=== PATIENT | male | born 1945 | race Caucasian/White ===

== ENCOUNTER → 2017-05-28 10:33 | Outpatient (CLI) | payer MEDICARE, OTHER, SELFPAY ==
[2017-05-28 12:15] LABS: AST(SGOT) 23 U/L (15-37); Alanine Aminotransfer ALT/SGPT 21 U/L (16-61); Albumin, Serum 3.7 g/dL (3.2-5.0); Alkaline Phosphatase 186 U/L (45-117); Bilirubin, Direct 0.34 mg/dL (0.00-0.30); Globulin 4.2 g/dL (2.2-4.2); Protein, Total 7.9 g/dL (6.4-8.2); T4 Free Direct 1.34 ng/dL (0.76-1.46); Thyroid Stim Hormone (TSH) 3.48 uIU/mL (0.358-3.74)
== END ==
PROVIDERS: Family Provider Family Medicine; PCP Family Medicine; Visit Provider Nurse Practitioner Family
DX: I48.0 Paroxysmal atrial fibrillation (principal); Z79.899 Other long term (current) drug therapy
CPT/HCPCS: 36415; 80076; 84439; 84443

== ENCOUNTER → 2017-06-06 11:50 | Outpatient (CLI) | payer MEDICARE, OTHER, SELFPAY ==
[2017-06-06 13:19] LABS: Hematocrit 38.3 % (40-54); Hemoglobin 12.6 g/dl (13.0-16.5); Mean Corp Hgb Conc 32.9 g/gl (32-36); Mean Corpuscular Hgb 29.6 pg (27.0-32.0); Mean Corpuscular Volume 89.9 fL (80-94); Mean Platelet Vol. 10.3 fl (6.2-12.0); Platelet Count 148 K/mm3 (150-450); RBC Distribution Width SD 45.6 fl (35.1-43.9); Red Blood Count 4.26 M/mm3 (4.6-6.2); White Blood Count 8.8 K/mm3 (4.4-11.0)
[2017-06-06 13:34] LABS: Scan Indicated on CBC? Y/N NO
[2017-06-06 13:42] LABS: Anion Gap 10 (5-15); BUN 37 mg/dL (7-18); BUN/Creat Ratio 23.1 RATIO (10-20); Calcium,Total 9.5 mg/dL (8.5-10.1); Chloride 95 mmol/L (98-107); EST Glomerular Filtration Rate 45 mL/min (>60); Est Glom Filt Rate - Afr Amer 55 mL/min (>60); Glucose 123 mg/dL (74-106); Potassium 2.9 mmol/L (3.5-5.1); Sodium Level 136 mmol/L (136-145)
[2017-06-06 13:48] LABS: BNP,B-Type NATRIURETIC PEPTIDE 415.2 pg/mL (0-100)
== END ==
PROVIDERS: Family Provider Family Medicine; PCP Family Medicine; Visit Provider Nurse Practitioner Family
DX: I25.5 Ischemic cardiomyopathy (principal); I50.22 Chronic systolic (congestive) heart failure; R06.02 Shortness of breath
CPT/HCPCS: 36415; 80048; 83880; 85027

== ENCOUNTER → 2017-06-11 08:50 | Outpatient (CLI) | payer MEDICARE, OTHER, SELFPAY ==
--- NOTE | 2017-06-11 10:56 | PFT ---
INTRODUCTION: The patient is a 72-year-old male currently under the care of Marky soares NP that presents for pulmonary function testing secondary to a diagnosis of atrial fibrillation. Respiratory therapy reports good patient effort and reports no other concerns. Bronchodilators were used during testing. INTERPRETATION: Forced expiration spirometry demonstrates no evidence of a large airways obstructive ventilatory defect. There was no significant response to aerosolized bronchodilators. Spirogram's are of good quality and plateau normally. Body plethysmography was performed and reveals a decreased TLC to 3.3 L, 58% of predicted, indicative of a severe restrictive ventilatory defect. The remainder of the lung volumes are symmetrically reduced. Diffusing capacity by single breath CO is severely reduced at 39% of predicted. IMPRESSION: These pulmonary function studies demonstrate the presence of a severe restrictive ventilatory defect with a proportionate severe reduction in diffusing capacity. This could be related to an underlying interstitial lung process and/or pulmonary vascular disorder. Dedicated CT chest and echocardiogram should be obtained.
== END ==
PROVIDERS: Family Provider Family Medicine; PCP Family Medicine; Visit Provider Nurse Practitioner Family
DX: I48.0 Paroxysmal atrial fibrillation (principal); I25.810 Atherosclerosis of coronary artery bypass graft(s) without angina pectoris; I10 Essential (primary) hypertension; E78.5 Hyperlipidemia, unspecified; Z79.899 Other long term (current) drug therapy
CPT/HCPCS: 94060; 94726; 94729

== ENCOUNTER → 2017-07-24 09:32 | Outpatient (CLI) | payer MEDICARE, OTHER, SELFPAY ==
[2017-07-24 10:28] LABS: Anion Gap 7 (5-15); BUN 34 mg/dL (7-18); BUN/Creat Ratio 23.8 RATIO (10-20); Calcium,Total 9.1 mg/dL (8.5-10.1); Chloride 104 mmol/L (98-107); Creatinine, Serum 1.43 mg/dL (0.70-1.30); EST Glomerular Filtration Rate 52 mL/min (>60); Est Glom Filt Rate - Afr Amer 63 mL/min (>60); Glucose 80 mg/dL (74-106); Potassium 3.8 mmol/L (3.5-5.1); Sodium Level 138 mmol/L (136-145)
== END ==
PROVIDERS: Family Provider Family Medicine; PCP Family Medicine; Visit Provider Nurse Practitioner Family
DX: I50.22 Chronic systolic (congestive) heart failure (principal); E87.6 Hypokalemia
CPT/HCPCS: 36415; 80048

== ENCOUNTER → 2018-06-24 10:56 | Outpatient (CLI) | payer MEDICARE, OTHER, SELFPAY ==
[2018-06-24 10:06] VITALS: BMI 28.1
[2018-06-24 12:53] LABS: AST(SGOT) 16 U/L (15-37); Alanine Aminotransfer ALT/SGPT 16 U/L (16-61); Albumin, Serum 3.9 g/dL (3.2-5.0); Alkaline Phosphatase 99 U/L (45-117); Anion Gap 7 (5-15); BNP,B-Type NATRIURETIC PEPTIDE 185.8 pg/mL (0-100); BUN 34 mg/dL (7-18); BUN/Creat Ratio 21.7 RATIO (10-20); Bilirubin, Direct 0.25 mg/dL (0.00-0.30); Calcium,Total 8.6 mg/dL (8.5-10.1); Chloride 98 mmol/L (98-107); Cholesterol 150 mg/dL (200); Creatinine, Serum 1.57 mg/dL (0.70-1.30); EST Glomerular Filtration Rate 46 mL/min (>60); Est Glom Filt Rate - Afr Amer 56 mL/min (>60); Globulin 3.8 g/dL (2.2-4.2); Glucose 219 mg/dL (74-106); High Density Lipoprotein 48 mg/dL; Magnesium 1.9 mg/dL (1.6-2.6); Potassium 3.3 mmol/L (3.5-5.1); Protein, Total 7.7 g/dL (6.4-8.2); Sodium Level 136 mmol/L (136-145); Thyroid Stim Hormone (TSH) 2.02 uIU/mL (0.358-3.74); Triglycerides 114 mg/dL; Very Low Density Lipoprotein 23 mg/dL (5-40)
== END ==
PROVIDERS: Family Provider Family Medicine; PCP Family Medicine; Referring Provider Internal Medicine Cardiovascular Disease; Visit Provider Internal Medicine Cardiovascular Disease
DX: I11.0 Hypertensive heart disease with heart failure (principal); I50.22 Chronic systolic (congestive) heart failure; E78.00 Pure hypercholesterolemia, unspecified; Z95.810 Presence of automatic (implantable) cardiac defibrillator
CPT/HCPCS: 36415; 80048; 80061; 80076; 83735; 83880; 84443

== ENCOUNTER → 2018-07-16 | Outpatient (CLI) | payer MEDICARE, OTHER, SELFPAY ==
[2018-06-24 10:06] VITALS: BMI 28.1
[2018-07-16 11:35] LABS: Anion Gap 9 (5-15); BUN 14 mg/dL (7-18); BUN/Creat Ratio 11.6 RATIO (10-20); Calcium,Total 9.1 mg/dL (8.5-10.1); Chloride 102 mmol/L (98-107); Creatinine, Serum 1.21 mg/dL (0.70-1.30); EST Glomerular Filtration Rate 62 mL/min (>60); Est Glom Filt Rate - Afr Amer 76 mL/min (>60); Glucose 138 mg/dL (74-106); Sodium Level 137 mmol/L (136-145)
== END | disposition home or self-care (01) ==
LOC: LAB 10:30
PROVIDERS: Family Provider Family Medicine; PCP Family Medicine; Referring Provider Internal Medicine Cardiovascular Disease; Visit Provider Internal Medicine Cardiovascular Disease
DX: E87.6 Hypokalemia (principal); I50.22 Chronic systolic (congestive) heart failure
CPT/HCPCS: 36415; 80048

== ENCOUNTER → 2018-07-17 | Outpatient (CLI) | payer MEDICARE, OTHER, SELFPAY ==
[2018-06-24 10:06] VITALS: BMI 28.1
--- NOTE | 2018-07-17 07:54 | ECHOCS_ITS ---
Reason For Study: DYSPNEA/SOB Procedure This was a 2D Doppler, Color Flow transthoracic echocardiogram. Exam performed in department. Left Ventricle Normal LV size. Mild concentric left ventricular hypertrophy. The estimated ejection fraction is 45 %. Mild to moderate segmental systolic dysfunction (see wall motion). Stage 2 diastolic dysfunction. Posterior-Basal: Akinetic. Mid-Posterior: Hypokinetic. Basal inferoseptal: Hypokinetic. Mid- inferoseptal : Hypokinetic. The rest of the wall segments are normal. Right Ventricle Normal RV size. ICD or pacer leads identified within the right ventricle. Normal systolic function. Atria The left atrium is mildly enlarged. Normal right atrium. Mitral Valve Normal mitral valve. Tricuspid Valve Normal tricuspid valve. Mild to moderate (1-2+) tricuspid valve insufficiency. Pulmonary artery systolic pressure is 44 mmHg. Mild pulmonary hypertension. Aortic Valve Normal aortic valve. Pulmonic Valve Normal pulmonic valve. Great Vessels Normal aortic root. The pulmonary artery is normal size. Normal inferior vena cava. Pericardium/Pleural No pericardial effusion. Medication 22 gauge I.V. with prn adaptor inserted into right arm. Diluted definity 3.5ml given slow IV push to enhance endocardial definition. MMode/2D Measurements & Calculations LVIDd: 4.7 cm IVSd: 1.2 cm LVOT diam: 2.1 cm LVIDs: 3.6 cm LVPWd: 1.2 cm RVDd: 5.0 cm FS: 23.5 % LVOT area: 3.4 cm2 Ao root diam: 3.3 cm LAV(MOD-bp): 79.0 ml LVAd ap4: 34.3 cm2 LAV(MOD-bp) Indexed: 40.4 ml/m2 EDV(MOD-sp4): 111.1 ml LAV(MOD-sp2): 85.5 ml EDV(sp4-el): 114.7 ml LAV(MOD-sp4): 70.0 ml LVAs ap4: 24.2 cm2 ESV(MOD-sp4): 67.0 ml ESV(sp4-el): 66.5 ml EF(MOD-sp4): 39.7 % EF(sp4-el): 42.0 % SV(MOD-sp4): 44.1 ml SV(sp4-el): 48.2 ml LA A4 area: 22.2 cm2 LA dimension(2D): 5.3 cm RA A4 area: 17.1 cm2 Time Measurements MV dec time: 0.15 sec Doppler Measurements & Calculations MV E max mumtaz: 123.3 cm/sec Lat Peak E' Mumtaz: 6.1 cm/sec Med Peak E' Mumtaz: 5.8 cm/sec MV A max mumtaz: 70.6 cm/sec E/E' lat: 20.3 E/E' med: 21.4 MV E/A: 1.7 Ao V2 max: 243.9 cm/sec LV V1 max: 81.4 cm/sec SV(LVOT): 63.8 ml Ao max P.9 mmHg LV V1 max P.7 mmHg Ao V2 mean: 177.8 cm/sec LV V1 mean P.4 mmHg Ao mean P.0 mmHg LV V1 mean: 55.7 cm/sec Ao V2 VTI: 56.7 cm LV V1 VTI: 18.7 cm GILSON(I,D): 1.1 cm2 GILSON(V,D): 1.1 cm2 PA V2 max: 84.0 cm/sec PI end-d mumtaz: 117.1 cm/sec TR max mumtaz: 328.9 cm/sec TR max P.3 mmHg Interpretation Summary Normal LV size. Mild concentric left ventricular hypertrophy. The estimated ejection fraction is 45 %. Mild to moderate segmental systolic dysfunction (see wall motion). Stage 2 diastolic dysfunction. The left atrium is mildly enlarged. Pulmonary artery systolic pressure is 44 mmHg. Mild pulmonary hypertension. ICD or pacer leads identified within the right ventricle. Compared to prior study, there is no significant change. Ordering Physician: Tien Onofre Referring Physician: INDIGO LEMUS Performed By: Shanice Joiner RDCS
== END | disposition home or self-care (01) ==
LOC: CVS 07:50
PROVIDERS: Family Provider Family Medicine; PCP Family Medicine; Referring Provider Internal Medicine Cardiovascular Disease; Visit Provider Internal Medicine Cardiovascular Disease
DX: I38 Endocarditis, valve unspecified (principal)
CPT/HCPCS: 93306; Q9957; A4216; C8929

== ENCOUNTER 2018-09-19 08:18 | Inpatient (IN) | payer MEDICARE, OTHER, SELFPAY ==
[2018-06-24 10:06] VITALS: BMI 28.1
[2018-09-19] VITALS (14 sets, daily range): BP systolic 118–153; BP diastolic 71–98; PULSE 53–168; RESP 16–22; TEMP 36.6–37; O2SAT 95–98; BMI 29.7; BMI 29.8; BMI 28.8; BMI 28.9
--- NOTE | 2018-09-19 08:27 | EKG12_ITS ---
Test Reason : AM EKG Blood Pressure : / mmHG Vent. Rate : 093 BPM Atrial Rate : 258 BPM P-R Int : 000 ms QRS Dur : 126 ms QT Int : 402 ms P-R-T Axes : 000 -10 118 degrees QTc Int : 499 ms Atrial fibrillation with premature ventricular or aberrantly conducted complexes Non-specific intra-ventricular conduction block Inferior infarct (cited on or before 20-OCT-2016) Abnormal ECG When compared with ECG of 21-OCT-2016 05:25, Atrial fibrillation has replaced Sinus rhythm Vent. rate has increased BY 38 BPM Nonspecific T wave abnormality no longer evident in Anterior leads Confirmed by SAROJ SANCHEZ, UBALDO ([id number]), food editor ANIA SALAS ([id number]) on 09/23/2018 8:08:25 AM Referred By: QI Confirmed By:UBALDO KYLE MD
--- NOTE | 2018-09-19 08:27 | RAD_ITS ---
STUDY: X-RAY CHEST REASON FOR EXAM: Male, 73 years old. TECHNIQUE: 2 views COMPARISON: October 21, 2016 FINDINGS: The heart is mildly enlarged. There is bilateral pleural effusion more than seen before. Minimal linear atelectasis is noted in the right lower lung field. The upper lung suarez are clear. A permanent pacemaker is noted with single lead in position. Multiple metallic stitches along the sternum from previous surgery. No evidence of pneumothorax noted. The visualized bones are osteoporotic to some extent. RAD/Chest PA and Lateral IMPRESSION: Mild cardiomegaly with minimal bilateral pleural effusion. No significant change noted since the previous study. Electronically Signed: Philip Nolan, at 9:36 EDT Tel , Service support ,
--- NOTE | 2018-09-19 08:45 | ED.VISSUMM ---
- ER Visit Summary Date of Service: 09/19/18 Chief Complaint: Dyspnea History of Present Illness: The patient is a 73 M who presents emergency department via EMS with complaint of dyspnea. This is been progressive for the past several days. He notes a cough with clear to yellow phlegm. He states that he had this before and is always gotten a Z-Isauro from his primary care physician. However for the past 6 months he has been okay. He notes his had coronary artery bypass surgery. He denies a history of atrial fibrillation. (The patient has been on amiodarone in the past and carries a diagnosis of paroxysmal atrial fibrillation). Today he was going to go fishing but found that he could not walk down the hallway to his garage without having to stop and catch his breath. He denies any fevers. He states that night he has been sitting in front of the window and believes he has pneumonia. Non-smoker. Last echocardiogram in June 2018 showed ejection fraction 45%. He is on Plavix. He ran out of his metolazone. Physical Examination: Afebrile 98.4 heart rate 104 respirations are 18 pulse ox 93% on room air blood pressure 142/98 Gen: Well-nourished well-developed Head: Normocephalic atraumatic Eyes: Perrl EOMI ENT: TMs clear no rhinorrhea moist mucous membranes Neck: Supple no lymphadenopathy no JVD nontender CVS: Irregularly irregular tachycardic rhythm no murmurs normal S1-S2 Respiratory: No distress clear to auscultation bilaterally chest nontender Abdomen: Soft nontender nondistended normal bowel sounds no masses Back: Nontender Skin: Normal color no rash Extremity: Nontender 1+ lower extremity symmetric edema Neuro: alert orientated ?3 CN II-XII intact normal strength sensation Psych: Normal affect normal mood Test Results: EKG shows atrial fibrillation at a rate of 110 without concerning features of ACS or ectopy. Beta [place] peptide is mildly elevated in the 200s. Chest x-ray showed some significant chronic changes possibly new pulmonary congestion. Troponin is 0.09. CT Penelope of the chest is negative for pulmonary embolism. Emergency Department Course and Treatment: Patient has received IV Lasix. I found some documentation that he was in a normal sinus rhythm and somewhere he is in A. fib. I suspect that he has found himself in atrial fibrillation now out of his metolazone which is resulted in heart failure. Given his A. fib with RVR and evidence of heart failure and his tachypnea plan will be admission for diuresis. Impression: 1. Congestive heart failure 2. Paroxysmal atrial fibrillation This note was generated with [employer] dictation software. It may contain incorrect words, spelling, and punctuation that were not noted in review of the chart prior to signing ED Disposition - Plan for ED Patient: Referrals: Pedro Luis Shin MD [Primary Care Provider] -
[2018-09-19 08:56] LABS: Absolute Lymphocyte Count 0.62 X10^3/ul (0.83-4.51); Absolute Neutrophil Count 7.5 X10^3/uL (2.0-7.7); Basophil# 0.02 X10^3/uL; Basophil% 0.2 % (0-1); Eosinophil# 0.11 X10^3/uL; Eosinophils% 1.3 % (0-5); Hematocrit 37.8 % (40-54); Hemoglobin 13.1 g/dl (13.0-16.5); Lymphocyte # 0.62 X10^3/ul (4.0); Lymphocyte % 7.1 % (19-41); Mean Corp Hgb Conc 34.7 g/gl (32-36); Mean Corpuscular Hgb 31.6 pg (27.0-32.0); Mean Corpuscular Volume 91.1 fL (80-94); Mean Platelet Vol. 10.4 fl (6.2-12.0); Monocyte# 0.51 X10^3/uL; Monocyte% 5.8 % (0-10); Neutrophil # 7.51 X10^3/uL (2.7-7.7); Neutrophil % 85.4 % (47-70); Platelet Count 174 K/mm3 (150-450); RBC Distribution Width CV 13.4 % (11.6-14.6); RBC Distribution Width SD 43.8 fl (35.1-43.9); Red Blood Count 4.15 M/mm3 (4.6-6.2); White Blood Count 8.8 K/mm3 (4.4-11.0)
[2018-09-19 08:57] LABS: POSITIVE COUNT NO; POSITIVE DIFFERENTIAL NO; POSITIVE MORPHOLOGY NO
[2018-09-19 09:14] LABS: BUN 24 mg/dL (7-18); Creatinine, Serum 1.16 mg/dL (0.70-1.30); Estimated Creatinine Clearance 54.87 ml/min; Glucose 186 mg/dL (74-106)
[2018-09-19 09:15] LABS: ALB/GLOB Ratio 0.9 RATIO (0.9-2.4); AST(SGOT) 25 U/L (15-37); Alanine Aminotransfer ALT/SGPT 15 U/L (16-61); Albumin, Serum 3.5 g/dL (3.2-5.0); Alkaline Phosphatase 76 U/L (45-117); Anion Gap 4 (5-15); BUN/Creat Ratio 20.7 RATIO (10-20); Calcium,Total 8.8 mg/dL (8.5-10.1); Chloride 105 mmol/L (98-107); EST Glomerular Filtration Rate 66 mL/min (>60); Est Glom Filt Rate - Afr Amer 79 mL/min (>60); Globulin 3.9 g/dL (2.2-4.2); Potassium 4.7 mmol/L (3.5-5.1); Protein, Total 7.4 g/dL (6.4-8.2); Sodium Level 135 mmol/L (136-145)
--- NOTE | 2018-09-19 10:00 | CT_ITS ---
STUDY: CTA CHEST REASON FOR EXAM: Male, 73 years old. Dyspnea. RADIATION DOSAGE (If Supplied By Facility): CTDIvol = ( 17.22 ) mGy, DLP = ( 505.37 ) mGycm TECHNIQUE: The examination was performed with the intravenous administration of 100 IV Isovue 300. Post-processing of the angiographic images was performed, with multiplanar reformation and 3D reconstruction. Individualized dose optimization techniques were used for this CT. COMPARISON: September 16, 2015. FINDINGS: HEART: Cardiomegaly. Cardiac device. Coronary artery disease/stenting. CABG. Median sternotomy. Asymmetric left jugular vein. Mild element of right heart failure with of contrast reflux into the hepatic IVC and hepatic veins. AORTA/GREAT VESSELS: Adequate contrast enhancement. No aortic dissection. No aortic aneurysm. PULMONARY ARTERIES: Adequate contrast enhancement. No acute pulmonary embolism. No pulmonary arterial hypertension. LUNGS/AIRWAYS: Extensive areas of atelectasis/scarring. Left apex granuloma. Pulmonary vascular congestion with areas of air trapping. Rounded right lung base airspace disease (axial image 64 series 2) with region of interest measuring approximately 5.5 cm. Small bilateral pleural effusions. No pneumothorax. Left pleural calcifications. No additional suspicious lung nodules given the extensive parenchymal disease. MEDIASTINUM/THYROID: No pneumomediastinum. Normal thyroid. Enlarged right paratracheal lymph node measuring 1.6 cm (axial image 188 series 2). Enlarged prevascular lymph nodes measuring up to 1.8 cm (axial image 155). Additional mediastinal lymph nodes. SOFT TISSUES: No acute process. Left shoulder lipoma (axial image 219 series 2 and coronal image 150 series 601). OSSEOUS STRUCTURES: Diffuse mild osteopenia. No acute fracture. No dislocation. UPPER ABDOMEN/ESOPHAGUS: Stable left adrenal nodule measuring 1.7 cm (axial image 4 series 2). Pancreatic atrophy. Hepatic steatosis. No focal hepatic lesions. CT/CTA Chest W/WO Contrast IMPRESSION: No acute pulmonary embolism, aortic dissection or aortic aneurysm Right heart failure with mild CHF/fluid overload Cardiomegaly with cardiovascular disease, cardiac surgery and cardiac device Nonspecific enlarged mediastinal lymph nodes (correlate medical history) Small bilateral pleural effusions with left pleural calcifications (correlate prior infectious/inflammatory pleural process) Indeterminant rounded right lower lung airspace disease measuring up to 5.5 cm (suspected rounded atelectasis versus potential neoplasm; short-term [address] recommended to document resolution) Electronically Signed: Mando Cho DO at 13:01 EDT Tel , Service support ,
[2018-09-19 11:04] LABS: BNP,B-Type NATRIURETIC PEPTIDE 218.6 pg/mL (0-100)
[2018-09-19] MEDS: Furosemide 100 MG/10 ML Vial 80 MG IV (13:27)
--- NOTE | 2018-09-19 13:43 | HP.PCM_ITS ---
History of Present Illness Date of Admission: 09/19/18 Chief Complaint: Dyspnea The patient is a 73 y/o M w/ PMHx: PAF, CAD s/p PCI s/p JOSE ENRIQUE-SVG-D1 09/20/15 @ [facility], LHC X 3 stents @ [facility] 02/14 Proximal mid & distal SVG to first DX of LAD; CABG x3 EASLEY to LAD, SVG to the LCX, SVG to the RCA 1998, HTN, HLD, Chronic Systolic CHF, Ischemic Cardiomyopathy s/p AICD for history of VT, Diabetes mellitus type II, EtOH Abuse who presents to the [facility] ED on 09/19/18 with history of running out of his metolazone to proximal he 3 days prior, noting that he actually throughout a prescription with noted sensation of onset palpitations intermittently over the last 3 days, progressively worsening dyspnea, increased lower extremity edema as well as onset of orthopnea. Work-up in the ED included T 98.4, heart rate initially 104 with improvement 72, BP 142/98, respiratory rate 20, 95% on 2 L nasal cannula, CBC with WBC 8.8, hemoglobin 13.1, platelet 174 with mild left shift, CMP with sodium 134, BUN/Cr 24/1.16, glucose 186, trop 0.095, BNP 218.6, chest x-ray with mild cardiomegaly with minimal bilateral pleural effusions noted, CTPA w/ no acute evidence of pulmonary emboli, aortic dissection or aortic aneurysm with right heart failure with mild CHF fluid overload status with cardiomegaly with cardiovascular disease and evidence of prior cardiac surgery as well as cardiac device, nonspecific enlarged mediastinal lymph nodes, small bilateral pleural effusions with left pleural calcifications, indeterminate rounded right lower lung airspace disease measuring up to 5.5 cm suspected round atelectasis versus potential neoplasm. In the ED patient ministered Lasix 80 mg IV x1. Past Medical History Past Medical History (Chronic Problems): Chronic Problems (Last Updated 07/17/18 @ 17:10 by Sarika Bridges) Essential (primary) hypertension (Chronic) Non-rheumatic tricuspid valve insufficiency (Chronic) Secondary pulmonary arterial hypertension (Chronic) Ischemic cardiomyopathy (Chronic) half-way current use of amiodarone (Chronic) Paroxysmal atrial fibrillation (Chronic) Atherosclerosis of coronary artery bypass graft without angina pectoris (Chronic) [id number] 09/20/15 @ [facility], [facility] X 3 stents @ [facility] 02/14: Proximal mid & distal SVG to first DX of LAD; CABG x3 EASLEY to LAD, SVG to the LCX, SVG to the RCA 1997 Chronic systolic congestive heart failure (Chronic) Ventricular tachycardia (Chronic) HLD (hyperlipidemia) (Chronic) ICD (implantable cardioverter-defibrillator) in place (Chronic) 03/20/12 Implantation of cardiac defibrillator for V-tach NSTEMI (non-ST elevated myocardial infarction) (Chronic) Non-ST OK April 2012 & August 2015 Medical History: Medical History (Last Updated 07/17/18 @ 17:10 by Sarika Bridges) Essential (primary) hypertension (Chronic) I10 Non-rheumatic tricuspid valve insufficiency (Chronic) I36.1 Secondary pulmonary arterial hypertension (Chronic) I27.21 Ischemic cardiomyopathy (Chronic) 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, [facility] X 3 stents @ [facility] 02/14: Proximal mid & distal SVG to first DX of LAD; CABG x3 EASLEY to LAD, SVG to the LCX, SVG to the RCA 1997 Chronic systolic congestive heart failure (Chronic) I50.22 Ventricular tachycardia (Chronic) I47.2 HLD (hyperlipidemia) (Chronic) E78.5 ICD (implantable cardioverter-defibrillator) in place (Chronic) Z95.810 03/20/12 Implantation of cardiac defibrillator for V-tach NSTEMI (non-ST elevated myocardial infarction) (Chronic) I21.4 Non-ST OK April 2012 & August 2015 Alcohol abuse F10.10 GERD (gastroesophageal reflux disease) K21.9 RITESH (obstructive sleep apnea) G47.33 Peripheral vascular disease I73.9 Type 2 diabetes mellitus E11.9 Alcohol abuse (Inactive) F10.10 Atrial fibrillation (Inactive) I48.91 CAD (coronary artery disease) (Inactive) I25.10 Cardiac dysrhythmia (Inactive) I49.9 Cardiomyopathy (Inactive) I42.9 Congestive heart failure (Inactive) I50.9 GERD (gastroesophageal reflux disease) (Inactive) K21.9 Pleural effusion (Inactive) J90 Sleep apnea (Inactive) G47.30 Allergies lisinopril Adverse Reaction (Verified 09/19/18 08:23) cough Home Medications: Ambulatory Orders Medication Instructions Recorded Insulin Detemir [Levemir FlexPen] 4 units SC QHS 02/16/16 omeprazole 20 mg capsule,delayed 20 mg PO DAILY PRN 05/28/17 release magnesium oxide 400 mg (241.3 mg 400 mg PO DAILY #90 tab 11/21/17 magnesium) tablet metoprolol succinate ER 50 mg 50 mg PO BID #180 tab 01/17/18 tablet,extended release 24 hr atorvastatin 80 mg tablet 80 mg PO QHS #90 tab 04/16/18 potassium chloride ER 20 mEq 60 meq PO DAILY #90 tab 06/24/18 tablet,extended release clopidogrel 75 mg tablet 75 mg PO DAILY #90 tab 09/01/18 metolazone 2.5 mg tablet 2.5 mg PO DAILY PRN #30 tab 09/17/18 Amlodipine Besylate [Norvasc] 5 mg PO DAILY 09/19/18 Aspirin [Aspir-Low] 81 mg PO DAILY 09/19/18 Furosemide [Lasix] 40 mg PO SUMOWEFRSA 09/19/18 Insulin Glargine,Hum.rec.anlog 22 unit SQ DAILY 09/19/18 [Basaglar Kwikpen U-100] Losartan Potassium [Cozaar] 25 mg PO DAILY 09/19/18 Surgical History: Surgical History (Last Updated 07/17/18 @ 17:10 by Sarika Bridges) History of coronary artery stent placement (Resolved) Onset Date: 01/2016 Z95.5 [id number] 09/20/15 @ [facility], Proximal mid & distal SVG to first D2 01/2016 H/O coronary artery bypass surgery (Resolved) Onset Date: 1997 Z95.1 CABG x3 EASLEY to LAD, SVG to the LCX, SVG to the RCA 1997 History of thoracentesis Z98.890 Hx of CABG (Inactive) CABG X 3 vessels 1997, Dr. Grider, EASLEY to LAD, SVG to LCX, SVG to RCA S/P PTCA (percutaneous transluminal coronary angioplasty) (Inactive) Z98.61 [id number] 09/20/15 @ [facility], [facility] X 3 stents @ [facility] 02/14: Proximal mid & distal SVG to first DX of LAD Surgical History: angioplasty, coronary bypass surgery, pacemaker implantation, - - AICD. Psychiatric History: No pertinent psych hx Lives: Spouse/ Significant Other Smoking Status: Never smoker Tobacco Use: Non-smoker Alcohol: Heavy - Per report history of alcohol abuse, patient notes only social drinking. Drugs: None - *Family History Paternal History Items: - - Patient notes that his father passed from complications secondary to from description ruptured AAA. Maternal History Items: - - Patient notes a maternal family history of possibly com plications from brain aneurysm but unclear. Review of Systems Constitutional: Reports: Malaise, Weakness, Fatigue. Denies: Chills, Fever, Weight Change HEENT: Denies: Head Aches, Sinus Congestion, Sinus Drainage Cardiovascular: Reports: Edema, Orthopnea, Palpitations. Denies: Chest Pain, Chest Pressure, Chest Tightness, Light Headedness Respiratory: Reports: Cough, Shortness of Breath, Shortness of breath at rest, Shortness of breath upon exertion. Denies: Sputum production Gastrointestinal: Denies: Abdominal Pain, Nausea, Vomiting Genitourinary: Denies: Dysuria Musculoskeletal: Reports: Joint Pain. Denies: Joint Tenderness Skin: Denies: Rash, Wounds Neurological: Denies: Numbness, Tingling, Focal weakness Psychiatric: Denies: Anxiety, Depression, Homicidal Ideations, Suicidal Ideations Hematologic/ Lymphatic: Reports: Anemia, Easy Bruising, Easy Bleeding VTE Information - Inpt Only VTE Present on Admission: No VTE Mechan Device Prophylaxis: SCD's VTE Pharm Prophylaxis ordered?: Yes Subjective: Seated upright in ED bed, fatigued appearance, notes improved since initial presentation status post IV Lasix administration. Objective: Physical Examination: General: awake, alert, oriented x 3 and cooperative, seated upright in the ED bed, fatigued appearance, notes feeling improved since initial presentation. Skin: normal color, turgor, no icterus, cyanosis, occasional very staged ecchymoses to the extremities. HEENT: AT/NC, EOMI, PERRLA, MMM, no carotid bruits, + JVD noted. Lungs: Diminished breath sounds throughout, greater bilateral bases, improving effort status post initiation of diuresis, notable rales bases to midlung bilaterally, no wheezing. Heart: Irregular, rate controlled; no gallop, rub audible. Abdomen: soft, overweight, NTTP, ND, normal BS, no HSM. Extremities: no cyanosis, clubbing, bilateral lower extremity ankle to proximal juarez pitting edema. Neurological: patient awake, alert, oriented x 3; cognitive function intact; pupils equally reactive to light and accomodation; cranial nerves II-XII grossly normal, moving all 4 extremities, no focal deficits, strength moderately to severely global decrease secondary to acute presentation. Psychiatric: affect appears fatigued, no acute evidence of depressive or anxiety feelings. - Physical Exam Vital Signs Temp Pulse Resp BP Pulse Ox 98.4 F 72 16 144/86 H 95 09/19/18 08:18 09/19/18 13:00 09/19/18 13:00 09/19/18 13:00 09/19/18 13:00 Oxygen Flow Rate (L/min) 2 Oxygen Delivery Method Nasal Cannula Weight: 195 lb 14.4 oz Body Mass Index (BMI) 29.7 Laboratory Tests Past 24 Hrs 09/19/18 09/19/18 09/19/18 08:45 08:45 08:45 WBC 8.8 RBC 4.15 L Hgb 13.1 Hct 37.8 L MCV 91.1 MCH 31.6 MCHC 34.7 RDW 13.4 RDW Differential 43.8 Plt Count 174 MPV 10.4 Immature Gran % (Auto) 0.200 Neut % (Auto) 85.4 H Lymph % (Auto) 7.1 L Hendricks % (Auto) 5.8 Eos % (Auto) 1.3 Baso % (Auto) 0.2 Absolute Neuts (auto) 7.5 Absolute Lymphs (auto) 0.62 L Total Counted Not Reportable Sodium 135 L Potassium 4.7 Chloride 105 Carbon Dioxide 26.0 Anion Gap 4 L BUN 24 H Creatinine 1.16 Estim Creat Clear Calc 54.87 Est GFR (MDRD) Af Amer 79 Est GFR (MDRD) Non-Af 66 BUN/Creatinine Ratio 20.7 H Glucose 186 H Calcium 8.8 Total Bilirubin 1.10 H AST 25 ALT 15 L Alkaline Phosphatase 76 Troponin I 0.095 H B-Natriuretic Peptide 218.6 H Total Protein 7.4 Albumin 3.5 Globulin 3.9 Albumin/Globulin Ratio 0.9 Assessment/Plan All Active Problems (Last Updated 07/17/18 @ 17:10 by Sarika Bridges) History of coronary artery stent placement (Resolved 01/2016) H/O coronary artery bypass surgery (Resolved 1997) The patient is a 73 y/o M w/ PMHx: PAF, CAD s/p PCI s/p JOSE ENRIQUE-SVG-D1 09/20/15 @ [facility], LHC X 3 stents @ [facility] 02/14 Proximal mid & distal SVG to first DX of LAD; CABG x3 EASLEY to LAD, SVG to the LCX, SVG to the RCA 1997, HTN, HLD, Chronic Systolic CHF, Ischemic Cardiomyopathy s/p AICD for history of VT, Diabetes mellitus type II, EtOH Abuse who presents to the [facility] ED on 09/19/18 with history of running out of his metolazone to proximal he 3 days prior, noting that he actually throughout a prescription with noted sensation of onset palpitations intermittently over the last 3 days, progressively worsening dyspnea, increased lower extremity edema as well as onset of orthopnea. (1) Acute Decompensated Systolic CHF w/ Ischemic Cardiomyopathy: Work-up in the ED included T 98.4, heart rate initially 104 with improvement 72, BP 142/98, respiratory rate 20, 95% on 2 L nasal cannula, CBC with WBC 8.8, hemoglobin 13.1, platelet 174 with mild left shift, CMP with sodium 134, BUN/Cr 24/1.16, glucose 186, trop 0.095, BNP 218.6, chest x-ray with mild cardiomegaly with minimal bilateral pleural effusions noted, CTPA w/ no acute evidence of pulmonary emboli, aortic dissection or aortic aneurysm with right heart failure with mild CHF fluid overload status with cardiomegaly with cardiovascular disease and evidence of prior cardiac surgery as well as cardiac device, nonspecific enlarged mediastinal lymph nodes, small bilateral pleural effusions with left pleural calcifications, indeterminate rounded right lower lung airspace disease measuring up to 5.5 cm suspected round atelectasis versus potential neoplasm. Patient administered IV lasix in the ED, will admit to PCU, maintain on cardiac telemetry obtain cardiac enzyme series, obtain serial EKGs, continue IV lasix diuresis, monitor I/Os, maintain on intake restriction, continue medical therapy w/ asa, statin, BB, ARB as well as noted IV Lasix with metolazone. Will obtain TSH and magnesium level. Most recent ECHO noted 07/17/18. Cardiology consulted, pending. PRN morphine to decrease afterload, continue oxygen supplementation, if necessary will position w/ upright position with legs off bed to decrease preload. (2) PAF: Patient normally in sinus rhythm, now in atrial fibrillation, rate con trolled, possible onset per patient discussion with onset of dyspnea and decompensated CHF is noted, cardiology consulted, pending, continue home regimen metoprolol regimen. Not anticoagulated, maintained as noted on aspirin and Plavix, unclear specific reason, given presentation and high chads score will place on therapeutic Lovenox pending cardiology evaluation. (3) CAD: CAD s/p PCI s/p JOSE ENRIQUE-SVG-D1 09/20/15 @ [facility], C X 3 stents @ [facility] 02/14 Proximal mid & distal SVG to first DX of LAD; CABG x3 EASLEY to LAD, SVG to the LCX, SVG to the RCA 1998, continue home aspirin, Plavix, statin, metoprolol, losartan. (4) Hypertension: Continue home regimen including Norvasc, losartan, metoprolol, metolazone, IV Lasix as noted, PRN hydralazine. (5) Hyperlipidemia: Continue home statin regimen. AM FLP. (6) Diabetes mellitus type II: Hold oral home regimen, continue home insulin regimen, ADA diet, accu checks w/ ISS. (7) Possible alcohol abuse: Patient notes only occasional intake however chart clearly states alcohol abuse history. Will maintain on CIWA protocol, MVI, thiamine and folic acid. Will obtain alcohol level and urine drug screen. (8) Diabetes mellitus type II: Hold oral home regimen, continue home insulin regimen, ADA diet, accu checks w/ ISS. (9) Hx VT: Concurrent history of reduced EF, ischemic cardia myopathy, status post AICD placement. (10) GERD: PPI. (11) RITESH: CPAP q HS. (12) DVT prophylaxis: SCDs, given atrial fibrillation with acute CHF exacerbation will administer therapeutic Lovenox pending cardiology evaluation. With alcohol abuse history possibly had been greater risk than benefit. (13) CODE status: Discussed CODE status at length including difference between FULL code, DNR-CCA and DNR-CC status. Following discussions about the differences in these status, requested Full Code status. Advanced Care Planning Face to Face Time: 16 minutes. Code Visit Inpatient E&M: 15450 Init Hosp L3 Procedures: 96439 Advncd Care Plan 30 Min
[2018-09-19 18:04] LABS: Magnesium 1.6 mg/dL (1.6-2.6); Phosphorus 2.5 mg/dL (2.5-4.9); Thyroid Stim Hormone (TSH) 1.61 uIU/mL (0.358-3.74)
[2018-09-19 19:11] LABS: Bedside Glucose 252 mg/dL (70-110)
[2018-09-19] MEDS: Insulin Lispro 100 UNIT/ML INSULN.PEN SC ×2 (19:12→22:44)
[2018-09-19] MEDS: Thiamine Hydrochloride 100 MG Tablet PO (19:15)
[2018-09-19] MEDS: Enoxaparin 100 MG/ML Syringe 90 MG SC (19:15)
--- NOTE | 2018-09-19 20:40 | NURSING ---
Pt refusing pacer pads at this time.
--- NOTE | 2018-09-19 22:12 | CPS ---
PT REFUSED CPAP.
[2018-09-19] MEDS: Furosemide 40 MG/4 ML Vial IV (22:45)
[2018-09-19] MEDS: Atorvastatin Calcium 80 MG Tablet PO (22:47)
[2018-09-19] MEDS: Metoprolol(XL)Succ 50 MG Tablet PO (22:47)
[2018-09-19] MEDS: 0.9% NaCl Peripheral Flush Adult/Peds IV ×2 (22:48→22:54)
[2018-09-19 23:15] LABS: Bedside Glucose 195 mg/dL (70-110)
[2018-09-20] VITALS (15 sets, daily range): BP systolic 116–130; BP diastolic 47–89; PULSE 77–122; RESP 16–20; TEMP 36.3–36.9; O2SAT 95–97
[2018-09-20 01:49] LABS: Amphetamine Urine VISTA NEGATIVE (<1000 ng/mL); Barbiturate Urine VISTA NEGATIVE (< 200 ng/mL); Benzodiazepine Urine VISTA NEGATIVE (< 200 ng/mL); Cocaine Urine VISTA NEGATIVE (< 300 ng/mL); Ecstacy Urine VISTA NEGATIVE (< 500 ng/mL); Methadone Urine VISTA NEGATIVE (< 300 ng/mL); PCP Urine VISTA NEGATIVE (< 25 ng/mL); THC Urine VISTA NEGATIVE (< 50 ng/mL); Vista UDS pH Range 5
[2018-09-20] MEDS: 0.9% NaCl Peripheral Flush Adult/Peds IV ×4 (05:02→22:03)
[2018-09-20] MEDS: Enoxaparin 100 MG/ML Syringe 90 MG SC ×2 (05:03→17:59)
[2018-09-20] MEDS: Furosemide 40 MG/4 ML Vial IV ×3 (05:03→22:02)
[2018-09-20 07:10] LABS: Bedside Glucose 143 mg/dL (70-110)
[2018-09-20 07:20] LABS: Absolute Lymphocyte Count 0.68 X10^3/ul (0.83-4.51); Absolute Neutrophil Count 6.6 X10^3/uL (2.0-7.7); Basophil# 0.02 X10^3/uL; Basophil% 0.2 % (0-1); Eosinophil# 0.21 X10^3/uL; Eosinophils% 2.6 % (0-5); Hematocrit 38.5 % (40-54); Hemoglobin 13.1 g/dl (13.0-16.5); Lymphocyte # 0.68 X10^3/ul (4.0); Lymphocyte % 8.3 % (19-41); Mean Corpuscular Hgb 31.3 pg (27.0-32.0); Mean Corpuscular Volume 91.9 fL (80-94); Mean Platelet Vol. 10.6 fl (6.2-12.0); Monocyte# 0.67 X10^3/uL; Monocyte% 8.2 % (0-10); Neutrophil % 80.3 % (47-70); Platelet Count 162 K/mm3 (150-450); RBC Distribution Width CV 13.3 % (11.6-14.6); Red Blood Count 4.19 M/mm3 (4.6-6.2); White Blood Count 8.2 K/mm3 (4.4-11.0)
[2018-09-20 07:23] LABS: POSITIVE COUNT NO; POSITIVE DIFFERENTIAL NO; POSITIVE MORPHOLOGY NO
[2018-09-20 07:46] LABS: Anion Gap 8 (5-15); BUN 24 mg/dL (7-18); BUN/Creat Ratio 19.5 RATIO (10-20); Calcium,Total 9.1 mg/dL (8.5-10.1); Chloride 103 mmol/L (98-107); Cholesterol 126 mg/dL (200); Creatinine, Serum 1.23 mg/dL (0.70-1.30); EST Glomerular Filtration Rate 61 mL/min (>60); Est Glom Filt Rate - Afr Amer 74 mL/min (>60); Estimated Creatinine Clearance 51.75 ml/min; Glucose 136 mg/dL (74-106); High Density Lipoprotein 41 mg/dL; Potassium 3.5 mmol/L (3.5-5.1); Sodium Level 141 mmol/L (136-145); Triglycerides 69 mg/dL; Very Low Density Lipoprotein 14 mg/dL (5-40)
[2018-09-20] MEDS: Aspirin E.C. 81 MG Tablet PO (08:12)
[2018-09-20] MEDS: Folic Acid 1 MG Tablet PO (08:12)
[2018-09-20] MEDS: Thiamine Hydrochloride 100 MG Tablet PO ×2 (08:13→17:59)
[2018-09-20] MEDS: Multivitamins,Ther W-Minerals Tablet 1 TABLET PO (08:13)
--- NOTE | 2018-09-20 10:00 | CON.PCM_ITS ---
Reason for Consult Date of Consultation: 09/20/18 Reason for Consultation: CHF History of Present Illness: The patient is a 73 year old M with extensive cardiac history including cardiomyopathy status post ICD implantation, CAD status post bypass surgery 1997, status post PCI to the diagonal and SVG to the diagonal in 2016, paroxysmal atrial fibrillation, who presented to the hospital with symptoms suggestive of congestive heart failure exacerbation, with increased shortness of breath, orthopnea, lower extremity swelling, and was found to be in atrial fibrillation with occasional rapid ventricular response. He says he did not take Zaroxolyn for the past 4 days because he accidentally threw it in the trash. He usually takes 40 of Lasix twice a day along with 2.5 mg of Zaroxolyn daily. He was started on IV loop diuretics with Lasix 80 mg every 8 hours, and diuresed well with that. He already feels better. Has EKG did not show any acute ST-T wave changes. His cardiac troponin was elevated, up to 0.145. He denies chest pain or heart palpitations. [] Past Medical History Allergies/Adverse Reactions: Allergies lisinopril Adverse Reaction (Verified 09/19/18 08:23) cough Amiodarone Adverse Reaction (Uncoded 09/19/18 17:17) Shortness of breath Home Medications: Ambulatory Orders Medication Instructions Recorded Insulin Detemir [Levemir FlexPen] 4 units SC QHS 02/16/16 omeprazole 20 mg capsule,delayed 20 mg PO DAILY PRN 05/28/17 release magnesium oxide 400 mg (241.3 mg 400 mg PO DAILY #90 tab 11/21/17 magnesium) tablet metoprolol succinate ER 50 mg 50 mg PO BID #180 tab 01/17/18 tablet,extended release 24 hr atorvastatin 80 mg tablet 80 mg PO QHS #90 tab 04/16/18 potassium chloride ER 20 mEq 60 meq PO DAILY #90 tab 06/24/18 tablet,extended release clopidogrel 75 mg tablet 75 mg PO DAILY #90 tab 09/01/18 metolazone 2.5 mg tablet 2.5 mg PO DAILY PRN #30 tab 09/17/18 Amlodipine Besylate [Norvasc] 5 mg PO DAILY 09/19/18 Aspirin [Aspir-Low] 81 mg PO DAILY 09/19/18 Furosemide [Lasix] 40 mg PO SUMOWEFRSA 09/19/18 Insulin Glargine,Hum.rec.anlog 22 unit SQ DAILY 09/19/18 [Basaglar Kwikpen U-100] Losartan Potassium [Cozaar] 25 mg PO DAILY 09/19/18 Past Medical History (Chronic Problems): Chronic Problems (Last Updated 07/17/18 @ 17:10 by Sarika Bridges) Essential (primary) hypertension (Chronic) Non-rheumatic tricuspid valve insufficiency (Chronic) Secondary pulmonary arterial hypertension (Chronic) Ischemic cardiomyopathy (Chronic) senior living current use of amiodarone (Chronic) Paroxysmal atrial fibrillation (Chronic) Atherosclerosis of coronary artery bypass graft without angina pectoris (Chronic) [id number] 09/20/15 @ [facility], [facility] X 3 stents @ [facility] 02/14: Proximal mid & distal SVG to first DX of LAD; CABG x3 EASLEY to LAD, SVG to the LCX, SVG to the RCA 1997 Chronic systolic congestive heart failure (Chronic) Ventricular tachycardia (Chronic) HLD (hyperlipidemia) (Chronic) ICD (implantable cardioverter-defibrillator) in place (Chronic) 03/20/12 Implantation of cardiac defibrillator for V-tach NSTEMI (non-ST elevated myocardial infarction) (Chronic) Non-ST PA April 2012 & August 2015 Surgical History: angioplasty, coronary bypass surgery, pacemaker implantation, - - AICD. Psychiatric History: No pertinent psych hx - *Family History Paternal History Items: - - Patient notes that his father passed from complications secondary to from description ruptured AAA. Maternal History Items: - - Patient notes a maternal family history of possibly complications from brain aneurysm but unclear. Lives: Spouse/ Significant Other Smoking Status: Never smoker Tobacco Use: Non-smoker Alcohol: Heavy - Per report history of alcohol abuse, patient notes only social drinking. Drugs: None Review of Systems - Review of Systems General: Denies: Fever, Night Sweats, Fatigue Cardiovascular: Denies: Chest Discomfort, Shortness of Breath, Orthopnea, PND, Peripheral Edema, Palpitations, Lightheadedness, Dizziness, Near Syncope, Synco pe Respiratory: Denies: Cough, Sputum Production, Hemoptysis Gastrointestinal: Denies: Hematemesis, Hematochezia, Melena Genitourinary: Denies: Dysuria, Hematuria Skin: Denies: Rash Objective: Vital Signs Temp Pulse Resp BP Pulse Ox 97.3 F L 116 H 20 H 122/76 H 97 09/20/18 04:46 09/20/18 06:22 09/20/18 04:46 09/20/18 04:46 09/20/18 07:27 Oxygen Flow Rate (L/min) 3 Oxygen Delivery Method Nasal Cannula Weight: 188 lb 0.869 oz Body Mass Index (BMI) 28.8 Intake and Output for Last 24 Hours 09/18/18 09/19/18 09/20/18 23:59 23:59 23:59 Intake Total 420 / 420 Output Total 600 / 600 815 / 815 Balance -180 / -180 -795 / -795 General: Awake, Alert, Oriented x 3 HEENT: PERRL, EOMI, Sclera Non Icteric Neck: Supple, Good ROM, No Lymph Node Enlargement Lungs: Clear to auscultation Cardiovascular: Irregular Rhythm, No Murmurs, No Rubs, No Gallops Abdomen: Bowel Sounds Present, Soft, Non Tender, No HSM, No Organomegaly Extremities: No Cyanosis, No Clubbing, Mild LLE Edema Neurological: No Focal Motor or Sensory Deficit 09/19/18 08:45: B-Natriuretic Peptide 218.6 H 09/19/18 08:45: Phosphorus 2.5, Magnesium 1.6 09/19/18 19:23: Troponin I 0.150 H 09/19/18 21:49: Troponin I 0.148 H 09/20/18 06:43: WBC 8.2, RBC 4.19 L, Hgb 13.1, Hct 38.5 L, MCV 91.9, MCH 31.3, MCHC 34.0, RDW 13.3, RDW Differential 44.0 H, Plt Count 162, MPV 10.6, Immature Gran % (Auto) 0.400, Neut % (Auto) 80.3 H, Lymph % (Auto) 8.3 L, [facility] % (Auto) 8.2, Eos % (Auto) 2.6, Baso % (Auto) 0.2, Absolute Neuts (auto) 6.6, Total Counted Not Reportable 09/20/18 06:43: Sodium 141, Potassium 3.5, Chloride 103, Carbon Dioxide 30.0, Anion Gap 8, BUN 24 H, Creatinine 1.23, Est GFR (MDRD) Af Amer 74, Est GFR (MDRD) Non-Af 61, BUN/Creatinine Ratio 19.5, Glucose 136 H, Calcium 9.1, Triglycerides 69, Cholesterol 126, LDL Cholesterol 71, VLDL Cholesterol 14, HDL Cholesterol 41 Rhythm: EKG: ECHO: Stress Test: Cardiac Cath: PCI: CT Surgery: Holter monitor: EPS: PPM: CXR: Chest CT Scan: Assessment/Plan Impression: 1. CAD status post CABG x3 in 1997, status post PCI to the diagonal and SVG to diagonal in 2015 2. Mild to moderate ischemic/nonischemic cardiomyopathy, with an ejection fraction around 40 to 45%, status post ICD implantation 3. CHF exacerbation. 4. Paroxysmal atrial fibrillation with rapid ventricular response 5. Non-ST elevation myocardial infarction 6. Diabetes mellitus Plan: 1. Continue IV loop diuretics for the next 24 to 48 hours. 2. Increase beta-blockers to better control the heart rate. 3. Left heart catheterization, coronary angiography, and possible intervention was recommended to the patient considering the elevated cardiac troponin. Risks and benefits were explained to the patient details. He is agreeable to proceed. 4. The patient will eventually need to be on chronic anticoagulation therapy for the prevention of cardioembolic complications from his atrial fibrillation considering his elevated chadsvasc score.
[2018-09-20] MEDS: amLODIPine 5 MG Tablet PO (10:06)
[2018-09-20] MEDS: Metoprolol(XL)Succ 50 MG Tablet PO (10:06)
[2018-09-20] MEDS: Clopidogrel Bisulfate 75 MG Tablet PO (10:06)
[2018-09-20] MEDS: Magnesium Oxide 400 MG Tablet PO (10:06)
[2018-09-20] MEDS: Losartan Potassium 25 MG Tablet PO (10:06)
[2018-09-20 11:05] LABS: Bedside Glucose 245 mg/dL (70-110)
[2018-09-20] MEDS: Insulin Lispro 100 UNIT/ML INSULN.PEN SC ×3 (11:44→22:00)
--- NOTE | 2018-09-20 13:01 | PN_ITS ---
Subjective: The patient is a 73-year-old male with a past medical history of paroxysmal atrial fibrillation, coronary artery disease with history of PCI s/p JOSE [id number] 09/20/15 @ [facility], [facility] X 3 stents @ [facility] 02/14 Proximal mid & distal SVG to first DX of LAD; CABG x3 EASLEY to LAD, SVG to the LCX, SVG to the RCA 1997, hypertension, hyperlipidemia, stage II diastolic dysfunction, mild concentric left ventricular hypertrophy, pulmonary hypertension with a PA pressure estimated at 45 on echocardiogram done in June 2018, chronic systolic congestive heart failure, ischemic cardiomyopathy, AICD placement for ventricular tachycardia, diabetes mellitus type 2 and alcohol abuse who presented to the emergency department at [facility] on 09/19/2018 complaining of palpitations and progressively worsening dyspnea over the preceding 4 days. Additionally he had increasing lower extremity edema. He told the admitting hospitalist that he had run out of his metolazone 3 days prior to presenting to the emergency room. Vital signs in the emergency department were temp 98.4, pulse rate 104, blood pressure 142/98, respiratory rate 20 and he was 95% saturated on a 2 L nasal cannula. White blood cell count was normal at 8.8 with a left shift. Hemoglobin and platelets were within normal limits and the MCV and MCH were normal. Sodium was mildly decreased at 135 and the potassium was 4.7. The BUN was 24 and the creatinine was 1.16. The past 2 years has ranged from 1.16-1.6. Random blood sugar was 186. LFTs were unremarkable. Magnesium was 1.6 and the phosphorus was normal at 2.5. The initial troponin was elevated at 0.095. BNP was 218. TSH was normal at 1.6. Urine tox screen was negative. Chest x-ray showed cardiomegaly with blunting of both costophrenic angles. CTA of the chest was ordered and showed no evidence of pulmonary embolism. There were small bilateral pleural effusions with left pleural calcifications. There was an area in the right lower lobe which measured 5.5 cm which the radiologist felt was an area of atelectasis versus neoplasm. 1 month follow-up chest CT was recommended. EKG revealed atrial fibrillation with QT prolongation and no ST elevation or significant ST or T wave changes. He was admitted to a monitored bed on PCU and started on scheduled intravenous Lasix. Cardiology was consulted. Afebrile since admission. Blood pressure is stable. He is maintaining an appropriate saturation on a 2 L nasal cannula. All lab and imaging was personally reviewed. White blood cell count today is 8.2 with persistent left shift. Hemoglobin and platelets were remained within normal limits. Potassium is low at 3.5 today and the BUN is 24 with a creatinine of 1.23, up from 1.16 at admission. Troponin increased from 0.095 at admission to 0.148. LDL is 71 and the HDL is 41. TSH was within normal limits. Fluid balance is -735 since admission. He was seen in consultation by Dr. Olmedo from cardiology today who recommended continuing intravenous loop diuretics for the next 24 to 48 hours. He also recommended increasing beta blockers to better control the heart rate. Left heart catheterization was recommended due to elevated troponin and the patient was agreeable to proceed. Chronic anticoagulation was recommended due to atrial fibrillation with an elevated chadsvasc score. - Physical Exam General: Alert, Oriented x3, Cooperative, No apparent distress HEENT: PERRLA, EOMI, Normocephalic Oral: Moist Mucosa Neck: Supple, No JVD Lungs: Clear to auscultation Cardiovascular: Normal S1, Normal S2, No murmurs, Irregular Rate, No Gallop Abdomen: Bowel Sounds Present, Soft, Non Tender, Non-Distended Extremities: No clubbing, No cyanosis, No edema Neurological: Cranial nerves II-XII grossly intact, Neuro grossly intact Vital Signs Temp Pulse Resp BP Pulse Ox 97.8 F 122 H 16 116/47 L 95 09/20/18 10:12 09/20/18 10:12 09/20/18 10:12 09/20/18 10:12 09/20/18 10:12 Oxygen Flow Rate (L/min) 3.0 Oxygen Delivery Method Nasal Cannula Weight: 190 lb 0.615 oz Body Mass Index (BMI) 28.8 Intake and Output for Last 24 Hours 09/18/18 09/19/18 09/20/18 23:59 23:59 23:59 Intake Total 420 / 420 260 / 260 Output Total 600 / 600 815 / 815 Balance -180 / -180 -555 / -555 Laboratory Tests Past 24 Hrs 09/19/18 09/19/18 09/19/18 08:45 19:23 21:49 WBC RBC Hgb Hct MCV MCH MCHC RDW RDW Differential Plt Count MPV Immature Gran % (Auto) Neut % (Auto) Lymph % (Auto) [place] % (Auto) Eos % (Auto) Baso % (Auto) Absolute Neuts (auto) Absolute Lymphs (auto) Total Counted Sodium Potassium Chloride Carbon Dioxide Anion Gap BUN Creatinine Estim Creat Clear Calc Est GFR (MDRD) Af Amer Est GFR (MDRD) Non-Af BUN/Creatinine Ratio Glucose Calcium Phosphorus 2.5 Magnesium 1.6 Troponin I 0.150 H 0.148 H Triglycerides Cholesterol LDL Cholesterol VLDL Cholesterol HDL Cholesterol TSH 1.61 Urine Opiates Screen Urine Methadone Screen Ur Barbiturates Screen Ur Phencyclidine Scrn Ur Amphetamines Screen U Methamphetamin-MDMA U Benzodiazepines Scrn Urine Cocaine Screen U Cannabinoids Screen Ur Drug Screen Comment Ethyl Alcohol 09/20/18 09/20/18 09/20/18 01:00 06:43 06:43 WBC 8.2 RBC 4.19 L Hgb 13.1 Hct 38.5 L MCV 91.9 MCH 31.3 MCHC 34.0 RDW 13.3 RDW Differential 44.0 H Plt Count 162 MPV 10.6 Immature Gran % (Auto) 0.400 Neut % (Auto) 80.3 H Lymph % (Auto) 8.3 L Spencer % (Auto) 8.2 Eos % (Auto) 2.6 Baso % (Auto) 0.2 Absolute Neuts (auto) 6.6 Absolute Lymphs (auto) 0.68 L Total Counted Not Reportable Sodium 141 Potassium 3.5 Chloride 103 Carbon Dioxide 30.0 Anion Gap 8 BUN 24 H Creatinine 1.23 Estim Creat Clear Calc 51.75 Est GFR (MDRD) Af Amer 74 Est GFR (MDRD) Non-Af 61 BUN/Creatinine Ratio 19.5 Glucose 136 H Calcium 9.1 Phosphorus Magnesium Troponin I Triglycerides 69 Cholesterol 126 LDL Cholesterol 71 VLDL Cholesterol 14 HDL Cholesterol 41 TSH Urine Opiates Screen NEGATIVE Urine Methadone Screen NEGATIVE Ur Barbiturates Screen NEGATIVE Ur Phencyclidine Scrn NEGATIVE Ur Amphetamines Screen NEGATIVE U Methamphetamin-MDMA NEGATIVE U Benzodiazepines Scrn NEGATIVE Urine Cocaine Screen NEGATIVE U Cannabinoids Screen NEGATIVE Ur Drug Screen Comment Ethyl Alcohol 09/20/18 11:53 WBC RBC Hgb Hct MCV MCH MCHC RDW RDW Differential Plt Count MPV Immature Gran % (Auto) Neut % (Auto) Lymph % (Auto) Spencer % (Auto) Eos % (Auto) Baso % (Auto) Absolute Neuts (auto) Absolute Lymphs (auto) Total Counted Sodium Potassium Chloride Carbon Dioxide Anion Gap BUN Creatinine Estim Creat Clear Calc Est GFR (MDRD) Af Amer Est GFR (MDRD) Non-Af BUN/Creatinine Ratio Glucose Calcium Phosphorus Magnesium Troponin I Triglycerides Cholesterol LDL Cholesterol VLDL Cholesterol HDL Cholesterol TSH Urine Opiates Screen Urine Methadone Screen Ur Barbiturates Screen Ur Phencyclidine Scrn Ur Amphetamines Screen U Methamphetamin-MDMA U Benzodiazepines Scrn Urine Cocaine Screen U Cannabinoids Screen Ur Drug Screen Comment Ethyl Alcohol Pending POC Glucose 09/20/18 09/20/18 09/19/18 11:01 06:50 22:42 POC Glucose 245 H 143 H 195 H 09/19/18 19:00 POC Glucose 252 H Medical Necessity - Tobacco Use Smoking Status: Never smoker Tobacco Use: Non-smoker Assessment/Plan All Active Problems (Last Updated 07/17/18 @ 17:10 by Sarika Bridges) History of coronary artery stent placement (Resolved 01/2016) H/O coronary artery bypass surgery (Resolved 1997) Impressions 1. Acute systolic congestive heart failure 2. Ischemic cardiomyopathy with an EF of 40 to 45% 3. Coronary artery disease with history of CABG x3 vessels in 1997 and status post PCI to the diagonal and saphenous vein graft to the diagonal in 2015 4. Paroxysmal atrial fibrillation with rapid ventricular response 5. NSTEMI 6. Diabetes mellitus type 2 D/W Dr. Olmedo. will continue with IV diuretics for another 24H Increase beta blockers to better control heart rate with atrial fibrillation Patient is agreeable to left heart catheterization on Saturday Will eventually need chronic anticoagulation for stroke prophylaxis in light of atrial fibrillation.
[2018-09-20 13:27] LABS: Alcohol, Blood (Medical)-Serum < 3.0 mg/dL
--- NOTE | 2018-09-20 16:48 | CASEMGMT ---
RN TATIANA assessment: Face to Face with patient for initial transition planning/care coordination assessment. RN TATIANA introduced self and role at [facility], pt voices understanding and consents to assessment at this time. Pt is sitting up in bed in no distress at this time. Pt is A/Ox4 at this time and answers all questions appropriately at this time. As this RN CM starts asking assessment questions, pt states 'see all you care about is getting the bill paid.' This RN CM was asking about Rx coverage at the time and explained to pt that the question is to verify that he has Rx coverage so that we can provide resources if he needed assistance. This RN CM then tried to continue again with assessment and ask pt about living arrangements and pt got upset and states 'all you people are just asking the same stuff and I am done with this.' This RN CM once again advised pt that we are just trying to assist and then this RN CM left room. Pt declined further assessment questions at this time. CM to follow for any further discharge planning/needs, if pt allows. Pt Goal: Home Plan: [place] RN TATIANA
[2018-09-20 18:16] LABS: Bedside Glucose 206 mg/dL (70-110)
[2018-09-20] MEDS: Atorvastatin Calcium 80 MG Tablet PO (22:04)
[2018-09-20] MEDS: Metoprolol(XL)Succ 25 MG Tablet 75 MG PO (22:07)
[2018-09-20] MEDS: MELATONIN 3 MG TABLET PO (22:10)
[2018-09-20 22:16] LABS: Bedside Glucose 157 mg/dL (70-110)
[2018-09-21] VITALS (13 sets, daily range): BP systolic 114–130; BP diastolic 62–81; PULSE 59–110; RESP 16–20; TEMP 36.4–36.9; O2SAT 94–96
[2018-09-21] MEDS: Furosemide 40 MG/4 ML Vial IV (06:29)
[2018-09-21] MEDS: Enoxaparin 100 MG/ML Syringe 90 MG SC ×2 (06:29→16:46)
[2018-09-21] MEDS: 0.9% NaCl Peripheral Flush Adult/Peds IV ×4 (06:29→21:20)
[2018-09-21 07:10] LABS: Bedside Glucose 122 mg/dL (70-110)
[2018-09-21] MEDS: Aspirin E.C. 81 MG Tablet PO (08:33)
[2018-09-21] MEDS: Multivitamins,Ther W-Minerals Tablet 1 TABLET PO (08:33)
[2018-09-21] MEDS: Thiamine Hydrochloride 100 MG Tablet PO ×2 (08:33→16:46)
[2018-09-21] MEDS: Folic Acid 1 MG Tablet PO (08:33)
[2018-09-21] MEDS: Clopidogrel Bisulfate 75 MG Tablet PO (09:45)
[2018-09-21] MEDS: Magnesium Oxide 400 MG Tablet PO (09:45)
[2018-09-21] MEDS: Losartan Potassium 25 MG Tablet PO (09:45)
[2018-09-21] MEDS: amLODIPine 5 MG Tablet PO (09:46)
[2018-09-21] MEDS: Metoprolol(XL)Succ 25 MG Tablet 75 MG PO ×2 (09:47→21:21)
[2018-09-21] MEDS: Insulin Lispro 100 UNIT/ML INSULN.PEN SC ×3 (11:02→21:18)
[2018-09-21 11:26] LABS: Bedside Glucose 277 mg/dL (70-110)
--- NOTE | 2018-09-21 12:33 | PCM.PN.CARD ---
Subjectve: Feels better in terms of his shortness of breath. Denies chest pain or heart palpitations. Objective: Vital Signs Temp Pulse Resp BP Pulse Ox 97.6 F L 88 16 114/81 H 96 09/21/18 09:55 09/21/18 10:33 09/21/18 09:55 09/21/18 09:55 09/21/18 09:55 Oxygen Flow Rate (L/min) 3 Oxygen Delivery Method Room Air Weight: 189 lb 2.506 oz Body Mass Index (BMI) 28.8 Intake and Output for Last 24 Hours 09/19/18 09/20/18 09/21/18 23:59 23:59 23:59 Intake Total 420 / 420 500 / 500 240 / 240 Output Total 600 / 600 2390 / 2390 850 / 850 Balance -180 / -180 -1890 / -1890 -610 / -610 General: Awake, Alert, Oriented x 3 HEENT: PERRL, EOMI, Sclera Non Icteric Neck: Supple, Good ROM, No Lymph Node Enlargement Lungs: Clear to auscultation Cardiovascular: Irregular Rhythm, No Murmurs, No Rubs, No Gallops Extremities: Bilateral Edema +1 Rhythm: EKG: ECHO: Stress Test: Cardiac Cath: PCI: CT Surgery: Holter monitor: EPS: PPM: CXR: Chest CT Scan: Medical Necessity - Tobacco Use Smoking Status: Never smoker Tobacco Use: Non-smoker Assessment/Plan Impression: 1. CAD status post CABG x3 in 1997, status post PCI to the diagonal and SVG to diagonal in 2015 2. Mild to moderate ischemic/nonischemic cardiomyopathy, with an ejection fraction around 40 to 45%, status post ICD implantation 3. CHF exacerbation. Better. 4. Paroxysmal atrial fibrillation with rapid ventricular response 5. Non-ST elevation myocardial infarction 6. Diabetes mellitus Plan: 1. Change IV Lasix to p.o. Add Zaroxolyn (which he usually takes as an outpatient) 2. Increase beta-blockers to better control the heart rate. 3. Left heart catheterization, coronary angiography, and possible intervention was recommended to the patient considering the elevated cardiac troponin. Risks and benefits were explained to the patient details. He is agreeable to proceed. 4. The patient will eventually need to be on chronic anticoagulation therapy for the prevention of cardioembolic complications from his atrial fibrillation considering his elevated chadsvasc score.
[2018-09-21] MEDS: Furosemide 40 MG Tablet PO (16:46)
[2018-09-21 16:50] LABS: Bedside Glucose 151 mg/dL (70-110)
--- NOTE | 2018-09-21 17:51 | PCM.PROGNOTE ---
Subjective: Afebrile Heart rate is coming under better control Denies chest pain, shortness of breath or palpitations. Oxygen saturation is 94 to 96% on room air. Blood pressure is well controlled. Fluid balance on 09/20/2018 was -1890 - Physical Exam General: Alert, Oriented x3, Cooperative, No apparent distress Lungs: Clear to auscultation Cardiovascular: Normal S1, Normal S2, No murmurs, Irregular Rate, No Gallop, - - Telemetry shows better heart rate control today Abdomen: Bowel Sounds Present, Soft, Non Tender, Non-Distended Extremities: No edema Skin: No rashes Vital Signs Temp Pulse Resp BP Pulse Ox 97.6 F L 110 H 16 116/71 94 09/21/18 15:02 09/21/18 15:02 09/21/18 15:02 09/21/18 15:02 09/21/18 15:02 Oxygen Flow Rate (L/min) 3 Oxygen Delivery Method Room Air Weight: 189 lb 2.506 oz Body Mass Index (BMI) 28.8 Intake and Output for Last 24 Hours 09/19/18 09/20/18 09/21/18 23:59 23:59 23:59 Intake Total 420 / 420 500 / 500 600 / 600 Output Total 600 / 600 2390 / 2390 850 / 850 Balance -180 / -180 -1890 / -1890 -250 / -250 POC Glucose 09/21/18 09/21/18 09/21/18 16:42 11:00 06:31 POC Glucose 151 H 277 H 122 H 09/20/18 09/20/18 21:59 17:52 POC Glucose 157 H 206 H Medical Necessity - Tobacco Use Smoking Status: Never smoker Tobacco Use: Non-smoker Assessment/Plan All Active Problems (Last Updated 07/17/18 @ 17:10 by Sarika Bridges) History of coronary artery stent placement (Resolved 01/2016) H/O coronary artery bypass surgery (Resolved 1997) Impressions 1. Acute systolic congestive heart failure 2. Ischemic cardiomyopathy with an EF of 40 to 45% 3. Coronary artery disease with history of CABG x3 vessels in 1997 and status post PCI to the diagonal and saphenous vein graft to the diagonal in 2015 4. Paroxysmal atrial fibrillation with rapid ventricular response 5. NSTEMI 6. Diabetes mellitus type 2 Transition to oral Lasix today Zaroxolyn was added to his drug regimen-he usually takes this as an outpatient Plan left heart cath tomorrow Needs to be started on anticoagulation following CATH if he does not need intervention Code Visit Inpatient E&M: 71836 Subs Hosp L2
[2018-09-21] MEDS: Atorvastatin Calcium 80 MG Tablet PO (21:21)
[2018-09-21 22:15] LABS: Bedside Glucose 152 mg/dL (70-110)
[2018-09-21 23:46] LABS: Bacteria 0 SEEN /hpf (None Seen); Mucous, Urine 0 SEEN /hpf (<or=2+); Red Blood Cells-Urine 0 SEEN /hpf (0-5); Squamous Epithelial Cells - UA 0 SEEN /hpf (0-5); White Blood Cells 0 SEEN /hpf (0-5)
[2018-09-21 23:47] LABS: Glucose, Dipstick Normal (Normal); Ketone-Dipstick Negative (Negative); Leukocyte Esterase-Dipstick Negative /ul (Negative); Nitrite-Dipstick Negative (Negative); Occult Blood-Urine Negative /ul (Negative); Protein-Dipstick Negative (Negative); Urine Bilirubin Dipstick Negative (Negative); Urine Urobilinogen 1 mg/dl (Normal); Urine pH 6.5 (5.0 - 8.0)
[2018-09-22] VITALS (7 sets, daily range): BP systolic 105–136; BP diastolic 59–76; PULSE 55–85; RESP 16–20; TEMP 36.7–36.9; O2SAT 95–98
[2018-09-22 00:01] LABS: Color, Urine Yellow (Yellow); Urine Clarity Clear (Clear)
--- NOTE | 2018-09-22 05:55 | EKG12_ITS ---
Test Reason : AM EKG Blood Pressure : / mmHG Vent. Rate : 057 BPM Atrial Rate : 250 BPM P-R Int : 000 ms QRS Dur : 126 ms QT Int : 470 ms P-R-T Axes : 000 -17 125 degrees QTc Int : 457 ms Atrial Flutter with variable block Non-specific intra-ventricular conduction block Inferior infarct , age undetermined T wave abnormality, consider lateral ischemia Abnormal ECG When compared with ECG of 20-SEP-2018 04:29, MANUAL COMPARISON REQUIRED, DATA IS UNCONFIRMED Confirmed by SAROJ SANCHEZ, UBALDO ([id number]), publications editor ANIA SALAS ([id number]) on 09/23/2018 7:58:50 AM Referred By: DR LIZARRAGA Confirmed By:UBALDO KYLE MD
[2018-09-22 05:59] LABS: Absolute Lymphocyte Count 0.95 X10^3/ul (0.83-4.51); Absolute Neutrophil Count 6.3 X10^3/uL (2.0-7.7); Basophil# 0.01 X10^3/uL; Basophil% 0.1 % (0-1); Eosinophil# 0.38 X10^3/uL; Eosinophils% 4.6 % (0-5); Hematocrit 37.8 % (40-54); Hemoglobin 12.9 g/dl (13.0-16.5); Lymphocyte # 0.95 X10^3/ul (4.0); Lymphocyte % 11.4 % (19-41); Mean Corp Hgb Conc 34.1 g/gl (32-36); Mean Corpuscular Hgb 31.2 pg (27.0-32.0); Mean Corpuscular Volume 91.5 fL (80-94); Mean Platelet Vol. 10.4 fl (6.2-12.0); Monocyte# 0.62 X10^3/uL; Monocyte% 7.5 % (0-10); Neutrophil # 6.33 X10^3/uL (2.7-7.7); Platelet Count 175 K/mm3 (150-450); RBC Distribution Width SD 42.3 fl (35.1-43.9); Red Blood Count 4.13 M/mm3 (4.6-6.2); White Blood Count 8.3 K/mm3 (4.4-11.0)
[2018-09-22 06:01] LABS: Anion Gap 8 (5-15); BUN 26 mg/dL (7-18); BUN/Creat Ratio 24.1 RATIO (10-20); Calcium,Total 8.8 mg/dL (8.5-10.1); Chloride 102 mmol/L (98-107); Creatinine, Serum 1.08 mg/dL (0.70-1.30); EST Glomerular Filtration Rate 71 mL/min (>60); Est Glom Filt Rate - Afr Amer 86 mL/min (>60); Estimated Creatinine Clearance 58.94 ml/min; Glucose 120 mg/dL (74-106); International Normalized Ratio 1.1; Magnesium 1.9 mg/dL (1.6-2.6); Prothrombin Time (Protime)PT. 14.4 SECONDS (11.7-14.9); Sodium Level 140 mmol/L (136-145)
[2018-09-22 06:16] LABS: POSITIVE COUNT NO; POSITIVE DIFFERENTIAL NO; POSITIVE MORPHOLOGY NO
[2018-09-22] MEDS: Metoprolol(XL)Succ 25 MG Tablet 75 MG PO (06:19)
[2018-09-22] MEDS: Losartan Potassium 25 MG Tablet PO (06:20)
[2018-09-22] MEDS: amLODIPine 5 MG Tablet PO (06:20)
[2018-09-22] MEDS: Aspirin E.C. 81 MG Tablet PO (06:20)
[2018-09-22] MEDS: Clopidogrel Bisulfate 75 MG Tablet PO (06:20)
[2018-09-22 06:31] LABS: Bedside Glucose 124 mg/dL (70-110)
--- NOTE | 2018-09-22 08:02 | ECHOCS_ITS ---
Reason For Study: CHF Procedure This was a 2D Doppler, Color Flow transthoracic echocardiogram. The study was technically difficult. Contrast injection was performed. Exam performed portable in patient room. Left Ventricle Normal LV size. The estimated ejection fraction is 35 %. Moderate segmental systolic dysfunction (see wall motion). There are regional wall motion abnormalities as specified. Mid-Inferior: Hypokinetic. Mid-Posterior: Hypokinetic. Infero-Basal: Hypokinetic. Posterior-Basal: Hypokinetic. The rest of the wall segments are normal. Right Ventricle Normal RV size. ICD or pacer leads identified within the right ventricle. Normal systolic function. Atria Normal left atrium. Normal right atrium. Mitral Valve Mitral valve not well visualized. Tricuspid Valve Normal tricuspid valve. Aortic Valve Trisinus/trileaflet aortic valve. Mild diffuse aortic valve thickening. Peak aortic valve gradient 11.7 mmHg. Mean aortic valve gradient 6 mmHg. Mild aortic stenosis. Calculated aortic valve area (continuity equation) is 1.6 cm2. Pulmonic Valve Normal pulmonic valve. Mild (1+) pulmonic valve insufficiency. Great Vessels Normal aortic root. The pulmonary artery is normal size. Normal inferior vena cava. Pericardium/Pleural No pericardial effusion. Medication Diluted definity 5ml given slow IV push to enhance endocardial definition. MMode/2D Measurements & Calculations LVIDd: 5.5 cm IVSd: 1.7 cm LVOT diam: 2.1 cm LVIDs: 4.7 cm LVPWd: 0.90 cm FS: 14.1 % LVOT area: 3.6 cm2 LA dimension: 5.4 cm LAV(MOD-bp): 80.7 ml LVAd ap4: 33.0 cm2 LAV(MOD-bp) Indexed: 40.8 ml/m2 EDV(MOD-sp4): 108.2 ml LAV(MOD-sp2): 67.6 ml EDV(sp4-el): 114.0 ml LAV(MOD-sp4): 79.3 ml LVAs ap4: 23.9 cm2 ESV(MOD-sp4): 62.1 ml ESV(sp4-el): 63.8 ml EF(MOD-sp4): 42.6 % EF(sp4-el): 44.1 % SV(MOD-sp4): 46.1 ml SV(sp4-el): 50.3 ml LA A4 area: 25.7 cm2 RA A4 area: 22.0 cm2 Time Measurements MV dec time: 0.12 sec Doppler Measurements & Calculations MV E max keron: 96.9 cm/sec MV V2 max: 111.4 cm/sec MV P1/2t max ekron: 122.1 cm/sec MV A max keron: 47.7 cm/sec MV max P.0 mmHg MV P1/2t: 92.8 msec MV E/A: 2.0 MV V2 mean: 56.4 cm/sec MV dec slope: 385.4 cm/sec2 MV mean P.6 mmHg MV V2 VTI: 36.3 cm MVA(P1/2t): 2.4 cm2 MVA(VTI): 1.4 cm2 Ao V2 max: 169.1 cm/sec LV V1 max: 76.0 cm/sec MR max keron: 469.3 cm/sec Ao max P.7 mmHg LV V1 max P.3 mmHg MR max P.1 mmHg Ao V2 mean: 116.2 cm/sec LV V1 mean P.1 mmHg Ao mean P.1 mmHg LV V1 mean: 48.7 cm/sec Ao V2 VTI: 33.7 cm LV V1 VTI: 14.4 cm GILSON(I,D): 1.5 cm2 GILSON(V,D): 1.6 cm2 SV(LVOT): 51.2 ml PA V2 max: 63.8 cm/sec Interpretation Summary Normal LV size. The estimated ejection fraction is 35 %. Moderate segmental systolic dysfunction (see wall motion). There are regional wall motion abnormalities as specified. ICD or pacer leads identified within the right ventricle. Mild diffuse aortic valve thickening. Mild aortic stenosis. Calculated aortic valve area (continuity equation) is 1.6 cm2. Contrast injection was performed. Compared to prior study, there is no significant change. Ordering Physician: Tien Onofre Referring Physician: MD Pedro Luis Shin Performed By: Minesh Chamberlain RCS
--- NOTE | 2018-09-22 08:47 | PN.CARD_ITS ---
Subjectve: Patient seen and evaluated. Appears to be much better. Breathing much better as well. Objective: Vital Signs Temp Pulse Resp BP Pulse Ox 98.5 F 78 20 H 136/65 H 95 09/22/18 06:17 09/22/18 07:00 09/22/18 06:17 09/22/18 06:17 09/22/18 06:17 Oxygen Flow Rate (L/min) 2 Oxygen Delivery Method Nasal Cannula Weight: 185 lb 13.595 oz Body Mass Index (BMI) 28.8 Intake and Output for Last 24 Hours 09/20/18 09/21/18 09/22/18 23:59 23:59 23:59 Intake Total 500 / 500 600 / 600 Output Total 2390 / 2390 1150 / 1150 250 / 250 Balance -1890 / -1890 -550 / -550 -250 / -250 General: Awake, Alert, Oriented x 3 HEENT: PERRL, EOMI, Sclera Non Icteric Neck: Supple, Good ROM, No Lymph Node Enlargement Lungs: Clear to auscultation Cardiovascular: Regular Rhythm, Normal S1, Normal S2, No Murmurs, No Rubs, No Gallops Vascular: No Carotid Bruits, Normal Femoral Pulses, Normal Radial Pulses, Normal Dorsalis Pedal Pulse, Normal Posterior Tibial Pulses Abdomen: Bowel Sounds Present, Soft, Non Tender, No HSM, No Organomegaly Extremities: No Cyanosis, No Clubbing, No edema Musculoskeletal: No Erythema Skin: No Rashes Lymphatic: No Lymph Node Enlargement Neurological: No Focal Motor or Sensory Deficit Psych/Mental Status: Appropriate 09/21/18 23:30: Urine Color Yellow, Urine Clarity Clear, Urine pH 6.5, Ur Specific Ag[place] 1.010, Urine Protein Negative, Urine Glucose (UA) Normal, Urine Ketones Negative, Urine Occult Blood Negative, Urine Nitrite Negative, Urine Bilirubin Negative, Urine Urobilinogen 1 H, Ur Leukocyte Esterase Negative, Urine RBC 0 SEEN, Urine WBC 0 SEEN 09/22/18 05:20: PT 14.4, INR 1.1, APTT 46.0 H 09/22/18 05:20: Sodium 140, Potassium 4.0, Chloride 102, Carbon Dioxide 30.0, Anion Gap 8, BUN 26 H, Creatinine 1.08, Est GFR (MDRD) Af Amer 86, Est GFR (MDRD) Non-Af 71, BUN/Creatinine Ratio 24.1 H, Glucose 120 H, Calcium 8.8, Magnesium 1.9 09/22/18 05:20: WBC 8.3, RBC 4.13 L, Hgb 12.9 L, Hct 37.8 L, MCV 91.5, MCH 31.2, MCHC 34.1, RDW 13.0, RDW Differential 42.3, Plt Count 175, MPV 10.4, Immature Gran % (Auto) 0.400, Neut % (Auto) 76.0 H, Lymph % (Auto) 11.4 L, [place] % (Auto) 7.5, Eos % (Auto) 4.6, Baso % (Auto) 0.1, Absolute Neuts (auto) 6.3, Total Counted Not Reportable Rhythm: EKG: ECHO: Stress Test: Cardiac Cath: PCI: CT Surgery: Holter monitor: EPS: PPM: CXR: Chest CT Scan: Medical Necessity - Tobacco Use Smoking Status: Never smoker Tobacco Use: Non-smoker Assessment/Plan Abnormal cardiac enzymes. 1. CABG x3 EASLEY to LAD, SVG to the LCX, SVG to the RCA 1997 Plan He is status post coronary artery bypass surgery. His last catheterization was almost 3 years ago and at that time it demonstrated an 80% proximal left main coronary artery stenosis, 90% distal left main coronary stenosis occlusion of the [place] left anterior descending artery and circumflex artery, a patent left internal mammary artery to left anterior descending artery and a pre-existing stent to the distal portion with 80% stenosis for which angioplasty was performed. The saphenous vein graft to the second diagonal branch was occluded and medical therapy was recommended and at this juncture I would suggest that we continue him on the same. His cardiac enzyme level was noted to be flat and I would recommend that we obtain a pharmacologic myocardial perfusion stress test and depending on those findings further recommendations will be made. 2. Essential hypertension I10 Plan He does have a history of hypertension and his blood pressure appears to be under good control at this particular time and we will continue the same without any changes. 3. ICD (implantable cardioverter-defibrillator) in place Z95.810 Plan He does have an implantable ICD. This has been interrogated recently in the office and we will continue to follow him in our office regarding this. It does not appear that he has had any defibrillator discharges. 4. Ischemic cardiomyopathy I25.5 Plan He does have a history of nonischemic cardiomyopathy with his last ejection fraction estimated to be approximately 40%. I would recommend we repeat this he would remain on his losartan, beta-perez, and diuretic. 5. Valvular heart disease I38 Plan He does have a history of valvular heart disease with mild aortic stenosis and sclerosis as evidenced by his murmur. The echocardiogram would further define the above. 6. Pure hypercholesterolemia E78.00 Plan He does have a history of hyperlipidemia. He has not had a recent lipid profile performed. He does remain on high intensity statin. This will be continued. 7. Shortness of breath. * The above is likely secondary to diastolic dysfunction. He was noted to be in atrial fibrillation with rapid ventricular response rate when he presented. I suspect that was part of his heart failure. * He will maintain on a standard dose of diuretics. 8. Paroxysmal atrial fibrillation * He does have evidence of paroxysmal atrial fibrillation. The plan will be to continue him on his current medical therapy. Anticoagulation will be resumed after his stress test. If no intervention is required. * * * Addendum: * His myocardial perfusion stress test did not demonstrate any evidence of ischemia. There is an extensive inferior posterior lateral infarct noted. Based on the above my recommendation would be to continue to manage him with medical therapy and discharge him and follow him as an outpatient. * The echocardiogram demonstrated that his ejection fraction remained at a pproximately 30% with mild aortic stenosis. The segmental wall motion abnormalities are unchanged. * Thank you for allowing me to participate in the care of your patient. Please don't hesitate to call if any issues arise
--- NOTE | 2018-09-22 12:36 | STRESSREP ---
Stress Test Report Pharmacologic myocardial perfusion stress test. 73-year-old man with history of coronary artery disease status post coronary bypass surgery ICD. Stress protocol: Resting EKG demonstrates atrial fibrillation with a rate of 69 bpm normal intervals are noted resting blood pressures 120/72 mmHg. 0.4 mg of regadenoson was infused per usual protocol continuous EKG monitoring was performed. The patient maintained atrial fibrillation flutter throughout. The maximum heart rate attained was 90 bpm which was 61% of maximum predicted heart rate occasional premature ventricular complexes were noted with the maximum workload was 1 metabolic equivalent. At rest there were no ST or T wave changes noted to suggest abnormal flow reserve at peak infusion nonspecific ST-T wave changes were noted. The resting blood pressure 120/72 mmHg final blood pressure was 110/70 mmHg. Myocardial perfusion protocol. 12.8 mCi of technetium 99m sestamibi was injected at rest. 0.4 mg of regadenoson was infused per usual protocol peak infusion 37.7 mCi of technetium 99m sestamibi was injected stress images were obtained stress and rest images were reconstructed and compared in the short axis vertical long horizontal long axis. Gated images were also obtained per Perfusion SPECT analysis: Review of the stress images demonstrate a normal cardiac silhouette size. There is uniform uptake of tracer noted in the septum anterior wall and lateral wall. There is a large defect noted involving the basal to mid inferior wall and extending to the inferior lateral wall. This appears to be present on the stress and resting images to a similar extent suggesting extensive previous inferior posterior lateral infarct. No reversibility is noted to suggest ischemia. 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 No ischemia noted
[2018-09-22] MEDS: Magnesium Oxide 400 MG Tablet PO (13:46)
[2018-09-22] MEDS: Metolazone 2.5 MG Tablet PO (13:46)
[2018-09-22] MEDS: Multivitamins,Ther W-Minerals Tablet 1 TABLET PO (13:48)
[2018-09-22] MEDS: Insulin Lispro 100 UNIT/ML INSULN.PEN SC (16:59)
[2018-09-22 17:05] LABS: Bedside Glucose 356 mg/dL (70-110)
--- NOTE | 2018-09-22 18:14 | DCINST_ITS ---
You will use the following diet at home:: Cardiac - low salt and low fat Your food should be the consistency of: Regular Your liquids should be the consistency of: Regular/Thin Discharge Activity: Return to Normal Activity Call your doctor if you observe: Fever of 101 or Higher, Shortness of breath, Dizziness, Fainting spells, Swelling in the ankles, Chest pain, - - Bleeding form the nose, mouth, anus or penis. Large bruises. Instructions: What Is Dilated Cardiomyopathy?, Signs of Alcohol Addiction (Alcoholism) Additional Instructions: 1. The reason you had heart failure at admission was you were in atrial fibrillation and the rate was very fast. To better control the heart rate the Metoprolol was increased to 75 mg twice a day. You CAN NOT cut the long acting tablets in half so I gave you a prescription for the 25 mg tabs and you will take 3 tabs twice a day. We also increased the Lasix to 40 mg Twice a day. 2. A normal heart squeezes 55-60% of the blood out of the heart every time it squeezes. Your heart is very impaired and only does 30 - 35%. Chronic alcohol use causes the heart to dilate and fail......it will damage the heart even more than the heart attack. If would be advisable to discontinue all alcohol. 3. The stress test was negative. No need to have a cardiac catheterization. 4. Atrial fibrillation is a risk factor for strokes and you should be on an 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 to prevent strokes. I have started you on a drug called Eliquis (Apixaban) and you will take it twice a day. 4. See Dr. Shin in 5-7 days to have the potassium and the kidney function checked. Pending Tests on Discharge: none Allergies/Adverse Reactions: Allergies lisinopril Adverse Reaction (Verified 09/19/18 08:23) cough Amiodarone Adverse Reaction (Uncoded 09/19/18 17:17) Shortness of breath Medications to take at Discharge Insulin Detemir [Levemir FlexPen] 4 units SC QHS 02/16/16 omeprazole 20 mg capsule,delayed release 20 mg PO DAILY PRN 05/28/17 magnesium oxide 400 mg (241.3 mg magnesium) tablet 400 mg PO DAILY #90 tab 11/21/17 atorvastatin 80 mg tablet 80 mg PO QHS #90 tab 04/16/18 potassium chloride ER 20 mEq tablet,extended release 60 meq PO DAILY #90 tab 06/24/18 clopidogrel 75 mg tablet 75 mg PO DAILY #90 tab 09/01/18 metolazone 2.5 mg tablet 2.5 mg PO DAILY PRN #30 tab 09/17/18 Amlodipine Besylate [Norvasc] 5 mg PO DAILY 09/19/18 Aspirin [Aspir-Low] 81 mg PO DAILY 09/19/18 Insulin Glargine,Hum.rec.anlog [Basaglar Kwikpen U-100] 22 unit SQ DAILY 09/19/18 Losartan Potassium [Cozaar] 25 mg PO DAILY 09/19/18 Furosemide [Lasix] 40 mg PO BID #60 tab 09/22/18 Metoprolol(XL)Succ [Toprol Xl (Beta Monica)] 75 mg PO BID #180 tab 09/22/18 Multivitamins,Ther W-Minerals [Multivitamin With Minerals] 1 tab PO DAILYCM tab 09/22/18 The following prescriptions were given: Furosemide [Lasix] 40 mg PO BID #60 tab Transmission Status: Pending to [id number] Metoprolol(XL)Succ [Toprol Xl (Beta Monica)] 75 mg PO BID #180 tab Transmission Status: Received by [id number] Primary Care Physician: Pedro Luis Shin MD [Primary Care Provider] - Please follow up with your Primary Care Physician in: 5-7 days Test Results: Test results from this visit will be discussed in further detail at your follow- up appointment, if applicable. Please Follow Up With: Tien Onofre MD When: 1 month Proposed Discharge Date: 09/22/18
[2018-09-22] MEDS: Furosemide 40 MG Tablet PO (18:30)
--- NOTE | 2018-09-22 18:35 | PCM.DC.SUM ---
Discharge Date and Diagnosis - Problem List Patient Problems: Active and Suspected Problems (Last Updated 09/22/18 @ 18:22 by Tashia Ma DO) Paroxysmal atrial fibrillation with rapid ventricular response (Acute) Elevated troponin (Acute) Acute on chronic systolic (congestive) heart failure (Acute) Date of Admission: 09/19/18 Date of Discharge: 09/22/18 - Primary Discharge Diagnosis Active and Suspected Problems (Last Updated 09/22/18 @ 18:22 by Tashia Ma DO) Paroxysmal atrial fibrillation with rapid ventricular response (Acute) Elevated troponin (Acute) - indeterminate and not trending Acute on chronic systolic (congestive) heart failure (Acute) due to AF with RVR Hypomagnesemia - Secondary Discharge Diagnosis Chronic Problems (Last Updated 09/22/18 @ 18:22 by Tashia Ma DO) Heavy alcohol use (Chronic) History of coronary artery stent placement (Chronic 01/2016) [id number] 09/20/15 @ [facility], Proximal mid & distal SVG to first D2 01/2016 H/O coronary artery bypass surgery (Chronic 1997) CABG x3 EASLEY to LAD, SVG to the LCX, SVG to the RCA 1997 Essential (primary) hypertension (Chronic) Non-rheumatic tricuspid valve insufficiency (Chronic) Secondary pulmonary arterial hypertension (Chronic) Ischemic cardiomyopathy (Chronic) with a 35% EF FCI current use of amiodarone (Chronic) Paroxysmal atrial fibrillation (Chronic) Atherosclerosis of coronary artery bypass graft without angina pectoris (Chronic) [id number] 09/20/15 @ [facility], [facility] X 3 stents @ [facility] 02/14: Proximal mid & distal SVG to first DX of LAD; CABG x3 EASLEY to LAD, SVG to the LCX, SVG to the RCA 1997 Chronic systolic congestive heart failure (Chronic) Ventricular tachycardia (Chronic) HLD (hyperlipidemia) (Chronic) ICD (implantable cardioverter-defibrillator) in place (Chronic) 03/20/12 Implantation of cardiac defibrillator for V-tach Mild aortic stenosis Hospital Course and Treatment Imaging Results: Clinical Impression(s) from Imaging Studies Chest X-Ray 09/19/18 08:27 IMPRESSION: Mild cardiomegaly with minimal bilateral pleural effusion. No significant change noted since the previous study. Electronically Signed: Philip Nolan, at 9:36 EDT Tel , Service support , Chest CTA 09/19/18 10:00 IMPRESSION: No acute pulmonary embolism, aortic dissection or aortic aneurysm Right heart failure with mild CHF/fluid overload Cardiomegaly with cardiovascular disease, cardiac surgery and cardiac device Nonspecific enlarged mediastinal lymph nodes (correlate medical history) Small bilateral pleural effusions with left pleural calcifications (correlate prior infectious/inflammatory pleural process) Indeterminant rounded right lower lung airspace disease measuring up to 5.5 cm (suspected rounded atelectasis versus potential neoplasm; short-term [address] recommended to document resolution) Electronically Signed: Mando Cho DO at 13:01 EDT Tel , Service support , Laboratory Tests 09/22/18 09/22/18 09/22/18 Range/Units 16:57 06:24 05:20 WBC 8.3 (4.4-11.0) K/mm3 RBC 4.13 L (4.6-6.2) M/mm3 Hgb 12.9 L (13.0-16.5) g/dl Hct 37.8 L (40-54) % MCV 91.5 (80-94) fL MCH 31.2 (27.0-32.0) pg MCHC 34.1 (32-36) g/gl RDW 13.0 (11.6-14.6) % RDW Differential 42.3 (35.1-43.9) fl Plt Count 175 (150-450) K/mm3 MPV 10.4 (6.2-12.0) fl Immature Gran % (Auto) 0.400 (0.0-0.9) % Neut % (Auto) 76.0 H (47-70) % Lymph % (Auto) 11.4 L (19-41) % Sullivan % (Auto) 7.5 (0-10) % Eos % (Auto) 4.6 (0-5) % Baso % (Auto) 0.1 (0-1) % Absolute Neuts (auto) 6.3 (2.0-7.7) X10^3/uL Absolute Lymphs (auto) 0.95 (0.83-4.51) X10^3/ul Total Counted Not Reportable PT (11.7-14.9) SECONDS INR APTT (24.1-36.2) Seconds Sodium (136-145) mmol/L Potassium (3.5-5.1) mmol/L Chloride (98-107) mmol/L Carbon Dioxide (21.0-32.0) mmol/L Anion Gap (5-15) BUN (7-18) mg/dL Creatinine (0.70-1.30) mg/dL Estim Creat Clear Calc ml/min Est GFR (MDRD) Af Amer (>60) mL/min Est GFR (MDRD) Non-Af (>60) mL/min BUN/Creatinine Ratio (10-20) RATIO Glucose (74-106) mg/dL Calcium (8.5-10.1) mg/dL Phosphorus (2.5-4.9) mg/dL Magnesium (1.6-2.6) mg/dL Total Bilirubin (0.20-1.00) mg/dL AST (15-37) U/L ALT (16-61) U/L Alkaline Phosphatase (45-117) U/L Troponin I (<0.045) ng/mL B-Natriuretic Peptide (0-100) pg/mL Total Protein (6.4-8.2) g/dL Albumin (3.2-5.0) g/dL Globulin (2.2-4.2) g/dL Albumin/Globulin Ratio (0.9-2.4) RATIO Triglycerides ( - 199) mg/dL Cholesterol (200) mg/dL LDL Cholesterol (0-130) mg/dL VLDL Cholesterol (5-40) mg/dL HDL Cholesterol (40 - ) mg/dL TSH (0.358-3.74) uIU/mL Urine Color (Yellow) Urine Clarity (Clear) Urine pH (5.0 - 8.0) Ur Specific [place] (1.002-1.030) Urine Protein (Negative) mg/dl Urine Glucose (UA) (Normal) mg/dl Urine Ketones (Negative) mg/dl Urine Occult Blood (Negative) /ul Urine Nitrite (Negative) Urine Bilirubin (Negative) mg/dL Urine Urobilinogen (Normal) mg/dl Ur Leukocyte Esterase (Negative) /ul Urine RBC (0-5) /hpf Urine WBC (0-5) /hpf Ur Squamous Epith Cells (0-5) /hpf Urine Bacteria (None Seen) /hpf Urine Mucus (<or=2+) /hpf Urine Opiates Screen (< 300 ng/mL) Urine Methadone Screen (< 300 ng/mL) Ur Barbiturates Screen (< 200 ng/mL) Ur Phencyclidine Scrn (< 25 ng/mL) Ur Amphetamines Screen (<1000 ng/mL) U Methamphetamin-MDMA (< 500 ng/mL) U Benzodiazepines Scrn (< 200 ng/mL) Urine Cocaine Screen (< 300 ng/mL) U Cannabinoids Screen (< 50 ng/mL) Ur Drug Screen Comment Ethyl Alcohol mg/dL POC Glucose 356 H 124 H (70-110) mg/dL 09/22/18 09/22/18 09/21/18 Range/Units 05:20 05:20 23:30 WBC (4.4-11.0) K/mm3 RBC (4.6-6.2) M/mm3 Hgb (13.0-16.5) g/dl Hct (40-54) % MCV (80-94) fL MCH (27.0-32.0) pg MCHC (32-36) g/gl RDW (11.6-14.6) % RDW Differential (35.1-43.9) fl Plt Count (150-450) K/mm3 MPV (6.2-12.0) fl Immature Gran % (Auto) (0.0-0.9) % Neut % (Auto) (47-70) % Lymph % (Auto) (19-41) % Sullivan % (Auto) (0-10) % Eos % (Auto) (0-5) % Baso % (Auto) (0-1) % Absolute Neuts (auto) (2.0-7.7) X10^3/uL Absolute Lymphs (auto) (0.83-4.51) X10^3/ul Total Counted PT 14.4 (11.7-14.9) SECONDS INR 1.1 APTT 46.0 H (24.1-36.2) Seconds Sodium 140 (136-145) mmol/L Potassium 4.0 (3.5-5.1) mmol/L Chloride 102 (98-107) mmol/L Carbon Dioxide 30.0 (21.0-32.0) mmol/L Anion Gap 8 (5-15) BUN 26 H (7-18) mg/dL Creatinine 1.08 (0.70-1.30) mg/dL Estim Creat Clear Calc 58.94 ml/min Est GFR (MDRD) Af Amer 86 (>60) mL/min Est GFR (MDRD) Non-Af 71 (>60) mL/min BUN/Creatinine Ratio 24.1 H (10-20) RATIO Glucose 120 H (74-106) mg/dL Calcium 8.8 (8.5-10.1) mg/dL Phosphorus (2.5-4.9) mg/dL Magnesium 1.9 (1.6-2.6) mg/dL Total Bilirubin (0.20-1.00) mg/dL AST (15-37) U/L ALT (16-61) U/L Alkaline Phosphatase (45-117) U/L Troponin I (<0.045) ng/mL B-Natriuretic Peptide (0-100) pg/mL Total Protein (6.4-8.2) g/dL Albumin (3.2-5.0) g/dL Globulin (2.2-4.2) g/dL Albumin/Globulin Ratio (0.9-2.4) RATIO Triglycerides ( - 199) mg/dL Cholesterol (200) mg/dL LDL Cholesterol (0-130) mg/dL VLDL Cholesterol (5-40) mg/dL HDL Cholesterol (40 - ) mg/dL TSH (0.358-3.74) uIU/mL Urine Color Yellow (Yellow) Urine Clarity Clear (Clear) Urine pH 6.5 (5.0 - 8.0) Ur Specific [place] 1.010 (1.002-1.030) Urine Protein Negative (Negative) mg/dl Urine Glucose (UA) Normal (Normal) mg/dl Urine Ketones Negative (Negative) mg/dl Urine Occult Blood Negative (Negative) /ul Urine Nitrite Negative (Negative) Urine Bilirubin Negative (Negative) mg/dL Urine Urobilinogen 1 H (Normal) mg/dl Ur Leukocyte Esterase Negative (Negative) /ul Urine RBC 0 SEEN (0-5) /hpf Urine WBC 0 SEEN (0-5) /hpf Ur Squamous Epith Cells 0 SEEN (0-5) /hpf Urine Bacteria 0 SEEN (None Seen) /hpf Urine Mucus 0 SEEN (<or=2+) /hpf Urine Opiates Screen (< 300 ng/mL) Urine Methadone Screen (< 300 ng/mL) Ur Barbiturates Screen (< 200 ng/mL) Ur Phencyclidine Scrn (< 25 ng/mL) Ur Amphetamines Screen (<1000 ng/mL) U Methamphetamin-MDMA (< 500 ng/mL) U Benzodiazepines Scrn (< 200 ng/mL) Urine Cocaine Screen (< 300 ng/mL) U Cannabinoids Screen (< 50 ng/mL) Ur Drug Screen Comment Ethyl Alcohol mg/dL POC Glucose (70-110) mg/dL 09/21/18 09/21/18 09/21/18 Range/Units 21:10 16:42 11:00 WBC (4.4-11.0) K/mm3 RBC (4.6-6.2) M/mm3 Hgb (13.0-16.5) g/dl Hct (40-54) % MCV (80-94) fL MCH (27.0-32.0) pg MCHC (32-36) g/gl RDW (11.6-14.6) % RDW Differential (35.1-43.9) fl Plt Count (150-450) K/mm3 MPV (6.2-12.0) fl Immature Gran % (Auto) (0.0-0.9) % Neut % (Auto) (47-70) % Lymph % (Auto) (19-41) % Sullivan % (Auto) (0-10) % Eos % (Auto) (0-5) % Baso % (Auto) (0-1) % Absolute Neuts (auto) (2.0-7.7) X10^3/uL Absolute Lymphs (auto) (0.83-4.51) X10^3/ul Total Counted PT (11.7-14.9) SECONDS INR APTT (24.1-36.2) Seconds Sodium (136-145) mmol/L Potassium (3.5-5.1) mmol/L Chloride (98-107) mmol/L Carbon Dioxide (21.0-32.0) mmol/L Anion Gap (5-15) BUN (7-18) mg/dL Creatinine (0.70-1.30) mg/dL Estim Creat Clear Calc ml/min Est GFR (MDRD) Af Amer (>60) mL/min Est GFR (MDRD) Non-Af (>60) mL/min BUN/Creatinine Ratio (10-20) RATIO Glucose (74-106) mg/dL Calcium (8.5-10.1) mg/dL Phosphorus (2.5-4.9) mg/dL Magnesium (1.6-2.6) mg/dL Total Bilirubin (0.20-1.00) mg/dL AST (15-37) U/L ALT (16-61) U/L Alkaline Phosphatase (45-117) U/L Troponin I (<0.045) ng/mL B-Natriuretic Peptide (0-100) pg/mL Total Protein (6.4-8.2) g/dL Albumin (3.2-5.0) g/dL Globulin (2.2-4.2) g/dL Albumin/Globulin Ratio (0.9-2.4) RATIO Triglycerides ( - 199) mg/dL Cholesterol (200) mg/dL LDL Cholesterol (0-130) mg/dL VLDL Cholesterol (5-40) mg/dL HDL Cholesterol (40 - ) mg/dL TSH (0.358-3.74) uIU/mL Urine Color (Yellow) Urine Clarity (Clear) Urine pH (5.0 - 8.0) Ur Specific [place] (1.002-1.030) Urine Protein (Negative) mg/dl Urine Glucose (UA) (Normal) mg/dl Urine Ketones (Negative) mg/dl Urine Occult Blood (Negative) /ul Urine Nitrite (Negative) Urine Bilirubin (Negative) mg/dL Urine Urobilinogen (Normal) mg/dl Ur Leukocyte Esterase (Negative) /ul Urine RBC (0-5) /hpf Urine WBC (0-5) /hpf Ur Squamous Epith Cells (0-5) /hpf Urine Bacteria (None Seen) /hpf Urine Mucus (<or=2+) /hpf Urine Opiates Screen (< 300 ng/mL) Urine Methadone Screen (< 300 ng/mL) Ur Barbiturates Screen (< 200 ng/mL) Ur Phencyclidine Scrn (< 25 ng/mL) Ur Amphetamines Screen (<1000 ng/mL) U Methamphetamin-MDMA (< 500 ng/mL) U Benzodiazepines Scrn (< 200 ng/mL) Urine Cocaine Screen (< 300 ng/mL) U Cannabinoids Screen (< 50 ng/mL) Ur Drug Screen Comment Ethyl Alcohol mg/dL POC Glucose 152 H 151 H 277 H (70-110) mg/dL 09/21/18 09/20/18 09/20/18 Range/Units 06:31 21:59 17:52 WBC (4.4-11.0) K/mm3 RBC (4.6-6.2) M/mm3 Hgb (13.0-16.5) g/dl Hct (40-54) % MCV (80-94) fL MCH (27.0-32.0) pg MCHC (32-36) g/gl RDW (11.6-14.6) % RDW Differential (35.1-43.9) fl Plt Count (150-450) K/mm3 MPV (6.2-12.0) fl Immature Gran % (Auto) (0.0-0.9) % Neut % (Auto) (47-70) % Lymph % (Auto) (19-41) % Sullivan % (Auto) (0-10) % Eos % (Auto) (0-5) % Baso % (Auto) (0-1) % Absolute Neuts (auto) (2.0-7.7) X10^3/uL Absolute Lymphs (auto) (0.83-4.51) X10^3/ul Total Counted PT (11.7-14.9) SECONDS INR APTT (24.1-36.2) Seconds Sodium (136-145) mmol/L Potassium (3.5-5.1) mmol/L Chloride (98-107) mmol/L Carbon Dioxide (21.0-32.0) mmol/L Anion Gap (5-15) BUN (7-18) mg/dL Creatinine (0.70-1.30) mg/dL Estim Creat Clear Calc ml/min Est GFR (MDRD) Af Amer (>60) mL/min Est GFR (MDRD) Non-Af (>60) mL/min BUN/Creatinine Ratio (10-20) RATIO Glucose (74-106) mg/dL Calcium (8.5-10.1) mg/dL Phosphorus (2.5-4.9) mg/dL Magnesium (1.6-2.6) mg/dL Total Bilirubin (0.20-1.00) mg/dL AST (15-37) U/L ALT (16-61) U/L Alkaline Phosphatase (45-117) U/L Troponin I (<0.045) ng/mL B-Natriuretic Peptide (0-100) pg/mL Total Protein (6.4-8.2) g/dL Albumin (3.2-5.0) g/dL Globulin (2.2-4.2) g/dL Albumin/Globulin Ratio (0.9-2.4) RATIO Triglycerides ( - 199) mg/dL Cholesterol (200) mg/dL LDL Cholesterol (0-130) mg/dL VLDL Cholesterol (5-40) mg/dL HDL Cholesterol (40 - ) mg/dL TSH (0.358-3.74) uIU/mL Urine Color (Yellow) Urine Clarity (Clear) Urine pH (5.0 - 8.0) Ur Specific [place] (1.002-1.030) Urine Protein (Negative) mg/dl Urine Glucose (UA) (Normal) mg/dl Urine Ketones (Negative) mg/dl Urine Occult Blood (Negative) /ul Urine Nitrite (Negative) Urine Bilirubin (Negative) mg/dL Urine Urobilinogen (Normal) mg/dl Ur Leukocyte Esterase (Negative) /ul Urine RBC (0-5) /hpf Urine WBC (0-5) /hpf Ur Squamous Epith Cells (0-5) /hpf Urine Bacteria (None Seen) /hpf Urine Mucus (<or=2+) /hpf Urine Opiates Screen (< 300 ng/mL) Urine Methadone Screen (< 300 ng/mL) Ur Barbiturates Screen (< 200 ng/mL) Ur Phencyclidine Scrn (< 25 ng/mL) Ur Amphetamines Screen (<1000 ng/mL) U Methamphetamin-MDMA (< 500 ng/mL) U Benzodiazepines Scrn (< 200 ng/mL) Urine Cocaine Screen (< 300 ng/mL) U Cannabinoids Screen (< 50 ng/mL) Ur Drug Screen Comment Ethyl Alcohol mg/dL POC Glucose 122 H 157 H 206 H (70-110) mg/dL 09/20/18 09/20/1809/20/19 Range/Units 11:53 11:01 06:50 WBC (4.4-11.0) K/mm3 RBC (4.6-6.2) M/mm3 Hgb (13.0-16.5) g/dl Hct (40-54) % MCV (80-94) fL MCH (27.0-32.0) pg MCHC (32-36) g/gl RDW (11.6-14.6) % RDW Differential (35.1-43.9) fl Plt Count (150-450) K/mm3 MPV (6.2-12.0) fl Immature Gran % (Auto) (0.0-0.9) % Neut % (Auto) (47-70) % Lymph % (Auto) (19-41) % Sullivan % (Auto) (0-10) % Eos % (Auto) (0-5) % Baso % (Auto) (0-1) % Absolute Neuts (auto) (2.0-7.7) X10^3/uL Absolute Lymphs (auto) (0.83-4.51) X10^3/ul Total Counted PT (11.7-14.9) SECONDS INR APTT (24.1-36.2) Seconds Sodium (136-145) mmol/L Potassium (3.5-5.1) mmol/L Chloride (98-107) mmol/L Carbon Dioxide (21.0-32.0) mmol/L Anion Gap (5-15) BUN (7-18) mg/dL Creatinine (0.70-1.30) mg/dL Estim Creat Clear Calc ml/min Est GFR (MDRD) Af Amer (>60) mL/min Est GFR (MDRD) Non-Af (>60) mL/min BUN/Creatinine Ratio (10-20) RATIO Glucose (74-106) mg/dL Calcium (8.5-10.1) mg/dL Phosphorus (2.5-4.9) mg/dL Magnesium (1.6-2.6) mg/dL Total Bilirubin (0.20-1.00) mg/dL AST (15-37) U/L ALT (16-61) U/L Alkaline Phosphatase (45-117) U/L Troponin I (<0.045) ng/mL B-Natriuretic Peptide (0-100) pg/mL Total Protein (6.4-8.2) g/dL Albumin (3.2-5.0) g/dL Globulin (2.2-4.2) g/dL Albumin/Globulin Ratio (0.9-2.4) RATIO Triglycerides ( - 199) mg/dL Cholesterol (200) mg/dL LDL Cholesterol (0-130) mg/dL VLDL Cholesterol (5-40) mg/dL HDL Cholesterol (40 - ) mg/dL TSH (0.358-3.74) uIU/mL Urine Color (Yellow) Urine Clarity (Clear) Urine pH (5.0 - 8.0) Ur Specific [place] (1.002-1.030) Urine Protein (Negative) mg/dl Urine Glucose (UA) (Normal) mg/dl Urine Ketones (Negative) mg/dl Urine Occult Blood (Negative) /ul Urine Nitrite (Negative) Urine Bilirubin (Negative) mg/dL Urine Urobilinogen (Normal) mg/dl Ur Leukocyte Esterase (Negative) /ul Urine RBC (0-5) /hpf Urine WBC (0-5) /hpf Ur Squamous Epith Cells (0-5) /hpf Urine Bacteria (None Seen) /hpf Urine Mucus (<or=2+) /hpf Urine Opiates Screen (< 300 ng/mL) Urine Methadone Screen (< 300 ng/mL) Ur Barbiturates Screen (< 200 ng/mL) Ur Phencyclidine Scrn (< 25 ng/mL) Ur Amphetamines Screen (<1000 ng/mL) U Methamphetamin-MDMA (< 500 ng/mL) U Benzodiazepines Scrn (< 200 ng/mL) Urine Cocaine Screen (< 300 ng/mL) U Cannabinoids Screen (< 50 ng/mL) Ur Drug Screen Comment Ethyl Alcohol < 3.0 mg/dL POC Glucose 245 H 143 H (70-110) mg/dL 09/20/18 09/20/18 09/20/18 Range/Units 06:43 06:43 01:00 WBC 8.2 (4.4-11.0) K/mm3 RBC 4.19 L (4.6-6.2) M/mm3 Hgb 13.1 (13.0-16.5) g/dl Hct 38.5 L (40-54) % MCV 91.9 (80-94) fL MCH 31.3 (27.0-32.0) pg MCHC 34.0 (32-36) g/gl RDW 13.3 (11.6-14.6) % RDW Differential 44.0 H (35.1-43.9) fl Plt Count 162 (150-450) K/mm3 MPV 10.6 (6.2-12.0) fl Immature Gran % (Auto) 0.400 (0.0-0.9) % Neut % (Auto) 80.3 H (47-70) % Lymph % (Auto) 8.3 L (19-41) % Sullivan % (Auto) 8.2 (0-10) % Eos % (Auto) 2.6 (0-5) % Baso % (Auto) 0.2 (0-1) % Absolute Neuts (auto) 6.6 (2.0-7.7) X10^3/uL Absolute Lymphs (auto) 0.68 L (0.83-4.51) X10^3/ul Total Counted Not Reportable PT (11.7-14.9) SECONDS INR APTT (24.1-36.2) Seconds Sodium 141 (136-145) mmol/L Potassium 3.5 (3.5-5.1) mmol/L Chloride 103 (98-107) mmol/L Carbon Dioxide 30.0 (21.0-32.0) mmol/L Anion Gap 8 (5-15) BUN 24 H (7-18) mg/dL Creatinine 1.23 (0.70-1.30) mg/dL Estim Creat Clear Calc 51.75 ml/min Est GFR (MDRD) Af Amer 74 (>60) mL/min Est GFR (MDRD) Non-Af 61 (>60) mL/min BUN/Creatinine Ratio 19.5 (10-20) RATIO Glucose 136 H (74-106) mg/dL Calcium 9.1 (8.5-10.1) mg/dL Phosphorus (2.5-4.9) mg/dL Magnesium (1.6-2.6) mg/dL Total Bilirubin (0.20-1.00) mg/dL AST (15-37) U/L ALT (16-61) U/L Alkaline Phosphatase (45-117) U/L Troponin I (<0.045) ng/mL B-Natriuretic Peptide (0-100) pg/mL Total Protein (6.4-8.2) g/dL Albumin (3.2-5.0) g/dL Globulin (2.2-4.2) g/dL Albumin/Globulin Ratio (0.9-2.4) RATIO Triglycerides 69 ( - 199) mg/dL Cholesterol 126 (200) mg/dL LDL Cholesterol 71 (0-130) mg/dL VLDL Cholesterol 14 (5-40) mg/dL HDL Cholesterol 41 (40 - ) mg/dL TSH (0.358-3.74) uIU/mL Urine Color (Yellow) Urine Clarity (Clear) Urine pH (5.0 - 8.0) Ur Specific [place] (1.002-1.030) Urine Protein (Negative) mg/dl Urine Glucose (UA) (Normal) mg/dl Urine Ketones (Negative) mg/dl Urine Occult Blood (Negative) /ul Urine Nitrite (Negative) Urine Bilirubin (Negative) mg/dL Urine Urobilinogen (Normal) mg/dl Ur Leukocyte Esterase (Negative) /ul Urine RBC (0-5) /hpf Urine WBC (0-5) /hpf Ur Squamous Epith Cells (0-5) /hpf Urine Bacteria (None Seen) /hpf Urine Mucus (<or=2+) /hpf Urine Opiates Screen NEGATIVE (< 300 ng/mL) Urine Methadone Screen NEGATIVE (< 300 ng/mL) Ur Barbiturates Screen NEGATIVE (< 200 ng/mL) Ur Phencyclidine Scrn NEGATIVE (< 25 ng/mL) Ur Amphetamines Screen NEGATIVE (<1000 ng/mL) U Methamphetamin-MDMA NEGATIVE (< 500 ng/mL) U Benzodiazepines Scrn NEGATIVE (< 200 ng/mL) Urine Cocaine Screen NEGATIVE (< 300 ng/mL) U Cannabinoids Screen NEGATIVE (< 50 ng/mL) Ur Drug Screen Comment Ethyl Alcohol mg/dL POC Glucose (70-110) mg/dL 09/19/18 09/19/18 09/19/18 Range/Units 22:42 21:49 19:23 WBC (4.4-11.0) K/mm3 RBC (4.6-6.2) M/mm3 Hgb (13.0-16.5) g/dl Hct (40-54) % MCV (80-94) fL MCH (27.0-32.0) pg MCHC (32-36) g/gl RDW (11.6-14.6) % RDW Differential (35.1-43.9) fl Plt Count (150-450) K/mm3 MPV (6.2-12.0) fl Immature Gran % (Auto) (0.0-0.9) % Neut % (Auto) (47-70) % Lymph % (Auto) (19-41) % Sullivan % (Auto) (0-10) % Eos % (Auto) (0-5) % Baso % (Auto) (0-1) % Absolute Neuts (auto) (2.0-7.7) X10^3/uL Absolute Lymphs (auto) (0.83-4.51) X10^3/ul Total Counted PT (11.7-14.9) SECONDS INR APTT (24.1-36.2) Seconds Sodium (136-145) mmol/L Potassium (3.5-5.1) mmol/L Chloride (98-107) mmol/L Carbon Dioxide (21.0-32.0) mmol/L Anion Gap (5-15) BUN (7-18) mg/dL Creatinine (0.70-1.30) mg/dL Estim Creat Clear Calc ml/min Est GFR (MDRD) Af Amer (>60) mL/min Est GFR (MDRD) Non-Af (>60) mL/min BUN/Creatinine Ratio (10-20) RATIO Glucose (74-106) mg/dL Calcium (8.5-10.1) mg/dL Phosphorus (2.5-4.9) mg/dL Magnesium (1.6-2.6) mg/dL Total Bilirubin (0.20-1.00) mg/dL AST (15-37) U/L ALT (16-61) U/L Alkaline Phosphatase (45-117) U/L Troponin I 0.148 H 0.150 H (<0.045) ng/mL B-Natriuretic Peptide (0-100) pg/mL Total Protein (6.4-8.2) g/dL Albumin (3.2-5.0) g/dL Globulin (2.2-4.2) g/dL Albumin/Globulin Ratio (0.9-2.4) RATIO Triglycerides ( - 199) mg/dL Cholesterol (200) mg/dL LDL Cholesterol (0-130) mg/dL VLDL Cholesterol (5-40) mg/dL HDL Cholesterol (40 - ) mg/dL TSH (0.358-3.74) uIU/mL Urine Color (Yellow) Urine Clarity (Clear) Urine pH (5.0 - 8.0) Ur Specific [place] (1.002-1.030) Urine Protein (Negative) mg/dl Urine Glucose (UA) (Normal) mg/dl Urine Ketones (Negative) mg/dl Urine Occult Blood (Negative) /ul Urine Nitrite (Negative) Urine Bilirubin (Negative) mg/dL Urine Urobilinogen (Normal) mg/dl Ur Leukocyte Esterase (Negative) /ul Urine RBC (0-5) /hpf Urine WBC (0-5) /hpf Ur Squamous Epith Cells (0-5) /hpf Urine Bacteria (None Seen) /hpf Urine Mucus (<or=2+) /hpf Urine Opiates Screen (< 300 ng/mL) Urine Methadone Screen (< 300 ng/mL) Ur Barbiturates Screen (< 200 ng/mL) Ur Phencyclidine Scrn (< 25 ng/mL) Ur Amphetamines Screen (<1000 ng/mL) U Methamphetamin-MDMA (< 500 ng/mL) U Benzodiazepines Scrn (< 200 ng/mL) Urine Cocaine Screen (< 300 ng/mL) U Cannabinoids Screen (< 50 ng/mL) Ur Drug Screen Comment Ethyl Alcohol mg/dL POC Glucose 195 H (70-110) mg/dL 09/19/18 09/19/18 09/19/18 Range/Units 19:00 08:45 08:45 WBC (4.4-11.0) K/mm3 RBC (4.6-6.2) M/mm3 Hgb (13.0-16.5) g/dl Hct (40-54) % MCV (80-94) fL MCH (27.0-32.0) pg MCHC (32-36) g/gl RDW (11.6-14.6) % RDW Differential (35.1-43.9) fl Plt Count (150-450) K/mm3 MPV (6.2-12.0) fl Immature Gran % (Auto) (0.0-0.9) % Neut % (Auto) (47-70) % Lymph % (Auto) (19-41) % Sullivan % (Auto) (0-10) % Eos % (Auto) (0-5) % Baso % (Auto) (0-1) % Absolute Neuts (auto) (2.0-7.7) X10^3/uL Absolute Lymphs (auto) (0.83-4.51) X10^3/ul Total Counted PT (11.7-14.9) SECONDS INR APTT (24.1-36.2) Seconds Sodium (136-145) mmol/L Potassium (3.5-5.1) mmol/L Chloride (98-107) mmol/L Carbon Dioxide (21.0-32.0) mmol/L Anion Gap (5-15) BUN (7-18) mg/dL Creatinine (0.70-1.30) mg/dL Estim Creat Clear Calc ml/min Est GFR (MDRD) Af Amer (>60) mL/min Est GFR (MDRD) Non-Af (>60) mL/min BUN/Creatinine Ratio (10-20) RATIO Glucose (74-106) mg/dL Calcium (8.5-10.1) mg/dL Phosphorus 2.5 (2.5-4.9) mg/dL Magnesium 1.6 (1.6-2.6) mg/dL Total Bilirubin (0.20-1.00) mg/dL AST (15-37) U/L ALT (16-61) U/L Alkaline Phosphatase (45-117) U/L Troponin I (<0.045) ng/mL B-Natriuretic Peptide 218.6 H (0-100) pg/mL Total Protein (6.4-8.2) g/dL Albumin (3.2-5.0) g/dL Globulin (2.2-4.2) g/dL Albumin/Globulin Ratio (0.9-2.4) RATIO Triglycerides ( - 199) mg/dL Cholesterol (200) mg/dL LDL Cholesterol (0-130) mg/dL VLDL Cholesterol (5-40) mg/dL HDL Cholesterol (40 - ) mg/dL TSH 1.61 (0.358-3.74) uIU/mL Urine Color (Yellow) Urine Clarity (Clear) Urine pH (5.0 - 8.0) Ur Specific [place] (1.002-1.030) Urine Protein (Negative) mg/dl Urine Glucose (UA) (Normal) mg/dl Urine Ketones (Negative) mg/dl Urine Occult Blood (Negative) /ul Urine Nitrite (Negative) Urine Bilirubin (Negative) mg/dL Urine Urobilinogen (Normal) mg/dl Ur Leukocyte Esterase (Negative) /ul Urine RBC (0-5) /hpf Urine WBC (0-5) /hpf Ur Squamous Epith Cells (0-5) /hpf Urine Bacteria (None Seen) /hpf Urine Mucus (<or=2+) /hpf Urine Opiates Screen (< 300 ng/mL) Urine Methadone Screen (< 300 ng/mL) Ur Barbiturates Screen (< 200 ng/mL) Ur Phencyclidine Scrn (< 25 ng/mL) Ur Amphetamines Screen (<1000 ng/mL) U Methamphetamin-MDMA (< 500 ng/mL) U Benzodiazepines Scrn (< 200 ng/mL) Urine Cocaine Screen (< 300 ng/mL) U Cannabinoids Screen (< 50 ng/mL) Ur Drug Screen Comment Ethyl Alcohol mg/dL POC Glucose 252 H (70-110) mg/dL 09/19/18 09/19/18 Range/Units 08:45 08:45 WBC 8.8 (4.4-11.0) K/mm3 RBC 4.15 L (4.6-6.2) M/mm3 Hgb 13.1 (13.0-16.5) g/dl Hct 37.8 L (40-54) % MCV 91.1 (80-94) fL MCH 31.6 (27.0-32.0) pg MCHC 34.7 (32-36) g/gl RDW 13.4 (11.6-14.6) % RDW Differential 43.8 (35.1-43.9) fl Plt Count 174 (150-450) K/mm3 MPV 10.4 (6.2-12.0) fl Immature Gran % (Auto) 0.200 (0.0-0.9) % Neut % (Auto) 85.4 H (47-70) % Lymph % (Auto) 7.1 L (19-41) % Sullivan % (Auto) 5.8 (0-10) % Eos % (Auto) 1.3 (0-5) % Baso % (Auto) 0.2 (0-1) % Absolute Neuts (auto) 7.5 (2.0-7.7) X10^3/uL Absolute Lymphs (auto) 0.62 L (0.83-4.51) X10^3/ul Total Counted Not Reportable PT (11.7-14.9) SECONDS INR APTT (24.1-36.2) Seconds Sodium 135 L (136-145) mmol/L Potassium 4.7 (3.5-5.1) mmol/L Chloride 105 (98-107) mmol/L Carbon Dioxide 26.0 (21.0-32.0) mmol/L Anion Gap 4 L (5-15) BUN 24 H (7-18) mg/dL Creatinine 1.16 (0.70-1.30) mg/dL Estim Creat Clear Calc 54.87 ml/min Est GFR (MDRD) Af Amer 79 (>60) mL/min Est GFR (MDRD) Non-Af 66 (>60) mL/min BUN/Creatinine Ratio 20.7 H (10-20) RATIO Glucose 186 H (74-106) mg/dL Calcium 8.8 (8.5-10.1) mg/dL Phosphorus (2.5-4.9) mg/dL Magnesium (1.6-2.6) mg/dL Total Bilirubin 1.10 H (0.20-1.00) mg/dL AST 25 (15-37) U/L ALT 15 L (16-61) U/L Alkaline Phosphatase 76 (45-117) U/L Troponin I 0.095 H (<0.045) ng/mL B-Natriuretic Peptide (0-100) pg/mL Total Protein 7.4 (6.4-8.2) g/dL Albumin 3.5 (3.2-5.0) g/dL Globulin 3.9 (2.2-4.2) g/dL Albumin/Globulin Ratio 0.9 (0.9-2.4) RATIO Triglycerides ( - 199) mg/dL Cholesterol (200) mg/dL LDL Cholesterol (0-130) mg/dL VLDL Cholesterol (5-40) mg/dL HDL Cholesterol (40 - ) mg/dL TSH (0.358-3.74) uIU/mL Urine Color (Yellow) Urine Clarity (Clear) Urine pH (5.0 - 8.0) Ur Specific [place] (1.002-1.030) Urine Protein (Negative) mg/dl Urine Glucose (UA) (Normal) mg/dl Urine Ketones (Negative) mg/dl Urine Occult Blood (Negative) /ul Urine Nitrite (Negative) Urine Bilirubin (Negative) mg/dL Urine Urobilinogen (Normal) mg/dl Ur Leukocyte Esterase (Negative) /ul Urine RBC (0-5) /hpf Urine WBC (0-5) /hpf Ur Squamous Epith Cells (0-5) /hpf Urine Bacteria (None Seen) /hpf Urine Mucus (<or=2+) /hpf Urine Opiates Screen (< 300 ng/mL) Urine Methadone Screen (< 300 ng/mL) Ur Barbiturates Screen (< 200 ng/mL) Ur Phencyclidine Scrn (< 25 ng/mL) Ur Amphetamines Screen (<1000 ng/mL) U Methamphetamin-MDMA (< 500 ng/mL) U Benzodiazepines Scrn (< 200 ng/mL) Urine Cocaine Screen (< 300 ng/mL) U Cannabinoids Screen (< 50 ng/mL) Ur Drug Screen Comment Ethyl Alcohol mg/dL POC Glucose (70-110) mg/dL Dr. Olmedo and Dr. Onofre [facility] Operations: None Procedures: 2-D Echocardiogram - Interpretation Summary Normal LV size. The estimated ejection fraction is 35 %. Moderate segmental systolic dysfunction (see wall motion). There are regional wall motion abnormalities as specified. ICD or pacer leads identified within the right ventricle. Mild diffuse aortic valve thickening. Mild aortic stenosis. Calculated aortic valve area (continuity equation) is 1.6 cm2. Contrast injection was performed. 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 No ischemia noted Summary of Care Provided: The patient is a 73-year-old male with a past medical history of paroxysmal atrial fibrillation, coronary artery disease with history of PCI s/p JOSE ENRIQUE-SVG-D1 09/20/15 @ [facility], [facility] X 3 stents @ [facility] 02/14 Proximal mid & distal SVG to first DX of LAD; CABG x3 EASLEY to LAD, SVG to the LCX, SVG to the RCA 1997, hypertension, hyperlipidemia, stage II diastolic dysfunction, mild concentric left ventricular hypertrophy, pulmonary hypertension with a PA pressure estimated at 45 on echocardiogram done in June 2018, chronic systolic congestive heart failure, ischemic cardiomyopathy with a 35% ejection fraction, AICD placement for ventricular tachycardia, diabetes mellitus type 2 and alcohol abuse who presented to the emergency department at [facility] on 09/19/2018 complaining of palpitations and progressively worsening dyspnea over the preceding 4 days. Additionally he had increasing lower extremity edema. He told the admitting hospitalist that he had run out of his metolazone 3 days prior to presenting to the emergency room. Vital signs in the emergency department were temp 98.4, pulse rate 104, blood pressure 142/98, respiratory rate 20 and he was 95% saturated on a 2 L nasal cannula. White blood cell count was normal at 8.8 with a left shift. Hemoglobin and platelets were within normal limits and the MCV and MCH were normal. Sodium was mildly decreased at 135 and the potassium was 4.7. The BUN was 24 and the creatinine was 1.16. The creatinine in the past 2 years has ranged from 1.16-1.6. Random blood sugar was 186. LFTs were unremarkable. Magnesium was 1.6 and the phosphorus was normal at 2.5. The initial troponin was elevated at 0.095. BNP was 218. TSH was normal at 1.6. Urine tox screen was negative. Chest x-ray showed cardiomegaly with blunting of both costophrenic angles. CTA of the chest was ordered and showed no evidence of pulmonary embolism. There were small bilateral pleural effusions with left pleural calcifications. There was an area in the right lower lobe which measured 5.5 cm which the radiologist felt was an area of atelectasis versus neoplasm. 1 month follow-up chest CT was recommended. EKG revealed atrial fibrillation with QT prolongation and no ST elevation or significant ST or T wave changes. He was admitted to a monitored bed on PCU and started on scheduled intravenous Lasix. Cardiology was consulted. Serial cardiac enzymes were ordered. He was started on Lasix intravenously. The second and third troponin were 0.15 and 0.148 respectively and they were not trending. Metoprolol XL was increased to 75 mg BID and the heart rate was better controlled. He was seen in consultation by Dr. Olmedo from cardiology who recommended a cardiac catheterization on Saturday however, on Saturday he was seen by Dr. Onofre who takes care of him as an OP and he felt a pharmacologic nuclear stress test should be done first. Echocardiogram showed an ejection fraction of 35% which was unchanged from prior exams. There was moderate segmental systolic dysfunction and mild aortic stenosis. The calculated aortic valve area was 1.6 cm?. 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 The patient was discharged home with the following changes in his medications. Lasix was increased to 40 mg p.o. twice daily, metoprolol XL was increased to 75 mg p.o. twice daily and he was started on Eliquis 5 mg p.o. daily. His related that he continues to drink heavily and he was advised to discontinue all alcohol due to severe cardiomyopathy and AF. He will follow up with Dr. Shin in 5-7 days and should have a BMP to check the renal function and the potassium. He will follow up with Dr. Onofre in 1 month. PHYSICAL EXAM: GENERAL: alert, oriented X 3, Cooperative, NAD ORAL: moist mucosa, no mucosal lesions NECK: No JVD, supple, trachea midline LUNGS: CTA, symmetric chest expansion, no wheezes, no rhonchi, no rales HEART: Irregularly irregular, Normal S1 and S2, no rub, no gallop TELEMETRY: Atrial fibrillation/flutter with PVCs and rare couplet ABDOMEN: soft, NT, ND, BS present, no guarding with palpation EXTREMITIES: no edema, no cyanosis, no calf tenderness SKIN: No rashes, no breakdown NEUROLOGIC: no focal neurologic deficits PSYCH: appropriate, normal affect, pleasant This note was generated with [employer] dictation software. It may contain incorrect words, spelling, and punctuation that were not noted in checking the note before signing. Patient Problems: Active and Suspected Problems (Last Updated 09/22/18 @ 18:22 by Tashia Ma DO) Paroxysmal atrial fibrillation with rapid ventricular response (Acute) Elevated troponin (Acute) Acute on chronic systolic (congestive) heart failure (Acute) - Physical Exam Vital Signs Temp Pulse Resp BP Pulse Ox 98.1 F 85 16 132/76 H 96 09/22/18 13:34 09/22/18 15:00 09/22/18 13:34 09/22/18 13:34 09/22/18 13:34 Oxygen Flow Rate (L/min) 2 Oxygen Delivery Method Room Air Weight: 185 lb 13.595 oz Body Mass Index (BMI) 28.8 Intake and Output for Last 24 Hours 09/20/18 09/21/18 09/22/18 23:59 23:59 23:59 Intake Total 500 / 500 600 / 600 Output Total 2390 / 2390 1150 / 1150 250 / 250 Balance -1890 / -1890 -550 / -550 -250 / -250 Laboratory Tests Past 24 Hrs 09/21/18 09/22/18 09/22/18 23:30 05:20 05:20 WBC RBC Hgb Hct MCV MCH MCHC RDW RDW Differential Plt Count MPV Immature Gran % (Auto) Neut % (Auto) Lymph % (Auto) Sullivan % (Auto) Eos % (Auto) Baso % (Auto) Absolute Neuts (auto) Absolute Lymphs (auto) Total Counted PT 14.4 INR 1.1 APTT 46.0 H Sodium 140 Potassium 4.0 Chloride 102 Carbon Dioxide 30.0 Anion Gap 8 BUN 26 H Creatinine 1.08 Estim Creat Clear Calc 58.94 Est GFR (MDRD) Af Amer 86 Est GFR (MDRD) Non-Af 71 BUN/Creatinine Ratio 24.1 H Glucose 120 H Calcium 8.8 Magnesium 1.9 Urine Color Yellow Urine Clarity Clear Urine pH 6.5 Ur Specific [place] 1.010 Urine Protein Negative Urine Glucose (UA) Normal Urine Ketones Negative Urine Occult Blood Negative Urine Nitrite Negative Urine Bilirubin Negative Urine Urobilinogen 1 H Ur Leukocyte Esterase Negative Urine RBC 0 SEEN Urine WBC 0 SEEN Ur Squamous Epith Cells 0 SEEN Urine Bacteria 0 SEEN Urine Mucus 0 SEEN 09/22/18 05:20 WBC 8.3 RBC 4.13 L Hgb 12.9 L Hct 37.8 L MCV 91.5 MCH 31.2 MCHC 34.1 RDW 13.0 RDW Differential 42.3 Plt Count 175 MPV 10.4 Immature Gran % (Auto) 0.400 Neut % (Auto) 76.0 H Lymph % (Auto) 11.4 L Sullivan % (Auto) 7.5 Eos % (Auto) 4.6 Baso % (Auto) 0.1 Absolute Neuts (auto) 6.3 Absolute Lymphs (auto) 0.95 Total Counted Not Reportable PT INR APTT Sodium Potassium Chloride Carbon Dioxide Anion Gap BUN Creatinine Estim Creat Clear Calc Est GFR (MDRD) Af Amer Est GFR (MDRD) Non-Af BUN/Creatinine Ratio Glucose Calcium Magnesium Urine Color Urine Clarity Urine pH Ur Specific [place] Urine Protein Urine Glucose (UA) Urine Ketones Urine Occult Blood Urine Nitrite Urine Bilirubin Urine Urobilinogen Ur Leukocyte Esterase Urine RBC Urine WBC Ur Squamous Epith Cells Urine Bacteria Urine Mucus POC Glucose 09/22/18 09/22/18 09/21/18 16:57 06:24 21:10 POC Glucose 356 H 124 H 152 H Discharge Activity: Return to Normal Activity Call your doctor if you observe: Fever of 101 or Higher, Shortness of breath, Dizziness, Fainting spells, Swelling in the ankles, Chest pain, - - Bleeding form the nose, mouth, anus or penis. Large bruises. Home Medications: Medications to take at Discharge Insulin Detemir [Levemir FlexPen] 4 units SC QHS 02/16/16 omeprazole 20 mg capsule,delayed release 20 mg PO DAILY PRN 05/28/17 magnesium oxide 400 mg (241.3 mg magnesium) tablet 400 mg PO DAILY #90 tab 11/21/17 atorvastatin 80 mg tablet 80 mg PO QHS #90 tab 04/16/18 potassium chloride ER 20 mEq tablet,extended release 60 meq PO DAILY #90 tab 06/24/18 clopidogrel 75 mg tablet 75 mg PO DAILY #90 tab 09/01/18 metolazone 2.5 mg tablet 2.5 mg PO DAILY PRN #30 tab 09/17/18 Amlodipine Besylate [Norvasc] 5 mg PO DAILY 09/19/18 Aspirin [Aspir-Low] 81 mg PO DAILY 09/19/18 Insulin Glargine,Hum.rec.anlog [Basaglar Kwikpen U-100] 22 unit SQ DAILY 09/19/18 Losartan Potassium [Cozaar] 25 mg PO DAILY 09/19/18 Apixaban [Eliquis] 5 mg PO BID #60 tab 09/22/18 Furosemide [Lasix] 40 mg PO BID #60 tab 09/22/18 Metoprolol(XL)Succ [Toprol Xl (Beta Monica)] 75 mg PO BID #180 tab 09/22/18 Multivitamins,Ther W-Minerals [Multivitamin With Minerals] 1 tab PO DAILYCM tab 09/22/18 Following Prescrptions Were Given to Patient: Apixaban [Eliquis] 5 mg PO BID #60 tab Transmission Status: Received by [facility] Furosemide [Lasix] 40 mg PO BID #60 tab Transmission Status: Pending to [facility] Metoprolol(XL)Succ [Toprol Xl (Beta Monica)] 75 mg PO BID #180 tab Transmission Status: Received by [facility] Primary Care Physician: Pedro Luis Shin MD [Primary Care Provider] - Please follow up with your Primary Care Physician in: 5-7 days Please Follow Up With: Tien Onofre MD When: 1 month Patient Instructions: What Is Dilated Cardiomyopathy?, Signs of Alcohol Addiction (Alcoholism) Disposition: Home Minutes spent on discharge:: 35 Medical Necessity - Tobacco Use Smoking Status: Never smoker Tobacco Use: Non-smoker Meaningful Use Info Meaningful Use Diagnoses (Choose all that apply): CHF - CHF CORINE/ARB ordered at discharge?: Yes Documented LVEF (%): 35 Code Visit Inpatient E&M: 01025 Disch Hosp
--- NOTE | 2018-09-22 19:40 | NURSING ---
Samuel $470.00 per month. Free 30 day trial offer given with instructions to follow up with PCP for alternatives.
== END 2018-09-22 19:09 | disposition home or self-care (01) | DRG 282 ==
LOC: ED 08:50 → PCU 16:41
PROVIDERS: Internal Medicine Interventional Cardiology; Admitting Provider Family Medicine; Emergency Provider Emergency Medicine; Family Provider Family Medicine; PCP Family Medicine; Visit Provider Internal Medicine
DX: I11.0 Hypertensive heart disease with heart failure (principal); I21.4 Non-ST elevation (NSTEMI) myocardial infarction; I50.23 Acute on chronic systolic (congestive) heart failure; I48.0 Paroxysmal atrial fibrillation; Z79.02 Long term (current) use of antithrombotics/antiplatelets; Z95.1 Presence of aortocoronary bypass graft; I25.10 Atherosclerotic heart disease of native coronary artery without angina pectoris; K21.9 Gastro-esophageal reflux disease without esophagitis; E78.5 Hyperlipidemia, unspecified; I25.5 Ischemic cardiomyopathy; I36.1 Nonrheumatic tricuspid (valve) insufficiency; I27.21 Secondary pulmonary arterial hypertension; Z95.810 Presence of automatic (implantable) cardiac defibrillator; I25.2 Old myocardial infarction; F10.10 Alcohol abuse, uncomplicated; G47.33 Obstructive sleep apnea (adult) (pediatric); E11.51 Type 2 diabetes mellitus with diabetic peripheral angiopathy without gangrene; Z79.4 Long term (current) use of insulin; Z79.899 Other long term (current) drug therapy; Z79.82 Long term (current) use of aspirin; Z95.5 Presence of coronary angioplasty implant and graft; I35.0 Nonrheumatic aortic (valve) stenosis; E83.42 Hypomagnesemia
CPT/HCPCS: 36415; 71046; 71275; 78452; 80048; 80053; 80061; 80307; 80320; 81001; 82962; 83735; 83880; 84100; 84443; 84484; 85025; 85610; 85730; 93005; 93017; 93306; 97161; 97165; 97802; 99285; A9500; Q9957; Q9967; A4216; C8929; G0480; J1940; J2785

== ENCOUNTER → 2018-10-17 | Outpatient (CLI) | payer MEDICARE, OTHER, SELFPAY ==
[2018-10-17 10:47] VITALS: BMI 28.5
[2018-10-17 13:22] LABS: Anion Gap 7 (5-15); BUN 45 mg/dL (7-18); BUN/Creat Ratio 28.5 RATIO (10-20); Calcium,Total 9.6 mg/dL (8.5-10.1); Chloride 99 mmol/L (98-107); Creatinine, Serum 1.58 mg/dL (0.70-1.30); EST Glomerular Filtration Rate 46 mL/min (>60); Est Glom Filt Rate - Afr Amer 56 mL/min (>60); Glucose 97 mg/dL (74-106); Potassium 3.5 mmol/L (3.5-5.1); Sodium Level 137 mmol/L (136-145)
== END | disposition home or self-care (01) ==
PROVIDERS: Family Provider Family Medicine; PCP Family Medicine; Referring Provider Internal Medicine Cardiovascular Disease; Visit Provider Internal Medicine Cardiovascular Disease
DX: I50.23 Acute on chronic systolic (congestive) heart failure (principal)
CPT/HCPCS: 36415; 80048

== ENCOUNTER 2018-12-04 09:21 | Outpatient (RCR) | payer MEDICARE, OTHER, SELFPAY ==
[2018-10-17 10:47] VITALS: BMI 28.5
[2018-12-04 10:45] LABS: International Normalized Ratio 2.3; Prothrombin Time (Protime)PT. 25.7 SECONDS (11.7-14.9)
== END 2018-12-04 11:00 | disposition home or self-care (01) ==
LOC: LAB 09:21
PROVIDERS: Family Provider Family Medicine; PCP Family Medicine; Referring Provider Internal Medicine Cardiovascular Disease; Visit Provider Internal Medicine Cardiovascular Disease
DX: I48.92 Unspecified atrial flutter (principal); I48.0 Paroxysmal atrial fibrillation; Z79.01 Long term (current) use of 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s
CPT/HCPCS: 36415; 85610

== ENCOUNTER 2019-01-22 11:15 | Outpatient (RCR) | payer MEDICARE, OTHER, SELFPAY ==
[2018-10-17 10:47] VITALS: BMI 28.5
[2019-01-12 11:55] LABS: Prothrombin Time (Protime)PT. 35.3 SECONDS (11.7-14.9)
[2019-01-12 12:08] LABS: International Normalized Ratio 3.5
[2019-01-22 13:11] LABS: International Normalized Ratio 2.9; Prothrombin Time (Protime)PT. 30.5 SECONDS (11.7-14.9)
== END 2019-01-22 18:00 | disposition home or self-care (01) ==
LOC: LAB 11:15
PROVIDERS: Family Provider Family Medicine; PCP Family Medicine; Referring Provider Internal Medicine Cardiovascular Disease; Visit Provider Internal Medicine Cardiovascular Disease
DX: I48.92 Unspecified atrial flutter (principal); I48.0 Paroxysmal atrial fibrillation; Z79.01 Long term (current) use of 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s
CPT/HCPCS: 36415; 85610

== ENCOUNTER 2019-08-17 15:35 | Emergency (ER) | payer MEDICARE, OTHER, SELFPAY ==
[2019-07-02 14:27] VITALS: BMI 28.3
[2019-08-17 15:35] VITALS: BP 148/74; PULSE 77; RESP 15; TEMP 36; O2SAT 94; BMI 28.0
--- NOTE | 2019-08-17 16:37 | ED.DCSUM_ITS ---
History of Present Illness Chief Complaint: Abn Labs Informant: Patient Onset: Today Associated Symptoms: None Narrative: Patient presents with an INR of 19.5 that was drawn today. He was told to go to the ER and get vitamin K. He has had no bleeding. He had some black stools several days ago after taking Pepto-Bismol, he stopped taking it, and the black stools resolved. He has seen no blood in his stool. He states he feels fine and is frustrated that he is here. He has no idea why he is on Coumadin. He has never heard of atrial fibrillation. He has had no history of stroke, blood clots, valve replacement of his heart. - Past Medical History (1) Essential (primary) hypertension Status: Chronic (2) HLD (hyperlipidemia) Status: Chronic (3) History of implantable cardiac defibrillator (ICD) Status: Chronic Comment: 03/20/12 Implantation of cardiac defibrillator for V- tach (4) Ischemic cardiomyopathy Status: Chronic (5) Non-rheumatic tricuspid valve insufficiency Status: Chronic (6) Paroxysmal atrial fibrillation Status: Chronic (7) Secondary pulmonary arterial hypertension Status: Chronic Past Medical History - Allergies and Home Meds Allergies/Adverse Reactions: Allergies lisinopril Adverse Reaction (Verified 08/17/19 15:35) cough Amiodarone Adverse Reaction (Uncoded 08/17/19 15:35) Shortness of breath Primary Care Physician: Tien Onofre MD [STAFF PHYSICIAN] - (1-3 days -- call office for their recommendation) Surgical History: angioplasty, coronary bypass surgery, pacemaker implantation, - - AICD. Lives: Spouse/ Significant Other Smoking Status: Never smoker - Family History Paternal Family History: Reports: - - Patient notes that his father passed from complications secondary to from description ruptured AAA. Maternal Family History: Reports: - - Patient notes a maternal family history of possibly complications from brain aneurysm but unclear. Review of Systems General: Denies: Chills, Fever, Sweats Eyes: Denies: Visual changes - bilaterally, Diplopia ENT: Denies: Rhinorrhea, Sore throat Cardiovascular: Denies: Chest pain, Palpitations Respiratory: Denies: Dyspnea, Cough, Dyspnea on exertion Gastrointestinal: Denies: Abdominal pain, Nausea, Vomiting, Diarrhea, Hematochezia Genitourinary: Denies: Dysuria, Hematuria, Frequency Musculoskeletal: Denies: Back pain, Extremity Pain Skin: Denies: Rash, Wounds Neurological: Denies: Headache, Weakness, Numbness Hematologic: Reports: Easy bruising, Easy bleeding Physical Exam Vital Signs/Narrative: Vital Signs Temp Pulse Resp BP Pulse Ox 08/17/19 15:35 96.8 F L 77 15 148/74 H 94 Inital Vital Signs reviewed: Yes General: Well nourished, Well developed, No Acute Distress Head: Normocephalic, Atraumatic Eyes: Perrl, EOMI ENT: Moist mucous membranes, No rhinorrhea, - - Oral mucosa clear, no bleeding Neck: Supple, Nontender Cardiovascular: Regular rate, Regular rhythm, No murmurs. Negative for: Tachycardia Respiratory: No distress, CTA bilaterally, Chest nontender Abdomen: Soft, Nontender, Nondistended, Normal bowel sounds Back: Nontender, Normal Inspection Extremities: Nontender, No edema Skin: Normal color, No rash, No Trauma Neurological: Alert, Oriented x3, Cranial nerves II-XII grossly intact, Normal Strength, Normal Sensation, Normal Gait Psychological: Normal affect. Negative for: Normal Mood - Frustrated Diagnostic/Tx/Re-eval Laboratory Tests 08/17/19 Range/Units 17:35 WBC 9.8 (4.4-11.0) K/mm3 RBC 4.83 (4.6-6.2) M/mm3 Hgb 14.9 (13.0-16.5) g/dL Hct 43.3 (40-54) % MCV 89.6 (80-94) fL MCH 30.8 (27.0-32.0) pg MCHC 34.4 (32-36) g/dL RDW Std Deviation 43.5 (35.1-43.9) fl RDW Coeff of Nguyen 13.3 (11.6-14.6) % Plt Count 169 (150-450) K/mm3 MPV 10.6 (6.2-12.0) fl - Medical Decision Making I see the patient had an INR of 19.5 today in the computer/EMR. With no bleeding, the chest guidelines support providing vitamin K orally 5 mg and holding the vitamin K, retesting and re-dosing with vitamin K every 24 hours as needed. Discussed with cardiology. They agree with this course, and asked that I check his blood counts. They are above, stable. Patient given appropriate discharge instructions after getting vitamin K. ED Disposition - Plan for ED Patient: Disposition: Home or Assisted Living Diagnosis: Supratherapeutic INR Instructions: International Normalized Ratio Referrals: Tien Onofre MD [STAFF PHYSICIAN] - (1-3 days -- call office for their recommendation)
[2019-08-17 17:58] LABS: Hematocrit 43.3 % (40-54); Hemoglobin 14.9 g/dL (13.0-16.5); Mean Corp Hgb Conc 34.4 g/dL (32-36); Mean Corpuscular Hgb 30.8 pg (27.0-32.0); Mean Corpuscular Volume 89.6 fL (80-94); Mean Platelet Vol. 10.6 fl (6.2-12.0); Platelet Count 169 K/mm3 (150-450); RBC Distribution Width CV 13.3 % (11.6-14.6); RBC Distribution Width SD 43.5 fl (35.1-43.9); Red Blood Count 4.83 M/mm3 (4.6-6.2); White Blood Count 9.8 K/mm3 (4.4-11.0)
[2019-08-17] MEDS: Phytonadione (Vit K1) 5 MG TABLET PO (18:36)
[2019-08-17 18:37] VITALS: RESP 17
== END 2019-08-17 18:37 | disposition home or self-care (01) ==
PROVIDERS: Emergency Provider Emergency Medicine; PCP Family Medicine
DX: R79.1 Abnormal coagulation profile (principal); I48.0 Paroxysmal atrial fibrillation; Z79.01 Long term (current) use of 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s; I10 Essential (primary) hypertension; E78.5 Hyperlipidemia, unspecified; Z95.810 Presence of automatic (implantable) cardiac defibrillator; I27.21 Secondary pulmonary arterial hypertension
CPT/HCPCS: 36415; 85027; 85610; 99283

== ENCOUNTER 2019-08-27 09:14 | Outpatient (RCR) | payer MEDICARE, OTHER, SELFPAY ==
[2019-01-16 08:44] VITALS: BMI 28.5
[2019-07-02 14:27] VITALS: BMI 28.3
[2019-08-17 14:39] LABS: Prothrombin Time (Protime)PT. > 120.0 SECONDS (11.7-14.9)
[2019-08-17 14:41] LABS: International Normalized Ratio > 19.5
[2019-08-20 09:29] LABS: International Normalized Ratio 1.2; Prothrombin Time (Protime)PT. 14.6 SECONDS (11.7-14.9)
[2019-08-27 10:09] LABS: International Normalized Ratio 1.3; Prothrombin Time (Protime)PT. 15.5 SECONDS (11.7-14.9)
== END 2019-08-27 18:00 | disposition home or self-care (01) ==
LOC: LAB 09:14
PROVIDERS: Family Provider Family Medicine; PCP Family Medicine; Referring Provider Internal Medicine Cardiovascular Disease; Visit Provider Internal Medicine Cardiovascular Disease
DX: I48.92 Unspecified atrial flutter (principal); I48.0 Paroxysmal atrial fibrillation; Z79.01 Long term (current) use of 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s
CPT/HCPCS: 36415; 85610

== ENCOUNTER 2019-09-24 08:28 | Outpatient (RCR) | payer MEDICARE, OTHER, SELFPAY ==
[2019-09-03 09:14] LABS: International Normalized Ratio 1.4; Prothrombin Time (Protime)PT. 16.4 SECONDS (11.7-14.9)
[2019-09-24 10:04] LABS: Prothrombin Time (Protime)PT. 22.5 SECONDS (11.7-14.9)
== END 2019-09-24 18:00 | disposition home or self-care (01) ==
LOC: LAB 08:28
PROVIDERS: Family Provider Family Medicine; PCP Family Medicine; Referring Provider Internal Medicine Cardiovascular Disease; Visit Provider Internal Medicine Cardiovascular Disease
DX: I48.92 Unspecified atrial flutter (principal); I48.0 Paroxysmal atrial fibrillation; Z79.01 Long term (current) use of 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s
CPT/HCPCS: 36415; 85610

== ENCOUNTER 2019-10-08 08:48 | Outpatient (RCR) | payer MEDICARE, OTHER, SELFPAY ==
[2019-10-08 09:39] LABS: International Normalized Ratio 1.7; Prothrombin Time (Protime)PT. 19.7 SECONDS (11.7-14.9)
== END 2019-10-08 18:00 | disposition home or self-care (01) ==
LOC: LAB 08:48
PROVIDERS: Family Provider Family Medicine; PCP Family Medicine; Referring Provider Internal Medicine Cardiovascular Disease; Visit Provider Internal Medicine Cardiovascular Disease
DX: I48.92 Unspecified atrial flutter (principal); I48.0 Paroxysmal atrial fibrillation; Z79.01 Long term (current) use of 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s
CPT/HCPCS: 36415; 85610

== ENCOUNTER 2019-11-05 10:37 | Outpatient (RCR) | payer MEDICARE, OTHER, SELFPAY ==
[2019-11-05 11:15] LABS: Prothrombin Time (Protime)PT. 31.2 SECONDS (11.7-14.9)
== END 2019-11-30 18:00 | disposition home or self-care (01) ==
LOC: LAB 10:37
PROVIDERS: Family Provider Family Medicine; PCP Family Medicine; Referring Provider Internal Medicine Cardiovascular Disease; Visit Provider Internal Medicine Cardiovascular Disease
DX: I48.92 Unspecified atrial flutter (principal); I48.0 Paroxysmal atrial fibrillation; Z79.01 Long term (current) use of 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s
CPT/HCPCS: 36415; 85610

== ENCOUNTER 2019-12-04 11:18 | Outpatient (RCR) | payer MEDICARE, OTHER, SELFPAY ==
[2019-12-04 12:20] LABS: International Normalized Ratio 1.8; Prothrombin Time (Protime)PT. 20.6 SECONDS (11.7-14.9)
[2019-12-04 12:25] LABS: Hemoglobin A1c 6.6 % (3.8-5.6)
[2019-12-04 12:28] LABS: ALB/GLOB Ratio 0.9 RATIO (0.9-2.4); AST(SGOT) 20 U/L (15-37); Alanine Aminotransfer ALT/SGPT 15 U/L (16-61); Albumin, Serum 3.7 g/dL (3.2-5.0); Alkaline Phosphatase 82 U/L (45-117); Anion Gap 8 (5-15); BUN 28 mg/dL (7-18); BUN/Creat Ratio 22.8 RATIO (10-20); Calcium,Total 9.2 mg/dL (8.5-10.1); Chloride 103 mmol/L (98-107); Cholesterol 139 mg/dL (200); Creatinine, Serum 1.23 mg/dL (0.70-1.30); EST Glomerular Filtration Rate 61 mL/min (>60); Est Glom Filt Rate - Afr Amer 74 mL/min (>60); Globulin 4.1 g/dL (2.2-4.2); Glucose 120 mg/dL (74-106); High Density Lipoprotein 42 mg/dL; Magnesium 1.6 mg/dL (1.6-2.6); Potassium 3.9 mmol/L (3.5-5.1); Protein, Total 7.8 g/dL (6.4-8.2); Sodium Level 138 mmol/L (136-145); Triglycerides 104 mg/dL; Very Low Density Lipoprotein 21 mg/dL (5-40)
== END 2019-12-04 18:00 | disposition home or self-care (01) ==
LOC: LAB 11:18
PROVIDERS: Family Provider Family Medicine; PCP Family Medicine; Referring Provider Internal Medicine Cardiovascular Disease; Visit Provider Internal Medicine Cardiovascular Disease
DX: I48.92 Unspecified atrial flutter (principal); I48.0 Paroxysmal atrial fibrillation; Z79.01 Long term (current) use of 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s; E11.8 Type 2 diabetes mellitus with unspecified complications; Z79.4 Long term (current) use of insulin; E78.2 Mixed hyperlipidemia; I10 Essential (primary) hypertension; R19.7 Diarrhea, unspecified
CPT/HCPCS: 36415; 80053; 80061; 83036; 83735; 85610

== ENCOUNTER 2020-01-11 10:47 | Outpatient (RCR) | payer MEDICARE, OTHER, SELFPAY ==
[2020-01-11 12:38] LABS: Prothrombin Time (Protime)PT. 21.9 SECONDS (11.7-14.9)
== END 2020-01-11 18:00 | disposition home or self-care (01) ==
LOC: LAB 10:47
PROVIDERS: Family Provider Family Medicine; PCP Family Medicine; Referring Provider Internal Medicine Cardiovascular Disease; Visit Provider Internal Medicine Cardiovascular Disease
DX: I25.810 Atherosclerosis of coronary artery bypass graft(s) without angina pectoris (principal); Z95.1 Presence of aortocoronary bypass graft; I25.5 Ischemic cardiomyopathy; I48.0 Paroxysmal atrial fibrillation; I48.92 Unspecified atrial flutter; Z79.01 Long term (current) use of 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s
CPT/HCPCS: 36415; 85610

== ENCOUNTER → 2020-02-09 11:38 | Outpatient (CLI) | payer MEDICARE, OTHER, SELFPAY ==
[2020-02-09 07:10] VITALS: BMI 28.8
--- NOTE | 2020-02-09 10:29 | CPS ---
Pt was asked to verify his date when he was called back for procedure. Pt became very agitated and yelled at this therapist oh my god why do you people keep asking I informed the pt that it was to verify I had the correct pt. Pt then states what do you think I am someone who just walked off the street? Pt was brought back to room for procedure. Pt was explained what would take place for the swabs. Pt made comment this is why all the football players are testing positive. When the first swab was placed in nostril pt yelled at this therapist and stated not to put it back so far. Pt was asked if he wanted this test done. pt stated yes. The final 3 swabs were obtained and pt was informed he could leave. Linda and January JHA overheard pt yelling and Diagnostic ladies observed the pt yelling at [facility] therapist when asked for date.
== END ==
PROVIDERS: PCP Family Medicine; Referring Provider Internal Medicine Cardiovascular Disease; Visit Provider Internal Medicine Cardiovascular Disease
DX: Z03.818 Encounter for observation for suspected exposure to other biological agents ruled out (principal); I25.810 Atherosclerosis of coronary artery bypass graft(s) without angina pectoris; I25.5 Ischemic cardiomyopathy; I50.23 Acute on chronic systolic (congestive) heart failure; Z45.02 Encounter for adjustment and management of automatic implantable cardiac defibrillator; Z95.1 Presence of aortocoronary bypass graft; Z95.5 Presence of coronary angioplasty implant and graft
CPT/HCPCS: 87426; C9803

== ENCOUNTER 2020-02-11 08:19 | Day surgery (SDC) | payer MEDICARE, OTHER, SELFPAY ==
[2020-02-09 07:10] VITALS: BMI 28.8
[2020-02-09 09:55] LABS: Bacteria 0 SEEN /hpf (None Seen); Mucous, Urine 0 SEEN /hpf (<or=2+); Red Blood Cells-Urine 0 SEEN /hpf (0-5); Squamous Epithelial Cells - UA 0 SEEN /hpf (0-5); White Blood Cells 0 SEEN /hpf (0-5)
[2020-02-09 10:17] LABS: Hematocrit 40.6 % (40-54); Hemoglobin 13.8 g/dL (13.0-16.5); Mean Corpuscular Hgb 31.4 pg (27.0-32.0); Mean Corpuscular Volume 92.3 fL (80-94); Mean Platelet Vol. 10.4 fl (6.2-12.0); Platelet Count 172 K/mm3 (150-450); RBC Distribution Width CV 13.2 % (11.6-14.6); RBC Distribution Width SD 43.9 fl (35.1-43.9); White Blood Count 10.4 K/mm3 (4.4-11.0)
[2020-02-09 10:33] LABS: International Normalized Ratio 2.1; Prothrombin Time (Protime)PT. 22.9 SECONDS (11.7-14.9)
[2020-02-09 10:36] LABS: Color, Urine Yellow (Yellow); Glucose, Dipstick Normal (Normal); Ketone-Dipstick Negative (Negative); Leukocyte Esterase-Dipstick Negative /ul (Negative); Nitrite-Dipstick Negative (Negative); Occult Blood-Urine Negative /ul (Negative); Protein-Dipstick Negative (Negative); Urine Bilirubin Dipstick Negative (Negative); Urine Clarity Clear (Clear); Urine Urobilinogen Normal (Normal); Urine pH 6.5 (5.0 - 8.0)
[2020-02-09 10:43] LABS: Anion Gap 10 (5-15); BUN 28 mg/dL (7-18); BUN/Creat Ratio 22.2 RATIO (10-20); Calcium,Total 8.8 mg/dL (8.5-10.1); Chloride 100 mmol/L (98-107); Creatinine, Serum 1.26 mg/dL (0.70-1.30); EST Glomerular Filtration Rate 59 mL/min (>60); Est Glom Filt Rate - Afr Amer 72 mL/min (>60); Glucose 86 mg/dL (74-106); Potassium 3.2 mmol/L (3.5-5.1); Sodium Level 136 mmol/L (136-145)
[2020-02-10 08:30] VITALS: BMI 28.8
--- NOTE | 2020-02-11 06:00 | HP_ITS ---
[facility] HPI History of Present Illness Details: Is a gentleman with a history of coronary artery disease status post coronary bypass surgery in 1997 with a left internal mammary artery to the left anterior descending artery, saphenous vein graft to the circumflex artery, saphenous vein graft to right coronary artery. He underwent PCI with a drug- eluting stent to the saphenous vein graft to diagonal branches 1 and 2. And he does have evidence of cardiomyopathy with an estimated ejection fraction of 35% with an aortic valve area of 1.6 cm?. He denies any neck arm or jaw discomfort suggest angina no dizziness or diaphoresis no near syncope or syncope. His physical exam here today is unremarkable. Intake Vital Signs 02/09/20 Height 5 ft 7 in 02/09/20 Weight: 184 lb 02/09/20 BMI 28.8 02/09/20 BP 150/91 H 02/09/20 Respiration 16 02/09/20 Pulse 74 02/09/20 Pulse Oximetry (%) 94 Intake Visit Reasons: H&P for gen chg, Carola 9a Allergies lisinopril Adverse Reaction (Verified 02/09/20 07:10) cough Amiodarone Adverse Reaction (Uncoded 02/09/20 07:10) Shortness of breath Medications Insulin Detemir [Levemir FlexPen] 4 units SC QHS 02/16/16 [History Confirmed 02/09/20] omeprazole 20 mg capsule,delayed release 20 mg PO DAILY PRN 05/28/17 [History Confirmed 02/09/20] Aspirin [Aspir-Low] 81 mg PO DAILY 09/19/18 [History Confirmed 02/09/20] Insulin Glargine,Hum.rec.anlog [Basaglar Kwikpen U-100] 22 unit SQ DAILY 09/19/18 [History Confirmed 02/09/20] losartan 25 mg tablet 25 mg PO DAILY #90 tab 10/31/18 [Rx Confirmed 02/09/20] furosemide 40 mg tablet 40 mg PO BID #180 tab 11/14/18 [Rx Confirmed 02/09/20] atorvastatin 80 mg tablet 80 mg PO QHS #90 tab 04/27/19 [Rx Confirmed 02/09/20] potassium chloride 20 mEq tablet,extended release 60 meq PO DAILY #90 tab 07/02/19 [Rx Confirmed 02/09/20] Warfarin [Coumadin ([facility])] 2 mg PO MO 08/17/19 [History Confirmed 02/09/20] Handicap Placard #1 ea 08/28/19 [Rx Confirmed 02/09/20] clopidogrel 75 mg tablet 75 mg PO DAILY #90 tab 09/07/19 [Rx Confirmed 02/09/20] metolazone 2.5 mg tablet 2.5 mg PO DAILY PRN #30 tab 10/27/19 [Rx Confirmed 02/09/20] metoprolol succinate 100 mg tablet,extended release 24 hr 100 mg PO BID #180 tab 11/11/19 [Rx Confirmed 02/09/20] warfarin 4 mg tablet 4 mg PO .COMPLEX #90 tab 12/22/19 [Rx Confirmed 02/09/20] cholecalciferol (vitamin D3) 25 mcg (1,000 unit) capsule 25 mcg PO DAILY 02/09/20 [History Confirmed 02/09/20] Ejection fraction %: 35 to 39 [facility] Medical History Implantable cardioverter-defibrillator (ICD) at end of battery life (Acute) 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) Atherosclerosis of coronary artery bypass graft without angina pectoris (Chronic) Ischemic cardiomyopathy (Chronic) Acute on chronic systolic (congestive) heart failure (Chronic) Paroxysmal atrial flutter (Chronic) Paroxysmal atrial fibrillation (Chronic) Non-rheumatic tricuspid valve insufficiency (Chronic) Secondary pulmonary arterial hypertension (Chronic) Essential (primary) hypertension (Chronic) Ventricular tachycardia (Chronic) HLD (hyperlipidemia) (Chronic) emt intermediate current use of 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 (Chronic) Alcohol abuse (Chronic) GERD (gastroesophageal reflux disease) (Chronic) Heavy alcohol use (Chronic) RITESH (obstructive sleep apnea) (Chronic) Peripheral vascular disease (Chronic) Type 2 diabetes mellitus (Chronic) Elevated troponin (Resolved) senior living current use of amiodarone (Resolved) NSTEMI (non-ST elevated myocardial infarction) (Resolved) Paroxysmal atrial fibrillation with rapid ventricular response (Resolved) Alcohol abuse (Inactive) Atrial fibrillation (Inactive) CAD (coronary artery disease) (Inactive) Cardiac dysrhythmia (Inactive) Cardiomyopathy (Inactive) Chronic systolic congestive heart failure (Inactive) Congestive heart failure (Inactive) GERD (gastroesophageal reflux disease) (Inactive) Pleural effusion (Inactive) Sleep apnea (Inactive) Surgical History History of implantable cardiac defibrillator (ICD) (Chronic 03/20/12) H/O coronary artery bypass surgery (Resolved 1997) History of coronary artery stent placement (Resolved 01/2016) History of thoracentesis (Resolved) Hx of CABG (Inactive) S/P PTCA (percutaneous transluminal coronary angioplasty) (Inactive) Social History (Updated 02/09/20 @ 09:[address] Tien Onofre MD) alcohol intake: current alcohol intake frequency: a few times a week Alcohol type: beer substance use type: does not use caffeine: Yes Type: coffee Number of servings: 2 what type of physical activity do you participate in: none seatbelt use: never do you feel safe at home: Yes ROS Const Const: Negative for fatigue, weakness, headache(s), frequent falls, difficulty sleeping or excessive sweating Eyes Eyes: Negative for loss of peripheral vision, transient loss of vision, blurry vision, double vision or tunnel vision ENT ENT: Negative for headache(s), dizziness, Nosebleed/epistaxis or balance problems Cardio Chest Pain: No Palpitations: No Edema: Left (non pitting LLE) Muscle aches with walking: None Resp Respiratory: Negative for SOB with activity, SOB at rest, SOB orthopnea\SOB lying down, Cough or paroxysmal nocturnal dyspnea GI GI: Negative nausea, vomiting, heartburn or black,tarry stools : Negative for hematuria Musc Musc: Negative for muscle aches/ myalgia, muscle weakness, joint pain or balance problems Skin Skin: Negative non-healing lesions, rash or unusual bruising Neuro Neuro: Negative for dizziness, lightheadedness, near syncope, syncope, orthostatic symptoms, frequent falls, headache(s), weakness, blurry vision, double vision or lack of coordination Jonathan Hematologic/Lymphatic: Negative for easy bleeding or easy bruising Endo Endo: Negative for fatigue, excessive sweating or increased thirst/drinking Psych Psych: Negative for anxiety or depression Allergy Allergy/Immunology: Negative for hives, Negative for rash Cardiology Exam Const Appearance: cooperative, healthy appearing, no acute distress, well developed and well groomed Nutritional Appearance: average body habitus and well nourished Orientation: alert, awake and oriented x3 Head Head: normal to inspection, normocephalic and atraumatic Ears: hearing grossly normal bilaterally and external ears normal Nose: external nose normal, nares normal, nasal mucous membranes and turbinates normal, septum normal, no nasal discharge Face and Sinus: face symmetric Mouth: oral mucosae normal, tongue normal, oropharynx normal and moist mucous membranes Teeth and gingiva: dentition normal Throat: posterior oropharynx normal, tonsils normal and uvula midline Eyes General: appearance normal, both eyes and all related structures Eyelids: eyelids normal Conjunctivae: conjunctivae normal Pupils: PERRL, normal by confrontation and accommodation normal EOM: EOM intact bilaterally Neck Neck: normal visual inspection, trachea midline and no JVD JVD: +5 Carotids: normal carotid upstroke and bounding pulses Chest Chest inspection: normal inspection of the chest, symmetric chest movement and normal respiratory effort Auscultation: Bilateral: Clear to Auscultation Cardio Palpation: normal PMI Rate: regular rate Rhythm: regular rhythm Heart sounds: S1 normal, S2 normal and normal, physiologic split S2; negative rub, gallop or murmur GI GI: normal to inspection, soft, no hepatosplenomegaly and bowel sounds present Neuro General: alert, awake, oriented x3, gait normal, moves all extremities and no focal sensory deficit Skin Skin: no rashes or lesions noted Extremities Pulses: Normal: Right Femoral Pulse, Left Femoral Pulse, Right Dorsalis Pedis Pulse, Left Dorsalis Pedis Pulse, Right Posterior Tibial Pulse, Left Posterior Tibial Pulse, Right Radial Pulse, Left Radial Pulse Lower Extremity Edema: None: Bilateral Musculoskel Musculoskeletal: No joint tenderness Psych Psychological: normal affect Assessment & Plan 1. H/O coronary artery bypass surgery Z95.1 CABG x3 EASLEY to LAD, SVG to the LCX, SVG to the RCA 1997 Plan Patient is status post coronary artery bypass surgery. He appears to doing well his last stress test was in August 2018 which was negative for ischemia we will continue to monitor him without making any changes at this particular time. There was evidence of basal and mid inferior posterior lateral wall infarct present. Orders Orders: 12 Lead EKG performed by [facility] Today 2. Ischemic cardiomyopathy I25.5 Plan He does have evidence of ischemic cardiomyopathy with an estimated ejection fraction of 35% with wall motion abnormalities noted. We will continue him with medical therapy. Orders Orders: 12 Lead EKG performed by [facility] Today 3. Paroxysmal atrial fibrillation I48.0 Plan He does have a history of atrial fibrillation. His ventricular response rate is controlled on his EKG today his rate is 75 bpm. 4. Essential (primary) hypertension I10 Plan He does have a history of hypertension his blood pressure is elevated today he has not taken his medication yet. I have implored him to continue taking the above. 5. Ventricular tachycardia I47.2 Plan He does have a history of ventricular tachycardia and has an ICD and needs a new ICD generator change. 6. Implantable cardioverter-defibrillator (ICD) at end of battery life Z45.02 Plan His ICD battery is at end-of-life. I would recommend a generator change out. A Covid test will be performed. Orders Orders: 12 Lead EKG performed by [facility] Today Plan Detail Other Orders Orders: 12 Lead EKG performed by [facility] Today I25.2, I25.810, I48.92, I50.23, Z95.5 Follow Up 6 Months (mmm) Coding Level of Care Code Off vis,est,level 4 Diagnoses H/O coronary artery bypass surgery Z95.1 Ischemic cardiomyopathy I25.5 Paroxysmal atrial fibrillation I48.0 Essential (primary) hypertension I10 Ventricular tachycardia I47.2 Implantable cardioverter-defibrillator (ICD) at end of battery life Z45.02 Coding Level of Care Code Off vis,est,level 4 Diagnoses H/O coronary artery bypass surgery Z95.1 Ischemic cardiomyopathy I25.5 Paroxysmal atrial fibrillation I48.0 Essential (primary) hypertension I10 Ventricular tachycardia I47.2 Implantable cardioverter-defibrillator (ICD) at end of battery life Z45.02 Supplemental Info Supplemental Information Labs LDL Cholesterol 76 mg/dL (0-130) 12/04/19 HDL Cholesterol 42 mg/dL (40-) 12/04/19 Triglycerides 104 mg/dL (-199) 12/04/19 VLDL Cholesterol 21 mg/dL (5-40) 12/04/19 Diagnostics Pacemaker Check 08/17/19
[2020-02-11 08:38] LABS: Potassium 3.4 mmol/L (3.5-5.1)
[2020-02-11 08:45] LABS: International Normalized Ratio 2.1; Prothrombin Time (Protime)PT. 22.9 SECONDS (11.7-14.9)
--- NOTE | 2020-02-11 10:56 | PCM.OPRPT ---
Report of Operation Date of Procedure: 02/11/20 Description of Procedure: Diagnosis: ischemic Cardiomyopathy with NYHA Class iii. ICD for secondary prevention. Device generator replacement for normal battery depletion Preoperative diagnosis is device at end of life for normal battery depletion. Postoperative diagnosis same as above. After informed consent and IV antibiotics the patient was brought to the [place] catheterization laboratory and the skin over the device was prepped and draped in the usual sterile manner. Intermittent boluses of Versed, and fentanyl were used for sedation and analgesia as well as 1% subcutaneous lidocaine. An incision was made over the pre-existing device. Using blunt and Bovie dissection the pocket was opened and the device was removed. Careful attention was paid not to injure the pre-existing leads. The leads were removed from the device header and they were interrogated. There is normal lead function. Hemostasis was obtained. The pocket was flushed with antibiotic solution. The sponge and needle count were correct. The new device was brought to the field. The leads were placed in the appropriate position in the header and secured by the set screw. The leads and the device were then placed in the pocket. The pocket was closed with a deep layer of running 2-0 Vicryl, a superficial layer of running 4-0 Vicryl, skin with Steri-Strips which were covered with a rolled 4 x 4 and Tegaderm. Patient left the room with the device programmed to proper parameters and there were no complications. The device is a single chamber [employer] sci generator. All lead parameters were tested and found to be functionally normal. Lead and device serial and model numbers are available in the chart documents provided by the device company patient services representative procedure summary.
== END 2020-02-11 13:05 | disposition home or self-care (01) ==
PROVIDERS: PCP Family Medicine; Referring Provider Internal Medicine Cardiovascular Disease; Visit Provider Internal Medicine Cardiovascular Disease
DX: I48.92 Unspecified atrial flutter (principal); Z45.02 Encounter for adjustment and management of automatic implantable cardiac defibrillator; I25.5 Ischemic cardiomyopathy; I47.2 Ventricular tachycardia; I48.0 Paroxysmal atrial fibrillation; Z95.810 Presence of automatic (implantable) cardiac defibrillator; Z95.1 Presence of aortocoronary bypass graft; I25.10 Atherosclerotic heart disease of native coronary artery without angina pectoris; Z79.4 Long term (current) use of insulin; Z79.01 Long term (current) use of 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s; Z79.899 Other long term (current) drug therapy; E78.5 Hyperlipidemia, unspecified; K21.9 Gastro-esophageal reflux disease without esophagitis; E11.51 Type 2 diabetes mellitus with diabetic peripheral angiopathy without gangrene; I10 Essential (primary) hypertension; L72.2 Steatocystoma multiplex; Z95.0 Presence of cardiac pacemaker
CPT/HCPCS: 33262; 36415; 80048; 81001; 84132; 85025; 85027; 85610; 93641; 96374; 99152; 99153; 99282; J7040; J7050

== ENCOUNTER 2020-02-11 19:29 | Emergency (ER) | payer MEDICARE, OTHER, SELFPAY ==
[2020-02-10 08:30] VITALS: BMI 28.8
[2020-02-11 19:30] VITALS: BP 137/124; PULSE 87; RESP 16; TEMP 36.4; O2SAT 93; BMI 28.1
--- NOTE | 2020-02-11 20:05 | ED.DCSUM_ITS ---
- ER Visit Summary Date of Service: 02/11/20 Chief Complaint: Bleeding from incision History of Present Illness: The patient is a 74 M who presents with bleeding from his incision. Patient had his pacemaker battery change today. Patient was discharged home and noted only slight pink drainage on his dressing. Patient states tonight it became worse and it became saturated with blood. Patient states all he was doing was walking at home. Patient denies any direct trauma or injury. Patient states he has not taken his aspirin, Plavix, or Coumadin for the past 2 days. Patient denies any shortness of breath. Patient denies any nausea or vomiting. Physical Examination: Vital signs are stable. Patient is afebrile. Patient is in no acute distress. Oral mucosa is pink and moist. Neck is supple. Trachea is midline. There is no JVD. Skin is warm and dry. There is mild oozing from the incision. There is no pulsatile bleeding. There is no erythema, discharge, or drainage around the incision. There is no tenderness. Cranial nerves II through XII are intact. There are no focal motor or sensory deficits. Test Results: CBC was obtained and was within normal limits. PT with INR was obtained and was still therapeutic at 2.1. Emergency Department Course and Treatment: The wound was cleaned and the Steri- Strips were removed. There is still some oozing along the medial aspect of the incision. Gauze and Gelfoam dressing was applied initially. Patient was still having bleeding after this. Transexamic acid was applied to a gauze and placed on the wound. Patient was still having some bleeding after this. Transexamic cast was then applied directly to the wound. Patient still had some mild bleeding after this. Dermabond skin adhesive was then used. Bleeding appeared to stop with this. Case was discussed with Dr. Blanchard. He was advised that the incision was clean and there is no hematoma. He was advised of the patient's lab results. Patient was instructed to keep the area clean. Patient was instructed to avoid bacitracin, Neosporin, or Vaseline-based ointments. Just prior to discharge, the patient started having some further bleeding. Gelfoam and an ABD dressing was applied with some pressure. There is no bleeding through the dressing at this point. 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 Patient was instructed return if any further bleeding through the dressing. Patient understood and was agreeable with the plan. All questions were answered. Disposition: Discharge home Impression: 1. Postoperative bleeding This note was generated with [employer] dictation software. It may contain incorrect words, spelling, and punctuation that were not noted in review of the chart prior to signing ED Disposition - Plan for ED Patient: Disposition: Home or Assisted Living Diagnosis: Postoperative bleeding from incision Instructions: ED Wound Check Post Op Bleeding Referrals: Pedro Luis Shin MD [Primary Care Provider] - Keep Laura appointment Tien Onofre MD [STAFF PHYSICIAN] - Keep Laura appointment
[2020-02-11 20:40] LABS: Absolute Lymphocyte Count 0.74 X10^3/uL (0.83-4.51); Absolute Neutrophil Count 7.4 X10^3/uL (2.0-7.7); Basophil# 0.03 X10^3/uL; Basophil% 0.3 % (0-1); Eosinophils% 3.2 % (0-5); Hematocrit 39.5 % (40-54); Hemoglobin 13.5 g/dL (13.0-16.5); Lymphocyte # 0.74 X10^3/ul (4.0); Mean Corp Hgb Conc 34.2 g/dL (32-36); Mean Corpuscular Hgb 31.4 pg (27.0-32.0); Mean Corpuscular Volume 91.9 fL (80-94); Mean Platelet Vol. 10.2 fl (6.2-12.0); Monocyte# 0.71 X10^3/uL; Monocyte% 7.7 % (0-10); NRBC Flagged by Analyzer 0 % (0-5); Neutrophil # 7.41 X10^3/uL (2.7-7.7); Neutrophil % 80.3 % (47-70); Platelet Count 181 K/mm3 (150-450); RBC Distribution Width CV 13.2 % (11.6-14.6); RBC Distribution Width SD 43.3 fl (35.1-43.9); White Blood Count 9.2 K/mm3 (4.4-11.0)
[2020-02-11 20:58] LABS: International Normalized Ratio 2.1
[2020-02-11] MEDS: TRANEXAMIC ACID 1,000 MG/10 ML ML 1000 MG IV (22:41)
--- NOTE | 2020-02-11 23:32 | ED.RN ---
PT AND GIVEN INSTRUCTIONS AND SUPPLIES IF NEEDED TO REINFORCE BANDAGE IF BLEEDING STARTS AGAIN. SURGIFOAM AND PRESSURE DRESSING APPLIED, NO SEEPAGE OR SIGNS OF BLEEDING AT TIME OF DISCHARGE. PT DOES NOT WANT TO WAIT AND BE OBSERVED ANY LONGER. ASSISTED PT TO CAR AND SPOKE TO WELL. SHE VOICES UNDERSTANDING TO BRING HIM BACK OR CALL 911 FOR ANY UNCONTROLLED BLEEDING.
== END 2020-02-11 23:34 | disposition home or self-care (01) ==
PROVIDERS: Emergency Provider Emergency Medicine; PCP Family Medicine
DX: L76.22 Postprocedural hemorrhage of skin and subcutaneous tissue following other procedure (principal); Z95.0 Presence of cardiac pacemaker
CPT/HCPCS: 85025; 85610; 96374

== ENCOUNTER 2020-06-23 08:28 | Outpatient (RCR) | payer MEDICARE, OTHER, SELFPAY ==
[2020-06-23 09:57] LABS: Prothrombin Time (Protime)PT. 22.3 SECONDS (11.7-14.9)
== END 2020-06-23 18:00 | disposition home or self-care (01) ==
LOC: LAB 08:28
PROVIDERS: Family Provider Family Medicine; PCP Family Medicine; Referring Provider Internal Medicine Cardiovascular Disease; Visit Provider Internal Medicine Cardiovascular Disease
DX: I25.810 Atherosclerosis of coronary artery bypass graft(s) without angina pectoris (principal); Z95.1 Presence of aortocoronary bypass graft; I25.5 Ischemic cardiomyopathy; I48.0 Paroxysmal atrial fibrillation; I48.92 Unspecified atrial flutter; Z79.01 Long term (current) use of 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s
CPT/HCPCS: 85610

== ENCOUNTER 2020-08-08 09:58 | Outpatient (RCR) | payer MEDICARE, OTHER, SELFPAY ==
[2020-08-08 09:28] VITALS: BMI 28.1
[2020-08-08 10:47] LABS: Prothrombin Time (Protime)PT. 21.9 SECONDS (11.7-14.9)
[2020-08-08 11:01] LABS: AST(SGOT) 19 U/L (15-37); Alanine Aminotransfer ALT/SGPT 16 U/L (16-61); Albumin, Serum 3.8 g/dL (3.2-5.0); Alkaline Phosphatase 87 U/L (45-117); Bilirubin, Direct 0.32 mg/dL (0.00-0.30); Cholesterol 157 mg/dL (200); Globulin 4.4 g/dL (2.2-4.2); High Density Lipoprotein 50 mg/dL; Protein, Total 8.2 g/dL (6.4-8.2); Triglycerides 139 mg/dL; Very Low Density Lipoprotein 28 mg/dL (5-40)
== END 2020-08-08 18:00 | disposition home or self-care (01) ==
LOC: LAB 09:58
PROVIDERS: Physician Assistant Medical; Family Provider Family Medicine; PCP Family Medicine; Referring Provider Internal Medicine Cardiovascular Disease; Visit Provider Internal Medicine Cardiovascular Disease
DX: I25.810 Atherosclerosis of coronary artery bypass graft(s) without angina pectoris (principal); I25.5 Ischemic cardiomyopathy; I48.0 Paroxysmal atrial fibrillation; I48.92 Unspecified atrial flutter; Z95.1 Presence of aortocoronary bypass graft; Z95.5 Presence of coronary angioplasty implant and graft; Z79.01 Long term (current) use of 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s
CPT/HCPCS: 36415; 80061; 80076; 85610

== ENCOUNTER 2020-10-19 12:36 | Outpatient (RCR) | payer MEDICARE, OTHER, SELFPAY ==
[2020-10-19 13:48] LABS: International Normalized Ratio 2.2; Prothrombin Time (Protime)PT. 23.8 SECONDS (11.7-14.9)
== END 2020-10-19 18:00 | disposition home or self-care (01) ==
LOC: LAB 12:36
PROVIDERS: Family Provider Family Medicine; PCP Family Medicine; Referring Provider Internal Medicine Cardiovascular Disease; Visit Provider Internal Medicine Cardiovascular Disease
DX: I25.810 Atherosclerosis of coronary artery bypass graft(s) without angina pectoris (principal); I25.5 Ischemic cardiomyopathy; I48.0 Paroxysmal atrial fibrillation; I48.92 Unspecified atrial flutter; Z95.1 Presence of aortocoronary bypass graft; Z95.5 Presence of coronary angioplasty implant and graft; Z79.01 Long term (current) use of 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s
CPT/HCPCS: 36415; 85610

== ENCOUNTER 2021-01-13 09:12 | Outpatient (RCR) | payer MEDICARE, OTHER, SELFPAY ==
[2021-01-13 10:26] LABS: International Normalized Ratio 2.1; Prothrombin Time (Protime)PT. 22.8 SECONDS (11.7-14.9)
[2021-01-13 10:46] LABS: AST(SGOT) 16 U/L (15-37); Alanine Aminotransfer ALT/SGPT 13 U/L (16-61); Albumin, Serum 3.3 g/dL (3.2-5.0); Alkaline Phosphatase 78 U/L (45-117); Bilirubin, Direct 0.28 mg/dL (0.00-0.30); Cholesterol 138 mg/dL (200); Globulin 4.2 g/dL (2.2-4.2); High Density Lipoprotein 52 mg/dL; Protein, Total 7.5 g/dL (6.4-8.2); Triglycerides 91 mg/dL; Very Low Density Lipoprotein 18 mg/dL (5-40)
== END 2021-01-29 03:26 | disposition home or self-care (01) ==
LOC: LAB 09:12
PROVIDERS: Physician Assistant Medical; Family Provider Family Medicine; PCP Family Medicine; Referring Provider Internal Medicine Cardiovascular Disease; Visit Provider Internal Medicine Cardiovascular Disease
DX: I48.0 Paroxysmal atrial fibrillation (principal); I48.92 Unspecified atrial flutter; I25.810 Atherosclerosis of coronary artery bypass graft(s) without angina pectoris; I25.5 Ischemic cardiomyopathy; Z95.1 Presence of aortocoronary bypass graft; Z95.5 Presence of coronary angioplasty implant and graft; Z79.01 Long term (current) use of 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s; E78.00 Pure hypercholesterolemia, unspecified; E78.5 Hyperlipidemia, unspecified
CPT/HCPCS: 36415; 80061; 80076; 85610

== ENCOUNTER 2021-05-23 09:40 | Outpatient (CLI) | payer MEDICARE, OTHER, SELFPAY ==
[2021-05-23 11:19] LABS: Absolute Lymphocyte Count 0.91 X10^3/uL (0.83-4.51); Absolute Neutrophil Count 8.2 X10^3/uL (2.0-7.7); Basophil# 0.04 X10^3/uL; Basophil% 0.4 % (0-1); Eosinophil# 0.19 X10^3/uL; Eosinophils% 1.8 % (0-5); Hemoglobin 14.5 g/dL (13.0-16.5); Lymphocyte # 0.91 X10^3/ul (0.83-4.51); Lymphocyte % 8.8 % (19-41); Mean Corp Hgb Conc 34.5 g/dL (32-36); Mean Corpuscular Hgb 31.6 pg (27.0-32.0); Mean Corpuscular Volume 91.5 fL (80-94); Mean Platelet Vol. 10.6 fl (6.2-12.0); Monocyte# 0.88 X10^3/uL; Monocyte% 8.6 % (0-10); NRBC Flagged by Analyzer 0 % (0-5); Neutrophil % 79.7 % (47-70); Platelet Count 199 K/mm3 (150-450); RBC Distribution Width CV 13.2 % (11.6-14.6); RBC Distribution Width SD 44.5 fl (35.1-43.9); Red Blood Count 4.59 M/mm3 (4.6-6.2); White Blood Count 10.3 K/mm3 (4.4-11.0)
[2021-05-23 11:51] LABS: Anion Gap 9 (5-15); BUN 36 mg/dL (7-18); BUN/Creat Ratio 26.5 RATIO (10-20); Calcium,Total 8.9 mg/dL (8.5-10.1); Chloride 95 mmol/L (98-107); Creatinine, Serum 1.36 mg/dL (0.70-1.30); EST Glomerular Filtration Rate 54 mL/min (>60); Est Glom Filt Rate - Afr Amer 66 mL/min (>60); Glucose 180 mg/dL (74-106); Potassium 3.1 mmol/L (3.5-5.1); Sodium Level 133 mmol/L (136-145)
[2021-05-23 12:11] LABS: International Normalized Ratio 1.4; Prothrombin Time (Protime)PT. 16.6 SECONDS (11.7-14.9)
== END 2021-05-23 23:59 | disposition home or self-care (01) ==
LOC: LAB 09:42
PROVIDERS: PCP Family Medicine; Visit Provider Physician Assistant Medical
DX: E78.00 Pure hypercholesterolemia, unspecified (principal); I25.810 Atherosclerosis of coronary artery bypass graft(s) without angina pectoris; Z79.01 Long term (current) use of 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s
CPT/HCPCS: 36415; 80048; 85025; 85610

== ENCOUNTER 2021-06-07 07:30 | Outpatient (CLI) | payer MEDICARE, OTHER, SELFPAY ==
--- NOTE | 2021-06-07 07:40 | ECHOCS_ITS ---
Reason For Study: MURMUR Procedure This was a 2D Doppler, Color Flow transthoracic echocardiogram. The study was technically difficult. Due to patient continuous coughing and inability to lie in left lateral decubitus position. Contrast injection was performed. Left Ventricle Normal LV size. Left ventricular systolic function is normal. No regional wall motion abnormalities noted. Right Ventricle Normal RV size. ICD or pacer leads identified within the right ventricle. Normal systolic function. Atria Normal left atrium. Normal right atrium. Mitral Valve Mitral valve not well visualized. Tricuspid Valve The tricuspid valve is not well visualized. Aortic Valve The aortic valve is not well visualized. Pulmonic Valve The pulmonic valve is not well visualized. Great Vessels Normal aortic root. Pericardium/Pleural No pericardial effusion. Medication 22 gauge I.V. with prn adaptor inserted into right arm. Diluted definity 4.0ml given slow IV push to enhance endocardial definition. MMode/2D Measurements & Calculations LVIDd: 4.6 cm IVSd: 1.2 cm LVOT diam: 2.2 cm LVIDs: 3.7 cm LVPWd: 1.1 cm RVDd: 3.6 cm FS: 19.2 % LVOT area: 3.8 cm2 Ao root diam: 3.0 cm LAV(MOD-bp): 83.1 ml LA A4 area: 24.4 cm2 LAV(MOD-bp) Indexed: 43.2 ml/m2 LAV(MOD-sp2): 81.0 ml LAV(MOD-sp4): 81.5 ml LA dimension(2D): 4.5 cm RA A4 area: 21.4 cm2 Time Measurements MV dec time: 0.12 sec Doppler Measurements & Calculations MV E max keron: 106.4 cm/sec Ao V2 max: 224.0 cm/sec LV V1 max: 71.4 cm/sec MV A max keron: 37.3 cm/sec Ao max P.1 mmHg LV V1 max P.0 mmHg MV E/A: 2.9 Ao V2 mean: 158.0 cm/sec LV V1 mean P.0 mmHg Ao mean P.0 mmHg LV V1 mean: 47.5 cm/sec Ao V2 VTI: 44.5 cm LV V1 VTI: 13.6 cm GILSON(I,D): 1.2 cm2 GILSON(V,D): 1.2 cm2 SV(LVOT): 51.7 ml PA V2 max: 64.3 cm/sec TR max keron: 316.4 cm/sec TR max P.0 mmHg ECHO/Echo Complete W/ Contrast Interpretation Summary Normal LV size. Left ventricular systolic function is normal. No regional wall motion abnormalities noted. Contrast injection was performed. Ordering Physician: Lela Varela Referring Physician: Pedro Luis Shin Performed By: Bailey Diallo RDCS, RVT
[2021-06-07 09:20] LABS: Prothrombin Time (Protime)PT. 22.1 SECONDS (11.7-14.9)
[2021-06-07 09:38] LABS: AST(SGOT) 37 U/L (15-37); Alanine Aminotransfer ALT/SGPT 17 U/L (16-61); Albumin, Serum 3.3 g/dL (3.2-5.0); Alkaline Phosphatase 64 U/L (45-117); Anion Gap 7 (5-15); BUN 43 mg/dL (7-18); BUN/Creat Ratio 21.6 RATIO (10-20); Calcium,Total 9.1 mg/dL (8.5-10.1); Chloride 94 mmol/L (98-107); Cholesterol 144 mg/dL (200); Creatinine, Serum 1.99 mg/dL (0.70-1.30); EST Glomerular Filtration Rate 35 mL/min (>60); Est Glom Filt Rate - Afr Amer 42 mL/min (>60); Globulin 4.3 g/dL (2.2-4.2); Glucose 176 mg/dL (74-106); High Density Lipoprotein 42 mg/dL; Magnesium 1.8 mg/dL (1.6-2.6); Potassium 3.2 mmol/L (3.5-5.1); Protein, Total 7.6 g/dL (6.4-8.2); Sodium Level 132 mmol/L (136-145); Triglycerides 152 mg/dL; Very Low Density Lipoprotein 30 mg/dL (5-40)
== END 2021-06-07 23:59 | disposition home or self-care (01) ==
PROVIDERS: Internal Medicine Cardiovascular Disease; PCP Family Medicine; Referring Provider Physician Assistant Medical; Visit Provider Physician Assistant Medical
DX: R05.8 Other specified cough (principal); I50.23 Acute on chronic systolic (congestive) heart failure; I48.0 Paroxysmal atrial fibrillation; I25.5 Ischemic cardiomyopathy; K52.9 Noninfective gastroenteritis and colitis, unspecified; E78.00 Pure hypercholesterolemia, unspecified; I25.810 Atherosclerosis of coronary artery bypass graft(s) without angina pectoris; Z79.01 Long term (current) use of 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s
CPT/HCPCS: 36415; 80048; 80061; 80076; 83735; 83880; 85610; 93306; Q9957; A4216; C8929

== ENCOUNTER 2021-06-14 07:44 | Outpatient (CLI) | payer MEDICARE, OTHER, SELFPAY ==
--- NOTE | 2021-06-14 08:16 | RAD_ITS ---
History: productive cough EXAMINATION/TECHNIQUE: XR Chest 2 Views: COMPARISON: September 19, 2018 FINDINGS: LINES/DEVICES: AICD wires remain in place. LUNGS: Blunting of the costophrenic sulci again noted bilaterally consistent with small effusions and/or scarring. Bibasilar atelectasis/scarring. No pneumothorax. MEDIASTINUM AND CARDIOVASCULAR STRUCTURES: Stable borderline cardiomegaly. Central airways and mediastinal contour are unremarkable. Sternotomy wires and mediastinal clips noted consistent with changes of CABG. BONES AND SOFT TISSUES: Unremarkable. RAD/Chest PA and Lateral IMPRESSION: Chronic bibasilar pleural-parenchymal densities. at 1006 Reported and signed by: Severino Corral MD Electronically Signed: Severino Corral MD at 10:05 EDT ,
== END 2021-06-14 23:59 | disposition home or self-care (01) ==
LOC: RAD 07:46
PROVIDERS: PCP Family Medicine; Referring Provider Internal Medicine Cardiovascular Disease; Visit Provider Internal Medicine Cardiovascular Disease
DX: R05.8 Other specified cough (principal); I50.23 Acute on chronic systolic (congestive) heart failure; I25.5 Ischemic cardiomyopathy; Z87.09 Personal history of other diseases of the respiratory system
CPT/HCPCS: 71046

== ENCOUNTER 2021-07-15 15:51 | Emergency (ER) | payer MEDICARE, OTHER, SELFPAY ==
[2021-07-15 15:53] VITALS: BP 140/98; PULSE 99; RESP 20; TEMP 36.6; O2SAT 93; BMI 26.3
--- NOTE | 2021-07-15 16:21 | ED.VIS.DYS ---
HPI History of Present Illness Chief Complaint: Shortness of Breath Informant: patient Onset/Context/Timing Onset: Yesterday Context: gradual Timing: Intermittent Quality: Positive for Dyspnea on exertion Worsened by: Exertion Relieved by: Nothing Associated Symptoms cough, rhinorrhea, chills and white sputum; Negative for ear pain, fever, sore throat or sweats Chest Pain: Positive for None Narrative Narrative: Patient presents with shortness of breath that has been getting worse since yesterday. Patient states that he has had intermittent shortness of breath over the past month. Patient states that since last evening it has been getting progressively worse. Patient admits to some shaking chills at home. Patient states his breathing is worse with exertion. Patient admits to a cough with some white sputum. Patient also admits to some rhinorrhea. Patient denies any chest pain. Patient denies any nausea or vomiting. Patient does admit to some urinary frequency but denies any dysuria or hematuria. 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 Non-rheumatic tricuspid valve insufficiency NSTEMI (non-ST elevated myocardial infarction) 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 RITESH (obstructive sleep apnea) Paroxysmal atrial fibrillation Paroxysmal atrial fibrillation with rapid ventricular response Paroxysmal atrial flutter Peripheral vascular disease Pleural effusion Secondary pulmonary arterial hypertension Sleep apnea Type 2 diabetes mellitus Ventricular tachycardia Home Medications insulin detemir U-100 4 units SC QHS 02/16/16 [History Last Taken 09/18/18] omeprazole 20 mg capsule,delayed release 20 mg PO DAILY PRN 05/28/17 [History Last Taken 09/19/18] aspirin 81 mg PO DAILY 09/19/18 [History Last Taken 09/19/18] insulin glargine 22 unit SQ DAILY 09/19/18 [History Last Taken 09/19/18] Handicap Placard #1 ea 08/28/19 [Rx Last Taken Unknown] cholecalciferol (vitamin D3) 25 mcg (1,000 unit) capsule 25 mcg PO DAILY 02/09/20 [History Last Taken Unknown] metoprolol succinate 100 mg tablet,extended release 24 hr 100 mg PO BID #180 tab 11/21/20 [Rx Last Taken Unknown] magnesium oxide 400 mg (241.3 mg magnesium) tablet 400 mg PO DAILY #90 tab 02/21/21 [Rx Last Taken Unknown] losartan 25 mg tablet 25 mg PO DAILY #90 tab 04/03/21 [Rx Last Taken Unknown] furosemide 40 mg tablet 40 mg PO BID #180 tab 04/12/21 [Rx Last Taken Unknown] warfarin 4 mg tablet 4 mg PO .COMPLEX #90 tab 04/18/21 [Rx Last Taken Unknown] atorvastatin 80 mg tablet 80 mg PO QHS #90 tab 05/23/21 [Rx Last Taken Unknown] metolazone 2.5 mg tablet 2.5 mg PO DAILY tab 05/23/21 [History Last Taken Unknown] potassium chloride 20 mEq tablet,extended release 40 meq PO BID #180 tab 06/08/21 [Rx Last Taken Unknown] Allergy/AdvReac Type Severity Reaction Status Date / Time amiodarone AdvReac Shortness Verified 07/15/21 15:57 of breath lisinopril AdvReac Other Verified 07/15/21 15:57 Surgical History H/O coronary artery bypass surgery (1997) History of coronary artery stent placement (01/2016) History of implantable cardiac defibrillator (ICD) (02/11/20) History of thoracentesis Hx of CABG S/P PTCA (percutaneous transluminal coronary angioplasty) Social History Smoking Status: Never smoker alcohol intake: current alcohol intake frequency: a few times a week Alcohol type: beer substance use type: does not use caffeine: Yes Type: coffee Number of servings: 2 what type of physical activity do you participate in: none seatbelt use: never do you feel safe at home: Yes ROS ROS ED Constitutional Constitutional ED: Reports chills; Denies fever(s) Eyes Eyes: Denies blurry vision or change in vision ENT ENT ED: Reports rhinorrhea; Denies sore throat Cardiovascular Cardiovascular: Denies chest pain or palpitations Respiratory/Chest Respiratory/Chest: Reports cough and dyspnea Gastrointestinal Gastrointestinal: Denies nausea or vomiting Genitourinary Genitourinary ED: Reports urinary frequency; Denies dysuria or hematuria Musculoskeletal Musculoskeletal: Denies back pain or neck pain Integumentary Denies abscess or rash Neurologic Neurologic: Denies headache(s) or weakness Allergic/Immunologic Allergic/Immunologic ED: Denies mouth swelling or urticaria EXAM Physical Exam Const Vital Signs: 07/15/21 15:53 07/15/21 16:50 07/15/21 16:52 Temperature 97.8 F Temperature Source Temporal Pulse Rate 99 90 Respiratory Rate 20 H 18 Respiratory Effort Respiratory Depth Blood Pressure 140/98 H Blood Pressure Mean 112 Pulse Ox 93 94 Oxygen Delivery Method Room Air Room Air Room Air 07/15/21 17:08 07/15/21 17:18 07/15/21 17:58 Temperature Temperature Source Pulse Rate 87 Respiratory Rate 23 H Respiratory Effort Normal Non-Labored Short of Breath Respiratory Depth Shallow Blood Pressure 158/85 H Blood Pressure Mean 109 Pulse Ox 94 Oxygen Delivery Method Room Air Room Air Room Air Positive well nourished and well developed General Appearance ED: well developed and NAD HEENT Reports moist mucous membranes Neck supple and no JVD Resp normal respiratory effort Auscultation: diminished lung sounds diffuse Cardio regular rate and regular rhythm Neuro oriented x3, CN's II-XII intact bilaterally and no sensory deficits noted Sensorium / Orientation: alert Motor Exam: strength 5/5 throughout Psych mental status grossly normal MDM MDM MDM Narrative Medical decision making narrative: EKG was obtained. On my interpretation it shows atrial fibrillation with a rate of 92. There are no acute ST or T wave changes. There are nonspecific changes in leads I and aVL. QRS interval and QTc intervals were within normal limits. [place] was normal. This was unchanged compared to previous EKG dated 09/22/2018. Portable chest x-ray was obtained. There is 1 view. On my interpretation it shows pulmonary vascular congestion and edema. Underlying infiltrate cannot be excluded. Radiologist also interpreted the x-ray and agrees. CBC was within normal limits. Comprehensive metabolic profile was essentially within normal limits. BNP was elevated at 348.5. Urinalysis shows leukocyte esterase of 100 with 5-10 white blood cells. Patient was given a dose of Lasix here. I recommended admission to the hospital. Patient is refusing this. Patient will sign out AGAINST MEDICAL ADVICE. Patient was instructed to increase his Lasix to 40 mg twice daily. Patient understands and is agreeable with the plan. Patient was instructed return if worse in any way. All questions were answered. Lab Data Attestation: I reviewed the patient's lab results. Labs: Laboratory Results - last 24 hr 07/15/21 07/15/21 07/15/21 16:45 16:45 16:45 WBC 8.5 RBC 4.34 L Hgb 13.8 Hct 41.5 MCV 95.6 H MCH 31.8 MCHC 33.3 RDW Std Deviation 49.1 H RDW Coeff of Nguyen 14.1 Plt Count 181 MPV 10.5 Immature Gran % (Auto) 0.400 Neut % (Auto) 82.5 H Lymph % (Auto) 8.1 L [place] % (Auto) 7.9 Eos % (Auto) 0.7 Baso % (Auto) 0.4 Absolute Neuts (auto) 7.0 Absolute Lymphs (auto) 0.69 L Nucleated RBC % 0 Sodium 139 Potassium 4.6 Chloride 109 H Carbon Dioxide 24.0 Anion Gap 6 BUN 18 Creatinine 1.13 Estim Creat Clear Calc 53.81 Est GFR (MDRD) Af Amer 81 Est GFR (MDRD) Non-Af 67 BUN/Creatinine Ratio 15.9 Glucose 166 H Calcium 9.4 Total Bilirubin 1.00 AST 19 ALT 12 L Alkaline Phosphatase 71 Troponin I High Sens 26 B-Natriuretic Peptide 348.5 H Total Protein 7.3 Albumin 3.3 Globulin 4.0 Albumin/Globulin Ratio 0.8 L Urine Color Urine Clarity Urine pH Ur Specific [place] Urine Protein Urine Glucose (UA) Urine Ketones Urine Occult Blood Urine Nitrite Urine Bilirubin Urine Urobilinogen Ur Leukocyte Esterase Urine RBC Urine WBC Ur Squamous Epith Cells Urine Bacteria Urine Mucus 07/15/21 17:20 WBC RBC Hgb Hct MCV MCH MCHC RDW Std Deviation RDW Coeff of Nguyen Plt Count MPV Immature Gran % (Auto) Neut % (Auto) Lymph % (Auto) [place] % (Auto) Eos % (Auto) Baso % (Auto) Absolute Neuts (auto) Absolute Lymphs (auto) Nucleated RBC % Sodium Potassium Chloride Carbon Dioxide Anion Gap BUN Creatinine Estim Creat Clear Calc Est GFR (MDRD) Af Amer Est GFR (MDRD) Non-Af BUN/Creatinine Ratio Glucose Calcium Total Bilirubin AST ALT Alkaline Phosphatase Troponin I High Sens B-Natriuretic Peptide Total Protein Albumin Globulin Albumin/Globulin Ratio Urine Color Yellow Urine Clarity Clear Urine pH 6.0 Ur Specific [place] 1.015 Urine Protein 15 H Urine Glucose (UA) Normal Urine Ketones Negative Urine Occult Blood Negative Urine Nitrite Negative Urine Bilirubin Negative Urine Urobilinogen Normal Ur Leukocyte Esterase 100 H Urine RBC 0 SEEN Urine WBC 5-10 SEEN Ur Squamous Epith Cells 0 SEEN Urine Bacteria 0 SEEN Urine Mucus 0 SEEN Radiography Chest X-Ray - ED: 1 View, Read by ED Physician, Read by Radiologist and CHF Diagnostic Testing: Clinical Impression(s) from Imaging Studies Chest X-Ray 07/15/21 16:55 IMPRESSION: Cardiomegaly with pulmonary congestion, interstitial and possible airspace disease, small right effusion. Findings may be due to CHF with pulmonary edema. Underlying pneumonia cannot be excluded. Electronically Signed: Guillermo Gaona MD at 17:21 EDT , EKG Initial EKG: Attestation: I personally reviewed and interpreted this EKG as follows: Interpretation: Atrial Fibrillation (92) and Non-Specific ST Changes Prior EKG tracings: available for review Prior: Unchanged (09/22/2018) Discharge Plan Triage Chief Complaint: Shortness of Breath ED Provider: Mando Romo Dx/Rx/DC Orders Clinical Impression: Acute on chronic systolic (congestive) heart failure, Atrial fibrillation Instructions: ED Heart Failure, Congestive (CHF) Prescriptions: No Action cholecalciferol (vitamin D3) 25 mcg (1,000 unit) capsule 25 mcg PO DAILY RF: 0 metolazone 2.5 mg tablet 2.5 mg PO DAILY RF: 0 Hold Instructions: Low NA and K+, elevated creat atorvastatin 80 mg tablet 80 mg PO QHS Qty: 90 RF: 3 omeprazole 20 MG capsule 20 mg PO DAILY PRN (Reason: Indigestion) RF: 0 insulin detemir U-100 100 UNITS/ML insulin pen 4 units SC QHS RF: 0 insulin glargine 100 UNIT/ML insulin pen 22 unit SQ DAILY RF: 0 aspirin 81 MG tablet,delayed release (DR/EC) 81 mg PO DAILY RF: 0 (DME) Handicap Placard Qty: 1 RF: 0 metoprolol succinate 100 mg tablet extended release 24 hr 100 mg PO BID Qty: 180 RF: 6 magnesium oxide 400 mg (241.3 mg magnesium) tablet 400 mg PO DAILY Qty: 90 RF: 3 losartan 25 mg tablet 25 mg PO DAILY Qty: 90 RF: 3 furosemide 40 mg tablet 40 mg PO BID Qty: 180 RF: 3 warfarin 4 mg tablet 4 mg PO .COMPLEX Qty: 90 RF: 3 potassium chloride 20 mEq tablet extended release 40 meq PO BID Qty: 180 RF: 3 Primary Care Provider: Pedro Luis Shin Referrals: Pedro Luis Shin MD [Primary Care Provider] - 3-5 Days Disposition Disposition: Against Medical Advice
--- NOTE | 2021-07-15 16:28 | EKG12_ITS ---
Test Reason : SOB Blood Pressure : / mmHG Vent. Rate : 092 BPM Atrial Rate : 072 BPM P-R Int : 000 ms QRS Dur : 116 ms QT Int : 390 ms P-R-T Axes : 000 -18 122 degrees QTc Int : 482 ms Atrial fibrillation Inferior infarct , age undetermined ST & T wave abnormality, consider lateral ischemia Abnormal ECG Confirmed by YAN SANCHEZ, RAUL ([id number]), film or videotape editor CHINYERE FIELDS ([id number]) on 07/17/2021 12:57:56 PM Referred By: BAILEE/MAX Confirmed By:RAUL HEREDIA MD
[2021-07-15] MEDS: Ipratropium/Albuterol Sulfate 3 ML AMPUL.NEB INHALATION (16:46)
[2021-07-15 16:51] LABS: Absolute Lymphocyte Count 0.69 X10^3/uL (0.83-4.51); Basophil# 0.03 X10^3/uL; Basophil% 0.4 % (0-1); Eosinophil# 0.06 X10^3/uL; Eosinophils% 0.7 % (0-5); Hematocrit 41.5 % (40-54); Hemoglobin 13.8 g/dL (13.0-16.5); Lymphocyte # 0.69 X10^3/ul (0.83-4.51); Lymphocyte % 8.1 % (19-41); Mean Corp Hgb Conc 33.3 g/dL (32-36); Mean Corpuscular Hgb 31.8 pg (27.0-32.0); Mean Corpuscular Volume 95.6 fL (80-94); Mean Platelet Vol. 10.5 fl (6.2-12.0); Monocyte# 0.67 X10^3/uL; Monocyte% 7.9 % (0-10); NRBC Flagged by Analyzer 0 % (0-5); Neutrophil # 7.01 X10^3/uL (2.7-7.7); Neutrophil % 82.5 % (47-70); Platelet Count 181 K/mm3 (150-450); RBC Distribution Width CV 14.1 % (11.6-14.6); RBC Distribution Width SD 49.1 fl (35.1-43.9); Red Blood Count 4.34 M/mm3 (4.6-6.2); White Blood Count 8.5 K/mm3 (4.4-11.0)
[2021-07-15 16:52] VITALS: PULSE 90; RESP 18; O2SAT 94
--- NOTE | 2021-07-15 16:55 | RAD_ITS ---
EXAM: XR CHEST, 1 VIEW CLINICAL INDICATION: Dyspnea TECHNIQUE: Frontal view of the chest. This report was created using [employer] report generation technology. COMPARISON: 06/14/2021. FINDINGS: LUNGS AND PLEURAL SPACES: Patchy opacities and interstitial prominence bilaterally mid and lower lung zones. Pulmonary congestion. Probable small right effusion. Left costophrenic angle is obscured. No pneumothorax. HEART: Stable mild cardiomegaly. Status post coronary artery bypass graft. Coronary stent. MEDIASTINUM: Central airways and mediastinal contour are unremarkable. BONES/JOINTS: Unremarkable. SOFT TISSUES: Unremarkable. TUBES, LINES AND DEVICES: No change AICD pacemaker. RAD/Chest 1 View (Portable) IMPRESSION: Cardiomegaly with pulmonary congestion, interstitial and possible airspace disease, small right effusion. Findings may be due to CHF with pulmonary edema. Underlying pneumonia cannot be excluded. Electronically Signed: Guillermo Gaona MD at 17:21 EDT ,
[2021-07-15 17:08] LABS: ALB/GLOB Ratio 0.8 RATIO (0.9-2.4); AST(SGOT) 19 U/L (15-37); Alanine Aminotransfer ALT/SGPT 12 U/L (16-61); Albumin, Serum 3.3 g/dL (3.2-5.0); Alkaline Phosphatase 71 U/L (45-117); Anion Gap 6 (5-15); BUN 18 mg/dL (7-18); BUN/Creat Ratio 15.9 RATIO (10-20); Calcium,Total 9.4 mg/dL (8.5-10.1); Chloride 109 mmol/L (98-107); Creatinine, Serum 1.13 mg/dL (0.70-1.30); EST Glomerular Filtration Rate 67 mL/min (>60); Est Glom Filt Rate - Afr Amer 81 mL/min (>60); Estimated Creatinine Clearance 53.81 ml/min; Glucose 166 mg/dL (74-106); Potassium 4.6 mmol/L (3.5-5.1); Protein, Total 7.3 g/dL (6.4-8.2); Sodium Level 139 mmol/L (136-145); Troponin-I HS 26 pg/mL (3.0-78.0)
[2021-07-15 17:10] LABS: BNP,B-Type NATRIURETIC PEPTIDE 348.5 pg/mL (0-100)
[2021-07-15 17:32] LABS: Bacteria 0 SEEN /hpf (None Seen); Mucous, Urine 0 SEEN /hpf (<or=2+); Red Blood Cells-Urine 0 SEEN /hpf (0-5); Squamous Epithelial Cells - UA 0 SEEN /hpf (0-5)
[2021-07-15 17:36] LABS: Color, Urine Yellow (Yellow); Glucose, Dipstick Normal (Normal); Ketone-Dipstick Negative (Negative); Leukocyte Esterase-Dipstick 100 /ul (Negative); Nitrite-Dipstick Negative (Negative); Occult Blood-Urine Negative /ul (Negative); Protein-Dipstick 15 mg/dl (Negative); Specific Gravity, Urine 1.015 (1.002-1.030); Urine Bilirubin Dipstick Negative (Negative); Urine Clarity Clear (Clear); Urine Urobilinogen Normal (Normal)
[2021-07-15 17:41] LABS: White Blood Cells 5-10 SEEN /hpf (0-5)
[2021-07-15 17:58] VITALS: BP 158/85; PULSE 87; RESP 23; O2SAT 94
[2021-07-15] MEDS: Furosemide 40 MG/4 ML Vial IV (18:19)
== END 2021-07-15 18:45 | disposition left against medical advice (07) ==
PROVIDERS: Emergency Provider Emergency Medicine; PCP Family Medicine; Visit Provider Emergency Medicine
DX: I11.0 Hypertensive heart disease with heart failure (principal); I50.23 Acute on chronic systolic (congestive) heart failure; I27.21 Secondary pulmonary arterial hypertension; I48.0 Paroxysmal atrial fibrillation; E11.9 Type 2 diabetes mellitus without complications; Z79.4 Long term (current) use of insulin; I25.5 Ischemic cardiomyopathy; E78.5 Hyperlipidemia, unspecified; R35.0 Frequency of micturition; I25.10 Atherosclerotic heart disease of native coronary artery without angina pectoris; K21.9 Gastro-esophageal reflux disease without esophagitis; Z95.810 Presence of automatic (implantable) cardiac defibrillator; I25.2 Old myocardial infarction; G47.33 Obstructive sleep apnea (adult) (pediatric); Z79.899 Other long term (current) drug therapy; Z79.82 Long term (current) use of aspirin; Z95.1 Presence of aortocoronary bypass graft
CPT/HCPCS: 71045; 80053; 81001; 83880; 84484; 85025; 87428; 93005; 94640; 96374; 99251; 99284; G0463; J1940

== ENCOUNTER 2021-08-24 08:13 | Outpatient (RCR) | payer MEDICARE, OTHER, SELFPAY ==
[2021-08-24 08:45] LABS: Prothrombin Time (Protime)PT. 30.8 SECONDS (11.7-14.9)
[2021-08-24 09:11] LABS: Anion Gap 8 (5-15); BUN 19 mg/dL (7-18); BUN/Creat Ratio 15.6 RATIO (10-20); Calcium,Total 9.5 mg/dL (8.5-10.1); Chloride 103 mmol/L (98-107); Creatinine, Serum 1.22 mg/dL (0.70-1.30); EST Glomerular Filtration Rate 61 mL/min (>60); Est Glom Filt Rate - Afr Amer 74 mL/min (>60); Glucose 143 mg/dL (74-106); Potassium 4.1 mmol/L (3.5-5.1); Sodium Level 135 mmol/L (136-145)
== END 2021-08-24 18:00 | disposition home or self-care (01) ==
LOC: LAB 08:13
PROVIDERS: PCP Family Medicine; Referring Provider Internal Medicine Cardiovascular Disease; Visit Provider Internal Medicine Cardiovascular Disease
DX: I48.0 Paroxysmal atrial fibrillation (principal); I48.92 Unspecified atrial flutter; Z79.01 Long term (current) use of 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s
CPT/HCPCS: 36415; 80048; 85610

== ENCOUNTER 2021-10-04 14:58 | Outpatient (CLI) | payer MEDICARE, OTHER, SELFPAY ==
[2021-10-04 17:01] LABS: Erythrocyte Sedimentation Rate 36 mm/hr (0-20)
[2021-10-04 17:10] LABS: International Normalized Ratio 2.7; Prothrombin Time (Protime)PT. 28.1 SECONDS (11.7-14.9)
[2021-10-04 17:16] LABS: LDH 181 U/L (87-241)
[2021-10-07 14:10] LABS: Endomysial Antibody IgA Negative (Negative)
[2021-10-08 14:09] LABS: Immunoglobulin A 329 mg/dL (61-437); t-Transglutaminase IgA <2 U/mL (0-3)
[2021-10-08 19:06] LABS: Albumin 3.3 g/dL (2.9-4.4); Alpha-1-Globulins 0.3 g/dL (0.0-0.4); Alpha-2-Globulins 0.8 g/dL (0.4-1.0); Cytoplasmic Ab (C-ANCA) <1:20 titer (Neg:<1:20); Gamma Globulin 1.3 g/dL (0.4-1.8); Immunoglobulin A 328 mg/dL (61-437); Immunoglobulin E 426 IU/mL (6-495); Immunoglobulin G 1207 mg/dL (603-1613); Immunoglobulin M 93 mg/dL (15-143); PROEL- TOTAL PROTEIN 6.8 g/dL (6.0-8.5)
[2021-10-09 19:46] LABS: Ceruloplasmin 33.9 mg/dL (16.0-31.0); Perinuclear Ab (P-ANCA) <1:20 titer (Neg:<1:20)
== END 2021-10-04 23:59 | disposition home or self-care (01) ==
LOC: LAB 15:00
PROVIDERS: Internal Medicine Cardiovascular Disease; PCP Family Medicine; Referring Provider Internal Medicine Gastroenterology; Visit Provider Internal Medicine Gastroenterology
DX: R19.7 Diarrhea, unspecified (principal); I48.0 Paroxysmal atrial fibrillation; Z79.01 Long term (current) use of 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s
CPT/HCPCS: 36415; 82390; 82784; 82785; 83516; 83615; 84165; 85610; 85652; 86140; 86255; 86256; 86334

== ENCOUNTER → 2021-10-13 | Outpatient (CLI) | payer MEDICARE, OTHER, SELFPAY ==
[2021-10-19 15:53] LABS: Pancreatic Elastase, Fecal 204 (>200)
[2021-10-20 07:41] LABS: Calprotectin, Stool 188 ug/g (0-120)
== END | disposition home or self-care (01) ==
LOC: LABSPEC 08:09
PROVIDERS: PCP Family Medicine; Referring Provider Internal Medicine Gastroenterology; Visit Provider Internal Medicine Gastroenterology
DX: R19.7 Diarrhea, unspecified (principal); K58.9 Irritable bowel syndrome, unspecified
CPT/HCPCS: 82653; 83630; 83993; 87493; 87506

== ENCOUNTER → 2021-10-24 | Outpatient (CLI) | payer MEDICARE, OTHER, SELFPAY ==
--- NOTE | 2021-10-24 07:46 | CT_ITS ---
STUDY: CT ABDOMEN AND PELVIS WITH CONTRAST REASON FOR EXAM: Male, 76 years old. Diarrhea . HERNIA WITH MESH RADIATION DOSAGE (If Supplied By Facility): CTDIvol = ( 23.00 ) mGy, DLP = ( 985.81 ) mGycm TECHNIQUE: Transaxial images were obtained from the dome of the diaphragm to the symphysis pubis without oral contrast. IV 100mL Isovue-300 was administered. Sagittal and coronal images were reconstructed. Individualized dose optimization techniques were used for this CT. COMPARISON: None. FINDINGS: Calcified left pleural plaques. Small right pleural effusion with findings suggestive of round atelectasis in the right lower lobe. The round atelectasis measures 3.8 cm x 3.2 cm. Coronary artery calcification. Prior CABG. There is decreased attenuation of the liver consistent with steatosis. There are multiple small gallstones. Normal spleen. Normal pancreas. Normal bilateral adrenal glands. Normal right kidney. Normal left kidney. Normal visualized stomach. Normal small intestine. There are multiple colonic diverticula consistent with diverticulosis. The appendix is visualized and appears normal. There is diffuse atherosclerotic calcification of the abdominal aorta and its major visceral branches, without a demonstrated aneurysm. Normal inferior vena cava. Normal retroperitoneum. Normal urinary bladder. There is evidence of prior anterior abdominal wall hernia repair with a mesh. There are degenerative changes of the visualized lumbar spine. CT/Abdomen/Pelvis W IV Cont ONLY IMPRESSION: Sigmoid diverticulosis. Fatty infiltration of the liver. Multiple small gallstones. Calcified left pleural plaques. Findings suggestive of round atelectasis in the right lower lobe. Electronically Signed: Akil Davis MD at 11:22 EDT ,
[2021-10-24 08:16] LABS: CREATININE FINGERSTICK 1.1 mg/dL (0.70-1.30); EGFR FINGERSTICK > 60.0000 mL/min (>60)
== END | disposition home or self-care (01) ==
LOC: CT 07:45
PROVIDERS: PCP Family Medicine; Referring Provider Internal Medicine Gastroenterology; Visit Provider Internal Medicine Gastroenterology
DX: R19.7 Diarrhea, unspecified (principal)
CPT/HCPCS: 74177; Q9967

== ENCOUNTER 2021-11-03 07:34 | Inpatient (IN) | payer MEDICARE, OTHER, SELFPAY ==
[2021-11-03] VITALS (16 sets, daily range): BP systolic 88–185; BP diastolic 50–120; PULSE 79–148; RESP 18–34; TEMP 36.3–37.5; O2SAT 92–99; BMI 26.6; BMI 26.3
--- NOTE | 2021-11-03 08:10 | RAD_ITS ---
EXAM: XR CHEST, 1 VIEW CLINICAL INDICATION: sob TECHNIQUE: Frontal view of the chest. This report was created using [employer] report generation technology. COMPARISON: XR Chest dated 07/15/2021 FINDINGS: LUNGS AND PLEURAL SPACES: Small right pleural effusion. Mild bibasilar atelectasis. Pleural calcific plaquing along the left hemidiaphragm again noted. No pneumothorax. HEART: Stable cardiomegaly. MEDIASTINUM: Central airways and mediastinal contour are unremarkable. BONES/JOINTS: Degenerative changes of the shoulders. SOFT TISSUES: Normal. TUBES, LINES AND DEVICES: Cardiac defibrillator wire remains in place. RAD/Chest 1 View (Portable) IMPRESSION: 1. Stable cardiomegaly. 2. Mild bibasilar atelectasis. Electronically Signed: Severino Corral MD at 10:29 EDT ,
--- NOTE | 2021-11-03 08:10 | EKG12_ITS ---
Test Reason : wound Blood Pressure : / mmHG Vent. Rate : 155 BPM Atrial Rate : 000 BPM P-R Int : 000 ms QRS Dur : 122 ms QT Int : 300 ms P-R-T Axes : 000 -32 117 degrees QTc Int : 482 ms Atrial fibrillation with rapid ventricular response Left axis deviation Inferior infarct , age undetermined Marked ST abnormality, possible lateral subendocardial injury Abnormal ECG Confirmed by YAN SANCHEZ, RAUL ([id number]), editor newspaper CHINYERE FIELDS ([id number]) on 11/06/2021 1:02:30 PM Referred By: Shaina Confirmed By:RAUL HEREDIA MD
--- NOTE | 2021-11-03 08:16 | EDS_ITS ---
HPI History of Present Illness Chief Complaint: Wound Informant: patient Narrative Narrative: Patient is a 76-year-old male with extensive medical history including diabetes mellitus, pulmonary atrial hypertension (questionably supposed to be on home oxygen), hypertension, proximal A. fib on Coumadin, ischemic cardiomyopathy, aortic stenosis and ongoing cellulitis of the lower extremities. Patient is currently on clindamycin for purulent drainage and cellulitis of the lower extremities. He states is been going on since 02 October. He has been following with his primary care doctor for this.Today patient started developing shaking chills, increased weakness, worsening pain of his lower extremities and came to the ER via EMS. Chart review in [facility] shows that patient was transition to mupirocin and clindamycin on 10/30/2021 which does have culture sensitivity. Patient took an ibuprofen 800 mg around 5 AM this morning. He is also been dealing with chronic diarrhea and seeing Dr. Davis. Currently denies any chest pain, abdominal pain, nausea or vomiting. Does report increased urinary frequency. 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 09/19/18 [History Last Taken 11/02/21] Handicap Placard #1 ea 08/28/19 [Rx Last Taken Unknown] metoprolol succinate 100 mg tablet,extended release 24 hr 100 mg PO BID #180 tabs 11/21/20 [Rx Last Taken 11/02/21] losartan 25 mg tablet 25 mg PO DAILY #90 tabs 04/03/21 [Rx Last Taken 11/02/21] furosemide 40 mg tablet 40 mg PO BID #180 tabs 04/12/21 [Rx Last Taken 11/02/21] atorvastatin 80 mg tablet 80 mg PO QHS #90 tabs 05/23/21 [Rx Last Taken 11/02/21] potassium chloride 20 mEq tablet,extended release 40 meq PO BID #180 tabs 06/08/21 [Rx Last Taken 11/02/21] Novolin N Flexpen 5 units QHS diabetes 11/03/21 [History Last Taken Unknown] Novolin N Flexpen 12 units DAILY daily 11/03/21 [History Last Taken 11/03/21] clindamycin HCl 300 mg capsule 300 mg PO TID antibiotic 11/03/21 [History Last Taken 11/02/21] mupirocin 2 % topical ointment 1 applic topical TID 11/03/21 [History Last Taken Unknown] warfarin 4 mg tablet See Rx Instructions .Route .COMPLEX blood thinner 11/03/21 [History Last Taken 11/02/21 19:00 4 mg] Allergy/AdvReac Type Severity Reaction Status Date / Time amiodarone AdvReac Shortness Verified 11/03/21 07:35 of breath lisinopril AdvReac cough Verified 11/03/21 14:16 Surgical History H/O coronary artery bypass surgery (1997) History of coronary artery stent placement (01/2016) History of implantable cardiac defibrillator (ICD) (02/11/20) History of thoracentesis Hx of CABG S/P PTCA (percutaneous transluminal coronary angioplasty) Social History Smoking Status: Never smoker alcohol intake: current alcohol intake frequency: a few times a week Alcohol type: beer substance use type: does not use caffeine: Yes Type: coffee Number of servings: 2 what type of physical activity do you participate in: none seatbelt use: never do you feel safe at home: Yes ROS ROS ED Constitutional Constitutional ED: Reports chills and sweats; Denies fever(s) Eyes Eyes: Denies blurry vision or change in vision ENT ENT ED: Denies rhinorrhea or sore throat Cardiovascular Cardiovascular: Denies chest pain or palpitations Respiratory/Chest Respiratory/Chest: Reports cough and dyspnea Gastrointestinal Gastrointestinal: Reports diarrhea; Denies abdominal pain, nausea or vomiting Genitourinary Genitourinary ED: Reports urinary frequency; Denies dysuria Musculoskeletal Musculoskeletal: Reports arthralgias and myalgias Integumentary Reports rash; Denies abscess Neurologic Neurologic: Reports weakness; Denies headache(s) Psychiatric Psychiatric: Denies anxiety EXAM Physical Exam Const Vital Signs: 11/03/21 07:35 11/03/21 07:34 11/03/21 08:35 Temperature 98.1 F 99.5 F H Temperature Source Oral Oral Pulse Rate 96 148 H Respiratory Rate 22 H 22 H 34 H Blood Pressure 150/112 H 185/120 H Blood Pressure Mean 124 141 Pulse Ox 93 92 Oxygen Delivery Method Room Air Room Air Nasal Cannula Oxygen Flow Rate (L/min) 2 11/03/21 08:38 11/03/21 09:00 11/03/21 10:00 Temperature 99.0 F 98.4 F Temperature Source Oral Oral Pulse Rate 135 H 110 H Respiratory Rate 33 H 26 H Blood Pressure 142/95 H 97/73 Blood Pressure Mean 110 81 Pulse Ox 93 94 Oxygen Delivery Method Nasal Cannula Nasal Cannula Nasal Cannula Oxygen Flow Rate (L/min) 2 2 2 11/03/21 11:00 11/03/21 12:00 Temperature 99.0 F 99.1 F Temperature Source Oral Oral Pulse Rate 89 93 Respiratory Rate 20 H 21 H Blood Pressure 88/56 L 93/60 Blood Pressure Mean 66 71 Pulse Ox 94 95 Oxygen Delivery Method Nasal Cannula Nasal Cannula Oxygen Flow Rate (L/min) 2 2 Positive well nourished and well developed Constitutional Narrative: rigors on exam General Appearance ED: well developed HEENT Reports dry mucous membranes Negative for trauma Mouth ED: Yes dry mucous membranes Mouth: dry mucous membranes Eyes PERRL and EOMs intact bilaterally Neck supple Neck Narrative: no meningeal signs General: Negative for tenderness Chest Wall inspection of chest normal and palpation of chest normal Resp clear to auscultation bilaterally Resp Narrative: Tachypnea Auscultation: Negative for rales or rhonchi Cardio Rate: tachycardic Rhythm: abnormal rhythm irregularly irregular GI normal to inspection, nondistended, normoactive bowel sounds, non-tender and non-distended Back/Spine no CVA tenderness Neuro oriented x3 Neuro Narrative: No focal deficits appreciated Motor Exam: general weakness Psych mental status grossly normal Attitude: agitated Skin Skin Narrative: Scattered ulcerated wounds on the bilateral lower legs in various stages of healing. Some are draining purulent material. Surrounding erythema extending to the knees present. There is associated warmth. Swelling and slight deformity of the left fourth toe present. MDM MDM MDM Narrative Medical decision making narrative: Patient evaluated for generalized malaise and shaking chills. He appears uncomfortable upon arrival but no acute distress. While he is afebrile I suspect he is developing a fever which is causing majority of his symptoms. He is given IV fluids and Tylenol with improvement of his symptoms as well as his A. fib with RVR. Patient is on Coumadin and has a history of A. fib . His INR is 2.9 today. Patient does have a leukocytosis of 16.4 and I am concerned that he is not developing worsening cellulitis of his lower extremities. Patient is placed on vancomycin in the emergency room. He will be admitted for cellulitis of the lower extremities is failing outpatient oral antibiotics. Patient is are agreeable to this plan of care Lab Data Attestation: I reviewed the patient's lab results. Labs: Laboratory Results - last 24 hr 11/03/21 11/03/21 11/03/21 09:10 09:10 10:50 WBC Cancelled Corrected WBC Cancelled RBC Cancelled Hgb Cancelled Hct Cancelled MCV Cancelled MCH Cancelled MCHC Cancelled RDW Std Deviation Cancelled RDW Coeff of Nguyen Cancelled Plt Count Cancelled MPV Cancelled Immature Gran % (Auto) Cancelled Neut % (Auto) Cancelled Lymph % (Auto) Cancelled [place] % (Auto) Cancelled Eos % (Auto) Cancelled Baso % (Auto) Cancelled Absolute Neuts (auto) Cancelled Absolute Lymphs (auto) Cancelled Total Counted Cancelled Neutrophils % (Manual) Cancelled Band Neutrophils % Cancelled Lymphocytes % (Manual) Cancelled Monocytes % (Manual) Cancelled Eosinophils % (Manual) Cancelled Basophils % (Manual) Cancelled Metamyelocytes % Cancelled Myelocytes % Cancelled Promyelocytes % Cancelled Blast Cells % Cancelled Plasma Cell % (Manual) Cancelled Other Cells % Cancelled Nucleated RBC % Cancelled Nucleated RBCs/100 WBC Cancelled Differential Comment Cancelled Diff Path Review Cancelled Hypersegmented Neuts Cancelled Atypical Lymphocytes Cancelled Reactive Lymphocytes Cancelled Smudge Cells Cancelled Toxic Granulation Cancelled Toxic Vacuolation Cancelled Dohle Bodies Cancelled Celestine Rods Cancelled Platelet Estimate Cancelled Plt Morphology Comment Cancelled RBC Morphology Cancelled Polychromasia Cancelled Hypochromasia Cancelled Poikilocytosis Cancelled Basophilic Stippling Cancelled Anisocytosis Cancelled Microcytosis Cancelled Macrocytosis Cancelled Spherocytes Cancelled Sickle Cells Cancelled Target Cells Cancelled Tear Drop Cells Cancelled Ovalocytes Cancelled Stomatocytes Cancelled [place] Bodies Cancelled Violet Cells Cancelled Bite Cells Cancelled Crenated Cell Cancelled Acanthocytes (Spur) Cancelled Rouleaux Cancelled Schistocytes Cancelled PT 29.8 H INR 2.9 APTT 52.9 H Sodium Cancelled Potassium Cancelled Chloride Cancelled Carbon Dioxide Cancelled Anion Gap Cancelled BUN Cancelled Creatinine Cancelled Estim Creat Clear Calc Cancelled Est GFR (MDRD) Af Amer Cancelled Est GFR (MDRD) Non-Af Cancelled BUN/Creatinine Ratio Cancelled Glucose Cancelled Lactic Acid Calcium Cancelled Phosphorus Magnesium Total Bilirubin Cancelled AST Cancelled ALT Cancelled Alkaline Phosphatase Cancelled Total Creatine Kinase Cancelled Troponin I High Sens Cancelled Total Protein Cancelled Albumin Cancelled Globulin Cancelled Albumin/Globulin Ratio Cancelled Urine Color Urine Clarity Urine pH Ur Specific [place] Urine Protein Urine Glucose (UA) Urine Ketones Urine Occult Blood Urine Nitrite Urine Bilirubin Urine Urobilinogen Ur Leukocyte Esterase Urine RBC Urine WBC Ur Squamous Epith Cells Urine Bacteria Urine Mucus 11/03/21 11/03/21 11/03/21 10:50 10:50 10:50 WBC 16.4 H Corrected WBC RBC 3.80 L Hgb 11.9 L Hct 35.8 L MCV 94.2 H MCH 31.3 MCHC 33.2 RDW Std Deviation 49.0 H RDW Coeff of Nguyen 14.1 Plt Count 167 MPV 10.2 Immature Gran % (Auto) 0.700 Neut % (Auto) 97.2 H Lymph % (Auto) 0.8 L [place] % (Auto) 1.2 Eos % (Auto) 0.0 Baso % (Auto) 0.1 Absolute Neuts (auto) 16.0 H Absolute Lymphs (auto) 0.13 L Total Counted Neutrophils % (Manual) Band Neutrophils % Lymphocytes % (Manual) Monocytes % (Manual) Eosinophils % (Manual) Basophils % (Manual) Metamyelocytes % Myelocytes % Promyelocytes % Blast Cells % Plasma Cell % (Manual) Other Cells % Nucleated RBC % 0 Nucleated RBCs/100 WBC Differential Comment COMMENT Diff Path Review Hypersegmented Neuts Atypical Lymphocytes Reactive Lymphocytes Smudge Cells Toxic Granulation Toxic Vacuolation Dohle Bodies Celestine Rods Platelet Estimate Plt Morphology Comment RBC Morphology Polychromasia Hypochromasia Poikilocytosis Basophilic Stippling Anisocytosis Microcytosis Macrocytosis Spherocytes Sickle Cells Target Cells Tear Drop Cells Ovalocytes Stomatocytes [place] Bodies Violet Cells Bite Cells Crenated Cell Acanthocytes (Spur) Rouleaux Schistocytes PT INR APTT Sodium 138 Potassium 3.8 Chloride 106 Carbon Dioxide 24.0 Anion Gap 8 BUN 21 H Creatinine 1.46 H Estim Creat Clear Calc 41.64 Est GFR (MDRD) Af Amer 60 Est GFR (MDRD) Non-Af 50 L BUN/Creatinine Ratio 14.4 Glucose 132 H Lactic Acid 1.6 Calcium 8.0 L Phosphorus Magnesium Total Bilirubin 1.20 H AST 11 L ALT 8 L Alkaline Phosphatase 59 Total Creatine Kinase 26 L Troponin I High Sens 72 Total Protein 5.9 L Albumin 2.6 L Globulin 3.3 Albumin/Globulin Ratio 0.8 L Urine Color Urine Clarity Urine pH Ur Specific [place] Urine Protein Urine Glucose (UA) Urine Ketones Urine Occult Blood Urine Nitrite Urine Bilirubin Urine Urobilinogen Ur Leukocyte Esterase Urine RBC Urine WBC Ur Squamous Epith Cells Urine Bacteria Urine Mucus 11/03/21 11/03/21 10:50 11:25 WBC Corrected WBC RBC Hgb Hct MCV MCH MCHC RDW Std Deviation RDW Coeff of Nguyen Plt Count MPV Immature Gran % (Auto) Neut % (Auto) Lymph % (Auto) [place] % (Auto) Eos % (Auto) Baso % (Auto) Absolute Neuts (auto) Absolute Lymphs (auto) Total Counted Neutrophils % (Manual) Band Neutrophils % Lymphocytes % (Manual) Monocytes % (Manual) Eosinophils % (Manual) Basophils % (Manual) Metamyelocytes % Myelocytes % Promyelocytes % Blast Cells % Plasma Cell % (Manual) Other Cells % Nucleated RBC % Nucleated RBCs/100 WBC Differential Comment Diff Path Review Hypersegmented Neuts Atypical Lymphocytes Reactive Lymphocytes Smudge Cells Toxic Granulation Toxic Vacuolation Dohle Bodies Celestine Rods Platelet Estimate Plt Morphology Comment RBC Morphology Polychromasia Hypochromasia Poikilocytosis Basophilic Stippling Anisocytosis Microcytosis Macrocytosis Spherocytes Sickle Cells Target Cells Tear Drop Cells Ovalocytes Stomatocytes [place] Bodies [place] Cells Bite Cells Crenated Cell Acanthocytes (Spur) Rouleaux Schistocytes PT INR APTT Sodium Potassium Chloride Carbon Dioxide Anion Gap BUN Creatinine Estim Creat Clear Calc Est GFR (MDRD) Af Amer Est GFR (MDRD) Non-Af BUN/Creatinine Ratio Glucose Lactic Acid Calcium Phosphorus 1.3 L Magnesium 1.1 L Total Bilirubin AST ALT Alkaline Phosphatase Total Creatine Kinase Troponin I High Sens Total Protein Albumin Globulin Albumin/Globulin Ratio Urine Color Yellow Urine Clarity Clear Urine pH 6.0 Ur Specific [place] 1.015 Urine Protein 30 H Urine Glucose (UA) Normal Urine Ketones Negative Urine Occult Blood Negative Urine Nitrite Negative Urine Bilirubin Negative Urine Urobilinogen Normal Ur Leukocyte Esterase 25 H Urine RBC 0 SEEN Urine WBC 0-5 SEEN Ur Squamous Epith Cells 0-5 SEEN Urine Bacteria 0 SEEN Urine Mucus 0 SEEN Radiography Diagnostic Testing: Clinical Impression(s) from Imaging Studies Chest X-Ray 11/03/21 08:10 IMPRESSION: 1. Stable cardiomegaly. 2. Mild bibasilar atelectasis. Electronically Signed: Severino Corral MD at 10:29 EDT , Foot X-Ray 11/03/21 08:25 IMPRESSION: Soft tissue swelling. Surgical amputation of the fourth toe. Calcaneal spur. Electronically Signed: Severino Corral MD at 10:42 EDT , Rhythm Strip Rhythm Strip: A-fib Rate: 155 Ectopy: None EKG Initial EKG: Attestation: I personally reviewed and interpreted this EKG as follows: Interpretation: Atrial Fibrillation Comments: Atrial fibrillation with rapid ventricular response Left axis deviation Normal QRS Diffuse ST depressions, likely strain related from high rate Discharge Plan Dx/Rx/DC Orders Clinical Impression: Cellulitis of leg, Paroxysmal atrial fibrillation, CKD (chronic kidney disease), Failure of outpatient treatment Disposition Disposition: Acute Care Hospital [facility]
--- NOTE | 2021-11-03 08:25 | RAD_ITS ---
EXAM: XR LEFT FOOT, 2 VIEWS CLINICAL INDICATION: swelling pain TECHNIQUE: Frontal and lateral views of the left foot. This report was created using [employer] report generation technology. COMPARISON: None. FINDINGS: BONES/JOINTS: Amputation of the fourth toe. Plantar calcaneal spur noted. No acute fracture. No subluxation. Normal alignment. Preservation of the joint space. No sclerotic or destructive changes observed. SOFT TISSUES: Soft tissue swelling of the forefoot. No radiopaque foreign body. RAD/Foot 2 Views IMPRESSION: Soft tissue swelling. Surgical amputation of the fourth toe. Calcaneal spur. Electronically Signed: Severino Corral MD at 10:42 EDT ,
[2021-11-03] MEDS: Acetaminophen 500 MG Tablet 1000 MG PO (08:33)
--- NOTE | 2021-11-03 09:36 | NURSING ---
CBCD AND CHEMISTRIES HEMOIZED
[2021-11-03] MEDS: 0.9% Normal Saline 1,000 ML 999 ML IV (09:55)
[2021-11-03 11:03] LABS: Absolute Lymphocyte Count 0.13 X10^3/uL (0.83-4.51); Basophil# 0.01 X10^3/uL; Basophil% 0.1 % (0-1); Hematocrit 35.8 % (40-54); Hemoglobin 11.9 g/dL (13.0-16.5); Lymphocyte # 0.13 X10^3/ul (0.83-4.51); Lymphocyte % 0.8 % (19-41); Mean Corp Hgb Conc 33.2 g/dL (32-36); Mean Corpuscular Hgb 31.3 pg (27.0-32.0); Mean Corpuscular Volume 94.2 fL (80-94); Mean Platelet Vol. 10.2 fl (6.2-12.0); Monocyte% 1.2 % (0-10); NRBC Flagged by Analyzer 0 % (0-5); Neutrophil # 15.95 X10^3/uL (2.7-7.7); Neutrophil % 97.2 % (47-70); POSITIVE DIFFERENTIAL YES; Platelet Count 167 K/mm3 (150-450); RBC Distribution Width CV 14.1 % (11.6-14.6); White Blood Count 16.4 K/mm3 (4.4-11.0)
[2021-11-03 11:05] LABS: Differential Indicated SCAN CRITERIA MET
[2021-11-03 11:15] LABS: International Normalized Ratio 2.9; Prothrombin Time (Protime)PT. 29.8 SECONDS (11.7-14.9)
[2021-11-03 11:16] LABS: Partial Thromboplast Time 52.9 Seconds (24.1-36.2)
[2021-11-03 11:23] LABS: ALB/GLOB Ratio 0.8 RATIO (0.9-2.4); AST(SGOT) 11 U/L (15-37); Alanine Aminotransfer ALT/SGPT 8 U/L (16-61); Albumin, Serum 2.6 g/dL (3.2-5.0); Alkaline Phosphatase 59 U/L (45-117); Anion Gap 8 (5-15); BUN 21 mg/dL (7-18); BUN/Creat Ratio 14.4 RATIO (10-20); CPK Total, Creatine Kinase 26 U/L (39-308); Chloride 106 mmol/L (98-107); Creatinine, Serum 1.46 mg/dL (0.70-1.30); EST Glomerular Filtration Rate 50 mL/min (>60); Est Glom Filt Rate - Afr Amer 60 mL/min (>60); Estimated Creatinine Clearance 41.64 ml/min; Globulin 3.3 g/dL (2.2-4.2); Glucose 132 mg/dL (74-106); Potassium 3.8 mmol/L (3.5-5.1); Protein, Total 5.9 g/dL (6.4-8.2); Sodium Level 138 mmol/L (136-145); Troponin-I HS 72 pg/mL (3.0-78.0)
[2021-11-03 11:28] LABS: Bacteria 0 SEEN /hpf (None Seen); Mucous, Urine 0 SEEN /hpf (<or=2+); Red Blood Cells-Urine 0 SEEN /hpf (0-5)
[2021-11-03 11:33] LABS: Color, Urine Yellow (Yellow); Glucose, Dipstick Normal (Normal); Ketone-Dipstick Negative (Negative); Leukocyte Esterase-Dipstick 25 /ul (Negative); Nitrite-Dipstick Negative (Negative); Occult Blood-Urine Negative /ul (Negative); Protein-Dipstick 30 mg/dl (Negative); Specific Gravity, Urine 1.015 (1.002-1.030); Urine Bilirubin Dipstick Negative (Negative); Urine Clarity Clear (Clear); Urine Urobilinogen Normal (Normal)
[2021-11-03 11:47] LABS: Lactic Acid 1.6 mmol/L (0.4-1.9)
--- NOTE | 2021-11-03 11:48 | NURSING ---
PAGED DR NEW THROUGH OFFICE, BUSY BUT WILL CALL BACK
[2021-11-03 11:58] LABS: Squamous Epithelial Cells - UA 0-5 SEEN /hpf (0-5); White Blood Cells 0-5 SEEN /hpf (0-5)
--- NOTE | 2021-11-03 13:10 | PCM.HP.STD ---
[facility] - General General Date of Admission: 11/03/21 Date of Service: 11/03/21 Chief Complaint: Bilateral lower extremity swelling, see patient purulent drainage worsening since October 02. HPI Narrative FRANCISCO DUBOSE, is a 76 M with history of multiple comorbid include diabetes mellitus type 2 came to ED for progressive worsening of both lower legs with swelling, redness, seepage and pus points, left worse than right. Patient also has intermittent fever and chills. Patient stated started after he did lawn mowing on October 02. He had similar occurrence about 40 years ago when he did lawn mowing on grasses. Patient also on furosemide 40 mg twice daily for both leg swelling and multiple rounds of antibiotic. Office visit note of 10/30 by Sheryl Morris of, [employer] reviewed. Patient has superficial ulcer of both lower legs left more than right. Wound culture was on 1 which reported as moderate gram-positive cocci, many staff aureus, rare Serratia marcescens and rare Providencia rettgeri. Patient is started on IV antibiotics vancomycin and Zosyn EGD and further admitted. Patient also history of multiple cardiac diseases including CABG, A. fib, chronic systolic heart failure status post AICD. He has chronic shortness of breath for 3 to 4 years. At that time CABG was done and one of the vessel was blocked and was told by cemetery vault installer that it cannot be fixed probably based on the anatomy. Shortness of breath got worse for last 1 month when he developed cellulitis mainly dyspnea on mild exertion. Denies chest pain pressure or tightness. Chest x-ray initially reviewed and shows bilateral atelectasis and cardiomegaly. Twelve-lead EKG individually reviewed shows A. fib with RVR at 155 bpm, LAD, inferior leads ST-T chronic changes. No acute change from previous EKG 07/15/2021. Patient heart rate is controlled after some time in ED. Labs reviewed and discussed in assessment and plan [facility] Medical History Acute on chronic systolic (congestive) heart failure Alcohol abuse Atherosclerosis of coronary artery bypass graft without angina pectoris Atrial fibrillation CAD (coronary artery disease) Cardiac dysrhythmia Cardiomyopathy Chronic systolic congestive heart failure Congestive heart failure Elevated troponin Essential (primary) hypertension GERD (gastroesophageal reflux disease) Heavy alcohol use HLD (hyperlipidemia) Implantable cardioverter-defibrillator (ICD) at end of battery life Ischemic cardiomyopathy residential current use of amiodarone roasterman current use of 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 Non-rheumatic tricuspid valve insufficiency NSTEMI (non-ST elevated myocardial infarction) 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 RITESH (obstructive sleep apnea) Paroxysmal atrial fibrillation Paroxysmal atrial fibrillation with rapid ventricular response Paroxysmal atrial flutter Peripheral vascular disease Pleural effusion Secondary pulmonary arterial hypertension Sleep apnea Type 2 diabetes mellitus Ventricular tachycardia Home Medications insulin detemir U-100 100 unit/mL (3 mL) subcutaneous pen 4 units subcut QHS 02/16/16 [History Last Taken 09/18/18] aspirin 81 mg tablet,delayed release 81 mg PO DAILY 09/19/18 [History Last Taken 09/19/18] insulin glargine 100 unit/mL (3 mL) subcutaneous pen 22 unit SQ DAILY dm 09/19/18 [History Last Taken 09/19/18] Handicap Placard #1 ea 08/28/19 [Rx Last Taken Unknown] metoprolol succinate 100 mg tablet,extended release 24 hr 100 mg PO BID #180 tabs 11/21/20 [Rx Last Taken Unknown] losartan 25 mg tablet 25 mg PO DAILY #90 tabs 04/03/21 [Rx Last Taken Unknown] furosemide 40 mg tablet 40 mg PO BID #180 tabs 04/12/21 [Rx Last Taken Unknown] atorvastatin 80 mg tablet 80 mg PO QHS #90 tabs 05/23/21 [Rx Last Taken Unknown] potassium chloride 20 mEq tablet,extended release 40 meq PO BID #180 tabs 06/08/21 [Rx Last Taken Unknown] clindamycin HCl 300 mg capsule 300 mg PO TID 11/03/21 [History Last Taken Unknown] mupirocin 2 % topical ointment 1 applic topical TID 11/03/21 [History Last Taken Unknown] warfarin 4 mg tablet See Rx Instructions .Route .COMPLEX 11/03/21 [History Last Taken Unknown] Allergy/AdvReac Type Severity Reaction Status Date / Time amiodarone AdvReac Shortness Verified 11/03/21 07:35 of breath lisinopril AdvReac Other Verified 11/03/21 07:35 Surgical History H/O coronary artery bypass surgery (1997) History of coronary artery stent placement (01/2016) History of implantable cardiac defibrillator (ICD) (02/11/20) History of thoracentesis Hx of CABG S/P PTCA (percutaneous transluminal coronary angioplasty) Social History Smoking Status: Never smoker alcohol intake: current alcohol intake frequency: a few times a week Alcohol type: beer substance use type: does not use caffeine: Yes Type: coffee Number of servings: 2 what type of physical activity do you participate in: none seatbelt use: never do you feel safe at home: Yes ROS ROS Narrative Constitutional: Reports fatigue and weakness. Intermittent fever and chills HEENT: Reports systems reviewed and no addt'l complaints, except as documented Respiratory/Chest: Mild dyspnea on exertion. No chest pain. Status post AICD Gastrointestinal: Has mild chronic diarrhea, follows Dr. Davis. Undergoing evaluation. No abdominal pain, nausea or vomiting. No GI bleed. 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 No joint pain but limited range of motion around ankle. Neurologic: Denies seizure-like activity skin: No ulcer. No rash Endocrinology: Reports systems reviewed and no addt'l complaints, except as documented Hematologic/Lymphatic: Chronic PAD, reports systems reviewed and no addt'l complaints, except as documented Rest 14 ROS are negative except as mentioned in HPI Vital Signs Vital Signs Vital Signs: 11/03/21 07:35 11/03/21 07:34 11/03/21 08:35 Temperature 98.1 F 99.5 F H Temperature Source Oral Oral Pulse Rate 96 148 H Respiratory Rate 22 H 22 H 34 H Blood Pressure 150/112 H 185/120 H Blood Pressure Mean 124 141 Pulse Ox 93 92 Oxygen Delivery Method Room Air Room Air Nasal Cannula Oxygen Flow Rate (L/min) 2 11/03/21 08:38 11/03/21 09:00 11/03/21 10:00 Temperature 99.0 F 98.4 F Temperature Source Oral Oral Pulse Rate 135 H 110 H Respiratory Rate 33 H 26 H Blood Pressure 142/95 H 97/73 Blood Pressure Mean 110 81 Pulse Ox 93 94 Oxygen Delivery Method Nasal Cannula Nasal Cannula Nasal Cannula Oxygen Flow Rate (L/min) 2 2 2 11/03/21 11:00 11/03/21 12:00 Temperature 99.0 F 99.1 F Temperature Source Oral Oral Pulse Rate 89 93 Respiratory Rate 20 H 21 H Blood Pressure 88/56 L 93/60 Blood Pressure Mean 66 71 Pulse Ox 94 95 Oxygen Delivery Method Nasal Cannula Nasal Cannula Oxygen Flow Rate (L/min) 2 2 Weight Weight: 175 lb 7.807 oz Body Mass Index (BMI) 26.6 Physical Exam Narrative General: Alert, Oriented x3, Cooperative HEENT: Loss of hearing mild 1 years atraumatic, PERRLA, EOMI, Normocephalic Oral: No Gingival or Mucosal Lesions/ Ulcerations Neck: Supple, No JVD, Negative Carotid Bruits Lungs: Air entry diminished in bilateral lung bases. No crepitation/rhonchi. On 2 L of oxygen. No tachypnea Cardiovascular: A. fib, Normal S1, Normal S2, No murmurs. Heart rate about 90s Abdomen: Bowel Sounds Present, Soft, Non Tender, Non-Distended : No renal angle tenderness. No suprapubic tenderness. Extremities: Bilateral lower leg pitting edema, Capillary Refill Less than 3 Seconds Skin: Redness in both lower legs below knee, swelling, seepage with purulent drainage, pus points, left leg more than right leg. 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 Surgical incision marked with both feet. No Tenderness to Palpation of Joints or Extremities Neurological: Cranial nerves II-XII grossly intact, DTR 2+/4, decreased sensation in both feet. Psych/Mental Status: Flat affect. Results Lab / Micro Data Result Diagrams: 11/03/21 10:50 11/03/21 10:50 Labs: Laboratory Results - last 24 hr 11/03/21 10:50: PT 29.8 H, INR 2.9, APTT 52.9 H 11/03/21 10:50: Lactic Acid 1.6 11/03/21 10:50: Sodium 138, Potassium 3.8, Chloride 106, Carbon Dioxide 24.0, Anion Gap 8, BUN 21 H, Creatinine 1.46 H, Estim Creat Clear Calc 41.64, Est GFR (MDRD) Af Amer 60, Est GFR (MDRD) Non-Af 50 L, BUN/Creatinine Ratio 14.4, Glucose 132 H, Calcium 8.0 L, Total Bilirubin 1.20 H, AST 11 L, ALT 8 L, Alkaline Phosphatase 59, Total Creatine Kinase 26 L, Troponin I High Sens 72, Total Protein 5.9 L, Albumin 2.6 L, Globulin 3.3, Albumin/Globulin Ratio 0.8 L 11/03/21 10:50: WBC 16.4 H, RBC 3.80 L, Hgb 11.9 L, Hct 35.8 L, MCV 94.2 H, MCH 31.3, MCHC 33.2, RDW Std Deviation 49.0 H, RDW Coeff of Nguyen 14.1, Plt Count 167, MPV 10.2, Immature Gran % (Auto) 0.700, Neut % (Auto) 97.2 H, Lymph % (Auto) 0.8 L, Rowan % (Auto) 1.2, Eos % (Auto) 0.0, Baso % (Auto) 0.1, Absolute Neuts (auto) 16.0 H, Absolute Lymphs (auto) 0.13 L, Nucleated RBC % 0, Differential Comment COMMENT 11/03/21 11:25: Urine Color Yellow, Urine Clarity Clear, Urine pH 6.0, Ur Specific [place] 1.015, Urine Protein 30 H, Urine Glucose (UA) Normal, Urine Ketones Negative, Urine Occult Blood Negative, Urine Nitrite Negative, Urine Bilirubin Negative, Urine Urobilinogen Normal, Ur Leukocyte Esterase 25 H, Urine RBC 0 SEEN, Urine WBC 0-5 SEEN, Ur Squamous Epith Cells 0-5 SEEN, Urine Bacteria 0 SEEN, Urine Mucus 0 SEEN Micro: Microbiology 11/03/21 08:20 Nasal Secretion SARS-CoV-2 Antigen (Rapid) - Final Radiology Impression Chest X-Ray 11/03/21 08:10 IMPRESSION: 1. Stable cardiomegaly. 2. Mild bibasilar atelectasis. Electronically Signed: Severino Corral MD at 10:29 EDT , Foot X-Ray 11/03/21 08:25 IMPRESSION: Soft tissue swelling. Surgical amputation of the fourth toe. Calcaneal spur. Electronically Signed: Severino Corral MD at 10:42 EDT , Assessment & Plan Assessment/Plan (1) Cellulitis of leg: PLAN: Plan 76-year-old male admitted for worsening of bilateral lower leg cellulitis for about 1 month. 1. Bilateral soft tissue infection with small weeping ulcer/purulent drainage consistent with cellulitis: [facility] Patient on furosemide 40 mg twice daily continue. Wound care nurse consulted. Started on IV vancomycin and Unasyn, continue. ID consult discussed with him. Recent wound culture report from 10/30 reviewed. Wound culture and blood cultures x2 ordered. Continue mupirocin ointment patient does not have signs or symptoms suggestive of sepsis. 2. Cardiovascular disease: Coronary artery status post stents and CABG, chronic systolic heart failure status post AICD, secondary pulmonary arterial hypertension, bilateral peripheral arterial disease, paroxysmal A. fib, and wide-complex tachycardia/ventricular tachycardia: Patient home cardiac medications aspirin, atorvastatin, warfarin, metoprolol succinate, furosemide with potassium supplement continued. Patient had A. fib with RVR probably precipitated by infection/cellulitis in ED. Most recent heart rate 82/min. Most recent echo was technically difficult in May 2021 reported as EF, normal LV size and systolic function and could not visualize all 4 valves. Prior to that, last echo in August 2018 reported as EF 35%, mild aortic stenosis. Serum magnesium 1.1, phosphorus 1.3. 3. Diabetes mellitus type 2: Glucose in BMP 132. A1c ordered for tomorrow AM. Accu-Chek before meals and at bedtime is covered with Humalog sliding scale. Home dose of Lantus changed to 22 units daily. 4. Other comorbidities include chronic alcohol use disorder with dependence, hypertension, RITESH on CPAP: Home medication reconciliation done. VT prophylaxis on warfarin. INR 2.9. Hold today's warfarin dose and resume warfarin 3 mg daily from tomorrow AM. Monitor INR daily. Total time of the visit including total time spent in counseling or coordination of care, (more than 50% of the total time, spent in obtaining medical information from nurses and other ancillary care providers,explaining to the patient about labs, imaging, diagnosis and management of complex medical problem), discussion with ID data security consultant, review of current chronic medical record, previous wound culture, review of labs and imaging is 50 minutes. Living will/advanced directive/end of life care: Patient does have living will or advanced directive. He is not sure who is power of [place] attorney for health but is sitting near the bedside. After discussion of benefits/risks procedures involved with full code, DNR CC arrest and DNR CC, the patient opted for full code. Patient does want artificial life support including intubation, tube feed, ventilator and/chest compression, central venous catheter, vasopressor and DC shock if needed Total time spent in [id number] encounter in discussion of advanced directive 16 minutes. Microbiology Past 72 Hours 11/03/21 08:20 Nasal Secretion SARS-CoV-2 Antigen (Rapid) - Final Laboratory Results 11/03/21 10:50: PT 29.8 H, INR 2.9, APTT 52.9 H 11/03/21 10:50: Lactic Acid 1.6 11/03/21 10:50: Sodium 138, Potassium 3.8, Chloride 106, Carbon Dioxide 24.0, Anion Gap 8, BUN 21 H, Creatinine 1.46 H, Estim Creat Clear Calc 41.64, Est GFR (MDRD) Af Amer 60, Est GFR (MDRD) Non-Af 50 L, BUN/Creatinine Ratio 14.4, Glucose 132 H, Calcium 8.0 L, Total Bilirubin 1.20 H, AST 11 L, ALT 8 L, Alkaline Phosphatase 59, Total Creatine Kinase 26 L, Troponin I High Sens 72, Total Protein 5.9 L, Albumin 2.6 L, Globulin 3.3, Albumin/Globulin Ratio 0.8 L 11/03/21 10:50: WBC 16.4 H, RBC 3.80 L, Hgb 11.9 L, Hct 35.8 L, MCV 94.2 H, MCH 31.3, MCHC 33.2, RDW Std Deviation 49.0 H, RDW Coeff of Nguyen 14.1, Plt Count 167, MPV 10.2, Immature Gran % (Auto) 0.700, Neut % (Auto) 97.2 H, Lymph % (Auto) 0.8 L, Rowan % (Auto) 1.2, Eos % (Auto) 0.0, Baso % (Auto) 0.1, Absolute Neuts (auto) 16.0 H, Absolute Lymphs (auto) 0.13 L, Nucleated RBC % 0, Differential Comment COMMENT 11/03/21 10:50: Phosphorus 1.3 L, Magnesium 1.1 L 11/03/21 11:25: Urine Color Yellow, Urine Clarity Clear, Urine pH 6.0, Ur Specific [place] 1.015, Urine Protein 30 H, Urine Glucose (UA) Normal, Urine Ketones Negative, Urine Occult Blood Negative, Urine Nitrite Negative, Urine Bilirubin Negative, Urine Urobilinogen Normal, Ur Leukocyte Esterase 25 H, Urine RBC 0 SEEN, Urine WBC 0-5 SEEN, Ur Squamous Epith Cells 0-5 SEEN, Urine Bacteria 0 SEEN, Urine Mucus 0 SEEN Clinical Impression(s) from Imaging Studies Chest X-Ray 11/03/21 08:10 IMPRESSION: 1. Stable cardiomegaly. 2. Mild bibasilar atelectasis. Foot X-Ray 11/03/21 08:25 IMPRESSION: Soft tissue swelling. Surgical amputation of the fourth toe. Calcaneal spur. Charges/Coding Visit Charges Inpatient E&M: 24870 Init Hosp L3 Procedures Hospitalists Procedures: 57578 Advncd Care Plan 30 Min
[2021-11-03 13:40] LABS: Magnesium 1.1 mg/dL (1.6-2.6); Phosphorus 1.3 mg/dL (2.5-4.9)
--- NOTE | 2021-11-03 14:22 | WOUNDNOTE ---
wound photo: left lower leg
--- NOTE | 2021-11-03 14:22 | WOUNDNOTE ---
wound photo: left great toe
--- NOTE | 2021-11-03 14:23 | WOUNDNOTE ---
wound photo: left lateral heel
--- NOTE | 2021-11-03 14:24 | WOUNDNOTE ---
wound photo: right lower leg/foot
--- NOTE | 2021-11-03 14:32 | PCM.RX.CS ---
Consult Pharmacy has been consulted to manage selected antiobiotic: Vancomycin Type of Consult: New start Suspected Infection: Skin/Soft tissue Prior Doses of Antibiotics Received/Current Regimen: received vanc 1250mg IV x1 in E.R. starting at 13:18 today Labs: Sodium 138 mmol/L (136-145) 11/03/21 10:50 Potassium 3.8 mmol/L (3.5-5.1) 11/03/21 10:50 Chloride 106 mmol/L (98-107) 11/03/21 10:50 Carbon Dioxide 24.0 mmol/L (21.0-32.0) 11/03/21 10:50 Anion Gap 8 (5-15) 11/03/21 10:50 BUN 21 mg/dL (7-18) H 11/03/21 10:50 Creatinine 1.46 mg/dL (0.70-1.30) H 11/03/21 10:50 Est GFR (MDRD) Af Amer 60 mL/min (>60) 11/03/21 10:50 Est GFR (MDRD) Non-Af 50 mL/min (>60) L 11/03/21 10:50 BUN/Creatinine Ratio 14.4 RATIO (10-20) 11/03/21 10:50 Glucose 132 mg/dL (74-106) H 11/03/21 10:50 Microbiology: Microbiology 11/03/21 08:20 Nasal Secretion SARS-CoV-2 Antigen (Rapid) - Final Weight used for dosin.5 kg Estimated Creatinine Clearance: 44ml/min Goal Trough: 15-20 mcg/mL Pharmacy Plan for Drug Dosing: Starting 12 hours after the initial dose in E.R., will give vanc 500mg IV q12h. Will check a vanc trough level before the 4th total dose. The patient's CrCl of 44ml/min was calculated using an adjusted body weight. Pharmacy Service will continue to monitor and adjust dosing as required. Follow-Up Labs: Trough Vancomycin Labs to be done on [date and time ordered]: 11/05/21 00:30
--- NOTE | 2021-11-03 15:02 | PCM.CONS.GEN ---
Assessment & Plan Assessment/Plan (1) Cellulitis of leg: PLAN: On vanc/zosyn, cxs pending here, reported grew staph aureus, serratia, and providencia as outpt. Will reviewed cxs. Will follow, thank you HPI Consult Data Date of Consult: 11/03/21 HPI Narrative Reason for Consultation: cellulitis HPI Narrative: FRANCISCO DUBOSE, is a 76 M who presented to ED 8/5 this AM with one month progressive RLE pain, redness, swelling, and purulent drainage. Last night had severe rigors and excruciating pain in leg. Had been on clinda per report. Admitted here, on vanc/zosyn, feeling a little better. Full ROS performed and neg except as noted above. [facility] Medical History Acute on chronic systolic (congestive) heart failure Alcohol abuse Atherosclerosis of coronary artery bypass graft without angina pectoris Atrial fibrillation CAD (coronary artery disease) Cardiac dysrhythmia Cardiomyopathy Chronic systolic congestive heart failure Congestive heart failure Elevated troponin Essential (primary) hypertension GERD (gastroesophageal reflux disease) Heavy alcohol use HLD (hyperlipidemia) Implantable cardioverter-defibrillator (ICD) at end of battery life Ischemic cardiomyopathy care home current use of amiodarone care home current use of 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 Non-rheumatic tricuspid valve insufficiency NSTEMI (non-ST elevated myocardial infarction) 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 RITESH (obstructive sleep apnea) Paroxysmal atrial fibrillation Paroxysmal atrial fibrillation with rapid ventricular response Paroxysmal atrial flutter Peripheral vascular disease Pleural effusion Secondary pulmonary arterial hypertension Sleep apnea Type 2 diabetes mellitus Ventricular tachycardia Home Medications aspirin 81 mg tablet,delayed release 81 mg PO DAILY heart [facility] 09/19/18 [History Last Taken 11/02/21] Handicap Placard #1 ea 08/28/19 [Rx Last Taken Unknown] metoprolol succinate 100 mg tablet,extended release 24 hr 100 mg PO BID #180 tabs 11/21/20 [Rx Last Taken 11/02/21] losartan 25 mg tablet 25 mg PO DAILY #90 tabs 04/03/21 [Rx Last Taken 11/02/21] furosemide 40 mg tablet 40 mg PO BID #180 tabs 04/12/21 [Rx Last Taken 11/02/21] atorvastatin 80 mg tablet 80 mg PO QHS #90 tabs 05/23/21 [Rx Last Taken 11/02/21] potassium chloride 20 mEq tablet,extended release 40 meq PO BID #180 tabs 06/08/21 [Rx Last Taken 11/02/21] Novolin N Flexpen 5 units QHS diabetes 11/03/21 [History Last Taken Unknown] Novolin N Flexpen 12 units DAILY daily 11/03/21 [History Last Taken 11/03/21] clindamycin HCl 300 mg capsule 300 mg PO TID antibiotic 11/03/21 [History Last Taken 11/02/21] mupirocin 2 % topical ointment 1 applic topical TID 11/03/21 [History Last Taken Unknown] warfarin 4 mg tablet See Rx Instructions .Route .COMPLEX blood thinner 11/03/21 [History Last Taken 11/02/21 19:00 4 mg] Allergy/AdvReac Type Severity Reaction Status Date / Time amiodarone AdvReac Shortness Verified 11/03/21 07:35 of breath lisinopril AdvReac cough Verified 11/03/21 14:16 Surgical History H/O coronary artery bypass surgery (1997) History of coronary artery stent placement (01/2016) History of implantable cardiac defibrillator (ICD) (02/11/20) History of thoracentesis Hx of CABG S/P PTCA (percutaneous transluminal coronary angioplasty) Social History Smoking Status: Never smoker alcohol intake: current alcohol intake frequency: a few times a week Alcohol type: beer substance use type: does not use caffeine: Yes Type: coffee Number of servings: 2 what type of physical activity do you participate in: none seatbelt use: never do you feel safe at home: Yes Physical Exam Const no apparent distress General Appearance: lethargic HEENT normocephalic and head/scalp atraumatic Eyes PERRL and EOMs intact bilaterally Neck supple and No nodes Resp normal air movement and clear to auscultation bilaterally Cardio regular rate and regular rhythm GI soft to palpation, non-tender and non-distended Extremity General Extremity: edema Skin Skin Narrative: reviewed photos, RLE lesions Neuro CN's II-XII intact bilaterally Lab / Micro Data Attestation: I reviewed the patient's lab results. Result Diagrams: 11/03/21 10:50 11/03/21 10:50 Labs: Laboratory Results - last 24 hr 11/03/21 09:10: WBC Cancelled, Corrected WBC Cancelled, RBC Cancelled, Hgb Cancelled, Hct Cancelled, MCV Cancelled, MCH Cancelled, MCHC Cancelled, RDW Std Deviation Cancelled, RDW Coeff of Nguyen Cancelled, Plt Count Cancelled, MPV Cancelled, Immature Gran % (Auto) Cancelled, Neut % (Auto) Cancelled, Lymph % (Auto) Cancelled, [place] % (Auto) Cancelled, Eos % (Auto) Cancelled, Baso % (Auto) Cancelled, Absolute Neuts (auto) Cancelled, Absolute Lymphs (auto) Cancelled, Total Counted Cancelled, Neutrophils % (Manual) Cancelled, Band Neutrophils % Cancelled, Lymphocytes % (Manual) Cancelled, Monocytes % (Manual) Cancelled, Eosinophils % (Manual) Cancelled, Basophils % (Manual) Cancelled, Metamyelocytes % Cancelled, Myelocytes % Cancelled, Promyelocytes % Cancelled, Blast Cells % Cancelled, Plasma Cell % (Manual) Cancelled, Other Cells % Cancelled, Nucleated RBC % Cancelled, Nucleated RBCs/100 WBC Cancelled, Differential Comment Cancelled, Diff Path Review Cancelled, Hypersegmented Neuts Cancelled, Atypical Lymphocytes Cancelled, Reactive Lymphocytes Cancelled, Smudge Cells Cancelled, Toxic Granulation Cancelled, Toxic Vacuolation Cancelled, Dohle Bodies Cancelled, Celestine Rods Cancelled, Platelet Estimate Cancelled, Plt Morphology Comment Cancelled, RBC Morphology Cancelled, Polychromasia Cancelled, Hypochromasia Cancelled, Poikilocytosis Cancelled, Basophilic Stippling Cancelled, Anisocytosis Cancelled, Microcytosis Cancelled, Macrocytosis Cancelled, Spherocytes Cancelled, Sickle Cells Cancelled, Target Cells Cancelled, Tear Drop Cells Cancelled, Ovalocytes Cancelled, Stomatocytes Cancelled, Ferguson-Blanchester Bodies Cancelled, Thai Cells Cancelled, Bite Cells Cancelled, Crenated Cell Cancelled, Acanthocytes (Spur) Cancelled, Rouleaux Cancelled, Schistocytes Cancelled 11/03/21 09:10: Sodium Cancelled, Potassium Cancelled, Chloride Cancelled, Carbon Dioxide Cancelled, Anion Gap Cancelled, BUN Cancelled, Creatinine Cancelled, Estim Creat Clear Calc Cancelled, Est GFR (MDRD) Af Amer Cancelled, Est GFR (MDRD) Non-Af Cancelled, BUN/Creatinine Ratio Cancelled, Glucose Cancelled, Calcium Cancelled, Total Bilirubin Cancelled, AST Cancelled, ALT Cancelled, Alkaline Phosphatase Cancelled, Total Creatine Kinase Cancelled, Troponin I High Sens Cancelled, Total Protein Cancelled, Albumin Cancelled, Globulin Cancelled, Albumin/Globulin Ratio Cancelled 11/03/21 10:50: PT 29.8 H, INR 2.9, APTT 52.9 H 11/03/21 10:50: Lactic Acid 1.6 11/03/21 10:50: Sodium 138, Potassium 3.8, Chloride 106, Carbon Dioxide 24.0, Anion Gap 8, BUN 21 H, Creatinine 1.46 H, Estim Creat Clear Calc 41.64, Est GFR (MDRD) Af Amer 60, Est GFR (MDRD) Non-Af 50 L, BUN/Creatinine Ratio 14.4, Glucose 132 H, Calcium 8.0 L, Total Bilirubin 1.20 H, AST 11 L, ALT 8 L, Alkaline Phosphatase 59, Total Creatine Kinase 26 L, Troponin I High Sens 72, Total Protein 5.9 L, Albumin 2.6 L, Globulin 3.3, Albumin/Globulin Ratio 0.8 L 11/03/21 10:50: WBC 16.4 H, RBC 3.80 L, Hgb 11.9 L, Hct 35.8 L, MCV 94.2 H, MCH 31.3, MCHC 33.2, RDW Std Deviation 49.0 H, RDW Coeff of Nguyen 14.1, Plt Count 167, MPV 10.2, Immature Gran % (Auto) 0.700, Neut % (Auto) 97.2 H, Lymph % (Auto) 0.8 L, Montour % (Auto) 1.2, Eos % (Auto) 0.0, Baso % (Auto) 0.1, Absolute Neuts (auto) 16.0 H, Absolute Lymphs (auto) 0.13 L, Nucleated RBC % 0, Differential Comment COMMENT 11/03/21 10:50: Phosphorus 1.3 L, Magnesium 1.1 L 11/03/21 11:25: Urine Color Yellow, Urine Clarity Clear, Urine pH 6.0, Ur Specific Laurens 1.015, Urine Protein 30 H, Urine Glucose (UA) Normal, Urine Ketones Negative, Urine Occult Blood Negative, Urine Nitrite Negative, Urine Bilirubin Negative, Urine Urobilinogen Normal, Ur Leukocyte Esterase 25 H, Urine RBC 0 SEEN, Urine WBC 0-5 SEEN, Ur Squamous Epith Cells 0-5 SEEN, Urine Bacteria 0 SEEN, Urine Mucus 0 SEEN Micro: Microbiology 11/03/21 08:20 Nasal Secretion SARS-CoV-2 Antigen (Rapid) - Final Radiology Impression Chest X-Ray 11/03/21 08:10 IMPRESSION: 1. Stable cardiomegaly. 2. Mild bibasilar atelectasis. Electronically Signed: Severino Corral MD at 10:29 EDT , Foot X-Ray 11/03/21 08:25 IMPRESSION: Soft tissue swelling. Surgical amputation of the fourth toe. Calcaneal spur. Electronically Signed: Severino Corral MD at 10:42 EDT ,
[2021-11-03 16:26] LABS: M R Staph aureus DNA By PCR Negative (Negative); Probe Check PASS; Specimen Processing Control PASS; Staph aureus DNA By PCR POSITIVE (Negative)
[2021-11-03] MEDS: Juven (unflavored) Packet 1 PACKET PO (17:13)
[2021-11-03 17:30] LABS: Bedside Glucose 144 mg/dL (74-106)
[2021-11-03] MEDS: Potassium Chloride Oral Tablet 20 MEQ 40 MEQ PO (18:11)
[2021-11-03] MEDS: Furosemide 40 MG Tablet PO (18:11)
[2021-11-03] MEDS: Atorvastatin Calcium 80 MG Tablet PO (22:00)
[2021-11-03] MEDS: Metoprolol(XL)Succ 100 MG Tablet PO (22:00)
[2021-11-03] MEDS: Insulin Glargine-YFGN 100 UNIT/ML Pen SC (22:07)
[2021-11-03] MEDS: Insulin Lispro 100 UNIT/ML INSULN.PEN SC (22:14)
[2021-11-03] MEDS: Mupirocin Ointment 22gm Tube 1 APPLIC TOPICAL (22:19)
[2021-11-03 23:30] LABS: Bedside Glucose 257 mg/dL (74-106)
[2021-11-04] VITALS (11 sets, daily range): BP systolic 105–109; BP diastolic 33–60; PULSE 68–93; RESP 16–18; TEMP 36.3–36.4; O2SAT 96–98
[2021-11-04] MEDS: oxyCODONE 5 MG Tablet PO ×3 (00:09→17:14)
[2021-11-04] MEDS: Morphine 2 MG/ML Syringe IV (01:07)
[2021-11-04] MEDS: 0.9% Saline Lock 10 ML Syringe IV (01:08)
[2021-11-04] MEDS: Vancomycin IV 500 MG/100 ML BAG 100 MG IV ×2 (03:22→13:28)
[2021-11-04] MEDS: Mupirocin Ointment 22gm Tube 1 APPLIC TOPICAL ×3 (05:59→22:38)
[2021-11-04 06:23] LABS: Absolute Lymphocyte Count 0.46 X10^3/uL (0.83-4.51); Absolute Neutrophil Count 23.1 X10^3/uL (2.0-7.7); Basophil# 0.05 X10^3/uL; Basophil% 0.2 % (0-1); Eosinophil# 0.03 X10^3/uL; Eosinophils% 0.1 % (0-5); Hematocrit 37.2 % (40-54); Lymphocyte # 0.46 X10^3/ul (0.83-4.51); Lymphocyte % 1.8 % (19-41); Mean Corp Hgb Conc 32.3 g/dL (32-36); Mean Corpuscular Hgb 31.2 pg (27.0-32.0); Mean Corpuscular Volume 96.6 fL (80-94); Mean Platelet Vol. 10.6 fl (6.2-12.0); Monocyte# 1.04 X10^3/uL; NRBC Flagged by Analyzer 0 % (0-5); Neutrophil # 23.06 X10^3/uL (2.7-7.7); Neutrophil % 89.1 % (47-70); POSITIVE DIFFERENTIAL YES; Platelet Count 145 K/mm3 (150-450); RBC Distribution Width CV 14.2 % (11.6-14.6); Red Blood Count 3.85 M/mm3 (4.6-6.2); White Blood Count 25.9 K/mm3 (4.4-11.0)
[2021-11-04] MEDS: Insulin Lispro 100 UNIT/ML INSULN.PEN SC ×3 (06:25→22:44)
[2021-11-04 06:34] LABS: International Normalized Ratio 2.9
[2021-11-04 06:45] LABS: Differential Indicated SCAN CRITERIA MET
[2021-11-04 06:49] LABS: Differential Comment SCANNED
[2021-11-04 06:52] LABS: Anion Gap 4 (5-15); BUN 35 mg/dL (7-18); BUN/Creat Ratio 19.1 RATIO (10-20); Calcium,Total 8.4 mg/dL (8.5-10.1); Chloride 104 mmol/L (98-107); Creatinine, Serum 1.83 mg/dL (0.70-1.30); EST Glomerular Filtration Rate 38 mL/min (>60); Est Glom Filt Rate - Afr Amer 46 mL/min (>60); Estimated Creatinine Clearance 33.22 ml/min; Glucose 211 mg/dL (74-106); Magnesium 1.8 mg/dL (1.6-2.6); Potassium 5.5 mmol/L (3.5-5.1); Sodium Level 133 mmol/L (136-145)
[2021-11-04 07:10] LABS: Bedside Glucose 209 mg/dL (74-106)
[2021-11-04 08:28] LABS: Hemoglobin A1c 6.8 % (3.8-5.6)
[2021-11-04] MEDS: Pantoprazole Sodium 20 MG Tablet PO (08:28)
[2021-11-04] MEDS: Metoprolol(XL)Succ 100 MG Tablet PO ×2 (08:28→22:38)
[2021-11-04] MEDS: Aspirin E.C. 81 MG Tablet PO (08:28)
[2021-11-04] MEDS: Furosemide 40 MG Tablet PO (08:28)
[2021-11-04] MEDS: Juven (unflavored) Packet 1 PACKET PO ×2 (08:36→17:13)
[2021-11-04] MEDS: Insulin Glargine-YFGN 100 UNIT/ML Pen 20 UNIT SC (08:36)
[2021-11-04] MEDS: Acetaminophen 325 MG Tablet 650 MG PO ×2 (08:44→17:13)
--- NOTE | 2021-11-04 10:32 | PCM.PN.HOSP ---
Subjective Subjective Follow-up for bilateral leg cellulitis and A. fib with RVR Patient heart rate was controlled by the time he was admitted on the floor but during the night he again went into A. fib with RVR as per nursing report. Most recent heart rate is 86/min. Patient is stated he has pain in the leg last night and could not rest well. Currently is controlled Objective Data Objective Data Vital Signs: Vital Signs Temp Pulse Resp BP Pulse Ox O2 Del Method O2 Flow Rate 97.3 F L 86 18 109/47 L 98 Nasal Cannula 2 11/04/21 08:21 11/04/21 08:28 11/04/21 08:21 11/04/21 08:21 11/04/21 08:21 11/04/21 08:21 11/04/21 03:00 Oxygen Flow Rate (L/min) 2 Oxygen Delivery Method Nasal Cannula Weight: 172 lb 13.478 oz Body Mass Index (BMI) 26.3 Intake & Output: Intake and Output for Last 24 Hours 11/02/21 11/03/21 11/04/21 23:59 23:59 23:59 Intake Total 1813.05 / 1813.05 540.2 / 540.2 Output Total 200 / 200 Balance 1813.05 / 1713.05 340.2 / 340.2 Lab / Micro Data Result Diagrams: 11/04/21 05:49 11/04/21 05:49 Labs: Laboratory Results - last 24 hr 11/03/21 10:50: PT 29.8 H, INR 2.9, APTT 52.9 H 11/03/21 10:50: Lactic Acid 1.6 11/03/21 10:50: Sodium 138, Potassium 3.8, Chloride 106, Carbon Dioxide 24.0, Anion Gap 8, BUN 21 H, Creatinine 1.46 H, Estim Creat Clear Calc 41.64, Est GFR (MDRD) Af Amer 60, Est GFR (MDRD) Non-Af 50 L, BUN/Creatinine Ratio 14.4, Glucose 132 H, Calcium 8.0 L, Total Bilirubin 1.20 H, AST 11 L, ALT 8 L, Alkaline Phosphatase 59, Total Creatine Kinase 26 L, Troponin I High Sens 72, Total Protein 5.9 L, Albumin 2.6 L, Globulin 3.3, Albumin/Globulin Ratio 0.8 L 11/03/21 10:50: WBC 16.4 H, RBC 3.80 L, Hgb 11.9 L, Hct 35.8 L, MCV 94.2 H, MCH 31.3, MCHC 33.2, RDW Std Deviation 49.0 H, RDW Coeff of Nguyen 14.1, Plt Count 167, MPV 10.2, Immature Gran % (Auto) 0.700, Neut % (Auto) 97.2 H, Lymph % (Auto) 0.8 L, Branch % (Auto) 1.2, Eos % (Auto) 0.0, Baso % (Auto) 0.1, Absolute Neuts (auto) 16.0 H, Absolute Lymphs (auto) 0.13 L, Nucleated RBC % 0, Differential Comment COMMENT 11/03/21 10:50: Phosphorus 1.3 L, Magnesium 1.1 L 11/03/21 11:25: Urine Color Yellow, Urine Clarity Clear, Urine pH 6.0, Ur Specific Barry 1.015, Urine Protein 30 H, Urine Glucose (UA) Normal, Urine Ketones Negative, Urine Occult Blood Negative, Urine Nitrite Negative, Urine Bilirubin Negative, Urine Urobilinogen Normal, Ur Leukocyte Esterase 25 H, Urine RBC 0 SEEN, Urine WBC 0-5 SEEN, Ur Squamous Epith Cells 0-5 SEEN, Urine Bacteria 0 SEEN, Urine Mucus 0 SEEN 11/03/21 14:00: S.aureus Protein A PCR POSITIVE H, MRSA (PCR) Negative 11/03/21 17:05: POC Glucose 144 H 11/03/21 22:10: POC Glucose 257 H 11/04/21 05:49: WBC 25.9 H, RBC 3.85 L, Hgb 12.0 L, Hct 37.2 L, MCV 96.6 H, MCH 31.2, MCHC 32.3, RDW Std Deviation 50.0 H, RDW Coeff of Nguyen 14.2, Plt Count 145 L, MPV 10.6, Immature Gran % (Auto) 4.800 H, Neut % (Auto) 89.1 H, Lymph % (Auto) 1.8 L, Branch % (Auto) 4.0, Eos % (Auto) 0.1, Baso % (Auto) 0.2, Absolute Neuts (auto) 23.1 H, Absolute Lymphs (auto) 0.46 L, Nucleated RBC % 0, Differential Comment SCANNED 11/04/21 05:49: PT 30.0 H, INR 2.9 11/04/21 05:49: Sodium 133 L, Potassium 5.5 H, Chloride 104, Carbon Dioxide 25.0, Anion Gap 4 L, BUN 35 H, Creatinine 1.83 H, Estim Creat Clear Calc 33.22, Est GFR (MDRD) Af Amer 46 L, Est GFR (MDRD) Non-Af 38 L, BUN/Creatinine Ratio 19.1, Glucose 211 H, Calcium 8.4 L, Magnesium 1.8 11/04/21 05:49: Hemoglobin A1c 6.8 H 11/04/21 05:49: Phosphorus 4.0 11/04/21 06:23: POC Glucose 209 H Micro: Microbiology 11/03/21 08:20 Nasal Secretion SARS-CoV-2 Antigen (Rapid) - Final Radiography Diagnostic Testing: Radiology Impression Chest X-Ray 11/03/21 08:10 IMPRESSION: 1. Stable cardiomegaly. 2. Mild bibasilar atelectasis. Foot X-Ray 11/03/21 08:25 IMPRESSION: Soft tissue swelling. Surgical amputation of the fourth toe. Calcaneal spur. Electronically Signed: Severino Corral MD at 10:42 EDT Reading Location ID and State: [facility] / [place] Tel , Service support , Rhythm Strip Rhythm Strip: A-fib Rate: 155 Ectopy: None Physical Exam Narrative General: Alert, Oriented x3, Cooperative. Afebrile HEENT: Loss of hearing bilateral atraumatic, PERRLA, EOMI, Normocephalic Oral: No Gingival or Mucosal Lesions/ Ulcerations Neck: Supple, No JVD, Negative Carotid Bruits Lungs: Air entry diminished in bilateral lung bases. No crepitation/rhonchi. On 2 L of oxygen. No tachypnea Cardiovascular: A. fib, Normal S1, Normal S2, No murmurs. Abdomen: Bowel Sounds Present, Soft, Non Tender, Non-Distended : No renal angle tenderness. No suprapubic tenderness. Extremities: Bilateral lower leg pitting edema, improved capillary Refill Less than 3 Seconds Skin: Redness in both lower legs below knee, swelling, pus points, left leg more than right leg; cleaned with a dressing and Mathew wrap bandage. 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 Surgical incision marked with both feet. No Tenderness to Palpation of Joints or Extremities Neurological: Cranial nerves II-XII grossly intact, DTR 2+/4, decreased sensation in both feet. Psych/Mental Status: Flat affect. Assessment & Plan Assessment/Plan (1) Cellulitis of leg: PLAN: Plan 76-year-old male admitted for worsening of bilateral lower leg cellulitis for about 1 month. 1. Bilateral soft tissue infection with small weeping ulcer/purulent drainage consistent with cellulitis: [facility] Patient on furosemide 40 mg twice daily continue. Wound care nurse consulted. Started on IV vancomycin and Unasyn, continue. ID consult discussed with him. Recent wound culture report from 10/30 reviewed. Wound culture and blood cultures x2 ordered. Continue mupirocin ointment patient does not have signs or symptoms suggestive of sepsis. 11/04: No fever. Wound culture, blood culture are pending. Seen by ID. Continue vancomycin and Zosyn. Left foot x-ray shows soft tissue swelling, no subluxation or no acute fracture. Normal alignment. Leukocytosis went up, neutrophil 89%. Lactic acid normal. 2. Cardiovascular disease, A. fib with RVR, present on admission: Coronary artery status post stents and CABG, chronic systolic heart failure status post AICD, secondary pulmonary arterial hypertension, bilateral peripheral arterial disease, paroxysmal A. fib, and wide-complex tachycardia/ventricular tachycardia: Patient home cardiac medications aspirin, atorvastatin, warfarin, metoprolol succinate, furosemide with potassium supplement continued. Patient had A. fib with RVR probably precipitated by infection/cellulitis in ED. Most recent heart rate 82/min. Most recent echo was technically difficult in May 2021 reported as EF, normal LV size and systolic function and could not visualize all 4 valves. Prior to that, last echo in August 2018 reported as EF 35%, mild aortic stenosis.Severe hypomagnesemia and hypophosphatemia. Serum magnesium 1.1, phosphorus 1.3. 11/04: Patient went to A. fib with RVR last night. Serum magnesium and phosphorus replaced. Repeat serum magnesium 1.9. Repeat phosphorus 4.0. Patient has mild hyperkalemia 5.5. Potassium supplement discontinued. 3. 11/04 DAVIS due to diuretic, prerenal on CKD stage IV: Patient baseline creatinine runs around 1.40, estimated creatinine clearance 41 mL/min stage IIIb. BUN/creatinine went up to 35/1.3 mainly due to diuretic. Patient on furosemide and potassium supplement as home medication; discontinued. 4.. Diabetes mellitus type 2: Glucose in BMP 132. Accu-Chek before meals and at bedtime is covered with Humalog sliding scale. Home dose of Lantus changed to 22 units daily. 11/04: Glucose around 200-250. A1c 6.8. Scheduled Humalog sliding scale ordered. Lantus dose increased. 5. Other comorbidities include chronic alcohol use disorder with dependence, hypertension, RITESH on CPAP: Home medication reconciliation done. VT prophylaxis on warfarin. INR 2.9. Hold today's warfarin dose and resume warfarin 3 mg daily from tomorrow AM. Monitor INR daily. Total time of the visit including total time spent in counseling or coordination of care, (more than 50% of the total time, spent in obtaining medical information from nurses and other ancillary care providers,explaining to the patient about labs, imaging, diagnosis and management of complex multiple active medical problem), discussion with ID exchange consultant, review of current chronic medical record, previous wound culture, review of labs and imaging is 50 minutes. Living will/advanced directive/end of life care: Patient does have living will or advanced directive. He is not sure who is power of speech coach for health but is sitting near the bedside. After discussion of benefits/risks procedures involved with full code, DNR CC arrest and DNR CC, the patient opted for full code. Patient does want artificial life support including intubation, tube feed, ventilator and/chest compression, central venous catheter, vasopressor and DC shock if needed Total time spent in [id number] encounter in discussion of advanced directive 16 minutes. Clinical Impression(s) from Imaging Studies Chest X-Ray 11/03/21 08:10 IMPRESSION: 1. Stable cardiomegaly. 2. Mild bibasilar atelectasis. Foot X-Ray 11/03/21 08:25 IMPRESSION: Soft tissue swelling. Surgical amputation of the fourth toe. Calcaneal spur. Charges/Coding Visit Charges Inpatient E&M: 69814 Subs Hosp L3
[2021-11-04] MEDS: Menthol/Lanolin/Calamine/Znox 113 GM Tube 1 APPLIC TOPICAL (11:51)
[2021-11-04] MEDS: Insulin Lispro 100 UNIT/ML INSULN.PEN 8 UNIT SC (11:53)
[2021-11-04] MEDS: Insulin Glargine-YFGN 100 UNIT/ML Pen SC ×2 (11:54→22:44)
--- NOTE | 2021-11-04 12:05 | CASEMGMT ---
RN TATIANA Face to Face with patient for initial transition planning/care coordination assessment. RN CM introduced self and role at [facility]. Patient lying in bed, alert and oriented. Patient willing to participate in assessment and is able to answer all questions appropriately. Care providers, pharmacy, and demographics verified. Patient wishes to discharge home, denies need for home health at this time. Patient states he has no further needs or concerns at this time. CM to follow for discharge planning needs that may arise. PCP: Kip Specialists: LITTLE Arevalo [facility]erred [facility]: [facility] Pres[facility] Benefit: yes Living Will/HPOA: yes, Estephania Brandt LNOK: Living Arrangements: Patient states he lives with in a 2 story home with access to bed and bath on main level. Patient states he is independent and able to ambulate stairs. Transportation: self, DME/HHC: Patient states he has shower chair, walker, and portable oxygen tanks at home but he refuses to wear. No oxygen concentrator at home, was setup previously with [employer]. Patient denies previous SNF. Patient states he had HHC in past but could not recall agency. Disposition Plan: Patient to discharge home with family support and follow-up plans in place. Will monitor for HHC and possible IV ATBs at discharge. Kathryn DAWN, RN, CM
[2021-11-04 12:16] LABS: Bedside Glucose 224 mg/dL (74-106)
[2021-11-04] MEDS: Jantoven 2 MG Tablet PO (17:13)
[2021-11-04] MEDS: Atorvastatin Calcium 80 MG Tablet PO (22:37)
[2021-11-05] VITALS (7 sets, daily range): BP systolic 90–131; BP diastolic 59–87; PULSE 70–105; RESP 16–18; TEMP 36.4–36.6; O2SAT 93–98
[2021-11-05 00:49] LABS: Absolute Lymphocyte Count 0.42 X10^3/uL (0.83-4.51); Absolute Neutrophil Count 19.9 X10^3/uL (2.0-7.7); Basophil# 0.05 X10^3/uL; Basophil% 0.2 % (0-1); Eosinophil# 0.22 X10^3/uL; Hematocrit 34.6 % (40-54); Hemoglobin 11.1 g/dL (13.0-16.5); Lymphocyte # 0.42 X10^3/ul (0.83-4.51); Lymphocyte % 1.9 % (19-41); Mean Corp Hgb Conc 32.1 g/dL (32-36); Mean Corpuscular Hgb 31.4 pg (27.0-32.0); Mean Platelet Vol. 10.3 fl (6.2-12.0); Monocyte# 0.77 X10^3/uL; Monocyte% 3.5 % (0-10); NRBC Flagged by Analyzer 0 % (0-5); Neutrophil # 19.86 X10^3/uL (2.7-7.7); Neutrophil % 90.4 % (47-70); POSITIVE DIFFERENTIAL YES; Platelet Count 136 K/mm3 (150-450); RBC Distribution Width CV 14.4 % (11.6-14.6); RBC Distribution Width SD 51.7 fl (35.1-43.9); Red Blood Count 3.53 M/mm3 (4.6-6.2)
[2021-11-05 00:51] LABS: Differential Indicated SCAN CRITERIA MET
[2021-11-05 01:04] LABS: International Normalized Ratio 3.2; Prothrombin Time (Protime)PT. 32.7 SECONDS (11.7-14.9)
[2021-11-05] MEDS: Morphine 2 MG/ML Syringe IV (01:06)
[2021-11-05 01:18] LABS: Differential Comment SCANNED
[2021-11-05 01:35] LABS: Anion Gap 5 (5-15); BUN 61 mg/dL (7-18); BUN/Creat Ratio 25.6 RATIO (10-20); Calcium,Total 8.5 mg/dL (8.5-10.1); Chloride 103 mmol/L (98-107); Creatinine, Serum 2.38 mg/dL (0.70-1.30); EST Glomerular Filtration Rate 28 mL/min (>60); Est Glom Filt Rate - Afr Amer 34 mL/min (>60); Estimated Creatinine Clearance 25.55 ml/min; Glucose 197 mg/dL (74-106); Sodium Level 134 mmol/L (136-145)
[2021-11-05 01:47] LABS: Vancomycin, Trough Level 17.2 ug/mL (5.0-15.0)
[2021-11-05] MEDS: Acetaminophen 325 MG Tablet 650 MG PO (02:35)
[2021-11-05] MEDS: oxyCODONE 5 MG Tablet PO (02:35)
[2021-11-05] MEDS: Vancomycin IV 500 MG/100 ML BAG 100 MG IV (02:36)
--- NOTE | 2021-11-05 02:45 | PHA.PHARE_ITS ---
Consult Pharmacy has been consulted to manage selected antiobiotic: Vancomycin Type of Consult: Follow-up Suspected Infection: Skin/Soft tissue Prior Doses of Antibiotics Received/Current Regimen: Medications Vancomycin HCl (Vancomycin) 1,000 mg in 200 mls @ 200 mls/hr IV Q24H ADRIAN Vancomycin HCl () 500 mg in 100 mls @ 100 mls/hr IV Q12H ADRIAN Stop: 11/05/21 04:00 Last Admin: 11/05/21 02:36 Dose: 100 mls/hr Labs: Sodium 134 mmol/L (136-145) L 11/05/21 00:40 Potassium 5.0 mmol/L (3.5-5.1) 11/05/21 00:40 Chloride 103 mmol/L (98-107) 11/05/21 00:40 Carbon Dioxide 26.0 mmol/L (21.0-32.0) 11/05/21 00:40 Anion Gap 5 (5-15) 11/05/21 00:40 BUN 61 mg/dL (7-18) H 11/05/21 00:40 Creatinine 2.38 mg/dL (0.70-1.30) H 11/05/21 00:40 Est GFR (MDRD) Af Amer 34 mL/min (>60) L 11/05/21 00:40 Est GFR (MDRD) Non-Af 28 mL/min (>60) L 11/05/21 00:40 BUN/Creatinine Ratio 25.6 RATIO (10-20) H 11/05/21 00:40 Glucose 197 mg/dL (74-106) H 11/05/21 00:40 Vancomycin Trough 17.2 ug/mL (5.0-15.0) H 11/05/21 00:40 Microbiology: Microbiology 11/03/21 14:00 Wound - Leg, Left Gram Stain - Final 11/03/21 14:00 Wound - Leg, Left Wound Culture - 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 A new dosing schedule of 1000mg q24h will give a better pharmacokinetic profile amid the decrease in clearance. Another trough will be drawn prior to the 3rd dose of the new regimen. Pharmacy Service will continue to monitor and adjust dosing as required. Follow-Up Labs: Trough Vancomycin Labs to be done on [date and time ordered]: 11/08/21 @0200
[2021-11-05] MEDS: Mupirocin Ointment 22gm Tube 1 APPLIC TOPICAL ×3 (05:32→22:32)
--- NOTE | 2021-11-05 07:25 | PCM.PN.HOSP ---
Subjective Subjective 76-year-old male admitted for worsening bilateral lower extremity swelling and redness over a months duration Objective Data Objective Data Vital Signs: Vital Signs Temp Pulse Resp BP Pulse Ox O2 Del Method O2 Flow Rate 97.7 F L 81 16 104/59 L 98 Nasal Cannula 2 11/05/21 02:56 11/05/21 02:56 11/05/21 02:56 11/05/21 02:56 11/05/21 02:56 11/05/21 02:56 11/05/21 02:56 Oxygen Flow Rate (L/min) 2 Oxygen Delivery Method Nasal Cannula Weight: 78.5 kg Body Mass Index (BMI) 26.3 Intake & Output: Intake and Output for Last 24 Hours 11/03/21 11/04/21 11/05/21 23:59 23:59 23:59 Intake Total 1813.05 / 1813.05 793.20 / 793.20 550 / 550 Output Total 200 / 200 Balance 1813.05 / 1713.05 593.20 / 593.20 550 / 550 Lab / Micro Data Result Diagrams: 11/05/21 00:40 11/05/21 00:40 Labs: Laboratory Results - last 24 hr 11/04/21 05:49: Hemoglobin A1c 6.8 H 11/04/21 11:52: POC Glucose 224 H 11/05/21 00:40: PT 32.7 H, INR 3.2 11/05/21 00:40: Vancomycin Trough 17.2 H 11/05/21 00:40: WBC 22.0 H, RBC 3.53 L, Hgb 11.1 L, Hct 34.6 L, MCV 98.0 H, MCH 31.4, MCHC 32.1, RDW Std Deviation 51.7 H, RDW Coeff of Nguyen 14.4, Plt Count 136 L, MPV 10.3, Immature Gran % (Auto) 3.000 H, Neut % (Auto) 90.4 H, Lymph % (Auto) 1.9 L, [place] % (Auto) 3.5, Eos % (Auto) 1.0, Baso % (Auto) 0.2, Absolute Neuts (auto) 19.9 H, Absolute Lymphs (auto) 0.42 L, Nucleated RBC % 0, Differential Comment SCANNED 11/05/21 00:40: Sodium 134 L, Potassium 5.0, Chloride 103, Carbon Dioxide 26.0, Anion Gap 5, BUN 61 H, Creatinine 2.38 H, Estim Creat Clear Calc 25.55, Est GFR (MDRD) Af Amer 34 L, Est GFR (MDRD) Non-Af 28 L, BUN/Creatinine Ratio 25.6 H, Glucose 197 H, Calcium 8.5 Micro: Microbiology 11/03/21 14:00 Wound - Leg, Left Gram Stain - Final 11/03/21 14:00 Wound - Leg, Left Wound Culture - Preliminary GNR lactose harvesting manager 11/03/21 11:25 Urine, Clean Catch Urine Culture - Final Mixed Gram Pos & Gram Neg Org 11/03/21 08:20 Nasal Secretion SARS-CoV-2 Antigen (Rapid) - Final Rhythm Strip Rhythm Strip: A-fib Rate: 155 Ectopy: None Physical Exam Narrative GENERAL: cooperative HEENT: Atraumatic; EYES; Anicteric, Normal Conjunctiva NECK; supple, normal thyroid, RESPIRATORY: Diminished to auscultation CARDIOVASCULAR: Regular S1 S2, GI: soft, normoactive bowel sounds, : No Renal angle tenderness; EXTREMITIES: Trace bipedal edema, no clubbing, MUSCULOSKELETAL: Right great toe amputation NEURO: Awake; no lateralizing signs. SKIN: Bilateral lower extremity erythema PSYCH; Flat affect Assessment & Plan Assessment/Plan (1) Cellulitis of leg: PLAN: Plan 76-year-old male admitted for worsening bilateral lower extremity swelling and redness over a months duration 1. Bilateral lower extremity cellulitis with Serratia marcescens ? Patient initially managed with vancomycin and Zosyn. Both medications discontinued in view of worsening kidney function and patient MRSA screen being negative. Subsequently started on Rocephin 2. Acute kidney injury ? Superimposed on chronic kidney disease stage III. Patient creatinine on admission was 1.46 worsened to 1.83-day prior and is up to 2.38 as of 11/05/2021. Patient diuretics held. Also discontinued vancomycin and Zosyn started on IV fluid with subsequent monitoring of electrolytes ordered 3. Coronary artery disease ? With previous CABG and subsequent stent placement 4. Chronic congestive heart failure with reduced ejection fraction ? Echo obtained in August 2018 demonstrated EF of 35%. Patient diuretics held in view of impaired kidney function 5. Ischemic cardiomyopathy ? Status post AICD placement 6. Peripheral arterial disease ? Per history. Patient is on antiplatelet therapy with aspirin 7. Paroxysmal A. fib ? Patient has had occasional A. fib with RVR with rates being currently well controlled. On systemic anticoagulation with slightly elevated INR of 3.2 8. Hypertension - Blood pressure controlled, home medications continued with dose adjustment as needed 9. Dyslipidemia -Patient is on statin therapy, continued at home dose 10. Diabetes mellitus type II -on long acting insulin, Accu-Cheks a.c. and at bedtime and covered with sliding scale insulin 11. Obstructive sleep apnea ? On CPAP at night 12. DVT prophylaxis ? On warfarin 11. Physical deconditioning - Requested for PT OT eval and director social welfare to assist with discharge planning Charges/Coding Visit Charges Inpatient E&M: 57742 Subs Hosp L3
[2021-11-05] MEDS: Insulin Lispro 100 UNIT/ML INSULN.PEN SC ×4 (09:19→22:37)
[2021-11-05] MEDS: Juven (unflavored) Packet 1 PACKET PO ×2 (09:22→16:23)
[2021-11-05] MEDS: Pantoprazole Sodium 20 MG Tablet PO (09:22)
[2021-11-05] MEDS: Aspirin E.C. 81 MG Tablet PO (09:22)
[2021-11-05 10:09] LABS: Bedside Glucose 175 mg/dL (74-106)
[2021-11-05] MEDS: 0.9% Normal Saline 1,000 ML 100 ML IV ×2 (10:25→22:29)
[2021-11-05] MEDS: Ceftriaxone 1 GM/50 ML BAG IV (10:25)
[2021-11-05] MEDS: Insulin Glargine-YFGN 100 UNIT/ML Pen 20 UNIT SC (10:32)
[2021-11-05 12:25] LABS: Bedside Glucose 174 mg/dL (74-106)
[2021-11-05] MEDS: Jantoven 2 MG Tablet PO (16:23)
[2021-11-05 16:50] LABS: Bedside Glucose 117 mg/dL (74-106)
[2021-11-05] MEDS: Atorvastatin Calcium 80 MG Tablet PO (22:29)
[2021-11-05] MEDS: Metoprolol(XL)Succ 100 MG Tablet PO (22:35)
[2021-11-05] MEDS: Insulin Glargine-YFGN 100 UNIT/ML Pen SC (22:37)
[2021-11-05 23:00] LABS: Bedside Glucose 212 mg/dL (74-106)
[2021-11-06 04:40] VITALS: BP 142/94; PULSE 92; RESP 18; TEMP 36.6; O2SAT 96
[2021-11-06] MEDS: Insulin Lispro 100 UNIT/ML INSULN.PEN SC ×3 (06:07→12:47)
[2021-11-06] MEDS: Mupirocin Ointment 22gm Tube 1 APPLIC TOPICAL (06:07)
[2021-11-06] MEDS: 0.9% Normal Saline 1,000 ML 100 ML IV (06:11)
--- NOTE | 2021-11-06 06:30 | NURSING ---
Pt refused morning labs
[2021-11-06 06:51] LABS: Bedside Glucose 202 mg/dL (74-106)
--- NOTE | 2021-11-06 07:27 | PCM.PN.HOSP ---
Subjective Subjective Patient seen had a relatively uneventful night. Awaiting morning labs prior to making a decision regarding patient's disposition Objective Data Objective Data Vital Signs: Vital Signs Temp Pulse Resp BP Pulse Ox O2 Del Method O2 Flow Rate 97.8 F 92 18 142/94 H 96 Nasal Cannula 2 11/06/21 04:40 11/06/21 04:40 11/06/21 04:40 11/06/21 04:40 11/06/21 04:40 11/06/21 04:40 11/06/21 04:40 Oxygen Flow Rate (L/min) 2 Oxygen Delivery Method Nasal Cannula Weight: 78.4 kg Body Mass Index (BMI) 26.3 Intake & Output: Intake and Output for Last 24 Hours 11/04/21 11/05/21 11/06/21 23:59 23:59 23:59 Intake Total 793.20 / 793.20 2229.5 / 2229.5 970 / 970 Output Total 200 / 200 150 / 150 Balance 593.20 / 593.20 2229.5 / 2229.5 820 / 820 Lab / Micro Data Result Diagrams: 11/05/21 00:40 11/05/21 00:40 Labs: Laboratory Results - last 24 hr 11/05/21 08:52: POC Glucose 175 H 11/05/21 12:00: POC Glucose 174 H 11/05/21 16:19: POC Glucose 117 H 11/05/21 22:36: POC Glucose 212 H 11/06/21 06:05: POC Glucose 202 H Micro: Microbiology 11/03/21 10:50 Blood Culture (Wb) - Arm Right Blood Culture - Preliminary No growth in 48 hours. 11/03/21 09:10 Blood Culture (Wb) - Anticubital Left Blood Culture - Preliminary No growth in 48 hours. 11/03/21 14:00 Wound - Leg, Left Gram Stain - Final 11/03/21 14:00 Wound - Leg, Left Wound Culture - Final Serratia marcescens 11/03/21 11:25 Urine, Clean Catch Urine Culture - Final Mixed Gram Pos & Gram Neg Org 11/03/21 08:20 Nasal Secretion SARS-CoV-2 Antigen (Rapid) - Final Rhythm Strip Rhythm Strip: A-fib Rate: 155 Ectopy: None Physical Exam Narrative GENERAL: cooperative HEENT: Atraumatic; EYES; Anicteric, Normal Conjunctiva NECK; supple, normal thyroid, RESPIRATORY: Diminished to auscultation CARDIOVASCULAR: Regular S1 S2, GI: soft, normoactive bowel sounds, : No Renal angle tenderness; EXTREMITIES: Trace bipedal edema, no clubbing, MUSCULOSKELETAL: Right great toe amputation NEURO: Awake; no lateralizing signs. SKIN: Bilateral lower extremity erythema PSYCH; Flat affect Assessment & Plan Assessment/Plan (1) Cellulitis of leg: PLAN: Plan 76-year-old male admitted for worsening bilateral lower extremity swelling and redness over a months duration 1. Bilateral lower extremity cellulitis with Serratia marcescens ? Patient initially managed with vancomycin and Zosyn. Both medications discontinued in view of worsening kidney function and patient MRSA screen being negative. Subsequently started on Rocephin 2. Acute kidney injury ? Superimposed on chronic kidney disease stage III. Patient creatinine on admission was 1.46 worsened to 1.83-day prior and is up to 2.38 as of 11/05/2021. Patient diuretics held. Also discontinued vancomycin and Zosyn started on IV fluid with subsequent monitoring of electrolytes ordered ? 11/06/2021; awaiting patient labs 3. Coronary artery disease ? With previous CABG and subsequent stent placement 4. Chronic congestive heart failure with reduced ejection fraction ? Echo obtained in August 2018 demonstrated EF of 35%. Patient diuretics held in view of impaired kidney function 5. Ischemic cardiomyopathy ? Status post AICD placement 6. Peripheral arterial disease ? Per history. Patient is on antiplatelet therapy with aspirin 7. Paroxysmal A. fib ? Patient has had occasional A. fib with RVR with rates being currently well controlled. On systemic anticoagulation with slightly elevated INR of 3.2 8. Hypertension - Blood pressure controlled, home medications continued with dose adjustment as needed 9. Dyslipidemia -Patient is on statin therapy, continued at home dose 10. Diabetes mellitus type II -on long acting insulin, Accu-Cheks a.c. and at bedtime and covered with sliding scale insulin 11. Obstructive sleep apnea ? On CPAP at night 12. DVT prophylaxis ? On warfarin 11. Physical deconditioning - Requested for PT OT eval and secondary social studies teacher to assist with discharge planning Charges/Coding Visit Charges Inpatient E&M: 47309 Subs Hosp L2
[2021-11-06 07:38] VITALS: O2SAT 96
[2021-11-06 09:00] LABS: Absolute Lymphocyte Count 0.33 X10^3/uL (0.83-4.51); Absolute Neutrophil Count 13.4 X10^3/uL (2.0-7.7); Basophil# 0.02 X10^3/uL; Basophil% 0.1 % (0-1); Eosinophil# 0.15 X10^3/uL; Hematocrit 33.7 % (40-54); Lymphocyte # 0.33 X10^3/ul (0.83-4.51); Lymphocyte % 2.2 % (19-41); Mean Corp Hgb Conc 32.6 g/dL (32-36); Mean Corpuscular Hgb 31.3 pg (27.0-32.0); Mean Platelet Vol. 10.8 fl (6.2-12.0); Monocyte# 0.65 X10^3/uL; Monocyte% 4.4 % (0-10); NRBC Flagged by Analyzer 0 % (0-5); Neutrophil # 13.43 X10^3/uL (2.7-7.7); Neutrophil % 91.3 % (47-70); POSITIVE DIFFERENTIAL YES; Platelet Count 150 K/mm3 (150-450); RBC Distribution Width CV 14.3 % (11.6-14.6); RBC Distribution Width SD 50.4 fl (35.1-43.9); Red Blood Count 3.51 M/mm3 (4.6-6.2); White Blood Count 14.7 K/mm3 (4.4-11.0)
[2021-11-06 09:02] LABS: Differential Indicated SCAN CRITERIA MET
[2021-11-06 09:12] LABS: International Normalized Ratio 3.7; Prothrombin Time (Protime)PT. 36.6 SECONDS (11.7-14.9)
[2021-11-06 09:13] VITALS: BP 117/61; PULSE 77; RESP 18; TEMP 36.6; O2SAT 99
[2021-11-06 09:15] LABS: Anion Gap 5 (5-15); BUN 70 mg/dL (7-18); BUN/Creat Ratio 35.2 RATIO (10-20); Calcium,Total 8.5 mg/dL (8.5-10.1); Chloride 106 mmol/L (98-107); Creatinine, Serum 1.99 mg/dL (0.70-1.30); EST Glomerular Filtration Rate 35 mL/min (>60); Est Glom Filt Rate - Afr Amer 42 mL/min (>60); Estimated Creatinine Clearance 30.55 ml/min; Glucose 156 mg/dL (74-106); Potassium 5.2 mmol/L (3.5-5.1); Sodium Level 135 mmol/L (136-145)
[2021-11-06 09:18] VITALS: PULSE 77
[2021-11-06] MEDS: Metoprolol(XL)Succ 100 MG Tablet PO (09:18)
[2021-11-06] MEDS: Insulin Glargine-YFGN 100 UNIT/ML Pen 20 UNIT SC (09:18)
[2021-11-06] MEDS: Juven (unflavored) Packet 1 PACKET PO (09:18)
[2021-11-06] MEDS: Pantoprazole Sodium 20 MG Tablet PO (09:18)
[2021-11-06] MEDS: Aspirin E.C. 81 MG Tablet PO (09:18)
--- NOTE | 2021-11-06 11:59 | DS.PCM_ITS ---
Providers Date of Admission: 11/03/21 Date of Discharge: 11/06/21 Primary Care Physician: Dr. Pedro Luis Shin MD Consultations 11/03/21 13:57 Consult: Infectious Disease Routine Consulting Provider: Yoel Arevalo Reason for Consult: B/L recurrent cellulitis since 10/02, multiple antibiotics EMERGENT Consult: No MD Notified: Yes Date Notified: 11/03/21 Time Notified: 13:00 Method of Notification: Verbal Consult: Onc/Wound/heat plant specialist Routine Comment: Reason for Consult:: B/L legs pus points and seepage, Left worse Reason For Visit: B/L RECURRENT CELLULITIS Diagnosis Discharge Diagnosis (1) Cellulitis of leg: Status: Acute Code(s): L03.119 - Cellulitis of unspecified part of limb Medications at Discharge Home Medications aspirin 81 mg tablet,delayed release 81 mg PO DAILY heart health 09/19/18 Handicap Placard #1 ea 08/28/19 metoprolol succinate 100 mg tablet,extended release 24 hr 100 mg PO BID #180 tabs 11/21/20 losartan 25 mg tablet 25 mg PO DAILY #90 tabs 04/03/21 atorvastatin 80 mg tablet 80 mg PO QHS #90 tabs 05/23/21 Novolin N Flexpen 5 units QHS diabetes 11/03/21 Novolin N Flexpen 12 units DAILY daily 11/03/21 mupirocin 2 % topical ointment 1 applic topical TID 11/03/21 omeprazole 20 mg capsule,delayed release 20 mg PO DAILY acid reflux 11/03/21 cefdinir 300 mg capsule 300 mg PO Q12H #10 caps 11/06/21 furosemide 40 mg tablet 40 mg PO DAILY #180 tabs 11/06/21 potassium chloride 20 mEq tablet,extended release 20 meq PO DAILY #180 tabs 11/06/21 warfarin 2 mg tablet (Jantoven) 2 mg PO DINNER #0 tabs 11/06/21 Hospital Course Summary of Care Provided Minutes Spent on Discharge: 35 Hospital Course: 76-year-old male admitted for worsening bilateral lower extremity swelling and redness over a months duration 1. Bilateral lower extremity cellulitis with Serratia marcescens ? Patient initially managed with vancomycin and Zosyn. Both medications discontinued in view of worsening kidney function and patient MRSA screen being negative. Subsequently started on Rocephin ? 11/06/2021 patient was discharged on cefdinir 300 mg p.o. twice daily for 5 days 2. Acute kidney injury ? Superimposed on chronic kidney disease stage III. Patient creatinine on admission was 1.46 worsened to 1.83-day prior and is up to 2.38 as of 11/05/2021. Patient diuretics held. Also discontinued vancomycin and Zosyn started on IV fluid with subsequent monitoring of electrolytes ordered ? 11/06/2021; patient kidney function did improve with rehydration. Adjusted home medications including decreasing Lasix dose from 40 p.o. twice daily to 40 daily .. Mild hypokalemia ? Patient was on huge potassium supplementation 80 mg daily this was decreased to 20 mg daily on discharge. Patient to follow-up with primary care physician within 2 to 3 days for repeat BMP for subsequent adjustment of medications if need be 3. Coronary artery disease ? With previous CABG and subsequent stent placement 4. Chronic congestive heart failure with reduced ejection fraction ? Echo obtained in August 2018 demonstrated EF of 35%. Patient diuretics held in view of impaired kidney function 5. Ischemic cardiomyopathy ? Status post AICD placement 6. Peripheral arterial disease ? Per history. Patient is on antiplatelet therapy with aspirin 7. Paroxysmal A. fib ? Patient has had occasional A. fib with RVR with rates being currently well controlled. On systemic anticoagulation with slightly elevated INR of 3.2 ? 11/06/2021; adjusted dose of Coumadin on discharge due to elevated INR. Patient was on 4 mg daily this was decreased to 2 mg daily which he had been on during his hospital stay plan is for patient to follow-up with primary care physician within 2 to 3 days for repeat INR 8. Hypertension - Blood pressure controlled, home medications continued with dose adjustment as needed 9. Dyslipidemia -Patient is on statin therapy, continued at home dose 10. Diabetes mellitus type II -on long acting insulin, Accu-Cheks a.c. and at bedtime and covered with sliding scale insulin 11. Obstructive sleep apnea ? On CPAP at night 12. DVT prophylaxis ? On warfarin 11. Physical deconditioning - Requested for PT OT eval and social studies department chair to assist with discharge planning ? 11/06/2021 patient apparently declined to work with therapy Physical Exam Narrative GENERAL: cooperative HEENT: Atraumatic; EYES; Anicteric, Normal Conjunctiva NECK; supple, normal thyroid, RESPIRATORY: Diminished to auscultation CARDIOVASCULAR: Regular S1 S2, GI: soft, normoactive bowel sounds, : No Renal angle tenderness; EXTREMITIES: Trace bipedal edema, no clubbing, MUSCULOSKELETAL: Right great toe amputation NEURO: Awake; no lateralizing signs. SKIN: Bilateral lower extremity erythema PSYCH; Flat affect Weight / BMI Weight Weight: 78.4 kg Body Mass Index (BMI) 26.3 ABG / Lab / Microbiology Data Result Diagrams: 11/06/21 08:40 11/06/21 08:40 Laboratory: Laboratory Results - last 24 hr 11/05/21 12:00: POC Glucose 174 H 11/05/21 16:19: POC Glucose 117 H 11/05/21 22:36: POC Glucose 212 H 11/06/21 06:05: POC Glucose 202 H 11/06/21 08:40: PT 36.6 H, INR 3.7 11/06/21 08:40: WBC 14.7 H, RBC 3.51 L, Hgb 11.0 L, Hct 33.7 L, MCV 96.0 H, MCH 31.3, MCHC 32.6, RDW Std Deviation 50.4 H, RDW Coeff of Nguyen 14.3, Plt Count 150, MPV 10.8, Immature Gran % (Auto) 1.000 H, Neut % (Auto) 91.3 H, Lymph % (Auto) 2.2 L, [place] % (Auto) 4.4, Eos % (Auto) 1.0, Baso % (Auto) 0.1, Absolute Neuts (auto) 13.4 H, Absolute Lymphs (auto) 0.33 L, Nucleated RBC % 0, Differential Comment COMMENT 11/06/21 08:40: Sodium 135 L, Potassium 5.2 H, Chloride 106, Carbon Dioxide 24.0, Anion Gap 5, BUN 70 H, Creatinine 1.99 H, Estim Creat Clear Calc 30.55, Est GFR (MDRD) Af Amer 42 L, Est GFR (MDRD) Non-Af 35 L, BUN/Creatinine Ratio 35.2 H, Glucose 156 H, Calcium 8.5 Microbiology: Microbiology 11/03/21 10:50 Blood Culture (Wb) - Arm Right Blood Culture - Preliminary No growth in 48 hours. 11/03/21 09:10 Blood Culture (Wb) - Anticubital Left Blood Culture - Preliminary No growth in 48 hours. 11/03/21 14:00 Wound - Leg, Left Gram Stain - Final 11/03/21 14:00 Wound - Leg, Left Wound Culture - Final Serratia marcescens 11/03/21 11:25 Urine, Clean Catch Urine Culture - Final Mixed Gram Pos & Gram Neg Org 11/03/21 08:20 Nasal Secretion SARS-CoV-2 Antigen (Rapid) - Final D/C Instructions Discharge Diet: No restrictions Discharge Activity: Return to Normal Activity Call your doctor if you observe: Fever of 101 or Higher, Shortness of breath, Fainting spells and Chest pain Meaningful Use Info Meaningful Use Diagnoses (Choose all that apply): None applicable Discharge Plan Admission Admit Date/Time: 11/03/21 12:33 Attending Provider: Rishabh Klein Primary Care Provider: Pedro Luis Shin Consulting Providers: Yoel Arevalo ; Juan Diego Medrano Discharge Orders/Prescriptions Prescriptions: New warfarin [Jantoven] 2 mg Tablet 2 mg PO DINNER Qty: 0 0RF cefdinir 300 mg capsule 300 mg PO Q12H Qty: 10 0RF Continued atorvastatin 80 mg tablet 80 mg PO QHS Qty: 90 3RF aspirin 81 MG tablet,delayed release (DR/EC) 81 mg PO DAILY mupirocin 2 % Ointment 1 applic TOPICAL TID Novolin N Flexpen 5 units QHS Novolin N Flexpen 12 units DAILY omeprazole 20 mg capsule,delayed release(DR/EC) 20 mg PO DAILY Label Comments: TAKE 1 CAPSULE BY MOUTH ONCE DAILY 30 MINUTES BEFORE BREAKFAST (DME) Handicap Placard Qty: 1 0RF Rx Instructions: As directed; Good from 08/03/19 - 08/02/24 metoprolol succinate 100 mg tablet extended release 24 hr 100 mg PO BID Qty: 180 6RF losartan 25 mg tablet 25 mg PO DAILY Qty: 90 3RF Changed furosemide 40 mg tablet 40 mg PO DAILY Qty: 180 3RF potassium chloride 20 mEq tablet extended release 20 meq PO DAILY Qty: 180 3RF Discontinued clindamycin HCl 300 mg Capsule 300 mg PO TID warfarin 4 mg tablet See Rx Instructions .ROUTE .COMPLEX Protocol: Dose Management Condition: Saturday Dose/Route: 2 mg Instruction: 0.5 x 4 mg tablets Condition: Saturday Dose/Route: 4 mg Instruction: 1 x 4 mg tablet Condition: Saturday Dose/Route: 4 mg Instruction: 1 x 4 mg tablet Condition: Saturday Dose/Route: 4 mg Instruction: 1 x 4 mg tablet Condition: Dose/Route: 4 mg Instruction: 1 x 4 mg tablet Condition: Saturday Dose/Route: 4 mg Instruction: 1 x 4 mg tablet Condition: Saturday Dose/Route: 4 mg Instruction: 1 x 4 mg tablet Protocol Text: Adjustment Start Date: Saturday10/04/21 INR Value: 2.7 INR Date: 10/04/21 Recheck Date: 11/01/21 Rx Instructions: 2 mg orally SA, TORRES 4mg PO MO, TU, WE, TH, FR Referrals / Follow Up: Pedro Luis Shin MD [Primary Care Provider] - 11/08/21 10:00 am (In 2 to 3 days days for repeat BMP and PT and INR) Disposition Disposition (needs filled in before D/C Order can be placed): Home, Self Care Charges/Coding Visit Charges Inpatient E&M: 43691 Disch Hosp
[2021-11-06 13:11] LABS: Bedside Glucose 137 mg/dL (74-106)
[2021-11-06 13:19] VITALS: O2SAT 89; O2SAT 92
[2021-11-06 13:22] VITALS: BP 135/91; PULSE 93; RESP 18; TEMP 36.6; O2SAT 93
--- NOTE | 2021-11-06 13:52 | CHAPLAIN ---
Type of Pastoral Visit _x__ Initial Visit ___ Follow-up Visit ___ On-call Visit ___ General Patient Visit ___ Spiritual Assessment ___ Family Conference ___ Bereavement ___ Rapid Response ___ Code Blue ___ Other (describe below) Pastoral Care Referral From _x__ Patient ___ Family ___ Nurse ___ Physician ___ Family Lawyer ___ Armature Winder Repair Helper ___ Other (describe below) Sacrament/Intervention _x__ Active listening ___ Anointing ___ Sikhism ___ Bereavement ___ Communion ___ [place] exploration ___ ___ Life review ___ Prayer ___ Reconciliation ___ Sacrament of Sick ___ Supportive presence ___ Wedding ___ Other (describe below) Pastoral Comments patient is eating lunch and denies any needs at this time; spouse is at bedside eating lunch also; pt says that he is being discharged and that his condition is improved;
== END 2021-11-06 13:40 | disposition home or self-care (01) | DRG 603 ==
LOC: ED 12:43 → MS3 12:58
PROVIDERS: Admitting Provider Internal Medicine; Emergency Provider Emergency Medicine; PCP Family Medicine; Visit Provider Internal Medicine
DX: L03.115 Cellulitis of right lower limb (principal); I13.0 Hypertensive heart and chronic kidney disease with heart failure and stage 1 through stage 4 chronic kidney disease, or unspecified chronic kidney disease; N17.9 Acute kidney failure, unspecified; I47.2 Ventricular tachycardia; I50.22 Chronic systolic (congestive) heart failure; N18.4 Chronic kidney disease, stage 4 (severe); L97.911 Non-pressure chronic ulcer of unspecified part of right lower leg limited to breakdown of skin; L97.929 Non-pressure chronic ulcer of unspecified part of left lower leg with unspecified severity; I25.810 Atherosclerosis of coronary artery bypass graft(s) without angina pectoris; E11.622 Type 2 diabetes mellitus with other skin ulcer; E11.51 Type 2 diabetes mellitus with diabetic peripheral angiopathy without gangrene; E11.22 Type 2 diabetes mellitus with diabetic chronic kidney disease; I48.0 Paroxysmal atrial fibrillation; Z79.4 Long term (current) use of insulin; Z89.411 Acquired absence of right great toe; Z89.422 Acquired absence of other left toe(s); E87.5 Hyperkalemia; E78.5 Hyperlipidemia, unspecified; K52.9 Noninfective gastroenteritis and colitis, unspecified; I35.0 Nonrheumatic aortic (valve) stenosis; I25.5 Ischemic cardiomyopathy; G47.33 Obstructive sleep apnea (adult) (pediatric); E87.6 Hypokalemia; I25.2 Old myocardial infarction; L03.116 Cellulitis of left lower limb; R79.1 Abnormal coagulation profile; Z20.822 Contact with and (suspected) exposure to COVID-19; Z79.01 Long term (current) use of 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s; Z79.82 Long term (current) use of aspirin; Z79.899 Other long term (current) drug therapy; Z95.810 Presence of automatic (implantable) cardiac defibrillator; Z95.5 Presence of coronary angioplasty implant and graft; Z95.1 Presence of aortocoronary bypass graft
CPT/HCPCS: 36415; 71045; 73620; 80048; 80053; 80202; 81001; 82550; 82962; 83036; 83605; 83735; 84100; 84484; 85025; 85610; 85730; 87040; 87070; 87077; 87086; 87088; 87186; 87205; 87640; 87811; 93005; 97802; 99251; 99285; J7030; J7050; A4216; G0463; J0295

== ENCOUNTER → 2021-11-14 | Outpatient (CLI) | payer MEDICARE, OTHER, SELFPAY ==
[2021-11-14 17:04] LABS: Absolute Lymphocyte Count 0.56 X10^3/uL (0.83-4.51); Absolute Neutrophil Count 9.5 X10^3/uL (2.0-7.7); Basophil# 0.04 X10^3/uL; Basophil% 0.4 % (0-1); Eosinophils% 0.9 % (0-5); Hematocrit 37.6 % (40-54); Hemoglobin 12.5 g/dL (13.0-16.5); Lymphocyte # 0.56 X10^3/ul (0.83-4.51); Lymphocyte % 5.2 % (19-41); Mean Corp Hgb Conc 33.2 g/dL (32-36); Mean Corpuscular Hgb 31.6 pg (27.0-32.0); Mean Corpuscular Volume 94.9 fL (80-94); Mean Platelet Vol. 10.4 fl (6.2-12.0); Monocyte# 0.52 X10^3/uL; Monocyte% 4.8 % (0-10); NRBC Flagged by Analyzer 0 % (0-5); Neutrophil # 9.51 X10^3/uL (2.7-7.7); Neutrophil % 87.8 % (47-70); POSITIVE DIFFERENTIAL YES; Platelet Count 229 K/mm3 (150-450); RBC Distribution Width SD 48.6 fl (35.1-43.9); Red Blood Count 3.96 M/mm3 (4.6-6.2); White Blood Count 10.8 K/mm3 (4.4-11.0)
[2021-11-14 17:15] LABS: International Normalized Ratio 1.4; Prothrombin Time (Protime)PT. 16.6 SECONDS (11.7-14.9)
[2021-11-14 17:44] LABS: Anion Gap 3 (5-15); BUN 17 mg/dL (7-18); BUN/Creat Ratio 14.4 RATIO (10-20); Calcium,Total 9.3 mg/dL (8.5-10.1); Chloride 108 mmol/L (98-107); Creatinine, Serum 1.18 mg/dL (0.70-1.30); EST Glomerular Filtration Rate 64 mL/min (>60); Est Glom Filt Rate - Afr Amer 77 mL/min (>60); Glucose 243 mg/dL (74-106); Magnesium 1.9 mg/dL (1.6-2.6); Potassium 4.2 mmol/L (3.5-5.1); Sodium Level 141 mmol/L (136-145)
[2021-11-14 17:48] LABS: BNP,B-Type NATRIURETIC PEPTIDE 556.5 pg/mL (0-100)
[2021-11-14 17:56] LABS: Differential Comment SCANNED; Differential Indicated SCAN CRITERIA MET
== END | disposition home or self-care (01) ==
LOC: LAB 16:46
PROVIDERS: Internal Medicine Cardiovascular Disease; Nurse Practitioner Gerontology; PCP Family Medicine; Visit Provider Physician Assistant Medical
DX: I50.23 Acute on chronic systolic (congestive) heart failure (principal); I48.0 Paroxysmal atrial fibrillation; I48.92 Unspecified atrial flutter; R06.09 Other forms of dyspnea; Z79.01 Long term (current) use of 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s
CPT/HCPCS: 36415; 80048; 83735; 83880; 85025; 85610

== ENCOUNTER 2021-11-16 09:15 | Outpatient (RCR) | payer MEDICARE, OTHER, SELFPAY ==
[2021-11-09 08:27] VITALS: BP 158/88; PULSE 78; RESP 20; TEMP 36.3
[2021-11-09 08:41] VITALS: BP 158/78; PULSE 78; RESP 18; TEMP 36.3
--- NOTE | 2021-11-09 08:52 | WC ---
Pt here for initital visit. Stated has another appt within the hour. Assessment rushed, unableto obtain complete information for new appt. Pedro and Dr. younger.
--- NOTE | 2021-11-09 09:15 | PCM.WC.HP ---
History of Present Illness Date of Service: 11/09/21 Chief Complaint: Bilateral lower extremity ulcer History of Wound: Mr. Brandt is a 76-year-old who presents to the wound center due to non healing bilateral lower extremity ulcerations. He states that it started out as significant bilateral lower extremity swelling on the 10 of September. He sat for 4 straight hours mowing his lawn. Woke up the next day with significant lower extremity swelling. Currently on Lasix which he states that he has been taking. Bought some compression stockings but could not use it because it was too tight. He is mostly sedentary. History of diabetes mellitus type 2, he reports good control. Does not have as much feeling in his lower extremities. He presented to the hospital almost a week ago due to worsening bilateral lower extremity pain, redness, chills and feeling of unwell. Managed for cellulitis. Discharged on antibiotics. Feels better today. Still a lot of drainage and lower extremity swelling. [facility] Medical History (Updated 11/09/21 @ 10:[address] Malik Bryson MD) Acute on chronic systolic (congestive) heart failure Alcohol abuse Atherosclerosis of coronary artery bypass graft without angina pectoris Atrial fibrillation Bilateral lower extremity edema CAD (coronary artery disease) Cardiac dysrhythmia Cardiomyopathy Chronic systolic congestive heart failure Chronic ulcer of toe of left foot with fat layer exposed Congestive heart failure Elevated troponin Essential (primary) hypertension GERD (gastroesophageal reflux disease) Heavy alcohol use HLD (hyperlipidemia) Implantable cardioverter-defibrillator (ICD) at end of battery life Ischemic cardiomyopathy [facility] 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 current use of 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 Non-rheumatic tricuspid valve insufficiency NSTEMI (non-ST elevated myocardial infarction) 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 RITESH (obstructive sleep apnea) Paroxysmal atrial fibrillation Paroxysmal atrial fibrillation with rapid ventricular response Paroxysmal atrial flutter Peripheral vascular disease Pleural effusion Secondary pulmonary arterial hypertension Skin ulcer of left great toe with fat layer exposed Sleep apnea Type 2 diabetes mellitus Type 2 diabetes mellitus Ulcer of left lower extremity with fat layer exposed Ulcer of right foot with fat layer exposed Ulcer of right lower extremity with fat layer exposed Ventricular tachycardia Home Medications aspirin 81 mg tablet,delayed release 81 mg PO DAILY heart health 09/19/18 [History Last Taken 11/02/21] Handicap Placard #1 ea 08/28/19 [Rx Last Taken Unknown] metoprolol succinate 100 mg tablet,extended release 24 hr 100 mg PO BID #180 tabs 11/21/20 [Rx Last Taken 11/02/21] losartan 25 mg tablet 25 mg PO DAILY #90 tabs 04/03/21 [Rx Last Taken 11/02/21] atorvastatin 80 mg tablet 80 mg PO QHS #90 tabs 05/23/21 [Rx Last Taken 11/02/21] Novolin N Flexpen 5 units QHS diabetes 11/03/21 [History Last Taken Unknown] Novolin N Flexpen 12 units DAILY daily 11/03/21 [History Last Taken 11/03/21] mupirocin 2 % topical ointment 1 applic topical TID 11/03/21 [History Last Taken Unknown] omeprazole 20 mg capsule,delayed release 20 mg PO DAILY acid reflux 11/03/21 [History Last Taken 11/01/21] cefdinir 300 mg capsule 300 mg PO Q12H #10 caps 11/06/21 [Rx Last Taken Unknown] furosemide 40 mg tablet 40 mg PO DAILY #180 tabs 11/06/21 [Rx Last Taken 11/02/21] potassium chloride 20 mEq tablet,extended release 20 meq PO DAILY #180 tabs 11/06/21 [Rx Last Taken 11/02/21] warfarin 2 mg tablet (Jantoven) 2 mg PO DINNER #0 tabs 11/06/21 [Rx Last Taken Unknown] Allergy/AdvReac Type Severity Reaction Status Date / Time amiodarone AdvReac Shortness Verified 11/03/21 07:35 of breath lisinopril AdvReac cough Verified 11/03/21 14:16 Surgical History H/O coronary artery bypass surgery (1997) History of coronary artery stent placement (01/2016) History of implantable cardiac defibrillator (ICD) (02/11/20) History of thoracentesis Hx of CABG S/P PTCA (percutaneous transluminal coronary angioplasty) Social History Smoking Status: Never smoker alcohol intake: current alcohol intake frequency: a few times a week Alcohol type: beer substance use type: does not use caffeine: Yes Type: coffee Number of servings: 2 what type of physical activity do you participate in: none seatbelt use: never do you feel safe at home: Yes ROS Constitutional Constitutional: Denies anorexia, change in weight, chills, fatigue, headache(s), increased appetite, lethargy, malaise or night sweats Eyes Eyes: Denies change in eye color, change in vision, dry eyes, erythema, exophthalmos, eye pain, itchy eyes or loss of central vision ENT HEENT: Denies dry mouth, dysphagia, ear pain, facial pain, foreign body in nose, halitosis, mouth lesions, mouth pain or mucositis Cardiovascular Cardiovascular: Denies abdominal pain, bluish discoloration of hand/feet, chest pain at rest, clubbing, cold extremities, cyanosis or flutter in chest Respiratory/Chest Respiratory/Chest: Denies difficulty clearing secretions, dusky skin, dyspnea, excessive phlegm production, hemoptysis, hoarseness, inability to speak or mouth breathing Gastrointestinal Gastrointestinal: Denies belching, bloating, change in bowel habits, chewing difficulty, dry heaves, dyspepsia or excessive flatus Genitourinary Genitourinary: Denies abdominal discomfort, difficulty urinating, flank pain, penile discharge, penile swelling, testicular mass or testicular swelling Musculoskeletal Musculoskeletal: Denies atrophy, deformity, loss of height, muscle cramps, muscle spasms or muscle weakness Integumentary Integumentary: Denies erythema, furuncle, hirsutism, jaundice, lesions, nail changes, new lesions or photosensitivity Neurologic Neurologic: Denies behavior changes, burning sensations, convulsions, disequilibrium, dizziness, focal weakness, frequent falls or headache(s) Psychiatric Psychiatric: Denies anhedonia, anxiety, behavioral changes, change in appetite, cognitive impairment, depression, difficulty concentrating or hallucinations Endocrine Endocrinology: Denies flushing, heat intolerance, increase in ring/shoe/hat size, polydipsia, polyphagia or polyuria Hematologic/Lymphatic Hematologic/Lymphatic: Reports easy bleeding and easy bruising; Denies lymphadenopathy Allergic/Immunologic Allergic/Immunologic: Denies itchy eyes, lip swelling, seasonal rhinorrhea, rhinitis, throat swelling, tongue swelling, eczemia or wheezing Vital Signs Vital Signs Vital Signs: 11/09/21 08:27 11/09/21 08:41 Temperature 97.3 F L 97.4 F L Temperature Source Temporal Temporal Pulse Rate 78 78 Respiratory Rate 20 H 18 Blood Pressure 158/88 H 158/78 H Blood Pressure Mean 111 104 Blood Pressure Source Monitor Physical Exam Const alert, oriented x3 and no apparent distress General Appearance: cooperative, comfortable and well developed Orientation / Consciousness: awake HEENT normocephalic, head/scalp atraumatic and hearing grossly normal bilaterally Eyes General Eye: normal appearance of both eyes Neck full ROM and supple General: normal visual inspection Resp normal respiratory effort Effort and Inspection: able to speak in complete sentences Testes: Negative for testicular swelling or testicular mass Extremity full ROM General Extremity: edema Skin Wounds: wounds noted Neuro oriented x3, CN's II-XII intact bilaterally, moves all extremities and no focal motor deficits Psych mental status grossly normal Appearance: grossly normal Attitude: calm Activity / Motor Behavior: appropriate eye contact Debridement Note Debridement Note Wound debrided: Left medial cluster Type of Debridement: Excisional debridement Anesthesia Used: 4% Lidocaine Solution Depth: Down to and including healthy tissue and in the subcutaneous layer Percentage of wound debrided: 100 Instrument Used: 5mm curette Tissue Removed: Slough and devitalized tissue Severity: Fat Layer Exposed Amount of bleeding with debridement: Mild Bleeding Controlled with: Pressure Patient tolerated procedure: Patient tolerated procedure well Post-Debridement Measurements and Additional Note: Post-Debridement Measurements/Treatment - Nurse 1 - General Ulcer Assessment Start: 11/09/21 08:01 Freq: Status: Active Protocol: CHAPARRITA Activity Type Activity Date Activity User E-sign Co-sign Detail Recorded Client Recorded Date Recorded By Document 11/09/21 08:27 DL [id number] 11/09/21 08:37 DL Document 11/09/21 08:41 DL [id number] 11/09/21 08:52 DL 11/09/21 11/09/21 08:27 08:41 - Today's Visit Information Type of service Initial Visit Initial Visit Arrival Mode Ambulatory, Ambulatory, Wheelchair Wheelchair Transfer Assistance Manual Manual Transfer Assist (Other) x1 x1 Patient Identification Verified (Name & Yes Yes ) Patient Requires Transmission-Based No No Precautions Vital Signs Temperature (97.8 F-99.1 F) 97.3 F L 97.4 F L Temperature Source Temporal Temporal Pulse Rate (60-100) 78 78 Pulse Location Monitor Monitor Respiratory Rate (12-18) 20 H 18 Respiratory rate source Observation Observation Blood Pressure (90/60-120/80) 158/88 H 158/78 H Blood Pressure Mean 111 104 Source Monitor History Since Last Visit- (Skip if this is Patient's initial visit) Left Footwear Slipper Slipper Right Footwear Slipper Slipper Pain Scale: 0-10 Numeric Is Patient Pain Free? Yes Yes WC - Nurse 1 - General Ulcer Measurement Start: 11/09/21 08:01 Freq: Status: Active Protocol: Activity Type Activity Date Activity User E-sign Co-sign Detail Recorded Client Recorded Date Recorded By Document 11/09/21 08:27 DL [id number] 11/09/21 08:37 DL Document 11/09/21 08:41 DL [id number] 11/09/21 08:52 DL 11/09/21 11/09/21 08:27 08:41 Wound Center Nurse 1 #7 R Inf. LE -Current Size (cm) - Length 1.8 -Current Size (cm) - Width 1.1 -Current Size (cm) - Depth 0.1 -Total Square Cm 1.98 -Photo Taken Yes -Classification - Thickness Full Thickness without Exposed Support Structure -Exudate Amt Medium -Exudate Type Serosanguineous -Wound Margin Distinct, Outline Attached -Granulation Amt None Present (0 %) -Necrosis Amt Medium (34-66%) -Necrotic Tissue Type Adherent Slough -Structure Exposed N/A -Texture (Ana-wound Skin Appearance) Localized Edema ,Scarring -Color (Ana-wound Skin Appearance) Hemosiderin Staining -Temperature (Ana-wound Skin No Abnormality Appearance) (Pt Warm) -Tenderness on Palpation (Ana-wound No Skin Appearance) -Ulcer Cleansing Soap and Water -Foul Odor after Cleansing No -Anesthetic Used 4% Lidocaine Solution #6 R Sup LE -Current Size (cm) - Length 2.9 -Current Size (cm) - Width 4.1 -Current Size (cm) - Depth 0.1 -Total Square Cm 11.89 -Photo Taken Yes -Classification - Thickness Full Thickness without Exposed Support Structure -Exudate Amt Medium -Exudate Type Serosanguineous -Wound Margin Distinct, Outline Attached -Granulation Amt None Present (0 %) -Necrosis Amt Large (67-100%) -Necrotic Tissue Type Adherent Slough -Structure Exposed N/A -Texture (Ana-wound Skin Appearance) Localized Edema ,Scarring -Moisture (Ana-wound Skin Appearance) Maceration -Color (Ana-wound Skin Appearance) Hemosiderin Staining -Temperature (Ana-wound Skin No Abnormality Appearance) (Pt Warm) -Tenderness on Palpation (Ana-wound No Skin Appearance) -Ulcer Cleansing Soap and Water -Foul Odor after Cleansing No -Anesthetic Used 4% Lidocaine Solution #5 R Dorsal -Current Size (cm) - Length 1.3 -Current Size (cm) - Width 1.4 -Current Size (cm) - Depth 0.2 -Total Square Cm 1.82 -Photo Taken Yes -Exudate Amt Medium -Wound Margin Distinct, Outline Attached -Granulation Amt None Present (0 %) -Necrosis Amt Large (67-100%) -Necrotic Tissue Type Adherent Slough -Structure Exposed N/A -Texture (Ana-wound Skin Appearance) Localized Edema -Moisture (Ana-wound Skin Appearance) Maceration, Weeping -Color (Ana-wound Skin Appearance) No Abnormality -Temperature (Ana-wound Skin No Abnormality Appearance) (Pt Warm) -Tenderness on Palpation (Ana-wound No Skin Appearance) -Ulcer Cleansing Soap and Water -Foul Odor after Cleansing No -Anesthetic Used 4% Lidocaine Solution #4 L Med Cluster -Current Size (cm) - Length 12.8 -Current Size (cm) - Width 2.7 -Current Size (cm) - Depth 0.1 -Total Square Cm 34.56 -Photo Taken Yes -Classification - Thickness Full Thickness without Exposed Support Structure -Exudate Amt Medium -Exudate Type Serosanguineous -Wound Margin Distinct, Outline Attached -Granulation Amt None Present (0 %) -Necrosis Amt Large (67-100%) -Necrotic Tissue Type Adherent Slough -Structure Exposed N/A -Texture (Ana-wound Skin Appearance) Localized Edema ,Scarring -Moisture (Ana-wound Skin Appearance) Weeping -Color (Ana-wound Skin Appearance) Hemosiderin Staining -Temperature (Ana-wound Skin No Abnormality Appearance) (Pt Warm) -Ulcer Cleansing Soap and Water -Foul Odor after Cleansing No -Anesthetic Used 4% Lidocaine Solution #3 L Lat heel -Current Size (cm) - Length 0.4 -Current Size (cm) - Width 0.3 -Current Size (cm) - Depth 0.1 -Total Square Cm 0.12 -Photo Taken Yes -Classification - Thickness Full Thickness without Exposed Support Structure -Exudate Amt Medium -Exudate Type Serosanguineous -Wound Margin Distinct, Outline Attached -Granulation Amt None Present (0 %) -Necrosis Amt Large (67-100%) -Necrotic Tissue Type Adherent Slough -Structure Exposed N/A -Texture (Ana-wound Skin Appearance) Localized Edema ,Scarring -Moisture (Ana-wound Skin Appearance) Maceration, Weeping -Color (Ana-wound Skin Appearance) Hemosiderin Staining -Temperature (Ana-wound Skin No Abnormality Appearance) (Pt Warm) -Tenderness on Palpation (Ana-wound No Skin Appearance) -Ulcer Cleansing Soap and Water -Foul Odor after Cleansing No -Anesthetic Used 4% Lidocaine Solution #2 L 3rd toe -Current Size (cm) - Length 0.3 -Current Size (cm) - Width 0.3 -Current Size (cm) - Depth 0.1 -Total Square Cm 0.09 -Photo Taken Yes -Classification - Thickness Full Thickness without Exposed Support Structure -Exudate Amt Medium -Exudate Type Serosanguineous -Wound Margin Distinct, Outline Attached -Granulation Amt None Present (0 %) -Necrosis Amt Large (67-100%) -Necrotic Tissue Type Adherent Slough -Structure Exposed N/A -Texture (Ana-wound Skin Appearance) Localized Edema ,Scarring -Moisture (Ana-wound Skin Appearance) Maceration -Color (Ana-wound Skin Appearance) Hemosiderin Staining -Temperature (Ana-wound Skin No Abnormality Appearance) (Pt Warm) -Tenderness on Palpation (Ana-wound No Skin Appearance) -Ulcer Cleansing Soap and Water -Foul Odor after Cleansing No -Anesthetic Used 4% Lidocaine Solution #1 L Hallux -Current Size (cm) - Length 0.8 0.8 -Current Size (cm) - Width 0.6 0.6 -Current Size (cm) - Depth 0.1 0.1 -Total Square Cm 0.48 0.48 -Photo Taken Yes Yes -Classification - Thickness Full Thickness without Exposed Support Structure -Exudate Amt Medium -Exudate Type Serosanguineous -Wound Margin Distinct, Outline Attached -Granulation Amt None Present (0 %) -Necrosis Amt Large (67-100%) -Necrotic Tissue Type Adherent Slough -Structure Exposed N/A -Texture (Ana-wound Skin Appearance) Localized Edema ,Scarring -Moisture (Ana-wound Skin Appearance) Weeping -Color (Ana-wound Skin Appearance) Hemosiderin Staining -Temperature (Ana-wound Skin No Abnormality Appearance) (Pt Warm) -Tenderness on Palpation (Ana-wound No Skin Appearance) -Ulcer Cleansing Soap and Water -Foul Odor after Cleansing No -Anesthetic Used 4% Lidocaine Solution Right Calf (cm) 40.3 Right Ankle (cm) 23.9 Left Calf (cm) 40.8 Left Ankle (cm) 25.5 WC - Nurse 2 - General Ulcer CM Notes Start: 11/09/21 08:01 Freq: Status: Active Protocol: Activity Type Activity Date Activity User E-sign Co-sign Detail Recorded Client Recorded Date Recorded By Document 11/09/21 08:53 MW [id number] 11/09/21 09:06 MW 11/09/21 08:53 Wound Center Nurse 2 #7 R Inf. LE -Time 08:53 -Correct Patient Yes -Correct Side, Site, Position Yes -Correct Procedure Yes -Procedure Performed Yes -Type of Procedure Debridement -Clinical Debridement Subcutaneous -Tissue Removed Subcutaneous -Post Debridement (cm) - Length 5.5 -Post Debridement (cm) - Width 5.4 -Post Debridement (cm) - Depth 0.2 -Total Square (Post) (cm) 29.70 -Area of Debridement (cm) - Length 5.5 -Area of Debridement (cm) - Width 5.4 -Total Square (Area) (cm) 29.70 -Tunneling No -Undermining/Tunneling No -Circular Undermining No -Wound/Ulcer Outcome Not Healed -Ulcer Cleansing Rinsed/ Irrigated with Saline -Foul Odor after Cleansing No -Bioengineered Tissue No -Bleeding Controlled with Pressure -Treatment Response Procedure Tolerated Well -Offloading No -Debridement - Subq, 1st 20sq cm Yes -Debridement, SubQ, ea addt'l 20sq cm 1 or part thereof #6 R Sup LE -Time 08:54 -Correct Patient Yes -Correct Side, Site, Position Yes -Correct Procedure Yes -Procedure Performed Yes -Type of Procedure Debridement -Clinical Debridement Subcutaneous -Tissue Removed Subcutaneous -Post Debridement (cm) - Length 3.8 -Post Debridement (cm) - Width 4.0 -Post Debridement (cm) - Depth 0.1 -Total Square (Post) (cm) 15.20 -Area of Debridement (cm) - Length 3.8 -Area of Debridement (cm) - Width 4.0 -Total Square (Area) (cm) 15.20 -Tunneling No -Undermining/Tunneling No -Circular Undermining No -Wound/Ulcer Outcome Not Healed -Ulcer Cleansing Rinsed/ Irrigated with Saline -Foul Odor after Cleansing No -Bioengineered Tissue No -Bleeding Controlled with Pressure -Treatment Response Procedure Tolerated Well -Offloading No -Debridement - Subq, 1st 20sq cm No #5 R Dorsal -Time 08:55 -Correct Patient Yes -Correct Side, Site, Position Yes -Correct Procedure Yes -Procedure Performed Yes -Type of Procedure Debridement -Clinical Debridement Subcutaneous -Tissue Removed Subcutaneous -Post Debridement (cm) - Length 1.6 -Post Debridement (cm) - Width 1.9 -Post Debridement (cm) - Depth 0.2 -Total Square (Post) (cm) 3.04 -Area of Debridement (cm) - Length 1.6 -Area of Debridement (cm) - Width 1.9 -Total Square (Area) (cm) 3.04 -Tunneling No -Undermining/Tunneling No -Circular Undermining No -Wound/Ulcer Outcome Not Healed -Ulcer Cleansing Rinsed/ Irrigated with Saline -Foul Odor after Cleansing No -Bioengineered Tissue No -Bleeding Controlled with Pressure -Treatment Response Procedure Tolerated Well -Offloading No -Debridement - Subq, 1st 20sq cm No #4 L Med Cluster -Time 08:55 -Correct Patient Yes -Correct Side, Site, Position Yes -Correct Procedure Yes -Procedure Performed Yes -Type of Procedure Debridement -Clinical Debridement Subcutaneous -Tissue Removed Subcutaneous -Post Debridement (cm) - Length 13.0 -Post Debridement (cm) - Width 4.5 -Post Debridement (cm) - Depth 0.1 -Total Square (Post) (cm) 58.50 -Area of Debridement (cm) - Length 13.0 -Area of Debridement (cm) - Width 4.5 -Total Square (Area) (cm) 58.50 -Tunneling No -Undermining/Tunneling No -Circular Undermining No -Wound/Ulcer Outcome Not Healed -Ulcer Cleansing Rinsed/ Irrigated with Saline -Foul Odor after Cleansing No -Bioengineered Tissue No -Bleeding Controlled with Pressure -Treatment Response Procedure Tolerated Well -Offloading No -Debridement - Subq, 1st 20sq cm No #3 L Lat heel -Time 08:55 -Correct Patient Yes -Correct Side, Site, Position Yes -Correct Procedure Yes -Procedure Performed Yes -Type of Procedure Debridement -Clinical Debridement Subcutaneous -Tissue Removed Subcutaneous -Post Debridement (cm) - Length 0.5 -Post Debridement (cm) - Width 0.3 -Post Debridement (cm) - Depth 0.1 -Total Square (Post) (cm) 0.15 -Area of Debridement (cm) - Length 0.5 -Area of Debridement (cm) - Width 0.3 -Total Square (Area) (cm) 0.15 -Tunneling No -Undermining/Tunneling No -Circular Undermining No -Wound/Ulcer Outcome Not Healed -Ulcer Cleansing Rinsed/ Irrigated with Saline -Foul Odor after Cleansing No -Bioengineered Tissue No -Bleeding Controlled with Pressure -Treatment Response Procedure Tolerated Well -Offloading No -Debridement - Subq, 1st 20sq cm No #2 L 3rd toe -Time 08:56 -Correct Patient Yes -Correct Side, Site, Position Yes -Correct Procedure Yes -Procedure Performed Yes -Type of Procedure Debridement -Clinical Debridement Subcutaneous -Tissue Removed Subcutaneous -Post Debridement (cm) - Length 1.0 -Post Debridement (cm) - Width 0.5 -Post Debridement (cm) - Depth 0.1 -Total Square (Post) (cm) 0.50 -Area of Debridement (cm) - Length 1.0 -Area of Debridement (cm) - Width 0.5 -Total Square (Area) (cm) 0.50 -Tunneling No -Undermining/Tunneling No -Circular Undermining No -Wound/Ulcer Outcome Not Healed -Ulcer Cleansing Rinsed/ Irrigated with Saline -Foul Odor after Cleansing No -Bioengineered Tissue No -Bleeding Controlled with Pressure -Treatment Response Procedure Tolerated Well -Offloading No -Debridement - Subq, 1st 20sq cm No #1 L Hallux -Time 08:56 -Correct Patient Yes -Correct Side, Site, Position Yes -Correct Procedure Yes -Procedure Performed Yes -Type of Procedure Debridement -Clinical Debridement Subcutaneous -Tissue Removed Subcutaneous -Post Debridement (cm) - Length 1.2 -Post Debridement (cm) - Width 1.0 -Post Debridement (cm) - Depth 0.1 -Total Square (Post) (cm) 1.20 -Area of Debridement (cm) - Length 1.2 -Area of Debridement (cm) - Width 1.0 -Total Square (Area) (cm) 1.20 -Tunneling No -Undermining/Tunneling No -Circular Undermining No -Wound/Ulcer Outcome Not Healed -Ulcer Cleansing Rinsed/ Irrigated with Saline -Foul Odor after Cleansing No -Bioengineered Tissue No -Bleeding Controlled with Pressure -Treatment Response Procedure Tolerated Well -Offloading No -Debridement - Subq, 1st 20sq cm No Pain Scale: 0-10 Numeric Is Patient Pain Free? Yes WC - Nurse 3 - General Ulcer D/C NN Start: 11/09/21 08:01 Freq: Status: Active Protocol: Activity Type Activity Date Activity User E-sign Co-sign Detail Recorded Client Recorded Date Recorded By Document 11/09/21 09:10 DL [id number] 11/09/21 09:15 DL 11/09/21 09:10 Wound Care Nurse 3 #7 R Inf. LE -Ulcer Cleansing Soap and Water -Foul Odor after Cleansing No -Primary Dressing Applied Aquacel Extra -Primary Dressing Covered/Secured with Dry Gauze & Roll Gauze, Secured with Tape -Aquacel Extra 1 #6 R Sup LE -Ulcer Cleansing Soap and Water -Foul Odor after Cleansing No -Other Dressing aquacel Ex -Primary Dressing Covered/Secured with Dry Gauze & Roll Gauze, Secured with Tape -Other Covering ABD #5 R Dorsal -Ulcer Cleansing Soap and Water -Foul Odor after Cleansing No -Other Dressing aguacel Ex -Primary Dressing Covered/Secured with Dry Gauze & Roll Gauze, Secured with Tape -Other Covering ABD #4 L Med Cluster -Ulcer Cleansing Soap and Water -Other Dressing aguacel EX -Primary Dressing Covered/Secured with Dry Gauze & Roll Gauze, Secured with Tape -Other Covering ABD #3 L Lat heel -Ulcer Cleansing Soap and Water -Foul Odor after Cleansing No -Other Dressing aquacel EX -Primary Dressing Covered/Secured with Dry Gauze & Roll Gauze, Secured with Tape -Other Covering ABD #2 L 3rd toe -Ulcer Cleansing Soap and Water -Foul Odor after Cleansing No -Other Dressing aquacel EX -Primary Dressing Covered/Secured with Dry Gauze & Roll Gauze, Secured with Tape #1 L Hallux -Ulcer Cleansing Soap and Water -Foul Odor after Cleansing No -Other Dressing aquacel EX -Primary Dressing Covered/Secured with Dry Gauze & Roll Gauze, Secured with Tape Left -Tubular Bandage Double Layer -Size of Tubigrip Used Size E -Size E ($) 2 Right -Tubular Bandage Double Layer -Size of Tubigrip Used Size E -Size E ($) 2 Treatment Response Procedure Tolerated Well Pain Scale: 0-10 Numeric Is Patient Pain Free? Yes WC - Visit Discharge Discharge Condition Stable Ambulatory Status Wheelchair Transportation Private Auto Accompanied by family Additional Wound Wound debrided: Left hallux (medial) Type of Debridement: Excisional debridement Anesthesia Used: 4% Lidocaine Solution Depth: Down to and including healthy tissue and in the subcutaneous layer Percentage of wound debrided: 100 Instrument Used: 5mm curette Tissue Removed: Slough and devitalized tissue Severity: Fat Layer Exposed Amount of bleeding with debridement: Mild Bleeding Controlled with: Pressure Patient tolerated procedure: Patient tolerated procedure well Additional Wound Wound debrided: Left third toe Type of Debridement: Excisional debridement Anesthesia Used: 4% Lidocaine Solution Depth: Down to and including healthy tissue and in the subcutaneous layer Percentage of wound debrided: 100 Instrument Used: 5mm curette Tissue Removed: Slough and devitalized tissue Severity: Fat Layer Exposed Amount of bleeding with debridement: Mild Bleeding Controlled with: Pressure Patient tolerated procedure: Patient tolerated procedure well Additional Wound Wound debrided: Right dorsal foot Type of Debridement: Excisional debridement Depth: Down to and including healthy tissue and in the subcutaneous layer Percentage of wound debrided: 100 Instrument Used: 5mm curette Tissue Removed: Slough and devitalized tissue Severity: Fat Layer Exposed Amount of bleeding with debridement: Mild Bleeding Controlled with: Pressure Patient tolerated procedure: Patient tolerated procedure well Additional Wound Wound debrided: Right lower extremity (inferior) Type of Debridement: Excisional debridement Anesthesia Used: 4% Lidocaine Solution Depth: Down to and including healthy tissue and in the subcutaneous layer Percentage of wound debrided: 100 Instrument Used: 5mm curette Tissue Removed: Slough and devitalized tissue Severity: Fat Layer Exposed Amount of bleeding with debridement: Mild Bleeding Controlled with: Pressure Patient tolerated procedure: Patient tolerated procedure well Additional Wound Wound debrided: Right lower extremity (superior) Type of Debridement: Excisional debridement Anesthesia Used: 4% Lidocaine Solution Depth: Down to and including healthy tissue and in the subcutaneous layer Percentage of wound debrided: 100 Instrument Used: 5mm curette Tissue Removed: Slough and devitalized tissue Severity: Fat Layer Exposed Amount of bleeding with debridement: Mild Bleeding Controlled with: Pressure Patient tolerated procedure: Patient tolerated procedure well Charges/Coding Visit Charges Office Visits / Consults: [id number] OV L4 Est Procedures Integumentary [id number]: [id number] Jannie subq tissue 20 sq cm/< Assessment/Plan Assessment/Plan (1) Ulcer of left lower extremity with fat layer exposed: CODE(S): L97.922 - Non-pressure chronic ulcer of unspecified part of left lower leg with fat layer exposed (2) Ulcer of right lower extremity with fat layer exposed: CODE(S): L97.912 - Non-pressure chronic ulcer of unspecified part of right lower leg with fat layer exposed (3) Bilateral lower extremity edema: CODE(S): R60.0 - Localized edema (4) Type 2 diabetes mellitus: CODE(S): E11.9 - Type 2 diabetes mellitus without complications (5) Cellulitis of leg: CODE(S): L03.119 - Cellulitis of unspecified part of limb (6) 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 Significant bilateral lower extremity edema. Concern for peripheral arterial disease as well. History of toe amputations both of his left and right. Venous and arterial studies ordered. Due to significant edema and drainage, Aquacel recommended. Change 2-3 times daily depending on drainage. Cover with gauze. Double layer Tubigrip and Mathew wrap for edema management. Lengthy discussion had with patient on long-term edema management, patient does not seem very keen. Elevate lower extremities when seated and in bed. Exercise as tolerated. Increase protein intake, vitamin C and zinc discussed. Per patient's , his most recent A1c was less than 7, follows up at the [facility]. Optimal diabetes control discussed. The questions were answered and they were advised to call with any further questions or concerns. Follow-up in 1 week or sooner if needed. This note was generated with [employer] dictation software. It may contain incorrect words, spelling, and punctuation that were not noted in checking the note before signing.
[2021-11-16 09:19] VITALS: BP 133/83; PULSE 108; RESP 20; TEMP 35.8
--- NOTE | 2021-11-16 19:47 | PCM.WC.PN ---
History of Present Illness Date of Service: 11/16/21 Chief Complaint: Bilateral lower extremity ulcer History of Wound: Mr. Brandt is a 76-year-old who presents to the wound center due to non healing bilateral lower extremity ulcerations. He states that it started out as significant bilateral lower extremity swelling on the 10 of September. He sat for 4 straight hours mowing his lawn. Woke up the next day with significant lower extremity swelling. Currently on Lasix which he states that he has been taking. Bought some compression stockings but could not use it because it was too tight. He is mostly sedentary. History of diabetes mellitus type 2, he reports good control. Does not have as much feeling in his lower extremities. He presented to the hospital almost a week ago due to worsening bilateral lower extremity pain, redness, chills and feeling of unwell. Managed for cellulitis. Discharged on antibiotics. Feels better today. Still a lot of drainage and lower extremity swelling. Progress of Wound: No new concerns at this time. Improving ulcers. Lower extremity edema also with some improvement. Objective Data Objective Data Vital Signs: Vital Signs Temp Pulse Resp BP 96.5 F L 108 H 20 H 133/83 H 11/16/21 09:19 11/16/21 09:19 11/16/21 09:19 11/16/21 09:19 Charges/Coding Procedures Integumentary [id number]: [id number] Jannie subq tissue 20 sq cm/< Add On Codes: 24808 Jannie subq tissue add-on (x3 additional square centimeter debrided, please refer to clinical note) Physical Exam Const alert, oriented x3 and no apparent distress General Appearance: cooperative, comfortable and well developed Orientation / Consciousness: awake HEENT normocephalic, head/scalp atraumatic and hearing grossly normal bilaterally Eyes General Eye: normal appearance of both eyes Neck full ROM and supple General: normal visual inspection Resp normal respiratory effort Effort and Inspection: able to speak in complete sentences Testes: Negative for testicular swelling or testicular mass Extremity full ROM General Extremity: edema Skin Wounds: wounds noted Neuro oriented x3, CN's II-XII intact bilaterally, moves all extremities and no focal motor deficits Psych mental status grossly normal Appearance: grossly normal Attitude: calm Activity / Motor Behavior: appropriate eye contact Debridement Note Debridement Note Wound debrided: Left lower extremity cluster Type of Debridement: Excisional debridement Anesthesia Used: 4% Lidocaine Solution Depth: Down to and including healthy tissue and in the subcutaneous layer Percentage of wound debrided: 100 Instrument Used: 5mm curette Tissue Removed: Slough and devitalized tissue Severity: Fat Layer Exposed Amount of bleeding with debridement: Mild Bleeding Controlled with: Pressure Patient tolerated procedure: Patient tolerated procedure well Post-Debridement Measurements and Additional Note: Post-Debridement Measurements/Treatment DAVID - Nurse 1 - General Ulcer Assessment Start: 11/09/21 08:01 Freq: Status: Active Protocol: CHAPARRITA Activity Type Activity Date Activity User E-sign Co-sign Detail Recorded Client Recorded Date Recorded By Document 11/09/21 08:27 DL [id number] 11/09/21 08:37 DL Document 11/09/21 08:41 DL [id number] 11/09/21 08:52 DL Document 11/16/21 09:19 DL [id number] 11/16/21 09:32 DL 11/09/21 11/09/21 11/16/21 08:27 08:41 09:19 - Today's Visit Information Type of service Initial Visit Initial Visit Follow-up Visit (Physician/SOCIAL MEDIA ANALYST ) Arrival Mode Ambulatory, Ambulatory, Ambulatory Wheelchair Wheelchair Transfer Assistance Manual Manual None Transfer Assist (Other) x1 x1 Patient Identification Verified (Name & Yes Yes Yes ) Patient Requires Transmission-Based No No No Precautions Vital Signs Temperature (97.8 F-99.1 F) 97.3 F L 97.4 F L 96.5 F L Temperature Source Temporal Temporal Temporal Pulse Rate (60-100) 78 78 108 H Pulse Location Monitor Monitor Monitor Respiratory Rate (12-18) 20 H 18 20 H Respiratory rate source Observation Observation Observation Blood Pressure (90/60-120/80) 158/88 H 158/78 H 133/83 H Blood Pressure Mean (mm Hg) 111 104 99 Source Monitor Monitor History Since Last Visit- (Skip if this is Patient's initial visit) Have you changed medications since your No last visit? Any new allergies or adverse reactions No Had a fall/change in ADL's that may No increase risk of falls Signs or symptoms of abuse and/or No neglect since last visit Have you been in the hospital since your No last visit? Has dressing in place as prescribed Yes Has compression in place as prescribed Yes Experienced any changes in pain level or No management Left Footwear Slipper Slipper Slipper Right Footwear Slipper Slipper Slipper Pain Scale: 0-10 Numeric Is Patient Pain Free? Yes Yes Yes WC - Nurse 1 - General Ulcer Measurement Start: 11/09/21 08:01 Freq: Status: Active Protocol: Activity Type Activity Date Activity User E-sign Co-sign Detail Recorded Client Recorded Date Recorded By Document 11/09/21 08:27 DL [id number] 11/09/21 08:37 DL Document 11/09/21 08:41 DL [id number] 11/09/21 08:52 DL Document 11/16/21 09:19 DL [id number] 11/16/21 09:32 DL 11/09/21 11/09/21 11/16/21 08:27 08:41 09:19 Wound Center Nurse 1 #7 R Inf. LE -Current Size (cm) - Length 1.8 1.7 -Current Size (cm) - Width 1.1 0.5 -Current Size (cm) - Depth 0.1 0.2 -Total Square Cm 1.98 0.85 -Photo Taken Yes Yes -Classification - Thickness Full Thickness without Exposed Support Structure -Exudate Amt Medium Medium -Exudate Type Serosanguineous Serosanguineous -Wound Margin Distinct, Distinct, Outline Outline Attached Attached -Granulation Amt None Present (0 Small (1-33%) %) -Necrosis Amt Medium (34-66%) Large (67-100%) -Necrotic Tissue Type Adherent Slough Adherent Slough -Structure Exposed N/A N/A -Texture (Ana-wound Skin Appearance) Localized Edema Scarring ,Scarring -Moisture (Ana-wound Skin Appearance) Dry/Scaly -Color (Ana-wound Skin Appearance) Hemosiderin Hemosiderin Staining Staining -Temperature (Ana-wound Skin No Abnormality No Abnormality Appearance) (Pt Warm) (Pt Warm) -Tenderness on Palpation (Ana-wound No Skin Appearance) -Ulcer Cleansing Soap and Water Not Cleansed -Foul Odor after Cleansing No No -Anesthetic Used 4% Lidocaine 5% Lidocaine Solution Gel #6 R Sup LE -Current Size (cm) - Length 2.9 3.4 -Current Size (cm) - Width 4.1 3.9 -Current Size (cm) - Depth 0.1 0.1 -Total Square Cm 11.89 13.26 -Photo Taken Yes Yes -Classification - Thickness Full Thickness without Exposed Support Structure -Exudate Amt Medium Medium -Exudate Type Serosanguineous Serosanguineous -Wound Margin Distinct, Distinct, Outline Outline Attached Attached -Granulation Amt None Present (0 Large (67-100%) %) -Granulation Quality [place] -Necrosis Amt Large (67-100%) None Present (0 %) -Necrotic Tissue Type Adherent Slough -Structure Exposed N/A -Texture (Ana-wound Skin Appearance) Localized Edema Scarring ,Scarring -Moisture (Ana-wound Skin Appearance) Maceration No Abnormality, Weeping -Color (Ana-wound Skin Appearance) Hemosiderin Hemosiderin Staining Staining -Temperature (Ana-wound Skin No Abnormality No Abnormality Appearance) (Pt Warm) (Pt Warm) -Tenderness on Palpation (Ana-wound No No Skin Appearance) -Ulcer Cleansing Soap and Water Soap and Water -Foul Odor after Cleansing No Yes, Due to Product Use -Anesthetic Used 4% Lidocaine 5% Lidocaine Solution Gel #5 R Dorsal -Current Size (cm) - Length 1.3 1.5 -Current Size (cm) - Width 1.4 1.4 -Current Size (cm) - Depth 0.2 0.3 -Total Square Cm 1.82 2.10 -Photo Taken Yes Yes -Exudate Amt Medium Medium -Exudate Type Serosanguineous -Wound Margin Distinct, Distinct, Outline Outline Attached Attached -Granulation Amt None Present (0 Medium (34-66%) %) -Granulation Quality Red -Necrosis Amt Large (67-100%) Medium (34-66%) -Necrotic Tissue Type Adherent Slough Adherent Slough -Structure Exposed N/A N/A -Texture (Ana-wound Skin Appearance) Localized Edema Scarring -Moisture (Ana-wound Skin Appearance) Maceration, No Abnormality Weeping -Color (Ana-wound Skin Appearance) No Abnormality Hemosiderin Staining -Temperature (Ana-wound Skin No Abnormality No Abnormality Appearance) (Pt Warm) (Pt Warm) -Tenderness on Palpation (Ana-wound No Skin Appearance) -Ulcer Cleansing Soap and Water Soap and Water -Foul Odor after Cleansing No No -Anesthetic Used 4% Lidocaine 5% Lidocaine Solution Gel #4 L Med Cluster -Current Size (cm) - Length 12.8 13.3 -Current Size (cm) - Width 2.7 3.8 -Current Size (cm) - Depth 0.1 0.2 -Total Square Cm 34.56 50.54 -Photo Taken Yes -Classification - Thickness Full Thickness without Exposed Support Structure -Exudate Amt Medium Medium -Exudate Type Serosanguineous Serosanguineous -Wound Margin Distinct, Indistinct, Non Outline -Visible Attached -Granulation Amt None Present (0 None Present (0 %) %) -Necrosis Amt Large (67-100%) Large (67-100%) -Necrotic Tissue Type Adherent Slough Adherent Slough -Structure Exposed N/A N/A -Texture (Ana-wound Skin Appearance) Localized Edema Scarring ,Scarring -Moisture (Ana-wound Skin Appearance) Weeping Weeping -Color (Ana-wound Skin Appearance) Hemosiderin Hemosiderin Staining Staining -Temperature (Ana-wound Skin No Abnormality No Abnormality Appearance) (Pt Warm) (Pt Warm) -Ulcer Cleansing Soap and Water Soap and Water -Foul Odor after Cleansing No No -Anesthetic Used 4% Lidocaine 5% Lidocaine Solution Gel #3 L Lat heel -Current Size (cm) - Length 0.4 0.2 -Current Size (cm) - Width 0.3 0.2 -Current Size (cm) - Depth 0.1 0.1 -Total Square Cm 0.12 0.04 -Photo Taken Yes Yes -Classification - Thickness Full Thickness without Exposed Support Structure -Exudate Amt Medium Small -Exudate Type Serosanguineous Serosanguineous -Wound Margin Distinct, Distinct, Outline Outline Attached Attached -Granulation Amt None Present (0 None Present (0 %) %) -Necrosis Amt Large (67-100%) Small (1-33%) -Necrotic Tissue Type Adherent Slough Adherent Slough -Structure Exposed N/A N/A -Texture (Ana-wound Skin Appearance) Localized Edema Scarring ,Scarring -Moisture (Ana-wound Skin Appearance) Maceration, Dry/Scaly Weeping -Color (Ana-wound Skin Appearance) Hemosiderin Hemosiderin Staining Staining -Temperature (Ana-wound Skin No Abnormality No Abnormality Appearance) (Pt Warm) (Pt Warm) -Tenderness on Palpation (Ana-wound No No Skin Appearance) -Ulcer Cleansing Soap and Water Soap and Water -Foul Odor after Cleansing No No -Anesthetic Used 4% Lidocaine 5% Lidocaine Solution Gel #2 L 3rd toe -Current Size (cm) - Length 0.3 0.8 -Current Size (cm) - Width 0.3 0.5 -Current Size (cm) - Depth 0.1 0.1 -Total Square Cm 0.09 0.40 -Photo Taken Yes Yes -Classification - Thickness Full Thickness without Exposed Support Structure -Exudate Amt Medium None Present -Exudate Type Serosanguineous -Wound Margin Distinct, Distinct, Outline Outline Attached Attached -Granulation Amt None Present (0 None Present (0 %) %) -Necrosis Amt Large (67-100%) Small (1-33%) -Necrotic Tissue Type Adherent Slough Adherent Slough -Structure Exposed N/A N/A -Texture (Ana-wound Skin Appearance) Localized Edema Scarring ,Scarring -Moisture (Ana-wound Skin Appearance) Maceration No Abnormality -Color (Ana-wound Skin Appearance) Hemosiderin No Abnormality Staining -Temperature (Ana-wound Skin No Abnormality No Abnormality Appearance) (Pt Warm) (Pt Warm) -Tenderness on Palpation (Ana-wound No No Skin Appearance) -Ulcer Cleansing Soap and Water Soap and Water -Foul Odor after Cleansing No No -Anesthetic Used 4% Lidocaine 5% Lidocaine Solution Gel #1 L Hallux -Current Size (cm) - Length 0.8 0.8 1.5 -Current Size (cm) - Width 0.6 0.6 1.1 -Current Size (cm) - Depth 0.1 0.1 0.1 -Total Square Cm 0.48 0.48 1.65 -Photo Taken Yes Yes Yes -Classification - Thickness Full Thickness without Exposed Support Structure -Exudate Amt Medium Small -Exudate Type Serosanguineous -Wound Margin Distinct, Distinct, Outline Outline Attached Attached -Granulation Amt None Present (0 None Present (0 %) %) -Necrosis Amt Large (67-100%) Small (1-33%) -Necrotic Tissue Type Adherent Slough Adherent Slough -Structure Exposed N/A N/A -Texture (Ana-wound Skin Appearance) Localized Edema Scarring ,Scarring -Moisture (Ana-wound Skin Appearance) Weeping No Abnormality -Color (Ana-wound Skin Appearance) Hemosiderin Hemosiderin Staining Staining -Temperature (Ana-wound Skin No Abnormality No Abnormality Appearance) (Pt Warm) (Pt Warm) -Tenderness on Palpation (Ana-wound No Skin Appearance) -Ulcer Cleansing Soap and Water Soap and Water -Foul Odor after Cleansing No No -Anesthetic Used 4% Lidocaine 5% Lidocaine Solution Gel Right Calf (cm) 40.3 37 Right Ankle (cm) 23.9 23.1 Left Calf (cm) 40.8 39.2 Left Ankle (cm) 25.5 24.5 WC - Nurse 2 - General Ulcer CM Notes Start: 11/09/21 08:01 Freq: Status: Active Protocol: Activity Type Activity Date Activity User E-sign Co-sign Detail Recorded Client Recorded Date Recorded By Document 11/09/21 08:53 MW [id number] 11/09/21 09:06 MW Edit Result 11/09/21 08:53 MW (1) [id number] 11/10/21 14:32 PL Document 11/16/21 09:44 MW [id number] 11/16/21 10:00 MW (1) #7 R Inf. LE - Debridement, SubQ, ea addt'l 20sq cm 1 => 5 or part thereof 11/09/21 11/16/21 08:53 09:44 Wound Center Nurse 2 #7 R Inf. LE -Time 08:53 09:44 -Correct Patient Yes Yes -Correct Side, Site, Position Yes Yes -Correct Procedure Yes -Procedure Performed Yes Yes -Type of Procedure Debridement Debridement -Clinical Debridement Subcutaneous Subcutaneous -Tissue Removed Subcutaneous Subcutaneous -Post Debridement (cm) - Length 5.5 3.0 -Post Debridement (cm) - Width 5.4 0.9 -Post Debridement (cm) - Depth 0.2 0.1 -Total Square (Post) (cm) 29.70 2.70 -Area of Debridement (cm) - Length 5.5 3.0 -Area of Debridement (cm) - Width 5.4 0.9 -Total Square (Area) (cm) 29.70 2.70 -Tunneling No No -Undermining/Tunneling No No -Circular Undermining No No -Wound/Ulcer Outcome Not Healed Not Healed -Ulcer Cleansing Rinsed/ Rinsed/ Irrigated with Irrigated with Saline Saline -Foul Odor after Cleansing No No -Bioengineered Tissue No No -Bleeding Controlled with Pressure Pressure -Treatment Response Procedure Procedure Tolerated Well Tolerated Well -Offloading No No -Debridement - Subq, 1st 20sq cm Yes Yes -Debridement, SubQ, ea addt'l 20sq cm 5 3 or part thereof #6 R Sup LE -Time 08:54 09:46 -Correct Patient Yes Yes -Correct Side, Site, Position Yes Yes -Correct Procedure Yes Yes -Procedure Performed Yes Yes -Type of Procedure Debridement Debridement -Clinical Debridement Subcutaneous Subcutaneous -Tissue Removed Subcutaneous Subcutaneous -Post Debridement (cm) - Length 3.8 3.0 -Post Debridement (cm) - Width 4.0 4.0 -Post Debridement (cm) - Depth 0.1 0.1 -Total Square (Post) (cm) 15.20 12.00 -Area of Debridement (cm) - Length 3.8 3.0 -Area of Debridement (cm) - Width 4.0 4.0 -Total Square (Area) (cm) 15.20 12.00 -Tunneling No No -Undermining/Tunneling No No -Circular Undermining No No -Wound/Ulcer Outcome Not Healed Not Healed -Ulcer Cleansing Rinsed/ Rinsed/ Irrigated with Irrigated with Saline Saline -Foul Odor after Cleansing No No -Bioengineered Tissue No No -Bleeding Controlled with Pressure Pressure -Treatment Response Procedure Procedure Tolerated Well Tolerated Well -Offloading No No -Debridement - Subq, 1st 20sq cm No No #5 R Dorsal -Time 08:55 09:47 -Correct Patient Yes Yes -Correct Side, Site, Position Yes Yes -Correct Procedure Yes Yes -Procedure Performed Yes Yes -Type of Procedure Debridement Debridement -Clinical Debridement Subcutaneous Subcutaneous -Tissue Removed Subcutaneous Subcutaneous -Post Debridement (cm) - Length 1.6 1.4 -Post Debridement (cm) - Width 1.9 1.4 -Post Debridement (cm) - Depth 0.2 0.2 -Total Square (Post) (cm) 3.04 1.96 -Area of Debridement (cm) - Length 1.6 1.4 -Area of Debridement (cm) - Width 1.9 1.4 -Total Square (Area) (cm) 3.04 1.96 -Tunneling No No -Undermining/Tunneling No No -Circular Undermining No No -Wound/Ulcer Outcome Not Healed Not Healed -Ulcer Cleansing Rinsed/ Rinsed/ Irrigated with Irrigated with Saline Saline -Foul Odor after Cleansing No No -Bioengineered Tissue No No -Bleeding Controlled with Pressure Pressure -Treatment Response Procedure Procedure Tolerated Well Tolerated Well -Offloading No No -Debridement - Subq, 1st 20sq cm No No #4 L Med Cluster -Time 08: 09:47 -Correct Patient Yes Yes -Correct Side, Site, Position Yes Yes -Correct Procedure Yes Yes -Procedure Performed Yes Yes -Type of Procedure Debridement Debridement -Clinical Debridement Subcutaneous Subcutaneous -Tissue Removed Subcutaneous Subcutaneous -Post Debridement (cm) - Length 13.0 13.0 -Post Debridement (cm) - Width 4.5 4.0 -Post Debridement (cm) - Depth 0.1 0.1 -Total Square (Post) (cm) 58.50 52.00 -Area of Debridement (cm) - Length 13.0 13.0 -Area of Debridement (cm) - Width 4.5 4.0 -Total Square (Area) (cm) 58.50 52.00 -Tunneling No No -Undermining/Tunneling No No -Circular Undermining No No -Wound/Ulcer Outcome Not Healed Not Healed -Ulcer Cleansing Rinsed/ Rinsed/ Irrigated with Irrigated with Saline Saline -Foul Odor after Cleansing No No -Bioengineered Tissue No No -Bleeding Controlled with Pressure Pressure -Treatment Response Procedure Procedure Tolerated Well Tolerated Well -Offloading No No -Debridement - Subq, 1st 20sq cm No No #3 L Lat heel -Time 08: 09:47 -Correct Patient Yes Yes -Correct Side, Site, Position Yes Yes -Correct Procedure Yes Yes -Procedure Performed Yes Yes -Type of Procedure Debridement Debridement -Clinical Debridement Subcutaneous Subcutaneous -Tissue Removed Subcutaneous Subcutaneous -Post Debridement (cm) - Length 0.5 0.9 -Post Debridement (cm) - Width 0.3 0.3 -Post Debridement (cm) - Depth 0.1 0.1 -Total Square (Post) (cm) 0.15 0.27 -Area of Debridement (cm) - Length 0.5 0.9 -Area of Debridement (cm) - Width 0.3 0.3 -Total Square (Area) (cm) 0.15 0.27 -Tunneling No No -Undermining/Tunneling No No -Circular Undermining No No -Wound/Ulcer Outcome Not Healed Not Healed -Ulcer Cleansing Rinsed/ Rinsed/ Irrigated with Irrigated with Saline Saline -Foul Odor after Cleansing No No -Bioengineered Tissue No No -Bleeding Controlled with Pressure Pressure -Treatment Response Procedure Procedure Tolerated Well Tolerated Well -Offloading No No -Debridement - Subq, 1st 20sq cm No No #2 L 3rd toe -Time 08:56 09:48 -Correct Patient Yes Yes -Correct Side, Site, Position Yes Yes -Correct Procedure Yes Yes -Procedure Performed Yes Yes -Type of Procedure Debridement Debridement -Clinical Debridement Subcutaneous Subcutaneous -Tissue Removed Subcutaneous Subcutaneous -Post Debridement (cm) - Length 1.0 0.5 -Post Debridement (cm) - Width 0.5 0.3 -Post Debridement (cm) - Depth 0.1 0.1 -Total Square (Post) (cm) 0.50 0.15 -Area of Debridement (cm) - Length 1.0 0.5 -Area of Debridement (cm) - Width 0.5 0.3 -Total Square (Area) (cm) 0.50 0.15 -Tunneling No No -Undermining/Tunneling No No -Circular Undermining No No -Wound/Ulcer Outcome Not Healed Not Healed -Ulcer Cleansing Rinsed/ Rinsed/ Irrigated with Irrigated with Saline Saline -Foul Odor after Cleansing No No -Bioengineered Tissue No No -Bleeding Controlled with Pressure Pressure -Treatment Response Procedure Procedure Tolerated Well Tolerated Well -Offloading No No -Debridement - Subq, 1st 20sq cm No No #1 L Hallux -Time 08:56 09:48 -Correct Patient Yes Yes -Correct Side, Site, Position Yes Yes -Correct Procedure Yes Yes -Procedure Performed Yes Yes -Type of Procedure Debridement Debridement -Clinical Debridement Subcutaneous Subcutaneous -Tissue Removed Subcutaneous Subcutaneous -Post Debridement (cm) - Length 1.2 1.0 -Post Debridement (cm) - Width 1.0 1.1 -Post Debridement (cm) - Depth 0.1 0.1 -Total Square (Post) (cm) 1.20 1.10 -Area of Debridement (cm) - Length 1.2 1.0 -Area of Debridement (cm) - Width 1.0 1.1 -Total Square (Area) (cm) 1.20 1.10 -Tunneling No No -Undermining/Tunneling No No -Circular Undermining No No -Wound/Ulcer Outcome Not Healed Not Healed -Ulcer Cleansing Rinsed/ Rinsed/ Irrigated with Irrigated with Saline Saline -Foul Odor after Cleansing No No -Bioengineered Tissue No No -Bleeding Controlled with Pressure Pressure -Treatment Response Procedure Procedure Tolerated Well Tolerated Well -Offloading No No -Debridement - Subq, 1st 20sq cm No No Pain Scale: 0-10 Numeric Is Patient Pain Free? Yes Yes WC - Nurse 3 - General Ulcer D/C NN Start: 11/09/21 08:01 Freq: Status: Active Protocol: Activity Type Activity Date Activity User E-sign Co-sign Detail Recorded Client Recorded Date Recorded By Document 11/09/21 09:10 DL [id number] 11/09/21 09:15 DL Document 11/16/21 13:15 DL [id number] 11/16/21 13:22 DL 11/09/21 11/16/21 09:10 13:15 Wound Care Nurse 3 #7 R Inf. LE -Ulcer Cleansing Soap and Water Soap and Water -Foul Odor after Cleansing No No -Primary Dressing Applied Aquacel Extra -Other Dressing aquacel EX -Primary Dressing Covered/Secured with Dry Gauze & Dry Gauze & Roll Gauze, Roll Gauze, Secured with Secured with Tape Tape -Aquacel Extra 1 #6 R Sup LE -Ulcer Cleansing Soap and Water Soap and Water -Foul Odor after Cleansing No No -Other Dressing aquacel Ex aqauacel EX -Primary Dressing Covered/Secured with Dry Gauze & Dry Gauze & Roll Gauze, Roll Gauze, Secured with Secured with Tape Tape -Other Covering ABD #5 R Dorsal -Ulcer Cleansing Soap and Water Soap and Water -Foul Odor after Cleansing No No -Other Dressing aguacel Ex aquacel EX -Primary Dressing Covered/Secured with Dry Gauze & Dry Gauze & Roll Gauze, Roll Gauze, Secured with Secured with Tape Tape -Other Covering ABD #4 L Med Cluster -Ulcer Cleansing Soap and Water Rinsed/ Irrigated with Saline -Foul Odor after Cleansing No -Other Dressing aguacel EX Aquacel EX -Primary Dressing Covered/Secured with Dry Gauze & Dry Gauze & Roll Gauze, Roll Gauze, Secured with Secured with Tape Tape -Other Covering ABD #3 L Lat heel -Ulcer Cleansing Soap and Water Rinsed/ Irrigated with Saline -Foul Odor after Cleansing No No -Other Dressing aquacel EX aquacel EX -Primary Dressing Covered/Secured with Dry Gauze & Dry Gauze & Roll Gauze, Roll Gauze, Secured with Secured with Tape Tape -Other Covering ABD #2 L 3rd toe -Ulcer Cleansing Soap and Water Not Cleansed -Foul Odor after Cleansing No No -Other Dressing aquacel EX aquacel EX -Primary Dressing Covered/Secured with Dry Gauze & Dry Gauze & Roll Gauze, Roll Gauze, Secured with Secured with Tape Tape #1 L Hallux -Ulcer Cleansing Soap and Water Soap and Water -Foul Odor after Cleansing No No -Other Dressing aquacel EX aquacel EX -Primary Dressing Covered/Secured with Dry Gauze & Dry Gauze & Roll Gauze, Roll Gauze, Secured with Secured with Tape Tape Left -Tubular Bandage Double Layer Double Layer -Size of Tubigrip Used Size E Size E -Size E ($) 2 2 Right -Tubular Bandage Double Layer Double Layer -Size of Tubigrip Used Size E Size E -Size E ($) 2 2 Treatment Response Procedure Procedure Tolerated Well Tolerated Well Pain Scale: 0-10 Numeric Is Patient Pain Free? Yes Yes WC - Visit Discharge Discharge Condition Stable Stable Ambulatory Status Wheelchair Wheelchair Transportation Private Auto Private Auto Accompanied by family Additional Wound Wound debrided: Left great toe (medial) Type of Debridement: Excisional debridement Anesthesia Used: 4% Lidocaine Solution Depth: Down to and including healthy tissue and in the subcutaneous layer Percentage of wound debrided: 100 Instrument Used: 5mm curette Tissue Removed: Slough and devitalized tissue Severity: Fat Layer Exposed Amount of bleeding with debridement: Mild Bleeding Controlled with: Pressure Patient tolerated procedure: Patient tolerated procedure well Additional Wound Wound debrided: Left third toe Type of Debridement: Excisional debridement Anesthesia Used: 4% Lidocaine Solution Depth: Down to and including healthy tissue and in the subcutaneous layer Percentage of wound debrided: 100 Instrument Used: 3mm curette Tissue Removed: Slough and devitalized tissue Severity: Fat Layer Exposed Amount of bleeding with debridement: Mild Bleeding Controlled with: Pressure Patient tolerated procedure: Patient tolerated procedure well Additional Wound Wound debrided: Left plantar Type of Debridement: Excisional debridement Anesthesia Used: 4% Lidocaine Solution Depth: Down to and including healthy tissue and in the subcutaneous layer Percentage of wound debrided: 100 Instrument Used: 5mm curette Tissue Removed: Slough and devitalized tissue Severity: Fat Layer Exposed Amount of bleeding with debridement: Mild Bleeding Controlled with: Pressure Patient tolerated procedure: Patient tolerated procedure well Additional Wound Wound debrided: Right dorsal foot Type of Debridement: Excisional debridement Anesthesia Used: 4% Lidocaine Solution Depth: Down to and including healthy tissue and in the subcutaneous layer Percentage of wound debrided: 100 Instrument Used: 5mm curette Severity: Fat Layer Exposed Amount of bleeding with debridement: Mild Bleeding Controlled with: Pressure Patient tolerated procedure: Patient tolerated procedure well Additional Wound Wound debrided: Right lower extremity Type of Debridement: Excisional debridement Anesthesia Used: 4% Lidocaine Solution Depth: Down to and including healthy tissue Percentage of wound debrided: 100 Instrument Used: 5mm curette Tissue Removed: Slough and devitalized tissue Severity: Fat Layer Exposed Amount of bleeding with debridement: Mild Bleeding Controlled with: Pressure Patient tolerated procedure: Patient tolerated procedure well Additional Wound Wound debrided: Right lower extremity (superior) Type of Debridement: Excisional debridement Anesthesia Used: 4% Lidocaine Solution Depth: Down to and including healthy tissue and in the subcutaneous layer Percentage of wound debrided: 100 Instrument Used: 5mm curette Tissue Removed: Slough and devitalized tissue Severity: Fat Layer Exposed Amount of bleeding with debridement: Mild Bleeding Controlled with: Pressure Patient tolerated procedure: Patient tolerated procedure well Assessment/Plan Assessment/Plan (1) Ulcer of left lower extremity with fat layer exposed: CODE(S): L97.922 - Non-pressure chronic ulcer of unspecified part of left lower leg with fat layer exposed (2) Ulcer of right lower extremity with fat layer exposed: CODE(S): L97.912 - Non-pressure chronic ulcer of unspecified part of right lower leg with fat layer exposed (3) Bilateral lower extremity edema: CODE(S): R60.0 - Localized edema (4) Type 2 diabetes mellitus: CODE(S): E11.9 - Type 2 diabetes mellitus without complications (5) Cellulitis of leg: CODE(S): L03.119 - Cellulitis of unspecified part of limb (6) [facility] current use of 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: CODE(S): Z79.01 - 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 Improving edema and wound size. Continue Aquacel extra, change 2-3 times daily depending on drainage. Cover with gauze. Double layer Tubigrip and Mathew wrap for edema management. They have only been using the double layer Tubigrip but plans to start using the Mathew wrap as well. Elevate lower extremities when seated and in bed. Exercise as tolerated. Increase protein intake, vitamin C and zinc discussed. Per patient's , his most recent A1c was less than 7, follows up at the [facility]. Optimal diabetes control discussed. The questions were answered and they were advised to call with any further questions or concerns. Follow-up in 2 weeks or sooner if needed. This note was generated with [employer] dictation software. It may contain incorrect words, spelling, and punctuation that were not noted in checking the note before signing.
== END 2021-11-29 23:59 | disposition home or self-care (01) ==
LOC: WC 09:15
PROVIDERS: PCP Family Medicine; Visit Provider Internal Medicine
DX: E11.621 Type 2 diabetes mellitus with foot ulcer (principal); E11.51 Type 2 diabetes mellitus with diabetic peripheral angiopathy without gangrene; L97.922 Non-pressure chronic ulcer of unspecified part of left lower leg with fat layer exposed; L97.912 Non-pressure chronic ulcer of unspecified part of right lower leg with fat layer exposed; L97.512 Non-pressure chronic ulcer of other part of right foot with fat layer exposed; L97.522 Non-pressure chronic ulcer of other part of left foot with fat layer exposed; I50.22 Chronic systolic (congestive) heart failure; I11.0 Hypertensive heart disease with heart failure; Z79.82 Long term (current) use of aspirin; I25.10 Atherosclerotic heart disease of native coronary artery without angina pectoris; Z79.01 Long term (current) use of 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s; E78.5 Hyperlipidemia, unspecified; I25.5 Ischemic cardiomyopathy; L03.116 Cellulitis of left lower limb
CPT/HCPCS: 11042; 11045; 99213; G0463

== ENCOUNTER 2021-11-20 11:43 | Outpatient (RCR) | payer MEDICARE, OTHER, SELFPAY ==
[2021-11-20 12:48] LABS: International Normalized Ratio 3.1; Prothrombin Time (Protime)PT. 31.9 SECONDS (11.7-14.9)
[2021-11-20 13:21] LABS: Anion Gap 7 (5-15); BUN 24 mg/dL (7-18); BUN/Creat Ratio 15.7 RATIO (10-20); Chloride 106 mmol/L (98-107); Creatinine, Serum 1.53 mg/dL (0.70-1.30); EST Glomerular Filtration Rate 47 mL/min (>60); Est Glom Filt Rate - Afr Amer 57 mL/min (>60); Glucose 113 mg/dL (74-106); Potassium 3.5 mmol/L (3.5-5.1); Sodium Level 141 mmol/L (136-145)
== END 2021-11-20 18:00 | disposition home or self-care (01) ==
LOC: LAB 11:43
PROVIDERS: Nurse Practitioner Gerontology; PCP Family Medicine; Referring Provider Internal Medicine Cardiovascular Disease; Visit Provider Internal Medicine Cardiovascular Disease
DX: I48.0 Paroxysmal atrial fibrillation (principal); I48.92 Unspecified atrial flutter; Z79.01 Long term (current) use of 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s; R06.09 Other forms of dyspnea
CPT/HCPCS: 36415; 80048; 85610

== ENCOUNTER 2021-12-28 08:45 | Outpatient (RCR) | payer MEDICARE, OTHER, SELFPAY ==
[2021-11-30 00:45] VITALS: BP 133/83; PULSE 108; RESP 20; TEMP 35.8
[2021-11-30 08:47] VITALS: BP 146/88; PULSE 77; TEMP 36.2
--- NOTE | 2021-11-30 14:11 | PCM.WC.PN ---
History of Present Illness Date of Service: 11/30/21 Chief Complaint: Bilateral lower extremity ulcer History of Wound: Mr. Brandt is a 76-year-old who presents to the wound center due to non healing bilateral lower extremity ulcerations. He states that it started out as significant bilateral lower extremity swelling on the 10 of September. He sat for 4 straight hours mowing his lawn. Woke up the next day with significant lower extremity swelling. Currently on Lasix which he states that he has been taking. Bought some compression stockings but could not use it because it was too tight. He is mostly sedentary. History of diabetes mellitus type 2, he reports good control. Does not have as much feeling in his lower extremities. He presented to the hospital almost a week ago due to worsening bilateral lower extremity pain, redness, chills and feeling of unwell. Managed for cellulitis. Discharged on antibiotics. Feels better today. Still a lot of drainage and lower extremity swelling. Progress of Wound: Still significant bilateral lower extremity edema. Patient not compliant with compression. Left heel with some improvement. Objective Data Objective Data Vital Signs: Vital Signs Temp Pulse Resp BP 97.1 F L 77 20 H 146/88 H 11/30/21 08:47 11/30/21 08:47 11/30/21 00:45 11/30/21 08:47 Charges/Coding Procedures Integumentary [id number]: [id number] Jannie subq tissue 20 sq cm/< Add On Codes: 70821 Jannie subq tissue add-on (X3. Additional square centimeter debrided, please refer to clinical note.) Physical Exam Const alert, oriented x3 and no apparent distress General Appearance: cooperative, comfortable and well developed Orientation / Consciousness: awake HEENT normocephalic, head/scalp atraumatic and hearing grossly normal bilaterally Eyes General Eye: normal appearance of both eyes Neck full ROM and supple General: normal visual inspection Resp normal respiratory effort Effort and Inspection: able to speak in complete sentences Testes: Negative for testicular swelling or testicular mass Extremity full ROM General Extremity: edema Skin Wounds: wounds noted Neuro oriented x3, CN's II-XII intact bilaterally, moves all extremities and no focal motor deficits Psych mental status grossly normal Appearance: grossly normal Attitude: calm Activity / Motor Behavior: appropriate eye contact Debridement Note Debridement Note Wound debrided: Right lower extremity (superior) Type of Debridement: Excisional debridement Anesthesia Used: 4% Lidocaine Solution Depth: Down to and including healthy tissue Percentage of wound debrided: 100 Instrument Used: 5mm curette Tissue Removed: Slough and devitalized tissue Severity: Fat Layer Exposed Amount of bleeding with debridement: Mild Bleeding Controlled with: Pressure Patient tolerated procedure: Patient tolerated procedure well Post-Debridement Measurements and Additional Note: Post-Debridement Measurements/Treatment - Nurse 1 - General Ulcer Assessment Start: 11/30/21 08:44 Freq: Status: Active Protocol: CHAPARRITA Activity Type Activity Date Activity User E-sign Co-sign Detail Recorded Client Recorded Date Recorded By Document 11/30/21 08:47 KR [employer] 11/30/21 08:57 KR 11/30/21 08:47 - Today's Visit Information Type of service Follow-up Visit (Physician/[employer] ) Arrival Mode Ambulatory Patient Identification Verified (Name & Yes ) Vital Signs Temperature (97.8 F-99.1 F) 97.1 F L Temperature Source Temporal Pulse Rate (60-100) 77 Pulse Location Monitor Blood Pressure (90/60-120/80) 146/88 H Blood Pressure Mean (mm Hg) 107 Source Monitor Position Sitting Blood Pressure Location Right Arm History Since Last Visit- (Skip if this is Patient's initial visit) Have you changed medications since your No last visit? Any new allergies or adverse reactions No Had a fall/change in ADL's that may No increase risk of falls Signs or symptoms of abuse and/or No neglect since last visit Have you been in the hospital since your No last visit? Has dressing in place as prescribed Yes Has compression in place as prescribed Yes Has offloadiing in place as prescribed N/A Experienced any changes in pain level or No management Left Footwear Regular Shoe Right Footwear Regular Shoe Pain Scale: 0-10 Numeric Is Patient Pain Free? Yes - Nurse 1 - General Ulcer Measurement Start: 11/30/21 08:44 Freq: Status: Active Protocol: Activity Type Activity Date Activity User E-sign Co-sign Detail Recorded Client Recorded Date Recorded By Document 11/30/21 08:47 KR [employer] 11/30/21 08:57 KR 11/30/21 08:47 Wound Center Nurse 1 #7 R Inf. LE -Current Size (cm) - Length 2.4 -Current Size (cm) - Width 0.5 -Current Size (cm) - Depth 0.2 -Total Square Cm 1.20 -Exudate Amt Medium -Exudate Type Yellow/Green -Wound Margin Distinct, Outline Attached -Granulation Amt None Present (0 %) -Necrosis Amt Large (67-100%) -Necrotic Tissue Type Adherent Slough -Texture (Ana-wound Skin Appearance) Assessed, Scarring -Moisture (Ana-wound Skin Appearance) No Abnormality, Assessed -Color (Ana-wound Skin Appearance) No Abnormality, Assessed -Temperature (Ana-wound Skin No Abnormality Appearance) (Pt Warm) -Tenderness on Palpation (Ana-wound No Skin Appearance) -Ulcer Cleansing Soap and Water -Foul Odor after Cleansing No -Anesthetic Used 4% Lidocaine Solution #6 R Sup LE -Current Size (cm) - Length 3.7 -Current Size (cm) - Width 3.5 -Current Size (cm) - Depth 0.2 -Total Square Cm 12.95 -Exudate Amt Medium -Exudate Type Serosanguineous -Wound Margin Distinct, Outline Attached -Granulation Amt Medium (34-66%) -Granulation Quality Red -Necrosis Amt Medium (34-66%) -Necrotic Tissue Type Adherent Slough -Texture (Ana-wound Skin Appearance) Assessed, Scarring -Moisture (Ana-wound Skin Appearance) No Abnormality, Assessed -Color (Ana-wound Skin Appearance) No Abnormality, Assessed -Temperature (Ana-wound Skin No Abnormality Appearance) (Pt Warm) -Tenderness on Palpation (Ana-wound No Skin Appearance) -Ulcer Cleansing Soap and Water -Foul Odor after Cleansing No -Anesthetic Used 4% Lidocaine Solution #5 R Dorsal -Current Size (cm) - Length 1.4 -Current Size (cm) - Width 1.4 -Current Size (cm) - Depth 0.2 -Total Square Cm 1.96 -Exudate Amt Small -Exudate Type Serosanguineous -Wound Margin Distinct, Outline Attached -Granulation Amt Medium (34-66%) -Granulation Quality [place] -Necrosis Amt Medium (34-66%) -Necrotic Tissue Type Adherent Slough -Texture (Ana-wound Skin Appearance) Assessed, Scarring -Moisture (Ana-wound Skin Appearance) No Abnormality, Assessed -Color (Naa-wound Skin Appearance) No Abnormality, Assessed,Not Assessed -Temperature (Ana-wound Skin No Abnormality Appearance) (Pt Warm) -Tenderness on Palpation (Ana-wound No Skin Appearance) -Ulcer Cleansing Soap and Water -Foul Odor after Cleansing No -Anesthetic Used 4% Lidocaine Solution #4 L Med Cluster -Current Size (cm) - Length 13 -Current Size (cm) - Width 4 -Current Size (cm) - Depth 0.2 -Total Square Cm 52 -Exudate Amt Medium -Exudate Type Serosanguineous -Wound Margin Distinct, Outline Attached -Granulation Amt None Present (0 %) -Necrosis Amt Large (67-100%) -Necrotic Tissue Type Adherent Slough -Texture (Ana-wound Skin Appearance) Assessed, Scarring -Moisture (Ana-wound Skin Appearance) No Abnormality, Assessed -Color (Ana-wound Skin Appearance) No Abnormality, Assessed -Temperature (Ana-wound Skin No Abnormality Appearance) (Pt Warm) -Tenderness on Palpation (Ana-wound No Skin Appearance) -Ulcer Cleansing Soap and Water -Foul Odor after Cleansing No -Anesthetic Used 4% Lidocaine Solution #3 L Lat heel -Current Size (cm) - Length 0.4 -Current Size (cm) - Width 0.3 -Current Size (cm) - Depth 0.2 -Total Square Cm 0.12 -Exudate Amt Medium -Exudate Type Serosanguineous -Wound Margin Distinct, Outline Attached -Granulation Amt None Present (0 %) -Necrosis Amt Large (67-100%) -Necrotic Tissue Type Adherent Slough -Texture (Ana-wound Skin Appearance) Assessed, Scarring -Moisture (Ana-wound Skin Appearance) No Abnormality, Assessed -Color (Ana-wound Skin Appearance) No Abnormality, Assessed -Temperature (Ana-wound Skin No Abnormality Appearance) (Pt Warm) -Tenderness on Palpation (Ana-wound No Skin Appearance) -Ulcer Cleansing Soap and Water -Foul Odor after Cleansing No -Anesthetic Used 4% Lidocaine Solution #2 L 3rd toe -Current Size (cm) - Length 1 -Current Size (cm) - Width 0.5 -Current Size (cm) - Depth 0.2 -Total Square Cm 0.5 -Exudate Amt Medium -Exudate Type Serosanguineous -Wound Margin Distinct, Outline Attached -Granulation Amt None Present (0 %) -Necrosis Amt Large (67-100%) -Necrotic Tissue Type Adherent Slough -Texture (Ana-wound Skin Appearance) Assessed, Scarring -Moisture (Ana-wound Skin Appearance) No Abnormality, Assessed -Color (Ana-wound Skin Appearance) No Abnormality, Assessed -Temperature (Ana-wound Skin No Abnormality Appearance) (Pt Warm) -Tenderness on Palpation (Ana-wound No Skin Appearance) -Ulcer Cleansing Soap and Water -Foul Odor after Cleansing No -Anesthetic Used 4% Lidocaine Solution #1 L Hallux -Current Size (cm) - Length 1.5 -Current Size (cm) - Width 1 -Current Size (cm) - Depth 0.1 -Total Square Cm 1.5 -Exudate Amt Medium -Exudate Type Serosanguineous -Wound Margin Distinct, Outline Attached -Granulation Amt None Present (0 %) -Necrosis Amt Large (67-100%) -Necrotic Tissue Type Adherent Slough -Texture (Ana-wound Skin Appearance) Assessed, Scarring -Moisture (Ana-wound Skin Appearance) No Abnormality, Assessed -Color (Ana-wound Skin Appearance) No Abnormality, Assessed -Temperature (Ana-wound Skin No Abnormality Appearance) (Pt Warm) -Tenderness on Palpation (Ana-wound No Skin Appearance) -Ulcer Cleansing Soap and Water -Foul Odor after Cleansing No -Anesthetic Used 4% Lidocaine Solution WC - Nurse 2 - General Ulcer CM Notes Start: 11/30/21 08:44 Freq: Status: Active Protocol: Activity Type Activity Date Activity User E-sign Co-sign Detail Recorded Client Recorded Date Recorded By Document 11/30/21 09:35 MW [id number] 11/30/21 09:49 MW 11/30/21 09:35 Wound Center Nurse 2 #7 R Inf. LE -Time 09:38 -Correct Patient Yes -Correct Side, Site, Position Yes -Correct Procedure Yes -Procedure Performed Yes -Type of Procedure Debridement -Clinical Debridement Subcutaneous -Tissue Removed Subcutaneous -Post Debridement (cm) - Length 2.9 -Post Debridement (cm) - Width 0.9 -Post Debridement (cm) - Depth 0.2 -Total Square (Post) (cm) 2.61 -Area of Debridement (cm) - Length 2.9 -Area of Debridement (cm) - Width 0.9 -Total Square (Area) (cm) 2.61 -Tunneling No -Undermining/Tunneling No -Circular Undermining No -Wound/Ulcer Outcome Not Healed -Ulcer Cleansing Rinsed/ Irrigated with Saline -Foul Odor after Cleansing No -Bioengineered Tissue No -Bleeding Controlled with Pressure -Treatment Response Procedure Tolerated Well -Offloading No -Debridement - Subq, 1st 20sq cm Yes #6 R Sup LE -Time 09:39 -Correct Patient Yes -Correct Side, Site, Position Yes -Correct Procedure Yes -Procedure Performed Yes -Type of Procedure Debridement -Clinical Debridement Subcutaneous -Tissue Removed Subcutaneous -Post Debridement (cm) - Length 3.5 -Post Debridement (cm) - Width 3.3 -Post Debridement (cm) - Depth 0.1 -Total Square (Post) (cm) 11.55 -Area of Debridement (cm) - Length 3.5 -Area of Debridement (cm) - Width 3.3 -Total Square (Area) (cm) 11.55 -Tunneling No -Undermining/Tunneling No -Circular Undermining No -Wound/Ulcer Outcome Not Healed -Ulcer Cleansing Rinsed/ Irrigated with Saline -Foul Odor after Cleansing No -Bioengineered Tissue No -Bleeding Controlled with Pressure -Treatment Response Procedure Tolerated Well -Offloading No -Debridement - Subq, 20sq cm No #5 R Dorsal -Time 09:40 -Correct Patient Yes -Correct Side, Site, Position Yes -Correct Procedure Yes -Procedure Performed Yes -Type of Procedure Debridement -Clinical Debridement Subcutaneous -Tissue Removed Subcutaneous -Post Debridement (cm) - Length 1.9 -Post Debridement (cm) - Width 1.3 -Post Debridement (cm) - Depth 0.2 -Total Square (Post) (cm) 2.47 -Area of Debridement (cm) - Length 1.9 -Area of Debridement (cm) - Width 1.3 -Total Square (Area) (cm) 2.47 -Tunneling No -Undermining/Tunneling No -Circular Undermining No -Wound/Ulcer Outcome Not Healed -Ulcer Cleansing Rinsed/ Irrigated with Saline -Foul Odor after Cleansing No -Bioengineered Tissue No -Bleeding Controlled with Pressure -Treatment Response Procedure Tolerated Well -Offloading No -Debridement - Subq, 1st 20sq cm No #4 L Med Cluster -Time 09:40 -Correct Patient Yes -Correct Side, Site, Position Yes -Correct Procedure Yes -Procedure Performed Yes -Type of Procedure Debridement -Clinical Debridement Subcutaneous -Tissue Removed Subcutaneous -Post Debridement (cm) - Length 13.0 -Post Debridement (cm) - Width 4.0 -Post Debridement (cm) - Depth 0.1 -Total Square (Post) (cm) 52.00 -Area of Debridement (cm) - Length 13.0 -Area of Debridement (cm) - Width 4.0 -Total Square (Area) (cm) 52.00 -Tunneling No -Undermining/Tunneling No -Circular Undermining No -Wound/Ulcer Outcome Not Healed -Ulcer Cleansing Rinsed/ Irrigated with Saline -Foul Odor after Cleansing No -Bioengineered Tissue No -Bleeding Controlled with Pressure -Treatment Response Procedure Tolerated Well -Offloading No -Debridement - Subq, 1st 20sq cm No #3 L Lat heel -Time 09:40 -Correct Patient Yes -Correct Side, Site, Position Yes -Correct Procedure Yes -Procedure Performed Yes -Type of Procedure Debridement -Clinical Debridement Subcutaneous -Tissue Removed Subcutaneous -Post Debridement (cm) - Length 0.4 -Post Debridement (cm) - Width 0.3 -Post Debridement (cm) - Depth 0.1 -Total Square (Post) (cm) 0.12 -Area of Debridement (cm) - Length 0.4 -Area of Debridement (cm) - Width 0.3 -Total Square (Area) (cm) 0.12 -Tunneling No -Undermining/Tunneling No -Circular Undermining No -Wound/Ulcer Outcome Not Healed -Ulcer Cleansing Rinsed/ Irrigated with Saline -Foul Odor after Cleansing No -Bioengineered Tissue No -Bleeding Controlled with Pressure -Treatment Response Procedure Tolerated Well -Offloading No -Debridement - Subq, 1st 20sq cm No #2 L 3rd toe -Time 09:41 -Correct Patient Yes -Correct Side, Site, Position Yes -Correct Procedure Yes -Procedure Performed Yes -Type of Procedure Debridement -Clinical Debridement Subcutaneous -Tissue Removed Subcutaneous -Post Debridement (cm) - Length 1.3 -Post Debridement (cm) - Width 0.6 -Post Debridement (cm) - Depth 0.1 -Total Square (Post) (cm) 0.78 -Area of Debridement (cm) - Length 1.3 -Area of Debridement (cm) - Width 0.6 -Total Square (Area) (cm) 0.78 -Tunneling No -Undermining/Tunneling No -Circular Undermining No -Wound/Ulcer Outcome Not Healed -Ulcer Cleansing Rinsed/ Irrigated with Saline -Foul Odor after Cleansing No -Bioengineered Tissue No -Bleeding Controlled with Pressure -Treatment Response Procedure Tolerated Well -Offloading No -Debridement - Subq, 1st 20sq cm No #1 L Hallux -Time 09:41 -Correct Patient Yes -Correct Side, Site, Position Yes -Correct Procedure Yes -Procedure Performed Yes -Type of Procedure Debridement -Clinical Debridement Subcutaneous -Tissue Removed Subcutaneous -Post Debridement (cm) - Length 1.3 -Post Debridement (cm) - Width 1.1 -Post Debridement (cm) - Depth 0.3 -Total Square (Post) (cm) 1.43 -Area of Debridement (cm) - Length 1.3 -Area of Debridement (cm) - Width 1.1 -Total Square (Area) (cm) 1.43 -Tunneling No -Undermining/Tunneling No -Circular Undermining No -Wound/Ulcer Outcome Not Healed -Ulcer Cleansing Rinsed/ Irrigated with Saline -Foul Odor after Cleansing No -Bioengineered Tissue No -Bleeding Controlled with Pressure -Treatment Response Procedure Tolerated Well -Debridement - Subq, 1st 20sq cm No Pain Scale: 0-10 Numeric Is Patient Pain Free? Yes WC - Nurse 3 - General Ulcer D/C NN Start: 11/30/21 08:44 Freq: Status: Active Protocol: Activity Type Activity Date Activity User E-sign Co-sign Detail Recorded Client Recorded Date Recorded By Document 11/30/21 09:58 RICA [id number] 11/30/21 10:00 RICA 11/30/21 09:58 Wound Care Nurse 3 #7 R Inf. LE -Ulcer Cleansing Rinsed/ Irrigated with Saline -Primary Dressing Applied Aquacel AG 4x4 -Primary Dressing Covered/Secured with Dry Gauze, Secured with Tape -Aquacel AG 4x4 2 #6 R Sup LE -Ulcer Cleansing Rinsed/ Irrigated with Saline -Primary Dressing Covered/Secured with Dry Gauze,Dry Gauze & Roll Gauze,Secured with Tape #5 R Dorsal -Ulcer Cleansing Rinsed/ Irrigated with Saline -Other Dressing abd pad -Primary Dressing Covered/Secured with Secured with Tape #4 L Med Cluster -Other Dressing abd pad -Primary Dressing Covered/Secured with Secured with Tape #3 L Lat heel -Other Dressing abd pad -Primary Dressing Covered/Secured with Dry Gauze & Roll Gauze, Secured with Tape Right -Tubular Bandage Double Layer -Size of Tubigrip Used Size E -Size E ($) 2 Left -Tubular Bandage Double Layer -Size of Tubigrip Used Size E -Size E ($) 2 Pain Scale: 0-10 Numeric Is Patient Pain Free? Yes WC - Visit Discharge Discharge Condition Stable Ambulatory Status Ambulatory Transportation Private Auto Accompanied by daughter Additional Wound Wound debrided: Right juarez Type of Debridement: Excisional debridement Anesthesia Used: 4% Lidocaine Solution Depth: Down to and including healthy tissue and in the subcutaneous layer Percentage of wound debrided: 100 Instrument Used: 5mm curette Tissue Removed: Slough and devitalized tissue Severity: Fat Layer Exposed Amount of bleeding with debridement: Mild Bleeding Controlled with: Pressure Patient tolerated procedure: Patient tolerated procedure well Additional Wound Wound debrided: Right dorsal foot Type of Debridement: Excisional debridement Anesthesia Used: 4% Lidocaine Solution Depth: Down to and including healthy tissue and in the subcutaneous layer Percentage of wound debrided: 100 Instrument Used: 5mm curette Tissue Removed: Slough and devitalized tissue Severity: Fat Layer Exposed Amount of bleeding with debridement: Mild Bleeding Controlled with: Pressure Patient tolerated procedure: Patient tolerated procedure well Additional Wound Wound debrided: Left medial juarez cluster Type of Debridement: Excisional debridement Anesthesia Used: 4% Lidocaine Solution Depth: Down to and including healthy tissue and in the subcutaneous layer Percentage of wound debrided: 100 Instrument Used: 5mm curette Tissue Removed: Slough and devitalized tissue Severity: Fat Layer Exposed Amount of bleeding with debridement: Mild Bleeding Controlled with: Pressure Patient tolerated procedure: Patient tolerated procedure well Additional Wound Wound debrided: Left great toe Type of Debridement: Excisional debridement Anesthesia Used: 4% Lidocaine Solution Depth: Down to and including healthy tissue and in the subcutaneous layer Percentage of wound debrided: 100 Instrument Used: 3mm curette Tissue Removed: Slough and devitalized tissue Severity: Fat Layer Exposed Amount of bleeding with debridement: Mild Bleeding Controlled with: Pressure Patient tolerated procedure: Patient tolerated procedure well Additional Wound Wound debrided: Left third toe Type of Debridement: Excisional debridement Anesthesia Used: 4% Lidocaine Solution Depth: Down to and including healthy tissue and in the subcutaneous layer Percentage of wound debrided: 100 Instrument Used: 3mm curette Tissue Removed: Slough and devitalized tissue Severity: Fat Layer Exposed Amount of bleeding with debridement: Mild Bleeding Controlled with: Pressure Patient tolerated procedure: Patient tolerated procedure well Additional Wound Wound debrided: Left heel Type of Debridement: Excisional debridement Anesthesia Used: 4% Lidocaine Solution Depth: Down to and including healthy tissue and in the subcutaneous layer Percentage of wound debrided: 100 Instrument Used: 3mm curette Tissue Removed: Slough and devitalized tissue Severity: Fat Layer Exposed Amount of bleeding with debridement: Mild Bleeding Controlled with: Pressure Patient tolerated procedure: Patient tolerated procedure well Assessment/Plan Assessment/Plan (1) Ulcer of left lower extremity with fat layer exposed: CODE(S): L97.922 - Non-pressure chronic ulcer of unspecified part of left lower leg with fat layer exposed (2) Ulcer of right lower extremity with fat layer exposed: CODE(S): L97.912 - Non-pressure chronic ulcer of unspecified part of right lower leg with fat layer exposed (3) Bilateral lower extremity edema: CODE(S): R60.0 - Localized edema (4) Type 2 diabetes mellitus: CODE(S): E11.9 - Type 2 diabetes mellitus without complications (5) Cellulitis of leg: CODE(S): L03.119 - Cellulitis of unspecified part of limb (6) [facility] current use of 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: CODE(S): 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 Patient did not comply with compression over the last 2 weeks and so edema has worsened. No significant improvement in ulcers as well. Significant drainage from ulcer sites. Lengthy discussion had with patient about the need for compression. He states that he will make changes. Continue Aquacel extra, change 2-3 times daily depending on drainage. Cover with gauze. Double layer Tubigrip and Mathew wrap for edema management. We will initiate 3M wraps next week unable to now because of the holiday. Left heel with some improvement however toes with no significant improvement. I believe he will benefit from advanced wound care/skin substitute to the toe. Edema with no significant role in delayed healing of the toe ulcer. Elevate lower extremities when seated and in bed. Exercise as tolerated. Increase protein intake, vitamin C and zinc discussed. Per patient's , his most recent A1c was less than 7, follows up at the [facility]. Optimal diabetes control discussed. Their questions were answered and they were advised to call with any further questions or concerns. Follow-up in 1 week or sooner if needed. This note was generated with [employer] dictation software. It may contain incorrect words, spelling, and punctuation that were not noted in checking the note before signing.
[2021-12-07 08:07] VITALS: BP 145/73; PULSE 87; RESP 20; TEMP 35.9
--- NOTE | 2021-12-07 10:56 | PN.PCM_ITS ---
History of Present Illness Date of Service: 12/07/21 Chief Complaint: Bilateral lower extremity ulcer History of Wound: Mr. Brandt is a 76-year-old who presents to the wound center due to non healing bilateral lower extremity ulcerations. He states that it started out as significant bilateral lower extremity swelling on the 10 of September. He sat for 4 straight hours mowing his lawn. Woke up the next day with significant lower extremity swelling. Currently on Lasix which he states that he has been taking. Bought some compression stockings but could not use it because it was too tight. He is mostly sedentary. History of diabetes mellitus type 2, he reports good control. Does not have as much feeling in his lower extremities. He presented to the hospital almost a week ago due to worsening bilateral lower extremity pain, redness, chills and feeling of unwell. Managed for cellulitis. Discharged on antibiotics. Feels better today. Still a lot of drainage and lower extremity swelling. Progress of Wound: Now approved for epi fix. Some improvement in lower extremity edema, was better compliant with his compression over the last week. No new concerns reported otherwise. Objective Data Objective Data Vital Signs: Vital Signs Temp Pulse Resp BP 96.6 F L 87 20 H 145/73 H 12/07/21 08:07 12/07/21 08:07 12/07/21 08:07 12/07/21 08:07 Charges/Coding Procedures Integumentary 111xxx-113xx: [id number] Jannie subq tissue 20 sq cm/< (Right lower extremity) 150xxx-152xx: [id number] Skin sub graft trnk/arm/leg (Left lower extremity) Physical Exam Const alert, oriented x3 and no apparent distress General Appearance: cooperative, comfortable and well developed Orientation / Consciousness: awake HEENT normocephalic, head/scalp atraumatic and hearing grossly normal bilaterally Eyes General Eye: normal appearance of both eyes Neck full ROM and supple General: normal visual inspection Resp normal respiratory effort Effort and Inspection: able to speak in complete sentences Extremity full ROM General Extremity: edema Skin Wounds: wounds noted Neuro oriented x3, CN's II-XII intact bilaterally, moves all extremities and no focal motor deficits Psych mental status grossly normal Appearance: grossly normal Attitude: calm Activity / Motor Behavior: appropriate eye contact Debridement Note Debridement Note Wound debrided: Right lower extremity (superior) Type of Debridement: Excisional debridement Anesthesia Used: 4% Lidocaine Solution Depth: Down to and including healthy tissue and in the subcutaneous layer Percentage of wound debrided: 100 Instrument Used: 7mm curette Tissue Removed: Slough and devitalized tissue Severity: Fat Layer Exposed Amount of bleeding with debridement: Mild Bleeding Controlled with: Pressure Patient tolerated procedure: Patient tolerated procedure well Post-Debridement Measurements and Additional Note: Post-Debridement Measurements/Treatment DAVID Huertas Nurse 1 - General Ulcer Assessment Start: 11/30/21 08:44 Freq: Status: Active Protocol: CHAPARRITA Activity Type Activity Date Activity User E-sign Co-sign Detail Recorded Client Recorded Date Recorded By Document 11/30/21 08:47 KR Desktop 11/30/21 08:57 KR Document 12/07/21 08:07 DL [id number] 12/07/21 08:18 DL 11/30/21 12/07/21 08:47 08:07 DAVID - Today's Visit Information Type of service Follow-up Visit Follow-up Visit (Physician/FARM MARKETER (Physician/FARM MARKETER ) ) Arrival Mode Ambulatory Ambulatory Transfer Assistance None Patient Identification Verified (Name & Yes Yes ) Patient Requires Transmission-Based No Precautions Vital Signs Temperature (97.8 F-99.1 F) 97.1 F L 96.6 F L Temperature Source Temporal Temporal Pulse Rate (60-100) 77 87 Pulse Location Monitor Monitor Respiratory Rate (12-18) 20 H Respiratory rate source Observation Blood Pressure (90/60-120/80) 146/88 H 145/73 H Blood Pressure Mean (mm Hg) 107 97 Source Monitor Monitor Position Sitting Blood Pressure Location Right Arm History Since Last Visit- (Skip if this is Patient's initial visit) Have you changed medications since your No No last visit? Any new allergies or adverse reactions No No Had a fall/change in ADL's that may No No increase risk of falls Signs or symptoms of abuse and/or No No neglect since last visit Have you been in the hospital since your No No last visit? Has dressing in place as prescribed Yes Yes Has compression in place as prescribed Yes Yes Has offloadiing in place as prescribed N/A N/A Experienced any changes in pain level or No No management Left Footwear Regular Shoe Right Footwear Regular Shoe Pain Scale: 0-10 Numeric Is Patient Pain Free? Yes Yes DAVID - Nurse 1 - General Ulcer Measurement Start: 11/30/21 08:44 Freq: Status: Active Protocol: Activity Type Activity Date Activity User E-sign Co-sign Detail Recorded Client Recorded Date Recorded By Document 11/30/21 08:47 KR Desktop 11/30/21 08:57 KR Document 12/07/21 08:07 DL [id number] 12/07/21 08:18 DL 11/30/21 12/07/21 08:47 08:07 Wound Center Nurse 1 #7 R Inf. LE -Current Size (cm) - Length 2.4 2.6 -Current Size (cm) - Width 0.5 0.7 -Current Size (cm) - Depth 0.2 0.2 -Total Square Cm 1.20 1.82 -Photo Taken No -Exudate Amt Medium Medium -Exudate Type Yellow/Green Serosanguineous -Wound Margin Distinct, Distinct, Outline Outline Attached Attached -Granulation Amt None Present (0 Medium (34-66%) %) -Granulation Quality [place] -Necrosis Amt Large (67-100%) Medium (34-66%) -Necrotic Tissue Type Adherent Slough Adherent Slough -Structure Exposed N/A -Texture (Ana-wound Skin Appearance) Assessed, Scarring Scarring -Moisture (Ana-wound Skin Appearance) No Abnormality, No Abnormality Assessed -Color (Ana-wound Skin Appearance) No Abnormality, Hemosiderin Assessed Staining -Temperature (Ana-wound Skin No Abnormality No Abnormality Appearance) (Pt Warm) (Pt Warm) -Tenderness on Palpation (Ana-wound No No Skin Appearance) -Ulcer Cleansing Soap and Water Soap and Water -Foul Odor after Cleansing No -Anesthetic Used 4% Lidocaine 4% Lidocaine Solution Solution #6 R Sup LE -Current Size (cm) - Length 3.7 3.3 -Current Size (cm) - Width 3.5 3 -Current Size (cm) - Depth 0.2 0.1 -Total Square Cm 12.95 9.9 -Photo Taken No -Exudate Amt Medium Medium -Exudate Type Serosanguineous -Wound Margin Distinct, Distinct, Outline Outline Attached Attached -Granulation Amt Medium (34-66%) None Present (0 %) -Granulation Quality Red -Necrosis Amt Medium (34-66%) Large (67-100%) -Necrotic Tissue Type Adherent Slough Adherent Slough -Structure Exposed N/A -Texture (Ana-wound Skin Appearance) Assessed, Scarring Scarring -Moisture (Ana-wound Skin Appearance) No Abnormality, No Abnormality Assessed -Color (Ana-wound Skin Appearance) No Abnormality, Hemosiderin Assessed Staining -Temperature (Ana-wound Skin No Abnormality No Abnormality Appearance) (Pt Warm) (Pt Warm) -Tenderness on Palpation (Ana-wound No No Skin Appearance) -Ulcer Cleansing Soap and Water Soap and Water -Foul Odor after Cleansing No No -Anesthetic Used 4% Lidocaine 4% Lidocaine Solution Solution #5 R Dorsal -Current Size (cm) - Length 1.4 1.4 -Current Size (cm) - Width 1.4 1.4 -Current Size (cm) - Depth 0.2 0.2 -Total Square Cm 1.96 1.96 -Photo Taken No -Exudate Amt Small Medium -Exudate Type Serosanguineous Serosanguineous -Wound Margin Distinct, Outline Attached -Granulation Amt Medium (34-66%) None Present (0 %) -Granulation Quality [place] -Necrosis Amt Medium (34-66%) Large (67-100%) -Necrotic Tissue Type Adherent Slough Adherent Slough -Structure Exposed N/A -Texture (Ana-wound Skin Appearance) Assessed, Scarring Scarring -Moisture (Ana-wound Skin Appearance) No Abnormality, No Abnormality Assessed -Color (Ana-wound Skin Appearance) No Abnormality, Hemosiderin Assessed,Not Staining Assessed -Temperature (Ana-wound Skin No Abnormality No Abnormality Appearance) (Pt Warm) (Pt Warm) -Tenderness on Palpation (Ana-wound No No Skin Appearance) -Ulcer Cleansing Soap and Water Soap and Water -Foul Odor after Cleansing No No -Anesthetic Used 4% Lidocaine 4% Lidocaine Solution Solution #4 L Med Cluster -Current Size (cm) - Length 13 12.9 -Current Size (cm) - Width 4 3.2 -Current Size (cm) - Depth 0.2 0.2 -Total Square Cm 52 41.28 -Photo Taken No -Exudate Amt Medium Medium -Exudate Type Serosanguineous Serosanguineous -Wound Margin Distinct, Distinct, Outline Outline Attached Attached -Granulation Amt None Present (0 None Present (0 %) %) -Necrosis Amt Large (67-100%) Large (67-100%) -Necrotic Tissue Type Adherent Slough Adherent Slough -Structure Exposed N/A -Texture (Ana-wound Skin Appearance) Assessed, Scarring Scarring -Moisture (Ana-wound Skin Appearance) No Abnormality, No Abnormality Assessed -Color (Ana-wound Skin Appearance) No Abnormality, Hemosiderin Assessed Staining -Temperature (Ana-wound Skin No Abnormality No Abnormality Appearance) (Pt Warm) (Pt Warm) -Tenderness on Palpation (Ana-wound No No Skin Appearance) -Ulcer Cleansing Soap and Water Soap and Water -Foul Odor after Cleansing No No -Anesthetic Used 4% Lidocaine 4% Lidocaine Solution Solution #3 L Lat heel -Current Size (cm) - Length 0.4 0.1 -Current Size (cm) - Width 0.3 0.1 -Current Size (cm) - Depth 0.2 0.1 -Total Square Cm 0.12 0.01 -Photo Taken No -Exudate Amt Medium Small -Exudate Type Serosanguineous Serosanguineous -Wound Margin Distinct, Distinct, Outline Outline Attached Attached -Granulation Amt None Present (0 Small (1-33%) %) -Granulation Quality [place] -Necrosis Amt Large (67-100%) None Present (0 %) -Necrotic Tissue Type Adherent Slough -Structure Exposed N/A -Texture (Ana-wound Skin Appearance) Assessed, Scarring Scarring -Moisture (Ana-wound Skin Appearance) No Abnormality, No Abnormality Assessed -Color (Ana-wound Skin Appearance) No Abnormality, Hemosiderin Assessed Staining -Temperature (Ana-wound Skin No Abnormality No Abnormality Appearance) (Pt Warm) (Pt Warm) -Tenderness on Palpation (Ana-wound No No Skin Appearance) -Ulcer Cleansing Soap and Water Soap and Water -Foul Odor after Cleansing No No -Anesthetic Used 4% Lidocaine 4% Lidocaine Solution Solution #2 L 3rd toe -Current Size (cm) - Length 1 1 -Current Size (cm) - Width 0.5 0.3 -Current Size (cm) - Depth 0.2 0.1 -Total Square Cm 0.5 0.3 -Photo Taken No -Exudate Amt Medium Medium -Exudate Type Serosanguineous Serosanguineous -Wound Margin Distinct, Distinct, Outline Outline Attached Attached -Granulation Amt None Present (0 None Present (0 %) %) -Necrosis Amt Large (67-100%) Large (67-100%) -Necrotic Tissue Type Adherent Slough Adherent Slough -Structure Exposed N/A -Texture (Ana-wound Skin Appearance) Assessed, Scarring Scarring -Moisture (Ana-wound Skin Appearance) No Abnormality, No Abnormality Assessed -Color (Ana-wound Skin Appearance) No Abnormality, Hemosiderin Assessed Staining -Temperature (Ana-wound Skin No Abnormality No Abnormality Appearance) (Pt Warm) (Pt Warm) -Tenderness on Palpation (Ana-wound No Skin Appearance) -Ulcer Cleansing Soap and Water Soap and Water -Foul Odor after Cleansing No No -Anesthetic Used 4% Lidocaine 4% Lidocaine Solution Solution #1 L Hallux -Current Size (cm) - Length 1.5 2 -Current Size (cm) - Width 1 0.1 -Current Size (cm) - Depth 0.1 0.1 -Total Square Cm 1.5 0.2 -Photo Taken No -Exudate Amt Medium Medium -Exudate Type Serosanguineous Serosanguineous -Wound Margin Distinct, Outline Attached -Granulation Amt None Present (0 None Present (0 %) %) -Necrosis Amt Large (67-100%) Large (67-100%) -Necrotic Tissue Type Adherent Slough Adherent Slough -Structure Exposed N/A -Texture (Ana-wound Skin Appearance) Assessed, Scarring Scarring -Moisture (Ana-wound Skin Appearance) No Abnormality, No Abnormality Assessed -Color (Ana-wound Skin Appearance) No Abnormality, Hemosiderin Assessed Staining -Temperature (Ana-wound Skin No Abnormality No Abnormality Appearance) (Pt Warm) (Pt Warm) -Tenderness on Palpation (Ana-wound No No Skin Appearance) -Ulcer Cleansing Soap and Water Soap and Water -Foul Odor after Cleansing No No -Anesthetic Used 4% Lidocaine 4% Lidocaine Solution Solution Right Calf (cm) 35.9 Right Ankle (cm) 22.5 Left Calf (cm) 38.9 Point of measurement (cm from the medial 24.3 instep) WC - Nurse 2 - General Ulcer CM Notes Start: 11/30/21 08:44 Freq: Status: Active Protocol: Activity Type Activity Date Activity User E-sign Co-sign Detail Recorded Client Recorded Date Recorded By Document 11/30/21 09:35 MW [id number] 11/30/21 09:49 MW Edit Result 11/30/21 09:35 MW (1) [id number] 12/01/21 06:43 PL Document 12/07/21 08:23 MW [id number] 12/07/21 08:47 MW (1) #7 R Inf. LE - Debridement, SubQ, ea addt'l 20sq cm => 3 or part thereof 11/30/21 12/07/21 09:35 08:23 Wound Center Nurse 2 #7 R Inf. LE -Time 09:38 08:24 -Correct Patient Yes Yes -Correct Side, Site, Position Yes Yes -Correct Procedure Yes Yes -Procedure Performed Yes Yes -Type of Procedure Debridement Debridement -Clinical Debridement Subcutaneous Subcutaneous -Tissue Removed Subcutaneous Subcutaneous -Post Debridement (cm) - Length 2.9 3.0 -Post Debridement (cm) - Width 0.9 0.9 -Post Debridement (cm) - Depth 0.2 0.2 -Total Square (Post) (cm) 2.61 2.70 -Area of Debridement (cm) - Length 2.9 3.0 -Area of Debridement (cm) - Width 0.9 0.9 -Total Square (Area) (cm) 2.61 2.70 -Tunneling No No -Undermining/Tunneling No No -Circular Undermining No No -Wound/Ulcer Outcome Not Healed Not Healed -Ulcer Cleansing Rinsed/ Rinsed/ Irrigated with Irrigated with Saline Saline -Foul Odor after Cleansing No No -Bioengineered Tissue No No -Bleeding Controlled with Pressure Pressure -Treatment Response Procedure Procedure Tolerated Well Tolerated Well -Offloading No No -Debridement - Subq, 1st 20sq cm Yes Yes -Debridement, SubQ, ea addt'l 20sq cm 3 or part thereof #6 R Sup LE -Time 09:39 08:24 -Correct Patient Yes Yes -Correct Side, Site, Position Yes Yes -Correct Procedure Yes Yes -Procedure Performed Yes Yes -Type of Procedure Debridement Debridement -Clinical Debridement Subcutaneous Subcutaneous -Tissue Removed Subcutaneous Subcutaneous -Post Debridement (cm) - Length 3.5 3.6 -Post Debridement (cm) - Width 3.3 2.8 -Post Debridement (cm) - Depth 0.1 0.1 -Total Square (Post) (cm) 11.55 10.08 -Area of Debridement (cm) - Length 3.5 3.6 -Area of Debridement (cm) - Width 3.3 2.8 -Total Square (Area) (cm) 11.55 10.08 -Tunneling No No -Undermining/Tunneling No No -Circular Undermining No No -Wound/Ulcer Outcome Not Healed Not Healed -Ulcer Cleansing Rinsed/ Rinsed/ Irrigated with Irrigated with Saline Saline -Foul Odor after Cleansing No No -Bioengineered Tissue No No -Bleeding Controlled with Pressure Pressure -Treatment Response Procedure Procedure Tolerated Well Tolerated Well -Offloading No No -Debridement - Subq, 1st 20sq cm No No #5 R Dorsal -Time 09:40 08:24 -Correct Patient Yes Yes -Correct Side, Site, Position Yes Yes -Correct Procedure Yes Yes -Procedure Performed Yes Yes -Type of Procedure Debridement Debridement -Clinical Debridement Subcutaneous Subcutaneous -Tissue Removed Subcutaneous Subcutaneous -Post Debridement (cm) - Length 1.9 1.5 -Post Debridement (cm) - Width 1.3 1.3 -Post Debridement (cm) - Depth 0.2 0.2 -Total Square (Post) (cm) 2.47 1.95 -Area of Debridement (cm) - Length 1.9 1.5 -Area of Debridement (cm) - Width 1.3 1.3 -Total Square (Area) (cm) 2.47 1.95 -Tunneling No No -Undermining/Tunneling No No -Circular Undermining No No -Wound/Ulcer Outcome Not Healed Not Healed -Ulcer Cleansing Rinsed/ Rinsed/ Irrigated with Irrigated with Saline Saline -Foul Odor after Cleansing No No -Bioengineered Tissue No No -Bleeding Controlled with Pressure Pressure -Treatment Response Procedure Procedure Tolerated Well Tolerated Well -Offloading No No -Debridement - Subq, 1st 20sq cm No No #4 L Med Cluster -Time :40 08:25 -Correct Patient Yes Yes -Correct Side, Site, Position Yes Yes -Correct Procedure Yes Yes -Procedure Performed Yes Yes -Type of Procedure Debridement Debridement -Clinical Debridement Subcutaneous Subcutaneous -Tissue Removed Subcutaneous Subcutaneous -Post Debridement (cm) - Length 13.0 13.0 -Post Debridement (cm) - Width 4.0 3.5 -Post Debridement (cm) - Depth 0.1 0.2 -Total Square (Post) (cm) 52.00 45.50 -Area of Debridement (cm) - Length 13.0 13.0 -Area of Debridement (cm) - Width 4.0 3.5 -Total Square (Area) (cm) 52.00 45.50 -Tunneling No No -Undermining/Tunneling No No -Circular Undermining No No -Wound/Ulcer Outcome Not Healed Not Healed -Ulcer Cleansing Rinsed/ Rinsed/ Irrigated with Irrigated with Saline Saline -Foul Odor after Cleansing No No -Bioengineered Tissue No Yes -Type of Bioengineered Tissue Epifix Mesh -Expiration Date 09/29/26 -Product Lot Number [id number] -Percent Used 100 -Lot number of Saline Used [id number] -Bleeding Controlled with Pressure Pressure -Treatment Response Procedure Procedure Tolerated Well Tolerated Well -Offloading No No -Debridement - Subq, 1st 20sq cm No No -Apply Skin Sub - 1st 25 sq cm - Legs 1 -Epifix Mesh (per sq cm) 11 #3 L Lat heel -Time 09:40 08:25 -Correct Patient Yes Yes -Correct Side, Site, Position Yes Yes -Correct Procedure Yes Yes -Procedure Performed Yes Yes -Type of Procedure Debridement Debridement -Clinical Debridement Subcutaneous Subcutaneous -Tissue Removed Subcutaneous Subcutaneous -Post Debridement (cm) - Length 0.4 0.4 -Post Debridement (cm) - Width 0.3 0.3 -Post Debridement (cm) - Depth 0.1 0.1 -Total Square (Post) (cm) 0.12 0.12 -Area of Debridement (cm) - Length 0.4 0.4 -Area of Debridement (cm) - Width 0.3 0.3 -Total Square (Area) (cm) 0.12 0.12 -Tunneling No No -Undermining/Tunneling No No -Circular Undermining No No -Wound/Ulcer Outcome Not Healed Not Healed -Ulcer Cleansing Rinsed/ Rinsed/ Irrigated with Irrigated with Saline Saline -Foul Odor after Cleansing No No -Bioengineered Tissue No No -Bleeding Controlled with Pressure Pressure -Treatment Response Procedure Procedure Tolerated Well Tolerated Well -Offloading No No -Debridement - Subq, 1st 20sq cm No No #2 L 3rd toe -Time 09:41 08:25 -Correct Patient Yes Yes -Correct Side, Site, Position Yes Yes -Correct Procedure Yes Yes -Procedure Performed Yes Yes -Type of Procedure Debridement Debridement -Clinical Debridement Subcutaneous Subcutaneous -Tissue Removed Subcutaneous Subcutaneous -Post Debridement (cm) - Length 1.3 1.0 -Post Debridement (cm) - Width 0.6 0.4 -Post Debridement (cm) - Depth 0.1 0.1 -Total Square (Post) (cm) 0.78 0.40 -Area of Debridement (cm) - Length 1.3 1.0 -Area of Debridement (cm) - Width 0.6 0.4 -Total Square (Area) (cm) 0.78 0.40 -Tunneling No No -Undermining/Tunneling No No -Circular Undermining No No -Wound/Ulcer Outcome Not Healed Not Healed -Ulcer Cleansing Rinsed/ Rinsed/ Irrigated with Irrigated with Saline Saline -Foul Odor after Cleansing No No -Bioengineered Tissue No No -Bleeding Controlled with Pressure Pressure -Treatment Response Procedure Procedure Tolerated Well Tolerated Well -Offloading No No -Debridement - Subq, 1st 20sq cm No No #1 L Hallux -Time 09:41 08:26 -Correct Patient Yes Yes -Correct Side, Site, Position Yes Yes -Correct Procedure Yes Yes -Procedure Performed Yes Yes -Type of Procedure Debridement Debridement -Clinical Debridement Subcutaneous Subcutaneous -Tissue Removed Subcutaneous Subcutaneous -Post Debridement (cm) - Length 1.3 2.0 -Post Debridement (cm) - Width 1.1 1.2 -Post Debridement (cm) - Depth 0.3 0.1 -Total Square (Post) (cm) 1.43 2.40 -Area of Debridement (cm) - Length 1.3 2.0 -Area of Debridement (cm) - Width 1.1 1.2 -Total Square (Area) (cm) 1.43 2.40 -Tunneling No No -Undermining/Tunneling No No -Circular Undermining No No -Wound/Ulcer Outcome Not Healed Not Healed -Ulcer Cleansing Rinsed/ Rinsed/ Irrigated with Irrigated with Saline Saline -Foul Odor after Cleansing No No -Bioengineered Tissue No No -Bleeding Controlled with Pressure Pressure -Treatment Response Procedure Procedure Tolerated Well Tolerated Well -Offloading No -Debridement - Subq, 1st 20sq cm No No Pain Scale: 0-10 Numeric Is Patient Pain Free? Yes Yes WC - Nurse 3 - General Ulcer D/C NN Start: 11/30/21 08:44 Freq: Status: Active Protocol: Activity Type Activity Date Activity User E-sign Co-sign Detail Recorded Client Recorded Date Recorded By Document 11/30/21 09:58 KR [id number] 11/30/21 10:00 KR Document 12/07/21 09:03 MO Desktop 12/07/21 09:06 MO 11/30/21 12/07/21 09:58 09:03 Wound Care Nurse 3 #7 R Inf. LE -Ulcer Cleansing Rinsed/ Rinsed/ Irrigated with Irrigated with Saline Saline -Foul Odor after Cleansing No -Primary Dressing Applied Aquacel AG 4x4 Aquacel Extra -Other Dressing drsg per ne rn -Primary Dressing Covered/Secured with Dry Gauze, Secured with Tape -Other Covering abd -Aquacel Extra 1 -Aquacel AG 4x4 2 #6 R Sup LE -Ulcer Cleansing Rinsed/ Rinsed/ Irrigated with Irrigated with Saline Saline -Foul Odor after Cleansing No -Primary Dressing Applied Aquacel Extra -Other Dressing drsg per ne rn -Primary Dressing Covered/Secured with Dry Gauze,Dry Gauze & Roll Gauze,Secured with Tape -Other Covering abd -Aquacel Extra 0 #5 R Dorsal -Ulcer Cleansing Rinsed/ Rinsed/ Irrigated with Irrigated with Saline Saline -Foul Odor after Cleansing No -Primary Dressing Applied Aquacel Extra -Other Dressing abd pad drsg per ne rn -Primary Dressing Covered/Secured with Secured with Tape -Other Covering abd -Aquacel Extra 0 #4 L Med Cluster -Other Dressing abd pad epifix -Primary Dressing Covered/Secured with Secured with Tape -Other Covering abd, drsg per ne rn #3 L Lat heel -Other Dressing abd pad epifix, drsg per ne rn -Primary Dressing Covered/Secured with Dry Gauze & Roll Gauze, Secured with Tape -Other Covering abd #2 L 3rd toe -Other Dressing epifix -Other Covering abd, drsg per ne rn #1 L Hallux -Other Dressing epifix -Other Covering abd; drsg per ne rn [place] -Multi-Layered Wrap Application Multi-Layer Comp - Bilat ($ ) Right -Tubular Bandage Double Layer -Size of Tubigrip Used Size E -Size E ($) 2 Left -Tubular Bandage Double Layer -Size of Tubigrip Used Size E -Size E ($) 2 Treatment Response Procedure Tolerated Well Pain Scale: 0-10 Numeric Is Patient Pain Free? Yes Yes WC - Visit Discharge Discharge Condition Stable Stable Ambulatory Status Ambulatory Ambulatory Transportation Private Auto Private Auto Accompanied by daughter Additional Wound Wound debrided: Right lower extremity (inferior) Type of Debridement: Excisional debridement Anesthesia Used: 4% Lidocaine Solution Depth: Down to and including healthy tissue and in the subcutaneous layer Percentage of wound debrided: 100 Instrument Used: 7mm curette Tissue Removed: Slough and devitalized tissue Severity: Fat Layer Exposed Amount of bleeding with debridement: Mild Bleeding Controlled with: Pressure Patient tolerated procedure: Patient tolerated procedure well Additional Wound Wound debrided: Left lower extremity medial cluster Type of Debridement: Excisional debridement Anesthesia Used: 4% Lidocaine Solution Depth: Down to and including healthy tissue and in the subcutaneous layer Percentage of wound debrided: 100 Instrument Used: 7mm curette Tissue Removed: Slough and devitalized tissue Severity: Fat Layer Exposed Amount of bleeding with debridement: Mild Bleeding Controlled with: Pressure Patient tolerated procedure: Patient tolerated procedure well Additional Wound Wound debrided: Left great toe Type of Debridement: Excisional debridement Anesthesia Used: 4% Lidocaine Solution and 5% Lidocaine Gel Depth: Down to and including healthy tissue and in the subcutaneous layer Percentage of wound debrided: 100 Instrument Used: 7mm curette Severity: Fat Layer Exposed Amount of bleeding with debridement: Mild Bleeding Controlled with: Pressure Patient tolerated procedure: Patient tolerated procedure well Additional Wound Wound debrided: Left third toe Type of Debridement: Excisional debridement Anesthesia Used: 4% Lidocaine Solution Depth: Down to and including healthy tissue and in the subcutaneous layer Percentage of wound debrided: 100 Instrument Used: 3mm curette Tissue Removed: Slough and devitalized tissue Severity: Fat Layer Exposed Amount of bleeding with debridement: Mild Bleeding Controlled with: Pressure Patient tolerated procedure: Patient tolerated procedure well Additional Wound Wound debrided: Left lateral heel Type of Debridement: Excisional debridement Anesthesia Used: 4% Lidocaine Solution Depth: Down to and including healthy tissue and in the subcutaneous layer Percentage of wound debrided: 100 Instrument Used: 3mm curette Tissue Removed: Slough and devitalized tissue Severity: Fat Layer Exposed Amount of bleeding with debridement: Mild Bleeding Controlled with: Pressure Patient tolerated procedure: Patient tolerated procedure well Assessment/Plan Assessment/Plan (1) Ulcer of left lower extremity with fat layer exposed: CODE(S): L97.922 - Non-pressure chronic ulcer of unspecified part of left lower leg with fat layer exposed (2) Ulcer of right lower extremity with fat layer exposed: CODE(S): L97.912 - Non-pressure chronic ulcer of unspecified part of right lower leg with fat layer exposed (3) Bilateral lower extremity edema: CODE(S): R60.0 - Localized edema (4) Type 2 diabetes mellitus: CODE(S): E11.9 - Type 2 diabetes mellitus without complications (5) Cellulitis of leg: CODE(S): L03.119 - Cellulitis of unspecified part of limb (6) [employer] current use of 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: CODE(S): Z79.01 - custodial (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 Now ap proved for epi fix to his left medial ulcers. Initial application of epi fix done to left medial, great toe and third toe. 100% of product was used. Covered with wound veil. Aquacel over to help with drainage. 3M wrap for edema management, come in on Saturday for nurse visit/change. Continue Aquacel extra with ABD over top to right lower extremity ulcerations and left heel ulcer. 3M wrap as well to right lower extremity for edema management, change in Saturday. Exercise as tolerated. Increase protein intake, vitamin C and zinc discussed. Optimal diabetes control discussed. Their questions were answered and they were advised to call with any further questions or concerns. Follow-up in 1 week or sooner if needed. This note was generated with [employer] dictation software. It may contain incorrect words, spelling, and punctuation that were not noted in checking the note before signing.
[2021-12-11 08:26] VITALS: BP 132/78; PULSE 78; TEMP 36.1
[2021-12-14 08:42] VITALS: BP 105/62; PULSE 94; RESP 16; TEMP 36
--- NOTE | 2021-12-14 10:39 | PN.PCM_ITS ---
History of Present Illness Date of Service: 12/14/21 Chief Complaint: Bilateral lower extremity ulcer History of Wound: Mr. Brandt is a 76-year-old who presents to the wound center due to non healing bilateral lower extremity ulcerations. He states that it started out as significant bilateral lower extremity swelling on the 10 of September. He sat for 4 straight hours mowing his lawn. Woke up the next day with significant lower extremity swelling. Currently on Lasix which he states that he has been taking. Bought some compression stockings but could not use it because it was too tight. He is mostly sedentary. History of diabetes mellitus type 2, he reports good control. Does not have as much feeling in his lower extremities. He presented to the hospital almost a week ago due to worsening bilateral lower extremity pain, redness, chills and feeling of unwell. Managed for cellulitis. Discharged on antibiotics. Feels better today. Still a lot of drainage and lower extremity swelling. Progress of Wound: Significant improvement in lower extremity edema, tolerated 3M wraps well. Has had 1 application of epi fix to his left lower extremity. Objective Data Objective Data Vital Signs: Vital Signs Temp Pulse Resp BP O2 Del Method 96.8 F L 94 16 105/62 Room Air 12/14/21 08:42 12/14/21 08:42 12/14/21 08:42 12/14/21 08:42 12/14/21 08:42 Oxygen Delivery Method Room Air Charges/Coding Procedures Integumentary 111xxx-113xx: 21113 Jannie subq tissue 20 sq cm/< (Right lower extremity) 150xxx-152xx: 47711 Skin sub graft trnk/arm/leg (Left lower extremity) Physical Exam Const alert, oriented x3 and no apparent distress General Appearance: cooperative, comfortable and well developed Orientation / Consciousness: awake HEENT normocephalic, head/scalp atraumatic and hearing grossly normal bilaterally Eyes General Eye: normal appearance of both eyes Neck full ROM and supple General: normal visual inspection Resp normal respiratory effort Effort and Inspection: able to speak in complete sentences Extremity full ROM General Extremity: edema Skin Wounds: wounds noted Neuro oriented x3, CN's II-XII intact bilaterally, moves all extremities and no focal motor deficits Psych mental status grossly normal Appearance: grossly normal Attitude: calm Activity / Motor Behavior: appropriate eye contact Debridement Note Debridement Note Wound debrided: Right lower extremity superior Type of Debridement: Excisional debridement Anesthesia Used: 4% Lidocaine Solution Depth: Down to and including healthy tissue and in the subcutaneous layer Percentage of wound debrided: 100 Instrument Used: 5mm curette Tissue Removed: Slough and devitalized tissue Severity: Fat Layer Exposed Amount of bleeding with debridement: Mild Bleeding Controlled with: Pressure Patient tolerated procedure: Patient tolerated procedure well Post-Debridement Measurements and Additional Note: Post-Debridement Measurements/Treatment - Nurse 1 - General Ulcer Assessment Start: 11/30/21 08:44 Freq: Status: Active Protocol: CHAPARRITA Activity Type Activity Date Activity User E-sign Co-sign Detail Recorded Client Recorded Date Recorded By Document 11/30/21 08:47 KR Desktop 11/30/21 08:57 KR Document 12/07/21 08:07 DL [id number] 12/07/21 08:18 DL Document 12/11/21 08:26 KR [id number] 12/11/21 08:27 KR Document 12/14/21 08:42 [facility] [id number] 12/14/21 08:56 BMF 11/30/21 12/07/21 12/11/21 08:47 08:07 08:26 - Today's Visit Information Type of service Follow-up Visit Follow-up Visit Nurse-only (Physician/GRINDER SET UP OPERATOR GEAR TOOL (Physician/GRINDER SET UP OPERATOR GEAR TOOL Visit ) ) Arrival Mode Ambulatory Ambulatory Ambulatory Transfer Assistance None Accompanied by Patient Identification Verified (Name & Yes Yes ) Patient Requires Transmission-Based No Precautions Vital Signs Temperature (97.8 F-99.1 F) 97.1 F L 96.6 F L 97.0 F L Temperature Source Temporal Temporal Temporal Pulse Rate (60-100) 77 87 78 Pulse Location Monitor Monitor Monitor Respiratory Rate (12-18) 20 H Respiratory rate source Observation Oxygen Delivery Method Blood Pressure (90/60-120/80) 146/88 H 145/73 H 132/78 H Blood Pressure Mean (mm Hg) 107 97 96 Source Monitor Monitor Monitor Position Sitting Semi-Fowlers Blood Pressure Location Right Arm Left Arm History Since Last Visit- (Skip if this is Patient's initial visit) Have you changed medications since your No No No last visit? Any new allergies or adverse reactions No No No Had a fall/change in ADL's that may No No No increase risk of falls Signs or symptoms of abuse and/or No No No neglect since last visit Have you been in the hospital since your No No No last visit? Has dressing in place as prescribed Yes Yes Yes Has compression in place as prescribed Yes Yes Yes Has offloadiing in place as prescribed N/A N/A N/A Experienced any changes in pain level or No No No management Left Footwear Regular Shoe Regular Shoe Right Footwear Regular Shoe Regular Shoe Other Footwear Pain Scale: 0-10 Numeric Is Patient Pain Free? Yes Yes Yes 12/14/21 08:42 - Today's Visit Information Type of service Follow-up Visit (Physician/GRINDER SET UP OPERATOR GEAR TOOL ) Arrival Mode Ambulatory Transfer Assistance None Accompanied by girlfriend Patient Identification Verified (Name & Yes ) Patient Requires Transmission-Based No Precautions Vital Signs Temperature (97.8 F-99.1 F) 96.8 F L Temperature Source Temporal Pulse Rate (60-100) 94 Pulse Location Monitor Respiratory Rate (12-18) 16 Respiratory rate source Observation Oxygen Delivery Method Room Air Blood Pressure (90/60-120/80) 105/62 Blood Pressure Mean (mm Hg) 76 Source Monitor Position Sitting Blood Pressure Location Left Arm History Since Last Visit- (Skip if this is Patient's initial visit) Have you changed medications since your No last visit? Any new allergies or adverse reactions No Had a fall/change in ADL's that may No increase risk of falls Signs or symptoms of abuse and/or No neglect since last visit Have you been in the hospital since your No last visit? Has dressing in place as prescribed Yes Has compression in place as prescribed Yes Has offloadiing in place as prescribed N/A Experienced any changes in pain level or No management Left Footwear Other Footwear (Comment) Right Footwear Other Footwear (Comment) Other Footwear non skid socks Pain Scale: 0-10 Numeric Is Patient Pain Free? Yes - Nurse 1 - General Ulcer Measurement Start: 11/30/21 08:44 Freq: Status: Active Protocol: Activity Type Activity Date Activity User E-sign Co-sign Detail Recorded Client Recorded Date Recorded By Document 11/30/21 08:47 KR Desktop 11/30/21 08:57 KR Document 12/07/21 08:07 DL [id number] 12/07/21 08:18 DL Document 12/14/21 08:42 [facility] [id number] 12/14/21 08:56 BMF 11/30/21 12/07/21 12/14/21 08:47 08:07 08:42 Wound Center Nurse 1 #7 R Inf. LE -Combined with other wound No -Current Size (cm) - Length 2.4 2.6 2.2 -Current Size (cm) - Width 0.5 0.7 1.1 -Current Size (cm) - Depth 0.2 0.2 0.2 -Total Square Cm 1.20 1.82 2.42 -Photo Taken No No -Epithelialization None Present -Tunneling No -Undermining/Tunneling No -Circular Undermining No -Exudate Amt Medium Medium Medium -Exudate Type Yellow/Green Serosanguineous Serosanguineous -Wound Margin Distinct, Distinct, Distinct, Outline Outline Outline Attached Attached Attached -Granulation Amt None Present (0 Medium (34-66%) None Present (0 %) %) -Granulation Quality Webber -Slough/Fibrin Yes -Necrosis Amt Large (67-100%) Medium (34-66%) Large (67-100%) -Necrotic Tissue Type Adherent Slough Adherent Slough Adherent Slough -Structure Exposed N/A -Texture (Ana-wound Skin Appearance) Assessed, Scarring Assessed, Scarring Scarring -Moisture (Ana-wound Skin Appearance) No Abnormality, No Abnormality Assessed, Assessed Maceration,Dry/ Scaly -Color (Ana-wound Skin Appearance) No Abnormality, Hemosiderin Assessed Assessed Staining -Temperature (Ana-wound Skin No Abnormality No Abnormality No Abnormality Appearance) (Pt Warm) (Pt Warm) (Pt Warm) -Tenderness on Palpation (Ana-wound No No Yes Skin Appearance) -Ulcer Cleansing Soap and Water Soap and Water Soap and Water -Foul Odor after Cleansing No No -Anesthetic Used 4% Lidocaine 4% Lidocaine 4% Lidocaine Solution Solution Solution #6 R Sup LE -Combined with other wound No -Current Size (cm) - Length 3.7 3.3 3.6 -Current Size (cm) - Width 3.5 3 2.7 -Current Size (cm) - Depth 0.2 0.1 0.2 -Total Square Cm 12.95 9.9 9.72 -Photo Taken No No -Epithelialization Small 1-33% -Tunneling No -Undermining/Tunneling No -Circular Undermining No -Exudate Amt Medium Medium Medium -Exudate Type Serosanguineous Serosanguineous -Wound Margin Distinct, Distinct, Flat & Intact Outline Outline Attached Attached -Granulation Amt Medium (34-66%) None Present (0 Large (67-100%) %) -Granulation Quality Red Red -Slough/Fibrin Yes -Necrosis Amt Medium (34-66%) Large (67-100%) Small (1-33%) -Necrotic Tissue Type Adherent Slough Adherent Slough Adherent Slough -Structure Exposed N/A -Texture (Ana-wound Skin Appearance) Assessed, Scarring Assessed, Scarring Fluctuance -Moisture (Ana-wound Skin Appearance) No Abnormality, No Abnormality Assessed, Assessed Maceration -Color (Ana-wound Skin Appearance) No Abnormality, Hemosiderin Assessed, Assessed Staining Erythema -Temperature (Ana-wound Skin No Abnormality No Abnormality No Abnormality Appearance) (Pt Warm) (Pt Warm) (Pt Warm) -Tenderness on Palpation (Ana-wound No No Yes Skin Appearance) -Ulcer Cleansing Soap and Water Soap and Water Soap and Water -Foul Odor after Cleansing No No Yes, Due to Product Use -Anesthetic Used 4% Lidocaine 4% Lidocaine 4% Lidocaine Solution Solution Solution #5 R Dorsal -Combined with other wound No -Current Size (cm) - Length 1.4 1.4 1.5 -Current Size (cm) - Width 1.4 1.4 1.2 -Current Size (cm) - Depth 0.2 0.2 0.3 -Total Square Cm 1.96 1.96 1.80 -Photo Taken No No -Epithelialization None Present -Tunneling No -Undermining/Tunneling No -Circular Undermining No -Exudate Amt Small Medium Medium -Exudate Type Serosanguineous Serosanguineous Serosanguineous -Wound Margin Distinct, Distinct, Outline Outline Attached Attached -Granulation Amt Medium (34-66%) None Present (0 None Present (0 %) %) -Granulation Quality Webber -Slough/Fibrin Yes -Necrosis Amt Medium (34-66%) Large (67-100%) Large (67-100%) -Necrotic Tissue Type Adherent Slough Adherent Slough Adherent Slough -Structure Exposed N/A -Texture (Ana-wound Skin Appearance) Assessed, Scarring Assessed, Scarring Scarring -Moisture (Ana-wound Skin Appearance) No Abnormality, No Abnormality Assessed, Assessed Maceration -Color (Ana-wound Skin Appearance) No Abnormality, Hemosiderin Assessed Assessed,Not Staining Assessed -Temperature (Ana-wound Skin No Abnormality No Abnormality No Abnormality Appearance) (Pt Warm) (Pt Warm) (Pt Warm) -Tenderness on Palpation (Ana-wound No No Yes Skin Appearance) -Ulcer Cleansing Soap and Water Soap and Water Soap and Water -Foul Odor after Cleansing No No No -Anesthetic Used 4% Lidocaine 4% Lidocaine 4% Lidocaine Solution Solution Solution #4 L Med Cluster -Combined with other wound No -Current Size (cm) - Length 13 12.9 13 -Current Size (cm) - Width 4 3.2 4 -Current Size (cm) - Depth 0.2 0.2 0.2 -Total Square Cm 52 41.28 52 -Photo Taken No No -Epithelialization Small 1-33% -Tunneling No -Undermining/Tunneling No -Circular Undermining No -Exudate Amt Medium Medium Medium -Exudate Type Serosanguineous Serosanguineous Serosanguineous -Wound Margin Distinct, Distinct, Distinct, Outline Outline Outline Attached Attached Attached -Granulation Amt None Present (0 None Present (0 Small (1-33%) %) %) -Granulation Quality Webber -Slough/Fibrin Yes -Necrosis Amt Large (67-100%) Large (67-100%) Large (67-100%) -Necrotic Tissue Type Adherent Slough Adherent Slough Adherent Slough -Structure Exposed N/A -Texture (Ana-wound Skin Appearance) Assessed, Scarring Assessed, Scarring Scarring -Moisture (Ana-wound Skin Appearance) No Abnormality, No Abnormality Assessed, Assessed Maceration,Dry/ Scaly -Color (Ana-wound Skin Appearance) No Abnormality, Hemosiderin Assessed Assessed Staining -Temperature (Ana-wound Skin No Abnormality No Abnormality No Abnormality Appearance) (Pt Warm) (Pt Warm) (Pt Warm) -Tenderness on Palpation (Ana-wound No No Yes Skin Appearance) -Ulcer Cleansing Soap and Water Soap and Water Soap and Water -Foul Odor after Cleansing No No No -Anesthetic Used 4% Lidocaine 4% Lidocaine 4% Lidocaine Solution Solution Solution #3 L Lat heel -Combined with other wound No -Current Size (cm) - Length 0.4 0.1 0.8 -Current Size (cm) - Width 0.3 0.1 0.5 -Current Size (cm) - Depth 0.2 0.1 0.1 -Total Square Cm 0.12 0.01 0.40 -Photo Taken No No -Epithelialization None Present -Tunneling No -Undermining/Tunneling No -Circular Undermining No -Exudate Amt Medium Small Small -Exudate Type Serosanguineous Serosanguineous Serosanguineous -Wound Margin Distinct, Distinct, Distinct, Outline Outline Outline Attached Attached Attached -Granulation Amt None Present (0 Small (1-33%) Large (67-100%) %) -Granulation Quality Webber Red -Slough/Fibrin Yes -Necrosis Amt Large (67-100%) None Present (0 Small (1-33%) %) -Necrotic Tissue Type Adherent Slough Adherent Slough -Structure Exposed N/A -Texture (Ana-wound Skin Appearance) Assessed, Scarring Assessed, Scarring Scarring -Moisture (Ana-wound Skin Appearance) No Abnormality, No Abnormality Assessed Assessed -Color (Ana-wound Skin Appearance) No Abnormality, Hemosiderin Assessed, Assessed Staining Erythema -Temperature (Ana-wound Skin No Abnormality No Abnormality No Abnormality Appearance) (Pt Warm) (Pt Warm) (Pt Warm) -Tenderness on Palpation (Ana-wound No No Yes Skin Appearance) -Ulcer Cleansing Soap and Water Soap and Water Soap and Water -Foul Odor after Cleansing No No No -Anesthetic Used 4% Lidocaine 4% Lidocaine 4% Lidocaine Solution Solution Solution #2 L 3rd toe -Combined with other wound No -Current Size (cm) - Length 1 1 1 -Current Size (cm) - Width 0.5 0.3 0.6 -Current Size (cm) - Depth 0.2 0.1 0.1 -Total Square Cm 0.5 0.3 0.6 -Photo Taken No No -Epithelialization None Present -Tunneling No -Undermining/Tunneling No -Circular Undermining No -Exudate Amt Medium Medium Small -Exudate Type Serosanguineous Serosanguineous Serosanguineous -Wound Margin Distinct, Distinct, Distinct, Outline Outline Outline Attached Attached Attached -Granulation Amt None Present (0 None Present (0 None Present (0 %) %) %) -Slough/Fibrin Yes -Necrosis Amt Large (67-100%) Large (67-100%) Large (67-100%) -Necrotic Tissue Type Adherent Slough Adherent Slough Adherent Slough -Structure Exposed N/A -Texture (Ana-wound Skin Appearance) Assessed, Scarring Assessed, Scarring Scarring -Moisture (Ana-wound Skin Appearance) No Abnormality, No Abnormality Assessed, Assessed Maceration -Color (Ana-wound Skin Appearance) No Abnormality, Hemosiderin Assessed, Assessed Staining Erythema -Temperature (Ana-wound Skin No Abnormality No Abnormality No Abnormality Appearance) (Pt Warm) (Pt Warm) (Pt Warm) -Tenderness on Palpation (Ana-wound No Yes Skin Appearance) -Ulcer Cleansing Soap and Water Soap and Water Soap and Water -Foul Odor after Cleansing No No No -Anesthetic Used 4% Lidocaine 4% Lidocaine 4% Lidocaine Solution Solution Solution #1 L Hallux -Combined with other wound No -Current Size (cm) - Length 1.5 2 2 -Current Size (cm) - Width 1 0.1 1.3 -Current Size (cm) - Depth 0.1 0.1 0.1 -Total Square Cm 1.5 0.2 2.6 -Photo Taken No No -Epithelialization None Present -Tunneling No -Undermining/Tunneling No -Circular Undermining No -Exudate Amt Medium Medium Small -Exudate Type Serosanguineous Serosanguineous Serous -Wound Margin Distinct, Distinct, Outline Outline Attached Attached -Granulation Amt None Present (0 None Present (0 None Present (0 %) %) %) -Slough/Fibrin Yes -Necrosis Amt Large (67-100%) Large (67-100%) Large (67-100%) -Necrotic Tissue Type Adherent Slough Adherent Slough Adherent Slough -Structure Exposed N/A -Texture (Ana-wound Skin Appearance) Assessed, Scarring Assessed, Scarring Scarring -Moisture (Ana-wound Skin Appearance) No Abnormality, No Abnormality Assessed, Assessed Maceration -Color (Ana-wound Skin Appearance) No Abnormality, Hemosiderin Assessed, Assessed Staining Erythema -Temperature (Ana-wound Skin No Abnormality No Abnormality No Abnormality Appearance) (Pt Warm) (Pt Warm) (Pt Warm) -Tenderness on Palpation (Ana-wound No No Yes Skin Appearance) -Ulcer Cleansing Soap and Water Soap and Water Soap and Water -Foul Odor after Cleansing No No No -Anesthetic Used 4% Lidocaine 4% Lidocaine 4% Lidocaine Solution Solution Solution Lower Limb Edema Present Yes Right Calf (cm) 35.9 32.1 Right Ankle (cm) 22.5 21.5 Left Calf (cm) 38.9 32.3 Point of measurement (cm from the medial 24.3 instep) Left Ankle (cm) 24 WC - Nurse 2 - General Ulcer CM Notes Start: 11/30/21 08:44 Freq: Status: Active Protocol: Activity Type Activity Date Activity User E-sign Co-sign Detail Recorded Client Recorded Date Recorded By Document 11/30/21 09:35 MW [id number] 11/30/21 09:49 MW Edit Result 11/30/21 09:35 MW (1) [id number] 12/01/21 06:43 PL Document 12/07/21 08:23 MW [id number] 12/07/21 08:47 MW Document 12/14/21 09:16 MW [id number] 12/14/21 09:34 MW (1) #7 R Inf. LE - Debridement, SubQ, ea addt'l 20sq cm => 3 or part thereof 11/30/21 12/07/21 12/14/21 09:35 08:23 09:16 Wound Center Nurse 2 #7 R Inf. LE -Time 09:38 08:24 09:16 -Correct Patient Yes Yes Yes -Correct Side, Site, Position Yes Yes Yes -Correct Procedure Yes Yes Yes -Procedure Performed Yes Yes Yes -Type of Procedure Debridement Debridement Debridement -Clinical Debridement Subcutaneous Subcutaneous Subcutaneous -Tissue Removed Subcutaneous Subcutaneous Subcutaneous -Post Debridement (cm) - Length 2.9 3.0 2.4 -Post Debridement (cm) - Width 0.9 0.9 1.0 -Post Debridement (cm) - Depth 0.2 0.2 0.2 -Total Square (Post) (cm) 2.61 2.70 2.40 -Area of Debridement (cm) - Length 2.9 3.0 2.4 -Area of Debridement (cm) - Width 0.9 0.9 1.0 -Total Square (Area) (cm) 2.61 2.70 2.40 -Tunneling No No No -Undermining/Tunneling No No No -Circular Undermining No No No -Wound/Ulcer Outcome Not Healed Not Healed Not Healed -Ulcer Cleansing Rinsed/ Rinsed/ Rinsed/ Irrigated with Irrigated with Irrigated with Saline Saline Saline -Foul Odor after Cleansing No No No -Bioengineered Tissue No No No -Bleeding Controlled with Pressure Pressure Pressure -Treatment Response Procedure Procedure Procedure Tolerated Well Tolerated Well Tolerated Well -Offloading No No No -Debridement - Subq, 1st 20sq cm Yes Yes Yes -Debridement, SubQ, ea addt'l 20sq cm 3 or part thereof #6 R Sup LE -Time 09:39 08:24 09:17 -Correct Patient Yes Yes Yes -Correct Side, Site, Position Yes Yes Yes -Correct Procedure Yes Yes Yes -Procedure Performed Yes Yes Yes -Type of Procedure Debridement Debridement Debridement -Clinical Debridement Subcutaneous Subcutaneous Subcutaneous -Tissue Removed Subcutaneous Subcutaneous Subcutaneous -Post Debridement (cm) - Length 3.5 3.6 3.6 -Post Debridement (cm) - Width 3.3 2.8 1.3 -Post Debridement (cm) - Depth 0.1 0.1 0.2 -Total Square (Post) (cm) 11.55 10.08 4.68 -Area of Debridement (cm) - Length 3.5 3.6 3.6 -Area of Debridement (cm) - Width 3.3 2.8 1.3 -Total Square (Area) (cm) 11.55 10.08 4.68 -Tunneling No No No -Undermining/Tunneling No No No -Circular Undermining No No No -Wound/Ulcer Outcome Not Healed Not Healed Not Healed -Ulcer Cleansing Rinsed/ Rinsed/ Rinsed/ Irrigated with Irrigated with Irrigated with Saline Saline Saline -Foul Odor after Cleansing No No No -Bioengineered Tissue No No No -Bleeding Controlled with Pressure Pressure Pressure -Treatment Response Procedure Procedure Procedure Tolerated Well Tolerated Well Tolerated Well -Offloading No No No -Debridement - Subq, 1st 20sq cm No No No #5 R Dorsal -Time 09:40 08:24 09:18 -Correct Patient Yes Yes Yes -Correct Side, Site, Position Yes Yes Yes -Correct Procedure Yes Yes Yes -Procedure Performed Yes Yes Yes -Type of Procedure Debridement Debridement Debridement -Clinical Debridement Subcutaneous Subcutaneous Subcutaneous -Tissue Removed Subcutaneous Subcutaneous Subcutaneous -Post Debridement (cm) - Length 1.9 1.5 1.5 -Post Debridement (cm) - Width 1.3 1.3 1.3 -Post Debridement (cm) - Depth 0.2 0.2 0.2 -Total Square (Post) (cm) 2.47 1.95 1.95 -Area of Debridement (cm) - Length 1.9 1.5 1.5 -Area of Debridement (cm) - Width 1.3 1.3 1.3 -Total Square (Area) (cm) 2.47 1.95 1.95 -Tunneling No No No -Undermining/Tunneling No No No -Circular Undermining No No No -Wound/Ulcer Outcome Not Healed Not Healed Not Healed -Ulcer Cleansing Rinsed/ Rinsed/ Rinsed/ Irrigated with Irrigated with Irrigated with Saline Saline Saline -Foul Odor after Cleansing No No No -Bioengineered Tissue No No No -Bleeding Controlled with Pressure Pressure Pressure -Treatment Response Procedure Procedure Procedure Tolerated Well Tolerated Well Tolerated Well -Offloading No No No -Debridement - Subq, 1st 20sq cm No No No #4 L Med Cluster -Time 09:40 08:25 09:18 -Correct Patient Yes Yes Yes -Correct Side, Site, Position Yes Yes Yes -Correct Procedure Yes Yes Yes -Procedure Performed Yes Yes Yes -Type of Procedure Debridement Debridement Debridement -Clinical Debridement Subcutaneous Subcutaneous Subcutaneous -Tissue Removed Subcutaneous Subcutaneous Subcutaneous -Post Debridement (cm) - Length 13.0 13.0 13.0 -Post Debridement (cm) - Width 4.0 3.5 3.5 -Post Debridement (cm) - Depth 0.1 0.2 0.2 -Total Square (Post) (cm) 52.00 45.50 45.50 -Area of Debridement (cm) - Length 13.0 13.0 13.0 -Area of Debridement (cm) - Width 4.0 3.5 3.5 -Total Square (Area) (cm) 52.00 45.50 45.50 -Tunneling No No No -Undermining/Tunneling No No No -Circular Undermining No No No -Wound/Ulcer Outcome Not Healed Not Healed Not Healed -Ulcer Cleansing Rinsed/ Rinsed/ Rinsed/ Irrigated with Irrigated with Irrigated with Saline Saline Saline -Foul Odor after Cleansing No No No -Bioengineered Tissue No Yes Yes -Type of Bioengineered Tissue Epifix Mesh Epifix Mesh -Expiration Date 09/29/26 09/29/26 -Product Lot Number [id number] -Percent Used 100 100 -Lot number of Saline Used [id number] -Bleeding Controlled with Pressure Pressure Pressure -Treatment Response Procedure Procedure Procedure Tolerated Well Tolerated Well Tolerated Well -Offloading No No No -Debridement - Subq, 1st 20sq cm No No No -Apply Skin Sub - 1st 25 sq cm - Legs 1 1 -Epifix Mesh (per sq cm) 11 13 #3 L Lat heel -Time 09:40 08:25 09:19 -Correct Patient Yes Yes Yes -Correct Side, Site, Position Yes Yes Yes -Correct Procedure Yes Yes Yes -Procedure Performed Yes Yes Yes -Type of Procedure Debridement Debridement Debridement -Clinical Debridement Subcutaneous Subcutaneous Subcutaneous -Tissue Removed Subcutaneous Subcutaneous Subcutaneous -Post Debridement (cm) - Length 0.4 0.4 0.4 -Post Debridement (cm) - Width 0.3 0.3 0.3 -Post Debridement (cm) - Depth 0.1 0.1 0.1 -Total Square (Post) (cm) 0.12 0.12 0.12 -Area of Debridement (cm) - Length 0.4 0.4 0.4 -Area of Debridement (cm) - Width 0.3 0.3 0.3 -Total Square (Area) (cm) 0.12 0.12 0.12 -Tunneling No No No -Undermining/Tunneling No No No -Circular Undermining No No No -Wound/Ulcer Outcome Not Healed Not Healed Not Healed -Ulcer Cleansing Rinsed/ Rinsed/ Rinsed/ Irrigated with Irrigated with Irrigated with Saline Saline Saline -Foul Odor after Cleansing No No No -Bioengineered Tissue No No No -Bleeding Controlled with Pressure Pressure Pressure -Treatment Response Procedure Procedure Procedure Tolerated Well Tolerated Well Tolerated Well -Offloading No No No -Debridement - Subq, 1st 20sq cm No No No #2 L 3rd toe -Time 09:41 08:25 09:19 -Correct Patient Yes Yes Yes -Correct Side, Site, Position Yes Yes Yes -Correct Procedure Yes Yes Yes -Procedure Performed Yes Yes Yes -Type of Procedure Debridement Debridement Debridement -Clinical Debridement Subcutaneous Subcutaneous Subcutaneous -Tissue Removed Subcutaneous Subcutaneous Subcutaneous -Post Debridement (cm) - Length 1.3 1.0 1.0 -Post Debridement (cm) - Width 0.6 0.4 0.5 -Post Debridement (cm) - Depth 0.1 0.1 0.1 -Total Square (Post) (cm) 0.78 0.40 0.50 -Area of Debridement (cm) - Length 1.3 1.0 1.0 -Area of Debridement (cm) - Width 0.6 0.4 0.5 -Total Square (Area) (cm) 0.78 0.40 0.50 -Tunneling No No No -Undermining/Tunneling No No No -Circular Undermining No No No -Wound/Ulcer Outcome Not Healed Not Healed Not Healed -Ulcer Cleansing Rinsed/ Rinsed/ Rinsed/ Irrigated with Irrigated with Irrigated with Saline Saline Saline -Foul Odor after Cleansing No No No -Bioengineered Tissue No No No -Bleeding Controlled with Pressure Pressure Pressure -Treatment Response Procedure Procedure Procedure Tolerated Well Tolerated Well Tolerated Well -Offloading No No No -Debridement - Subq, 1st 20sq cm No No No #1 L Hallux -Time 09:41 08:26 09:20 -Correct Patient Yes Yes Yes -Correct Side, Site, Position Yes Yes Yes -Correct Procedure Yes Yes Yes -Procedure Performed Yes Yes Yes -Type of Procedure Debridement Debridement Debridement -Clinical Debridement Subcutaneous Subcutaneous Subcutaneous -Tissue Removed Subcutaneous Subcutaneous Subcutaneous -Post Debridement (cm) - Length 1.3 2.0 1.8 -Post Debridement (cm) - Width 1.1 1.2 1.1 -Post Debridement (cm) - Depth 0.3 0.1 0.1 -Total Square (Post) (cm) 1.43 2.40 1.98 -Area of Debridement (cm) - Length 1.3 2.0 1.8 -Area of Debridement (cm) - Width 1.1 1.2 1.1 -Total Square (Area) (cm) 1.43 2.40 1.98 -Tunneling No No No -Undermining/Tunneling No No No -Circular Undermining No No No -Wound/Ulcer Outcome Not Healed Not Healed Not Healed -Ulcer Cleansing Rinsed/ Rinsed/ Rinsed/ Irrigated with Irrigated with Irrigated with Saline Saline Saline -Foul Odor after Cleansing No No No -Bioengineered Tissue No No No -Bleeding Controlled with Pressure Pressure Pressure -Treatment Response Procedure Procedure Procedure Tolerated Well Tolerated Well Tolerated Well -Offloading No No -Debridement - Subq, 1st 20sq cm No No No Pain Scale: 0-10 Numeric Is Patient Pain Free? Yes Yes Yes WC - Nurse 3 - General Ulcer D/C NN Start: 11/30/21 08:44 Freq: Status: Active Protocol: Activity Type Activity Date Activity User E-sign Co-sign Detail Recorded Client Recorded Date Recorded By Document 11/30/21 09:58 KR [id number] 11/30/21 10:00 KR Document 12/07/21 09:03 MT Desktop 12/07/21 09:06 MT Document 12/11/21 08:26 KR [id number] 12/11/21 08:27 KR Document 12/14/21 09:43 DL [id number] 12/14/21 09:48 DL 11/30/21 12/07/21 12/11/21 09:58 09:03 08:26 Wound Care Nurse 3 #7 R Inf. LE -Ulcer Cleansing Rinsed/ Rinsed/ Soap and Water Irrigated with Irrigated with Saline Saline -Foul Odor after Cleansing No -Primary Dressing Applied Aquacel AG 4x4 Aquacel Extra Aquacel AG 4x4 -Other Dressing drsg per az rn -Primary Dressing Covered/Secured with Dry Gauze, Secured with Tape -Other Covering abd -Aquacel Extra 1 -Aquacel AG 4x4 2 1 #6 R Sup LE -Ulcer Cleansing Rinsed/ Rinsed/ Irrigated with Irrigated with Saline Saline -Foul Odor after Cleansing No -Primary Dressing Applied Aquacel Extra -Other Dressing drsg per az rn -Primary Dressing Covered/Secured with Dry Gauze,Dry Gauze & Roll Gauze,Secured with Tape -Other Covering abd -Aquacel Extra 0 #5 R Dorsal -Ulcer Cleansing Rinsed/ Rinsed/ Irrigated with Irrigated with Saline Saline -Foul Odor after Cleansing No -Primary Dressing Applied Aquacel Extra -Other Dressing abd pad drsg per az rn -Primary Dressing Covered/Secured with Secured with Tape -Other Covering abd -Aquacel Extra 0 #4 L Med Cluster -Ulcer Cleansing -Other Dressing abd pad epifix -Primary Dressing Covered/Secured with Secured with Tape -Other Covering abd, drsg per az rn #3 L Lat heel -Ulcer Cleansing -Other Dressing abd pad epifix, drsg per az rn -Primary Dressing Covered/Secured with Dry Gauze & Roll Gauze, Secured with Tape -Other Covering abd #2 L 3rd toe -Ulcer Cleansing -Other Dressing epifix -Primary Dressing Covered/Secured with -Other Covering abd, drsg per az rn #1 L Hallux -Foul Odor after Cleansing -Other Dressing epifix -Primary Dressing Covered/Secured with -Other Covering abd; drsg per az rn payton -Multi-Layered Wrap Application Multi-Layer Multi-Layer Comp - Bilat ($ Comp - Bilat ($ ) ) Right -Tubular Bandage Double Layer -Size of Tubigrip Used Size E -Size E ($) 2 Left -Tubular Bandage Double Layer -Size of Tubigrip Used Size E -Size E ($) 2 Treatment Response Procedure Tolerated Well Vital Signs Temperature (97.8 F-99.1 F) 97.0 F L Temperature Source Temporal Pulse Rate (60-100) 78 Pulse Location Monitor Blood Pressure (90/60-120/80) 132/78 H Blood Pressure Mean (mm Hg) 96 Source Monitor Position Semi-Fowlers Blood Pressure Location Left Arm Pain Scale: 0-10 Numeric Is Patient Pain Free? Yes Yes Yes WC - Visit Discharge Discharge Condition Stable Stable Stable Ambulatory Status Ambulatory Ambulatory Ambulatory Transportation Private Auto Private Auto Private Auto Accompanied by daughter Notes: 12/14/21 09:43 Wound Care Nurse 3 #7 R Inf. LE -Ulcer Cleansing Rinsed/ Irrigated with Saline -Foul Odor after Cleansing No -Primary Dressing Applied Aquacel Extra -Other Dressing -Primary Dressing Covered/Secured with Dry Gauze & Roll Gauze, Secured with Tape -Other Covering -Aquacel Extra 1 -Aquacel AG 4x4 #6 R Sup LE -Ulcer Cleansing Rinsed/ Irrigated with Saline -Foul Odor after Cleansing No -Primary Dressing Applied -Other Dressing aqaucel Ex -Primary Dressing Covered/Secured with Dry Gauze & Roll Gauze, Secured with Tape -Other Covering -Aquacel Extra #5 R Dorsal -Ulcer Cleansing Rinsed/ Irrigated with Saline -Foul Odor after Cleansing No -Primary Dressing Applied -Other Dressing aquacel Ex -Primary Dressing Covered/Secured with Dry Gauze & Roll Gauze, Secured with Tape -Other Covering -Aquacel Extra #4 L Med Cluster -Ulcer Cleansing Not Cleansed -Other Dressing Epii fix/ aquacel Ex -Primary Dressing Covered/Secured with Dry Gauze & Roll Gauze, Secured with Tape -Other Covering #3 L Lat heel -Ulcer Cleansing Rinsed/ Irrigated with Saline -Other Dressing aquacel EX -Primary Dressing Covered/Secured with Dry Gauze & Roll Gauze, Secured with Tape -Other Covering #2 L 3rd toe -Ulcer Cleansing Not Cleansed -Other Dressing Epi Fix/aquacel Ex -Primary Dressing Covered/Secured with Dry Gauze & Roll Gauze, Secured with Tape -Other Covering #1 L Hallux -Foul Odor after Cleansing No -Other Dressing epi Fix/ Aquacel Ex -Primary Dressing Covered/Secured with Dry Gauze & Roll Gauze, Secured with Tape -Other Covering payton -Multi-Layered Wrap Application Multi-Layer Comp - Bilat ($ ) Right -Tubular Bandage -Size of Tubigrip Used -Size E ($) Left -Tubular Bandage -Size of Tubigrip Used -Size E ($) Treatment Response Procedure Tolerated Well Vital Signs Temperature (97.8 F-99.1 F) Temperature Source Pulse Rate (60-100) Pulse Location Blood Pressure (90/60-120/80) Blood Pressure Mean (mm Hg) Source Position Blood Pressure Location Pain Scale: 0-10 Numeric Is Patient Pain Free? Yes WC - Visit Discharge Discharge Condition Stable Ambulatory Status Ambulatory Transportation Private Auto Accompanied by Notes: Surgical Shoe for L Foot applied. Additional Wound Wound debrided: Right juarez Type of Debridement: Excisional debridement Anesthesia Used: 4% Lidocaine Solution Depth: Down to and including healthy tissue and in the subcutaneous layer Percentage of wound debrided: 100 Instrument Used: 5mm curette Tissue Removed: Slough and devitalized tissue Severity: Fat Layer Exposed Amount of bleeding with debridement: Mild Bleeding Controlled with: Pressure Patient tolerated procedure: Patient tolerated procedure well Additional Wound Wound debrided: Right dorsal foot Type of Debridement: Excisional debridement Anesthesia Used: 4% Lidocaine Solution Depth: Down to and including healthy tissue and in the subcutaneous layer Percentage of wound debrided: 100 Instrument Used: 5mm curette Tissue Removed: Slough and devitalized tissue Severity: Fat Layer Exposed Amount of bleeding with debridement: Mild Bleeding Controlled with: Pressure Patient tolerated procedure: Patient tolerated procedure well Additional Wound Wound debrided: Left lower extremity cluster Type of Debridement: Excisional debridement Anesthesia Used: 4% Lidocaine Solution Depth: Down to and including healthy tissue and in the subcutaneous layer Percentage of wound debrided: 100 Instrument Used: 5mm curette Tissue Removed: Slough and devitalized tissue Severity: Fat Layer Exposed Amount of bleeding with debridement: Mild Bleeding Controlled with: Pressure Patient tolerated procedure: Patient tolerated procedure well Additional Wound Wound debrided: Left great toe Type of Debridement: Excisional debridement Anesthesia Used: 4% Lidocaine Solution Depth: Down to and including healthy tissue and in the subcutaneous layer Percentage of wound debrided: 100 Instrument Used: 3mm curette Tissue Removed: Slough and devitalized tissue Severity: Fat Layer Exposed Amount of bleeding with debridement: Mild Bleeding Controlled with: Pressure Patient tolerated procedure: Patient tolerated procedure well Additional Wound Wound debrided: Left third toe Type of Debridement: Excisional debridement Anesthesia Used: 4% Lidocaine Solution Depth: Down to and including healthy tissue and in the subcutaneous layer Percentage of wound debrided: 100 Instrument Used: 3mm curette Tissue Removed: Slough and devitalized tissue Severity: Fat Layer Exposed Amount of bleeding with debridement: Mild Bleeding Controlled with: Pressure Patient tolerated procedure: Patient tolerated procedure well Additional Wound Wound debrided: Left lateral heel Type of Debridement: Excisional debridement Anesthesia Used: 4% Lidocaine Solution Depth: Down to and including healthy tissue and in the subcutaneous layer Percentage of wound debrided: 100 Instrument Used: 3mm curette Tissue Removed: Slough and devitalized tissue Severity: Fat Layer Exposed Amount of bleeding with debridement: Mild Bleeding Controlled with: Pressure Patient tolerated procedure: Patient tolerated procedure well Assessment/Plan Assessment/Plan (1) Ulcer of left lower extremity with fat layer exposed: CODE(S): L97.922 - Non-pressure chronic ulcer of unspecified part of left lower leg with fat layer exposed (2) Ulcer of right lower extremity with fat layer exposed: CODE(S): L97.912 - Non-pressure chronic ulcer of unspecified part of right lower leg with fat layer exposed (3) Bilateral lower extremity edema: CODE(S): R60.0 - Localized edema (4) Type 2 diabetes mellitus: CODE(S): E11.9 - Type 2 diabetes mellitus without complications (5) Cellulitis of leg: CODE(S): L03.119 - Cellulitis of unspecified part of limb (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: CODE(S): Z79.01 - 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 Tolerated 3M wraps well and edema with significant improvement. 2nd application of epi fix done to left medial, great toe and third toe. 100% of product was used. Covered with wound veil. Aquacel over to help with drainage. 3M wrap for edema management, come in on Saturday for nurse visit/change. Continue Aquacel extra with ABD over top to right lower extremity ulcerations and left heel ulcer. 3M wrap as well to right lower extremity for edema management, change on Saturday. Exercise as tolerated. Increase protein intake, vitamin C and zinc discussed. Optimal diabetes control discussed. Their questions were answered and they were advised to call with any further questions or concerns. Follow-up in 1 week or sooner if needed. This note was generated with [employer] software. It may contain incorrect words, spelling, and punctuation that were not noted in checking the note before signing.
[2021-12-18 08:03] VITALS: BP 127/65; PULSE 96; TEMP 36
[2021-12-21 08:06] VITALS: BP 135/80; PULSE 108; RESP 16; TEMP 36.5
--- NOTE | 2021-12-21 12:50 | PCM.WC.PN ---
History of Present Illness Date of Service: 12/21/21 Chief Complaint: Bilateral lower extremity ulcer History of Wound: Mr. Brandt is a 76-year-old who presents to the wound center due to non healing bilateral lower extremity ulcerations. He states that it started out as significant bilateral lower extremity swelling on the 10 of September. He sat for 4 straight hours mowing his lawn. Woke up the next day with significant lower extremity swelling. Currently on Lasix which he states that he has been taking. Bought some compression stockings but could not use it because it was too tight. He is mostly sedentary. History of diabetes mellitus type 2, he reports good control. Does not have as much feeling in his lower extremities. He presented to the hospital almost a week ago due to worsening bilateral lower extremity pain, redness, chills and feeling of unwell. Managed for cellulitis. Discharged on antibiotics. Feels better today. Still a lot of drainage and lower extremity swelling. Progress of Wound: Has had 2 applications of Epifix so far to Left lower extremity. Minimal improvement in Right lower extremity ulcerations. He states that he has been doing changes as recommended Objective Data Objective Data Vital Signs: Vital Signs Temp Pulse Resp BP O2 Del Method 97.7 F L 108 H 16 135/80 H Room Air 12/21/21 08:06 12/21/21 08:06 12/21/21 08:06 12/21/21 08:06 12/21/21 08:06 Oxygen Delivery Method Room Air Charges/Coding Procedures Integumentary 111xxx-113xx: 86617 Jannie subq tissue 20 sq cm/< 150xxx-152xx: [id number] Skin sub graft trnk/arm/leg Physical Exam Const alert, oriented x3 and no apparent distress General Appearance: cooperative, comfortable and well developed Orientation / Consciousness: awake HEENT normocephalic, head/scalp atraumatic and hearing grossly normal bilaterally Eyes General Eye: normal appearance of both eyes Neck full ROM and supple General: normal visual inspection Resp normal respiratory effort Effort and Inspection: able to speak in complete sentences Extremity full ROM General Extremity: edema Skin Wounds: wounds noted Neuro oriented x3, CN's II-XII intact bilaterally, moves all extremities and no focal motor deficits Psych mental status grossly normal Appearance: grossly normal Attitude: calm Activity / Motor Behavior: appropriate eye contact Debridement Note Debridement Note Wound debrided: Right Lower Extremity ( superior ) Type of Debridement: Excisional debridement Anesthesia Used: 4% Lidocaine Solution Depth: Down to and including healthy tissue Percentage of wound debrided: 100 Instrument Used: 5mm curette Tissue Removed: Slough and devitalized tissue Severity: Fat Layer Exposed Amount of bleeding with debridement: Mild Bleeding Controlled with: Pressure Patient tolerated procedure: Patient tolerated procedure well Post-Debridement Measurements and Additional Note: Post-Debridement Measurements/Treatment - Nurse 1 - General Ulcer Assessment Start: 11/30/21 08:44 Freq: Status: Active Protocol: CHAPARRITA Activity Type Activity Date Activity User E-sign Co-sign Detail Recorded Client Recorded Date Recorded By Document 11/30/21 08:47 KR Desktop 11/30/21 08:57 KR Document 12/07/21 08:07 DL [id number] 12/07/21 08:18 DL Document 12/11/21 08:26 KR [id number] 12/11/21 08:27 KR Document 12/14/21 08:42 BM [id number] 12/14/21 08:56 BMF Document 12/18/21 08:03 KR [id number] 12/18/21 08:04 KR Document 12/21/21 08:06 BMF [id number] 12/21/21 08:23 BMF 11/30/21 12/07/21 12/11/21 08:47 08:07 08:26 - Today's Visit Information Type of service Follow-up Visit Follow-up Visit Nurse-only (Physician/BARREL BRIDGE ASSEMBLER (Physician/BARREL BRIDGE ASSEMBLER Visit ) ) Arrival Mode Ambulatory Ambulatory Ambulatory Transfer Assistance None Accompanied by Patient Identification Verified (Name & Yes Yes ) Patient Requires Transmission-Based No Precautions Finger Stick Blood Sugar(mg/dl) (if indicated): Blood Sugar Vital Signs Temperature (97.8 F-99.1 F) 97.1 F L 96.6 F L 97.0 F L Temperature Source Temporal Temporal Temporal Pulse Rate (60-100) 77 87 78 Pulse Location Monitor Monitor Monitor Respiratory Rate (12-18) 20 H Respiratory rate source Observation Oxygen Delivery Method Blood Pressure (90/60-120/80) 146/88 H 145/73 H 132/78 H Blood Pressure Mean (mm Hg) 107 97 96 Source Monitor Monitor Monitor Position Sitting Semi-Fowlers Blood Pressure Location Right Arm Left Arm History Since Last Visit- (Skip if this is Patient's initial visit) Have you changed medications since your No No No last visit? Any new allergies or adverse reactions No No No Had a fall/change in ADL's that may No No No increase risk of falls Signs or symptoms of abuse and/or No No No neglect since last visit Have you been in the hospital since your No No No last visit? Has dressing in place as prescribed Yes Yes Yes Has compression in place as prescribed Yes Yes Yes Has offloadiing in place as prescribed N/A N/A N/A Experienced any changes in pain level or No No No management Left Footwear Regular Shoe Regular Shoe Right Footwear Regular Shoe Regular Shoe Other Footwear Pain Scale: 0-10 Numeric Is Patient Pain Free? Yes Yes Yes 12/14/21 12/18/21 12/21/21 08:42 08:03 08:06 WC - Today's Visit Information Type of service Follow-up Visit Nurse-only Follow-up Visit (Physician/BARREL BRIDGE ASSEMBLER Visit (Physician/BARREL BRIDGE ASSEMBLER ) ) Arrival Mode Ambulatory Ambulatory Ambulatory Transfer Assistance None None Accompanied by girlfriend Patient Identification Verified (Name & Yes Yes Yes ) Patient Requires Transmission-Based No No Precautions Finger Stick Blood Sugar(mg/dl) (if 78 indicated): Blood Sugar Stated by Patient Vital Signs Temperature (97.8 F-99.1 F) 96.8 F L 96.8 F L 97.7 F L Temperature Source Temporal Temporal Temporal Pulse Rate (60-100) 94 96 108 H Pulse Location Monitor Monitor Monitor Respiratory Rate (12-18) 16 16 Respiratory rate source Observation Observation Oxygen Delivery Method Room Air Room Air Blood Pressure (90/60-120/80) 105/62 127/65 H 135/80 H Blood Pressure Mean (mm Hg) 76 85 98 Source Monitor Monitor Monitor Position Sitting Semi-Fowlers Sitting Blood Pressure Location Left Arm Right Arm Left Arm History Since Last Visit- (Skip if this is Patient's initial visit) Have you changed medications since your No No No last visit? Any new allergies or adverse reactions No No No Had a fall/change in ADL's that may No No No increase risk of falls Signs or symptoms of abuse and/or No No No neglect since last visit Have you been in the hospital since your No No No last visit? Has dressing in place as prescribed Yes Yes Yes Has compression in place as prescribed Yes Yes Yes Has offloadiing in place as prescribed N/A N/A N/A Experienced any changes in pain level or No No No management Left Footwear Other Footwear Regular Shoe Slipper (Comment) Right Footwear Other Footwear Surgical Shoe Slipper (Comment) with pressure relief insole Other Footwear non skid socks Pain Scale: 0-10 Numeric Is Patient Pain Free? Yes Yes Yes WC - Nurse 1 - General Ulcer Measurement Start: 11/30/21 08:44 Freq: Status: Active Protocol: Activity Type Activity Date Activity User E-sign Co-sign Detail Recorded Client Recorded Date Recorded By Document 11/30/21 08:47 KR Desktop 11/30/21 08:57 KR Document 12/07/21 08:07 DL [id number] 12/07/21 08:18 DL Document 12/14/21 08:42 BMF [id number] 12/14/21 08:56 BMF Document 12/21/21 08:06 BMF [id number] 12/21/21 08:23 BMF 11/30/21 12/07/21 12/14/21 08:47 08:07 08:42 Wound Center Nurse 1 #7 R Inf. LE -Combined with other wound No -Current Size (cm) - Length 2.4 2.6 2.2 -Current Size (cm) - Width 0.5 0.7 1.1 -Current Size (cm) - Depth 0.2 0.2 0.2 -Total Square Cm 1.20 1.82 2.42 -Date of Last Picture (Recall this field) -Photo Taken No No -Epithelialization None Present -Tunneling No -Undermining/Tunneling No -Circular Undermining No -Exudate Amt Medium Medium Medium -Exudate Type Yellow/Green Serosanguineous Serosanguineous -Wound Margin Distinct, Distinct, Distinct, Outline Outline Outline Attached Attached Attached -Granulation Amt None Present (0 Medium (34-66%) None Present (0 %) %) -Granulation Quality [place] -Slough/Fibrin Yes -Necrosis Amt Large (67-100%) Medium (34-66%) Large (67-100%) -Necrotic Tissue Type Adherent Slough Adherent Slough Adherent Slough -Structure Exposed N/A -Texture (Ana-wound Skin Appearance) Assessed, Scarring Assessed, Scarring Scarring -Moisture (Ana-wound Skin Appearance) No Abnormality, No Abnormality Assessed, Assessed Maceration,Dry/ Scaly -Color (Ana-wound Skin Appearance) No Abnormality, Hemosiderin Assessed Assessed Staining -Temperature (Ana-wound Skin No Abnormality No Abnormality No Abnormality Appearance) (Pt Warm) (Pt Warm) (Pt Warm) -Tenderness on Palpation (Ana-wound No No Yes Skin Appearance) -Ulcer Cleansing Soap and Water Soap and Water Soap and Water -Foul Odor after Cleansing No No -Anesthetic Used 4% Lidocaine 4% Lidocaine 4% Lidocaine Solution Solution Solution #6 R Sup LE -Combined with other wound No -Current Size (cm) - Length 3.7 3.3 3.6 -Current Size (cm) - Width 3.5 3 2.7 -Current Size (cm) - Depth 0.2 0.1 0.2 -Total Square Cm 12.95 9.9 9.72 -Date of Last Picture (Recall this field) -Photo Taken No No -Epithelialization Small 1-33% -Tunneling No -Undermining/Tunneling No -Circular Undermining No -Exudate Amt Medium Medium Medium -Exudate Type Serosanguineous Serosanguineous -Wound Margin Distinct, Distinct, Flat & Intact Outline Outline Attached Attached -Granulation Amt Medium (34-66%) None Present (0 Large (67-100%) %) -Granulation Quality Red Red -Slough/Fibrin Yes -Necrosis Amt Medium (34-66%) Large (67-100%) Small (1-33%) -Necrotic Tissue Type Adherent Slough Adherent Slough Adherent Slough -Structure Exposed N/A -Texture (Ana-wound Skin Appearance) Assessed, Scarring Assessed, Scarring Fluctuance -Moisture (Ana-wound Skin Appearance) No Abnormality, No Abnormality Assessed, Assessed Maceration -Color (Ana-wound Skin Appearance) No Abnormality, Hemosiderin Assessed, Assessed Staining Erythema -Temperature (Ana-wound Skin No Abnormality No Abnormality No Abnormality Appearance) (Pt Warm) (Pt Warm) (Pt Warm) -Tenderness on Palpation (Ana-wound No No Yes Skin Appearance) -Ulcer Cleansing Soap and Water Soap and Water Soap and Water -Foul Odor after Cleansing No No Yes, Due to Product Use -Anesthetic Used 4% Lidocaine 4% Lidocaine 4% Lidocaine Solution Solution Solution #5 R Dorsal -Combined with other wound No -Current Size (cm) - Length 1.4 1.4 1.5 -Current Size (cm) - Width 1.4 1.4 1.2 -Current Size (cm) - Depth 0.2 0.2 0.3 -Total Square Cm 1.96 1.96 1.80 -Date of Last Picture (Recall this field) -Photo Taken No No -Epithelialization None Present -Tunneling No -Undermining/Tunneling No -Circular Undermining No -Exudate Amt Small Medium Medium -Exudate Type Serosanguineous Serosanguineous Serosanguineous -Wound Margin Distinct, Distinct, Outline Outline Attached Attached -Granulation Amt Medium (34-66%) None Present (0 None Present (0 %) %) -Granulation Quality [place] -Slough/Fibrin Yes -Necrosis Amt Medium (34-66%) Large (67-100%) Large (67-100%) -Necrotic Tissue Type Adherent Slough Adherent Slough Adherent Slough -Structure Exposed N/A -Texture (Ana-wound Skin Appearance) Assessed, Scarring Assessed, Scarring Scarring -Moisture (Ana-wound Skin Appearance) No Abnormality, No Abnormality Assessed, Assessed Maceration -Color (Ana-wound Skin Appearance) No Abnormality, Hemosiderin Assessed Assessed,Not Staining Assessed -Temperature (Ana-wound Skin No Abnormality No Abnormality No Abnormality Appearance) (Pt Warm) (Pt Warm) (Pt Warm) -Tenderness on Palpation (Ana-wound No No Yes Skin Appearance) -Ulcer Cleansing Soap and Water Soap and Water Soap and Water -Foul Odor after Cleansing No No No -Anesthetic Used 4% Lidocaine 4% Lidocaine 4% Lidocaine Solution Solution Solution #4 L Med Cluster -Combined with other wound No -Current Size (cm) - Length 13 12.9 13 -Current Size (cm) - Width 4 3.2 4 -Current Size (cm) - Depth 0.2 0.2 0.2 -Total Square Cm 52 41.28 52 -Date of Last Picture (Recall this field) -Photo Taken No No -Epithelialization Small 1-33% -Tunneling No -Undermining/Tunneling No -Circular Undermining No -Exudate Amt Medium Medium Medium -Exudate Type Serosanguineous Serosanguineous Serosanguineous -Wound Margin Distinct, Distinct, Distinct, Outline Outline Outline Attached Attached Attached -Granulation Amt None Present (0 None Present (0 Small (1-33%) %) %) -Granulation Quality [place] -Slough/Fibrin Yes -Necrosis Amt Large (67-100%) Large (67-100%) Large (67-100%) -Necrotic Tissue Type Adherent Slough Adherent Slough Adherent Slough -Structure Exposed N/A -Texture (Ana-wound Skin Appearance) Assessed, Scarring Assessed, Scarring Scarring -Moisture (Ana-wound Skin Appearance) No Abnormality, No Abnormality Assessed, Assessed Maceration,Dry/ Scaly -Color (Aan-wound Skin Appearance) No Abnormality, Hemosiderin Assessed Assessed Staining -Temperature (Ana-wound Skin No Abnormality No Abnormality No Abnormality Appearance) (Pt Warm) (Pt Warm) (Pt Warm) -Tenderness on Palpation (Ana-wound No No Yes Skin Appearance) -Ulcer Cleansing Soap and Water Soap and Water Soap and Water -Foul Odor after Cleansing No No No -Anesthetic Used 4% Lidocaine 4% Lidocaine 4% Lidocaine Solution Solution Solution #3 L Lat heel -Combined with other wound No -Current Size (cm) - Length 0.4 0.1 0.8 -Current Size (cm) - Width 0.3 0.1 0.5 -Current Size (cm) - Depth 0.2 0.1 0.1 -Total Square Cm 0.12 0.01 0.40 -Date of Last Picture (Recall this field) -Photo Taken No No -Epithelialization None Present -Tunneling No -Undermining/Tunneling No -Circular Undermining No -Exudate Amt Medium Small Small -Exudate Type Serosanguineous Serosanguineous Serosanguineous -Wound Margin Distinct, Distinct, Distinct, Outline Outline Outline Attached Attached Attached -Granulation Amt None Present (0 Small (1-33%) Large (67-100%) %) -Granulation Quality [place] Red -Slough/Fibrin Yes -Necrosis Amt Large (67-100%) None Present (0 Small (1-33%) %) -Necrotic Tissue Type Adherent Slough Adherent Slough -Structure Exposed N/A -Texture (Ana-wound Skin Appearance) Assessed, Scarring Assessed, Scarring Scarring -Moisture (Ana-wound Skin Appearance) No Abnormality, No Abnormality Assessed Assessed -Color (Ana-wound Skin Appearance) No Abnormality, Hemosiderin Assessed, Assessed Staining Erythema -Temperature (Ana-wound Skin No Abnormality No Abnormality No Abnormality Appearance) (Pt Warm) (Pt Warm) (Pt Warm) -Tenderness on Palpation (Ana-wound No No Yes Skin Appearance) -Ulcer Cleansing Soap and Water Soap and Water Soap and Water -Foul Odor after Cleansing No No No -Anesthetic Used 4% Lidocaine 4% Lidocaine 4% Lidocaine Solution Solution Solution #2 L 3rd toe -Combined with other wound No -Current Size (cm) - Length 1 1 1 -Current Size (cm) - Width 0.5 0.3 0.6 -Current Size (cm) - Depth 0.2 0.1 0.1 -Total Square Cm 0.5 0.3 0.6 -Date of Last Picture (Recall this field) -Photo Taken No No -Epithelialization None Present -Tunneling No -Undermining/Tunneling No -Circular Undermining No -Exudate Amt Medium Medium Small -Exudate Type Serosanguineous Serosanguineous Serosanguineous -Wound Margin Distinct, Distinct, Distinct, Outline Outline Outline Attached Attached Attached -Granulation Amt None Present (0 None Present (0 None Present (0 %) %) %) -Slough/Fibrin Yes -Necrosis Amt Large (67-100%) Large (67-100%) Large (67-100%) -Necrotic Tissue Type Adherent Slough Adherent Slough Adherent Slough -Structure Exposed N/A -Texture (Ana-wound Skin Appearance) Assessed, Scarring Assessed, Scarring Scarring -Moisture (Ana-wound Skin Appearance) No Abnormality, No Abnormality Assessed, Assessed Maceration -Color (Ana-wound Skin Appearance) No Abnormality, Hemosiderin Assessed, Assessed Staining Erythema -Temperature (Ana-wound Skin No Abnormality No Abnormality No Abnormality Appearance) (Pt Warm) (Pt Warm) (Pt Warm) -Tenderness on Palpation (Ana-wound No Yes Skin Appearance) -Ulcer Cleansing Soap and Water Soap and Water Soap and Water -Foul Odor after Cleansing No No No -Anesthetic Used 4% Lidocaine 4% Lidocaine 4% Lidocaine Solution Solution Solution #1 L Hallux -Combined with other wound No -Current Size (cm) - Length 1.5 2 2 -Current Size (cm) - Width 1 0.1 1.3 -Current Size (cm) - Depth 0.1 0.1 0.1 -Total Square Cm 1.5 0.2 2.6 -Date of Last Picture (Recall this field) -Photo Taken No No -Epithelialization None Present -Tunneling No -Undermining/Tunneling No -Circular Undermining No -Exudate Amt Medium Medium Small -Exudate Type Serosanguineous Serosanguineous Serous -Wound Margin Distinct, Distinct, Outline Outline Attached Attached -Granulation Amt None Present (0 None Present (0 None Present (0 %) %) %) -Slough/Fibrin Yes -Necrosis Amt Large (67-100%) Large (67-100%) Large (67-100%) -Necrotic Tissue Type Adherent Slough Adherent Slough Adherent Slough -Structure Exposed N/A -Texture (Ana-wound Skin Appearance) Assessed, Scarring Assessed, Scarring Scarring -Moisture (Ana-wound Skin Appearance) No Abnormality, No Abnormality Assessed, Assessed Maceration -Color (Ana-wound Skin Appearance) No Abnormality, Hemosiderin Assessed, Assessed Staining Erythema -Temperature (Ana-wound Skin No Abnormality No Abnormality No Abnormality Appearance) (Pt Warm) (Pt Warm) (Pt Warm) -Tenderness on Palpation (Ana-wound No No Yes Skin Appearance) -Ulcer Cleansing Soap and Water Soap and Water Soap and Water -Foul Odor after Cleansing No No No -Anesthetic Used 4% Lidocaine 4% Lidocaine 4% Lidocaine Solution Solution Solution Lower Limb Edema Present Yes Right Calf (cm) 35.9 32.1 Right Ankle (cm) 22.5 21.5 Left Calf (cm) 38.9 32.3 Point of measurement (cm from the medial 24.3 instep) Left Ankle (cm) 24 12/21/21 08:06 Wound Center Nurse 1 #7 R Inf. LE -Combined with other wound No -Current Size (cm) - Length 2.6 -Current Size (cm) - Width 1.7 -Current Size (cm) - Depth 0.2 -Total Square Cm 4.42 -Date of Last Picture (Recall this 12/21/21 field) -Photo Taken Yes -Epithelialization None Present -Tunneling No -Undermining/Tunneling No -Circular Undermining No -Exudate Amt Medium -Exudate Type Serous -Wound Margin Distinct, Outline Attached -Granulation Amt None Present (0 %) -Granulation Quality -Slough/Fibrin Yes -Necrosis Amt Large (67-100%) -Necrotic Tissue Type Adherent Slough -Structure Exposed -Texture (Ana-wound Skin Appearance) Assessed, Scarring -Moisture (Ana-wound Skin Appearance) Assessed -Color (Ana-wound Skin Appearance) Assessed -Temperature (Ana-wound Skin No Abnormality Appearance) (Pt Warm) -Tenderness on Palpation (Ana-wound No Skin Appearance) -Ulcer Cleansing Soap and Water -Foul Odor after Cleansing No -Anesthetic Used 4% Lidocaine Solution #6 R Sup LE -Combined with other wound No -Current Size (cm) - Length 3.5 -Current Size (cm) - Width 2.5 -Current Size (cm) - Depth 0.2 -Total Square Cm 8.75 -Date of Last Picture (Recall this 12/21/21 field) -Photo Taken Yes -Epithelialization None Present -Tunneling No -Undermining/Tunneling No -Circular Undermining No -Exudate Amt Large -Exudate Type Serosanguineous -Wound Margin Distinct, Outline Attached -Granulation Amt Medium (34-66%) -Granulation Quality Red -Slough/Fibrin Yes -Necrosis Amt Medium (34-66%) -Necrotic Tissue Type Adherent Slough -Structure Exposed -Texture (Ana-wound Skin Appearance) Assessed, Scarring -Moisture (Ana-wound Skin Appearance) Assessed -Color (Ana-wound Skin Appearance) Assessed -Temperature (Ana-wound Skin No Abnormality Appearance) (Pt Warm) -Tenderness on Palpation (Ana-wound No Skin Appearance) -Ulcer Cleansing Soap and Water -Foul Odor after Cleansing No -Anesthetic Used 4% Lidocaine Solution #5 R Dorsal -Combined with other wound No -Current Size (cm) - Length 1.8 -Current Size (cm) - Width 1.4 -Current Size (cm) - Depth 0.3 -Total Square Cm 2.52 -Date of Last Picture (Recall this 12/21/21 field) -Photo Taken Yes -Epithelialization None Present -Tunneling No -Undermining/Tunneling No -Circular Undermining No -Exudate Amt Medium -Exudate Type Serous -Wound Margin Distinct, Outline Attached -Granulation Amt None Present (0 %) -Granulation Quality -Slough/Fibrin Yes -Necrosis Amt Large (67-100%) -Necrotic Tissue Type Adherent Slough -Structure Exposed -Texture (Ana-wound Skin Appearance) Assessed, Scarring -Moisture (Ana-wound Skin Appearance) Assessed, Maceration -Color (Ana-wound Skin Appearance) Assessed, Erythema,Palor -Temperature (Ana-wound Skin No Abnormality Appearance) (Pt Warm) -Tenderness on Palpation (Ana-wound No Skin Appearance) -Ulcer Cleansing Soap and Water -Foul Odor after Cleansing No -Anesthetic Used 4% Lidocaine Solution #4 L Med Cluster -Combined with other wound No -Current Size (cm) - Length 10.9 -Current Size (cm) - Width 4.1 -Current Size (cm) - Depth 0.2 -Total Square Cm 44.69 -Date of Last Picture (Recall this 12/21/21 field) -Photo Taken Yes -Epithelialization Small 1-33% -Tunneling No -Undermining/Tunneling No -Circular Undermining No -Exudate Amt Medium -Exudate Type Serosanguineous -Wound Margin Distinct, Outline Attached -Granulation Amt Small (1-33%) -Granulation Quality Red -Slough/Fibrin Yes -Necrosis Amt Large (67-100%) -Necrotic Tissue Type Adherent Slough -Structure Exposed -Texture (Ana-wound Skin Appearance) Assessed, Scarring -Moisture (Ana-wound Skin Appearance) Assessed,Dry/ Scaly -Color (Ana-wound Skin Appearance) Assessed -Temperature (Ana-wound Skin No Abnormality Appearance) (Pt Warm) -Tenderness on Palpation (Ana-wound No Skin Appearance) -Ulcer Cleansing Soap and Water -Foul Odor after Cleansing No -Anesthetic Used 4% Lidocaine Solution #3 L Lat heel -Combined with other wound No -Current Size (cm) - Length 0.4 -Current Size (cm) - Width 0.4 -Current Size (cm) - Depth 0.2 -Total Square Cm 0.16 -Date of Last Picture (Recall this 12/21/21 field) -Photo Taken Yes -Epithelialization None Present -Tunneling No -Undermining/Tunneling No -Circular Undermining No -Exudate Amt Small -Exudate Type Serosanguineous -Wound Margin Distinct, Outline Attached -Granulation Amt Large (67-100%) -Granulation Quality Red -Slough/Fibrin Yes -Necrosis Amt Small (1-33%) -Necrotic Tissue Type Eschar -Structure Exposed -Texture (Ana-wound Skin Appearance) Assessed, Scarring -Moisture (Ana-wound Skin Appearance) Assessed -Color (Ana-wound Skin Appearance) Assessed, Erythema -Temperature (Ana-wound Skin No Abnormality Appearance) (Pt Warm) -Tenderness on Palpation (Ana-wound No Skin Appearance) -Ulcer Cleansing Soap and Water -Foul Odor after Cleansing No -Anesthetic Used 4% Lidocaine Solution #2 L 3rd toe -Combined with other wound No -Current Size (cm) - Length 1 -Current Size (cm) - Width 0.5 -Current Size (cm) - Depth 0.1 -Total Square Cm 0.5 -Date of Last Picture (Recall this 12/21/21 field) -Photo Taken Yes -Epithelialization None Present -Tunneling No -Undermining/Tunneling No -Circular Undermining No -Exudate Amt Small -Exudate Type Serous -Wound Margin Distinct, Outline Attached -Granulation Amt None Present (0 %) -Slough/Fibrin Yes -Necrosis Amt Large (67-100%) -Necrotic Tissue Type Adherent Slough -Structure Exposed -Texture (Ana-wound Skin Appearance) Assessed, Scarring -Moisture (Ana-wound Skin Appearance) Assessed -Color (Ana-wound Skin Appearance) Assessed, Erythema -Temperature (Ana-wound Skin No Abnormality Appearance) (Pt Warm) -Tenderness on Palpation (Ana-wound No Skin Appearance) -Ulcer Cleansing Soap and Water -Foul Odor after Cleansing No -Anesthetic Used 4% Lidocaine Solution #1 L Hallux -Combined with other wound No -Current Size (cm) - Length 2 -Current Size (cm) - Width 1.2 -Current Size (cm) - Depth 0.1 -Total Square Cm 2.4 -Date of Last Picture (Recall this 12/21/21 field) -Photo Taken Yes -Epithelialization None Present -Tunneling No -Undermining/Tunneling No -Circular Undermining No -Exudate Amt Medium -Exudate Type Serous -Wound Margin Distinct, Outline Attached -Granulation Amt None Present (0 %) -Slough/Fibrin Yes -Necrosis Amt Large (67-100%) -Necrotic Tissue Type Adherent Slough -Structure Exposed -Texture (Ana-wound Skin Appearance) Assessed, Scarring -Moisture (Ana-wound Skin Appearance) Assessed, Maceration -Color (Ana-wound Skin Appearance) Assessed, Erythema,Palor -Temperature (Ana-wound Skin No Abnormality Appearance) (Pt Warm) -Tenderness on Palpation (Ana-wound No Skin Appearance) -Ulcer Cleansing Soap and Water -Foul Odor after Cleansing No -Anesthetic Used 4% Lidocaine Solution Lower Limb Edema Present Yes Right Calf (cm) 33 Right Ankle (cm) 22.4 Left Calf (cm) 32.8 Point of measurement (cm from the medial instep) Left Ankle (cm) 24.3 WC - Nurse 2 - General Ulcer CM Notes Start: 11/30/21 08:44 Freq: Status: Active Protocol: Activity Type Activity Date Activity User E-sign Co-sign Detail Recorded Client Recorded Date Recorded By Document 11/30/21 09:35 MW [id number] 11/30/21 09:49 MW Edit Result 11/30/21 09:35 MW (1) [id number] 12/01/21 06:43 PL Document 12/07/21 08:23 MW [id number] 12/07/21 08:47 MW Document 12/14/21 09:16 MW [id number] 12/14/21 09:34 MW Edit Result 12/14/21 09:16 MW (2) [id number] 12/15/21 06:33 PL Document 12/21/21 08:31 MW [id number] 12/21/21 09:08 MW Edit Result 12/21/21 08:31 MW (3) [id number] 12/21/21 09:09 MW (1) #7 R Inf. LE - Debridement, SubQ, ea addt'l 20sq cm => 3 or part thereof (2) #4 L Med Cluster - Epifix Mesh (per sq cm) 13 => 11 (3) #4 L Med Cluster - Apply Skin Sub - 1st 25 sq cm - Legs => 1 11/30/21 12/07/21 12/14/21 09:35 08:23 09:16 Wound Center Nurse 2 #7 R Inf. LE -Time 09:38 08:24 09:16 -Correct Patient Yes Yes Yes -Correct Side, Site, Position Yes Yes Yes -Correct Procedure Yes Yes Yes -Procedure Performed Yes Yes Yes -Type of Procedure Debridement Debridement Debridement -Clinical Debridement Subcutaneous Subcutaneous Subcutaneous -Tissue Removed Subcutaneous Subcutaneous Subcutaneous -Post Debridement (cm) - Length 2.9 3.0 2.4 -Post Debridement (cm) - Width 0.9 0.9 1.0 -Post Debridement (cm) - Depth 0.2 0.2 0.2 -Total Square (Post) (cm) 2.61 2.70 2.40 -Area of Debridement (cm) - Length 2.9 3.0 2.4 -Area of Debridement (cm) - Width 0.9 0.9 1.0 -Total Square (Area) (cm) 2.61 2.70 2.40 -Tunneling No No No -Undermining/Tunneling No No No -Circular Undermining No No No -Wound/Ulcer Outcome Not Healed Not Healed Not Healed -Ulcer Cleansing Rinsed/ Rinsed/ Rinsed/ Irrigated with Irrigated with Irrigated with Saline Saline Saline -Foul Odor after Cleansing No No No -Bioengineered Tissue No No No -Bleeding Controlled with Pressure Pressure Pressure -Treatment Response Procedure Procedure Procedure Tolerated Well Tolerated Well Tolerated Well -Offloading No No No -Debridement - Subq, 1st 20sq cm Yes Yes Yes -Debridement, SubQ, ea addt'l 20sq cm 3 or part thereof #6 R Sup LE -Time 09:39 08:24 09:17 -Correct Patient Yes Yes Yes -Correct Side, Site, Position Yes Yes Yes -Correct Procedure Yes Yes Yes -Procedure Performed Yes Yes Yes -Type of Procedure Debridement Debridement Debridement -Clinical Debridement Subcutaneous Subcutaneous Subcutaneous -Tissue Removed Subcutaneous Subcutaneous Subcutaneous -Post Debridement (cm) - Length 3.5 3.6 3.6 -Post Debridement (cm) - Width 3.3 2.8 1.3 -Post Debridement (cm) - Depth 0.1 0.1 0.2 -Total Square (Post) (cm) 11.55 10.08 4.68 -Area of Debridement (cm) - Length 3.5 3.6 3.6 -Area of Debridement (cm) - Width 3.3 2.8 1.3 -Total Square (Area) (cm) 11.55 10.08 4.68 -Tunneling No No No -Undermining/Tunneling No No No -Circular Undermining No No No -Wound/Ulcer Outcome Not Healed Not Healed Not Healed -Ulcer Cleansing Rinsed/ Rinsed/ Rinsed/ Irrigated with Irrigated with Irrigated with Saline Saline Saline -Foul Odor after Cleansing No No No -Bioengineered Tissue No No No -Bleeding Controlled with Pressure Pressure Pressure -Treatment Response Procedure Procedure Procedure Tolerated Well Tolerated Well Tolerated Well -Offloading No No No -Debridement - Subq, 1st 20sq cm No No No #5 R Dorsal -Time 08:24 09:18 -Correct Patient Yes Yes Yes -Correct Side, Site, Position Yes Yes Yes -Correct Procedure Yes Yes Yes -Procedure Performed Yes Yes Yes -Type of Procedure Debridement Debridement Debridement -Clinical Debridement Subcutaneous Subcutaneous Subcutaneous -Tissue Removed Subcutaneous Subcutaneous Subcutaneous -Post Debridement (cm) - Length 1.9 1.5 1.5 -Post Debridement (cm) - Width 1.3 1.3 1.3 -Post Debridement (cm) - Depth 0.2 0.2 0.2 -Total Square (Post) (cm) 2.47 1.95 1.95 -Area of Debridement (cm) - Length 1.9 1.5 1.5 -Area of Debridement (cm) - Width 1.3 1.3 1.3 -Total Square (Area) (cm) 2.47 1.95 1.95 -Tunneling No No No -Undermining/Tunneling No No No -Circular Undermining No No No -Wound/Ulcer Outcome Not Healed Not Healed Not Healed -Ulcer Cleansing Rinsed/ Rinsed/ Rinsed/ Irrigated with Irrigated with Irrigated with Saline Saline Saline -Foul Odor after Cleansing No No No -Bioengineered Tissue No No No -Bleeding Controlled with Pressure Pressure Pressure -Treatment Response Procedure Procedure Procedure Tolerated Well Tolerated Well Tolerated Well -Offloading No No No -Debridement - Subq, 1st 20sq cm No No No #4 L Med Cluster -Time 08:25 09:18 -Correct Patient Yes Yes Yes -Correct Side, Site, Position Yes Yes Yes -Correct Procedure Yes Yes Yes -Procedure Performed Yes Yes Yes -Type of Procedure Debridement Debridement Debridement -Clinical Debridement Subcutaneous Subcutaneous Subcutaneous -Tissue Removed Subcutaneous Subcutaneous Subcutaneous -Post Debridement (cm) - Length 13.0 13.0 13.0 -Post Debridement (cm) - Width 4.0 3.5 3.5 -Post Debridement (cm) - Depth 0.1 0.2 0.2 -Total Square (Post) (cm) 52.00 45.50 45.50 -Area of Debridement (cm) - Length 13.0 13.0 13.0 -Area of Debridement (cm) - Width 4.0 3.5 3.5 -Total Square (Area) (cm) 52.00 45.50 45.50 -Tunneling No No No -Undermining/Tunneling No No No -Circular Undermining No No No -Wound/Ulcer Outcome Not Healed Not Healed Not Healed -Ulcer Cleansing Rinsed/ Rinsed/ Rinsed/ Irrigated with Irrigated with Irrigated with Saline Saline Saline -Foul Odor after Cleansing No No No -Bioengineered Tissue No Yes Yes -Type of Bioengineered Tissue Epifix Mesh Epifix Mesh -Expiration Date 09/29/26 09/29/26 -Product Lot Number [id number] -Percent Used 100 100 -Lot number of Saline Used [id number] -Bleeding Controlled with Pressure Pressure Pressure -Treatment Response Procedure Procedure Procedure Tolerated Well Tolerated Well Tolerated Well -Offloading No No No -Debridement - Subq, 1st 20sq cm No No No -Apply Skin Sub - 1st 25 sq cm - Legs 1 1 -Epifix Mesh (per sq cm) 11 11 #3 L Lat heel -Time 09:40 08:25 09:19 -Correct Patient Yes Yes Yes -Correct Side, Site, Position Yes Yes Yes -Correct Procedure Yes Yes Yes -Procedure Performed Yes Yes Yes -Type of Procedure Debridement Debridement Debridement -Clinical Debridement Subcutaneous Subcutaneous Subcutaneous -Tissue Removed Subcutaneous Subcutaneous Subcutaneous -Post Debridement (cm) - Length 0.4 0.4 0.4 -Post Debridement (cm) - Width 0.3 0.3 0.3 -Post Debridement (cm) - Depth 0.1 0.1 0.1 -Total Square (Post) (cm) 0.12 0.12 0.12 -Area of Debridement (cm) - Length 0.4 0.4 0.4 -Area of Debridement (cm) - Width 0.3 0.3 0.3 -Total Square (Area) (cm) 0.12 0.12 0.12 -Tunneling No No No -Undermining/Tunneling No No No -Circular Undermining No No No -Wound/Ulcer Outcome Not Healed Not Healed Not Healed -Ulcer Cleansing Rinsed/ Rinsed/ Rinsed/ Irrigated with Irrigated with Irrigated with Saline Saline Saline -Foul Odor after Cleansing No No No -Bioengineered Tissue No No No -Bleeding Controlled with Pressure Pressure Pressure -Treatment Response Procedure Procedure Procedure Tolerated Well Tolerated Well Tolerated Well -Offloading No No No -Debridement - Subq, 1st 20sq cm No No No #2 L 3rd toe -Time : 08:25 09:19 -Correct Patient Yes Yes Yes -Correct Side, Site, Position Yes Yes Yes -Correct Procedure Yes Yes Yes -Procedure Performed Yes Yes Yes -Type of Procedure Debridement Debridement Debridement -Clinical Debridement Subcutaneous Subcutaneous Subcutaneous -Tissue Removed Subcutaneous Subcutaneous Subcutaneous -Post Debridement (cm) - Length 1.3 1.0 1.0 -Post Debridement (cm) - Width 0.6 0.4 0.5 -Post Debridement (cm) - Depth 0.1 0.1 0.1 -Total Square (Post) (cm) 0.78 0.40 0.50 -Area of Debridement (cm) - Length 1.3 1.0 1.0 -Area of Debridement (cm) - Width 0.6 0.4 0.5 -Total Square (Area) (cm) 0.78 0.40 0.50 -Tunneling No No No -Undermining/Tunneling No No No -Circular Undermining No No No -Wound/Ulcer Outcome Not Healed Not Healed Not Healed -Ulcer Cleansing Rinsed/ Rinsed/ Rinsed/ Irrigated with Irrigated with Irrigated with Saline Saline Saline -Foul Odor after Cleansing No No No -Bioengineered Tissue No No No -Bleeding Controlled with Pressure Pressure Pressure -Treatment Response Procedure Procedure Procedure Tolerated Well Tolerated Well Tolerated Well -Offloading No No No -Debridement - Subq, 1st 20sq cm No No No #1 L Hallux -Time : 08:26 09:20 -Correct Patient Yes Yes Yes -Correct Side, Site, Position Yes Yes Yes -Correct Procedure Yes Yes Yes -Procedure Performed Yes Yes Yes -Type of Procedure Debridement Debridement Debridement -Clinical Debridement Subcutaneous Subcutaneous Subcutaneous -Tissue Removed Subcutaneous Subcutaneous Subcutaneous -Post Debridement (cm) - Length 1.3 2.0 1.8 -Post Debridement (cm) - Width 1.1 1.2 1.1 -Post Debridement (cm) - Depth 0.3 0.1 0.1 -Total Square (Post) (cm) 1.43 2.40 1.98 -Area of Debridement (cm) - Length 1.3 2.0 1.8 -Area of Debridement (cm) - Width 1.1 1.2 1.1 -Total Square (Area) (cm) 1.43 2.40 1.98 -Tunneling No No No -Undermining/Tunneling No No No -Circular Undermining No No No -Wound/Ulcer Outcome Not Healed Not Healed Not Healed -Ulcer Cleansing Rinsed/ Rinsed/ Rinsed/ Irrigated with Irrigated with Irrigated with Saline Saline Saline -Foul Odor after Cleansing No No No -Bioengineered Tissue No No No -Bleeding Controlled with Pressure Pressure Pressure -Treatment Response Procedure Procedure Procedure Tolerated Well Tolerated Well Tolerated Well -Offloading No No -Debridement - Subq, 1st 20sq cm No No No Pain Scale: 0-10 Numeric Is Patient Pain Free? Yes Yes Yes 12/21/21 08:31 Wound Center Nurse 2 #7 R Inf. LE -Time 08:31 -Correct Patient Yes -Correct Side, Site, Position Yes -Correct Procedure Yes -Procedure Performed Yes -Type of Procedure Debridement -Clinical Debridement Subcutaneous -Tissue Removed Subcutaneous -Post Debridement (cm) - Length 3.0 -Post Debridement (cm) - Width 1.2 -Post Debridement (cm) - Depth 0.1 -Total Square (Post) (cm) 3.60 -Area of Debridement (cm) - Length 3.0 -Area of Debridement (cm) - Width 1.2 -Total Square (Area) (cm) 3.60 -Tunneling No -Undermining/Tunneling -Circular Undermining No -Wound/Ulcer Outcome Not Healed -Ulcer Cleansing Rinsed/ Irrigated with Saline -Foul Odor after Cleansing No -Bioengineered Tissue No -Bleeding Controlled with Pressure -Treatment Response Procedure Tolerated Well -Offloading No -Debridement - Subq, 1st 20sq cm Yes -Debridement, SubQ, ea addt'l 20sq cm or part thereof #6 R Sup LE -Time 08:32 -Correct Patient Yes -Correct Side, Site, Position Yes -Correct Procedure Yes -Procedure Performed Yes -Type of Procedure Debridement -Clinical Debridement Subcutaneous -Tissue Removed Subcutaneous -Post Debridement (cm) - Length 3.1 -Post Debridement (cm) - Width 2.3 -Post Debridement (cm) - Depth 0.1 -Total Square (Post) (cm) 7.13 -Area of Debridement (cm) - Length 3.1 -Area of Debridement (cm) - Width 2.3 -Total Square (Area) (cm) 7.13 -Tunneling No -Undermining/Tunneling No -Circular Undermining No -Wound/Ulcer Outcome Not Healed -Ulcer Cleansing Rinsed/ Irrigated with Saline -Foul Odor after Cleansing No -Bioengineered Tissue No -Bleeding Controlled with Pressure -Treatment Response Procedure Tolerated Well -Offloading No -Debridement - Subq, 1st 20sq cm No #5 R Dorsal -Time 08:33 -Correct Patient Yes -Correct Side, Site, Position Yes -Correct Procedure -Procedure Performed Yes -Type of Procedure Debridement -Clinical Debridement Subcutaneous -Tissue Removed Subcutaneous -Post Debridement (cm) - Length 1.5 -Post Debridement (cm) - Width 1.2 -Post Debridement (cm) - Depth 0.3 -Total Square (Post) (cm) 1.80 -Area of Debridement (cm) - Length 1.5 -Area of Debridement (cm) - Width 1.2 -Total Square (Area) (cm) 1.80 -Tunneling No -Undermining/Tunneling No -Circular Undermining No -Wound/Ulcer Outcome Not Healed -Ulcer Cleansing Rinsed/ Irrigated with Saline -Foul Odor after Cleansing No -Bioengineered Tissue No -Bleeding Controlled with Pressure -Treatment Response Procedure Tolerated Well -Offloading No -Debridement - Subq, 1st 20sq cm No #4 L Med Cluster -Time 08:35 -Correct Patient Yes -Correct Side, Site, Position Yes -Correct Procedure Yes -Procedure Performed Yes -Type of Procedure Debridement -Clinical Debridement Subcutaneous -Tissue Removed Subcutaneous -Post Debridement (cm) - Length 12.6 -Post Debridement (cm) - Width 3.8 -Post Debridement (cm) - Depth 0.2 -Total Square (Post) (cm) 47.88 -Area of Debridement (cm) - Length 12.6 -Area of Debridement (cm) - Width 3.8 -Total Square (Area) (cm) 47.88 -Tunneling No -Undermining/Tunneling No -Circular Undermining No -Wound/Ulcer Outcome Not Healed -Ulcer Cleansing Rinsed/ Irrigated with Saline -Foul Odor after Cleansing No -Bioengineered Tissue Yes -Type of Bioengineered Tissue Epifix Mesh -Expiration Date 09/29/26 -Product Lot Number [id number] -Percent Used 100 -Lot number of Saline Used [id number] -Bleeding Controlled with Pressure -Treatment Response Procedure Tolerated Well -Offloading No -Debridement - Subq, 1st 20sq cm No -Apply Skin Sub - 1st 25 sq cm - Legs 1 -Epifix Mesh (per sq cm) 11 #3 L Lat heel -Time 08:35 -Correct Patient Yes -Correct Side, Site, Position Yes -Correct Procedure Yes -Procedure Performed Yes -Type of Procedure Debridement -Clinical Debridement Subcutaneous -Tissue Removed Subcutaneous -Post Debridement (cm) - Length 0.7 -Post Debridement (cm) - Width 0.4 -Post Debridement (cm) - Depth 0.1 -Total Square (Post) (cm) 0.28 -Area of Debridement (cm) - Length 0.7 -Area of Debridement (cm) - Width 0.4 -Total Square (Area) (cm) 0.28 -Tunneling No -Undermining/Tunneling No -Circular Undermining No -Wound/Ulcer Outcome Not Healed -Ulcer Cleansing Rinsed/ Irrigated with Saline -Foul Odor after Cleansing No -Bioengineered Tissue No -Bleeding Controlled with Pressure -Treatment Response Procedure Tolerated Well -Offloading No -Debridement - Subq, 1st 20sq cm No #2 L 3rd toe -Time 08:35 -Correct Patient Yes -Correct Side, Site, Position Yes -Correct Procedure Yes -Procedure Performed Yes -Type of Procedure Debridement -Clinical Debridement Subcutaneous -Tissue Removed Subcutaneous -Post Debridement (cm) - Length 1.2 -Post Debridement (cm) - Width 0.4 -Post Debridement (cm) - Depth 0.1 -Total Square (Post) (cm) 0.48 -Area of Debridement (cm) - Length 1.2 -Area of Debridement (cm) - Width 0.4 -Total Square (Area) (cm) 0.48 -Tunneling No -Undermining/Tunneling No -Circular Undermining No -Wound/Ulcer Outcome Not Healed -Ulcer Cleansing Rinsed/ Irrigated with Saline -Foul Odor after Cleansing No -Bioengineered Tissue No -Bleeding Controlled with Pressure -Treatment Response Procedure Tolerated Well -Offloading No -Debridement - Subq, 1st 20sq cm No #1 L Hallux -Time 08:36 -Correct Patient Yes -Correct Side, Site, Position Yes -Correct Procedure Yes -Procedure Performed Yes -Type of Procedure Debridement -Clinical Debridement Subcutaneous -Tissue Removed Subcutaneous -Post Debridement (cm) - Length 2.0 -Post Debridement (cm) - Width 1.0 -Post Debridement (cm) - Depth 0.1 -Total Square (Post) (cm) 2.00 -Area of Debridement (cm) - Length 2.0 -Area of Debridement (cm) - Width 1.0 -Total Square (Area) (cm) 2.00 -Tunneling No -Undermining/Tunneling No -Circular Undermining No -Wound/Ulcer Outcome Not Healed -Ulcer Cleansing Rinsed/ Irrigated with Saline -Foul Odor after Cleansing No -Bioengineered Tissue No -Bleeding Controlled with Pressure -Treatment Response Procedure Tolerated Well -Offloading No -Debridement - Subq, 1st 20sq cm No Pain Scale: 0-10 Numeric Is Patient Pain Free? Yes WC - Nurse 3 - General Ulcer D/C NN Start: 11/30/21 08:44 Freq: Status: Active Protocol: Activity Type Activity Date Activity User E-sign Co-sign Detail Recorded Client Recorded Date Recorded By Document 11/30/21 09:58 KR [id number] 11/30/21 10:00 KR Document 12/07/21 09:03 MT Desktop 12/07/21 09:06 MT Document 12/11/21 08:26 KR [id number] 12/11/21 08:27 KR Document 12/14/21 09:43 DL [id number] 12/14/21 09:48 DL Document 12/18/21 08:03 KR [id number] 12/18/21 08:04 KR Document 12/21/21 09:30 [facility] [id number] 12/21/21 09:35 BMF 11/30/21 12/07/21 12/11/21 09:58 09:03 08:26 Wound Care Nurse 3 #7 R Inf. LE -Ulcer Cleansing Rinsed/ Rinsed/ Soap and Water Irrigated with Irrigated with Saline Saline -Foul Odor after Cleansing No -Primary Dressing Applied Aquacel AG 4x4 Aquacel Extra Aquacel AG 4x4 -Other Dressing drsg per co rn -Primary Dressing Covered/Secured with Dry Gauze, Secured with Tape -Other Covering abd -Aquacel Extra 1 -Aquacel AG 4x4 2 1 -Promogran #6 R Sup LE -Ulcer Cleansing Rinsed/ Rinsed/ Irrigated with Irrigated with Saline Saline -Foul Odor after Cleansing No -Primary Dressing Applied Aquacel Extra -Other Dressing drsg per co rn -Primary Dressing Covered/Secured with Dry Gauze,Dry Gauze & Roll Gauze,Secured with Tape -Other Covering abd -Aquacel Extra 0 -Promogran #5 R Dorsal -Ulcer Cleansing Rinsed/ Rinsed/ Irrigated with Irrigated with Saline Saline -Foul Odor after Cleansing No -Primary Dressing Applied Aquacel Extra -Other Dressing abd pad drsg per co rn -Primary Dressing Covered/Secured with Secured with Tape -Other Covering abd -Aquacel Extra 0 #4 L Med Cluster -Ulcer Cleansing -Other Dressing abd pad epifix -Primary Dressing Covered/Secured with Secured with Tape -Other Covering abd, drsg per co rn -Aquacel Extra #3 L Lat heel -Ulcer Cleansing -Foul Odor after Cleansing -Primary Dressing Applied -Other Dressing abd pad epifix, drsg per co rn -Primary Dressing Covered/Secured with Dry Gauze & Roll Gauze, Secured with Tape -Other Covering abd -Promogran #2 L 3rd toe -Ulcer Cleansing -Primary Dressing Applied -Other Dressing epifix -Primary Dressing Covered/Secured with -Other Covering abd, drsg per co rn -Aquacel Extra #1 L Hallux -Foul Odor after Cleansing -Primary Dressing Applied -Other Dressing epifix -Primary Dressing Covered/Secured with -Other Covering abd; drsg per co rn -Aquacel Extra payton -Multi-Layered Wrap Application Multi-Layer Multi-Layer Comp - Bilat ($ Comp - Bilat ($ ) ) Right -Tubular Bandage Double Layer -Size of Tubigrip Used Size E -Size E ($) 2 Left -Tubular Bandage Double Layer -Size of Tubigrip Used Size E -Size E ($) 2 Treatment Response Procedure Tolerated Well Vital Signs Temperature (97.8 F-99.1 F) 97.0 F L Temperature Source Temporal Pulse Rate (60-100) 78 Pulse Location Monitor Blood Pressure (90/60-120/80) 132/78 H Blood Pressure Mean (mm Hg) 96 Source Monitor Position Semi-Fowlers Blood Pressure Location Left Arm Pain Scale: 0-10 Numeric Is Patient Pain Free? Yes Yes Yes WC - Visit Discharge Discharge Condition Stable Stable Stable Ambulatory Status Ambulatory Ambulatory Ambulatory Transportation Private Auto Private Auto Private Auto Accompanied by daughter Notes: 12/14/21 12/18/21 12/21/21 09:43 08:03 09:30 Wound Care Nurse 3 #7 R Inf. LE -Ulcer Cleansing Rinsed/ Soap and Water Rinsed/ Irrigated with Irrigated with Saline Saline -Foul Odor after Cleansing No No -Primary Dressing Applied Aquacel Extra Aquacel Extra Promogran -Other Dressing -Primary Dressing Covered/Secured with Dry Gauze & Dry Gauze, Roll Gauze, Secured with Secured with Tape Tape -Other Covering abd -Aquacel Extra 1 1 -Aquacel AG 4x4 -Promogran 1 #6 R Sup LE -Ulcer Cleansing Rinsed/ Soap and Water Rinsed/ Irrigated with Irrigated with Saline Saline -Foul Odor after Cleansing No No -Primary Dressing Applied Aquacel Extra Promogran -Other Dressing aqaucel Ex -Primary Dressing Covered/Secured with Dry Gauze & Dry Gauze, Roll Gauze, Secured with Secured with Tape Tape -Other Covering abd -Aquacel Extra 1 -Promogran 0 #5 R Dorsal -Ulcer Cleansing Rinsed/ Irrigated with Saline -Foul Odor after Cleansing No -Primary Dressing Applied Aquacel Extra -Other Dressing aquacel Ex epifix -Primary Dressing Covered/Secured with Dry Gauze & Roll Gauze, Secured with Tape -Other Covering abd -Aquacel Extra 1 #4 L Med Cluster -Ulcer Cleansing Not Cleansed -Other Dressing Epii fix/ epifix aquacel Ex -Primary Dressing Covered/Secured with Dry Gauze & Roll Gauze, Secured with Tape -Other Covering abd -Aquacel Extra 0 #3 L Lat heel -Ulcer Cleansing Rinsed/ Rinsed/ Irrigated with Irrigated with Saline Saline -Foul Odor after Cleansing No -Primary Dressing Applied Promogran -Other Dressing aquacel EX -Primary Dressing Covered/Secured with Dry Gauze & Dry Gauze & Roll Gauze, Roll Gauze, Secured with Secured with Tape Tape -Other Covering heel hat -Promogran 0 #2 L 3rd toe -Ulcer Cleansing Not Cleansed -Primary Dressing Applied Aquacel Extra -Other Dressing Epi Fix/aquacel epifix Ex -Primary Dressing Covered/Secured with Dry Gauze & Dry Gauze & Roll Gauze, Roll Gauze, Secured with Secured with Tape Tape -Other Covering -Aquacel Extra 0 #1 L Hallux -Foul Odor after Cleansing No -Primary Dressing Applied Aquacel Extra -Other Dressing epi Fix/ epifix Aquacel Ex -Primary Dressing Covered/Secured with Dry Gauze & Dry Gauze & Roll Gauze, Roll Gauze, Secured with Secured with Tape Tape -Other Covering -Aquacel Extra 0 payton -Multi-Layered Wrap Application Multi-Layer Multi-Layer Multi-Layer Comp - Bilat ($ Comp - Bilat ($ Comp - Bilat ($ ) ) ) Right -Tubular Bandage -Size of Tubigrip Used -Size E ($) Left -Tubular Bandage -Size of Tubigrip Used -Size E ($) Treatment Response Procedure Procedure Tolerated Well Tolerated Well Vital Signs Temperature (97.8 F-99.1 F) 96.8 F L Temperature Source Temporal Pulse Rate (60-100) 96 Pulse Location Monitor Blood Pressure (90/60-120/80) 127/65 H Blood Pressure Mean (mm Hg) 85 Source Monitor Position Semi-Fowlers Blood Pressure Location Right Arm Pain Scale: 0-10 Numeric Is Patient Pain Free? Yes Yes Yes WC - Visit Discharge Discharge Condition Stable Stable Stable Ambulatory Status Ambulatory Ambulatory Ambulatory Transportation Private Auto Private Auto Private Auto Accompanied by Notes: Surgical Shoe for L Foot applied. Additional Wound Wound debrided: Right Thomas Type of Debridement: Excisional debridement Anesthesia Used: 4% Lidocaine Solution Depth: Down to and including healthy tissue and in the subcutaneous layer Percentage of wound debrided: 100 Instrument Used: 5mm curette Tissue Removed: Slough and devitalized tissue Severity: Fat Layer Exposed Amount of bleeding with debridement: Mild Bleeding Controlled with: Pressure Patient tolerated procedure: Patient tolerated procedure well Additional Wound Wound debrided: Right Dorsal Foot Type of Debridement: Excisional debridement Anesthesia Used: 4% Lidocaine Solution Depth: Down to and including healthy tissue and in the subcutaneous layer Percentage of wound debrided: 100 Instrument Used: 5mm curette Tissue Removed: Slough and devitalized tissue Severity: Fat Layer Exposed Amount of bleeding with debridement: Mild Bleeding Controlled with: Pressure Patient tolerated procedure: Patient tolerated procedure well Additional Wound Wound debrided: Left Thomas Cluster Type of Debridement: Excisional debridement Anesthesia Used: 4% Lidocaine Solution Depth: Down to and including healthy tissue and in the subcutaneous layer Percentage of wound debrided: 100 Instrument Used: 5mm curette Tissue Removed: Slough and devitalized tissue Severity: Fat Layer Exposed Amount of bleeding with debridement: Mild Bleeding Controlled with: Pressure Patient tolerated procedure: Patient tolerated procedure well Additional Wound Wound debrided: Left Great Toe Type of Debridement: Excisional debridement Anesthesia Used: 4% Lidocaine Solution Depth: Down to and including healthy tissue and in the subcutaneous layer Percentage of wound debrided: 100 Instrument Used: 3mm curette Tissue Removed: Slough and devitalized tissue Severity: Fat Layer Exposed Amount of bleeding with debridement: Mild Bleeding Controlled with: Pressure Patient tolerated procedure: Patient tolerated procedure well Additional Wound Wound debrided: Left 3rd Toe Type of Debridement: Excisional debridement Anesthesia Used: 4% Lidocaine Solution Depth: Down to and including healthy tissue and in the subcutaneous layer Percentage of wound debrided: 100 Instrument Used: 3mm curette Tissue Removed: Slough and devitalized tissue Severity: Fat Layer Exposed Amount of bleeding with debridement: Mild Bleeding Controlled with: Pressure Patient tolerated procedure: Patient tolerated procedure well Assessment/Plan Assessment/Plan (1) Ulcer of left lower extremity with fat layer exposed: CODE(S): L97.922 - Non-pressure chronic ulcer of unspecified part of left lower leg with fat layer exposed (2) Ulcer of right lower extremity with fat layer exposed: CODE(S): L97.912 - Non-pressure chronic ulcer of unspecified part of right lower leg with fat layer exposed (3) Bilateral lower extremity edema: CODE(S): R60.0 - Localized edema (4) Type 2 diabetes mellitus: CODE(S): E11.9 - Type 2 diabetes mellitus without complications (5) Cellulitis of leg: CODE(S): L03.119 - Cellulitis of unspecified part of limb (6) assisted current use of 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: CODE(S): Z79.01 - product support specialist (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 Tolerated 3M wraps well and edema with significant improvement. 3rd application of epi fix done to left medial, great toe and third toe. 100% of product was used. Covered with wound veil. Aquacel over to help with drainage. 3M wrap for edema management, come in on Saturday for nurse visit/change. Switch to Promogran with ABD over top to right lower extremity ulcerations and left heel ulcer. 3M wrap as well to right lower extremity for edema management, change on Saturday. Exercise as tolerated. Increase protein intake, vitamin C and zinc discussed. Optimal diabetes control discussed. Their questions were answered and they were advised to call with any further questions or concerns. Follow-up in 1 week or sooner if needed. This note was generated with [employer] dictation software. It may contain incorrect words, spelling, and punctuation that were not noted in checking the note before signing.
[2021-12-28 08:45] VITALS: BP 124/83; PULSE 82; RESP 20; TEMP 36.6
--- NOTE | 2021-12-28 12:59 | PN.PCM_ITS ---
History of Present Illness Date of Service: 12/28/21 Chief Complaint: Bilateral lower extremity ulcer History of Wound: Mr. Brandt is a 76-year-old who presents to the wound center due to non healing bilateral lower extremity ulcerations. He states that it started out as significant bilateral lower extremity swelling on the 10 of September. He sat for 4 straight hours mowing his lawn. Woke up the next day with significant lower extremity swelling. Currently on Lasix which he states that he has been taking. Bought some compression stockings but could not use it because it was too tight. He is mostly sedentary. History of diabetes mellitus type 2, he reports good control. Does not have as much feeling in his lower extremities. He presented to the hospital almost a week ago due to worsening bilateral lower extremity pain, redness, chills and feeling of unwell. Managed for cellulitis. Discharged on antibiotics. Feels better today. Still a lot of drainage and lower extremity swelling. Progress of Wound: Has had 3 applications of Epifix so far. Right lower extremity superior ulcer with some improvement. Lower extremity edema also with some improvement. Objective Data Objective Data Vital Signs: Vital Signs Temp Pulse Resp BP O2 Del Method 98 F 82 20 H 124/83 H Room Air 12/28/21 08:45 12/28/21 08:45 12/28/21 08:45 12/28/21 08:45 12/21/21 08:06 Oxygen Delivery Method Room Air Charges/Coding Procedures Integumentary 150xxx-152xx: 42245 Skin sub graft trnk/arm/leg Physical Exam Const alert, oriented x3 and no apparent distress General Appearance: cooperative, comfortable and well developed Orientation / Consciousness: awake HEENT normocephalic, head/scalp atraumatic and hearing grossly normal bilaterally Eyes General Eye: normal appearance of both eyes Neck full ROM and supple General: normal visual inspection Resp normal respiratory effort Effort and Inspection: able to speak in complete sentences Extremity full ROM General Extremity: edema Skin Wounds: wounds noted Neuro oriented x3, CN's II-XII intact bilaterally, moves all extremities and no focal motor deficits Psych mental status grossly normal Appearance: grossly normal Attitude: calm Activity / Motor Behavior: appropriate eye contact Debridement Note Debridement Note Wound debrided: Right Lower extremity ( superior ) Type of Debridement: Excisional debridement Anesthesia Used: 4% Lidocaine Solution Depth: Down to and including healthy tissue and in the subcutaneous layer Percentage of wound debrided: 100 Instrument Used: 5mm curette Tissue Removed: Slough and devitalized tissue Severity: Fat Layer Exposed Amount of bleeding with debridement: Mild Bleeding Controlled with: Pressure Patient tolerated procedure: Patient tolerated procedure well Post-Debridement Measurements and Additional Note: Post-Debridement Measurements/Treatment - Nurse 1 - General Ulcer Assessment Start: 11/30/21 08:44 Freq: Status: Active Protocol: CHAPARRITA Activity Type Activity Date Activity User E-sign Co-sign Detail Recorded Client Recorded Date Recorded By Document 11/30/21 08:47 KR Desktop 11/30/21 08:57 KR Document 12/07/21 08:07 DL [id number] 12/07/21 08:18 DL Document 12/11/21 08:26 KR [id number] 12/11/21 08:27 KR Document 12/14/21 08:42 BMF [id number] 12/14/21 08:56 BMF Document 12/18/21 08:03 KR [id number] 12/18/21 08:04 KR Document 12/21/21 08:06 BMF [id number] 12/21/21 08:23 BMF Document 12/28/21 08:45 BMF [id number] 12/28/21 08:57 BMF 11/30/21 12/07/21 12/11/21 08:47 08:07 08:26 - Today's Visit Information Type of service Follow-up Visit Follow-up Visit Nurse-only (Physician/SHIPPING SERVICES SALES REPRESENTATIVE (Physician/SHIPPING SERVICES SALES REPRESENTATIVE Visit ) ) Arrival Mode Ambulatory Ambulatory Ambulatory Transfer Assistance None Accompanied by Patient Identification Verified (Name & Yes Yes ) Patient Requires Transmission-Based No Precautions Finger Stick Blood Sugar(mg/dl) (if indicated): Blood Sugar Vital Signs Temperature (97.8 F-99.1 F) 97.1 F L 96.6 F L 97.0 F L Temperature Source Temporal Temporal Temporal Pulse Rate (60-100) 77 87 78 Pulse Location Monitor Monitor Monitor Respiratory Rate (12-18) 20 H Respiratory rate source Observation Oxygen Delivery Method Blood Pressure (90/60-120/80) 146/88 H 145/73 H 132/78 H Blood Pressure Mean (mm Hg) 107 97 96 Source Monitor Monitor Monitor Position Sitting Semi-Fowlers Blood Pressure Location Right Arm Left Arm History Since Last Visit- (Skip if this is Patient's initial visit) Have you changed medications since your No No No last visit? Any new allergies or adverse reactions No No No Had a fall/change in ADL's that may No No No increase risk of falls Signs or symptoms of abuse and/or No No No neglect since last visit Have you been in the hospital since your No No No last visit? Has dressing in place as prescribed Yes Yes Yes Has compression in place as prescribed Yes Yes Yes Has offloadiing in place as prescribed N/A N/A N/A Experienced any changes in pain level or No No No management Left Footwear Regular Shoe Regular Shoe Right Footwear Regular Shoe Regular Shoe Other Footwear Pain Scale: 0-10 Numeric Is Patient Pain Free? Yes Yes Yes 12/14/21 12/18/21 12/21/21 08:42 08:03 08:06 WC - Today's Visit Information Type of service Follow-up Visit Nurse-only Follow-up Visit (Physician/SHIPPING SERVICES SALES REPRESENTATIVE Visit (Physician/SHIPPING SERVICES SALES REPRESENTATIVE ) ) Arrival Mode Ambulatory Ambulatory Ambulatory Transfer Assistance None None Accompanied by girlfriend Patient Identification Verified (Name & Yes Yes Yes ) Patient Requires Transmission-Based No No Precautions Finger Stick Blood Sugar(mg/dl) (if 78 indicated): Blood Sugar Stated by Patient Vital Signs Temperature (97.8 F-99.1 F) 96.8 F L 96.8 F L 97.7 F L Temperature Source Temporal Temporal Temporal Pulse Rate (60-100) 94 96 108 H Pulse Location Monitor Monitor Monitor Respiratory Rate (12-18) 16 16 Respiratory rate source Observation Observation Oxygen Delivery Method Room Air Room Air Blood Pressure (90/60-120/80) 105/62 127/65 H 135/80 H Blood Pressure Mean (mm Hg) 76 85 98 Source Monitor Monitor Monitor Position Sitting Semi-Fowlers Sitting Blood Pressure Location Left Arm Right Arm Left Arm History Since Last Visit- (Skip if this is Patient's initial visit) Have you changed medications since your No No No last visit? Any new allergies or adverse reactions No No No Had a fall/change in ADL's that may No No No increase risk of falls Signs or symptoms of abuse and/or No No No neglect since last visit Have you been in the hospital since your No No No last visit? Has dressing in place as prescribed Yes Yes Yes Has compression in place as prescribed Yes Yes Yes Has offloadiing in place as prescribed N/A N/A N/A Experienced any changes in pain level or No No No management Left Footwear Other Footwear Regular Shoe Slipper (Comment) Right Footwear Other Footwear Surgical Shoe Slipper (Comment) with pressure relief insole Other Footwear non skid socks Pain Scale: 0-10 Numeric Is Patient Pain Free? Yes Yes Yes 12/28/21 08:45 - Today's Visit Information Type of service Follow-up Visit (Physician/SHIPPING SERVICES SALES REPRESENTATIVE ) Arrival Mode Ambulatory Transfer Assistance None Accompanied by Patient Identification Verified (Name & Yes ) Patient Requires Transmission-Based No Precautions Finger Stick Blood Sugar(mg/dl) (if indicated): Blood Sugar Vital Signs Temperature (97.8 F-99.1 F) 98 F Temperature Source Temporal Pulse Rate (60-100) 82 Pulse Location Monitor Respiratory Rate (12-18) 20 H Respiratory rate source Observation Oxygen Delivery Method Blood Pressure (90/60-120/80) 124/83 H Blood Pressure Mean (mm Hg) 96 Source Monitor Position Blood Pressure Location History Since Last Visit- (Skip if this is Patient's initial visit) Have you changed medications since your No last visit? Any new allergies or adverse reactions No Had a fall/change in ADL's that may No increase risk of falls Signs or symptoms of abuse and/or No neglect since last visit Have you been in the hospital since your No last visit? Has dressing in place as prescribed Yes Has compression in place as prescribed Yes Has offloadiing in place as prescribed Experienced any changes in pain level or No management Left Footwear Right Footwear Other Footwear Pain Scale: 0-10 Numeric Is Patient Pain Free? Yes - Nurse 1 - General Ulcer Measurement Start: 11/30/21 08:44 Freq: Status: Active Protocol: Activity Type Activity Date Activity User E-sign Co-sign Detail Recorded Client Recorded Date Recorded By Document 11/30/21 08:47 KR Desktop 11/30/21 08:57 KR Document 12/07/21 08:07 DL [id number] 12/07/21 08:18 DL Document 12/14/21 08:42 BMF [id number] 12/14/21 08:56 [facility] Document 12/21/21 08:06 [facility] [id number] 12/21/21 08:23 [facility] Document 12/28/21 08:45 [facility] [id number] 12/28/21 08:57 [facility] 11/30/21 12/07/21 12/14/21 08:47 08:07 08:42 Wound Center Nurse 1 #7 R Inf. LE -Combined with other wound No -Current Size (cm) - Length 2.4 2.6 2.2 -Current Size (cm) - Width 0.5 0.7 1.1 -Current Size (cm) - Depth 0.2 0.2 0.2 -Total Square Cm 1.20 1.82 2.42 -Date of Last Picture (Recall this field) -Photo Taken No No -Epithelialization None Present -Tunneling No -Undermining/Tunneling No -Circular Undermining No -Exudate Amt Medium Medium Medium -Exudate Type Yellow/Green Serosanguineous Serosanguineous -Wound Margin Distinct, Distinct, Distinct, Outline Outline Outline Attached Attached Attached -Granulation Amt None Present (0 Medium (34-66%) None Present (0 %) %) -Granulation Quality Banner -Slough/Fibrin Yes -Necrosis Amt Large (67-100%) Medium (34-66%) Large (67-100%) -Necrotic Tissue Type Adherent Slough Adherent Slough Adherent Slough -Structure Exposed N/A -Texture (Ana-wound Skin Appearance) Assessed, Scarring Assessed, Scarring Scarring -Moisture (Ana-wound Skin Appearance) No Abnormality, No Abnormality Assessed, Assessed Maceration,Dry/ Scaly -Color (Ana-wound Skin Appearance) No Abnormality, Hemosiderin Assessed Assessed Staining -Temperature (Ana-wound Skin No Abnormality No Abnormality No Abnormality Appearance) (Pt Warm) (Pt Warm) (Pt Warm) -Tenderness on Palpation (Ana-wound No No Yes Skin Appearance) -Ulcer Cleansing Soap and Water Soap and Water Soap and Water -Foul Odor after Cleansing No No -Anesthetic Used 4% Lidocaine 4% Lidocaine 4% Lidocaine Solution Solution Solution #6 R Sup LE -Combined with other wound No -Current Size (cm) - Length 3.7 3.3 3.6 -Current Size (cm) - Width 3.5 3 2.7 -Current Size (cm) - Depth 0.2 0.1 0.2 -Total Square Cm 12.95 9.9 9.72 -Date of Last Picture (Recall this field) -Photo Taken No No -Epithelialization Small 1-33% -Tunneling No -Undermining/Tunneling No -Circular Undermining No -Exudate Amt Medium Medium Medium -Exudate Type Serosanguineous Serosanguineous -Wound Margin Distinct, Distinct, Flat & Intact Outline Outline Attached Attached -Granulation Amt Medium (34-66%) None Present (0 Large (67-100%) %) -Granulation Quality Red Red -Slough/Fibrin Yes -Necrosis Amt Medium (34-66%) Large (67-100%) Small (1-33%) -Necrotic Tissue Type Adherent Slough Adherent Slough Adherent Slough -Structure Exposed N/A -Texture (Ana-wound Skin Appearance) Assessed, Scarring Assessed, Scarring Fluctuance -Moisture (Ana-wound Skin Appearance) No Abnormality, No Abnormality Assessed, Assessed Maceration -Color (Ana-wound Skin Appearance) No Abnormality, Hemosiderin Assessed, Assessed Staining Erythema -Temperature (Ana-wound Skin No Abnormality No Abnormality No Abnormality Appearance) (Pt Warm) (Pt Warm) (Pt Warm) -Tenderness on Palpation (Ana-wound No No Yes Skin Appearance) -Ulcer Cleansing Soap and Water Soap and Water Soap and Water -Foul Odor after Cleansing No No Yes, Due to Product Use -Anesthetic Used 4% Lidocaine 4% Lidocaine 4% Lidocaine Solution Solution Solution #5 R Dorsal -Combined with other wound No -Current Size (cm) - Length 1.4 1.4 1.5 -Current Size (cm) - Width 1.4 1.4 1.2 -Current Size (cm) - Depth 0.2 0.2 0.3 -Total Square Cm 1.96 1.96 1.80 -Date of Last Picture (Recall this field) -Photo Taken No No -Epithelialization None Present -Tunneling No -Undermining/Tunneling No -Circular Undermining No -Exudate Amt Small Medium Medium -Exudate Type Serosanguineous Serosanguineous Serosanguineous -Wound Margin Distinct, Distinct, Outline Outline Attached Attached -Granulation Amt Medium (34-66%) None Present (0 None Present (0 %) %) -Granulation Quality Banner -Slough/Fibrin Yes -Necrosis Amt Medium (34-66%) Large (67-100%) Large (67-100%) -Necrotic Tissue Type Adherent Slough Adherent Slough Adherent Slough -Structure Exposed N/A -Texture (Ana-wound Skin Appearance) Assessed, Scarring Assessed, Scarring Scarring -Moisture (Ana-wound Skin Appearance) No Abnormality, No Abnormality Assessed, Assessed Maceration -Color (Ana-wound Skin Appearance) No Abnormality, Hemosiderin Assessed Assessed,Not Staining Assessed -Temperature (Ana-wound Skin No Abnormality No Abnormality No Abnormality Appearance) (Pt Warm) (Pt Warm) (Pt Warm) -Tenderness on Palpation (Ana-wound No No Yes Skin Appearance) -Ulcer Cleansing Soap and Water Soap and Water Soap and Water -Foul Odor after Cleansing No No No -Anesthetic Used 4% Lidocaine 4% Lidocaine 4% Lidocaine Solution Solution Solution #4 L Med Cluster -Combined with other wound No -Current Size (cm) - Length 13 12.9 13 -Current Size (cm) - Width 4 3.2 4 -Current Size (cm) - Depth 0.2 0.2 0.2 -Total Square Cm 52 41.28 52 -Date of Last Picture (Recall this field) -Photo Taken No No -Epithelialization Small 1-33% -Tunneling No -Undermining/Tunneling No -Circular Undermining No -Exudate Amt Medium Medium Medium -Exudate Type Serosanguineous Serosanguineous Serosanguineous -Wound Margin Distinct, Distinct, Distinct, Outline Outline Outline Attached Attached Attached -Granulation Amt None Present (0 None Present (0 Small (1-33%) %) %) -Granulation Quality Banner -Slough/Fibrin Yes -Necrosis Amt Large (67-100%) Large (67-100%) Large (67-100%) -Necrotic Tissue Type Adherent Slough Adherent Slough Adherent Slough -Structure Exposed N/A -Texture (Ana-wound Skin Appearance) Assessed, Scarring Assessed, Scarring Scarring -Moisture (Ana-wound Skin Appearance) No Abnormality, No Abnormality Assessed, Assessed Maceration,Dry/ Scaly -Color (Ana-wound Skin Appearance) No Abnormality, Hemosiderin Assessed Assessed Staining -Temperature (Ana-wound Skin No Abnormality No Abnormality No Abnormality Appearance) (Pt Warm) (Pt Warm) (Pt Warm) -Tenderness on Palpation (Ana-wound No No Yes Skin Appearance) -Ulcer Cleansing Soap and Water Soap and Water Soap and Water -Foul Odor after Cleansing No No No -Anesthetic Used 4% Lidocaine 4% Lidocaine 4% Lidocaine Solution Solution Solution #3 L Lat heel -Combined with other wound No -Current Size (cm) - Length 0.4 0.1 0.8 -Current Size (cm) - Width 0.3 0.1 0.5 -Current Size (cm) - Depth 0.2 0.1 0.1 -Total Square Cm 0.12 0.01 0.40 -Date of Last Picture (Recall this field) -Photo Taken No No -Epithelialization None Present -Tunneling No -Undermining/Tunneling No -Circular Undermining No -Exudate Amt Medium Small Small -Exudate Type Serosanguineous Serosanguineous Serosanguineous -Wound Margin Distinct, Distinct, Distinct, Outline Outline Outline Attached Attached Attached -Granulation Amt None Present (0 Small (1-33%) Large (67-100%) %) -Granulation Quality Banner Red -Slough/Fibrin Yes -Necrosis Amt Large (67-100%) None Present (0 Small (1-33%) %) -Necrotic Tissue Type Adherent Slough Adherent Slough -Structure Exposed N/A -Texture (Ana-wound Skin Appearance) Assessed, Scarring Assessed, Scarring Scarring -Moisture (Ana-wound Skin Appearance) No Abnormality, No Abnormality Assessed Assessed -Color (Ana-wound Skin Appearance) No Abnormality, Hemosiderin Assessed, Assessed Staining Erythema -Temperature (Ana-wound Skin No Abnormality No Abnormality No Abnormality Appearance) (Pt Warm) (Pt Warm) (Pt Warm) -Tenderness on Palpation (Ana-wound No No Yes Skin Appearance) -Ulcer Cleansing Soap and Water Soap and Water Soap and Water -Foul Odor after Cleansing No No No -Anesthetic Used 4% Lidocaine 4% Lidocaine 4% Lidocaine Solution Solution Solution #2 L 3rd toe -Combined with other wound No -Current Size (cm) - Length 1 1 1 -Current Size (cm) - Width 0.5 0.3 0.6 -Current Size (cm) - Depth 0.2 0.1 0.1 -Total Square Cm 0.5 0.3 0.6 -Date of Last Picture (Recall this field) -Photo Taken No No -Epithelialization None Present -Tunneling No -Undermining/Tunneling No -Circular Undermining No -Exudate Amt Medium Medium Small -Exudate Type Serosanguineous Serosanguineous Serosanguineous -Wound Margin Distinct, Distinct, Distinct, Outline Outline Outline Attached Attached Attached -Granulation Amt None Present (0 None Present (0 None Present (0 %) %) %) -Slough/Fibrin Yes -Necrosis Amt Large (67-100%) Large (67-100%) Large (67-100%) -Necrotic Tissue Type Adherent Slough Adherent Slough Adherent Slough -Structure Exposed N/A -Texture (Ana-wound Skin Appearance) Assessed, Scarring Assessed, Scarring Scarring -Moisture (Ana-wound Skin Appearance) No Abnormality, No Abnormality Assessed, Assessed Maceration -Color (Ana-wound Skin Appearance) No Abnormality, Hemosiderin Assessed, Assessed Staining Erythema -Temperature (Ana-wound Skin No Abnormality No Abnormality No Abnormality Appearance) (Pt Warm) (Pt Warm) (Pt Warm) -Tenderness on Palpation (Ana-wound No Yes Skin Appearance) -Ulcer Cleansing Soap and Water Soap and Water Soap and Water -Foul Odor after Cleansing No No No -Anesthetic Used 4% Lidocaine 4% Lidocaine 4% Lidocaine Solution Solution Solution #1 L Hallux -Combined with other wound No -Current Size (cm) - Length 1.5 2 2 -Current Size (cm) - Width 1 0.1 1.3 -Current Size (cm) - Depth 0.1 0.1 0.1 -Total Square Cm 1.5 0.2 2.6 -Date of Last Picture (Recall this field) -Photo Taken No No -Epithelialization None Present -Tunneling No -Undermining/Tunneling No -Circular Undermining No -Exudate Amt Medium Medium Small -Exudate Type Serosanguineous Serosanguineous Serous -Wound Margin Distinct, Distinct, Outline Outline Attached Attached -Granulation Amt None Present (0 None Present (0 None Present (0 %) %) %) -Slough/Fibrin Yes -Necrosis Amt Large (67-100%) Large (67-100%) Large (67-100%) -Necrotic Tissue Type Adherent Slough Adherent Slough Adherent Slough -Structure Exposed N/A -Texture (Ana-wound Skin Appearance) Assessed, Scarring Assessed, Scarring Scarring -Moisture (Ana-wound Skin Appearance) No Abnormality, No Abnormality Assessed, Assessed Maceration -Color (Ana-wound Skin Appearance) No Abnormality, Hemosiderin Assessed, Assessed Staining Erythema -Temperature (Ana-wound Skin No Abnormality No Abnormality No Abnormality Appearance) (Pt Warm) (Pt Warm) (Pt Warm) -Tenderness on Palpation (Ana-wound No No Yes Skin Appearance) -Ulcer Cleansing Soap and Water Soap and Water Soap and Water -Foul Odor after Cleansing No No No -Anesthetic Used 4% Lidocaine 4% Lidocaine 4% Lidocaine Solution Solution Solution Lower Limb Edema Present Yes Right Calf (cm) 35.9 32.1 Right Ankle (cm) 22.5 21.5 Left Calf (cm) 38.9 32.3 Point of measurement (cm from the medial 24.3 instep) Left Ankle (cm) 24 12/21/21 12/28/21 08:06 08:45 Wound Center Nurse 1 #7 R Inf. LE -Combined with other wound No -Current Size (cm) - Length 2.6 2.8 -Current Size (cm) - Width 1.7 1.3 -Current Size (cm) - Depth 0.2 0.2 -Total Square Cm 4.42 3.64 -Date of Last Picture (Recall this 12/21/21 field) -Photo Taken Yes Yes -Epithelialization None Present -Tunneling No -Undermining/Tunneling No -Circular Undermining No -Exudate Amt Medium Medium -Exudate Type Serous Serosanguineous -Wound Margin Distinct, Distinct, Outline Outline Attached Attached -Granulation Amt None Present (0 None Present (0 %) %) -Granulation Quality -Slough/Fibrin Yes -Necrosis Amt Large (67-100%) Medium (34-66%) -Necrotic Tissue Type Adherent Slough Adherent Slough -Structure Exposed N/A -Texture (Ana-wound Skin Appearance) Assessed, Scarring Scarring -Moisture (Ana-wound Skin Appearance) Assessed Dry/Scaly -Color (Ana-wound Skin Appearance) Assessed No Abnormality -Temperature (Ana-wound Skin No Abnormality No Abnormality Appearance) (Pt Warm) (Pt Warm) -Tenderness on Palpation (Ana-wound No No Skin Appearance) -Ulcer Cleansing Soap and Water Soap and Water -Foul Odor after Cleansing No No -Anesthetic Used 4% Lidocaine 4% Lidocaine Solution Solution #6 R Sup LE -Combined with other wound No -Current Size (cm) - Length 3.5 3.4 -Current Size (cm) - Width 2.5 2.3 -Current Size (cm) - Depth 0.2 0.2 -Total Square Cm 8.75 7.82 -Date of Last Picture (Recall this 12/21/21 field) -Photo Taken Yes Yes -Epithelialization None Present -Tunneling No -Undermining/Tunneling No -Circular Undermining No -Exudate Amt Large Medium -Exudate Type Serosanguineous Serous -Wound Margin Distinct, Distinct, Outline Outline Attached Attached -Granulation Amt Medium (34-66%) -Granulation Quality Red -Slough/Fibrin Yes -Necrosis Amt Medium (34-66%) Large (67-100%) -Necrotic Tissue Type Adherent Slough Adherent Slough -Structure Exposed N/A -Texture (Ana-wound Skin Appearance) Assessed, Scarring Scarring -Moisture (Ana-wound Skin Appearance) Assessed Dry/Scaly -Color (Ana-wound Skin Appearance) Assessed No Abnormality -Temperature (Ana-wound Skin No Abnormality No Abnormality Appearance) (Pt Warm) (Pt Warm) -Tenderness on Palpation (Ana-wound No No Skin Appearance) -Ulcer Cleansing Soap and Water Soap and Water -Foul Odor after Cleansing No No -Anesthetic Used 4% Lidocaine 4% Lidocaine Solution Solution #5 R Dorsal -Combined with other wound No -Current Size (cm) - Length 1.8 1.5 -Current Size (cm) - Width 1.4 1.3 -Current Size (cm) - Depth 0.3 0.2 -Total Square Cm 2.52 1.95 -Date of Last Picture (Recall this 12/21/21 field) -Photo Taken Yes Yes -Epithelialization None Present -Tunneling No -Undermining/Tunneling No -Circular Undermining No -Exudate Amt Medium Medium -Exudate Type Serous Serosanguineous -Wound Margin Distinct, Distinct, Outline Outline Attached Attached -Granulation Amt None Present (0 None Present (0 %) %) -Granulation Quality -Slough/Fibrin Yes -Necrosis Amt Large (67-100%) Large (67-100%) -Necrotic Tissue Type Adherent Slough Adherent Slough -Structure Exposed N/A -Texture (Ana-wound Skin Appearance) Assessed, Scarring Scarring -Moisture (Ana-wound Skin Appearance) Assessed, No Abnormality, Maceration Dry/Scaly -Color (Ana-wound Skin Appearance) Assessed, No Abnormality Erythema,Palor -Temperature (Ana-wound Skin No Abnormality No Abnormality Appearance) (Pt Warm) (Pt Warm) -Tenderness on Palpation (Naa-wound No No Skin Appearance) -Ulcer Cleansing Soap and Water Soap and Water -Foul Odor after Cleansing No No -Anesthetic Used 4% Lidocaine 4% Lidocaine Solution Solution #4 L Med Cluster -Combined with other wound No -Current Size (cm) - Length 10.9 12.4 -Current Size (cm) - Width 4.1 3.7 -Current Size (cm) - Depth 0.2 0.2 -Total Square Cm 44.69 45.88 -Date of Last Picture (Recall this 12/21/21 field) -Photo Taken Yes -Epithelialization Small 1-33% -Tunneling No -Undermining/Tunneling No -Circular Undermining No -Exudate Amt Medium Medium -Exudate Type Serosanguineous Serosanguineous -Wound Margin Distinct, Distinct, Outline Outline Attached Attached -Granulation Amt Small (1-33%) None Present (0 %) -Granulation Quality Red -Slough/Fibrin Yes -Necrosis Amt Large (67-100%) Large (67-100%) -Necrotic Tissue Type Adherent Slough Adherent Slough -Structure Exposed N/A -Texture (Ana-wound Skin Appearance) Assessed, Scarring Scarring -Moisture (Ana-wound Skin Appearance) Assessed,Dry/ Dry/Scaly Scaly -Color (Ana-wound Skin Appearance) Assessed No Abnormality -Temperature (Ana-wound Skin No Abnormality No Abnormality Appearance) (Pt Warm) (Pt Warm) -Tenderness on Palpation (Ana-wound No No Skin Appearance) -Ulcer Cleansing Soap and Water Soap and Water -Foul Odor after Cleansing No No -Anesthetic Used 4% Lidocaine 4% Lidocaine Solution Solution #3 L Lat heel -Combined with other wound No -Current Size (cm) - Length 0.4 0.3 -Current Size (cm) - Width 0.4 0.3 -Current Size (cm) - Depth 0.2 0.2 -Total Square Cm 0.16 0.09 -Date of Last Picture (Recall this 12/21/21 field) -Photo Taken Yes Yes -Epithelialization None Present -Tunneling No -Undermining/Tunneling No -Circular Undermining No -Exudate Amt Small Small -Exudate Type Serosanguineous Serosanguineous -Wound Margin Distinct, Distinct, Outline Outline Attached Attached -Granulation Amt Large (67-100%) None Present (0 %) -Granulation Quality Red -Slough/Fibrin Yes -Necrosis Amt Small (1-33%) Large (67-100%) -Necrotic Tissue Type Eschar Adherent Slough -Structure Exposed N/A -Texture (Ana-wound Skin Appearance) Assessed, Callus,Scarring Scarring -Moisture (Ana-wound Skin Appearance) Assessed No Abnormality -Color (Ana-wound Skin Appearance) Assessed, No Abnormality Erythema -Temperature (Ana-wound Skin No Abnormality No Abnormality Appearance) (Pt Warm) (Pt Warm) -Tenderness on Palpation (Ana-wound No No Skin Appearance) -Ulcer Cleansing Soap and Water Soap and Water -Foul Odor after Cleansing No No -Anesthetic Used 4% Lidocaine 4% Lidocaine Solution Solution #2 L 3rd toe -Combined with other wound No -Current Size (cm) - Length 1 1.2 -Current Size (cm) - Width 0.5 0.3 -Current Size (cm) - Depth 0.1 0.2 -Total Square Cm 0.5 0.36 -Date of Last Picture (Recall this 12/21/21 field) -Photo Taken Yes Yes -Epithelialization None Present -Tunneling No -Undermining/Tunneling No -Circular Undermining No -Exudate Amt Small Small -Exudate Type Serous Serosanguineous -Wound Margin Distinct, Distinct, Outline Outline Attached Attached -Granulation Amt None Present (0 None Present (0 %) %) -Slough/Fibrin Yes -Necrosis Amt Large (67-100%) Large (67-100%) -Necrotic Tissue Type Adherent Slough Adherent Slough -Structure Exposed N/A -Texture (Ana-wound Skin Appearance) Assessed, Scarring Scarring -Moisture (Ana-wound Skin Appearance) Assessed No Abnormality -Color (Ana-wound Skin Appearance) Assessed, No Abnormality Erythema -Temperature (Ana-wound Skin No Abnormality No Abnormality Appearance) (Pt Warm) (Pt Warm) -Tenderness on Palpation (Ana-wound No No Skin Appearance) -Ulcer Cleansing Soap and Water Soap and Water -Foul Odor after Cleansing No No -Anesthetic Used 4% Lidocaine 4% Lidocaine Solution Solution #1 L Hallux -Combined with other wound No -Current Size (cm) - Length 2 1.8 -Current Size (cm) - Width 1.2 1.1 -Current Size (cm) - Depth 0.1 0.1 -Total Square Cm 2.4 1.98 -Date of Last Picture (Recall this 12/21/21 field) -Photo Taken Yes Yes -Epithelialization None Present -Tunneling No -Undermining/Tunneling No -Circular Undermining No -Exudate Amt Medium Small -Exudate Type Serous Serosanguineous -Wound Margin Distinct, Distinct, Outline Outline Attached Attached -Granulation Amt None Present (0 None Present (0 %) %) -Slough/Fibrin Yes -Necrosis Amt Large (67-100%) Large (67-100%) -Necrotic Tissue Type Adherent Slough Adherent Slough -Structure Exposed N/A -Texture (Ana-wound Skin Appearance) Assessed, Scarring Scarring -Moisture (Ana-wound Skin Appearance) Assessed, No Abnormality Maceration -Color (Ana-wound Skin Appearance) Assessed, No Abnormality Erythema,Palor -Temperature (Ana-wound Skin No Abnormality No Abnormality Appearance) (Pt Warm) (Pt Warm) -Tenderness on Palpation (Ana-wound No No Skin Appearance) -Ulcer Cleansing Soap and Water Soap and Water -Foul Odor after Cleansing No No -Anesthetic Used 4% Lidocaine 4% Lidocaine Solution Solution Lower Limb Edema Present Yes Right Calf (cm) 33 32 Right Ankle (cm) 22.4 22.1 Left Calf (cm) 32.8 34 Point of measurement (cm from the medial instep) Left Ankle (cm) 24.3 24 WC - Nurse 2 - General Ulcer CM Notes Start: 11/30/21 08:44 Freq: Status: Active Protocol: Activity Type Activity Date Activity User E-sign Co-sign Detail Recorded Client Recorded Date Recorded By Document 11/30/21 09:35 MW [id number] 11/30/21 09:49 MW Edit Result 11/30/21 09:35 MW (1) [id number] 12/01/21 06:43 PL Document 12/07/21 08:23 MW [id number] 12/07/21 08:47 MW Document 12/14/21 09:16 MW [id number] 12/14/21 09:34 MW Edit Result 12/14/21 09:16 MW (2) [id number] 12/15/21 06:33 PL Document 12/21/21 08:31 MW [id number] 12/21/21 09:08 MW Edit Result 12/21/21 08:31 MW (3) [id number] 12/21/21 09:09 MW Document 12/28/21 09:23 MW [id number] 12/28/21 09:54 MW (1) #7 R Inf. LE - Debridement, SubQ, ea addt'l 20sq cm => 3 or part thereof (2) #4 L Med Cluster - Epifix Mesh (per sq cm) 13 => 11 (3) #4 L Med Cluster - Apply Skin Sub - 1st 25 sq cm - Legs => 1 11/30/21 12/07/21 12/14/21 09:35 08:23 09:16 Wound Center Nurse 2 #7 R Inf. LE -Time 09:38 08:24 09:16 -Correct Patient Yes Yes Yes -Correct Side, Site, Position Yes Yes Yes -Correct Procedure Yes Yes Yes -Procedure Performed Yes Yes Yes -Type of Procedure Debridement Debridement Debridement -Clinical Debridement Subcutaneous Subcutaneous Subcutaneous -Tissue Removed Subcutaneous Subcutaneous Subcutaneous -Post Debridement (cm) - Length 2.9 3.0 2.4 -Post Debridement (cm) - Width 0.9 0.9 1.0 -Post Debridement (cm) - Depth 0.2 0.2 0.2 -Total Square (Post) (cm) 2.61 2.70 2.40 -Area of Debridement (cm) - Length 2.9 3.0 2.4 -Area of Debridement (cm) - Width 0.9 0.9 1.0 -Total Square (Area) (cm) 2.61 2.70 2.40 -Tunneling No No No -Undermining/Tunneling No No No -Circular Undermining No No No -Wound/Ulcer Outcome Not Healed Not Healed Not Healed -Ulcer Cleansing Rinsed/ Rinsed/ Rinsed/ Irrigated with Irrigated with Irrigated with Saline Saline Saline -Foul Odor after Cleansing No No No -Bioengineered Tissue No No No -Bleeding Controlled with Pressure Pressure Pressure -Treatment Response Procedure Procedure Procedure Tolerated Well Tolerated Well Tolerated Well -Offloading No No No -Debridement - Subq, 1st 20sq cm Yes Yes Yes -Debridement, SubQ, ea addt'l 20sq cm 3 or part thereof #6 R Sup LE -Time 09:39 08:24 09:17 -Correct Patient Yes Yes Yes -Correct Side, Site, Position Yes Yes Yes -Correct Procedure Yes Yes Yes -Procedure Performed Yes Yes Yes -Type of Procedure Debridement Debridement Debridement -Clinical Debridement Subcutaneous Subcutaneous Subcutaneous -Tissue Removed Subcutaneous Subcutaneous Subcutaneous -Post Debridement (cm) - Length 3.5 3.6 3.6 -Post Debridement (cm) - Width 3.3 2.8 1.3 -Post Debridement (cm) - Depth 0.1 0.1 0.2 -Total Square (Post) (cm) 11.55 10.08 4.68 -Area of Debridement (cm) - Length 3.5 3.6 3.6 -Area of Debridement (cm) - Width 3.3 2.8 1.3 -Total Square (Area) (cm) 11.55 10.08 4.68 -Tunneling No No No -Undermining/Tunneling No No No -Circular Undermining No No No -Wound/Ulcer Outcome Not Healed Not Healed Not Healed -Ulcer Cleansing Rinsed/ Rinsed/ Rinsed/ Irrigated with Irrigated with Irrigated with Saline Saline Saline -Foul Odor after Cleansing No No No -Bioengineered Tissue No No No -Bleeding Controlled with Pressure Pressure Pressure -Treatment Response Procedure Procedure Procedure Tolerated Well Tolerated Well Tolerated Well -Offloading No No No -Debridement - Subq, 1st 20sq cm No No No #5 R Dorsal -Time 09:40 08:24 09:18 -Correct Patient Yes Yes Yes -Correct Side, Site, Position Yes Yes Yes -Correct Procedure Yes Yes Yes -Procedure Performed Yes Yes Yes -Type of Procedure Debridement Debridement Debridement -Clinical Debridement Subcutaneous Subcutaneous Subcutaneous -Tissue Removed Subcutaneous Subcutaneous Subcutaneous -Post Debridement (cm) - Length 1.9 1.5 1.5 -Post Debridement (cm) - Width 1.3 1.3 1.3 -Post Debridement (cm) - Depth 0.2 0.2 0.2 -Total Square (Post) (cm) 2.47 1.95 1.95 -Area of Debridement (cm) - Length 1.9 1.5 1.5 -Area of Debridement (cm) - Width 1.3 1.3 1.3 -Total Square (Area) (cm) 2.47 1.95 1.95 -Tunneling No No No -Undermining/Tunneling No No No -Circular Undermining No No No -Wound/Ulcer Outcome Not Healed Not Healed Not Healed -Ulcer Cleansing Rinsed/ Rinsed/ Rinsed/ Irrigated with Irrigated with Irrigated with Saline Saline Saline -Foul Odor after Cleansing No No No -Bioengineered Tissue No No No -Bleeding Controlled with Pressure Pressure Pressure -Treatment Response Procedure Procedure Procedure Tolerated Well Tolerated Well Tolerated Well -Offloading No No No -Debridement - Subq, 1st 20sq cm No No No #4 L Med Cluster -Time 09:40 08:25 09:18 -Correct Patient Yes Yes Yes -Correct Side, Site, Position Yes Yes Yes -Correct Procedure Yes Yes Yes -Procedure Performed Yes Yes Yes -Type of Procedure Debridement Debridement Debridement -Clinical Debridement Subcutaneous Subcutaneous Subcutaneous -Tissue Removed Subcutaneous Subcutaneous Subcutaneous -Post Debridement (cm) - Length 13.0 13.0 13.0 -Post Debridement (cm) - Width 4.0 3.5 3.5 -Post Debridement (cm) - Depth 0.1 0.2 0.2 -Total Square (Post) (cm) 52.00 45.50 45.50 -Area of Debridement (cm) - Length 13.0 13.0 13.0 -Area of Debridement (cm) - Width 4.0 3.5 3.5 -Total Square (Area) (cm) 52.00 45.50 45.50 -Tunneling No No No -Undermining/Tunneling No No No -Circular Undermining No No No -Wound/Ulcer Outcome Not Healed Not Healed Not Healed -Ulcer Cleansing Rinsed/ Rinsed/ Rinsed/ Irrigated with Irrigated with Irrigated with Saline Saline Saline -Foul Odor after Cleansing No No No -Bioengineered Tissue No Yes Yes -Type of Bioengineered Tissue Epifix Mesh Epifix Mesh -Expiration Date 09/29/26 09/29/26 -Product Lot Number [id number] -Percent Used 100 100 -Lot number of Saline Used [id number] -Bleeding Controlled with Pressure Pressure Pressure -Treatment Response Procedure Procedure Procedure Tolerated Well Tolerated Well Tolerated Well -Offloading No No No -Debridement - Subq, 1st 20sq cm No No No -Apply Skin Sub - 1st 25 sq cm - Legs 1 1 -Epifix Mesh (per sq cm) 11 11 #3 L Lat heel -Time 09:40 08:25 09:19 -Correct Patient Yes Yes Yes -Correct Side, Site, Position Yes Yes Yes -Correct Procedure Yes Yes Yes -Procedure Performed Yes Yes Yes -Type of Procedure Debridement Debridement Debridement -Clinical Debridement Subcutaneous Subcutaneous Subcutaneous -Tissue Removed Subcutaneous Subcutaneous Subcutaneous -Post Debridement (cm) - Length 0.4 0.4 0.4 -Post Debridement (cm) - Width 0.3 0.3 0.3 -Post Debridement (cm) - Depth 0.1 0.1 0.1 -Total Square (Post) (cm) 0.12 0.12 0.12 -Area of Debridement (cm) - Length 0.4 0.4 0.4 -Area of Debridement (cm) - Width 0.3 0.3 0.3 -Total Square (Area) (cm) 0.12 0.12 0.12 -Tunneling No No No -Undermining/Tunneling No No No -Circular Undermining No No No -Wound/Ulcer Outcome Not Healed Not Healed Not Healed -Ulcer Cleansing Rinsed/ Rinsed/ Rinsed/ Irrigated with Irrigated with Irrigated with Saline Saline Saline -Foul Odor after Cleansing No No No -Bioengineered Tissue No No No -Bleeding Controlled with Pressure Pressure Pressure -Treatment Response Procedure Procedure Procedure Tolerated Well Tolerated Well Tolerated Well -Offloading No No No -Debridement - Subq, 1st 20sq cm No No No #2 L 3rd toe -Time 09:41 08:25 09:19 -Correct Patient Yes Yes Yes -Correct Side, Site, Position Yes Yes Yes -Correct Procedure Yes Yes Yes -Procedure Performed Yes Yes Yes -Type of Procedure Debridement Debridement Debridement -Clinical Debridement Subcutaneous Subcutaneous Subcutaneous -Tissue Removed Subcutaneous Subcutaneous Subcutaneous -Post Debridement (cm) - Length 1.3 1.0 1.0 -Post Debridement (cm) - Width 0.6 0.4 0.5 -Post Debridement (cm) - Depth 0.1 0.1 0.1 -Total Square (Post) (cm) 0.78 0.40 0.50 -Area of Debridement (cm) - Length 1.3 1.0 1.0 -Area of Debridement (cm) - Width 0.6 0.4 0.5 -Total Square (Area) (cm) 0.78 0.40 0.50 -Tunneling No No No -Undermining/Tunneling No No No -Circular Undermining No No No -Wound/Ulcer Outcome Not Healed Not Healed Not Healed -Ulcer Cleansing Rinsed/ Rinsed/ Rinsed/ Irrigated with Irrigated with Irrigated with Saline Saline Saline -Foul Odor after Cleansing No No No -Bioengineered Tissue No No No -Bleeding Controlled with Pressure Pressure Pressure -Treatment Response Procedure Procedure Procedure Tolerated Well Tolerated Well Tolerated Well -Offloading No No No -Debridement - Subq, 1st 20sq cm No No No #1 L Hallux -Time 09:41 08:26 09:20 -Correct Patient Yes Yes Yes -Correct Side, Site, Position Yes Yes Yes -Correct Procedure Yes Yes Yes -Procedure Performed Yes Yes Yes -Type of Procedure Debridement Debridement Debridement -Clinical Debridement Subcutaneous Subcutaneous Subcutaneous -Tissue Removed Subcutaneous Subcutaneous Subcutaneous -Post Debridement (cm) - Length 1.3 2.0 1.8 -Post Debridement (cm) - Width 1.1 1.2 1.1 -Post Debridement (cm) - Depth 0.3 0.1 0.1 -Total Square (Post) (cm) 1.43 2.40 1.98 -Area of Debridement (cm) - Length 1.3 2.0 1.8 -Area of Debridement (cm) - Width 1.1 1.2 1.1 -Total Square (Area) (cm) 1.43 2.40 1.98 -Tunneling No No No -Undermining/Tunneling No No No -Circular Undermining No No No -Wound/Ulcer Outcome Not Healed Not Healed Not Healed -Ulcer Cleansing Rinsed/ Rinsed/ Rinsed/ Irrigated with Irrigated with Irrigated with Saline Saline Saline -Foul Odor after Cleansing No No No -Bioengineered Tissue No No No -Bleeding Controlled with Pressure Pressure Pressure -Treatment Response Procedure Procedure Procedure Tolerated Well Tolerated Well Tolerated Well -Offloading No No -Debridement - Subq, 1st 20sq cm No No No Pain Scale: 0-10 Numeric Is Patient Pain Free? Yes Yes Yes 12/21/21 12/28/21 08:31 09:23 Wound Center Nurse 2 #7 R Inf. LE -Time 08: 09:24 -Correct Patient Yes Yes -Correct Side, Site, Position Yes Yes -Correct Procedure Yes Yes -Procedure Performed Yes Yes -Type of Procedure Debridement Debridement -Clinical Debridement Subcutaneous Subcutaneous -Tissue Removed Subcutaneous Subcutaneous -Post Debridement (cm) - Length 3.0 3.0 -Post Debridement (cm) - Width 1.2 1.3 -Post Debridement (cm) - Depth 0.1 0.1 -Total Square (Post) (cm) 3.60 3.90 -Area of Debridement (cm) - Length 3.0 3.0 -Area of Debridement (cm) - Width 1.2 1.3 -Total Square (Area) (cm) 3.60 3.90 -Tunneling No No -Undermining/Tunneling No -Circular Undermining No No -Wound/Ulcer Outcome Not Healed Not Healed -Ulcer Cleansing Rinsed/ Rinsed/ Irrigated with Irrigated with Saline Saline -Foul Odor after Cleansing No No -Bioengineered Tissue No No -Bleeding Controlled with Pressure Pressure -Treatment Response Procedure Procedure Tolerated Well Tolerated Well -Offloading No No -Debridement - Subq, 1st 20sq cm Yes Yes -Debridement, SubQ, ea addt'l 20sq cm or part thereof #6 R Sup LE -Time 08:32 09:24 -Correct Patient Yes Yes -Correct Side, Site, Position Yes Yes -Correct Procedure Yes Yes -Procedure Performed Yes Yes -Type of Procedure Debridement Debridement -Clinical Debridement Subcutaneous Subcutaneous -Tissue Removed Subcutaneous Subcutaneous -Post Debridement (cm) - Length 3.1 3.0 -Post Debridement (cm) - Width 2.3 1.9 -Post Debridement (cm) - Depth 0.1 0.1 -Total Square (Post) (cm) 7.13 5.70 -Area of Debridement (cm) - Length 3.1 3.0 -Area of Debridement (cm) - Width 2.3 1.9 -Total Square (Area) (cm) 7.13 5.70 -Tunneling No No -Undermining/Tunneling No No -Circular Undermining No No -Wound/Ulcer Outcome Not Healed Not Healed -Ulcer Cleansing Rinsed/ Rinsed/ Irrigated with Irrigated with Saline Saline -Foul Odor after Cleansing No No -Bioengineered Tissue No No -Bleeding Controlled with Pressure Pressure -Treatment Response Procedure Procedure Tolerated Well Tolerated Well -Offloading No No -Debridement - Subq, 1st 20sq cm No No #5 R Dorsal -Time 08:33 09:24 -Correct Patient Yes Yes -Correct Side, Site, Position Yes Yes -Correct Procedure Yes -Procedure Performed Yes Yes -Type of Procedure Debridement Debridement -Clinical Debridement Subcutaneous Subcutaneous -Tissue Removed Subcutaneous Subcutaneous -Post Debridement (cm) - Length 1.5 1.4 -Post Debridement (cm) - Width 1.2 1.2 -Post Debridement (cm) - Depth 0.3 0.3 -Total Square (Post) (cm) 1.80 1.68 -Area of Debridement (cm) - Length 1.5 1.4 -Area of Debridement (cm) - Width 1.2 1.2 -Total Square (Area) (cm) 1.80 1.68 -Tunneling No No -Undermining/Tunneling No No -Circular Undermining No No -Wound/Ulcer Outcome Not Healed Not Healed -Ulcer Cleansing Rinsed/ Rinsed/ Irrigated with Irrigated with Saline Saline -Foul Odor after Cleansing No No -Bioengineered Tissue No No -Bleeding Controlled with Pressure Pressure -Treatment Response Procedure Procedure Tolerated Well Tolerated Well -Offloading No No -Debridement - Subq, 1st 20sq cm No No #4 L Med Cluster -Time 08:35 09:25 -Correct Patient Yes Yes -Correct Side, Site, Position Yes Yes -Correct Procedure Yes Yes -Procedure Performed Yes Yes -Type of Procedure Debridement Debridement -Clinical Debridement Subcutaneous Subcutaneous -Tissue Removed Subcutaneous Subcutaneous -Post Debridement (cm) - Length 12.6 12.5 -Post Debridement (cm) - Width 3.8 3.8 -Post Debridement (cm) - Depth 0.2 0.2 -Total Square (Post) (cm) 47.88 47.50 -Area of Debridement (cm) - Length 12.6 12.5 -Area of Debridement (cm) - Width 3.8 3.8 -Total Square (Area) (cm) 47.88 47.50 -Tunneling No No -Undermining/Tunneling No No -Circular Undermining No No -Wound/Ulcer Outcome Not Healed Not Healed -Ulcer Cleansing Rinsed/ Rinsed/ Irrigated with Irrigated with Saline Saline -Foul Odor after Cleansing No No -Bioengineered Tissue Yes Yes -Type of Bioengineered Tissue Epifix Mesh Epifix Mesh -Expiration Date 09/29/26 04/01/26 -Product Lot Number [id number] -Percent Used 100 100 -Lot number of Saline Used [id number] -Bleeding Controlled with Pressure Pressure -Treatment Response Procedure Procedure Tolerated Well Tolerated Well -Offloading No No -Debridement - Subq, 1st 20sq cm No No -Apply Skin Sub - 1st 25 sq cm - Legs 1 1 -Epifix Mesh (per sq cm) 11 11 #3 L Lat heel -Time 08:35 09:26 -Correct Patient Yes Yes -Correct Side, Site, Position Yes Yes -Correct Procedure Yes Yes -Procedure Performed Yes Yes -Type of Procedure Debridement Debridement -Clinical Debridement Subcutaneous Subcutaneous -Tissue Removed Subcutaneous Subcutaneous -Post Debridement (cm) - Length 0.7 0.6 -Post Debridement (cm) - Width 0.4 0.5 -Post Debridement (cm) - Depth 0.1 0.1 -Total Square (Post) (cm) 0.28 0.30 -Area of Debridement (cm) - Length 0.7 0.6 -Area of Debridement (cm) - Width 0.4 0.5 -Total Square (Area) (cm) 0.28 0.30 -Tunneling No No -Undermining/Tunneling No No -Circular Undermining No No -Wound/Ulcer Outcome Not Healed Not Healed -Ulcer Cleansing Rinsed/ Rinsed/ Irrigated with Irrigated with Saline Saline -Foul Odor after Cleansing No No -Bioengineered Tissue No No -Bleeding Controlled with Pressure Pressure -Treatment Response Procedure Procedure Tolerated Well Tolerated Well -Offloading No No -Debridement - Subq, 1st 20sq cm No No #2 L 3rd toe -Time 08:35 09:26 -Correct Patient Yes Yes -Correct Side, Site, Position Yes Yes -Correct Procedure Yes Yes -Procedure Performed Yes Yes -Type of Procedure Debridement Debridement -Clinical Debridement Subcutaneous Subcutaneous -Tissue Removed Subcutaneous Subcutaneous -Post Debridement (cm) - Length 1.2 1.2 -Post Debridement (cm) - Width 0.4 0.4 -Post Debridement (cm) - Depth 0.1 0.1 -Total Square (Post) (cm) 0.48 0.48 -Area of Debridement (cm) - Length 1.2 1.2 -Area of Debridement (cm) - Width 0.4 0.4 -Total Square (Area) (cm) 0.48 0.48 -Tunneling No No -Undermining/Tunneling No No -Circular Undermining No No -Wound/Ulcer Outcome Not Healed Not Healed -Ulcer Cleansing Rinsed/ Rinsed/ Irrigated with Irrigated with Saline Saline -Foul Odor after Cleansing No No -Bioengineered Tissue No No -Bleeding Controlled with Pressure Pressure -Treatment Response Procedure Procedure Tolerated Well Tolerated Well -Offloading No No -Debridement - Subq, 1st 20sq cm No No #1 L Hallux -Time 08:36 09:27 -Correct Patient Yes Yes -Correct Side, Site, Position Yes Yes -Correct Procedure Yes Yes -Procedure Performed Yes Yes -Type of Procedure Debridement Debridement -Clinical Debridement Subcutaneous Subcutaneous -Tissue Removed Subcutaneous Subcutaneous -Post Debridement (cm) - Length 2.0 1.9 -Post Debridement (cm) - Width 1.0 1.2 -Post Debridement (cm) - Depth 0.1 0.1 -Total Square (Post) (cm) 2.00 2.28 -Area of Debridement (cm) - Length 2.0 1.9 -Area of Debridement (cm) - Width 1.0 1.2 -Total Square (Area) (cm) 2.00 2.28 -Tunneling No No -Undermining/Tunneling No No -Circular Undermining No No -Wound/Ulcer Outcome Not Healed Not Healed -Ulcer Cleansing Rinsed/ Rinsed/ Irrigated with Irrigated with Saline Saline -Foul Odor after Cleansing No No -Bioengineered Tissue No No -Bleeding Controlled with Pressure Pressure -Treatment Response Procedure Procedure Tolerated Well Tolerated Well -Offloading No No -Debridement - Subq, 1st 20sq cm No No Pain Scale: 0-10 Numeric Is Patient Pain Free? Yes Yes WC - Nurse 3 - General Ulcer D/C NN Start: 11/30/21 08:44 Freq: Status: Active Protocol: Activity Type Activity Date Activity User E-sign Co-sign Detail Recorded Client Recorded Date Recorded By Document 11/30/21 09:58 KR [id number] 11/30/21 10:00 KR Document 12/07/21 09:03 MT Desktop 12/07/21 09:06 MT Document 12/11/21 08:26 KR [id number] 12/11/21 08:27 KR Document 12/14/21 09:43 DL [id number] 12/14/21 09:48 DL Document 12/18/21 08:03 KR [id number] 12/18/21 08:04 KR Document 12/21/21 09:30 [facility] [id number] 12/21/21 09:35 [facility] Document 12/28/21 10:07 MN [id number] 12/28/21 10:12 MN 11/30/21 12/07/21 12/11/21 09:58 09:03 08:26 Wound Care Nurse 3 #7 R Inf. LE -Ulcer Cleansing Rinsed/ Rinsed/ Soap and Water Irrigated with Irrigated with Saline Saline -Foul Odor after Cleansing No -Primary Dressing Applied Aquacel AG 4x4 Aquacel Extra Aquacel AG 4x4 -Other Dressing drsg per id rn -Primary Dressing Covered/Secured with Dry Gauze, Secured with Tape -Other Covering abd -Aquacel Extra 1 -Aquacel AG 4x4 2 1 -Promogran #6 R Sup LE -Ulcer Cleansing Rinsed/ Rinsed/ Irrigated with Irrigated with Saline Saline -Foul Odor after Cleansing No -Primary Dressing Applied Aquacel Extra -Other Dressing drsg per id rn -Primary Dressing Covered/Secured with Dry Gauze,Dry Gauze & Roll Gauze,Secured with Tape -Other Covering abd -Aquacel Extra 0 -Promogran #5 R Dorsal -Ulcer Cleansing Rinsed/ Rinsed/ Irrigated with Irrigated with Saline Saline -Foul Odor after Cleansing No -Primary Dressing Applied Aquacel Extra -Other Dressing abd pad drsg per id rn -Primary Dressing Covered/Secured with Secured with Tape -Other Covering abd -Aquacel Extra 0 #4 L Med Cluster -Ulcer Cleansing -Other Dressing abd pad epifix -Primary Dressing Covered/Secured with Secured with Tape -Other Covering abd, drsg per id rn -Aquacel Extra #3 L Lat heel -Ulcer Cleansing -Foul Odor after Cleansing -Primary Dressing Applied -Other Dressing abd pad epifix, drsg per id rn -Primary Dressing Covered/Secured with Dry Gauze & Roll Gauze, Secured with Tape -Other Covering abd -Promogran #2 L 3rd toe -Ulcer Cleansing -Primary Dressing Applied -Other Dressing epifix -Primary Dressing Covered/Secured with -Other Covering abd, drsg per id rn -Aquacel Extra #1 L Hallux -Foul Odor after Cleansing -Primary Dressing Applied -Other Dressing epifix -Primary Dressing Covered/Secured with -Other Covering abd; drsg per id rn -Aquacel Extra payton -Multi-Layered Wrap Application Multi-Layer Multi-Layer Comp - Bilat ($ Comp - Bilat ($ ) ) Right -Tubular Bandage Double Layer -Size of Tubigrip Used Size E -Size E ($) 2 Left -Tubular Bandage Double Layer -Size of Tubigrip Used Size E -Size E ($) 2 Treatment Response Procedure Tolerated Well Vital Signs Temperature (97.8 F-99.1 F) 97.0 F L Temperature Source Temporal Pulse Rate (60-100) 78 Pulse Location Monitor Blood Pressure (90/60-120/80) 132/78 H Blood Pressure Mean (mm Hg) 96 Source Monitor Position Semi-Fowlers Blood Pressure Location Left Arm Pain Scale: 0-10 Numeric Is Patient Pain Free? Yes Yes Yes WC - Visit Discharge Discharge Condition Stable Stable Stable Ambulatory Status Ambulatory Ambulatory Ambulatory Transportation Private Auto Private Auto Private Auto Accompanied by daughter Medication Reconcilliation completed & provided to patient/care provider Clinical Summary of Care Provided Notes: 12/14/21 12/18/21 12/21/21 09:43 08:03 09:30 Wound Care Nurse 3 #7 R Inf. LE -Ulcer Cleansing Rinsed/ Soap and Water Rinsed/ Irrigated with Irrigated with Saline Saline -Foul Odor after Cleansing No No -Primary Dressing Applied Aquacel Extra Aquacel Extra Promogran -Other Dressing -Primary Dressing Covered/Secured with Dry Gauze & Dry Gauze, Roll Gauze, Secured with Secured with Tape Tape -Other Covering abd -Aquacel Extra 1 1 -Aquacel AG 4x4 -Promogran 1 #6 R Sup LE -Ulcer Cleansing Rinsed/ Soap and Water Rinsed/ Irrigated with Irrigated with Saline Saline -Foul Odor after Cleansing No No -Primary Dressing Applied Aquacel Extra Promogran -Other Dressing aqaucel Ex -Primary Dressing Covered/Secured with Dry Gauze & Dry Gauze, Roll Gauze, Secured with Secured with Tape Tape -Other Covering abd -Aquacel Extra 1 -Promogran 0 #5 R Dorsal -Ulcer Cleansing Rinsed/ Irrigated with Saline -Foul Odor after Cleansing No -Primary Dressing Applied Aquacel Extra -Other Dressing aquacel Ex epifix -Primary Dressing Covered/Secured with Dry Gauze & Roll Gauze, Secured with Tape -Other Covering abd -Aquacel Extra 1 #4 L Med Cluster -Ulcer Cleansing Not Cleansed -Other Dressing Epii fix/ epifix aquacel Ex -Primary Dressing Covered/Secured with Dry Gauze & Roll Gauze, Secured with Tape -Other Covering abd -Aquacel Extra 0 #3 L Lat heel -Ulcer Cleansing Rinsed/ Rinsed/ Irrigated with Irrigated with Saline Saline -Foul Odor after Cleansing No -Primary Dressing Applied Promogran -Other Dressing aquacel EX -Primary Dressing Covered/Secured with Dry Gauze & Dry Gauze & Roll Gauze, Roll Gauze, Secured with Secured with Tape Tape -Other Covering heel hat -Promogran 0 #2 L 3rd toe -Ulcer Cleansing Not Cleansed -Primary Dressing Applied Aquacel Extra -Other Dressing Epi Fix/aquacel epifix Ex -Primary Dressing Covered/Secured with Dry Gauze & Dry Gauze & Roll Gauze, Roll Gauze, Secured with Secured with Tape Tape -Other Covering -Aquacel Extra 0 #1 L Hallux -Foul Odor after Cleansing No -Primary Dressing Applied Aquacel Extra -Other Dressing epi Fix/ epifix Aquacel Ex -Primary Dressing Covered/Secured with Dry Gauze & Dry Gauze & Roll Gauze, Roll Gauze, Secured with Secured with Tape Tape -Other Covering -Aquacel Extra 0 payton -Multi-Layered Wrap Application Multi-Layer Multi-Layer Multi-Layer Comp - Bilat ($ Comp - Bilat ($ Comp - Bilat ($ ) ) ) Right -Tubular Bandage -Size of Tubigrip Used -Size E ($) Left -Tubular Bandage -Size of Tubigrip Used -Size E ($) Treatment Response Procedure Procedure Tolerated Well Tolerated Well Vital Signs Temperature (97.8 F-99.1 F) 96.8 F L Temperature Source Temporal Pulse Rate (60-100) 96 Pulse Location Monitor Blood Pressure (90/60-120/80) 127/65 H Blood Pressure Mean (mm Hg) 85 Source Monitor Position Semi-Fowlers Blood Pressure Location Right Arm Pain Scale: 0-10 Numeric Is Patient Pain Free? Yes Yes Yes WC - Visit Discharge Discharge Condition Stable Stable Stable Ambulatory Status Ambulatory Ambulatory Ambulatory Transportation Private Auto Private Auto Private Auto Accompanied by Medication Reconcilliation completed & provided to patient/care provider Clinical Summary of Care Provided Notes: Surgical Shoe for L Foot applied. 12/28/21 10:07 Wound Care Nurse 3 #7 R Inf. LE -Ulcer Cleansing -Foul Odor after Cleansing -Primary Dressing Applied Promogran -Other Dressing -Primary Dressing Covered/Secured with -Other Covering -Aquacel Extra -Aquacel AG 4x4 -Promogran 2 #6 R Sup LE -Ulcer Cleansing -Foul Odor after Cleansing -Primary Dressing Applied -Other Dressing -Primary Dressing Covered/Secured with -Other Covering -Aquacel Extra -Promogran #5 R Dorsal -Ulcer Cleansing -Foul Odor after Cleansing -Primary Dressing Applied -Other Dressing -Primary Dressing Covered/Secured with -Other Covering -Aquacel Extra #4 L Med Cluster -Ulcer Cleansing -Other Dressing -Primary Dressing Covered/Secured with -Other Covering -Aquacel Extra #3 L Lat heel -Ulcer Cleansing -Foul Odor after Cleansing -Primary Dressing Applied -Other Dressing -Primary Dressing Covered/Secured with -Other Covering -Promogran #2 L 3rd toe -Ulcer Cleansing -Primary Dressing Applied -Other Dressing -Primary Dressing Covered/Secured with -Other Covering -Aquacel Extra #1 L Hallux -Foul Odor after Cleansing -Primary Dressing Applied -Other Dressing -Primary Dressing Covered/Secured with -Other Covering -Aquacel Extra payton -Multi-Layered Wrap Application Multi-Layer Comp - Bilat ($ ) Right -Tubular Bandage -Size of Tubigrip Used -Size E ($) Left -Tubular Bandage -Size of Tubigrip Used -Size E ($) Treatment Response Vital Signs Temperature (97.8 F-99.1 F) Temperature Source Pulse Rate (60-100) Pulse Location Blood Pressure (90/60-120/80) Blood Pressure Mean (mm Hg) Source Position Blood Pressure Location Pain Scale: 0-10 Numeric Is Patient Pain Free? Yes WC - Visit Discharge Discharge Condition Stable Ambulatory Status Wheelchair Transportation Private Auto Accompanied by Medication Reconcilliation completed & No provided to patient/care provider Clinical Summary of Care Provided Yes Notes: Additional Wound Wound debrided: Right Lower extremity ( inferior ) Type of Debridement: Excisional debridement Anesthesia Used: 4% Lidocaine Solution Depth: Down to and including healthy tissue and in the subcutaneous layer Percentage of wound debrided: 100 Instrument Used: 5mm curette Tissue Removed: Slough and devitalized tissue Severity: Fat Layer Exposed Amount of bleeding with debridement: Mild Bleeding Controlled with: Pressure Patient tolerated procedure: Patient tolerated procedure well Additional Wound Wound debrided: Right Dorsal Foot Type of Debridement: Excisional debridement Anesthesia Used: 4% Lidocaine Solution Depth: Down to and including healthy tissue and in the subcutaneous layer Percentage of wound debrided: 100 Instrument Used: 5mm curette Tissue Removed: Slough and devitalized tissue Severity: Fat Layer Exposed Amount of bleeding with debridement: Mild Bleeding Controlled with: Pressure Patient tolerated procedure: Patient tolerated procedure well Additional Wound Wound debrided: Left Medial Cluster Type of Debridement: Excisional debridement Anesthesia Used: 4% Lidocaine Solution Depth: Down to and including healthy tissue and in the subcutaneous layer Percentage of wound debrided: 100 Instrument Used: 5mm curette Tissue Removed: Slough and devitalized tissue Severity: Fat Layer Exposed Amount of bleeding with debridement: Mild Bleeding Controlled with: Pressure Patient tolerated procedure: Patient tolerated procedure well Additional Wound Wound debrided: Left Great Toe Type of Debridement: Excisional debridement Anesthesia Used: 4% Lidocaine Solution Depth: Down to and including healthy tissue and in the subcutaneous layer Percentage of wound debrided: 100 Instrument Used: 3mm curette and 5mm curette Tissue Removed: Slough and devitalized tissue Severity: Fat Layer Exposed Amount of bleeding with debridement: Mild Bleeding Controlled with: Pressure Patient tolerated procedure: Patient tolerated procedure well Additional Wound Wound debrided: Left 3rd toe Type of Debridement: Excisional debridement Anesthesia Used: 4% Lidocaine Solution Depth: Down to and including healthy tissue and in the subcutaneous layer Percentage of wound debrided: 100 Instrument Used: 3mm curette Tissue Removed: Slough and devitalized tissue Severity: Fat Layer Exposed Amount of bleeding with debridement: Mild Bleeding Controlled with: Pressure Patient tolerated procedure: Patient tolerated procedure well Additional Wound Wound debrided: Left lateral heel Type of Debridement: Excisional debridement Anesthesia Used: 4% Lidocaine Solution Depth: Down to and including healthy tissue and in the subcutaneous layer Percentage of wound debrided: 100 Instrument Used: 3mm curette Tissue Removed: Slough and devitalized tissue Severity: Fat Layer Exposed Amount of bleeding with debridement: Mild Bleeding Controlled with: Pressure Patient tolerated procedure: Patient tolerated procedure well Assessment/Plan Assessment/Plan (1) Ulcer of left lower extremity with fat layer exposed: CODE(S): L97.922 - Non-pressure chronic ulcer of unspecified part of left lower leg with fat layer exposed (2) Ulcer of right lower extremity with fat layer exposed: CODE(S): L97.912 - Non-pressure chronic ulcer of unspecified part of right lower leg with fat layer exposed (3) Bilateral lower extremity edema: CODE(S): R60.0 - Localized edema (4) Type 2 diabetes mellitus: CODE(S): E11.9 - Type 2 diabetes mellitus without complications (5) Cellulitis of leg: CODE(S): L03.119 - Cellulitis of unspecified part of limb (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: CODE(S): Z79.01 - 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 4th application of epi fix done to left lower extremity. Promogran over top. Covered with adaptic touch. 3M wrap for edema management, come in on Saturday for nurse visit/change. Continue Promogran to right lower extremity ulcers. 3M wrap as well to right lower extremity for edema management, change on Saturday. Exercise as tolerated. Increase protein intake, vitamin C and zinc discussed. Optimal diabetes control discussed. Their questions were answered and they were advised to call with any further questions or concerns. Follow-up in 1 week or sooner if needed. This note was generated with [employer] software. It may contain incorrect words, spelling, and punctuation that were not noted in checking the note before signing.
== END 2021-12-29 23:59 | disposition home or self-care (01) ==
LOC: WC 08:45
PROVIDERS: PCP Family Medicine; Visit Provider Internal Medicine
DX: E11.621 Type 2 diabetes mellitus with foot ulcer (principal); E11.622 Type 2 diabetes mellitus with other skin ulcer; L97.512 Non-pressure chronic ulcer of other part of right foot with fat layer exposed; L97.522 Non-pressure chronic ulcer of other part of left foot with fat layer exposed; L97.812 Non-pressure chronic ulcer of other part of right lower leg with fat layer exposed; L97.822 Non-pressure chronic ulcer of other part of left lower leg with fat layer exposed; Z79.01 Long term (current) use of 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s; R60.0 Localized edema; L03.119 Cellulitis of unspecified part of limb
CPT/HCPCS: 11042; 11045; 15271; 29581; Q4186

== ENCOUNTER → 2022-01-01 | Outpatient (CLI) | payer MEDICARE, OTHER, SELFPAY ==
[2022-01-01 17:44] LABS: International Normalized Ratio 2.5
[2022-01-01 18:00] LABS: Anion Gap 7 (5-15); BUN 20 mg/dL (7-18); BUN/Creat Ratio 17.9 RATIO (10-20); Calcium,Total 9.3 mg/dL (8.5-10.1); Chloride 99 mmol/L (98-107); Creatinine, Serum 1.12 mg/dL (0.70-1.30); EST Glomerular Filtration Rate 68 mL/min (>60); Est Glom Filt Rate - Afr Amer 82 mL/min (>60); Glucose 71 mg/dL (74-106); Potassium 3.9 mmol/L (3.5-5.1); Sodium Level 138 mmol/L (136-145)
== END | disposition home or self-care (01) ==
LOC: LAB 16:43
PROVIDERS: Nurse Practitioner Gerontology; PCP Family Medicine; Visit Provider Nurse Practitioner Family
DX: I48.0 Paroxysmal atrial fibrillation (principal); I48.92 Unspecified atrial flutter; Z79.01 Long term (current) use of 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s; E87.6 Hypokalemia; E87.1 Hypo-osmolality and hyponatremia
CPT/HCPCS: 36415; 80048; 85610

== ENCOUNTER 2022-01-15 08:34 | Outpatient (RCR) | payer MEDICARE, OTHER, SELFPAY ==
[2022-01-08 08:35] LABS: BNP,B-Type NATRIURETIC PEPTIDE 395.5 pg/mL (0-100)
[2022-01-08 08:42] LABS: AST(SGOT) 20 U/L (15-37); Alanine Aminotransfer ALT/SGPT 15 U/L (16-61); Albumin, Serum 2.6 g/dL (3.2-5.0); Alkaline Phosphatase 109 U/L (45-117); Bilirubin, Direct 0.36 mg/dL (0.00-0.30); Cholesterol 126 mg/dL (200); Globulin 4.7 g/dL (2.2-4.2); High Density Lipoprotein 50 mg/dL; Protein, Total 7.3 g/dL (6.4-8.2); Triglycerides 79 mg/dL; Very Low Density Lipoprotein 16 mg/dL (5-40)
[2022-01-08 08:56] LABS: International Normalized Ratio 2.4; Prothrombin Time (Protime)PT. 25.4 SECONDS (11.7-14.9)
[2022-01-15 09:56] LABS: Prothrombin Time (Protime)PT. 39.1 SECONDS (11.7-14.9)
[2022-01-15 10:14] LABS: Anion Gap 10 (5-15); BUN 27 mg/dL (7-18); BUN/Creat Ratio 21.3 RATIO (10-20); Calcium,Total 9.1 mg/dL (8.5-10.1); Chloride 99 mmol/L (98-107); Creatinine, Serum 1.27 mg/dL (0.70-1.30); EST Glomerular Filtration Rate 59 mL/min (>60); Est Glom Filt Rate - Afr Amer 71 mL/min (>60); Glucose 161 mg/dL (74-106); Potassium 3.7 mmol/L (3.5-5.1); Sodium Level 141 mmol/L (136-145)
[2022-01-15 10:15] LABS: BNP,B-Type NATRIURETIC PEPTIDE 650.5 pg/mL (0-100)
== END 2022-01-15 18:00 | disposition home or self-care (01) ==
LOC: LAB 08:34
PROVIDERS: Nurse Practitioner Gerontology; Physician Assistant Medical; PCP Family Medicine; Referring Provider Internal Medicine Cardiovascular Disease; Visit Provider Internal Medicine Cardiovascular Disease
DX: I48.0 Paroxysmal atrial fibrillation (principal); I48.92 Unspecified atrial flutter; Z79.01 Long term (current) use of 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s; R06.09 Other forms of dyspnea; E78.00 Pure hypercholesterolemia, unspecified
CPT/HCPCS: 36415; 80048; 80061; 80076; 83880; 85610

== ENCOUNTER → 2022-01-23 | Outpatient (CLI) | payer MEDICARE, OTHER, SELFPAY ==
[2022-01-23 16:19] LABS: Absolute Lymphocyte Count 0.52 X10^3/uL (0.83-4.51); Absolute Neutrophil Count 12.1 X10^3/uL (2.0-7.7); Basophil# 0.03 X10^3/uL; Basophil% 0.2 % (0-1); Eosinophil# 0.01 X10^3/uL; Eosinophils% 0.1 % (0-5); Hematocrit 35.8 % (40-54); Hemoglobin 11.7 g/dL (13.0-16.5); Lymphocyte # 0.52 X10^3/ul (0.83-4.51); Lymphocyte % 3.9 % (19-41); Mean Corp Hgb Conc 32.7 g/dL (32-36); Mean Corpuscular Hgb 30.9 pg (27.0-32.0); Mean Corpuscular Volume 94.5 fL (80-94); Mean Platelet Vol. 9.9 fl (6.2-12.0); Monocyte# 0.83 X10^3/uL; Monocyte% 6.1 % (0-10); NRBC Flagged by Analyzer 0 % (0-5); Neutrophil # 12.05 X10^3/uL (2.7-7.7); Neutrophil % 89.3 % (47-70); POSITIVE DIFFERENTIAL YES; Platelet Count 196 K/mm3 (150-450); RBC Distribution Width CV 14.1 % (11.6-14.6); Red Blood Count 3.79 M/mm3 (4.6-6.2); White Blood Count 13.5 K/mm3 (4.4-11.0)
[2022-01-23 16:58] LABS: Differential Indicated SCAN CRITERIA MET
[2022-01-23 17:00] LABS: International Normalized Ratio 2.3; Prothrombin Time (Protime)PT. 25.3 SECONDS (11.7-14.9)
[2022-01-23 17:40] LABS: Anion Gap 6 (5-15); BUN 30 mg/dL (7-18); BUN/Creat Ratio 20.5 RATIO (10-20); Calcium,Total 9.4 mg/dL (8.5-10.1); Chloride 93 mmol/L (98-107); Creatinine, Serum 1.46 mg/dL (0.70-1.30); Differential Comment SCANNED; EST Glomerular Filtration Rate 50 mL/min (>60); Est Glom Filt Rate - Afr Amer 60 mL/min (>60); Glucose 168 mg/dL (74-106); Magnesium 1.9 mg/dL (1.6-2.6); Potassium 3.2 mmol/L (3.5-5.1); Sodium Level 134 mmol/L (136-145); T4 Free Direct 1.11 ng/dL (0.76-1.46); Thyroid Stim Hormone (TSH) 2.17 uIU/mL (0.358-3.74)
== END | disposition home or self-care (01) ==
PROVIDERS: PCP Family Medicine; Referring Provider Nurse Practitioner Gerontology; Visit Provider Nurse Practitioner Gerontology
DX: R06.09 Other forms of dyspnea (principal); I48.0 Paroxysmal atrial fibrillation
CPT/HCPCS: 36415; 80048; 83735; 83880; 84439; 84443; 85025; 85610

== ENCOUNTER 2022-01-29 08:00 | Outpatient (RCR) | payer MEDICARE, OTHER, SELFPAY ==
[2021-12-30 01:36] VITALS: BP 124/83; PULSE 82; RESP 20; TEMP 36.6
[2022-01-04 08:08] VITALS: BP 125/40; PULSE 78; RESP 16; TEMP 36.2
--- NOTE | 2022-01-04 09:17 | PCM.WC.PN ---
History of Present Illness Date of Service: 01/04/22 Chief Complaint: Bilateral lower extremity ulcer History of Wound: Mr. Brandt is a 76-year-old who presents to the wound center due to non healing bilateral lower extremity ulcerations. He states that it started out as significant bilateral lower extremity swelling on the 10 of September. He sat for 4 straight hours mowing his lawn. Woke up the next day with significant lower extremity swelling. Currently on Lasix which he states that he has been taking. Bought some compression stockings but could not use it because it was too tight. He is mostly sedentary. History of diabetes mellitus type 2, he reports good control. Does not have as much feeling in his lower extremities. He presented to the hospital almost a week ago due to worsening bilateral lower extremity pain, redness, chills and feeling of unwell. Managed for cellulitis. Discharged on antibiotics. Feels better today. Still a lot of drainage and lower extremity swelling. Progress of Wound: Some improvement in Right superior and left medial cluster. Toes with some maceration appreciated. Left medial ankle also with some improvement. Has had 4 applications of Epifix so far. Objective Data Objective Data Vital Signs: Vital Signs Temp Pulse Resp BP O2 Del Method 97.1 F L 78 16 125/40 H Room Air 01/04/22 08:08 01/04/22 08:08 01/04/22 08:08 01/04/22 08:08 01/04/22 08:08 Oxygen Delivery Method Room Air Charges/Coding Procedures Integumentary 150xxx-152xx: 08418 Skin sub graft trnk/arm/leg Physical Exam Const alert, oriented x3 and no apparent distress General Appearance: cooperative, comfortable and well developed Orientation / Consciousness: awake HEENT normocephalic, head/scalp atraumatic and hearing grossly normal bilaterally Eyes General Eye: normal appearance of both eyes Neck full ROM and supple General: normal visual inspection Resp normal respiratory effort Effort and Inspection: able to speak in complete sentences Extremity full ROM General Extremity: edema Skin Wounds: wounds noted Neuro oriented x3, CN's II-XII intact bilaterally, moves all extremities and no focal motor deficits Psych mental status grossly normal Appearance: grossly normal Attitude: calm Activity / Motor Behavior: appropriate eye contact Debridement Note Debridement Note Wound debrided: Right Lower extremity ( superior ) Type of Debridement: Excisional debridement Anesthesia Used: 4% Lidocaine Solution Depth: Down to and including healthy tissue and in the subcutaneous layer Percentage of wound debrided: 100 Instrument Used: 5mm curette Tissue Removed: Slough and devitalized tissue Severity: Fat Layer Exposed Amount of bleeding with debridement: Mild Bleeding Controlled with: Pressure Patient tolerated procedure: Patient tolerated procedure well Post-Debridement Measurements and Additional Note: Post-Debridement Measurements/Treatment DAVID Huertas Nurse 1 - General Ulcer Assessment Start: 01/04/22 08:08 Freq: Status: Active Protocol: CHAPARRITA Activity Type Activity Date Activity User E-sign Co-sign Detail Recorded Client Recorded Date Recorded By Document 01/04/22 08:08 [facility] [id number] 01/04/22 08:25 [facility] 01/04/22 08:08 WC - Today's Visit Information Type of service Follow-up Visit (Physician/[employer]TE[employer] ) Arrival Mode Ambulatory Transfer Assistance None Accompanied by Patient Identification Verified (Name & Yes ) Patient Requires Transmission-Based No Precautions Vital Signs Temperature (97.8 F-99.1 F) 97.1 F L Temperature Source Temporal Pulse Rate (60-100) 78 Pulse Location Monitor Respiratory Rate (12-18) 16 Respiratory rate source Observation Oxygen Delivery Method Room Air Blood Pressure (90/60-120/80) 125/40 H Blood Pressure Mean (mm Hg) 68 Source Monitor Position Sitting Blood Pressure Location Left Forearm History Since Last Visit- (Skip if this is Patient's initial visit) Have you changed medications since your No last visit? Any new allergies or adverse reactions No Had a fall/change in ADL's that may No increase risk of falls Signs or symptoms of abuse and/or No neglect since last visit Have you been in the hospital since your No last visit? Has dressing in place as prescribed Yes Has compression in place as prescribed Yes Has offloadiing in place as prescribed N/A Experienced any changes in pain level or No management Left Footwear Surgical Shoe with pressure relief insole Right Footwear Regular Shoe Pain Scale: 0-10 Numeric Is Patient Pain Free? Yes Aleksandar Nurse 1 - General Ulcer Measurement Start: 01/04/22 08:08 Freq: Status: Active Protocol: Activity Type Activity Date Activity User E-sign Co-sign Detail Recorded Client Recorded Date Recorded By Document 01/04/22 08:08 [facility] [id number] 01/04/22 08:25 [facility] 01/04/22 08:08 Wound Center Nurse 1 #7 R Inf. LE -Combined with other wound No -Current Size (cm) - Length 1.8 -Current Size (cm) - Width 0.8 -Current Size (cm) - Depth 0.2 -Total Square Cm 1.44 -Photo Taken No -Epithelialization None Present -Tunneling No -Undermining/Tunneling No -Circular Undermining No -Exudate Amt Medium -Exudate Type Serosanguineous -Wound Margin Distinct, Outline Attached -Granulation Amt Small (1-33%) -Granulation Quality Red -Slough/Fibrin Yes -Necrosis Amt Large (67-100%) -Necrotic Tissue Type Adherent Slough -Texture (Ana-wound Skin Appearance) Assessed, Fluctuance -Moisture (Ana-wound Skin Appearance) Assessed,Dry/ Scaly -Color (Ana-wound Skin Appearance) Assessed -Temperature (Ana-wound Skin No Abnormality Appearance) (Pt Warm) -Tenderness on Palpation (Ana-wound No Skin Appearance) -Ulcer Cleansing Soap and Water -Foul Odor after Cleansing No -Anesthetic Used 4% Lidocaine Solution #6 R Sup LE -Combined with other wound No -Current Size (cm) - Length 2.9 -Current Size (cm) - Width 1.8 -Current Size (cm) - Depth 0.2 -Total Square Cm 5.22 -Photo Taken No -Epithelialization Small 1-33% -Tunneling No -Undermining/Tunneling No -Circular Undermining No -Exudate Amt Medium -Exudate Type Serosanguineous -Wound Margin Distinct, Outline Attached -Granulation Amt Large (67-100%) -Granulation Quality Red -Slough/Fibrin Yes -Necrosis Amt Small (1-33%) -Necrotic Tissue Type Adherent Slough -Texture (Ana-wound Skin Appearance) Assessed, Scarring -Moisture (Ana-wound Skin Appearance) Assessed -Color (Ana-wound Skin Appearance) Assessed -Temperature (Ana-wound Skin No Abnormality Appearance) (Pt Warm) -Tenderness on Palpation (Ana-wound No Skin Appearance) -Ulcer Cleansing Soap and Water -Foul Odor after Cleansing No -Anesthetic Used 4% Lidocaine Solution #5 R Dorsal -Combined with other wound No -Current Size (cm) - Length 1.9 -Current Size (cm) - Width 1.9 -Current Size (cm) - Depth 0.2 -Total Square Cm 3.61 -Photo Taken No -Epithelialization None Present -Tunneling No -Undermining/Tunneling No -Circular Undermining No -Exudate Amt Medium -Exudate Type Serosanguineous -Wound Margin Distinct, Outline Attached -Granulation Amt None Present (0 %) -Slough/Fibrin Yes -Necrosis Amt Large (67-100%) -Necrotic Tissue Type Adherent Slough -Texture (Ana-wound Skin Appearance) Assessed, Scarring -Moisture (Ana-wound Skin Appearance) Assessed, Maceration -Color (Ana-wound Skin Appearance) Assessed, Erythema,Palor -Temperature (Ana-wound Skin No Abnormality Appearance) (Pt Warm) -Tenderness on Palpation (Ana-wound No Skin Appearance) -Ulcer Cleansing Soap and Water -Foul Odor after Cleansing No -Anesthetic Used 4% Lidocaine Solution #4 L Med Cluster -Combined with other wound No -Current Size (cm) - Length 10.6 -Current Size (cm) - Width 1.3 -Current Size (cm) - Depth 0.2 -Total Square Cm 13.78 -Photo Taken No -Epithelialization None Present -Tunneling No -Undermining/Tunneling No -Circular Undermining No -Exudate Amt Medium -Exudate Type Serosanguineous -Wound Margin Distinct, Outline Attached -Granulation Amt Medium (34-66%) -Granulation Quality Red -Slough/Fibrin Yes -Necrosis Amt Medium (34-66%) -Necrotic Tissue Type Adherent Slough -Texture (Ana-wound Skin Appearance) Assessed, Scarring -Moisture (Ana-wound Skin Appearance) Assessed,Dry/ Scaly -Color (Ana-wound Skin Appearance) Assessed -Temperature (Ana-wound Skin No Abnormality Appearance) (Pt Warm) -Tenderness on Palpation (Ana-wound No Skin Appearance) -Ulcer Cleansing Soap and Water -Foul Odor after Cleansing No -Anesthetic Used 4% Lidocaine Solution #3 L Lat heel -Combined with other wound No -Current Size (cm) - Length 0.5 -Current Size (cm) - Width 0.3 -Current Size (cm) - Depth 0.2 -Total Square Cm 0.15 -Photo Taken No -Epithelialization None Present -Tunneling No -Undermining/Tunneling No -Circular Undermining No -Exudate Amt Medium -Exudate Type Serosanguineous -Wound Margin Distinct, Outline Attached -Granulation Amt Small (1-33%) -Granulation Quality [place] -Slough/Fibrin Yes -Necrosis Amt Large (67-100%) -Necrotic Tissue Type Eschar -Texture (Ana-wound Skin Appearance) Assessed, Scarring -Moisture (Ana-wound Skin Appearance) Assessed,Dry/ Scaly -Color (Ana-wound Skin Appearance) Assessed, Erythema -Temperature (Ana-wound Skin No Abnormality Appearance) (Pt Warm) -Tenderness on Palpation (Ana-wound No Skin Appearance) -Ulcer Cleansing Soap and Water -Foul Odor after Cleansing No -Anesthetic Used 4% Lidocaine Solution #2 L 3rd toe -Combined with other wound No -Current Size (cm) - Length 1.1 -Current Size (cm) - Width 0.4 -Current Size (cm) - Depth 0.2 -Total Square Cm 0.44 -Photo Taken No -Epithelialization None Present -Tunneling No -Undermining/Tunneling No -Circular Undermining No -Exudate Amt Medium -Exudate Type Serosanguineous -Wound Margin Distinct, Outline Attached -Granulation Amt None Present (0 %) -Slough/Fibrin Yes -Necrosis Amt Large (67-100%) -Necrotic Tissue Type Adherent Slough -Texture (Ana-wound Skin Appearance) Assessed, Scarring -Moisture (Ana-wound Skin Appearance) Assessed, Maceration -Color (Ana-wound Skin Appearance) Assessed, Erythema,Palor -Temperature (Ana-wound Skin No Abnormality Appearance) (Pt Warm) -Tenderness on Palpation (Ana-wound No Skin Appearance) -Ulcer Cleansing Soap and Water -Foul Odor after Cleansing No -Anesthetic Used 4% Lidocaine Solution #1 L Hallux -Combined with other wound No -Current Size (cm) - Length 1.8 -Current Size (cm) - Width 0.8 -Current Size (cm) - Depth 0.2 -Total Square Cm 1.44 -Photo Taken No -Epithelialization None Present -Tunneling No -Undermining/Tunneling No -Circular Undermining No -Exudate Amt Medium -Exudate Type Serosanguineous -Wound Margin Distinct, Outline Attached -Granulation Amt None Present (0 %) -Slough/Fibrin Yes -Necrosis Amt Large (67-100%) -Necrotic Tissue Type Adherent Slough -Texture (Ana-wound Skin Appearance) Assessed -Moisture (Ana-wound Skin Appearance) Assessed, Maceration -Color (Ana-wound Skin Appearance) Assessed, Erythema,Palor -Temperature (Ana-wound Skin No Abnormality Appearance) (Pt Warm) -Tenderness on Palpation (Ana-wound No Skin Appearance) -Ulcer Cleansing Soap and Water -Foul Odor after Cleansing No -Anesthetic Used 4% Lidocaine Solution Lower Limb Edema Present Yes Right Calf (cm) 30.8 Right Ankle (cm) 20.5 Left Calf (cm) 34 Left Ankle (cm) 23.6 WC - Nurse 2 - General Ulcer CM Notes Start: 01/04/22 08:08 Freq: Status: Active Protocol: Activity Type Activity Date Activity User E-sign Co-sign Detail Recorded Client Recorded Date Recorded By Document 01/04/22 08:35 MW [id number] 01/04/22 09:05 MW 01/04/22 08:35 Wound Center Nurse 2 #7 R Inf. LE -Time 08:35 -Correct Patient Yes -Correct Side, Site, Position Yes -Correct Procedure Yes -Procedure Performed Yes -Type of Procedure Debridement -Clinical Debridement Subcutaneous -Tissue Removed Subcutaneous -Post Debridement (cm) - Length 3.0 -Post Debridement (cm) - Width 1.3 -Post Debridement (cm) - Depth 0.1 -Total Square (Post) (cm) 3.90 -Area of Debridement (cm) - Length 3.0 -Area of Debridement (cm) - Width 1.3 -Total Square (Area) (cm) 3.90 -Tunneling No -Undermining/Tunneling No -Circular Undermining No -Wound/Ulcer Outcome Not Healed -Ulcer Cleansing Rinsed/ Irrigated with Saline -Foul Odor after Cleansing No -Bioengineered Tissue No -Bleeding Controlled with Pressure -Treatment Response Procedure Tolerated Well -Offloading No -Debridement - Subq, 1st 20sq cm Yes #6 R Sup LE -Time 08:35 -Correct Patient Yes -Correct Side, Site, Position Yes -Correct Procedure Yes -Procedure Performed Yes -Type of Procedure Debridement -Clinical Debridement Subcutaneous -Tissue Removed Subcutaneous -Post Debridement (cm) - Length 3.0 -Post Debridement (cm) - Width 1.6 -Post Debridement (cm) - Depth 0.1 -Total Square (Post) (cm) 4.80 -Area of Debridement (cm) - Length 3.0 -Area of Debridement (cm) - Width 1.6 -Total Square (Area) (cm) 4.80 -Tunneling No -Undermining/Tunneling No -Circular Undermining No -Wound/Ulcer Outcome Not Healed -Ulcer Cleansing Rinsed/ Irrigated with Saline -Foul Odor after Cleansing No -Bioengineered Tissue No -Bleeding Controlled with Pressure -Treatment Response Procedure Tolerated Well -Offloading No -Debridement - Subq, 1st 20sq cm No #5 R Dorsal -Time 08:36 -Correct Patient Yes -Correct Side, Site, Position Yes -Correct Procedure Yes -Procedure Performed Yes -Type of Procedure Debridement -Clinical Debridement Subcutaneous -Tissue Removed Subcutaneous -Post Debridement (cm) - Length 1.4 -Post Debridement (cm) - Width 1.2 -Post Debridement (cm) - Depth 0.3 -Total Square (Post) (cm) 1.68 -Area of Debridement (cm) - Length 1.4 -Area of Debridement (cm) - Width 1.2 -Total Square (Area) (cm) 1.68 -Tunneling No -Undermining/Tunneling No -Circular Undermining No -Wound/Ulcer Outcome Not Healed -Ulcer Cleansing Rinsed/ Irrigated with Saline -Foul Odor after Cleansing No -Bioengineered Tissue No -Bleeding Controlled with Pressure -Treatment Response Procedure Tolerated Well -Offloading No -Debridement - Subq, 1st 20sq cm No #4 L Med Cluster -Time 08:36 -Correct Patient Yes -Correct Side, Site, Position Yes -Correct Procedure Yes -Procedure Performed Yes -Type of Procedure Debridement -Clinical Debridement Subcutaneous -Tissue Removed Subcutaneous -Post Debridement (cm) - Length 12.1 -Post Debridement (cm) - Width 3.7 -Post Debridement (cm) - Depth 0.2 -Total Square (Post) (cm) 44.77 -Area of Debridement (cm) - Length 12.1 -Area of Debridement (cm) - Width 3.7 -Total Square (Area) (cm) 44.77 -Tunneling No -Undermining/Tunneling No -Circular Undermining No -Wound/Ulcer Outcome Not Healed -Ulcer Cleansing Rinsed/ Irrigated with Saline -Foul Odor after Cleansing No -Bioengineered Tissue Yes -Type of Bioengineered Tissue Epifix Mesh -Expiration Date 09/29/26 -Product Lot Number [id number] -Percent Used 100 -Lot number of Saline Used [id number] -Bleeding Controlled with Pressure -Treatment Response Procedure Tolerated Well -Offloading No -Debridement - Subq, 1st 20sq cm No -Apply Skin Sub - 1st 25 sq cm - Legs 1 -Epifix Mesh (per sq cm) 11 #3 L Lat heel -Time 08:37 -Correct Patient Yes -Correct Side, Site, Position Yes -Correct Procedure Yes -Procedure Performed Yes -Type of Procedure Debridement -Clinical Debridement Subcutaneous -Tissue Removed Subcutaneous -Post Debridement (cm) - Length 0.4 -Post Debridement (cm) - Width 0.4 -Post Debridement (cm) - Depth 0.1 -Total Square (Post) (cm) 0.16 -Area of Debridement (cm) - Length 0.4 -Area of Debridement (cm) - Width 0.4 -Total Square (Area) (cm) 0.16 -Tunneling No -Undermining/Tunneling No -Circular Undermining No -Wound/Ulcer Outcome Not Healed -Ulcer Cleansing Rinsed/ Irrigated with Saline -Foul Odor after Cleansing No -Bioengineered Tissue No -Bleeding Controlled with Pressure -Treatment Response Procedure Tolerated Well -Offloading No -Debridement - Subq, 1st 20sq cm No #2 L 3rd toe -Time 08:37 -Correct Patient Yes -Correct Side, Site, Position Yes -Correct Procedure Yes -Procedure Performed Yes -Type of Procedure Debridement -Clinical Debridement Subcutaneous -Tissue Removed Subcutaneous -Post Debridement (cm) - Length 1.3 -Post Debridement (cm) - Width 0.5 -Post Debridement (cm) - Depth 0.1 -Total Square (Post) (cm) 0.65 -Area of Debridement (cm) - Length 1.3 -Area of Debridement (cm) - Width 0.5 -Total Square (Area) (cm) 0.65 -Tunneling No -Undermining/Tunneling No -Circular Undermining No -Wound/Ulcer Outcome Not Healed -Ulcer Cleansing Rinsed/ Irrigated with Saline -Foul Odor after Cleansing No -Bioengineered Tissue No -Bleeding Controlled with Pressure -Treatment Response Procedure Tolerated Well -Offloading No -Debridement - Subq, 1st 20sq cm No #1 L Hallux -Time 08:38 -Correct Patient Yes -Correct Side, Site, Position Yes -Correct Procedure Yes -Procedure Performed Yes -Type of Procedure Debridement -Clinical Debridement Subcutaneous -Tissue Removed Subcutaneous -Post Debridement (cm) - Length 2.0 -Post Debridement (cm) - Width 1.3 -Post Debridement (cm) - Depth 0.1 -Total Square (Post) (cm) 2.60 -Area of Debridement (cm) - Length 2.0 -Area of Debridement (cm) - Width 1.3 -Total Square (Area) (cm) 2.60 -Tunneling No -Undermining/Tunneling No -Circular Undermining No -Wound/Ulcer Outcome Not Healed -Ulcer Cleansing Rinsed/ Irrigated with Saline -Foul Odor after Cleansing No -Bioengineered Tissue No -Bleeding Controlled with Pressure -Treatment Response Procedure Tolerated Well -Offloading No -Debridement - Subq, 1st 20sq cm No Pain Scale: 0-10 Numeric Is Patient Pain Free? Yes Additional Wound Wound debrided: Right Lower extremity ( Inferior ) Type of Debridement: Excisional debridement Anesthesia Used: 4% Lidocaine Solution Depth: Down to and including healthy tissue Percentage of wound debrided: 100 Instrument Used: 5mm curette Tissue Removed: Slough and devitalized tissue Severity: Fat Layer Exposed Amount of bleeding with debridement: Mild Bleeding Controlled with: Pressure Patient tolerated procedure: Patient tolerated procedure well Additional Wound Wound debrided: Right Foot ( Dorsal ) Type of Debridement: Excisional debridement Anesthesia Used: 4% Lidocaine Solution Depth: Down to and including healthy tissue and in the subcutaneous layer Percentage of wound debrided: 100 Instrument Used: 5mm curette Tissue Removed: Slough and devitalized tissue Severity: Fat Layer Exposed Amount of bleeding with debridement: Mild Bleeding Controlled with: Pressure Patient tolerated procedure: Patient tolerated procedure well Additional Wound Wound debrided: Left Medial Cluster Type of Debridement: Excisional debridement Anesthesia Used: 4% Lidocaine Solution Depth: Down to and including healthy tissue and in the subcutaneous layer Percentage of wound debrided: 100 Instrument Used: 5mm curette Tissue Removed: Slough and devitalized tissue Severity: Fat Layer Exposed Amount of bleeding with debridement: Mild Bleeding Controlled with: Pressure Patient tolerated procedure: Patient tolerated procedure well Additional Wound Wound debrided: Left great toe Type of Debridement: Excisional debridement Anesthesia Used: 4% Lidocaine Solution Depth: Down to and including healthy tissue and in the subcutaneous layer Percentage of wound debrided: 100 Instrument Used: 3mm curette Tissue Removed: Slough and devitalized tissue Severity: Fat Layer Exposed Amount of bleeding with debridement: Mild Bleeding Controlled with: Pressure Patient tolerated procedure: Patient tolerated procedure well Additional Wound Wound debrided: Left Third Toe Type of Debridement: Excisional debridement Anesthesia Used: 4% Lidocaine Solution Depth: Down to and including healthy tissue and in the subcutaneous layer Percentage of wound debrided: 100 Instrument Used: 5mm curette Tissue Removed: Slough and devitalized tissue Severity: Fat Layer Exposed Amount of bleeding with debridement: Mild Bleeding Controlled with: Pressure Patient tolerated procedure: Patient tolerated procedure well Additional Wound Wound debrided: Left Heel ( Lateral ) Type of Debridement: Excisional debridement Anesthesia Used: 4% Lidocaine Solution Depth: Down to and including healthy tissue and in the subcutaneous layer Percentage of wound debrided: 100 Instrument Used: 3mm curette Tissue Removed: Slough and devitalized tissue Severity: Fat Layer Exposed Amount of bleeding with debridement: Mild Bleeding Controlled with: Pressure Patient tolerated procedure: Patient tolerated procedure well Assessment/Plan Assessment/Plan (1) Ulcer of left lower extremity with fat layer exposed: CODE(S): L97.922 - Non-pressure chronic ulcer of unspecified part of left lower leg with fat layer exposed (2) Ulcer of right lower extremity with fat layer exposed: CODE(S): L97.912 - Non-pressure chronic ulcer of unspecified part of right lower leg with fat layer exposed (3) Bilateral lower extremity edema: CODE(S): R60.0 - Localized edema (4) Type 2 diabetes mellitus: CODE(S): E11.9 - Type 2 diabetes mellitus without complications (5) Cellulitis of leg: CODE(S): L03.119 - Cellulitis of unspecified part of limb (6) shelter current use of 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: CODE(S): 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 5th application of epi fix done to left lower extremity. Promogran over top. Covered with adaptic touch. Due to maceration noted, change outer dressing of toes daily. 3M wrap for edema management, come in on Saturday for nurse visit/change. Continue Promogran to right lower extremity ulcers. 3M wrap as well to right lower extremity for edema management, change on Saturday. Exercise as tolerated. Increase protein intake, vitamin C and zinc discussed. Optimal diabetes control discussed. Their questions were answered and they were advised to call with any further questions or concerns. Follow-up in 1 week or sooner if needed. This note was generated with [employer] dictation software. It may contain incorrect words, spelling, and punctuation that were not noted in checking the note before signing.
[2022-01-11 08:40] VITALS: RESP 20; TEMP 36.4
--- NOTE | 2022-01-11 13:30 | PCM.WC.PN ---
History of Present Illness Date of Service: 01/11/22 Chief Complaint: Bilateral lower extremity ulcer History of Wound: Mr. Brandt is a 76-year-old who presents to the wound center due to non healing bilateral lower extremity ulcerations. He states that it started out as significant bilateral lower extremity swelling on the 10 of September. He sat for 4 straight hours mowing his lawn. Woke up the next day with significant lower extremity swelling. Currently on Lasix which he states that he has been taking. Bought some compression stockings but could not use it because it was too tight. He is mostly sedentary. History of diabetes mellitus type 2, he reports good control. Does not have as much feeling in his lower extremities. He presented to the hospital almost a week ago due to worsening bilateral lower extremity pain, redness, chills and feeling of unwell. Managed for cellulitis. Discharged on antibiotics. Feels better today. Still a lot of drainage and lower extremity swelling. Progress of Wound: Some improvement in Right lower extremity superior. Worsened Edema and Left foot Maceration. New right medial ulcer. Has had 5 applications of Epifix. Objective Data Objective Data Vital Signs: Vital Signs Temp Pulse Resp BP O2 Del Method 97.5 F L 78 20 H 125/40 H Room Air 01/11/22 08:40 01/04/22 08:08 01/11/22 08:40 01/04/22 08:08 01/04/22 08:08 Oxygen Delivery Method Room Air Charges/Coding Procedures Integumentary 111xxx-113xx: 61699 Jannie subq tissue 20 sq cm/< Add On Codes: 48855 Jannie subq tissue add-on (x3. Additional Sq Cm debrided, please refer to clinical note.) Physical Exam Const alert, oriented x3 and no apparent distress General Appearance: cooperative, comfortable and well developed Orientation / Consciousness: awake HEENT normocephalic, head/scalp atraumatic and hearing grossly normal bilaterally Eyes General Eye: normal appearance of both eyes Neck full ROM and supple General: normal visual inspection Resp normal respiratory effort Effort and Inspection: able to speak in complete sentences Extremity full ROM General Extremity: edema Skin Wounds: wounds noted Neuro oriented x3, CN's II-XII intact bilaterally, moves all extremities and no focal motor deficits Psych mental status grossly normal Appearance: grossly normal Attitude: calm Activity / Motor Behavior: appropriate eye contact Debridement Note Debridement Note Wound debrided: Right Lower Extremity ( Superior ) Type of Debridement: Excisional debridement Anesthesia Used: 4% Lidocaine Solution Depth: Down to and including healthy tissue and in the subcutaneous layer Percentage of wound debrided: 100 Instrument Used: 5mm curette Tissue Removed: Slough and devitalized tissue Severity: Fat Layer Exposed Amount of bleeding with debridement: Mild Bleeding Controlled with: Pressure Patient tolerated procedure: Patient tolerated procedure well Post-Debridement Measurements and Additional Note: Post-Debridement Measurements/Treatment - Nurse 1 - General Ulcer Assessment Start: 01/04/22 08:08 Freq: Status: Active Protocol: [email or web address] Activity Type Activity Date Activity User E-sign Co-sign Detail Recorded Client Recorded Date Recorded By Document 01/04/22 08:08 BMF [id number] 01/04/22 08:25 BMF Document 01/11/22 08:40 DL [id number] 01/11/22 08:55 DL 01/04/22 01/11/22 08:08 08:40 - Today's Visit Information Type of service Follow-up Visit Follow-up Visit (Physician/INSPECTOR MATERIALS [employer] PROCESSES (Physician/INSPECTOR [employer]ES ) ) Arrival Mode Ambulatory Ambulatory Transfer Assistance None None Accompanied by Patient Identification Verified (Name & Yes Yes ) Patient Requires Transmission-Based No No Precautions Vital Signs Temperature (97.8 F-99.1 F) 97.1 F L 97.5 F L Temperature Source Temporal Temporal Pulse Rate (60-100) 78 Pulse Location Monitor Respiratory Rate (12-18) 16 20 H Respiratory rate source Observation Observation Oxygen Delivery Method Room Air Blood Pressure (90/60-120/80) 125/40 H Blood Pressure Mean (mm Hg) 68 Source Monitor Position Sitting Blood Pressure Location Left Forearm History Since Last Visit- (Skip if this is Patient's initial visit) Have you changed medications since your No No last visit? Any new allergies or adverse reactions No No Had a fall/change in ADL's that may No No increase risk of falls Signs or symptoms of abuse and/or No No neglect since last visit Have you been in the hospital since your No No last visit? Has dressing in place as prescribed Yes Yes Has compression in place as prescribed Yes Yes Has offloadiing in place as prescribed N/A N/A Experienced any changes in pain level or No No management Left Footwear Surgical Shoe Surgical Shoe with pressure with pressure relief insole relief insole Right Footwear Regular Shoe Slipper Pain Scale: 0-10 Numeric Is Patient Pain Free? Yes Yes WC - Nurse 1 - General Ulcer Measurement Start: 01/04/22 08:08 Freq: Status: Active Protocol: Activity Type Activity Date Activity User E-sign Co-sign Detail Recorded Client Recorded Date Recorded By Document 01/04/22 08:08 BMF [id number] 01/04/22 08:25 BMF Document 01/11/22 08:40 DL [id number] 01/11/22 08:55 DL 01/04/22 01/11/22 08:08 08:40 Wound Center Nurse 1 #8 R LE Med -Current Size (cm) - Length 1 -Current Size (cm) - Width 1 -Current Size (cm) - Depth 0.2 -Total Square Cm 1 -Photo Taken Yes -Exudate Amt Small -Exudate Type Serosanguineous -Wound Margin Distinct, Outline Attached -Granulation Amt Large (67-100%) -Granulation Quality Pale -Necrosis Amt Small (1-33%) -Necrotic Tissue Type Adherent Slough -Structure Exposed N/A -Texture (Ana-wound Skin Appearance) Scarring -Moisture (Ana-wound Skin Appearance) Dry/Scaly -Color (Ana-wound Skin Appearance) Hemosiderin Staining -Temperature (Ana-wound Skin No Abnormality Appearance) (Pt Warm) -Tenderness on Palpation (Ana-wound No Skin Appearance) -Ulcer Cleansing Soap and Water -Foul Odor after Cleansing No -Anesthetic Used 5% Lidocaine Gel #7 R Inf. LE -Combined with other wound No -Current Size (cm) - Length 1.8 2.7 -Current Size (cm) - Width 0.8 1.7 -Current Size (cm) - Depth 0.2 0.2 -Total Square Cm 1.44 4.59 -Photo Taken No No -Epithelialization None Present -Tunneling No -Undermining/Tunneling No -Circular Undermining No -Exudate Amt Medium Medium -Exudate Type Serosanguineous Serosanguineous -Wound Margin Distinct, Distinct, Outline Outline Attached Attached -Granulation Amt Small (1-33%) None Present (0 %) -Granulation Quality Red -Slough/Fibrin Yes -Necrosis Amt Large (67-100%) Medium (34-66%) -Necrotic Tissue Type Adherent Slough Adherent Slough -Texture (Ana-wound Skin Appearance) Assessed, Scarring Fluctuance -Moisture (Ana-wound Skin Appearance) Assessed,Dry/ Dry/Scaly Scaly -Color (Ana-wound Skin Appearance) Assessed Hemosiderin Staining -Temperature (Ana-wound Skin No Abnormality No Abnormality Appearance) (Pt Warm) (Pt Warm) -Tenderness on Palpation (Ana-wound No No Skin Appearance) -Ulcer Cleansing Soap and Water Soap and Water -Foul Odor after Cleansing No No -Anesthetic Used 4% Lidocaine 5% Lidocaine Solution Gel #6 R Sup LE -Combined with other wound No -Current Size (cm) - Length 2.9 2.8 -Current Size (cm) - Width 1.8 1.4 -Current Size (cm) - Depth 0.2 0.1 -Total Square Cm 5.22 3.92 -Photo Taken No No -Epithelialization Small 1-33% -Tunneling No -Undermining/Tunneling No -Circular Undermining No -Exudate Amt Medium Medium -Exudate Type Serosanguineous Serosanguineous -Wound Margin Distinct, Distinct, Outline Outline Attached Attached -Granulation Amt Large (67-100%) None Present (0 %) -Granulation Quality Red -Slough/Fibrin Yes -Necrosis Amt Small (1-33%) Large (67-100%) -Necrotic Tissue Type Adherent Slough Adherent Slough -Structure Exposed N/A -Texture (Ana-wound Skin Appearance) Assessed, Scarring Scarring -Moisture (Ana-wound Skin Appearance) Assessed Dry/Scaly -Color (Ana-wound Skin Appearance) Assessed Hemosiderin Staining -Temperature (Ana-wound Skin No Abnormality No Abnormality Appearance) (Pt Warm) (Pt Warm) -Tenderness on Palpation (Ana-wound No No Skin Appearance) -Ulcer Cleansing Soap and Water Soap and Water -Foul Odor after Cleansing No No -Anesthetic Used 4% Lidocaine 5% Lidocaine Solution Gel #5 R Dorsal -Combined with other wound No -Current Size (cm) - Length 1.9 1.4 -Current Size (cm) - Width 1.9 1.2 -Current Size (cm) - Depth 0.2 0.2 -Total Square Cm 3.61 1.68 -Photo Taken No No -Epithelialization None Present -Tunneling No -Undermining/Tunneling No -Circular Undermining No -Exudate Amt Medium Medium -Exudate Type Serosanguineous Serosanguineous -Wound Margin Distinct, Distinct, Outline Outline Attached Attached -Granulation Amt None Present (0 None Present (0 %) %) -Slough/Fibrin Yes -Necrosis Amt Large (67-100%) Large (67-100%) -Necrotic Tissue Type Adherent Slough Adherent Slough -Structure Exposed N/A -Texture (Ana-wound Skin Appearance) Assessed, Scarring Scarring -Moisture (Ana-wound Skin Appearance) Assessed, Dry/Scaly Maceration -Color (Ana-wound Skin Appearance) Assessed, Hemosiderin Erythema,Palor Staining -Temperature (Ana-wound Skin No Abnormality No Abnormality Appearance) (Pt Warm) (Pt Warm) -Tenderness on Palpation (Ana-wound No No Skin Appearance) -Ulcer Cleansing Soap and Water -Foul Odor after Cleansing No No -Anesthetic Used 4% Lidocaine 4% Lidocaine Solution Solution #4 L Med Cluster -Combined with other wound No -Current Size (cm) - Length 10.6 10.5 -Current Size (cm) - Width 1.3 2.5 -Current Size (cm) - Depth 0.2 0.2 -Total Square Cm 13.78 26.25 -Photo Taken No No -Epithelialization None Present -Tunneling No -Undermining/Tunneling No -Circular Undermining No -Exudate Amt Medium Medium -Exudate Type Serosanguineous Serosanguineous -Wound Margin Distinct, Distinct, Outline Outline Attached Attached -Granulation Amt Medium (34-66%) None Present (0 %) -Granulation Quality Red -Slough/Fibrin Yes -Necrosis Amt Medium (34-66%) Large (67-100%) -Necrotic Tissue Type Adherent Slough Adherent Slough -Structure Exposed N/A -Texture (Ana-wound Skin Appearance) Assessed, Scarring Scarring -Moisture (Ana-wound Skin Appearance) Assessed,Dry/ Dry/Scaly Scaly -Color (Ana-wound Skin Appearance) Assessed Hemosiderin Staining -Temperature (Ana-wound Skin No Abnormality No Abnormality Appearance) (Pt Warm) (Pt Warm) -Tenderness on Palpation (Ana-wound No No Skin Appearance) -Ulcer Cleansing Soap and Water Soap and Water -Foul Odor after Cleansing No No -Anesthetic Used 4% Lidocaine 5% Lidocaine Solution Gel #3 L Lat heel -Combined with other wound No -Current Size (cm) - Length 0.5 0.3 -Current Size (cm) - Width 0.3 0.2 -Current Size (cm) - Depth 0.2 0.2 -Total Square Cm 0.15 0.06 -Photo Taken No No -Epithelialization None Present -Tunneling No -Undermining/Tunneling No -Circular Undermining No -Exudate Amt Medium Small -Exudate Type Serosanguineous Serosanguineous -Wound Margin Distinct, Distinct, Outline Outline Attached Attached -Granulation Amt Small (1-33%) Small (1-33%) -Granulation Quality [place] -Slough/Fibrin Yes -Necrosis Amt Large (67-100%) None Present (0 %) -Necrotic Tissue Type Eschar -Structure Exposed N/A -Texture (Ana-wound Skin Appearance) Assessed, Scarring Scarring -Moisture (Ana-wound Skin Appearance) Assessed,Dry/ Dry/Scaly Scaly -Color (Ana-wound Skin Appearance) Assessed, Hemosiderin Erythema Staining -Temperature (Ana-wound Skin No Abnormality No Abnormality Appearance) (Pt Warm) (Pt Warm) -Tenderness on Palpation (Ana-wound No No Skin Appearance) -Ulcer Cleansing Soap and Water Soap and Water -Foul Odor after Cleansing No No -Anesthetic Used 4% Lidocaine 5% Lidocaine Solution Gel #2 L 3rd toe -Combined with other wound No -Current Size (cm) - Length 1.1 1.2 -Current Size (cm) - Width 0.4 0.4 -Current Size (cm) - Depth 0.2 0.1 -Total Square Cm 0.44 0.48 -Photo Taken No No -Epithelialization None Present -Tunneling No -Undermining/Tunneling No -Circular Undermining No -Exudate Amt Medium Medium -Exudate Type Serosanguineous Serosanguineous -Wound Margin Distinct, Distinct, Outline Outline Attached Attached -Granulation Amt None Present (0 None Present (0 %) %) -Slough/Fibrin Yes -Necrosis Amt Large (67-100%) Large (67-100%) -Necrotic Tissue Type Adherent Slough Adherent Slough -Structure Exposed N/A -Texture (Ana-wound Skin Appearance) Assessed, Scarring Scarring -Moisture (Ana-wound Skin Appearance) Assessed, Dry/Scaly Maceration -Color (Ana-wound Skin Appearance) Assessed, Hemosiderin Erythema,Palor Staining -Temperature (Ana-wound Skin No Abnormality No Abnormality Appearance) (Pt Warm) (Pt Warm) -Tenderness on Palpation (Ana-wound No No Skin Appearance) -Ulcer Cleansing Soap and Water Soap and Water -Foul Odor after Cleansing No No -Anesthetic Used 4% Lidocaine 5% Lidocaine Solution Gel #1 L Hallux -Combined with other wound No -Current Size (cm) - Length 1.8 1.8 -Current Size (cm) - Width 0.8 1.3 -Current Size (cm) - Depth 0.2 0.1 -Total Square Cm 1.44 2.34 -Photo Taken No No -Epithelialization None Present -Tunneling No -Undermining/Tunneling No -Circular Undermining No -Exudate Amt Medium Medium -Exudate Type Serosanguineous Serosanguineous -Wound Margin Distinct, Distinct, Outline Outline Attached Attached -Granulation Amt None Present (0 None Present (0 %) %) -Slough/Fibrin Yes -Necrosis Amt Large (67-100%) Large (67-100%) -Necrotic Tissue Type Adherent Slough Adherent Slough -Structure Exposed N/A -Texture (Ana-wound Skin Appearance) Assessed Scarring -Moisture (Ana-wound Skin Appearance) Assessed, Dry/Scaly Maceration -Color (Ana-wound Skin Appearance) Assessed, Hemosiderin Erythema,Palor Staining -Temperature (Ana-wound Skin No Abnormality No Abnormality Appearance) (Pt Warm) (Pt Warm) -Tenderness on Palpation (Ana-wound No No Skin Appearance) -Ulcer Cleansing Soap and Water Soap and Water -Foul Odor after Cleansing No No -Anesthetic Used 4% Lidocaine 5% Lidocaine Solution Gel Lower Limb Edema Present Yes Right Calf (cm) 30.8 31.6 Right Ankle (cm) 20.5 22.1 Left Calf (cm) 34 34.7 Left Ankle (cm) 23.6 24.2 WC - Nurse 2 - General Ulcer CM Notes Start: 01/04/22 08:08 Freq: Status: Active Protocol: Activity Type Activity Date Activity User E-sign Co-sign Detail Recorded Client Recorded Date Recorded By Document 01/04/22 08:35 MW [id number] 01/04/22 09:05 MW Document 01/11/22 09:13 MW [id number] 01/11/22 09:30 MW 01/04/22 01/11/22 08:35 09:13 Wound Center Nurse 2 #8 R LE Med -Time 09:14 -Correct Patient Yes -Correct Side, Site, Position Yes -Correct Procedure Yes -Procedure Performed Yes -Type of Procedure Debridement -Clinical Debridement Subcutaneous -Tissue Removed Subcutaneous -Post Debridement (cm) - Length 2.0 -Post Debridement (cm) - Width 1.3 -Post Debridement (cm) - Depth 0.1 -Total Square (Post) (cm) 2.60 -Area of Debridement (cm) - Length 2.0 -Area of Debridement (cm) - Width 1.3 -Total Square (Area) (cm) 2.60 -Tunneling No -Undermining/Tunneling No -Circular Undermining No -Wound/Ulcer Outcome Not Healed -Ulcer Cleansing Rinsed/ Irrigated with Saline -Foul Odor after Cleansing No -Bioengineered Tissue No -Bleeding Controlled with Pressure -Treatment Response Procedure Tolerated Well -Offloading No -Debridement - Subq, 1st 20sq cm Yes -Debridement, SubQ, ea addt'l 20sq cm 3 or part thereof #7 R Inf. LE -Time 08:35 09:15 -Correct Patient Yes Yes -Correct Side, Site, Position Yes Yes -Correct Procedure Yes Yes -Procedure Performed Yes Yes -Type of Procedure Debridement Debridement -Clinical Debridement Subcutaneous Subcutaneous -Tissue Removed Subcutaneous Subcutaneous -Post Debridement (cm) - Length 3.0 3.0 -Post Debridement (cm) - Width 1.3 1.4 -Post Debridement (cm) - Depth 0.1 0.1 -Total Square (Post) (cm) 3.90 4.20 -Area of Debridement (cm) - Length 3.0 3.0 -Area of Debridement (cm) - Width 1.3 1.4 -Total Square (Area) (cm) 3.90 4.20 -Tunneling No No -Undermining/Tunneling No No -Circular Undermining No No -Wound/Ulcer Outcome Not Healed Not Healed -Ulcer Cleansing Rinsed/ Rinsed/ Irrigated with Irrigated with Saline Saline -Foul Odor after Cleansing No No -Bioengineered Tissue No No -Bleeding Controlled with Pressure Pressure -Treatment Response Procedure Procedure Tolerated Well Tolerated Well -Offloading No No -Debridement - Subq, 1st 20sq cm Yes No #6 R Sup LE -Time 08:35 09:16 -Correct Patient Yes Yes -Correct Side, Site, Position Yes Yes -Correct Procedure Yes Yes -Procedure Performed Yes Yes -Type of Procedure Debridement Debridement -Clinical Debridement Subcutaneous Subcutaneous -Tissue Removed Subcutaneous Subcutaneous -Post Debridement (cm) - Length 3.0 2.7 -Post Debridement (cm) - Width 1.6 1.3 -Post Debridement (cm) - Depth 0.1 0.1 -Total Square (Post) (cm) 4.80 3.51 -Area of Debridement (cm) - Length 3.0 2.7 -Area of Debridement (cm) - Width 1.6 1.3 -Total Square (Area) (cm) 4.80 3.51 -Tunneling No No -Undermining/Tunneling No No -Circular Undermining No No -Wound/Ulcer Outcome Not Healed Not Healed -Ulcer Cleansing Rinsed/ Rinsed/ Irrigated with Irrigated with Saline Saline -Foul Odor after Cleansing No No -Bioengineered Tissue No No -Bleeding Controlled with Pressure Pressure -Treatment Response Procedure Procedure Tolerated Well Tolerated Well -Offloading No No -Debridement - Subq, 1st 20sq cm No No #5 R Dorsal -Time 08:36 09:16 -Correct Patient Yes Yes -Correct Side, Site, Position Yes Yes -Correct Procedure Yes Yes -Procedure Performed Yes Yes -Type of Procedure Debridement Debridement -Clinical Debridement Subcutaneous Subcutaneous -Tissue Removed Subcutaneous Subcutaneous -Post Debridement (cm) - Length 1.4 1.5 -Post Debridement (cm) - Width 1.2 1.3 -Post Debridement (cm) - Depth 0.3 0.1 -Total Square (Post) (cm) 1.68 1.95 -Area of Debridement (cm) - Length 1.4 1.5 -Area of Debridement (cm) - Width 1.2 1.3 -Total Square (Area) (cm) 1.68 1.95 -Tunneling No No -Undermining/Tunneling No No -Circular Undermining No No -Wound/Ulcer Outcome Not Healed Not Healed -Ulcer Cleansing Rinsed/ Rinsed/ Irrigated with Irrigated with Saline Saline -Foul Odor after Cleansing No No -Bioengineered Tissue No No -Bleeding Controlled with Pressure Pressure -Treatment Response Procedure Procedure Tolerated Well Tolerated Well -Offloading No No -Debridement - Subq, 1st 20sq cm No No #4 L Med Cluster -Time 08:36 09:17 -Correct Patient Yes Yes -Correct Side, Site, Position Yes Yes -Correct Procedure Yes Yes -Procedure Performed Yes Yes -Type of Procedure Debridement Debridement -Clinical Debridement Subcutaneous Subcutaneous -Tissue Removed Subcutaneous Subcutaneous -Post Debridement (cm) - Length 12.1 12.2 -Post Debridement (cm) - Width 3.7 4.0 -Post Debridement (cm) - Depth 0.2 0.2 -Total Square (Post) (cm) 44.77 48.80 -Area of Debridement (cm) - Length 12.1 12.2 -Area of Debridement (cm) - Width 3.7 4.0 -Total Square (Area) (cm) 44.77 48.80 -Tunneling No No -Undermining/Tunneling No No -Circular Undermining No No -Wound/Ulcer Outcome Not Healed Not Healed -Ulcer Cleansing Rinsed/ Rinsed/ Irrigated with Irrigated with Saline Saline -Foul Odor after Cleansing No No -Bioengineered Tissue Yes No -Type of Bioengineered Tissue Epifix Mesh -Expiration Date 09/29/26 -Product Lot Number [id number] -Percent Used 100 -Lot number of Saline Used [id number] -Bleeding Controlled with Pressure Pressure -Treatment Response Procedure Procedure Tolerated Well Tolerated Well -Offloading No No -Debridement - Subq, 1st 20sq cm No No -Apply Skin Sub - 1st 25 sq cm - Legs 1 -Epifix Mesh (per sq cm) 11 #3 L Lat heel -Time 08:37 09:17 -Correct Patient Yes Yes -Correct Side, Site, Position Yes Yes -Correct Procedure Yes Yes -Procedure Performed Yes Yes -Type of Procedure Debridement Debridement -Clinical Debridement Subcutaneous Subcutaneous -Tissue Removed Subcutaneous Subcutaneous -Post Debridement (cm) - Length 0.4 0.5 -Post Debridement (cm) - Width 0.4 0.5 -Post Debridement (cm) - Depth 0.1 0.1 -Total Square (Post) (cm) 0.16 0.25 -Area of Debridement (cm) - Length 0.4 0.5 -Area of Debridement (cm) - Width 0.4 0.5 -Total Square (Area) (cm) 0.16 0.25 -Tunneling No No -Undermining/Tunneling No No -Circular Undermining No No -Wound/Ulcer Outcome Not Healed Not Healed -Ulcer Cleansing Rinsed/ Rinsed/ Irrigated with Irrigated with Saline Saline -Foul Odor after Cleansing No No -Bioengineered Tissue No No -Bleeding Controlled with Pressure Pressure -Treatment Response Procedure Procedure Tolerated Well Tolerated Well -Offloading No No -Debridement - Subq, 1st 20sq cm No No #2 L 3rd toe -Time 08:37 09:17 -Correct Patient Yes Yes -Correct Side, Site, Position Yes Yes -Correct Procedure Yes Yes -Procedure Performed Yes Yes -Type of Procedure Debridement Debridement -Clinical Debridement Subcutaneous Subcutaneous -Tissue Removed Subcutaneous Subcutaneous -Post Debridement (cm) - Length 1.3 1.3 -Post Debridement (cm) - Width 0.5 0.5 -Post Debridement (cm) - Depth 0.1 0.1 -Total Square (Post) (cm) 0.65 0.65 -Area of Debridement (cm) - Length 1.3 1.3 -Area of Debridement (cm) - Width 0.5 0.5 -Total Square (Area) (cm) 0.65 0.65 -Tunneling No No -Undermining/Tunneling No No -Circular Undermining No No -Wound/Ulcer Outcome Not Healed Not Healed -Ulcer Cleansing Rinsed/ Rinsed/ Irrigated with Irrigated with Saline Saline -Foul Odor after Cleansing No No -Bioengineered Tissue No No -Bleeding Controlled with Pressure Pressure -Treatment Response Procedure Procedure Tolerated Well Tolerated Well -Offloading No No -Debridement - Subq, 1st 20sq cm No No #1 L Hallux -Time 08:38 09:18 -Correct Patient Yes Yes -Correct Side, Site, Position Yes Yes -Correct Procedure Yes Yes -Procedure Performed Yes Yes -Type of Procedure Debridement Debridement -Clinical Debridement Subcutaneous Subcutaneous -Tissue Removed Subcutaneous Subcutaneous -Post Debridement (cm) - Length 2.0 2.0 -Post Debridement (cm) - Width 1.3 1.5 -Post Debridement (cm) - Depth 0.1 0.1 -Total Square (Post) (cm) 2.60 3.00 -Area of Debridement (cm) - Length 2.0 2.0 -Area of Debridement (cm) - Width 1.3 1.5 -Total Square (Area) (cm) 2.60 3.00 -Tunneling No No -Undermining/Tunneling No No -Circular Undermining No No -Wound/Ulcer Outcome Not Healed Not Healed -Ulcer Cleansing Rinsed/ Rinsed/ Irrigated with Irrigated with Saline Saline -Foul Odor after Cleansing No No -Bioengineered Tissue No No -Bleeding Controlled with Pressure Pressure -Treatment Response Procedure Procedure Tolerated Well Tolerated Well -Offloading No No -Debridement - Subq, 1st 20sq cm No No Pain Scale: 0-10 Numeric Is Patient Pain Free? Yes Yes - Nurse 3 - General Ulcer D/C NN Start: 01/04/22 08:08 Freq: Status: Active Protocol: Activity Type Activity Date Activity User E-sign Co-sign Detail Recorded Client Recorded Date Recorded By Document 01/04/22 09:26 RB [id number] 01/04/22 09:29 RB Document 01/11/22 09:42 MI [id number] 01/11/22 09:44 MT 01/04/22 01/11/22 09:26 09:42 Wound Care Nurse 3 #8 R LE Med -Primary Dressing Applied Promogran -Primary Dressing Covered/Secured with Dry Gauze & Roll Gauze, Secured with Tape -Promogran 2 #7 R Inf. LE -Primary Dressing Applied Promogran -Other Dressing heel hat -Primary Dressing Covered/Secured with Dry Gauze,Dry Gauze & Roll Gauze,Secured with Tape -Promogran 1 #6 R Sup LE -Other Dressing promogran -Primary Dressing Covered/Secured with Dry Gauze,Dry Gauze & Roll Gauze,Secured with Tape #5 R Dorsal -Primary Dressing Applied Promogran -Promogran 1 #4 L Med Cluster -Other Dressing promogran -Primary Dressing Covered/Secured with Dry Gauze #3 L Lat heel -Other Dressing promogran #2 L 3rd toe -Other Dressing promogran #1 L Hallux -Other Dressing promogran bilat -Multi-Layered Wrap Application Multi-Layer Multi-Layer Comp - Bilat ($ Comp - Bilat ($ ) ) Treatment Response Procedure Tolerated Well Pain Scale: 0-10 Numeric Is Patient Pain Free? Yes Yes WC - Visit Discharge Discharge Condition Stable Stable Ambulatory Status Ambulatory Ambulatory Transportation Private Auto Private Auto Medication Reconcilliation completed & No No provided to patient/care provider Clinical Summary of Care Provided Yes Yes Notes: pt promogran x 2 to lower legs . heel hat to the left heel, 3M bilat. Additional Wound Wound debrided: Right Lower Extremity ( Inferior ) Type of Debridement: Excisional debridement Anesthesia Used: 4% Lidocaine Solution Depth: Down to and including healthy tissue and in the subcutaneous layer Percentage of wound debrided: 100 Instrument Used: 5mm curette Tissue Removed: Slough and devitalized tissue Severity: Fat Layer Exposed Amount of bleeding with debridement: Mild Bleeding Controlled with: Pressure Patient tolerated procedure: Patient tolerated procedure well Additional Wound Wound debrided: Right Lower Extremity ( medial ) Type of Debridement: Excisional debridement Anesthesia Used: 4% Lidocaine Solution Depth: Down to and including healthy tissue and in the subcutaneous layer Percentage of wound debrided: 100 Instrument Used: 5mm curette Tissue Removed: Slough and devitalized tissue Severity: Fat Layer Exposed Amount of bleeding with debridement: Mild Bleeding Controlled with: Pressure Patient tolerated procedure: Patient tolerated procedure well Additional Wound Wound debrided: Right Dorsal Foot Type of Debridement: Excisional debridement Anesthesia Used: 4% Lidocaine Solution Depth: Down to and including healthy tissue and in the subcutaneous layer Percentage of wound debrided: 100 Instrument Used: 5mm curette Severity: Fat Layer Exposed Amount of bleeding with debridement: Mild Bleeding Controlled with: Pressure Patient tolerated procedure: Patient tolerated procedure well Additional Wound Wound debrided: Left Lower Extremity ( Medial Cluster ) Type of Debridement: Excisional debridement Anesthesia Used: 4% Lidocaine Solution Depth: Down to and including healthy tissue and in the subcutaneous layer Percentage of wound debrided: 100 Instrument Used: 5mm curette Tissue Removed: Slough and devitalized tissue Severity: Fat Layer Exposed Amount of bleeding with debridement: Mild Bleeding Controlled with: Pressure Patient tolerated procedure: Patient tolerated procedure well Additional Wound Wound debrided: Left Great Toe Type of Debridement: Excisional debridement Anesthesia Used: 4% Lidocaine Solution Depth: Down to and including healthy tissue and in the subcutaneous layer Percentage of wound debrided: 100 Instrument Used: 3mm curette Tissue Removed: Slough and devitalized tissue Severity: Fat Layer Exposed Amount of bleeding with debridement: Mild Bleeding Controlled with: Pressure Patient tolerated procedure: Patient tolerated procedure well Additional Wound Wound debrided: Left 3rd Toe Type of Debridement: Excisional debridement Anesthesia Used: 4% Lidocaine Solution Depth: Down to and including healthy tissue and in the subcutaneous layer Percentage of wound debrided: 100 Instrument Used: 3mm curette Tissue Removed: Slough and devitalized tissue Severity: Fat Layer Exposed Amount of bleeding with debridement: Mild Bleeding Controlled with: Pressure Patient tolerated procedure: Patient tolerated procedure well Additional Wound Wound debrided: Left heel Type of Debridement: Excisional debridement Anesthesia Used: 4% Lidocaine Solution Depth: Down to and including healthy tissue and in the subcutaneous layer Percentage of wound debrided: 100 Instrument Used: 3mm curette Tissue Removed: Slough and devitalized tissue Severity: Fat Layer Exposed Amount of bleeding with debridement: Mild Bleeding Controlled with: Pressure Patient tolerated procedure: Patient tolerated procedure well Assessment/Plan Assessment/Plan (1) Ulcer of left lower extremity with fat layer exposed: CODE(S): L97.922 - Non-pressure chronic ulcer of unspecified part of left lower leg with fat layer exposed (2) Ulcer of right lower extremity with fat layer exposed: CODE(S): L97.912 - Non-pressure chronic ulcer of unspecified part of right lower leg with fat layer exposed (3) Bilateral lower extremity edema: CODE(S): R60.0 - Localized edema (4) Type 2 diabetes mellitus: CODE(S): E11.9 - Type 2 diabetes mellitus without complications (5) Cellulitis of leg: CODE(S): L03.119 - Cellulitis of unspecified part of limb (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: CODE(S): 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 Right superior ulcer is improving however now presents with a new right lower extremity ulcer and worsening of the other ulcers. There is also significant increased edema and maceration surrounding the toe ulcers. He admits that he has not been elevating as he should. He plans to make changes. He does not appear to be making much progress with Epifix largely due to poor compliance. Will Dc. Switch to Promogran to all ulcers. 3M wrap for edema management, come in on Saturday for nurse visit/change. Compliance with elevation strongly recommended. Exercise as tolerated. Increase protein intake, vitamin C and zinc discussed. Optimal diabetes control discussed. Their questions were answered and they were advised to call with any further questions or concerns. Follow-up in 1 week or sooner if needed. This note was generated with [employer] dictation software. It may contain incorrect words, spelling, and punctuation that were not noted in checking the note before signing.
[2022-01-15 09:29] VITALS: BP 132/87; PULSE 74; TEMP 36.1
[2022-01-22 08:12] VITALS: BP 138/69; PULSE 87; TEMP 36.3
[2022-01-25 08:26] VITALS: BP 99/54; PULSE 79; RESP 16; TEMP 36.2
--- NOTE | 2022-01-25 09:58 | PN.PCM_ITS ---
History of Present Illness Date of Service: 01/25/22 Chief Complaint: Bilateral lower extremity ulcer History of Wound: Mr. Brandt is a 76-year-old who presents to the wound center due to non healing bilateral lower extremity ulcerations. He states that it started out as significant bilateral lower extremity swelling on the 10 of September. He sat for 4 straight hours mowing his lawn. Woke up the next day with significant lower extremity swelling. Currently on Lasix which he states that he has been taking. Bought some compression stockings but could not use it because it was too tight. He is mostly sedentary. History of diabetes mellitus type 2, he reports good control. Does not have as much feeling in his lower extremities. He presented to the hospital almost a week ago due to worsening bilateral lower extremity pain, redness, chills and feeling of unwell. Managed for cellulitis. Discharged on antibiotics. Feels better today. Still a lot of drainage and lower extremity swelling. Progress of Wound: Missed his appointment last week because he did not feel well. Has new ulcerations on his right foot and left lateral foot. Worsening of his left great toe as well. He states that he is elevating his lower extremity but admits that he is not doing it as well. He states that his dose of Lasix was recently increased by cardiology due to work-up done showing more fluid retention. Objective Data Objective Data Vital Signs: Vital Signs Temp Pulse Resp BP O2 Del Method 97.1 F L 79 16 99/54 L Room Air 01/25/22 08:26 01/25/22 08:26 01/25/22 08:26 01/25/22 08:26 01/25/22 08:26 Oxygen Delivery Method Room Air Charges/Coding Procedures Integumentary 111xxx-113xx: [id number] Jannie subq tissue 20 sq cm/< Add On Codes: 65503 Jannie subq tissue add-on (x1 centimeter debrided, please refer to clinical note) Physical Exam Const alert, oriented x3 and no apparent distress General Appearance: cooperative, comfortable and well developed Orientation / Consciousness: awake HEENT normocephalic, head/scalp atraumatic and hearing grossly normal bilaterally Eyes General Eye: normal appearance of both eyes Neck full ROM and supple General: normal visual inspection Resp normal respiratory effort Effort and Inspection: able to speak in complete sentences Extremity full ROM General Extremity: edema Skin Wounds: wounds noted Neuro oriented x3, CN's II-XII intact bilaterally, moves all extremities and no focal motor deficits Psych mental status grossly normal Appearance: grossly normal Attitude: calm Activity / Motor Behavior: appropriate eye contact Debridement Note Debridement Note Wound debrided: Right lower extremity superior Type of Debridement: Excisional debridement Anesthesia Used: 4% Lidocaine Solution Depth: Down to and including healthy tissue Percentage of wound debrided: 100 Instrument Used: 5mm curette Tissue Removed: Slough and devitalized tissue Severity: Fat Layer Exposed Amount of bleeding with debridement: Mild Bleeding Controlled with: Pressure Patient tolerated procedure: Patient tolerated procedure well Post-Debridement Measurements and Additional Note: Post-Debridement Measurements/Treatment - Nurse 1 - General Ulcer Assessment Start: 01/04/22 08:08 Freq: Status: Active Protocol: CHAPARRITA Activity Type Activity Date Activity User E-sign Co-sign Detail Recorded Client Recorded Date Recorded By Document 01/04/22 08:08 BMF [id number] 01/04/22 08:25 BMF Document 01/11/22 08:40 DL [id number] 01/11/22 08:55 DL Document 01/15/22 09:29 KR [id number] 01/15/22 09:31 KR Document 01/22/22 08:12 KR [id number] 01/22/22 08:14 KR Document 01/25/22 08:26 BMF [id number] 01/25/22 08:46 BMF Edit Result 01/25/22 08:26 BMF (1) [id number] 01/25/22 08:46 BMF (1) Pulse Rate (60-100) => 79 Blood Pressure (90/60-120/80) => 99/54 L Blood Pressure Mean (mm Hg) => 69 01/04/22 01/11/22 01/15/22 08:08 08:40 09:29 - Today's Visit Information Type of service Follow-up Visit Follow-up Visit Nurse-only (Physician/COBOL MAINFRAME DEVELOPER (Physician/COBOL MAINFRAME DEVELOPER Visit ) ) Arrival Mode Ambulatory Ambulatory Ambulatory Transfer Assistance None None Accompanied by Patient Identification Verified (Name & Yes Yes ) Patient Requires Transmission-Based No No Precautions Finger Stick Blood Sugar(mg/dl) (if indicated): Blood Sugar Vital Signs Temperature (97.8 F-99.1 F) 97.1 F L 97.5 F L 96.9 F L Temperature Source Temporal Temporal Temporal Pulse Rate (60-100) 78 74 Pulse Location Monitor Monitor Respiratory Rate (12-18) 16 20 H Respiratory rate source Observation Observation Oxygen Delivery Method Room Air Blood Pressure (90/60-120/80) 125/40 H 132/87 H Blood Pressure Mean (mm Hg) 68 102 Source Monitor Monitor Position Sitting Semi-Fowlers Blood Pressure Location Left Forearm Right Arm History Since Last Visit- (Skip if this is Patient's initial visit) Have you changed medications since your No No No last visit? Any new allergies or adverse reactions No No No Had a fall/change in ADL's that may No No No increase risk of falls Signs or symptoms of abuse and/or No No No neglect since last visit Have you been in the hospital since your No No No last visit? Has dressing in place as prescribed Yes Yes Yes Has compression in place as prescribed Yes Yes Yes Has offloadiing in place as prescribed N/A N/A N/A Experienced any changes in pain level or No No No management Left Footwear Surgical Shoe Surgical Shoe Surgical Shoe with pressure with pressure with pressure relief insole relief insole relief insole Right Footwear Regular Shoe Slipper No Footwear Pain Scale: 0-10 Numeric Is Patient Pain Free? Yes Yes Yes 01/22/22 01/25/22 08:12 08:26 WC - Today's Visit Information Type of service Nurse-only Follow-up Visit Visit (Physician/COBOL MAINFRAME DEVELOPER ) Arrival Mode Ambulatory Ambulatory Transfer Assistance None Accompanied by sig other Patient Identification Verified (Name & Yes Yes ) Patient Requires Transmission-Based No Precautions Finger Stick Blood Sugar(mg/dl) (if 140 indicated): Blood Sugar Stated by Patient Vital Signs Temperature (97.8 F-99.1 F) 97.4 F L 97.1 F L Temperature Source Temporal Temporal Pulse Rate (60-100) 87 79 Pulse Location Monitor Monitor Respiratory Rate (12-18) 16 Respiratory rate source Observation Oxygen Delivery Method Room Air Blood Pressure (90/60-120/80) 138/69 H 99/54 L Blood Pressure Mean (mm Hg) 92 69 Source Monitor Monitor Position Sitting Sitting Blood Pressure Location Right Arm Left Arm History Since Last Visit- (Skip if this is Patient's initial visit) Have you changed medications since your No No last visit? Any new allergies or adverse reactions No No Had a fall/change in ADL's that may No No increase risk of falls Signs or symptoms of abuse and/or No No neglect since last visit Have you been in the hospital since your No No last visit? Has dressing in place as prescribed Yes Yes Has compression in place as prescribed Yes Yes Has offloadiing in place as prescribed N/A N/A Experienced any changes in pain level or No No management Left Footwear Regular Shoe Surgical Shoe with pressure relief insole Right Footwear Regular Shoe Regular Shoe Pain Scale: 0-10 Numeric Is Patient Pain Free? Yes Yes WC - Nurse 1 - General Ulcer Measurement Start: 01/04/22 08:08 Freq: Status: Active Protocol: Activity Type Activity Date Activity User E-sign Co-sign Detail Recorded Client Recorded Date Recorded By Document 01/04/22 08:08 BMF [id number] 01/04/22 08:25 BMF Document 01/11/22 08:40 DL [id number] 01/11/22 08:55 DL Document 01/25/22 08:26 BMF [id number] 01/25/22 08:46 BMF Edit Result 01/25/22 08:26 BMF (1) [id number] 01/25/22 09:42 DL (1) #10 R 2nd toe - Current Size (cm) - Length => 0.8 - Current Size (cm) - Width => 0.5 - Current Size (cm) - Depth => 0.1 - Total Square Cm => 0.40 - Photo Taken => Yes - Exudate Amt => Small - Exudate Type => Serosanguineous - Wound Margin => Distinct, Outline => Attached - Granulation Amt => Small (1-33%) - Granulation Quality => [place],Red - Necrosis Amt => None Present (0%) - Structure Exposed => N/A - Texture (Ana-wound Skin Appearance) => Scarring - Moisture (Ana-wound Skin Appearance) => No Abnormality - Color (Ana-wound Skin Appearance) => No Abnormality - Temperature (Ana-wound Skin => No Abnormality (Pt Appearance) => Warm) - Tenderness on Palpation (Ana-wound => No Skin Appearance) - Ulcer Cleansing => Soap and Water - Foul Odor after Cleansing => No - Anesthetic Used => 5% Lidocaine Gel #9 L Lat Foot - Current Size (cm) - Length => 0.5 - Current Size (cm) - Width => 0.2 - Current Size (cm) - Depth => 0.1 - Total Square Cm => 0.10 - Photo Taken => Yes - Exudate Amt => Small - Exudate Type => Serosanguineous - Wound Margin => Distinct, Outline => Attached - Granulation Amt => Small (1-33%) - Granulation Quality => [place],Red - Necrosis Amt => None Present (0%) - Structure Exposed => N/A - Texture (Ana-wound Skin Appearance) => Localized Edema, => Scarring - Color (Ana-wound Skin Appearance) => No Abnormality - Temperature (Ana-wound Skin => No Abnormality (Pt Appearance) => Warm) - Ulcer Cleansing => Soap and Water - Foul Odor after Cleansing => No - Anesthetic Used => 5% Lidocaine Gel 01/04/22 01/11/22 01/25/22 08:08 08:40 08:26 Wound Center Nurse 1 #10 R 2nd toe -Current Size (cm) - Length 0.8 -Current Size (cm) - Width 0.5 -Current Size (cm) - Depth 0.1 -Total Square Cm 0.40 -Photo Taken Yes -Exudate Amt Small -Exudate Type Serosanguineous -Wound Margin Distinct, Outline Attached -Granulation Amt Small (1-33%) -Granulation Quality [place],Red -Necrosis Amt None Present (0 %) -Structure Exposed N/A -Texture (Ana-wound Skin Appearance) Scarring -Moisture (Ana-wound Skin Appearance) No Abnormality -Color (Ana-wound Skin Appearance) No Abnormality -Temperature (Ana-wound Skin No Abnormality Appearance) (Pt Warm) -Tenderness on Palpation (Ana-wound No Skin Appearance) -Ulcer Cleansing Soap and Water -Foul Odor after Cleansing No -Anesthetic Used 5% Lidocaine Gel #9 L Lat Foot -Current Size (cm) - Length 0.5 -Current Size (cm) - Width 0.2 -Current Size (cm) - Depth 0.1 -Total Square Cm 0.10 -Photo Taken Yes -Exudate Amt Small -Exudate Type Serosanguineous -Wound Margin Distinct, Outline Attached -Granulation Amt Small (1-33%) -Granulation Quality [place],Red -Necrosis Amt None Present (0 %) -Structure Exposed N/A -Texture (Ana-wound Skin Appearance) Localized Edema ,Scarring -Color (Ana-wound Skin Appearance) No Abnormality -Temperature (Ana-wound Skin No Abnormality Appearance) (Pt Warm) -Ulcer Cleansing Soap and Water -Foul Odor after Cleansing No -Anesthetic Used 5% Lidocaine Gel #8 R LE Med -Combined with other wound No -Current Size (cm) - Length 1 2.1 -Current Size (cm) - Width 1 2.3 -Current Size (cm) - Depth 0.2 0.1 -Total Square Cm 1 4.83 -Date of Last Picture (Recall this 01/25/22 field) -Photo Taken Yes No -Epithelialization None Present -Tunneling No -Undermining/Tunneling No -Circular Undermining No -Exudate Amt Small Medium -Exudate Type Serosanguineous Serosanguineous -Wound Margin Distinct, Distinct, Outline Outline Attached Attached -Granulation Amt Large (67-100%) None Present (0 %) -Granulation Quality Pale -Slough/Fibrin Yes -Necrosis Amt Small (1-33%) Large (67-100%) -Necrotic Tissue Type Adherent Slough Adherent Slough -Structure Exposed N/A -Texture (Ana-wound Skin Appearance) Scarring Assessed -Moisture (Ana-wound Skin Appearance) Dry/Scaly Assessed, Maceration -Color (Ana-wound Skin Appearance) Hemosiderin Assessed, Staining Erythema -Temperature (Ana-wound Skin No Abnormality No Abnormality Appearance) (Pt Warm) (Pt Warm) -Tenderness on Palpation (Ana-wound No No Skin Appearance) -Ulcer Cleansing Soap and Water Soap and Water -Foul Odor after Cleansing No No -Anesthetic Used 5% Lidocaine 4% Lidocaine Gel Solution #7 R Inf. LE -Combined with other wound No No -Current Size (cm) - Length 1.8 2.7 2 -Current Size (cm) - Width 0.8 1.7 1.5 -Current Size (cm) - Depth 0.2 0.2 0.2 -Total Square Cm 1.44 4.59 3.0 -Photo Taken No No No -Epithelialization None Present None Present -Tunneling No No -Undermining/Tunneling No No -Circular Undermining No No -Exudate Amt Medium Medium Medium -Exudate Type Serosanguineous Serosanguineous Serosanguineous -Wound Margin Distinct, Distinct, Distinct, Outline Outline Outline Attached Attached Attached -Granulation Amt Small (1-33%) None Present (0 None Present (0 %) %) -Granulation Quality Red -Slough/Fibrin Yes Yes -Necrosis Amt Large (67-100%) Medium (34-66%) Large (67-100%) -Necrotic Tissue Type Adherent Slough Adherent Slough Adherent Slough -Texture (Ana-wound Skin Appearance) Assessed, Scarring Assessed Fluctuance -Moisture (Ana-wound Skin Appearance) Assessed,Dry/ Dry/Scaly Assessed, Scaly Maceration -Color (Ana-wound Skin Appearance) Assessed Hemosiderin Assessed, Staining Erythema -Temperature (Aan-wound Skin No Abnormality No Abnormality No Abnormality Appearance) (Pt Warm) (Pt Warm) (Pt Warm) -Tenderness on Palpation (Ana-wound No No No Skin Appearance) -Ulcer Cleansing Soap and Water Soap and Water Soap and Water -Foul Odor after Cleansing No No No -Anesthetic Used 4% Lidocaine 5% Lidocaine 4% Lidocaine Solution Gel Solution #6 R Sup LE -Combined with other wound No No -Current Size (cm) - Length 2.9 2.8 2.5 -Current Size (cm) - Width 1.8 1.4 1 -Current Size (cm) - Depth 0.2 0.1 0.1 -Total Square Cm 5.22 3.92 2.5 -Photo Taken No No No -Epithelialization Small 1-33% Small 1-33% -Tunneling No No -Undermining/Tunneling No No -Circular Undermining No No -Exudate Amt Medium Medium Medium -Exudate Type Serosanguineous Serosanguineous Serosanguineous -Wound Margin Distinct, Distinct, Distinct, Outline Outline Outline Attached Attached Attached -Granulation Amt Large (67-100%) None Present (0 Small (1-33%) %) -Granulation Quality Red Red -Slough/Fibrin Yes Yes -Necrosis Amt Small (1-33%) Large (67-100%) Medium (34-66%) -Necrotic Tissue Type Adherent Slough Adherent Slough Adherent Slough -Structure Exposed N/A -Texture (Ana-wound Skin Appearance) Assessed, Scarring Assessed Scarring -Moisture (Ana-wound Skin Appearance) Assessed Dry/Scaly Assessed -Color (Ana-wound Skin Appearance) Assessed Hemosiderin Assessed Staining -Temperature (Ana-wound Skin No Abnormality No Abnormality No Abnormality Appearance) (Pt Warm) (Pt Warm) (Pt Warm) -Tenderness on Palpation (Ana-wound No No No Skin Appearance) -Ulcer Cleansing Soap and Water Soap and Water Soap and Water -Foul Odor after Cleansing No No No -Anesthetic Used 4% Lidocaine 5% Lidocaine 4% Lidocaine Solution Gel Solution #5 R Dorsal -Combined with other wound No No -Current Size (cm) - Length 1.9 1.4 1.5 -Current Size (cm) - Width 1.9 1.2 1.5 -Current Size (cm) - Depth 0.2 0.2 0.3 -Total Square Cm 3.61 1.68 2.25 -Photo Taken No No No -Epithelialization None Present None Present -Tunneling No No -Undermining/Tunneling No No -Circular Undermining No No -Exudate Amt Medium Medium Medium -Exudate Type Serosanguineous Serosanguineous Serosanguineous -Wound Margin Distinct, Distinct, Distinct, Outline Outline Outline Attached Attached Attached -Granulation Amt None Present (0 None Present (0 None Present (0 %) %) %) -Slough/Fibrin Yes Yes -Necrosis Amt Large (67-100%) Large (67-100%) Large (67-100%) -Necrotic Tissue Type Adherent Slough Adherent Slough Adherent Slough -Structure Exposed N/A -Texture (Ana-wound Skin Appearance) Assessed, Scarring Assessed Scarring -Moisture (Ana-wound Skin Appearance) Assessed, Dry/Scaly Assessed, Maceration Maceration -Color (Aan-wound Skin Appearance) Assessed, Hemosiderin Assessed, Erythema,Palor Staining Erythema,Palor -Temperature (Ana-wound Skin No Abnormality No Abnormality No Abnormality Appearance) (Pt Warm) (Pt Warm) (Pt Warm) -Tenderness on Palpation (Ana-wound No No No Skin Appearance) -Ulcer Cleansing Soap and Water Soap and Water -Foul Odor after Cleansing No No No -Anesthetic Used 4% Lidocaine 4% Lidocaine 4% Lidocaine Solution Solution Solution #4 L Med Cluster -Combined with other wound No No -Current Size (cm) - Length 10.6 10.5 11 -Current Size (cm) - Width 1.3 2.5 1.5 -Current Size (cm) - Depth 0.2 0.2 0.2 -Total Square Cm 13.78 26.25 16.5 -Photo Taken No No No -Epithelialization None Present Small 1-33% -Tunneling No No -Undermining/Tunneling No No -Circular Undermining No No -Exudate Amt Medium Medium Small -Exudate Type Serosanguineous Serosanguineous Serosanguineous -Wound Margin Distinct, Distinct, Distinct, Outline Outline Outline Attached Attached Attached -Granulation Amt Medium (34-66%) None Present (0 None Present (0 %) %) -Granulation Quality Red -Slough/Fibrin Yes Yes -Necrosis Amt Medium (34-66%) Large (67-100%) Medium (34-66%) -Necrotic Tissue Type Adherent Slough Adherent Slough Eschar -Structure Exposed N/A -Texture (Ana-wound Skin Appearance) Assessed, Scarring Assessed Scarring -Moisture (Ana-wound Skin Appearance) Assessed,Dry/ Dry/Scaly Assessed, Scaly Maceration -Color (Ana-wound Skin Appearance) Assessed Hemosiderin Assessed, Staining Erythema -Temperature (Ana-wound Skin No Abnormality No Abnormality No Abnormality Appearance) (Pt Warm) (Pt Warm) (Pt Warm) -Tenderness on Palpation (Ana-wound No No No Skin Appearance) -Ulcer Cleansing Soap and Water Soap and Water Soap and Water -Foul Odor after Cleansing No No No -Anesthetic Used 4% Lidocaine 5% Lidocaine 4% Lidocaine Solution Gel Solution #3 L Lat heel -Combined with other wound No No -Current Size (cm) - Length 0.5 0.3 1.2 -Current Size (cm) - Width 0.3 0.2 1.4 -Current Size (cm) - Depth 0.2 0.2 0.2 -Total Square Cm 0.15 0.06 1.68 -Photo Taken No No No -Epithelialization None Present None Present -Tunneling No No -Undermining/Tunneling No No -Circular Undermining No No -Exudate Amt Medium Small Small -Exudate Type Serosanguineous Serosanguineous Serosanguineous -Wound Margin Distinct, Distinct, Distinct, Outline Outline Outline Attached Attached Attached -Granulation Amt Small (1-33%) Small (1-33%) None Present (0 %) -Granulation Quality [place] -Slough/Fibrin Yes Yes -Necrosis Amt Large (67-100%) None Present (0 Large (67-100%) %) -Necrotic Tissue Type Eschar Adherent Slough -Structure Exposed N/A -Texture (Ana-wound Skin Appearance) Assessed, Scarring Assessed Scarring -Moisture (Ana-wound Skin Appearance) Assessed,Dry/ Dry/Scaly Assessed Scaly -Color (Ana-wound Skin Appearance) Assessed, Hemosiderin Assessed, Erythema Staining Erythema -Temperature (Ana-wound Skin No Abnormality No Abnormality No Abnormality Appearance) (Pt Warm) (Pt Warm) (Pt Warm) -Tenderness on Palpation (Ana-wound No No No Skin Appearance) -Ulcer Cleansing Soap and Water Soap and Water Soap and Water -Foul Odor after Cleansing No No No -Anesthetic Used 4% Lidocaine 5% Lidocaine 4% Lidocaine Solution Gel Solution #2 L 3rd toe -Combined with other wound No No -Current Size (cm) - Length 1.1 1.2 1.2 -Current Size (cm) - Width 0.4 0.4 0.5 -Current Size (cm) - Depth 0.2 0.1 0.2 -Total Square Cm 0.44 0.48 0.60 -Photo Taken No No No -Epithelialization None Present None Present -Tunneling No No -Undermining/Tunneling No No -Circular Undermining No No -Exudate Amt Medium Medium Small -Exudate Type Serosanguineous Serosanguineous Serosanguineous -Wound Margin Distinct, Distinct, Distinct, Outline Outline Outline Attached Attached Attached -Granulation Amt None Present (0 None Present (0 Small (1-33%) %) %) -Granulation Quality [place] -Slough/Fibrin Yes Yes -Necrosis Amt Large (67-100%) Large (67-100%) Large (67-100%) -Necrotic Tissue Type Adherent Slough Adherent Slough Adherent Slough -Structure Exposed N/A -Texture (Ana-wound Skin Appearance) Assessed, Scarring Assessed Scarring -Moisture (Ana-wound Skin Appearance) Assessed, Dry/Scaly Assessed, Maceration Maceration -Color (Ana-wound Skin Appearance) Assessed, Hemosiderin Assessed, Erythema,Palor Staining Erythema -Temperature (Ana-wound Skin No Abnormality No Abnormality No Abnormality Appearance) (Pt Warm) (Pt Warm) (Pt Warm) -Tenderness on Palpation (Ana-wound No No No Skin Appearance) -Ulcer Cleansing Soap and Water Soap and Water Soap and Water -Foul Odor after Cleansing No No No -Anesthetic Used 4% Lidocaine 5% Lidocaine 4% Lidocaine Solution Gel Solution #1 L [place] -Combined with other wound No No -Current Size (cm) - Length 1.8 1.8 2.5 -Current Size (cm) - Width 0.8 1.3 2 -Current Size (cm) - Depth 0.2 0.1 0.1 -Total Square Cm 1.44 2.34 5.0 -Photo Taken No No No -Epithelialization None Present None Present -Tunneling No No -Undermining/Tunneling No No -Circular Undermining No No -Exudate Amt Medium Medium Medium -Exudate Type Serosanguineous Serosanguineous Serosanguineous -Wound Margin Distinct, Distinct, Distinct, Outline Outline Outline Attached Attached Attached -Granulation Amt None Present (0 None Present (0 None Present (0 %) %) %) -Slough/Fibrin Yes Yes -Necrosis Amt Large (67-100%) Large (67-100%) Large (67-100%) -Necrotic Tissue Type Adherent Slough Adherent Slough Eschar -Structure Exposed N/A -Texture (Ana-wound Skin Appearance) Assessed Scarring Assessed, Localized Edema -Moisture (Ana-wound Skin Appearance) Assessed, Dry/Scaly Assessed, Maceration Maceration -Color (Ana-wound Skin Appearance) Assessed, Hemosiderin Assessed, Erythema,Palor Staining Erythema,Palor -Temperature (Ana-wound Skin No Abnormality No Abnormality No Abnormality Appearance) (Pt Warm) (Pt Warm) (Pt Warm) -Tenderness on Palpation (Ana-wound No No No Skin Appearance) -Ulcer Cleansing Soap and Water Soap and Water Soap and Water -Foul Odor after Cleansing No No No -Anesthetic Used 4% Lidocaine 5% Lidocaine 4% Lidocaine Solution Gel Solution Lower Limb Edema Present Yes Yes Right Calf (cm) 30.8 31.6 32.6 Right Ankle (cm) 20.5 22.1 23 Left Calf (cm) 34 34.7 36 Left Ankle (cm) 23.6 24.2 23 WC - Nurse 2 - General Ulcer CM Notes Start: 01/04/22 08:08 Freq: Status: Active Protocol: Activity Type Activity Date Activity User E-sign Co-sign Detail Recorded Client Recorded Date Recorded By Document 01/04/22 08:35 MW [id number] 01/04/22 09:05 MW Document 01/11/22 09:13 MW [id number] 01/11/22 09:30 MW 01/04/22 01/11/22 08:35 09:13 Wound Center Nurse 2 #8 R LE Med -Time 09:14 -Correct Patient Yes -Correct Side, Site, Position Yes -Correct Procedure Yes -Procedure Performed Yes -Type of Procedure Debridement -Clinical Debridement Subcutaneous -Tissue Removed Subcutaneous -Post Debridement (cm) - Length 2.0 -Post Debridement (cm) - Width 1.3 -Post Debridement (cm) - Depth 0.1 -Total Square (Post) (cm) 2.60 -Area of Debridement (cm) - Length 2.0 -Area of Debridement (cm) - Width 1.3 -Total Square (Area) (cm) 2.60 -Tunneling No -Undermining/Tunneling No -Circular Undermining No -Wound/Ulcer Outcome Not Healed -Ulcer Cleansing Rinsed/ Irrigated with Saline -Foul Odor after Cleansing No -Bioengineered Tissue No -Bleeding Controlled with Pressure -Treatment Response Procedure Tolerated Well -Offloading No -Debridement - Subq, 1st 20sq cm Yes -Debridement, SubQ, ea addt'l 20sq cm 3 or part thereof #7 R Inf. LE -Time 08:35 09:15 -Correct Patient Yes Yes -Correct Side, Site, Position Yes Yes -Correct Procedure Yes Yes -Procedure Performed Yes Yes -Type of Procedure Debridement Debridement -Clinical Debridement Subcutaneous Subcutaneous -Tissue Removed Subcutaneous Subcutaneous -Post Debridement (cm) - Length 3.0 3.0 -Post Debridement (cm) - Width 1.3 1.4 -Post Debridement (cm) - Depth 0.1 0.1 -Total Square (Post) (cm) 3.90 4.20 -Area of Debridement (cm) - Length 3.0 3.0 -Area of Debridement (cm) - Width 1.3 1.4 -Total Square (Area) (cm) 3.90 4.20 -Tunneling No No -Undermining/Tunneling No No -Circular Undermining No No -Wound/Ulcer Outcome Not Healed Not Healed -Ulcer Cleansing Rinsed/ Rinsed/ Irrigated with Irrigated with Saline Saline -Foul Odor after Cleansing No No -Bioengineered Tissue No No -Bleeding Controlled with Pressure Pressure -Treatment Response Procedure Procedure Tolerated Well Tolerated Well -Offloading No No -Debridement - Subq, 1st 20sq cm Yes No #6 R Sup LE -Time 08:35 09:16 -Correct Patient Yes Yes -Correct Side, Site, Position Yes Yes -Correct Procedure Yes Yes -Procedure Performed Yes Yes -Type of Procedure Debridement Debridement -Clinical Debridement Subcutaneous Subcutaneous -Tissue Removed Subcutaneous Subcutaneous -Post Debridement (cm) - Length 3.0 2.7 -Post Debridement (cm) - Width 1.6 1.3 -Post Debridement (cm) - Depth 0.1 0.1 -Total Square (Post) (cm) 4.80 3.51 -Area of Debridement (cm) - Length 3.0 2.7 -Area of Debridement (cm) - Width 1.6 1.3 -Total Square (Area) (cm) 4.80 3.51 -Tunneling No No -Undermining/Tunneling No No -Circular Undermining No No -Wound/Ulcer Outcome Not Healed Not Healed -Ulcer Cleansing Rinsed/ Rinsed/ Irrigated with Irrigated with Saline Saline -Foul Odor after Cleansing No No -Bioengineered Tissue No No -Bleeding Controlled with Pressure Pressure -Treatment Response Procedure Procedure Tolerated Well Tolerated Well -Offloading No No -Debridement - Subq, 1st 20sq cm No No #5 R Dorsal -Time 08:36 09:16 -Correct Patient Yes Yes -Correct Side, Site, Position Yes Yes -Correct Procedure Yes Yes -Procedure Performed Yes Yes -Type of Procedure Debridement Debridement -Clinical Debridement Subcutaneous Subcutaneous -Tissue Removed Subcutaneous Subcutaneous -Post Debridement (cm) - Length 1.4 1.5 -Post Debridement (cm) - Width 1.2 1.3 -Post Debridement (cm) - Depth 0.3 0.1 -Total Square (Post) (cm) 1.68 1.95 -Area of Debridement (cm) - Length 1.4 1.5 -Area of Debridement (cm) - Width 1.2 1.3 -Total Square (Area) (cm) 1.68 1.95 -Tunneling No No -Undermining/Tunneling No No -Circular Undermining No No -Wound/Ulcer Outcome Not Healed Not Healed -Ulcer Cleansing Rinsed/ Rinsed/ Irrigated with Irrigated with Saline Saline -Foul Odor after Cleansing No No -Bioengineered Tissue No No -Bleeding Controlled with Pressure Pressure -Treatment Response Procedure Procedure Tolerated Well Tolerated Well -Offloading No No -Debridement - Subq, 1st 20sq cm No No #4 L Med Cluster -Time 08:36 09:17 -Correct Patient Yes Yes -Correct Side, Site, Position Yes Yes -Correct Procedure Yes Yes -Procedure Performed Yes Yes -Type of Procedure Debridement Debridement -Clinical Debridement Subcutaneous Subcutaneous -Tissue Removed Subcutaneous Subcutaneous -Post Debridement (cm) - Length 12.1 12.2 -Post Debridement (cm) - Width 3.7 4.0 -Post Debridement (cm) - Depth 0.2 0.2 -Total Square (Post) (cm) 44.77 48.80 -Area of Debridement (cm) - Length 12.1 12.2 -Area of Debridement (cm) - Width 3.7 4.0 -Total Square (Area) (cm) 44.77 48.80 -Tunneling No No -Undermining/Tunneling No No -Circular Undermining No No -Wound/Ulcer Outcome Not Healed Not Healed -Ulcer Cleansing Rinsed/ Rinsed/ Irrigated with Irrigated with Saline Saline -Foul Odor after Cleansing No No -Bioengineered Tissue Yes No -Type of Bioengineered Tissue Epifix Mesh -Expiration Date 09/29/26 -Product Lot Number [id number] -Percent Used 100 -Lot number of Saline Used [id number] -Bleeding Controlled with Pressure Pressure -Treatment Response Procedure Procedure Tolerated Well Tolerated Well -Offloading No No -Debridement - Subq, 1st 20sq cm No No -Apply Skin Sub - 1st 25 sq cm - Legs 1 -Epifix Mesh (per sq cm) 11 #3 L Lat heel -Time 08:37 09:17 -Correct Patient Yes Yes -Correct Side, Site, Position Yes Yes -Correct Procedure Yes Yes -Procedure Performed Yes Yes -Type of Procedure Debridement Debridement -Clinical Debridement Subcutaneous Subcutaneous -Tissue Removed Subcutaneous Subcutaneous -Post Debridement (cm) - Length 0.4 0.5 -Post Debridement (cm) - Width 0.4 0.5 -Post Debridement (cm) - Depth 0.1 0.1 -Total Square (Post) (cm) 0.16 0.25 -Area of Debridement (cm) - Length 0.4 0.5 -Area of Debridement (cm) - Width 0.4 0.5 -Total Square (Area) (cm) 0.16 0.25 -Tunneling No No -Undermining/Tunneling No No -Circular Undermining No No -Wound/Ulcer Outcome Not Healed Not Healed -Ulcer Cleansing Rinsed/ Rinsed/ Irrigated with Irrigated with Saline Saline -Foul Odor after Cleansing No No -Bioengineered Tissue No No -Bleeding Controlled with Pressure Pressure -Treatment Response Procedure Procedure Tolerated Well Tolerated Well -Offloading No No -Debridement - Subq, 1st 20sq cm No No #2 L 3rd toe -Time 08:37 09:17 -Correct Patient Yes Yes -Correct Side, Site, Position Yes Yes -Correct Procedure Yes Yes -Procedure Performed Yes Yes -Type of Procedure Debridement Debridement -Clinical Debridement Subcutaneous Subcutaneous -Tissue Removed Subcutaneous Subcutaneous -Post Debridement (cm) - Length 1.3 1.3 -Post Debridement (cm) - Width 0.5 0.5 -Post Debridement (cm) - Depth 0.1 0.1 -Total Square (Post) (cm) 0.65 0.65 -Area of Debridement (cm) - Length 1.3 1.3 -Area of Debridement (cm) - Width 0.5 0.5 -Total Square (Area) (cm) 0.65 0.65 -Tunneling No No -Undermining/Tunneling No No -Circular Undermining No No -Wound/Ulcer Outcome Not Healed Not Healed -Ulcer Cleansing Rinsed/ Rinsed/ Irrigated with Irrigated with Saline Saline -Foul Odor after Cleansing No No -Bioengineered Tissue No No -Bleeding Controlled with Pressure Pressure -Treatment Response Procedure Procedure Tolerated Well Tolerated Well -Offloading No No -Debridement - Subq, 1st 20sq cm No No #1 L Hallux -Time 08:38 09:18 -Correct Patient Yes Yes -Correct Side, Site, Position Yes Yes -Correct Procedure Yes Yes -Procedure Performed Yes Yes -Type of Procedure Debridement Debridement -Clinical Debridement Subcutaneous Subcutaneous -Tissue Removed Subcutaneous Subcutaneous -Post Debridement (cm) - Length 2.0 2.0 -Post Debridement (cm) - Width 1.3 1.5 -Post Debridement (cm) - Depth 0.1 0.1 -Total Square (Post) (cm) 2.60 3.00 -Area of Debridement (cm) - Length 2.0 2.0 -Area of Debridement (cm) - Width 1.3 1.5 -Total Square (Area) (cm) 2.60 3.00 -Tunneling No No -Undermining/Tunneling No No -Circular Undermining No No -Wound/Ulcer Outcome Not Healed Not Healed -Ulcer Cleansing Rinsed/ Rinsed/ Irrigated with Irrigated with Saline Saline -Foul Odor after Cleansing No No -Bioengineered Tissue No No -Bleeding Controlled with Pressure Pressure -Treatment Response Procedure Procedure Tolerated Well Tolerated Well -Offloading No No -Debridement - Subq, 1st 20sq cm No No Pain Scale: 0-10 Numeric Is Patient Pain Free? Yes Yes - Nurse 3 - General Ulcer D/C NN Start: 01/04/22 08:08 Freq: Status: Active Protocol: Activity Type Activity Date Activity User E-sign Co-sign Detail Recorded Client Recorded Date Recorded By Document 01/04/22 09:26 RB [id number] 01/04/22 09:29 RB Document 01/11/22 09:42 MT [id number] 01/11/22 09:44 MT Document 01/15/22 09:29 KR [id number] 01/15/22 09:31 KR Document 01/22/22 08:12 KR [id number] 01/22/22 08:14 KR Document 01/25/22 09:43 DL [id number] 01/25/22 09:47 DL 01/04/22 01/11/22 01/15/22 09:26 09:42 09:29 Wound Care Nurse 3 #10 R 2nd toe -Ulcer Cleansing -Foul Odor after Cleansing -Primary Dressing Applied -Primary Dressing Covered/Secured with -Promogran #9 L Lat Foot -Ulcer Cleansing -Foul Odor after Cleansing -Other Dressing -Primary Dressing Covered/Secured with #8 R LE Med -Ulcer Cleansing Soap and Water -Foul Odor after Cleansing -Primary Dressing Applied Promogran Promogran -Other Dressing abd pad -Primary Dressing Covered/Secured with Dry Gauze & Roll Gauze, Secured with Tape -Promogran 2 2 #7 R Inf. LE -Ulcer Cleansing Soap and Water -Primary Dressing Applied Promogran -Other Dressing heel hat abd pad -Primary Dressing Covered/Secured with Dry Gauze,Dry Gauze & Roll Gauze,Secured with Tape -Promogran 1 #6 R Sup LE -Ulcer Cleansing Soap and Water -Foul Odor after Cleansing -Other Dressing promogran abd pad -Primary Dressing Covered/Secured with Dry Gauze,Dry Gauze & Roll Gauze,Secured with Tape #5 R Dorsal -Ulcer Cleansing Soap and Water -Foul Odor after Cleansing -Primary Dressing Applied Promogran -Other Dressing -Primary Dressing Covered/Secured with -Promogran 1 #4 L Med Cluster -Ulcer Cleansing Soap and Water -Foul Odor after Cleansing -Other Dressing promogran -Primary Dressing Covered/Secured with Dry Gauze #3 L Lat heel -Ulcer Cleansing Soap and Water -Foul Odor after Cleansing -Primary Dressing Applied -Other Dressing promogran -Primary Dressing Covered/Secured with -Promogran #2 L 3rd toe -Ulcer Cleansing Soap and Water -Foul Odor after Cleansing -Primary Dressing Applied -Other Dressing promogran -Primary Dressing Covered/Secured with -Promogran #1 L Hallux -Ulcer Cleansing Soap and Water -Foul Odor after Cleansing -Other Dressing promogran -Primary Dressing Covered/Secured with bilat -Multi-Layered Wrap Application Multi-Layer Multi-Layer Multi-Layer Comp - Bilat ($ Comp - Bilat ($ Comp - Bilat ($ ) ) ) Treatment Response Procedure Tolerated Well Vital Signs Temperature (97.8 F-99.1 F) 96.9 F L Temperature Source Temporal Pulse Rate (60-100) 74 Pulse Location Monitor Blood Pressure (90/60-120/80) 132/87 H Blood Pressure Mean (mm Hg) 102 Source Monitor Position Semi-Fowlers Blood Pressure Location Right Arm Pain Scale: 0-10 Numeric Is Patient Pain Free? Yes Yes Yes WC - Visit Discharge Discharge Condition Stable Stable Stable Ambulatory Status Ambulatory Ambulatory Ambulatory Transportation Private Auto Private Auto Private Auto Accompanied by Medication Reconcilliation completed & No No provided to patient/care provider Clinical Summary of Care Provided Yes Yes Notes: pt promogran x 2 to lower legs . heel hat to the left heel, 3M bilat. 01/22/22 01/25/22 08:12 09:43 Wound Care Nurse 3 #10 R 2nd toe -Ulcer Cleansing Rinsed/ Irrigated with Saline -Foul Odor after Cleansing No -Primary Dressing Applied Promogran -Primary Dressing Covered/Secured with Dry Gauze, Secured with Tape -Promogran 1 #9 L Lat Foot -Ulcer Cleansing Rinsed/ Irrigated with Saline -Foul Odor after Cleansing No -Other Dressing promogra -Primary Dressing Covered/Secured with Dry Gauze,Dry Gauze & Roll Gauze #8 R LE Med -Ulcer Cleansing Soap and Water Rinsed/ Irrigated with Saline -Foul Odor after Cleansing No -Primary Dressing Applied Promogran -Other Dressing promogran -Primary Dressing Covered/Secured with Dry Gauze Dry Gauze,Dry Gauze & Roll Gauze -Promogran 2 #7 R Inf. LE -Ulcer Cleansing -Primary Dressing Applied -Other Dressing promogran -Primary Dressing Covered/Secured with Dry Gauze & Roll Gauze -Promogran #6 R Sup LE -Ulcer Cleansing Rinsed/ Irrigated with Saline -Foul Odor after Cleansing No -Other Dressing promogran -Primary Dressing Covered/Secured with Dry Gauze & Roll Gauze #5 R Dorsal -Ulcer Cleansing Rinsed/ Irrigated with Saline -Foul Odor after Cleansing No -Primary Dressing Applied -Other Dressing promogran -Primary Dressing Covered/Secured with Dry Gauze & Roll Gauze, Secured with Tape -Promogran #4 L Med Cluster -Ulcer Cleansing Rinsed/ Irrigated with Saline -Foul Odor after Cleansing No -Other Dressing promogran -Primary Dressing Covered/Secured with Dry Gauze & Roll Gauze #3 L Lat heel -Ulcer Cleansing Rinsed/ Irrigated with Saline -Foul Odor after Cleansing No -Primary Dressing Applied Promogran -Other Dressing promogran -Primary Dressing Covered/Secured with Dry Gauze & Roll Gauze -Promogran 1 #2 L 3rd toe -Ulcer Cleansing Rinsed/ Irrigated with Saline -Foul Odor after Cleansing No -Primary Dressing Applied Promogran -Other Dressing -Primary Dressing Covered/Secured with Dry Gauze & Roll Gauze -Promogran 1 #1 L Hallux -Ulcer Cleansing Rinsed/ Irrigated with Saline -Foul Odor after Cleansing No -Other Dressing nugel -Primary Dressing Covered/Secured with Dry Gauze,Dry Gauze & Roll Gauze,Secured with Tape bilat -Multi-Layered Wrap Application Multi-Layer Comp - Bilat ($ ) Treatment Response Vital Signs Temperature (97.8 F-99.1 F) 97.4 F L Temperature Source Temporal Pulse Rate (60-100) 87 Pulse Location Monitor Blood Pressure (90/60-120/80) 138/69 H Blood Pressure Mean (mm Hg) 92 Source Monitor Position Sitting Blood Pressure Location Right Arm Pain Scale: 0-10 Numeric Is Patient Pain Free? Yes Yes WC - Visit Discharge Discharge Condition Stable Stable Ambulatory Status Ambulatory Ambulatory Transportation Private Auto Private Auto Accompanied by Medication Reconcilliation completed & provided to patient/care provider Clinical Summary of Care Provided Notes: Pt to resume Santyl to L Hallux at home. Additional Wound Wound debrided: Right lower extremity inferior Type of Debridement: Excisional debridement Anesthesia Used: 4% Lidocaine Solution Depth: Down to and including healthy tissue and in the subcutaneous layer Percentage of wound debrided: 100 Instrument Used: 5mm curette Tissue Removed: Slough and devitalized tissue Severity: Fat Layer Exposed Amount of bleeding with debridement: Mild Bleeding Controlled with: Pressure Patient tolerated procedure: Patient tolerated procedure well Additional Wound Wound debrided: Lower extremity medial Type of Debridement: Excisional debridement Anesthesia Used: 4% Lidocaine Solution Depth: Down to and including healthy tissue and in the subcutaneous layer Percentage of wound debrided: 100 Instrument Used: 5mm curette Tissue Removed: Slough and devitalized tissue Severity: Fat Layer Exposed Amount of bleeding with debridement: Mild Bleeding Controlled with: Pressure Patient tolerated procedure: Patient tolerated procedure well Additional Wound Wound debrided: Right dorsal foot Type of Debridement: Excisional debridement Anesthesia Used: 4% Lidocaine Solution Depth: Down to and including healthy tissue and in the subcutaneous layer Percentage of wound debrided: 100 Instrument Used: 5mm curette Tissue Removed: Slough and devitalized tissue Severity: Fat Layer Exposed Amount of bleeding with debridement: Mild Bleeding Controlled with: Pressure Patient tolerated procedure: Patient tolerated procedure well Additional Wound Wound debrided: Right second toe Type of Debridement: Excisional debridement Anesthesia Used: 4% Lidocaine Solution Depth: Down to and including healthy tissue and in the subcutaneous layer Percentage of wound debrided: 100 Instrument Used: 3mm curette Tissue Removed: Slough and devitalized tissue Severity: Fat Layer Exposed Amount of bleeding with debridement: Mild Bleeding Controlled with: Pressure Patient tolerated procedure: Patient tolerated procedure well Additional Wound Wound debrided: Left medial cluster Type of Debridement: Excisional debridement Anesthesia Used: 4% Lidocaine Solution Depth: Down to and including healthy tissue and in the subcutaneous layer Percentage of wound debrided: 100 Instrument Used: 5mm curette Tissue Removed: Slough and devitalized tissue Severity: Fat Layer Exposed Amount of bleeding with debridement: Mild Bleeding Controlled with: Pressure Patient tolerated procedure: Patient tolerated procedure well Additional Wound Wound debrided: Left third toe Type of Debridement: Excisional debridement Anesthesia Used: 4% Lidocaine Solution Depth: Down to and including healthy tissue and in the subcutaneous layer Percentage of wound debrided: 100 Instrument Used: 3mm curette Tissue Removed: Slough and devitalized tissue Severity: Fat Layer Exposed Amount of bleeding with debridement: Mild Bleeding Controlled with: Pressure Patient tolerated procedure: Patient tolerated procedure well Additional Wound Wound debrided: Left lateral foot Type of Debridement: Excisional debridement Anesthesia Used: 4% Lidocaine Solution Depth: Down to and including healthy tissue and in the subcutaneous layer Percentage of wound debrided: 100 Instrument Used: 3mm curette Tissue Removed: Slough and devitalized tissue Severity: Fat Layer Exposed Amount of bleeding with debridement: Mild Bleeding Controlled with: Pressure Patient tolerated procedure: Patient tolerated procedure well Additional Wound Wound debrided: Left lateral heel Type of Debridement: Excisional debridement Anesthesia Used: 4% Lidocaine Solution Depth: Down to and including healthy tissue and in the subcutaneous layer Percentage of wound debrided: 100 Instrument Used: 5mm curette Tissue Removed: Slough and devitalized tissue Severity: Fat Layer Exposed Amount of bleeding with debridement: Mild Bleeding Controlled with: Pressure Patient tolerated procedure: Patient tolerated procedure well Assessment/Plan Assessment/Plan (1) Ulcer of left lower extremity with fat layer exposed: CODE(S): L97.922 - Non-pressure chronic ulcer of unspecified part of left lower leg with fat layer exposed (2) Ulcer of right lower extremity with fat layer exposed: CODE(S): L97.912 - Non-pressure chronic ulcer of unspecified part of right lower leg with fat layer exposed (3) Bilateral lower extremity edema: CODE(S): R60.0 - Localized edema (4) Type 2 diabetes mellitus: CODE(S): E11.9 - Type 2 diabetes mellitus without complications (5) Cellulitis of leg: CODE(S): L03.119 - Cellulitis of unspecified part of limb (6) 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 Presents with new ulcerations and while some of his old ulcerations have improved, there has been some worsening as well. Left great toe with significant eschar manual debridement done to left great toe. X-ray ordered. Vascular studies have been ordered however he states that he is not going to get it done because he knows his flow is good. He also states that he is on Coumadin which should help his flow. Still has significant lower extremity edema, as above Lasix recently adjusted by cardiology however his feet remain significantly edematous. Dressing changes also not done as recommended and so maceration present. He is not keeping his lower extremity elevated because he has to go to the bathroom so often. Wound healing is definitely going to be a challenge due to poor compliance. Continue Promogran to most ulcers except left great toe which has been changed to Santyl due to eschar/necrotic tissue. Changed to low-dose daily. 3M wrap for edema management, come in on Saturday for nurse visit/change. Compliance with elevation strongly recommended. Exercise as tolerated. Increase protein intake, vitamin C and zinc discussed. Optimal diabetes control discussed. Their questions were answered and they were advised to call with any further questions or concerns. Follow-up in 1 week or sooner if needed. This note was generated with booskation software. It may contain incorrect words, spelling, and punctuation that were not noted in checking the note before signing.
--- NOTE | 2022-01-25 10:36 | RAD_ITS ---
EXAM: XR LEFT FOOT COMPLETE, 3 OR MORE VIEWS CLINICAL INDICATION: L GREAT TOE ULCER TECHNIQUE: Frontal, lateral and oblique views of the left foot. This report was created using [employer] report generation technology. COMPARISON: None. FINDINGS: BONES/JOINTS: No acute fracture or subluxation. There has been amputation of the left fourth toe noted. Plantar calcaneal spur noted. No evidence of osteomyelitis. SOFT TISSUES: Soft tissue swelling of the forefoot. Soft tissue ulceration at the lung medial portion of the great toe. No radiopaque foreign body. RAD/Foot min 3 Views IMPRESSION: No acute bone or joint abnormality. Electronically Signed: Severino Corral MD at 13:19 EDT ,
--- NOTE | 2022-01-25 10:40 | RAD_ITS ---
STUDY: X-RAY LEFT FOOT, TOE REASON FOR EXAM: Male, 76 years old. L GREAT TOE ULCER TECHNIQUE: 3 view(s) of the toe were obtained. COMPARISON: 11/03/2021 FINDINGS: Normal visualized metatarsus. 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 No radiographic evidence of osteomyelitis. Normal interphalangeal joints. Status post amputation of the fourth proximal, middle and distal phalanges. Moderate plantar calcaneal spurring. There is moderate soft tissue swelling of the great toe. Moderate atherosclerotic vascular calcification throughout the foot. RAD/Toe(s) Min 2 Views IMPRESSION: Moderate soft tissue swelling great toe progressive as compared to prior study. Findings are consistent with cellulitis. No radiographic evidence of osteomyelitis. Status post amputation fourth toe. Diffuse atherosclerotic vascular calcification and diffuse soft tissue swelling. Electronically Signed: Pedro Luis Bazan MD, LING at 16:52 EDT ,
[2022-01-29 08:39] VITALS: BP 142/69; PULSE 72; TEMP 36.2
== END 2022-01-29 23:59 | disposition home or self-care (01) ==
LOC: WC 08:00
PROVIDERS: PCP Family Medicine; Referring Provider Internal Medicine; Visit Provider Internal Medicine
DX: E11.621 Type 2 diabetes mellitus with foot ulcer (principal); L97.522 Non-pressure chronic ulcer of other part of left foot with fat layer exposed; L97.512 Non-pressure chronic ulcer of other part of right foot with fat layer exposed; L97.912 Non-pressure chronic ulcer of unspecified part of right lower leg with fat layer exposed; L97.922 Non-pressure chronic ulcer of unspecified part of left lower leg with fat layer exposed; Z79.01 Long term (current) use of 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s; R60.0 Localized edema; L03.119 Cellulitis of unspecified part of limb
CPT/HCPCS: 11042; 11045; 15271; 29581; 36415; 73630; 73660; 80048; 83880; 85610; Q4186

== ENCOUNTER 2022-02-01 10:13 | Day surgery (SDC) | payer MEDICARE, OTHER, SELFPAY ==
[2022-01-31 08:51] LABS: Anion Gap 4 (5-15); BUN 44 mg/dL (7-18); BUN/Creat Ratio 28.2 RATIO (10-20); Chloride 96 mmol/L (98-107); Creatinine, Serum 1.56 mg/dL (0.70-1.30); EST Glomerular Filtration Rate 46 mL/min (>60); Est Glom Filt Rate - Afr Amer 56 mL/min (>60); Glucose 86 mg/dL (74-106); Potassium 4.4 mmol/L (3.5-5.1); Sodium Level 135 mmol/L (136-145)
[2022-01-31 08:54] VITALS: BMI 26.4
[2022-01-31 09:16] LABS: International Normalized Ratio 2.9; Prothrombin Time (Protime)PT. 30.1 SECONDS (11.7-14.9)
[2022-02-01 10:21] LABS: INR Fingerstick 2.7; Prothrombin Time Fingerstick 30.6 SEC (11.7-14.9)
--- NOTE | 2022-02-01 12:11 | PCM.OP.BLANK ---
Problems Associated Problem List Diagnoses (1) Paroxysmal atrial fibrillation: Operative Report Date of Procedure: 02/01/22 DC cardioversion. 76-year-old man with a history of ischemic cardiomyopathy and atrial fibrillation and fatigue. The patient has been on anticoagulation for at least a month with therapeutic INRs. The patient presented for cardioversion. Patient was seen by Dr. Garner of the critical care division. Informed consent was obtained. Anterior-posterior pads were applied. The patient was administered 6 mg of intravenous etomidate. 200 J of synchronized DC cardioversion energy were applied with prompt reversal to sinus rhythm with premature ventricular complexes noted. Patient tolerated the procedure well. Conclusion: Status post DC cardioversion. Continue current medical therapy.
--- NOTE | 2022-02-01 12:53 | PCM.OP.PRO ---
Procedure Report Date of Procedure: 02/01/22 CONSCIOUS SEDATION REPORT DATE OF SERVICE: February 01, 2022 BRIEF HISTORY OF PRESENT ILLNESS: The patient is a 76-year-old male who presented to [facility] for an elective outpatient cardioversion due to underlying atrial fibrillation. The patient denied ever having gone through a prior cardioversion. He denied any prior anesthetic complications. His last surface echocardiogram demonstrated an ejection fraction of approximately 35%. The patient is systemically anticoagulated on Coumadin with an INR this morning of 2.7. PHYSICAL EXAMINATION: VITAL SIGNS: Reviewed and were acceptable. GENERAL: The patient is a male, in no apparent distress, speaking in full sentences. HEENT: Normocephalic, atraumatic. Mucous membranes are moist and pink. Good mouth opening noted. Trachea is midline. Good neck mobility. CHEST: S1, S2 irregularly irregular. No murmurs, rubs or gallops were noted. LUNGS: Clear to auscultation bilaterally without appreciable wheezes, rales or rhonchi. ABDOMEN: Soft, nontender, nondistended. Positive bowel sounds. EXTREMITIES: There is no clubbing or cyanosis. Bilateral lower extremity compression stockings in place. ASA Class: II DESCRIPTION OF PROCEDURE: After confirmation of informed consent, the patient's anesthesia plan was reviewed in detail. Etomidate was chosen. Risks and benefits were reviewed and the patient agreed to proceed. At 1204, the patient was given 6 mg of etomidate. The patient achieved an appropriate level of sedation and was given a 200 joule synchronized cardioversion by Dr. Onofre at the bedside. This was successful in achieving normal sinus rhythm. The patient was monitored until 1217, at which time he reached his baseline mental status and function. The patient tolerated the procedure well. COMPLICATIONS: None ESTIMATED BLOOD LOSS: None RECOMMENDATIONS: Okay to recover in usual fashion. Procedures Pulmonary 9xxxx: [id number] Con Sedation
== END 2022-02-01 13:30 | disposition home or self-care (01) ==
LOC: CLSP 10:14
PROVIDERS: Nurse Practitioner Gerontology; PCP Family Medicine; Referring Provider Internal Medicine Cardiovascular Disease; Visit Provider Internal Medicine Cardiovascular Disease
DX: I48.0 Paroxysmal atrial fibrillation (principal); E11.621 Type 2 diabetes mellitus with foot ulcer; E11.51 Type 2 diabetes mellitus with diabetic peripheral angiopathy without gangrene; L97.512 Non-pressure chronic ulcer of other part of right foot with fat layer exposed; L97.522 Non-pressure chronic ulcer of other part of left foot with fat layer exposed; I42.9 Cardiomyopathy, unspecified; E11.22 Type 2 diabetes mellitus with diabetic chronic kidney disease; I73.9 Peripheral vascular disease, unspecified; R60.0 Localized edema; I25.2 Old myocardial infarction; G47.33 Obstructive sleep apnea (adult) (pediatric); I25.10 Atherosclerotic heart disease of native coronary artery without angina pectoris; E78.5 Hyperlipidemia, unspecified; I25.5 Ischemic cardiomyopathy; L03.119 Cellulitis of unspecified part of limb; N18.9 Chronic kidney disease, unspecified; Z95.5 Presence of coronary angioplasty implant and graft; Z95.1 Presence of aortocoronary bypass graft; Z79.899 Other long term (current) drug therapy; Z79.82 Long term (current) use of aspirin; Z95.810 Presence of automatic (implantable) cardiac defibrillator; Z79.01 Long term (current) use of 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s
CPT/HCPCS: 11042; 11045; 29581; 36415; 36416; 80048; 85610; 92960; 93005; J7040

== ENCOUNTER 2022-02-27 08:00 | Outpatient (RCR) | payer MEDICARE, OTHER, SELFPAY ==
[2022-01-30 00:33] VITALS: BP 142/69; PULSE 72; RESP 16; TEMP 36.2
[2022-02-01 08:00] VITALS: BP 99/54; PULSE 83; RESP 18; TEMP 35.9
--- NOTE | 2022-02-01 09:52 | PCM.WC.PN ---
History of Present Illness Date of Service: 02/01/22 Chief Complaint: Bilateral lower extremity ulcer History of Wound: Mr. Brandt is a 76-year-old who presents to the wound center due to non healing bilateral lower extremity ulcerations. He states that it started out as significant bilateral lower extremity swelling on the 10 of September. He sat for 4 straight hours mowing his lawn. Woke up the next day with significant lower extremity swelling. Currently on Lasix which he states that he has been taking. Bought some compression stockings but could not use it because it was too tight. He is mostly sedentary. History of diabetes mellitus type 2, he reports good control. Does not have as much feeling in his lower extremities. He presented to the hospital almost a week ago due to worsening bilateral lower extremity pain, redness, chills and feeling of unwell. Managed for cellulitis. Discharged on antibiotics. Feels better today. Still a lot of drainage and lower extremity swelling. Progress of Wound: Left foot with significant maceration and edema. Leg ulcers with some improvement. Objective Data Objective Data Vital Signs: Vital Signs Temp Pulse Resp BP 96.7 F L 83 18 99/54 L 02/01/22 08:00 02/01/22 08:00 02/01/22 08:00 02/01/22 08:00 Charges/Coding Procedures Integumentary [id number]: [id number] Jannie subq tissue 20 sq cm/< Add On Codes: [id number] Jannie subq tissue add-on (x1 additional square centimeter debrided, please refer to clinical note.) Physical Exam Const alert, oriented x3 and no apparent distress General Appearance: cooperative, comfortable and well developed Orientation / Consciousness: awake HEENT normocephalic, head/scalp atraumatic and hearing grossly normal bilaterally Eyes General Eye: normal appearance of both eyes Neck full ROM and supple General: normal visual inspection Resp normal respiratory effort Effort and Inspection: able to speak in complete sentences Extremity full ROM General Extremity: edema Skin Wounds: wounds noted Neuro oriented x3, CN's II-XII intact bilaterally, moves all extremities and no focal motor deficits Psych mental status grossly normal Appearance: grossly normal Attitude: calm Activity / Motor Behavior: appropriate eye contact Debridement Note Debridement Note Wound debrided: Right leg (superior) Type of Debridement: Excisional debridement Anesthesia Used: 4% Lidocaine Solution Depth: Down to and including healthy tissue and in the subcutaneous layer Percentage of wound debrided: 100 Instrument Used: 5mm curette Tissue Removed: Slough and devitalized tissue Severity: Fat Layer Exposed Amount of bleeding with debridement: Mild Bleeding Controlled with: Pressure Patient tolerated procedure: Patient tolerated procedure well Post-Debridement Measurements and Additional Note: Post-Debridement Measurements/Treatment DAVID - Nurse 1 - General Ulcer Assessment Start: 02/01/22 08:00 Freq: Status: Active Protocol: CHAPARRITA Activity Type Activity Date Activity User E-sign Co-sign Detail Recorded Client Recorded Date Recorded By Document 02/01/22 08:00 DL [id number] 02/01/22 08:23 DL 02/01/22 08:00 WC - Today's Visit Information Type of service 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 Any new allergies or adverse reactions No Had a fall/change in ADL's that may No increase risk of falls Signs or symptoms of abuse and/or No neglect since last visit Have you been in the hospital since your No last visit? Has dressing in place as prescribed Yes Has compression in place as prescribed Yes Has offloadiing in place as prescribed Yes Experienced any changes in pain level or No management Pain Scale: 0-10 Numeric Is Patient Pain Free? Yes DAVID - Nurse 1 - General Ulcer Measurement Start: 02/01/22 08:00 Freq: Status: Active Protocol: Activity Type Activity Date Activity User E-sign Co-sign Detail Recorded Client Recorded Date Recorded By Document 02/01/22 08:00 DL [id number] 02/01/22 08:23 DL 02/01/22 08:00 Wound Center Nurse 1 #10 R 2nd toe -Current Size (cm) - Length 0.8 -Current Size (cm) - Width 0.6 -Current Size (cm) - Depth 0.1 -Total Square Cm 0.48 -Photo Taken No -Exudate Amt Small -Exudate Type Serosanguineous -Wound Margin Distinct, Outline Attached -Granulation Amt Small (1-33%) -Granulation Quality Running Water -Necrosis Amt Small (1-33%) -Necrotic Tissue Type Adherent Slough -Structure Exposed N/A -Texture (Ana-wound Skin Appearance) Scarring -Moisture (Ana-wound Skin Appearance) No Abnormality -Color (Ana-wound Skin Appearance) Hemosiderin Staining -Temperature (Ana-wound Skin No Abnormality Appearance) (Pt Warm) -Tenderness on Palpation (Ana-wound Yes Skin Appearance) -Ulcer Cleansing Soap and Water -Foul Odor after Cleansing Yes, Due to Product Use -Anesthetic Used 4% Lidocaine Solution #9 L Lat Foot -Current Size (cm) - Length 1 -Current Size (cm) - Width 0.3 -Current Size (cm) - Depth 0.1 -Total Square Cm 0.3 -Photo Taken Yes -Exudate Amt Small -Exudate Type Serosanguineous -Wound Margin Distinct, Outline Attached -Granulation Amt Large (67-100%) -Granulation Quality Running Water -Necrosis Amt Small (1-33%) -Necrotic Tissue Type Adherent Slough -Texture (Ana-wound Skin Appearance) Scarring -Moisture (Ana-wound Skin Appearance) No Abnormality -Color (Ana-wound Skin Appearance) Hemosiderin Staining -Temperature (Ana-wound Skin No Abnormality Appearance) (Pt Warm) -Tenderness on Palpation (Ana-wound No Skin Appearance) -Ulcer Cleansing Soap and Water -Foul Odor after Cleansing No -Anesthetic Used 4% Lidocaine Solution #8 R LE Med -Current Size (cm) - Length 2.7 -Current Size (cm) - Width 1.6 -Current Size (cm) - Depth 0.1 -Total Square Cm 4.32 -Photo Taken Yes -Exudate Amt Small -Exudate Type Serosanguineous -Wound Margin Distinct, Outline Attached -Granulation Amt Medium (34-66%) -Granulation Quality Running Water -Necrosis Amt Medium (34-66%) -Necrotic Tissue Type Adherent Slough -Structure Exposed N/A -Texture (Ana-wound Skin Appearance) Scarring -Moisture (Ana-wound Skin Appearance) Dry/Scaly -Color (Ana-wound Skin Appearance) Hemosiderin Staining -Temperature (Ana-wound Skin No Abnormality Appearance) (Pt Warm) -Ulcer Cleansing Soap and Water -Foul Odor after Cleansing No -Anesthetic Used 4% Lidocaine Solution #7 R Inf. LE -Current Size (cm) - Length 2.7 -Current Size (cm) - Width 1.4 -Current Size (cm) - Depth 0.2 -Total Square Cm 3.78 -Photo Taken Yes -Exudate Amt Medium -Exudate Type Serosanguineous -Wound Margin Distinct, Outline Attached -Granulation Amt Medium (34-66%) -Granulation Quality Red -Necrosis Amt Medium (34-66%) -Necrotic Tissue Type Adherent Slough -Structure Exposed N/A -Texture (Ana-wound Skin Appearance) Scarring -Moisture (Ana-wound Skin Appearance) No Abnormality -Color (Ana-wound Skin Appearance) Hemosiderin Staining -Temperature (Ana-wound Skin No Abnormality Appearance) (Pt Warm) -Tenderness on Palpation (Ana-wound No Skin Appearance) -Ulcer Cleansing Soap and Water -Foul Odor after Cleansing No -Anesthetic Used 4% Lidocaine Solution #6 R Sup LE -Current Size (cm) - Length 2.3 -Current Size (cm) - Width 0.8 -Current Size (cm) - Depth 0.2 -Total Square Cm 1.84 -Photo Taken Yes -Exudate Amt Small -Exudate Type Serosanguineous -Wound Margin Distinct, Outline Attached -Granulation Amt Medium (34-66%) -Granulation Quality Red -Necrosis Amt Medium (34-66%) -Structure Exposed N/A -Texture (Ana-wound Skin Appearance) Localized Edema ,Scarring -Moisture (Ana-wound Skin Appearance) Dry/Scaly -Color (Ana-wound Skin Appearance) Hemosiderin Staining -Temperature (Ana-wound Skin No Abnormality Appearance) (Pt Warm) -Tenderness on Palpation (Ana-wound No Skin Appearance) -Ulcer Cleansing Soap and Water -Foul Odor after Cleansing No -Anesthetic Used 4% Lidocaine Solution #5 R Dorsal -Current Size (cm) - Length 1.4 -Current Size (cm) - Width 1.4 -Current Size (cm) - Depth 0.3 -Total Square Cm 1.96 -Photo Taken No -Exudate Amt Medium -Exudate Type Serosanguineous -Wound Margin Distinct, Outline Attached -Granulation Amt Small (1-33%) -Granulation Quality Running Water -Necrosis Amt Large (67-100%) -Necrotic Tissue Type Adherent Slough -Structure Exposed N/A -Texture (Ana-wound Skin Appearance) Scarring -Moisture (Ana-wound Skin Appearance) Maceration -Color (Ana-wound Skin Appearance) Hemosiderin Staining -Temperature (Ana-wound Skin No Abnormality Appearance) (Pt Warm) -Ulcer Cleansing Soap and Water -Foul Odor after Cleansing No -Anesthetic Used 4% Lidocaine Solution #4 L Med Cluster -Current Size (cm) - Length 11 -Current Size (cm) - Width 2.5 -Current Size (cm) - Depth 0.2 -Total Square Cm 27.5 -Photo Taken Yes -Exudate Amt Small -Exudate Type Serosanguineous -Wound Margin Distinct, Outline Attached -Granulation Amt Medium (34-66%) -Granulation Quality Red -Necrosis Amt Medium (34-66%) -Necrotic Tissue Type Adherent Slough -Structure Exposed N/A -Texture (Ana-wound Skin Appearance) Scarring -Moisture (Ana-wound Skin Appearance) Dry/Scaly -Color (Ana-wound Skin Appearance) Hemosiderin Staining -Temperature (Ana-wound Skin No Abnormality Appearance) (Pt Warm) -Ulcer Cleansing Soap and Water -Foul Odor after Cleansing No -Anesthetic Used 4% Lidocaine Solution #3 L Lat heel -Current Size (cm) - Length 1 -Current Size (cm) - Width 0.3 -Current Size (cm) - Depth 0.2 -Total Square Cm 0.3 -Photo Taken Yes -Exudate Amt None Present -Exudate Type Serosanguineous -Wound Margin Distinct, Outline Attached -Granulation Amt Small (1-33%) -Granulation Quality Running Water -Necrosis Amt None Present (0 %) -Structure Exposed N/A -Texture (Ana-wound Skin Appearance) Localized Edema ,Scarring -Moisture (Ana-wound Skin Appearance) Assessed -Color (Ana-wound Skin Appearance) No Abnormality -Temperature (Ana-wound Skin No Abnormality Appearance) (Pt Warm) -Tenderness on Palpation (Ana-wound No Skin Appearance) -Ulcer Cleansing Soap and Water -Foul Odor after Cleansing No -Anesthetic Used 4% Lidocaine Solution #2 L 3rd toe -Current Size (cm) - Length 1.5 -Current Size (cm) - Width 0.9 -Current Size (cm) - Depth 0.1 -Total Square Cm 1.35 -Photo Taken Yes -Exudate Amt Medium -Exudate Type Serosanguineous -Wound Margin Distinct, Outline Attached -Granulation Amt None Present (0 %) -Necrosis Amt Large (67-100%) -Necrotic Tissue Type Adherent Slough -Structure Exposed N/A -Texture (Ana-wound Skin Appearance) Localized Edema ,Scarring -Moisture (Ana-wound Skin Appearance) Maceration -Color (Ana-wound Skin Appearance) Hemosiderin Staining -Temperature (Ana-wound Skin No Abnormality Appearance) (Pt Warm) -Tenderness on Palpation (Ana-wound No Skin Appearance) -Ulcer Cleansing Soap and Water -Foul Odor after Cleansing No -Anesthetic Used 4% Lidocaine Solution #1 L Hallux -Current Size (cm) - Length 2.5 -Current Size (cm) - Width 2.2 -Current Size (cm) - Depth 0.1 -Total Square Cm 5.50 -Photo Taken Yes -Exudate Amt Medium -Exudate Type Serosanguineous -Wound Margin Distinct, Outline Attached -Texture (Ana-wound Skin Appearance) Localized Edema ,Scarring -Moisture (Ana-wound Skin Appearance) Dry/Scaly -Color (Ana-wound Skin Appearance) Erythema, Hemosiderin Staining -Temperature (Ana-wound Skin No Abnormality Appearance) (Pt Warm) -Tenderness on Palpation (Ana-wound No Skin Appearance) -Ulcer Cleansing Soap and Water -Foul Odor after Cleansing No -Anesthetic Used 4% Lidocaine Solution Right Calf (cm) 32.4 Right Ankle (cm) 22.2 Left Calf (cm) 35.1 Left Ankle (cm) 25.2 WC - Nurse 2 - General Ulcer CM Notes Start: 02/01/22 08:00 Freq: Status: Active Protocol: Activity Type Activity Date Activity User E-sign Co-sign Detail Recorded Client Recorded Date Recorded By Document 02/01/22 08:31 MW [id number] 02/01/22 08:58 MW 02/01/22 08:31 Wound Center Nurse 2 #10 R 2nd toe -Time 08:32 -Correct Patient Yes -Correct Side, Site, Position Yes -Correct Procedure Yes -Procedure Performed Yes -Type of Procedure Debridement -Clinical Debridement Subcutaneous -Tissue Removed Subcutaneous -Post Debridement (cm) - Length 1.5 -Post Debridement (cm) - Width 0.9 -Post Debridement (cm) - Depth 0.1 -Total Square (Post) (cm) 1.35 -Area of Debridement (cm) - Length 1.5 -Area of Debridement (cm) - Width 0.9 -Total Square (Area) (cm) 1.35 -Tunneling No -Undermining/Tunneling No -Circular Undermining No -Wound/Ulcer Outcome Not Healed -Ulcer Cleansing Rinsed/ Irrigated with Saline -Foul Odor after Cleansing No -Bioengineered Tissue No -Bleeding Controlled with Pressure -Treatment Response Procedure Tolerated Well -Offloading No -Debridement - Subq, 1st 20sq cm Yes -Debridement, SubQ, ea addt'l 20sq cm 1 or part thereof #9 L Lat Foot -Time 08:32 -Correct Patient Yes -Correct Side, Site, Position Yes -Correct Procedure Yes -Procedure Performed Yes -Type of Procedure Debridement -Clinical Debridement Subcutaneous -Tissue Removed Subcutaneous -Post Debridement (cm) - Length 1.0 -Post Debridement (cm) - Width 0.6 -Post Debridement (cm) - Depth 0.1 -Total Square (Post) (cm) 0.60 -Area of Debridement (cm) - Length 1.0 -Area of Debridement (cm) - Width 0.6 -Total Square (Area) (cm) 0.60 -Tunneling No -Undermining/Tunneling No -Circular Undermining No -Wound/Ulcer Outcome Not Healed -Ulcer Cleansing Rinsed/ Irrigated with Saline -Foul Odor after Cleansing No -Bioengineered Tissue No -Bleeding Controlled with Pressure -Treatment Response Procedure Tolerated Well -Offloading No -Debridement - Subq, 1st 20sq cm No #8 R LE Med -Time 08:33 -Correct Patient Yes -Correct Side, Site, Position Yes -Correct Procedure Yes -Procedure Performed Yes -Type of Procedure Debridement -Clinical Debridement Subcutaneous -Tissue Removed Subcutaneous -Post Debridement (cm) - Length 3.2 -Post Debridement (cm) - Width 1.5 -Post Debridement (cm) - Depth 0.1 -Total Square (Post) (cm) 4.80 -Area of Debridement (cm) - Length 3.2 -Area of Debridement (cm) - Width 1.5 -Total Square (Area) (cm) 4.80 -Tunneling No -Undermining/Tunneling No -Circular Undermining No -Wound/Ulcer Outcome Not Healed -Ulcer Cleansing Rinsed/ Irrigated with Saline -Foul Odor after Cleansing No -Bioengineered Tissue No -Bleeding Controlled with Pressure -Treatment Response Procedure Tolerated Well -Offloading No -Debridement - Subq, 1st 20sq cm No #7 R Inf. LE -Time 08:33 -Correct Patient Yes -Correct Side, Site, Position Yes -Correct Procedure Yes -Procedure Performed Yes -Type of Procedure Debridement -Clinical Debridement Subcutaneous -Tissue Removed Subcutaneous -Post Debridement (cm) - Length 3.0 -Post Debridement (cm) - Width 1.5 -Post Debridement (cm) - Depth 0.1 -Total Square (Post) (cm) 4.50 -Area of Debridement (cm) - Length 3.0 -Area of Debridement (cm) - Width 1.5 -Total Square (Area) (cm) 4.50 -Tunneling No -Undermining/Tunneling No -Circular Undermining No -Wound/Ulcer Outcome Not Healed -Ulcer Cleansing Rinsed/ Irrigated with Saline -Foul Odor after Cleansing No -Bioengineered Tissue No -Bleeding Controlled with Pressure -Treatment Response Procedure Tolerated Well -Offloading No -Debridement - Subq, 1st 20sq cm No #6 R Sup LE -Time 08:34 -Correct Patient Yes -Correct Side, Site, Position Yes -Correct Procedure Yes -Procedure Performed Yes -Type of Procedure Debridement -Clinical Debridement Subcutaneous -Tissue Removed Subcutaneous -Post Debridement (cm) - Length 2.0 -Post Debridement (cm) - Width 0.6 -Post Debridement (cm) - Depth 0.1 -Total Square (Post) (cm) 1.20 -Area of Debridement (cm) - Length 2.0 -Area of Debridement (cm) - Width 0.6 -Total Square (Area) (cm) 1.20 -Tunneling No -Undermining/Tunneling No -Circular Undermining No -Wound/Ulcer Outcome Not Healed -Ulcer Cleansing Rinsed/ Irrigated with Saline -Foul Odor after Cleansing No -Bioengineered Tissue No -Bleeding Controlled with Pressure -Treatment Response Procedure Tolerated Well -Offloading No -Debridement - Subq, 1st 20sq cm No #5 R Dorsal -Time 08:34 -Correct Patient Yes -Correct Side, Site, Position Yes -Correct Procedure Yes -Procedure Performed Yes -Type of Procedure Debridement -Clinical Debridement Subcutaneous -Tissue Removed Subcutaneous -Post Debridement (cm) - Length 1.5 -Post Debridement (cm) - Width 1.4 -Post Debridement (cm) - Depth 0.3 -Total Square (Post) (cm) 2.10 -Area of Debridement (cm) - Length 1.5 -Area of Debridement (cm) - Width 1.4 -Total Square (Area) (cm) 2.10 -Tunneling No -Undermining/Tunneling No -Circular Undermining No -Wound/Ulcer Outcome Not Healed -Ulcer Cleansing Rinsed/ Irrigated with Saline -Foul Odor after Cleansing No -Bioengineered Tissue No -Bleeding Controlled with Pressure -Treatment Response Procedure Tolerated Well -Offloading No -Debridement - Subq, 1st 20sq cm No #4 L Med Cluster -Time 08:34 -Correct Patient Yes -Correct Side, Site, Position Yes -Correct Procedure Yes -Procedure Performed Yes -Type of Procedure Debridement -Clinical Debridement Subcutaneous -Tissue Removed Subcutaneous -Post Debridement (cm) - Length 10.4 -Post Debridement (cm) - Width 1.0 -Post Debridement (cm) - Depth 0.1 -Total Square (Post) (cm) 10.40 -Area of Debridement (cm) - Length 10.4 -Area of Debridement (cm) - Width 1.0 -Total Square (Area) (cm) 10.40 -Tunneling No -Undermining/Tunneling No -Circular Undermining No -Wound/Ulcer Outcome Not Healed -Ulcer Cleansing Rinsed/ Irrigated with Saline -Foul Odor after Cleansing No -Bioengineered Tissue No -Bleeding Controlled with Pressure -Treatment Response Procedure Tolerated Well -Offloading No -Debridement - Subq, 1st 20sq cm No #3 L Lat heel -Time 08:35 -Correct Patient Yes -Correct Side, Site, Position Yes -Correct Procedure Yes -Procedure Performed Yes -Type of Procedure Debridement -Clinical Debridement Subcutaneous -Tissue Removed Subcutaneous -Post Debridement (cm) - Length 1.0 -Post Debridement (cm) - Width 0.7 -Post Debridement (cm) - Depth 0.1 -Total Square (Post) (cm) 0.70 -Area of Debridement (cm) - Length 1.0 -Area of Debridement (cm) - Width 0.7 -Total Square (Area) (cm) 0.70 -Tunneling No -Undermining/Tunneling No -Circular Undermining No -Wound/Ulcer Outcome Not Healed -Ulcer Cleansing Rinsed/ Irrigated with Saline -Foul Odor after Cleansing No -Bioengineered Tissue No -Bleeding Controlled with Pressure -Treatment Response Procedure Tolerated Well -Offloading No -Debridement - Subq, 1st 20sq cm No #2 L 3rd toe -Time 08:35 -Correct Patient Yes -Correct Side, Site, Position Yes -Correct Procedure Yes -Procedure Performed Yes -Type of Procedure Debridement -Clinical Debridement Subcutaneous -Tissue Removed Subcutaneous -Post Debridement (cm) - Length 1.5 -Post Debridement (cm) - Width 0.6 -Post Debridement (cm) - Depth 0.1 -Total Square (Post) (cm) 0.90 -Area of Debridement (cm) - Length 1.5 -Area of Debridement (cm) - Width 0.6 -Total Square (Area) (cm) 0.90 -Tunneling No -Undermining/Tunneling No -Circular Undermining No -Wound/Ulcer Outcome Not Healed -Ulcer Cleansing Rinsed/ Irrigated with Saline -Foul Odor after Cleansing No -Bioengineered Tissue No -Bleeding Controlled with Pressure -Treatment Response Procedure Tolerated Well -Offloading No -Debridement - Subq, 1st 20sq cm No #1 L Hallux -Time 08:36 -Correct Patient Yes -Correct Side, Site, Position Yes -Correct Procedure Yes -Procedure Performed Yes -Type of Procedure Debridement -Clinical Debridement Subcutaneous -Tissue Removed Subcutaneous -Post Debridement (cm) - Length 2.5 -Post Debridement (cm) - Width 2.4 -Post Debridement (cm) - Depth 0.1 -Total Square (Post) (cm) 6.00 -Area of Debridement (cm) - Length 2.5 -Area of Debridement (cm) - Width 2.4 -Total Square (Area) (cm) 6.00 -Tunneling No -Undermining/Tunneling No -Circular Undermining No -Wound/Ulcer Outcome Not Healed -Ulcer Cleansing Rinsed/ Irrigated with Saline -Foul Odor after Cleansing No -Bioengineered Tissue No -Bleeding Controlled with Pressure -Treatment Response Procedure Tolerated Well -Offloading No -Debridement - Subq, 1st 20sq cm No Pain Scale: 0-10 Numeric Is Patient Pain Free? Yes WC - Nurse 3 - General Ulcer D/C NN Start: 02/01/22 08:00 Freq: Status: Active Protocol: Activity Type Activity Date Activity User E-sign Co-sign Detail Recorded Client Recorded Date Recorded By Document 02/01/22 09:10 [facility] [id number] 02/01/22 09:18 [facility] 02/01/22 09:10 Wound Care Nurse 3 #10 R 2nd toe -Ulcer Cleansing Rinsed/ Irrigated with Saline -Foul Odor after Cleansing No -Primary Dressing Applied Aquacel Extra -Other Dressing DRSG PER NC RN -Primary Dressing Covered/Secured with Dry Gauze -Other Covering ABD -Aquacel Extra 3 #9 L Lat Foot -Ulcer Cleansing Rinsed/ Irrigated with Saline -Foul Odor after Cleansing No -Primary Dressing Applied Aquacel Extra -Other Dressing ABD -Primary Dressing Covered/Secured with Dry Gauze -Other Covering PER NC RN -Aquacel Extra 0 #8 R LE Med -Ulcer Cleansing Rinsed/ Irrigated with Saline -Foul Odor after Cleansing No -Primary Dressing Applied Aquacel Extra -Other Dressing DRSG PER NC RN -Other Covering ABD -Aquacel Extra 0 #7 R Inf. LE -Ulcer Cleansing Rinsed/ Irrigated with Saline -Foul Odor after Cleansing No -Primary Dressing Applied Aquacel Extra -Other Dressing ABD, DRSG PER NC RN -Aquacel Extra 0 #6 R Sup LE -Ulcer Cleansing Rinsed/ Irrigated with Saline -Foul Odor after Cleansing No -Primary Dressing Applied Aquacel Extra -Other Dressing DRSG PER NC RN -Other Covering ABD, -Aquacel Extra 0 #5 R Dorsal -Ulcer Cleansing Rinsed/ Irrigated with Saline -Foul Odor after Cleansing No -Primary Dressing Applied Aquacel Extra -Other Dressing ABD -Other Covering DRSG PER NC RN -Aquacel Extra 0 #4 L Med Cluster -Ulcer Cleansing Rinsed/ Irrigated with Saline -Foul Odor after Cleansing No -Primary Dressing Applied Aquacel Extra -Other Dressing DRSG PER NC RN -Other Covering ABD -Aquacel Extra 0 #3 L Lat heel -Ulcer Cleansing Rinsed/ Irrigated with Saline -Foul Odor after Cleansing No -Primary Dressing Applied Aquacel Extra -Other Dressing HEEL HAT, DRSG PER NC RN -Aquacel Extra 0 #2 L 3rd toe -Ulcer Cleansing Rinsed/ Irrigated with Saline -Foul Odor after Cleansing No -Primary Dressing Applied Aquacel Extra -Other Dressing DRSG PER MT RN -Primary Dressing Covered/Secured with Dry Gauze, Secured with Tape -Aquacel Extra 0 #1 L Hallux -Ulcer Cleansing Rinsed/ Irrigated with Saline -Foul Odor after Cleansing No -Other Dressing SANTYL, DRSG PER MT RN -Primary Dressing Covered/Secured with Dry Gauze & Roll Gauze, Secured with Tape BLE -Multi-Layered Wrap Application Multi-Layer Comp - Bilat ($ ) Treatment Response Procedure Tolerated Well Pain Scale: 0-10 Numeric Is Patient Pain Free? Yes WC - Visit Discharge Discharge Condition Stable Ambulatory Status Ambulatory Transportation Private Auto Accompanied by Additional Wound Wound debrided: Right leg (inferior) Type of Debridement: Excisional debridement Anesthesia Used: 4% Lidocaine Solution and 5% Lidocaine Gel Depth: Down to and including healthy tissue and in the subcutaneous layer Percentage of wound debrided: 100 Instrument Used: 5mm curette Tissue Removed: Slough and devitalized tissue Severity: Fat Layer Exposed Amount of bleeding with debridement: Mild Bleeding Controlled with: Pressure Patient tolerated procedure: Patient tolerated procedure well Additional Wound Wound debrided: Right dorsal foot Type of Debridement: Excisional debridement Anesthesia Used: 4% Lidocaine Solution Depth: Down to and including healthy tissue and in the subcutaneous layer Percentage of wound debrided: 100 Instrument Used: 5mm curette Tissue Removed: Slough and devitalized tissue Severity: Fat Layer Exposed Amount of bleeding with debridement: Mild Bleeding Controlled with: Pressure Patient tolerated procedure: Patient tolerated procedure well Additional Wound Wound debrided: Right lower extremity medial Type of Debridement: Excisional debridement Anesthesia Used: 4% Lidocaine Solution Depth: Down to and including healthy tissue Percentage of wound debrided: 100 Instrument Used: 5mm curette Tissue Removed: Slough and devitalized tissue Severity: Fat Layer Exposed Amount of bleeding with debridement: Mild Bleeding Controlled with: Pressure Patient tolerated procedure: Patient tolerated procedure well Additional Wound Wound debrided: Right third toe Type of Debridement: Excisional debridement Anesthesia Used: 4% Lidocaine Solution Depth: Down to and including healthy tissue and in the subcutaneous layer Percentage of wound debrided: 100 Instrument Used: 3mm curette Tissue Removed: Slough and devitalized tissue Severity: Fat Layer Exposed Amount of bleeding with debridement: Mild Bleeding Controlled with: Pressure Patient tolerated procedure: Patient tolerated procedure well Additional Wound Wound debrided: Left great toe Type of Debridement: Excisional debridement Anesthesia Used: 4% Lidocaine Solution Depth: Down to and including healthy tissue and in the subcutaneous layer Percentage of wound debrided: 100 Instrument Used: 5mm curette Tissue Removed: Slough and devitalized tissue Severity: Fat Layer Exposed Amount of bleeding with debridement: Mild Bleeding Controlled with: Pressure Patient tolerated procedure: Patient tolerated procedure well Additional Wound Wound debrided: Left third toe Type of Debridement: Excisional debridement Anesthesia Used: 4% Lidocaine Solution Depth: Down to and including healthy tissue and in the subcutaneous layer Percentage of wound debrided: 100 Instrument Used: 3mm curette Tissue Removed: Slough and devitalized tissue Severity: Fat Layer Exposed Amount of bleeding with debridement: Mild Bleeding Controlled with: Pressure Patient tolerated procedure: Patient tolerated procedure well Additional Wound Wound debrided: Left lateral foot Type of Debridement: Excisional debridement Anesthesia Used: 4% Lidocaine Solution Depth: Down to and including healthy tissue and in the subcutaneous layer Percentage of wound debrided: 100 Instrument Used: 3mm curette Tissue Removed: Slough and devitalized tissue Severity: Fat Layer Exposed Amount of bleeding with debridement: Mild Bleeding Controlled with: Pressure Patient tolerated procedure: Patient tolerated procedure well Additional Wound Wound debrided: Left heel Type of Debridement: Excisional debridement Anesthesia Used: 4% Lidocaine Solution Depth: Down to and including healthy tissue and in the subcutaneous layer Percentage of wound debrided: 100 Instrument Used: 5mm curette Tissue Removed: Slough and devitalized tissue Severity: Fat Layer Exposed Amount of bleeding with debridement: Mild Bleeding Controlled with: Pressure Patient tolerated procedure: Patient tolerated procedure well Assessment/Plan Assessment/Plan (1) Ulcer of left lower extremity with fat layer exposed: CODE(S): L97.922 - Non-pressure chronic ulcer of unspecified part of left lower leg with fat layer exposed (2) Ulcer of right lower extremity with fat layer exposed: CODE(S): L97.912 - Non-pressure chronic ulcer of unspecified part of right lower leg with fat layer exposed (3) Bilateral lower extremity edema: CODE(S): R60.0 - Localized edema (4) Type 2 diabetes mellitus: CODE(S): E11.9 - Type 2 diabetes mellitus without complications (5) Cellulitis of leg: CODE(S): L03.119 - Cellulitis of unspecified part of limb (6) [facility] current use of 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: CODE(S): 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 (7) Ulcer of right foot with fat layer exposed: CODE(S): L97.512 - Non-pressure chronic ulcer of other part of right foot with fat layer exposed (8) Skin ulcer of left great toe with fat layer exposed: CODE(S): L97.522 - Non-pressure chronic ulcer of other part of left foot with fat layer exposed (9) 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 Debridement to the subcutaneous layer. Slough and devitalized tissue taken off and procedure was well-tolerated. Minimal bleeding. Still has significant maceration of his left toes/foot.x-ray ordered at last visit reviewed and concerning for cellulitis, prescription for Augmentin was sent however he is yet to start this. Due to significant maceration, switch to Aquacel extra. Change to use daily or twice daily depending on drainage. Come in on Saturday for change of leg ulcers due to 3M wrap. Again, leg elevation and exercise as tolerated recommended for edema management. Continue Santyl to left great toe some improvement in slough burden. 3M wrap for edema management, come in on Saturday for nurse visit/change. Increase protein intake, vitamin C and zinc discussed. Optimal diabetes control discussed. Their questions were answered and they were advised to call with any further questions or concerns. Follow-up in 1 week or sooner if needed. This note was generated with [employer] dictation software. It may contain incorrect words, spelling, and punctuation that were not noted in checking the note before signing.
[2022-02-08 08:26] VITALS: BP 128/29; PULSE 73; RESP 20; TEMP 35.9
--- NOTE | 2022-02-08 10:40 | RAD_ITS ---
STUDY: X-RAY - LEFT FOOT CLINICAL: Male, 76 years old. Wound. TECHNIQUE: 4 view(s) of the foot. COMPARISON: January 25, 2022. FINDINGS: Osteopenia. Stable mild arthrosis of the tibiotalar and subtalar joints. Large inferior calcaneal spur unchanged. Stable arthrosis of the midfoot. Mild arthrosis of the TMT joints, unchanged. Moderate arthrosis of the MTP and IP joints, unchanged. Resection of the phalanges of the fourth digit, unaltered. Stable vascular calcification. RAD/Foot min 3 Views IMPRESSION: Stable osteopenia, inferior calcaneal spur and osteoarthritic changes. No bone erosion. Electronically Signed: Jin Irizarry, at 11:35 EST ,
--- NOTE | 2022-02-08 10:40 | RAD_ITS ---
STUDY: X-RAY LEFT FOOT, FIRST TOE REASON FOR EXAM: Male, 76 years old. Wound on first toe. TECHNIQUE: 3 view(s) of the toe were obtained. COMPARISON: Left foot x-rays dated January 25, 2022. FINDINGS: Osteopenia. Stable resection of the phalanges of the fourth digit. Moderate arthrosis of the MTP and IP joints with hammertoe deformities, unchanged. Diffuse soft tissue swelling. Stable vascular calcification. RAD/Toe(s) Min 2 Views IMPRESSION: Osteopenia with stable osteoarthritic changes and post resection of the phalanges of the fourth digit. Soft tissue swelling of the first toe. No bony erosion. Electronically Signed: Jin Irizarry, at 11:37 EST ,
--- NOTE | 2022-02-08 10:58 | PCM.WC.PN ---
History of Present Illness Date of Service: 02/08/22 Chief Complaint: Bilateral lower extremity ulcer History of Wound: Mr. Brandt is a 76-year-old who presents to the wound center due to non healing bilateral lower extremity ulcerations. He states that it started out as significant bilateral lower extremity swelling on the 10 of September. He sat for 4 straight hours mowing his lawn. Woke up the next day with significant lower extremity swelling. Currently on Lasix which he states that he has been taking. Bought some compression stockings but could not use it because it was too tight. He is mostly sedentary. History of diabetes mellitus type 2, he reports good control. Does not have as much feeling in his lower extremities. He presented to the hospital almost a week ago due to worsening bilateral lower extremity pain, redness, chills and feeling of unwell. Managed for cellulitis. Discharged on antibiotics. Feels better today. Still a lot of drainage and lower extremity swelling. Progress of Wound: Worsening bilateral lower extremity ulceration predominantly his feet. Left with significant maceration and erythema. Has had 3M compression however, he sits all day in his chair. His son is visiting from [place] and states that his father pretty much sits all day with no elevation of his legs. He also states that he is also not so compliant with instructions. Objective Data Objective Data Vital Signs: Vital Signs Temp Pulse Resp BP 96.6 F L 73 20 H 128/29 H 02/08/22 08:26 02/08/22 08:26 02/08/22 08:26 02/08/22 08:26 Charges/Coding Procedures Integumentary [id number]: [id number] Jannie subq tissue 20 sq cm/< Add On Codes: 38339 Jannie subq tissue add-on (x 2. Additional square centimeters debrided, please refer to clinical note.) Physical Exam Const alert, oriented x3 and no apparent distress General Appearance: cooperative, comfortable and well developed Orientation / Consciousness: awake HEENT normocephalic, head/scalp atraumatic and hearing grossly normal bilaterally Eyes General Eye: normal appearance of both eyes Neck full ROM and supple General: normal visual inspection Resp normal respiratory effort Effort and Inspection: able to speak in complete sentences Extremity full ROM General Extremity: edema Skin Wounds: wounds noted Neuro oriented x3, CN's II-XII intact bilaterally, moves all extremities and no focal motor deficits Psych mental status grossly normal Appearance: grossly normal Attitude: calm Activity / Motor Behavior: appropriate eye contact Debridement Note Debridement Note Wound debrided: Right lower extremity (superior) Type of Debridement: Excisional debridement Anesthesia Used: 4% Lidocaine Solution Depth: Down to and including healthy tissue and in the subcutaneous layer Percentage of wound debrided: 100 Instrument Used: 3mm curette Tissue Removed: Slough and devitalized tissue Severity: Fat Layer Exposed Amount of bleeding with debridement: Mild Bleeding Controlled with: Pressure Patient tolerated procedure: Patient tolerated procedure well Post-Debridement Measurements and Additional Note: Post-Debridement Measurements/Treatment - Nurse 1 - General Ulcer Assessment Start: 02/01/22 08:00 Freq: Status: Active Protocol: CHAPARRITA Activity Type Activity Date Activity User E-sign Co-sign Detail Recorded Client Recorded Date Recorded By Document 02/01/22 08:00 DL [id number] 02/01/22 08:23 DL Document 02/08/22 08:26 [facility] [id number] 02/08/22 08:50 [facility] 02/01/22 02/08/22 08:00 08:26 - Today's Visit Information Type of service Follow-up Visit Follow-up Visit (Physician/FASHION ILLUSTRATOR (Physician/FASHION ILLUSTRATOR ) ) Arrival Mode Ambulatory, Ambulatory Walker Transfer Assistance None Patient Identification Verified (Name & Yes Yes ) Patient Requires Transmission-Based No No Precautions Vital Signs Temperature (97.8 F-99.1 F) 96.7 F L 96.6 F L Temperature Source Temporal Temporal Pulse Rate (60-100) 83 73 Pulse Location Monitor Monitor Respiratory Rate (12-18) 18 20 H Respiratory rate source Observation Blood Pressure (90/60-120/80) 99/54 L 128/29 H Blood Pressure Mean (mm Hg) 69 62 Source Monitor Monitor History Since Last Visit- (Skip if this is Patient's initial visit) Have you changed medications since your No No last visit? Any new allergies or adverse reactions No No Had a fall/change in ADL's that may No No increase risk of falls Signs or symptoms of abuse and/or No No neglect since last visit Have you been in the hospital since your No No last visit? Has dressing in place as prescribed Yes Yes Has compression in place as prescribed Yes Yes Has offloadiing in place as prescribed Yes N/A Experienced any changes in pain level or No No management Pain Scale: 0-10 Numeric Is Patient Pain Free? Yes Yes WC - Nurse 1 - General Ulcer Measurement Start: 02/01/22 08:00 Freq: Status: Active Protocol: Activity Type Activity Date Activity User E-sign Co-sign Detail Recorded Client Recorded Date Recorded By Document 02/01/22 08:00 DL [id number] 02/01/22 08:23 DL Document 02/08/22 08:26 BM [id number] 02/08/22 08:50 BMF 02/01/22 02/08/22 08:00 08:26 Wound Center Nurse 1 #10 R 2nd toe -Current Size (cm) - Length 0.8 0.9 -Current Size (cm) - Width 0.6 0.8 -Current Size (cm) - Depth 0.1 0.1 -Total Square Cm 0.48 0.72 -Photo Taken No No -Exudate Amt Small Medium -Exudate Type Serosanguineous Serosanguineous -Wound Margin Distinct, Distinct, Outline Outline Attached Attached -Granulation Amt Small (1-33%) None Present (0 %) -Granulation Quality Glenvar -Necrosis Amt Small (1-33%) Large (67-100%) -Necrotic Tissue Type Adherent Slough Adherent Slough -Structure Exposed N/A N/A -Texture (Ana-wound Skin Appearance) Scarring Scarring -Moisture (Ana-wound Skin Appearance) No Abnormality Weeping -Color (Ana-wound Skin Appearance) Hemosiderin Erythema, Staining Hemosiderin Staining -Temperature (Ana-wound Skin No Abnormality No Abnormality Appearance) (Pt Warm) (Pt Warm) -Tenderness on Palpation (Ana-wound Yes No Skin Appearance) -Ulcer Cleansing Soap and Water Soap and Water -Foul Odor after Cleansing Yes, Due to No Product Use -Anesthetic Used 4% Lidocaine 4% Lidocaine Solution Solution #9 L Lat Foot -Current Size (cm) - Length 1 0.9 -Current Size (cm) - Width 0.3 0.6 -Current Size (cm) - Depth 0.1 0.1 -Total Square Cm 0.3 0.54 -Photo Taken Yes No -Exudate Amt Small Medium -Exudate Type Serosanguineous Serosanguineous -Wound Margin Distinct, Distinct, Outline Outline Attached Attached -Granulation Amt Large (67-100%) None Present (0 %) -Granulation Quality Glenvar -Necrosis Amt Small (1-33%) Large (67-100%) -Necrotic Tissue Type Adherent Slough Adherent Slough -Structure Exposed N/A -Texture (Ana-wound Skin Appearance) Scarring Localized Edema ,Scarring -Moisture (Ana-wound Skin Appearance) No Abnormality Weeping -Color (Ana-wound Skin Appearance) Hemosiderin Erythema, Staining Hemosiderin Staining -Temperature (Ana-wound Skin No Abnormality No Abnormality Appearance) (Pt Warm) (Pt Warm) -Tenderness on Palpation (Ana-wound No No Skin Appearance) -Ulcer Cleansing Soap and Water Soap and Water -Foul Odor after Cleansing No No -Anesthetic Used 4% Lidocaine 4% Lidocaine Solution Solution #8 R LE Med -Current Size (cm) - Length 2.7 -Current Size (cm) - Width 1.6 -Current Size (cm) - Depth 0.1 -Total Square Cm 4.32 -Photo Taken Yes No -Exudate Amt Small Medium -Exudate Type Serosanguineous Serosanguineous -Wound Margin Distinct, Distinct, Outline Outline Attached Attached -Granulation Amt Medium (34-66%) None Present (0 %) -Granulation Quality Glenvar -Necrosis Amt Medium (34-66%) Large (67-100%) -Necrotic Tissue Type Adherent Slough Adherent Slough -Structure Exposed N/A N/A -Texture (Ana-wound Skin Appearance) Scarring Localized Edema ,Scarring -Moisture (Ana-wound Skin Appearance) Dry/Scaly Weeping -Color (Ana-wound Skin Appearance) Hemosiderin Erythema, Staining Hemosiderin Staining -Temperature (Ana-wound Skin No Abnormality No Abnormality Appearance) (Pt Warm) (Pt Warm) -Tenderness on Palpation (Ana-wound No Skin Appearance) -Ulcer Cleansing Soap and Water Soap and Water -Foul Odor after Cleansing No No -Anesthetic Used 4% Lidocaine 4% Lidocaine Solution Solution #7 R Inf. LE -Current Size (cm) - Length 2.7 5.8 -Current Size (cm) - Width 1.4 4 -Current Size (cm) - Depth 0.2 0.3 -Total Square Cm 3.78 23.2 -Photo Taken Yes No -Exudate Amt Medium Medium -Exudate Type Serosanguineous Serosanguineous -Wound Margin Distinct, Distinct, Outline Outline Attached Attached -Granulation Amt Medium (34-66%) None Present (0 %) -Granulation Quality Red -Necrosis Amt Medium (34-66%) Large (67-100%) -Necrotic Tissue Type Adherent Slough Adherent Slough -Structure Exposed N/A N/A -Texture (Ana-wound Skin Appearance) Scarring Localized Edema ,Scarring -Moisture (Ana-wound Skin Appearance) No Abnormality Weeping -Color (Ana-wound Skin Appearance) Hemosiderin Erythema, Staining Hemosiderin Staining -Temperature (Ana-wound Skin No Abnormality No Abnormality Appearance) (Pt Warm) (Pt Warm) -Tenderness on Palpation (Ana-wound No No Skin Appearance) -Ulcer Cleansing Soap and Water Soap and Water -Foul Odor after Cleansing No No -Anesthetic Used 4% Lidocaine 4% Lidocaine Solution Solution #6 R Sup LE -Current Size (cm) - Length 2.3 2.4 -Current Size (cm) - Width 0.8 0.7 -Current Size (cm) - Depth 0.2 0.2 -Total Square Cm 1.84 1.68 -Photo Taken Yes No -Exudate Amt Small Medium -Exudate Type Serosanguineous Serosanguineous -Wound Margin Distinct, Distinct, Outline Outline Attached Attached -Granulation Amt Medium (34-66%) None Present (0 %) -Granulation Quality Red -Necrosis Amt Medium (34-66%) Large (67-100%) -Necrotic Tissue Type Adherent Slough -Structure Exposed N/A N/A -Texture (Ana-wound Skin Appearance) Localized Edema Localized Edema ,Scarring ,Scarring -Moisture (Ana-wound Skin Appearance) Dry/Scaly Weeping -Color (Ana-wound Skin Appearance) Hemosiderin Erythema, Staining Hemosiderin Staining -Temperature (Ana-wound Skin No Abnormality No Abnormality Appearance) (Pt Warm) (Pt Warm) -Tenderness on Palpation (Ana-wound No No Skin Appearance) -Ulcer Cleansing Soap and Water Soap and Water -Foul Odor after Cleansing No No -Anesthetic Used 4% Lidocaine 4% Lidocaine Solution Solution #5 R Dorsal -Current Size (cm) - Length 1.4 1.6 -Current Size (cm) - Width 1.4 1.4 -Current Size (cm) - Depth 0.3 0.4 -Total Square Cm 1.96 2.24 -Photo Taken No No -Exudate Amt Medium Medium -Exudate Type Serosanguineous Serosanguineous -Wound Margin Distinct, Distinct, Outline Outline Attached Attached -Granulation Amt Small (1-33%) None Present (0 %) -Granulation Quality Glenvar -Necrosis Amt Large (67-100%) Large (67-100%) -Necrotic Tissue Type Adherent Slough Adherent Slough -Structure Exposed N/A N/A -Texture (Ana-wound Skin Appearance) Scarring Scarring,Rash -Moisture (Ana-wound Skin Appearance) Maceration Weeping -Color (Ana-wound Skin Appearance) Hemosiderin Erythema, Staining Hemosiderin Staining -Temperature (Ana-wound Skin No Abnormality No Abnormality Appearance) (Pt Warm) (Pt Warm) -Tenderness on Palpation (Ana-wound No Skin Appearance) -Ulcer Cleansing Soap and Water Soap and Water -Foul Odor after Cleansing No No -Anesthetic Used 4% Lidocaine 4% Lidocaine Solution Solution #4 L Med Cluster -Current Size (cm) - Length 11 9.5 -Current Size (cm) - Width 2.5 1 -Current Size (cm) - Depth 0.2 0.2 -Total Square Cm 27.5 9.5 -Photo Taken Yes No -Exudate Amt Small Medium -Exudate Type Serosanguineous Serosanguineous -Wound Margin Distinct, Distinct, Outline Outline Attached Attached -Granulation Amt Medium (34-66%) None Present (0 %) -Granulation Quality Red -Necrosis Amt Medium (34-66%) Large (67-100%) -Necrotic Tissue Type Adherent Slough Adherent Slough -Structure Exposed N/A N/A -Texture (Ana-wound Skin Appearance) Scarring Localized Edema ,Scarring -Moisture (Ana-wound Skin Appearance) Dry/Scaly Weeping -Color (Ana-wound Skin Appearance) Hemosiderin Erythema, Staining Hemosiderin Staining -Temperature (Ana-wound Skin No Abnormality No Abnormality Appearance) (Pt Warm) (Pt Warm) -Tenderness on Palpation (Ana-wound No Skin Appearance) -Ulcer Cleansing Soap and Water Soap and Water -Foul Odor after Cleansing No No -Anesthetic Used 4% Lidocaine 4% Lidocaine Solution Solution #3 L Lat heel -Current Size (cm) - Length 1 1.3 -Current Size (cm) - Width 0.3 1.1 -Current Size (cm) - Depth 0.2 0.2 -Total Square Cm 0.3 1.43 -Photo Taken Yes No -Exudate Amt None Present Medium -Exudate Type Serosanguineous Serosanguineous -Wound Margin Distinct, Distinct, Outline Outline Attached Attached -Granulation Amt Small (1-33%) None Present (0 %) -Granulation Quality Glenvar -Necrosis Amt None Present (0 Large (67-100%) %) -Necrotic Tissue Type Adherent Slough -Structure Exposed N/A N/A -Texture (Ana-wound Skin Appearance) Localized Edema Localized Edema ,Scarring ,Scarring -Moisture (Ana-wound Skin Appearance) Assessed Weeping -Color (Ana-wound Skin Appearance) No Abnormality Erythema, Hemosiderin Staining -Temperature (Ana-wound Skin No Abnormality No Abnormality Appearance) (Pt Warm) (Pt Warm) -Tenderness on Palpation (Ana-wound No Skin Appearance) -Ulcer Cleansing Soap and Water Soap and Water -Foul Odor after Cleansing No No -Anesthetic Used 4% Lidocaine 4% Lidocaine Solution Solution #2 L 3rd toe -Current Size (cm) - Length 1.5 1.3 -Current Size (cm) - Width 0.9 1.4 -Current Size (cm) - Depth 0.1 0.2 -Total Square Cm 1.35 1.82 -Photo Taken Yes No -Exudate Amt Medium Medium -Exudate Type Serosanguineous Serosanguineous -Wound Margin Distinct, Distinct, Outline Outline Attached Attached -Granulation Amt None Present (0 None Present (0 %) %) -Necrosis Amt Large (67-100%) Large (67-100%) -Necrotic Tissue Type Adherent Slough Adherent Slough -Structure Exposed N/A N/A -Texture (Ana-wound Skin Appearance) Localized Edema Localized Edema ,Scarring ,Scarring -Moisture (Ana-wound Skin Appearance) Maceration Weeping -Color (Ana-wound Skin Appearance) Hemosiderin Erythema, Staining Hemosiderin Staining -Temperature (Ana-wound Skin No Abnormality No Abnormality Appearance) (Pt Warm) (Pt Warm) -Tenderness on Palpation (Ana-wound No No Skin Appearance) -Ulcer Cleansing Soap and Water Soap and Water -Foul Odor after Cleansing No No -Anesthetic Used 4% Lidocaine 4% Lidocaine Solution Solution #1 L Hallux -Current Size (cm) - Length 2.5 2.3 -Current Size (cm) - Width 2.2 2.3 -Current Size (cm) - Depth 0.1 0.1 -Total Square Cm 5.50 5.29 -Photo Taken Yes No -Exudate Amt Medium Medium -Exudate Type Serosanguineous Serosanguineous -Wound Margin Distinct, Distinct, Outline Outline Attached Attached -Granulation Amt None Present (0 %) -Necrosis Amt Large (67-100%) -Necrotic Tissue Type Adherent Slough -Structure Exposed N/A -Texture (Ana-wound Skin Appearance) Localized Edema Localized Edema ,Scarring ,Scarring -Moisture (Ana-wound Skin Appearance) Dry/Scaly Weeping -Color (Ana-wound Skin Appearance) Erythema, Erythema, Hemosiderin Hemosiderin Staining Staining -Temperature (Ana-wound Skin No Abnormality No Abnormality Appearance) (Pt Warm) (Pt Warm) -Tenderness on Palpation (Ana-wound No No Skin Appearance) -Ulcer Cleansing Soap and Water Soap and Water -Foul Odor after Cleansing No No -Anesthetic Used 4% Lidocaine 4% Lidocaine Solution Solution Right Calf (cm) 32.4 32.4 Right Ankle (cm) 22.2 23 Left Calf (cm) 35.1 35.6 Left Ankle (cm) 25.2 24.7 WC - Nurse 2 - General Ulcer CM Notes Start: 02/01/22 08:00 Freq: Status: Active Protocol: Activity Type Activity Date Activity User E-sign Co-sign Detail Recorded Client Recorded Date Recorded By Document 02/01/22 08:31 MW [id number] 02/01/22 08:58 MW Document 02/08/22 09:06 MW [id number] 02/08/22 09:51 MW 02/01/22 02/08/22 08:31 09:06 Wound Center Nurse 2 #10 R 2nd toe -Time 08:32 09:27 -Correct Patient Yes Yes -Correct Side, Site, Position Yes Yes -Correct Procedure Yes Yes -Procedure Performed Yes Yes -Type of Procedure Debridement Debridement -Clinical Debridement Subcutaneous Subcutaneous -Tissue Removed Subcutaneous Subcutaneous -Post Debridement (cm) - Length 1.5 1.2 -Post Debridement (cm) - Width 0.9 1.2 -Post Debridement (cm) - Depth 0.1 0.1 -Total Square (Post) (cm) 1.35 1.44 -Area of Debridement (cm) - Length 1.5 1.2 -Area of Debridement (cm) - Width 0.9 1.2 -Total Square (Area) (cm) 1.35 1.44 -Tunneling No No -Undermining/Tunneling No No -Circular Undermining No No -Wound/Ulcer Outcome Not Healed Not Healed -Ulcer Cleansing Rinsed/ Rinsed/ Irrigated with Irrigated with Saline Saline -Foul Odor after Cleansing No No -Bioengineered Tissue No No -Bleeding Controlled with Pressure Pressure -Treatment Response Procedure Procedure Tolerated Well Tolerated Well -Offloading No No -Debridement - Subq, 1st 20sq cm Yes Yes -Debridement, SubQ, ea addt'l 20sq cm 1 2 or part thereof #9 L Lat Foot -Time 08:32 09:27 -Correct Patient Yes Yes -Correct Side, Site, Position Yes Yes -Correct Procedure Yes Yes -Procedure Performed Yes Yes -Type of Procedure Debridement Debridement -Clinical Debridement Subcutaneous Subcutaneous -Tissue Removed Subcutaneous Subcutaneous -Post Debridement (cm) - Length 1.0 1.0 -Post Debridement (cm) - Width 0.6 0.8 -Post Debridement (cm) - Depth 0.1 0.1 -Total Square (Post) (cm) 0.60 0.80 -Area of Debridement (cm) - Length 1.0 1.0 -Area of Debridement (cm) - Width 0.6 0.8 -Total Square (Area) (cm) 0.60 0.80 -Tunneling No No -Undermining/Tunneling No No -Circular Undermining No No -Wound/Ulcer Outcome Not Healed Not Healed -Ulcer Cleansing Rinsed/ Rinsed/ Irrigated with Irrigated with Saline Saline -Foul Odor after Cleansing No No -Bioengineered Tissue No No -Bleeding Controlled with Pressure Pressure -Treatment Response Procedure Procedure Tolerated Well Tolerated Well -Offloading No No -Debridement - Subq, 1st 20sq cm No No #8 R LE Med -Time 08:33 09:27 -Correct Patient Yes Yes -Correct Side, Site, Position Yes Yes -Correct Procedure Yes Yes -Procedure Performed Yes Yes -Type of Procedure Debridement Debridement -Clinical Debridement Subcutaneous Subcutaneous -Tissue Removed Subcutaneous Subcutaneous -Post Debridement (cm) - Length 3.2 3.4 -Post Debridement (cm) - Width 1.5 1.8 -Post Debridement (cm) - Depth 0.1 0.1 -Total Square (Post) (cm) 4.80 6.12 -Area of Debridement (cm) - Length 3.2 3.4 -Area of Debridement (cm) - Width 1.5 1.8 -Total Square (Area) (cm) 4.80 6.12 -Tunneling No No -Undermining/Tunneling No No -Circular Undermining No No -Wound/Ulcer Outcome Not Healed Not Healed -Ulcer Cleansing Rinsed/ Rinsed/ Irrigated with Irrigated with Saline Saline -Foul Odor after Cleansing No No -Bioengineered Tissue No No -Bleeding Controlled with Pressure Pressure -Treatment Response Procedure Procedure Tolerated Well Tolerated Well -Offloading No No -Debridement - Subq, 1st 20sq cm No No #7 R Inf. LE -Time 08:33 09:28 -Correct Patient Yes Yes -Correct Side, Site, Position Yes Yes -Correct Procedure Yes Yes -Procedure Performed Yes Yes -Type of Procedure Debridement Debridement -Clinical Debridement Subcutaneous Subcutaneous -Tissue Removed Subcutaneous Subcutaneous -Post Debridement (cm) - Length 3.0 3.0 -Post Debridement (cm) - Width 1.5 1.5 -Post Debridement (cm) - Depth 0.1 0.2 -Total Square (Post) (cm) 4.50 4.50 -Area of Debridement (cm) - Length 3.0 3.0 -Area of Debridement (cm) - Width 1.5 1.5 -Total Square (Area) (cm) 4.50 4.50 -Tunneling No No -Undermining/Tunneling No No -Circular Undermining No No -Wound/Ulcer Outcome Not Healed Not Healed -Ulcer Cleansing Rinsed/ Rinsed/ Irrigated with Irrigated with Saline Saline -Foul Odor after Cleansing No No -Bioengineered Tissue No No -Bleeding Controlled with Pressure Pressure -Treatment Response Procedure Procedure Tolerated Well Tolerated Well -Offloading No No -Debridement - Subq, 1st 20sq cm No No #6 R Sup LE -Time 08:34 09:28 -Correct Patient Yes Yes -Correct Side, Site, Position Yes Yes -Correct Procedure Yes Yes -Procedure Performed Yes Yes -Type of Procedure Debridement Debridement -Clinical Debridement Subcutaneous Subcutaneous -Tissue Removed Subcutaneous Subcutaneous -Post Debridement (cm) - Length 2.0 1.5 -Post Debridement (cm) - Width 0.6 0.4 -Post Debridement (cm) - Depth 0.1 0.1 -Total Square (Post) (cm) 1.20 0.60 -Area of Debridement (cm) - Length 2.0 1.5 -Area of Debridement (cm) - Width 0.6 0.4 -Total Square (Area) (cm) 1.20 0.60 -Tunneling No No -Undermining/Tunneling No No -Circular Undermining No No -Wound/Ulcer Outcome Not Healed Not Healed -Ulcer Cleansing Rinsed/ Rinsed/ Irrigated with Irrigated with Saline Saline -Foul Odor after Cleansing No No -Bioengineered Tissue No No -Bleeding Controlled with Pressure Pressure -Treatment Response Procedure Procedure Tolerated Well Tolerated Well -Offloading No No -Debridement - Subq, 1st 20sq cm No No #5 R Dorsal -Time 08: 09:28 -Correct Patient Yes Yes -Correct Side, Site, Position Yes Yes -Correct Procedure Yes Yes -Procedure Performed Yes Yes -Type of Procedure Debridement Debridement -Clinical Debridement Subcutaneous Subcutaneous -Tissue Removed Subcutaneous Subcutaneous -Post Debridement (cm) - Length 1.5 1.6 -Post Debridement (cm) - Width 1.4 1.4 -Post Debridement (cm) - Depth 0.3 0.3 -Total Square (Post) (cm) 2.10 2.24 -Area of Debridement (cm) - Length 1.5 1.6 -Area of Debridement (cm) - Width 1.4 1.4 -Total Square (Area) (cm) 2.10 2.24 -Tunneling No No -Undermining/Tunneling No No -Circular Undermining No No -Wound/Ulcer Outcome Not Healed Not Healed -Ulcer Cleansing Rinsed/ Rinsed/ Irrigated with Irrigated with Saline Saline -Foul Odor after Cleansing No No -Bioengineered Tissue No No -Bleeding Controlled with Pressure Pressure -Treatment Response Procedure Procedure Tolerated Well Tolerated Well -Offloading No No -Debridement - Subq, 1st 20sq cm No No #4 L Med Cluster -Time 08: 09:28 -Correct Patient Yes Yes -Correct Side, Site, Position Yes Yes -Correct Procedure Yes Yes -Procedure Performed Yes Yes -Type of Procedure Debridement Debridement -Clinical Debridement Subcutaneous Subcutaneous -Tissue Removed Subcutaneous Subcutaneous -Post Debridement (cm) - Length 10.4 10.3 -Post Debridement (cm) - Width 1.0 1.0 -Post Debridement (cm) - Depth 0.1 0.1 -Total Square (Post) (cm) 10.40 10.30 -Area of Debridement (cm) - Length 10.4 10.3 -Area of Debridement (cm) - Width 1.0 1.0 -Total Square (Area) (cm) 10.40 10.30 -Tunneling No No -Undermining/Tunneling No No -Circular Undermining No No -Wound/Ulcer Outcome Not Healed Not Healed -Ulcer Cleansing Rinsed/ Rinsed/ Irrigated with Irrigated with Saline Saline -Foul Odor after Cleansing No No -Bioengineered Tissue No No -Bleeding Controlled with Pressure Pressure -Treatment Response Procedure Procedure Tolerated Well Tolerated Well -Offloading No No -Debridement - Subq, 1st 20sq cm No No #3 L Lat heel -Time 08:35 09:28 -Correct Patient Yes Yes -Correct Side, Site, Position Yes Yes -Correct Procedure Yes Yes -Procedure Performed Yes Yes -Type of Procedure Debridement Debridement -Clinical Debridement Subcutaneous Subcutaneous -Tissue Removed Subcutaneous Subcutaneous -Post Debridement (cm) - Length 1.0 1.5 -Post Debridement (cm) - Width 0.7 1.2 -Post Debridement (cm) - Depth 0.1 0.1 -Total Square (Post) (cm) 0.70 1.80 -Area of Debridement (cm) - Length 1.0 1.5 -Area of Debridement (cm) - Width 0.7 1.2 -Total Square (Area) (cm) 0.70 1.80 -Tunneling No No -Undermining/Tunneling No No -Circular Undermining No No -Wound/Ulcer Outcome Not Healed Not Healed -Ulcer Cleansing Rinsed/ Rinsed/ Irrigated with Irrigated with Saline Saline -Foul Odor after Cleansing No No -Bioengineered Tissue No No -Bleeding Controlled with Pressure Pressure -Treatment Response Procedure Procedure Tolerated Well Tolerated Well -Offloading No No -Debridement - Subq, 1st 20sq cm No No #2 L 3rd toe -Time 08:35 09:28 -Correct Patient Yes Yes -Correct Side, Site, Position Yes Yes -Correct Procedure Yes Yes -Procedure Performed Yes Yes -Type of Procedure Debridement Debridement -Clinical Debridement Subcutaneous Subcutaneous -Tissue Removed Subcutaneous Subcutaneous -Post Debridement (cm) - Length 1.5 4.0 -Post Debridement (cm) - Width 0.6 3.0 -Post Debridement (cm) - Depth 0.1 0.1 -Total Square (Post) (cm) 0.90 12.00 -Area of Debridement (cm) - Length 1.5 4.0 -Area of Debridement (cm) - Width 0.6 3.0 -Total Square (Area) (cm) 0.90 12.00 -Tunneling No No -Undermining/Tunneling No No -Circular Undermining No No -Wound/Ulcer Outcome Not Healed Not Healed -Ulcer Cleansing Rinsed/ Rinsed/ Irrigated with Irrigated with Saline Saline -Foul Odor after Cleansing No No -Bioengineered Tissue No No -Bleeding Controlled with Pressure Pressure -Treatment Response Procedure Procedure Tolerated Well Tolerated Well -Offloading No No -Debridement - Subq, 1st 20sq cm No No #1 L Hallux -Time 08:36 09:29 -Correct Patient Yes Yes -Correct Side, Site, Position Yes Yes -Correct Procedure Yes Yes -Procedure Performed Yes Yes -Type of Procedure Debridement Debridement -Clinical Debridement Subcutaneous Subcutaneous -Tissue Removed Subcutaneous Subcutaneous -Post Debridement (cm) - Length 2.5 3.0 -Post Debridement (cm) - Width 2.4 3.0 -Post Debridement (cm) - Depth 0.1 0.1 -Total Square (Post) (cm) 6.00 9.00 -Area of Debridement (cm) - Length 2.5 3.0 -Area of Debridement (cm) - Width 2.4 3.0 -Total Square (Area) (cm) 6.00 9.00 -Tunneling No No -Undermining/Tunneling No No -Circular Undermining No No -Wound/Ulcer Outcome Not Healed Not Healed -Ulcer Cleansing Rinsed/ Rinsed/ Irrigated with Irrigated with Saline Saline -Foul Odor after Cleansing No No -Bioengineered Tissue No No -Bleeding Controlled with Pressure Pressure -Treatment Response Procedure Procedure Tolerated Well Tolerated Well -Offloading No No -Debridement - Subq, 1st 20sq cm No No Pain Scale: 0-10 Numeric Is Patient Pain Free? Yes Yes WC - Nurse 3 - General Ulcer D/C NN Start: 02/01/22 08:00 Freq: Status: Active Protocol: Activity Type Activity Date Activity User E-sign Co-sign Detail Recorded Client Recorded Date Recorded By Document 02/01/22 09:10 [facility] [id number] 02/01/22 09:18 BM Document 02/08/22 10:01 DL [id number] 02/08/22 10:13 DL 02/01/22 02/08/22 09:10 10:01 Wound Care Nurse 3 #10 R 2nd toe -Ulcer Cleansing Rinsed/ Soap and Water Irrigated with Saline -Foul Odor after Cleansing No No -Primary Dressing Applied Aquacel Extra Aquacel Extra, Optilok 6.5x10 -Other Dressing DRSG PER VT RN -Primary Dressing Covered/Secured with Dry Gauze Dry Gauze & Roll Gauze, Secured with Tape -Other Covering ABD -Aquacel Extra 3 3 -Optilok 6.5x10 1 #9 L Lat Foot -Ulcer Cleansing Rinsed/ Soap and Water Irrigated with Saline -Foul Odor after Cleansing No No -Primary Dressing Applied Aquacel Extra Optilok 6.5x10 -Other Dressing ABD aquacel ex -Primary Dressing Covered/Secured with Dry Gauze Dry Gauze & Roll Gauze, Secured with Tape -Other Covering PER MT RN mathew -Aquacel Extra 0 -Optilok 6.5x10 1 #8 R LE Med -Ulcer Cleansing Rinsed/ Soap and Water Irrigated with Saline -Foul Odor after Cleansing No No -Primary Dressing Applied Aquacel Extra -Other Dressing DRSG PER VT RN aquacel exsuperabsorber -Primary Dressing Covered/Secured with Dry Gauze & Roll Gauze, Secured with Tape -Other Covering ABD mathew -Aquacel Extra 0 #7 R Inf. LE -Ulcer Cleansing Rinsed/ Soap and Water Irrigated with Saline -Foul Odor after Cleansing No No -Primary Dressing Applied Aquacel Extra -Other Dressing ABD, DRSG PER aquacel ex/ MT RN superabsorber -Primary Dressing Covered/Secured with Dry Gauze & Roll Gauze, Secured with Tape -Other Covering mathew -Aquacel Extra 0 #6 R Sup LE -Ulcer Cleansing Rinsed/ Soap and Water Irrigated with Saline -Foul Odor after Cleansing No No -Primary Dressing Applied Aquacel Extra -Other Dressing DRSG PER VT RN aquacel ex/ super abosrber -Primary Dressing Covered/Secured with Dry Gauze & Roll Gauze, Secured with Tape -Other Covering ABD, mathew -Aquacel Extra 0 #5 R Dorsal -Ulcer Cleansing Rinsed/ Soap and Water Irrigated with Saline -Foul Odor after Cleansing No No -Primary Dressing Applied Aquacel Extra -Other Dressing ABD aquacel ex/ supber absorber -Primary Dressing Covered/Secured with Dry Gauze & Roll Gauze, Secured with Tape -Other Covering DRSG PER [facility] mathew -Aquacel Extra 0 #4 L Med Cluster -Ulcer Cleansing Rinsed/ Soap and Water Irrigated with Saline -Foul Odor after Cleansing No No -Primary Dressing Applied Aquacel Extra -Other Dressing DRSG PER [facility] aquacel Ex / super absorber -Primary Dressing Covered/Secured with Dry Gauze & Roll Gauze, Secured with Tape -Other Covering ABD mathew -Aquacel Extra 0 #3 L Lat heel -Ulcer Cleansing Rinsed/ Soap and Water Irrigated with Saline -Foul Odor after Cleansing No No -Primary Dressing Applied Aquacel Extra -Other Dressing HEEL HAT, DRSG aquacel ex/ PER [place] RN super absorber -Primary Dressing Covered/Secured with Dry Gauze & Roll Gauze -Other Covering mathew -Aquacel Extra 0 #2 L 3rd toe -Ulcer Cleansing Rinsed/ Soap and Water Irrigated with Saline -Foul Odor after Cleansing No No -Primary Dressing Applied Aquacel Extra -Other Dressing DRSG PER [facility] aquacel Ex/ superabsorber -Primary Dressing Covered/Secured with Dry Gauze, Dry Gauze & Secured with Roll Gauze, Tape Secured with Tape -Other Covering mathew -Aquacel Extra 0 #1 L Hallux -Ulcer Cleansing Rinsed/ Soap and Water Irrigated with Saline -Foul Odor after Cleansing No No -Other Dressing SANTYL, DIDIER aquacel Ex/ PER [place] RN superabsorber -Primary Dressing Covered/Secured with Dry Gauze & Dry Gauze & Roll Gauze, Roll Gauze, Secured with Secured with Tape Tape -Other Covering mathew BLE -Multi-Layered Wrap Application Multi-Layer Comp - Bilat ($ ) Treatment Response Procedure Procedure Tolerated Well Tolerated Well Pain Scale: 0-10 Numeric Is Patient Pain Free? Yes Yes WC - Visit Discharge Discharge Condition Stable Stable Ambulatory Status Ambulatory Ambulatory Transportation Private Auto Private Auto Accompanied by son Additional Wound Wound debrided: Right lower extremity (juarez) Type of Debridement: Excisional debridement Anesthesia Used: 4% Lidocaine Solution Depth: Down to and including healthy tissue and in the subcutaneous layer Percentage of wound debrided: 100 Instrument Used: 5mm curette Tissue Removed: Slough and devitalized tissue Severity: Fat Layer Exposed Amount of bleeding with debridement: Mild Bleeding Controlled with: Pressure Patient tolerated procedure: Patient tolerated procedure well Additional Wound Wound debrided: Right lower extremity (medial) Type of Debridement: Excisional debridement Anesthesia Used: 4% Lidocaine Solution Depth: Down to and including healthy tissue and in the subcutaneous layer Percentage of wound debrided: 100 Instrument Used: 5mm curette Tissue Removed: Slough and devitalized tissue Severity: Fat Layer Exposed Amount of bleeding with debridement: Mild Bleeding Controlled with: Pressure Patient tolerated procedure: Patient tolerated procedure well Additional Wound Wound debrided: Right dorsal foot Type of Debridement: Excisional debridement Anesthesia Used: 4% Lidocaine Solution Depth: Down to and including healthy tissue and in the subcutaneous layer Percentage of wound debrided: 100 Instrument Used: 5mm curette Tissue Removed: Slough and devitalized tissue Severity: Fat Layer Exposed Amount of bleeding with debridement: Mild Bleeding Controlled with: Pressure Patient tolerated procedure: Patient tolerated procedure well Additional Wound Wound debrided: Right second toe Type of Debridement: Excisional debridement Anesthesia Used: 4% Lidocaine Solution Depth: Down to and including healthy tissue Percentage of wound debrided: 100 Instrument Used: 3mm curette Tissue Removed: Slough and devitalized tissue Severity: Fat Layer Exposed Amount of bleeding with debridement: Mild Bleeding Controlled with: Pressure Patient tolerated procedure: Patient tolerated procedure well Additional Wound Wound debrided: Left medial cluster Type of Debridement: Excisional debridement Anesthesia Used: 4% Lidocaine Solution Depth: Down to and including healthy tissue and in the subcutaneous layer Percentage of wound debrided: 100 Instrument Used: 5mm curette Tissue Removed: Slough and devitalized tissue Severity: Fat Layer Exposed Amount of bleeding with debridement: Mild Bleeding Controlled with: Pressure Patient tolerated procedure: Patient tolerated procedure well Additional Wound Wound debrided: Left great toe Type of Debridement: Excisional debridement Anesthesia Used: 4% Lidocaine Solution Depth: Down to and including healthy tissue Percentage of wound debrided: 100 Instrument Used: 5mm curette Tissue Removed: Slough and devitalized tissue Severity: Fat Layer Exposed Amount of bleeding with debridement: Mild Bleeding Controlled with: Pressure Patient tolerated procedure: Patient tolerated procedure well Additional Wound Wound debrided: Left third toe cluster Type of Debridement: Excisional debridement Anesthesia Used: 4% Lidocaine Solution Depth: Down to and including healthy tissue and in the subcutaneous layer Percentage of wound debrided: 100 Instrument Used: 5mm curette Tissue Removed: Slough and devitalized tissue Severity: Fat Layer Exposed Amount of bleeding with debridement: Mild Bleeding Controlled with: Pressure Patient tolerated procedure: Patient tolerated procedure well Additional Wound Wound debrided: Left heel Type of Debridement: Excisional debridement Anesthesia Used: 4% Lidocaine Solution Depth: Down to and including healthy tissue and in the subcutaneous layer Percentage of wound debrided: 100 Instrument Used: 3mm curette Tissue Removed: Slough and devitalized tissue Severity: Fat Layer Exposed Amount of bleeding with debridement: Mild Bleeding Controlled with: Pressure Patient tolerated procedure: Patient tolerated procedure well Assessment/Plan Assessment/Plan (1) Ulcer of left lower extremity with fat layer exposed: CODE(S): L97.922 - Non-pressure chronic ulcer of unspecified part of left lower leg with fat layer exposed (2) Ulcer of right lower extremity with fat layer exposed: CODE(S): L97.912 - Non-pressure chronic ulcer of unspecified part of right lower leg with fat layer exposed (3) Bilateral lower extremity edema: CODE(S): R60.0 - Localized edema (4) Type 2 diabetes mellitus: CODE(S): E11.9 - Type 2 diabetes mellitus without complications (5) Cellulitis of leg: CODE(S): L03.119 - Cellulitis of unspecified part of limb (6) [facility] current use of 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: CODE(S): Z79.01 - [facility] (current) use of 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s (7) Ulcer of right foot with fat layer exposed: CODE(S): L97.512 - Non-pressure chronic ulcer of other part of right foot with fat layer exposed (8) Skin ulcer of left great toe with fat layer exposed: CODE(S): L97.522 - Non-pressure chronic ulcer of other part of left foot with fat layer exposed (9) Chronic 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 Left lateral foot also debrided, procedure was well-tolerated. Slough and devitalized tissue debrided to the subcutaneous level. Minimal bleeding controlled with pressure. Other debridement as documented above, procedure was well-tolerated. Patient is not compliant. Patient and his son state that he sits all day with his legs hanging down which possibly explains significant bilateral foot maceration. Repeat x-ray ordered due to maceration and worsening erythema/ulceration. X-ray reviewed, no concerns for osteomyelitis at this time. Currently on Augmentin. Still has significant maceration of his left toes/foot. Discontinue 3M wraps. Continue Aquacel and change daily to twice daily depending on drainage. Continue Santyl to left great toe. Double layer Tubigrip and Mathew wrap for edema management. Again, leg elevation and exercise as tolerated recommended for edema management. I am not convinced the patient will be compliant with instructions. His son states that he never is. Patient has declined vascular studies due to worsening left great toe ulceration. He also is not open to longterm placement for proper wound care, he states that if he goes to the longterm he would . He however is open to home health, referral placed. Increase protein intake, vitamin C and zinc discussed. Optimal diabetes control discussed. Their questions were answered and they were advised to call with any further questions or concerns. Follow-up in 1 week or sooner if needed. This note was generated with [employer] dictation software. It may contain incorrect words, spelling, and punctuation that were not noted in checking the note before signing.
[2022-02-15 08:08] VITALS: BP 115/76; PULSE 91; RESP 18; TEMP 35.9
--- NOTE | 2022-02-15 10:34 | PCM.WC.PN ---
History of Present Illness Date of Service: 02/15/22 Chief Complaint: Bilateral lower extremity ulcer History of Wound: Mr. Brandt is a 76-year-old who presents to the wound center due to non healing bilateral lower extremity ulcerations. He states that it started out as significant bilateral lower extremity swelling on the 10 of September. He sat for 4 straight hours mowing his lawn. Woke up the next day with significant lower extremity swelling. Currently on Lasix which he states that he has been taking. Bought some compression stockings but could not use it because it was too tight. He is mostly sedentary. History of diabetes mellitus type 2, he reports good control. Does not have as much feeling in his lower extremities. He presented to the hospital almost a week ago due to worsening bilateral lower extremity pain, redness, chills and feeling of unwell. Managed for cellulitis. Discharged on antibiotics. Feels better today. Still a lot of drainage and lower extremity swelling. Progress of Wound: He was switched to daily dressing last week due to maceration thought to be due to 3M wraps been in place for too long however, now presents with significant worsening bilateral lower extremity edema. Left great toe continues to show worsening. Denies pain, chills, fever or feeling of unwell. Has had 2 x-rays which were not suggestive of osteomyelitis or bone erosion. He has declined vascular studies. Objective Data Objective Data Vital Signs: Vital Signs Temp Pulse Resp BP 96.6 F L 91 18 115/76 02/15/22 08:08 02/15/22 08:08 02/15/22 08:08 02/15/22 08:08 Charges/Coding Procedures Integumentary [id number]: [id number] Jannie subq tissue 20 sq cm/< Add On Codes: 11813 Jannie subq tissue add-on Physical Exam Const alert, oriented x3 and no apparent distress General Appearance: cooperative, comfortable and well developed Orientation / Consciousness: awake HEENT normocephalic, head/scalp atraumatic and hearing grossly normal bilaterally Eyes General Eye: normal appearance of both eyes Neck full ROM and supple General: normal visual inspection Resp normal respiratory effort Effort and Inspection: able to speak in complete sentences Extremity full ROM General Extremity: edema Skin Wounds: wounds noted Neuro oriented x3, CN's II-XII intact bilaterally, moves all extremities and no focal motor deficits Psych mental status grossly normal Appearance: grossly normal Attitude: calm Activity / Motor Behavior: appropriate eye contact Debridement Note Debridement Note Wound debrided: Right lower extremity (superior) Type of Debridement: Excisional debridement Anesthesia Used: 4% Lidocaine Solution Depth: Down to and including healthy tissue and in the subcutaneous layer Percentage of wound debrided: 100 Instrument Used: 5mm curette Tissue Removed: Slough and devitalized tissue Severity: Fat Layer Exposed Amount of bleeding with debridement: Mild Bleeding Controlled with: Pressure Patient tolerated procedure: Patient tolerated procedure well Post-Debridement Measurements and Additional Note: Post-Debridement Measurements/Treatment - Nurse 1 - General Ulcer Assessment Start: 02/01/22 08:00 Freq: Status: Active Protocol: [facility]ARRITA Activity Type Activity Date Activity User E-sign Co-sign Detail Recorded Client Recorded Date Recorded By Document 02/01/22 08:00 DL [id number] 02/01/22 08:23 DL Document 02/08/22 08:26 [facility] [id number] 02/08/22 08:50 BMF Document 02/15/22 08:08 DL [id number] 02/15/22 08:22 DL 02/01/22 02/08/22 02/15/22 08:00 08:26 08:08 - Today's Visit Information Type of service Follow-up Visit Follow-up Visit Follow-up Visit (Physician/SCHOOL LUNCH MANAGER (Physician/SCHOOL LUNCH MANAGER (Physician/SCHOOL LUNCH MANAGER ) ) ) Arrival Mode Ambulatory, Ambulatory Ambulatory Walker Transfer Assistance None None Patient Identification Verified (Name & Yes Yes Yes ) Patient Requires Transmission-Based No No No Precautions Finger Stick Blood Sugar(mg/dl) (if 127 indicated): Blood Sugar Stated by Patient Vital Signs Temperature (97.8 F-99.1 F) 96.7 F L 96.6 F L 96.6 F L Temperature Source Temporal Temporal Temporal Pulse Rate (60-100) 83 73 91 Pulse Location Monitor Monitor Monitor Respiratory Rate (12-18) 18 20 H 18 Respiratory rate source Observation Observation Blood Pressure (90/60-120/80) 99/54 L 128/29 H 115/76 Blood Pressure Mean (mm Hg) 69 62 89 Source Monitor Monitor Monitor History Since Last Visit- (Skip if this is Patient's initial visit) Have you changed medications since your No No No last visit? Any new allergies or adverse reactions No No No Had a fall/change in ADL's that may No No No increase risk of falls Signs or symptoms of abuse and/or No No No neglect since last visit Have you been in the hospital since your No No No last visit? Has dressing in place as prescribed Yes Yes Yes Has compression in place as prescribed Yes Yes Yes Has offloadiing in place as prescribed Yes N/A Experienced any changes in pain level or No No No management Left Footwear Removable Cast Walker/Walking Boot Right Footwear Surgical Shoe with pressure relief insole Pain Scale: 0-10 Numeric Is Patient Pain Free? Yes Yes Yes WC - Nurse 1 - General Ulcer Measurement Start: 02/01/22 08:00 Freq: Status: Active Protocol: Activity Type Activity Date Activity User E-sign Co-sign Detail Recorded Client Recorded Date Recorded By Document 02/01/22 08:00 DL [id number] 02/01/22 08:23 DL Document 02/08/22 08:26 [facility] [id number] 02/08/22 08:50 BMF Document 02/15/22 08:08 DL [id number] 02/15/22 08:22 DL 02/01/22 02/08/22 02/15/22 08:00 08:26 08:08 Wound Center Nurse 1 #10 R 2nd toe -Current Size (cm) - Length 0.8 0.9 0.1 -Current Size (cm) - Width 0.6 0.8 0.1 -Current Size (cm) - Depth 0.1 0.1 0.1 -Total Square Cm 0.48 0.72 0.01 -Photo Taken No No No -Exudate Amt Small Medium Medium -Exudate Type Serosanguineous Serosanguineous Serosanguineous -Wound Margin Distinct, Distinct, Distinct, Outline Outline Outline Attached Attached Attached -Granulation Amt Small (1-33%) None Present (0 None Present (0 %) %) -Granulation Quality [place] -Necrosis Amt Small (1-33%) Large (67-100%) Large (67-100%) -Necrotic Tissue Type Adherent Slough Adherent Slough Adherent Slough -Structure Exposed N/A N/A N/A -Texture (Ana-wound Skin Appearance) Scarring Scarring Scarring -Moisture (Ana-wound Skin Appearance) No Abnormality Weeping Weeping -Color (Ana-wound Skin Appearance) Hemosiderin Erythema, Hemosiderin Staining Hemosiderin Staining Staining -Temperature (Ana-wound Skin No Abnormality No Abnormality No Abnormality Appearance) (Pt Warm) (Pt Warm) (Pt Warm) -Tenderness on Palpation (Ana-wound Yes No No Skin Appearance) -Ulcer Cleansing Soap and Water Soap and Water Soap and Water -Foul Odor after Cleansing Yes, Due to No No Product Use -Anesthetic Used 4% Lidocaine 4% Lidocaine 5% Lidocaine Solution Solution Gel #9 L Lat Foot -Current Size (cm) - Length 1 0.9 0.1 -Current Size (cm) - Width 0.3 0.6 0.1 -Current Size (cm) - Depth 0.1 0.1 0.1 -Total Square Cm 0.3 0.54 0.01 -Photo Taken Yes No No -Exudate Amt Small Medium Medium -Exudate Type Serosanguineous Serosanguineous Serosanguineous -Wound Margin Distinct, Distinct, Distinct, Outline Outline Outline Attached Attached Attached -Granulation Amt Large (67-100%) None Present (0 None Present (0 %) %) -Granulation Quality [place] -Necrosis Amt Small (1-33%) Large (67-100%) Large (67-100%) -Necrotic Tissue Type Adherent Slough Adherent Slough -Structure Exposed N/A Tendon,N/A -Texture (Ana-wound Skin Appearance) Scarring Localized Edema Scarring ,Scarring -Moisture (Ana-wound Skin Appearance) No Abnormality Weeping Weeping -Color (Ana-wound Skin Appearance) Hemosiderin Erythema, Hemosiderin Staining Hemosiderin Staining Staining -Temperature (Ana-wound Skin No Abnormality No Abnormality No Abnormality Appearance) (Pt Warm) (Pt Warm) (Pt Warm) -Tenderness on Palpation (Ana-wound No No No Skin Appearance) -Ulcer Cleansing Soap and Water Soap and Water Soap and Water -Foul Odor after Cleansing No No No -Anesthetic Used 4% Lidocaine 4% Lidocaine 5% Lidocaine Solution Solution Gel #8 R LE Med -Current Size (cm) - Length 2.7 0.1 -Current Size (cm) - Width 1.6 0.1 -Current Size (cm) - Depth 0.1 0.1 -Total Square Cm 4.32 0.01 -Photo Taken Yes No No -Exudate Amt Small Medium Medium -Exudate Type Serosanguineous Serosanguineous Serosanguineous -Wound Margin Distinct, Distinct, Distinct, Outline Outline Outline Attached Attached Attached -Granulation Amt Medium (34-66%) None Present (0 None Present (0 %) %) -Granulation Quality [place] -Necrosis Amt Medium (34-66%) Large (67-100%) Large (67-100%) -Necrotic Tissue Type Adherent Slough Adherent Slough Adherent Slough -Structure Exposed N/A N/A N/A -Texture (Ana-wound Skin Appearance) Scarring Localized Edema Scarring ,Scarring -Moisture (Ana-wound Skin Appearance) Dry/Scaly Weeping Weeping -Color (Ana-wound Skin Appearance) Hemosiderin Erythema, Hemosiderin Staining Hemosiderin Staining Staining -Temperature (Ana-wound Skin No Abnormality No Abnormality No Abnormality Appearance) (Pt Warm) (Pt Warm) (Pt Warm) -Tenderness on Palpation (Ana-wound No No Skin Appearance) -Ulcer Cleansing Soap and Water Soap and Water Soap and Water -Foul Odor after Cleansing No No No -Anesthetic Used 4% Lidocaine 4% Lidocaine 4% Lidocaine Solution Solution Solution #7 R Inf. LE -Current Size (cm) - Length 2.7 5.8 0.1 -Current Size (cm) - Width 1.4 4 0.1 -Current Size (cm) - Depth 0.2 0.3 0.1 -Total Square Cm 3.78 23.2 0.01 -Photo Taken Yes No No -Exudate Amt Medium Medium Medium -Exudate Type Serosanguineous Serosanguineous Serosanguineous -Wound Margin Distinct, Distinct, Distinct, Outline Outline Outline Attached Attached Attached -Granulation Amt Medium (34-66%) None Present (0 None Present (0 %) %) -Granulation Quality Red -Necrosis Amt Medium (34-66%) Large (67-100%) Large (67-100%) -Necrotic Tissue Type Adherent Slough Adherent Slough Adherent Slough -Structure Exposed N/A N/A N/A -Texture (Ana-wound Skin Appearance) Scarring Localized Edema Scarring ,Scarring -Moisture (Ana-wound Skin Appearance) No Abnormality Weeping Weeping -Color (Ana-wound Skin Appearance) Hemosiderin Erythema, Hemosiderin Staining Hemosiderin Staining Staining -Temperature (Ana-wound Skin No Abnormality No Abnormality No Abnormality Appearance) (Pt Warm) (Pt Warm) (Pt Warm) -Tenderness on Palpation (Ana-wound No No Skin Appearance) -Ulcer Cleansing Soap and Water Soap and Water Soap and Water -Foul Odor after Cleansing No No No -Anesthetic Used 4% Lidocaine 4% Lidocaine 4% Lidocaine Solution Solution Solution #6 R Sup LE -Current Size (cm) - Length 2.3 2.4 0.1 -Current Size (cm) - Width 0.8 0.7 0.1 -Current Size (cm) - Depth 0.2 0.2 0.1 -Total Square Cm 1.84 1.68 0.01 -Photo Taken Yes No No -Exudate Amt Small Medium Medium -Exudate Type Serosanguineous Serosanguineous Serosanguineous -Wound Margin Distinct, Distinct, Distinct, Outline Outline Outline Attached Attached Attached -Granulation Amt Medium (34-66%) None Present (0 None Present (0 %) %) -Granulation Quality Red -Necrosis Amt Medium (34-66%) Large (67-100%) Large (67-100%) -Necrotic Tissue Type Adherent Slough Adherent Slough -Structure Exposed N/A N/A N/A -Texture (Ana-wound Skin Appearance) Localized Edema Localized Edema Scarring ,Scarring ,Scarring -Moisture (Ana-wound Skin Appearance) Dry/Scaly Weeping Weeping -Color (Ana-wound Skin Appearance) Hemosiderin Erythema, Hemosiderin Staining Hemosiderin Staining Staining -Temperature (Ana-wound Skin No Abnormality No Abnormality No Abnormality Appearance) (Pt Warm) (Pt Warm) (Pt Warm) -Tenderness on Palpation (Ana-wound No No Skin Appearance) -Ulcer Cleansing Soap and Water Soap and Water Not Cleansed -Foul Odor after Cleansing No No No -Anesthetic Used 4% Lidocaine 4% Lidocaine 4% Lidocaine Solution Solution Solution #5 R Dorsal -Current Size (cm) - Length 1.4 1.6 0.1 -Current Size (cm) - Width 1.4 1.4 0.1 -Current Size (cm) - Depth 0.3 0.4 0.1 -Total Square Cm 1.96 2.24 0.01 -Photo Taken No No No -Exudate Amt Medium Medium Medium -Exudate Type Serosanguineous Serosanguineous Serosanguineous -Wound Margin Distinct, Distinct, Distinct, Outline Outline Outline Attached Attached Attached -Granulation Amt Small (1-33%) None Present (0 None Present (0 %) %) -Granulation Quality [place] -Necrosis Amt Large (67-100%) Large (67-100%) Large (67-100%) -Necrotic Tissue Type Adherent Slough Adherent Slough Eschar -Structure Exposed N/A N/A -Texture (Ana-wound Skin Appearance) Scarring Scarring,Rash Scarring -Moisture (Ana-wound Skin Appearance) Maceration Weeping Weeping -Color (Ana-wound Skin Appearance) Hemosiderin Erythema, Hemosiderin Staining Hemosiderin Staining Staining -Temperature (Ana-wound Skin No Abnormality No Abnormality Appearance) (Pt Warm) (Pt Warm) -Tenderness on Palpation (Ana-wound No Yes Skin Appearance) -Ulcer Cleansing Soap and Water Soap and Water Soap and Water -Foul Odor after Cleansing No No No -Anesthetic Used 4% Lidocaine 4% Lidocaine 4% Lidocaine Solution Solution Solution #4 L Med Cluster -Current Size (cm) - Length 11 9.5 0.1 -Current Size (cm) - Width 2.5 1 0.1 -Current Size (cm) - Depth 0.2 0.2 0.1 -Total Square Cm 27.5 9.5 0.01 -Photo Taken Yes No No -Exudate Amt Small Medium Medium -Exudate Type Serosanguineous Serosanguineous Serosanguineous -Wound Margin Distinct, Distinct, Distinct, Outline Outline Outline Attached Attached Attached -Granulation Amt Medium (34-66%) None Present (0 None Present (0 %) %) -Granulation Quality Red -Necrosis Amt Medium (34-66%) Large (67-100%) Large (67-100%) -Necrotic Tissue Type Adherent Slough Adherent Slough Adherent Slough -Structure Exposed N/A N/A N/A -Texture (Ana-wound Skin Appearance) Scarring Localized Edema Scarring ,Scarring -Moisture (Ana-wound Skin Appearance) Dry/Scaly Weeping Weeping -Color (Ana-wound Skin Appearance) Hemosiderin Erythema, Hemosiderin Staining Hemosiderin Staining Staining -Temperature (Ana-wound Skin No Abnormality No Abnormality Appearance) (Pt Warm) (Pt Warm) -Tenderness on Palpation (Ana-wound No Skin Appearance) -Ulcer Cleansing Soap and Water Soap and Water Soap and Water -Foul Odor after Cleansing No No No -Anesthetic Used 4% Lidocaine 4% Lidocaine 4% Lidocaine Solution Solution Solution #3 L Lat heel -Current Size (cm) - Length 1 1.3 0.1 -Current Size (cm) - Width 0.3 1.1 0.1 -Current Size (cm) - Depth 0.2 0.2 0.1 -Total Square Cm 0.3 1.43 0.01 -Photo Taken Yes No No -Exudate Amt None Present Medium Medium -Exudate Type Serosanguineous Serosanguineous Serosanguineous -Wound Margin Distinct, Distinct, Distinct, Outline Outline Outline Attached Attached Attached -Granulation Amt Small (1-33%) None Present (0 None Present (0 %) %) -Granulation Quality [place] -Necrosis Amt None Present (0 Large (67-100%) Large (67-100%) %) -Necrotic Tissue Type Adherent Slough Adherent Slough -Structure Exposed N/A N/A N/A -Texture (Ana-wound Skin Appearance) Localized Edema Localized Edema Scarring ,Scarring ,Scarring -Moisture (Ana-wound Skin Appearance) Assessed Weeping Weeping -Color (Ana-wound Skin Appearance) No Abnormality Erythema, Hemosiderin Hemosiderin Staining Staining -Temperature (Ana-wound Skin No Abnormality No Abnormality No Abnormality Appearance) (Pt Warm) (Pt Warm) (Pt Warm) -Tenderness on Palpation (Ana-wound No Skin Appearance) -Ulcer Cleansing Soap and Water Soap and Water Soap and Water -Foul Odor after Cleansing No No No -Anesthetic Used 4% Lidocaine 4% Lidocaine 4% Lidocaine Solution Solution Solution #2 L 3rd toe -Current Size (cm) - Length 1.5 1.3 0.1 -Current Size (cm) - Width 0.9 1.4 0.1 -Current Size (cm) - Depth 0.1 0.2 0.1 -Total Square Cm 1.35 1.82 0.01 -Photo Taken Yes No No -Exudate Amt Medium Medium Medium -Exudate Type Serosanguineous Serosanguineous Serosanguineous -Wound Margin Distinct, Distinct, Distinct, Outline Outline Outline Attached Attached Attached -Granulation Amt None Present (0 None Present (0 None Present (0 %) %) %) -Necrosis Amt Large (67-100%) Large (67-100%) Large (67-100%) -Necrotic Tissue Type Adherent Slough Adherent Slough Adherent Slough -Structure Exposed N/A N/A N/A -Texture (Ana-wound Skin Appearance) Localized Edema Localized Edema Scarring ,Scarring ,Scarring -Moisture (Ana-wound Skin Appearance) Maceration Weeping Weeping -Color (Ana-wound Skin Appearance) Hemosiderin Erythema, Hemosiderin Staining Hemosiderin Staining Staining -Temperature (Ana-wound Skin No Abnormality No Abnormality No Abnormality Appearance) (Pt Warm) (Pt Warm) (Pt Warm) -Tenderness on Palpation (Ana-wound No No Yes Skin Appearance) -Ulcer Cleansing Soap and Water Soap and Water Soap and Water -Foul Odor after Cleansing No No No -Anesthetic Used 4% Lidocaine 4% Lidocaine 4% Lidocaine Solution Solution Solution #1 L [place] -Current Size (cm) - Length 2.5 2.3 0.1 -Current Size (cm) - Width 2.2 2.3 0.1 -Current Size (cm) - Depth 0.1 0.1 0.1 -Total Square Cm 5.50 5.29 0.01 -Photo Taken Yes No No -Exudate Amt Medium Medium Medium -Exudate Type Serosanguineous Serosanguineous Serosanguineous -Wound Margin Distinct, Distinct, Distinct, Outline Outline Outline Attached Attached Attached -Granulation Amt None Present (0 None Present (0 %) %) -Necrosis Amt Large (67-100%) Large (67-100%) -Necrotic Tissue Type Adherent Slough Adherent Slough -Structure Exposed N/A N/A -Texture (Ana-wound Skin Appearance) Localized Edema Localized Edema Scarring ,Scarring ,Scarring -Moisture (Ana-wound Skin Appearance) Dry/Scaly Weeping Weeping -Color (Ana-wound Skin Appearance) Erythema, Erythema, Hemosiderin Hemosiderin Hemosiderin Staining Staining Staining -Temperature (Ana-wound Skin No Abnormality No Abnormality No Abnormality Appearance) (Pt Warm) (Pt Warm) (Pt Warm) -Tenderness on Palpation (Ana-wound No No Yes Skin Appearance) -Ulcer Cleansing Soap and Water Soap and Water Soap and Water -Foul Odor after Cleansing No No No -Anesthetic Used 4% Lidocaine 4% Lidocaine 5% Lidocaine Solution Solution Gel Right Calf (cm) 32.4 32.4 Right Ankle (cm) 22.2 23 Left Calf (cm) 35.1 35.6 Left Ankle (cm) 25.2 24.7 WC - Nurse 2 - General Ulcer CM Notes Start: 02/01/22 08:00 Freq: Status: Active Protocol: Activity Type Activity Date Activity User E-sign Co-sign Detail Recorded Client Recorded Date Recorded By Document 02/01/22 08:31 MW [id number] 02/01/22 08:58 MW Document 02/08/22 09:06 MW [id number] 02/08/22 09:51 MW Edit Result 02/08/22 09:06 MW (1) [id number] 02/09/22 07:31 PL Document 02/15/22 08:39 MW [id number] 02/15/22 09:04 MW (1) #10 R 2nd toe - Debridement, SubQ, ea addt'l 20sq cm 2 => 3 or part thereof 02/01/22 02/08/22 02/15/22 08:31 09:06 08:39 Wound Center Nurse 2 #10 R 2nd toe -Time 08:32 09:27 08:40 -Correct Patient Yes Yes Yes -Correct Side, Site, Position Yes Yes Yes -Correct Procedure Yes Yes Yes -Procedure Performed Yes Yes Yes -Type of Procedure Debridement Debridement Debridement -Clinical Debridement Subcutaneous Subcutaneous Subcutaneous -Tissue Removed Subcutaneous Subcutaneous Subcutaneous -Post Debridement (cm) - Length 1.5 1.2 0.8 -Post Debridement (cm) - Width 0.9 1.2 0.5 -Post Debridement (cm) - Depth 0.1 0.1 0.1 -Total Square (Post) (cm) 1.35 1.44 0.40 -Area of Debridement (cm) - Length 1.5 1.2 0.8 -Area of Debridement (cm) - Width 0.9 1.2 0.5 -Total Square (Area) (cm) 1.35 1.44 0.40 -Tunneling No No No -Undermining/Tunneling No No No -Circular Undermining No No No -Wound/Ulcer Outcome Not Healed Not Healed Not Healed -Ulcer Cleansing Rinsed/ Rinsed/ Rinsed/ Irrigated with Irrigated with Irrigated with Saline Saline Saline -Foul Odor after Cleansing No No No -Bioengineered Tissue No No No -Bleeding Controlled with Pressure Pressure Pressure -Treatment Response Procedure Procedure Procedure Tolerated Well Tolerated Well Tolerated Well -Offloading No No No -Debridement - Subq, 1st 20sq cm Yes Yes Yes -Debridement, SubQ, ea addt'l 20sq cm 1 3 2 or part thereof #9 L Lat Foot -Time 08:32 09:27 08:40 -Correct Patient Yes Yes Yes -Correct Side, Site, Position Yes Yes Yes -Correct Procedure Yes Yes Yes -Procedure Performed Yes Yes Yes -Type of Procedure Debridement Debridement Debridement -Clinical Debridement Subcutaneous Subcutaneous Subcutaneous -Tissue Removed Subcutaneous Subcutaneous Subcutaneous -Post Debridement (cm) - Length 1.0 1.0 1.0 -Post Debridement (cm) - Width 0.6 0.8 1.0 -Post Debridement (cm) - Depth 0.1 0.1 0.1 -Total Square (Post) (cm) 0.60 0.80 1.00 -Area of Debridement (cm) - Length 1.0 1.0 1.0 -Area of Debridement (cm) - Width 0.6 0.8 1.0 -Total Square (Area) (cm) 0.60 0.80 1.00 -Tunneling No No No -Undermining/Tunneling No No No -Circular Undermining No No No -Wound/Ulcer Outcome Not Healed Not Healed Not Healed -Ulcer Cleansing Rinsed/ Rinsed/ Rinsed/ Irrigated with Irrigated with Irrigated with Saline Saline Saline -Foul Odor after Cleansing No No No -Bioengineered Tissue No No No -Bleeding Controlled with Pressure Pressure Pressure -Treatment Response Procedure Procedure Procedure Tolerated Well Tolerated Well Tolerated Well -Offloading No No No -Debridement - Subq, 1st 20sq cm No No No #8 R LE Med -Time 08:33 09:27 08:41 -Correct Patient Yes Yes Yes -Correct Side, Site, Position Yes Yes Yes -Correct Procedure Yes Yes Yes -Procedure Performed Yes Yes Yes -Type of Procedure Debridement Debridement Debridement -Clinical Debridement Subcutaneous Subcutaneous Subcutaneous -Tissue Removed Subcutaneous Subcutaneous Subcutaneous -Post Debridement (cm) - Length 3.2 3.4 3.5 -Post Debridement (cm) - Width 1.5 1.8 1.5 -Post Debridement (cm) - Depth 0.1 0.1 0.1 -Total Square (Post) (cm) 4.80 6.12 5.25 -Area of Debridement (cm) - Length 3.2 3.4 3.5 -Area of Debridement (cm) - Width 1.5 1.8 1.5 -Total Square (Area) (cm) 4.80 6.12 5.25 -Tunneling No No No -Undermining/Tunneling No No No -Circular Undermining No No No -Wound/Ulcer Outcome Not Healed Not Healed Not Healed -Ulcer Cleansing Rinsed/ Rinsed/ Rinsed/ Irrigated with Irrigated with Irrigated with Saline Saline Saline -Foul Odor after Cleansing No No No -Bioengineered Tissue No No No -Bleeding Controlled with Pressure Pressure Pressure -Treatment Response Procedure Procedure Procedure Tolerated Well Tolerated Well Tolerated Well -Offloading No No No -Debridement - Subq, 1st 20sq cm No No No #7 R Inf. LE -Time 08:33 09:28 08:43 -Correct Patient Yes Yes Yes -Correct Side, Site, Position Yes Yes Yes -Correct Procedure Yes Yes Yes -Procedure Performed Yes Yes Yes -Type of Procedure Debridement Debridement Debridement -Clinical Debridement Subcutaneous Subcutaneous Subcutaneous -Tissue Removed Subcutaneous Subcutaneous Subcutaneous -Post Debridement (cm) - Length 3.0 3.0 3.2 -Post Debridement (cm) - Width 1.5 1.5 2.0 -Post Debridement (cm) - Depth 0.1 0.2 0.2 -Total Square (Post) (cm) 4.50 4.50 6.40 -Area of Debridement (cm) - Length 3.0 3.0 3.2 -Area of Debridement (cm) - Width 1.5 1.5 2.0 -Total Square (Area) (cm) 4.50 4.50 6.40 -Tunneling No No No -Undermining/Tunneling No No No -Circular Undermining No No No -Wound/Ulcer Outcome Not Healed Not Healed Not Healed -Ulcer Cleansing Rinsed/ Rinsed/ Rinsed/ Irrigated with Irrigated with Irrigated with Saline Saline Saline -Foul Odor after Cleansing No No No -Bioengineered Tissue No No No -Bleeding Controlled with Pressure Pressure Pressure -Treatment Response Procedure Procedure Procedure Tolerated Well Tolerated Well Tolerated Well -Offloading No No No -Debridement - Subq, 1st 20sq cm No No No #6 R Sup LE -Time 08: 09:28 08:43 -Correct Patient Yes Yes Yes -Correct Side, Site, Position Yes Yes Yes -Correct Procedure Yes Yes Yes -Procedure Performed Yes Yes Yes -Type of Procedure Debridement Debridement Debridement -Clinical Debridement Subcutaneous Subcutaneous Subcutaneous -Tissue Removed Subcutaneous Subcutaneous Subcutaneous -Post Debridement (cm) - Length 2.0 1.5 1.4 -Post Debridement (cm) - Width 0.6 0.4 0.6 -Post Debridement (cm) - Depth 0.1 0.1 0.1 -Total Square (Post) (cm) 1.20 0.60 0.84 -Area of Debridement (cm) - Length 2.0 1.5 1.4 -Area of Debridement (cm) - Width 0.6 0.4 0.6 -Total Square (Area) (cm) 1.20 0.60 0.84 -Tunneling No No No -Undermining/Tunneling No No No -Circular Undermining No No No -Wound/Ulcer Outcome Not Healed Not Healed Not Healed -Ulcer Cleansing Rinsed/ Rinsed/ Rinsed/ Irrigated with Irrigated with Irrigated with Saline Saline Saline -Foul Odor after Cleansing No No No -Bioengineered Tissue No No No -Bleeding Controlled with Pressure Pressure Pressure -Treatment Response Procedure Procedure Procedure Tolerated Well Tolerated Well Tolerated Well -Offloading No No No -Debridement - Subq, 1st 20sq cm No No No #5 R Dorsal -Time : 09:28 08:43 -Correct Patient Yes Yes Yes -Correct Side, Site, Position Yes Yes Yes -Correct Procedure Yes Yes Yes -Procedure Performed Yes Yes Yes -Type of Procedure Debridement Debridement Debridement -Clinical Debridement Subcutaneous Subcutaneous Subcutaneous -Tissue Removed Subcutaneous Subcutaneous Subcutaneous -Post Debridement (cm) - Length 1.5 1.6 1.5 -Post Debridement (cm) - Width 1.4 1.4 1.4 -Post Debridement (cm) - Depth 0.3 0.3 0.3 -Total Square (Post) (cm) 2.10 2.24 2.10 -Area of Debridement (cm) - Length 1.5 1.6 1.5 -Area of Debridement (cm) - Width 1.4 1.4 1.4 -Total Square (Area) (cm) 2.10 2.24 2.10 -Tunneling No No No -Undermining/Tunneling No No No -Circular Undermining No No No -Wound/Ulcer Outcome Not Healed Not Healed Not Healed -Ulcer Cleansing Rinsed/ Rinsed/ Rinsed/ Irrigated with Irrigated with Irrigated with Saline Saline Saline -Foul Odor after Cleansing No No No -Bioengineered Tissue No No No -Bleeding Controlled with Pressure Pressure Pressure -Treatment Response Procedure Procedure Procedure Tolerated Well Tolerated Well Tolerated Well -Offloading No No No -Debridement - Subq, 1st 20sq cm No No No #4 L Med Cluster -Time 08:34 09:28 08:44 -Correct Patient Yes Yes Yes -Correct Side, Site, Position Yes Yes Yes -Correct Procedure Yes Yes Yes -Procedure Performed Yes Yes Yes -Type of Procedure Debridement Debridement Debridement -Clinical Debridement Subcutaneous Subcutaneous Subcutaneous -Tissue Removed Subcutaneous Subcutaneous Subcutaneous -Post Debridement (cm) - Length 10.4 10.3 10.5 -Post Debridement (cm) - Width 1.0 1.0 1.2 -Post Debridement (cm) - Depth 0.1 0.1 0.1 -Total Square (Post) (cm) 10.40 10.30 12.60 -Area of Debridement (cm) - Length 10.4 10.3 10.5 -Area of Debridement (cm) - Width 1.0 1.0 1.2 -Total Square (Area) (cm) 10.40 10.30 12.60 -Tunneling No No No -Undermining/Tunneling No No No -Circular Undermining No No No -Wound/Ulcer Outcome Not Healed Not Healed Not Healed -Ulcer Cleansing Rinsed/ Rinsed/ Rinsed/ Irrigated with Irrigated with Irrigated with Saline Saline Saline -Foul Odor after Cleansing No No No -Bioengineered Tissue No No No -Bleeding Controlled with Pressure Pressure Pressure -Treatment Response Procedure Procedure Procedure Tolerated Well Tolerated Well Tolerated Well -Offloading No No No -Debridement - Subq, 1st 20sq cm No No No #3 L Lat heel -Time 08:35 09:28 08:44 -Correct Patient Yes Yes Yes -Correct Side, Site, Position Yes Yes Yes -Correct Procedure Yes Yes Yes -Procedure Performed Yes Yes Yes -Type of Procedure Debridement Debridement Debridement -Clinical Debridement Subcutaneous Subcutaneous Subcutaneous -Tissue Removed Subcutaneous Subcutaneous Subcutaneous -Post Debridement (cm) - Length 1.0 1.5 1.5 -Post Debridement (cm) - Width 0.7 1.2 1.0 -Post Debridement (cm) - Depth 0.1 0.1 0.1 -Total Square (Post) (cm) 0.70 1.80 1.50 -Area of Debridement (cm) - Length 1.0 1.5 1.5 -Area of Debridement (cm) - Width 0.7 1.2 1.0 -Total Square (Area) (cm) 0.70 1.80 1.50 -Tunneling No No No -Undermining/Tunneling No No No -Circular Undermining No No No -Wound/Ulcer Outcome Not Healed Not Healed Not Healed -Ulcer Cleansing Rinsed/ Rinsed/ Rinsed/ Irrigated with Irrigated with Irrigated with Saline Saline Saline -Foul Odor after Cleansing No No No -Bioengineered Tissue No No No -Bleeding Controlled with Pressure Pressure Pressure -Treatment Response Procedure Procedure Procedure Tolerated Well Tolerated Well Tolerated Well -Offloading No No No -Debridement - Subq, 1st 20sq cm No No No #2 L 3rd toe -Time 08:35 09:28 08:44 -Correct Patient Yes Yes Yes -Correct Side, Site, Position Yes Yes Yes -Correct Procedure Yes Yes Yes -Procedure Performed Yes Yes Yes -Type of Procedure Debridement Debridement Debridement -Clinical Debridement Subcutaneous Subcutaneous Subcutaneous -Tissue Removed Subcutaneous Subcutaneous Subcutaneous -Post Debridement (cm) - Length 1.5 4.0 4.5 -Post Debridement (cm) - Width 0.6 3.0 3.0 -Post Debridement (cm) - Depth 0.1 0.1 0.1 -Total Square (Post) (cm) 0.90 12.00 13.50 -Area of Debridement (cm) - Length 1.5 4.0 4.5 -Area of Debridement (cm) - Width 0.6 3.0 3.0 -Total Square (Area) (cm) 0.90 12.00 13.50 -Tunneling No No No -Undermining/Tunneling No No No -Circular Undermining No No No -Wound/Ulcer Outcome Not Healed Not Healed Not Healed -Ulcer Cleansing Rinsed/ Rinsed/ Rinsed/ Irrigated with Irrigated with Irrigated with Saline Saline Saline -Foul Odor after Cleansing No No No -Bioengineered Tissue No No No -Bleeding Controlled with Pressure Pressure Pressure -Treatment Response Procedure Procedure Procedure Tolerated Well Tolerated Well Tolerated Well -Offloading No No No -Debridement - Subq, 1st 20sq cm No No No #1 L Hallux -Time 08:36 09:29 08:45 -Correct Patient Yes Yes Yes -Correct Side, Site, Position Yes Yes Yes -Correct Procedure Yes Yes Yes -Procedure Performed Yes Yes Yes -Type of Procedure Debridement Debridement Debridement -Clinical Debridement Subcutaneous Subcutaneous Subcutaneous -Tissue Removed Subcutaneous Subcutaneous Subcutaneous -Post Debridement (cm) - Length 2.5 3.0 3.5 -Post Debridement (cm) - Width 2.4 3.0 4.0 -Post Debridement (cm) - Depth 0.1 0.1 0.1 -Total Square (Post) (cm) 6.00 9.00 14.00 -Area of Debridement (cm) - Length 2.5 3.0 3.5 -Area of Debridement (cm) - Width 2.4 3.0 4.0 -Total Square (Area) (cm) 6.00 9.00 14.00 -Tunneling No No No -Undermining/Tunneling No No No -Circular Undermining No No No -Wound/Ulcer Outcome Not Healed Not Healed Not Healed -Ulcer Cleansing Rinsed/ Rinsed/ Rinsed/ Irrigated with Irrigated with Irrigated with Saline Saline Saline -Foul Odor after Cleansing No No No -Bioengineered Tissue No No No -Bleeding Controlled with Pressure Pressure Pressure -Treatment Response Procedure Procedure Procedure Tolerated Well Tolerated Well Tolerated Well -Offloading No No No -Debridement - Subq, 1st 20sq cm No No No Pain Scale: 0-10 Numeric Is Patient Pain Free? Yes Yes Yes WC - Nurse 3 - General Ulcer D/C NN Start: 02/01/22 08:00 Freq: Status: Active Protocol: Activity Type Activity Date Activity User E-sign Co-sign Detail Recorded Client Recorded Date Recorded By Document 02/01/22 09:10 [facility] [id number] 02/01/22 09:18 [facility] Document 02/08/22 10:01 DL [id number] 02/08/22 10:13 DL Document 02/15/22 09:25 DL [id number] 02/15/22 09:28 DL 02/01/22 02/08/22 02/15/22 09:10 10:01 09:25 Wound Care Nurse 3 #10 R 2nd toe -Ulcer Cleansing Rinsed/ Soap and Water Irrigated with Saline -Foul Odor after Cleansing No No No -Primary Dressing Applied Aquacel Extra Aquacel Extra, Aquacel Extra Optilok 6.5x10 -Other Dressing DRSG PER ME RN -Primary Dressing Covered/Secured with Dry Gauze Dry Gauze & Dry Gauze & Roll Gauze, Roll Gauze, Secured with Secured with Tape Tape -Other Covering ABD -Aquacel Extra 3 3 2 -Optilok 6.5x10 1 #9 L Lat Foot -Ulcer Cleansing Rinsed/ Soap and Water Rinsed/ Irrigated with Irrigated with Saline Saline -Foul Odor after Cleansing No No No -Primary Dressing Applied Aquacel Extra Optilok 6.5x10 Aquacel Extra -Other Dressing ABD aquacel ex -Primary Dressing Covered/Secured with Dry Gauze Dry Gauze & Dry Gauze & Roll Gauze, Roll Gauze, Secured with Secured with Tape Tape -Other Covering PER ME RN sivakumar -Aquacel Extra 0 0 -Optilok 6.5x10 1 #8 R LE Med -Ulcer Cleansing Rinsed/ Soap and Water Rinsed/ Irrigated with Irrigated with Saline Saline -Foul Odor after Cleansing No No No -Primary Dressing Applied Aquacel Extra Aquacel Extra -Other Dressing DRSG PER ME RN aquacel exsuperabsorber -Primary Dressing Covered/Secured with Dry Gauze & Dry Gauze & Roll Gauze, Roll Gauze, Secured with Secured with Tape Tape -Other Covering ABD sivakumar -Aquacel Extra 0 0 #7 R Inf. LE -Ulcer Cleansing Rinsed/ Soap and Water Rinsed/ Irrigated with Irrigated with Saline Saline -Foul Odor after Cleansing No No No -Primary Dressing Applied Aquacel Extra Aquacel Extra -Other Dressing ABD, DRSG PER aquacel ex/ [place] RN superabsorber -Primary Dressing Covered/Secured with Dry Gauze & Dry Gauze & Roll Gauze, Roll Gauze, Secured with Secured with Tape Tape -Other Covering sivakumar -Aquacel Extra 0 0 #6 R Sup LE -Ulcer Cleansing Rinsed/ Soap and Water Rinsed/ Irrigated with Irrigated with Saline Saline -Foul Odor after Cleansing No No No -Primary Dressing Applied Aquacel Extra Aquacel Extra -Other Dressing DRSG PER [facility] aquacel ex/ super abosrber -Primary Dressing Covered/Secured with Dry Gauze & Dry Gauze & Roll Gauze, Roll Gauze, Secured with Secured with Tape Tape -Other Covering ABD, sivakumar -Aquacel Extra 0 0 #5 R Dorsal -Ulcer Cleansing Rinsed/ Soap and Water Rinsed/ Irrigated with Irrigated with Saline Saline -Foul Odor after Cleansing No No No -Primary Dressing Applied Aquacel Extra Aquacel Extra -Other Dressing ABD aquacel ex/ supber absorber -Primary Dressing Covered/Secured with Dry Gauze & Dry Gauze & Roll Gauze, Roll Gauze, Secured with Secured with Tape Tape -Other Covering DRSG PER [facility] sivakumar -Aquacel Extra 0 0 #4 L Med Cluster -Ulcer Cleansing Rinsed/ Soap and Water Rinsed/ Irrigated with Irrigated with Saline Saline -Foul Odor after Cleansing No No No -Primary Dressing Applied Aquacel Extra Aquacel Extra -Other Dressing DRSG PER [facility] aquacel Ex / super absorber -Primary Dressing Covered/Secured with Dry Gauze & Dry Gauze & Roll Gauze, Roll Gauze, Secured with Secured with Tape Tape -Other Covering ABD sivakumar -Aquacel Extra 0 0 #3 L Lat heel -Ulcer Cleansing Rinsed/ Soap and Water Rinsed/ Irrigated with Irrigated with Saline Saline -Foul Odor after Cleansing No No No -Primary Dressing Applied Aquacel Extra Aquacel Extra -Other Dressing HEEL HAT, DRSG aquacel ex/ PER ME RN super absorber -Primary Dressing Covered/Secured with Dry Gauze & Dry Gauze & Roll Gauze Roll Gauze, Secured with Tape -Other Covering sivakumar -Aquacel Extra 0 0 #2 L 3rd toe -Ulcer Cleansing Rinsed/ Soap and Water Rinsed/ Irrigated with Irrigated with Saline Saline -Foul Odor after Cleansing No No No -Primary Dressing Applied Aquacel Extra Aquacel Extra -Other Dressing DRSG PER [facility] aquacel Ex/ superabsorber -Primary Dressing Covered/Secured with Dry Gauze, Dry Gauze & Dry Gauze & Secured with Roll Gauze, Roll Gauze, Tape Secured with Secured with Tape Tape -Other Covering sivakumar -Aquacel Extra 0 0 #1 L Hallux -Ulcer Cleansing Rinsed/ Soap and Water Rinsed/ Irrigated with Irrigated with Saline Saline -Foul Odor after Cleansing No No No -Other Dressing DIDIER MELGAR/ joe ELLISON [place] RN superabsorber -Primary Dressing Covered/Secured with Dry Gauze & Dry Gauze & Dry Gauze & Roll Gauze, Roll Gauze, Roll Gauze, Secured with Secured with Secured with Tape Tape Tape -Other Covering sivakumar BLE -Multi-Layered Wrap Application Multi-Layer Multi-Layer Comp - Bilat ($ Comp - Bilat ($ ) ) Treatment Response Procedure Procedure Procedure Tolerated Well Tolerated Well Tolerated Well Pain Scale: 0-10 Numeric Is Patient Pain Free? Yes Yes Yes WC - Visit Discharge Discharge Condition Stable Stable Stable Ambulatory Status Ambulatory Ambulatory Ambulatory Transportation Private Auto Private Auto Private Auto Accompanied by son Facility Type Home Health Additional Wound Wound debrided: Right [place] Type of Debridement: Excisional debridement Anesthesia Used: 4% Lidocaine Solution Depth: Down to and including healthy tissue and in the subcutaneous layer Percentage of wound debrided: 100 Instrument Used: 5mm curette Tissue Removed: Slough and devitalized tissue Severity: Fat Layer Exposed Amount of bleeding with debridement: Mild Bleeding Controlled with: Pressure Patient tolerated procedure: Patient tolerated procedure well Additional Wound Wound debrided: Right lower extremity (medial) Type of Debridement: Excisional debridement Anesthesia Used: 4% Lidocaine Solution Depth: Down to and including healthy tissue and in the subcutaneous layer Percentage of wound debrided: 100 Instrument Used: 5mm curette Tissue Removed: Slough and devitalized tissue Severity: Fat Layer Exposed Amount of bleeding with debridement: Mild Patient tolerated procedure: Patient tolerated procedure well Additional Wound Wound debrided: Right dorsal foot Type of Debridement: Excisional debridement Anesthesia Used: 4% Lidocaine Solution Depth: Down to and including healthy tissue and in the subcutaneous layer Percentage of wound debrided: 100 Instrument Used: 5mm curette Tissue Removed: Slough and devitalized tissue Severity: Fat Layer Exposed Amount of bleeding with debridement: Mild Bleeding Controlled with: Pressure Patient tolerated procedure: Patient tolerated procedure well Additional Wound Wound debrided: Right second toe Type of Debridement: Excisional debridement Anesthesia Used: 4% Lidocaine Solution Depth: Down to and including healthy tissue and in the subcutaneous layer Percentage of wound debrided: 100 Instrument Used: 3mm curette Tissue Removed: Slough and devitalized tissue Severity: Fat Layer Exposed Amount of bleeding with debridement: Mild Bleeding Controlled with: Pressure Patient tolerated procedure: Patient tolerated procedure well Additional Wound Wound debrided: Left lower extremity medial cluster Type of Debridement: Excisional debridement Anesthesia Used: 4% Lidocaine Solution Depth: Down to and including healthy tissue and in the subcutaneous layer Percentage of wound debrided: 100 Instrument Used: 5mm curette Tissue Removed: Slough and devitalized tissue Severity: Fat Layer Exposed Amount of bleeding with debridement: Mild Bleeding Controlled with: Pressure Patient tolerated procedure: Patient tolerated procedure well Additional Wound Wound debrided: Left great toe Type of Debridement: Excisional debridement Anesthesia Used: 4% Lidocaine Solution Depth: Down to and including healthy tissue and in the subcutaneous layer Percentage of wound debrided: 100 Instrument Used: 5mm curette Tissue Removed: Slough and devitalized tissue Severity: Fat Layer Exposed Amount of bleeding with debridement: Mild Bleeding Controlled with: Pressure Patient tolerated procedure: Patient tolerated procedure well Additional Wound Wound debrided: Left third toe cluster Type of Debridement: Excisional debridement Anesthesia Used: 4% Lidocaine Solution Depth: Down to and including healthy tissue and in the subcutaneous layer Percentage of wound debrided: 100 Instrument Used: 5mm curette Tissue Removed: Slough and devitalized tissue Severity: Fat Layer Exposed Amount of bleeding with debridement: Mild Bleeding Controlled with: Pressure Patient tolerated procedure: Patient tolerated procedure well Additional Wound Wound debrided: Left heel Type of Debridement: Excisional debridement Anesthesia Used: 4% Lidocaine Solution Depth: Down to and including healthy tissue and in the subcutaneous layer Percentage of wound debrided: 100 Instrument Used: 5mm curette Tissue Removed: Slough and devitalized tissue Severity: Fat Layer Exposed Amount of bleeding with debridement: Mild Bleeding Controlled with: Pressure Patient tolerated procedure: Patient tolerated procedure well Assessment/Plan Assessment/Plan (1) Ulcer of left lower extremity with fat layer exposed: CODE(S): L97.922 - Non-pressure chronic ulcer of unspecified part of left lower leg with fat layer exposed (2) Ulcer of right lower extremity with fat layer exposed: CODE(S): L97.912 - Non-pressure chronic ulcer of unspecified part of right lower leg with fat layer exposed (3) Bilateral lower extremity edema: CODE(S): R60.0 - Localized edema (4) Type 2 diabetes mellitus: CODE(S): E11.9 - Type 2 diabetes mellitus without complications (5) Cellulitis of leg: CODE(S): L03.119 - Cellulitis of unspecified part of limb (6) nursing home current use of 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: CODE(S): Z79.01 - nursing home (current) use of 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s (7) Ulcer of right foot with fat layer exposed: CODE(S): L97.512 - Non-pressure chronic ulcer of other part of right foot with fat layer exposed (8) Skin ulcer of left great toe with fat layer exposed: CODE(S): L97.522 - Non-pressure chronic ulcer of other part of left foot with fat layer exposed (9) Chronic 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 Left lateral foot also debrided, procedure was well-tolerated. Slough and devitalized tissue debrided to the subcutaneous level. Minimal bleeding controlled with pressure. Other debridement done as documented above, procedure was well-tolerated. Left great toe continues to show worsening. Has had 2 x-rays not suggestive of bony erosion or osteomyelitis however clinically it is concerning. Has had multiple toe amputations. Not open to vascular studies. Will refer to podiatry for second opinion. Worsening bilateral lower extremity edema with new blistering and some new wounds actually. Patient is poorly compliant with instructions. We will go back to [employer] wrap, now that he has home health this can possibly be changed more often. We will have them come in on Saturday and Saturday for dressing change. Patient and his voiced understanding. Continue Aquacel to all ulcers and Santyl to left great toe, dried eschar off. Increase protein intake, vitamin C and zinc discussed. Optimal diabetes control discussed. Their questions were answered and they were advised to call with any further questions or concerns. Follow-up with podiatry next week. This note was generated with [employer] dictation software. It may contain incorrect words, spelling, and punctuation that were not noted in checking the note before signing.
[2022-02-20 11:30] VITALS: BP 126/85; RESP 18; TEMP 35.9
--- NOTE | 2022-02-20 12:32 | HP.PCM_ITS ---
History of Present Illness Date of Service: 02/20/22 Chief Complaint: Bilateral lower extremity ulcer History of Wound: Mr. Brandt is a 76-year-old who presents to the wound center due to non healing bilateral lower extremity ulcerations. 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 Patient has a history of Type II DM, CKD, PAD. Patient has bilateral leg ulcerations, left hallux, plantar left heel and dorsal right 2nd toe wounds. He denies constitutionals at current. Denies pain. Patient non-compliant with elevating legs. No other complaints at this time. Progress of Wound: He was switched to daily dressing last week due to maceration thought to be due to 3M wraps been in place for too long however, now presents with significant worsening bilateral lower extremity edema. Left great toe continues to show worsening. Denies pain, chills, fever or feeling of unwell. Has had 2 x-rays which were not suggestive of osteomyelitis or bone erosion. He has declined vascular studies. [facility] Medical History Acute on chronic systolic (congestive) heart failure Alcohol abuse Atherosclerosis of coronary artery bypass graft without angina pectoris Atrial fibrillation Bilateral lower extremity edema CAD (coronary artery disease) Cardiac dysrhythmia Cardiomyopathy Chronic systolic congestive heart failure Chronic ulcer of toe of left foot with fat layer exposed Congestive heart failure Elevated troponin Essential (primary) hypertension GERD (gastroesophageal reflux disease) Heavy alcohol use HLD (hyperlipidemia) Implantable cardioverter-defibrillator (ICD) at end of battery life 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 [facility] current use of 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 Non-rheumatic tricuspid valve insufficiency NSTEMI (non-ST elevated myocardial infarction) 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 RITESH (obstructive sleep apnea) Paroxysmal atrial fibrillation Paroxysmal atrial fibrillation with rapid ventricular response Paroxysmal atrial flutter Peripheral vascular disease Pleural effusion Secondary pulmonary arterial hypertension Skin ulcer of left great toe with fat layer exposed Sleep apnea Type 2 diabetes mellitus Type 2 diabetes mellitus Ulcer of left lower extremity with fat layer exposed Ulcer of right foot with fat layer exposed Ulcer of right lower extremity with fat layer exposed Ventricular tachycardia Home Medications aspirin 81 mg tablet,delayed release 81 mg PO DAILY heart health 09/19/18 [History Last Taken 02/01/22] Handicap Placard #1 ea 08/28/19 [Rx Last Taken Unknown] losartan 25 mg tablet 25 mg PO DAILY #90 tabs 04/03/21 [Rx Last Taken 02/01/22] atorvastatin 80 mg tablet 80 mg PO QHS #90 tabs 05/23/21 [Rx Last Taken 11/02/21] Novolin N Flexpen 5 units QHS diabetes 11/03/21 [History Last Taken Unknown] Novolin N Flexpen 12 units DAILY daily 11/03/21 [History Last Taken 11/03/21] warfarin 2 mg tablet (Jose Mariatoven) 2 mg PO DINNER #0 tabs 11/06/21 [Rx Last Taken 01/31/22] omeprazole 20 mg capsule,delayed release 20 mg PO DAILY PRN acid reflux 11/14/21 [History Last Taken 02/01/22] ascorbic acid (vitamin C) 500 mg tablet 500 mg PO DAILY 01/01/22 [History Last Taken Unknown] cholecalciferol (vitamin D3) 25 mcg (1,000 unit) capsule 25 mcg PO DAILY 01/01/22 [History Last Taken Unknown] furosemide 40 mg tablet 60 mg PO BID 01/23/22 [History Last Taken Unknown] potassium chloride 20 mEq tablet,extended release 20 meq PO DAILY 01/24/22 [History Last Taken Unknown] spironolactone 25 mg tablet 25 mg PO DAILY #30 tabs 01/24/22 [Rx Last Taken Unknown] clindamycin HCl 300 mg capsule 300 mg PO TID #15 caps 01/29/22 [Rx Last Taken Unknown] metoprolol succinate 100 mg tablet,extended release 24 hr 100 mg PO BID #180 tabs 02/05/22 [Rx Last Taken Unknown] Allergy/AdvReac Type Severity Reaction Status Date / Time amiodarone AdvReac Shortness Verified 01/24/22 16:45 of breath lisinopril AdvReac cough Verified 01/24/22 16:45 Surgical History H/O coronary artery bypass surgery (1997) History of coronary artery stent placement (01/2016) History of implantable cardiac defibrillator (ICD) (02/11/20) History of thoracentesis Hx of CABG S/P PTCA (percutaneous transluminal coronary angioplasty) Social History Smoking Status: Never smoker alcohol intake: current alcohol intake frequency: a few times a week Alcohol type: beer substance use type: does not use caffeine: Yes Type: coffee Number of servings: 2 what type of physical activity do you participate in: none seatbelt use: never do you feel safe at home: Yes ROS Constitutional Constitutional: Denies chills, headache(s) or stops breathing during sleep Eyes Eyes: Denies double vision, halo effect or numbness ENT HEENT: Denies loss taste/smell, nasal trauma or sinus pain Cardiovascular Cardiovascular: Denies abdominal pain, chest pain with activity or dyspnea at rest Respiratory/Chest Respiratory/Chest: Denies chest congestion, dyspnea on exertion or mouth breathing Vital Signs Vital Signs Vital Signs: 02/20/22 11:30 Temperature 96.7 F L Temperature Source Temporal Respiratory Rate 18 Blood Pressure 126/85 H Blood Pressure Mean 98 Blood Pressure Source Monitor Blood Pressure Position Sitting Blood Pressure Location Left Arm Oxygen Delivery Method Room Air Physical Exam Narrative Diminished dorsalis pedis/posterior tibial pulses. Delayed capillary fill time bilaterally. Light touch/protective sensation absent to bilateral feet. Full thickness wound to dorsal left hallux and plantar left midfoot. well demarcated, ischemic rim with central necrosis. FT wound to dorsal 2nd digit. Multiple full thickness leg ulcerations with fibrogranular bases and serous drainage likely 2/2 to poorly controlled edema. some malodoer, no other gross signs of infection. No gross wound forming deformity, no signs of DVT. Debridement Note Debridement Note Post-Debridement Measurements and Additional Note: Post-Debridement Measurements/Treatment DAVID - Nurse 1 - General Ulcer Assessment Start: 02/01/22 08:00 Freq: Status: Active Protocol: CHAPARRITA Activity Type Activity Date Activity User E-sign Co-sign Detail Recorded Client Recorded Date Recorded By Document 02/01/22 08:00 DL [id number] 02/01/22 08:23 DL Document 02/08/22 08:26 [facility] [id number] 02/08/22 08:50 BMF Document 02/15/22 08:08 DL [id number] 02/15/22 08:22 DL Document 02/20/22 11:30 [facility] [id number] 02/20/22 11:56 [facility] 02/01/22 02/08/22 02/15/22 08:00 08:26 08:08 - Today's Visit Information Type of service Follow-up Visit Follow-up Visit Follow-up Visit (Physician/COOK BOX FILLER (Physician/COOK BOX FILLER (Physician/COOK BOX FILLER ) ) ) Arrival Mode Ambulatory, Ambulatory Ambulatory Walker Transfer Assistance None None Transfer Assist (Other) Accompanied by Patient Identification Verified (Name & Yes Yes Yes ) Patient Requires Transmission-Based No No No Precautions Finger Stick Blood Sugar(mg/dl) (if 127 indicated): Blood Sugar Stated by Patient Vital Signs Temperature (97.8 F-99.1 F) 96.7 F L 96.6 F L 96.6 F L Temperature Source Temporal Temporal Temporal Pulse Rate (60-100) 83 73 91 Pulse Location Monitor Monitor Monitor Respiratory Rate (12-18) 18 20 H 18 Respiratory rate source Observation Observation Oxygen Delivery Method Blood Pressure (90/60-120/80) 99/54 L 128/29 H 115/76 Blood Pressure Mean 69 62 89 Source Monitor Monitor Monitor Position Blood Pressure Location History Since Last Visit- (Skip if this is Patient's initial visit) Have you changed medications since your No No No last visit? Any new allergies or adverse reactions No No No Had a fall/change in ADL's that may No No No increase risk of falls Signs or symptoms of abuse and/or No No No neglect since last visit Have you been in the hospital since your No No No last visit? Has dressing in place as prescribed Yes Yes Yes Has compression in place as prescribed Yes Yes Yes Has offloadiing in place as prescribed Yes N/A Experienced any changes in pain level or No No No management Left Footwear Removable Cast Walker/Walking Boot Right Footwear Surgical Shoe with pressure relief insole Other Footwear Pain Scale: 0-10 Numeric Is Patient Pain Free? Yes Yes Yes 02/20/22 11:30 - Today's Visit Information Type of service Follow-up Visit (Physician/COOK BOX FILLER ) Arrival Mode Wheelchair Transfer Assistance Other Transfer Assist (Other) 1 Accompanied by Patient Identification Verified (Name & Yes ) Patient Requires Transmission-Based No Precautions Finger Stick Blood Sugar(mg/dl) (if indicated): Blood Sugar Vital Signs Temperature (97.8 F-99.1 F) 96.7 F L Temperature Source Temporal Pulse Rate (60-100) Pulse Location Respiratory Rate (12-18) 18 Respiratory rate source Observation Oxygen Delivery Method Room Air Blood Pressure (90/60-120/80) 126/85 H Blood Pressure Mean 98 Source Monitor Position Sitting Blood Pressure Location Left Arm History Since Last Visit- (Skip if this is Patient's initial visit) Have you changed medications since your No last visit? Any new allergies or adverse reactions No Had a fall/change in ADL's that may No increase risk of falls Signs or symptoms of abuse and/or No neglect since last visit Have you been in the hospital since your No last visit? Has dressing in place as prescribed Yes Has compression in place as prescribed Yes Has offloadiing in place as prescribed Yes Experienced any changes in pain level or No management Left Footwear Surgical Shoe with pressure relief insole Right Footwear Other Footwear (Comment) Other Footwear non skid sock rle Pain Scale: 0-10 Numeric Is Patient Pain Free? Yes WC - Nurse 1 - General Ulcer Measurement Start: 02/01/22 08:00 Freq: Status: Active Protocol: Activity Type Activity Date Activity User E-sign Co-sign Detail Recorded Client Recorded Date Recorded By Document 02/01/22 08:00 DL [id number] 02/01/22 08:23 DL Document 02/08/22 08:26 [facility] [id number] 02/08/22 08:50 BMF Document 02/15/22 08:08 DL [id number] 02/15/22 08:22 DL Document 02/20/22 11:30 [facility] [id number] 02/20/22 11:56 BMF 02/01/22 02/08/22 02/15/22 08:00 08:26 08:08 Wound Center Nurse 1 #10 R 2nd toe -Combined with other wound -Current Size (cm) - Length 0.8 0.9 0.1 -Current Size (cm) - Width 0.6 0.8 0.1 -Current Size (cm) - Depth 0.1 0.1 0.1 -Total Square Cm 0.48 0.72 0.01 -Photo Taken No No No -Epithelialization -Tunneling -Undermining/Tunneling -Circular Undermining -Exudate Amt Small Medium Medium -Exudate Type Serosanguineous Serosanguineous Serosanguineous -Wound Margin Distinct, Distinct, Distinct, Outline Outline Outline Attached Attached Attached -Granulation Amt Small (1-33%) None Present (0 None Present (0 %) %) -Granulation Quality [place] -Slough/Fibrin -Necrosis Amt Small (1-33%) Large (67-100%) Large (67-100%) -Necrotic Tissue Type Adherent Slough Adherent Slough Adherent Slough -Structure Exposed N/A N/A N/A -Texture (Ana-wound Skin Appearance) Scarring Scarring Scarring -Moisture (Ana-wound Skin Appearance) No Abnormality Weeping Weeping -Color (Ana-wound Skin Appearance) Hemosiderin Erythema, Hemosiderin Staining Hemosiderin Staining Staining -Temperature (Ana-wound Skin No Abnormality No Abnormality No Abnormality Appearance) (Pt Warm) (Pt Warm) (Pt Warm) -Tenderness on Palpation (Ana-wound Yes No No Skin Appearance) -Ulcer Cleansing Soap and Water Soap and Water Soap and Water -Foul Odor after Cleansing Yes, Due to No No Product Use -Anesthetic Used 4% Lidocaine 4% Lidocaine 5% Lidocaine Solution Solution Gel #9 L Lat Foot -Combined with other wound -Current Size (cm) - Length 1 0.9 0.1 -Current Size (cm) - Width 0.3 0.6 0.1 -Current Size (cm) - Depth 0.1 0.1 0.1 -Total Square Cm 0.3 0.54 0.01 -Date of Last Picture (Recall this field) -Photo Taken Yes No No -Epithelialization -Tunneling -Undermining/Tunneling -Circular Undermining -Exudate Amt Small Medium Medium -Exudate Type Serosanguineous Serosanguineous Serosanguineous -Wound Margin Distinct, Distinct, Distinct, Outline Outline Outline Attached Attached Attached -Granulation Amt Large (67-100%) None Present (0 None Present (0 %) %) -Granulation Quality [place] -Slough/Fibrin -Necrosis Amt Small (1-33%) Large (67-100%) Large (67-100%) -Necrotic Tissue Type Adherent Slough Adherent Slough -Structure Exposed N/A Tendon,N/A -Texture (Ana-wound Skin Appearance) Scarring Localized Edema Scarring ,Scarring -Moisture (Ana-wound Skin Appearance) No Abnormality Weeping Weeping -Color (Ana-wound Skin Appearance) Hemosiderin Erythema, Hemosiderin Staining Hemosiderin Staining Staining -Temperature (Ana-wound Skin No Abnormality No Abnormality No Abnormality Appearance) (Pt Warm) (Pt Warm) (Pt Warm) -Tenderness on Palpation (Ana-wound No No No Skin Appearance) -Ulcer Cleansing Soap and Water Soap and Water Soap and Water -Foul Odor after Cleansing No No No -Anesthetic Used 4% Lidocaine 4% Lidocaine 5% Lidocaine Solution Solution Gel #8 R LE Med -Combined with other wound -Current Size (cm) - Length 2.7 0.1 -Current Size (cm) - Width 1.6 0.1 -Current Size (cm) - Depth 0.1 0.1 -Total Square Cm 4.32 0.01 -Photo Taken Yes No No -Epithelialization -Tunneling -Undermining/Tunneling -Circular Undermining -Exudate Amt Small Medium Medium -Exudate Type Serosanguineous Serosanguineous Serosanguineous -Wound Margin Distinct, Distinct, Distinct, Outline Outline Outline Attached Attached Attached -Granulation Amt Medium (34-66%) None Present (0 None Present (0 %) %) -Granulation Quality [place] -Slough/Fibrin -Necrosis Amt Medium (34-66%) Large (67-100%) Large (67-100%) -Necrotic Tissue Type Adherent Slough Adherent Slough Adherent Slough -Structure Exposed N/A N/A N/A -Texture (Ana-wound Skin Appearance) Scarring Localized Edema Scarring ,Scarring -Moisture (Ana-wound Skin Appearance) Dry/Scaly Weeping Weeping -Color (Ana-wound Skin Appearance) Hemosiderin Erythema, Hemosiderin Staining Hemosiderin Staining Staining -Temperature (Ana-wound Skin No Abnormality No Abnormality No Abnormality Appearance) (Pt Warm) (Pt Warm) (Pt Warm) -Tenderness on Palpation (Ana-wound No No Skin Appearance) -Ulcer Cleansing Soap and Water Soap and Water Soap and Water -Foul Odor after Cleansing No No No -Anesthetic Used 4% Lidocaine 4% Lidocaine 4% Lidocaine Solution Solution Solution #7 R Inf. LE -Combined with other wound -Current Size (cm) - Length 2.7 5.8 0.1 -Current Size (cm) - Width 1.4 4 0.1 -Current Size (cm) - Depth 0.2 0.3 0.1 -Total Square Cm 3.78 23.2 0.01 -Photo Taken Yes No No -Epithelialization -Tunneling -Undermining/Tunneling -Circular Undermining -Exudate Amt Medium Medium Medium -Exudate Type Serosanguineous Serosanguineous Serosanguineous -Wound Margin Distinct, Distinct, Distinct, Outline Outline Outline Attached Attached Attached -Granulation Amt Medium (34-66%) None Present (0 None Present (0 %) %) -Granulation Quality Red -Slough/Fibrin -Necrosis Amt Medium (34-66%) Large (67-100%) Large (67-100%) -Necrotic Tissue Type Adherent Slough Adherent Slough Adherent Slough -Structure Exposed N/A N/A N/A -Texture (Ana-wound Skin Appearance) Scarring Localized Edema Scarring ,Scarring -Moisture (Ana-wound Skin Appearance) No Abnormality Weeping Weeping -Color (Ana-wound Skin Appearance) Hemosiderin Erythema, Hemosiderin Staining Hemosiderin Staining Staining -Temperature (Ana-wound Skin No Abnormality No Abnormality No Abnormality Appearance) (Pt Warm) (Pt Warm) (Pt Warm) -Tenderness on Palpation (Ana-wound No No Skin Appearance) -Ulcer Cleansing Soap and Water Soap and Water Soap and Water -Foul Odor after Cleansing No No No -Anesthetic Used 4% Lidocaine 4% Lidocaine 4% Lidocaine Solution Solution Solution #6 R Sup LE -Combined with other wound -Current Size (cm) - Length 2.3 2.4 0.1 -Current Size (cm) - Width 0.8 0.7 0.1 -Current Size (cm) - Depth 0.2 0.2 0.1 -Total Square Cm 1.84 1.68 0.01 -Photo Taken Yes No No -Epithelialization -Tunneling -Undermining/Tunneling -Circular Undermining -Exudate Amt Small Medium Medium -Exudate Type Serosanguineous Serosanguineous Serosanguineous -Wound Margin Distinct, Distinct, Distinct, Outline Outline Outline Attached Attached Attached -Granulation Amt Medium (34-66%) None Present (0 None Present (0 %) %) -Granulation Quality Red -Slough/Fibrin -Necrosis Amt Medium (34-66%) Large (67-100%) Large (67-100%) -Necrotic Tissue Type Adherent Slough Adherent Slough -Structure Exposed N/A N/A N/A -Texture (Ana-wound Skin Appearance) Localized Edema Localized Edema Scarring ,Scarring ,Scarring -Moisture (Ana-wound Skin Appearance) Dry/Scaly Weeping Weeping -Color (Ana-wound Skin Appearance) Hemosiderin Erythema, Hemosiderin Staining Hemosiderin Staining Staining -Temperature (Ana-wound Skin No Abnormality No Abnormality No Abnormality Appearance) (Pt Warm) (Pt Warm) (Pt Warm) -Tenderness on Palpation (Ana-wound No No Skin Appearance) -Ulcer Cleansing Soap and Water Soap and Water Not Cleansed -Foul Odor after Cleansing No No No -Anesthetic Used 4% Lidocaine 4% Lidocaine 4% Lidocaine Solution Solution Solution #5 R Dorsal -Combined with other wound -Current Size (cm) - Length 1.4 1.6 0.1 -Current Size (cm) - Width 1.4 1.4 0.1 -Current Size (cm) - Depth 0.3 0.4 0.1 -Total Square Cm 1.96 2.24 0.01 -Photo Taken No No No -Epithelialization -Tunneling -Undermining/Tunneling -Circular Undermining -Exudate Amt Medium Medium Medium -Exudate Type Serosanguineous Serosanguineous Serosanguineous -Wound Margin Distinct, Distinct, Distinct, Outline Outline Outline Attached Attached Attached -Granulation Amt Small (1-33%) None Present (0 None Present (0 %) %) -Granulation Quality [place] -Slough/Fibrin -Necrosis Amt Large (67-100%) Large (67-100%) Large (67-100%) -Necrotic Tissue Type Adherent Slough Adherent Slough Eschar -Structure Exposed N/A N/A -Texture (Ana-wound Skin Appearance) Scarring Scarring,Rash Scarring -Moisture (Ana-wound Skin Appearance) Maceration Weeping Weeping -Color (Ana-wound Skin Appearance) Hemosiderin Erythema, Hemosiderin Staining Hemosiderin Staining Staining -Temperature (Ana-wound Skin No Abnormality No Abnormality Appearance) (Pt Warm) (Pt Warm) -Tenderness on Palpation (Ana-wound No Yes Skin Appearance) -Ulcer Cleansing Soap and Water Soap and Water Soap and Water -Foul Odor after Cleansing No No No -Anesthetic Used 4% Lidocaine 4% Lidocaine 4% Lidocaine Solution Solution Solution #4 L Med Cluster -Combined with other wound -Current Size (cm) - Length 11 9.5 0.1 -Current Size (cm) - Width 2.5 1 0.1 -Current Size (cm) - Depth 0.2 0.2 0.1 -Total Square Cm 27.5 9.5 0.01 -Photo Taken Yes No No -Epithelialization -Tunneling -Undermining/Tunneling -Circular Undermining -Exudate Amt Small Medium Medium -Exudate Type Serosanguineous Serosanguineous Serosanguineous -Wound Margin Distinct, Distinct, Distinct, Outline Outline Outline Attached Attached Attached -Granulation Amt Medium (34-66%) None Present (0 None Present (0 %) %) -Granulation Quality Red -Slough/Fibrin -Necrosis Amt Medium (34-66%) Large (67-100%) Large (67-100%) -Necrotic Tissue Type Adherent Slough Adherent Slough Adherent Slough -Structure Exposed N/A N/A N/A -Texture (Ana-wound Skin Appearance) Scarring Localized Edema Scarring ,Scarring -Moisture (Ana-wound Skin Appearance) Dry/Scaly Weeping Weeping -Color (Ana-wound Skin Appearance) Hemosiderin Erythema, Hemosiderin Staining Hemosiderin Staining Staining -Temperature (Ana-wound Skin No Abnormality No Abnormality Appearance) (Pt Warm) (Pt Warm) -Tenderness on Palpation (Ana-wound No Skin Appearance) -Ulcer Cleansing Soap and Water Soap and Water Soap and Water -Foul Odor after Cleansing No No No -Anesthetic Used 4% Lidocaine 4% Lidocaine 4% Lidocaine Solution Solution Solution #3 L Lat heel -Combined with other wound -Current Size (cm) - Length 1 1.3 0.1 -Current Size (cm) - Width 0.3 1.1 0.1 -Current Size (cm) - Depth 0.2 0.2 0.1 -Total Square Cm 0.3 1.43 0.01 -Photo Taken Yes No No -Epithelialization -Tunneling -Undermining/Tunneling -Circular Undermining -Exudate Amt None Present Medium Medium -Exudate Type Serosanguineous Serosanguineous Serosanguineous -Wound Margin Distinct, Distinct, Distinct, Outline Outline Outline Attached Attached Attached -Granulation Amt Small (1-33%) None Present (0 None Present (0 %) %) -Granulation Quality [place] -Slough/Fibrin -Necrosis Amt None Present (0 Large (67-100%) Large (67-100%) %) -Necrotic Tissue Type Adherent Slough Adherent Slough -Structure Exposed N/A N/A N/A -Texture (Ana-wound Skin Appearance) Localized Edema Localized Edema Scarring ,Scarring ,Scarring -Moisture (Ana-wound Skin Appearance) Assessed Weeping Weeping -Color (Ana-wound Skin Appearance) No Abnormality Erythema, Hemosiderin Hemosiderin Staining Staining -Temperature (Ana-wound Skin No Abnormality No Abnormality No Abnormality Appearance) (Pt Warm) (Pt Warm) (Pt Warm) -Tenderness on Palpation (Ana-wound No Skin Appearance) -Ulcer Cleansing Soap and Water Soap and Water Soap and Water -Foul Odor after Cleansing No No No -Anesthetic Used 4% Lidocaine 4% Lidocaine 4% Lidocaine Solution Solution Solution #2 L 3rd toe -Combined with other wound -Current Size (cm) - Length 1.5 1.3 0.1 -Current Size (cm) - Width 0.9 1.4 0.1 -Current Size (cm) - Depth 0.1 0.2 0.1 -Total Square Cm 1.35 1.82 0.01 -Photo Taken Yes No No -Epithelialization -Tunneling -Undermining/Tunneling -Circular Undermining -Exudate Amt Medium Medium Medium -Exudate Type Serosanguineous Serosanguineous Serosanguineous -Wound Margin Distinct, Distinct, Distinct, Outline Outline Outline Attached Attached Attached -Granulation Amt None Present (0 None Present (0 None Present (0 %) %) %) -Granulation Quality -Slough/Fibrin -Necrosis Amt Large (67-100%) Large (67-100%) Large (67-100%) -Necrotic Tissue Type Adherent Slough Adherent Slough Adherent Slough -Structure Exposed N/A N/A N/A -Texture (Ana-wound Skin Appearance) Localized Edema Localized Edema Scarring ,Scarring ,Scarring -Moisture (Ana-wound Skin Appearance) Maceration Weeping Weeping -Color (Ana-wound Skin Appearance) Hemosiderin Erythema, Hemosiderin Staining Hemosiderin Staining Staining -Temperature (Ana-wound Skin No Abnormality No Abnormality No Abnormality Appearance) (Pt Warm) (Pt Warm) (Pt Warm) -Tenderness on Palpation (Ana-wound No No Yes Skin Appearance) -Ulcer Cleansing Soap and Water Soap and Water Soap and Water -Foul Odor after Cleansing No No No -Anesthetic Used 4% Lidocaine 4% Lidocaine 4% Lidocaine Solution Solution Solution #1 L Hallux -Combined with other wound -Current Size (cm) - Length 2.5 2.3 0.1 -Current Size (cm) - Width 2.2 2.3 0.1 -Current Size (cm) - Depth 0.1 0.1 0.1 -Total Square Cm 5.50 5.29 0.01 -Photo Taken Yes No No -Epithelialization -Tunneling -Undermining/Tunneling -Circular Undermining -Exudate Amt Medium Medium Medium -Exudate Type Serosanguineous Serosanguineous Serosanguineous -Wound Margin Distinct, Distinct, Distinct, Outline Outline Outline Attached Attached Attached -Granulation Amt None Present (0 None Present (0 %) %) -Slough/Fibrin -Necrosis Amt Large (67-100%) Large (67-100%) -Necrotic Tissue Type Adherent Slough Adherent Slough -Structure Exposed N/A N/A -Texture (Ana-wound Skin Appearance) Localized Edema Localized Edema Scarring ,Scarring ,Scarring -Moisture (Ana-wound Skin Appearance) Dry/Scaly Weeping Weeping -Color (Ana-wound Skin Appearance) Erythema, Erythema, Hemosiderin Hemosiderin Hemosiderin Staining Staining Staining -Temperature (Ana-wound Skin No Abnormality No Abnormality No Abnormality Appearance) (Pt Warm) (Pt Warm) (Pt Warm) -Tenderness on Palpation (Ana-wound No No Yes Skin Appearance) -Ulcer Cleansing Soap and Water Soap and Water Soap and Water -Foul Odor after Cleansing No No No -Anesthetic Used 4% Lidocaine 4% Lidocaine 5% Lidocaine Solution Solution Gel Right Calf (cm) 32.4 32.4 Right Ankle (cm) 22.2 23 Left Calf (cm) 35.1 35.6 Left Ankle (cm) 25.2 24.7 02/20/22 11:30 Wound Center Nurse 1 #10 R 2nd toe -Combined with other wound No -Current Size (cm) - Length 1.6 -Current Size (cm) - Width 1.5 -Current Size (cm) - Depth 0.1 -Total Square Cm 2.40 -Photo Taken No -Epithelialization None Present -Tunneling No -Undermining/Tunneling No -Circular Undermining No -Exudate Amt None Present -Exudate Type -Wound Margin Distinct, Outline Attached -Granulation Amt None Present (0 %) -Granulation Quality -Slough/Fibrin Yes -Necrosis Amt Large (67-100%) -Necrotic Tissue Type Eschar -Structure Exposed -Texture (Ana-wound Skin Appearance) Assessed, Scarring -Moisture (Ana-wound Skin Appearance) Assessed -Color (Ana-wound Skin Appearance) Assessed, Erythema -Temperature (Ana-wound Skin No Abnormality Appearance) (Pt Warm) -Tenderness on Palpation (Ana-wound No Skin Appearance) -Ulcer Cleansing Soap and Water -Foul Odor after Cleansing No -Anesthetic Used 4% Lidocaine Solution #9 L Lat Foot -Combined with other wound No -Current Size (cm) - Length 1.4 -Current Size (cm) - Width 1 -Current Size (cm) - Depth 0.1 -Total Square Cm 1.4 -Date of Last Picture (Recall this 02/20/22 field) -Photo Taken Yes -Epithelialization None Present -Tunneling No -Undermining/Tunneling No -Circular Undermining No -Exudate Amt Medium -Exudate Type Serosanguineous -Wound Margin Distinct, Outline Attached -Granulation Amt None Present (0 %) -Granulation Quality -Slough/Fibrin Yes -Necrosis Amt Large (67-100%) -Necrotic Tissue Type Eschar -Structure Exposed -Texture (Ana-wound Skin Appearance) Assessed, Scarring -Moisture (Ana-wound Skin Appearance) Assessed, Maceration -Color (Ana-wound Skin Appearance) Assessed, Erythema -Temperature (Ana-wound Skin No Abnormality Appearance) (Pt Warm) -Tenderness on Palpation (Ana-wound No Skin Appearance) -Ulcer Cleansing Soap and Water -Foul Odor after Cleansing No -Anesthetic Used 4% Lidocaine Solution #8 R LE Med -Combined with other wound No -Current Size (cm) - Length 3.9 -Current Size (cm) - Width 1.6 -Current Size (cm) - Depth 0.1 -Total Square Cm 6.24 -Photo Taken No -Epithelialization None Present -Tunneling No -Undermining/Tunneling No -Circular Undermining No -Exudate Amt Medium -Exudate Type Serosanguineous -Wound Margin Distinct, Outline Attached -Granulation Amt Small (1-33%) -Granulation Quality Red -Slough/Fibrin Yes -Necrosis Amt Large (67-100%) -Necrotic Tissue Type Adherent Slough -Structure Exposed -Texture (Ana-wound Skin Appearance) Assessed, Scarring -Moisture (Ana-wound Skin Appearance) Assessed, Maceration -Color (Ana-wound Skin Appearance) Assessed, Erythema -Temperature (Ana-wound Skin No Abnormality Appearance) (Pt Warm) -Tenderness on Palpation (Ana-wound No Skin Appearance) -Ulcer Cleansing Soap and Water -Foul Odor after Cleansing No -Anesthetic Used 4% Lidocaine Solution #7 R Inf. LE -Combined with other wound No -Current Size (cm) - Length 6 -Current Size (cm) - Width 5.7 -Current Size (cm) - Depth 0.3 -Total Square Cm 34.2 -Photo Taken No -Epithelialization None Present -Tunneling No -Undermining/Tunneling No -Circular Undermining No -Exudate Amt Medium -Exudate Type Serosanguineous -Wound Margin Distinct, Outline Attached -Granulation Amt Large (67-100%) -Granulation Quality Red -Slough/Fibrin Yes -Necrosis Amt Medium (34-66%) -Necrotic Tissue Type Adherent Slough -Structure Exposed -Texture (Ana-wound Skin Appearance) Assessed, Scarring -Moisture (Ana-wound Skin Appearance) Assessed, Maceration -Color (Ana-wound Skin Appearance) Assessed, Erythema -Temperature (Ana-wound Skin No Abnormality Appearance) (Pt Warm) -Tenderness on Palpation (Ana-wound No Skin Appearance) -Ulcer Cleansing Soap and Water -Foul Odor after Cleansing No -Anesthetic Used 4% Lidocaine Solution #6 R Sup LE -Combined with other wound No -Current Size (cm) - Length 1.6 -Current Size (cm) - Width 0.5 -Current Size (cm) - Depth 0.1 -Total Square Cm 0.80 -Photo Taken No -Epithelialization None Present -Tunneling No -Undermining/Tunneling No -Circular Undermining No -Exudate Amt Medium -Exudate Type Serosanguineous -Wound Margin Distinct, Outline Attached -Granulation Amt Small (1-33%) -Granulation Quality Red -Slough/Fibrin Yes -Necrosis Amt Medium (34-66%) -Necrotic Tissue Type Adherent Slough -Structure Exposed -Texture (Ana-wound Skin Appearance) Assessed, Scarring -Moisture (Ana-wound Skin Appearance) Assessed, Maceration -Color (Ana-wound Skin Appearance) Assessed, Erythema -Temperature (Ana-wound Skin No Abnormality Appearance) (Pt Warm) -Tenderness on Palpation (Ana-wound No Skin Appearance) -Ulcer Cleansing Soap and Water -Foul Odor after Cleansing No -Anesthetic Used 4% Lidocaine Solution #5 R Dorsal -Combined with other wound No -Current Size (cm) - Length 1.7 -Current Size (cm) - Width 1.4 -Current Size (cm) - Depth 0.3 -Total Square Cm 2.38 -Photo Taken No -Epithelialization None Present -Tunneling No -Undermining/Tunneling No -Circular Undermining No -Exudate Amt Medium -Exudate Type Serosanguineous -Wound Margin Distinct, Outline Attached -Granulation Amt Small (1-33%) -Granulation Quality Red -Slough/Fibrin Yes -Necrosis Amt Medium (34-66%) -Necrotic Tissue Type Adherent Slough -Structure Exposed -Texture (Ana-wound Skin Appearance) Assessed, Scarring -Moisture (Ana-wound Skin Appearance) Assessed, Maceration -Color (Ana-wound Skin Appearance) Assessed, Erythema -Temperature (Ana-wound Skin No Abnormality Appearance) (Pt Warm) -Tenderness on Palpation (Ana-wound No Skin Appearance) -Ulcer Cleansing Soap and Water -Foul Odor after Cleansing No -Anesthetic Used 4% Lidocaine Solution #4 L Med Cluster -Combined with other wound No -Current Size (cm) - Length 10.0 -Current Size (cm) - Width 1.1 -Current Size (cm) - Depth 0.3 -Total Square Cm 11.00 -Photo Taken No -Epithelialization None Present -Tunneling No -Undermining/Tunneling No -Circular Undermining No -Exudate Amt Medium -Exudate Type Serosanguineous -Wound Margin Distinct, Outline Attached -Granulation Amt Medium (34-66%) -Granulation Quality Red -Slough/Fibrin Yes -Necrosis Amt Medium (34-66%) -Necrotic Tissue Type Adherent Slough -Structure Exposed -Texture (Ana-wound Skin Appearance) Assessed, Scarring -Moisture (Ana-wound Skin Appearance) Assessed, Maceration -Color (Ana-wound Skin Appearance) Assessed, Erythema -Temperature (Ana-wound Skin No Abnormality Appearance) (Pt Warm) -Tenderness on Palpation (Ana-wound No Skin Appearance) -Ulcer Cleansing Soap and Water -Foul Odor after Cleansing No -Anesthetic Used 4% Lidocaine Solution #3 L Lat heel -Combined with other wound No -Current Size (cm) - Length 1.9 -Current Size (cm) - Width 1.5 -Current Size (cm) - Depth 0.1 -Total Square Cm 2.85 -Photo Taken No -Epithelialization None Present -Tunneling No -Undermining/Tunneling No -Circular Undermining No -Exudate Amt Small -Exudate Type Serosanguineous -Wound Margin Distinct, Outline Attached -Granulation Amt None Present (0 %) -Granulation Quality -Slough/Fibrin Yes -Necrosis Amt Large (67-100%) -Necrotic Tissue Type Eschar -Structure Exposed -Texture (Ana-wound Skin Appearance) Assessed, Scarring -Moisture (Ana-wound Skin Appearance) Assessed -Color (Ana-wound Skin Appearance) Assessed, Erythema -Temperature (Ana-wound Skin No Abnormality Appearance) (Pt Warm) -Tenderness on Palpation (Ana-wound No Skin Appearance) -Ulcer Cleansing Soap and Water -Foul Odor after Cleansing No -Anesthetic Used 4% Lidocaine Solution #2 L 3rd toe -Combined with other wound No -Current Size (cm) - Length 3.0 -Current Size (cm) - Width 1.5 -Current Size (cm) - Depth 0.1 -Total Square Cm 4.50 -Photo Taken No -Epithelialization None Present -Tunneling No -Undermining/Tunneling No -Circular Undermining No -Exudate Amt Medium -Exudate Type Serosanguineous -Wound Margin Distinct, Outline Attached -Granulation Amt Medium (34-66%) -Granulation Quality Red -Slough/Fibrin Yes -Necrosis Amt Medium (34-66%) -Necrotic Tissue Type Adherent Slough -Structure Exposed -Texture (Ana-wound Skin Appearance) Assessed, Scarring -Moisture (Ana-wound Skin Appearance) Assessed, Maceration -Color (Ana-wound Skin Appearance) Assessed, Erythema -Temperature (Ana-wound Skin No Abnormality Appearance) (Pt Warm) -Tenderness on Palpation (Ana-wound No Skin Appearance) -Ulcer Cleansing Soap and Water -Foul Odor after Cleansing No -Anesthetic Used 4% Lidocaine Solution #1 L Hallux -Combined with other wound No -Current Size (cm) - Length 4.4 -Current Size (cm) - Width 4.5 -Current Size (cm) - Depth 0.1 -Total Square Cm 19.80 -Photo Taken No -Epithelialization None Present -Tunneling No -Undermining/Tunneling No -Circular Undermining No -Exudate Amt Medium -Exudate Type Serosanguineous -Wound Margin Distinct, Outline Attached -Granulation Amt None Present (0 %) -Slough/Fibrin Yes -Necrosis Amt Large (67-100%) -Necrotic Tissue Type Eschar -Structure Exposed -Texture (Ana-wound Skin Appearance) Assessed, Scarring -Moisture (Ana-wound Skin Appearance) Assessed, Maceration -Color (Ana-wound Skin Appearance) Assessed, Erythema -Temperature (Ana-wound Skin No Abnormality Appearance) (Pt Warm) -Tenderness on Palpation (Ana-wound No Skin Appearance) -Ulcer Cleansing Soap and Water -Foul Odor after Cleansing No -Anesthetic Used 4% Lidocaine Solution Right Calf (cm) 36.8 Right Ankle (cm) 23.5 Left Calf (cm) 36.5 Left Ankle (cm) 25.5 WC - Nurse 2 - General Ulcer CM Notes Start: 02/01/22 08:00 Freq: Status: Active Protocol: Activity Type Activity Date Activity User E-sign Co-sign Detail Recorded Client Recorded Date Recorded By Document 02/01/22 08:31 MW [id number] 02/01/22 08:58 MW Document 02/08/22 09:06 MW [id number] 02/08/22 09:51 MW Edit Result 02/08/22 09:06 MW (1) [id number] 02/09/22 07:31 PL Document 02/15/22 08:39 MW [id number] 02/15/22 09:04 MW Document 02/20/22 11:59 JF [id number] 02/20/22 12:10 JF (1) #10 R 2nd toe - Debridement, SubQ, ea addt'l 20sq cm 2 => 3 or part thereof 02/01/22 02/08/22 02/15/22 08:31 09:06 08:39 Wound Center Nurse 2 #10 R 2nd toe -Time 08: 09:27 08:40 -Correct Patient Yes Yes Yes -Correct Side, Site, Position Yes Yes Yes -Correct Procedure Yes Yes Yes -Procedure Performed Yes Yes Yes -Type of Procedure Debridement Debridement Debridement -Clinical Debridement Subcutaneous Subcutaneous Subcutaneous -Tissue Removed Subcutaneous Subcutaneous Subcutaneous -Post Debridement (cm) - Length 1.5 1.2 0.8 -Post Debridement (cm) - Width 0.9 1.2 0.5 -Post Debridement (cm) - Depth 0.1 0.1 0.1 -Total Square (Post) (cm) 1.35 1.44 0.40 -Area of Debridement (cm) - Length 1.5 1.2 0.8 -Area of Debridement (cm) - Width 0.9 1.2 0.5 -Total Square (Area) (cm) 1.35 1.44 0.40 -Tunneling No No No -Undermining/Tunneling No No No -Circular Undermining No No No -Wound/Ulcer Outcome Not Healed Not Healed Not Healed -Ulcer Cleansing Rinsed/ Rinsed/ Rinsed/ Irrigated with Irrigated with Irrigated with Saline Saline Saline -Foul Odor after Cleansing No No No -Bioengineered Tissue No No No -Bleeding Controlled with Pressure Pressure Pressure -Treatment Response Procedure Procedure Procedure Tolerated Well Tolerated Well Tolerated Well -Offloading No No No -Debridement - Subq, 1st 20sq cm Yes Yes Yes -Debridement, SubQ, ea addt'l 20sq cm 1 3 2 or part thereof #9 L Lat Foot -Time 08: 09:27 08:40 -Correct Patient Yes Yes Yes -Correct Side, Site, Position Yes Yes Yes -Correct Procedure Yes Yes Yes -Procedure Performed Yes Yes Yes -Type of Procedure Debridement Debridement Debridement -Clinical Debridement Subcutaneous Subcutaneous Subcutaneous -Tissue Removed Subcutaneous Subcutaneous Subcutaneous -Post Debridement (cm) - Length 1.0 1.0 1.0 -Post Debridement (cm) - Width 0.6 0.8 1.0 -Post Debridement (cm) - Depth 0.1 0.1 0.1 -Total Square (Post) (cm) 0.60 0.80 1.00 -Area of Debridement (cm) - Length 1.0 1.0 1.0 -Area of Debridement (cm) - Width 0.6 0.8 1.0 -Total Square (Area) (cm) 0.60 0.80 1.00 -Tunneling No No No -Undermining/Tunneling No No No -Circular Undermining No No No -Wound/Ulcer Outcome Not Healed Not Healed Not Healed -Ulcer Cleansing Rinsed/ Rinsed/ Rinsed/ Irrigated with Irrigated with Irrigated with Saline Saline Saline -Foul Odor after Cleansing No No No -Bioengineered Tissue No No No -Bleeding Controlled with Pressure Pressure Pressure -Treatment Response Procedure Procedure Procedure Tolerated Well Tolerated Well Tolerated Well -Offloading No No No -Debridement - Subq, 1st 20sq cm No No No #8 R LE Med -Time 08: 09:27 08:41 -Correct Patient Yes Yes Yes -Correct Side, Site, Position Yes Yes Yes -Correct Procedure Yes Yes Yes -Procedure Performed Yes Yes Yes -Type of Procedure Debridement Debridement Debridement -Clinical Debridement Subcutaneous Subcutaneous Subcutaneous -Tissue Removed Subcutaneous Subcutaneous Subcutaneous -Post Debridement (cm) - Length 3.2 3.4 3.5 -Post Debridement (cm) - Width 1.5 1.8 1.5 -Post Debridement (cm) - Depth 0.1 0.1 0.1 -Total Square (Post) (cm) 4.80 6.12 5.25 -Area of Debridement (cm) - Length 3.2 3.4 3.5 -Area of Debridement (cm) - Width 1.5 1.8 1.5 -Total Square (Area) (cm) 4.80 6.12 5.25 -Tunneling No No No -Undermining/Tunneling No No No -Circular Undermining No No No -Wound/Ulcer Outcome Not Healed Not Healed Not Healed -Ulcer Cleansing Rinsed/ Rinsed/ Rinsed/ Irrigated with Irrigated with Irrigated with Saline Saline Saline -Foul Odor after Cleansing No No No -Bioengineered Tissue No No No -Bleeding Controlled with Pressure Pressure Pressure -Treatment Response Procedure Procedure Procedure Tolerated Well Tolerated Well Tolerated Well -Offloading No No No -Debridement - Subq, 1st 20sq cm No No No #7 R Inf. LE -Time 08: 09:28 08:43 -Correct Patient Yes Yes Yes -Correct Side, Site, Position Yes Yes Yes -Correct Procedure Yes Yes Yes -Procedure Performed Yes Yes Yes -Type of Procedure Debridement Debridement Debridement -Clinical Debridement Subcutaneous Subcutaneous Subcutaneous -Tissue Removed Subcutaneous Subcutaneous Subcutaneous -Post Debridement (cm) - Length 3.0 3.0 3.2 -Post Debridement (cm) - Width 1.5 1.5 2.0 -Post Debridement (cm) - Depth 0.1 0.2 0.2 -Total Square (Post) (cm) 4.50 4.50 6.40 -Area of Debridement (cm) - Length 3.0 3.0 3.2 -Area of Debridement (cm) - Width 1.5 1.5 2.0 -Total Square (Area) (cm) 4.50 4.50 6.40 -Tunneling No No No -Undermining/Tunneling No No No -Circular Undermining No No No -Wound/Ulcer Outcome Not Healed Not Healed Not Healed -Ulcer Cleansing Rinsed/ Rinsed/ Rinsed/ Irrigated with Irrigated with Irrigated with Saline Saline Saline -Foul Odor after Cleansing No No No -Bioengineered Tissue No No No -Bleeding Controlled with Pressure Pressure Pressure -Treatment Response Procedure Procedure Procedure Tolerated Well Tolerated Well Tolerated Well -Offloading No No No -Debridement - Subq, 1st 20sq cm No No No #6 R Sup LE -Time 08:34 09:28 08:43 -Correct Patient Yes Yes Yes -Correct Side, Site, Position Yes Yes Yes -Correct Procedure Yes Yes Yes -Procedure Performed Yes Yes Yes -Type of Procedure Debridement Debridement Debridement -Clinical Debridement Subcutaneous Subcutaneous Subcutaneous -Tissue Removed Subcutaneous Subcutaneous Subcutaneous -Post Debridement (cm) - Length 2.0 1.5 1.4 -Post Debridement (cm) - Width 0.6 0.4 0.6 -Post Debridement (cm) - Depth 0.1 0.1 0.1 -Total Square (Post) (cm) 1.20 0.60 0.84 -Area of Debridement (cm) - Length 2.0 1.5 1.4 -Area of Debridement (cm) - Width 0.6 0.4 0.6 -Total Square (Area) (cm) 1.20 0.60 0.84 -Tunneling No No No -Undermining/Tunneling No No No -Circular Undermining No No No -Wound/Ulcer Outcome Not Healed Not Healed Not Healed -Ulcer Cleansing Rinsed/ Rinsed/ Rinsed/ Irrigated with Irrigated with Irrigated with Saline Saline Saline -Foul Odor after Cleansing No No No -Bioengineered Tissue No No No -Bleeding Controlled with Pressure Pressure Pressure -Treatment Response Procedure Procedure Procedure Tolerated Well Tolerated Well Tolerated Well -Offloading No No No -Debridement - Subq, 1st 20sq cm No No No #5 R Dorsal -Time : 09: 08:43 -Correct Patient Yes Yes Yes -Correct Side, Site, Position Yes Yes Yes -Correct Procedure Yes Yes Yes -Procedure Performed Yes Yes Yes -Type of Procedure Debridement Debridement Debridement -Clinical Debridement Subcutaneous Subcutaneous Subcutaneous -Tissue Removed Subcutaneous Subcutaneous Subcutaneous -Post Debridement (cm) - Length 1.5 1.6 1.5 -Post Debridement (cm) - Width 1.4 1.4 1.4 -Post Debridement (cm) - Depth 0.3 0.3 0.3 -Total Square (Post) (cm) 2.10 2.24 2.10 -Area of Debridement (cm) - Length 1.5 1.6 1.5 -Area of Debridement (cm) - Width 1.4 1.4 1.4 -Total Square (Area) (cm) 2.10 2.24 2.10 -Tunneling No No No -Undermining/Tunneling No No No -Circular Undermining No No No -Wound/Ulcer Outcome Not Healed Not Healed Not Healed -Ulcer Cleansing Rinsed/ Rinsed/ Rinsed/ Irrigated with Irrigated with Irrigated with Saline Saline Saline -Foul Odor after Cleansing No No No -Bioengineered Tissue No No No -Bleeding Controlled with Pressure Pressure Pressure -Treatment Response Procedure Procedure Procedure Tolerated Well Tolerated Well Tolerated Well -Offloading No No No -Debridement - Subq, 1st 20sq cm No No No #4 L Med Cluster -Time : 09:28 08:44 -Correct Patient Yes Yes Yes -Correct Side, Site, Position Yes Yes Yes -Correct Procedure Yes Yes Yes -Procedure Performed Yes Yes Yes -Type of Procedure Debridement Debridement Debridement -Clinical Debridement Subcutaneous Subcutaneous Subcutaneous -Tissue Removed Subcutaneous Subcutaneous Subcutaneous -Post Debridement (cm) - Length 10.4 10.3 10.5 -Post Debridement (cm) - Width 1.0 1.0 1.2 -Post Debridement (cm) - Depth 0.1 0.1 0.1 -Total Square (Post) (cm) 10.40 10.30 12.60 -Area of Debridement (cm) - Length 10.4 10.3 10.5 -Area of Debridement (cm) - Width 1.0 1.0 1.2 -Total Square (Area) (cm) 10.40 10.30 12.60 -Tunneling No No No -Undermining/Tunneling No No No -Circular Undermining No No No -Wound/Ulcer Outcome Not Healed Not Healed Not Healed -Ulcer Cleansing Rinsed/ Rinsed/ Rinsed/ Irrigated with Irrigated with Irrigated with Saline Saline Saline -Foul Odor after Cleansing No No No -Bioengineered Tissue No No No -Bleeding Controlled with Pressure Pressure Pressure -Treatment Response Procedure Procedure Procedure Tolerated Well Tolerated Well Tolerated Well -Offloading No No No -Debridement - Subq, 1st 20sq cm No No No #3 L Lat heel -Time 08:35 09:28 08:44 -Correct Patient Yes Yes Yes -Correct Side, Site, Position Yes Yes Yes -Correct Procedure Yes Yes Yes -Procedure Performed Yes Yes Yes -Type of Procedure Debridement Debridement Debridement -Clinical Debridement Subcutaneous Subcutaneous Subcutaneous -Tissue Removed Subcutaneous Subcutaneous Subcutaneous -Post Debridement (cm) - Length 1.0 1.5 1.5 -Post Debridement (cm) - Width 0.7 1.2 1.0 -Post Debridement (cm) - Depth 0.1 0.1 0.1 -Total Square (Post) (cm) 0.70 1.80 1.50 -Area of Debridement (cm) - Length 1.0 1.5 1.5 -Area of Debridement (cm) - Width 0.7 1.2 1.0 -Total Square (Area) (cm) 0.70 1.80 1.50 -Tunneling No No No -Undermining/Tunneling No No No -Circular Undermining No No No -Wound/Ulcer Outcome Not Healed Not Healed Not Healed -Ulcer Cleansing Rinsed/ Rinsed/ Rinsed/ Irrigated with Irrigated with Irrigated with Saline Saline Saline -Foul Odor after Cleansing No No No -Bioengineered Tissue No No No -Bleeding Controlled with Pressure Pressure Pressure -Treatment Response Procedure Procedure Procedure Tolerated Well Tolerated Well Tolerated Well -Offloading No No No -Debridement - Subq, 1st 20sq cm No No No #2 L 3rd toe -Time 08:35 09:28 08:44 -Correct Patient Yes Yes Yes -Correct Side, Site, Position Yes Yes Yes -Correct Procedure Yes Yes Yes -Procedure Performed Yes Yes Yes -Type of Procedure Debridement Debridement Debridement -Clinical Debridement Subcutaneous Subcutaneous Subcutaneous -Tissue Removed Subcutaneous Subcutaneous Subcutaneous -Post Debridement (cm) - Length 1.5 4.0 4.5 -Post Debridement (cm) - Width 0.6 3.0 3.0 -Post Debridement (cm) - Depth 0.1 0.1 0.1 -Total Square (Post) (cm) 0.90 12.00 13.50 -Area of Debridement (cm) - Length 1.5 4.0 4.5 -Area of Debridement (cm) - Width 0.6 3.0 3.0 -Total Square (Area) (cm) 0.90 12.00 13.50 -Tunneling No No No -Undermining/Tunneling No No No -Circular Undermining No No No -Wound/Ulcer Outcome Not Healed Not Healed Not Healed -Ulcer Cleansing Rinsed/ Rinsed/ Rinsed/ Irrigated with Irrigated with Irrigated with Saline Saline Saline -Foul Odor after Cleansing No No No -Bioengineered Tissue No No No -Bleeding Controlled with Pressure Pressure Pressure -Treatment Response Procedure Procedure Procedure Tolerated Well Tolerated Well Tolerated Well -Offloading No No No -Debridement - Subq, 1st 20sq cm No No No #1 L Hallux -Time 08:36 09:29 08:45 -Correct Patient Yes Yes Yes -Correct Side, Site, Position Yes Yes Yes -Correct Procedure Yes Yes Yes -Procedure Performed Yes Yes Yes -Type of Procedure Debridement Debridement Debridement -Clinical Debridement Subcutaneous Subcutaneous Subcutaneous -Tissue Removed Subcutaneous Subcutaneous Subcutaneous -Post Debridement (cm) - Length 2.5 3.0 3.5 -Post Debridement (cm) - Width 2.4 3.0 4.0 -Post Debridement (cm) - Depth 0.1 0.1 0.1 -Total Square (Post) (cm) 6.00 9.00 14.00 -Area of Debridement (cm) - Length 2.5 3.0 3.5 -Area of Debridement (cm) - Width 2.4 3.0 4.0 -Total Square (Area) (cm) 6.00 9.00 14.00 -Tunneling No No No -Undermining/Tunneling No No No -Circular Undermining No No No -Wound/Ulcer Outcome Not Healed Not Healed Not Healed -Ulcer Cleansing Rinsed/ Rinsed/ Rinsed/ Irrigated with Irrigated with Irrigated with Saline Saline Saline -Foul Odor after Cleansing No No No -Bioengineered Tissue No No No -Bleeding Controlled with Pressure Pressure Pressure -Treatment Response Procedure Procedure Procedure Tolerated Well Tolerated Well Tolerated Well -Offloading No No No -Debridement - Subq, 1st 20sq cm No No No Pain Scale: 0-10 Numeric Is Patient Pain Free? Yes Yes Yes 02/20/22 11:59 Wound Center Nurse 2 #10 R 2nd toe -Time -Correct Patient No -Correct Side, Site, Position No -Correct Procedure No -Procedure Performed No -Type of Procedure -Clinical Debridement -Tissue Removed -Post Debridement (cm) - Length -Post Debridement (cm) - Width -Post Debridement (cm) - Depth -Total Square (Post) (cm) -Area of Debridement (cm) - Length -Area of Debridement (cm) - Width -Total Square (Area) (cm) -Tunneling -Undermining/Tunneling -Circular Undermining -Wound/Ulcer Outcome Not Healed -Ulcer Cleansing -Foul Odor after Cleansing -Bioengineered Tissue -Bleeding Controlled with -Treatment Response -Offloading -Debridement - Subq, 1st 20sq cm -Debridement, SubQ, ea addt'l 20sq cm or part thereof #9 L Lat Foot -Time -Correct Patient No -Correct Side, Site, Position No -Correct Procedure No -Procedure Performed No -Type of Procedure -Clinical Debridement -Tissue Removed -Post Debridement (cm) - Length -Post Debridement (cm) - Width -Post Debridement (cm) - Depth -Total Square (Post) (cm) -Area of Debridement (cm) - Length -Area of Debridement (cm) - Width -Total Square (Area) (cm) -Tunneling -Undermining/Tunneling -Circular Undermining -Wound/Ulcer Outcome Not Healed -Ulcer Cleansing -Foul Odor after Cleansing -Bioengineered Tissue -Bleeding Controlled with -Treatment Response -Offloading -Debridement - Subq, 1st 20sq cm #8 R LE Med -Time -Correct Patient No -Correct Side, Site, Position No -Correct Procedure No -Procedure Performed No -Type of Procedure -Clinical Debridement -Tissue Removed -Post Debridement (cm) - Length -Post Debridement (cm) - Width -Post Debridement (cm) - Depth -Total Square (Post) (cm) -Area of Debridement (cm) - Length -Area of Debridement (cm) - Width -Total Square (Area) (cm) -Tunneling -Undermining/Tunneling -Circular Undermining -Wound/Ulcer Outcome Not Healed -Ulcer Cleansing -Foul Odor after Cleansing -Bioengineered Tissue -Bleeding Controlled with -Treatment Response -Offloading -Debridement - Subq, 1st 20sq cm #7 R Inf. LE -Time -Correct Patient No -Correct Side, Site, Position No -Correct Procedure No -Procedure Performed No -Type of Procedure -Clinical Debridement -Tissue Removed -Post Debridement (cm) - Length -Post Debridement (cm) - Width -Post Debridement (cm) - Depth -Total Square (Post) (cm) -Area of Debridement (cm) - Length -Area of Debridement (cm) - Width -Total Square (Area) (cm) -Tunneling -Undermining/Tunneling -Circular Undermining -Wound/Ulcer Outcome Not Healed -Ulcer Cleansing -Foul Odor after Cleansing -Bioengineered Tissue -Bleeding Controlled with -Treatment Response -Offloading -Debridement - Subq, 1st 20sq cm #6 R Sup LE -Time -Correct Patient No -Correct Side, Site, Position No -Correct Procedure No -Procedure Performed No -Type of Procedure -Clinical Debridement -Tissue Removed -Post Debridement (cm) - Length -Post Debridement (cm) - Width -Post Debridement (cm) - Depth -Total Square (Post) (cm) -Area of Debridement (cm) - Length -Area of Debridement (cm) - Width -Total Square (Area) (cm) -Tunneling -Undermining/Tunneling -Circular Undermining -Wound/Ulcer Outcome Not Healed -Ulcer Cleansing -Foul Odor after Cleansing -Bioengineered Tissue -Bleeding Controlled with -Treatment Response -Offloading -Debridement - Subq, 1st 20sq cm #5 R Dorsal -Time -Correct Patient No -Correct Side, Site, Position No -Correct Procedure No -Procedure Performed No -Type of Procedure -Clinical Debridement -Tissue Removed -Post Debridement (cm) - Length -Post Debridement (cm) - Width -Post Debridement (cm) - Depth -Total Square (Post) (cm) -Area of Debridement (cm) - Length -Area of Debridement (cm) - Width -Total Square (Area) (cm) -Tunneling -Undermining/Tunneling -Circular Undermining -Wound/Ulcer Outcome Not Healed -Ulcer Cleansing -Foul Odor after Cleansing -Bioengineered Tissue -Bleeding Controlled with -Treatment Response -Offloading -Debridement - Subq, 20sq cm #4 L Med Cluster -Time -Correct Patient No -Correct Side, Site, Position No -Correct Procedure No -Procedure Performed No -Type of Procedure -Clinical Debridement -Tissue Removed -Post Debridement (cm) - Length -Post Debridement (cm) - Width -Post Debridement (cm) - Depth -Total Square (Post) (cm) -Area of Debridement (cm) - Length -Area of Debridement (cm) - Width -Total Square (Area) (cm) -Tunneling -Undermining/Tunneling -Circular Undermining -Wound/Ulcer Outcome Not Healed -Ulcer Cleansing -Foul Odor after Cleansing -Bioengineered Tissue -Bleeding Controlled with -Treatment Response -Offloading -Debridement - Subq, 20sq cm #3 L Lat heel -Time -Correct Patient No -Correct Side, Site, Position No -Correct Procedure No -Procedure Performed No -Type of Procedure -Clinical Debridement -Tissue Removed -Post Debridement (cm) - Length -Post Debridement (cm) - Width -Post Debridement (cm) - Depth -Total Square (Post) (cm) -Area of Debridement (cm) - Length -Area of Debridement (cm) - Width -Total Square (Area) (cm) -Tunneling -Undermining/Tunneling -Circular Undermining -Wound/Ulcer Outcome Not Healed -Ulcer Cleansing -Foul Odor after Cleansing -Bioengineered Tissue -Bleeding Controlled with -Treatment Response -Offloading -Debridement - Subq, 20sq cm #2 L 3rd toe -Time -Correct Patient No -Correct Side, Site, Position No -Correct Procedure No -Procedure Performed No -Type of Procedure -Clinical Debridement -Tissue Removed -Post Debridement (cm) - Length -Post Debridement (cm) - Width -Post Debridement (cm) - Depth -Total Square (Post) (cm) -Area of Debridement (cm) - Length -Area of Debridement (cm) - Width -Total Square (Area) (cm) -Tunneling -Undermining/Tunneling -Circular Undermining -Wound/Ulcer Outcome Not Healed -Ulcer Cleansing -Foul Odor after Cleansing -Bioengineered Tissue -Bleeding Controlled with -Treatment Response -Offloading -Debridement - Subq, 20sq cm #1 L Hallux -Time -Correct Patient No -Correct Side, Site, Position No -Correct Procedure No -Procedure Performed No -Type of Procedure -Clinical Debridement -Tissue Removed -Post Debridement (cm) - Length -Post Debridement (cm) - Width -Post Debridement (cm) - Depth -Total Square (Post) (cm) -Area of Debridement (cm) - Length -Area of Debridement (cm) - Width -Total Square (Area) (cm) -Tunneling -Undermining/Tunneling -Circular Undermining -Wound/Ulcer Outcome Not Healed -Ulcer Cleansing -Foul Odor after Cleansing -Bioengineered Tissue -Bleeding Controlled with -Treatment Response -Offloading -Debridement - Subq, 1st 20sq cm Pain Scale: 0-10 Numeric Is Patient Pain Free? Yes WC - Nurse 3 - General Ulcer D/C NN Start: 02/01/22 08:00 Freq: Status: Active Protocol: Activity Type Activity Date Activity User E-sign Co-sign Detail Recorded Client Recorded Date Recorded By Document 02/01/22 09:10 [facility] [id number] 02/01/22 09:18 [facility] Document 02/08/22 10:01 DL [id number] 02/08/22 10:13 DL Document 02/15/22 09:25 DL [id number] 02/15/22 09:28 DL Document 02/20/22 12:21 [facility] [id number] 02/20/22 12:25 [facility] 02/01/22 02/08/22 02/15/22 09:10 10:01 09:25 Wound Care Nurse 3 #10 R 2nd toe -Ulcer Cleansing Rinsed/ Soap and Water Irrigated with Saline -Foul Odor after Cleansing No No No -Primary Dressing Applied Aquacel Extra Aquacel Extra, Aquacel Extra Optilok 6.5x10 -Other Dressing DRSG PER MT RN -Primary Dressing Covered/Secured with Dry Gauze Dry Gauze & Dry Gauze & Roll Gauze, Roll Gauze, Secured with Secured with Tape Tape -Other Covering ABD -Aquacel Extra 3 3 2 -Optilok 6.5x10 1 #9 L Lat Foot -Ulcer Cleansing Rinsed/ Soap and Water Rinsed/ Irrigated with Irrigated with Saline Saline -Foul Odor after Cleansing No No No -Primary Dressing Applied Aquacel Extra Optilok 6.5x10 Aquacel Extra -Other Dressing ABD aquacel ex -Primary Dressing Covered/Secured with Dry Gauze Dry Gauze & Dry Gauze & Roll Gauze, Roll Gauze, Secured with Secured with Tape Tape -Other Covering PER MT RN sivakumar -Aquacel Extra 0 0 -Optilok 6.5x10 1 #8 R LE Med -Ulcer Cleansing Rinsed/ Soap and Water Rinsed/ Irrigated with Irrigated with Saline Saline -Foul Odor after Cleansing No No No -Primary Dressing Applied Aquacel Extra Aquacel Extra -Other Dressing DRSG PER GA RN aquacel exsuperabsorber -Primary Dressing Covered/Secured with Dry Gauze & Dry Gauze & Roll Gauze, Roll Gauze, Secured with Secured with Tape Tape -Other Covering ABD sivakumar -Aquacel Extra 0 0 -Aquacel AG 4x4 #7 R Inf. LE -Ulcer Cleansing Rinsed/ Soap and Water Rinsed/ Irrigated with Irrigated with Saline Saline -Foul Odor after Cleansing No No No -Primary Dressing Applied Aquacel Extra Aquacel Extra -Other Dressing ABD, DRSG PER aquacel ex/ GA RN superabsorber -Primary Dressing Covered/Secured with Dry Gauze & Dry Gauze & Roll Gauze, Roll Gauze, Secured with Secured with Tape Tape -Other Covering sivakumar -Aquacel Extra 0 0 -Aquacel AG 4x4 #6 R Sup LE -Ulcer Cleansing Rinsed/ Soap and Water Rinsed/ Irrigated with Irrigated with Saline Saline -Foul Odor after Cleansing No No No -Primary Dressing Applied Aquacel Extra Aquacel Extra -Other Dressing DRSG PER GA RN aquacel ex/ super abosrber -Primary Dressing Covered/Secured with Dry Gauze & Dry Gauze & Roll Gauze, Roll Gauze, Secured with Secured with Tape Tape -Other Covering ABD, sivakumar -Aquacel Extra 0 0 -Aquacel AG 4x4 #5 R Dorsal -Ulcer Cleansing Rinsed/ Soap and Water Rinsed/ Irrigated with Irrigated with Saline Saline -Foul Odor after Cleansing No No No -Primary Dressing Applied Aquacel Extra Aquacel Extra -Other Dressing ABD aquacel ex/ supber absorber -Primary Dressing Covered/Secured with Dry Gauze & Dry Gauze & Roll Gauze, Roll Gauze, Secured with Secured with Tape Tape -Other Covering DRSG PER GA RN sivakumar -Aquacel Extra 0 0 #4 L Med Cluster -Ulcer Cleansing Rinsed/ Soap and Water Rinsed/ Irrigated with Irrigated with Saline Saline -Foul Odor after Cleansing No No No -Primary Dressing Applied Aquacel Extra Aquacel Extra -Other Dressing DRSG PER GA RN aquacel Ex / super absorber -Primary Dressing Covered/Secured with Dry Gauze & Dry Gauze & Roll Gauze, Roll Gauze, Secured with Secured with Tape Tape -Other Covering ABD sivakumar -Aquacel Extra 0 0 -Aquacel AG 4x4 #3 L Lat heel -Ulcer Cleansing Rinsed/ Soap and Water Rinsed/ Irrigated with Irrigated with Saline Saline -Foul Odor after Cleansing No No No -Primary Dressing Applied Aquacel Extra Aquacel Extra -Other Dressing HEEL HAT, DRSG aquacel ex/ PER GA RN super absorber -Primary Dressing Covered/Secured with Dry Gauze & Dry Gauze & Roll Gauze Roll Gauze, Secured with Tape -Other Covering sivakumar -Aquacel Extra 0 0 #2 L 3rd toe -Ulcer Cleansing Rinsed/ Soap and Water Rinsed/ Irrigated with Irrigated with Saline Saline -Foul Odor after Cleansing No No No -Primary Dressing Applied Aquacel Extra Aquacel Extra -Other Dressing DRSG PER GA RN aquacel Ex/ superabsorber -Primary Dressing Covered/Secured with Dry Gauze, Dry Gauze & Dry Gauze & Secured with Roll Gauze, Roll Gauze, Tape Secured with Secured with Tape Tape -Other Covering sivakumar -Aquacel Extra 0 0 #1 L Hallux -Ulcer Cleansing Rinsed/ Soap and Water Rinsed/ Irrigated with Irrigated with Saline Saline -Foul Odor after Cleansing No No No -Other Dressing SANTYL, DRSG aquacel Ex/ santyl PER GA RN superabsorber -Primary Dressing Covered/Secured with Dry Gauze & Dry Gauze & Dry Gauze & Roll Gauze, Roll Gauze, Roll Gauze, Secured with Secured with Secured with Tape Tape Tape -Other Covering sivakumar BLE -Multi-Layered Wrap Application Multi-Layer Multi-Layer Comp - Bilat ($ Comp - Bilat ($ ) ) -Tubular Bandage -Size of Tubigrip Used -Size E ($) -Other Treatment Response Procedure Procedure Procedure Tolerated Well Tolerated Well Tolerated Well Pain Scale: 0-10 Numeric Is Patient Pain Free? Yes Yes Yes WC - Visit Discharge Discharge Condition Stable Stable Stable Ambulatory Status Ambulatory Ambulatory Ambulatory Transportation Private Auto Private Auto Private Auto Accompanied by son Facility Type Home Health 02/20/22 12:21 Wound Care Nurse 3 #10 R 2nd toe -Ulcer Cleansing Rinsed/ Irrigated with Saline -Foul Odor after Cleansing No -Primary Dressing Applied Hysept ($) -Other Dressing -Primary Dressing Covered/Secured with Dry Gauze & Roll Gauze, Secured with Tape -Other Covering -Aquacel Extra -Optilok 6.5x10 #9 L Lat Foot -Ulcer Cleansing Rinsed/ Irrigated with Saline -Foul Odor after Cleansing No -Primary Dressing Applied -Other Dressing dakins -Primary Dressing Covered/Secured with Dry Gauze & Roll Gauze, Secured with Tape -Other Covering abd -Aquacel Extra -Optilok 6.5x10 #8 R LE Med -Ulcer Cleansing Rinsed/ Irrigated with Saline -Foul Odor after Cleansing No -Primary Dressing Applied Aquacel AG 4x4 -Other Dressing -Primary Dressing Covered/Secured with Dry Gauze & Roll Gauze, Secured with Tape -Other Covering abd -Aquacel Extra -Aquacel AG 4x4 1 #7 R Inf. LE -Ulcer Cleansing Rinsed/ Irrigated with Saline -Foul Odor after Cleansing No -Primary Dressing Applied Aquacel AG 4x4 -Other Dressing -Primary Dressing Covered/Secured with Dry Gauze & Roll Gauze, Secured with Tape -Other Covering abd -Aquacel Extra -Aquacel AG 4x4 0 #6 R Sup LE -Ulcer Cleansing Rinsed/ Irrigated with Saline -Foul Odor after Cleansing No -Primary Dressing Applied Aquacel AG 4x4 -Other Dressing abd -Primary Dressing Covered/Secured with Dry Gauze & Roll Gauze, Secured with Tape -Other Covering -Aquacel Extra -Aquacel AG 4x4 0 #5 R Dorsal -Ulcer Cleansing Rinsed/ Irrigated with Saline -Foul Odor after Cleansing No -Primary Dressing Applied -Other Dressing dakins -Primary Dressing Covered/Secured with Dry Gauze & Roll Gauze, Secured with Tape -Other Covering -Aquacel Extra #4 L Med Cluster -Ulcer Cleansing Rinsed/ Irrigated with Saline -Foul Odor after Cleansing No -Primary Dressing Applied Aquacel AG 4x4 -Other Dressing -Primary Dressing Covered/Secured with Dry Gauze & Roll Gauze, Secured with Tape -Other Covering abd -Aquacel Extra -Aquacel AG 4x4 0 #3 L Lat heel -Ulcer Cleansing Rinsed/ Irrigated with Saline -Foul Odor after Cleansing No -Primary Dressing Applied -Other Dressing dakins -Primary Dressing Covered/Secured with Dry Gauze & Roll Gauze, Secured with Tape -Other Covering heel hat -Aquacel Extra #2 L 3rd toe -Ulcer Cleansing Rinsed/ Irrigated with Saline -Foul Odor after Cleansing No -Primary Dressing Applied -Other Dressing dakins -Primary Dressing Covered/Secured with Dry Gauze & Roll Gauze, Secured with Tape -Other Covering -Aquacel Extra #1 L Hallux -Ulcer Cleansing Rinsed/ Irrigated with Saline -Foul Odor after Cleansing No -Other Dressing dakins -Primary Dressing Covered/Secured with Dry Gauze & Roll Gauze, Secured with Tape -Other Covering BLE -Multi-Layered Wrap Application -Tubular Bandage Single Layer -Size of Tubigrip Used Size E -Size E ($) 4 -Other sent extra Treatment Response Procedure Tolerated Well Pain Scale: 0-10 Numeric Is Patient Pain Free? Yes WC - Visit Discharge Discharge Condition Stable Ambulatory Status Wheelchair Transportation Private Auto Accompanied by Facility Type Longterm Care Facility Assessment/Plan Assessment/Plan (1) Peripheral vascular disease, unspecified: CODE(S): I73.9 - Peripheral vascular disease, unspecified PLAN: Exam performed recent labs/readiographs reviewd no debridement today due to to concern for arterial disease recommend avoiding compression due to arterial disease, light tubigrip used today dressed leg wounds with silver Ag, DSD and dakin's to bilateral feet. Arterial/venous studies ordered discussed that patient will likely lose left great toe due to level of necrosis and that he is high risk for proximal amputation. 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
[2022-02-27 08:00] VITALS: BP 123/83; PULSE 93; RESP 16; TEMP 35.7
--- NOTE | 2022-02-27 08:34 | PN.PCM_ITS ---
History of Present Illness Date of Service: 02/27/22 Chief Complaint: Bilateral lower extremity ulcer History of Wound: Mr. Brandt is a 76-year-old who presents to the wound center due to non healing bilateral lower extremity ulcerations. 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 Patient has a history of Type II DM, CKD, PAD. Patient has bilateral leg ulcerations, left hallux, plantar left heel and dorsal right 2nd toe wounds. He denies constitutionals at current. Denies pain. Patient non-compliant with elevating legs. No other complaints at this time. Progress of Wound: Patient taking p.o. doxycycline, ciprofloxacin. Denies any changes since previous visit. Notes improvement in swelling. Denies rest pain. Objective Data Objective Data Vital Signs: Vital Signs Temp Pulse Resp BP O2 Del Method 96.2 F L 93 16 123/83 H Room Air 02/27/22 08:00 02/27/22 08:00 02/27/22 08:00 02/27/22 08:00 02/27/22 08:00 Oxygen Delivery Method Room Air Lab / Micro Data Micro: Microbiology 02/20/22 12:08 Wound Abcess - Toe Gram Stain - Final 02/20/22 12:08 Wound Abcess - Toe Wound Culture - Final Citrobacter freundii Proteus penneri Serratia marcescens Morganella morganii sp morgani Streptococcus agalactiae (B) Enterococcus faecalis 02/20/22 12:08 Wound Abcess - Toe Anaerobic Culture - Final Anaerobic cocci Physical Exam Narrative Diminished dorsalis pedis/posterior tibial pulses. Delayed capillary fill time bilaterally. Light touch/protective sensation absent to bilateral feet. Dry gangrene to dorsal left hallux with chronic periwound ischemic changes. Focal ulcerations to dorsal second and third digit. Nonblanchable of the erythema extending into the forefoot region. Mild serous drainage from sites. Dry gangrene dorsal aspect right second digit. Multiple full-thickness ulcerations to bilateral legs. Punched-out ulceration dorsal lateral right forefoot. Necrotic ulceration plantar right fifth metatarsal head. All wounds stable at this time. Secondary to chronic ischemia. No gross wound forming deformity, no signs of DVT. Debridement Note Debridement Note Post-Debridement Measurements and Additional Note: Post-Debridement Measurements/Treatment DAVID - Nurse 1 - General Ulcer Assessment Start: 02/01/22 08:00 Freq: Status: Active Protocol: ILENEEXT Activity Type Activity Date Activity User E-sign Co-sign Detail Recorded Client Recorded Date Recorded By Document 02/01/22 08:00 DL [id number] 02/01/22 08:23 DL Document 02/08/22 08:26 BM [id number] 02/08/22 08:50 BMF Document 02/15/22 08:08 DL [id number] 02/15/22 08:22 DL Document 02/20/22 11:30 [facility] [id number] 02/20/22 11:56 BMF Document 02/27/22 08:00 [facility] [id number] 02/27/22 08:16 BM 02/01/22 02/08/22 02/15/22 08:00 08:26 08:08 - Today's Visit Information Type of service Follow-up Visit Follow-up Visit Follow-up Visit (Physician/CONCRETE LAYER (Physician/CONCRETE LAYER (Physician/CONCRETE LAYER ) ) ) Arrival Mode Ambulatory, Ambulatory Ambulatory Walker Transfer Assistance None None Transfer Assist (Other) Accompanied by Patient Identification Verified (Name & Yes Yes Yes ) Patient Requires Transmission-Based No No No Precautions Finger Stick Blood Sugar(mg/dl) (if 127 indicated): Blood Sugar Stated by Patient Vital Signs Temperature (97.8 F-99.1 F) 96.7 F L 96.6 F L 96.6 F L Temperature Source Temporal Temporal Temporal Pulse Rate (60-100) 83 73 91 Pulse Location Monitor Monitor Monitor Respiratory Rate (12-18) 18 20 H 18 Respiratory rate source Observation Observation Oxygen Delivery Method Blood Pressure (90/60-120/80) 99/54 L 128/29 H 115/76 Blood Pressure Mean (mm Hg) 69 62 89 Source Monitor Monitor Monitor Position Blood Pressure Location History Since Last Visit- (Skip if this is Patient's initial visit) Have you changed medications since your No No No last visit? Any new allergies or adverse reactions No No No Had a fall/change in ADL's that may No No No increase risk of falls Signs or symptoms of abuse and/or No No No neglect since last visit Have you been in the hospital since your No No No last visit? Has dressing in place as prescribed Yes Yes Yes Has compression in place as prescribed Yes Yes Yes Has offloadiing in place as prescribed Yes N/A Experienced any changes in pain level or No No No management Left Footwear Removable Cast Walker/Walking Boot Right Footwear Surgical Shoe with pressure relief insole Other Footwear Pain Scale: 0-10 Numeric Is Patient Pain Free? Yes Yes Yes 02/20/22 02/27/22 11:30 08:00 WC - Today's Visit Information Type of service Follow-up Visit Follow-up Visit (Physician/CONCRETE LAYER (Physician/CONCRETE LAYER ) ) Arrival Mode Wheelchair Ambulatory Transfer Assistance Other None Transfer Assist (Other) 1 Accompanied by Patient Identification Verified (Name & Yes Yes ) Patient Requires Transmission-Based No No Precautions Finger Stick Blood Sugar(mg/dl) (if indicated): Blood Sugar Vital Signs Temperature (97.8 F-99.1 F) 96.7 F L 96.2 F L Temperature Source Temporal Temporal Pulse Rate (60-100) 93 Pulse Location Monitor Respiratory Rate (12-18) 18 16 Respiratory rate source Observation Observation Oxygen Delivery Method Room Air Room Air Blood Pressure (90/60-120/80) 126/85 H 123/83 H Blood Pressure Mean (mm Hg) 98 96 Source Monitor Monitor Position Sitting Sitting Blood Pressure Location Left Arm Right Forearm History Since Last Visit- (Skip if this is Patient's initial visit) Have you changed medications since your No No last visit? Any new allergies or adverse reactions No No Had a fall/change in ADL's that may No No increase risk of falls Signs or symptoms of abuse and/or No No neglect since last visit Have you been in the hospital since your No No last visit? Has dressing in place as prescribed Yes Yes Has compression in place as prescribed Yes Yes Has offloadiing in place as prescribed Yes Yes Experienced any changes in pain level or No No management Left Footwear Surgical Shoe Surgical Shoe with pressure with pressure relief insole relief insole Right Footwear Other Footwear Surgical Shoe (Comment) with pressure relief insole Other Footwear non skid sock rle Pain Scale: 0-10 Numeric Is Patient Pain Free? Yes Yes DAVID - Nurse 1 - General Ulcer Measurement Start: 02/01/22 08:00 Freq: Status: Active Protocol: Activity Type Activity Date Activity User E-sign Co-sign Detail Recorded Client Recorded Date Recorded By Document 02/01/22 08:00 DL [id number] 02/01/22 08:23 DL Document 02/08/22 08:26 [facility] [id number] 02/08/22 08:50 [facility] Document 02/15/22 08:08 DL [id number] 02/15/22 08:22 DL Document 02/20/22 11:30 [facility] [id number] 02/20/22 11:56 [facility] Document 02/27/22 08:00 [facility] [id number] 02/27/22 08:16 [facility] 02/01/22 02/08/22 02/15/22 08:00 08:26 08:08 Wound Center Nurse 1 #10 R 2nd toe -Combined with other wound -Current Size (cm) - Length 0.8 0.9 0.1 -Current Size (cm) - Width 0.6 0.8 0.1 -Current Size (cm) - Depth 0.1 0.1 0.1 -Total Square Cm 0.48 0.72 0.01 -Photo Taken No No No -Epithelialization -Tunneling -Undermining/Tunneling -Circular Undermining -Exudate Amt Small Medium Medium -Exudate Type Serosanguineous Serosanguineous Serosanguineous -Wound Margin Distinct, Distinct, Distinct, Outline Outline Outline Attached Attached Attached -Granulation Amt Small (1-33%) None Present (0 None Present (0 %) %) -Granulation Quality [place] -Slough/Fibrin -Necrosis Amt Small (1-33%) Large (67-100%) Large (67-100%) -Necrotic Tissue Type Adherent Slough Adherent Slough Adherent Slough -Structure Exposed N/A N/A N/A -Texture (Ana-wound Skin Appearance) Scarring Scarring Scarring -Moisture (Ana-wound Skin Appearance) No Abnormality Weeping Weeping -Color (Ana-wound Skin Appearance) Hemosiderin Erythema, Hemosiderin Staining Hemosiderin Staining Staining -Temperature (Ana-wound Skin No Abnormality No Abnormality No Abnormality Appearance) (Pt Warm) (Pt Warm) (Pt Warm) -Tenderness on Palpation (Ana-wound Yes No No Skin Appearance) -Ulcer Cleansing Soap and Water Soap and Water Soap and Water -Foul Odor after Cleansing Yes, Due to No No Product Use -Anesthetic Used 4% Lidocaine 4% Lidocaine 5% Lidocaine Solution Solution Gel #9 L Lat Foot -Combined with other wound -Current Size (cm) - Length 1 0.9 0.1 -Current Size (cm) - Width 0.3 0.6 0.1 -Current Size (cm) - Depth 0.1 0.1 0.1 -Total Square Cm 0.3 0.54 0.01 -Date of Last Picture (Recall this field) -Photo Taken Yes No No -Epithelialization -Tunneling -Undermining/Tunneling -Circular Undermining -Exudate Amt Small Medium Medium -Exudate Type Serosanguineous Serosanguineous Serosanguineous -Wound Margin Distinct, Distinct, Distinct, Outline Outline Outline Attached Attached Attached -Granulation Amt Large (67-100%) None Present (0 None Present (0 %) %) -Granulation Quality [place] -Slough/Fibrin -Necrosis Amt Small (1-33%) Large (67-100%) Large (67-100%) -Necrotic Tissue Type Adherent Slough Adherent Slough -Structure Exposed N/A Tendon,N/A -Texture (Ana-wound Skin Appearance) Scarring Localized Edema Scarring ,Scarring -Moisture (Ana-wound Skin Appearance) No Abnormality Weeping Weeping -Color (Ana-wound Skin Appearance) Hemosiderin Erythema, Hemosiderin Staining Hemosiderin Staining Staining -Temperature (Ana-wound Skin No Abnormality No Abnormality No Abnormality Appearance) (Pt Warm) (Pt Warm) (Pt Warm) -Tenderness on Palpation (Ana-wound No No No Skin Appearance) -Ulcer Cleansing Soap and Water Soap and Water Soap and Water -Foul Odor after Cleansing No No No -Anesthetic Used 4% Lidocaine 4% Lidocaine 5% Lidocaine Solution Solution Gel #8 R LE Med -Combined with other wound -Current Size (cm) - Length 2.7 0.1 -Current Size (cm) - Width 1.6 0.1 -Current Size (cm) - Depth 0.1 0.1 -Total Square Cm 4.32 0.01 -Photo Taken Yes No No -Epithelialization -Tunneling -Undermining/Tunneling -Circular Undermining -Exudate Amt Small Medium Medium -Exudate Type Serosanguineous Serosanguineous Serosanguineous -Wound Margin Distinct, Distinct, Distinct, Outline Outline Outline Attached Attached Attached -Granulation Amt Medium (34-66%) None Present (0 None Present (0 %) %) -Granulation Quality [place] -Slough/Fibrin -Necrosis Amt Medium (34-66%) Large (67-100%) Large (67-100%) -Necrotic Tissue Type Adherent Slough Adherent Slough Adherent Slough -Structure Exposed N/A N/A N/A -Texture (Ana-wound Skin Appearance) Scarring Localized Edema Scarring ,Scarring -Moisture (Ana-wound Skin Appearance) Dry/Scaly Weeping Weeping -Color (Ana-wound Skin Appearance) Hemosiderin Erythema, Hemosiderin Staining Hemosiderin Staining Staining -Temperature (Ana-wound Skin No Abnormality No Abnormality No Abnormality Appearance) (Pt Warm) (Pt Warm) (Pt Warm) -Tenderness on Palpation (Ana-wound No No Skin Appearance) -Ulcer Cleansing Soap and Water Soap and Water Soap and Water -Foul Odor after Cleansing No No No -Anesthetic Used 4% Lidocaine 4% Lidocaine 4% Lidocaine Solution Solution Solution #7 R Inf. LE -Combined with other wound -Current Size (cm) - Length 2.7 5.8 0.1 -Current Size (cm) - Width 1.4 4 0.1 -Current Size (cm) - Depth 0.2 0.3 0.1 -Total Square Cm 3.78 23.2 0.01 -Photo Taken Yes No No -Epithelialization -Tunneling -Undermining/Tunneling -Circular Undermining -Exudate Amt Medium Medium Medium -Exudate Type Serosanguineous Serosanguineous Serosanguineous -Wound Margin Distinct, Distinct, Distinct, Outline Outline Outline Attached Attached Attached -Granulation Amt Medium (34-66%) None Present (0 None Present (0 %) %) -Granulation Quality Red -Slough/Fibrin -Necrosis Amt Medium (34-66%) Large (67-100%) Large (67-100%) -Necrotic Tissue Type Adherent Slough Adherent Slough Adherent Slough -Structure Exposed N/A N/A N/A -Texture (Ana-wound Skin Appearance) Scarring Localized Edema Scarring ,Scarring -Moisture (Ana-wound Skin Appearance) No Abnormality Weeping Weeping -Color (Ana-wound Skin Appearance) Hemosiderin Erythema, Hemosiderin Staining Hemosiderin Staining Staining -Temperature (Ana-wound Skin No Abnormality No Abnormality No Abnormality Appearance) (Pt Warm) (Pt Warm) (Pt Warm) -Tenderness on Palpation (Ana-wound No No Skin Appearance) -Ulcer Cleansing Soap and Water Soap and Water Soap and Water -Foul Odor after Cleansing No No No -Anesthetic Used 4% Lidocaine 4% Lidocaine 4% Lidocaine Solution Solution Solution #6 R Sup LE -Combined with other wound -Current Size (cm) - Length 2.3 2.4 0.1 -Current Size (cm) - Width 0.8 0.7 0.1 -Current Size (cm) - Depth 0.2 0.2 0.1 -Total Square Cm 1.84 1.68 0.01 -Photo Taken Yes No No -Epithelialization -Tunneling -Undermining/Tunneling -Circular Undermining -Exudate Amt Small Medium Medium -Exudate Type Serosanguineous Serosanguineous Serosanguineous -Wound Margin Distinct, Distinct, Distinct, Outline Outline Outline Attached Attached Attached -Granulation Amt Medium (34-66%) None Present (0 None Present (0 %) %) -Granulation Quality Red -Slough/Fibrin -Necrosis Amt Medium (34-66%) Large (67-100%) Large (67-100%) -Necrotic Tissue Type Adherent Slough Adherent Slough -Structure Exposed N/A N/A N/A -Texture (Ana-wound Skin Appearance) Localized Edema Localized Edema Scarring ,Scarring ,Scarring -Moisture (Ana-wound Skin Appearance) Dry/Scaly Weeping Weeping -Color (Ana-wound Skin Appearance) Hemosiderin Erythema, Hemosiderin Staining Hemosiderin Staining Staining -Temperature (Ana-wound Skin No Abnormality No Abnormality No Abnormality Appearance) (Pt Warm) (Pt Warm) (Pt Warm) -Tenderness on Palpation (Ana-wound No No Skin Appearance) -Ulcer Cleansing Soap and Water Soap and Water Not Cleansed -Foul Odor after Cleansing No No No -Anesthetic Used 4% Lidocaine 4% Lidocaine 4% Lidocaine Solution Solution Solution #5 R Dorsal -Combined with other wound -Current Size (cm) - Length 1.4 1.6 0.1 -Current Size (cm) - Width 1.4 1.4 0.1 -Current Size (cm) - Depth 0.3 0.4 0.1 -Total Square Cm 1.96 2.24 0.01 -Photo Taken No No No -Epithelialization -Tunneling -Undermining/Tunneling -Circular Undermining -Exudate Amt Medium Medium Medium -Exudate Type Serosanguineous Serosanguineous Serosanguineous -Wound Margin Distinct, Distinct, Distinct, Outline Outline Outline Attached Attached Attached -Granulation Amt Small (1-33%) None Present (0 None Present (0 %) %) -Granulation Quality [place] -Slough/Fibrin -Necrosis Amt Large (67-100%) Large (67-100%) Large (67-100%) -Necrotic Tissue Type Adherent Slough Adherent Slough Eschar -Structure Exposed N/A N/A -Texture (Ana-wound Skin Appearance) Scarring Scarring,Rash Scarring -Moisture (Ana-wound Skin Appearance) Maceration Weeping Weeping -Color (Ana-wound Skin Appearance) Hemosiderin Erythema, Hemosiderin Staining Hemosiderin Staining Staining -Temperature (Ana-wound Skin No Abnormality No Abnormality Appearance) (Pt Warm) (Pt Warm) -Tenderness on Palpation (Ana-wound No Yes Skin Appearance) -Ulcer Cleansing Soap and Water Soap and Water Soap and Water -Foul Odor after Cleansing No No No -Anesthetic Used 4% Lidocaine 4% Lidocaine 4% Lidocaine Solution Solution Solution #4 L Med Cluster -Combined with other wound -Current Size (cm) - Length 11 9.5 0.1 -Current Size (cm) - Width 2.5 1 0.1 -Current Size (cm) - Depth 0.2 0.2 0.1 -Total Square Cm 27.5 9.5 0.01 -Photo Taken Yes No No -Epithelialization -Tunneling -Undermining/Tunneling -Circular Undermining -Exudate Amt Small Medium Medium -Exudate Type Serosanguineous Serosanguineous Serosanguineous -Wound Margin Distinct, Distinct, Distinct, Outline Outline Outline Attached Attached Attached -Granulation Amt Medium (34-66%) None Present (0 None Present (0 %) %) -Granulation Quality Red -Slough/Fibrin -Necrosis Amt Medium (34-66%) Large (67-100%) Large (67-100%) -Necrotic Tissue Type Adherent Slough Adherent Slough Adherent Slough -Structure Exposed N/A N/A N/A -Texture (Ana-wound Skin Appearance) Scarring Localized Edema Scarring ,Scarring -Moisture (Ana-wound Skin Appearance) Dry/Scaly Weeping Weeping -Color (Ana-wound Skin Appearance) Hemosiderin Erythema, Hemosiderin Staining Hemosiderin Staining Staining -Temperature (Ana-wound Skin No Abnormality No Abnormality Appearance) (Pt Warm) (Pt Warm) -Tenderness on Palpation (Ana-wound No Skin Appearance) -Ulcer Cleansing Soap and Water Soap and Water Soap and Water -Foul Odor after Cleansing No No No -Anesthetic Used 4% Lidocaine 4% Lidocaine 4% Lidocaine Solution Solution Solution #3 L Lat heel -Combined with other wound -Current Size (cm) - Length 1 1.3 0.1 -Current Size (cm) - Width 0.3 1.1 0.1 -Current Size (cm) - Depth 0.2 0.2 0.1 -Total Square Cm 0.3 1.43 0.01 -Photo Taken Yes No No -Epithelialization -Tunneling -Undermining/Tunneling -Circular Undermining -Exudate Amt None Present Medium Medium -Exudate Type Serosanguineous Serosanguineous Serosanguineous -Wound Margin Distinct, Distinct, Distinct, Outline Outline Outline Attached Attached Attached -Granulation Amt Small (1-33%) None Present (0 None Present (0 %) %) -Granulation Quality [place] -Slough/Fibrin -Necrosis Amt None Present (0 Large (67-100%) Large (67-100%) %) -Necrotic Tissue Type Adherent Slough Adherent Slough -Structure Exposed N/A N/A N/A -Texture (Ana-wound Skin Appearance) Localized Edema Localized Edema Scarring ,Scarring ,Scarring -Moisture (Ana-wound Skin Appearance) Assessed Weeping Weeping -Color (Ana-wound Skin Appearance) No Abnormality Erythema, Hemosiderin Hemosiderin Staining Staining -Temperature (Ana-wound Skin No Abnormality No Abnormality No Abnormality Appearance) (Pt Warm) (Pt Warm) (Pt Warm) -Tenderness on Palpation (Ana-wound No Skin Appearance) -Ulcer Cleansing Soap and Water Soap and Water Soap and Water -Foul Odor after Cleansing No No No -Anesthetic Used 4% Lidocaine 4% Lidocaine 4% Lidocaine Solution Solution Solution #2 L 3rd toe -Combined with other wound -Current Size (cm) - Length 1.5 1.3 0.1 -Current Size (cm) - Width 0.9 1.4 0.1 -Current Size (cm) - Depth 0.1 0.2 0.1 -Total Square Cm 1.35 1.82 0.01 -Photo Taken Yes No No -Epithelialization -Tunneling -Undermining/Tunneling -Circular Undermining -Exudate Amt Medium Medium Medium -Exudate Type Serosanguineous Serosanguineous Serosanguineous -Wound Margin Distinct, Distinct, Distinct, Outline Outline Outline Attached Attached Attached -Granulation Amt None Present (0 None Present (0 None Present (0 %) %) %) -Granulation Quality -Slough/Fibrin -Necrosis Amt Large (67-100%) Large (67-100%) Large (67-100%) -Necrotic Tissue Type Adherent Slough Adherent Slough Adherent Slough -Structure Exposed N/A N/A N/A -Texture (Ana-wound Skin Appearance) Localized Edema Localized Edema Scarring ,Scarring ,Scarring -Moisture (Ana-wound Skin Appearance) Maceration Weeping Weeping -Color (Ana-wound Skin Appearance) Hemosiderin Erythema, Hemosiderin Staining Hemosiderin Staining Staining -Temperature (Ana-wound Skin No Abnormality No Abnormality No Abnormality Appearance) (Pt Warm) (Pt Warm) (Pt Warm) -Tenderness on Palpation (Ana-wound No No Yes Skin Appearance) -Ulcer Cleansing Soap and Water Soap and Water Soap and Water -Foul Odor after Cleansing No No No -Anesthetic Used 4% Lidocaine 4% Lidocaine 4% Lidocaine Solution Solution Solution #1 L Hallux -Combined with other wound -Current Size (cm) - Length 2.5 2.3 0.1 -Current Size (cm) - Width 2.2 2.3 0.1 -Current Size (cm) - Depth 0.1 0.1 0.1 -Total Square Cm 5.50 5.29 0.01 -Photo Taken Yes No No -Epithelialization -Tunneling -Undermining/Tunneling -Circular Undermining -Exudate Amt Medium Medium Medium -Exudate Type Serosanguineous Serosanguineous Serosanguineous -Wound Margin Distinct, Distinct, Distinct, Outline Outline Outline Attached Attached Attached -Granulation Amt None Present (0 None Present (0 %) %) -Slough/Fibrin -Necrosis Amt Large (67-100%) Large (67-100%) -Necrotic Tissue Type Adherent Slough Adherent Slough -Structure Exposed N/A N/A -Texture (Ana-wound Skin Appearance) Localized Edema Localized Edema Scarring ,Scarring ,Scarring -Moisture (Ana-wound Skin Appearance) Dry/Scaly Weeping Weeping -Color (Ana-wound Skin Appearance) Erythema, Erythema, Hemosiderin Hemosiderin Hemosiderin Staining Staining Staining -Temperature (Ana-wound Skin No Abnormality No Abnormality No Abnormality Appearance) (Pt Warm) (Pt Warm) (Pt Warm) -Tenderness on Palpation (Ana-wound No No Yes Skin Appearance) -Ulcer Cleansing Soap and Water Soap and Water Soap and Water -Foul Odor after Cleansing No No No -Anesthetic Used 4% Lidocaine 4% Lidocaine 5% Lidocaine Solution Solution Gel Lower Limb Edema Present Right Calf (cm) 32.4 32.4 Right Ankle (cm) 22.2 23 Left Calf (cm) 35.1 35.6 Left Ankle (cm) 25.2 24.7 02/20/22 02/27/22 11:30 08:00 Wound Center Nurse 1 #10 R 2nd toe -Combined with other wound No No -Current Size (cm) - Length 1.6 1.4 -Current Size (cm) - Width 1.5 1.4 -Current Size (cm) - Depth 0.1 0.2 -Total Square Cm 2.40 1.96 -Photo Taken No -Epithelialization None Present -Tunneling No No -Undermining/Tunneling No No -Circular Undermining No No -Exudate Amt None Present None Present -Exudate Type -Wound Margin Distinct, Distinct, Outline Outline Attached Attached -Granulation Amt None Present (0 None Present (0 %) %) -Granulation Quality -Slough/Fibrin Yes Yes -Necrosis Amt Large (67-100%) Large (67-100%) -Necrotic Tissue Type Eschar Eschar -Structure Exposed -Texture (Ana-wound Skin Appearance) Assessed, Assessed, Scarring Scarring -Moisture (Ana-wound Skin Appearance) Assessed Assessed -Color (Ana-wound Skin Appearance) Assessed, Assessed, Erythema Erythema -Temperature (Ana-wound Skin No Abnormality No Abnormality Appearance) (Pt Warm) (Pt Warm) -Tenderness on Palpation (Ana-wound No No Skin Appearance) -Ulcer Cleansing Soap and Water Soap and Water -Foul Odor after Cleansing No No -Anesthetic Used 4% Lidocaine 4% Lidocaine Solution Solution #9 L Lat Foot -Combined with other wound No No -Current Size (cm) - Length 1.4 1.9 -Current Size (cm) - Width 1 1.5 -Current Size (cm) - Depth 0.1 0.2 -Total Square Cm 1.4 2.85 -Date of Last Picture (Recall this 02/20/22 field) -Photo Taken Yes -Epithelialization None Present None Present -Tunneling No No -Undermining/Tunneling No No -Circular Undermining No No -Exudate Amt Medium None Present -Exudate Type Serosanguineous -Wound Margin Distinct, Distinct, Outline Outline Attached Attached -Granulation Amt None Present (0 None Present (0 %) %) -Granulation Quality -Slough/Fibrin Yes Yes -Necrosis Amt Large (67-100%) Large (67-100%) -Necrotic Tissue Type Eschar Eschar -Structure Exposed -Texture (Ana-wound Skin Appearance) Assessed, Assessed, Scarring Scarring -Moisture (Ana-wound Skin Appearance) Assessed, Assessed Maceration -Color (Ana-wound Skin Appearance) Assessed, Assessed, Erythema Erythema -Temperature (Ana-wound Skin No Abnormality No Abnormality Appearance) (Pt Warm) (Pt Warm) -Tenderness on Palpation (Ana-wound No Yes Skin Appearance) -Ulcer Cleansing Soap and Water Soap and Water -Foul Odor after Cleansing No No -Anesthetic Used 4% Lidocaine 4% Lidocaine Solution Solution #8 R LE Med -Combined with other wound No No -Current Size (cm) - Length 3.9 3.4 -Current Size (cm) - Width 1.6 2.3 -Current Size (cm) - Depth 0.1 0.1 -Total Square Cm 6.24 7.82 -Photo Taken No -Epithelialization None Present None Present -Tunneling No No -Undermining/Tunneling No No -Circular Undermining No No -Exudate Amt Medium Large -Exudate Type Serosanguineous Serous -Wound Margin Distinct, Distinct, Outline Outline Attached Attached -Granulation Amt Small (1-33%) Small (1-33%) -Granulation Quality Red Red -Slough/Fibrin Yes Yes -Necrosis Amt Large (67-100%) Large (67-100%) -Necrotic Tissue Type Adherent Slough Adherent Slough -Structure Exposed -Texture (Ana-wound Skin Appearance) Assessed, Assessed, Scarring Scarring -Moisture (Ana-wound Skin Appearance) Assessed, Assessed, Maceration Weeping -Color (Ana-wound Skin Appearance) Assessed, Assessed, Erythema Erythema -Temperature (Ana-wound Skin No Abnormality No Abnormality Appearance) (Pt Warm) (Pt Warm) -Tenderness on Palpation (Ana-wound No No Skin Appearance) -Ulcer Cleansing Soap and Water Soap and Water -Foul Odor after Cleansing No No -Anesthetic Used 4% Lidocaine 4% Lidocaine Solution Solution #7 R Inf. LE -Combined with other wound No No -Current Size (cm) - Length 6 3.2 -Current Size (cm) - Width 5.7 2.5 -Current Size (cm) - Depth 0.3 0.2 -Total Square Cm 34.2 8.00 -Photo Taken No No -Epithelialization None Present None Present -Tunneling No No -Undermining/Tunneling No No -Circular Undermining No No -Exudate Amt Medium Large -Exudate Type Serosanguineous Serous -Wound Margin Distinct, Distinct, Outline Outline Attached Attached -Granulation Amt Large (67-100%) Medium (34-66%) -Granulation Quality Red Red -Slough/Fibrin Yes Yes -Necrosis Amt Medium (34-66%) Medium (34-66%) -Necrotic Tissue Type Adherent Slough Adherent Slough -Structure Exposed -Texture (Ana-wound Skin Appearance) Assessed, Assessed, Scarring Scarring -Moisture (Ana-wound Skin Appearance) Assessed, Assessed, Maceration Weeping -Color (Ana-wound Skin Appearance) Assessed, Assessed, Erythema Erythema -Temperature (Ana-wound Skin No Abnormality No Abnormality Appearance) (Pt Warm) (Pt Warm) -Tenderness on Palpation (Ana-wound No No Skin Appearance) -Ulcer Cleansing Soap and Water Soap and Water -Foul Odor after Cleansing No No -Anesthetic Used 4% Lidocaine 4% Lidocaine Solution Solution #6 R Sup LE -Combined with other wound No No -Current Size (cm) - Length 1.6 1.3 -Current Size (cm) - Width 0.5 0.4 -Current Size (cm) - Depth 0.1 0.1 -Total Square Cm 0.80 0.52 -Photo Taken No No -Epithelialization None Present None Present -Tunneling No No -Undermining/Tunneling No No -Circular Undermining No No -Exudate Amt Medium None Present -Exudate Type Serosanguineous -Wound Margin Distinct, Distinct, Outline Outline Attached Attached -Granulation Amt Small (1-33%) None Present (0 %) -Granulation Quality Red -Slough/Fibrin Yes Yes -Necrosis Amt Medium (34-66%) Large (67-100%) -Necrotic Tissue Type Adherent Slough Eschar -Structure Exposed -Texture (Ana-wound Skin Appearance) Assessed, Assessed, Scarring Scarring -Moisture (Ana-wound Skin Appearance) Assessed, Assessed Maceration -Color (Ana-wound Skin Appearance) Assessed, Assessed Erythema -Temperature (Ana-wound Skin No Abnormality No Abnormality Appearance) (Pt Warm) (Pt Warm) -Tenderness on Palpation (Ana-wound No No Skin Appearance) -Ulcer Cleansing Soap and Water Soap and Water -Foul Odor after Cleansing No No -Anesthetic Used 4% Lidocaine 4% Lidocaine Solution Solution #5 R Dorsal -Combined with other wound No No -Current Size (cm) - Length 1.7 1.7 -Current Size (cm) - Width 1.4 1.5 -Current Size (cm) - Depth 0.3 0.4 -Total Square Cm 2.38 2.55 -Photo Taken No -Epithelialization None Present None Present -Tunneling No No -Undermining/Tunneling No No -Circular Undermining No No -Exudate Amt Medium Large -Exudate Type Serosanguineous Serous -Wound Margin Distinct, Distinct, Outline Outline Attached Attached -Granulation Amt Small (1-33%) Medium (34-66%) -Granulation Quality Red [place] -Slough/Fibrin Yes -Necrosis Amt Medium (34-66%) Medium (34-66%) -Necrotic Tissue Type Adherent Slough Adherent Slough -Structure Exposed -Texture (Ana-wound Skin Appearance) Assessed, Assessed, Scarring Fluctuance -Moisture (Ana-wound Skin Appearance) Assessed, Assessed, Maceration Maceration, Weeping -Color (Ana-wound Skin Appearance) Assessed, Assessed, Erythema Erythema,Palor -Temperature (Ana-wound Skin No Abnormality No Abnormality Appearance) (Pt Warm) (Pt Warm) -Tenderness on Palpation (Ana-wound No No Skin Appearance) -Ulcer Cleansing Soap and Water Soap and Water -Foul Odor after Cleansing No No -Anesthetic Used 4% Lidocaine 4% Lidocaine Solution Solution #4 L Med Cluster -Combined with other wound No No -Current Size (cm) - Length 10.0 11.2 -Current Size (cm) - Width 1.1 2.6 -Current Size (cm) - Depth 0.3 0.4 -Total Square Cm 11.00 29.12 -Photo Taken No -Epithelialization None Present None Present -Tunneling No No -Undermining/Tunneling No No -Circular Undermining No No -Exudate Amt Medium Large -Exudate Type Serosanguineous Serous -Wound Margin Distinct, Distinct, Outline Outline Attached Attached -Granulation Amt Medium (34-66%) Small (1-33%) -Granulation Quality Red Red -Slough/Fibrin Yes Yes -Necrosis Amt Medium (34-66%) Large (67-100%) -Necrotic Tissue Type Adherent Slough Adherent Slough -Structure Exposed -Texture (Ana-wound Skin Appearance) Assessed, Assessed, Scarring Scarring -Moisture (Ana-wound Skin Appearance) Assessed, Assessed, Maceration Weeping -Color (Ana-wound Skin Appearance) Assessed, Assessed, Erythema Erythema -Temperature (Ana-wound Skin No Abnormality No Abnormality Appearance) (Pt Warm) (Pt Warm) -Tenderness on Palpation (Ana-wound No Yes Skin Appearance) -Ulcer Cleansing Soap and Water Soap and Water -Foul Odor after Cleansing No No -Anesthetic Used 4% Lidocaine 4% Lidocaine Solution Solution #3 L Lat heel -Combined with other wound No No -Current Size (cm) - Length 1.9 2.3 -Current Size (cm) - Width 1.5 1.5 -Current Size (cm) - Depth 0.1 0.3 -Total Square Cm 2.85 3.45 -Photo Taken No No -Epithelialization None Present None Present -Tunneling No No -Undermining/Tunneling No No -Circular Undermining No -Exudate Amt Small None Present -Exudate Type Serosanguineous -Wound Margin Distinct, Distinct, Outline Outline Attached Attached -Granulation Amt None Present (0 None Present (0 %) %) -Granulation Quality -Slough/Fibrin Yes Yes -Necrosis Amt Large (67-100%) Large (67-100%) -Necrotic Tissue Type Eschar Eschar -Structure Exposed -Texture (Ana-wound Skin Appearance) Assessed, Assessed, Scarring Scarring -Moisture (Ana-wound Skin Appearance) Assessed Assessed -Color (Ana-wound Skin Appearance) Assessed, Assessed, Erythema Erythema -Temperature (Ana-wound Skin No Abnormality No Abnormality Appearance) (Pt Warm) (Pt Warm) -Tenderness on Palpation (Ana-wound No No Skin Appearance) -Ulcer Cleansing Soap and Water Soap and Water -Foul Odor after Cleansing No No -Anesthetic Used 4% Lidocaine 4% Lidocaine Solution Solution #2 L 3rd toe -Combined with other wound No No -Current Size (cm) - Length 3.0 2.4 -Current Size (cm) - Width 1.5 1 -Current Size (cm) - Depth 0.1 0.2 -Total Square Cm 4.50 2.4 -Photo Taken No No -Epithelialization None Present None Present -Tunneling No No -Undermining/Tunneling No No -Circular Undermining No No -Exudate Amt Medium Large -Exudate Type Serosanguineous Serous -Wound Margin Distinct, Distinct, Outline Outline Attached Attached -Granulation Amt Medium (34-66%) Medium (34-66%) -Granulation Quality Red Red -Slough/Fibrin Yes Yes -Necrosis Amt Medium (34-66%) Medium (34-66%) -Necrotic Tissue Type Adherent Slough Adherent Slough -Structure Exposed -Texture (Ana-wound Skin Appearance) Assessed, Assessed, Scarring Scarring -Moisture (Ana-wound Skin Appearance) Assessed, Assessed, Maceration Maceration, Weeping -Color (Ana-wound Skin Appearance) Assessed, Assessed, Erythema Erythema -Temperature (Ana-wound Skin No Abnormality No Abnormality Appearance) (Pt Warm) (Pt Warm) -Tenderness on Palpation (Ana-wound No No Skin Appearance) -Ulcer Cleansing Soap and Water Soap and Water -Foul Odor after Cleansing No No -Anesthetic Used 4% Lidocaine 4% Lidocaine Solution Solution #1 L Hallux -Combined with other wound No No -Current Size (cm) - Length 4.4 4.4 -Current Size (cm) - Width 4.5 3.5 -Current Size (cm) - Depth 0.1 0.3 -Total Square Cm 19.80 15.40 -Photo Taken No No -Epithelialization None Present None Present -Tunneling No No -Undermining/Tunneling No No -Circular Undermining No No -Exudate Amt Medium Large -Exudate Type Serosanguineous Serous -Wound Margin Distinct, Distinct, Outline Outline Attached Attached -Granulation Amt None Present (0 None Present (0 %) %) -Slough/Fibrin Yes Yes -Necrosis Amt Large (67-100%) Large (67-100%) -Necrotic Tissue Type Eschar Eschar -Structure Exposed -Texture (Ana-wound Skin Appearance) Assessed, Assessed, Scarring Scarring -Moisture (Ana-wound Skin Appearance) Assessed, Assessed, Maceration Maceration -Color (Ana-wound Skin Appearance) Assessed, Assessed, Erythema Erythema -Temperature (Ana-wound Skin No Abnormality No Abnormality Appearance) (Pt Warm) (Pt Warm) -Tenderness on Palpation (Ana-wound No Yes Skin Appearance) -Ulcer Cleansing Soap and Water Soap and Water -Foul Odor after Cleansing No No -Anesthetic Used 4% Lidocaine 4% Lidocaine Solution Solution Lower Limb Edema Present Yes Right Calf (cm) 36.8 37.9 Right Ankle (cm) 23.5 23 Left Calf (cm) 36.5 38.3 Left Ankle (cm) 25.5 27.4 WC - Nurse 2 - General Ulcer CM Notes Start: 02/01/22 08:00 Freq: Status: Active Protocol: Activity Type Activity Date Activity User E-sign Co-sign Detail Recorded Client Recorded Date Recorded By Document 02/01/22 08:31 MW [id number] 02/01/22 08:58 MW Document 02/08/22 09:06 MW [id number] 02/08/22 09:51 MW Edit Result 02/08/22 09:06 MW (1) [id number] 02/09/22 07:31 PL Document 02/15/22 08:39 MW [id number] 02/15/22 09:04 MW Document 02/20/22 11:59 JF [id number] 02/20/22 12:10 JF Document 02/27/22 08:29 JF [id number] 02/27/22 08:31 JF (1) #10 R 2nd toe - Debridement, SubQ, ea addt'l 20sq cm 2 => 3 or part thereof 02/01/22 02/08/22 02/15/22 08:31 09:06 08:39 Wound Center Nurse 2 #10 R 2nd toe -Time : 09:27 08:40 -Correct Patient Yes Yes Yes -Correct Side, Site, Position Yes Yes Yes -Correct Procedure Yes Yes Yes -Procedure Performed Yes Yes Yes -Type of Procedure Debridement Debridement Debridement -Clinical Debridement Subcutaneous Subcutaneous Subcutaneous -Tissue Removed Subcutaneous Subcutaneous Subcutaneous -Post Debridement (cm) - Length 1.5 1.2 0.8 -Post Debridement (cm) - Width 0.9 1.2 0.5 -Post Debridement (cm) - Depth 0.1 0.1 0.1 -Total Square (Post) (cm) 1.35 1.44 0.40 -Area of Debridement (cm) - Length 1.5 1.2 0.8 -Area of Debridement (cm) - Width 0.9 1.2 0.5 -Total Square (Area) (cm) 1.35 1.44 0.40 -Tunneling No No No -Undermining/Tunneling No No No -Circular Undermining No No No -Wound/Ulcer Outcome Not Healed Not Healed Not Healed -Ulcer Cleansing Rinsed/ Rinsed/ Rinsed/ Irrigated with Irrigated with Irrigated with Saline Saline Saline -Foul Odor after Cleansing No No No -Bioengineered Tissue No No No -Bleeding Controlled with Pressure Pressure Pressure -Treatment Response Procedure Procedure Procedure Tolerated Well Tolerated Well Tolerated Well -Offloading No No No -Debridement - Subq, 1st 20sq cm Yes Yes Yes -Debridement, SubQ, ea addt'l 20sq cm 1 3 2 or part thereof #9 L Lat Foot -Time : 09:27 08:40 -Correct Patient Yes Yes Yes -Correct Side, Site, Position Yes Yes Yes -Correct Procedure Yes Yes Yes -Procedure Performed Yes Yes Yes -Type of Procedure Debridement Debridement Debridement -Clinical Debridement Subcutaneous Subcutaneous Subcutaneous -Tissue Removed Subcutaneous Subcutaneous Subcutaneous -Post Debridement (cm) - Length 1.0 1.0 1.0 -Post Debridement (cm) - Width 0.6 0.8 1.0 -Post Debridement (cm) - Depth 0.1 0.1 0.1 -Total Square (Post) (cm) 0.60 0.80 1.00 -Area of Debridement (cm) - Length 1.0 1.0 1.0 -Area of Debridement (cm) - Width 0.6 0.8 1.0 -Total Square (Area) (cm) 0.60 0.80 1.00 -Tunneling No No No -Undermining/Tunneling No No No -Circular Undermining No No No -Wound/Ulcer Outcome Not Healed Not Healed Not Healed -Ulcer Cleansing Rinsed/ Rinsed/ Rinsed/ Irrigated with Irrigated with Irrigated with Saline Saline Saline -Foul Odor after Cleansing No No No -Bioengineered Tissue No No No -Bleeding Controlled with Pressure Pressure Pressure -Treatment Response Procedure Procedure Procedure Tolerated Well Tolerated Well Tolerated Well -Offloading No No No -Debridement - Subq, 1st 20sq cm No No No #8 R LE Med -Time 08: 09:27 08:41 -Correct Patient Yes Yes Yes -Correct Side, Site, Position Yes Yes Yes -Correct Procedure Yes Yes Yes -Procedure Performed Yes Yes Yes -Type of Procedure Debridement Debridement Debridement -Clinical Debridement Subcutaneous Subcutaneous Subcutaneous -Tissue Removed Subcutaneous Subcutaneous Subcutaneous -Post Debridement (cm) - Length 3.2 3.4 3.5 -Post Debridement (cm) - Width 1.5 1.8 1.5 -Post Debridement (cm) - Depth 0.1 0.1 0.1 -Total Square (Post) (cm) 4.80 6.12 5.25 -Area of Debridement (cm) - Length 3.2 3.4 3.5 -Area of Debridement (cm) - Width 1.5 1.8 1.5 -Total Square (Area) (cm) 4.80 6.12 5.25 -Tunneling No No No -Undermining/Tunneling No No No -Circular Undermining No No No -Wound/Ulcer Outcome Not Healed Not Healed Not Healed -Ulcer Cleansing Rinsed/ Rinsed/ Rinsed/ Irrigated with Irrigated with Irrigated with Saline Saline Saline -Foul Odor after Cleansing No No No -Bioengineered Tissue No No No -Bleeding Controlled with Pressure Pressure Pressure -Treatment Response Procedure Procedure Procedure Tolerated Well Tolerated Well Tolerated Well -Offloading No No No -Debridement - Subq, 1st 20sq cm No No No #7 R Inf. LE -Time 08: 09:28 08:43 -Correct Patient Yes Yes Yes -Correct Side, Site, Position Yes Yes Yes -Correct Procedure Yes Yes Yes -Procedure Performed Yes Yes Yes -Type of Procedure Debridement Debridement Debridement -Clinical Debridement Subcutaneous Subcutaneous Subcutaneous -Tissue Removed Subcutaneous Subcutaneous Subcutaneous -Post Debridement (cm) - Length 3.0 3.0 3.2 -Post Debridement (cm) - Width 1.5 1.5 2.0 -Post Debridement (cm) - Depth 0.1 0.2 0.2 -Total Square (Post) (cm) 4.50 4.50 6.40 -Area of Debridement (cm) - Length 3.0 3.0 3.2 -Area of Debridement (cm) - Width 1.5 1.5 2.0 -Total Square (Area) (cm) 4.50 4.50 6.40 -Tunneling No No No -Undermining/Tunneling No No No -Circular Undermining No No No -Wound/Ulcer Outcome Not Healed Not Healed Not Healed -Ulcer Cleansing Rinsed/ Rinsed/ Rinsed/ Irrigated with Irrigated with Irrigated with Saline Saline Saline -Foul Odor after Cleansing No No No -Bioengineered Tissue No No No -Bleeding Controlled with Pressure Pressure Pressure -Treatment Response Procedure Procedure Procedure Tolerated Well Tolerated Well Tolerated Well -Offloading No No No -Debridement - Subq, 1st 20sq cm No No No #6 R Sup LE -Time 08:34 09:28 08:43 -Correct Patient Yes Yes Yes -Correct Side, Site, Position Yes Yes Yes -Correct Procedure Yes Yes Yes -Procedure Performed Yes Yes Yes -Type of Procedure Debridement Debridement Debridement -Clinical Debridement Subcutaneous Subcutaneous Subcutaneous -Tissue Removed Subcutaneous Subcutaneous Subcutaneous -Post Debridement (cm) - Length 2.0 1.5 1.4 -Post Debridement (cm) - Width 0.6 0.4 0.6 -Post Debridement (cm) - Depth 0.1 0.1 0.1 -Total Square (Post) (cm) 1.20 0.60 0.84 -Area of Debridement (cm) - Length 2.0 1.5 1.4 -Area of Debridement (cm) - Width 0.6 0.4 0.6 -Total Square (Area) (cm) 1.20 0.60 0.84 -Tunneling No No No -Undermining/Tunneling No No No -Circular Undermining No No No -Wound/Ulcer Outcome Not Healed Not Healed Not Healed -Ulcer Cleansing Rinsed/ Rinsed/ Rinsed/ Irrigated with Irrigated with Irrigated with Saline Saline Saline -Foul Odor after Cleansing No No No -Bioengineered Tissue No No No -Bleeding Controlled with Pressure Pressure Pressure -Treatment Response Procedure Procedure Procedure Tolerated Well Tolerated Well Tolerated Well -Offloading No No No -Debridement - Subq, 1st 20sq cm No No No #5 R Dorsal -Time : 09:28 08:43 -Correct Patient Yes Yes Yes -Correct Side, Site, Position Yes Yes Yes -Correct Procedure Yes Yes Yes -Procedure Performed Yes Yes Yes -Type of Procedure Debridement Debridement Debridement -Clinical Debridement Subcutaneous Subcutaneous Subcutaneous -Tissue Removed Subcutaneous Subcutaneous Subcutaneous -Post Debridement (cm) - Length 1.5 1.6 1.5 -Post Debridement (cm) - Width 1.4 1.4 1.4 -Post Debridement (cm) - Depth 0.3 0.3 0.3 -Total Square (Post) (cm) 2.10 2.24 2.10 -Area of Debridement (cm) - Length 1.5 1.6 1.5 -Area of Debridement (cm) - Width 1.4 1.4 1.4 -Total Square (Area) (cm) 2.10 2.24 2.10 -Tunneling No No No -Undermining/Tunneling No No No -Circular Undermining No No No -Wound/Ulcer Outcome Not Healed Not Healed Not Healed -Ulcer Cleansing Rinsed/ Rinsed/ Rinsed/ Irrigated with Irrigated with Irrigated with Saline Saline Saline -Foul Odor after Cleansing No No No -Bioengineered Tissue No No No -Bleeding Controlled with Pressure Pressure Pressure -Treatment Response Procedure Procedure Procedure Tolerated Well Tolerated Well Tolerated Well -Offloading No No No -Debridement - Subq, 1st 20sq cm No No No #4 L Med Cluster -Time : 09:28 08:44 -Correct Patient Yes Yes Yes -Correct Side, Site, Position Yes Yes Yes -Correct Procedure Yes Yes Yes -Procedure Performed Yes Yes Yes -Type of Procedure Debridement Debridement Debridement -Clinical Debridement Subcutaneous Subcutaneous Subcutaneous -Tissue Removed Subcutaneous Subcutaneous Subcutaneous -Post Debridement (cm) - Length 10.4 10.3 10.5 -Post Debridement (cm) - Width 1.0 1.0 1.2 -Post Debridement (cm) - Depth 0.1 0.1 0.1 -Total Square (Post) (cm) 10.40 10.30 12.60 -Area of Debridement (cm) - Length 10.4 10.3 10.5 -Area of Debridement (cm) - Width 1.0 1.0 1.2 -Total Square (Area) (cm) 10.40 10.30 12.60 -Tunneling No No No -Undermining/Tunneling No No No -Circular Undermining No No No -Wound/Ulcer Outcome Not Healed Not Healed Not Healed -Ulcer Cleansing Rinsed/ Rinsed/ Rinsed/ Irrigated with Irrigated with Irrigated with Saline Saline Saline -Foul Odor after Cleansing No No No -Bioengineered Tissue No No No -Bleeding Controlled with Pressure Pressure Pressure -Treatment Response Procedure Procedure Procedure Tolerated Well Tolerated Well Tolerated Well -Offloading No No No -Debridement - Subq, 1st 20sq cm No No No #3 L Lat heel -Time 08:35 09:28 08:44 -Correct Patient Yes Yes Yes -Correct Side, Site, Position Yes Yes Yes -Correct Procedure Yes Yes Yes -Procedure Performed Yes Yes Yes -Type of Procedure Debridement Debridement Debridement -Clinical Debridement Subcutaneous Subcutaneous Subcutaneous -Tissue Removed Subcutaneous Subcutaneous Subcutaneous -Post Debridement (cm) - Length 1.0 1.5 1.5 -Post Debridement (cm) - Width 0.7 1.2 1.0 -Post Debridement (cm) - Depth 0.1 0.1 0.1 -Total Square (Post) (cm) 0.70 1.80 1.50 -Area of Debridement (cm) - Length 1.0 1.5 1.5 -Area of Debridement (cm) - Width 0.7 1.2 1.0 -Total Square (Area) (cm) 0.70 1.80 1.50 -Tunneling No No No -Undermining/Tunneling No No No -Circular Undermining No No No -Wound/Ulcer Outcome Not Healed Not Healed Not Healed -Ulcer Cleansing Rinsed/ Rinsed/ Rinsed/ Irrigated with Irrigated with Irrigated with Saline Saline Saline -Foul Odor after Cleansing No No No -Bioengineered Tissue No No No -Bleeding Controlled with Pressure Pressure Pressure -Treatment Response Procedure Procedure Procedure Tolerated Well Tolerated Well Tolerated Well -Offloading No No No -Debridement - Subq, 1st 20sq cm No No No #2 L 3rd toe -Time 08:35 09:28 08:44 -Correct Patient Yes Yes Yes -Correct Side, Site, Position Yes Yes Yes -Correct Procedure Yes Yes Yes -Procedure Performed Yes Yes Yes -Type of Procedure Debridement Debridement Debridement -Clinical Debridement Subcutaneous Subcutaneous Subcutaneous -Tissue Removed Subcutaneous Subcutaneous Subcutaneous -Post Debridement (cm) - Length 1.5 4.0 4.5 -Post Debridement (cm) - Width 0.6 3.0 3.0 -Post Debridement (cm) - Depth 0.1 0.1 0.1 -Total Square (Post) (cm) 0.90 12.00 13.50 -Area of Debridement (cm) - Length 1.5 4.0 4.5 -Area of Debridement (cm) - Width 0.6 3.0 3.0 -Total Square (Area) (cm) 0.90 12.00 13.50 -Tunneling No No No -Undermining/Tunneling No No No -Circular Undermining No No No -Wound/Ulcer Outcome Not Healed Not Healed Not Healed -Ulcer Cleansing Rinsed/ Rinsed/ Rinsed/ Irrigated with Irrigated with Irrigated with Saline Saline Saline -Foul Odor after Cleansing No No No -Bioengineered Tissue No No No -Bleeding Controlled with Pressure Pressure Pressure -Treatment Response Procedure Procedure Procedure Tolerated Well Tolerated Well Tolerated Well -Offloading No No No -Debridement - Subq, 1st 20sq cm No No No #1 L Hallux -Time 08:36 09:29 08:45 -Correct Patient Yes Yes Yes -Correct Side, Site, Position Yes Yes Yes -Correct Procedure Yes Yes Yes -Procedure Performed Yes Yes Yes -Type of Procedure Debridement Debridement Debridement -Clinical Debridement Subcutaneous Subcutaneous Subcutaneous -Tissue Removed Subcutaneous Subcutaneous Subcutaneous -Post Debridement (cm) - Length 2.5 3.0 3.5 -Post Debridement (cm) - Width 2.4 3.0 4.0 -Post Debridement (cm) - Depth 0.1 0.1 0.1 -Total Square (Post) (cm) 6.00 9.00 14.00 -Area of Debridement (cm) - Length 2.5 3.0 3.5 -Area of Debridement (cm) - Width 2.4 3.0 4.0 -Total Square (Area) (cm) 6.00 9.00 14.00 -Tunneling No No No -Undermining/Tunneling No No No -Circular Undermining No No No -Wound/Ulcer Outcome Not Healed Not Healed Not Healed -Ulcer Cleansing Rinsed/ Rinsed/ Rinsed/ Irrigated with Irrigated with Irrigated with Saline Saline Saline -Foul Odor after Cleansing No No No -Bioengineered Tissue No No No -Bleeding Controlled with Pressure Pressure Pressure -Treatment Response Procedure Procedure Procedure Tolerated Well Tolerated Well Tolerated Well -Offloading No No No -Debridement - Subq, 1st 20sq cm No No No Pain Scale: 0-10 Numeric Is Patient Pain Free? Yes Yes Yes 02/20/22 02/27/22 11:59 08:29 Wound Center Nurse 2 #10 R 2nd toe -Time -Correct Patient No No -Correct Side, Site, Position No No -Correct Procedure No No -Procedure Performed No No -Type of Procedure -Clinical Debridement -Tissue Removed -Post Debridement (cm) - Length -Post Debridement (cm) - Width -Post Debridement (cm) - Depth -Total Square (Post) (cm) -Area of Debridement (cm) - Length -Area of Debridement (cm) - Width -Total Square (Area) (cm) -Tunneling -Undermining/Tunneling -Circular Undermining -Wound/Ulcer Outcome Not Healed Not Healed -Ulcer Cleansing -Foul Odor after Cleansing -Bioengineered Tissue -Bleeding Controlled with -Treatment Response -Offloading -Debridement - Subq, 1st 20sq cm -Debridement, SubQ, ea addt'l 20sq cm or part thereof #9 L Lat Foot -Time -Correct Patient No No -Correct Side, Site, Position No No -Correct Procedure No No -Procedure Performed No No -Type of Procedure -Clinical Debridement -Tissue Removed -Post Debridement (cm) - Length -Post Debridement (cm) - Width -Post Debridement (cm) - Depth -Total Square (Post) (cm) -Area of Debridement (cm) - Length -Area of Debridement (cm) - Width -Total Square (Area) (cm) -Tunneling -Undermining/Tunneling -Circular Undermining -Wound/Ulcer Outcome Not Healed Not Healed -Ulcer Cleansing -Foul Odor after Cleansing -Bioengineered Tissue -Bleeding Controlled with -Treatment Response -Offloading -Debridement - Subq, 1st 20sq cm #8 R LE Med -Time -Correct Patient No No -Correct Side, Site, Position No No -Correct Procedure No No -Procedure Performed No No -Type of Procedure -Clinical Debridement -Tissue Removed -Post Debridement (cm) - Length -Post Debridement (cm) - Width -Post Debridement (cm) - Depth -Total Square (Post) (cm) -Area of Debridement (cm) - Length -Area of Debridement (cm) - Width -Total Square (Area) (cm) -Tunneling -Undermining/Tunneling -Circular Undermining -Wound/Ulcer Outcome Not Healed Not Healed -Ulcer Cleansing -Foul Odor after Cleansing -Bioengineered Tissue -Bleeding Controlled with -Treatment Response -Offloading -Debridement - Subq, 1st 20sq cm #7 R Inf. LE -Time -Correct Patient No -Correct Side, Site, Position No -Correct Procedure No -Procedure Performed No -Type of Procedure -Clinical Debridement -Tissue Removed -Post Debridement (cm) - Length -Post Debridement (cm) - Width -Post Debridement (cm) - Depth -Total Square (Post) (cm) -Area of Debridement (cm) - Length -Area of Debridement (cm) - Width -Total Square (Area) (cm) -Tunneling -Undermining/Tunneling -Circular Undermining -Wound/Ulcer Outcome Not Healed -Ulcer Cleansing -Foul Odor after Cleansing -Bioengineered Tissue -Bleeding Controlled with -Treatment Response -Offloading -Debridement - Subq, 1st 20sq cm #6 R Sup LE -Time -Correct Patient No No -Correct Side, Site, Position No No -Correct Procedure No No -Procedure Performed No No -Type of Procedure -Clinical Debridement -Tissue Removed -Post Debridement (cm) - Length -Post Debridement (cm) - Width -Post Debridement (cm) - Depth -Total Square (Post) (cm) -Area of Debridement (cm) - Length -Area of Debridement (cm) - Width -Total Square (Area) (cm) -Tunneling -Undermining/Tunneling -Circular Undermining -Wound/Ulcer Outcome Not Healed Not Healed -Ulcer Cleansing -Foul Odor after Cleansing -Bioengineered Tissue -Bleeding Controlled with -Treatment Response -Offloading -Debridement - Subq, 1st 20sq cm #5 R Dorsal -Time -Correct Patient No No -Correct Side, Site, Position No No -Correct Procedure No No -Procedure Performed No No -Type of Procedure -Clinical Debridement -Tissue Removed -Post Debridement (cm) - Length -Post Debridement (cm) - Width -Post Debridement (cm) - Depth -Total Square (Post) (cm) -Area of Debridement (cm) - Length -Area of Debridement (cm) - Width -Total Square (Area) (cm) -Tunneling -Undermining/Tunneling -Circular Undermining -Wound/Ulcer Outcome Not Healed Not Healed -Ulcer Cleansing -Foul Odor after Cleansing -Bioengineered Tissue -Bleeding Controlled with -Treatment Response -Offloading -Debridement - Subq, 1st 20sq cm #4 L Med Cluster -Time -Correct Patient No No -Correct Side, Site, Position No No -Correct Procedure No No -Procedure Performed No No -Type of Procedure -Clinical Debridement -Tissue Removed -Post Debridement (cm) - Length -Post Debridement (cm) - Width -Post Debridement (cm) - Depth -Total Square (Post) (cm) -Area of Debridement (cm) - Length -Area of Debridement (cm) - Width -Total Square (Area) (cm) -Tunneling -Undermining/Tunneling -Circular Undermining -Wound/Ulcer Outcome Not Healed Not Healed -Ulcer Cleansing -Foul Odor after Cleansing -Bioengineered Tissue -Bleeding Controlled with -Treatment Response -Offloading -Debridement - Subq, 1st 20sq cm #3 L Lat heel -Time -Correct Patient No No -Correct Side, Site, Position No No -Correct Procedure No No -Procedure Performed No No -Type of Procedure -Clinical Debridement -Tissue Removed -Post Debridement (cm) - Length -Post Debridement (cm) - Width -Post Debridement (cm) - Depth -Total Square (Post) (cm) -Area of Debridement (cm) - Length -Area of Debridement (cm) - Width -Total Square (Area) (cm) -Tunneling -Undermining/Tunneling -Circular Undermining -Wound/Ulcer Outcome Not Healed Not Healed -Ulcer Cleansing -Foul Odor after Cleansing -Bioengineered Tissue -Bleeding Controlled with -Treatment Response -Offloading -Debridement - Subq, 1st 20sq cm #2 L 3rd toe -Time -Correct Patient No No -Correct Side, Site, Position No No -Correct Procedure No No -Procedure Performed No No -Type of Procedure -Clinical Debridement -Tissue Removed -Post Debridement (cm) - Length -Post Debridement (cm) - Width -Post Debridement (cm) - Depth -Total Square (Post) (cm) -Area of Debridement (cm) - Length -Area of Debridement (cm) - Width -Total Square (Area) (cm) -Tunneling -Undermining/Tunneling -Circular Undermining -Wound/Ulcer Outcome Not Healed Not Healed -Ulcer Cleansing -Foul Odor after Cleansing -Bioengineered Tissue -Bleeding Controlled with -Treatment Response -Offloading -Debridement - Subq, 1st 20sq cm #1 L Hallux -Time -Correct Patient No No -Correct Side, Site, Position No No -Correct Procedure No No -Procedure Performed No No -Type of Procedure -Clinical Debridement -Tissue Removed -Post Debridement (cm) - Length -Post Debridement (cm) - Width -Post Debridement (cm) - Depth -Total Square (Post) (cm) -Area of Debridement (cm) - Length -Area of Debridement (cm) - Width -Total Square (Area) (cm) -Tunneling -Undermining/Tunneling -Circular Undermining -Wound/Ulcer Outcome Not Healed Not Healed -Ulcer Cleansing -Foul Odor after Cleansing -Bioengineered Tissue -Bleeding Controlled with -Treatment Response -Offloading -Debridement - Subq, 20sq cm Pain Scale: 0-10 Numeric Is Patient Pain Free? Yes Yes WC - Nurse 3 - General Ulcer D/C NN Start: 02/01/22 08:00 Freq: Status: Active Protocol: Activity Type Activity Date Activity User E-sign Co-sign Detail Recorded Client Recorded Date Recorded By Document 02/01/22 09:10 [facility] [id number] 02/01/22 09:18 [facility] Document 02/08/22 10:01 DL [id number] 02/08/22 10:13 DL Document 02/15/22 09:25 [id number] 02/15/22 09:28 DL Document 02/20/22 12:21 [facility] [id number] 02/20/22 12:25 [facility] 02/01/22 02/08/22 02/15/22 09:10 10:01 09:25 Wound Care Nurse 3 #10 R 2nd toe -Ulcer Cleansing Rinsed/ Soap and Water Irrigated with Saline -Foul Odor after Cleansing No No No -Primary Dressing Applied Aquacel Extra Aquacel Extra, Aquacel Extra Optilok 6.5x10 -Other Dressing DRSG PER [place] RN -Primary Dressing Covered/Secured with Dry Gauze Dry Gauze & Dry Gauze & Roll Gauze, Roll Gauze, Secured with Secured with Tape Tape -Other Covering ABD -Aquacel Extra 3 3 2 -Optilok 6.5x10 1 #9 L Lat Foot -Ulcer Cleansing Rinsed/ Soap and Water Rinsed/ Irrigated with Irrigated with Saline Saline -Foul Odor after Cleansing No No No -Primary Dressing Applied Aquacel Extra Optilok 6.5x10 Aquacel Extra -Other Dressing ABD aquacel ex -Primary Dressing Covered/Secured with Dry Gauze Dry Gauze & Dry Gauze & Roll Gauze, Roll Gauze, Secured with Secured with Tape Tape -Other Covering PER [place] RN sivakumar -Aquacel Extra 0 0 -Optilok 6.5x10 1 #8 R LE Med -Ulcer Cleansing Rinsed/ Soap and Water Rinsed/ Irrigated with Irrigated with Saline Saline -Foul Odor after Cleansing No No No -Primary Dressing Applied Aquacel Extra Aquacel Extra -Other Dressing DRSG PER [facility] aquacel exsuperabsorber -Primary Dressing Covered/Secured with Dry Gauze & Dry Gauze & Roll Gauze, Roll Gauze, Secured with Secured with Tape Tape -Other Covering ABD sivakumar -Aquacel Extra 0 0 -Aquacel AG 4x4 #7 R Inf. LE -Ulcer Cleansing Rinsed/ Soap and Water Rinsed/ Irrigated with Irrigated with Saline Saline -Foul Odor after Cleansing No No No -Primary Dressing Applied Aquacel Extra Aquacel Extra -Other Dressing ABD, DRSG PER aquacel ex/ [place] RN superabsorber -Primary Dressing Covered/Secured with Dry Gauze & Dry Gauze & Roll Gauze, Roll Gauze, Secured with Secured with Tape Tape -Other Covering sivakumar -Aquacel Extra 0 0 -Aquacel AG 4x4 #6 R Sup LE -Ulcer Cleansing Rinsed/ Soap and Water Rinsed/ Irrigated with Irrigated with Saline Saline -Foul Odor after Cleansing No No No -Primary Dressing Applied Aquacel Extra Aquacel Extra -Other Dressing DRSG PER [place] RN aquacel ex/ super abosrber -Primary Dressing Covered/Secured with Dry Gauze & Dry Gauze & Roll Gauze, Roll Gauze, Secured with Secured with Tape Tape -Other Covering ABD, sivakumar -Aquacel Extra 0 0 -Aquacel AG 4x4 #5 R Dorsal -Ulcer Cleansing Rinsed/ Soap and Water Rinsed/ Irrigated with Irrigated with Saline Saline -Foul Odor after Cleansing No No No -Primary Dressing Applied Aquacel Extra Aquacel Extra -Other Dressing ABD aquacel ex/ supber absorber -Primary Dressing Covered/Secured with Dry Gauze & Dry Gauze & Roll Gauze, Roll Gauze, Secured with Secured with Tape Tape -Other Covering DRSG PER [place] RN sivakumar -Aquacel Extra 0 0 #4 L Med Cluster -Ulcer Cleansing Rinsed/ Soap and Water Rinsed/ Irrigated with Irrigated with Saline Saline -Foul Odor after Cleansing No No No -Primary Dressing Applied Aquacel Extra Aquacel Extra -Other Dressing DRSG PER [place] RN aquacel Ex / super absorber -Primary Dressing Covered/Secured with Dry Gauze & Dry Gauze & Roll Gauze, Roll Gauze, Secured with Secured with Tape Tape -Other Covering ABD sivakumar -Aquacel Extra 0 0 -Aquacel AG 4x4 #3 L Lat heel -Ulcer Cleansing Rinsed/ Soap and Water Rinsed/ Irrigated with Irrigated with Saline Saline -Foul Odor after Cleansing No No No -Primary Dressing Applied Aquacel Extra Aquacel Extra -Other Dressing HEEL HAT, DRSG aquacel ex/ PER [place] RN super absorber -Primary Dressing Covered/Secured with Dry Gauze & Dry Gauze & Roll Gauze Roll Gauze, Secured with Tape -Other Covering sivakumar -Aquacel Extra 0 0 #2 L 3rd toe -Ulcer Cleansing Rinsed/ Soap and Water Rinsed/ Irrigated with Irrigated with Saline Saline -Foul Odor after Cleansing No No No -Primary Dressing Applied Aquacel Extra Aquacel Extra -Other Dressing DRSG PER [place] RN aquacel Ex/ superabsorber -Primary Dressing Covered/Secured with Dry Gauze, Dry Gauze & Dry Gauze & Secured with Roll Gauze, Roll Gauze, Tape Secured with Secured with Tape Tape -Other Covering sivakumar -Aquacel Extra 0 0 #1 L Hallux -Ulcer Cleansing Rinsed/ Soap and Water Rinsed/ Irrigated with Irrigated with Saline Saline -Foul Odor after Cleansing No No No -Other Dressing SANTYLDIDIER aquacel Ex/ santyl PER [place] RN superabsorber -Primary Dressing Covered/Secured with Dry Gauze & Dry Gauze & Dry Gauze & Roll Gauze, Roll Gauze, Roll Gauze, Secured with Secured with Secured with Tape Tape Tape -Other Covering sivakumar BLE -Multi-Layered Wrap Application Multi-Layer Multi-Layer Comp - Bilat ($ Comp - Bilat ($ ) ) -Tubular Bandage -Size of Tubigrip Used -Size E ($) -Other Treatment Response Procedure Procedure Procedure Tolerated Well Tolerated Well Tolerated Well Pain Scale: 0-10 Numeric Is Patient Pain Free? Yes Yes Yes WC - Visit Discharge Discharge Condition Stable Stable Stable Ambulatory Status Ambulatory Ambulatory Ambulatory Transportation Private Auto Private Auto Private Auto Accompanied by son Facility Type Home Health 02/20/22 12:21 Wound Care Nurse 3 #10 R 2nd toe -Ulcer Cleansing Rinsed/ Irrigated with Saline -Foul Odor after Cleansing No -Primary Dressing Applied Hysept ($) -Other Dressing -Primary Dressing Covered/Secured with Dry Gauze & Roll Gauze, Secured with Tape -Other Covering -Aquacel Extra -Optilok 6.5x10 #9 L Lat Foot -Ulcer Cleansing Rinsed/ Irrigated with Saline -Foul Odor after Cleansing No -Primary Dressing Applied -Other Dressing dakins -Primary Dressing Covered/Secured with Dry Gauze & Roll Gauze, Secured with Tape -Other Covering abd -Aquacel Extra -Optilok 6.5x10 #8 R LE Med -Ulcer Cleansing Rinsed/ Irrigated with Saline -Foul Odor after Cleansing No -Primary Dressing Applied Aquacel AG 4x4 -Other Dressing -Primary Dressing Covered/Secured with Dry Gauze & Roll Gauze, Secured with Tape -Other Covering abd -Aquacel Extra -Aquacel AG 4x4 1 #7 R Inf. LE -Ulcer Cleansing Rinsed/ Irrigated with Saline -Foul Odor after Cleansing No -Primary Dressing Applied Aquacel AG 4x4 -Other Dressing -Primary Dressing Covered/Secured with Dry Gauze & Roll Gauze, Secured with Tape -Other Covering abd -Aquacel Extra -Aquacel AG 4x4 0 #6 R Sup LE -Ulcer Cleansing Rinsed/ Irrigated with Saline -Foul Odor after Cleansing No -Primary Dressing Applied Aquacel AG 4x4 -Other Dressing abd -Primary Dressing Covered/Secured with Dry Gauze & Roll Gauze, Secured with Tape -Other Covering -Aquacel Extra -Aquacel AG 4x4 0 #5 R Dorsal -Ulcer Cleansing Rinsed/ Irrigated with Saline -Foul Odor after Cleansing No -Primary Dressing Applied -Other Dressing dakins -Primary Dressing Covered/Secured with Dry Gauze & Roll Gauze, Secured with Tape -Other Covering -Aquacel Extra #4 L Med Cluster -Ulcer Cleansing Rinsed/ Irrigated with Saline -Foul Odor after Cleansing No -Primary Dressing Applied Aquacel AG 4x4 -Other Dressing -Primary Dressing Covered/Secured with Dry Gauze & Roll Gauze, Secured with Tape -Other Covering abd -Aquacel Extra -Aquacel AG 4x4 0 #3 L Lat heel -Ulcer Cleansing Rinsed/ Irrigated with Saline -Foul Odor after Cleansing No -Primary Dressing Applied -Other Dressing dakins -Primary Dressing Covered/Secured with Dry Gauze & Roll Gauze, Secured with Tape -Other Covering heel hat -Aquacel Extra #2 L 3rd toe -Ulcer Cleansing Rinsed/ Irrigated with Saline -Foul Odor after Cleansing No -Primary Dressing Applied -Other Dressing dakins -Primary Dressing Covered/Secured with Dry Gauze & Roll Gauze, Secured with Tape -Other Covering -Aquacel Extra #1 L Hallux -Ulcer Cleansing Rinsed/ Irrigated with Saline -Foul Odor after Cleansing No -Other Dressing dakins -Primary Dressing Covered/Secured with Dry Gauze & Roll Gauze, Secured with Tape -Other Covering BLE -Multi-Layered Wrap Application -Tubular Bandage Single Layer -Size of Tubigrip Used Size E -Size E ($) 4 -Other sent extra Treatment Response Procedure Tolerated Well Pain Scale: 0-10 Numeric Is Patient Pain Free? Yes WC - Visit Discharge Discharge Condition Stable Ambulatory Status Wheelchair Transportation Private Auto Accompanied by Facility Type [facility] Assessment/Plan Assessment/Plan (1) Peripheral vascular disease, unspecified: CODE(S): I73.9 - Peripheral vascular disease, unspecified PLAN: Exam performed recent labs/readiographs reviewd no debridement today due to to concern for arterial disease recommend avoiding compression due to arterial disease, light tubigrip used today -avoiding aggressive compression management dressed leg wounds with silver Ag, DSD and dakin's to bilateral feet. Arterial/venous studies ordered, scheduled for Preemptive vascular referral ordered. discussed that patient will likely lose left great toe due to level of necrosis and that he is high risk for proximal amputation. 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
== END 2022-02-28 23:59 | disposition home or self-care (01) ==
LOC: WC 08:00
PROVIDERS: PCP Family Medicine; Referring Provider Internal Medicine; Visit Provider Podiatrist
DX: E11.621 Type 2 diabetes mellitus with foot ulcer (principal); E11.51 Type 2 diabetes mellitus with diabetic peripheral angiopathy without gangrene; L97.512 Non-pressure chronic ulcer of other part of right foot with fat layer exposed; L97.522 Non-pressure chronic ulcer of other part of left foot with fat layer exposed; L97.912 Non-pressure chronic ulcer of unspecified part of right lower leg with fat layer exposed; L97.922 Non-pressure chronic ulcer of unspecified part of left lower leg with fat layer exposed; I50.22 Chronic systolic (congestive) heart failure; I13.0 Hypertensive heart and chronic kidney disease with heart failure and stage 1 through stage 4 chronic kidney disease, or unspecified chronic kidney disease; E11.22 Type 2 diabetes mellitus with diabetic chronic kidney disease; I73.9 Peripheral vascular disease, unspecified; I48.0 Paroxysmal atrial fibrillation; I48.92 Unspecified atrial flutter; I25.5 Ischemic cardiomyopathy; Z79.01 Long term (current) use of 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s; L03.119 Cellulitis of unspecified part of limb; E78.5 Hyperlipidemia, unspecified; I25.10 Atherosclerotic heart disease of native coronary artery without angina pectoris; N18.9 Chronic kidney disease, unspecified; Z79.82 Long term (current) use of aspirin; R06.09 Other forms of dyspnea
CPT/HCPCS: 11042; 11045; 29581; 73630; 73660; 87070; 87075; 87077; 87186; 87205; 99214; G0463

== ENCOUNTER 2022-02-27 09:14 | Outpatient (RCR) | payer MEDICARE, OTHER, SELFPAY ==
[2022-02-27 09:56] LABS: International Normalized Ratio 5.4; Prothrombin Time (Protime)PT. 49.4 SECONDS (11.7-14.9)
== END 2022-02-28 18:00 | disposition home or self-care (01) ==
LOC: LAB 09:14
PROVIDERS: PCP Family Medicine; Referring Provider Internal Medicine Cardiovascular Disease; Visit Provider Internal Medicine Cardiovascular Disease
DX: L97.522 Non-pressure chronic ulcer of other part of left foot with fat layer exposed; L97.512 Non-pressure chronic ulcer of other part of right foot with fat layer exposed; Z79.01 Long term (current) use of 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s; I48.0 Paroxysmal atrial fibrillation; I48.92 Unspecified atrial flutter
CPT/HCPCS: 36415; 85610; 99214; G0463

== ENCOUNTER 2022-03-01 13:22 | Inpatient (IN) | payer MEDICARE, OTHER, SELFPAY ==
[2022-03-01] VITALS (25 sets, daily range): BP systolic 73–215; BP diastolic 33–182; PULSE 57–106; RESP 14–28; TEMP 35.9–37.1; O2SAT 92–100; BMI 26.6; BMI 26.0
--- NOTE | 2022-03-01 13:54 | EKG12_ITS ---
Test Reason : Blood Pressure : / mmHG Vent. Rate : 099 BPM Atrial Rate : 099 BPM P-R Int : 000 ms QRS Dur : 156 ms QT Int : 374 ms P-R-T Axes : 000 027 112 degrees QTc Int : 479 ms Undetermined rhythm : Consider atrial fibrillation Non-specific intra-ventricular conduction block Inferior infarct , age undetermined, cannot be excluded Abnormal ECG Confirmed by YAN SANCHEZ, RAUL ([id number]), editorial manager CHINYERE FIELDS ([id number]) on 03/07/2022 9:05:52 AM Referred By: Confirmed By:RAUL HEREDIA MD
--- NOTE | 2022-03-01 13:59 | EDS_ITS ---
HPI History of Present Illness Chief Complaint: Shortness of Breath Detail of Chief Complaint: Shortness of breath since cardioversion if not longer Informant: patient and spouse/S.O. Onset/Context/Timing Onset: Weeks Context: sudden Timing: Continuous and Waxes and wanes Quality: Positive for Dyspnea on exertion and Orthopnea Current Severity: Mild Maximum Severity: Severe Worsened by: Exertion and Lying flat Relieved by: Nothing Associated Symptoms cough; Negative for rhinorrhea, post nasal drip, ear pain, fever, sore throat, subjective, chills, sweats, clear sputum or white sputum Chest Pain: Positive for None Narrative Narrative: Patient is a 76-year-old male who presents with shortness of breath since cardioversion. Per its been longer. He sleeps in the chair upright. He has had swelling of his legs. He denies chest discomfort. He feels as if he is being smothered. He cannot walk across the room. He has been on oxygen since he was cardioverted. He is on Coumadin. He denies history of PE or DVT. Stool. He denies history of anemia. He denies fever, chills night sweats. [place] rhinorrhea, congestion, postnasal drainage. [place] sore throat. Patient denies nausea, vomiting diarrhea. Patient is not a good informant. had to supplement. PE Risk Factors: Positive for Recent immobilization; Negative for Cancer, OCP + Smoking + > 35, Prior DVT or PE, Recent surgery or Recent travel Prior similar symptoms: No Recent Illness/Hospitalization: Yes [facility] Medical History Acute on chronic systolic (congestive) heart failure Alcohol abuse Atherosclerosis of coronary artery bypass graft without angina pectoris Atrial fibrillation Bilateral lower extremity edema CAD (coronary artery disease) Cardiac dysrhythmia Cardiomyopathy Chronic systolic congestive heart failure Chronic ulcer of toe of left foot with fat layer exposed Congestive heart failure Elevated troponin Essential (primary) hypertension GERD (gastroesophageal reflux disease) Heavy alcohol use HLD (hyperlipidemia) Implantable cardioverter-defibrillator (ICD) at end of battery life Ischemic cardiomyopathy [facility] current use of amiodarone [facility]iary current use of 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 Non-rheumatic tricuspid valve insufficiency NSTEMI (non-ST elevated myocardial infarction) 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 RITESH (obstructive sleep apnea) Paroxysmal atrial fibrillation Paroxysmal atrial fibrillation with rapid ventricular response Paroxysmal atrial flutter Peripheral vascular disease Pleural effusion Secondary pulmonary arterial hypertension Skin ulcer of left great toe with fat layer exposed Sleep apnea Type 2 diabetes mellitus Type 2 diabetes mellitus Ulcer of left lower extremity with fat layer exposed Ulcer of right foot with fat layer exposed Ulcer of right lower extremity with fat layer exposed Ventricular tachycardia Home Medications aspirin 81 mg tablet,delayed release 81 mg PO DAILY heart health 09/19/18 [History Last Taken 02/01/22] Handicap Placard #1 ea 08/28/19 [Rx Last Taken Unknown] atorvastatin 80 mg tablet 80 mg PO QHS #90 tabs 05/23/21 [Rx Last Taken 11/02/21] Novolin N Flexpen 5 units QHS diabetes 11/03/21 [History Last Taken Unknown] Novolin N Flexpen 12 units DAILY daily 11/03/21 [History Last Taken 11/03/21] warfarin 2 mg tablet (Jantoven) 2 mg PO DINNER #0 tabs 11/06/21 [Rx Last Taken 01/31/22] omeprazole 20 mg capsule,delayed release 20 mg PO DAILY PRN acid reflux 11/14/21 [History Last Taken 02/01/22] ascorbic acid (vitamin C) 500 mg tablet 500 mg PO DAILY 01/01/22 [History Last Taken Unknown] cholecalciferol (vitamin D3) 25 mcg (1,000 unit) capsule 25 mcg PO DAILY 01/01/22 [History Last Taken Unknown] potassium chloride 20 mEq tablet,extended release 20 meq PO DAILY 01/24/22 [History Last Taken Unknown] metoprolol succinate 100 mg tablet,extended release 24 hr 100 mg PO BID #180 tabs 02/05/22 [Rx Last Taken Unknown] furosemide 40 mg tablet 40 mg PO BID 02/28/22 [History Last Taken Unknown] spironolactone 25 mg tablet 25 mg PO DAILY #30 tabs 02/28/22 [Rx Last Taken Unknown] Allergy/AdvReac Type Severity Reaction Status Date / Time amiodarone AdvReac Shortness Verified 03/01/22 13:28 of breath lisinopril AdvReac cough Verified 03/01/22 13:28 Surgical History H/O coronary artery bypass surgery (1997) History of coronary artery stent placement (01/2016) History of implantable cardiac defibrillator (ICD) (02/11/20) History of thoracentesis Hx of CABG S/P PTCA (percutaneous transluminal coronary angioplasty) Social History (Updated 03/01/22 @ 14:[address] Abdoul Loyola MD) household members: spouse Smoking Status: Never smoker alcohol intake: current alcohol intake frequency: a few times a week Alcohol type: beer substance use type: does not use caffeine: Yes Type: coffee Number of servings: 2 what type of physical activity do you participate in: none seatbelt use: never do you feel safe at home: Yes ROS ROS ED Constitutional Constitutional ED: Denies chills, fever(s), sweats or weight loss Eyes Eyes: Denies blurry vision, change in vision or diplopia ENT ENT ED: Denies ear pain, rhinorrhea or sore throat Cardiovascular Cardiovascular: Reports orthopnea; Denies chest pain, palpitations, paroxysmal nocturnal dyspnea or racing heartbeat Respiratory/Chest Respiratory/Chest: Reports dyspnea, dyspnea on exertion and orthopnea; Denies cough or paroxysmal nocturnal dyspnea Gastrointestinal Gastrointestinal: Denies abdominal pain, constipation, diarrhea, melena, nausea or vomiting Genitourinary Genitourinary ED: Reports other Details: states he normally urinates a lot. He has been urinating minimal amount over a 24-hour period ; Denies dysuria, hematuria or urinary frequency Musculoskeletal Musculoskeletal: Denies arthralgias, back pain, myalgias or neck pain Integumentary Reports rash; Denies Abrasions Neurologic Neurologic: Reports weakness; Denies headache(s) or paresthesias Psychiatric Psychiatric: Denies anxiety or depression Hematologic/Lymphatic Hematologic/Lymphatic: Reports easy bleeding and easy bruising EXAM Physical Exam Const Vital Signs: 03/01/22 13:28 03/01/22 13:51 03/01/22 13:55 Temperature 96.6 F L Temperature Source Temporal Pulse Rate 64 106 H Respiratory Rate 20 H 24 H Respiratory Effort Short of Breath Respiratory Pattern Tachypnea Blood Pressure 73/55 L 125/107 H Blood Pressure Mean 61 113 Pulse Ox 100 99 Oxygen Delivery Method Room Air Nasal Cannula Nasal Cannula Oxygen Flow Rate (L/min) 3 3 03/01/22 14:17 03/01/22 14:17 03/01/22 14:22 Temperature 97.6 F L Temperature Source Oral Pulse Rate 81 81 Respiratory Rate 24 H 24 H Respiratory Effort Respiratory Pattern Blood Pressure 89/51 L 89/51 L Blood Pressure Mean 63 63 Pulse Ox 100 100 100 Oxygen Delivery Method Nasal Cannula Nasal Cannula Nasal Cannula Oxygen Flow Rate (L/min) 3 3 3 Positive well nourished and well developed Constitutional Narrative: Patient does not look well. He is tachypneic. He is not hypoxic. General Appearance ED: well developed and pallor; Negative for NAD HEENT Reports moist mucous membranes HEENT Narrative: Ears normal. Nares patent. Uvula midline. atraumatic; Negative for trauma or tenderness Eyes PERRL and EOMs intact bilaterally General Eye ED: Yes pale conjunctiva; Negative for scleral icterus Neck no lymphadenopathy, supple, no meningeal signs and no JVD Neck Narrative: There is no JE. Trachea is midline. Resp No normal respiratory effort and clear to auscultation bilaterally Cardio regular rate, regular rhythm, S1 normal heart sound, S2 normal heart sound and no murmurs Cardio Narrative: Heart tones are distant. GI non-tender, non-distended and no masses Auscultation: normoactive bowel sounds Back/Spine no CVA tenderness Extremity Extremity Narrative: There are multiple bruises upper and lower extremity. He has significant lymphedema of the lower extremities. Unable to palpate DP or PT pulse because he is so edematous. General Extremety ED: Yes edema General Extremity: edema Neuro No oriented x3, CN's II-XII intact bilaterally and no sensory deficits noted [place] Coma Scale: document GCS findings Spontaneous Obeys Commands Confused 14 Sensorium / Orientation: alert Skin No no wounds and No skin turgor normal General Skin Exam: pallor Rashes: no rashes MDM MDM MDM Narrative Medical decision making narrative: Differential diagnosis would include heart failure, pericardial effusion, pneumonia, pulmonary embolus cardiac ischemia. EKG, chest x-ray and appropriate labs were obtained. Patient is not hypoxic on oxygen. Since patient has EKG changes with potassium 6.7 he was treated for hyperkalemia with Lab Data Attestation: I reviewed the patient's lab results. Lab results narrative: White count is upper end of normal. H&H 9.9 and 32 point. Potassium 6.7. There is no obvious peaked T waves. We will attain old for comparison. He does have a widened QRS complex. Unknown if this is new or old. CO2 is 16 with an anion gap of 15. BUN is 156 with a creatinine 9 0.65. GFR is 6. BUN/creatinine ratio is 16:1. Troponins elevated 79. Suspect this is due to his fluid overload state and renal failure Labs: Laboratory Results - last 24 hr 03/01/22 03/01/22 03/01/22 13:48 13:48 13:48 WBC 11.0 RBC 3.36 L Hgb 9.9 L Hct 32.1 L MCV 95.5 H MCH 29.5 MCHC 30.8 L RDW Std Deviation 53.6 H RDW Coeff of Nguyen 15.4 H Plt Count 187 MPV 10.3 Immature Gran % (Auto) 0.500 Neut % (Auto) 90.0 H Lymph % (Auto) 3.3 L [place] % (Auto) 5.9 Eos % (Auto) 0.2 Baso % (Auto) 0.1 Absolute Neuts (auto) 9.9 H Absolute Lymphs (auto) 0.36 L Nucleated RBC % 0 PT INR Sodium 131 L Potassium 6.7 H* Chloride 100 Carbon Dioxide 16.0 L Anion Gap 15 BUN 156 H* Creatinine 9.65 H* Estim Creat Clear Calc 6.09 Est GFR (MDRD) Af Amer 7 L Est GFR (MDRD) Non-Af 6 L BUN/Creatinine Ratio 16.2 Glucose 87 Calcium 7.8 L Troponin I High Sens 79 H B-Natriuretic Peptide 549.0 H 03/01/22 14:13 WBC RBC Hgb Hct MCV MCH MCHC RDW Std Deviation RDW Coeff of Nguyen Plt Count MPV Immature Gran % (Auto) Neut % (Auto) Lymph % (Auto) [place] % (Auto) Eos % (Auto) Baso % (Auto) Absolute Neuts (auto) Absolute Lymphs (auto) Nucleated RBC % PT 38.2 H INR 3.9 Sodium Potassium Chloride Carbon Dioxide Anion Gap BUN Creatinine Estim Creat Clear Calc Est GFR (MDRD) Af Amer Est GFR (MDRD) Non-Af BUN/Creatinine Ratio Glucose Calcium Troponin I High Sens B-Natriuretic Peptide Radiography Chest X-Ray - ED: 1 View (Cardiomegaly. Pacemaker noted. Minimal chronic changes. Perihilar regions unremarkable. No evidence of heart failure or infiltrate. [place] structures unremarkable. This independently viewed and interpreted by me at 1427.) and Read by ED Physician Diagnostic Testing: Clinical Impression(s) from Imaging Studies Chest X-Ray 03/01/22 14:10 IMPRESSION: Mild degree of increased markings at the lung bases with blunting of the right costophrenic angle. Electronically Signed: Akil Davis MD at 14:38 EST , EKG Initial EKG: Attestation: I personally reviewed and interpreted this EKG as follows: Interpretation: Sinus Rhythm (Sinus rhythm with a rate of 99. MO interval is approximately 240 ms. QRS duration is prolonged at 156 ms. QT durations are 74 ms. [place] is normal. The nonspecific intraventricular conduction delay is new from prior EKG. His T waves are not different from prior EKG obtained February 01, 2022.) Critical Care Time Critical Care Time: Yes Critical care time (excluding procedures): 30-74 minutes (34), Including time spent: (History, physical, documentation, review of prior records, interpretation laboratory results and initiation of treatment), Discussing w/Patient &/or Family/Research Nutritionist, Discussing w/Consultants and Arranging Admission or Transfer Discharge Plan Dx/Rx/DC Orders Clinical Impression: Acute renal failure (ARF), Ischemic cardiomyopathy, Chronic diarrhea, Bilateral lower extremity edema, Type 2 diabetes mellitus, MENDOZA (dyspnea on exertion), Acute hyperkalemia, Anemia, Anticoagulant long-term use, Acute hypotension Disposition Disposition: Acute Care Hospital [facility]
[2022-03-01 14:03] LABS: Absolute Lymphocyte Count 0.36 X10^3/uL (0.83-4.51); Absolute Neutrophil Count 9.9 X10^3/uL (2.0-7.7); Basophil# 0.01 X10^3/uL; Basophil% 0.1 % (0-1); Eosinophil# 0.02 X10^3/uL; Eosinophils% 0.2 % (0-5); Hematocrit 32.1 % (40-54); Hemoglobin 9.9 g/dL (13.0-16.5); Lymphocyte # 0.36 X10^3/ul (0.83-4.51); Lymphocyte % 3.3 % (19-41); Mean Corp Hgb Conc 30.8 g/dL (32-36); Mean Corpuscular Hgb 29.5 pg (27.0-32.0); Mean Corpuscular Volume 95.5 fL (80-94); Mean Platelet Vol. 10.3 fl (6.2-12.0); Monocyte# 0.65 X10^3/uL; Monocyte% 5.9 % (0-10); NRBC Flagged by Analyzer 0 % (0-5); POSITIVE DIFFERENTIAL YES; Platelet Count 187 K/mm3 (150-450); RBC Distribution Width CV 15.4 % (11.6-14.6); RBC Distribution Width SD 53.6 fl (35.1-43.9); Red Blood Count 3.36 M/mm3 (4.6-6.2)
[2022-03-01 14:04] LABS: Differential Indicated SCAN CRITERIA MET
--- NOTE | 2022-03-01 14:10 | RAD_ITS ---
STUDY: X-RAY CHEST REASON FOR EXAM: Male, 76 years old. Dyspnea, orthopnea and lymphedema TECHNIQUE: Single AP portable view of the chest. COMPARISON: Comparison is made with prior chest radiograph dated 11/03/2021. FINDINGS: EKG electrodes are seen. There is blunting of the right corresponding ankle. Mild increased markings are seen at the lung bases. Stable linear calcific plaques at the left lung base. Sternal cerclage wires and vascular clips are present from a prior sternotomy and coronary artery bypass graft procedure (CABG). Mild cardiomegaly. A left-sided unipolar pacemaker is seen. Normal mediastinum and sean. Normal visualized pulmonary arteries. There is atherosclerotic calcification of the aortic arch with tortuosity. There are diffuse degenerative changes of the visualized thoracic spine. There is degenerative osteoarthritis of the bilateral shoulders. There is no demonstrated abnormality of the visualized soft tissue structures of the upper abdomen. RAD/Chest 1 View (Portable) IMPRESSION: Mild degree of increased markings at the lung bases with blunting of the right costophrenic angle. Electronically Signed: Akil Davis MD at 14:38 EST ,
[2022-03-01 14:25] LABS: Anion Gap 15 (5-15); BUN 156 mg/dL (7-18); BUN/Creat Ratio 16.2 RATIO (10-20); Calcium,Total 7.8 mg/dL (8.5-10.1); Chloride 100 mmol/L (98-107); Creatinine, Serum 9.65 mg/dL (0.70-1.30); EST Glomerular Filtration Rate 6 mL/min (>60); Est Glom Filt Rate - Afr Amer 7 mL/min (>60); Estimated Creatinine Clearance 6.09 ml/min; Glucose 87 mg/dL (74-106); Potassium 6.7 mmol/L (3.5-5.1); Sodium Level 131 mmol/L (136-145); Troponin-I HS 79 pg/mL (3.0-78.0)
[2022-03-01 14:32] LABS: International Normalized Ratio 3.9; Prothrombin Time (Protime)PT. 38.2 SECONDS (11.7-14.9)
--- NOTE | 2022-03-01 14:51 | HP.PCM.HOS_ITS ---
HPI - General General Date of Admission: 03/01/22 Date of Service: 03/01/22 Chief Complaint: Dyspnea, orthopnea, edema. HPI Narrative The patient is a 76 y/o F w/ PMHx: Chronic anemia, Chronic Systolic CHF/Ischemic cardiomyopathy s/p AICD, HTN, HLD, CAD s/p CABG and PCI, EtOH abuse, GERD, PAF on coumadin, RITESH who presents to the [facility] ED on 03/01/22 with history of recent cardioversion with since then dyspnea, worse with exertion, orthopnea with nonproductive cough reportedly sleeping upright in a chair with significant lower extremity swelling reporting that he feels as though he is being smothered requiring oxygen since his cardioversion however felt worsen prompting ED evaluation. In the ED also his BL LE dressings were removed and he had notable BL LE diabetic foot wounds with notable serous BL LE drainage/edema recently evaluated the Saturday prior by Dr. Fan for the first time. Patient reports that they look similar to that visit; however, his notes it appears worse with more drainage. He was supposed to come to the hospital today on day of presentation for planned REBECCA/PVR ordered per Podiatry but did not have this done because of his acute presentation. He denies any fever or chills. Of note out patient secondary to the appearance of his bilateral lower extremity foot wounds he had recently been started on high-dose ciprofloxacin as well as doxycycline. Work-up in the ED included T 96.2, heart rate 93, BP initially 123/83, respiratory rate 16, high percent on room air however most recent vital signs wi th BP 89/51, respiratory rate 24 and 100% on 3 L nasal cannula, CBC with WC 11, hemoglobin 9.9, MCV 95.5, platelets 187 with left shift and lymphopenia, coags with PT 38.2, INR 3.9, BMP with sodium 131, potassium 6.7 not noted to be hemolyzed, carbon dioxide 16, BUN/creatinine 156/9.65, calcium 7.8, troponin 79, BNP 549, INR 3.9, chest x-ray with mild degree of increased markings at the lung bases with blunting of the right costophrenic angle, EKG with sinus rhythm with nonspecific changes with elevated T-waves with no acute evidence of ischemia. In the ED patient administered albuterol, calcium gluconate, dextrose, insulin 10 units IV x1 as well as sodium bicarb. In the ED patient despite IVFs eventual had worsened hypotension and NEP was started with central line placement in the ED also. [facility] Medical History Acute on chronic systolic (congestive) heart failure Alcohol abuse Atherosclerosis of coronary artery bypass graft without angina pectoris Atrial fibrillation Bilateral lower extremity edema CAD (coronary artery disease) Cardiac dysrhythmia Cardiomyopathy Chronic systolic congestive heart failure Chronic ulcer of toe of left foot with fat layer exposed Congestive heart failure Elevated troponin Essential (primary) hypertension GERD (gastroesophageal reflux disease) Heavy alcohol use HLD (hyperlipidemia) Implantable cardioverter-defibrillator (ICD) at end of battery life 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 Non-rheumatic tricuspid valve insufficiency NSTEMI (non-ST elevated myocardial infarction) 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 RITESH (obstructive sleep apnea) Paroxysmal atrial fibrillation Paroxysmal atrial fibrillation with rapid ventricular response Paroxysmal atrial flutter Peripheral vascular disease Pleural effusion Secondary pulmonary arterial hypertension Skin ulcer of left great toe with fat layer exposed Sleep apnea Type 2 diabetes mellitus Type 2 diabetes mellitus Ulcer of left lower extremity with fat layer exposed Ulcer of right foot with fat layer exposed Ulcer of right lower extremity with fat layer exposed Ventricular tachycardia Home Medications aspirin 81 mg tablet,delayed release 81 mg PO DAILY heart health 09/19/18 [History Last Taken 03/01/22] Handicap Placard #1 ea 08/28/19 [Rx Last Taken Unknown] atorvastatin 80 mg tablet 80 mg PO QHS #90 tabs 05/23/21 [Rx Last Taken 02/28/22] Novolin N Flexpen 5 units QHS diabetes 11/03/21 [History Last Taken 02/28/22] Novolin N Flexpen 12 units DAILY daily 11/03/21 [History Last Taken 02/28/22] warfarin 2 mg tablet (Jantoven) 2 mg PO DINNER #0 tabs 11/06/21 [Rx Last Taken 02/26/22] omeprazole 20 mg capsule,delayed release 20 mg PO DAILY PRN acid reflux 11/14/21 [History Last Taken 02/01/22] ascorbic acid (vitamin C) 500 mg tablet 500 mg PO DAILY 01/01/22 [History Last Taken 03/01/22] cholecalciferol (vitamin D3) 25 mcg (1,000 unit) capsule 25 mcg PO DAILY 01/01/22 [History Last Taken Unknown] potassium chloride 20 mEq tablet,extended release 20 meq PO DAILY 01/24/22 [History Last Taken 03/01/22] metoprolol succinate 100 mg tablet,extended release 24 hr 100 mg PO BID #180 tabs 02/05/22 [Rx Last Taken 02/27/22] furosemide 40 mg tablet 40 mg PO BID 02/28/22 [History Last Taken 03/01/22] spironolactone 25 mg tablet 25 mg PO DAILY #30 tabs 02/28/22 [Rx Last Taken 03/01/22] ciprofloxacin HCl 750 mg tablet 750 mg PO BID INFECTION 03/01/22 [History Last Taken 03/01/22] doxycycline hyclate 100 mg tablet 100 mg PO BID INFECTION 03/01/22 [History Last Taken 03/01/22] losartan 25 mg tablet 25 mg PO DAILY HTN 03/01/22 [History Last Taken 02/28/22] Allergy/AdvReac Type Severity Reaction Status Date / Time amiodarone AdvReac Shortness Verified 03/01/22 13:28 of breath lisinopril AdvReac cough Verified 03/01/22 13:28 Family History (Updated 03/01/22 @ 21:[address] Lor Lazaro MD) Mother Bleeding in brain due to brain aneurysm Father History of aneurysm of peripheral artery Surgical History H/O coronary artery bypass surgery (1997) History of coronary artery stent placement (01/2016) History of implantable cardiac defibrillator (ICD) (02/11/20) History of thoracentesis Hx of CABG S/P PTCA (percutaneous transluminal coronary angioplasty) Social History household members: spouse Smoking Status: Never smoker alcohol intake: current alcohol intake frequency: a few times a week Alcohol type: beer substance use type: does not use caffeine: Yes Type: coffee Number of servings: 2 what type of physical activity do you participate in: none seatbelt use: never do you feel safe at home: Yes ROS ROS Narrative Admission Review of Systems: CONSTITUTIONAL: No weight loss, fever, chills, + weakness or fatigue, weight gain. HEENT: Eyes: No visual loss, blurred vision, double vision or yellow sclerae. Ears, Nose, Throat: No hearing loss, sneezing, congestion, runny nose or sore throat. SKIN: + Significant bilateral lower extremity diabetic foot ulcerations and wounds with significant serous drainage. CARDIOVASCULAR: + Significant edema, weight gain, orthopnea. No chest pain, chest pressure or chest discomfort, palpitations, syncopal events. RESPIRATORY: + shortness of breath, cough without marked sputum, No wheezing, hemoptysis. GASTROINTESTINAL: No anorexia, nausea, vomiting or diarrhea, abdominal pain, melena, BRBPR. GENITOURINARY: No dysuria, frequency, urgency or retention. NEUROLOGICAL: No headache, dizziness, syncope, paralysis, ataxia, numbness or tingling in the extremities, focal weakness, change in bowel or bladder control, seizure. MUSCULOSKELETAL: + muscle, back pain, joint pain or stiffness. HEMATOLOGIC: + anemia, bleeding or bruising. LYMPHATICS: No enlarged nodes. No history of splenectomy. PSYCHIATRIC: No history of depression or anxiety. ENDOCRINOLOGIC: No reports of sweating, cold or heat intolerance. No polyuria or polydipsia. ALLERGIES: No history of asthma, hives, eczema or rhinitis. Vital Signs Vital Signs Vital Signs: 03/01/22 13:28 03/01/22 13:51 03/01/22 13:55 Temperature 96.6 F L Temperature Source Temporal Pulse Rate 64 106 H Respiratory Rate 20 H 24 H Respiratory Effort Short of Breath Respiratory Pattern Tachypnea Blood Pressure 73/55 L 125/107 H Blood Pressure Mean 61 113 Pulse Ox 100 99 Oxygen Delivery Method Room Air Nasal Cannula Nasal Cannula Oxygen Flow Rate (L/min) 3 3 03/01/22 14:17 03/01/22 14:17 03/01/22 14:22 Temperature 97.6 F L Temperature Source Oral Pulse Rate 81 81 Respiratory Rate 24 H 24 H Respiratory Effort Respiratory Pattern Blood Pressure 89/51 L 89/51 L Blood Pressure Mean 63 63 Pulse Ox 100 100 100 Oxygen Delivery Method Nasal Cannula Nasal Cannula Nasal Cannula Oxygen Flow Rate (L/min) 3 3 3 Weight Weight: 170 lb Body Mass Index (BMI) 26.6 Physical Exam Narrative Physical Examination: General: Awake, alert, oriented x 3 and cooperative, seated upright in the ED bed, fatigued and ill-appearing Skin: Normal color, normal turgor, no icterus, no cyanosis except significant bilateral lower extremity diabetic foot ulcers, wounds, significant dark hue/duskiness to the left great toe with deep ulceration as well, bilateral lower extremities with significant edema with profuse serous drainage. HEENT: AT/NC, EOMI, PERRLA, mildly dry MM, no carotid bruits or JVD noted. Lungs: Significantly diminished, greater bases, mildly increased respiratory rate but no distress at that point, no rales, ronchi or wheezing. Heart: Regular rate and rhythm; no gallop, rub audible. Abdomen: Soft, NTTP, ND, distant hypoactive BS, no HSM. Extremities: No cyanosis, no clubbing, see skin, significant pedal to proximal juarez pitting edema with profuse serous drainage. Neurological: Patient awake, alert, oriented as noted, cognitive function intact; pupils equally reactive to light and accommodation, cranial nerves II- XII grossly normal, moving all 4 extremities, no focal deficits, strength moderately to severely global decrease secondary to acute presentation. Psychiatric: Affect appears fatigued, ill-appearing, no acute evidence of depressive or anxiety feelings. Results Lab / Micro Data Result Diagrams: 03/01/22 13:48 03/01/22 13:48 Labs: Laboratory Results - last 24 hr 03/01/22 13:48: WBC 11.0, RBC 3.36 L, Hgb 9.9 L, Hct 32.1 L, MCV 95.5 H, MCH 29.5, MCHC 30.8 L, RDW Std Deviation 53.6 H, RDW Coeff of Nguyen 15.4 H, Plt Count 187, MPV 10.3, Immature Gran % (Auto) 0.500, Neut % (Auto) 90.0 H, Lymph % (Auto ) 3.3 L, Terry % (Auto) 5.9, Eos % (Auto) 0.2, Baso % (Auto) 0.1, Absolute Neuts (auto) 9.9 H, Absolute Lymphs (auto) 0.36 L, Nucleated RBC % 0 03/01/22 13:48: Sodium 131 L, Potassium 6.7 H*, Chloride 100, Carbon Dioxide 16.0 L, Anion Gap 15, BUN 156 H*, Creatinine 9.65 H*, Estim Creat Clear Calc 6.09, Est GFR (MDRD) Af Amer 7 L, Est GFR (MDRD) Non-Af 6 L, BUN/Creatinine Ratio 16.2, Glucose 87, Calcium 7.8 L, Troponin I High Sens 79 H 03/01/22 13:48: B-Natriuretic Peptide 549.0 H 03/01/22 14:13: PT 38.2 H, INR 3.9 Radiology Impression Chest X-Ray 03/01/22 14:10 IMPRESSION: Mild degree of increased markings at the lung bases with blunting of the right costophrenic angle. Electronically Signed: Akil Davis MD at 14:38 EST , Assessment & Plan Assessment/Plan (1) Septic shock: PLAN: Plan The patient is a 76 y/o F w/ PMHx: Chronic anemia, Chronic Systolic CHF/Ischemic cardiomyopathy s/p AICD, HTN, HLD, CAD s/p CABG and PCI, EtOH abuse, GERD, PAF on coumadin, RITESH who presents to the [facility] ED on 03/01/22 with history of recent cardioversion with since then dyspnea, worse with exertion, orthopnea with nonp roductive cough reportedly sleeping upright in a chair with significant lower extremity swelling reporting that he feels as though he is being smothered requiring oxygen since his cardioversion however felt worsen prompting ED evaluation. #1. Acute Septic Shock secondary to BL LE Infected Diabetic Foot Wounds as well as concern for bilateral lower lobe and left upper lobe pneumonia with Acute Hy poxia (noted on repeat chest x-ray following central line placement) w/ evidence of sepsis-induced organ dysfunction/tissue hypoperfusion and sepsis induced hypotension: Will admit patient to the ICU, maintain on cardiac monitoring, continue to maintain on cardiac monitoring, given patient's recent significant overload type symptoms with CHF deferred aggressive hydration and judiciously hydrated, continue bicarb drip, continue norepinephrine placement with central line placed, continue broad-spectrum antibiotic therapy with IV Zosyn and vancomycin, given no overt discharge from the wound and primarily serous drainage will defer immediate cultures, podiatry consulted and does note intention once patient clinically stable to transition to the OR with also vascular surgery involvement as well as infectious disease. Additionally, given chest x-ray alterations upon repeat film following central line placement we will attempt to obtain sputum cultures, full respiratory viral panel and urine antigens. Bld cx x 2 obtained in the ED. splitter machine also consulted. #2. Acute kidney injury: Secondary to suspected hypoperfusion as well as potentially medications per discussion with nephrology given acute presentation also #1. Admission BUN/Cr 156/9.65, prior baseline creatinine noted to be 1.56 most recently on 01/31/2022, will continue to hydrate with at this point bicarb amp per discussion with nephrology and once CO2 reaches 20 may consider transition to alternate IV fluids, will obtain renal ultrasound as well as FeNa assessment. As noted nephrology consulted and evaluating. #3. Hyperkalemia: Potassium 6.7, administered in the ED albuterol, calcium gluconate, dextrose, insulin and sodium bicarb amp. As noted we will admit to the ICU, maintain on monitor, continue to serially obtain BMP levels and further treat as needed, continue bicarb drip per discussion with nephrology. Nephrology consulted and evaluating. #4. Indeterminate cardiac enzyme: EKG in ED with sinus rhythm with nonspecific changes with notable T wave elevations secondary to his hyperkalemia as noted ab ove, CXR initially obtain with mild degree of increased markings at the lung bases with blunting of the right costophrenic angle; however, following central line placement repeat CXR obtained with notable bilateral lower lobe and left upper lobe consolidation,initial trop 79. Will maintain on telemetry monitoring as noted, continue serial cardiac enzymes and EKGs. Repeat echocardiogram requested. #5. Chronic Systolic CHF/Ischemic cardiomyopathy: Patient s/p AICD, 06/07/2021 echocardiogram with normal LV size, normal LV systolic function, no regional wall motion abnormalities. Patient upon presentation with significant history of orthopnea, weight gain as well as significant lower extremity swelling with obvious diffuse serous drainage secondary to the edema to the lower extremities with dressing takedown. Avoiding aggressive IV fluids secondary to this history and cautiously hydrating as noted above. Repeat echocardiogram requested. #6. Chronic anemia, currently macrocytic: Admission hemoglobin 9.9, prior baseline since October 2019 to 11-12, mildly decreased however given acute presentation we will plan repeat level in AM. #7. Hypertension: Given presentation with hypotension holding all medications, add back once appropriate. #8. Hyperlipidemia: We will continue patient on statin therapy. #9. Diabetes mellitus type II: Hold oral home regimen, continue home insulin r egimen, ADA diet, hemoglobin A1c requested given presentation, accu checks w/ ISS. #10. CAD: s/p CABG and PCI, will continue aspirin, statin, holding all hypertensive regimen given acute presentation as noted above, add back once appropriate. #11. Hx EtOH abuse: Patient currently reporting only occasional usage but noted history in the chart, will obtain mag and Phos levels to be cautious and continue to closely monitor with addition of CIWA if necessary. #12. GERD: We will need patient on PPI with alteration of dosing as needed given renal function. #13. PAF: Admission INR 3.9, continue to trend with Coumadin resumption if appropriate, temporarily holding given possible dialysis needs pending repeat trending as noted above as well as possible need for OR per podiatry at a future date once he is clinically stable. #14. RITESH: CPAP nightly. #15. DVT prophylaxis: SCDs if patient is able to tolerate, INR therapeutic upon presentation 3.9, repeat level in a.m., holding Coumadin as noted. #16. CODE status: Patient HCPOA and living will or not in place. Discussed CODE status at length including difference between FULL code, DNR-CCA and DNR-CC status. Following discussions about the differences in these status, requested Full Code status. Advanced Care Planning Face to Face Time: 16 minutes. Charges/Coding Visit Charges Inpatient E&M: 49475 Init Hosp L3 Procedures Hospitalists Procedures: 91019 Advncd Care Plan 30 Min
--- NOTE | 2022-03-01 15:40 | US_ITS ---
STUDY: RENAL ULTRASOUND - COMPLETE REASON FOR EXAM: Male, 76 years old. DAVIS TECHNIQUE: Ultrasound evaluation of the kidneys was performed with real-time and static mcgarry-scale imaging. COMPARISON: None. FINDINGS: RIGHT KIDNEY: Normal location of the right kidney, which is normal in size. The right kidney measures 10.8 x 4.6 x 5.4 cm. There is a normal cortex of the right kidney. The renal cortex measures 1.9 cm. There is no right renal mass or cyst. There are no right renal calculi. There is no right hydronephrosis. DISTAL RIGHT URETER: There is non-visualization of the distal right ureter. There is no demonstrated right ureterovesical junction calculus. There is a visualized right ureteral jet. LEFT KIDNEY: Normal location of the left kidney, which is normal in size. The left kidney measures 10 x 3.9 x 5.2 cm. There is a normal cortex of the left kidney. The renal cortex measures cm. There is no left renal mass or cyst. There are no left renal calculi. There is no left hydronephrosis. DISTAL LEFT URETER: There is non-visualization of the distal left ureter. There is no demonstrated left ureterovesical junction calculus. There is a visualized left ureteral jet. BLADDER: The distended urinary bladder has a volume of 10.95 ml. The empty urinary bladder has a volume of ml. There is a normal wall thickness of the distended urinary bladder. There is no demonstrated mass within the urinary bladder. There are no demonstrated bladder calculi. There is increased bilateral renal cortical echogenicity and prominence of the pyramids consistent with nonspecific renal parenchymal disease. 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 No evidence for obstruction Electronically Signed: Matt Cameron MD at 16:56 EST ,
--- NOTE | 2022-03-01 16:01 | ED.RN ---
Report called to Alma Delia MANUEL in ICU.
--- NOTE | 2022-03-01 16:54 | PCM.CONS.GEN ---
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 Hypotension resolved. Patient now vitally stable. Patient demonstrates signs of acute kidney failure. Patient has chronic wounds to bilateral lower extremities. These are secondary to arterial disease, patient was scheduled to get arterial studies today these were not performed due to low blood pressure. Will reorder studies while inpatient. But due to worsening of his left great toe with presence of infection I will perform an open amputation to obtain some level of infection source control. Due to patient's poor vascular status he will likely not be able to heal any distal closed amputation at this time and may actually require a more proximal amputation depending on his definitive arterial status and if revascularization is possible. arterial studies/radiographs re-ordered. Recommend ID consult. recommend vascular consult; patient may need revasc vs more proximal amputation. hospitalist on board; managing hypotension/renal failure/hyperkalemia. Patient receiving IV vanc/zosyn. Previous cultures polymicrobial (citrobacter, proteus, serratia, morganella, strep agalactiae, enterococcus faecalis and anaerobic cocci) Will plan for open hallux amp - left foot in AM. Patient should remain NWB to bilateral feet Patient should offload heels with floating using pillows vs egg crate offloading pads Patient is high risk for more proximal amputation, this has been discussed with patient in great detail. (2) Peripheral vascular disease, unspecified: (3) Non-pressure chronic ulcer of other part of left foot with fat layer exposed: (4) Diabetic infection of right foot: HPI Consult Data Date of Consult: 03/01/22 HPI Narrative HPI Narrative: FRANCISCO DUBOSE, is a 76 M follows with me in the wound care center. Patient went to get arterial studies done today was seen with significant hypotension. Patient was sent to the emergency room and noted to have kidney failure as well as hypotension. Patient's wounds have been chronic to bilateral lower extremity and are arterial in nature. Patient has been treated with oral antibiotics on an outpatient basis consisting of doxycycline and ciprofloxacin. Patient denies constitutional symptoms and notes that he feels fine today. Patient denies any pain to bilateral lower extremity and has no other complaints. [facility] Medical History Acute on chronic systolic (congestive) heart failure Alcohol abuse Atherosclerosis of coronary artery bypass graft without angina pectoris Atrial fibrillation Bilateral lower extremity edema CAD (coronary artery disease) Cardiac dysrhythmia Cardiomyopathy Chronic systolic congestive heart failure Chronic ulcer of toe of left foot with fat layer exposed Congestive heart failure Elevated troponin Essential (primary) hypertension GERD (gastroesophageal reflux disease) Heavy alcohol use HLD (hyperlipidemia) Implantable cardioverter-defibrillator (ICD) at end of battery life Ischemic cardiomyopathy 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 of 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 Non-rheumatic tricuspid valve insufficiency NSTEMI (non-ST elevated myocardial infarction) 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 RITESH (obstructive sleep apnea) Paroxysmal atrial fibrillation Paroxysmal atrial fibrillation with rapid ventricular response Paroxysmal atrial flutter Peripheral vascular disease Pleural effusion Secondary pulmonary arterial hypertension Skin ulcer of left great toe with fat layer exposed Sleep apnea Type 2 diabetes mellitus Type 2 diabetes mellitus Ulcer of left lower extremity with fat layer exposed Ulcer of right foot with fat layer exposed Ulcer of right lower extremity with fat layer exposed Ventricular tachycardia Home Medications aspirin 81 mg tablet,delayed release 81 mg PO DAILY heart health 09/19/18 [History Last Taken 03/01/22] Handicap Placard #1 ea 08/28/19 [Rx Last Taken Unknown] atorvastatin 80 mg tablet 80 mg PO QHS #90 tabs 05/23/21 [Rx Last Taken 02/28/22] Novolin N Flexpen 5 units QHS diabetes 11/03/21 [History Last Taken 02/28/22] Novolin N Flexpen 12 units DAILY daily 11/03/21 [History Last Taken 02/28/22] warfarin 2 mg tablet (Jantoven) 2 mg PO DINNER #0 tabs 11/06/21 [Rx Last Taken 02/26/22] omeprazole 20 mg capsule,delayed release 20 mg PO DAILY PRN acid reflux 11/14/21 [History Last Taken 02/01/22] ascorbic acid (vitamin C) 500 mg tablet 500 mg PO DAILY 01/01/22 [History Last Taken 03/01/22] cholecalciferol (vitamin D3) 25 mcg (1,000 unit) capsule 25 mcg PO DAILY 01/01/22 [History Last Taken Unknown] potassium chloride 20 mEq tablet,extended release 20 meq PO DAILY 01/24/22 [History Last Taken 03/01/22] metoprolol succinate 100 mg tablet,extended release 24 hr 100 mg PO BID #180 tabs 02/05/22 [Rx Last Taken 02/27/22] furosemide 40 mg tablet 40 mg PO BID 02/28/22 [History Last Taken 03/01/22] spironolactone 25 mg tablet 25 mg PO DAILY #30 tabs 02/28/22 [Rx Last Taken 03/01/22] ciprofloxacin HCl 750 mg tablet 750 mg PO BID INFECTION 03/01/22 [History Last Taken 03/01/22] doxycycline hyclate 100 mg tablet 100 mg PO BID INFECTION 03/01/22 [History Last Taken 03/01/22] losartan 25 mg tablet 25 mg PO DAILY HTN 03/01/22 [History Last Taken 02/28/22] Allergy/AdvReac Type Severity Reaction Status Date / Time amiodarone AdvReac Shortness Verified 03/01/22 13:28 of breath lisinopril AdvReac cough Verified 03/01/22 13:28 Surgical History H/O coronary artery bypass surgery (1997) History of coronary artery stent placement (01/2016) History of implantable cardiac defibrillator (ICD) (02/11/20) History of thoracentesis Hx of CABG S/P PTCA (percutaneous transluminal coronary angioplasty) Social History household members: spouse Smoking Status: Never smoker alcohol intake: current alcohol intake frequency: a few times a week Alcohol type: beer substance use type: does not use caffeine: Yes Type: coffee Number of servings: 2 what type of physical activity do you participate in: none seatbelt use: never do you feel safe at home: Yes ROS Eyes Eyes: Denies blindness, decreased night vision or excessive blinking ENT HEENT: Denies change in voice, foreign body in nose or mouth pain Cardiovascular Cardiovascular: Reports dyspnea on exertion; Denies abdominal pain or chest pain with activity Respiratory/Chest Respiratory/Chest: Reports dyspnea on exertion; Denies change in phlegm color or nail bed cyanosis Physical Exam Narrative Diminished dorsalis pedis/posterior tibial pulses bilaterally. Delayed capillary fill time bilaterally. Light touch/protective sensation absent to bilateral feet. Dry gangrene to dorsal left hallux with chronic periwound ischemic changes, worsening today with signs of wet gangrene. Focal ulcerations to dorsal second and third digit. Nonblanchable of the erythema extending into the forefoot region. Mild serous drainage from sites. Dry gangrene dorsal aspect right second digit. Multiple full-thickness ulcerations to bilateral legs. Punched-out ulceration dorsal lateral right forefoot. Necrotic ulceration plantar right fifth metatarsal head. bilateral plantar heel ulcerations, multiples patches of full thickness wounds to bilateral legs with serous drainage. Wounds are secondary to chronic ischemia. No gross wound forming deformity, no signs of DVT. Lab / Micro Data Result Diagrams: 03/01/22 13:48 03/01/22 13:48 Labs: Laboratory Results - last 24 hr 03/01/22 13:48: WBC 11.0, RBC 3.36 L, Hgb 9.9 L, Hct 32.1 L, MCV 95.5 H, MCH 29.5, MCHC 30.8 L, RDW Std Deviation 53.6 H, RDW Coeff of Nguyen 15.4 H, Plt Count 187, MPV 10.3, Immature Gran % (Auto) 0.500, Neut % (Auto) 90.0 H, Lymph % (Auto) 3.3 L, Cherry % (Auto) 5.9, Eos % (Auto) 0.2, Baso % (Auto) 0.1, Absolute Neuts (auto) 9.9 H, Absolute Lymphs (auto) 0.36 L, Nucleated RBC % 0 03/01/22 13:48: Sodium 131 L, Potassium 6.7 H*, Chloride 100, Carbon Dioxide 16.0 L, Anion Gap 15, BUN 156 H*, Creatinine 9.65 H*, Estim Creat Clear Calc 6.09, Est GFR (MDRD) Af Amer 7 L, Est GFR (MDRD) Non-Af 6 L, BUN/Creatinine Ratio 16.2, Glucose 87, Calcium 7.8 L, Troponin I High Sens 79 H 03/01/22 13:48: B-Natriuretic Peptide 549.0 H 03/01/22 14:13: PT 38.2 H, INR 3.9 Radiology Impression Chest X-Ray 03/01/22 14:10 IMPRESSION: Mild degree of increased markings at the lung bases with blunting of the right costophrenic angle. Electronically Signed: Akil Davis MD at 14:38 EST ,
[2022-03-01] MEDS: Insulin Lispro 10 UNIT in Syringe 0 ML 6 UNIT IV (17:26)
--- NOTE | 2022-03-01 17:40 | ED.RN ---
VERIFIED LEVOPHED 8MG AT 5MCG/MIN WITH MAP OF [address] SIMONS.
[2022-03-01 17:50] LABS: Bedside Glucose 182 mg/dL (74-106)
--- NOTE | 2022-03-01 18:26 | PCM.CONS.R ---
Assessment & Plan Assessment/Plan (1) DAVIS (acute kidney injury): PLAN: The patient also likely has underlying chronic kidney disease with serum creatinine of around 1.2 to 1.4 mg/dL at baseline. I suspect that the patient has diabetic kidney disease or nephrosclerosis from hypertension/PAD. DAVIS is likely due to severe prerenal azotemia due to circulatory shock made worse by concurrent use of diuretic and ARB. Prerenal DAVIS could have also progressed to ischemic ATN as well. Renal ultrasound did not show any evidence of obstructive nephropathy. I have low suspicion for other causes of DAVIS such as infection related glomerulopathy at this point. I will check urinalysis and urine indices. We will check complement levels to be complete although I have low suspicion for infection related glomerulonephritis. Although the patient has a history of heart failure with reduced ejection fraction, he appears to be volume depleted especially with prior history of poor intake and diarrhea. I agree with continuing volume expansion using sodium bicarbonate infusion. Recheck renal function later tonight. There is no urgent need for dialysis at this point. (2) Acute hyperkalemia: PLAN: Hyperkalemia secondary to DAVIS, acidosis, ARB, spironolactone, and potassium supplementation. Although potassium is high, is not severely increased at 6.7 mmol/L. Agree with medical treatment first using bicarbonate infusion and temporizing measures with insulin?D50. Recheck potassium level later tonight. Agree with stopping ARB, spironolactone, and potassium supplementation for now. (3) Metabolic acidosis: PLAN: Serum bicarbonate level is 16 mmol/L on presentation. There is an elevated anion gap of 15 which is likely even higher as I suspect his serum albumin is low. I suspect his dyspnea is due to acidosis and not from volume overload. Metabolic acidosis is likely due to DAVIS along with diarrhea prior to presentation. Will check venous blood gas so we can be more precise about his acid-base status. Given his examination, I would suspect that he also has metabolic alkalosis as well. (4) Shock circulatory: PLAN: The patient presented with hypotension which we suspect is from sepsis in addition to volume depletion. The patient likely has infection of the lower extremity, possibly osteomyelitis given the description of the wound. Despite history of heart failure with reduced ejection fraction,I still think that there is some room to give this patient fluid carefully. X-ray does not appear to be wet. Continue attempt to keep MAP above 65 mmHg. He is currently on vasopressor agent. Correcting acidosis as we are doing may also help with hypotension. He will be covered with antimicrobial until more data from cultures are available. (5) Ischemic cardiomyopathy: PLAN: The patient has a history of CAD status post CABG and PCI to the graft to right coronary artery. He also has a history of heart failure with reduced ejection fraction with EF of 35%. However, as discussed above, I suspect his dyspnea is more likely due to metabolic acidosis rather than heart failure at this point. We should continue volume expand the patient as we are doing with careful monitoring his volume status. HPI Consult Data Date of Consult: 03/01/22 HPI Narrative Reason for Consultation: DAVIS HPI Narrative: The patient is a 76-year-old man with past history of type 2 diabetes mellitus, hypertension, CAD, PAD, heart failure with reduced ejection fraction, atrial fibrillation, RITESH alcohol use disorder, and hyperlipidemia. The patient presented to the hospital on on 03/01/2022 with hypotension when he was evaluated in the wound center. He was being followed in the wound center for chronic bilateral foot ulcer. The patient was then sent to the emergency department for further evaluation. The patient reports 3 days history of feeling unwell. He reports diarrhea for the past 2 days along with nonproductive cough and dyspnea on exertion. During the evaluation in the emergency department, the patient was found to have acute kidney injury with serum creatinine of 9.65 mg/dL and BUN of 156 mg/dL. Nephrology is asked see the patient because of DAVIS. The patient appears to have CKD with serum creatinine of 1.4 to 1.5 mg/dL as far back as May 2021. In addition to DAVIS, the patient also presented with hyperkalemia with potassium level of 6.7 mmol/L and metabolic acidosis with serum bicarbonate level of 16 mmol/L. The patient has been on losartan, spironolactone, furosemide, and potassium supplementation prior to admission. The patient denies current chest pain, shortness of breath at rest, nausea, or increasing edema of the lower extremities. He denies lower urinary tract symptoms such as urinary frequency, urgency, or hesitancy. He denies chronic use of NSAIDs. [facility] Medical History Acute on chronic systolic (congestive) heart failure Alcohol abuse Atherosclerosis of coronary artery bypass graft without angina pectoris Atrial fibrillation Bilateral lower extremity edema CAD (coronary artery disease) Cardiac dysrhythmia Cardiomyopathy Chronic systolic congestive heart failure Chronic ulcer of toe of left foot with fat layer exposed Congestive heart failure Elevated troponin Essential (primary) hypertension GERD (gastroesophageal reflux disease) Heavy alcohol use HLD (hyperlipidemia) Implantable cardioverter-defibrillator (ICD) at end of battery life 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 of 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 Non-rheumatic tricuspid valve insufficiency NSTEMI (non-ST elevated myocardial infarction) 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 RITESH (obstructive sleep apnea) Paroxysmal atrial fibrillation Paroxysmal atrial fibrillation with rapid ventricular response Paroxysmal atrial flutter Peripheral vascular disease Pleural effusion Secondary pulmonary arterial hypertension Skin ulcer of left great toe with fat layer exposed Sleep apnea Type 2 diabetes mellitus Type 2 diabetes mellitus Ulcer of left lower extremity with fat layer exposed Ulcer of right foot with fat layer exposed Ulcer of right lower extremity with fat layer exposed Ventricular tachycardia Home Medications aspirin 81 mg tablet,delayed release 81 mg PO DAILY heart health 09/19/18 [History Last Taken 03/01/22] Handicap Placard #1 ea 08/28/19 [Rx Last Taken Unknown] atorvastatin 80 mg tablet 80 mg PO QHS #90 tabs 05/23/21 [Rx Last Taken 02/28/22] Novolin N Flexpen 5 units QHS diabetes 11/03/21 [History Last Taken 02/28/22] Novolin N Flexpen 12 units DAILY daily 11/03/21 [History Last Taken 02/28/22] warfarin 2 mg tablet (Jantoven) 2 mg PO DINNER #0 tabs 11/06/21 [Rx Last Taken 02/26/22] omeprazole 20 mg capsule,delayed release 20 mg PO DAILY PRN acid reflux 11/14/21 [History Last Taken 02/01/22] ascorbic acid (vitamin C) 500 mg tablet 500 mg PO DAILY 01/01/22 [History Last Taken 03/01/22] cholecalciferol (vitamin D3) 25 mcg (1,000 unit) capsule 25 mcg PO DAILY 01/01/22 [History Last Taken Unknown] potassium chloride 20 mEq tablet,extended release 20 meq PO DAILY 01/24/22 [History Last Taken 03/01/22] metoprolol succinate 100 mg tablet,extended release 24 hr 100 mg PO BID #180 tabs 02/05/22 [Rx Last Taken 02/27/22] furosemide 40 mg tablet 40 mg PO BID 02/28/22 [History Last Taken 03/01/22] spironolactone 25 mg tablet 25 mg PO DAILY #30 tabs 02/28/22 [Rx Last Taken 03/01/22] ciprofloxacin HCl 750 mg tablet 750 mg PO BID INFECTION 03/01/22 [History Last Taken 03/01/22] doxycycline hyclate 100 mg tablet 100 mg PO BID INFECTION 03/01/22 [History Last Taken 03/01/22] losartan 25 mg tablet 25 mg PO DAILY HTN 03/01/22 [History Last Taken 02/28/22] Allergy/AdvReac Type Severity Reaction Status Date / Time amiodarone AdvReac Shortness Verified 03/01/22 13:28 of breath lisinopril AdvReac cough Verified 03/01/22 13:28 Surgical History H/O coronary artery bypass surgery (1997) History of coronary artery stent placement (01/2016) History of implantable cardiac defibrillator (ICD) (02/11/20) History of thoracentesis Hx of CABG S/P PTCA (percutaneous transluminal coronary angioplasty) Social History household members: spouse Smoking Status: Never smoker alcohol intake: current alcohol intake frequency: a few times a week Alcohol type: beer substance use type: does not use caffeine: Yes Type: coffee Number of servings: 2 what type of physical activity do you participate in: none seatbelt use: never do you feel safe at home: Yes ROS ROS Narrative 01/08 ROS was done and are otherwise noncontributory. Physical Exam Narrative General: Alert and oriented x3, ill-appearing. HEENT: Normocephalic, atraumatic. Mucous membrane dry without erythema. PERRLA, EOMI. Hearing is intact. Neck: Supple, no JVD. Heart: Irregularly irregular S1 and S2. No rubs or murmurs. Lungs: Clear to auscultation bilaterally. Abdomen: Normal bowel sound, soft, nontender, no guarding or rebound. Extremities: Both lower extremities are wrapped in gauze which I did not take down. There is some evidence of edema above the dressing. Neurologic: No focal neurologic deficits. Musculoskeletal: Full passive range of motion. No joint swelling. Psychiatric: Flat affect. Lab / Micro Data Result Diagrams: 03/01/22 13:48 03/01/22 13:48 Labs: Laboratory Results - last 24 hr 03/01/22 13:48: WBC 11.0, RBC 3.36 L, Hgb 9.9 L, Hct 32.1 L, MCV 95.5 H, MCH 29.5, MCHC 30.8 L, RDW Std Deviation 53.6 H, RDW Coeff of Nguyen 15.4 H, Plt Count 187, MPV 10.3, Immature Gran % (Auto) 0.500, Neut % (Auto) 90.0 H, Lymph % (Auto) 3.3 L, Hooker % (Auto) 5.9, Eos % (Auto) 0.2, Baso % (Auto) 0.1, Absolute Neuts (auto) 9.9 H, Absolute Lymphs (auto) 0.36 L, Nucleated RBC % 0 03/01/22 13:48: Sodium 131 L, Potassium 6.7 H*, Chloride 100, Carbon Dioxide 16.0 L, Anion Gap 15, BUN 156 H*, Creatinine 9.65 H*, Estim Creat Clear Calc 6.09, Est GFR (MDRD) Af Amer 7 L, Est GFR (MDRD) Non-Af 6 L, BUN/Creatinine Ratio 16.2, Glucose 87, Calcium 7.8 L, Troponin I High Sens 79 H 03/01/22 13:48: B-Natriuretic Peptide 549.0 H 03/01/22 14:13: PT 38.2 H, INR 3.9 03/01/22 17:25: POC Glucose 182 H Radiology Impression Chest X-Ray 03/01/22 14:10 IMPRESSION: Mild degree of increased markings at the lung bases with blunting of the right costophrenic angle. Electronically Signed: Akil Davis MD at 14:38 EST , Renal Ultrasound 03/01/22 15:40 IMPRESSION: Findings consistent with nonspecific renal parenchymal disease. No evidence for obstruction Electronically Signed: Matt Cameron MD at 16:56 EST ,
[2022-03-01] MEDS: Vancomycin IV 500 MG/100 ML BAG 100 MG IV (18:30)
[2022-03-01] MEDS: Dextrose 50%-Water 25 GM/50 ML DISP.SYRIN IV (18:37)
--- NOTE | 2022-03-01 18:50 | RAD_ITS ---
STUDY: X-RAY CHEST REASON FOR EXAM: Male, 76 years old. verify placement TECHNIQUE: AP portable COMPARISON: 03/01/2022 2:00 PM FINDINGS: There is mild consolidation of the right lower lobe and more severe consolidation in the left lower and upper lobe.. There is no demonstrated pleural abnormality. Postop change status post median sternotomy and CABG. Heart is enlarged. Normal mediastinum and sean. Normal visualized pulmonary arteries. Normal visualized aortic arch and descending thoracic aorta. AICD noted on the left with electrode in right ventricle. Dorsal spine and shoulders demonstrate degenerative changes. Normal visualized ribs, and clavicles.. Left internal jugular vein catheter placement with tip in the distal superior vena cava There is no demonstrated abnormality of the visualized soft tissue structures of the upper abdomen. RAD/Chest 1 View (Portable) IMPRESSION: Bilateral lower lobe and left upper lobe consolidation. No evidence of pneumothorax status post left central line placement Electronically Signed: Matt Cameron MD at 19:06 EST ,
--- NOTE | 2022-03-01 20:05 | ECHOCS_ITS ---
Reason For Study: CHF Procedure This was a 2D Doppler, Color Flow transthoracic echocardiogram. The study was technically difficult. Contrast injection was performed. Exam performed portable in ICU/CCU. Left Ventricle Normal LV size. Mild to moderate global left ventricular systolic dysfunction. The left ventricular ejection fraction is 40 %. Stage 3 diastolic dysfunction. Right Ventricle Normal right ventricle. Atria The left atrium is severely enlarged. The right atrium is moderately enlarged. Mitral Valve Moderate (2+) mitral valve insufficiency. Tricuspid Valve Mild tricuspid valve insufficiency. Pulmonary artery systolic pressure is 50 mmHg. Moderate pulmonary hypertension. Aortic Valve Moderate aortic stenosis. Pulmonic Valve The pulmonic valve is not well visualized. Great Vessels Mildly dilated aortic root. Pericardium/Pleural No pericardial effusion. Medication Diluted definity 2ml given slow IV push to enhance endocardial definition. MMode/2D Measurements & Calculations LVOT diam: 2.1 cm Ao root diam: 3.7 cm LAV(MOD-bp): 68.3 ml LVOT area: 3.5 cm2 LAV(MOD-bp) Indexed: 36.1 ml/m2 LAV(MOD-sp2): 54.2 ml LAV(MOD-sp4): 82.0 ml LA dimension(2D): 5.6 cm LA A4 area: 25.8 cm2 RA A4 area: 18.1 cm2 Time Measurements MV dec time: 0.08 sec Doppler Measurements & Calculations MV E max mumtaz: 102.8 cm/sec Lat Peak E' Mumtaz: 8.5 cm/sec Med Peak E' Mumtaz: 5.6 cm/sec MV A max mumtaz: 49.2 cm/sec E/E' lat: 12.0 E/E' med: 18.4 MV E/A: 2.1 MV V2 max: 109.2 cm/sec Ao V2 max: 298.1 cm/sec MV max P.8 mmHg MV dec slope: 1281 cm/sec2 Ao max P.6 mmHg MV V2 mean: 57.3 cm/sec Ao V2 mean: 184.0 cm/sec MV mean P.7 mmHg Ao mean P.5 mmHg MV V2 VTI: 26.4 cm Ao V2 VTI: 64.1 cm AV (velocity ratio): 0.29 MVA(VTI): 2.4 cm2 GILSON(I,D): 1.0 cm2 GILSON(V,D): 1.1 cm2 LV V1 max: 91.4 cm/sec SV(LVOT): 64.3 ml PA V2 max: 119.2 cm/sec LV V1 max P.4 mmHg PA V2 mean: 71.7 cm/sec LV V1 mean P.9 mmHg LV V1 mean: 64.1 cm/sec LV V1 VTI: 18.4 cm TR max mumtaz: 327.0 cm/sec TR max P.8 mmHg ECHO/Echo Complete W/ Contrast Interpretation Summary Mild to moderate global left ventricular systolic dysfunction. The left ventricular ejection fraction is 40 %. Stage 3 diastolic dysfunction. The left atrium is severely enlarged. The right atrium is moderately enlarged. Moderate (2+) mitral valve insufficiency. Mild tricuspid valve insufficiency. Moderate pulmonary hypertension. Moderate aortic stenosis. Mildly dilated aortic root. The study was technically difficult. Ordering Physician: Lor Lazaro Referring Physician: MD Kip Pedro Luis Performed By: Coby New RCS
--- NOTE | 2022-03-01 20:05 | ART_ITS ---
Reason For Study: Ulcer Procedure A bilateral lower extremity continuous wave Doppler with analog waveform analysis,segmental pressures,and ankle brachial indexes without exercise. Left Segmental Pressures Left thigh = >254mmHg. Left calf = 89mmHg. Left posterior tibial artery = 65mmHg. Left dorsalis pedis artery = 50mmHg. Right Segmental Pressures Right brachial= 106mmHg. Right thigh = 232mmHg. Right calf = 49mmHg. Right posterior tibial artery = 46mmHg. Right dorsalis pedis artery = 33mmHg. Indices The right ankle brachial index by the posterior tibial artery is 0.43. The right ankle brachial index by the dorsalis pedis is 0.31. The left ankle brachial index by the posterior tibial artery is 0.61. The left ankle brachial index by the dorsalis pedis is 0.47. VL/Lower Ext Art Exam w/o Exercis Interpretation Summary Right REBECCA 0.43, severe arterial insufficiency. Doppler/PVR waveforms and segmen arsalan pressures reveal distal SFA/popliteal disease. Left REBECCA 0.61, moderate arterial insufficiency. Doppler/PVR waveforms and segme ntal pressures reveal distal SFA/popliteal, infrapopliteal disease. Ordering Physician: Jai Fan Referring Physician: Pedro Luis Shin Performed By: SHAWNA MAGAÑA Catrachito
[2022-03-01 20:15] LABS: Blood Gas Specimen Type VEN; O2 Delivery Device Room Air; VBG BASE EXCESS -12 mmol/L (-1.0-3.5); VBG Bicarbonate 15 mmol/L (22-26); VBG PO2 42 mmHg (25-40); VBG SO2 70 % (50-70); VBG TCO2 16 mmol/L (23-33); VBG pCO2 33.8 mmHg (41-51); VBG pH 7.26 (7.32-7.42)
--- NOTE | 2022-03-01 20:39 | PCM.RX.CS ---
Consult Pharmacy has been consulted to manage selected antiobiotic: Vancomycin Type of Consult: New start Prior Doses of Antibiotics Received/Current Regimen: Medications Discontinued Medications Vancomycin HCl () 500 mg in 100 mls @ 100 mls/hr IV X1 ONE Stop: 03/01/22 16:21 Last Admin: 03/01/22 20:19 Dose: Infused Labs: Sodium Cancelled 03/01/22 20:05 Potassium Cancelled 03/01/22 20:05 Chloride Cancelled 03/01/22 20:05 Carbon Dioxide Cancelled 03/01/22 20:05 Anion Gap Cancelled 03/01/22 20:05 BUN Cancelled 03/01/22 20:05 Creatinine Cancelled 03/01/22 20:05 Est GFR (MDRD) Af Amer Cancelled 03/01/22 20:05 Est GFR (MDRD) Non-Af Cancelled 03/01/22 20:05 BUN/Creatinine Ratio Cancelled 03/01/22 20:05 Glucose Cancelled 03/01/22 20:05 Weight used for dosin kg Goal Trough: 15-20 mcg/mL Pharmacy Plan for Drug Dosing: Patient received 500mg IV x1. Recommend to check random level in the morning. Patient will not receive dialysis at this time, initial dose may have been lower than needed to be therapeutic. Pharmacy Service will continue to monitor and adjust dosing as required. Follow-Up Labs: Trough Vancomycin - Random 03/02 @ 0600
[2022-03-01 21:05] LABS: Anion Gap 15 (5-15); BUN 152 mg/dL (7-18); BUN/Creat Ratio 15.8 RATIO (10-20); Calcium,Total 8.3 mg/dL (8.5-10.1); Chloride 98 mmol/L (98-107); Creatinine, Serum 9.62 mg/dL (0.70-1.30); EST Glomerular Filtration Rate 6 mL/min (>60); Est Glom Filt Rate - Afr Amer 7 mL/min (>60); Estimated Creatinine Clearance 6.11 ml/min; Glucose 273 mg/dL (74-106); Potassium 6.1 mmol/L (3.5-5.1); Sodium Level 131 mmol/L (136-145); Troponin-I HS 75 pg/mL (3.0-78.0)
--- NOTE | 2022-03-01 21:05 | RAD_ITS ---
EXAM: XR RIGHT FOOT COMPLETE, 3 OR MORE VIEWS CLINICAL INDICATION: DM INFECTION TECHNIQUE: Frontal, lateral and oblique views of the right foot. This report was created using [employer] report generation technology. COMPARISON: None. FINDINGS: BONES/JOINTS: Remote surgical absence of the first phalanges. Prominent plantar calcaneal enthesophyte. No periostitis, bony erosions or bony destruction. No acute fracture. No subluxation. Normal alignment. Preservation of the joint space. SOFT TISSUES: Lucency raises concern for ulceration at the dorsal aspect of the forefoot. Correlate clinically. No radiopaque foreign body. VASCULATURE: Peripheral vascular calcifications. RAD/Foot min 3 Views IMPRESSION: No radiographic evidence for osteomyelitis. If still concerned, recommend CT. Electronically Signed: Vincenzo Mittal MD at 22:55 EST ,
--- NOTE | 2022-03-01 21:05 | RAD_ITS ---
EXAM: XR LEFT FOOT COMPLETE, 3 OR MORE VIEWS CLINICAL INDICATION: DM infection TECHNIQUE: Frontal, lateral and oblique views of the left foot. This report was created using [employer] report generation technology. COMPARISON: None. FINDINGS: BONES/JOINTS: Surgical absence of the fourth phalanges. Tarsometatarsal joint degenerative changes. Large plantar calcaneal enthesophyte. No bony erosions or destruction. No acute fracture. No subluxation. Normal alignment. SOFT TISSUES: Unremarkable. No soft tissue swelling or gas. No radiopaque foreign body. VASCULATURE: Multivessel peripheral arterial calcifications. RAD/Foot min 3 Views IMPRESSION: No radiographic evidence for osteomyelitis. Interstitial concerned, recommend MRI for which is more sensitive. Electronically Signed: Vincenzo Mittal MD at 21:55 EST ,
[2022-03-01] MEDS: Insulin Lispro 100 UNIT/ML INSULN.PEN SC (21:20)
[2022-03-01] MEDS: Atorvastatin Calcium 80 MG Tablet PO (21:22)
[2022-03-01] MEDS: Insulin NPH Human 100 UNITS/ML PEN SC (21:23)
[2022-03-01 21:46] LABS: Bedside Glucose 207 mg/dL (74-106)
[2022-03-01 22:27] LABS: Bacteria 0 SEEN /hpf (None Seen); Mucous, Urine 0 SEEN /hpf (<or=2+); Red Blood Cells-Urine 0 SEEN /hpf (0-5)
--- NOTE | 2022-03-01 22:28 | NURSING ---
Multiple issues with the blood pressure cuff and cord. Both have been switched out and Blood pressures have been better.
[2022-03-01 22:38] LABS: Color, Urine Yellow (Yellow); Glucose, Dipstick Normal (Normal); Ketone-Dipstick Negative (Negative); Leukocyte Esterase-Dipstick 25 /ul (Negative); Nitrite-Dipstick Negative (Negative); Occult Blood-Urine 10 /ul (Negative); Protein-Dipstick 100 mg/dl (Negative); Specific Gravity, Urine 1.025 (1.002-1.030); Urine Bilirubin Dipstick Negative (Negative); Urine Clarity Clear (Clear); Urine Urobilinogen Normal (Normal)
[2022-03-01 22:47] LABS: Squamous Epithelial Cells - UA 0-5 SEEN /hpf (0-5); White Blood Cells 0-5 SEEN /hpf (0-5)
[2022-03-01 23:11] LABS: Anion Gap 13 (5-15); BUN 157 mg/dL (7-18); BUN/Creat Ratio 16.1 RATIO (10-20); Calcium,Total 8.1 mg/dL (8.5-10.1); Chloride 99 mmol/L (98-107); Creatinine, Serum 9.76 mg/dL (0.70-1.30); EST Glomerular Filtration Rate 6 mL/min (>60); Est Glom Filt Rate - Afr Amer 7 mL/min (>60); Estimated Creatinine Clearance 6.02 ml/min; Glucose 225 mg/dL (74-106); Potassium 6.1 mmol/L (3.5-5.1); Sodium Level 131 mmol/L (136-145)
[2022-03-01 23:11] LABS: Magnesium 1.3 mg/dL (1.6-2.6); Phosphorus 9.1 mg/dL (2.5-4.9)
[2022-03-01 23:29] LABS: Urea Nitrogen, Urine 398 mg/dL (NO RANGE EST.); Urine Sodium 8 mmol/L (Not Establ.)
[2022-03-02] VITALS (57 sets, daily range): BP systolic 76–168; BP diastolic 25–149; PULSE 71–98; RESP 13–27; TEMP 36.4–37.6; O2SAT 93–99
[2022-03-02 00:48] LABS: Anion Gap 12 (5-15); BUN 162 mg/dL (7-18); BUN/Creat Ratio 16.7 RATIO (10-20); Chloride 98 mmol/L (98-107); EST Glomerular Filtration Rate 6 mL/min (>60); Est Glom Filt Rate - Afr Amer 7 mL/min (>60); Estimated Creatinine Clearance 6.06 ml/min; Glucose 224 mg/dL (74-106); Potassium 6.3 mmol/L (3.5-5.1); Sodium Level 130 mmol/L (136-145); Troponin-I HS 104 pg/mL (3.0-78.0)
[2022-03-02 02:44] LABS: ALB/GLOB Ratio 0.7 RATIO (0.9-2.4); AST(SGOT) 16 U/L (15-37); Alanine Aminotransfer ALT/SGPT 14 U/L (16-61); Albumin, Serum 2.6 g/dL (3.2-5.0); Alkaline Phosphatase 73 U/L (45-117); Anion Gap 12 (5-15); BUN 155 mg/dL (7-18); BUN/Creat Ratio 16.4 RATIO (10-20); Calcium,Total 7.6 mg/dL (8.5-10.1); Chloride 98 mmol/L (98-107); Creatinine, Serum 9.43 mg/dL (0.70-1.30); EST Glomerular Filtration Rate 6 mL/min (>60); Est Glom Filt Rate - Afr Amer 7 mL/min (>60); Estimated Creatinine Clearance 6.23 ml/min; Globulin 3.5 g/dL (2.2-4.2); Glucose 248 mg/dL (74-106); Potassium 6.3 mmol/L (3.5-5.1); Protein, Total 6.1 g/dL (6.4-8.2); Sodium Level 131 mmol/L (136-145); Troponin-I HS 147 pg/mL (3.0-78.0)
[2022-03-02 04:22] LABS: Absolute Lymphocyte Count 0.17 X10^3/uL (0.83-4.51); Absolute Neutrophil Count 18.7 X10^3/uL (2.0-7.7); Basophil# 0.03 X10^3/uL; Basophil% 0.1 % (0-1); Eosinophil# 0.01 X10^3/uL; Hematocrit 27.9 % (40-54); Hemoglobin 9.1 g/dL (13.0-16.5); Lymphocyte # 0.17 X10^3/ul (0.83-4.51); Lymphocyte % 0.8 % (19-41); Mean Corp Hgb Conc 32.6 g/dL (32-36); Mean Corpuscular Hgb 29.6 pg (27.0-32.0); Mean Corpuscular Volume 90.9 fL (80-94); Mean Platelet Vol. 9.8 fl (6.2-12.0); Monocyte# 1.01 X10^3/uL; NRBC Flagged by Analyzer 0 % (0-5); Neutrophil # 18.71 X10^3/uL (2.7-7.7); Neutrophil % 93.5 % (47-70); POSITIVE DIFFERENTIAL YES; Platelet Count 181 K/mm3 (150-450); RBC Distribution Width CV 15.4 % (11.6-14.6); RBC Distribution Width SD 50.7 fl (35.1-43.9); Red Blood Count 3.07 M/mm3 (4.6-6.2); White Blood Count 20.1 K/mm3 (4.4-11.0)
[2022-03-02 04:25] LABS: Differential Indicated SCAN CRITERIA MET
[2022-03-02 04:44] LABS: Prothrombin Time (Protime)PT. 46.1 SECONDS (11.7-14.9)
[2022-03-02 04:47] LABS: Anion Gap 11 (5-15); BUN 153 mg/dL (7-18); BUN/Creat Ratio 15.9 RATIO (10-20); Calcium,Total 7.5 mg/dL (8.5-10.1); Chloride 97 mmol/L (98-107); Creatinine, Serum 9.61 mg/dL (0.70-1.30); EST Glomerular Filtration Rate 6 mL/min (>60); Est Glom Filt Rate - Afr Amer 7 mL/min (>60); Estimated Creatinine Clearance 6.11 ml/min; Glucose 274 mg/dL (74-106); Potassium 6.4 mmol/L (3.5-5.1); Sodium Level 131 mmol/L (136-145)
[2022-03-02 05:00] LABS: Anisocytosis 1+
[2022-03-02 05:02] LABS: Acanthocytes RARE; Burr Cells 1+
--- NOTE | 2022-03-02 06:18 | CON.PCM.CC_ITS ---
Assessment & Plan Assessment/Plan (1) Septic shock: PLAN: Plan RECOMMENDATIONS: 1. Continue Levophed and titrate to maintain a systolic blood pressure greater than 90 mmHg. 2. Obtain and send blood cultures. 3. Continue broad-spectrum antimicrobials. 4. Continue sodium bicarbonate infusion per nephrology recommendations. 5. Continue to monitor INR daily. No indication for emergent reversal. 6. Encourage incentive spirometer use while in bed. 7. Echocardiogram pending. IMPRESSIONS: 1. Septic shock The patient presented with sepsis due to infected diabetic foot wounds with acute sepsis related organ dysfunction as evidenced by acute kidney injury and fluid refractory hypotension, necessitating vasopressor support. The patient remains on appropriate antimicrobials. Plan to continue Levophed to maintain a systolic blood pressure greater than 90 mmHg. Recommend obtaining and sending blood cultures. Defer definitive management of lower extremity diabetic wounds to podiatry, who is currently following. 2. Acute kidney injury/hyperkalemia Most likely prerenal in etiology in the setting of #1. The patient did receive supplemental IV fluids and remains on vasopressor support to maintain hemodynamic stability. The patient was initially being maintained on a sodium bicarbonate infusion, with little overall change in renal status. Anticipate need for dialysis. Will defer management to nephrology. 3. Coagulopathy The patient is maintained on Coumadin on an outpatient basis. The patient is coagulopathic in the setting of sepsis. Agree with holding systemic anticoagulation and monitoring INR daily. At the current time, there is no emergent indication for reversal. 4. History of ischemic cardiomyopathy/paroxysmal atrial fibril lation/anemia/diabetes mellitus/GERD/RITESH Complicates care, management, recovery and prognosis. Continue to hold Coumadin and antihypertensives. The patient will be maintained on sliding scale insulin coverage. TIME: 40 minutes of critical care time, independent of procedures, was spent addressing the patient's septic shock, acute kidney injury, hyperkalemia, coagulopathy, review of all data and collaboration with the care team. HPI Consult Data Date of Consult: 03/02/22 HPI Narrative Reason for Consultation: Septic shock HPI Narrative: The patient is a 76-year-old male, with a history as outlined below, who presented to the emergency department on March 01 with shortness of breath, lower extremity edema and hypotension. The patient has a known history of ischemic cardiomyopathy status post CABG, paroxysmal atrial fibrillation on Coumadin, GERD and obstructive sleep apnea. The patient is also being followed by podiatry in the wound clinic due to a history of peripheral vascular disease and diabetes associated lower extremity ulcers. On presentation to the emergency department, the patient was noted to have a temperature of 96.2 ?F. The patient was mildly tachycardic and tachypneic. Oxygen saturations were stable on room air. Initial laboratory evaluation rev ealed no evidence of a leukocytosis. Coagulation profile revealed an INR of 3.9. Chemistry profile was notable for a sodium of 131, potassium of 6.7, bicarbonate of 16, BUN of 156 and creatinine of 9.65. Phosphorus was elevated at 9.1. Troponin was elevated at 79 with a BNP of 549. Urine analysis was unrevealing. Chest x-ray was grossly clear with blunting of the right costophrenic angle. Renal ultrasound demonstrated no evidence of obstruction. The patient received supplemental IV fluids in the emergency department, but remained hypotensive. Therefore, a left triple-lumen catheter was placed and the patient was initiated on vasopressors. Antimicrobials were administered and the patient was admitted to the medical intensive care unit for further management. This morning, the patient's only complaint is for that of low back pain. He denies any resting shortness of breath. He is currently on Levophed at 30 mcg/min, along with a sodium bicarbonate infusion under the discretion of nephrology. [facility] Medical History Acute on chronic systolic (congestive) heart failure Alcohol abuse Atherosclerosis of coronary artery bypass graft without angina pectoris Atrial fibrillation Bilateral lower extremity edema CAD (coronary artery disease) Cardiac dysrhythmia Cardiomyopathy Chronic systolic congestive heart failure Chronic ulcer of toe of left foot with fat layer exposed Congestive heart failure Elevated troponin Essential (primary) hypertension GERD (gastroesophageal reflux disease) Heavy alcohol use HLD (hyperlipidemia) Implantable cardioverter-defibrillator (ICD) at end of battery life Ischemic cardiomyopathy 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 Non-rheumatic tricuspid valve insufficiency NSTEMI (non-ST elevated myocardial infarction) 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 RITESH (obstructive sleep apnea) Paroxysmal atrial fibrillation Paroxysmal atrial fibrillation with rapid ventricular response Paroxysmal atrial flutter Peripheral vascular disease Pleural effusion Secondary pulmonary arterial hypertension Skin ulcer of left great toe with fat layer exposed Sleep apnea Type 2 diabetes mellitus Type 2 diabetes mellitus Ulcer of left lower extremity with fat layer exposed Ulcer of right foot with fat layer exposed Ulcer of right lower extremity with fat layer exposed Ventricular tachycardia Home Medications aspirin 81 mg tablet,delayed release 81 mg PO DAILY heart health 09/19/18 [History Last Taken 03/01/22] Handicap Placard #1 ea 08/28/19 [Rx Last Taken Unknown] atorvastatin 80 mg tablet 80 mg PO QHS #90 tabs 05/23/21 [Rx Last Taken 02/28/22] Novolin N Flexpen 5 units QHS diabetes 11/03/21 [History Last Taken 02/28/22] Novolin N Flexpen 12 units DAILY daily 11/03/21 [History Last Taken 02/28/22] warfarin 2 mg tablet (Jantoven) 2 mg PO DINNER #0 tabs 11/06/21 [Rx Last Taken 02/26/22] omeprazole 20 mg capsule,delayed release 20 mg PO DAILY PRN acid reflux 11/14/21 [History Last Taken 02/01/22] ascorbic acid (vitamin C) 500 mg tablet 500 mg PO DAILY 01/01/22 [History Last Taken 03/01/22] cholecalciferol (vitamin D3) 25 mcg (1,000 unit) capsule 25 mcg PO DAILY 01/01/22 [History Last Taken Unknown] potassium chloride 20 mEq tablet,extended release 20 meq PO DAILY 01/24/22 [History Last Taken 03/01/22] metoprolol succinate 100 mg tablet,extended release 24 hr 100 mg PO BID #180 tabs 02/05/22 [Rx Last Taken 02/27/22] furosemide 40 mg tablet 40 mg PO BID 02/28/22 [History Last Taken 03/01/22] spironolactone 25 mg tablet 25 mg PO DAILY #30 tabs 02/28/22 [Rx Last Taken 03/01/22] ciprofloxacin HCl 750 mg tablet 750 mg PO BID INFECTION 03/01/22 [History Last Taken 03/01/22] doxycycline hyclate 100 mg tablet 100 mg PO BID INFECTION 03/01/22 [History Last Taken 03/01/22] losartan 25 mg tablet 25 mg PO DAILY HTN 03/01/22 [History Last Taken 02/28/22] Allergy/AdvReac Type Severity Reaction Status Date / Time amiodarone AdvReac Shortness Verified 03/01/22 13:28 of breath lisinopril AdvReac cough Verified 03/01/22 13:28 Family History (Updated 03/01/22 @ 21:[address] Lor Lazaro MD) Mother Bleeding in brain due to brain aneurysm Father History of aneurysm of peripheral artery Surgical History H/O coronary artery bypass surgery (1997) History of coronary artery stent placement (01/2016) History of implantable cardiac defibrillator (ICD) (02/11/20) History of thoracentesis Hx of CABG S/P PTCA (percutaneous transluminal coronary angioplasty) Social History household members: spouse Smoking Status: Never smoker alcohol intake: current alcohol intake frequency: a few times a week Alcohol type: beer substance use type: does not use caffeine: Yes Type: coffee Number of servings: 2 what type of physical activity do you participate in: none seatbelt use: never do you feel safe at home: Yes ROS ROS Narrative 10 systems were reviewed with pertinent positives as noted in the HPI above. Physical Exam Const alert and no apparent distress General Appearance: cooperative HEENT normocephalic and head/scalp atraumatic Eyes PERRL, EOMs intact bilaterally and conjunctivae normal Neck supple General: trachea midline and CVC in place Chest inspection of chest normal Resp normal respiratory effort Auscultation: diminished lung sounds; Negative for rales, rhonchi or wheezes Cardio regular rate and regular rhythm Heart Sounds: murmur GI normal to inspection, nondistended, normoactive bowel sounds Extremity General Extremity: edema bilateral lower extremity Skin Skin Narrative: Lower extremities are currently wrapped. Neuro CN's II-XII intact bilaterally, moves all extremities and no focal motor deficits Psych cooperative and affect normal Lab / Micro Data Result Diagrams: 03/02/22 04:11 03/02/22 06:13 Labs: Laboratory Results - last 24 hr 03/01/22 13:48: WBC 11.0, RBC 3.36 L, Hgb 9.9 L, Hct 32.1 L, MCV 95.5 H, MCH 29.5, MCHC 30.8 L, RDW Std Deviation 53.6 H, RDW Coeff of Nguyen 15.4 H, Plt Count 187, MPV 10.3, Immature Gran % (Auto) 0.500, Neut % (Auto) 90.0 H, Lymph % (Auto) 3.3 L, [place] % (Auto) 5.9, Eos % (Auto) 0.2, Baso % (Auto) 0.1, Absolute Neuts (auto) 9.9 H, Absolute Lymphs (auto) 0.36 L, Nucleated RBC % 0 03/01/22 13:48: Sodium 131 L, Potassium 6.7 H*, Chloride 100, Carbon Dioxide 16.0 L, Anion Gap 15, BUN 156 H*, Creatinine 9.65 H*, Estim Creat Clear Calc 6.09, Est GFR (MDRD) Af Amer 7 L, Est GFR (MDRD) Non-Af 6 L, BUN/Creatinine Ratio 16.2, Glucose 87, Calcium 7.8 L, Troponin I High Sens 79 H 03/01/22 13:48: B-Natriuretic Peptide 549.0 H 03/01/22 13:48: Phosphorus 9.1 H*, Magnesium 1.3 L 03/01/22 14:13: PT 38.2 H, INR 3.9 03/01/22 17:25: POC Glucose 182 H 03/01/22 20:05: Complement C3 Cancelled 03/01/22 20:05: Sodium 131 L, Potassium 6.1 H*, Chloride 98, Carbon Dioxide 18.0 L, Anion Gap 15, BUN 152 H*, Creatinine 9.62 H*, Estim Creat Clear Calc 6.11, Est GFR (MDRD) Af Amer 7 L, Est GFR (MDRD) Non-Af 6 L, BUN/Creatinine Ratio 15.8, Glucose 273 H, Calcium 8.3 L, Troponin I High Sens 75 03/01/22 21:15: POC Glucose 207 H 03/01/22 22:00: Urine Color Yellow, Urine Clarity Clear, Urine pH 5.0, Ur Specific [place] 1.025, Urine Protein 100 H, Urine Glucose (UA) Normal, Urine Ketones Negative, Urine Occult Blood 10 H, Urine Nitrite Negative, Urine Bilirubin Negative, Urine Urobilinogen Normal, Ur Leukocyte Esterase 25 H, Urine RBC 0 SEEN, Urine WBC 0-5 SEEN, Ur Squamous Epith Cells 0-5 SEEN, Urine Bacteria 0 SEEN, Urine Mucus 0 SEEN 03/01/22 22:00: Ur Random Sodium 8, Urine Creatinine 214.00, Urine Urea Nitrogen 398 03/01/22 22:05: Sodium 131 L, Potassium 6.1 H*, Chloride 99, Carbon Dioxide 19.0 L, Anion Gap 13, BUN 157 H*, Creatinine 9.76 H*, Estim Creat Clear Calc 6.02, Est GFR (MDRD) Af Amer 7 L, Est GFR (MDRD) Non-Af 6 L, BUN/Creatinine Ratio 16.1, Glucose 225 H, Calcium 8.1 L 03/02/22 00:10: Sodium 130 L, Potassium 6.3 H*, Chloride 98, Carbon Dioxide 20.0 L, Anion Gap 12, BUN 162 H*, Creatinine 9.70 H*, Estim Creat Clear Calc 6.06, Est GFR (MDRD) Af Amer 7 L, Est GFR (MDRD) Non-Af 6 L, BUN/Creatinine Ratio 16.7, Glucose 224 H, Calcium 8.0 L, Troponin I High Sens 104 H 03/02/22 02:05: Sodium 131 L, Potassium 6.3 H*, Chloride 98, Carbon Dioxide 21.0, Anion Gap 12, BUN 155 H*, Creatinine 9.43 H*, Estim Creat Clear Calc 6.23, Est GFR (MDRD) Af Amer 7 L, Est GFR (MDRD) Non-Af 6 L, BUN/Creatinine Ratio 16.4, Glucose 248 H, Calcium 7.6 L, Total Bilirubin 0.70, AST 16, ALT 14 L, Alkaline Phosphatase 73, Troponin I High Sens 147 H*, Total Protein 6.1 L, Albumin 2.6 L, Globulin 3.5, Albumin/Globulin Ratio 0.7 L 03/02/22 04:11: WBC 20.1 H, RBC 3.07 L, Hgb 9.1 L, Hct 27.9 L, MCV 90.9, MCH 29.6, MCHC 32.6 D, RDW Std Deviation 50.7 H, RDW Coeff of Nguyen 15.4 H, Plt Count 181, MPV 9.8, Immature Gran % (Auto) 0.600, Neut % (Auto) 93.5 H, Lymph % (Auto) 0.8 L, [place] % (Auto) 5.0, Eos % (Auto) 0.0, Baso % (Auto) 0.1, Absolute Neuts (auto) 18.7 H, Absolute Lymphs (auto) 0.17 L, Nucleated RBC % 0, Anisocytosis 1+, [place] Cells 1+, Acanthocytes (Spur) RARE 03/02/22 04:11: PT 46.1 H, INR 5.0 H* 03/02/22 04:11: Sodium 131 L, Potassium 6.4 H*, Chloride 97 L, Carbon Dioxide 23.0, Anion Gap 11, BUN 153 H*, Creatinine 9.61 H*, Estim Creat Clear Calc 6.11, Est GFR (MDRD) Af Amer 7 L, Est GFR (MDRD) Non-Af 6 L, BUN/Creatinine Ratio 15.9, Glucose 274 H, Calcium 7.5 L Micro: Microbiology 03/01/22 21:30 Mucosa - Nasopharyngeal Respiratory Panel (PCR) - Final 03/01/22 22:00 Urine Catheter - Catheter Legionella Antigen - Final 03/01/22 22:00 Urine Catheter - Catheter Streptococcus pneumoniae Antigen (M - Final ABG Data ABG results: ABG 03/01/22 20:08 Specimen Type NEHA VBG pH 7.26 L VBG pO2 42 H VBG HCO3 15 L VBG Total CO2 16 L VBG O2 Sat (Calc) 70 VBG Base Excess -12 L POC Mix VBG pCO2 Pt Tmp 33.8 L O2 Delivery Device Room Air Radiology Impression Chest X-Ray 03/01/22 14:10 IMPRESSION: Mild degree of increased markings at the lung bases with blunting of the right costophrenic angle. Electronically Signed: Akil Davis MD at 14:38 EST , Renal Ultrasound 03/01/22 15:40 IMPRESSION: Findings consistent with nonspecific renal parenchymal disease. No evidence for obstruction Electronically Signed: Matt Cameron MD at 16:56 EST , Chest X-Ray 03/01/22 18:50 IMPRESSION: Bilateral lower lobe and left upper lobe consolidation. No evidence of pneumothorax status post left central line placement Electronically Signed: Matt Cameron MD at 19:06 EST , Foot X-Ray 03/01/22 21:05 IMPRESSION: No radiographic evidence for osteomyelitis. Interstitial concerned, recommend MRI for which is more sensitive. Electronically Signed: Vincenzo Mittal MD at 21:55 EST , Foot X-Ray 03/01/22 21:05 IMPRESSION: No radiographic evidence for osteomyelitis. If still concerned, recommend CT. Electronically Signed: Vincenzo Mittal MD at 22:55 EST , Charges/Coding Procedures Hospitalists Procedures: [id number] [facility] 1st Hr
[2022-03-02] MEDS: TITRATION PARAMETER CHANGE 1 EACH IV (07:07)
[2022-03-02 07:55] LABS: Anion Gap 13 (5-15); BUN 149 mg/dL (7-18); BUN/Creat Ratio 15.7 RATIO (10-20); Calcium,Total 7.5 mg/dL (8.5-10.1); Chloride 96 mmol/L (98-107); Creatinine, Serum 9.52 mg/dL (0.70-1.30); EST Glomerular Filtration Rate 6 mL/min (>60); Est Glom Filt Rate - Afr Amer 7 mL/min (>60); Estimated Creatinine Clearance 6.17 ml/min; Glucose 284 mg/dL (74-106); Potassium 6.3 mmol/L (3.5-5.1); Sodium Level 130 mmol/L (136-145)
[2022-03-02 09:10] LABS: Vancomycin, Random Level 6.7 ug/mL (0.0-15.0)
[2022-03-02] MEDS: Insulin NPH Human 100 UNITS/ML PEN 12 UNITS SC (09:24)
[2022-03-02] MEDS: Insulin Lispro 100 UNIT/ML INSULN.PEN SC ×2 (09:24→11:29)
[2022-03-02] MEDS: Aspirin E.C. 81 MG Tablet PO (09:25)
[2022-03-02 09:55] LABS: Bedside Glucose 280 mg/dL (74-106)
--- NOTE | 2022-03-02 10:15 | NURSING ---
Dr. Morris at bedside to place dialysis catheter
--- NOTE | 2022-03-02 10:28 | PCM.PN.REN ---
Subjective Subjective Following for acute kidney injury. The patient denies chest pain or shortness of breath at rest. There is no nausea, vomiting or diarrhea. Main complaint is bilateral legs and feet pain. Objective Data Objective Data Vital Signs: Vital Signs Temp Pulse Resp BP Pulse Ox O2 Del Method O2 Flow Rate 99.6 F H 82 27 H 137/28 H 94 Room Air 3 03/02/22 07:00 03/02/22 07:14 03/02/22 07:00 03/02/22 07:00 03/02/22 07:00 03/02/22 09:32 03/01/22 19:24 Oxygen Flow Rate (L/min) 3 Oxygen Delivery Method Room Air Weight: 77.6 kg Body Mass Index (BMI) 26.0 Intake & Output: Intake and Output for Last 24 Hours 02/28/22 03/01/22 03/02/22 23:59 23:59 23:59 Intake Total 1580.69 / 1585.39 1461.44 / 1461.44 Output Total 50 / 50 90 / 90 Balance 1530.69 / 1535.39 1371.44 / 1371.44 Lab / Micro Data Result Diagrams: 03/02/22 04:11 03/02/22 06:13 Labs: Laboratory Results - last 24 hr 03/01/22 13:48: WBC 11.0, RBC 3.36 L, Hgb 9.9 L, Hct 32.1 L, MCV 95.5 H, MCH 29.5, MCHC 30.8 L, RDW Std Deviation 53.6 H, RDW Coeff of Nguyen 15.4 H, Plt Count 187, MPV 10.3, Immature Gran % (Auto) 0.500, Neut % (Auto) 90.0 H, Lymph % (Auto) 3.3 L, [place] % (Auto) 5.9, Eos % (Auto) 0.2, Baso % (Auto) 0.1, Absolute Neuts (auto) 9.9 H, Absolute Lymphs (auto) 0.36 L, Nucleated RBC % 0 03/01/22 13:48: Sodium 131 L, Potassium 6.7 H*, Chloride 100, Carbon Dioxide 16.0 L, Anion Gap 15, BUN 156 H*, Creatinine 9.65 H*, Estim Creat Clear Calc 6.09, Est GFR (MDRD) Af Amer 7 L, Est GFR (MDRD) Non-Af 6 L, BUN/Creatinine Ratio 16.2, Glucose 87, Calcium 7.8 L, Troponin I High Sens 79 H 03/01/22 13:48: B-Natriuretic Peptide 549.0 H 03/01/22 13:48: Phosphorus 9.1 H*, Magnesium 1.3 L 03/01/22 14:13: PT 38.2 H, INR 3.9 03/01/22 17:25: POC Glucose 182 H 03/01/22 20:05: Complement C3 Cancelled 03/01/22 20:05: Sodium 131 L, Potassium 6.1 H*, Chloride 98, Carbon Dioxide 18.0 L, Anion Gap 15, BUN 152 H*, Creatinine 9.62 H*, Estim Creat Clear Calc 6.11, Est GFR (MDRD) Af Amer 7 L, Est GFR (MDRD) Non-Af 6 L, BUN/Creatinine Ratio 15.8, Glucose 273 H, Calcium 8.3 L, Troponin I High Sens 75 03/01/22 21:15: POC Glucose 207 H 03/01/22 22:00: Urine Color Yellow, Urine Clarity Clear, Urine pH 5.0, Ur Specific [place] 1.025, Urine Protein 100 H, Urine Glucose (UA) Normal, Urine Ketones Negative, Urine Occult Blood 10 H, Urine Nitrite Negative, Urine Bilirubin Negative, Urine Urobilinogen Normal, Ur Leukocyte Esterase 25 H, Urine RBC 0 SEEN, Urine WBC 0-5 SEEN, Ur Squamous Epith Cells 0-5 SEEN, Urine Bacteria 0 SEEN, Urine Mucus 0 SEEN 03/01/22 22:00: Ur Random Sodium 8, Urine Creatinine 214.00, Urine Urea Nitrogen 398 03/01/22 22:05: Sodium 131 L, Potassium 6.1 H*, Chloride 99, Carbon Dioxide 19.0 L, Anion Gap 13, BUN 157 H*, Creatinine 9.76 H*, Estim Creat Clear Calc 6.02, Est GFR (MDRD) Af Amer 7 L, Est GFR (MDRD) Non-Af 6 L, BUN/Creatinine Ratio 16.1, Glucose 225 H, Calcium 8.1 L 03/02/22 00:10: Sodium 130 L, Potassium 6.3 H*, Chloride 98, Carbon Dioxide 20.0 L, Anion Gap 12, BUN 162 H*, Creatinine 9.70 H*, Estim Creat Clear Calc 6.06, Est GFR (MDRD) Af Amer 7 L, Est GFR (MDRD) Non-Af 6 L, BUN/Creatinine Ratio 16.7, Glucose 224 H, Calcium 8.0 L, Troponin I High Sens 104 H 03/02/22 02:05: Sodium 131 L, Potassium 6.3 H*, Chloride 98, Carbon Dioxide 21.0, Anion Gap 12, BUN 155 H*, Creatinine 9.43 H*, Estim Creat Clear Calc 6.23, Est GFR (MDRD) Af Amer 7 L, Est GFR (MDRD) Non-Af 6 L, BUN/Creatinine Ratio 16.4, Glucose 248 H, Calcium 7.6 L, Total Bilirubin 0.70, AST 16, ALT 14 L, Alkaline Phosphatase 73, Troponin I High Sens 147 H*, Total Protein 6.1 L, Albumin 2.6 L, Globulin 3.5, Albumin/Globulin Ratio 0.7 L 03/02/22 04:11: WBC 20.1 H, RBC 3.07 L, Hgb 9.1 L, Hct 27.9 L, MCV 90.9, MCH 29.6, MCHC 32.6 D, RDW Std Deviation 50.7 H, RDW Coeff of Nguyen 15.4 H, Plt Count 181, MPV 9.8, Immature Gran % (Auto) 0.600, Neut % (Auto) 93.5 H, Lymph % (Auto) 0.8 L, [place] % (Auto) 5.0, Eos % (Auto) 0.0, Baso % (Auto) 0.1, Absolute Neuts (auto) 18.7 H, Absolute Lymphs (auto) 0.17 L, Nucleated RBC % 0, Anisocytosis 1+, [place] Cells 1+, Acanthocytes (Spur) RARE 03/02/22 04:11: PT 46.1 H, INR 5.0 H* 03/02/22 04:11: Sodium 131 L, Potassium 6.4 H*, Chloride 97 L, Carbon Dioxide 23.0, Anion Gap 11, BUN 153 H*, Creatinine 9.61 H*, Estim Creat Clear Calc 6.11, Est GFR (MDRD) Af Amer 7 L, Est GFR (MDRD) Non-Af 6 L, BUN/Creatinine Ratio 15.9, Glucose 274 H, Calcium 7.5 L 03/02/22 06:13: Sodium 130 L, Potassium 6.3 H*, Chloride 96 L, Carbon Dioxide 21.0, Anion Gap 13, BUN 149 H*, Creatinine 9.52 H*, Estim Creat Clear Calc 6.17, Est GFR (MDRD) Af Amer 7 L, Est GFR (MDRD) Non-Af 6 L, BUN/Creatinine Ratio 15.7, Glucose 284 H, Calcium 7.5 L 03/02/22 08:05: Random Vancomycin 6.7 03/02/22 09:23: POC Glucose 280 H Micro: Microbiology 03/01/22 21:30 Mucosa - Nasopharyngeal Respiratory Panel (PCR) - Final 03/01/22 22:00 Urine Catheter - Catheter Legionella Antigen - Final 03/01/22 22:00 Urine Catheter - Catheter Streptococcus pneumoniae Antigen (M - Final ABG Data ABG results: ABG 03/01/22 20:08 Specimen Type NEHA VBG pH 7.26 L VBG pO2 42 H VBG HCO3 15 L VBG Total CO2 16 L VBG O2 Sat (Calc) 70 VBG Base Excess -12 L POC Mix VBG pCO2 Pt Tmp 33.8 L O2 Delivery Device Room Air Radiography Diagnostic Testing: Radiology Impression Chest X-Ray 03/01/22 14:10 IMPRESSION: Mild degree of increased markings at the lung bases with blunting of the right costophrenic angle. Electronically Signed: Akil Davis MD at 14:38 EST , Renal Ultrasound 03/01/22 15:40 IMPRESSION: Findings consistent with nonspecific renal parenchymal disease. No evidence for obstruction Electronically Signed: Matt Cameron MD at 16:56 EST , Chest X-Ray 03/01/22 18:50 IMPRESSION: Bilateral lower lobe and left upper lobe consolidation. No evidence of pneumothorax status post left central line placement Electronically Signed: Matt Cameron MD at 19:06 EST , Foot X-Ray 03/01/22 21:05 IMPRESSION: No radiographic evidence for osteomyelitis. Interstitial concerned, recommend MRI for which is more sensitive. Electronically Signed: Vincenzo Mittal MD at 21:55 EST , Foot X-Ray 03/01/22 21:05 IMPRESSION: No radiographic evidence for osteomyelitis. If still concerned, recommend CT. Electronically Signed: Vincenzo Mittal MD at 22:55 EST , Physical Exam Narrative General: Alert and oriented x3, ill-appearing. HEENT: Normocephalic, atraumatic. Mucous membrane dry without erythema. PERRLA, EOMI. Hearing is intact. Neck: Supple, no JVD. Heart: Normal S1 and S2. No rubs or murmurs. Lungs: Clear to auscultation anteriorly. Abdomen: Normal bowel sound, soft, nontender, no guarding or rebound. Extremities: Both lower extremities are wrapped in gauze which I did not take down. There is some evidence of edema above the dressing. Neurologic: No focal neurologic deficits. Assessment & Plan Assessment/Plan (1) DAVIS (acute kidney injury): PLAN: The patient also likely has underlying chronic kidney disease with serum creatinine of around 1.2 to 1.5 mg/dL at baseline (serum creatinine was 1.46 mg/dL on 01/23/2022). I suspect that the patient has diabetic kidney disease or nephrosclerosis from hypertension/PAD. DAVIS is due to severe prerenal azotemia due to circulatory shock made worse by concurrent use of diuretic and ARB prior to admission. Prerenal DAVIS has likely progressed to ischemic ATN. Renal ultrasound did not show any evidence of obstructive nephropathy. I have low suspicion for other causes of DAVIS such as infection related glomerulopathy at this point since there was no significant hematuria or proteinuria on urinalysis. Unfortunately, renal function has not improved with volume expansion. Serum creatinine was 9.76 mg/dL on 03/01/2022 at 10 PM. Serum creatinine is 9.52 mg/dL on 03/02/2022 at 6 AM. Moreover, the patient remains hyperkalemic with potassium of 6.3 mmol/L. The patient has essentially been anuric since admission to the ICU. He is still requiring IV vasopressor. Given ongoing need for IV vasopressor, I do not expect renal function to recover soon. Therefore, we will start the patient on dialysis today for anticipated ongoing azotemia which will also address his hyperkalemia. (2) Acute hyperkalemia: PLAN: Hyperkalemia secondary to DAVIS, acidosis, ARB, spironolactone, and potassium supplementation. Potassium level was 6.7 mmol/L on presentation. Despite resolution of acidosis, potassium remains high at 6.3 mmol/L. Because I do not anticipate renal function to improve within the next 24 to 48 hours, I will start dialysis which will help treat hyperkalemia as well. Agree with stopping ARB, spironolactone, and potassium supplementation for now. (3) Metabolic acidosis: PLAN: Serum bicarbonate level is 16 mmol/L on presentation. Metabolic acidosis is likely due to DAVIS along with diarrhea prior to presentation. The patient also has respiratory alkalosis and mild metabolic alkalosis based on VBG and metabolic panel on 03/01/2022. I suspect his dyspnea is due to acidosis and sepsis and not from volume overload. He appears to be less tachypneic today with improvement of metabolic acidosis with sodium bicarbonate infusion. Since bicarbonate level is now consistently above 20 mmol/L and we are starting dialysis, I will stop sodium bicarbonate infusion. We will continue to monitor serum bicarbonate level. (4) Shock circulatory: PLAN: The patient presented with hypotension which we suspect is from sepsis in addition to volume depletion. The patient likely has infection of the lower extremity, possibly osteomyelitis given the description of the wound. Despite history of heart failure with reduced ejection fraction,I still think that there is some room to give this patient fluid carefully. X-ray does not appear to be wet. He remains on vasopressor. I suspect that he is still volume down, I would recommend continuing to volume expand the patient although he no longer needs bicarbonate infusion. We will discuss volume management with hospitalist and clinical audiologist. He his covered with antimicrobial until more data from cultures are available. (5) Ischemic cardiomyopathy: PLAN: The patient has a history of CAD status post CABG and PCI to the graft to right coronary artery. He also has a history of heart failure with reduced ejection fraction with EF of 35%. However, as discussed above, I suspect his dyspnea was more likely due to metabolic acidosis rather than heart failure at this point. Dyspnea has improved overnight with improvement in serum bicarbonate. We should continue volume expand the patient as we are doing with careful monitoring his volume status.
[2022-03-02] MEDS: Heparin 10,000 UNITS/10 ML Vial 1000 UNITS IV (10:31)
--- NOTE | 2022-03-02 10:47 | PCM.OP.PRO ---
Procedure Report Date of Procedure: 03/02/22 Placement of right femoral vein temporary dialysis catheter. Risk and benefits that his procedure was discussed with the patient before hand in details. After informed consent, ultrasound was used to interrogate the right internal jugular vein which was found to be small and likely occluded. Therefore, we chose the right femoral vein for temporary dialysis catheter access since he already has a left internal jugular vein central venous catheter in place. The right groin was then prepared and draped in the usual fashion after cleaning the skin overlying the site with ChloraPrep. Under ultrasound guidance, an 18-gauge needle was used to cannulate the right femoral vein. 70 cm wire was then passed through the needle. The venotomy site was then dilated using tissue dilators. A 20 cm temporary dual-lumen dialysis catheter was then placed over guidewire. Both lumens of the catheter was flushed with saline. The catheter was then locked with 1: 1000 units of heparin. The catheter was secured to the skin with 3-0 nylon suture. The patient tolerated the procedure well. Impression: Successful placement of 12 [place], 20 cm dual-lumen temporary dialysis catheter into the right femoral vein.
--- NOTE | 2022-03-02 11:17 | PCM.RX.CS ---
Consult Pharmacy has been consulted to manage selected antiobiotic: Vancomycin Type of Consult: Follow-up Prior Doses of Antibiotics Received/Current Regimen: received 500mg IV x1 yesterday at 18:30 Labs: Sodium 130 mmol/L (136-145) L 03/02/22 06:13 Potassium 6.3 mmol/L (3.5-5.1) H* 03/02/22 06:13 Chloride 96 mmol/L (98-107) L 03/02/22 06:13 Carbon Dioxide 21.0 mmol/L (21.0-32.0) 03/02/22 06:13 Anion Gap 13 (5-15) 03/02/22 06:13 BUN 149 mg/dL (7-18) H* 03/02/22 06:13 Creatinine 9.52 mg/dL (0.70-1.30) H* 03/02/22 06:13 Est GFR (MDRD) Af Amer 7 mL/min (>60) L 03/02/22 06:13 Est GFR (MDRD) Non-Af 6 mL/min (>60) L 03/02/22 06:13 BUN/Creatinine Ratio 15.7 RATIO (10-20) 03/02/22 06:13 Glucose 284 mg/dL (74-106) H 03/02/22 06:13 Random Vancomycin 6.7 ug/mL (0.0-15.0) 03/02/22 08:05 Microbiology: Microbiology 03/01/22 21:30 Mucosa - Nasopharyngeal Respiratory Panel (PCR) - Final 03/01/22 22:00 Urine Catheter - Catheter Legionella Antigen - Final 03/01/22 22:00 Urine Catheter - Catheter Streptococcus pneumoniae Antigen (M - Final Weight used for dosin.6 kg Estimated Creatinine Clearance: now on HD Goal Trough: 15-20 mcg/mL Pharmacy Plan for Drug Dosing: The vanc random level drawn at 08:05 today was 6.7. The patient was started on dialysis today will give a dose of 1000mg IV x1 later today after dialysis. Will order another vanc random level to be drawn tomorrow morning in the event that the patient will receive dialysis again tomorrow since it is uncertain at this point. Pharmacy Service will continue to monitor and adjust dosing as required. Follow-Up Labs: Trough Vancomycin - random Labs to be done on [date and time ordered]: 03/03/22 0600
[2022-03-02] MEDS: 0.9% Normal Saline 1,000 ML 75 ML IV (11:25)
--- NOTE | 2022-03-02 11:43 | WOUNDNOTE ---
wound photo: left upper arm
--- NOTE | 2022-03-02 11:44 | WOUNDNOTE ---
wound photo: left foot/lower leg
--- NOTE | 2022-03-02 11:45 | WOUNDNOTE ---
wound photo: left lower leg/foot
--- NOTE | 2022-03-02 11:46 | WOUNDNOTE ---
wound photo: left lateral foot/heel
--- NOTE | 2022-03-02 11:46 | WOUNDNOTE ---
wound photo: left foot
--- NOTE | 2022-03-02 11:47 | WOUNDNOTE ---
wound photo: right lower leg
--- NOTE | 2022-03-02 11:48 | WOUNDNOTE ---
wound photo: right anterior/medial lower leg
--- NOTE | 2022-03-02 11:48 | WOUNDNOTE ---
wound photo: right foot/leg
--- NOTE | 2022-03-02 11:50 | CASEMGMT ---
RN CM Face to Face with patient for initial transition planning/care coordination assessment. RN CM introduced self and role at [facility]. Patient lying in bed, alert and oriented, at bedside. Patient willing to participate in assessment and is able to answer all questions appropriately. Care providers, pharmacy, and demographics verified. Patient wishes to discharge home with follow up care at wound center. Will monitor patient's course of treatment and progress with therapy for disposition at discharge. Patient states he has no further needs or concerns at this time. CM to follow for discharge planning needs that may arise. PCP: [facility] Specialists: [employer] line haul driver; [place] cardiolgist Preferred Pharmacy: [facility] Insurance: [employer] Prescription Benefit: none Living Will/HPOA: none LNOK: Living Arrangements: Patient lives with in a 2 story home. Patient states he is independent and able to ambulate stairs. Transportation: self, DME/HHC: Patient has crutches, glucometer with supplies, insulin with supplies, and home oxygen through [employer] with portability at 3 lpm. Patient states he has HHC that was setup through the wound center. CM to coordinate with [facility] regarding HHC at discharge. Disposition Plan: TBD by course of treatment and progress with therapy, CM to continue to monitor. Kathryn DAWN, RN, CM
[2022-03-02 12:06] LABS: Bedside Glucose 321 mg/dL (74-106)
--- NOTE | 2022-03-02 12:33 | CON.PCM.ID_ITS ---
Assessment & Plan Assessment/Plan (1) Septic shock: PLAN: Due to BLE infected ulcers. Recent wound cx with citro, proteus, morganella, serratia, GBS, enterococcus, and anaerobes. Had been on po doxy/cipro, but those are unreliable for GBS, enterococcus, and anaerobes. Podiatry following, OR planned. Cont empiric vanc/zosyn, adjusted zosyn to q12h based on GFR. Will follow, thank you (2) DAVIS (acute kidney injury): (3) Diabetic infection of right foot: HPI Consult Data Date of Consult: 03/02/22 HPI Narrative Reason for Consultation: septic shock HPI Narrative: FRANCISCO DUBOSE, is a 76 M who presented 03/01 with hypotension in wound center, worsening Bilat foot ulcers, peripheral edema. Has been on doxy and cipro recently for his feet. Denies any pain in BLE. No fever or chills. In ED, hypotensive, in DAVIS. Admitted to icu on pressor, vanc/zosyn. Feeling about the same today. OR planned. No n/v/d. Full ROS performed and neg except as noted above. [facility] Medical History Acute on chronic systolic (congestive) heart failure Alcohol abuse Atherosclerosis of coronary artery bypass graft without angina pectoris Atrial fibrillation Bilateral lower extremity edema CAD (coronary artery disease) Cardiac dysrhythmia Cardiomyopathy Chronic systolic congestive heart failure Chronic ulcer of toe of left foot with fat layer exposed Congestive heart failure Elevated troponin Essential (primary) hypertension GERD (gastroesophageal reflux disease) Heavy alcohol use HLD (hyperlipidemia) Implantable cardioverter-defibrillator (ICD) at end of battery life 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 current use of 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 Non-rheumatic tricuspid valve insufficiency NSTEMI (non-ST elevated myocardial infarction) 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 RITESH (obstructive sleep apnea) Paroxysmal atrial fibrillation Paroxysmal atrial fibrillation with rapid ventricular response Paroxysmal atrial flutter Peripheral vascular disease Pleural effusion Secondary pulmonary arterial hypertension Skin ulcer of left great toe with fat layer exposed Sleep apnea Type 2 diabetes mellitus Type 2 diabetes mellitus Ulcer of left lower extremity with fat layer exposed Ulcer of right foot with fat layer exposed Ulcer of right lower extremity with fat layer exposed Ventricular tachycardia Home Medications aspirin 81 mg tablet,delayed release 81 mg PO DAILY heart [facility] 09/19/18 [History Last Taken 03/01/22] Handicap Placard #1 ea 08/28/19 [Rx Last Taken Unknown] atorvastatin 80 mg tablet 80 mg PO QHS #90 tabs 05/23/21 [Rx Last Taken 02/28/22] Novolin N Flexpen 5 units QHS diabetes 11/03/21 [History Last Taken 02/28/22] Novolin N Flexpen 12 units DAILY daily 11/03/21 [History Last Taken 02/28/22] warfarin 2 mg tablet (Jose Mariatoven) 2 mg PO DINNER #0 tabs 11/06/21 [Rx Last Taken 02/26/22] omeprazole 20 mg capsule,delayed release 20 mg PO DAILY PRN acid reflux 11/14/21 [History Last Taken 02/01/22] ascorbic acid (vitamin C) 500 mg tablet 500 mg PO DAILY 01/01/22 [History Last Taken 03/01/22] cholecalciferol (vitamin D3) 25 mcg (1,000 unit) capsule 25 mcg PO DAILY 01/01/22 [History Last Taken Unknown] potassium chloride 20 mEq tablet,extended release 20 meq PO DAILY 01/24/22 [History Last Taken 03/01/22] metoprolol succinate 100 mg tablet,extended release 24 hr 100 mg PO BID #180 tabs 02/05/22 [Rx Last Taken 02/27/22] furosemide 40 mg tablet 40 mg PO BID 02/28/22 [History Last Taken 03/01/22] spironolactone 25 mg tablet 25 mg PO DAILY #30 tabs 02/28/22 [Rx Last Taken 03/01/22] ciprofloxacin HCl 750 mg tablet 750 mg PO BID INFECTION 03/01/22 [History Last Taken 03/01/22] doxycycline hyclate 100 mg tablet 100 mg PO BID INFECTION 03/01/22 [History Last Taken 03/01/22] losartan 25 mg tablet 25 mg PO DAILY HTN 03/01/22 [History Last Taken 02/28/22] Allergy/AdvReac Type Severity Reaction Status Date / Time amiodarone AdvReac Shortness Verified 03/01/22 13:28 of breath lisinopril AdvReac cough Verified 03/01/22 13:28 Family History (Updated 03/01/22 @ 21:[address] Lor Lazaro MD) Mother Bleeding in brain due to brain aneurysm Father History of aneurysm of peripheral artery Surgical History H/O coronary artery bypass surgery (1997) History of coronary artery stent placement (01/2016) History of implantable cardiac defibrillator (ICD) (02/11/20) History of thoracentesis Hx of CABG S/P PTCA (percutaneous transluminal coronary angioplasty) Social History household members: spouse Smoking Status: Never smoker alcohol intake: current alcohol intake frequency: a few times a week Alcohol type: beer substance use type: does not use caffeine: Yes Type: coffee Number of servings: 2 what type of physical activity do you participate in: none seatbelt use: never do you feel safe at home: Yes Physical Exam Const alert, oriented x3 and no apparent distress General Appearance: cooperative HEENT normocephalic and head/scalp atraumatic Eyes PERRL and EOMs intact bilaterally Neck supple and No nodes Resp Auscultation: diminished lung sounds Cardio regular rate and regular rhythm GI soft to palpation, non-tender and non-distended Extremity General Extremity: edema Skin Skin Narrative: reviewed photos of bilat foot ulcers Neuro CN's II-XII intact bilaterally Lab / Micro Data Attestation: I reviewed the patient's lab results. Result Diagrams: 03/02/22 04:11 03/02/22 06:13 Labs: Laboratory Results - last 24 hr 03/01/22 13:48: WBC 11.0, RBC 3.36 L, Hgb 9.9 L, Hct 32.1 L, MCV 95.5 H, MCH 29.5, MCHC 30.8 L, RDW Std Deviation 53.6 H, RDW Coeff of Nguyen 15.4 H, Plt Count 187, MPV 10.3, Immature Gran % (Auto) 0.500, Neut % (Auto) 90.0 H, Lymph % (Auto) 3.3 L, [place] % (Auto) 5.9, Eos % (Auto) 0.2, Baso % (Auto) 0.1, Absolute Neuts (auto) 9.9 H, Absolute Lymphs (auto) 0.36 L, Nucleated RBC % 0 03/01/22 13:48: Sodium 131 L, Potassium 6.7 H*, Chloride 100, Carbon Dioxide 16.0 L, Anion Gap 15, BUN 156 H*, Creatinine 9.65 H*, Estim Creat Clear Calc 6.09, Est GFR (MDRD) Af Amer 7 L, Est GFR (MDRD) Non-Af 6 L, BUN/Creatinine Ratio 16.2, Glucose 87, Calcium 7.8 L, Troponin I High Sens 79 H 03/01/22 13:48: B-Natriuretic Peptide 549.0 H 03/01/22 13:48: Phosphorus 9.1 H*, Magnesium 1.3 L 03/01/22 14:13: PT 38.2 H, INR 3.9 03/01/22 17:25: POC Glucose 182 H 03/01/22 20:05: Complement C3 Cancelled 03/01/22 20:05: Sodium 131 L, Potassium 6.1 H*, Chloride 98, Carbon Dioxide 18.0 L, Anion Gap 15, BUN 152 H*, Creatinine 9.62 H*, Estim Creat Clear Calc 6.11, Est GFR (MDRD) Af Amer 7 L, Est GFR (MDRD) Non-Af 6 L, BUN/Creatinine Ratio 15.8, Glucose 273 H, Calcium 8.3 L, Troponin I High Sens 75 03/01/22 21:15: POC Glucose 207 H 03/01/22 22:00: Urine Color Yellow, Urine Clarity Clear, Urine pH 5.0, Ur Specific [place] 1.025, Urine Protein 100 H, Urine Glucose (UA) Normal, Urine Ketones Negative, Urine Occult Blood 10 H, Urine Nitrite Negative, Urine Bilirubin Negative, Urine Urobilinogen Normal, Ur Leukocyte Esterase 25 H, Urine RBC 0 SEEN, Urine WBC 0-5 SEEN, Ur Squamous Epith Cells 0-5 SEEN, Urine Bacteria 0 SEEN, Urine Mucus 0 SEEN 03/01/22 22:00: Ur Random Sodium 8, Urine Creatinine 214.00, Urine Urea Nitrogen 398 03/01/22 22:05: Sodium 131 L, Potassium 6.1 H*, Chloride 99, Carbon Dioxide 19.0 L, Anion Gap 13, BUN 157 H*, Creatinine 9.76 H*, Estim Creat Clear Calc 6.02, Est GFR (MDRD) Af Amer 7 L, Est GFR (MDRD) Non-Af 6 L, BUN/Creatinine Ratio 16.1, Glucose 225 H, Calcium 8.1 L 03/02/22 00:10: Sodium 130 L, Potassium 6.3 H*, Chloride 98, Carbon Dioxide 20.0 L, Anion Gap 12, BUN 162 H*, Creatinine 9.70 H*, Estim Creat Clear Calc 6.06, Est GFR (MDRD) Af Amer 7 L, Est GFR (MDRD) Non-Af 6 L, BUN/Creatinine Ratio 16.7, Glucose 224 H, Calcium 8.0 L, Troponin I High Sens 104 H 03/02/22 02:05: Sodium 131 L, Potassium 6.3 H*, Chloride 98, Carbon Dioxide 21.0, Anion Gap 12, BUN 155 H*, Creatinine 9.43 H*, Estim Creat Clear Calc 6.23, Est GFR (MDRD) Af Amer 7 L, Est GFR (MDRD) Non-Af 6 L, BUN/Creatinine Ratio 16.4, Glucose 248 H, Calcium 7.6 L, Total Bilirubin 0.70, AST 16, ALT 14 L, Alkaline Phosphatase 73, Troponin I High Sens 147 H*, Total Protein 6.1 L, A lbumin 2.6 L, Globulin 3.5, Albumin/Globulin Ratio 0.7 L 03/02/22 04:11: WBC 20.1 H, RBC 3.07 L, Hgb 9.1 L, Hct 27.9 L, MCV 90.9, MCH 29.6, MCHC 32.6 D, RDW Std Deviation 50.7 H, RDW Coeff of Nguyen 15.4 H, Plt Count 181, MPV 9.8, Immature Gran % (Auto) 0.600, Neut % (Auto) 93.5 H, Lymph % (Auto) 0.8 L, [place] % (Auto) 5.0, Eos % (Auto) 0.0, Baso % (Auto) 0.1, Absolute Neuts (auto) 18.7 H, Absolute Lymphs (auto) 0.17 L, Nucleated RBC % 0, Anisocytosis 1+, [place] Cells 1+, Acanthocytes (Spur) RARE 03/02/22 04:11: PT 46.1 H, INR 5.0 H* 03/02/22 04:11: Sodium 131 L, Potassium 6.4 H*, Chloride 97 L, Carbon Dioxide 23.0, Anion Gap 11, BUN 153 H*, Creatinine 9.61 H*, Estim Creat Clear Calc 6.11, Est GFR (MDRD) Af Amer 7 L, Est GFR (MDRD) Non-Af 6 L, BUN/Creatinine Ratio 15.9, Glucose 274 H, Calcium 7.5 L 03/02/22 06:13: Sodium 130 L, Potassium 6.3 H*, Chloride 96 L, Carbon Dioxide 21.0, Anion Gap 13, BUN 149 H*, Creatinine 9.52 H*, Estim Creat Clear Calc 6.17, Est GFR (MDRD) Af Amer 7 L, Est GFR (MDRD) Non-Af 6 L, BUN/Creatinine Ratio 15.7, Glucose 284 H, Calcium 7.5 L 03/02/22 08:05: Random Vancomycin 6.7 03/02/22 09:23: POC Glucose 280 H 03/02/22 11:27: POC Glucose 321 H Micro: Microbiology 03/01/22 21:30 Mucosa - Nasopharyngeal Respiratory Panel (PCR) - Final 03/01/22 22:00 Urine Catheter - Catheter Legionella Antigen - Final 03/01/22 22:00 Urine Catheter - Catheter Streptococcus pneumoniae Antigen (M - Final ABG Data ABG results: ABG 03/01/22 20:08 Specimen Type NEHA VBG pH 7.26 L VBG pO2 42 H VBG HCO3 15 L VBG Total CO2 16 L VBG O2 Sat (Calc) 70 VBG Base Excess -12 L POC Mix VBG pCO2 Pt Tmp 33.8 L O2 Delivery Device Room Air Radiology Impression Chest X-Ray 03/01/22 14:10 IMPRESSION: Mild degree of increased markings at the lung bases with blunting of the right costophrenic angle. Electronically Signed: Akil Davis MD at 14:38 EST , Renal Ultrasound 03/01/22 15:40 IMPRESSION: Findings consistent with nonspecific renal parenchymal disease. No evidence for obstruction Electronically Signed: Matt Cameron MD at 16:56 EST , Chest X-Ray 03/01/22 18:50 IMPRESSION: Bilateral lower lobe and left upper lobe consolidation. No evidence of pneumothorax status post left central line placement Electronically Signed: Matt Cameron MD at 19:06 EST Reading Location ID and State: [facility] / [place] , Service support , Echocardiogram 03/01/22 20:05 Interpretation Summary Mild to moderate global left ventricular systolic dysfunction. The left ventricular ejection fraction is 40 %. Stage 3 diastolic dysfunction. The left atrium is severely enlarged. The right atrium is moderately enlarged. Moderate (2+) mitral valve insufficiency. Mild tricuspid valve insufficiency. Moderate pulmonary hypertension. Moderate aortic stenosis. Mildly dilated aortic root. The study was technically difficult. Ordering Physician: Lor Lazaro Referring Physician: MD Kip Pedro Luis Performed By: Coby [facility] Foot X-Ray 03/01/22 21:05 IMPRESSION: No radiographic evidence for osteomyelitis. Interstitial concerned, recommend MRI for which is more sensitive. Electronically Signed: Vincenzo Mittal MD at 21:55 EST , Foot X-Ray 03/01/22 21:05 IMPRESSION: No radiographic evidence for osteomyelitis. If still concerned, recommend CT. Electronically Signed: Vincenzo Mittal MD at 22:55 EST ,
--- NOTE | 2022-03-02 14:16 | CON.PCM.SX_ITS ---
Assessment & Plan Assessment/Plan (1) Peripheral vascular disease, unspecified: (2) Non-pressure chronic ulcer of other part of right foot with fat layer exposed: (3) Non-pressure chronic ulcer of other part of left foot with fat layer exposed: PLAN: Plan Based upon patient's multiple nonhealing and necrotic wounds and history of previous digit amputations do believe patient will require angiogram, likely with CO2 given patient's current kidney status, when stable enough to tolerate; however, would like to proceed with obtaining PVRs for now to objectively assess his arterial disease. LEAS order was already placed by podiatry and this test will be completed today. Further plan will be based upon these results. HPI Consult Data Date of Consult: 03/02/22 HPI Narrative Reason for Consultation: Peripheral vascular disease with multiple bilateral lower extremity wounds HPI Narrative: FRANCISCO DUBOSE, is a 76 M who presents in the ICU with septic shock secondary to infected diabetic lower extremity wounds. Patient reports he has had wounds on his bilateral lower legs since late September or early October of this year. He has been following in the wound care center and more recently with podiatry, Dr. Fan, regarding these. He was scheduled to obtain outpatient PVRs on 03/01 however instead presented to the ED with hypotension and dyspnea. In the ED was found to be in septic shock with associated DAVIS and was admitted to the ICU. Patient continues to require vasopressors. Is currently on IV antibiotics, vancomycin and Zosyn, to treat infection. Due to continued worsening of kidney function, temporary dialysis catheter was placed in right femoral vein in anticipation of dialysis today. Patient is on Coumadin for PAF, currently being held and INRs monitored. Dr. Fan is planning for left great toe amputation as a means for infection source control. We are consulted as there is concern that this amputation may not heal due to poor vascular status and patient may ultimately require revascularization vs. more proximal left lower extremity amputation. Patient has no complaints time other than some low back pain, denies pain to bilateral lower extremities. States diabetes is typically under good control. He does not smoke. He does have a history of previous lower extremity digit amputations due to nonhealing wounds. He reports that over the last few months his bilateral lower legs have been more swollen than usual. He is unsure if he has experienced claudication prior as he is not typically very active and he does not have much sensation in his lower legs. [facility]LY [facility] Medical History Acute on chronic systolic (congestive) heart failure Alcohol abuse Atherosclerosis of coronary artery bypass graft without angina pectoris Atrial fibrillation Bilateral lower extremity edema CAD (coronary artery disease) Cardiac dysrhythmia Cardiomyopathy Chronic systolic congestive heart failure Chronic ulcer of toe of left foot with fat layer exposed Congestive heart failure Elevated troponin Essential (primary) hypertension GERD (gastroesophageal reflux disease) Heavy alcohol use HLD (hyperlipidemia) Implantable cardioverter-defibrillator (ICD) at end of battery life Ischemic cardiomyopathy [facility] current use of amiodarone [facility] current use of 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 Non-rheumatic tricuspid valve insufficiency NSTEMI (non-ST elevated myocardial infarction) 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 RITESH (obstructive sleep apnea) Paroxysmal atrial fibrillation Paroxysmal atrial fibrillation with rapid ventricular response Paroxysmal atrial flutter Peripheral vascular disease Pleural effusion Secondary pulmonary arterial hypertension Skin ulcer of left great toe with fat layer exposed Sleep apnea Type 2 diabetes mellitus Type 2 diabetes mellitus Ulcer of left lower extremity with fat layer exposed Ulcer of right foot with fat layer exposed Ulcer of right lower extremity with fat layer exposed Ventricular tachycardia Home Medications aspirin 81 mg tablet,delayed release 81 mg PO DAILY heart health 09/19/18 [History Last Taken 03/01/22] Handicap Placard #1 ea 08/28/19 [Rx Last Taken Unknown] atorvastatin 80 mg tablet 80 mg PO QHS #90 tabs 05/23/21 [Rx Last Taken 02/28/22] Novolin N Flexpen 5 units QHS diabetes 11/03/21 [History Last Taken 02/28/22] Novolin N Flexpen 12 units DAILY daily 11/03/21 [History Last Taken 02/28/22] warfarin 2 mg tablet (Jantoven) 2 mg PO DINNER #0 tabs 11/06/21 [Rx Last Taken 02/26/22] omeprazole 20 mg capsule,delayed release 20 mg PO DAILY PRN acid reflux 11/14/21 [History Last Taken 02/01/22] ascorbic acid (vitamin C) 500 mg tablet 500 mg PO DAILY 01/01/22 [History Last Taken 03/01/22] cholecalciferol (vitamin D3) 25 mcg (1,000 unit) capsule 25 mcg PO DAILY 01/01/22 [History Last Taken Unknown] potassium chloride 20 mEq tablet,extended release 20 meq PO DAILY 01/24/22 [History Last Taken 03/01/22] metoprolol succinate 100 mg tablet,extended release 24 hr 100 mg PO BID #180 tabs 02/05/22 [Rx Last Taken 02/27/22] furosemide 40 mg tablet 40 mg PO BID 02/28/22 [History Last Taken 03/01/22] spironolactone 25 mg tablet 25 mg PO DAILY #30 tabs 02/28/22 [Rx Last Taken 03/01/22] ciprofloxacin HCl 750 mg tablet 750 mg PO BID INFECTION 03/01/22 [History Last Taken 03/01/22] doxycycline hyclate 100 mg tablet 100 mg PO BID INFECTION 03/01/22 [History Last Taken 03/01/22] losartan 25 mg tablet 25 mg PO DAILY HTN 03/01/22 [History Last Taken 02/28/22] Allergy/AdvReac Type Severity Reaction Status Date / Time amiodarone AdvReac Shortness Verified 03/01/22 13:28 of breath lisinopril AdvReac cough Verified 03/01/22 13:28 Family History (Updated 03/01/22 @ 21:[address] Lor Lazaro MD) Mother Bleeding in brain due to brain aneurysm Father History of aneurysm of peripheral artery Surgical History H/O coronary artery bypass surgery (1997) History of coronary artery stent placement (01/2016) History of implantable cardiac defibrillator (ICD) (02/11/20) History of thoracentesis Hx of CABG S/P PTCA (percutaneous transluminal coronary angioplasty) Social History household members: spouse Smoking Status: Never smoker alcohol intake: current alcohol intake frequency: a few times a week Alcohol type: beer substance use type: does not use caffeine: Yes Type: coffee Number of servings: 2 what type of physical activity do you participate in: none seatbelt use: never do you feel safe at home: Yes ROS Constitutional Constitutional: Reports systems reviewed and no addt'l complaints, except as documented and as per HPI Physical Exam Const alert, oriented x3 and no apparent distress General Appearance: cooperative and well developed HEENT normocephalic, head/scalp atraumatic and hearing grossly normal bilaterally Eyes EOMs intact bilaterally General Eye: normal appearance of both eyes Neck no JVD General: trachea midline Resp normal respiratory effort, No no retractions, No no use of accessory muscles and clear to auscultation bilaterally Effort and Inspection: able to speak in complete sentences; Negative for stridor, actively coughing or audible wheezes Cardio regular rate and regular rhythm Heart Sounds: murmur Extremity Extremity Narrative: Lower legs and feet covered by dressings which I did not remove for inspection -- unable to evaluate lower extremity pulses. Did review photos in chart from wound nurse of bilateral lower extremity wounds which revealed previous amputation of right great toe and left 4th digit. Peripheral Pulses: Yes brachial pulses present, radial pulses present and ulnar pulses present Skin Wound Narrative: Unable to directly visualize wounds of lower extremities as dressings were in place. However, did review photos of wounds uploaded by wound care nurse this morning. Photos reveal multiple bilateral lower extremity wounds as follows: Right 2nd digit with necrotic tissue, dorsal foot, anterior lower leg; Left lateral lower leg, medial lower leg, anterior lower leg, lateral heel, lateral aspect of foot near fifth digit, and two wounds on great toe with necrotic tissue. Neuro oriented x3, CN's II-XII intact bilaterally and moves all extremities Psych mental status grossly normal, affect normal and speech normal Lab / Micro Data Result Diagrams: 03/02/22 04:11 03/02/22 06:13 Labs: Laboratory Results - last 24 hr 03/01/22 13:48: Sodium 131 L, Potassium 6.7 H*, Chloride 100, Carbon Dioxide 16.0 L, Anion Gap 15, BUN 156 H*, Creatinine 9.65 H*, Estim Creat Clear Calc 6.09, Est GFR (MDRD) Af Amer 7 L, Est GFR (MDRD) Non-Af 6 L, BUN/Creatinine Ratio 16.2, Glucose 87, Calcium 7.8 L, Troponin I High Sens 79 H 03/01/22 13:48: B-Natriuretic Peptide 549.0 H 03/01/22 13:48: Phosphorus 9.1 H*, Magnesium 1.3 L 03/01/22 14:13: PT 38.2 H, INR 3.9 03/01/22 17:25: POC Glucose 182 H 03/01/22 20:05: Complement C3 Cancelled 03/01/22 20:05: Sodium 131 L, Potassium 6.1 H*, Chloride 98, Carbon Dioxide 18.0 L, Anion Gap 15, BUN 152 H*, Creatinine 9.62 H*, Estim Creat Clear Calc 6.11, Est GFR (MDRD) Af Amer 7 L, Est GFR (MDRD) Non-Af 6 L, BUN/Creatinine Ratio 1 5.8, Glucose 273 H, Calcium 8.3 L, Troponin I High Sens 75 03/01/22 21:15: POC Glucose 207 H 03/01/22 22:00: Urine Color Yellow, Urine Clarity Clear, Urine pH 5.0, Ur Specific [place] 1.025, Urine Protein 100 H, Urine Glucose (UA) Normal, Urine Ketones Negative, Urine Occult Blood 10 H, Urine Nitrite Negative, Urine Bilirubin Negative, Urine Urobilinogen Normal, Ur Leukocyte Esterase 25 H, Urine RBC 0 SEEN, Urine WBC 0-5 SEEN, Ur Squamous Epith Cells 0-5 SEEN, Urine Bacteria 0 SEEN, Urine Mucus 0 SEEN 03/01/22 22:00: Ur Random Sodium 8, Urine Creatinine 214.00, Urine Urea Nitrogen 398 03/01/22 22:05: Sodium 131 L, Potassium 6.1 H*, Chloride 99, Carbon Dioxide 19.0 L, Anion Gap 13, BUN 157 H*, Creatinine 9.76 H*, Estim Creat Clear Calc 6.02, Est GFR (MDRD) Af Amer 7 L, Est GFR (MDRD) Non-Af 6 L, BUN/Creatinine Ratio 16.1, Glucose 225 H, Calcium 8.1 L 03/02/22 00:10: Sodium 130 L, Potassium 6.3 H*, Chloride 98, Carbon Dioxide 20.0 L, Anion Gap 12, BUN 162 H*, Creatinine 9.70 H*, Estim Creat Clear Calc 6.06, Est GFR (MDRD) Af Amer 7 L, Est GFR (MDRD) Non-Af 6 L, BUN/Creatinine Ratio 16.7, Glucose 224 H, Calcium 8.0 L, Troponin I High Sens 104 H 03/02/22 02:05: Sodium 131 L, Potassium 6.3 H*, Chloride 98, Carbon Dioxide 21.0, Anion Gap 12, BUN 155 H*, Creatinine 9.43 H*, Estim Creat Clear Calc 6.23, Est GFR (MDRD) Af Amer 7 L, Est GFR (MDRD) Non-Af 6 L, BUN/Creatinine Ratio 16.4, Glucose 248 H, Calcium 7.6 L, Total Bilirubin 0.70, AST 16, ALT 14 L, Alkaline Phosphatase 73, Troponin I High Sens 147 H*, Total Protein 6.1 L, Albumin 2.6 L, Globulin 3.5, Albumin/Globulin Ratio 0.7 L 03/02/22 04:11: WBC 20.1 H, RBC 3.07 L, Hgb 9.1 L, Hct 27.9 L, MCV 90.9, MCH 29.6, MCHC 32.6 D, RDW Std Deviation 50.7 H, RDW Coeff of Nguyen 15.4 H, Plt Count 181, MPV 9.8, Immature Gran % (Auto) 0.600, Neut % (Auto) 93.5 H, Lymph % (Auto) 0.8 L, [place] % (Auto) 5.0, Eos % (Auto) 0.0, Baso % (Auto) 0.1, Absolute Neuts (auto) 18.7 H, Absolute Lymphs (auto) 0.17 L, Nucleated RBC % 0, Anisocytosis 1+, [place] Cells 1+, Acanthocytes (Spur) RARE 03/02/22 04:11: PT 46.1 H, INR 5.0 H* 03/02/22 04:11: Sodium 131 L, Potassium 6.4 H*, Chloride 97 L, Carbon Dioxide 23.0, Anion Gap 11, BUN 153 H*, Creatinine 9.61 H*, Estim Creat Clear Calc 6.11, Est GFR (MDRD) Af Amer 7 L, Est GFR (MDRD) Non-Af 6 L, BUN/Creatinine Ratio 15.9, Glucose 274 H, Calcium 7.5 L 03/02/22 06:13: Sodium 130 L, Potassium 6.3 H*, Chloride 96 L, Carbon Dioxide 21.0, Anion Gap 13, BUN 149 H*, Creatinine 9.52 H*, Estim Creat Clear Calc 6.17, Est GFR (MDRD) Af Amer 7 L, Est GFR (MDRD) Non-Af 6 L, BUN/Creatinine Ratio 15.7, Glucose 284 H, Calcium 7.5 L 03/02/22 08:05: Random Vancomycin 6.7 03/02/22 09:23: POC Glucose 280 H 03/02/22 11:27: POC Glucose 321 H Micro: Microbiology 03/01/22 21:30 Mucosa - Nasopharyngeal Respiratory Panel (PCR) - Final 03/01/22 22:00 Urine Catheter - Catheter Legionella Antigen - Final 03/01/22 22:00 Urine Catheter - Catheter Streptococcus pneumoniae Antigen (M - Final ABG Data ABG results: ABG 03/01/22 20:08 Specimen Type NEHA VBG pH 7.26 L VBG pO2 42 H VBG HCO3 15 L VBG Total CO2 16 L VBG O2 Sat (Calc) 70 VBG Base Excess -12 L POC Mix VBG pCO2 Pt Tmp 33.8 L O2 Delivery Device Room Air Radiology Impression Chest X-Ray 03/01/22 14:10 IMPRESSION: Mild degree of increased markings at the lung bases with blunting of the right costophrenic angle. Electronically Signed: Akil Davis MD at 14:38 EST , Renal Ultrasound 03/01/22 15:40 IMPRESSION: Findings consistent with nonspecific renal parenchymal disease. No evidence for obstruction Electronically Signed: Matt Cameron MD at 16:56 EST , Chest X-Ray 03/01/22 18:50 IMPRESSION: Bilateral lower lobe and left upper lobe consolidation. No evidence of pneumothorax status post left central line placement Electronically Signed: Matt Cameron MD at 19:06 EST , Echocardiogram 03/01/22 20:05 Interpretation Summary Mild to moderate global left ventricular systolic dysfunction. The left ventricular ejection fraction is 40 %. Stage 3 diastolic dysfunction. The left atrium is severely enlarged. The right atrium is moderately enlarged. Moderate (2+) mitral valve insufficiency. Mild tricuspid valve insufficiency. Moderate pulmonary hypertension. Moderate aortic stenosis. Mildly dilated aortic root. The study was technically difficult. Ordering Physician: Lor Lazaro Referring Physician: MD Kip Pedro Luis Performed By: Coby New RCS Foot X-Ray 03/01/22 21:05 IMPRESSION: No radiographic evidence for osteomyelitis. Interstitial concerned, recommend MRI for which is more sensitive. Electronically Signed: Vincenzo Mittal MD at 21:55 EST , Foot X-Ray 03/01/22 21:05 IMPRESSION: No radiographic evidence for osteomyelitis. If still concerned, recommend CT. Electronically Signed: Vincenzo Mittal MD at 22:55 EST , Charges/Coding Visit Charges Office Visits / Consults: 77888 IP Consult L2
--- NOTE | 2022-03-02 14:29 | PN.HOSP_ITS ---
Subjective Subjective Seen and examined today, briefly talked with nephrology about his care, nephrology placed a dialysis catheter today and the patient this time is being dialyzed. Patient is still on pressor agents, I talked with critical care about his medical condition. Patient appears to be in septic shock at this time, he has acute kidney injury and hyperkalemia. Patient is lower extremity wounds are numerous and podiatry and infectious diseases are seeing the patient. At the time of this dictation, patient's pulse ox is 97 on room air and his blood pressure is 110/29 with pressors. Objective Data Objective Data Vital Signs: Vital Signs Temp Pulse Resp BP Pulse Ox O2 Del Method O2 Flow Rate 99.2 F H 78 18 110/29 L 95 Room Air 3 03/02/22 10:00 03/02/22 12:00 03/02/22 12:00 03/02/22 12:00 03/02/22 13:24 03/02/22 14:00 03/01/22 19:24 Oxygen Flow Rate (L/min) 3 Oxygen Delivery Method Room Air Weight: 77.6 kg Body Mass Index (BMI) 26.0 Intake & Output: Intake and Output for Last 24 Hours 02/28/22 03/01/22 03/02/22 23:59 23:59 23:59 Intake Total 1580.69 / 1585.39 2328.47 / 2328.47 Output Total 50 / 50 100 / 100 Balance 1530.69 / 1535.39 2228.47 / 2228.47 Lab / Micro Data Result Diagrams: 03/02/22 04:11 03/02/22 06:13 Labs: Laboratory Results - last 24 hr 03/01/22 13:48: B-Natriuretic Peptide 549.0 H 03/01/22 13:48: Phosphorus 9.1 H*, Magnesium 1.3 L 03/01/22 14:13: PT 38.2 H, INR 3.9 03/01/22 17:25: POC Glucose 182 H 03/01/22 20:05: Complement C3 Cancelled 03/01/22 20:05: Sodium 131 L, Potassium 6.1 H*, Chloride 98, Carbon Dioxide 18.0 L, Anion Gap 15, BUN 152 H*, Creatinine 9.62 H*, Estim Creat Clear Calc 6.11, Est GFR (MDRD) Af Amer 7 L, Est GFR (MDRD) Non-Af 6 L, BUN/Creatinine Ratio 15.8, Glucose 273 H, Calcium 8.3 L, Troponin I High Sens 75 03/01/22 21:15: POC Glucose 207 H 03/01/22 22:00: Urine Color Yellow, Urine Clarity Clear, Urine pH 5.0, Ur Sp ecific [place] 1.025, Urine Protein 100 H, Urine Glucose (UA) Normal, Urine K etones Negative, Urine Occult Blood 10 H, Urine Nitrite Negative, Urine Bilir ubin Negative, Urine Urobilinogen Normal, Ur Leukocyte Esterase 25 H, Urine RBC 0 SEEN, Urine WBC 0-5 SEEN, Ur Squamous Epith Cells 0-5 SEEN, Urine Bacteria 0 SEEN, Urine Mucus 0 SEEN 03/01/22 22:00: Ur Random Sodium 8, Urine Creatinine 214.00, Urine Urea Nitrogen 398 03/01/22 22:05: Sodium 131 L, Potassium 6.1 H*, Chloride 99, Carbon Dioxide 19.0 L, Anion Gap 13, BUN 157 H*, Creatinine 9.76 H*, Estim Creat Clear Calc 6.02, Est GFR (MDRD) Af Amer 7 L, Est GFR (MDRD) Non-Af 6 L, BUN/Creatinine Ratio 16.1, Glucose 225 H, Calcium 8.1 L 03/02/22 00:10: Sodium 130 L, Potassium 6.3 H*, Chloride 98, Carbon Dioxide 20.0 L, Anion Gap 12, BUN 162 H*, Creatinine 9.70 H*, Estim Creat Clear Calc 6.06, Est GFR (MDRD) Af Amer 7 L, Est GFR (MDRD) Non-Af 6 L, BUN/Creatinine Ratio 16.7, Glucose 224 H, Calcium 8.0 L, Troponin I High Sens 104 H 03/02/22 02:05: Sodium 131 L, Potassium 6.3 H*, Chloride 98, Carbon Dioxide 21.0, Anion Gap 12, BUN 155 H*, Creatinine 9.43 H*, Estim Creat Clear Calc 6.23, Est GFR (MDRD) Af Amer 7 L, Est GFR (MDRD) Non-Af 6 L, BUN/Creatinine Ratio 16.4, Glucose 248 H, Calcium 7.6 L, Total Bilirubin 0.70, AST 16, ALT 14 L, Alkaline Phosphatase 73, Troponin I High Sens 147 H*, Total Protein 6.1 L, Albumin 2.6 L, Globulin 3.5, Albumin/Globulin Ratio 0.7 L 03/02/22 04:11: WBC 20.1 H, RBC 3.07 L, Hgb 9.1 L, Hct 27.9 L, MCV 90.9, MCH 29.6, MCHC 32.6 D, RDW Std Deviation 50.7 H, RDW Coeff of Nguyen 15.4 H, Plt Count 181, MPV 9.8, Immature Gran % (Auto) 0.600, Neut % (Auto) 93.5 H, Lymph % (Auto) 0.8 L, [place] % (Auto) 5.0, Eos % (Auto) 0.0, Baso % (Auto) 0.1, Absolute Neuts (auto) 18.7 H, Absolute Lymphs (auto) 0.17 L, Nucleated RBC % 0, Anisocytosis 1+, [place] Cells 1+, Acanthocytes (Spur) RARE 03/02/22 04:11: PT 46.1 H, INR 5.0 H* 03/02/22 04:11: Sodium 131 L, Potassium 6.4 H*, Chloride 97 L, Carbon Dioxide 23.0, Anion Gap 11, BUN 153 H*, Creatinine 9.61 H*, Estim Creat Clear Calc 6.11, Est GFR (MDRD) Af Amer 7 L, Est GFR (MDRD) Non-Af 6 L, BUN/Creatinine Ratio 15.9, Glucose 274 H, Calcium 7.5 L 03/02/22 06:13: Sodium 130 L, Potassium 6.3 H*, Chloride 96 L, Carbon Dioxide 21.0, Anion Gap 13, BUN 149 H*, Creatinine 9.52 H*, Estim Creat Clear Calc 6.17, Est GFR (MDRD) Af Amer 7 L, Est GFR (MDRD) Non-Af 6 L, BUN/Creatinine Ratio 15.7, Glucose 284 H, Calcium 7.5 L 03/02/22 08:05: Random Vancomycin 6.7 03/02/22 09:23: POC Glucose 280 H 03/02/22 11:27: POC Glucose 321 H Micro: Microbiology 03/01/22 21:30 Mucosa - Nasopharyngeal Respiratory Panel (PCR) - Final 03/01/22 22:00 Urine Catheter - Catheter Legionella Antigen - Final 03/01/22 22:00 Urine Catheter - Catheter Streptococcus pneumoniae Antigen (M - Final ABG Data ABG results: ABG 03/01/22 20:08 Specimen Type NEHA VBG pH 7.26 L VBG pO2 42 H VBG HCO3 15 L VBG Total CO2 16 L VBG O2 Sat (Calc) 70 VBG Base Excess -12 L POC Mix VBG pCO2 Pt Tmp 33.8 L O2 Delivery Device Room Air Radiography Diagnostic Testing: Radiology Impression Chest X-Ray 03/01/22 14:10 IMPRESSION: Mild degree of increased markings at the lung bases with blunting of the right costophrenic angle. Electronically Signed: Akil Davis MD at 14:38 EST , Renal Ultrasound 03/01/22 15:40 IMPRESSION: Findings consistent with nonspecific renal parenchymal disease. No evidence for obstruction Electronically Signed: Matt Cameron MD at 16:56 EST , Chest X-Ray 03/01/22 18:50 IMPRESSION: Bilateral lower lobe and left upper lobe consolidation. No evidence of pneumothorax status post left central line placement Electronically Signed: Matt Cameron MD at 19:06 EST , Echocardiogram 03/01/22 20:05 Interpretation Summary Mild to moderate global left ventricular systolic dysfunction. The left ventricular ejection fraction is 40 %. Stage 3 diastolic dysfunction. The left atrium is severely enlarged. The right atrium is moderately enlarged. Moderate (2+) mitral valve insufficiency. Mild tricuspid valve insufficiency. Moderate pulmonary hypertension. Moderate aortic stenosis. Mildly dilated aortic root. The study was technically difficult. Ordering Physician: Lor Lazaro Referring Physician: MD Kip Pedro Luis Performed By: Coby New RCS Foot X-Ray 03/01/22 21:05 IMPRESSION: No radiographic evidence for osteomyelitis. Interstitial concerned, recommend MRI for which is more sensitive. Electronically Signed: Vincenzo Mittal MD at 21:55 EST , Foot X-Ray 03/01/22 21:05 IMPRESSION: No radiographic evidence for osteomyelitis. If still concerned, recommend CT. Electronically Signed: Vincenzo Mittal MD at 22:55 EST , Physical Exam Const alert, oriented x3 and no apparent distress Constitutional Narrative: Patient appears much older than his stated age General Appearance: cooperative, well kempt and well developed Orientation / Consciousness: awake, oriented to person, oriented to place and oriented to time HEENT normocephalic, head/scalp atraumatic and moist oral mucous membranes Eyes PERRL, EOMs intact bilaterally and conjunctivae normal Neck supple, no JVD, thyroid normal and no carotid bruits General: trachea midline Resp normal respiratory effort, no retractions, no use of accessory muscles and clear to auscultation bilaterally Auscultation: Negative for rales, rhonchi or wheezes Cardio regular rate, regular rhythm, no rub and no gallops Cardio Narrative: Patient has a 2/6 systolic murmur noted at the apex, right sternal border, and left sternal border. GI normal to inspection, nondistended, normoactive bowel sounds, soft to palpation, non-tender and non-distended Extremity Extremity Narrative: Lower legs were not examined due to presence of surgical dressing over both legs Skin Skin Narrative: Lower legs were not examined due to the fact they are wrapped with surgical dressing, this was not removed for inspection Neuro oriented x3, CN's II-XII intact bilaterally, moves all extremities, no focal motor deficits and no sensory deficits noted Sensorium / Orientation: awake and alert Speech: speech normal Psych affect normal Assessment & Plan Assessment/Plan (1) Septic shock: PLAN: Plan 1. Septic shock-etiology is infected wounds of the legs and feet, patient will remain on antibiotics per infectious diseases, critical care is also seeing the patient #2 acute kidney injury-patient is being seen by nephrology, he is undergoing dialysis today #3 hyperkalemia-patient is undergoing dialysis today #4 ischemic cardiomyopathy-patient's echocardiogram performed yesterday shows an ejection fraction of 40%, patient will remain on medications when his blood pressure permits. #5 paroxysmal A. fib-patient is on Coumadin as an outpatient, his INR was elevated and Coumadin is being held at this time #6 hypercoagulable state secondary to paroxysmal A. fib-patient is on Coumadin as an outpatient, it is being held due to elevated INR at this time, INR will be monitored #7 type 2 diabetes-blood sugars will be monitored, sliding scale insulin will be administered as needed #8 coronary artery disease-patient will remain on his present medications if his blood pressure is able to tolerate them #9 moderate pulmonary hypertension-complicates care, management, recovery, and prognosis #10 lower leg/foot wounds-podiatry is seeing the patient, conservative care and antibiotics until reevaluated off pressors #11 valvular heart disease with moderate aortic stenosis and moderate mitral valve insufficiency-complicates care, management, recovery, and prognosis #12 chronic systolic congestive heart failure-patient will be dialyzed today and this should help with fluid balance Charges/Coding Visit Charges Inpatient E&M: 85959 Subs Hosp L2
[2022-03-02] MEDS: Heparin 10,000 UNITS/10 ML Vial IV (17:04)
[2022-03-02] MEDS: Vancomycin IV 1,000 MG/200 ML BAG 200 MG IV (17:05)
--- NOTE | 2022-03-02 17:13 | CHAPLAIN ---
Type of Pastoral Visit _x__ Initial Visit ___ Follow-up Visit ___ On-call Visit ___ General Patient Visit ___ Spiritual Assessment ___ Family Conference ___ Bereavement ___ Rapid Response ___ Code Blue ___ Other (describe below) Pastoral Care Referral From _x__ Patient ___ Family _x__ Nurse ___ Physician ___ Foster Care Worker ___ Fsr ___ Other (describe below) Sacrament/Intervention _x__ Active listening ___ Anointing ___ Buddhist ___ Bereavement ___ Communion ___ Elke exploration ___ ___ Life review _x__ Prayer ___ Reconciliation ___ Sacrament of Sick _x__ Supportive presence ___ Wedding ___ Other (describe below) Pastoral Comments patient was receiving dialysis; pt is alert and able to talk; pt expresses frustration with being sick and uncomfortable; pt states goal is just to get well; explored what are his coping mechanisms or helpful thoughts but pt unable to be very clear about that; pt did talk casually about what was on TV; pt welcomed a prayer
--- NOTE | 2022-03-02 17:19 | DIALYSIS ---
First hemodialysis tx completed x 2.5 hours without complications. Pt tolerated tx fair. No fluid removed. Pt between A-fib, sinus and sinus tach during tx. Pt required Levophed being titrated to 20mcg at start of tx but then vitals remained stable throughout. Verbal report to KALEB Schulte
[2022-03-02 17:28] LABS: Hepatitis B Surface Antigen Non-Reactive (Nonreactive)
[2022-03-02 17:46] LABS: Hepatitis B Surface Antibody Reactive
[2022-03-02 18:20] LABS: Bedside Glucose 100 mg/dL (74-106)
[2022-03-02] MEDS: Atorvastatin Calcium 80 MG Tablet PO (21:19)
[2022-03-02 21:36] LABS: Bedside Glucose 97 mg/dL (74-106)
[2022-03-02] MEDS: MELATONIN 3 MG TABLET PO (21:36)
[2022-03-03] VITALS (29 sets, daily range): BP systolic 91–139; BP diastolic 50–94; PULSE 83–111; RESP 14–31; TEMP 36.4–37.1; O2SAT 87–100
[2022-03-03] MEDS: 0.9% Normal Saline 1,000 ML 75 ML IV ×2 (00:29→13:53)
[2022-03-03] MEDS: Magnesium Sulfate 4gm/100mL 4 GM/100 ML IV.SOLN. IV (03:30)
[2022-03-03 03:34] LABS: Absolute Lymphocyte Count 0.26 X10^3/uL (0.83-4.51); Absolute Neutrophil Count 8.7 X10^3/uL (2.0-7.7); Basophil# 0.01 X10^3/uL; Basophil% 0.1 % (0-1); Eosinophil# 0.04 X10^3/uL; Eosinophils% 0.4 % (0-5); Hematocrit 22.9 % (40-54); Hemoglobin 7.5 g/dL (13.0-16.5); Lymphocyte # 0.26 X10^3/ul (0.83-4.51); Lymphocyte % 2.7 % (19-41); Mean Corp Hgb Conc 32.8 g/dL (32-36); Mean Corpuscular Hgb 29.6 pg (27.0-32.0); Mean Corpuscular Volume 90.5 fL (80-94); Mean Platelet Vol. 9.7 fl (6.2-12.0); Monocyte# 0.58 X10^3/uL; NRBC Flagged by Analyzer 0 % (0-5); Neutrophil # 8.74 X10^3/uL (2.7-7.7); Neutrophil % 90.2 % (47-70); POSITIVE COUNT YES; POSITIVE DIFFERENTIAL YES; Platelet Count 88 K/mm3 (150-450); RBC Distribution Width CV 15.8 % (11.6-14.6); RBC Distribution Width SD 51.6 fl (35.1-43.9); Red Blood Count 2.53 M/mm3 (4.6-6.2); White Blood Count 9.7 K/mm3 (4.4-11.0)
[2022-03-03 03:47] LABS: Differential Indicated SCAN CRITERIA MET
[2022-03-03 03:56] LABS: Anion Gap 11 (5-15); BUN 87 mg/dL (7-18); BUN/Creat Ratio 13.7 RATIO (10-20); Calcium,Total 7.2 mg/dL (8.5-10.1); Chloride 98 mmol/L (98-107); Creatinine, Serum 6.36 mg/dL (0.70-1.30); EST Glomerular Filtration Rate 9 mL/min (>60); Est Glom Filt Rate - Afr Amer 11 mL/min (>60); Estimated Creatinine Clearance 9.24 ml/min; Glucose 97 mg/dL (74-106); Potassium 4.5 mmol/L (3.5-5.1); Sodium Level 134 mmol/L (136-145)
[2022-03-03 04:12] LABS: Differential Comment SCANNED
--- NOTE | 2022-03-03 04:36 | NURSING ---
Pt had multiple loose bowel movements during dayshift. Pt has multiple open areas and blisters to coccyx, but d/t frequent bowel movements, a mepilex was ineffective. Pt agreeable to try a fecal management system to allow for healing to wounds d/t frequent diarrhea. FMS placed around 1999 last evening; however, pt became frustrated and wanted FMS removed d/t the pain. FMS removed, pt more comfortable now.
[2022-03-03] MEDS: 0.9% Saline Lock 10 ML Syringe IV (05:20)
--- NOTE | 2022-03-03 05:46 | PCM.PN.INT ---
Assessment & Plan Assessment/Plan (1) Septic shock: PLAN: Plan RECOMMENDATIONS: 1. Continue Levophed and titrate to maintain a systolic blood pressure greater than 90 mmHg. 2. Continue antimicrobials per ID recommendations. 3. Ongoing dialysis support per nephrology recommendations. 4. Send type and screen. Start PPI therapy twice daily. 5. Recheck INR this morning. 6. Encourage incentive spirometer use while in bed. 7. Surgical intervention per podiatry. IMPRESSIONS: 1. Septic shock The patient presented with sepsis due to infected diabetic foot wounds with acute sepsis related organ dysfunction as evidenced by acute kidney injury and fluid refractory hypotension, necessitating vasopressor support. The patient remains on appropriate antimicrobials. Plan to continue Levophed to maintain a systolic blood pressure greater than 90 mmHg. Defer definitive management of lower extremity diabetic wounds to podiatry, who is currently following. 2. Acute kidney injury Most likely prerenal in etiology in the setting of #1. The patient did receive supplemental IV fluids and remains on vasopressor support to maintain hemodynamic stability. The patient will be continued on dialysis support per nephrology recommendations. 3. Coagulopathy The patient is maintained on Coumadin on an outpatient basis. The patient is coagulopathic in the setting of sepsis. Agree with holding systemic anticoagulation and monitoring INR daily. Recommend rechecking INR this morning. If the patient's INR continues to climb, vitamin K may be indicated, given that he is now anemic. 4. Anemia The patient's hemoglobin has dropped to 7.5 g/dL this morning. We will send type and screen. PPI therapy twice daily will be initiated. Continue to monitor blood counts daily and transfuse if hemoglobin drops below 7 g/dL. 5. History of ischemic cardiomyopathy/paroxysmal atrial fibrillation/anemia/diabetes mellitus/GERD/RTIESH Complicates care, management, recovery and prognosis. Continue to hold Coumadin and antihypertensives. The patient will be maintained on sliding scale insulin coverage. TIME: 34 minutes of critical care time, independent of procedures, was spent addressing the patient's septic shock, acute kidney injury, coagulopathy, anemia, review of all data and collaboration with the care team. Subjective Subjective The patient was seen and examined at the bedside this morning. Events from the last 24 hours have been reviewed. The patient is currently afebrile and remains hemodynamically stable on Levophed at 5 mcg/min. The patient is maintaining appropriate oxygen saturations on room air. He is currently documented to be overall net +5 L for the hospitalization. Hemoglobin is down to 7.5 g/dL this morning. The patient is thrombocytopenic with a platelet count of 88,000. The patient reported feeling uncomfortable in bed and is anxious to get his surgery completed. Objective Data Objective Data The patient's most recent lab work, culture data and imaging studies have all been personally reviewed. Surface echocardiogram demonstrated mild to moderate global LV systolic dysfunction with an ejection fraction of 40% and stage III diastolic dysfunction. The left atrium was severely enlarged. Pulmonary artery systolic pressure was estimated to be 50 mmHg. Blood cultures are pending. Vital Signs: Vital Signs Temp Pulse Resp BP Pulse Ox O2 Del Method O2 Flow Rate 97.7 F L 87 20 H 116/61 92 Room Air 2 03/03/22 03:00 03/03/22 04:00 03/03/22 04:00 03/03/22 04:00 03/03/22 04:00 03/03/22 04:00 03/03/22 03:00 Oxygen Flow Rate (L/min) 2 Oxygen Delivery Method Room Air Weight: 173 lb 8.061 oz Body Mass Index (BMI) 26.0 Intake & Output: Intake and Output for Last 24 Hours 03/01/22 03/02/22 03/03/22 23:59 23:59 23:59 Intake Total 1580.69 / 1585.39 2899.56 / 2908.96 1027.0 / 1027.0 Output Total 50 / 50 255 / 355 170 / 170 Balance 1530.69 / 1535.39 2644.56 / 2553.96 857.0 / 857.0 Lab / Micro Data Attestation: I reviewed the patient's lab results. Result Diagrams: 03/03/22 03:25 03/03/22 03:25 Labs: Laboratory Results - last 24 hr 03/02/22 06:13: Sodium 130 L, Potassium 6.3 H*, Chloride 96 L, Carbon Dioxide 21.0, Anion Gap 13, BUN 149 H*, Creatinine 9.52 H*, Estim Creat Clear Calc 6.17, Est GFR (MDRD) Af Amer 7 L, Est GFR (MDRD) Non-Af 6 L, BUN/Creatinine Ratio 15.7, Glucose 284 H, Calcium 7.5 L 03/02/22 08:05: Random Vancomycin 6.7 03/02/22 09:23: POC Glucose 280 H 03/02/22 11:27: POC Glucose 321 H 03/02/22 16:10: Hep Bs Antibody Reactive 03/02/22 16:10: Hep Bs Antigen Non-Reactive 03/02/22 17:02: POC Glucose 100 03/02/22 21:14: POC Glucose 97 03/03/22 03:25: WBC 9.7, RBC 2.53 L, Hgb 7.5 L, Hct 22.9 L, MCV 90.5, MCH 29.6, MCHC 32.8, RDW Std Deviation 51.6 H, RDW Coeff of Nguyen 15.8 H, Plt Count 88 L, MPV 9.7, Immature Gran % (Auto) 0.600, Neut % (Auto) 90.2 H, Lymph % (Auto) 2.7 L, [place] % (Auto) 6.0, Eos % (Auto) 0.4, Baso % (Auto) 0.1, Absolute Neuts (auto) 8.7 H, Absolute Lymphs (auto) 0.26 L, Nucleated RBC % 0, Differential Comment SCANNED 03/03/22 03:25: Sodium 134 L, Potassium 4.5, Chloride 98, Carbon Dioxide 25.0, Anion Gap 11, BUN 87 H, Creatinine 6.36 H, Estim Creat Clear Calc 9.24, Est GFR (MDRD) Af Amer 11 L, Est GFR (MDRD) Non-Af 9 L, BUN/Creatinine Ratio 13.7, Glucose 97, Calcium 7.2 L Micro: Microbiology 03/02/22 18:20 Stool C. difficile DNA Amplification - Final 03/01/22 21:30 Mucosa - Nasopharyngeal Respiratory Panel (PCR) - Final 03/01/22 22:00 Urine Catheter - Catheter Legionella Antigen - Final 03/01/22 22:00 Urine Catheter - Catheter Streptococcus pneumoniae Antigen (M - Final Radiography Diagnostic Testing: Radiology Impression Echocardiogram 03/01/22 20:05 Interpretation Summary Mild to moderate global left ventricular systolic dysfunction. The left ventricular ejection fraction is 40 %. Stage 3 diastolic dysfunction. The left atrium is severely enlarged. The right atrium is moderately enlarged. Moderate (2+) mitral valve insufficiency. Mild tricuspid valve insufficiency. Moderate pulmonary hypertension. Moderate aortic stenosis. Mildly dilated aortic root. The study was technically difficult. Ordering Physician: Lor Lazaro Referring Physician: MD Kip Pedro Luis Performed By: Coby New RCS Physical Exam Const alert and no apparent distress General Appearance: cooperative HEENT normocephalic and head/scalp atraumatic Eyes PERRL, EOMs intact bilaterally and conjunctivae normal Neck supple General: trachea midline and CVC in place Chest inspection of chest normal Resp normal respiratory effort Auscultation: diminished lung sounds; Negative for rales, rhonchi or wheezes Cardio regular rate and regular rhythm Heart Sounds: murmur GI normal to inspection, nondistended, normoactive bowel sounds Extremity General Extremity: edema bilateral lower extremity Skin Skin Narrative: Lower extremities are currently wrapped. Neuro CN's II-XII intact bilaterally, moves all extremities and no focal motor deficits Psych cooperative and affect normal Charges/Coding Procedures Hospitalists Procedures: 64132 Critial Care 1st Hr
[2022-03-03 06:51] LABS: Prothrombin Time (Protime)PT. 48.7 SECONDS (11.7-14.9)
[2022-03-03 06:55] LABS: Vancomycin, Random Level 15.4 ug/mL (0.0-15.0)
[2022-03-03 06:57] LABS: International Normalized Ratio 5.3
--- NOTE | 2022-03-03 07:41 | PCM.PN.HOSP ---
Subjective Subjective Patient was seen and examined today in ICU, I talked briefly with critical care about his medical care, he will be having dialysis today, patient still on pressors. Patient does not complain of any shortness of breath or chest discomfort to this examiner. Objective Data Objective Data Vital Signs: Vital Signs Temp Pulse Resp BP Pulse Ox O2 Del Method O2 Flow Rate 97.7 F L 88 15 101/54 L 94 Room Air 2 03/03/22 07:00 03/03/22 07:38 03/03/22 07:00 03/03/22 07:00 03/03/22 07:00 03/03/22 07:00 03/03/22 03:00 Oxygen Flow Rate (L/min) 2 Oxygen Delivery Method Room Air Weight: 78.7 kg Body Mass Index (BMI) 26.0 Intake & Output: Intake and Output for Last 24 Hours 03/01/22 03/02/22 03/03/22 23:59 23:59 23:59 Intake Total 1580.69 / 1585.39 2899.56 / 2908.96 1055.2 / 1055.2 Output Total 50 / 50 255 / 355 170 / 170 Balance 1530.69 / 1535.39 2644.56 / 2553.96 885.2 / 885.2 Lab / Micro Data Result Diagrams: 03/03/22 03:25 03/03/22 03:25 Labs: Laboratory Results - last 24 hr 03/02/22 06:13: Sodium 130 L, Potassium 6.3 H*, Chloride 96 L, Carbon Dioxide 21.0, Anion Gap 13, BUN 149 H*, Creatinine 9.52 H*, Estim Creat Clear Calc 6.17, Est GFR (MDRD) Af Amer 7 L, Est GFR (MDRD) Non-Af 6 L, BUN/Creatinine Ratio 15.7, Glucose 284 H, Calcium 7.5 L 03/02/22 08:05: Random Vancomycin 6.7 03/02/22 09:23: POC Glucose 280 H 03/02/22 11:27: POC Glucose 321 H 03/02/22 16:10: Hep Bs Antibody Reactive 03/02/22 16:10: Hep Bs Antigen Non-Reactive 03/02/22 17:02: POC Glucose 100 03/02/22 21:14: POC Glucose 97 03/03/22 03:25: WBC 9.7, RBC 2.53 L, Hgb 7.5 L, Hct 22.9 L, MCV 90.5, MCH 29.6, MCHC 32.8, RDW Std Deviation 51.6 H, RDW Coeff of Nguyen 15.8 H, Plt Count 88 L, MPV 9.7, Immature Gran % (Auto) 0.600, Neut % (Auto) 90.2 H, Lymph % (Auto) 2.7 L, [place] % (Auto) 6.0, Eos % (Auto) 0.4, Baso % (Auto) 0.1, Absolute Neuts (auto) 8.7 H, Absolute Lymphs (auto) 0.26 L, Nucleated RBC % 0, Differential Comment SCANNED 03/03/22 03:25: Sodium 134 L, Potassium 4.5, Chloride 98, Carbon Dioxide 25.0, Anion Gap 11, BUN 87 H, Creatinine 6.36 H, Estim Creat Clear Calc 9.24, Est GFR (MDRD) Af Amer 11 L, Est GFR (MDRD) Non-Af 9 L, BUN/Creatinine Ratio 13.7, Glucose 97, Calcium 7.2 L 03/03/22 06:00: Random Vancomycin 15.4 H 03/03/22 06:00: Blood Type B NEGATIVE, Antibody Screen NEGATIVE 03/03/22 06:00: PT 48.7 H, INR 5.3 H* Micro: Microbiology 03/02/22 18:20 Stool C. difficile DNA Amplification - Final 03/01/22 21:30 Mucosa - Nasopharyngeal Respiratory Panel (PCR) - Final 03/01/22 22:00 Urine Catheter - Catheter Legionella Antigen - Final 03/01/22 22:00 Urine Catheter - Catheter Streptococcus pneumoniae Antigen (M - Final Radiography Diagnostic Testing: Radiology Impression Echocardiogram 03/01/22 20:05 Interpretation Summary Mild to moderate global left ventricular systolic dysfunction. The left ventricular ejection fraction is 40 %. Stage 3 diastolic dysfunction. The left atrium is severely enlarged. The right atrium is moderately enlarged. Moderate (2+) mitral valve insufficiency. Mild tricuspid valve insufficiency. Moderate pulmonary hypertension. Moderate aortic stenosis. Mildly dilated aortic root. The study was technically difficult. Ordering Physician: Lor Lazaro Referring Physician: MD Kip Pedro Luis Performed By: Coby New RCS Physical Exam Narrative alert, oriented x3 and no apparent distress Constitutional Narrative: Patient appears much older than his stated age General Appearance: cooperative, well kempt and well developed Orientation / Consciousness: awake, oriented to person, oriented to place and oriented to time HEENT normocephalic, head/scalp atraumatic and moist oral mucous membranes Eyes PERRL, EOMs intact bilaterally and conjunctivae normal Neck supple, no JVD, thyroid normal and no carotid bruits General: trachea midline Resp normal respiratory effort, no retractions, no use of accessory muscles and clear to auscultation bilaterally Auscultation: Negative for rales, rhonchi or wheezes Cardio regular rate, regular rhythm, no rub and no gallops Cardio Narrative: Patient has a 2/6 systolic murmur noted at the apex, right sternal border, and left sternal border. GI normal to inspection, nondistended, normoactive bowel sounds, soft to palpation, non-tender and non-distended Extremity Extremity Narrative: Lower legs were not examined due to presence of surgical dressing over both legs Skin Skin Narrative: Lower legs were not examined due to the fact they are wrapped with surgical dressing, this was not removed for inspection Neuro oriented x3, CN's II-XII intact bilaterally, moves all extremities, no focal motor deficits and no sensory deficits noted Sensorium / Orientation: awake and alert Speech: speech normal Psych affect normal Assessment & Plan Assessment/Plan (1) Septic shock: PLAN: Plan 1. Septic shock-etiology is infected wounds of the legs and feet, patient will remain on antibiotics per infectious diseases, critical care is also seeing the patient #2 acute kidney injury-patient is being seen by nephrology, he is undergoing dialysis today, hemoglobin is 6.36 #3 hyperkalemia-corrected at this time, patient's potassium today was 4.5 #4 ischemic cardiomyopathy-patient's echocardiogram performed yesterday shows an ejection fraction of 40%, patient will remain on medications when his blood pressure permits. #5 paroxysmal A. fib-patient is on Coumadin as an outpatient, his INR was elevated and Coumadin is being held at this time #6 hypercoagulable state secondary to paroxysmal A. fib-patient is on Coumadin as an outpatient, it is being held due to elevated INR at this time, INR will be monitored, today INR was 5.3, he will receive vitamin K according to nursing #7 type 2 diabetes-blood sugars will be monitored, sliding scale insulin will be administered as needed #8 coronary artery disease-patient will remain on his present medications if his blood pressure is able to tolerate them #9 moderate pulmonary hypertension-complicates care, management, recovery, and prognosis #10 lower leg/foot wounds-podiatry is seeing the patient, conservative care and antibiotics until reevaluated off pressors #11 valvular heart disease with moderate aortic stenosis and moderate mitral valve insufficiency-complicates care, management, recovery, and prognosis #12 chronic systolic congestive heart failure-patient will be dialyzed today and this should help with fluid balance #13 anemia-etiology unclear, patient's hemoglobin today was 7.5, labs will be rechecked tomorrow Charges/Coding Visit Charges Inpatient E&M: 61095 Subs Hosp L2
[2022-03-03 08:10] LABS: Bedside Glucose 105 mg/dL (74-106)
--- NOTE | 2022-03-03 09:16 | PN.RENAL_ITS ---
Subjective Subjective Following for DAVIS. The patient tolerated the first dialysis treatment well. The patient is seen during his second dialysis treatment today. He denies current chest pain, shortness of breath, or nausea. Objective Data Objective Data Vital Signs: Vital Signs Temp Pulse Resp BP Pulse Ox O2 Del Method O2 Flow Rate 97.7 F L 88 15 101/54 L 92 Room Air 2 03/03/22 07:00 03/03/22 07:38 03/03/22 07:00 03/03/22 07:00 03/03/22 08:50 03/03/22 08:50 03/03/22 03:00 Oxygen Flow Rate (L/min) 2 Oxygen Delivery Method Room Air Weight: 78.7 kg Body Mass Index (BMI) 26.0 Intake & Output: Intake and Output for Last 24 Hours 03/01/22 03/02/22 03/03/22 23:59 23:59 23:59 Intake Total 1580.69 / 1585.39 2899.56 / 2908.96 1206.2 / 1206.2 Output Total 50 / 50 255 / 355 170 / 170 Balance 1530.69 / 1535.39 2644.56 / 2553.96 1036.2 / 1036.2 Lab / Micro Data Result Diagrams: 03/03/22 03:25 03/03/22 03:25 Labs: Laboratory Results - last 24 hr 03/02/22 09:23: POC Glucose 280 H 03/02/22 11:27: POC Glucose 321 H 03/02/22 16:10: Hep Bs Antibody Reactive 03/02/22 16:10: Hep Bs Antigen Non-Reactive 03/02/22 17:02: POC Glucose 100 03/02/22 21:14: POC Glucose 97 03/03/22 03:25: WBC 9.7, RBC 2.53 L, Hgb 7.5 L, Hct 22.9 L, MCV 90.5, MCH 29.6, MCHC 32.8, RDW Std Deviation 51.6 H, RDW Coeff of [place] 15.8 H, Plt Count 88 L, MPV 9.7, Immature Gran % (Auto) 0.600, Neut % (Auto) 90.2 H, Lymph % (Auto) 2.7 L, [place] % (Auto) 6.0, Eos % (Auto) 0.4, Baso % (Auto) 0.1, Absolute Neuts (auto) 8.7 H, Absolute Lymphs (auto) 0.26 L, Nucleated RBC % 0, Differential Comment SCANNED 03/03/22 03:25: Sodium 134 L, Potassium 4.5, Chloride 98, Carbon Dioxide 25.0, Anion Gap 11, BUN 87 H, Creatinine 6.36 H, Estim Creat Clear Calc 9.24, Est GFR (MDRD) Af Amer 11 L, Est GFR (MDRD) Non-Af 9 L, BUN/Creatinine Ratio 13.7, Glucose 97, Calcium 7.2 L 03/03/22 06:00: Random Vancomycin 15.4 H 03/03/22 06:00: Blood Type B NEGATIVE, Antibody Screen NEGATIVE 03/03/22 06:00: PT 48.7 H, INR 5.3 H* 03/03/22 07:47: POC Glucose 105 Micro: Microbiology 03/02/22 18:20 Stool C. difficile DNA Amplification - Final 03/01/22 21:30 Mucosa - Nasopharyngeal Respiratory Panel (PCR) - Final 03/01/22 22:00 Urine Catheter - Catheter Legionella Antigen - Final 03/01/22 22:00 Urine Catheter - Catheter Streptococcus pneumoniae Antigen (M - Final Radiography Diagnostic Testing: Radiology Impression Echocardiogram 03/01/22 20:05 Interpretation Summary Mild to moderate global left ventricular systolic dysfunction. The left ventricular ejection fraction is 40 %. Stage 3 diastolic dysfunction. The left atrium is severely enlarged. The right atrium is moderately enlarged. Moderate (2+) mitral valve insufficiency. Mild tricuspid valve insufficiency. Moderate pulmonary hypertension. Moderate aortic stenosis. Mildly dilated aortic root. The study was technically difficult. Ordering Physician: Lor Lazaro Referring Physician: MD Kip Pedro Luis Performed By: Coby New RCS Physical Exam Narrative General: Alert and oriented x3, NAD. HEENT: Normocephalic, atraumatic. Mucous membrane dry without erythema. PERRLA, EOMI. Hearing is intact. Neck: Supple, no JVD. Heart: Normal S1 and S2. No rubs or murmurs. Lungs: Clear to auscultation anteriorly. Abdomen: Normal bowel sound, soft, nontender, no guarding or rebound. Extremities: Both lower extremities are wrapped in gauze which I did not take down. There is some evidence of edema above the dressing. Neurologic: No focal neurologic deficits. Assessment & Plan Assessment/Plan (1) DAVIS (acute kidney injury): PLAN: The patient also likely has underlying chronic kidney disease with serum creatinine of around 1.2 to 1.5 mg/dL at baseline (serum creatinine was 1.46 mg/dL on 01/23/2022). I suspect that the patient has diabetic kidney disease or nephrosclerosis from hypertension/PAD. DAVIS is due to severe prerenal azotemia due to circulatory shock made worse by concurrent use of diuretic and ARB prior to admission. Prerenal DAVIS has likely progressed to ischemic ATN. Renal ultrasound did not show any evidence of obstructive nephropathy. I have low suspicion for other causes of DAVIS such as infection related glomerulopathy at this point since there was no significant hematuria or proteinuria on urinalysis. Unfortunately, renal function has not improved with volume expansion on 03/01/2022-05/2021. Serum creatinine was 9.76 mg/dL on Serum creatinine remains high at 9.52 mg/dL on 03/02/2022 at 6 AM. Moreover, the patient remains hyperkalemic with potassium of 6.3 mmol/L. The patient was also oliguric and requiring IV vasopressor on 03/02/2022. For, he was started on hemodialysis for hyperkalemia and anticipated worsening of renal function. Patient tolerated the first hemodialysis well. The patient is seen during his second hemodialysis treatment: 3.5-hour treatment time, F160 dialyzer used, blood flow 350 mL/min. No ultrafiltration. We will hold dialysis tomorrow to monitor for any renal recovery. (2) Acute hyperkalemia: PLAN: Hyperkalemia secondary to DAVIS, acidosis, ARB, spironolactone, and potassium supplementation. Potassium level was 6.7 mmol/L on presentation. Despite resolution of acidosis, potassium remained high at 6.3 mmol/L the morning of 03/02/2022. The patient was started on hemodialysis on 03/02/2022 because of refractory hyperkalemia. Potassium level is better today. He will undergo the second dialysis session today. Agree with holding ARB, spironolactone, and potassium supplementation for now. (3) Metabolic acidosis: PLAN: Resolved. Serum bicarbonate level was 16 mmol/L on presentation. Metabolic acidosis was likely due to DAVIS along with diarrhea prior to presentation. The patient also has respiratory alkalosis and mild metabolic alkalosis based on VBG and metabolic panel on 03/01/2022. Alkalosis has resolved with previous bicarbonate drip and dialysis. We will continue to monitor serum bicarbonate level. (4) Shock circulatory: PLAN: The patient presented with hypotension which we suspect is from sepsis in addition to volume depletion. The patient likely has infection of the lower extremity. Patient is on antimicrobials as per infectious disease service. Despite history of heart failure with reduced ejection fraction,I still think that there is some room to give this patient fluid carefully. Chest x-ray on presentation did not appear to be wet. He remains on vasopressor but at lower dose. I suspect that he is still volume down, I would recommend continuing to volume expand the patient with crystalloid today. If his appetite and intake improves, we can probably stop IV fluid tomorrow. We will discuss volume management with hospitalist and fiscal services manager. (5) Ischemic cardiomyopathy: PLAN: The patient has a history of CAD status post CABG and PCI to the graft to right coronary artery. He also has a history of heart failure with reduced ejection fraction with EF of 35%. However, as discussed above, I suspect his dyspnea was more likely due to metabolic acidosis rather than heart failure at this point. Dyspnea has improved overnight with improvement in serum bicarbonate. We should continue volume expand the patient as we are doing with careful monitoring his volume status.
--- NOTE | 2022-03-03 10:42 | PHA.PHARE_ITS ---
Consult Pharmacy has been consulted to manage selected antiobiotic: Vancomycin Type of Consult: Follow-up Labs: Sodium 134 mmol/L (136-145) L 03/03/22 03:25 Potassium 4.5 mmol/L (3.5-5.1) 03/03/22 03:25 Chloride 98 mmol/L (98-107) 03/03/22 03:25 Carbon Dioxide 25.0 mmol/L (21.0-32.0) 03/03/22 03:25 Anion Gap 11 (5-15) 03/03/22 03:25 BUN 87 mg/dL (7-18) H 03/03/22 03:25 Creatinine 6.36 mg/dL (0.70-1.30) H 03/03/22 03:25 Est GFR (MDRD) Af Amer 11 mL/min (>60) L 03/03/22 03:25 Est GFR (MDRD) Non-Af 9 mL/min (>60) L 03/03/22 03:25 BUN/Creatinine Ratio 13.7 RATIO (10-20) 03/03/22 03:25 Glucose 97 mg/dL (74-106) 03/03/22 03:25 Random Vancomycin 15.4 ug/mL (0.0-15.0) H 03/03/22 06:00 Microbiology: Microbiology 03/02/22 18:20 Stool C. difficile DNA Amplification - Final 03/01/22 21:30 Mucosa - Nasopharyngeal Respiratory Panel (PCR) - Final 03/01/22 22:00 Urine Catheter - Catheter Legionella Antigen - Final 03/01/22 22:00 Urine Catheter - Catheter Streptococcus pneumoniae Antigen (M - Final Goal Trough: 15-20 mcg/mL Pharmacy Plan for Drug Dosing: VANCOMYCIN LEVEL RECEIVED Current Vancomycin Dose: 1000MG X1 03/02 @ 1705 Number of Doses Received: 2 Vancomycin Level: 15.4 MG/DL Hours Since Last Dose: 13 Renal Function: SCR 6.36 - PT ON HD. WILL GET HD TODAY Renal Function Trend: HD Lab/Micro: BLOOD CX PENDING Vancomycin Plan/Comments: PRE-HD LEVEL WAS WITHIN THERAPEUTIC RANGE. WILL GIVE 500MG X1 AFTER HD TODAY. PER SOURCING ANALYST NOTE, PT WILL NOT GET HD TOMORROW TO ASSESS FOR RENAL RECOVERY. WILL SCHEDULE PRE-HD RANDOM LEVEL FOR SATURDAY IN CASE OF HD. Pending Level: 03/05/22 @ 0600 - RANDOM Pharmacy Service will continue to monitor and adjust dosing as required.
--- NOTE | 2022-03-03 11:13 | PCM.PROGNOTE ---
Subjective Subjective No changes overnight. Patient AOx3. Denies constitutional's. Objective Data Objective Data Vital Signs: Vital Signs Temp Pulse Resp BP Pulse Ox O2 Del Method O2 Flow Rate 97.6 F L 105 H 24 H 97/55 L 97 Room Air 2 03/03/22 10:00 03/03/22 10:00 03/03/22 10:00 03/03/22 10:00 03/03/22 10:00 03/03/22 10:00 03/03/22 03:00 Oxygen Flow Rate (L/min) 2 Oxygen Delivery Method Room Air Weight: 78.7 kg Body Mass Index (BMI) 26.0 Intake & Output: Intake and Output for Last 24 Hours 03/01/22 03/02/22 03/03/22 23:59 23:59 23:59 Intake Total 1580.69 / 1585.39 2899.56 / 2908.96 1237.06 / 1237.06 Output Total 50 / 50 255 / 355 170 / 170 Balance 1530.69 / 1535.39 2644.56 / 2553.96 1067.06 / 1067.06 Lab / Micro Data Result Diagrams: 03/03/22 03:25 03/03/22 03:25 Labs: Laboratory Results - last 24 hr 03/02/22 11:27: POC Glucose 321 H 03/02/22 16:10: Hep Bs Antibody Reactive 03/02/22 16:10: Hep Bs Antigen Non-Reactive 03/02/22 17:02: POC Glucose 100 03/02/22 21:14: POC Glucose 97 03/03/22 03:25: WBC 9.7, RBC 2.53 L, Hgb 7.5 L, Hct 22.9 L, MCV 90.5, MCH 29.6, MCHC 32.8, RDW Std Deviation 51.6 H, RDW Coeff of Nguyen 15.8 H, Plt Count 88 L, MPV 9.7, Immature Gran % (Auto) 0.600, Neut % (Auto) 90.2 H, Lymph % (Auto) 2.7 L, [place] % (Auto) 6.0, Eos % (Auto) 0.4, Baso % (Auto) 0.1, Absolute Neuts (auto) 8.7 H, Absolute Lymphs (auto) 0.26 L, Nucleated RBC % 0, Differential Comment SCANNED 03/03/22 03:25: Sodium 134 L, Potassium 4.5, Chloride 98, Carbon Dioxide 25.0, Anion Gap 11, BUN 87 H, Creatinine 6.36 H, Estim Creat Clear Calc 9.24, Est GFR (MDRD) Af Amer 11 L, Est GFR (MDRD) Non-Af 9 L, BUN/Creatinine Ratio 13.7, Glucose 97, Calcium 7.2 L 03/03/22 06:00: Random Vancomycin 15.4 H 03/03/22 06:00: Blood Type B NEGATIVE, Antibody Screen NEGATIVE 03/03/22 06:00: PT 48.7 H, INR 5.3 H* 03/03/22 07:47: POC Glucose 105 Micro: Microbiology 03/02/22 18:20 Stool C. difficile DNA Amplification - Final 03/01/22 21:30 Mucosa - Nasopharyngeal Respiratory Panel (PCR) - Final 03/01/22 22:00 Urine Catheter - Catheter Legionella Antigen - Final 03/01/22 22:00 Urine Catheter - Catheter Streptococcus pneumoniae Antigen (M - Final Physical Exam Narrative Diminished dorsalis pedis/posterior tibial pulses bilaterally. Delayed capillary fill time bilaterally. Light touch/protective sensation absent to bilateral feet. Dressings left intact bilateral lower extremity, no strikethrough or drainage. No gross wound forming deformity, no signs of DVT. 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 Patient has chronic wounds to bilateral lower extremities. These are secondary to arterial disease, patient was scheduled to get arterial studies today these were not performed due to low blood pressure. Will reorder studies while inpatient. But due to worsening of his left great toe with presence of infection I will perform an open amputation to obtain some level of infection source control. Due to patient's poor vascular status he will likely not be able to heal any distal closed amputation at this time and may actually require a more proximal amputation depending on his definitive arterial status and if revascularization is possible. Radiographs reviewed, negative for rajesh osteomyelitis. Id onboard;Patient receiving IV vanc/zosyn. Previous cultures polymicrobial (citrobacter, proteus, serratia, morganella, strep agalactiae, enterococcus faecalis and anaerobic cocci). We will reculture her next dressing change. Will defer any definitive amputation or wound debridement until vascular evaluation. Arterial studies reviewed with patient and family member, patient has significant arterial disease limiting wound healing leading to dry gangrene bilateral feet. Nephrology on board, patient receiving hemodialysis. No improvement in creatinine. We will continue local wound care at this time. Patient should remain NWB to bilateral feet. Patient should offload heels with floating using pillows vs egg crate offloading pads. Patient is high risk for more proximal amputation, this has been discussed with patient in great detail. (2) Peripheral vascular disease, unspecified: (3) Non-pressure chronic ulcer of other part of left foot with fat layer exposed: (4) Diabetic infection of right foot:
[2022-03-03] MEDS: Heparin 10,000 UNITS/10 ML Vial 2800 UNITS IV (11:40)
--- NOTE | 2022-03-03 11:43 | DIALYSIS ---
3 hours HD completed, UF 0ml. Patient toelrated well without hypotension. remains on low dose norepinephrine. cvc WNL. see dialysis record
[2022-03-03] MEDS: Aspirin E.C. 81 MG Tablet PO (11:44)
[2022-03-03] MEDS: CHLORHEXIDINE GLUC 2% CLOTH 1 EACH TOWELETTE TOPICAL (11:45)
[2022-03-03 12:10] LABS: Bedside Glucose 131 mg/dL (74-106)
[2022-03-03 16:50] LABS: Bedside Glucose 176 mg/dL (74-106)
[2022-03-03] MEDS: Insulin Lispro 100 UNIT/ML INSULN.PEN SC ×2 (16:57→21:23)
[2022-03-03] MEDS: Vancomycin IV 500 MG/100 ML BAG 100 MG IV (16:57)
[2022-03-03] MEDS: Atorvastatin Calcium 80 MG Tablet PO (21:20)
[2022-03-03] MEDS: Insulin NPH Human 100 UNITS/ML PEN SC (21:23)
[2022-03-03 21:56] LABS: Bedside Glucose 274 mg/dL (74-106)
[2022-03-04] VITALS (51 sets, daily range): BP systolic 81–125; BP diastolic 43–100; PULSE 81–122; RESP 12–30; TEMP 36.6–37.1; O2SAT 94–100
[2022-03-04] MEDS: 0.9% Normal Saline 1,000 ML 75 ML IV (03:00)
[2022-03-04] MEDS: 0.9% Saline Lock 10 ML Syringe IV ×3 (05:03→21:12)
[2022-03-04 05:13] LABS: Absolute Lymphocyte Count 0.35 X10^3/uL (0.83-4.51); Absolute Neutrophil Count 8.6 X10^3/uL (2.0-7.7); Basophil# 0.02 X10^3/uL; Basophil% 0.2 % (0-1); Eosinophil# 0.12 X10^3/uL; Eosinophils% 1.2 % (0-5); Hematocrit 22.8 % (40-54); Hemoglobin 7.3 g/dL (13.0-16.5); Lymphocyte # 0.35 X10^3/ul (0.83-4.51); Lymphocyte % 3.6 % (19-41); Mean Corpuscular Volume 93.8 fL (80-94); Mean Platelet Vol. 10.5 fl (6.2-12.0); Monocyte# 0.63 X10^3/uL; Monocyte% 6.4 % (0-10); NRBC Flagged by Analyzer 0 % (0-5); Neutrophil # 8.63 X10^3/uL (2.7-7.7); Neutrophil % 88.2 % (47-70); POSITIVE COUNT YES; POSITIVE DIFFERENTIAL YES; Platelet Count 84 K/mm3 (150-450); RBC Distribution Width CV 15.9 % (11.6-14.6); RBC Distribution Width SD 54.7 fl (35.1-43.9); Red Blood Count 2.43 M/mm3 (4.6-6.2); White Blood Count 9.8 K/mm3 (4.4-11.0)
[2022-03-04 05:22] LABS: International Normalized Ratio 1.8; Prothrombin Time (Protime)PT. 20.2 SECONDS (11.7-14.9)
[2022-03-04 05:26] LABS: Differential Indicated SCAN CRITERIA MET
[2022-03-04 05:28] LABS: Anisocytosis 1+; Platelet Estimate MOD DEC (ADEQ)
[2022-03-04 05:29] LABS: Acanthocytes 1+
[2022-03-04 05:33] LABS: Anion Gap 8 (5-15); BUN 54 mg/dL (7-18); BUN/Creat Ratio 12.6 RATIO (10-20); Calcium,Total 7.5 mg/dL (8.5-10.1); Chloride 102 mmol/L (98-107); Creatinine, Serum 4.27 mg/dL (0.70-1.30); EST Glomerular Filtration Rate 14 mL/min (>60); Est Glom Filt Rate - Afr Amer 18 mL/min (>60); Estimated Creatinine Clearance 13.76 ml/min; Glucose 158 mg/dL (74-106); Potassium 3.8 mmol/L (3.5-5.1); Sodium Level 137 mmol/L (136-145)
--- NOTE | 2022-03-04 05:46 | PN.CC_ITS ---
Assessment & Plan Assessment/Plan (1) Septic shock: PLAN: Plan RECOMMENDATIONS: 1. Continue Levophed and titrate to maintain a systolic blood pressure greater than 90 mmHg. 2. Continue antimicrobials per ID recommendations. 3. Ongoing dialysis support per nephrology recommendations. 4. Continue to monitor H&H daily and transfuse if hemoglobin drops below 7 g/dL. 5. Encourage incentive spirometer use while in bed. 6. Surgical intervention per podiatry. IMPRESSIONS: 1. Septic shock The patient presented with sepsis due to infected diabetic foot wounds with acute sepsis related organ dysfunction as evidenced by acute kidney injury and fluid refractory hypotension, necessitating vasopressor support. The patient remains on appropriate antimicrobials. Plan to continue Levophed to maintain a systolic blood pressure greater than 90 mmHg. Defer definitive management of lower extremity diabetic wounds to podiatry, who is currently following. 2. Acute kidney injury Most likely prerenal in etiology in the setting of #1. The patient did receive supplemental IV fluids and remains on vasopressor support to maintain hemodynamic stability. The patient will be continued on dialysis support per nephrology recommendations. 3. Coagulopathy The patient is maintained on Coumadin on an outpatient basis. The patient is coagulopathic in the setting of sepsis. Agree with holding systemic anticoagulation and monitoring INR daily. In light of the patient's worsening anemia and elevated INR, vitamin K was ultimately administered. 4. Anemia Hemoglobin is stable at 7.3 g/dL this morning. PPI therapy twice daily will be continued. Continue to monitor blood counts daily and transfuse if hemoglobin drops below 7 g/dL. Continue to hold systemic anticoagulation. 5. History of ischemic cardiomyopathy/paroxysmal atrial fi brillation/anemia/diabetes mellitus/GERD/RITESH Complicates care, management, recovery and prognosis. Continue to hold Coumadin and antihypertensives. The patient will be maintained on sliding scale insulin coverage. TIME: 31 minutes of critical care time, independent of procedures, was spent addressing the patient's septic shock, acute kidney injury, coagulopathy, anemia, review of all data and collaboration with the care team. Subjective Subjective The patient was seen and examined at the bedside this morning. Events from the last 24 hours have been reviewed. The patient is currently afebrile and maintaining hemodynamic stability on 1 mcg/min of Levophed. The patient nick ated dialysis once again yesterday. He is currently documented to be overall net +8.5 L for the hospitalization. Hemoglobin is down to 7.3 g/dL. INR this morning was noted to be 1.8 after vitamin K was administered yesterday. Objective Data Objective Data The patient's most recent lab work, culture data and imaging studies have all been personally reviewed. Surface echocardiogram demonstrated mild to moderate global LV systolic dysfunction with an ejection fraction of 40% and stage III diastolic dysfunction. The left atrium was severely enlarged. Pulmonary artery systolic pressure was estimated to be 50 mmHg. Blood cultures are pending. Vital Signs: Vital Signs Temp Pulse Resp BP Pulse Ox O2 Del Method O2 Flow Rate 98.1 F 96 22 H 103/59 L 100 Nasal Cannula 2 03/04/22 05:00 03/04/22 05:45 03/04/22 05:00 03/04/22 05:45 03/04/22 05:00 03/04/22 05:00 03/04/22 05:00 Oxygen Flow Rate (L/min) 2 Oxygen Delivery Method Nasal Cannula Weight: 178 lb 9.191 oz Body Mass Index (BMI) 26.0 Intake & Output: Intake and Output for Last 24 Hours 03/02/22 03/03/22 03/04/22 23:59 23:59 23:59 Intake Total 2899.56 / 2908.96 3499.35 / 3508.75 1324.09 / 1324.09 Output Total 255 / 355 415 / 415 30 / 30 Balance 2644.56 / 2553.96 3084.35 / 3093.75 1294.09 / 1294.09 Lab / Micro Data Attestation: I reviewed the patient's lab results. Result Diagrams: 03/04/22 05:00 03/04/22 05:00 Labs: Laboratory Results - last 24 hr 03/03/22 06:00: Random Vancomycin 15.4 H 03/03/22 06:00: Blood Type B NEGATIVE, Antibody Screen NEGATIVE 03/03/22 06:00: PT 48.7 H, INR 5.3 H* 03/03/22 07:47: POC Glucose 105 03/03/22 11:53: POC Glucose 131 H 03/03/22 16:28: POC Glucose 176 H 03/03/22 21:21: POC Glucose 274 H 03/04/22 05:00: WBC 9.8, RBC 2.43 L, Hgb 7.3 L, Hct 22.8 L, MCV 93.8, MCH 30.0, MCHC 32.0, RDW Std Deviation 54.7 H, RDW Coeff of Nguyen 15.9 H, Plt Count 84 L, MPV 10.5, Immature Gran % (Auto) 0.400, Neut % (Auto) 88.2 H, Lymph % (Auto) 3.6 L, [place] % (Auto) 6.4, Eos % (Auto) 1.2, Baso % (Auto) 0.2, Absolute Neuts (auto) 8.6 H, Absolute Lymphs (auto) 0.35 L, Nucleated RBC % 0, Platelet Estimate MOD DEC, Anisocytosis 1+, Acanthocytes (Spur) 1+ 03/04/22 05:00: PT 20.2 H, INR 1.8 03/04/22 05:00: Sodium 137, Potassium 3.8, Chloride 102, Carbon Dioxide 27.0, Anion Gap 8, BUN 54 H, Creatinine 4.27 H, Estim Creat Clear Calc 13.76, Est GFR (MDRD) Af Amer 18 L, Est GFR (MDRD) Non-Af 14 L, BUN/Creatinine Ratio 12.6, Glucose 158 H, Calcium 7.5 L Micro: Microbiology 03/02/22 18:20 Stool C. difficile DNA Amplification - Final 03/01/22 21:30 Mucosa - Nasopharyngeal Respiratory Panel (PCR) - Final 03/01/22 22:00 Urine Catheter - Catheter Legionella Antigen - Final 03/01/22 22:00 Urine Catheter - Catheter Streptococcus pneumoniae Antigen (M - Final Radiography Diagnostic Testing: Radiology Impression Echocardiogram 03/01/22 20:05 Interpretation Summary Mild to moderate global left ventricular systolic dysfunction. The left ventricular ejection fraction is 40 %. Stage 3 diastolic dysfunction. The left atrium is severely enlarged. The right atrium is moderately enlarged. Moderate (2+) mitral valve insufficiency. Mild tricuspid valve insufficiency. Moderate pulmonary hypertension. Moderate aortic stenosis. Mildly dilated aortic root. The study was technically difficult. Ordering Physician: Lor Lazaro Referring Physician: MD Kip Pedro Luis Performed By: Coby New RCS Physical Exam Const alert and no apparent distress General Appearance: cooperative HEENT normocephalic and head/scalp atraumatic Eyes PERRL, EOMs intact bilaterally and conjunctivae normal Neck supple General: trachea midline and CVC in place Chest inspection of chest normal Resp normal respiratory effort Auscultation: diminished lung sounds; Negative for rales, rhonchi or wheezes Cardio regular rate and regular rhythm Heart Sounds: murmur GI normal to inspection, nondistended, normoactive bowel sounds Extremity General Extremity: edema bilateral lower extremity Skin Skin Narrative: Lower extremities are currently wrapped. Neuro CN's II-XII intact bilaterally, moves all extremities and no focal motor deficits Psych cooperative and affect normal Charges/Coding Procedures Hospitalists Procedures: 96113 Critial Care 1st Hr
[2022-03-04] MEDS: TITRATION PARAMETER CHANGE 1 EACH IV (06:53)
[2022-03-04] MEDS: Insulin Lispro 100 UNIT/ML INSULN.PEN SC ×4 (07:53→21:13)
[2022-03-04] MEDS: Insulin NPH Human 100 UNITS/ML PEN 12 UNITS SC (07:53)
[2022-03-04 08:15] LABS: Bedside Glucose 160 mg/dL (74-106)
[2022-03-04] MEDS: Aspirin E.C. 81 MG Tablet PO (09:24)
--- NOTE | 2022-03-04 10:06 | PN_ITS ---
Subjective Subjective This morning. Denies constitutional's. Patient off levophed. Objective Data Objective Data Vital Signs: Vital Signs Temp Pulse Resp BP Pulse Ox O2 Del Method O2 Flow Rate 97.9 F 122 H 25 H 103/66 98 Nasal Cannula 2 03/04/22 09:00 03/04/22 09:00 03/04/22 09:00 03/04/22 09:00 03/04/22 09:00 03/04/22 09:00 03/04/22 09:00 FiO2 2 03/04/22 08:00 Oxygen Flow Rate (L/min) 2 Oxygen Delivery Method Nasal Cannula Weight: 81 kg Body Mass Index (BMI) 26.0 Intake & Output: Intake and Output for Last 24 Hours 03/02/22 03/03/22 03/04/22 23:59 23:59 23:59 Intake Total 2899.56 / 2908.96 3499.35 / 3508.75 1437.44 / 1437.44 Output Total 255 / 355 415 / 415 30 / 30 Balance 2644.56 / 2553.96 3084.35 / 3093.75 1407.44 / 1407.44 Lab / Micro Data Result Diagrams: 03/04/22 05:00 03/04/22 05:00 Labs: Laboratory Results - last 24 hr 03/03/22 11:53: POC Glucose 131 H 03/03/22 16:28: POC Glucose 176 H 03/03/22 21:21: POC Glucose 274 H 03/04/22 05:00: WBC 9.8, RBC 2.43 L, Hgb 7.3 L, Hct 22.8 L, MCV 93.8, MCH 30.0, MCHC 32.0, RDW Std Deviation 54.7 H, RDW Coeff of Nguyen 15.9 H, Plt Count 84 L, MPV 10.5, Immature Gran % (Auto) 0.400, Neut % (Auto) 88.2 H, Lymph % (Auto) 3.6 L, [place] % (Auto) 6.4, Eos % (Auto) 1.2, Baso % (Auto) 0.2, Absolute Neuts (auto) 8.6 H, Absolute Lymphs (auto) 0.35 L, Nucleated RBC % 0, Platelet Estimate MOD DEC, Anisocytosis 1+, Acanthocytes (Spur) 1+ 03/04/22 05:00: PT 20.2 H, INR 1.8 03/04/22 05:00: Sodium 137, Potassium 3.8, Chloride 102, Carbon Dioxide 27.0, Anion Gap 8, BUN 54 H, Creatinine 4.27 H, Estim Creat Clear Calc 13.76, Est GFR (MDRD) Af Amer 18 L, Est GFR (MDRD) Non-Af 14 L, BUN/Creatinine Ratio 12.6, Glucose 158 H, Calcium 7.5 L 03/04/22 07:51: POC Glucose 160 H Micro: Microbiology 03/04/22 09:40 Stool Stool Occult Blood (CANDIDA) - Final Occult Blood Positive 03/02/22 18:20 Stool C. difficile DNA Amplification - Final 03/01/22 21:30 Mucosa - Nasopharyngeal Respiratory Panel (PCR) - Final 03/01/22 22:00 Urine Catheter - Catheter Legionella Antigen - Final 03/01/22 22:00 Urine Catheter - Catheter Streptococcus pneumoniae Antigen (M - Final Physical Exam Narrative Extremity. Significant improvement to bilateral lower extremity edema with significant improvement to serous drainage to the leg ulcerations his wounds appear to be significantly more stable at this time. The left hallux appears to have demarcated and appears dry and stable and no longer demonstrate a wet infected appearance. There is resolved erythema to the left forefoot region. The dorsal right second digit dorsal lateral foot and plantar fifth metatarsal head as well as plantar heels bilaterally noted these appear to be stable with out gross signs of infection. 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 Today than previous evaluation. Wet gangrenous appearance on initial evaluation appears to be completely dry and demarcated today. Edema to bilateral lower extremity with improved drainage to the ulcerations. Demonstrate diminished blood flow with ABIs of .43/.31 to the DP and PT on the right and .61/.47 to the DP on the left. These pulses are monophasic at the level of the foot. Vascular is on consult, awaiting evaluation. Pending any potential revascularization we will consider possible isolated right second digit amputation with left-sided transmetatarsal amputation. The situation is all dependent on if revascularization is possible; however, more proximal amputation may be required depending on vascular findings. We will delay any surgical intervention until patient stabilized and vascular is evaluated patient. We will continue to follow closely. Dressings were changed today, tonight to leg wounds Betadine paint to foot wounds dry sterile dressing no compression patient will keep legs elevated and heels offloaded. Discussed with physical therapy to make remain nonweightbearing to bilateral lower extremity due to plantar foot wounds. We will follow-up with patient tomorrow. (2) Peripheral vascular disease, unspecified: (3) Non-pressure chronic ulcer of other part of left foot with fat layer exposed: (4) Diabetic infection of right foot:
--- NOTE | 2022-03-04 10:47 | PN.RENAL_ITS ---
Subjective Subjective Following for acute kidney injury. The patient tolerated dialysis well yesterday. He denies current chest pain, shortness of breath, or nausea. Objective Data Objective Data Vital Signs: Vital Signs Temp Pulse Resp BP Pulse Ox O2 Del Method O2 Flow Rate 97.8 F 109 H 22 H 94/54 L 97 Nasal Cannula 2 03/04/22 10:00 03/04/22 10:00 03/04/22 10:00 03/04/22 10:00 03/04/22 10:00 03/04/22 10:00 03/04/22 10:32 FiO2 2 03/04/22 10:00 Oxygen Flow Rate (L/min) 2 Oxygen Delivery Method Nasal Cannula Weight: 81 kg Body Mass Index (BMI) 26.0 Intake & Output: Intake and Output for Last 24 Hours 03/02/22 03/03/22 03/04/22 23:59 23:59 23:59 Intake Total 2899.56 / 2908.96 3499.35 / 3508.75 1437.44 / 1437.44 Output Total 255 / 355 415 / 415 30 / 30 Balance 2644.56 / 2553.96 3084.35 / 3093.75 1407.44 / 1407.44 Lab / Micro Data Result Diagrams: 03/04/22 05:00 03/04/22 05:00 Labs: Laboratory Results - last 24 hr 03/03/22 11:53: POC Glucose 131 H 03/03/22 16:28: POC Glucose 176 H 03/03/22 21:21: POC Glucose 274 H 03/04/22 05:00: WBC 9.8, RBC 2.43 L, Hgb 7.3 L, Hct 22.8 L, MCV 93.8, MCH 30.0, MCHC 32.0, RDW Std Deviation 54.7 H, RDW Coeff of Nguyen 15.9 H, Plt Count 84 L, MPV 10.5, Immature Gran % (Auto) 0.400, Neut % (Auto) 88.2 H, Lymph % (Auto) 3.6 L, [place] % (Auto) 6.4, Eos % (Auto) 1.2, Baso % (Auto) 0.2, Absolute Neuts (auto) 8.6 H, Absolute Lymphs (auto) 0.35 L, Nucleated RBC % 0, Platelet Estimate MOD DEC, Anisocytosis 1+, Acanthocytes (Spur) 1+ 03/04/22 05:00: PT 20.2 H, INR 1.8 03/04/22 05:00: Sodium 137, Potassium 3.8, Chloride 102, Carbon Dioxide 27.0, Anion Gap 8, BUN 54 H, Creatinine 4.27 H, Estim Creat Clear Calc 13.76, Est GFR (MDRD) Af Amer 18 L, Est GFR (MDRD) Non-Af 14 L, BUN/Creatinine Ratio 12.6, Glu cose 158 H, Calcium 7.5 L 03/04/22 07:51: POC Glucose 160 H Micro: Microbiology 03/04/22 09:40 Stool Stool Occult Blood (CANDIDA) - Final Occult Blood Positive 03/02/22 18:20 Stool C. difficile DNA Amplification - Final 03/01/22 21:30 Mucosa - Nasopharyngeal Respiratory Panel (PCR) - Final 03/01/22 22:00 Urine Catheter - Catheter Legionella Antigen - Final 03/01/22 22:00 Urine Catheter - Catheter Streptococcus pneumoniae Antigen (M - Final Physical Exam Narrative General: Alert and oriented x3, NAD. HEENT: Normocephalic, atraumatic. Mucous membrane dry without erythema. PERRLA, EOMI. Hearing is intact. Neck: Supple, no JVD. Heart: Normal S1 and S2. There is a 2/6 systolic murmur. Lungs: Clear to auscultation anteriorly. Abdomen: Normal bowel sound, soft, nontender, no guarding or rebound. Extremities: Both lower extremities are wrapped in gauze which I did not take down. There is some evidence of edema above the dressing. Some oozing from the right femoral dialysis catheter exit site which improved compared to yesterday. Neurologic: No focal neurologic deficits. Assessment & Plan Assessment/Plan (1) DAVIS (acute kidney injury): PLAN: The patient also likely has underlying chronic kidney disease with serum creatinine of around 1.2 to 1.5 mg/dL at baseline (serum creatinine was 1.46 mg/dL on 01/23/2022). I suspect that the patient has diabetic kidney disease or nephrosclerosis from hypertension/PAD. DAVIS is due to severe prerenal azotemia due to circulatory shock made worse by concurrent use of diuretic and ARB prior to admission. Prerenal DAVIS has likely progressed to ischemic ATN. Renal ultrasound did not show any evidence of obstructive nephropathy. I have low suspicion for other causes of DAVIS such as infection related glomerulopathy at this point since there was no significant hematuria or proteinuria on urinalysis. Unfortunately, renal function did not improved with volume expansion on 03/01/2022-05/2021. Serum creatinine was 9.76 mg/dL on 03/01/2022. Serum creatinine remains high at 9.52 mg/dL on 03/02/2022 at 6 AM. Moreover, the patient remains hyperkalemic with potassium of 6.3 mmol/L. The patient was also oliguric and was requiring IV vasopressor on 03/02/2022. Therefore, he was started on hemodialysis for hyperkalemia and anticipated worsening of renal function. Patient tolerated the first and second hemodialysis well. Plan today is to hold dialysis since hyperkalemia, acidosis and azotemia have improved. Reassess for dialysis need again tomorrow although anticipate that he will still need dialysis given marginal urine output today. (2) Acute hyperkalemia: PLAN: Resolved. Hyperkalemia was secondary to DAVIS, acidosis, ARB, spironolactone, and potassium supplementation. Potassium level was 6.7 mmol/L on presentation. Despite improvement of acidosis with bicarbonate drip, potassium remained high at 6.3 mmol/L the morning of 03/02/2022. Therefore, the patient was started on hemodialysis on 03/02/2022 because of refractory hyperkalemia. Potassium level is stable today. Recheck potassium level tomorrow. Agree with continuing to hold ARB, spironolactone, and potassium supplementation for now. (3) Metabolic acidosis: PLAN: Resolved. Serum bicarbonate level was 16 mmol/L on presentation. Metabolic acidosis was likely due to DAVIS along with diarrhea prior to presentation. The patient also has respiratory alkalosis and mild metabolic alkalosis based on VBG and metabolic panel on 03/01/2022. Alkalosis has resolved with previous bicarbonate drip and dialysis. We will continue to monitor serum bicarbonate level. (4) Shock circulatory: PLAN: Improving. Vasopressor was able to be discontinued earlier this morning. The patient presented with hypotension which I suspect is from sepsis in addition to volume depletion. The patient likely has infection of the lower extremity. He is on empiric antimicrobial as per ID service. Culture data are pending. The patient tells me that his intake has been reasonable. Since BP has improved, I will stop maintenance IV fluid. Continue to encourage patient to push oral intake. We can bolus with IV fluid if MAP is consistently below 65 mmHg. We will discuss volume management with hospitalist and student support advisor. (5) Ischemic cardiomyopathy: PLAN: The patient has a history of CAD status post CABG and PCI to the graft to right coronary artery. He also has a history of heart failure with reduced ejection fraction with EF of 35%. The patient still appears to be compensated from heart failure standpoint. Nevertheless, since his hemodynamics has improved and he is taking p.o. reasonably well, I will stop maintenance IV fluid.
[2022-03-04 11:30] LABS: Bedside Glucose 172 mg/dL (74-106)
[2022-03-04] MEDS: Menthol/Lanolin/Calamine/Znox 113 GM Tube 1 APPLIC TOPICAL ×2 (14:17→21:12)
--- NOTE | 2022-03-04 15:01 | PCM.PN.HOSP ---
Subjective Subjective Patient was seen and examined today, he was off pressors for a time today but had to be placed back on. Patient's hemoglobin today was 7.3, nursing reports that he had blood in his bowel movements. He is on IV Protonix, for now we just observe him for more signs of bleeding. Patient's INR today was 1.8. Objective Data Objective Data Vital Signs: Vital Signs Temp Pulse Resp BP Pulse Ox O2 Del Method O2 Flow Rate 98.1 F 102 H 30 H 98/60 99 Nasal Cannula 2 03/04/22 14:00 03/04/22 14:00 03/04/22 14:00 03/04/22 14:00 03/04/22 14:00 03/04/22 14:00 03/04/22 14:00 FiO2 2 03/04/22 13:00 Oxygen Flow Rate (L/min) 2 Oxygen Delivery Method Nasal Cannula Weight: 81 kg Body Mass Index (BMI) 26.0 Intake & Output: Intake and Output for Last 24 Hours 03/02/22 03/03/22 03/04/22 23:59 23:59 23:59 Intake Total 2899.56 / 2908.96 3499.35 / 3508.75 2527.16 / 2527.16 Output Total 255 / 355 415 / 415 70 / 70 Balance 2644.56 / 2553.96 3084.35 / 3093.75 2457.16 / 2457.16 Lab / Micro Data Result Diagrams: 03/04/22 05:00 03/04/22 05:00 Labs: Laboratory Results - last 24 hr 03/03/22 16:28: POC Glucose 176 H 03/03/22 21:21: POC Glucose 274 H 03/04/22 05:00: WBC 9.8, RBC 2.43 L, Hgb 7.3 L, Hct 22.8 L, MCV 93.8, MCH 30.0, MCHC 32.0, RDW Std Deviation 54.7 H, RDW Coeff of Nguyen 15.9 H, Plt Count 84 L, MPV 10.5, Immature Gran % (Auto) 0.400, Neut % (Auto) 88.2 H, Lymph % (Auto) 3.6 L, [place] % (Auto) 6.4, Eos % (Auto) 1.2, Baso % (Auto) 0.2, Absolute Neuts (auto) 8.6 H, Absolute Lymphs (auto) 0.35 L, Nucleated RBC % 0, Platelet Estimate MOD DEC, Anisocytosis 1+, Acanthocytes (Spur) 1+ 03/04/22 05:00: PT 20.2 H, INR 1.8 03/04/22 05:00: Sodium 137, Potassium 3.8, Chloride 102, Carbon Dioxide 27.0, Anion Gap 8, BUN 54 H, Creatinine 4.27 H, Estim Creat Clear Calc 13.76, Est GFR (MDRD) Af Amer 18 L, Est GFR (MDRD) Non-Af 14 L, BUN/Creatinine Ratio 12.6, Glucose 158 H, Calcium 7.5 L 03/04/22 07:51: POC Glucose 160 H 03/04/22 11:04: POC Glucose 172 H Micro: Microbiology 03/02/22 08:10 Blood Culture (Wb) - Right Forearm Blood Culture - Preliminary No growth in 48 hours. 03/02/22 08:05 Blood Culture (Wb) - Neck Blood Culture - Preliminary No growth in 48 hours. 03/04/22 09:40 Stool Stool Occult Blood (CANDIDA) - Final Occult Blood Positive 03/02/22 18:20 Stool C. difficile DNA Amplification - Final 03/01/22 21:30 Mucosa - Nasopharyngeal Respiratory Panel (PCR) - Final 03/01/22 22:00 Urine Catheter - Catheter Legionella Antigen - Final 03/01/22 22:00 Urine Catheter - Catheter Streptococcus pneumoniae Antigen (M - Final Physical Exam Narrative alert, oriented x3 and no apparent distress Constitutional Narrative: Patient appears much older than his stated age General Appearance: cooperative, well kempt and well developed Orientation / Consciousness: awake, oriented to person, oriented to place and oriented to time HEENT normocephalic, head/scalp atraumatic and moist oral mucous membranes Eyes PERRL, EOMs intact bilaterally and conjunctivae normal Neck supple, no JVD, thyroid normal and no carotid bruits General: trachea midline Resp normal respiratory effort, no retractions, no use of accessory muscles and clear to auscultation bilaterally Auscultation: Negative for rales, rhonchi or wheezes Cardio regular rate, regular rhythm, no rub and no gallops Cardio Narrative: Patient has a 2/6 systolic murmur noted at the apex, right sternal border, and left sternal border. GI normal to inspection, nondistended, normoactive bowel sounds, soft to palpation, non-tender and non-distended Extremity Extremity Narrative: Lower legs were not examined due to presence of surgical dressing over both legs Skin Skin Narrative: Lower legs were not examined due to the fact they are wrapped with surgical dressing, this was not removed for inspection Neuro oriented x3, CN's II-XII intact bilaterally, moves all extremities, no focal motor deficits and no sensory deficits noted Sensorium / Orientation: awake and alert Speech: speech normal Psych affect normal Assessment & Plan Assessment/Plan (1) Septic shock: PLAN: Plan 1. Septic shock-etiology is infected wounds of the legs and feet, patient will remain on antibiotics per infectious diseases, critical care is also seeing the patient #2 acute kidney injury-patient is being seen by nephrology, he is undergoing dialysis today, hemoglobin is 6.36 #3 hyperkalemia-corrected at this time, patient's potassium today was 4.5 #4 ischemic cardiomyopathy-patient's echocardiogram performed yesterday shows an ejection fraction of 40%, patient will remain on medications when his blood pressure permits. #5 paroxysmal A. fib-patient is on Coumadin as an outpatient, his INR was elevated and Coumadin is being held at this time #6 hypercoagulable state secondary to paroxysmal A. fib-patient is on Coumadin as an outpatient, it is being held due to elevated INR at this time, INR will be monitored, today INR was 5.3, he will receive vitamin K according to nursing #7 type 2 diabetes-blood sugars will be monitored, sliding scale insulin will be administered as needed #8 coronary artery disease-patient will remain on his present medications if his blood pressure is able to tolerate them #9 moderate pulmonary hypertension-complicates care, management, recovery, and prognosis #10 lower leg/foot wounds-podiatry is seeing the patient, conservative care and antibiotics until reevaluated off pressors #11 valvular heart disease with moderate aortic stenosis and moderate mitral valve insufficiency-complicates care, management, recovery, and prognosis #12 chronic systolic congestive heart failure-patient will be dialyzed today and this should help with fluid balance #13 anemia-etiology unclear, patient's hemoglobin today was 7.3, I have elected to transfuse 1 unit of packed red blood cells due to the presence of rectal bleeding today. Labs will be rechecked tomorrow #14 rectal bleeding-again, patient has multiple medical problems, we will observe for any more bleeding, he may need a GI work-up. Charges/Coding Visit Charges Inpatient E&M: 97530 Subs Hosp L2
[2022-03-04 16:30] LABS: Bedside Glucose 203 mg/dL (74-106)
[2022-03-04] MEDS: Atorvastatin Calcium 80 MG Tablet PO (21:12)
[2022-03-04] MEDS: Insulin NPH Human 100 UNITS/ML PEN SC (21:13)
[2022-03-04 21:35] LABS: Bedside Glucose 210 mg/dL (74-106)
[2022-03-05] VITALS (34 sets, daily range): BP systolic 76–113; BP diastolic 42–89; PULSE 84–117; RESP 13–31; TEMP 36.7–37; O2SAT 94–100
[2022-03-05 04:16] LABS: Absolute Lymphocyte Count 0.41 X10^3/uL (0.83-4.51); Absolute Neutrophil Count 9.8 X10^3/uL (2.0-7.7); Basophil# 0.01 X10^3/uL; Basophil% 0.1 % (0-1); Differential Indicated SCAN CRITERIA MET; Eosinophil# 0.26 X10^3/uL; Eosinophils% 2.3 % (0-5); Hematocrit 25.7 % (40-54); Hemoglobin 8.2 g/dL (13.0-16.5); Lymphocyte # 0.41 X10^3/ul (0.83-4.51); Lymphocyte % 3.6 % (19-41); Mean Corp Hgb Conc 31.9 g/dL (32-36); Mean Corpuscular Hgb 29.7 pg (27.0-32.0); Mean Corpuscular Volume 93.1 fL (80-94); Monocyte% 6.2 % (0-10); NRBC Flagged by Analyzer 0 % (0-5); Neutrophil # 9.81 X10^3/uL (2.7-7.7); Neutrophil % 87.1 % (47-70); POSITIVE COUNT YES; POSITIVE DIFFERENTIAL YES; Platelet Count 82 K/mm3 (150-450); RBC Distribution Width CV 15.8 % (11.6-14.6); RBC Distribution Width SD 53.7 fl (35.1-43.9); Red Blood Count 2.76 M/mm3 (4.6-6.2); White Blood Count 11.3 K/mm3 (4.4-11.0)
[2022-03-05 04:35] LABS: Albumin, Serum 2.2 g/dL (3.2-5.0); BUN 65 mg/dL (7-18); Calcium,Total 8.3 mg/dL (8.5-10.1); Chloride 101 mmol/L (98-107); Creatinine, Serum 4.99 mg/dL (0.70-1.30); EST Glomerular Filtration Rate 12 mL/min (>60); Est Glom Filt Rate - Afr Amer 15 mL/min (>60); Estimated Creatinine Clearance 11.77 ml/min; Glucose 139 mg/dL (74-106); Phosphorus 5.9 mg/dL (2.5-4.9); Sodium Level 136 mmol/L (136-145)
[2022-03-05 05:04] LABS: Anisocytosis 1+; Platelet Estimate MOD DEC (ADEQ)
[2022-03-05 05:05] LABS: Acanthocytes 1+; Burr Cells 1+; Ovalocyte RARE; Poikilocytosis 1+
[2022-03-05] MEDS: Menthol/Lanolin/Calamine/Znox 113 GM Tube 1 APPLIC TOPICAL ×3 (06:52→21:28)
--- NOTE | 2022-03-05 07:07 | PCM.PN.INT ---
Assessment & Plan Assessment/Plan (1) Septic shock: PLAN: Plan RECOMMENDATIONS: 1. Continue Levophed and titrate to maintain a systolic blood pressure greater than 90 mmHg. 2. Continue antimicrobials per ID recommendations. 3. Ongoing dialysis support per nephrology recommendations. 4. Continue to monitor H&H daily and transfuse if hemoglobin drops below 7 g/dL. 5. Encourage incentive spirometer use while in bed. 6. Surgical intervention timing/plans per podiatry. 7. Discussed with surgery on possible initiation of midodrine IMPRESSIONS: 1. Septic shock The patient presented with sepsis due to infected diabetic foot wounds with acute sepsis related organ dysfunction as evidenced by acute kidney injury and fluid refractory hypotension, necessitating vasopressor support. The patient remains on appropriate antimicrobials. Plan to continue Levophed to maintain a systolic blood pressure greater than 90 mmHg. Defer definitive management of lower extremity diabetic wounds to podiatry, who is currently following. We will need to discuss with vascular surgery/podiatry on whether midodrine would be an option 2. Acute kidney injury Most likely prerenal in etiology in the setting of #1. The patient did receive supplemental IV fluids and remains on vasopressor support to maintain hemodynamic stability. The patient will be continued on dialysis support per nephrology recommendations. No significant improvement in urine output following hemodialysis 3. Coagulopathy The patient is maintained on Coumadin on an outpatient basis. The patient is coagulopathic in the setting of sepsis. Agree with holding systemic anticoagulation and monitoring INR daily. In light of the patient's worsening anemia and elevated INR, vitamin K was ultimately administered. Likely will not repeat anticoagulation until after surgery 4. Anemia Hemoglobin is stable at 7.3 g/dL this morning. PPI therapy twice daily will be continued. Continue to monitor blood counts daily and transfuse if hemoglobin drops below 7 g/dL. Continue to hold systemic anticoagulation. 5. History of ischemic cardiomyopathy/paroxysmal atrial fibrillation/anemia/diabetes mellitus/GERD/RITESH Complicates care, management, recovery and prognosis. Continue to hold Coumadin and antihypertensives. The patient will be maintained on sliding scale insulin coverage. TIME: 33 minutes of critical care time, independent of procedures, was spent addressing the patient's septic shock, acute kidney injury, coagulopathy, anemia, review of all data and collaboration with the care team. Subjective Subjective Patient did okay overnight. No acute issues were reported. Patient did have hemodialysis yesterday with no volume removal. Patient was able to tolerate this well. Did discuss with nephrology and plans are to continue with dialysis today. Patient subjectively feels slightly improved compared to yesterday. Patient has stated that he will not consent to anything more than part of the foot amputation. Objective Data Objective Data Vital Signs: Vital Signs Temp Pulse Resp BP Pulse Ox O2 Del Method O2 Flow Rate 36.7 C 94 20 H 104/59 L 100 Nasal Cannula 2 03/05/22 05:00 03/05/22 05:00 03/05/22 05:00 03/05/22 05:00 03/05/22 05:00 03/05/22 05:00 03/05/22 05:00 FiO2 2 03/04/22 13:00 Oxygen Flow Rate (L/min) 2 Oxygen Delivery Method Nasal Cannula Weight: 82.3 kg Body Mass Index (BMI) 26.0 Intake & Output: Intake and Output for Last 24 Hours 03/03/22 03/04/22 03/05/22 23:59 23:59 23:59 Intake Total 3499.35 / 3508.75 3954.26 / 3956.16 61.4 / 61.4 Output Total 415 / 415 215 / 215 42 / 42 Balance 3084.35 / 3093.75 3739.26 / 3741.16 19.4 / 19.4 Lab / Micro Data Attestation: I reviewed the patient's lab results. Result Diagrams: 03/05/22 04:05 03/05/22 04:05 Labs: Laboratory Results - last 24 hr 03/03/22 06:00: Crossmatch See Detail 03/04/22 07:51: POC Glucose 160 H 03/04/22 11:04: POC Glucose 172 H 03/04/22 16:05: POC Glucose 203 H 03/04/22 21:11: POC Glucose 210 H 03/05/22 04:05: Sodium 136, Potassium 4.0, Chloride 101, Carbon Dioxide 25.0, BUN 65 H, Creatinine 4.99 H, Estim Creat Clear Calc 11.77, Est GFR (MDRD) Af Amer 15 L, Est GFR (MDRD) Non-Af 12 L, BUN/Creatinine Ratio 13.0, Glucose 139 H, Calcium 8.3 L, Phosphorus 5.9 H, Albumin 2.2 L 03/05/22 04:05: WBC 11.3 H, RBC 2.76 L, Hgb 8.2 L, Hct 25.7 L, MCV 93.1, MCH 29.7, MCHC 31.9 L, RDW Std Deviation 53.7 H, RDW Coeff of Nguyen 15.8 H, Plt Count 82 L, MPV 11.0, Immature Gran % (Auto) 0.700, Neut % (Auto) 87.1 H, Lymph % (Auto) 3.6 L, [place] % (Auto) 6.2, Eos % (Auto) 2.3, Baso % (Auto) 0.1, Absolute Neuts (auto) 9.8 H, Absolute Lymphs (auto) 0.41 L, Nucleated RBC % 0, Platelet Estimate MOD DEC, Poikilocytosis 1+, Anisocytosis 1+, Ovalocytes RARE, [place] Cells 1+, Acanthocytes (Spur) 1+ Micro: Microbiology 03/02/22 08:10 Blood Culture (Wb) - Right Forearm Blood Culture - Preliminary No growth in 48 hours. 03/02/22 08:05 Blood Culture (Wb) - Neck Blood Culture - Preliminary No growth in 48 hours. 03/04/22 09:40 Stool Stool Occult Blood (CANDIDA) - Final Occult Blood Positive 03/02/22 18:20 Stool C. difficile DNA Amplification - Final 03/01/22 21:30 Mucosa - Nasopharyngeal Respiratory Panel (PCR) - Final 03/01/22 22:00 Urine Catheter - Catheter Legionella Antigen - Final 03/01/22 22:00 Urine Catheter - Catheter Streptococcus pneumoniae Antigen (M - Final Physical Exam Const alert, oriented x3 and no apparent distress Constitutional Narrative: No conversational dyspnea General Appearance: cooperative HEENT normocephalic and head/scalp atraumatic Eyes PERRL, EOMs intact bilaterally and conjunctivae normal Neck supple General: trachea midline and CVC in place Chest inspection of chest normal Resp normal respiratory effort Auscultation: diminished lung sounds; Negative for rales, rhonchi or wheezes Cardio regular rate and regular rhythm Heart Sounds: murmur GI normal to inspection, nondistended, normoactive bowel sounds Extremity General Extremity: edema bilateral lower extremity Skin Skin Narrative: Lower extremities are currently wrapped. Neuro CN's II-XII intact bilaterally, moves all extremities and no focal motor deficits Psych cooperative and affect normal Charges/Coding Procedures Hospitalists Procedures: [id number] [facility]
[2022-03-05] MEDS: Insulin NPH Human 100 UNITS/ML PEN 12 UNITS SC (07:49)
[2022-03-05] MEDS: 0.9% Saline Lock 10 ML Syringe IV ×2 (07:49→15:36)
[2022-03-05 08:10] LABS: Bedside Glucose 130 mg/dL (74-106)
[2022-03-05 08:20] LABS: Vancomycin, Random Level 14.2 ug/mL (0.0-15.0)
[2022-03-05] MEDS: Aspirin E.C. 81 MG Tablet PO (09:27)
--- NOTE | 2022-03-05 10:04 | PCM.RX.CS ---
Consult Type of Consult: Follow-up Suspected Infection: Skin/Soft tissue - Cellulitis Labs: Sodium 136 mmol/L (136-145) 03/05/22 04:05 Potassium 4.0 mmol/L (3.5-5.1) 03/05/22 04:05 Chloride 101 mmol/L (98-107) 03/05/22 04:05 Carbon Dioxide 25.0 mmol/L (21.0-32.0) 03/05/22 04:05 Anion Gap 8 (5-15) 03/04/22 05:00 BUN 65 mg/dL (7-18) H 03/05/22 04:05 Creatinine 4.99 mg/dL (0.70-1.30) H 03/05/22 04:05 Est GFR (MDRD) Af Amer 15 mL/min (>60) L 03/05/22 04:05 Est GFR (MDRD) Non-Af 12 mL/min (>60) L 03/05/22 04:05 BUN/Creatinine Ratio 13.0 RATIO (10-20) 03/05/22 04:05 Glucose 139 mg/dL (74-106) H 03/05/22 04:05 Random Vancomycin 14.2 ug/mL (0.0-15.0) 03/05/22 07:45 Microbiology: Microbiology 03/02/22 08:10 Blood Culture (Wb) - Right Forearm Blood Culture - Preliminary No growth in 48 hours. 03/02/22 08:05 Blood Culture (Wb) - Neck Blood Culture - Preliminary No growth in 48 hours. 03/04/22 09:40 Stool Stool Occult Blood (CANDIDA) - Final Occult Blood Positive 03/02/22 18:20 Stool C. difficile DNA Amplification - Final 03/01/22 21:30 Mucosa - Nasopharyngeal Respiratory Panel (PCR) - Final 03/01/22 22:00 Urine Catheter - Catheter Legionella Antigen - Final 03/01/22 22:00 Urine Catheter - Catheter Streptococcus pneumoniae Antigen (M - Final Pharmacy Plan for Drug Dosing: VANCOMYCIN LEVEL RECEIVED Current Vancomycin Dose: by trough (HD patient) Number of Doses Received: 1 since last HD session Vancomycin Level: 14.2 Renal Function: sCr 4.99 (HD scheduled for today) Vancomycin Plan/Comments: 750mg x1 dose to be given after HD today and continue to follow for further HD schedule Pharmacy Service will continue to monitor and adjust dosing as required. Labs to be done on [date and time ordered]: pending further HD schedule
--- NOTE | 2022-03-05 10:12 | PN.HOSP_ITS ---
Subjective Subjective Doing well, no issues overnight. Goes on and off of Levophed usually depending on whether or not he is getting dialysis Objective Data Objective Data Vital Signs: Vital Signs Temp Pulse Resp BP Pulse Ox O2 Del Method O2 Flow Rate 98.2 F 108 H 28 H 95/59 L 100 Nasal Cannula 2 03/05/22 10:00 03/05/22 10:00 03/05/22 10:00 03/05/22 10:00 03/05/22 10:00 03/05/22 10:00 03/05/22 10:00 FiO2 2 03/04/22 13:00 Oxygen Flow Rate (L/min) 2 Oxygen Delivery Method Nasal Cannula Weight: 181 lb 7.047 oz Body Mass Index (BMI) 26.0 Intake & Output: Intake and Output for Last 24 Hours 03/04/22 03/05/22 03/06/22 03:59 03:59 03:59 Intake Total 3558.26 / 3559.66 2935.35 / 2937.25 119.5 / 119.5 Output Total 315 / 315 215 / 215 42 / 42 Balance 3243.26 / 3244.66 2720.35 / 2722.25 77.5 / 77.5 Lab / Micro Data Result Diagrams: 03/05/22 04:05 03/05/22 04:05 Labs: Laboratory Results - last 24 hr 03/03/22 06:00: Crossmatch See Detail 03/04/22 11:04: POC Glucose 172 H 03/04/22 16:05: POC Glucose 203 H 03/04/22 21:11: POC Glucose 210 H 03/05/22 04:05: Sodium 136, Potassium 4.0, Chloride 101, Carbon Dioxide 25.0, BUN 65 H, Creatinine 4.99 H, Estim Creat Clear Calc 11.77, Est GFR (MDRD) Af Amer 15 L, Est GFR (MDRD) Non-Af 12 L, BUN/Creatinine Ratio 13.0, Glucose 139 H, Calcium 8.3 L, Phosphorus 5.9 H, Albumin 2.2 L 03/05/22 04:05: WBC 11.3 H, RBC 2.76 L, Hgb 8.2 L, Hct 25.7 L, MCV 93.1, MCH 29.7, MCHC 31.9 L, RDW Std Deviation 53.7 H, RDW Coeff of Nguyen 15.8 H, Plt Count 82 L, MPV 11.0, Immature Gran % (Auto) 0.700, Neut % (Auto) 87.1 H, Lymph % (Auto) 3.6 L, [place] % (Auto) 6.2, Eos % (Auto) 2.3, Baso % (Auto) 0.1, Absolute Neuts (auto) 9.8 H, Absolute Lymphs (auto) 0.41 L, Nucleated RBC % 0, Platelet Estimate MOD DEC, Poikilocytosis 1+, Anisocytosis 1+, Ovalocytes RARE, [place] Cells 1+, Acanthocytes (Spur) 1+ 03/05/22 07:45: Random Vancomycin 14.2 03/05/22 07:47: POC Glucose 130 H Micro: Microbiology 03/02/22 08:10 Blood Culture (Wb) - Right Forearm Blood Culture - Preliminary No growth in 48 hours. 03/02/22 08:05 Blood Culture (Wb) - Neck Blood Culture - Preliminary No growth in 48 hours. 03/04/22 09:40 Stool Stool Occult Blood (CANDIDA) - Final Occult Blood Positive 03/02/22 18:20 Stool C. difficile DNA Amplification - Final 03/01/22 21:30 Mucosa - Nasopharyngeal Respiratory Panel (PCR) - Final 03/01/22 22:00 Urine Catheter - Catheter Legionella Antigen - Final 03/01/22 22:00 Urine Catheter - Catheter Streptococcus pneumoniae Antigen (M - Final Physical Exam Narrative General: Alert, Oriented x3, Cooperative, No apparent distress HEENT: Atraumatic, PERRLA, EOMI, Normocephalic Oral: Moist Mucosa Neck: Supple, No JVD Lungs: Diminished, Normal air movement, No rhonchi, No wheeze, No rales Cardiovascular: Regular rate, Regular Rhythm, Normal S1, Normal S2, o murmurs Abdomen: Soft, Non Tender, Non-Distended, No Hepato-splenomegaly Extremities: Edema, Capillary Refill Less than 3 Seconds Skin: Legs are currently wrapped evidence of skin breakdown Musculoskeletal: No Tenderness to Palpation of Joints or Extremities Neurological: Cranial nerves II-XII grossly intact, Motor Exam 5/5 strength thr oughout, Sensory exam intact to light touch and pain Psych/Mental Status: Normal Affect, Appropriate Assessment & Plan Assessment/Plan (1) Septic shock: PLAN: Plan 1. 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 Appreciate podiatry ? Continue with infectious disease recommendations, vancomycin and Zosyn, wound cultures are polymicrobial ? Continue with ICU care given his need for Levophed ? He is currently on dialysis for his DAVIS he does not normally have dialysis at home. Appreciate nephrology's assistance ? We will monitor his blood sugars and adjust as necessary 2. Paroxysmal A. fib/CAD status post CABG and stent/pulmonary hypertension/m oderate aortic stenosis/chronic systolic CHF ? Currently on Coumadin for his A. fib, will hold while here for possible surgery and debridement ? Can continue with aspirin, Lipitor ? We will hold any blood pressure medication secondary to his hypotension 3. Anemia with Hemoccult positive stools from a rectal bleed ? Continue with PPI and will transfuse as necessary ? We will avoid anticoagulation at this time but will have GI see if we continue to have problems controlling his hemoglobin, does appear that her rectal bleeding has been a chronic problem DVT: SCDs Charges/Coding Visit Charges Inpatient E&M: 43329 Subs Hosp L2
--- NOTE | 2022-03-05 11:02 | PN.RENAL_ITS ---
Subjective Subjective This morning blood pressure is around 95 systolic. Pressor requirements significantly better than before. Not much urine output. Objective Data Objective Data Vital Signs: Vital Signs Temp Pulse Resp BP Pulse Ox O2 Del Method O2 Flow Rate 98.2 F 108 H 28 H 95/59 L 100 Nasal Cannula 2 03/05/22 10:00 03/05/22 10:00 03/05/22 10:00 03/05/22 10:00 03/05/22 10:00 03/05/22 10:00 03/05/22 10:00 FiO2 2 03/04/22 13:00 Oxygen Flow Rate (L/min) 2 Oxygen Delivery Method Nasal Cannula Weight: 82.3 kg Body Mass Index (BMI) 26.0 Intake & Output: Intake and Output for Last 24 Hours 03/03/22 03/04/22 03/05/22 23:59 23:59 23:59 Intake Total 3499.35 / 3508.75 3954.26 / 3956.16 177.1 / 177.1 Output Total 415 / 415 215 / 215 42 / 42 Balance 3084.35 / 3093.75 3739.26 / 3741.16 135.1 / 135.1 Lab / Micro Data Result Diagrams: 03/05/22 04:05 03/05/22 04:05 Labs: Laboratory Results - last 24 hr 03/03/22 06:00: Crossmatch See Detail 03/04/22 11:04: POC Glucose 172 H 03/04/22 16:05: POC Glucose 203 H 03/04/22 21:11: POC Glucose 210 H 03/05/22 04:05: Sodium 136, Potassium 4.0, Chloride 101, Carbon Dioxide 25.0, BUN 65 H, Creatinine 4.99 H, Estim Creat Clear Calc 11.77, Est GFR (MDRD) Af Amer 15 L, Est GFR (MDRD) Non-Af 12 L, BUN/Creatinine Ratio 13.0, Glucose 139 H, Calcium 8.3 L, Phosphorus 5.9 H, Albumin 2.2 L 03/05/22 04:05: WBC 11.3 H, RBC 2.76 L, Hgb 8.2 L, Hct 25.7 L, MCV 93.1, MCH 29.7, MCHC 31.9 L, RDW Std Deviation 53.7 H, RDW Coeff of Nguyen 15.8 H, Plt Count 82 L, MPV 11.0, Immature Gran % (Auto) 0.700, Neut % (Auto) 87.1 H, Lymph % (Auto) 3.6 L, [place] % (Auto) 6.2, Eos % (Auto) 2.3, Baso % (Auto) 0.1, Absolute Neuts (auto) 9.8 H, Absolute Lymphs (auto) 0.41 L, Nucleated RBC % 0, Platelet Estimate MOD DEC, Poikilocytosis 1+, Anisocytosis 1+, Ovalocytes RARE, [place] Cells 1+, Acanthocytes (Spur) 1+ 03/05/22 07:45: Random Vancomycin 14.2 03/05/22 07:47: POC Glucose 130 H Micro: Microbiology 03/02/22 08:10 Blood Culture (Wb) - Right Forearm Blood Culture - Preliminary No growth in 48 hours. 03/02/22 08:05 Blood Culture (Wb) - Neck Blood Culture - Preliminary No growth in 48 hours. 03/04/22 09:40 Stool Stool Occult Blood (CANDIDA) - Final Occult Blood Positive 03/02/22 18:20 Stool C. difficile DNA Amplification - Final 03/01/22 21:30 Mucosa - Nasopharyngeal Respiratory Panel (PCR) - Final 03/01/22 22:00 Urine Catheter - Catheter Legionella Antigen - Final 03/01/22 22:00 Urine Catheter - Catheter Streptococcus pneumoniae Antigen (M - Final Physical Exam Narrative General: Alert and oriented x3, NAD. HEENT: Normocephalic, atraumatic. Mucous membrane dry without erythema. PERRLA, EOMI. Hearing is intact. Neck: Supple, no JVD. Heart: Normal S1 and S2. There is a 2/6 systolic murmur. Lungs: Clear to auscultation anteriorly. Abdomen: Normal bowel sound, soft, nontender, no guarding or rebound. Extremities: No significant edema, right femoral dialysis catheter Neurologic: No focal neurologic deficits. Assessment & Plan Assessment/Plan (1) DAVIS (acute kidney injury): PLAN: The patient also likely has underlying chronic kidney disease with serum creatinine of around 1.2 to 1.5 mg/dL at baseline (serum creatinine was 1.46 mg/dL on 01/23/2022). I suspect that the patient has diabetic kidney disease or nephrosclerosis from hypertension/PAD. DAVIS is due to severe prerenal azotemia due to circulatory shock made worse by concurrent use of diuretic and ARB prior to admission. Prerenal DAVIS has likely progressed to ischemic ATN. Renal ultrasound did not show any evidence of obstructive nephropathy. Remains oliguric, urine analysis due to some protein In September, serum protein electrophoresis, ANCA antibodies are negative C3, C4 pending Plan for dialysis today (2) Acute hyperkalemia: PLAN: Resolved. Hyperkalemia was secondary to DAVIS, acidosis, ARB, spironolactone, and potassium supplementation. Potassium level was 6.7 mmol/L on presentation. . (3) Metabolic acidosis: PLAN: Resolved. Serum bicarbonate level was 16 mmol/L on presentation. Metabolic acidosis was likely due to DAVIS along with diarrhea prior to presentation. (4) Shock circulatory: PLAN: Improving. Off vasopressor (5) Ischemic cardiomyopathy: PLAN: The patient has a history of CAD status post CABG and PCI to the graft to right coronary artery. He also has a history of heart failure with reduced ejection fraction with EF of 35%.
[2022-03-05] MEDS: Insulin Lispro 100 UNIT/ML INSULN.PEN SC ×2 (11:23→15:37)
[2022-03-05 11:40] LABS: Bedside Glucose 223 mg/dL (74-106)
--- NOTE | 2022-03-05 13:31 | PCM.PN.ID ---
Physical Exam Narrative Feeling better, but having some loose stool. No fever. Const alert and no apparent distress General Appearance: cooperative Resp normal air movement and clear to auscultation bilaterally Cardio regular rate and regular rhythm GI soft to palpation, non-tender and non-distended Skin Skin Narrative: BLE less red, wounds are dry ID ID: Route of nutrition/ use of supplements: [] Nutritional Intake: [] IV Site: [] Laura Catheter: [] Assessment & Plan Assessment/Plan (1) Septic shock: PLAN: Due to BLE infected ulcers and gangrene. Recent wound cx with citro, proteus, morganella, serratia, GBS, enterococcus, and anaerobes. Had been on po doxy/cipro, but those are unreliable for GBS, enterococcus, and anaerobes. Podiatry following, amputation planned. Cont empiric vanc/zosyn, adjusted zosyn to q12h based on GFR. Cdiff neg. Will follow, d/w nursing (2) DAVIS (acute kidney injury): (3) Diabetic infection of right foot:
--- NOTE | 2022-03-05 14:17 | WOUNDNOTE ---
wound photo: left foot
--- NOTE | 2022-03-05 14:18 | WOUNDNOTE ---
wound photo: left lower leg
--- NOTE | 2022-03-05 14:21 | WOUNDNOTE ---
wound photo: left foot
--- NOTE | 2022-03-05 14:21 | WOUNDNOTE ---
wound photo: left lower leg
--- NOTE | 2022-03-05 14:22 | WOUNDNOTE ---
wound photo: right lower leg
--- NOTE | 2022-03-05 14:23 | WOUNDNOTE ---
wound photo: right lower leg
--- NOTE | 2022-03-05 14:23 | WOUNDNOTE ---
wound photo: right foot
[2022-03-05 15:56] LABS: Bedside Glucose 187 mg/dL (74-106)
--- NOTE | 2022-03-05 16:15 | PN.SURG_ITS ---
Subjective Subjective Improved over weekend, off pressors, still with minimal UOP, HD planned this evening. Objective Data Objective Data Vital Signs: Vital Signs Temp Pulse Resp BP Pulse Ox O2 Del Method O2 Flow Rate 98.1 F 92 26 H 94/57 L 100 Nasal Cannula 2 03/05/22 15:00 03/05/22 15:03 03/05/22 15:00 03/05/22 15:00 03/05/22 15:00 03/05/22 15:17 03/05/22 15:17 FiO2 2 03/04/22 13:00 Oxygen Flow Rate (L/min) 2 Oxygen Delivery Method Nasal Cannula Weight: 181 lb 7.047 oz Body Mass Index (BMI) 26.0 Intake & Output: Intake and Output for Last 24 Hours 03/03/22 03/04/22 03/05/22 23:59 23:59 23:59 Intake Total 3499.35 / 3508.75 3954.26 / 3956.16 472.85 / 472.85 Output Total 415 / 415 215 / 215 132 / 132 Balance 3084.35 / 3093.75 3739.26 / 3741.16 340.85 / 340.85 Lab / Micro Data Result Diagrams: 03/05/22 04:05 03/05/22 04:05 Labs: Laboratory Results - last 24 hr 03/03/22 06:00: Crossmatch See Detail 03/04/22 16:05: POC Glucose 203 H 03/04/22 21:11: POC Glucose 210 H 03/05/22 04:05: Sodium 136, Potassium 4.0, Chloride 101, Carbon Dioxide 25.0, BUN 65 H, Creatinine 4.99 H, Estim Creat Clear Calc 11.77, Est GFR (MDRD) Af Amer 15 L, Est GFR (MDRD) Non-Af 12 L, BUN/Creatinine Ratio 13.0, Glucose 139 H, Calcium 8.3 L, Phosphorus 5.9 H, Albumin 2.2 L 03/05/22 04:05: WBC 11.3 H, RBC 2.76 L, Hgb 8.2 L, Hct 25.7 L, MCV 93.1, MCH 29.7, MCHC 31.9 L, RDW Std Deviation 53.7 H, RDW Coeff of Nguyen 15.8 H, Plt Count 82 L, MPV 11.0, Immature Gran % (Auto) 0.700, Neut % (Auto) 87.1 H, Lymph % (Auto) 3.6 L, [place] % (Auto) 6.2, Eos % (Auto) 2.3, Baso % (Auto) 0.1, Absolute Neuts (auto) 9.8 H, Absolute Lymphs (auto) 0.41 L, Nucleated RBC % 0, Platelet Estimate MOD DEC, Poikilocytosis 1+, Anisocytosis 1+, Ovalocytes RARE, Thai Cells 1+, Acanthocytes (Spur) 1+ 03/05/22 07:45: Random Vancomycin 14.2 03/05/22 07:47: POC Glucose 130 H 03/05/22 11:22: POC Glucose 223 H 03/05/22 15:35: POC Glucose 187 H Micro: Microbiology 03/02/22 08:10 Blood Culture (Wb) - Right Forearm Blood Culture - Preliminary No growth in 48 hours. 03/02/22 08:05 Blood Culture (Wb) - Neck Blood Culture - Preliminary No growth in 48 hours. 03/04/22 09:40 Stool Stool Occult Blood (CANDIDA) - Final Occult Blood Positive 03/02/22 18:20 Stool C. difficile DNA Amplification - Final 03/01/22 21:30 Mucosa - Nasopharyngeal Respiratory Panel (PCR) - Final 03/01/22 22:00 Urine Catheter - Catheter Legionella Antigen - Final 03/01/22 22:00 Urine Catheter - Catheter Streptococcus pneumoniae Antigen (M - Final Radiography Diagnostic Testing: Radiology Impression Extremity Arterial Study 03/01/22 20:05 Interpretation Summary Right REBECCA 0.43, severe arterial insufficiency. Doppler/PVR waveforms and segmental pressures reveal distal SFA/popliteal disease. Left REBECCA 0.61, moderate arterial insufficiency. Doppler/PVR waveforms and segmental pressures reveal distal SFA/popliteal, infrapopliteal disease. Ordering Physician: Jai Fan Referring Physician: Pedro Lius Shin Performed By: SHAWNA MAGAÑA RVT Physical Exam Const alert, no apparent distress and healthy appearing General Appearance: cooperative; Negative for combative or lethargic Orientation / Consciousness: awake Exam Limitations: no limitations HEENT Head and Scalp: normocephalic and atraumatic Eyes EOMs intact bilaterally General Eye: normal appearance of both eyes Neck full ROM General: trachea midline Resp normal respiratory effort and no use of accessory muscles Effort and Inspection: Negative for labored, stridor or audible wheezes Cardio regular rate and regular rhythm Cardio Narrative: absent femoral/popliteal pulses bilateral Extremity full ROM General Extremity: edema Skin no rashes or lesions noted Wounds: wounds noted Wound Narrative: bilateral lower leg ulcerations, left great toe gangrene, right second toe gangrene Neuro CN's II-XII intact bilaterally, no focal motor deficits and no sensory deficits noted Psych thought process normal, cooperative, affect normal, speech normal and activity/motor behavior normal Assessment & Plan Assessment/Plan (1) Peripheral vascular disease, unspecified: PLAN: -PVRs reveal bilateral disease, distal SFA/popliteal and infrapopliteal; similar distribution in 2014 when he underwent intervention bilateral -prior angio images reviewed, severe tibial and pedal level disease bilateral -hemodynamically improved, renal function still requiring HD -uncertain if renal function will recover -ideally would need angio +/- intervention and utilize CO2 in efforts to minimize contrast and avoid further renal injury -may still require some contrast unfortunately -will discuss/coordinate with podiatry, nephrology to determine best timing/order of plans Charges/Coding Visit Charges Inpatient E&M: 46686 Subs Hosp L2
--- NOTE | 2022-03-05 20:34 | DIALYSIS ---
Hemodialysis completed x 3.5 hrs. Access via right groin temporary HD cath. Net UF 1000ml. pt saray well. See Hd flowsheet on chart.
[2022-03-05] MEDS: Atorvastatin Calcium 80 MG Tablet PO (21:29)
[2022-03-05] MEDS: Insulin NPH Human 100 UNITS/ML PEN SC (21:34)
[2022-03-05 22:01] LABS: Bedside Glucose 126 mg/dL (74-106)
[2022-03-06] VITALS (38 sets, daily range): BP systolic 85–123; BP diastolic 36–90; PULSE 99–128; RESP 16–29; TEMP 36.7–37.2; O2SAT 93–100
[2022-03-06 03:30] LABS: Basophil# 0.01 X10^3/uL; Basophil% 0.1 % (0-1); Eosinophil# 0.19 X10^3/uL; Eosinophils% 2.1 % (0-5); Hematocrit 24.9 % (40-54); Hemoglobin 7.9 g/dL (13.0-16.5); Lymphocyte % 3.2 % (19-41); Mean Corp Hgb Conc 31.7 g/dL (32-36); Mean Corpuscular Hgb 29.7 pg (27.0-32.0); Mean Corpuscular Volume 93.6 fL (80-94); Mean Platelet Vol. 11.1 fl (6.2-12.0); Monocyte# 0.65 X10^3/uL; NRBC Flagged by Analyzer 0 % (0-5); Neutrophil # 8.03 X10^3/uL (2.7-7.7); POSITIVE COUNT YES; POSITIVE DIFFERENTIAL YES; Platelet Count 72 K/mm3 (150-450); RBC Distribution Width CV 15.5 % (11.6-14.6); RBC Distribution Width SD 53.6 fl (35.1-43.9); Red Blood Count 2.66 M/mm3 (4.6-6.2); White Blood Count 9.2 K/mm3 (4.4-11.0)
[2022-03-06 03:32] LABS: ALB/GLOB Ratio 0.7 RATIO (0.9-2.4); AST(SGOT) 18 U/L (15-37); Alanine Aminotransfer ALT/SGPT 18 U/L (16-61); Albumin, Serum 2.1 g/dL (3.2-5.0); Alkaline Phosphatase 82 U/L (45-117); Anion Gap 5 (5-15); BUN 36 mg/dL (7-18); BUN/Creat Ratio 10.5 RATIO (10-20); Calcium,Total 7.7 mg/dL (8.5-10.1); Chloride 102 mmol/L (98-107); Creatinine, Serum 3.42 mg/dL (0.70-1.30); EST Glomerular Filtration Rate 19 mL/min (>60); Est Glom Filt Rate - Afr Amer 23 mL/min (>60); Estimated Creatinine Clearance 17.18 ml/min; Globulin 3.2 g/dL (2.2-4.2); Glucose 93 mg/dL (74-106); Potassium 3.3 mmol/L (3.5-5.1); Protein, Total 5.3 g/dL (6.4-8.2); Sodium Level 138 mmol/L (136-145)
[2022-03-06 03:34] LABS: Differential Indicated SCAN CRITERIA MET
[2022-03-06 04:06] LABS: Acanthocytes RARE; Differential Comment SCANNED; Ovalocyte RARE; Platelet Estimate MOD DEC (ADEQ)
--- NOTE | 2022-03-06 06:10 | RAD_ITS ---
EXAM: XR CHEST, 1 VIEW CLINICAL INDICATION: Hypoxia TECHNIQUE: Frontal view of the chest. This report was created using [employer] report generation technology. COMPARISON: None. FINDINGS: LUNGS AND PLEURAL SPACES: Hazy increased density mid and lower lung zones bilaterally. Small bilateral pleural effusions. No pneumothorax. HEART: Coronary stent. Stable cardiomegaly. MEDIASTINUM: Central airways and mediastinal contour are unremarkable. BONES/JOINTS: Sternal wires. SOFT TISSUES: Unremarkable. TUBES, LINES AND DEVICES: No change AICD pacemaker. RAD/Chest 1 View (Portable) IMPRESSION: Cardiomegaly with small effusions and hazy increased density in the mid and lower lung zones bilaterally that may be due to pulmonary edema or infection. Electronically Signed: Guillermo Gaona MD at 6:53 EST ,
--- NOTE | 2022-03-06 08:11 | PN.CC_ITS ---
Assessment & Plan Assessment/Plan (1) Septic shock: PLAN: Continue zosyn; vanco discontinued yesterday after cultures remained negative. Amputation has been recommended, patient is willing to have a partial amputation preserving his hindfoot, explained that may not be sufficient to control his infection/sepsis. He stated he would rather than lose his lower leg. (2) DAVIS (acute kidney injury): PLAN: Patient remains on dialysis. Management per renal (3) Non-pressure chronic ulcer of other part of left foot with fat layer exposed: PLAN: as above, local wound care continuing. Extensive arteriovascular disease bilaterally has been demonstrated. (4) Non-pressure chronic ulcer of other part of right foot with fat layer exposed: PLAN: as above, local wound care continuing. Extensive arteriovascular disease bilaterally has been demonstrated. (5) Peripheral vascular disease, unspecified: PLAN: as above, local wound care continuing. Extensive arteriovascular disease bilaterally has been demonstrated. (6) Type 2 diabetes mellitus: PLAN: glucoses running low 200s, reasonable control on current regimen. (7) Ischemic cardiomyopathy: PLAN: No active issues (8) Anemia: PLAN: transfused 1 U PRBCs yesterday/. (9) History of implantable cardiac defibrillator (ICD): (10) History of pleural effusion: PLAN: Had a ~2L thoracentesis approximately 2 years ago by history. (11) Hypokalemia: PLAN: supplementing, 3.3 today (12) Acute on chronic systolic (congestive) heart failure: PLAN: This is the main source of dyspnea, improved after fluid removed yesterday. SpO2 has been stable on 2 LPM nasal O2. Recommend continuing dialysis daily for goal of net 1-2L out daily if BP tolerates. (13) senior living current use of 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: PLAN: Warfarin held in light of GI bleeding and need for transfusion 03/05. INR 1.8 today. (14) Paroxysmal atrial fibrillation: PLAN: Plan as above. Continue respiratory support as needed. Critical care time: 40 minutes in ICU with bedside care & exam, review of documentation. Subjective Subjective Patient feels worse, heels like he is going downhill. Has dyspnea with any e xertion, nonprodu tive cough, wheezing, denied chest pain. Left leg is painful. Breathing a little better after removal of ~1L flud during dialysis yesterday. Is bedbound due to femoral dialysis catheter. Voice is hoarse. Objective Data Objective Data Vital Signs: Vital Signs Temp Pulse Resp BP Pulse Ox O2 Del Method O2 Flow Rate 98.6 F 115 H 19 H 93/64 99 Nasal Cannula 2 03/06/22 04:00 03/06/22 07:44 03/06/22 07:00 03/06/22 07:00 03/06/22 07:00 03/06/22 07:00 03/06/22 07:00 FiO2 2 03/04/22 13:00 Oxygen Flow Rate (L/min) 2 Oxygen Delivery Method Nasal Cannula Weight: 179 lb 0.246 oz Body Mass Index (BMI) 26.0 Intake & Output: Intake and Output for Last 24 Hours 03/04/22 03/05/22 03/06/22 23:59 23:59 23:59 Intake Total 3954.26 / 3956.16 1147.85 / 1147.85 50 / 50 Output Total 215 / 215 1172 / 1172 10 / 10 Balance 3739.26 / 3741.16 -24.15 / -24.15 40 / 40 Poor appetite. Lab / Micro Data Attestation: I reviewed the patient's lab results. Result Diagrams: 03/06/22 03:00 03/06/22 03:00 Labs: Laboratory Results - last 24 hr 03/05/22 07:45: Random Vancomycin 14.2 03/05/22 11:22: POC Glucose 223 H 03/05/22 15:35: POC Glucose 187 H 03/05/22 21:32: POC Glucose 126 H 03/06/22 03:00: Sodium 138, Potassium 3.3 L, Chloride 102, Carbon Dioxide 31.0, Anion Gap 5, BUN 36 H, Creatinine 3.42 H, Estim Creat Clear Calc 17.18, Est GFR (MDRD) Af Amer 23 L, Est GFR (MDRD) Non-Af 19 L, BUN/Creatinine Ratio 10.5, Glucose 93, Calcium 7.7 L, Total Bilirubin 1.10 H, AST 18, ALT 18, Alkaline Phosphatase 82, Total Protein 5.3 L, Albumin 2.1 L, Globulin 3.2, Albumin/Globulin Ratio 0.7 L 03/06/22 03:00: WBC 9.2, RBC 2.66 L, Hgb 7.9 L, Hct 24.9 L, MCV 93.6, MCH 29.7, MCHC 31.7 L, RDW Std Deviation 53.6 H, RDW Coeff of Nguyen 15.5 H, Plt Count 72 L, MPV 11.1, Immature Gran % (Auto) 0.600, Neut % (Auto) 87.0 H, Lymph % (Auto) 3.2 L, [place] % (Auto) 7.0, Eos % (Auto) 2.1, Baso % (Auto) 0.1, Absolute Neuts (auto) 8.0 H, Absolute Lymphs (auto) 0.30 L, Nucleated RBC % 0, Differential Comment SCANNED, Platelet Estimate MOD DEC, Ovalocytes RARE, Acanthocytes (Spur) RARE Micro: Microbiology 03/02/22 08:10 Blood Culture (Wb) - Right Forearm Blood Culture - Preliminary No growth in 48 hours. 03/02/22 08:05 Blood Culture (Wb) - Neck Blood Culture - Preliminary No growth in 48 hours. 03/04/22 09:40 Stool Stool Occult Blood (CANDIDA) - Final Occult Blood Positive 03/02/22 18:20 Stool C. difficile DNA Amplification - Final 03/01/22 21:30 Mucosa - Nasopharyngeal Respiratory Panel (PCR) - Final 03/01/22 22:00 Urine Catheter - Catheter Legionella Antigen - Final 03/01/22 22:00 Urine Catheter - Catheter Streptococcus pneumoniae Antigen (M - Final Radiography Diagnostic Testing: Radiology Impression Extremity Arterial Study 03/01/22 20:05 Interpretation Summary Right REBECCA 0.43, severe arterial insufficiency. Doppler/PVR waveforms and segmental pressures reveal distal SFA/popliteal disease. Left REBECCA 0.61, moderate arterial insufficiency. Doppler/PVR waveforms and segmental pressures reveal distal SFA/popliteal, infrapopliteal disease. Ordering Physician: Jai Fan Referring Physician: Pedro Luis Shin Performed By: SHAWNA MAGAÑA RVT Chest X-Ray 03/06/22 06:10 IMPRESSION: Cardiomegaly with small effusions and hazy increased density in the mid and lower lung zones bilaterally that may be due to pulmonary edema or infection. Electronically Signed: Guillermo Gaona MD at 6:53 EST , Rhythm Strip Rhythm Strip: Sinus Rhythm Physical Exam Narrative WD chronically ill appearing man HEENT: mmm, EOMI Neck LIF 3-limen line in place, clean & dry, no JVD sitting up at 45 degrees Chest with bilateral crakles in both lungs to 1/2, mild wheezes, no ronchi or consolidation, in mild respiratory distress with conversation, weak voicing but articulate, speaking 5 word sentences. Mild dry cough during visit. cor normal s1s2 tachy, no murmurs abd soft, NT whalen in place Ext: wrapped bilaterally, with dry gangrene of L distal foot, mild LE edema proximally. Skin: multiple sores and eschars of all extremities, chronic coumadin ecchymoses bilateral UEs Neuro: A&O x 3, moderate LE pain, grossly nonfocal, diffusely weak Sepsis Attestation Sepsis Alert: Yes Sepsis Attestation: Agree w/Sepsis Date exam was performed: 03/06/22 Possible Source of Sepsis: Wound Sepsis Organ Dysfunction Criteria Present: Creatinine > 2.0 mg/dL, Platelets <100,000 / uL and INR > 1.5 or aPTT > 60 sec Charges/Coding Procedures Hospitalists Procedures: [id number] [facility]
[2022-03-06 08:21] LABS: Bedside Glucose 107 mg/dL (74-106)
--- NOTE | 2022-03-06 09:04 | PCM.PN.HOSP ---
Subjective Subjective No issues overnight, doing well. Was on intermittent pressors but seems to have been off for the last 24 hours. Adamant that he would never want to have an amputation Objective Data Objective Data Vital Signs: Vital Signs Temp Pulse Resp BP Pulse Ox O2 Del Method O2 Flow Rate 98.6 F 115 H 19 H 93/64 99 Nasal Cannula 2 03/06/22 04:00 03/06/22 07:44 03/06/22 07:00 03/06/22 07:00 03/06/22 07:00 03/06/22 08:00 03/06/22 08:00 FiO2 2 03/04/22 13:00 Oxygen Flow Rate (L/min) 2 Oxygen Delivery Method Nasal Cannula Weight: 179 lb 0.246 oz Body Mass Index (BMI) 26.0 Intake & Output: Intake and Output for Last 24 Hours 03/05/22 03/06/22 03/07/22 03:59 03:59 03:59 Intake Total 2935.35 / 2937.25 1140.25 / 1140.25 0 / 0 Output Total 215 / 215 1172 / 1182 65 / 65 Balance 2720.35 / 2722.25 -31.75 / -41.75 -65 / -65 Lab / Micro Data Result Diagrams: 03/06/22 03:00 03/06/22 03:00 Labs: Laboratory Results - last 24 hr 03/05/22 11:22: POC Glucose 223 H 03/05/22 15:35: POC Glucose 187 H 03/05/22 21:32: POC Glucose 126 H 03/06/22 03:00: Sodium 138, Potassium 3.3 L, Chloride 102, Carbon Dioxide 31.0, Anion Gap 5, BUN 36 H, Creatinine 3.42 H, Estim Creat Clear Calc 17.18, Est GFR (MDRD) Af Amer 23 L, Est GFR (MDRD) Non-Af 19 L, BUN/Creatinine Ratio 10.5, Glucose 93, Calcium 7.7 L, Total Bilirubin 1.10 H, AST 18, ALT 18, Alkaline Phosphatase 82, Total Protein 5.3 L, Albumin 2.1 L, Globulin 3.2, Albumin/Globulin Ratio 0.7 L 03/06/22 03:00: WBC 9.2, RBC 2.66 L, Hgb 7.9 L, Hct 24.9 L, MCV 93.6, MCH 29.7, MCHC 31.7 L, RDW Std Deviation 53.6 H, RDW Coeff of Nguyen 15.5 H, Plt Count 72 L, MPV 11.1, Immature Gran % (Auto) 0.600, Neut % (Auto) 87.0 H, Lymph % (Auto) 3.2 L, [place] % (Auto) 7.0, Eos % (Auto) 2.1, Baso % (Auto) 0.1, Absolute Neuts (auto) 8.0 H, Absolute Lymphs (auto) 0.30 L, Nucleated RBC % 0, Differential Comment SCANNED, Platelet Estimate MOD DEC, Ovalocytes RARE, Acanthocytes (Spur) RARE 03/06/22 08:01: POC Glucose 107 H Micro: Microbiology 03/02/22 08:10 Blood Culture (Wb) - Right Forearm Blood Culture - Preliminary No growth in 48 hours. 03/02/22 08:05 Blood Culture (Wb) - Neck Blood Culture - Preliminary No growth in 48 hours. 03/04/22 09:40 Stool Stool Occult Blood (CANDIDA) - Final Occult Blood Positive 03/02/22 18:20 Stool C. difficile DNA Amplification - Final 03/01/22 21:30 Mucosa - Nasopharyngeal Respiratory Panel (PCR) - Final 03/01/22 22:00 Urine Catheter - Catheter Legionella Antigen - Final 03/01/22 22:00 Urine Catheter - Catheter Streptococcus pneumoniae Antigen (M - Final Radiography Diagnostic Testing: Radiology Impression Extremity Arterial Study 03/01/22 20:05 Interpretation Summary Right REBECCA 0.43, severe arterial insufficiency. Doppler/PVR waveforms and segmental pressures reveal distal SFA/popliteal disease. Left REBECCA 0.61, moderate arterial insufficiency. Doppler/PVR waveforms and segmental pressures reveal distal SFA/popliteal, infrapopliteal disease. Ordering Physician: Jai Fan Referring Physician: Pedro Luis Shin Performed By: SHAWNA MAGAÑA [place] Chest X-Ray 03/06/22 06:10 IMPRESSION: Cardiomegaly with small effusions and hazy increased density in the mid and lower lung zones bilaterally that may be due to pulmonary edema or infection. Electronically Signed: Guillermo Gaona MD at 6:53 EST Reading Location ID and State: [address] [place] [address] Tel , Service support , Rhythm Strip Rhythm Strip: Sinus Rhythm Physical Exam Narrative General: Alert, Oriented x3, Cooperative, No apparent distress HEENT: Atraumatic, PERRLA, EOMI, Normocephalic Oral: Moist Mucosa Neck: Supple, No JVD Lungs: Diminished, Normal air movement, No rhonchi, No wheeze, No rales Cardiovascular: Regular rate, Regular Rhythm, Normal S1, Normal S2, o murmurs Abdomen: Soft, Non Tender, Non-Distended, No Hepato-splenomegaly Extremities: Edema, Capillary Refill Less than 3 Seconds Skin: Legs are currently wrapped evidence of skin breakdown Musculoskeletal: No Tenderness to Palpation of Joints or Extremities Neurological: Cranial nerves II-XII grossly intact, Motor Exam 5/5 strength throughout, Sensory exam intact to light touch and pain Psych/Mental Status: Normal Affect, Appropriate Assessment & Plan Assessment/Plan (1) Septic shock: PLAN: Plan 1. 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 Appreciate podiatry ? Continue with infectious disease recommendations, vancomycin and Zosyn, wound cultures are polymicrobial ? Continue with ICU care given his need for Levophed intermittently ? He is currently on dialysis for his DAVIS he does not normally have dialysis at home. Appreciate nephrology's assistance ? We will monitor his blood sugars and adjust as necessary ? Appreciate vascular surgery's assistance, will need to plan on diagnostic imaging of his vasculature 2. Paroxysmal A. fib/CAD status post CABG and stent/pulmonary hypertension/moderate aortic stenosis/chronic systolic CHF ? Currently on Coumadin for his A. fib, will hold while here for possible surgery and debridement ? Can continue with aspirin, Lipitor ? We will hold any blood pressure medication secondary to his hypotension 3. Anemia with Hemoccult positive stools from a rectal bleed ? Continue with PPI and will transfuse as necessary ? We will avoid anticoagulation at this time but will have GI see if we continue to have problems controlling his hemoglobin, does appear that his rectal bleeding has been a chronic problem DVT: SCDs Charges/Coding Visit Charges Inpatient E&M: 89068 Subs Hosp L2
--- NOTE | 2022-03-06 09:45 | PCM.PN.ID ---
Physical Exam Narrative Feeling ok. No fever. Family at bedside. Does not want BKA. Const alert and no apparent distress Resp normal air movement and clear to auscultation bilaterally Cardio regular rate and regular rhythm GI soft to palpation, non-tender and non-distended Skin Skin Narrative: legs wrapped ID ID: Route of nutrition/ use of supplements: [] Nutritional Intake: [] IV Site: [] Laura Catheter: [] Assessment & Plan Assessment/Plan (1) Septic shock: PLAN: Due to BLE infected ulcers and gangrene. Recent wound cx with citro, proteus, morganella, serratia, GBS, enterococcus, and anaerobes. Had been on po doxy/cipro, but those are unreliable for GBS, enterococcus, and anaerobes. Podiatry following, amputation planned. Given severity of illness, cont empiric vanc/zosyn, adjusted zosyn to q12h based on GFR. Cdiff neg. Now off pressors. Will follow (2) DAVIS (acute kidney injury): (3) Diabetic infection of right foot:
--- NOTE | 2022-03-06 09:46 | CPS ---
Talked to patient about wearing bipap for his shortness of breath. Patient stated that he is fine at rest as long as he has oxygen on. Patient said that he becomes short of breath when eating and doesn't want to wear the bipap. RT encouraged pt to use his IS.
[2022-03-06] MEDS: Aspirin E.C. 81 MG Tablet PO (10:14)
[2022-03-06] MEDS: CHLORHEXIDINE GLUC 2% CLOTH 1 EACH TOWELETTE TOPICAL (10:16)
[2022-03-06 11:39] LABS: Complement C3 76 mg/dL (82-167)
--- NOTE | 2022-03-06 11:59 | PN.RENAL_ITS ---
Subjective Subjective New events today. Appears somewhat short of breath. Chest x-ray is wet looking. Objective Data Objective Data Vital Signs: Vital Signs Temp Pulse Resp BP Pulse Ox O2 Del Method O2 Flow Rate 98.4 F 104 H 27 H 98/59 L 100 Nasal Cannula 2 03/06/22 08:00 03/06/22 09:00 03/06/22 09:00 03/06/22 09:00 03/06/22 09:00 03/06/22 09:00 03/06/22 09:00 FiO2 2 03/04/22 13:00 Oxygen Flow Rate (L/min) 2 Oxygen Delivery Method Nasal Cannula Weight: 81.2 kg Body Mass Index (BMI) 26.0 Intake & Output: Intake and Output for Last 24 Hours 03/04/22 03/05/22 03/06/22 23:59 23:59 23:59 Intake Total 3954.26 / 3956.16 1147.85 / 1147.85 280 / 280 Output Total 215 / 215 1172 / 1172 65 / 65 Balance 3739.26 / 3741.16 -24.15 / -24.15 215 / 215 Lab / Micro Data Result Diagrams: 03/06/22 03:00 03/06/22 03:00 Labs: Laboratory Results - last 24 hr 03/01/22 20:05: Complement C3 76 L, Complement C4 16 03/05/22 15:35: POC Glucose 187 H 03/05/22 21:32: POC Glucose 126 H 03/06/22 03:00: Sodium 138, Potassium 3.3 L, Chloride 102, Carbon Dioxide 31.0, Anion Gap 5, BUN 36 H, Creatinine 3.42 H, Estim Creat Clear Calc 17.18, Est GFR (MDRD) Af Amer 23 L, Est GFR (MDRD) Non-Af 19 L, BUN/Creatinine Ratio 10.5, Glucose 93, Calcium 7.7 L, Total Bilirubin 1.10 H, AST 18, ALT 18, Alkaline Phos phatase 82, Total Protein 5.3 L, Albumin 2.1 L, Globulin 3.2, Albumin/Globulin Ratio 0.7 L 03/06/22 03:00: WBC 9.2, RBC 2.66 L, Hgb 7.9 L, Hct 24.9 L, MCV 93.6, MCH 29.7, MCHC 31.7 L, RDW Std Deviation 53.6 H, RDW Coeff of Nguyen 15.5 H, Plt Count 72 L, MPV 11.1, Immature Gran % (Auto) 0.600, Neut % (Auto) 87.0 H, Lymph % (Auto) 3.2 L, [place] % (Auto) 7.0, Eos % (Auto) 2.1, Baso % (Auto) 0.1, Absolute Neuts (auto) 8.0 H, Absolute Lymphs (auto) 0.30 L, Nucleated RBC % 0, Differential Comment SCANNED, Platelet Estimate MOD DEC, Ovalocytes RARE, Acanthocytes (Spur) RARE 03/06/22 08:01: POC Glucose 107 H Micro: Microbiology 03/02/22 08:10 Blood Culture (Wb) - Right Forearm Blood Culture - Preliminary No growth in 48 hours. 03/02/22 08:05 Blood Culture (Wb) - Neck Blood Culture - Preliminary No growth in 48 hours. 03/04/22 09:40 Stool Stool Occult Blood (CANDIDA) - Final Occult Blood Positive 03/02/22 18:20 Stool C. difficile DNA Amplification - Final 03/01/22 21:30 Mucosa - Nasopharyngeal Respiratory Panel (PCR) - Final 03/01/22 22:00 Urine Catheter - Catheter Legionella Antigen - Final 03/01/22 22:00 Urine Catheter - Catheter Streptococcus pneumoniae Antigen (M - Final Radiography Diagnostic Testing: Radiology Impression Extremity Arterial Study 03/01/22 20:05 Interpretation Summary Right REBECCA 0.43, severe arterial insufficiency. Doppler/PVR waveforms and segmental pressures reveal distal SFA/popliteal disease. Left REBECCA 0.61, moderate arterial insufficiency. Doppler/PVR waveforms and segmental pressures reveal distal SFA/popliteal, infrapopliteal disease. Ordering Physician: Jai Fan Referring Physician: Pedro Luis Shin Performed By: SHAWNA MAGAÑA RVT Chest X-Ray 03/06/22 06:10 IMPRESSION: Cardiomegaly with small effusions and hazy increased density in the mid and lower lung zones bilaterally that may be due to pulmonary edema or infection. Electronically Signed: Guillermo Gaona MD at 6:53 EST , Rhythm Strip Rhythm Strip: Sinus Rhythm Physical Exam Narrative General: Alert and oriented x3, NAD. HEENT: Normocephalic, atraumatic. Mucous membrane dry without erythema. PERRLA, EOMI. Hearing is intact. Neck: Supple, no JVD. Heart: Normal S1 and S2. There is a 2/6 systolic murmur. Lungs: Clear to auscultation anteriorly. Abdomen: Normal bowel sound, soft, nontender, no guarding or rebound. Extremities: No significant edema, right femoral dialysis catheter Neurologic: No focal neurologic deficits. Assessment & Plan Assessment/Plan (1) DAVIS (acute kidney injury): PLAN: The patient also likely has underlying chronic kidney disease with serum creatinine of around 1.2 to 1.5 mg/dL at baseline (serum creatinine was 1.46 mg/dL on 01/23/2022). I suspect that the patient has diabetic kidney disease or nephrosclerosis from hypertension/PAD. DAVIS is due to severe prerenal azotemia due to circulatory shock made worse by concurrent use of diuretic and ARB prior to admission. Prerenal DAVIS has likely progressed to ischemic ATN. Renal ultrasound did not show any evidence of obstructive nephropathy. Remains oliguric, urine analysis due to some protein In September, serum protein electrophoresis, ANCA antibodies are negative C3, C4 pending Plan for dialysis today will maintain TTS schedule for dialysis will need tunneled dialysis line since he has a femoral line in place (2) Acute hyperkalemia: PLAN: Resolved. Hyperkalemia was secondary to DAVIS, acidosis, ARB, spironolactone, and potassium supplementation. Potassium level was 6.7 mmol/L on presentation. Today K is low. will use 3K bath . (3) Metabolic acidosis: PLAN: Resolved. Serum bicarbonate level was 16 mmol/L on presentation. Metabolic acidosis was likely due to DAVIS along with diarrhea prior to presentation. (4) Shock circulatory: PLAN: Improving. Off vasopressor (5) Ischemic cardiomyopathy: PLAN: The patient has a history of CAD status post CABG and PCI to the graft to right coronary artery. He also has a history of heart failure with reduced ejection fraction with EF of 35%.
--- NOTE | 2022-03-06 12:38 | PN_ITS ---
Subjective Subjective Doing well this morning. Denies constitutional's. No changes overnight. Objective Data Objective Data Vital Signs: Vital Signs Temp Pulse Resp BP Pulse Ox O2 Del Method O2 Flow Rate 98.6 F 109 H 22 H 105/57 L 100 Nasal Cannula 2 03/06/22 12:00 03/06/22 12:00 03/06/22 12:00 03/06/22 12:00 03/06/22 12:00 03/06/22 12:00 03/06/22 12:00 FiO2 2 03/04/22 13:00 Oxygen Flow Rate (L/min) 2 Oxygen Delivery Method Nasal Cannula Weight: 81.2 kg Body Mass Index (BMI) 26.0 Intake & Output: Intake and Output for Last 24 Hours 03/04/22 03/05/22 03/06/22 23:59 23:59 23:59 Intake Total 3954.26 / 3956.16 1147.85 / 1147.85 280 / 280 Output Total 215 / 215 1172 / 1172 65 / 65 Balance 3739.26 / 3741.16 -24.15 / -24.15 215 / 215 Lab / Micro Data Result Diagrams: 03/06/22 03:00 03/06/22 03:00 Labs: Laboratory Results - last 24 hr 03/01/22 20:05: Complement C3 76 L, Complement C4 16 03/05/22 15:35: POC Glucose 187 H 03/05/22 21:32: POC Glucose 126 H 03/06/22 03:00: Sodium 138, Potassium 3.3 L, Chloride 102, Carbon Dioxide 31.0, Anion Gap 5, BUN 36 H, Creatinine 3.42 H, Estim Creat Clear Calc 17.18, Est GFR (MDRD) Af Amer 23 L, Est GFR (MDRD) Non-Af 19 L, BUN/Creatinine Ratio 10.5, Glucose 93, Calcium 7.7 L, Total Bilirubin 1.10 H, AST 18, ALT 18, Alkaline Phosphatase 82, Total Protein 5.3 L, Albumin 2.1 L, Globulin 3.2, Albumin/Globulin Ratio 0.7 L 03/06/22 03:00: WBC 9.2, RBC 2.66 L, Hgb 7.9 L, Hct 24.9 L, MCV 93.6, MCH 29.7, MCHC 31.7 L, RDW Std Deviation 53.6 H, RDW Coeff of Nguyen 15.5 H, Plt Count 72 L, MPV 11.1, Immature Gran % (Auto) 0.600, Neut % (Auto) 87.0 H, Lymph % (Auto) 3.2 L, [place] % (Auto) 7.0, Eos % (Auto) 2.1, Baso % (Auto) 0.1, Absolute Neuts (auto) 8.0 H, Absolute Lymphs (auto) 0.30 L, Nucleated RBC % 0, Differential Comment SCANNED, Platelet Estimate MOD DEC, Ovalocytes RARE, Acanthocytes (Spur) RARE 03/06/22 08:01: POC Glucose 107 H Micro: Microbiology 03/02/22 08:10 Blood Culture (Wb) - Right Forearm Blood Culture - Preliminary No growth in 48 hours. 03/02/22 08:05 Blood Culture (Wb) - Neck Blood Culture - Preliminary No growth in 48 hours. 03/04/22 09:40 Stool Stool Occult Blood (CANDIDA) - Final Occult Blood Positive 03/02/22 18:20 Stool C. difficile DNA Amplification - Final 03/01/22 21:30 Mucosa - Nasopharyngeal Respiratory Panel (PCR) - Final 03/01/22 22:00 Urine Catheter - Catheter Legionella Antigen - Final 03/01/22 22:00 Urine Catheter - Catheter Streptococcus pneumoniae Antigen (M - Final Radiography Diagnostic Testing: Radiology Impression Extremity Arterial Study 03/01/22 20:05 Interpretation Summary Right REBECCA 0.43, severe arterial insufficiency. Doppler/PVR waveforms and segmental pressures reveal distal SFA/popliteal disease. Left REBECCA 0.61, moderate arterial insufficiency. Doppler/PVR waveforms and s egmental pressures reveal distal SFA/popliteal, infrapopliteal disease. Ordering Physician: Jai Fan Referring Physician: Pedro Luis Shin Performed By: SHAWNA MAGAÑA RVT Chest X-Ray 03/06/22 06:10 IMPRESSION: Cardiomegaly with small effusions and hazy increased density in the mid and lower lung zones bilaterally that may be due to pulmonary edema or infection. Electronically Signed: Guillermo Gaona MD at 6:53 EST , Rhythm Strip Rhythm Strip: Sinus Rhythm Physical Exam Narrative Neurovascular status unchanged from previous visit. Improved edema to bilateral lower extremity. Less drainage to leg ulcerations. Ischemic ulcerations to the distal tuft of the left second third and first digit appear to be dry and stable at this point. Resolved signs of infection stable ischemic changes to right second digit. Stable ischemic wound to plantar heel bilaterally and plantar fifth metatarsal head bilaterally. 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 Today than previous evaluation. Wet gangrenous appearance on initial evaluation appears to be completely dry and demarcated today. Edema to bilateral lower extremity with improved drainage to the ulcerations. Demonstrate diminished blood flow with ABIs of .43/.31 to the DP and PT on the right and .61/.47 to the DP on the left. These pulses are monophasic at the level of the foot. Vascular is on consult, planning intervention. We will delay definitive amputation until revascularization as infection is significantly improved. In the meantime we will continue local wound care with dressing changes and observe for any acute degeneration of the wound sites. (2) Peripheral vascular disease, unspecified: (3) Non-pressure chronic ulcer of other part of left foot with fat layer exposed: (4) Diabetic infection of right foot:
[2022-03-06 12:40] LABS: Bedside Glucose 138 mg/dL (74-106)
[2022-03-06] MEDS: Menthol/Lanolin/Calamine/Znox 113 GM Tube 1 APPLIC TOPICAL ×2 (12:43→20:09)
[2022-03-06] MEDS: 0.9% Saline Lock 10 ML Syringe IV (14:40)
[2022-03-06 15:05] LABS: Vancomycin, Random Level 17.4 ug/mL (0.0-15.0)
[2022-03-06] MEDS: Albumin Human 25% (100 mL) 25 GM/100 ML BAG IV (16:30)
--- NOTE | 2022-03-06 16:37 | PCM.RX.CS ---
Consult Pharmacy has been consulted to manage selected antiobiotic: Vancomycin Type of Consult: Follow-up Suspected Infection: Skin/Soft tissue Labs: Sodium 138 mmol/L (136-145) 03/06/22 03:00 Potassium 3.3 mmol/L (3.5-5.1) L 03/06/22 03:00 Chloride 102 mmol/L (98-107) 03/06/22 03:00 Carbon Dioxide 31.0 mmol/L (21.0-32.0) 03/06/22 03:00 Anion Gap 5 (5-15) 03/06/22 03:00 BUN 36 mg/dL (7-18) H 03/06/22 03:00 Creatinine 3.42 mg/dL (0.70-1.30) H 03/06/22 03:00 Est GFR (MDRD) Af Amer 23 mL/min (>60) L 03/06/22 03:00 Est GFR (MDRD) Non-Af 19 mL/min (>60) L 03/06/22 03:00 BUN/Creatinine Ratio 10.5 RATIO (10-20) 03/06/22 03:00 Glucose 93 mg/dL (74-106) 03/06/22 03:00 Random Vancomycin 17.4 ug/mL (0.0-15.0) H 03/06/22 14:30 Microbiology: Microbiology 03/02/22 08:10 Blood Culture (Wb) - Right Forearm Blood Culture - Preliminary No growth in 48 hours. 03/02/22 08:05 Blood Culture (Wb) - Neck Blood Culture - Preliminary No growth in 48 hours. 03/04/22 09:40 Stool Stool Occult Blood (CANDIDA) - Final Occult Blood Positive 03/02/22 18:20 Stool C. difficile DNA Amplification - Final 03/01/22 21:30 Mucosa - Nasopharyngeal Respiratory Panel (PCR) - Final 03/01/22 22:00 Urine Catheter - Catheter Legionella Antigen - Final 03/01/22 22:00 Urine Catheter - Catheter Streptococcus pneumoniae Antigen (M - Final Goal Trough: 15-20 mcg/mL Pharmacy Plan for Drug Dosing: VANCOMYCIN LEVEL RECEIVED Current Vancomycin Dose: Dialysis Dosing Number of Doses Received: Vancomycin Level: pre dialysis level on 03.06.22 is 17.4 Hours Since Last Dose: Renal Function: Renal Function Trend: Lab/Micro: Vancomycin Plan/Comments: pt is to receive dialysis on 03.06.22. per dosing guidelines, recommend an additional 500mg x1 dose post dialysis based on his pre dialysis level of 17.4 Pending Level: next level is due prior to next dialysis session Pharmacy Service will continue to monitor and adjust dosing as required. Follow-Up Labs: Trough Vancomycin - prior to next dialysis session
[2022-03-06] MEDS: Insulin Lispro 100 UNIT/ML INSULN.PEN SC ×2 (18:20→20:25)
[2022-03-06 18:41] LABS: Bedside Glucose 217 mg/dL (74-106)
[2022-03-06] MEDS: Atorvastatin Calcium 80 MG Tablet PO (20:08)
[2022-03-06] MEDS: Vancomycin IV 500 MG/100 ML BAG 100 MG IV (20:13)
[2022-03-06] MEDS: Insulin NPH Human 100 UNITS/ML PEN SC (20:24)
[2022-03-06 21:26] LABS: Bedside Glucose 233 mg/dL (74-106)
[2022-03-07] VITALS (32 sets, daily range): BP systolic 87–114; BP diastolic 53–86; PULSE 86–136; RESP 15–31; TEMP 36.6–37.2; O2SAT 95–100
[2022-03-07] MEDS: Menthol/Lanolin/Calamine/Znox 113 GM Tube 1 APPLIC TOPICAL ×3 (03:08→21:57)
[2022-03-07 03:15] LABS: Absolute Lymphocyte Count 0.33 X10^3/uL (0.83-4.51); Absolute Neutrophil Count 8.4 X10^3/uL (2.0-7.7); Basophil# 0.01 X10^3/uL; Basophil% 0.1 % (0-1); Eosinophil# 0.11 X10^3/uL; Eosinophils% 1.1 % (0-5); Hemoglobin 8.1 g/dL (13.0-16.5); Lymphocyte # 0.33 X10^3/ul (0.83-4.51); Lymphocyte % 3.4 % (19-41); Mean Corp Hgb Conc 31.2 g/dL (32-36); Mean Corpuscular Hgb 29.9 pg (27.0-32.0); Mean Corpuscular Volume 95.9 fL (80-94); Monocyte# 0.76 X10^3/uL; Monocyte% 7.9 % (0-10); NRBC Flagged by Analyzer 0 % (0-5); Neutrophil # 8.37 X10^3/uL (2.7-7.7); POSITIVE COUNT YES; POSITIVE DIFFERENTIAL YES; Platelet Count 66 K/mm3 (150-450); RBC Distribution Width CV 15.3 % (11.6-14.6); RBC Distribution Width SD 53.3 fl (35.1-43.9); Red Blood Count 2.71 M/mm3 (4.6-6.2); White Blood Count 9.6 K/mm3 (4.4-11.0)
[2022-03-07 03:30] LABS: Differential Indicated SCAN CRITERIA MET
[2022-03-07 03:31] LABS: Anion Gap 8 (5-15); BUN 47 mg/dL (7-18); BUN/Creat Ratio 10.4 RATIO (10-20); Calcium,Total 8.5 mg/dL (8.5-10.1); Chloride 102 mmol/L (98-107); EST Glomerular Filtration Rate 14 mL/min (>60); Est Glom Filt Rate - Afr Amer 16 mL/min (>60); Estimated Creatinine Clearance 13.06 ml/min; Glucose 164 mg/dL (74-106); Potassium 3.7 mmol/L (3.5-5.1); Sodium Level 138 mmol/L (136-145)
[2022-03-07 03:41] LABS: Differential Comment SCANNED; Platelet Estimate MKD DEC (ADEQ)
--- NOTE | 2022-03-07 06:55 | PN.CC_ITS ---
Assessment & Plan Assessment/Plan (1) Septic shock: PLAN: Plan RECOMMENDATIONS: 1. Arrange for tunneled hemodialysis line 2. Continue antimicrobials per ID recommendations. 3. Ongoing dialysis support per nephrology recommendations. 4. Continue to monitor H&H daily and transfuse if hemoglobin drops below 7 g/dL. 5. Encourage incentive spirometer use while in bed. 6. Surgical intervention timing/plans per podiatry. 7. Hemodynamically stable on minimal nasal cannula. Will sign off from a critical care perspective IMPRESSIONS: 1. Septic shock The patient presented with sepsis due to infected diabetic foot wounds with acute sepsis related organ dysfunction as evidenced by acute kidney injury and fluid refractory hypotension, necessitating vasopressor support. The patient remains on appropriate antimicrobials. Plan to continue Levophed to maintain a systolic blood pressure greater than 90 mmHg. Defer definitive management of lower extremity diabetic wounds to podiatry, who is currently following. Patient with transient requirements for Levophed only with hemodialysis. Doubt ongoing sepsis. 2. Acute kidney injury Most likely prerenal in etiology in the setting of #1. The patient did receive supplemental IV fluids and remains on vasopressor support to maintain hemodynamic stability. The patient will be continued on dialysis support per nephrology recommendations. No significant improvement in urine output following hemodialysis. Patient likely requires a tunneled hemodialysis line. 3. Coagulopathy The patient is maintained on Coumadin on an outpatient basis. The patient is coagulopathic in the setting of sepsis. Agree with holding systemic anticoagulation and monitoring INR daily. In light of the patient's worsening anemia and elevated INR, vitamin K was ultimately administered. Likely will not repeat anticoagulation until after surgery 4. Anemia Hemoglobin is stable at 8.1 g/dL this morning. PPI therapy twice daily will be continued. Continue to monitor blood counts daily and transfuse if hemoglobin drops below 7 g/dL. Continue to hold systemic anticoagulation. 5. History of ischemic cardiomyopathy/paroxysmal atrial fibrillation/anemia/diabetes mellitus/GERD/RITESH Complicates care, management, recovery and prognosis. Continue to hold Coumadin and antihypertensives. The patient will be maintained on sliding scale insulin coverage. Patient with ongoing issues including chronic dialysis, potential revascularization and diabetic foot wounds, but critical care issues appear to be controlled at this time. Will sign off from a critical care perspective. Subjective Subjective Patient did well overnight. Patient did have hemodialysis yesterday with 3 L removed. Patient did require transient Levophed to facilitate volume removal, b ut this was quickly discontinued after dialysis. Patient feels subjectively slightly improved compared to previous. Patient feels not so short of breath. Objective Data Objective Data Vital Signs: Vital Signs Temp Pulse Resp BP Pulse Ox O2 Del Method O2 Flow Rate 36.9 C 114 H 21 H 93/75 100 Nasal Cannula 2 03/07/22 04:00 03/07/22 06:00 03/07/22 06:00 03/07/22 06:00 03/07/22 06:00 03/07/22 06:00 03/07/22 06:00 FiO2 2 03/04/22 13:00 Oxygen Flow Rate (L/min) 2 Oxygen Delivery Method Nasal Cannula Weight: 81.6 kg Body Mass Index (BMI) 26.0 Intake & Output: Intake and Output for Last 24 Hours 03/05/22 03/06/22 03/07/22 23:59 23:59 23:59 Intake Total 1147.85 / 1147.85 947.38 / 948.33 62.35 / 62.35 Output Total 1172 / 1172 3110 / 3110 Balance -24.15 / -24.15 -2162.62 / -2161.67 52.35 / 52.35 Lab / Micro Data Attestation: I reviewed the patient's lab results. Result Diagrams: 03/07/22 03:05 03/07/22 03:05 Labs: Laboratory Results - last 24 hr 03/01/22 20:05: Complement C3 76 L, Complement C4 16 03/06/22 08:01: POC Glucose 107 H 03/06/22 12:21: POC Glucose 138 H 03/06/22 14:30: Random Vancomycin 17.4 H 03/06/22 18:17: POC Glucose 217 H 03/06/22 20:18: POC Glucose 233 H 03/07/22 03:05: WBC 9.6, RBC 2.71 L, Hgb 8.1 L, Hct 26.0 L, MCV 95.9 H, MCH 29.9, MCHC 31.2 L, RDW Std Deviation 53.3 H, RDW Coeff of Nguyen 15.3 H, Plt Count 66 L, MPV 11.0, Immature Gran % (Auto) 0.500, Neut % (Auto) 87.0 H, Lymph % (A uto) 3.4 L, [place] % (Auto) 7.9, Eos % (Auto) 1.1, Baso % (Auto) 0.1, Absolute Neuts (auto) 8.4 H, Absolute Lymphs (auto) 0.33 L, Nucleated RBC % 0, Differential Comment SCANNED, Platelet Estimate MKD 03/07/22 03:05: Sodium 138, Potassium 3.7, Chloride 102, Carbon Dioxide 28.0, Anion Gap 8, BUN 47 H, Creatinine 4.50 H, Estim Creat Clear Calc 13.06, Est GFR (MDRD) Af Amer 16 L, Est GFR (MDRD) Non-Af 14 L, BUN/Creatinine Ratio 10.4, Glucose 164 H, Calcium 8.5 Micro: Microbiology 03/02/22 08:10 Blood Culture (Wb) - Right Forearm Blood Culture - Preliminary No growth in 48 hours. 03/02/22 08:05 Blood Culture (Wb) - Neck Blood Culture - Preliminary No growth in 48 hours. 03/04/22 09:40 Stool Stool Occult Blood (CANDIDA) - Final Occult Blood Positive 03/02/22 18:20 Stool C. difficile DNA Amplification - Final 03/01/22 21:30 Mucosa - Nasopharyngeal Respiratory Panel (PCR) - Final 03/01/22 22:00 Urine Catheter - Catheter Legionella Antigen - Final 03/01/22 22:00 Urine Catheter - Catheter Streptococcus pneumoniae Antigen (M - Final Physical Exam Const alert, oriented x3 and no apparent distress Constitutional Narrative: No conversational dyspnea General Appearance: cooperative HEENT normocephalic and head/scalp atraumatic Eyes PERRL, EOMs intact bilaterally and conjunctivae normal Neck supple General: trachea midline and CVC in place Chest inspection of chest normal Resp normal respiratory effort Auscultation: rales bilateral (Mild) base and diminished lung sounds; Negative for rhonchi or wheezes Cardio regular rate, regular rhythm, S1 normal heart sound and S2 normal heart sound Heart Sounds: murmur GI normal to inspection, nondistended, normoactive bowel sounds Extremity General Extremity: edema bilateral lower extremity Skin Skin Narrative: Lower extremities are currently wrapped. Neuro CN's II-XII intact bilaterally, moves all extremities and no focal motor deficits Psych cooperative and affect normal Charges/Coding Visit Charges Inpatient E&M: 95631 Subs Hosp L3
[2022-03-07] MEDS: Insulin NPH Human 100 UNITS/ML PEN 12 UNITS SC (08:06)
[2022-03-07 08:30] LABS: Bedside Glucose 145 mg/dL (74-106)
[2022-03-07] MEDS: Aspirin E.C. 81 MG Tablet PO (09:23)
--- NOTE | 2022-03-07 10:12 | PN.HOSP_ITS ---
Subjective Subjective No issues overnight, off of Levophed again, had to be on it for dialysis yesterday. Objective Data Objective Data Vital Signs: Vital Signs Temp Pulse Resp BP Pulse Ox O2 Del Method O2 Flow Rate 98.3 F 100 31 H 105/76 100 Nasal Cannula 2 03/07/22 08:00 03/07/22 09:00 03/07/22 09:00 03/07/22 09:00 03/07/22 09:00 03/07/22 09:00 03/07/22 09:00 FiO2 2 03/04/22 13:00 Oxygen Flow Rate (L/min) 2 Oxygen Delivery Method Nasal Cannula Weight: 179 lb 14.355 oz Body Mass Index (BMI) 26.0 Intake & Output: Intake and Output for Last 24 Hours 03/06/22 03/07/22 03/08/22 03:59 03:59 03:59 Intake Total 1140.25 / 1140.25 959.73 / 959.73 0 / 0 Output Total 1172 / 1182 3110 / 3120 Balance -31.75 / -41.75 -2150.27 / -2160.27 -10 -10 Lab / Micro Data Result Diagrams: 03/07/22 03:05 03/07/22 03:05 Labs: Laboratory Results - last 24 hr 03/01/22 20:05: Complement C3 76 L, Complement C4 16 03/06/22 12:21: POC Glucose 138 H 03/06/22 14:30: Random Vancomycin 17.4 H 03/06/22 18:17: POC Glucose 217 H 03/06/22 20:18: POC Glucose 233 H 03/07/22 03:05: WBC 9.6, RBC 2.71 L, Hgb 8.1 L, Hct 26.0 L, MCV 95.9 H, MCH 29.9, MCHC 31.2 L, RDW Std Deviation 53.3 H, RDW Coeff of Nguyen 15.3 H, Plt Count 66 L, MPV 11.0, Immature Gran % (Auto) 0.500, Neut % (Auto) 87.0 H, Lymph % (Auto) 3.4 L, [place] % (Auto) 7.9, Eos % (Auto) 1.1, Baso % (Auto) 0.1, Absolute Neuts (auto) 8.4 H, Absolute Lymphs (auto) 0.33 L, Nucleated RBC % 0, Differential Comment SCANNED, Platelet Estimate MKD DEC 03/07/22 03:05: Sodium 138, Potassium 3.7, Chloride 102, Carbon Dioxide 28.0, Anion Gap 8, BUN 47 H, Creatinine 4.50 H, Estim Creat Clear Calc 13.06, Est GFR (MDRD) Af Amer 16 L, Est GFR (MDRD) Non-Af 14 L, BUN/Creatinine Ratio 10.4, Glucose 164 H, Calcium 8.5 03/07/22 08:05: POC Glucose 145 H Micro: Microbiology 03/02/22 08:05 Blood Culture (Wb) - Neck Blood Culture - Final No growth in 5 days. 03/02/22 08:10 Blood Culture (Wb) - Right Forearm Blood Culture - Final No growth in 5 days. 03/04/22 09:40 Stool Stool Occult Blood (CANDIDA) - Final Occult Blood Positive 03/02/22 18:20 Stool C. difficile DNA Amplification - Final 03/01/22 21:30 Mucosa - Nasopharyngeal Respiratory Panel (PCR) - Final 03/01/22 22:00 Urine Catheter - Catheter Legionella Antigen - Final 03/01/22 22:00 Urine Catheter - Catheter Streptococcus pneumoniae Antigen (M - Final Rhythm Strip Rhythm Strip: Sinus Rhythm Physical Exam Narrative General: Alert, Oriented x3, Cooperative, No apparent distress HEENT: Atraumatic, PERRLA, EOMI, Normocephalic Oral: Moist Mucosa Neck: Supple, No JVD Lungs: Diminished, Normal air movement, No rhonchi, No wheeze, No rales Cardiovascular: Regular rate, Regular Rhythm, Normal S1, Normal S2, murmurs Abdomen: Soft, Non Tender, Non-Distended, No Hepato-splenomegaly Extremities: Edema, Capillary Refill Less than 3 Seconds Skin: Legs are currently wrapped evidence of skin breakdown Musculoskeletal: No Tenderness to Palpation of Joints or Extremities Neurological: Cranial nerves II-XII grossly intact, Motor Exam 5/5 strength throughout, Sensory exam intact to light touch and pain Psych/Mental Status: Normal Affect, Appropriate Assessment & Plan Assessment/Plan (1) Septic shock: PLAN: Plan 1. 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 Appreciate podiatry ? Continue with infectious disease recommendations, vancomycin and Zosyn, wound cultures are polymicrobial ? Continue with ICU care given his need for Levophed intermittently for dialysis ? He is currently on dialysis for his DAVIS he does not normally have dialysis at home. Appreciate nephrology's assistance ? We will monitor his blood sugars and adjust as necessary ? Appreciate vascular surgery's assistance, will need to plan on diagnostic imaging of his vasculature 2. Paroxysmal A. fib/CAD status post CABG and stent/pulmonary hypertension/moderate aortic stenosis/chronic systolic CHF ? Currently on Coumadin for his A. fib, will hold while here for possible surgery and debridement ? Can continue with aspirin, Lipitor ? We will hold any blood pressure medication secondary to his hypotension 3. Anemia with Hemoccult positive stools from a rectal bleed ? Continue with PPI and will transfuse as necessary ? We will avoid anticoagulation at this time but will have GI see if we continue to have problems controlling his hemoglobin, does appear that his rectal bleeding has been a chronic problem DVT: SCDs Charges/Coding Visit Charges Inpatient E&M: 17340 Subs Hosp L2
[2022-03-07] MEDS: Insulin Lispro 100 UNIT/ML INSULN.PEN SC ×3 (11:21→21:59)
[2022-03-07 11:40] LABS: Bedside Glucose 227 mg/dL (74-106)
--- NOTE | 2022-03-07 13:49 | PCM.PN.ID ---
Physical Exam Narrative Feeling ok, off pressors, some loose stool Const alert and no apparent distress Resp normal air movement and clear to auscultation bilaterally Cardio regular rate and regular rhythm GI soft to palpation, non-tender and non-distended Skin Skin Narrative: legs wrapped ID ID: Route of nutrition/ use of supplements: [] Nutritional Intake: [] IV Site: [] Laura Catheter: [] Assessment & Plan Assessment/Plan (1) Septic shock: PLAN: Due to BLE infected ulcers and gangrene. Recent wound cx with citro, proteus, morganella, serratia, GBS, enterococcus, and anaerobes. Had been on po doxy/cipro, but those are unreliable for GBS, enterococcus, and anaerobes. Podiatry following, amputation planned. Given severity of illness, on empiric vanc/zosyn, adjusted zosyn to q12h based on GFR. Cdiff neg. Now off pressors. Will stop vanc. Will follow (2) DAVIS (acute kidney injury): (3) Diabetic infection of right foot:
--- NOTE | 2022-03-07 15:26 | PCM.PN.REN ---
Subjective Subjective no new events Objective Data Objective Data Vital Signs: Vital Signs Temp Pulse Resp BP Pulse Ox O2 Del Method O2 Flow Rate 98.3 F 86 19 H 98/72 100 Nasal Cannula 2 03/07/22 14:00 03/07/22 14:00 03/07/22 14:00 03/07/22 14:00 03/07/22 14:00 03/07/22 14:00 03/07/22 14:00 FiO2 2 03/04/22 13:00 Oxygen Flow Rate (L/min) 2 Oxygen Delivery Method Nasal Cannula Weight: 81.6 kg Body Mass Index (BMI) 26.0 Intake & Output: Intake and Output for Last 24 Hours 03/05/22 03/06/22 03/07/22 23:59 23:59 23:59 Intake Total 1147.85 / 1147.85 947.38 / 948.33 522.35 / 522.35 Output Total 1172 / 1172 3110 / 3110 55 / 55 Balance -24.15 / -24.15 -2162.62 / -2161.67 467.35 / 467.35 Lab / Micro Data Result Diagrams: 03/07/22 03:05 03/07/22 03:05 Labs: Laboratory Results - last 24 hr 03/06/22 18:17: POC Glucose 217 H 03/06/22 20:18: POC Glucose 233 H 03/07/22 03:05: WBC 9.6, RBC 2.71 L, Hgb 8.1 L, Hct 26.0 L, MCV 95.9 H, MCH 29.9, MCHC 31.2 L, RDW Std Deviation 53.3 H, RDW Coeff of Nguyen 15.3 H, Plt Count 66 L, MPV 11.0, Immature Gran % (Auto) 0.500, Neut % (Auto) 87.0 H, Lymph % (Auto) 3.4 L, [place] % (Auto) 7.9, Eos % (Auto) 1.1, Baso % (Auto) 0.1, Absolute Neuts (auto) 8.4 H, Absolute Lymphs (auto) 0.33 L, Nucleated RBC % 0, Differential Comment SCANNED, Platelet Estimate MKD DEC 03/07/22 03:05: Sodium 138, Potassium 3.7, Chloride 102, Carbon Dioxide 28.0, Anion Gap 8, BUN 47 H, Creatinine 4.50 H, Estim Creat Clear Calc 13.06, Est GFR (MDRD) Af Amer 16 L, Est GFR (MDRD) Non-Af 14 L, BUN/Creatinine Ratio 10.4, Glucose 164 H, Calcium 8.5 03/07/22 08:05: POC Glucose 145 H 03/07/22 11:21: POC Glucose 227 H Micro: Microbiology 03/02/22 08:05 Blood Culture (Wb) - Neck Blood Culture - Final No growth in 5 days. 03/02/22 08:10 Blood Culture (Wb) - Right Forearm Blood Culture - Final No growth in 5 days. 03/04/22 09:40 Stool Stool Occult Blood (CANDIDA) - Final Occult Blood Positive 03/02/22 18:20 Stool C. difficile DNA Amplification - Final 03/01/22 21:30 Mucosa - Nasopharyngeal Respiratory Panel (PCR) - Final 03/01/22 22:00 Urine Catheter - Catheter Legionella Antigen - Final 03/01/22 22:00 Urine Catheter - Catheter Streptococcus pneumoniae Antigen (M - Final Rhythm Strip Rhythm Strip: Sinus Rhythm Physical Exam Narrative General: Alert and oriented x3, NAD. HEENT: Normocephalic, atraumatic. Mucous membrane dry without erythema. PERRLA, EOMI. Hearing is intact. Neck: Supple, no JVD. Heart: Normal S1 and S2. There is a 2/6 systolic murmur. Lungs: Clear to auscultation anteriorly. Abdomen: Normal bowel sound, soft, nontender, no guarding or rebound. Extremities: No significant edema, right femoral dialysis catheter Neurologic: No focal neurologic deficits. Assessment & Plan Assessment/Plan (1) DAVIS (acute kidney injury): PLAN: The patient also likely has underlying chronic kidney disease with serum creatinine of around 1.2 to 1.5 mg/dL at baseline (serum creatinine was 1.46 mg/dL on 01/23/2022). I suspect that the patient has diabetic kidney disease or nephrosclerosis from hypertension/PAD. DAVIS is due to severe prerenal azotemia due to circulatory shock made worse by concurrent use of diuretic and ARB prior to admission. Prerenal DAVIS has likely progressed to ischemic ATN. Renal ultrasound did not show any evidence of obstructive nephropathy. Remains oliguric, urine analysis due to some protein In September, serum protein electrophoresis, ANCA antibodies are negative C3, C4 pending will maintain TTS schedule for dialysis will need tunneled dialysis line since he has a femoral line in place surgery to be consulted today (2) Acute hyperkalemia: PLAN: Resolved. Hyperkalemia was secondary to DAVIS, acidosis, ARB, spironolactone, and potassium supplementation. Potassium level was 6.7 mmol/L on presentation. . (3) Metabolic acidosis: PLAN: Resolved. Serum bicarbonate level was 16 mmol/L on presentation. Metabolic acidosis was likely due to DAVIS along with diarrhea prior to presentation. (4) Shock circulatory: PLAN: Improving. Off vasopressor (5) Ischemic cardiomyopathy: PLAN: The patient has a history of CAD status post CABG and PCI to the graft to right coronary artery. He also has a history of heart failure with reduced ejection fraction with EF of 35%. BP borderline. we had to use levophed for fluid removal yesterday. may have to use some midodrine with HD next time.
[2022-03-07] MEDS: Juven (unflavored) Packet 1 PACKET PO (16:18)
[2022-03-07 16:40] LABS: Bedside Glucose 186 mg/dL (74-106)
[2022-03-07] MEDS: Insulin NPH Human 100 UNITS/ML PEN SC (22:00)
[2022-03-07] MEDS: Pantoprazole Sodium 40 MG Tablet PO (22:01)
[2022-03-07] MEDS: Atorvastatin Calcium 80 MG Tablet PO (22:01)
[2022-03-07] MEDS: MELATONIN 3 MG TABLET PO (22:06)
[2022-03-07 22:31] LABS: Bedside Glucose 156 mg/dL (74-106)
[2022-03-08] VITALS (26 sets, daily range): BP systolic 84–130; BP diastolic 50–105; PULSE 87–123; RESP 11–30; TEMP 36.5–37.3; O2SAT 95–100
[2022-03-08] MEDS: Menthol/Lanolin/Calamine/Znox 113 GM Tube 1 APPLIC TOPICAL ×3 (06:24→20:58)
[2022-03-08 08:04] LABS: Absolute Lymphocyte Count 0.35 X10^3/uL (0.83-4.51); Basophil# 0.03 X10^3/uL; Basophil% 0.3 % (0-1); Eosinophil# 0.23 X10^3/uL; Eosinophils% 2.5 % (0-5); Hematocrit 25.3 % (40-54); Lymphocyte # 0.35 X10^3/ul (0.83-4.51); Lymphocyte % 3.8 % (19-41); Mean Corp Hgb Conc 31.6 g/dL (32-36); Mean Corpuscular Hgb 30.3 pg (27.0-32.0); Mean Corpuscular Volume 95.8 fL (80-94); Mean Platelet Vol. 11.4 fl (6.2-12.0); Monocyte# 0.61 X10^3/uL; Monocyte% 6.6 % (0-10); NRBC Flagged by Analyzer 0 % (0-5); Neutrophil # 7.98 X10^3/uL (2.7-7.7); Neutrophil % 86.2 % (47-70); POSITIVE COUNT YES; POSITIVE DIFFERENTIAL YES; Platelet Count 76 K/mm3 (150-450); RBC Distribution Width CV 15.2 % (11.6-14.6); RBC Distribution Width SD 53.8 fl (35.1-43.9); Red Blood Count 2.64 M/mm3 (4.6-6.2); White Blood Count 9.3 K/mm3 (4.4-11.0)
[2022-03-08 08:05] LABS: Bedside Glucose 95 mg/dL (74-106)
[2022-03-08 08:07] LABS: Anion Gap 7 (5-15); BUN 60 mg/dL (7-18); BUN/Creat Ratio 10.8 RATIO (10-20); Calcium,Total 8.4 mg/dL (8.5-10.1); Chloride 102 mmol/L (98-107); Creatinine, Serum 5.54 mg/dL (0.70-1.30); EST Glomerular Filtration Rate 11 mL/min (>60); Est Glom Filt Rate - Afr Amer 13 mL/min (>60); Estimated Creatinine Clearance 10.61 ml/min; Glucose 93 mg/dL (74-106); Potassium 3.9 mmol/L (3.5-5.1); Sodium Level 138 mmol/L (136-145)
[2022-03-08 08:08] LABS: Differential Indicated SCAN CRITERIA MET
[2022-03-08 08:30] LABS: Differential Comment SCANNED; Platelet Estimate MOD DEC (ADEQ)
--- NOTE | 2022-03-08 08:48 | PCM.PN.SRG ---
Subjective Subjective Patient is maintaining BP off vasopressors. Patient was beginning dialysis at time of exam, he is on a TTS schedule. Surgery has been consulted to place tunneled dialysis catheter so right femoral dialysis catheter can be removed. Infection is improving overall. Per podiatry, wounds are stable. Patient reports no constitutional symptoms, states he feels okay. Objective Data Objective Data Vital Signs: Vital Signs Temp Pulse Resp BP Pulse Ox O2 Del Method O2 Flow Rate 97.7 F L 108 H 25 H 121/54 H 95 Nasal Cannula 2 03/08/22 08:00 03/08/22 08:00 03/08/22 08:00 03/08/22 08:00 03/08/22 08:00 03/08/22 08:00 03/08/22 08:00 FiO2 2 03/04/22 13:00 Oxygen Flow Rate (L/min) 2 Oxygen Delivery Method Nasal Cannula Weight: 180 lb 5.41 oz Body Mass Index (BMI) 26.0 Intake & Output: Intake and Output for Last 24 Hours 03/06/22 03/07/22 03/08/22 23:59 23:59 23:59 Intake Total 947.38 / 948.33 762.35 / 762.35 50 / 50 Output Total 3110 / 3110 100 / 100 40 / 40 Balance -2162.62 / -2161.67 662.35 / 662.35 Lab / Micro Data Result Diagrams: 03/08/22 07:45 03/08/22 07:45 Labs: Laboratory Results - last 24 hr 03/07/22 11:21: POC Glucose 227 H 03/07/22 16:10: POC Glucose 186 H 03/07/22 21:55: POC Glucose 156 H 03/08/22 07:45: WBC 9.3, RBC 2.64 L, Hgb 8.0 L, Hct 25.3 L, MCV 95.8 H, MCH 30.3, MCHC 31.6 L, RDW Std Deviation 53.8 H, RDW Coeff of Nguyen 15.2 H, Plt Count 76 L, MPV 11.4, Immature Gran % (Auto) 0.600, Neut % (Auto) 86.2 H, Lymph % (Auto) 3.8 L, [place] % (Auto) 6.6, Eos % (Auto) 2.5, Baso % (Auto) 0.3, Absolute Neuts (auto) 8.0 H, Absolute Lymphs (auto) 0.35 L, Nucleated RBC % 0, Differential Comment SCANNED, Platelet Estimate MOD DEC 03/08/22 07:45: Sodium 138, Potassium 3.9, Chloride 102, Carbon Dioxide 29.0, Anion Gap 7, BUN 60 H, Creatinine 5.54 H, Estim Creat Clear Calc 10.61, Est GFR (MDRD) Af Amer 13 L, Est GFR (MDRD) Non-Af 11 L, BUN/Creatinine Ratio 10.8, Glucose 93, Calcium 8.4 L 03/08/22 07:45: POC Glucose 95 Micro: Microbiology 03/02/22 08:05 Blood Culture (Wb) - Neck Blood Culture - Final No growth in 5 days. 03/02/22 08:10 Blood Culture (Wb) - Right Forearm Blood Culture - Final No growth in 5 days. 03/04/22 09:40 Stool Stool Occult Blood (CANDIDA) - Final Occult Blood Positive 03/02/22 18:20 Stool C. difficile DNA Amplification - Final 03/01/22 21:30 Mucosa - Nasopharyngeal Respiratory Panel (PCR) - Final 03/01/22 22:00 Urine Catheter - Catheter Legionella Antigen - Final 03/01/22 22:00 Urine Catheter - Catheter Streptococcus pneumoniae Antigen (M - Final Radiography Diagnostic Testing: Extremity Arterial Study 03/01/22: Interpretation Summary Right ERBECCA 0.43, severe arterial insufficiency. Doppler/PVR waveforms and segmental pressures reveal distal SFA/popliteal disease. Left REBECCA 0.61, moderate arterial insufficiency. Doppler/PVR waveforms and segmental pressures reveal distal SFA/popliteal, infrapopliteal disease. Rhythm Strip Rhythm Strip: Sinus Rhythm Physical Exam Const alert, oriented x3 and no apparent distress General Appearance: cooperative HEENT normocephalic, head/scalp atraumatic, hearing grossly normal bilaterally and external nose normal Eyes PERRL and EOMs intact bilaterally General Eye: normal appearance of both eyes Neck full ROM General: trachea midline Resp normal respiratory effort Effort and Inspection: Negative for respiratory distress, stridor or audible wheezes Cardio regular rate and regular rhythm Extremity Peripheral Pulses: Negative for femoral pulses present or popliteal pulses present Skin Wounds: wounds noted Wound Narrative: Multiple wounds on bilateral lower extremities, dressings in place were not removed for exam Neuro oriented x3, CN's II-XII intact bilaterally and moves all extremities Psych mental status grossly normal Appearance: grossly normal Speech: normal speech Assessment & Plan Assessment/Plan (1) Peripheral vascular disease, unspecified: PLAN: Plan Patient and wounds are currently stable enough to pursue angiographic evaluation/possible intervention prior to podiatric surgical intervention. Angiogram currently scheduled for Saturday, will move forward with this as long tunneled dialysis catheter is able to be placed and right femoral line removed. Additionally, pending rescheduling of dialysis for Saturday next week instead of Saturday. Charges/Coding Visit Charges Inpatient E&M: 03449 Subs Hosp L1
--- NOTE | 2022-03-08 08:51 | PN.HOSP_ITS ---
Subjective Subjective Doing well, no issues overnight. Getting dialysis again today he has been needing intermittent Levophed on his dialysis days so we will monitor Objective Data Objective Data Vital Signs: Vital Signs Temp Pulse Resp BP Pulse Ox O2 Del Method O2 Flow Rate 97.7 F L 108 H 25 H 121/54 H 95 Nasal Cannula 2 03/08/22 08:00 03/08/22 08:00 03/08/22 08:00 03/08/22 08:00 03/08/22 08:00 03/08/22 08:00 03/08/22 08:00 FiO2 2 03/04/22 13:00 Oxygen Flow Rate (L/min) 2 Oxygen Delivery Method Nasal Cannula Weight: 180 lb 5.41 oz Body Mass Index (BMI) 26.0 Intake & Output: Intake and Output for Last 24 Hours 03/07/22 03/08/22 03/09/22 03:59 03:59 03:59 Intake Total 959.73 / 959.73 750 / 750 Output Total 3110 / 3120 100 / 100 40 / 40 Balance -2150.27 / -2160.27 650 / 650 -40 / -40 Lab / Micro Data Result Diagrams: 03/08/22 07:45 03/08/22 07:45 Labs: Laboratory Results - last 24 hr 03/07/22 11:21: POC Glucose 227 H 03/07/22 16:10: POC Glucose 186 H 03/07/22 21:55: POC Glucose 156 H 03/08/22 07:45: WBC 9.3, RBC 2.64 L, Hgb 8.0 L, Hct 25.3 L, MCV 95.8 H, MCH 30.3, MCHC 31.6 L, RDW Std Deviation 53.8 H, RDW Coeff of Nguyen 15.2 H, Plt Count 76 L, MPV 11.4, Immature Gran % (Auto) 0.600, Neut % (Auto) 86.2 H, Lymph % (Aut o) 3.8 L, [place] % (Auto) 6.6, Eos % (Auto) 2.5, Baso % (Auto) 0.3, Absolute Neuts (auto) 8.0 H, Absolute Lymphs (auto) 0.35 L, Nucleated RBC % 0, Differential Comment SCANNED, Platelet Estimate MOD DEC 03/08/22 07:45: Sodium 138, Potassium 3.9, Chloride 102, Carbon Dioxide 29.0, Anion Gap 7, BUN 60 H, Creatinine 5.54 H, Estim Creat Clear Calc 10.61, Est GFR (MDRD) Af Amer 13 L, Est GFR (MDRD) Non-Af 11 L, BUN/Creatinine Ratio 10.8, Glucose 93, Calcium 8.4 L 03/08/22 07:45: POC Glucose 95 Micro: Microbiology 03/02/22 08:05 Blood Culture (Wb) - Neck Blood Culture - Final No growth in 5 days. 03/02/22 08:10 Blood Culture (Wb) - Right Forearm Blood Culture - Final No growth in 5 days. 03/04/22 09:40 Stool Stool Occult Blood (CANDIDA) - Final Occult Blood Positive 03/02/22 18:20 Stool C. difficile DNA Amplification - Final 03/01/22 21:30 Mucosa - Nasopharyngeal Respiratory Panel (PCR) - Final 03/01/22 22:00 Urine Catheter - Catheter Legionella Antigen - Final 03/01/22 22:00 Urine Catheter - Catheter Streptococcus pneumoniae Antigen (M - Final Rhythm Strip Rhythm Strip: Sinus Rhythm Physical Exam Narrative General: Alert, Oriented x3, Cooperative, No apparent distress HEENT: Atraumatic, PERRLA, EOMI, Normocephalic Oral: Moist Mucosa Neck: Supple, No JVD Lungs: Diminished, Normal air movement, No rhonchi, No wheeze, No rales Cardiovascular: Regular rate, Regular Rhythm, Normal S1, Normal S2, murmurs Abdomen: Soft, Non Tender, Non-Distended, No Hepato-splenomegaly Extremities: Edema, Capillary Refill Less than 3 Seconds Skin: Legs are currently wrapped evidence of skin breakdown Musculoskeletal: No Tenderness to Palpation of Joints or Extremities Neurological: Cranial nerves II-XII grossly intact, Motor Exam 5/5 strength throughout, Sensory exam intact to light touch and pain Psych/Mental Status: Normal Affect, Appropriate Assessment & Plan Assessment/Plan (1) Septic shock: PLAN: Plan 1. 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 Appreciate podiatry ? Continue with infectious disease recommendations, Zosyn, wound cultures are polymicrobial ? Continue with ICU care given his need for Levophed intermittently for dialysis ? He is currently on dialysis for his DAVIS he does not normally have dialysis at home. Appreciate nephrology's assistance ? We will monitor his blood sugars and adjust as necessary ? Appreciate vascular surgery's assistance and will be for tunneled dialysis catheter followed by vascular intervention followed by midfoot amputation by podiatry 2. Paroxysmal A. fib/CAD status post CABG and stent/pulmonary hypertension/moderate aortic stenosis/chronic systolic CHF ? Currently on Coumadin for his A. fib, will hold while here for possible surgery and debridement ? Can continue with aspirin, Lipitor ? We will hold any blood pressure medication secondary to his hypotension 3. Anemia with Hemoccult positive stools from a rectal bleed ? Continue with PPI and will transfuse as necessary ? We will avoid anticoagulation at this time but will have GI see if we continue to have problems controlling his hemoglobin, does appear that his rectal bleeding has been a chronic problem DVT: SCDs Charges/Coding Visit Charges Inpatient E&M: 09777 Subs Hosp L2
[2022-03-08] MEDS: Midodrine HCl 5 MG Tablet 10 MG PO (09:01)
[2022-03-08] MEDS: Juven (unflavored) Packet 1 PACKET PO ×2 (09:01→17:07)
[2022-03-08] MEDS: 0.9% Saline Lock 10 ML Syringe IV (09:01)
[2022-03-08] MEDS: CHLORHEXIDINE GLUC 2% CLOTH 1 EACH TOWELETTE TOPICAL (09:03)
--- NOTE | 2022-03-08 11:35 | PCM.PN.REN ---
Subjective Subjective Seen on dialysis, tolerating treatment well. Reports poor appetite and having diarrhea Objective Data Objective Data Vital Signs: Vital Signs Temp Pulse Resp BP Pulse Ox O2 Del Method O2 Flow Rate 98.0 F 115 H 25 H 102/58 L 100 Nasal Cannula 2 03/08/22 10:00 03/08/22 11:00 03/08/22 11:00 03/08/22 11:00 03/08/22 11:00 03/08/22 11:24 03/08/22 11:24 FiO2 2 03/04/22 13:00 Oxygen Flow Rate (L/min) 2 Oxygen Delivery Method Nasal Cannula Weight: 81.8 kg Body Mass Index (BMI) 26.0 Intake & Output: Intake and Output for Last 24 Hours 03/06/22 03/07/22 03/08/22 23:59 23:59 23:59 Intake Total 947.38 / 948.33 762.35 / 762.35 410 / 410 Output Total 3110 / 3110 100 / 100 40 / 40 Balance -2162.62 / -2161.67 662.35 / 662.35 370 / 370 Lab / Micro Data Result Diagrams: 03/08/22 07:45 03/08/22 07:45 Labs: Laboratory Results - last 24 hr 03/07/22 11:21: POC Glucose 227 H 03/07/22 16:10: POC Glucose 186 H 03/07/22 21:55: POC Glucose 156 H 03/08/22 07:45: WBC 9.3, RBC 2.64 L, Hgb 8.0 L, Hct 25.3 L, MCV 95.8 H, MCH 30.3, MCHC 31.6 L, RDW Std Deviation 53.8 H, RDW Coeff of Nguyen 15.2 H, Plt Count 76 L, MPV 11.4, Immature Gran % (Auto) 0.600, Neut % (Auto) 86.2 H, Lymph % (Auto) 3.8 L, [place] % (Auto) 6.6, Eos % (Auto) 2.5, Baso % (Auto) 0.3, Absolute Neuts (auto) 8.0 H, Absolute Lymphs (auto) 0.35 L, Nucleated RBC % 0, Differential Comment SCANNED, Platelet Estimate MOD DEC 03/08/22 07:45: Sodium 138, Potassium 3.9, Chloride 102, Carbon Dioxide 29.0, Anion Gap 7, BUN 60 H, Creatinine 5.54 H, Estim Creat Clear Calc 10.61, Est GFR (MDRD) Af Amer 13 L, Est GFR (MDRD) Non-Af 11 L, BUN/Creatinine Ratio 10.8, Glucose 93, Calcium 8.4 L 03/08/22 07:45: POC Glucose 95 Micro: Microbiology 03/02/22 08:05 Blood Culture (Wb) - Neck Blood Culture - Final No growth in 5 days. 03/02/22 08:10 Blood Culture (Wb) - Right Forearm Blood Culture - Final No growth in 5 days. 03/04/22 09:40 Stool Stool Occult Blood (CANDIDA) - Final Occult Blood Positive 03/02/22 18:20 Stool C. difficile DNA Amplification - Final 03/01/22 21:30 Mucosa - Nasopharyngeal Respiratory Panel (PCR) - Final 03/01/22 22:00 Urine Catheter - Catheter Legionella Antigen - Final 03/01/22 22:00 Urine Catheter - Catheter Streptococcus pneumoniae Antigen (M - Final Rhythm Strip Rhythm Strip: Sinus Rhythm Physical Exam Narrative General: Alert and oriented x3, NAD. HEENT: Normocephalic, atraumatic. Mucous membrane dry Neck: Supple, no JVD. Heart: Normal S1 and S2. There is a 2/6 systolic murmur. Lungs: Clear to auscultation anteriorly. Abdomen: Normal bowel sounds, soft, nontender, no guarding or rebound. Extremities: No significant edema, right femoral dialysis catheter accessed for dialysis. Dressings C/D/I to b/l feet Assessment & Plan Assessment/Plan (1) DAVIS (acute kidney injury): PLAN: The patient likely has underlying chronic kidney disease with serum creatinine of around 1.2 to 1.5 mg/dL at baseline (serum creatinine was 1.46 mg/dL on 01/23/2022). I suspect that the patient has diabetic kidney disease or nephrosclerosis from hypertension/PAD. DAVIS is due to severe prerenal azotemia due to circulatory shock made worse by concurrent use of diuretic and ARB prior to admission. Prerenal DAVIS has likely progressed to ischemic ATN. So far no noted renal recovery at this time. SCr 5.54mg/dL this am pre-HD Renal ultrasound did not show any evidence of obstructive nephropathy. Remains oliguric, UOP 100ml yesterday (patient has whalen) In September, serum protein electrophoresis, ANCA antibodies are negative C3 slightly low at 76, normal C4. will maintain TTS schedule for dialysis for this week will need tunneled dialysis line since he has a femoral line in place and will need outpatient dialysis arrangements (2) Acute hyperkalemia: PLAN: Resolved. Hyperkalemia was secondary to DAVIS, acidosis, ARB, spironolactone, and potassium supplementation. Potassium level was 6.7 mmol/L on presentation. . (3) Metabolic acidosis: PLAN: Resolved. Serum bicarbonate level was 16 mmol/L on presentation. Metabolic acidosis was likely due to DAVIS along with diarrhea prior to presentation. (4) Shock circulatory: PLAN: Improving. Off vasopressor (5) Ischemic cardiomyopathy: PLAN: The patient has a history of CAD status post CABG and PCI to the graft to right coronary artery. He also has a history of heart failure with reduced ejection fraction with EF of 35%. BP borderline especially during dialysis and we had to use levophed for fluid removal previous HD treatments, no levophed today but patient did receive midodrine pre-HD today. UF today ~1L.
--- NOTE | 2022-03-08 12:19 | DIALYSIS ---
Hemodialysis tx completed x 3.5 hours without complications. Pt tolerated tx fair, fluid removed 1,800ml using crit-line monitor. Vitals stable throughout. Verbal report given to KALEB Colon post tx
[2022-03-08] MEDS: Heparin 10,000 UNITS/10 ML Vial IV (12:25)
[2022-03-08] MEDS: Pantoprazole Sodium 40 MG Tablet PO ×2 (12:25→20:56)
[2022-03-08] MEDS: Aspirin E.C. 81 MG Tablet PO (12:25)
[2022-03-08] MEDS: Insulin Lispro 100 UNIT/ML INSULN.PEN SC ×2 (12:33→20:58)
--- NOTE | 2022-03-08 12:44 | EX.PCM.CON.S ---
Assessment & Plan Assessment/Plan (1) Acute renal failure (ARF): QUALIFIERS: Acute renal failure type: unspecified Qualified Code(s): N17.9 - Acute kidney failure, unspecified PLAN: The patient requires movement of the dialysis catheter out of the groin. He currently has a triple-lumen catheter in the left IJ and the right IJ was too small to be accessed. The patient is off pressors and does have a peripheral IV and so I recommended that the patient's left IJ triple-lumen be removed, and I will attempt a tunneled dialysis catheter on the left chest tomorrow. I discussed this with the patient in detail. I discussed the risks including not limited to bleeding, infection, pneumothorax or line infection. Patient or stands the risks and is willing to proceed. After the new catheter is in and functioning the groin catheter may be removed. Tono Higginbotham MD Pager: [facility] [address] [place] [address], [address] [place] [address] Office: HPI Consult Data Date of Consult: 03/08/22 HPI Narrative HPI Narrative: FRANCISCO DUBOSE, is a 76 M who is admitted for ulcers and renal failure. I was consulted for a tunneled dialysis catheter as the patient needs percutaneous intervention through the groin he has a groin temporary catheter at this time. [facility]LY [facility] Medical History Acute on chronic systolic (congestive) heart failure Alcohol abuse Atherosclerosis of coronary artery bypass graft without angina pectoris Atrial fibrillation Bilateral lower extremity edema CAD (coronary artery disease) Cardiac dysrhythmia Cardiomyopathy Chronic systolic congestive heart failure Chronic ulcer of toe of left foot with fat layer exposed Congestive heart failure Elevated troponin Essential (primary) hypertension GERD (gastroesophageal reflux disease) Heavy alcohol use HLD (hyperlipidemia) Implantable cardioverter-defibrillator (ICD) at end of battery life Ischemic cardiomyopathy residential current use of amiodarone residential current use of 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 Non-rheumatic tricuspid valve insufficiency NSTEMI (non-ST elevated myocardial infarction) 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 RITESH (obstructive sleep apnea) Paroxysmal atrial fibrillation Paroxysmal atrial fibrillation with rapid ventricular response Paroxysmal atrial flutter Peripheral vascular disease Pleural effusion Secondary pulmonary arterial hypertension Skin ulcer of left great toe with fat layer exposed Sleep apnea Type 2 diabetes mellitus Type 2 diabetes mellitus Ulcer of left lower extremity with fat layer exposed Ulcer of right foot with fat layer exposed Ulcer of right lower extremity with fat layer exposed Ventricular tachycardia Home Medications aspirin 81 mg tablet,delayed release 81 mg PO DAILY heart health 09/19/18 [History Last Taken 03/01/22] Handicap Placard #1 ea 08/28/19 [Rx Last Taken Unknown] atorvastatin 80 mg tablet 80 mg PO QHS #90 tabs 05/23/21 [Rx Last Taken 02/28/22] Novolin N Flexpen 5 units QHS diabetes 11/03/21 [History Last Taken 02/28/22] Novolin N Flexpen 12 units DAILY daily 11/03/21 [History Last Taken 02/28/22] [facility]in [facility] 2 mg PO DINNER #0 tabs 11/06/21 [Rx Last Taken 02/26/22] omeprazole 20 mg capsule,delayed release 20 mg PO DAILY PRN acid reflux 11/14/21 [History Last Taken 02/01/22] ascorbic acid (vitamin C) 500 mg tablet 500 mg PO DAILY 01/01/22 [History Last Taken 03/01/22] cholecalciferol (vitamin D3) 25 mcg (1,000 unit) capsule 25 mcg PO DAILY 01/01/22 [History Last Taken Unknown] potassium chloride 20 mEq tablet,extended release 20 meq PO DAILY 01/24/22 [History Last Taken 03/01/22] metoprolol succinate 100 mg tablet,extended release 24 hr 100 mg PO BID #180 tabs 02/05/22 [Rx Last Taken 02/27/22] furosemide 40 mg tablet 40 mg PO BID 02/28/22 [History Last Taken 03/01/22] spironolactone 25 mg tablet 25 mg PO DAILY #30 tabs 02/28/22 [Rx Last Taken 03/01/22] ciprofloxacin HCl 750 mg tablet 750 mg PO BID INFECTION 03/01/22 [History Last Taken 03/01/22] doxycycline hyclate 100 mg tablet 100 mg PO BID INFECTION 03/01/22 [History Last Taken 03/01/22] losartan 25 mg tablet 25 mg PO DAILY HTN 03/01/22 [History Last Taken 02/28/22] Allergy/AdvReac Type Severity Reaction Status Date / Time amiodarone AdvReac Shortness Verified 03/01/22 13:28 of breath lisinopril AdvReac cough Verified 03/01/22 13:28 Family History (Updated 03/01/22 @ 21:[address] Lor Lazaro MD) Mother Bleeding in brain due to brain aneurysm Father History of aneurysm of peripheral artery Surgical History H/O coronary artery bypass surgery (1997) History of coronary artery stent placement (01/2016) History of implantable cardiac defibrillator (ICD) (02/11/20) History of thoracentesis Hx of CABG S/P PTCA (percutaneous transluminal coronary angioplasty) Social History household members: spouse Smoking Status: Never smoker alcohol intake: current alcohol intake frequency: a few times a week Alcohol type: beer substance use type: does not use caffeine: Yes Type: coffee Number of servings: 2 what type of physical activity do you participate in: none seatbelt use: never do you feel safe at home: Yes ROS Constitutional Constitutional: Denies anorexia or fatigue Eyes Eyes: Denies blurry vision ENT HEENT: Denies abnormal hearing Cardiovascular Cardiovascular: Reports dyspnea on exertion; Denies abdominal pain or chest pain with activity Respiratory/Chest Respiratory/Chest: Reports dyspnea on exertion; Denies change in phlegm color or nail bed cyanosis Physical Exam Const alert and oriented x3 HEENT normocephalic Resp normal respiratory effort Cardio Rate: tachycardic GI soft to palpation and non-tender Bladder / Kidney Exam: catheter in place Lab / Micro Data Result Diagrams: 03/08/22 07:45 03/08/22 07:45 Labs: Laboratory Results - last 24 hr 03/07/22 16:10: POC Glucose 186 H 03/07/22 21:55: POC Glucose 156 H 03/08/22 07:45: WBC 9.3, RBC 2.64 L, Hgb 8.0 L, Hct 25.3 L, MCV 95.8 H, MCH 30.3, MCHC 31.6 L, RDW Std Deviation 53.8 H, RDW Coeff of Nguyen 15.2 H, Plt Count 76 L, MPV 11.4, Immature Gran % (Auto) 0.600, Neut % (Auto) 86.2 H, Lymph % (Auto) 3.8 L, [place] % (Auto) 6.6, Eos % (Auto) 2.5, Baso % (Auto) 0.3, Absolute Neuts (auto) 8.0 H, Absolute Lymphs (auto) 0.35 L, Nucleated RBC % 0, Differential Comment SCANNED, Platelet Estimate MOD DEC 03/08/22 07:45: Sodium 138, Potassium 3.9, Chloride 102, Carbon Dioxide 29.0, Anion Gap 7, BUN 60 H, Creatinine 5.54 H, Estim Creat Clear Calc 10.61, Est GFR (MDRD) Af Amer 13 L, Est GFR (MDRD) Non-Af 11 L, BUN/Creatinine Ratio 10.8, Glucose 93, Calcium 8.4 L 03/08/22 07:45: POC Glucose 95 Micro: Microbiology 03/02/22 08:05 Blood Culture (Wb) - Neck Blood Culture - Final No growth in 5 days. 03/02/22 08:10 Blood Culture (Wb) - Right Forearm Blood Culture - Final No growth in 5 days. Rhythm Strip Rhythm Strip: Sinus Rhythm
[2022-03-08 12:55] LABS: Bedside Glucose 150 mg/dL (74-106)
[2022-03-08 16:41] LABS: Bedside Glucose 147 mg/dL (74-106)
[2022-03-08] MEDS: QUEtiapine 25 MG Tablet PO (20:14)
[2022-03-08] MEDS: Atorvastatin Calcium 80 MG Tablet PO (20:56)
[2022-03-08] MEDS: Insulin NPH Human 100 UNITS/ML PEN SC (20:58)
[2022-03-08 21:31] LABS: Bedside Glucose 233 mg/dL (74-106)
[2022-03-09] VITALS (42 sets, daily range): BP systolic 79–124; BP diastolic 46–79; PULSE 86–142; RESP 12–29; TEMP 36.2–37.1; O2SAT 96–100; BMI 28.2
[2022-03-09] MEDS: 0.9% Saline Lock 10 ML Syringe IV ×5 (01:16→11:02)
[2022-03-09] MEDS: dilTIAZem 25 MG/5 ML Vial 5 MG IV BOLUS (02:27)
[2022-03-09 03:46] LABS: Anion Gap 8 (5-15); BUN 52 mg/dL (7-18); BUN/Creat Ratio 12.4 RATIO (10-20); Calcium,Total 8.6 mg/dL (8.5-10.1); Chloride 102 mmol/L (98-107); Creatinine, Serum 4.18 mg/dL (0.70-1.30); EST Glomerular Filtration Rate 15 mL/min (>60); Est Glom Filt Rate - Afr Amer 18 mL/min (>60); Estimated Creatinine Clearance 14.06 ml/min; Glucose 172 mg/dL (74-106); Sodium Level 135 mmol/L (136-145)
[2022-03-09 03:47] LABS: Magnesium 1.9 mg/dL (1.6-2.6)
[2022-03-09 03:49] LABS: Absolute Lymphocyte Count 0.47 X10^3/uL (0.83-4.51); Absolute Neutrophil Count 8.1 X10^3/uL (2.0-7.7); Basophil# 0.03 X10^3/uL; Basophil% 0.3 % (0-1); Eosinophil# 0.16 X10^3/uL; Eosinophils% 1.7 % (0-5); Hematocrit 24.8 % (40-54); Hemoglobin 7.6 g/dL (13.0-16.5); Lymphocyte # 0.47 X10^3/ul (0.83-4.51); Mean Corp Hgb Conc 30.6 g/dL (32-36); Mean Corpuscular Hgb 29.7 pg (27.0-32.0); Mean Corpuscular Volume 96.9 fL (80-94); Mean Platelet Vol. 11.8 fl (6.2-12.0); Monocyte# 0.64 X10^3/uL; Monocyte% 6.8 % (0-10); NRBC Flagged by Analyzer 0 % (0-5); Neutrophil % 85.6 % (47-70); POSITIVE COUNT YES; POSITIVE DIFFERENTIAL YES; Platelet Count 87 K/mm3 (150-450); RBC Distribution Width CV 15.2 % (11.6-14.6); RBC Distribution Width SD 53.1 fl (35.1-43.9); Red Blood Count 2.56 M/mm3 (4.6-6.2); White Blood Count 9.5 K/mm3 (4.4-11.0)
[2022-03-09 04:03] LABS: Differential Indicated SCAN CRITERIA MET
[2022-03-09 04:10] LABS: International Normalized Ratio 1.4; Partial Thromboplast Time 36.1 Seconds (24.1-36.2); Prothrombin Time (Protime)PT. 16.5 SECONDS (11.7-14.9)
[2022-03-09] MEDS: CHLORHEXIDINE GLUC 2% CLOTH 1 EACH TOWELETTE TOPICAL (04:17)
[2022-03-09] MEDS: Menthol/Lanolin/Calamine/Znox 113 GM Tube 1 APPLIC TOPICAL ×3 (04:17→20:57)
[2022-03-09 04:18] LABS: Differential Comment SCANNED
--- NOTE | 2022-03-09 06:27 | EKG12_ITS ---
Test Reason : RHYTHM CHANGES Blood Pressure : / mmHG Vent. Rate : 103 BPM Atrial Rate : 096 BPM P-R Int : 000 ms QRS Dur : 100 ms QT Int : 362 ms P-R-T Axes : 000 008 151 degrees QTc Int : 474 ms Atrial fibrillation with premature ventricular or aberrantly conducted complexes Low voltage QRS Nonspecific ST and T wave abnormality Abnormal ECG Confirmed by YAN SANCHEZ, RAUL ([id number]), advertising editor CHINYERE FIELDS ([id number]) on 03/17/2022 7:45:12 AM Referred By: LAI SINGH Confirmed By:RAUL HEREDIA MD
--- NOTE | 2022-03-09 06:27 | EKG12_ITS ---
Test Reason : RHYTHM CHANGES Blood Pressure : / mmHG Vent. Rate : 107 BPM Atrial Rate : 182 BPM P-R Int : 000 ms QRS Dur : 092 ms QT Int : 362 ms P-R-T Axes : 000 010 150 degrees QTc Int : 483 ms Undetermined rhythm : Consider Atrial Fibrillation with PVC's Low voltage QRS Nonspecific ST and T wave abnormality Abnormal ECG Confirmed by YAN SANCHEZ, RAUL ([id number]), slot editor CHINYERE FIELDS ([id number]) on 03/17/2022 7:44:53 AM Referred By: LAI SINGH Confirmed By:RAUL HEREDIA MD
--- NOTE | 2022-03-09 07:24 | PN_ITS ---
Objective Data Objective Data Vital Signs: Vital Signs Temp Pulse Resp BP Pulse Ox O2 Del Method O2 Flow Rate 98.5 F 107 H 18 102/73 100 Nasal Cannula 2 03/09/22 06:00 03/09/22 06:59 03/09/22 06:59 03/09/22 06:59 03/09/22 06:59 03/09/22 06:59 03/09/22 06:59 FiO2 2 03/04/22 13:00 Oxygen Flow Rate (L/min) 2 Oxygen Delivery Method Nasal Cannula Weight: 80.6 kg Body Mass Index (BMI) 28.2 Intake & Output: Intake and Output for Last 24 Hours 03/07/22 03/08/22 03/09/22 23:59 23:59 23:59 Intake Total 762.35 / 762.35 730 / 730 207.89 / 207.89 Output Total 100 / 100 1855 / 1855 15 / 15 Balance 662.35 / 662.35 -1125 / -1125 192.89 / 192.89 Lab / Micro Data Result Diagrams: 03/09/22 03:40 03/09/22 03:17 Labs: Laboratory Results - last 24 hr 03/08/22 07:45: WBC 9.3, RBC 2.64 L, Hgb 8.0 L, Hct 25.3 L, MCV 95.8 H, MCH 30.3, MCHC 31.6 L, RDW Std Deviation 53.8 H, RDW Coeff of Nguyen 15.2 H, Plt Count 76 L, MPV 11.4, Immature Gran % (Auto) 0.600, Neut % (Auto) 86.2 H, Lymph % (Auto) 3.8 L, [place] % (Auto) 6.6, Eos % (Auto) 2.5, Baso % (Auto) 0.3, Absolute Neuts (auto) 8.0 H, Absolute Lymphs (auto) 0.35 L, Nucleated RBC % 0, Differential Comment SCANNED, Platelet Estimate MOD DEC 03/08/22 07:45: Sodium 138, Potassium 3.9, Chloride 102, Carbon Dioxide 29.0, Anion Gap 7, BUN 60 H, Creatinine 5.54 H, Estim Creat Clear Calc 10.61, Est GFR (MDRD) Af Amer 13 L, Est GFR (MDRD) Non-Af 11 L, BUN/Creatinine Ratio 10.8, Glucose 93, Calcium 8.4 L 03/08/22 07:45: POC Glucose 95 03/08/22 12:32: POC Glucose 150 H 03/08/22 16:20: POC Glucose 147 H 03/08/22 20:57: POC Glucose 233 H 03/09/22 03:17: Sodium 135 L, Potassium 4.0, Chloride 102, Carbon Dioxide 25.0, Anion Gap 8, BUN 52 H, Creatinine 4.18 H, Estim Creat Clear Calc 14.06, Est GFR (MDRD) Af Amer 18 L, Est GFR (MDRD) Non-Af 15 L, BUN/Creatinine Ratio 12.4, Glucose 172 H, Calcium 8.6 03/09/22 03:17: Magnesium 1.9 03/09/22 03:40: WBC 9.5, RBC 2.56 L, Hgb 7.6 L, Hct 24.8 L, MCV 96.9 H, MCH 29.7, MCHC 30.6 L, RDW Std Deviation 53.1 H, RDW Coeff of Nguyen 15.2 H, Plt Count 87 L, MPV 11.8, Immature Gran % (Auto) 0.600, Neut % (Auto) 85.6 H, Lymph % (Auto) 5.0 L, [place] % (Auto) 6.8, Eos % (Auto) 1.7, Baso % (Auto) 0.3, Absolute Neuts (auto) 8.1 H, Absolute Lymphs (auto) 0.47 L, Nucleated RBC % 0, Differential Comment SCANNED 03/09/22 03:40: PT 16.5 H, INR 1.4, APTT 36.1 Micro: Microbiology 03/02/22 08:05 Blood Culture (Wb) - Neck Blood Culture - Final No growth in 5 days. 03/02/22 08:10 Blood Culture (Wb) - Right Forearm Blood Culture - Final No growth in 5 days. 03/04/22 09:40 Stool Stool Occult Blood (CANDIDA) - Final Occult Blood Positive 03/02/22 18:20 Stool C. difficile DNA Amplification - Final 03/01/22 21:30 Mucosa - Nasopharyngeal Respiratory Panel (PCR) - Final 03/01/22 22:00 Urine Catheter - Catheter Legionella Antigen - Final 03/01/22 22:00 Urine Catheter - Catheter Streptococcus pneumoniae Antigen (M - Final Rhythm Strip Rhythm Strip: Sinus Rhythm Physical Exam Narrative Neurovascular status unchanged from previous visit. Improved edema to bilateral lower extremity. Less drainage to leg ulcerations. Ischemic ulcerations to the distal tuft of the left second third and first digit appear to be dry and stable at this point. Resolved signs of infection stable ischemic changes to right second digit. Stable ischemic wound to plantar heel bilaterally and plantar fifth metatarsal head bilaterally. Skin is atrophic bilateral. No acute worsening to the feet bilateral- feet and ankles bilateral are stable at this time. 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 Feet are stable at this time with chronic changes. Patient is significant chronic PAD bilateral lower extremity. Vascular surgery/Dr. Santo is following and planning intervention early next week. We will continue to monitor feet until after patient is able to have attempts at revascularization - We will consider further possible podiatric surgical intervention after this. In the meantime we will continue local wound care with dressing changes, offloading, and observe for any acute degeneration of the wound sites. (2) Peripheral vascular disease, unspecified: (3) Non-pressure chronic ulcer of other part of left foot with fat layer exposed: (4) Diabetic infection of right foot:
[2022-03-09 07:42] LABS: Hemoglobin A1c 6.5 % (3.8-5.6)
--- NOTE | 2022-03-09 07:57 | PCM.PN.INT ---
Assessment & Plan Assessment/Plan (1) Septic shock: PLAN: Plan RECOMMENDATIONS: 1. Await for tunneled hemodialysis line 2. Likely not necessary to continue/reinitiate antibiotics 3. Ongoing dialysis support per nephrology recommendations. 4. Continue to monitor H&H daily and transfuse if hemoglobin drops below 7 g/dL. 5. Encourage incentive spirometer use while in bed. 6. Surgical intervention timing/plans per podiatry. 7. We will schedule midodrine IMPRESSIONS: 1. Septic shock The patient presented with sepsis due to infected diabetic foot wounds with acute sepsis related organ dysfunction as evidenced by acute kidney injury and fluid refractory hypotension, necessitating vasopressor support. The patient remains on appropriate antimicrobials. Patient was reinitiated on pressors overnight. However, no recurrent fever or leukocytosis is noted. Will initiate patient on midodrine. 2. Acute kidney injury Most likely prerenal in etiology in the setting of #1. The patient did receive supplemental IV fluids and remains on vasopressor support to maintain hemodynamic stability. Attempts at volume removal with dialysis have been successful recently. The patient will be continued on dialysis support per nephrology recommendations. No significant improvement in urine output following hemodialysis. Patient likely requires a tunneled hemodialysis line. 3. Coagulopathy The patient is maintained on Coumadin on an outpatient basis. The patient is coagulopathic in the setting of sepsis. Agree with holding systemic anticoagulation and monitoring INR daily. In light of the patient's worsening anemia and elevated INR, vitamin K was ultimately administered. Would defer to vascular surgery on reinitiation of anticoagulation. 4. Anemia Hemoglobin is stable at 8.1 g/dL this morning. PPI therapy twice daily will be continued. Continue to monitor blood counts daily and transfuse if hemoglobin drops below 7 g/dL. Continue to hold systemic anticoagulation. 5. History of ischemic cardiomyopathy/paroxysmal atrial fibrillation/anemia/diabetes mellitus/GERD/RITESH Complicates care, management, recovery and prognosis. Continue to hold Coumadin and antihypertensives. The patient will be maintained on sliding scale insulin coverage. Patient with ongoing issues including chronic dialysis, potential revascularization and diabetic foot wounds, but critical care issues appear to be controlled at this time. TIME: 32 minutes critical care time spent addressing patient septic shock, acute kidney injury, hypotension, peripheral vascular disease, review of all data and collaboration with care team Subjective Subjective Asked to evaluate the patient this morning secondary to initiation of pressors overnight. Patient did have increased A. fib with RVR. Patient was placed on pressors and then subsequently had a dose of Cardizem. Patient reportedly had significant confusion overnight, but this morning is appropriate. Patient reports frustration with still being in the hospital, but is not reporting pain at this time. Objective Data Objective Data Vital Signs: Vital Signs Temp Pulse Resp BP Pulse Ox O2 Del Method O2 Flow Rate 36.9 C 107 H 18 102/73 100 Nasal Cannula 2 03/09/22 06:00 03/09/22 06:59 03/09/22 06:59 03/09/22 06:59 03/09/22 06:59 03/09/22 06:59 03/09/22 06:59 FiO2 2 03/04/22 13:00 Oxygen Flow Rate (L/min) 2 Oxygen Delivery Method Nasal Cannula Weight: 80.6 kg Body Mass Index (BMI) 28.2 Intake & Output: Intake and Output for Last 24 Hours 03/07/22 03/08/22 03/09/22 23:59 23:59 23:59 Intake Total 762.35 / 762.35 730 / 730 207.89 / 207.89 Output Total 100 / 100 1855 / 1855 15 / 15 Balance 662.35 / 662.35 -1125 / -1125 192.89 / 192.89 Lab / Micro Data Attestation: I reviewed the patient's lab results. Result Diagrams: 03/09/22 03:40 03/09/22 03:17 Labs: Laboratory Results - last 24 hr 03/08/22 07:45: WBC 9.3, RBC 2.64 L, Hgb 8.0 L, Hct 25.3 L, MCV 95.8 H, MCH 30.3, MCHC 31.6 L, RDW Std Deviation 53.8 H, RDW Coeff of Nguyen 15.2 H, Plt Count 76 L, MPV 11.4, Immature Gran % (Auto) 0.600, Neut % (Auto) 86.2 H, Lymph % (Auto) 3.8 L, [place] % (Auto) 6.6, Eos % (Auto) 2.5, Baso % (Auto) 0.3, Absolute Neuts (auto) 8.0 H, Absolute Lymphs (auto) 0.35 L, Nucleated RBC % 0, Differential Comment SCANNED, Platelet Estimate MOD DEC 03/08/22 07:45: Sodium 138, Potassium 3.9, Chloride 102, Carbon Dioxide 29.0, Anion Gap 7, BUN 60 H, Creatinine 5.54 H, Estim Creat Clear Calc 10.61, Est GFR (MDRD) Af Amer 13 L, Est GFR (MDRD) Non-Af 11 L, BUN/Creatinine Ratio 10.8, Glucose 93, Calcium 8.4 L 03/08/22 07:45: POC Glucose 95 03/08/22 12:32: POC Glucose 150 H 03/08/22 16:20: POC Glucose 147 H 03/08/22 20:57: POC Glucose 233 H 03/09/22 03:17: Sodium 135 L, Potassium 4.0, Chloride 102, Carbon Dioxide 25.0, Anion Gap 8, BUN 52 H, Creatinine 4.18 H, Estim Creat Clear Calc 14.06, Est GFR (MDRD) Af Amer 18 L, Est GFR (MDRD) Non-Af 15 L, BUN/Creatinine Ratio 12.4, Glucose 172 H, Calcium 8.6 03/09/22 03:17: Magnesium 1.9 03/09/22 03:40: WBC 9.5, RBC 2.56 L, Hgb 7.6 L, Hct 24.8 L, MCV 96.9 H, MCH 29.7, MCHC 30.6 L, RDW Std Deviation 53.1 H, RDW Coeff of Nguyen 15.2 H, Plt Count 87 L, MPV 11.8, Immature Gran % (Auto) 0.600, Neut % (Auto) 85.6 H, Lymph % (Auto) 5.[address] L, [place] % (Auto) 6.8, Eos % (Auto) 1.7, Baso % (Auto) 0.3, Absolute Neuts (auto) 8.1 H, Absolute Lymphs (auto) 0.47 L, Nucleated RBC % 0, Differential Comment SCANNED 03/09/22 03:40: PT 16.5 H, INR 1.4, APTT 36.1 03/09/22 03:40: Hemoglobin A1c 6.5 H Micro: Microbiology 03/02/22 08:05 Blood Culture (Wb) - Neck Blood Culture - Final No growth in 5 days. 03/02/22 08:10 Blood Culture (Wb) - Right Forearm Blood Culture - Final No growth in 5 days. 12/04/22 09:40 Stool Stool Occult Blood (CANDIDA) - Final Occult Blood Positive 03/02/22 18:20 Stool C. difficile DNA Amplification - Final 03/01/22 21:30 Mucosa - Nasopharyngeal Respiratory Panel (PCR) - Final 03/01/22 22:00 Urine Catheter - Catheter Legionella Antigen - Final 03/01/22 22:00 Urine Catheter - Catheter Streptococcus pneumoniae Antigen (M - Final Physical Exam Const alert, oriented x3 and no apparent distress Constitutional Narrative: No conversational dyspnea General Appearance: cooperative HEENT normocephalic and head/scalp atraumatic HEENT Narrative: Right IJ removed. Eyes PERRL, EOMs intact bilaterally and conjunctivae normal Neck supple General: trachea midline Chest inspection of chest normal Resp normal respiratory effort Auscultation: rales bilateral (Mild) base and diminished lung sounds; Negative for rhonchi or wheezes Cardio S1 normal heart sound and S2 normal heart sound Rhythm: abnormal rhythm irregularly irregular (Frequent PVCs) Heart Sounds: murmur GI normal to inspection, nondistended, normoactive bowel sounds Extremity General Extremity: edema bilateral lower extremity Skin Skin Narrative: Lower extremities are currently wrapped. Neuro CN's II-XII intact bilaterally, moves all extremities and no focal motor deficits Psych cooperative and affect normal Charges/Coding Procedures Hospitalists Procedures: 19808 Critial Care 1st Hr
[2022-03-09] MEDS: Insulin Lispro 100 UNIT/ML INSULN.PEN SC ×3 (08:00→20:57)
--- NOTE | 2022-03-09 08:20 | NURSING ---
To OR at this time for tunneled dialysis line placement
[2022-03-09 08:21] LABS: Bedside Glucose 161 mg/dL (74-106)
--- NOTE | 2022-03-09 09:10 | CASEMGMT ---
KALEB SIMPSON NOTE: Participated in ICU multi-disciplinary rounds. Pt out of room for tunneled dialysis catheter placement. Pt will need ongoing HD after discharge. Pt went into A-Fib/RVR and became hypotensive during the night. Placed on pressors. Plan is for fem/pop bypass, most likely next 03/13 and then amputation later in the week. D/C Plan: TBD. Most likely, SNF vs LTACH [facility]SN KALEB SIMPSON
[2022-03-09] MEDS: Lidocaine 2% /Epi 1:100 (20ml) 20 ML VIAL (09:55)
--- NOTE | 2022-03-09 10:25 | NURSING ---
Returned from OR. Report rec'd from OR nurse. Pt stable
--- NOTE | 2022-03-09 10:26 | RAD_ITS ---
STUDY: X-RAY CHEST REASON FOR EXAM: Male, 76 years old. Line placement -- in pacu TECHNIQUE: Single AP portable view of the chest. COMPARISON: Comparison is made with prior examination dated 03/06/2022. FINDINGS: A left-sided temporary dialysis catheter has been placed. The tip is at the junction of the superior vena cava and left brachiocephalic vein. A left-sided unipolar pacemaker is seen. Mild degree of residual CHF although there has been improvement. Residual bibasilar atelectasis. Sternal cerclage wires and vascular clips are present from a prior sternotomy and coronary artery bypass graft procedure (CABG). Cardiomegaly. Normal mediastinum and sean. Normal visualized pulmonary arteries. There is atherosclerotic calcification of the aortic arch with tortuosity. There are diffuse degenerative changes of the visualized thoracic spine. Normal visualized ribs, clavicles, and shoulders. There is no demonstrated abnormality of the visualized soft tissue structures of the upper abdomen. RAD/CXR for Line Placement IMPRESSION: The tip of the left-sided temporary dialysis catheter is at the junction of the superior vena cava and left brachiocephalic vein. Residual CHF with bibasilar atelectasis and blunting of both costophrenic angles. Electronically Signed: Akil Davis MD at 15:03 EST ,
--- NOTE | 2022-03-09 10:38 | OP.PCM_ITS ---
Report of Operation Date of Procedure: 03/09/22 Pre-Operative Diagnosis: Acute kidney injury need for vascular access for dialy sis Post-Operative Diagnosis: Same Surgery/Procedure Performed:: Ultrasound and fluoroscopy guided left chest tunneled temporary dialysis catheter utilizing left IJ Description of Procedure: Patient was brought back the operating room MAC anesthesia was induced. The left neck and chest were prepped and draped in usual sterile fashion. Ultrasound was used to localize left IJ and then an area overlying it was injected with local anesthetic and then a needle was placed into the IJ under ultrasound guidance and a guidewire was placed. Under fluoroscopy the guidewire was placed down to the atrium without resistance. Next the needle was removed and serial dilators were placed and then the peel-away sheath was placed over the guidewire and then the guidewire was removed and the catheter was capped. Next area inferior to this was injected with local anesthetic and a small edna was made. The tunneler was placed in the subcutaneous tissue and guided in the subcutaneous tissue up to the neck incision and out of the neck incision. Next the catheter was placed through the peel-away sheath under fluoroscopy and the peel-away sheath was removed under fluoroscopy guidance. Next the catheters were drawn and flushed and they both godfrey and flushed easily. Next the patient's head was elevated and the neck incision was closed with 3-0 Vicryl suture and pressure was applied. The catheter was sutured to the skin using 3-0 nylon suture. Dressings were applied and then the catheters were both flushed with 1.8 cc of heparinized saline and then clamped and capped. Next patient was taken to PACU in stable condition tolerated procedure well. Grafts/Implants Used: Palindrome curved temporary dialysis catheter Admit VTE Documentation VTE Mechan Device Prophylaxis: SCD's
--- NOTE | 2022-03-09 10:42 | PN.RENAL_ITS ---
Objective Data Objective Data Vital Signs: Vital Signs Temp Pulse Resp BP Pulse Ox O2 Del Method O2 Flow Rate 98.5 F 107 H 16 107/53 L 100 Nasal Cannula 2 03/09/22 08:00 03/09/22 08:45 03/09/22 08:45 03/09/22 08:45 03/09/22 08:45 03/09/22 08:45 03/09/22 08:45 FiO2 2 03/04/22 13:00 Oxygen Flow Rate (L/min) 2 Oxygen Delivery Method Nasal Cannula Weight: 80.6 kg Body Mass Index (BMI) 28.2 Intake & Output: Intake and Output for Last 24 Hours 03/07/22 03/08/22 03/09/22 23:59 23:59 23:59 Intake Total 762.35 / 762.35 730 / 730 516.50 / 516.50 Output Total 100 / 100 1855 / 1855 15 Balance 662.35 / 662.35 -1125 / -1125 501.50 / 501.50 Lab / Micro Data Result Diagrams: 03/09/22 03:40 03/09/22 03:17 Labs: Laboratory Results - last 24 hr 03/08/22 12:32: POC Glucose 150 H 03/08/22 16:20: POC Glucose 147 H 03/08/22 20:57: POC Glucose 233 H 03/09/22 03:17: Sodium 135 L, Potassium 4.0, Chloride 102, Carbon Dioxide 25.0, Anion Gap 8, BUN 52 H, Creatinine 4.18 H, Estim Creat Clear Calc 14.06, Est GFR (MDRD) Af Amer 18 L, Est GFR (MDRD) Non-Af 15 L, BUN/Creatinine Ratio 12.4, Glucose 172 H, Calcium 8.6 03/09/22 03:17: Magnesium 1.9 03/09/22 03:40: WBC 9.5, RBC 2.56 L, Hgb 7.6 L, Hct 24.8 L, MCV 96.9 H, MCH 29.7, MCHC 30.6 L, RDW Std Deviation 53.1 H, RDW Coeff of Nguyen 15.2 H, Plt Count 87 L, MPV 11.8, Immature Gran % (Auto) 0.600, Neut % (Auto) 85.6 H, Lymph % (Auto) 5.0 L, [place] % (Auto) 6.8, Eos % (Auto) 1.7, Baso % (Auto) 0.3, Absolute Neuts (auto) 8.1 H, Absolute Lymphs (auto) 0.47 L, Nucleated RBC % 0, Differential Comment SCANNED 03/09/22 03:40: PT 16.5 H, INR 1.4, APTT 36.1 03/09/22 03:40: Hemoglobin A1c 6.5 H 03/09/22 07:49: POC Glucose 161 H Micro: Microbiology 03/02/22 08:05 Blood Culture (Wb) - Neck Blood Culture - Final No growth in 5 days. 03/02/22 08:10 Blood Culture (Wb) - Right Forearm Blood Culture - Final No growth in 5 days. 03/04/22 09:40 Stool Stool Occult Blood (CANDIDA) - Final Occult Blood Positive 03/02/22 18:20 Stool C. difficile DNA Amplification - Final 03/01/22 21:30 Mucosa - Nasopharyngeal Respiratory Panel (PCR) - Final 03/01/22 22:00 Urine Catheter - Catheter Legionella Antigen - Final 03/01/22 22:00 Urine Catheter - Catheter Streptococcus pneumoniae Antigen (M - Final Rhythm Strip Rhythm Strip: Sinus Rhythm Physical Exam Narrative General: Alert and oriented x3, NAD. HEENT: Normocephalic, atraumatic. Mucous membrane dry Neck: Supple, no JVD. Heart: Normal S1 and S2. There is a 2/6 systolic murmur. Lungs: Clear to auscultation anteriorly. Abdomen: Normal bowel sounds, soft, nontender, no guarding or rebound. Extremities: No significant edema, right femoral dialysis catheter accessed for dialysis. Dressings C/D/I to b/l feet Assessment & Plan Assessment/Plan (1) DAVIS (acute kidney injury): PLAN: The patient likely has underlying chronic kidney disease with serum creatinine of around 1.2 to 1.5 mg/dL at baseline (serum creatinine was 1.46 mg/dL on 01/23/2022). I suspect that the patient has diabetic kidney disease or nephrosclerosis from hypertension/PAD. DAVIS is due to severe prerenal azotemia due to circulatory shock made worse by concurrent use of diuretic and ARB prior to admission. Prerenal DAVIS has likely progressed to ischemic ATN. So far no noted renal recov derrick at this time. SCr 5.54mg/dL this am pre-HD Renal ultrasound did not show any evidence of obstructive nephropathy. Remains oliguric, UOP 100ml yesterday (patient has whalen) In September, serum protein electrophoresis, ANCA antibodies are negative C3 slightly low at 76, normal C4. will maintain TTS schedule for dialysis for this week will need tunneled dialysis line since he has a femoral line in place and will need outpatient dialysis arrangements (2) Acute hyperkalemia: PLAN: Resolved. Hyperkalemia was secondary to DAVIS, acidosis, ARB, spironolactone, and potassium supplementation. Potassium level was 6.7 mmol/L on presentation. . (3) Metabolic acidosis: PLAN: Resolved. Serum bicarbonate level was 16 mmol/L on presentation. Metabolic acidosis was likely due to DAVIS along with diarrhea prior to presentation. (4) Shock circulatory: PLAN: Improving. Off vasopressor (5) Ischemic cardiomyopathy: PLAN: The patient has a history of CAD status post CABG and PCI to the graft to right coronary artery. He also has a history of heart failure with reduced ejection fraction with EF of 35%. BP borderline especially during dialysis and we had to use levophed for fluid removal previous HD treatments, no levophed today but patient did receive midodrine pre-HD today. UF today ~1L.
[2022-03-09] MEDS: Midodrine HCl 5 MG Tablet 10 MG PO ×2 (11:03→16:33)
[2022-03-09] MEDS: Aspirin E.C. 81 MG Tablet PO (11:03)
[2022-03-09] MEDS: Pantoprazole Sodium 40 MG Tablet PO ×2 (11:08→20:57)
[2022-03-09 12:01] LABS: Bedside Glucose 147 mg/dL (74-106)
--- NOTE | 2022-03-09 12:19 | PN.HOSP_ITS ---
Subjective Subjective Doing well, had to be restarted on pressors overnight secondary to having had dialysis Objective Data Objective Data Vital Signs: Vital Signs Temp Pulse Resp BP Pulse Ox O2 Del Method O2 Flow Rate 97.5 F L 93 16 102/50 L 100 Nasal Cannula 2 03/09/22 12:00 03/09/22 12:00 03/09/22 12:00 03/09/22 12:00 03/09/22 12:00 03/09/22 12:00 03/09/22 12:00 FiO2 2 03/04/22 13:00 Oxygen Flow Rate (L/min) 2 Oxygen Delivery Method Nasal Cannula Weight: 177 lb 11.081 oz Body Mass Index (BMI) 28.2 Intake & Output: Intake and Output for Last 24 Hours 03/08/22 03/09/22 03/10/22 03:59 03:59 03:59 Intake Total 750 / 750 746.45 / 755.85 510.05 / 510.05 Output Total 100 / 100 1855 / 1855 15 / 15 Balance 650 / 650 -1108.55 / -1099.15 495.05 / 495.05 Lab / Micro Data Result Diagrams: 03/09/22 03:40 03/09/22 03:17 Labs: Laboratory Results - last 24 hr 03/08/22 12:32: POC Glucose 150 H 03/08/22 16:20: POC Glucose 147 H 03/08/22 20:57: POC Glucose 233 H 03/09/22 03:17: Sodium 135 L, Potassium 4.0, Chloride 102, Carbon Dioxide 25.0, Anion Gap 8, BUN 52 H, Creatinine 4.18 H, Estim Creat Clear Calc 14.06, Est GFR (MDRD) Af Amer 18 L, Est GFR (MDRD) Non-Af 15 L, BUN/Creatinine Ratio 12.4, Glucose 172 H, Calcium 8.6 03/09/22 03:17: Magnesium 1.9 03/09/22 03:40: WBC 9.5, RBC 2.56 L, Hgb 7.6 L, Hct 24.8 L, MCV 96.9 H, MCH 29.7, MCHC 30.6 L, RDW Std Deviation 53.1 H, RDW Coeff of Nguyen 15.2 H, Plt Count 87 L, MPV 11.8, Immature Gran % (Auto) 0.600, Neut % (Auto) 85.6 H, Lymph % (Auto) 5.0 L, [place] % (Auto) 6.8, Eos % (Auto) 1.7, Baso % (Auto) 0.3, Absolute Neuts (auto) 8.1 H, Absolute Lymphs (auto) 0.47 L, Nucleated RBC % 0, Differential Comment SCANNED 03/09/22 03:40: PT 16.5 H, INR 1.4, APTT 36.1 03/09/22 03:40: Hemoglobin A1c 6.5 H 03/09/22 07:49: POC Glucose 161 H 03/09/22 11:33: POC Glucose 147 H Micro: Microbiology 03/02/22 08:05 Blood Culture (Wb) - Neck Blood Culture - Final No growth in 5 days. 03/02/22 08:10 Blood Culture (Wb) - Right Forearm Blood Culture - Final No growth in 5 days. 03/04/22 09:40 Stool Stool Occult Blood (CANDIDA) - Final Occult Blood Positive 03/02/22 18:20 Stool C. difficile DNA Amplification - Final 03/01/22 21:30 Mucosa - Nasopharyngeal Respiratory Panel (PCR) - Final 03/01/22 22:00 Urine Catheter - Catheter Legionella Antigen - Final 03/01/22 22:00 Urine Catheter - Catheter Streptococcus pneumoniae Antigen (M - Final Rhythm Strip Rhythm Strip: Sinus Rhythm Physical Exam Narrative General: Alert, Oriented x3, Cooperative, No apparent distress HEENT: Atraumatic, PERRLA, EOMI, Normocephalic Oral: Moist Mucosa Neck: Supple, No JVD Lungs: Diminished, Normal air movement, No rhonchi, No wheeze, rales Cardiovascular: Regular rate, Regular Rhythm, Normal S1, Normal S2, murmur Abdomen: Soft, Non Tender, Non-Distended, No Hepato-splenomegaly Extremities: Edema, Capillary Refill Less than 3 Seconds Skin: Legs are currently wrapped evidence of skin breakdown Musculoskeletal: No Tenderness to Palpation of Joints or Extremities Neurological: Cranial nerves II-XII grossly intact, Motor Exam 5/5 strength throughout, Sensory exam intact to light touch and pain Psych/Mental Status: Normal Affect, Appropriate Assessment & Plan Assessment/Plan (1) Septic shock: PLAN: Plan 1. Septic shock secondary to infected diabetic lower extremity ulcers/DAVIS on di alysis/DM 2 ? Appreciate podiatry ? Continue with infectious disease recommendations, Daysin, wound cultures are polymicrobial ? Continue with ICU care given his need for Levophed intermittently for dialysis ? He is currently on dialysis for his DAVIS he does not normally have dialysis at home. Appreciate nephrology's assistance I did dialysis catheter placed today by surgery ? We will monitor his blood sugars and adjust as necessary ? Appreciate vascular surgery's assistance plan will be for vascular intervention next week followed by midfoot amputation by podiatry later in the week 2. Paroxysmal A. fib/CAD status post CABG and stent/pulmonary hypertension/moderate aortic stenosis/chronic systolic CHF ? Currently on Coumadin for his A. fib, will hold while here for possible surgery and debridement ? Can continue with aspirin, Lipitor ? We will hold any blood pressure medication secondary to his hypotension 3. Anemia with Hemoccult positive stools from a rectal bleed ? Continue with PPI and will transfuse as necessary ? We will avoid anticoagulation at this time but will have GI see if we continue to have problems controlling his hemoglobin, does appear that his rectal bleeding has been a chronic problem DVT: SCDs Charges/Coding Visit Charges Inpatient E&M: 95270 Subs Hosp L2
--- NOTE | 2022-03-09 13:31 | PCM.PN.ID ---
Physical Exam Narrative Sleeping, no fever Const no apparent distress Resp normal air movement and clear to auscultation bilaterally Cardio regular rate and regular rhythm GI soft to palpation, non-tender and non-distended Skin Skin Narrative: reviewed photos ID ID: Route of nutrition/ use of supplements: [] Nutritional Intake: [] IV Site: [] Laura Catheter: [] Assessment & Plan Assessment/Plan (1) Septic shock: PLAN: Due to BLE infected ulcers and gangrene. Recent wound cx with citro, proteus, morganella, serratia, GBS, enterococcus, and anaerobes. Had been on po doxy/cipro, but those are unreliable for GBS, enterococcus, and anaerobes. Podiatry following, amputation planned. Given severity of illness, cont zosyn, adjusted zosyn to q12h based on GFR. Cdiff neg. Now off pressors. Will follow (2) DAVIS (acute kidney injury): (3) Diabetic infection of right foot:
[2022-03-09] MEDS: Juven (unflavored) Packet 1 PACKET PO (14:09)
--- NOTE | 2022-03-09 15:05 | PN.SURG_ITS ---
Subjective Subjective Patient reports feeling okay overall, no complaints. Tunneled dialysis catheter was placed in left chest this morning. He will receive next dialysis tomorrow. He did require vasopressors again overnight, but these were stopped this morning. Now on midodrine to help maintain pressure. Objective Data Objective Data Vital Signs: Vital Signs Temp Pulse Resp BP Pulse Ox O2 Del Method O2 Flow Rate 97.3 F L 111 H 23 H 112/66 100 Nasal Cannula 2 03/09/22 14:00 03/09/22 14:00 03/09/22 14:00 03/09/22 14:00 03/09/22 14:00 03/09/22 14:00 03/09/22 14:00 FiO2 2 03/04/22 13:00 Oxygen Flow Rate (L/min) 2 Oxygen Delivery Method Nasal Cannula Weight: 177 lb 11.081 oz Body Mass Index (BMI) 28.2 Intake & Output: Intake and Output for Last 24 Hours 03/07/22 03/08/22 03/09/22 23:59 23:59 23:59 Intake Total 762.35 / 762.35 730 / 730 866.50 / 866.50 Output Total 100 / 100 1855 / 1855 15 / 15 Balance 662.35 / 662.35 -1125 / -1125 851.50 / 851.50 Lab / Micro Data Result Diagrams: 03/09/22 03:40 03/09/22 03:17 Labs: Laboratory Results - last 24 hr 03/08/22 16:20: POC Glucose 147 H 03/08/22 20:57: POC Glucose 233 H 03/09/22 03:17: Sodium 135 L, Potassium 4.0, Chloride 102, Carbon Dioxide 25.0, Anion Gap 8, BUN 52 H, Creatinine 4.18 H, Estim Creat Clear Calc 14.06, Est GFR (MDRD) Af Amer 18 L, Est GFR (MDRD) Non-Af 15 L, BUN/Creatinine Ratio 12.4, Glucose 172 H, Calcium 8.6 03/09/22 03:17: Magnesium 1.9 03/09/22 03:40: WBC 9.5, RBC 2.56 L, Hgb 7.6 L, Hct 24.8 L, MCV 96.9 H, MCH 29.7, MCHC 30.6 L, RDW Std Deviation 53.1 H, RDW Coeff of Nguyen 15.2 H, Plt Count 87 L, MPV 11.8, Immature Gran % (Auto) 0.600, Neut % (Auto) 85.6 H, Lymph % (Auto) 5.0 L, [place] % (Auto) 6.8, Eos % (Auto) 1.7, Baso % (Auto) 0.3, Absolute Neuts (auto) 8.1 H, Absolute Lymphs (auto) 0.47 L, Nucleated RBC % 0, Differential Comment SCANNED 03/09/22 03:40: PT 16.5 H, INR 1.4, APTT 36.1 03/09/22 03:40: Hemoglobin A1c 6.5 H 03/09/22 07:49: POC Glucose 161 H 03/09/22 11:33: POC Glucose 147 H Micro: Microbiology 03/02/22 08:05 Blood Culture (Wb) - Neck Blood Culture - Final No growth in 5 days. 03/02/22 08:10 Blood Culture (Wb) - Right Forearm Blood Culture - Final No growth in 5 days. 03/04/22 09:40 Stool Stool Occult Blood (CANDIDA) - Final Occult Blood Positive 03/02/22 18:20 Stool C. difficile DNA Amplification - Final 03/01/22 21:30 Mucosa - Nasopharyngeal Respiratory Panel (PCR) - Final 03/01/22 22:00 Urine Catheter - Catheter Legionella Antigen - Final 03/01/22 22:00 Urine Catheter - Catheter Streptococcus pneumoniae Antigen (M - Final Radiography Diagnostic Testing: Radiology Impression Chest X-Ray 03/09/22 10:26 IMPRESSION: The tip of the left-sided temporary dialysis catheter is at the junction of the superior vena cava and left brachiocephalic vein. Residual CHF with bibasilar atelectasis and blunting of both costophrenic angles. Electronically Signed: Akil Davis MD at 15:03 EST , Rhythm Strip Rhythm Strip: Sinus Rhythm Physical Exam Const alert and no apparent distress General Appearance: cooperative Orientation / Consciousness: awake HEENT normocephalic, head/scalp atraumatic and hearing grossly normal bilaterally Eyes EOMs intact bilaterally General Eye: normal appearance of both eyes Neck full ROM General: trachea midline Resp normal respiratory effort and no use of accessory muscles Effort and Inspection: Negative for respiratory distress, stridor or audible wheezes Cardio regular rate and regular rhythm Extremity Peripheral Pulses: Negative for femoral pulses present or popliteal pulses present Skin Wounds: wounds noted Wound Narrative: Multiple wounds on bilateral lower extremities including left great toe and right second toe gangrene Neuro CN's II-XII intact bilaterally, no focal motor deficits and no sensory deficits noted Psych mental status grossly normal and activity/motor behavior normal Appearance: grossly normal Speech: normal speech Assessment & Plan Assessment/Plan (1) Peripheral vascular disease, unspecified: PLAN: Plan Wounds and infection remain stable. No pressors since 744 today, maintaining BP with midodrine. Continue to plan for angiogram, scheduled for 799. Charges/Coding Visit Charges Inpatient E&M: 18171 Subs Hosp L1
[2022-03-09 16:56] LABS: Bedside Glucose 244 mg/dL (74-106)
[2022-03-09] MEDS: MELATONIN 3 MG TABLET PO (20:55)
[2022-03-09] MEDS: Acetaminophen 325 MG Tablet 650 MG PO (20:55)
[2022-03-09] MEDS: Atorvastatin Calcium 80 MG Tablet PO (20:57)
[2022-03-09] MEDS: Insulin NPH Human 100 UNITS/ML PEN SC (20:58)
[2022-03-09 21:21] LABS: Bedside Glucose 186 mg/dL (74-106)
[2022-03-10] VITALS (30 sets, daily range): BP systolic 90–120; BP diastolic 51–90; PULSE 79–119; RESP 10–26; TEMP 36.1–37.1; O2SAT 94–100
[2022-03-10 03:05] LABS: Absolute Lymphocyte Count 0.32 X10^3/uL (0.83-4.51); Absolute Neutrophil Count 6.5 X10^3/uL (2.0-7.7); Basophil# 0.02 X10^3/uL; Basophil% 0.3 % (0-1); Eosinophil# 0.15 X10^3/uL; Hematocrit 27.6 % (40-54); Hemoglobin 8.3 g/dL (13.0-16.5); Lymphocyte # 0.32 X10^3/ul (0.83-4.51); Lymphocyte % 4.2 % (19-41); Mean Corp Hgb Conc 30.1 g/dL (32-36); Mean Corpuscular Hgb 29.4 pg (27.0-32.0); Mean Corpuscular Volume 97.9 fL (80-94); Mean Platelet Vol. 11.9 fl (6.2-12.0); Monocyte# 0.53 X10^3/uL; NRBC Flagged by Analyzer 0 % (0-5); Neutrophil % 85.6 % (47-70); POSITIVE COUNT YES; POSITIVE DIFFERENTIAL YES; Platelet Count 82 K/mm3 (150-450); RBC Distribution Width CV 15.2 % (11.6-14.6); RBC Distribution Width SD 54.3 fl (35.1-43.9); Red Blood Count 2.82 M/mm3 (4.6-6.2); White Blood Count 7.6 K/mm3 (4.4-11.0)
[2022-03-10 03:07] LABS: Differential Indicated SCAN CRITERIA MET
[2022-03-10 03:18] LABS: Acanthocytes RARE; Differential Comment SCANNED; Ovalocyte RARE; Platelet Estimate SLT DEC (ADEQ)
[2022-03-10 03:20] LABS: Anion Gap 9 (5-15); BUN 65 mg/dL (7-18); BUN/Creat Ratio 12.7 RATIO (10-20); Calcium,Total 8.4 mg/dL (8.5-10.1); Chloride 103 mmol/L (98-107); Creatinine, Serum 5.12 mg/dL (0.70-1.30); EST Glomerular Filtration Rate 12 mL/min (>60); Est Glom Filt Rate - Afr Amer 14 mL/min (>60); Estimated Creatinine Clearance 11.48 ml/min; Glucose 119 mg/dL (74-106); Potassium 4.4 mmol/L (3.5-5.1); Sodium Level 136 mmol/L (136-145)
[2022-03-10] MEDS: Menthol/Lanolin/Calamine/Znox 113 GM Tube 1 APPLIC TOPICAL ×3 (06:31→20:26)
--- NOTE | 2022-03-10 06:37 | PN.CC_ITS ---
Assessment & Plan Assessment/Plan (1) Septic shock: PLAN: Plan RECOMMENDATIONS: 1. Remove femoral line EMELINA 2. Likely not necessary to continue/reinitiate antibiotics 3. Ongoing dialysis support per nephrology recommendations. 4. Continue to monitor H&H daily and transfuse if hemoglobin drops below 7 g/dL. 5. Encourage incentive spirometer use while in bed. 6. Surgical intervention timing/plans per podiatry. 7. Wean midodrine over the next 2 to 3 weeks 8. Hemodynamically stable on minimal nasal cannula. Will sign off from a critical care perspective IMPRESSIONS: 1. Septic shock The patient presented with sepsis due to infected diabetic foot wounds with acute sepsis related organ dysfunction as evidenced by acute kidney injury and fluid refractory hypotension, necessitating vasopressor support. The patient remains on appropriate antimicrobials. No pressors required overnight. However, no recurrent fever or leukocytosis is noted. Patient can be weaned off of midodrine over the next 2 to 3 weeks pending response to hemodialysis 2. Acute kidney injury Most likely prerenal in etiology in the setting of #1. The patient did receive supplemental IV fluids and remains on vasopressor support to maintain hemodynamic stability. Attempts at volume removal with dialysis have been successful recently. The patient will be continued on dialysis support per nephrology recommendations. No significant improvement in urine output following hemodialysis. Patient tolerated a tunneled hemodialysis line. Patient should have hemodialysis today 3. Coagulopathy The patient is maintained on Coumadin on an outpatient basis. The patient is coagulopathic in the setting of sepsis. Agree with holding systemic anticoagulation and monitoring INR daily. In light of the patient's worsening anemia and elevated INR, vitamin K was ultimately administered. Would defer to vascular surgery on reinitiation of anticoagulation. 4. Anemia Hemoglobin is stable at 8.1 g/dL this morning. PPI therapy twice daily will be continued. Continue to monitor blood counts daily and transfuse if hemoglobin drops below 7 g/dL. Continue to hold systemic anticoagulation. 5. History of ischemic cardiomyopathy/paroxysmal atrial fibrillation/anemia/diabetes mellitus/GERD/RITESH Complicates care, management, recovery and prognosis. Continue to hold Coumadin and antihypertensives. The patient will be maintained on sliding scale insulin coverage. Patient with ongoing issues including chronic dialysis, potential revascularization and diabetic foot wounds, but critical care issues appear to be controlled at this time. Subjective Subjective Patient did well overnight. Patient did have a tunneled dialysis line placed yesterday. There was some mild oozing overnight. Femoral line has not been discontinued until tunneled line has been used. Patient has not required any pressors. Patient is not reporting any pain. Objective Data Objective Data Vital Signs: Vital Signs Temp Pulse Resp BP Pulse Ox O2 Del Method O2 Flow Rate 36.1 C L 91 12 95/77 100 Nasal Cannula 2 03/10/22 05:00 03/10/22 05:00 03/10/22 05:00 03/10/22 05:00 03/10/22 05:00 03/10/22 05:00 03/10/22 05:00 FiO2 2 03/04/22 13:00 Oxygen Flow Rate (L/min) 2 Oxygen Delivery Method Nasal Cannula Weight: 81.1 kg Body Mass Index (BMI) 28.2 Intake & Output: Intake and Output for Last 24 Hours 03/08/22 03/09/22 03/10/22 23:59 23:59 23:59 Intake Total 730 / 730 1031.50 / 1031.50 50 / 50 Output Total 1855 / 1855 30 Balance -1125 / -1125 1001.50 / 1001.50 Lab / Micro Data Attestation: I reviewed the patient's lab results. Result Diagrams: 03/10/22 03:00 03/10/22 03:00 Labs: Laboratory Results - last 24 hr 03/09/22 03:40: Hemoglobin A1c 6.5 H 03/09/22 07:49: POC Glucose 161 H 03/09/22 11:33: POC Glucose 147 H 03/09/22 16:31: POC Glucose 244 H 03/09/22 20:56: POC Glucose 186 H 03/10/22 03:00: WBC 7.6, RBC 2.82 L, Hgb 8.3 L, Hct 27.6 L, MCV 97.9 H, MCH 29.4, MCHC 30.1 L, RDW Std Deviation 54.3 H, RDW Coeff of Nguyen 15.2 H, Plt Count 82 L, MPV 11.9, Immature Gran % (Auto) 0.900, Neut % (Auto) 85.6 H, Lymph % (Auto) 4.2 L, [place] % (Auto) 7.0, Eos % (Auto) 2.0, Baso % (Auto) 0.3, Absolute Neuts (auto) 6.5, Absolute Lymphs (auto) 0.32 L, Nucleated RBC % 0, Differential Comment SCANNED, Platelet Estimate SLT DEC, Ovalocytes RARE, Acanthocytes (Spur) RARE 03/10/22 03:00: Sodium 136, Potassium 4.4, Chloride 103, Carbon Dioxide 24.0, Anion Gap 9, BUN 65 H, Creatinine 5.12 H, Estim Creat Clear Calc 11.48, Est GFR (MDRD) Af Amer 14 L, Est GFR (MDRD) Non-Af 12 L, BUN/Creatinine Ratio 12.7, Glucose 119 H, Calcium 8.4 L Micro: Microbiology 03/02/22 08:05 Blood Culture (Wb) - Neck Blood Culture - Final No growth in 5 days. 03/02/22 08:10 Blood Culture (Wb) - Right Forearm Blood Culture - Final No growth in 5 days. 03/04/22 09:40 Stool Stool Occult Blood (CANDIDA) - Final Occult Blood Positive 03/02/22 18:20 Stool C. difficile DNA Amplification - Final 03/01/22 21:30 Mucosa - Nasopharyngeal Respiratory Panel (PCR) - Final 03/01/22 22:00 Urine Catheter - Catheter Legionella Antigen - Final 03/01/22 22:00 Urine Catheter - Catheter Streptococcus pneumoniae Antigen (M - Final Radiography Diagnostic Testing: Radiology Impression Chest X-Ray 03/09/22 10:26 IMPRESSION: The tip of the left-sided temporary dialysis catheter is at the junction of the superior vena cava and left brachiocephalic vein. Residual CHF with bibasilar atelectasis and blunting of both costophrenic angles. Electronically Signed: Akil Davis MD at 15:03 EST , Rhythm Strip Rate: 82 Physical Exam Const alert, oriented x3 and no apparent distress Constitutional Narrative: No conversational dyspnea General Appearance: cooperative HEENT normocephalic and head/scalp atraumatic HEENT Narrative: Right IJ removed. Eyes PERRL, EOMs intact bilaterally and conjunctivae normal Neck supple General: trachea midline Chest inspection of chest normal Chest Narrative: Left tunneled hemodialysis line noted Resp normal respiratory effort Auscultation: rales bilateral (Mild) base and diminished lung sounds; Negative for rhonchi or wheezes Cardio S1 normal heart sound and S2 normal heart sound Rhythm: abnormal rhythm irregularly irregular (Frequent PVCs) Heart Sounds: murmur GI normal to inspection, nondistended, normoactive bowel sounds Extremity General Extremity: edema bilateral lower extremity Skin Skin Narrative: Lower extremities are currently wrapped. Neuro CN's II-XII intact bilaterally, moves all extremities and no focal motor defici ts Psych cooperative and affect normal Charges/Coding Visit Charges Inpatient E&M: 94924 Subs Hosp L2
[2022-03-10] MEDS: Juven (unflavored) Packet 1 PACKET PO (08:26)
[2022-03-10] MEDS: Pantoprazole Sodium 40 MG Tablet PO ×2 (08:26→20:28)
[2022-03-10] MEDS: Midodrine HCl 5 MG Tablet 10 MG PO ×3 (08:26→17:38)
[2022-03-10] MEDS: Aspirin E.C. 81 MG Tablet PO (08:27)
[2022-03-10 08:50] LABS: Bedside Glucose 104 mg/dL (74-106)
--- NOTE | 2022-03-10 09:41 | PN.HOSP_ITS ---
Subjective Subjective Doing well, no issues overnight getting dialysis today. Objective Data Objective Data Vital Signs: Vital Signs Temp Pulse Resp BP Pulse Ox O2 Del Method O2 Flow Rate 96.9 F L 90 13 114/54 L 100 Nasal Cannula 2 03/10/22 07:00 03/10/22 07:00 03/10/22 07:00 03/10/22 07:00 03/10/22 07:00 03/10/22 07:00 03/10/22 07:00 FiO2 2 03/04/22 13:00 Oxygen Flow Rate (L/min) 2 Oxygen Delivery Method Nasal Cannula Weight: 178 lb 12.718 oz Body Mass Index (BMI) 28.2 Intake & Output: Intake and Output for Last 24 Hours 03/09/22 03/10/22 03/11/22 03:59 03:59 03:59 Intake Total 746.45 / 755.85 1015.05 / 1015.05 Output Total 1855 / 1855 30 / 30 30 / 30 Balance -1108.55 / -1099.15 985.05 / 985.05 -30 / -30 Lab / Micro Data Result Diagrams: 03/10/22 03:00 03/10/22 03:00 Labs: Laboratory Results - last 24 hr 03/09/22 11:33: POC Glucose 147 H 03/09/22 16:31: POC Glucose 244 H 03/09/22 20:56: POC Glucose 186 H 03/10/22 03:00: WBC 7.6, RBC 2.82 L, Hgb 8.3 L, Hct 27.6 L, MCV 97.9 H, MCH 29.4, MCHC 30.1 L, RDW Std Deviation 54.3 H, RDW Coeff of Nguyen 15.2 H, Plt Count 82 L, MPV 11.9, Immature Gran % (Auto) 0.900, Neut % (Auto) 85.6 H, Lymph % (Auto) 4.2 L, [place] % (Auto) 7.0, Eos % (Auto) 2.0, Baso % (Auto) 0.3, Absolute Neuts (auto) 6.5, Absolute Lymphs (auto) 0.32 L, Nucleated RBC % 0, Differential Comment SCANNED, Platelet Estimate SLT DEC, Ovalocytes RARE, Acanthocytes (Spur) RARE 03/10/22 03:00: Sodium 136, Potassium 4.4, Chloride 103, Carbon Dioxide 24.0, An ion Gap 9, BUN 65 H, Creatinine 5.12 H, Estim Creat Clear Calc 11.48, Est GFR (MDRD) Af Amer 14 L, Est GFR (MDRD) Non-Af 12 L, BUN/Creatinine Ratio 12.7, Glucose 119 H, Calcium 8.4 L 03/10/22 08:28: POC Glucose 104 Micro: Microbiology 03/02/22 08:05 Blood Culture (Wb) - Neck Blood Culture - Final No growth in 5 days. 03/02/22 08:10 Blood Culture (Wb) - Right Forearm Blood Culture - Final No growth in 5 days. 03/04/22 09:40 Stool Stool Occult Blood (CANDIDA) - Final Occult Blood Positive 03/02/22 18:20 Stool C. difficile DNA Amplification - Final 03/01/22 21:30 Mucosa - Nasopharyngeal Respiratory Panel (PCR) - Final 03/01/22 22:00 Urine Catheter - Catheter Legionella Antigen - Final 03/01/22 22:00 Urine Catheter - Catheter Streptococcus pneumoniae Antigen (M - Final Radiography Diagnostic Testing: Radiology Impression Chest X-Ray 03/09/22 10:26 IMPRESSION: The tip of the left-sided temporary dialysis catheter is at the junction of the superior vena cava and left brachiocephalic vein. Residual CHF with bibasilar atelectasis and blunting of both costophrenic angles. Electronically Signed: Akil Davis MD at 15:03 EST , Rhythm Strip Rhythm Strip: Sinus Rhythm Rate: 82 Physical Exam Narrative General: Alert, Oriented x3, Cooperative, No apparent distress HEENT: Atraumatic, PERRLA, EOMI, Normocephalic Oral: Moist Mucosa Neck: Supple, No JVD Lungs: Diminished, Normal air movement, No rhonchi, No wheeze, rales Cardiovascular: Regular rate, Regular Rhythm, Normal S1, Normal S2, murmur Abdomen: Soft, Non Tender, Non-Distended, No Hepato-splenomegaly Extremities: Edema, Capillary Refill Less than 3 Seconds Skin: Legs are currently wrapped evidence of skin breakdown Musculoskeletal: No Tenderness to Palpation of Joints or Extremities Neurological: Cranial nerves II-XII grossly intact, Motor Exam 5/5 strength throughout, Sensory exam intact to light touch and pain Psych/Mental Status: Normal Affect, Appropriate Assessment & Plan Assessment/Plan (1) Septic shock: PLAN: Plan 1. 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 Appreciate podiatry ? Continue with infectious disease recommendations, Zosyn, wound cultures are polymicrobial ? Continue with ICU care given his need for Levophed intermittently for dialysis we will also continue with midodrine ? He is currently on dialysis for his DAVIS he does not normally have dialysis at home. Appreciate nephrology's assistance I did dialysis catheter placed today by surgery ? We will monitor his blood sugars and adjust as necessary ? Appreciate vascular surgery's assistance plan will be for vascular intervention next week followed by midfoot amputation by podiatry later in the week 2. Paroxysmal A. fib/CAD status post CABG and stent/pulmonary hypertension/moderate aortic stenosis/chronic systolic CHF ? Currently on Coumadin for his A. fib, will hold while here for possible surgery and debridement ? Can continue with aspirin, Lipitor ? We will hold any blood pressure medication secondary to his hypotension 3. Anemia with Hemoccult positive stools from a rectal bleed ? Continue with PPI and will transfuse as necessary ? We will avoid anticoagulation at this time but will have GI see if we continue to have problems controlling his hemoglobin, does appear that his rectal bleeding has been a chronic problem DVT: SCDs Charges/Coding Visit Charges Inpatient E&M: 78112 Subs Hosp L2
--- NOTE | 2022-03-10 12:50 | DIALYSIS ---
03/10/22 (12:45) Hemodialysis x 3.5 hours, net UF 2000 ml (used new LEFT chest catheter, ran at prescribed flow rates without issues). VSS, patient tolerated without complaints or adverse symptoms. Blood returned at end of treatment, HD catheter ports closed with heparin. Bedside report to KALEB Del Rio.
--- NOTE | 2022-03-10 12:51 | PCM.PN.REN ---
Subjective Subjective Follow-up on acute kidney injury on hemodialysis -Seen on dialysis -Tolerated treatment relatively well, ultrafiltration of 2 L -Feels okay, tolerating some p.o. intake Objective Data Objective Data Vital Signs: Vital Signs Temp Pulse Resp BP Pulse Ox O2 Del Method O2 Flow Rate 97.0 F L 119 H 12 116/65 100 Nasal Cannula 4 03/10/22 08:00 03/10/22 11:45 03/10/22 11:00 03/10/22 11:00 03/10/22 11:00 03/10/22 11:00 03/10/22 11:00 FiO2 2 03/04/22 13:00 Oxygen Flow Rate (L/min) 4 Oxygen Delivery Method Nasal Cannula Weight: 81.1 kg Body Mass Index (BMI) 28.2 Intake & Output: Intake and Output for Last 24 Hours 03/08/22 03/09/22 03/10/22 23:59 23:59 23:59 Intake Total 730 / 730 1031.50 / 1031.50 50 / 50 Output Total 1855 / 1855 30 30 30 30 Balance -1125 / -1125 1001.50 / 1001.50 Lab / Micro Data Result Diagrams: 03/10/22 03:00 03/10/22 03:00 Labs: Laboratory Results - last 24 hr 03/09/22 16:31: POC Glucose 244 H 03/09/22 20:56: POC Glucose 186 H 03/10/22 03:00: WBC 7.6, RBC 2.82 L, Hgb 8.3 L, Hct 27.6 L, MCV 97.9 H, MCH 29.4, MCHC 30.1 L, RDW Std Deviation 54.3 H, RDW Coeff of [place] 15.2 H, Plt Count 82 L, MPV 11.9, Immature Gran % (Auto) 0.900, Neut % (Auto) 85.6 H, Lymph % (Auto) 4.2 L, [place] % (Auto) 7.0, Eos % (Auto) 2.0, Baso % (Auto) 0.3, Absolute Neuts (auto) 6.5, Absolute Lymphs (auto) 0.32 L, Nucleated RBC % 0, Differential Comment SCANNED, Platelet Estimate SLT DEC, Ovalocytes RARE, Acanthocytes (Spur) RARE 03/10/22 03:00: Sodium 136, Potassium 4.4, Chloride 103, Carbon Dioxide 24.0, Anion Gap 9, BUN 65 H, Creatinine 5.12 H, Estim Creat Clear Calc 11.48, Est GFR (MDRD) Af Amer 14 L, Est GFR (MDRD) Non-Af 12 L, BUN/Creatinine Ratio 12.7, Glucose 119 H, Calcium 8.4 L 03/10/22 08:28: POC Glucose 104 Micro: Microbiology 03/02/22 08:05 Blood Culture (Wb) - Neck Blood Culture - Final No growth in 5 days. 03/02/22 08:10 Blood Culture (Wb) - Right Forearm Blood Culture - Final No growth in 5 days. 03/04/22 09:40 Stool Stool Occult Blood (CANDIDA) - Final Occult Blood Positive 03/02/22 18:20 Stool C. difficile DNA Amplification - Final 03/01/22 21:30 Mucosa - Nasopharyngeal Respiratory Panel (PCR) - Final 03/01/22 22:00 Urine Catheter - Catheter Legionella Antigen - Final 03/01/22 22:00 Urine Catheter - Catheter Streptococcus pneumoniae Antigen (M - Final Radiography Diagnostic Testing: Radiology Impression Chest X-Ray 03/09/22 10:26 IMPRESSION: The tip of the left-sided temporary dialysis catheter is at the junction of the superior vena cava and left brachiocephalic vein. Residual CHF with bibasilar atelectasis and blunting of both costophrenic angles. Electronically Signed: Akil Davis MD at 15:03 EST , Rhythm Strip Rhythm Strip: Sinus Rhythm Rate: 82 Physical Exam Narrative Answers questions appropriately Breath sounds diminished Irregular Abdomen is nontender No significant peripheral edema Assessment & Plan Assessment/Plan (1) DAVIS (acute kidney injury): PLAN: Acute kidney injury on a kidney disease -Prior serum creatinine is around 1.2 to 1.5 mg/dL -Acute insult secondary to ischemic ATN -Has been requiring renal replacement therapy -Currently on dialysis Saturday schedule -No sign of renal recovery -Seen on HD today, ultrafiltration of 2 L -From renal standpoint can discontinue Laura catheter -Next dialysis schedule on Saturday, continue to monitor for renal recovery Thank you please call [phone] with any concerns
[2022-03-10] MEDS: Heparin 10,000 UNITS/10 ML Vial IV (13:56)
[2022-03-10] MEDS: Insulin Lispro 100 UNIT/ML INSULN.PEN SC ×3 (14:02→20:26)
[2022-03-10 14:26] LABS: Bedside Glucose 163 mg/dL (74-106)
[2022-03-10 18:20] LABS: Bedside Glucose 188 mg/dL (74-106)
[2022-03-10] MEDS: Insulin NPH Human 100 UNITS/ML PEN SC (20:27)
[2022-03-10] MEDS: MELATONIN 3 MG TABLET PO (20:28)
[2022-03-10] MEDS: Atorvastatin Calcium 80 MG Tablet PO (20:28)
[2022-03-10 21:00] LABS: Bedside Glucose 190 mg/dL (74-106)
[2022-03-11] VITALS (27 sets, daily range): BP systolic 93–131; BP diastolic 54–75; PULSE 86–104; RESP 11–27; TEMP 36.1–36.9; O2SAT 100
[2022-03-11] MEDS: Menthol/Lanolin/Calamine/Znox 113 GM Tube 1 APPLIC TOPICAL ×3 (05:38→22:22)
--- NOTE | 2022-03-11 08:46 | PCM.PN.HOSP ---
Subjective Subjective Doing well, was able to tolerate dialysis without needing to initiate Levophed. Objective Data Objective Data Vital Signs: Vital Signs Temp Pulse Resp BP Pulse Ox O2 Del Method O2 Flow Rate 97.6 F L 95 12 114/54 L 100 Nasal Cannula 2 03/11/22 05:00 03/11/22 06:00 03/11/22 06:00 03/11/22 06:00 03/11/22 06:00 03/11/22 07:39 03/11/22 07:39 FiO2 100 03/10/22 12:54 Oxygen Flow Rate (L/min) 2 Oxygen Delivery Method Nasal Cannula Weight: 173 lb 11.588 oz Body Mass Index (BMI) 28.2 Intake & Output: Intake and Output for Last 24 Hours 03/10/22 03/11/22 03/12/22 03:59 03:59 03:59 Intake Total 1015.05 / 1015.05 160.00 / 160.00 60 / 60 Output Total 30 2045 / 2045 Balance 985.05 / 985.05 -1885.00 / -1885.00 60 / 60 Lab / Micro Data Result Diagrams: 03/10/22 03:00 03/10/22 03:00 Labs: Laboratory Results - last 24 hr 03/10/22 08:28: POC Glucose 104 03/10/22 14:00: POC Glucose 163 H 03/10/22 17:36: POC Glucose 188 H 03/10/22 20:25: POC Glucose 190 H Micro: Microbiology 03/10/22 16:10 Stool C. difficile DNA Amplification - Final 03/02/22 08:05 Blood Culture (Wb) - Neck Blood Culture - Final No growth in 5 days. 03/02/22 08:10 Blood Culture (Wb) - Right Forearm Blood Culture - Final No growth in 5 days. 03/04/22 09:40 Stool Stool Occult Blood (CANDIDA) - Final Occult Blood Positive 03/02/22 18:20 Stool C. difficile DNA Amplification - Final 03/01/22 21:30 Mucosa - Nasopharyngeal Respiratory Panel (PCR) - Final 03/01/22 22:00 Urine Catheter - Catheter Legionella Antigen - Final 03/01/22 22:00 Urine Catheter - Catheter Streptococcus pneumoniae Antigen (M - Final Rhythm Strip Rhythm Strip: Sinus Rhythm Rate: 82 Physical Exam Narrative General: Alert, Oriented x3, Cooperative, No apparent distress HEENT: Atraumatic, PERRLA, EOMI, Normocephalic Oral: Moist Mucosa Neck: Supple, No JVD Lungs: Diminished, Normal air movement, No rhonchi, No wheeze, rales Cardiovascular: Regular rate, Regular Rhythm, Normal S1, Normal S2, murmur Abdomen: Soft, Non Tender, Non-Distended, No Hepato-splenomegaly Extremities: Edema, Capillary Refill Less than 3 Seconds Skin: Legs are currently wrapped evidence of skin breakdown Musculoskeletal: No Tenderness to Palpation of Joints or Extremities Neurological: Cranial nerves II-XII grossly intact, Motor Exam 5/5 strength throughout, Sensory exam intact to light touch and pain Psych/Mental Status: Normal Affect, Appropriate Assessment & Plan Assessment/Plan (1) Septic shock: PLAN: Plan 1. 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 Appreciate podiatry ? Continue with infectious disease recommendations, Zosyn, wound cultures are polymicrobial ? Continue with ICU care given his need for Levophed intermittently for dialysis we will also continue with midodrine ? He is currently on dialysis for his DAVIS he does not normally have dialysis at home. Appreciate nephrology's assistance I did dialysis catheter placed today by surgery ? We will monitor his blood sugars and adjust as necessary ? Appreciate vascular surgery's assistance plan will be for vascular intervention next week followed by midfoot amputation by podiatry later in the week 2. Paroxysmal A. fib/CAD status post CABG and stent/pulmonary hypertension/moderate aortic stenosis/chronic systolic CHF ? Currently on Coumadin for his A. fib, will hold while here for possible surgery and debridement ? Can continue with aspirin, Lipitor ? We will hold any blood pressure medication secondary to his hypotension 3. Anemia with Hemoccult positive stools from a rectal bleed ? Continue with PPI and will transfuse as necessary ? We will avoid anticoagulation at this time but will have GI see if we continue to have problems controlling his hemoglobin, does appear that his rectal bleeding has been a chronic problem DVT: SCDs Charges/Coding Visit Charges Inpatient E&M: 39424 Subs Hosp L2
[2022-03-11] MEDS: Midodrine HCl 5 MG Tablet 10 MG PO ×3 (09:21→17:36)
[2022-03-11] MEDS: Aspirin E.C. 81 MG Tablet PO (09:21)
[2022-03-11] MEDS: Juven (unflavored) Packet 1 PACKET PO (09:21)
[2022-03-11] MEDS: Pantoprazole Sodium 40 MG Tablet PO ×2 (09:22→22:22)
[2022-03-11] MEDS: Loperamide 2 MG Capsule PO ×4 (11:05→22:21)
[2022-03-11] MEDS: Insulin NPH Human 100 UNITS/ML PEN 12 UNITS SC (11:35)
[2022-03-11] MEDS: Insulin Lispro 100 UNIT/ML INSULN.PEN SC ×3 (11:35→22:23)
[2022-03-11 12:01] LABS: Bedside Glucose 245 mg/dL (74-106)
--- NOTE | 2022-03-11 17:52 | NURSING ---
education re chronic illness deferred till acute illness resolving
[2022-03-11 18:05] LABS: Bedside Glucose 242 mg/dL (74-106)
[2022-03-11] MEDS: MELATONIN 3 MG TABLET PO (22:21)
[2022-03-11] MEDS: Atorvastatin Calcium 80 MG Tablet PO (22:22)
[2022-03-11] MEDS: Insulin NPH Human 100 UNITS/ML PEN SC (22:23)
[2022-03-11 22:51] LABS: Bedside Glucose 190 mg/dL (74-106)
[2022-03-12] VITALS (26 sets, daily range): BP systolic 86–134; BP diastolic 46–85; PULSE 71–106; RESP 11–26; TEMP 36.3–37.1; O2SAT 92–100
[2022-03-12] MEDS: Menthol/Lanolin/Calamine/Znox 113 GM Tube 1 APPLIC TOPICAL ×3 (05:25→20:20)
[2022-03-12 06:04] LABS: Absolute Lymphocyte Count 0.49 X10^3/uL (0.83-4.51); Absolute Neutrophil Count 7.5 X10^3/uL (2.0-7.7); Basophil# 0.05 X10^3/uL; Basophil% 0.6 % (0-1); Eosinophil# 0.21 X10^3/uL; Eosinophils% 2.4 % (0-5); Hematocrit 27.3 % (40-54); Hemoglobin 8.7 g/dL (13.0-16.5); Lymphocyte # 0.49 X10^3/ul (0.83-4.51); Lymphocyte % 5.5 % (19-41); Mean Corp Hgb Conc 31.9 g/dL (32-36); Mean Corpuscular Hgb 31.1 pg (27.0-32.0); Mean Corpuscular Volume 97.5 fL (80-94); Mean Platelet Vol. 10.9 fl (6.2-12.0); Monocyte# 0.58 X10^3/uL; Monocyte% 6.5 % (0-10); NRBC Flagged by Analyzer 0 % (0-5); Neutrophil % 84.2 % (47-70); POSITIVE DIFFERENTIAL YES; Platelet Count 132 K/mm3 (150-450); RBC Distribution Width CV 15.7 % (11.6-14.6); RBC Distribution Width SD 55.1 fl (35.1-43.9); White Blood Count 8.9 K/mm3 (4.4-11.0)
[2022-03-12 06:11] LABS: Differential Indicated SCAN CRITERIA MET
[2022-03-12 06:18] LABS: Anion Gap 8 (5-15); BUN 57 mg/dL (7-18); BUN/Creat Ratio 12.3 RATIO (10-20); Calcium,Total 8.8 mg/dL (8.5-10.1); Chloride 102 mmol/L (98-107); Creatinine, Serum 4.63 mg/dL (0.70-1.30); EST Glomerular Filtration Rate 13 mL/min (>60); Est Glom Filt Rate - Afr Amer 16 mL/min (>60); Estimated Creatinine Clearance 12.69 ml/min; Glucose 124 mg/dL (74-106); Potassium 3.6 mmol/L (3.5-5.1); Sodium Level 138 mmol/L (136-145)
[2022-03-12 06:19] LABS: Anisocytosis 1+; Platelet Estimate SLT DEC (ADEQ)
[2022-03-12] MEDS: Loperamide 2 MG Capsule PO ×3 (07:47→20:19)
[2022-03-12] MEDS: Pantoprazole Sodium 40 MG Tablet PO ×2 (07:48→20:19)
[2022-03-12] MEDS: Midodrine HCl 5 MG Tablet 10 MG PO ×3 (07:48→16:41)
[2022-03-12] MEDS: Juven (unflavored) Packet 1 PACKET PO ×2 (07:48→16:41)
[2022-03-12] MEDS: Aspirin E.C. 81 MG Tablet PO (07:48)
[2022-03-12 08:11] LABS: Bedside Glucose 106 mg/dL (74-106)
--- NOTE | 2022-03-12 10:04 | WOUNDNOTE ---
wound photo: right foot
--- NOTE | 2022-03-12 10:05 | WOUNDNOTE ---
wound photo: right lower leg
--- NOTE | 2022-03-12 10:06 | WOUNDNOTE ---
wound photo:right medial/posterior lower leg
--- NOTE | 2022-03-12 10:07 | WOUNDNOTE ---
wound photo: right lateral foot/heel
--- NOTE | 2022-03-12 10:07 | WOUNDNOTE ---
wound photo:left medial lower leg
--- NOTE | 2022-03-12 10:08 | WOUNDNOTE ---
wound photo: left lower leg
--- NOTE | 2022-03-12 10:09 | WOUNDNOTE ---
wound photo: left foot
--- NOTE | 2022-03-12 10:09 | WOUNDNOTE ---
wound photo: left lateral foot/heel
--- NOTE | 2022-03-12 11:17 | PCM.PN.REN ---
Subjective Subjective Sitting quietly. Denies any nausea or vomiting. Reports still having diarrhea. Objective Data Objective Data Vital Signs: Vital Signs Temp Pulse Resp BP Pulse Ox O2 Del Method O2 Flow Rate 98.2 F 105 H 24 H 86/56 L 100 Nasal Cannula 2 03/12/22 06:00 03/12/22 11:00 03/12/22 11:00 03/12/22 11:00 03/12/22 11:00 03/12/22 11:00 03/12/22 11:00 FiO2 100 03/10/22 12:54 Oxygen Flow Rate (L/min) 2 Oxygen Delivery Method Nasal Cannula Weight: 79.6 kg Body Mass Index (BMI) 28.2 Intake & Output: Intake and Output for Last 24 Hours 03/10/22 03/11/22 03/12/22 23:59 23:59 23:59 Intake Total 160.00 / 160.00 610 / 610 50 / 50 Output Total 2045 / 2045 0 / 0 Balance -1885.00 / -1885.00 610 / 610 50 / 50 Lab / Micro Data Result Diagrams: 03/12/22 06:00 03/12/22 06:00 Labs: Laboratory Results - last 24 hr 03/11/22 11:34: POC Glucose 245 H 03/11/22 17:38: POC Glucose 242 H 03/11/22 22:20: POC Glucose 190 H 03/12/22 06:00: WBC 8.9, RBC 2.80 L, Hgb 8.7 L, Hct 27.3 L, MCV 97.5 H, MCH 31.1, MCHC 31.9 L D, RDW Std Deviation 55.1 H, RDW Coeff of Nguyen 15.7 H, Plt Count 132 L, MPV 10.9, Immature Gran % (Auto) 0.800, Neut % (Auto) 84.2 H, Lymph % (Auto) 5.5 L, [place] % (Auto) 6.5, Eos % (Auto) 2.4, Baso % (Auto) 0.6, Absolute Neuts (auto) 7.5, Absolute Lymphs (auto) 0.49 L, Nucleated RBC % 0, Platelet Estimate SLT DEC, Anisocytosis 1+ 03/12/22 06:00: Sodium 138, Potassium 3.6, Chloride 102, Carbon Dioxide 28.0, Anion Gap 8, BUN 57 H, Creatinine 4.63 H, Estim Creat Clear Calc 12.69, Est GFR (MDRD) Af Amer 16 L, Est GFR (MDRD) Non-Af 13 L, BUN/Creatinine Ratio 12.3, Glucose 124 H, Calcium 8.8 03/12/22 07:46: POC Glucose 106 Micro: Microbiology 03/10/22 16:10 Stool Enteric Bacteriology - Final 03/10/22 16:10 Stool C. difficile DNA Amplification - Final 03/02/22 08:05 Blood Culture (Wb) - Neck Blood Culture - Final No growth in 5 days. 03/02/22 08:10 Blood Culture (Wb) - Right Forearm Blood Culture - Final No growth in 5 days. 03/04/22 09:40 Stool Stool Occult Blood (CANDIDA) - Final Occult Blood Positive 03/02/22 18:20 Stool C. difficile DNA Amplification - Final 03/01/22 21:30 Mucosa - Nasopharyngeal Respiratory Panel (PCR) - Final 03/01/22 22:00 Urine Catheter - Catheter Legionella Antigen - Final 03/01/22 22:00 Urine Catheter - Catheter Streptococcus pneumoniae Antigen (M - Final Rhythm Strip Rhythm Strip: Sinus Rhythm Rate: 82 Physical Exam Narrative Alert and oriented x3, no apparent distress Lung sounds clear anteriorly, no wheezes, rhonchi or rales noted S1, S2, RRR Abdomen soft, nontender No significant lower extremity pitting edema. Dressings clean dry and intact to bilateral feet Tunneled HD catheter left chest area dressing clean, dry and intact Assessment & Plan Assessment/Plan (1) DAVIS (acute kidney injury): PLAN: - Essentially anuric acute kidney injury superimposed on CKD -Baseline serum creatinine around 1.2 to 1.5 mg/dL -Acute insult secondary to ischemic ATN. First dialysis 03/02 -Has been requiring renal replacement therapy -Currently on dialysis Saturday schedule. No acute indication for SIGNAL MECH[employer]IC today. Patient tolerated last dialysis on Saturday with 2 L UF. -No noted renal recovery at this time -Scheduled for angiogram tomorrow morning. We will plan for dialysis afterwards. -Continue midodrine as ordered. Off Levophed on 03/09.
[2022-03-12] MEDS: Insulin Lispro 100 UNIT/ML INSULN.PEN SC ×3 (11:36→22:10)
[2022-03-12 12:00] LABS: Bedside Glucose 220 mg/dL (74-106)
--- NOTE | 2022-03-12 13:27 | PCM.PN.ID ---
Physical Exam Narrative C/o diarrhea. Reports taking imodium every day for past 20 years. No fever. Const alert and no apparent distress General Appearance: cooperative Resp normal air movement and clear to auscultation bilaterally Cardio regular rate and regular rhythm GI soft to palpation and non-tender Skin Skin Narrative: foot wrapped ID ID: Route of nutrition/ use of supplements: [] Nutritional Intake: [] IV Site: [] Laura Catheter: [] Assessment & Plan Assessment/Plan (1) Septic shock: PLAN: Due to BLE infected ulcers and gangrene. Recent wound cx with citro, proteus, morganella, serratia, GBS, enterococcus, and anaerobes. Had been on po doxy/cipro, but those are unreliable for GBS, enterococcus, and anaerobes. Podiatry following, amputation planned. Given severity of illness, cont zosyn, adjusted zosyn to q12h based on GFR. Cdiff neg. Now off pressors. Adding probiotic. Will follow (2) DAVIS (acute kidney injury): (3) Diabetic infection of right foot:
--- NOTE | 2022-03-12 14:12 | NURSING ---
Patient has been non-compliant with therapy and refusing to move in the bed. Therapy attempted twice today to sit patient at edge of bed.
--- NOTE | 2022-03-12 15:37 | PN.HOSP_ITS ---
Subjective Subjective Patient seen and examined. He felt well and had no active complaints. He denied any fever, chills, cough, chest pain, palpitations, dizziness, nausea, vomiting or diarrhea. was by his bedside. Review of systems is otherwise negative. Objective Data Objective Data Vital Signs: Vital Signs Temp Pulse Resp BP Pulse Ox O2 Del Method O2 Flow Rate 98.3 F 101 H 23 H 111/85 H 92 Nasal Cannula 2 03/12/22 12:00 03/12/22 15:25 03/12/22 15:00 03/12/22 15:00 03/12/22 15:00 03/12/22 15:00 03/12/22 15:00 FiO2 100 03/10/22 12:54 Oxygen Flow Rate (L/min) 2 Oxygen Delivery Method Nasal Cannula Weight: 175 lb 7.807 oz Body Mass Index (BMI) 28.2 Intake & Output: Intake and Output for Last 24 Hours 03/10/22 03/11/22 03/12/22 23:59 23:59 23:59 Intake Total 160.00 / 160.00 610 / 610 100 / 100 Output Total 2045 / 2045 0 / 0 Balance -1885.00 / -1885.00 610 / 610 100 / 100 Lab / Micro Data Result Diagrams: 03/12/22 06:00 03/12/22 06:00 Labs: Laboratory Results - last 24 hr 03/11/22 17:38: POC Glucose 242 H 03/11/22 22:20: POC Glucose 190 H 03/12/22 06:00: WBC 8.9, RBC 2.80 L, Hgb 8.7 L, Hct 27.3 L, MCV 97.5 H, MCH 31.1, MCHC 31.9 L D, RDW Std Deviation 55.1 H, RDW Coeff of [place] 15.7 H, Plt Count 132 L, MPV 10.9, Immature Gran % (Auto) 0.800, Neut % (Auto) 84.2 H, Lymph % (Auto) 5.5 L, [place] % (Auto) 6.5, Eos % (Auto) 2.4, Baso % (Auto) 0.6, Absolute Neuts (auto) 7.5, Absolute Lymphs (auto) 0.49 L, Nucleated RBC % 0, Platelet Estimate SLT DEC, Anisocytosis 1+ 03/12/22 06:00: Sodium 138, Potassium 3.6, Chloride 102, Carbon Dioxide 28.0, Anion Gap 8, BUN 57 H, Creatinine 4.63 H, Estim Creat Clear Calc 12.69, Est GFR (MDRD) Af Amer 16 L, Est GFR (MDRD) Non-Af 13 L, BUN/Creatinine Ratio 12.3, Gl ucose 124 H, Calcium 8.8 03/12/22 07:46: POC Glucose 106 03/12/22 11:28: POC Glucose 220 H Micro: Microbiology 03/10/22 16:10 Stool Enteric Bacteriology - Final 03/10/22 16:10 Stool C. difficile DNA Amplification - Final 03/02/22 08:05 Blood Culture (Wb) - Neck Blood Culture - Final No growth in 5 days. 03/02/22 08:10 Blood Culture (Wb) - Right Forearm Blood Culture - Final No growth in 5 days. 03/04/22 09:40 Stool Stool Occult Blood (CANDIDA) - Final Occult Blood Positive 03/02/22 18:20 Stool C. difficile DNA Amplification - Final 03/01/22 21:30 Mucosa - Nasopharyngeal Respiratory Panel (PCR) - Final 03/01/22 22:00 Urine Catheter - Catheter Legionella Antigen - Final 03/01/22 22:00 Urine Catheter - Catheter Streptococcus pneumoniae Antigen (M - Final Rhythm Strip Rhythm Strip: Sinus Rhythm Rate: 82 Physical Exam Const alert, oriented x3 and no apparent distress HEENT head/scalp atraumatic, moist oral mucous membranes and oropharynx normal Head and Scalp: normocephalic Mouth: oral and palatal mucosa normal Eyes PERRL, EOMs intact bilaterally and conjunctivae normal Resp normal respiratory effort, no retractions, no use of accessory muscles and clear to auscultation bilaterally Cardio regular rate, regular rhythm, S1 normal heart sound, S2 normal heart sound and no murmurs GI normal to inspection, nondistended, normoactive bowel sounds, soft to palpation, non-tender and non-distended Extremity Extremity Narrative: both LEs wrapped in bandage Neuro oriented x3, CN's II-XII intact bilaterally, moves all extremities and no focal motor deficits Sensorium / Orientation: awake and alert Psych affect normal Assessment & Plan Assessment/Plan (1) Septic shock: (2) Acute on chronic systolic (congestive) heart failure: (3) Non-pressure chronic ulcer of other part of left foot with fat layer exposed: PLAN: Plan #Septic shock due to LE infected diabetic ulcers. * resolved. * now off pressors * ID on board * on IV zosyn * blood cultures are negative * #Diabetic foot ulcers * ID on board * wound cultures are polymicrobial * on IV zosyn * wound care on board * #Peripheral artery disease * vascular surgery on board. For stent placement in [facility] tomorrow * #Proxysmal afib: o coumadin, held on admission. #CAD s/p CABG and stents: on aspirin and lipitor. #Moderate aortic stenosis: #TYpe 2 diabetes mellitus * on NPH insulin 12 units qam and NPH 5 units qhs * ISS. Accuchecks ACHS * #HFrEF: not in exacerbation. Stable #ANemia due to GI bleed * on PPI * will need GI evaluation to help determine if he will resume coumadin for afib. * Hb has remained stable * Hb is 8.7 * DVT prophylaxis: SCDs Charges/Coding Visit Charges Inpatient E&M: 42034 Subs Hosp L2
[2022-03-12 17:00] LABS: Bedside Glucose 292 mg/dL (74-106)
--- NOTE | 2022-03-12 17:10 | PCM.PN.SRG ---
Subjective Subjective Overall improving. Remains off pressor support over the weekend, PO midodrine. Has not urinated since catheter removed. Feet with minimal pain. Objective Data Objective Data Vital Signs: Vital Signs Temp Pulse Resp BP Pulse Ox O2 Del Method O2 Flow Rate 98.5 F 102 H 17 109/57 L 100 Nasal Cannula 2 03/12/22 17:02 03/12/22 17:02 03/12/22 17:02 03/12/22 17:02 03/12/22 17:02 03/12/22 17:02 03/12/22 17:02 FiO2 100 03/10/22 12:54 Oxygen Flow Rate (L/min) 2 Oxygen Delivery Method Nasal Cannula Weight: 175 lb 7.807 oz Body Mass Index (BMI) 28.2 Intake & Output: Intake and Output for Last 24 Hours 03/10/22 03/11/22 03/12/22 23:59 23:59 23:59 Intake Total 160.00 / 160.00 610 / 610 100 / 100 Output Total 2045 / 2045 0 / 0 Balance -1885.00 / -1885.00 610 / 610 100 / 100 Lab / Micro Data Result Diagrams: 03/12/22 06:00 03/12/22 06:00 Labs: Laboratory Results - last 24 hr 03/11/22 17:38: POC Glucose 242 H 03/11/22 22:20: POC Glucose 190 H 03/12/22 06:00: WBC 8.9, RBC 2.80 L, Hgb 8.7 L, Hct 27.3 L, MCV 97.5 H, MCH 31.1, MCHC 31.9 L D, RDW Std Deviation 55.1 H, RDW Coeff of Nguyen 15.7 H, Plt Count 132 L, MPV 10.9, Immature Gran % (Auto) 0.800, Neut % (Auto) 84.2 H, Lymph % (Auto) 5.5 L, [place] % (Auto) 6.5, Eos % (Auto) 2.4, Baso % (Auto) 0.6, Absolute Neuts (auto) 7.5, Absolute Lymphs (auto) 0.49 L, Nucleated RBC % 0, Platelet Estimate SLT DEC, Anisocytosis 1+ 03/12/22 06:00: Sodium 138, Potassium 3.6, Chloride 102, Carbon Dioxide 28.0, Anion Gap 8, BUN 57 H, Creatinine 4.63 H, Estim Creat Clear Calc 12.69, Est GFR (MDRD) Af Amer 16 L, Est GFR (MDRD) Non-Af 13 L, BUN/Creatinine Ratio 12.3, Glucose 124 H, Calcium 8.8 03/12/22 07:46: POC Glucose 106 03/12/22 11:28: POC Glucose 220 H 03/12/22 16:35: POC Glucose 292 H Micro: Microbiology 03/10/22 16:10 Stool Enteric Bacteriology - Final 03/10/22 16:10 Stool C. difficile DNA Amplification - Final 03/02/22 08:05 Blood Culture (Wb) - Neck Blood Culture - Final No growth in 5 days. 03/02/22 08:10 Blood Culture (Wb) - Right Forearm Blood Culture - Final No growth in 5 days. 03/04/22 09:40 Stool Stool Occult Blood (CANDIDA) - Final Occult Blood Positive 03/02/22 18:20 Stool C. difficile DNA Amplification - Final 03/01/22 21:30 Mucosa - Nasopharyngeal Respiratory Panel (PCR) - Final 03/01/22 22:00 Urine Catheter - Catheter Legionella Antigen - Final 03/01/22 22:00 Urine Catheter - Catheter Streptococcus pneumoniae Antigen (M - Final Rhythm Strip Rhythm Strip: Sinus Rhythm Rate: 82 Physical Exam Const alert, oriented x3, no apparent distress and healthy appearing General Appearance: cooperative; Negative for combative or lethargic Orientation / Consciousness: awake Exam Limitations: no limitations HEENT Head and Scalp: normocephalic and atraumatic Eyes EOMs intact bilaterally General Eye: normal appearance of both eyes Neck full ROM General: trachea midline Resp normal respiratory effort and no use of accessory muscles Effort and Inspection: Negative for labored, stridor or audible wheezes Cardio regular rate and regular rhythm Back/Spine Cervical Spine: cervical ROM normal Neuro oriented x3, CN's II-XII intact bilaterally, no focal motor deficits and no sensory deficits noted Psych thought process normal, cooperative, affect normal, speech normal and activity/motor behavior normal Assessment & Plan Assessment/Plan (1) Peripheral vascular disease, unspecified: PLAN: -NPO at midnight -plan angio in AM, maximize CO2 and avoid iodinated contrast as best we can to avoid further renal insult Charges/Coding Visit Charges Inpatient E&M: 10934 Subs Hosp L1
[2022-03-12] MEDS: Atorvastatin Calcium 80 MG Tablet PO (20:19)
[2022-03-12] MEDS: 0.9% Saline Lock 10 ML Syringe IV (22:08)
[2022-03-12] MEDS: Insulin NPH Human 100 UNITS/ML PEN SC (22:12)
[2022-03-12 23:10] LABS: Bedside Glucose 237 mg/dL (74-106)
[2022-03-13] VITALS (20 sets, daily range): BP systolic 97–122; BP diastolic 50–83; PULSE 75–106; RESP 14–18; TEMP 36.1–36.7; O2SAT 94–100
[2022-03-13 04:14] LABS: Absolute Lymphocyte Count 0.52 X10^3/uL (0.83-4.51); Absolute Neutrophil Count 8.1 X10^3/uL (2.0-7.7); Basophil# 0.03 X10^3/uL; Basophil% 0.3 % (0-1); Eosinophils% 3.1 % (0-5); Lymphocyte # 0.52 X10^3/ul (0.83-4.51); Lymphocyte % 5.3 % (19-41); Mean Corp Hgb Conc 30.8 g/dL (32-36); Mean Corpuscular Volume 97.4 fL (80-94); Mean Platelet Vol. 11.3 fl (6.2-12.0); Monocyte# 0.71 X10^3/uL; Monocyte% 7.2 % (0-10); NRBC Flagged by Analyzer 0 % (0-5); Neutrophil # 8.14 X10^3/uL (2.7-7.7); POSITIVE DIFFERENTIAL YES; Platelet Count 139 K/mm3 (150-450); RBC Distribution Width CV 15.9 % (11.6-14.6); RBC Distribution Width SD 56.5 fl (35.1-43.9); Red Blood Count 2.67 M/mm3 (4.6-6.2); White Blood Count 9.8 K/mm3 (4.4-11.0)
[2022-03-13 04:20] LABS: Differential Indicated SCAN CRITERIA MET
[2022-03-13 04:29] LABS: Albumin, Serum 2.2 g/dL (3.2-5.0); Anion Gap 8 (5-15); BUN 68 mg/dL (7-18); BUN/Creat Ratio 12.2 RATIO (10-20); Calcium,Total 8.7 mg/dL (8.5-10.1); Chloride 101 mmol/L (98-107); Creatinine, Serum 5.56 mg/dL (0.70-1.30); EST Glomerular Filtration Rate 11 mL/min (>60); Est Glom Filt Rate - Afr Amer 13 mL/min (>60); Estimated Creatinine Clearance 10.57 ml/min; Glucose 118 mg/dL (74-106); Phosphorus 4.3 mg/dL (2.5-4.9); Potassium 3.9 mmol/L (3.5-5.1); Sodium Level 136 mmol/L (136-145)
[2022-03-13 04:40] LABS: Anisocytosis 1+; Macrocytosis 1+; Platelet Estimate SLT DEC (ADEQ)
--- NOTE | 2022-03-13 05:55 | EKG12_ITS ---
Test Reason : PRE OP Blood Pressure : / mmHG Vent. Rate : 085 BPM Atrial Rate : 085 BPM P-R Int : 200 ms QRS Dur : 132 ms QT Int : 396 ms P-R-T Axes : 066 195 031 degrees QTc Int : 471 ms Sinus rhythm with Premature supraventricular complexes and with frequent Premature ventricular comple xes Non-specific intra-ventricular conduction block Inferior infarct , age undetermined, cannot be excluded Poor R wave progression Abnormal ECG Confirmed by YAN SANCHEZ, RAUL ([id number]), features editor CHINYERE FIELDS ([id number]) on 03/14/2022 9:03:27 AM Referred By: EVE Confirmed By:RAUL HEREDIA MD
[2022-03-13] MEDS: Aspirin E.C. 81 MG Tablet PO (06:38)
[2022-03-13] MEDS: Menthol/Lanolin/Calamine/Znox 113 GM Tube 1 APPLIC TOPICAL ×2 (06:40→20:43)
[2022-03-13 07:11] LABS: Bedside Glucose 108 mg/dL (74-106)
--- NOTE | 2022-03-13 11:10 | PCM.PN.REN ---
Subjective Subjective Following for DAVIS on CKD. The patient remains dialysis dependent. He is seen after arteriogram procedure. He is complaining of lower extremity pain. He denies chest pain, shortness of breath, or nausea. Objective Data Objective Data Vital Signs: Vital Signs Temp Pulse Resp BP Pulse Ox O2 Del Method O2 Flow Rate 97.0 F L 88 18 104/62 99 Nasal Cannula 2 03/13/22 06:35 03/13/22 07:02 03/13/22 06:35 03/13/22 06:35 03/13/22 06:44 03/13/22 06:44 03/13/22 06:44 FiO2 100 03/13/22 06:35 Oxygen Flow Rate (L/min) 2 Oxygen Delivery Method Nasal Cannula Weight: 81.6 kg Body Mass Index (BMI) 28.2 Intake & Output: Intake and Output for Last 24 Hours 03/11/22 03/12/22 03/13/22 23:59 23:59 23:59 Intake Total 610 / 610 100 / 220 170 / 170 Output Total 0 / 0 0 / 0 Balance 610 / 610 100 / 220 170 / 170 Lab / Micro Data Result Diagrams: 03/13/22 04:06 03/13/22 04:06 Labs: Laboratory Results - last 24 hr 03/12/22 11:28: POC Glucose 220 H 03/12/22 16:35: POC Glucose 292 H 03/12/22 22:10: POC Glucose 237 H 03/13/22 04:06: Sodium 136, Potassium 3.9, Chloride 101, Carbon Dioxide 27.0, Anion Gap 8, BUN 68 H, Creatinine 5.56 H, Estim Creat Clear Calc 10.57, Est GFR (MDRD) Af Amer 13 L, Est GFR (MDRD) Non-Af 11 L, BUN/Creatinine Ratio 12.2, Glucose 118 H, Calcium 8.7, Phosphorus 4.3, Albumin 2.2 L 03/13/22 04:06: WBC 9.8, RBC 2.67 L, Hgb 8.0 L, Hct 26.0 L, MCV 97.4 H, MCH 30.0, MCHC 30.8 L, RDW Std Deviation 56.5 H, RDW Coeff of Nguyen 15.9 H, Plt Count 139 L, MPV 11.3, Immature Gran % (Auto) 1.100 H, Neut % (Auto) 83.0 H, Lymph % (Auto) 5.3 L, [place] % (Auto) 7.2, Eos % (Auto) 3.1, Baso % (Auto) 0.3, Absolute Neuts (auto) 8.1 H, Absolute Lymphs (auto) 0.52 L, Nucleated RBC % 0, Platelet Estimate SLT DEC, Anisocytosis 1+, Macrocytosis 1+ 03/13/22 06:41: POC Glucose 108 H Micro: Microbiology 03/10/22 16:10 Stool Enteric Bacteriology - Final 03/10/22 16:10 Stool C. difficile DNA Amplification - Final 03/02/22 08:05 Blood Culture (Wb) - Neck Blood Culture - Final No growth in 5 days. 03/02/22 08:10 Blood Culture (Wb) - Right Forearm Blood Culture - Final No growth in 5 days. 03/04/22 09:40 Stool Stool Occult Blood (CANDIDA) - Final Occult Blood Positive 03/02/22 18:20 Stool C. difficile DNA Amplification - Final 03/01/22 21:30 Mucosa - Nasopharyngeal Respiratory Panel (PCR) - Final 03/01/22 22:00 Urine Catheter - Catheter Legionella Antigen - Final 03/01/22 22:00 Urine Catheter - Catheter Streptococcus pneumoniae Antigen (M - Final Rhythm Strip Rhythm Strip: Sinus Rhythm Rate: 82 Physical Exam Narrative Alert and oriented x3, no apparent distress Lung sounds clear anteriorly, no wheezes, rhonchi or rales noted S1, S2, RRR Abdomen soft, nontender No significant lower extremity pitting edema. Dressings clean dry and intact to bilateral feet Left internal jugular tunneled HD catheter exit site looks clean, dry and intact Assessment & Plan Assessment/Plan (1) DAVIS (acute kidney injury): PLAN: . (2) Chronic kidney disease, stage 3b: (3) Hypotension: (4) Anemia: (5) Ischemic cardiomyopathy: (6) Peripheral vascular disease, unspecified: PLAN: Plan Impression/Plan: The patient is a 76-year-old man with past history of type 2 diabetes mellitus, CKD stage IIIb, CAD, heart failure with reduced ejection fraction (EF 35%) likely due to ischemic cardiomyopathy, atrial fibrillation, PAD, RITESH, alcohol use disorder, and hyperlipidemia. The patient was admitted to the hospital on 03/01/2022 because of nonhealing bilateral foot ulcer. The patient was treated for septic shock due to foot infection. Nephrology is following for dialysis dependent DAVIS on CKD. Acute kidney injury on chronic kidney disease stage IIIb. Prior baseline serum creatinine had been around 1.50 mg/dL (01/23/2022). I suspect the patient has underlying diabetic kidney disease or nephrosclerosis related to PAD. DAVIS is secondary to ischemic ATN from circulatory shock/sepsis. The patient was started on dialysis on 03/02/2022. He remains dialysis dependent on TTS schedule. Dialysis later today after angiogram. Will continue to monitor for any renal recovery. Hypotension. This is thought to be related to sepsis. The patient also has ischemic cardiomyopathy. Although BP is acceptable, he is still on midodrine. Continue to follow BP particularly during dialysis. Anemia. Hemoglobin is low but stable at 8.0 g/dL. There is no role for TIMOTEO from nephrology standpoint in the setting of DAVIS. Transfuse if hemoglobin remains below 7.0 g/dL. PAD. Status post angiogram of the lower extremities today per vascular. Heart failure with reduced ejection fraction/ischemic cardiomyopathy. The patient appears to be compensated without overt volume overload. Continue keep O>I with IHD. Unfortunately, he is unable to tolerate medication for heart failure such as beta-perez or RAAS inhibitor because of hypotension and DAVIS. Nephrology plan will be discussed with Dr. Medrano.
--- NOTE | 2022-03-13 11:38 | WOUNDNOTE ---
Pt is currently off the unit for vascular procedure.
[2022-03-13] MEDS: Loperamide 2 MG Capsule PO ×4 (12:10→22:42)
[2022-03-13] MEDS: Acetaminophen 325 MG Tablet 650 MG PO ×2 (12:10→22:31)
--- NOTE | 2022-03-13 13:44 | PCM.OPRPT ---
Report of Operation Date of Procedure: 03/13/22 Pre-Operative Diagnosis: atherosclerosis with gangrene, bilateral lower extremities Post-Operative Diagnosis: Same Surgery/Procedure Performed:: Aortogram, left lower extremity runoff, left popliteal angioplasty, left anterior tibial angioplasty Surgeon: Mando Santo Type of Anesthesia: Local and Sedation,Conscious Estimated Blood Loss (mL): 5 Description of Procedure: HPI: Patient is a 76-year-old male who presented with sepsis, wet gangrene of left lower extremity, and acute kidney injury. His soft tissue infection responded to antibiotics, however his renal function declined to the point where he required dialysis. While admitted he is made slow recovery physiologically however he remains dialysis dependent. His foot is remained stable with now dry gangrene of the great toe and he has abnormal PVRs. Is a history of prior tibial intervention approximately 8 years prior for similar situation. He presents now for angiogram with possible intervention utilizing CO2. Description of procedure: Upon obtaining form consent and verification correct patient procedure site patient was taken to the [facility] where he was positioned prepped and draped in usual fashion. Timeout was then performed and conscious sedation administered with intermittent doses of Versed and fentanyl. Skin overlying the right common femoral artery was anesthetized 1% lidocaine and utilizing ultrasound and micropuncture needle wire we accessed in retrograde fashion. This exchanged for micropuncture sheath through which [employer] wire was advanced into the abdominal aorta and the micropuncture sheath exchanged out for a short 5 Tunisian sheath. Through the 5 Tunisian sheath a Omni Flush catheter advanced abdominal aorta and subtraction CO2 angiogram aorta and iliac vessels were performed. With a navigated contralateral iliac system advancing our catheter initially into the distal external iliac artery. This position sequential left lower extremity CO2 angiography was performed which revealed focal high-grade stenosis of the mid popliteal artery, and poor visualization of the tibials. We then selectively cannulated the SFA popliteal with angled glide wire and catheter advancing into the distal popliteal artery. From this position hand-injection angiography the tibial vessels were performed with contrast which revealed patent peroneal artery which had been the previous location of intervention. Anterior tibial was chronically totally occluded, and was noted as such at the prior intervention. Posterior tibial artery was patent for about 3 cm before totally occluding and terminating in a collateral branch, also similar to prior. There is reconstitution of the dorsalis pedis artery via collaterals from the terminus of the peroneal artery. Overall there is poor filling of vessels within the foot beyond the dorsalis pedis. It was felt that intervention on the anterior tibial artery would be necessary to adequately improve perfusion, but also the popliteal artery needed intervention as well. We then advanced a short Amplatz wire position in the distal popliteal artery, and exchanged out the catheter and 5 Tunisian sheath for a 6 Tunisian 55 Ansell sheath. Through this utilizing an array of catheter and wire selections we ultimately were able to cannulate the posterior tibial artery origin with a command 18 wire however at the point of occlusion our wire would only go into the collateral rather than maintain trajectory within the posterior tibial artery. We then withdrew back into the popliteal artery and attempted to engage the ostium of the anterior tibial artery with multiple attempts ultimately utilizing a command 250 T wire and a KMP catheter, successfully entering into the proximal portion of the vessel. We exchanged out the KMP catheter for a quick cross catheter, which was able to engage the ostia and then exchanged the command 250 for a command 18 wire. We will partially traverse the total occlusion however we could not advance the catheter beyond the ostia. Next a 1.2 mm [place] coronary balloon was brought to field and prep for advisory internship instructions. The quick cross catheter was then exchanged for the balloon which was advanced in the midportion of the anterior tibial artery, and sequential balloon inflation along the length proximal anterior tibial was performed to nominal. There was then withdrawn and a quick cross was readvanced at this time able to traverse the ostia and entering the proximal and then and ultimately midportion of the anterior tibial artery. Ultimately able to get our command 18 wire to the distal third of the vessel but no further progress can be made. At this point we prepped the foot and attempted retrograde dorsalis pedis access. We were able to successfully access the vessel however there was not enough length patent to allow wire support to exchanged for a micro sheath. [place] that we exhausted all efforts at treating the tibial disease, so this point we decided to treat the popliteal and at least improve her inflow. A [employer] Vascular Serranator scoring balloon 5 mm x 40 was then brought to field prep for advisory internship instructions. This then advanced over the 018 wire into position the distal aspect of the popliteal lesion. Is inflated nominal for 2 minutes then deflated pulled back and a second segment inflation performed and normal for 2 minutes deflated withdrawn. Angiography confirmed satisfactory lesion response to the angioplasty with minimal residual stenosis and no extravasation or dissection. Next a [employer] 5 x 80 StellaRex drug-coated balloon was selected and advanced in the position of the lesion, inflated to nominal for 1 minute and then deflated withdrawn. Completion angiography confirmed satisfactory lesion response with no extravasation or dissection less than 30% residual stenosis. There is now brisk contrast transit across the popliteal and into the tibial trifurcation. The balloon was then withdrawn and the 018 wire exchanged for a 035 wire and 6 Tunisian sheath exchanged for a short 6 Tunisian sheath. A 6 Tunisian minx was then deployed followed by 2 minutes of manual pressure with satisfactory stasis noted. Patient was then awakened from sedation and taken to the PCU for recovery bedrest.
[2022-03-13] MEDS: Pantoprazole Sodium 40 MG Tablet PO ×2 (14:30→20:41)
[2022-03-13] MEDS: Juven (unflavored) Packet 1 PACKET PO ×2 (14:32→17:25)
[2022-03-13] MEDS: Midodrine HCl 5 MG Tablet 10 MG PO ×3 (14:32→20:41)
[2022-03-13 14:46] LABS: Bedside Glucose 120 mg/dL (74-106)
--- NOTE | 2022-03-13 16:00 | PN.HOSP_ITS ---
Subjective Subjective Patient seen and examined. HE had aortogram with left lower extremity runoff and left popliteal angioplasty and left anterior tibial angioplasty. He had no complaints. Review of systems is otherwise negative. Objective Data Objective Data Vital Signs: Vital Signs Temp Pulse Resp BP Pulse Ox O2 Del Method O2 Flow Rate 98.0 F 98 16 100/66 98 Nasal Cannula 3 03/13/22 15:00 03/13/22 15:00 03/13/22 15:00 03/13/22 15:00 03/13/22 15:00 03/13/22 15:00 03/13/22 15:00 FiO2 100 03/13/22 06:35 Oxygen Flow Rate (L/min) 3 Oxygen Delivery Method Nasal Cannula Weight: 179 lb 14.355 oz Body Mass Index (BMI) 28.2 Intake & Output: Intake and Output for Last 24 Hours 03/11/22 03/12/22 03/13/22 23:59 23:59 23:59 Intake Total 610 / 610 100 / 220 220 / 220 Output Total 0 / 0 0 / 0 Balance 610 / 610 100 / 220 220 / 220 Lab / Micro Data Result Diagrams: 03/13/22 04:06 03/13/22 04:06 Labs: Laboratory Results - last 24 hr 03/12/22 16:35: POC Glucose 292 H 03/12/22 22:10: POC Glucose 237 H 03/13/22 04:06: Sodium 136, Potassium 3.9, Chloride 101, Carbon Dioxide 27.0, Anion Gap 8, BUN 68 H, Creatinine 5.56 H, Estim Creat Clear Calc 10.57, Est GFR (MDRD) Af Amer 13 L, Est GFR (MDRD) Non-Af 11 L, BUN/Creatinine Ratio 12.2, Glucose 118 H, Calcium 8.7, Phosphorus 4.3, Albumin 2.2 L 03/13/22 04:06: WBC 9.8, RBC 2.67 L, Hgb 8.0 L, Hct 26.0 L, MCV 97.4 H, MCH 30.0, MCHC 30.8 L, RDW Std Deviation 56.5 H, RDW Coeff of Nguyen 15.9 H, Plt Count 139 L, MPV 11.3, Immature Gran % (Auto) 1.100 H, Neut % (Auto) 83.0 H, Lymph % (Auto) 5.3 L, [place] % (Auto) 7.2, Eos % (Auto) 3.1, Baso % (Auto) 0.3, Absolute Neuts (auto) 8.1 H, Absolute Lymphs (auto) 0.52 L, Nucleated RBC % 0, Platelet Estimate SLT DEC, Anisocytosis 1+, Macrocytosis 1+ 03/13/22 06:41: POC Glucose 108 H 03/13/22 14:24: POC Glucose 120 H Micro: Microbiology 03/10/22 16:10 Stool Enteric Bacteriology - Final 03/10/22 16:10 Stool C. difficile DNA Amplification - Final 03/02/22 08:05 Blood Culture (Wb) - Neck Blood Culture - Final No growth in 5 days. 03/02/22 08:10 Blood Culture (Wb) - Right Forearm Blood Culture - Final No growth in 5 days. 03/04/22 09:40 Stool Stool Occult Blood (CANDIDA) - Final Occult Blood Positive 03/02/22 18:20 Stool C. difficile DNA Amplification - Final 03/01/22 21:30 Mucosa - Nasopharyngeal Respiratory Panel (PCR) - Final 03/01/22 22:00 Urine Catheter - Catheter Legionella Antigen - Final 03/01/22 22:00 Urine Catheter - Catheter Streptococcus pneumoniae Antigen (M - Final Rhythm Strip Rhythm Strip: Sinus Rhythm Rate: 82 Physical Exam Const alert, oriented x3 and no apparent distress General Appearance: cooperative, well kempt and well developed Orientation / Consciousness: awake, oriented to person, oriented to place and oriented to time HEENT normocephalic, head/scalp atraumatic, moist oral mucous membranes and oropharynx normal Head and Scalp: normocephalic Mouth: oral and palatal mucosa normal Eyes PERRL, EOMs intact bilaterally and conjunctivae normal Neck no lymphadenopathy, supple, no JVD, thyroid normal and no carotid bruits General: trachea midline Resp normal respiratory effort, no retractions, no use of accessory muscles and clear to auscultation bilaterally Auscultation: Negative for rales, rhonchi or wheezes Cardio regular rate, regular rhythm, S1 normal heart sound, S2 normal heart sound, no rub and no gallops Cardio Narrative: grade 2/6 systolic murmur noted at the apex, right sternal border, and left sternal border. GI normal to inspection, nondistended, normoactive bowel sounds, soft to palpation, non-tender and non-distended Extremity Extremity Narrative: both LEs wrapped in bandage Skin Skin Narrative: bilateral LE wrapped in bandage Neuro oriented x3, CN's II-XII intact bilaterally, moves all extremities, no focal motor deficits and no sensory deficits noted Sensorium / Orientation: awake and alert Speech: speech normal Psych affect normal Assessment & Plan Assessment/Plan (1) Septic shock: (2) Acute on chronic systolic (congestive) heart failure: (3) Non-pressure chronic ulcer of other part of left foot with fat layer exposed: PLAN: Plan #Septic shock due to LE infected diabetic ulcers. * resolved. * now off pressors * ID on board * on IV zosyn * blood cultures are negative * #Diabetic foot ulcers * ID on board * wound cultures are polymicrobial * on IV zosyn * wound care on board * #Peripheral artery disease * s/p Aortogram, left lower extremity runoff, left popliteal angioplasty, left anterior tibial angioplasty * today is POD 0 * vascular surgery on board. * #Proxysmal afib: on coumadin, held on admission. #CAD s/p CABG and stents: on aspirin and lipitor. #Moderate aortic stenosis: #TYpe 2 diabetes mellitus * on NPH insulin 12 units qam and NPH 5 units qhs * ISS. Accuchecks ACHS * #HFrEF: not in exacerbation. Stable #ANemia due to GI bleed * on PPI * will need GI evaluation to help determine if he will resume coumadin for afib. * Hb has remained stable * Hb is 8 today * consult GI * DVT prophylaxis: SCDs Charges/Coding Visit Charges Inpatient E&M: 02636 Subs Hosp L2
[2022-03-13 18:08] LABS: ACT Activated Clotting Time 311 sec (74-137)
[2022-03-13 18:12] LABS: ACT Activated Clotting Time 281 sec (74-137)
[2022-03-13] MEDS: Heparin 10,000 UNITS/10 ML Vial IV (19:00)
--- NOTE | 2022-03-13 19:09 | DIALYSIS ---
Hemodialysis complete. 3.5 hour run, 2k bath. Net fluid removed = 1000 ml. Patient tolerated HD tx well. Left chest CVC: site benign, biofilm dressing dry and intact. Lumen flushed with NS, filled to volume with Heparin, clamped and capped. Report given to primary RNAmbar.
[2022-03-13] MEDS: MELATONIN 3 MG TABLET PO (20:40)
[2022-03-13] MEDS: Atorvastatin Calcium 80 MG Tablet PO (20:41)
[2022-03-13] MEDS: Insulin Lispro 100 UNIT/ML INSULN.PEN SC (20:47)
[2022-03-13] MEDS: Insulin NPH Human 100 UNITS/ML PEN SC (20:47)
[2022-03-13] MEDS: 0.9% Saline Lock 10 ML Syringe IV (20:53)
[2022-03-13 22:25] LABS: Bedside Glucose 218 mg/dL (74-106)
[2022-03-13] MEDS: Albuterol 2.5 MG/3 ML VIAL.NEB. INHALATION (22:54)
--- NOTE | 2022-03-13 23:41 | PCM.HOSP.N ---
Hospitalist Note Received message regarding Mr. Brandt reporting a generalized feeling of being unwell with an emphasis on difficulty falling asleep, received melatonin x1. Also got a breathing treatment. Vitally stable, no hypoxia. Reviewed chart. Went to talk with pt but he was resting comfortably in bed so he was not woken. Put for another 6mg of melatonin if he wakes up and has difficulty falling back asleep again.
[2022-03-14] VITALS (12 sets, daily range): BP systolic 92–105; BP diastolic 48–84; PULSE 76–103; RESP 16–20; TEMP 36.1–36.9; O2SAT 96–100
[2022-03-14] MEDS: Menthol/Lanolin/Calamine/Znox 113 GM Tube 1 APPLIC TOPICAL ×3 (05:58→21:16)
[2022-03-14 07:50] LABS: Absolute Lymphocyte Count 0.58 X10^3/uL (0.83-4.51); Absolute Neutrophil Count 7.9 X10^3/uL (2.0-7.7); Basophil# 0.04 X10^3/uL; Basophil% 0.4 % (0-1); Eosinophil# 0.15 X10^3/uL; Eosinophils% 1.6 % (0-5); Hematocrit 24.5 % (40-54); Hemoglobin 7.6 g/dL (13.0-16.5); Lymphocyte # 0.58 X10^3/ul (0.83-4.51); Lymphocyte % 6.2 % (19-41); Mean Corpuscular Hgb 29.9 pg (27.0-32.0); Mean Corpuscular Volume 96.5 fL (80-94); Mean Platelet Vol. 10.8 fl (6.2-12.0); Monocyte# 0.67 X10^3/uL; Monocyte% 7.1 % (0-10); NRBC Flagged by Analyzer 0 % (0-5); Neutrophil # 7.85 X10^3/uL (2.7-7.7); Neutrophil % 83.6 % (47-70); POSITIVE DIFFERENTIAL YES; Platelet Count 124 K/mm3 (150-450); RBC Distribution Width CV 16.2 % (11.6-14.6); RBC Distribution Width SD 57.1 fl (35.1-43.9); Red Blood Count 2.54 M/mm3 (4.6-6.2); White Blood Count 9.4 K/mm3 (4.4-11.0)
[2022-03-14] MEDS: Pantoprazole Sodium 40 MG Tablet PO ×2 (07:55→21:18)
[2022-03-14] MEDS: Midodrine HCl 5 MG Tablet 10 MG PO ×3 (07:55→16:26)
[2022-03-14] MEDS: Clopidogrel Bisulfate 75 MG Tablet PO (07:56)
[2022-03-14] MEDS: Aspirin E.C. 81 MG Tablet PO (07:56)
[2022-03-14] MEDS: Juven (unflavored) Packet 1 PACKET PO ×2 (07:56→16:26)
[2022-03-14] MEDS: Insulin NPH Human 100 UNITS/ML PEN 12 UNITS SC (07:56)
[2022-03-14 08:17] LABS: Anion Gap 8 (5-15); BUN 48 mg/dL (7-18); Calcium,Total 8.5 mg/dL (8.5-10.1); Chloride 101 mmol/L (98-107); EST Glomerular Filtration Rate 17 mL/min (>60); Est Glom Filt Rate - Afr Amer 21 mL/min (>60); Estimated Creatinine Clearance 15.88 ml/min; Glucose 163 mg/dL (74-106); Sodium Level 136 mmol/L (136-145)
[2022-03-14 08:25] LABS: Bedside Glucose 158 mg/dL (74-106)
[2022-03-14 08:25] LABS: Differential Indicated SCAN CRITERIA MET
--- NOTE | 2022-03-14 08:26 | WOUNDNOTE ---
shift nurse reported small open area to the coccyx. pt adamantly refusing to let this nurse turn patient to assess buttocks. pt states they just put cream on it. No you are not turning me again. informed patient this nurse will check back later to assess.
--- NOTE | 2022-03-14 08:33 | WOUNDNOTE ---
wound photo: left lower leg
--- NOTE | 2022-03-14 08:34 | WOUNDNOTE ---
wound photo: left lower leg/foot
--- NOTE | 2022-03-14 08:35 | WOUNDNOTE ---
wound photo: left lateral foot/heel
[2022-03-14] MEDS: Acetaminophen 325 MG Tablet 650 MG PO ×2 (09:03→13:36)
[2022-03-14] MEDS: Loperamide 2 MG Capsule PO ×3 (09:03→21:15)
--- NOTE | 2022-03-14 09:06 | WOUNDNOTE ---
Pt did allow this nurse assess buttocks since he had a small BM and small amount of urine incontinence. german care provided. did not apply the Mepilex since it will most likely get stool contamination. applied calmoseptine. Pt medicated with Tylenol for right leg discomfort and Imodium for slightly loose stool per patient request. pt tolerated well and denies further needs at this time.
[2022-03-14 09:52] LABS: Differential Comment SCANNED
--- NOTE | 2022-03-14 09:58 | PN.RENAL_ITS ---
Subjective Subjective Following for DAVIS on CKD Patient is resting quietly in bed. No complaints with exception of still having loose stools. No overnight events. Objective Data Objective Data Vital Signs: Vital Signs Temp Pulse Resp BP Pulse Ox O2 Del Method O2 Flow Rate 98.5 F 100 18 105/84 H 100 Nasal Cannula 2 03/14/22 06:13 03/14/22 07:06 03/14/22 06:13 03/14/22 06:13 03/14/22 09:07 03/14/22 09:07 03/14/22 09:07 FiO2 100 03/14/22 04:28 Oxygen Flow Rate (L/min) 2 Oxygen Delivery Method Nasal Cannula Weight: 79.2 kg Body Mass Index (BMI) 28.2 Intake & Output: Intake and Output for Last 24 Hours 03/12/22 03/13/22 03/14/22 23:59 23:59 23:59 Intake Total 100 / 220 620 / 740 290 / 290 Output Total 0 / 0 1000 / 1000 0 / 0 Balance 100 / 220 -380 / -260 290 / 290 Lab / Micro Data Result Diagrams: 03/14/22 07:35 03/14/22 07:35 Labs: Laboratory Results - last 24 hr 03/13/22 09:15: Activated Clotting Time 311 H 03/13/22 09:45: Activated Clotting Time 281 H 03/13/22 14:24: POC Glucose 120 H 03/13/22 20:46: POC Glucose 218 H 03/14/22 07:35: WBC 9.4, RBC 2.54 L, Hgb 7.6 L, Hct 24.5 L, MCV 96.5 H, MCH 29.9, MCHC 31.0 L, RDW Std Deviation 57.1 H, RDW Coeff of Nguyen 16.2 H, Plt Count 124 L, MPV 10.8, Immature Gran % (Auto) 1.100 H, Neut % (Auto) 83.6 H, Lymph % (Auto) 6.2 L, [place] % (Auto) 7.1, Eos % (Auto) 1.6, Baso % (Auto) 0.4, Absolute Neuts (auto) 7.9 H, Absolute Lymphs (auto) 0.58 L, Nucleated RBC % 0, Differential Comment SCANNED 03/14/22 07:35: Sodium 136, Potassium 4.0, Chloride 101, Carbon Dioxide 27.0, Anion Gap 8, BUN 48 H, Creatinine 3.70 H, Estim Creat Clear Calc 15.88, Est GFR (MDRD) Af Amer 21 L, Est GFR (MDRD) Non-Af 17 L, BUN/Creatinine Ratio 13.0, Glucose 163 H, Calcium 8.5 03/14/22 07:52: POC Glucose 158 H Micro: Microbiology 03/10/22 16:10 Stool Enteric Bacteriology - Final 03/10/22 16:10 Stool C. difficile DNA Amplification - Final 03/02/22 08:05 Blood Culture (Wb) - Neck Blood Culture - Final No growth in 5 days. 03/02/22 08:10 Blood Culture (Wb) - Right Forearm Blood Culture - Final No growth in 5 days. 03/04/22 09:40 Stool Stool Occult Blood (CANDIDA) - Final Occult Blood Positive 03/02/22 18:20 Stool C. difficile DNA Amplification - Final 03/01/22 21:30 Mucosa - Nasopharyngeal Respiratory Panel (PCR) - Final 03/01/22 22:00 Urine Catheter - Catheter Legionella Antigen - Final 03/01/22 22:00 Urine Catheter - Catheter Streptococcus pneumoniae Antigen (M - Final Rhythm Strip Rhythm Strip: Sinus Rhythm Rate: 82 Physical Exam Narrative Alert and oriented x3, no apparent distress Lung sounds clear anteriorly, no wheezes, rhonchi or rales noted S1, S2, RRR Abdomen soft, nontender No significant lower extremity pitting edema. Dressings clean dry and intact to bilateral feet Left internal jugular tunneled HD catheter exit site looks clean, dry and intact Assessment & Plan Assessment/Plan (1) DAVIS (acute kidney injury): PLAN: . (2) Chronic kidney disease, stage 3b: (3) Hypotension: (4) Anemia: (5) Ischemic cardiomyopathy: (6) Peripheral vascular disease, unspecified: PLAN: Plan - dialysis dependent DAVIS on CKD. No acute indication for RISK LEAD today, will likely plan for dialysis tomorrow. - Prior baseline serum creatinine had been around 1.50 mg/dL (01/23/2022). Suspect the patient has underlying diabetic kidney disease or nephrosclerosis related to PAD. - DAVIS is secondary to ischemic ATN from circulatory shock/sepsis. The patient was started on dialysis on 03/02/2022. Patient is essentially anuric. -We will continue to monitor for any renal recovery. -Hypotension thought to be related to sepsis. The patient also has ischemic cardiomyopathy, EF 35%. Continue midodrine 10 mg 3 times daily. - Status post angiogram of the lower extremities per vascular. On IV antibiotics. -Dialysis discharge plans discussed with social work associate and discharge planning team. Patient will need outpatient dialysis arrangements at [facility].
--- NOTE | 2022-03-14 10:17 | WOUNDNOTE ---
wound photo: rocio
[2022-03-14] MEDS: Insulin Lispro 100 UNIT/ML INSULN.PEN SC ×3 (11:05→21:16)
--- NOTE | 2022-03-14 11:47 | PN.HOSP_ITS ---
Subjective Subjective Patient seen and examined. He complains of pain in his lower extremities. review of systems is otherwise negative. BP is running low at 98/48. He was having dialysis. Review of systems is othewise negative. Objective Data Objective Data Vital Signs: Vital Signs Temp Pulse Resp BP Pulse Ox O2 Del Method O2 Flow Rate 97.2 F L 96 20 H 98/48 L 100 Nasal Cannula 3 03/14/22 10:58 03/14/22 10:58 03/14/22 10:58 03/14/22 10:58 03/14/22 10:58 03/14/22 10:58 03/14/22 10:58 FiO2 100 03/14/22 04:28 Oxygen Flow Rate (L/min) 3 Oxygen Delivery Method Nasal Cannula Weight: 174 lb 9.698 oz Body Mass Index (BMI) 28.2 Intake & Output: Intake and Output for Last 24 Hours 03/12/22 03/13/22 03/14/22 23:59 23:59 23:59 Intake Total 100 / 220 620 / 740 290 / 290 Output Total 0 / 0 1000 / 1000 0 / 0 Balance 100 / 220 -380 / -260 290 / 290 Lab / Micro Data Result Diagrams: 03/14/22 07:35 03/14/22 07:35 Labs: Laboratory Results - last 24 hr 03/13/22 09:15: Activated Clotting Time 311 H 03/13/22 09:45: Activated Clotting Time 281 H 03/13/22 14:24: POC Glucose 120 H 03/13/22 20:46: POC Glucose 218 H 03/14/22 07:35: WBC 9.4, RBC 2.54 L, Hgb 7.6 L, Hct 24.5 L, MCV 96.5 H, MCH 29.9, MCHC 31.0 L, RDW Std Deviation 57.1 H, RDW Coeff of Nguyen 16.2 H, Plt Count 124 L, MPV 10.8, Immature Gran % (Auto) 1.100 H, Neut % (Auto) 83.6 H, Lymph % (Auto) 6.2 L, [place] % (Auto) 7.1, Eos % (Auto) 1.6, Baso % (Auto) 0.4, Absolute Neuts (auto) 7.9 H, Absolute Lymphs (auto) 0.58 L, Nucleated RBC % 0, Differential Comment SCANNED 03/14/22 07:35: Sodium 136, Potassium 4.0, Chloride 101, Carbon Dioxide 27.0, Anion Gap 8, BUN 48 H, Creatinine 3.70 H, Estim Creat Clear Calc 15.88, Est GFR (MDRD) Af Amer 21 L, Est GFR (MDRD) Non-Af 17 L, BUN/Creatinine Ratio 13.0, Glucose 163 H, Calcium 8.5 03/14/22 07:52: POC Glucose 158 H Micro: Microbiology 03/10/22 16:10 Stool Enteric Bacteriology - Final 03/10/22 16:10 Stool C. difficile DNA Amplification - Final 03/02/22 08:05 Blood Culture (Wb) - Neck Blood Culture - Final No growth in 5 days. 03/02/22 08:10 Blood Culture (Wb) - Right Forearm Blood Culture - Final No growth in 5 days. 03/04/22 09:40 Stool Stool Occult Blood (CANDIDA) - Final Occult Blood Positive 03/02/22 18:20 Stool C. difficile DNA Amplification - Final 03/01/22 21:30 Mucosa - Nasopharyngeal Respiratory Panel (PCR) - Final 03/01/22 22:00 Urine Catheter - Catheter Legionella Antigen - Final 03/01/22 22:00 Urine Catheter - Catheter Streptococcus pneumoniae Antigen (M - Final Rhythm Strip Rhythm Strip: Sinus Rhythm Rate: 82 Physical Exam Const alert, oriented x3 and no apparent distress Constitutional Narrative: Patient appears much older than his stated age General Appearance: cooperative, well kempt and well developed Orientation / Consciousness: awake, oriented to person, oriented to place and oriented to time HEENT normocephalic, head/scalp atraumatic, moist oral mucous membranes and oropharynx normal Eyes PERRL, EOMs intact bilaterally and conjunctivae normal Neck no lymphadenopathy, supple, no JVD, thyroid normal and no carotid bruits General: trachea midline Resp normal respiratory effort, no retractions, no use of accessory muscles and clear to auscultation bilaterally Auscultation: Negative for rales, rhonchi or wheezes Cardio regular rate, regular rhythm, S1 normal heart sound, S2 normal heart sound, no rub and no gallops Cardio Narrative: grade 2/6 systolic murmur noted at the apex, right sternal border, and left sternal border. GI normal to inspection, nondistended, normoactive bowel sounds, soft to palpation, non-tender and non-distended Extremity Extremity Narrative: both LEs wrapped in bandage Skin Skin Narrative: bilateral LE wrapped in bandage Neuro oriented x3, CN's II-XII intact bilaterally, moves all extremities, no focal motor deficits and no sensory deficits noted Sensorium / Orientation: awake and alert Speech: speech normal Psych affect normal Assessment & Plan Assessment/Plan (1) Septic shock: (2) Acute on chronic systolic (congestive) heart failure: (3) Non-pressure chronic ulcer of other part of left foot with fat layer exposed: PLAN: Plan #Septic shock due to LE infected diabetic ulcers. * resolved. * now off pressors * ID on board * on IV zosyn * blood cultures are negative * #Diabetic foot ulcers * ID on board * wound cultures are polymicrobial * on IV zosyn * wound care on board * #Peripheral artery disease * s/p Aortogram, left lower extremity runoff, left popliteal angioplasty, left anterior tibial angioplasty * today is POD 0 * vascular surgery on board. * #Proxysmal afib: on coumadin, held on admission. #CAD s/p CABG and stents: on aspirin and lipitor. #Moderate aortic stenosis: #TYpe 2 diabetes mellitus * on NPH insulin 12 units qam and NPH 5 units qhs * ISS. Accuchecks ACHS * #HFrEF: not in exacerbation. Stable #ANemia due to GI bleed * on PPI * will need GI evaluation to help determine if he will resume coumadin for afib. * Hb has remained stable * Hb is 7.6 today * consult GI * DVT prophylaxis: SCDs Charges/Coding Visit Charges Inpatient E&M: 53277 Subs Hosp L3
[2022-03-14 11:55] LABS: Bedside Glucose 186 mg/dL (74-106)
--- NOTE | 2022-03-14 12:19 | PN_ITS ---
Subjective Subjective Denies constitutional current. Denies pain. No changes with wounds. Recovering well from vascular procedure yesterday. Objective Data Objective Data Vital Signs: Vital Signs Temp Pulse Resp BP Pulse Ox O2 Del Method O2 Flow Rate 97.2 F L 96 20 H 98/48 L 100 Nasal Cannula 3 03/14/22 10:58 03/14/22 10:58 03/14/22 10:58 03/14/22 10:58 03/14/22 10:58 03/14/22 10:58 03/14/22 10:58 FiO2 100 03/14/22 04:28 Oxygen Flow Rate (L/min) 3 Oxygen Delivery Method Nasal Cannula Weight: 79.2 kg Body Mass Index (BMI) 28.2 Intake & Output: Intake and Output for Last 24 Hours 03/12/22 03/13/22 03/14/22 23:59 23:59 23:59 Intake Total 100 / 220 620 / 740 290 / 290 Output Total 0 / 0 1000 / 1000 0 / 0 Balance 100 / 220 -380 / -260 290 / 290 Lab / Micro Data Result Diagrams: 03/14/22 07:35 03/14/22 07:35 Labs: Laboratory Results - last 24 hr 03/13/22 09:15: Activated Clotting Time 311 H 03/13/22 09:45: Activated Clotting Time 281 H 03/13/22 14:24: POC Glucose 120 H 03/13/22 20:46: POC Glucose 218 H 03/14/22 07:35: WBC 9.4, RBC 2.54 L, Hgb 7.6 L, Hct 24.5 L, MCV 96.5 H, MCH 29.9, MCHC 31.0 L, RDW Std Deviation 57.1 H, RDW Coeff of Nguyen 16.2 H, Plt Count 124 L, MPV 10.8, Immature Gran % (Auto) 1.100 H, Neut % (Auto) 83.6 H, Lymph % (Auto) 6.2 L, [place] % (Auto) 7.1, Eos % (Auto) 1.6, Baso % (Auto) 0.4, Absolute Neuts (auto) 7.9 H, Absolute Lymphs (auto) 0.58 L, Nucleated RBC % 0, Di fferential Comment SCANNED 03/14/22 07:35: Sodium 136, Potassium 4.0, Chloride 101, Carbon Dioxide 27.0, Anion Gap 8, BUN 48 H, Creatinine 3.70 H, Estim Creat Clear Calc 15.88, Est GFR (MDRD) Af Amer 21 L, Est GFR (MDRD) Non-Af 17 L, BUN/Creatinine Ratio 13.0, Glucose 163 H, Calcium 8.5 03/14/22 07:52: POC Glucose 158 H 03/14/22 11:05: POC Glucose 186 H Micro: Microbiology 03/10/22 16:10 Stool Enteric Bacteriology - Final 03/10/22 16:10 Stool C. difficile DNA Amplification - Final 03/02/22 08:05 Blood Culture (Wb) - Neck Blood Culture - Final No growth in 5 days. 03/02/22 08:10 Blood Culture (Wb) - Right Forearm Blood Culture - Final No growth in 5 days. 03/04/22 09:40 Stool Stool Occult Blood (CANDIDA) - Final Occult Blood Positive 03/02/22 18:20 Stool C. difficile DNA Amplification - Final 03/01/22 21:30 Mucosa - Nasopharyngeal Respiratory Panel (PCR) - Final 03/01/22 22:00 Urine Catheter - Catheter Legionella Antigen - Final 03/01/22 22:00 Urine Catheter - Catheter Streptococcus pneumoniae Antigen (M - Final Rhythm Strip Rhythm Strip: Sinus Rhythm Rate: 82 Physical Exam Narrative Neurovascular status unchanged from previous visit. Improved edema to bilateral lower extremity. Less drainage to leg ulcerations. Ischemic ulcerations to the distal tuft of the left second third and first digit appear to be dry and stable at this point. Resolved signs of infection stable ischemic changes to right second digit. Stable ischemic wound to plantar heel bilaterally and plantar fifth metatarsal head bilaterally. Skin is atrophic bilateral. No acute worsening to the feet bilateral- feet and ankles bilateral are stable at this time. 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 Feet are stable at this time with chronic changes. Patient is significant chronic PAD bilateral lower extremity. Vascular surgery/Dr. Santo - underwent percutaneous intervention LLE 03/13/22. Peroneal flow noted. Vascular surgery going to reattempt intervention in a couple weeks, then will proceed with definitive amputation if intervention successful. In the meantime we will continue local wound care with dressing changes, offloading, and observe for any acute degeneration of the wound sites. For d/c planning: Recommend SNF/extended care facility Dressing changes should be daily. Cleansing foot with soap/water, dressing wounds with betadine paint and DSD. Patient should remain non-weightbearing to wounds bilaterally. I will plan to see patient weekly upon discharge to ensure no degeneration of wounds (2) Peripheral vascular disease, unspecified: (3) Non-pressure chronic ulcer of other part of left foot with fat layer exposed: (4) Diabetic infection of right foot:
--- NOTE | 2022-03-14 13:30 | CASEMGMT ---
KALEB SIMPSON in to see patient to discuss patient's care. Patient will need outpatient HD, IV ATBs with HD, wound care, and non-weightbearing to bilateral lower extremity per progress notes. Podiatry, nephrology, and hospitalist recommending SNF at discharge. KALEB SIMPSON explained care needs at discharge to patient and that it may be too much for his to provide for him. Patient adamantly states he is not going to a SNF. KALEB SIMPSON also discussed Ltach level of care to patient. Patient became agitated and states that he can just stay here if he needs care and he'll get a chief innovation officer if we are kicking him out. KALEB SIMPSON attempted to explain discharge planning goals and patient refused to discuss. KALEB SIMPSON got permission from patient to call . KALEB SIMPSON called and explained needs at discharge. She states that patient is upset with son being more concerned regarding patient's will than his health. states that she will be at [facility] at 1500. KALEB SIMPSON arranged to discuss care needs with SW, patient, and when she comes in at 1500.
[2022-03-14] MEDS: metroNIDAZOLE 500 MG Tablet PO ×2 (13:37→21:15)
--- NOTE | 2022-03-14 13:55 | PCM.PN.ID ---
Physical Exam Narrative Frustrated, still with diarrhea. No fever. Const alert and no apparent distress Resp normal air movement and clear to auscultation bilaterally Cardio regular rate and regular rhythm GI soft to palpation, non-tender and non-distended Extremity General Extremity: edema Skin Skin Narrative: foot wrapped ID ID: Route of nutrition/ use of supplements: [] Nutritional Intake: [] IV Site: [] Laura Catheter: [] Assessment & Plan Assessment/Plan (1) Septic shock: PLAN: Due to BLE infected ulcers and gangrene. Recent wound cx with citro, proteus, morganella, serratia, GBS, enterococcus, and anaerobes. Had been on po doxy/cipro, but those are unreliable for GBS, enterococcus, and anaerobes. Podiatry following, amputation planned. Given severity of illness, on zosyn, adjusted zosyn to q12h based on GFR. Cdiff neg. Now off pressors. Added probiotic, will schedule imodium, and will change to iv vanc dosed with HD and po cipro/flagyl to see if this helps. Stop date 04/17/22 with weekly labs, wrote rx. ID followup in 4 weeks. Will follow (2) DAVIS (acute kidney injury): (3) Diabetic infection of right foot:
--- NOTE | 2022-03-14 14:14 | PN.SURG_ITS ---
Subjective Subjective Patient reports he is doing okay, feels he is recovering well from the procedure yesterday. He reports no pain at the access site or in the lower extremities/feet. He complains only of diarrhea and feeling somewhat short of breath. No fevers or chills. Objective Data Objective Data Vital Signs: Vital Signs Temp Pulse Resp BP Pulse Ox O2 Del Method O2 Flow Rate 97.4 F L 89 20 H 92/66 100 Nasal Cannula 2 03/14/22 13:48 03/14/22 13:48 03/14/22 13:48 03/14/22 13:48 03/14/22 13:48 03/14/22 13:48 03/14/22 13:48 FiO2 100 03/14/22 12:00 Oxygen Flow Rate (L/min) 2 Oxygen Delivery Method Nasal Cannula Weight: 174 lb 9.698 oz Body Mass Index (BMI) 28.2 Intake & Output: Intake and Output for Last 24 Hours 03/12/22 03/13/22 03/14/22 23:59 23:59 23:59 Intake Total 100 / 220 620 / 740 540 / 540 Output Total 0 / 0 1000 / 1000 0 / 0 Balance 100 / 220 -380 / -260 540 / 540 Lab / Micro Data Result Diagrams: 03/14/22 07:35 03/14/22 07:35 Labs: Laboratory Results - last 24 hr 03/13/22 09:15: Activated Clotting Time 311 H 03/13/22 09:45: Activated Clotting Time 281 H 03/13/22 14:24: POC Glucose 120 H 03/13/22 20:46: POC Glucose 218 H 03/14/22 07:35: WBC 9.4, RBC 2.54 L, Hgb 7.6 L, Hct 24.5 L, MCV 96.5 H, MCH 29.9, MCHC 31.0 L, RDW Std Deviation 57.1 H, RDW Coeff of Nguyen 16.2 H, Plt Count 124 L, MPV 10.8, Immature Gran % (Auto) 1.100 H, Neut % (Auto) 83.6 H, Lymph % (Auto) 6.2 L, [place] % (Auto) 7.1, Eos % (Auto) 1.6, Baso % (Auto) 0.4, Absolute Neuts (auto) 7.9 H, Absolute Lymphs (auto) 0.58 L, Nucleated RBC % 0, Differential Comment SCANNED 03/14/22 07:35: Sodium 136, Potassium 4.0, Chloride 101, Carbon Dioxide 27.0, Anion Gap 8, BUN 48 H, Creatinine 3.70 H, Estim Creat Clear Calc 15.88, Est GFR (MDRD) Af Amer 21 L, Est GFR (MDRD) Non-Af 17 L, BUN/Creatinine Ratio 13.0, Glucose 163 H, Calcium 8.5 03/14/22 07:52: POC Glucose 158 H 03/14/22 11:05: POC Glucose 186 H Micro: Microbiology 03/10/22 16:10 Stool Enteric Bacteriology - Final 03/10/22 16:10 Stool C. difficile DNA Amplification - Final 03/02/22 08:05 Blood Culture (Wb) - Neck Blood Culture - Final No growth in 5 days. 03/02/22 08:10 Blood Culture (Wb) - Right Forearm Blood Culture - Final No growth in 5 days. 03/04/22 09:40 Stool Stool Occult Blood (CANDIDA) - Final Occult Blood Positive 03/02/22 18:20 Stool C. difficile DNA Amplification - Final 03/01/22 21:30 Mucosa - Nasopharyngeal Respiratory Panel (PCR) - Final 03/01/22 22:00 Urine Catheter - Catheter Legionella Antigen - Final 03/01/22 22:00 Urine Catheter - Catheter Streptococcus pneumoniae Antigen (M - Final Rhythm Strip Rhythm Strip: Sinus Rhythm Rate: 82 Physical Exam Const alert, oriented x3 and no apparent distress General Appearance: cooperative HEENT normocephalic, head/scalp atraumatic, hearing grossly normal bilaterally, external ears normal and external nose normal Eyes EOMs intact bilaterally General Eye: normal appearance of both eyes Neck full ROM General: trachea midline Resp normal respiratory effort and no use of accessory muscles Effort and Inspection: able to speak in complete sentences; Negative for stridor or audible wheezes Cardio regular rate and regular rhythm Peripheral Pulses: radial pulses present Extremity Extremity Narrative: No bleeding or hematoma noted at access site. Peripheral Pulses: Negative for femoral pulses present or popliteal pulses present Skin Lesions: no lesions Rashes: no rashes Trauma: no lacerations or abrasions Wounds: wounds noted Wound Narrative: dpcumented bilateral lower extremity ulcerations, left great toe with gangrene, right second toe gangrene. Dressings were intact and not removed for further inspection at time of exam. 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 He is recovering well and without pain and is currently stable with respect to his lower extremity wounds and infection. The left popliteal artery angioplasty improved inflow to patient's peroneal artery (which was patent from previous intervention). Patient was also noted to have chronically occluded anterior tibial artery, this was not able to be reconstituted in yesterday's procedure despite significant effort. Currently planning for another procedure in a few weeks to reassess improvement made with most recent intervention and possibly attempt additional intervention to optimize blood flow prior to podiatry performing amputation. Discharge planning as per primary team, our office will contact patient to schedule future procedure and office visits upon discharge. Charges/Coding Visit Charges Inpatient E&M: 47762 Subs Hosp L1
--- NOTE | 2022-03-14 14:16 | PCM.RX.CS ---
Consult Pharmacy has been consulted to manage selected antiobiotic: Vancomycin Type of Consult: New start Labs: Sodium 136 mmol/L (136-145) 03/14/22 07:35 Potassium 4.0 mmol/L (3.5-5.1) 03/14/22 07:35 Chloride 101 mmol/L (98-107) 03/14/22 07:35 Carbon Dioxide 27.0 mmol/L (21.0-32.0) 03/14/22 07:35 Anion Gap 8 (5-15) 03/14/22 07:35 BUN 48 mg/dL (7-18) H 03/14/22 07:35 Creatinine 3.70 mg/dL (0.70-1.30) H 03/14/22 07:35 Est GFR (MDRD) Af Amer 21 mL/min (>60) L 03/14/22 07:35 Est GFR (MDRD) Non-Af 17 mL/min (>60) L 03/14/22 07:35 BUN/Creatinine Ratio 13.0 RATIO (10-20) 03/14/22 07:35 Glucose 163 mg/dL (74-106) H 03/14/22 07:35 Random Vancomycin 17.4 ug/mL (0.0-15.0) H 03/06/22 14:30 Microbiology: Microbiology 03/10/22 16:10 Stool Enteric Bacteriology - Final 03/10/22 16:10 Stool C. difficile DNA Amplification - Final 03/02/22 08:05 Blood Culture (Wb) - Neck Blood Culture - Final No growth in 5 days. 03/02/22 08:10 Blood Culture (Wb) - Right Forearm Blood Culture - Final No growth in 5 days. 03/04/22 09:40 Stool Stool Occult Blood (CANDIDA) - Final Occult Blood Positive 03/02/22 18:20 Stool C. difficile DNA Amplification - Final 03/01/22 21:30 Mucosa - Nasopharyngeal Respiratory Panel (PCR) - Final 03/01/22 22:00 Urine Catheter - Catheter Legionella Antigen - Final 03/01/22 22:00 Urine Catheter - Catheter Streptococcus pneumoniae Antigen (M - Final Weight used for dosin.2 kg Estimated Creatinine Clearance: ON HD Goal Trough: 15-20 mcg/mL Pharmacy Plan for Drug Dosing: Give initial load dose of 2000mg IV x1 today. The patient is currently on a [facility] dialysis schedule so per [facility] dosing guidelines for dosing in patients on HD, will order a 2nd dose of 500mg IV x1 (based on the patient's weight) to be given after the next HD session which will be tomorrow. After that, subsequent doses will be guided by pre-dialysis random vanc levels, the first which will be on Saturday, 03/17. Pharmacy Service will continue to monitor and adjust dosing as required. Follow-Up Labs: Trough Vancomycin - random Labs to be done on [date and time ordered]: 03/17/22 pre-HD random vanc level
--- NOTE | 2022-03-14 15:20 | CASEMGMT ---
RN CM updated by Josesito Lowery that left message stating she had papers that patient needed to sign and have notarized. RN CM in to see patient and , per she only has one of the documents with her. RN CM inquired if would be able to have all paperwork tomorrow to sign all at once. states she can be here at 9 to have papers signed. RN CM updated Eddie Cool, notified and is able to assists with notarization in the morning. RN CM stated to patient and that SW and RN CM would be right back to discuss patient care needs at discharge. Patient became agitated and stated he did not want to talk and he was staying here. RN CM confirmed with that Travon is able to assist in morning. RN CM updated SW and Patient Advocate regarding conversation with patient and arranged meeting with family and patient to discuss goals and needs of care at discharge.
[2022-03-14 16:51] LABS: Bedside Glucose 246 mg/dL (74-106)
--- NOTE | 2022-03-14 16:57 | EX.PCM.CON.G ---
HPI Consult Data Date of Consult: 03/15/22 HPI Narrative HPI Narrative: FRANCISCO DUBOSE, is a 76 M who presented to the emergency department on March 01 with shortness of breath, lower extremity edema and hypotension.? The patient has a known history of ischemic cardiomyopathy status post CABG, paroxysmal atrial fibrillation on Coumadin, GERD and obstructive sleep apnea.? The patient is also being followed by podiatry in the wound clinic due to a history of peripheral vascular disease and diabetes associated lower extremity ulcers. On presentation to the emergency department, the patient was noted to have a temperature of 96.2 ?F.? The patient was mildly tachycardic and tachypneic.? Oxygen saturations were stable on room air.? Initial laboratory evaluation revealed no evidence of a leukocytosis.? Coagulation profile revealed an INR of 3.9.? Chemistry profile was notable for a sodium of 131, potassium of 6.7, bicarbonate of 16, BUN of 156 and creatinine of 9.65.? Phosphorus was elevated at 9.1.? Troponin was elevated at 79 with a BNP of 549.? Urine analysis was unrevealing.? Chest x-ray was grossly clear with blunting of the right costophrenic angle.? Renal ultrasound demonstrated no evidence of obstruction.? The patient received supplemental IV fluids in the emergency department, but remained hypotensive.? Therefore, a left triple-lumen catheter was placed and the patient was initiated on vasopressors.? Antimicrobials were administered and the patient was admitted to the medical intensive care unit for further management. He was diagnosed with septic shock secondary to his lower extremity ulcers. He was taken to the operating room for an aortogram with left lower extremity runoff and left popliteal angioplasty and left anterior tibial angioplasty as he was discovered to have gangrene of his lower extremities I was asked to see him due to worsening anemia. His main complaint is diarrhea. He had a CT scan abdomen pelvis earlier in the year which showed steatosis of the liver with cholelithiasis without cholecystitis. There were no calcifications or signs of chronic pancreatitis. There was no sign of portal vein thrombosis or enlarged spleen. No stigmata of liver disease other than steatohepatitis [facility] Medical History (Updated 03/14/22 @ 17:[address] Holman Friend, DO) Acute on chronic systolic (congestive) heart failure Alcohol abuse Atherosclerosis of coronary artery bypass graft without angina pectoris Atrial fibrillation Bilateral lower extremity edema CAD (coronary artery disease) Cardiac dysrhythmia Cardiomyopathy Chronic systolic congestive heart failure Chronic ulcer of toe of left foot with fat layer exposed Congestive heart failure Elevated troponin Essential (primary) hypertension GERD (gastroesophageal reflux disease) Heavy alcohol use HLD (hyperlipidemia) Implantable cardioverter-defibrillator (ICD) at end of battery life Ischemic cardiomyopathy 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 of 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 Non-rheumatic tricuspid valve insufficiency NSTEMI (non-ST elevated myocardial infarction) 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 RITESH (obstructive sleep apnea) Paroxysmal atrial fibrillation Paroxysmal atrial fibrillation with rapid ventricular response Paroxysmal atrial flutter Peripheral vascular disease Pleural effusion Secondary pulmonary arterial hypertension Skin ulcer of left great toe with fat layer exposed Sleep apnea Type 2 diabetes mellitus Type 2 diabetes mellitus Ulcer of left lower extremity with fat layer exposed Ulcer of right foot with fat layer exposed Ulcer of right lower extremity with fat layer exposed Ventricular tachycardia Home Medications aspirin 81 mg tablet,delayed release 81 mg PO DAILY heart health 09/19/18 [History Last Taken 03/01/22] Handicap Placard #1 ea 08/28/19 [Rx Last Taken Unknown] atorvastatin 80 mg tablet 80 mg PO QHS #90 tabs 05/23/21 [Rx Last Taken 02/28/22] Novolin N Flexpen 5 units QHS diabetes 11/03/21 [History Last Taken 02/28/22] Novolin N Flexpen 12 units DAILY daily 11/03/21 [History Last Taken 02/28/22] warfarin 2 mg tablet (Jantoven) 2 mg PO DINNER #0 tabs 11/06/21 [Rx Last Taken 02/26/22] omeprazole 20 mg capsule,delayed release 20 mg PO DAILY PRN acid reflux 11/14/21 [History Last Taken 02/01/22] ascorbic acid (vitamin C) 500 mg tablet 500 mg PO DAILY 01/01/22 [History Last Taken 03/01/22] cholecalciferol (vitamin D3) 25 mcg (1,000 unit) capsule 25 mcg PO DAILY 01/01/22 [History Last Taken Unknown] potassium chloride 20 mEq tablet,extended release 20 meq PO DAILY 01/24/22 [History Last Taken 03/01/22] metoprolol succinate 100 mg tablet,extended release 24 hr 100 mg PO BID #180 tabs 02/05/22 [Rx Last Taken 02/27/22] furosemide 40 mg tablet 40 mg PO BID 02/28/22 [History Last Taken 03/01/22] spironolactone 25 mg tablet 25 mg PO DAILY #30 tabs 02/28/22 [Rx Last Taken 03/01/22] losartan 25 mg tablet 25 mg PO DAILY HTN 03/01/22 [History Last Taken 02/28/22] ciprofloxacin HCl 500 mg tablet 500 mg PO QPM 28 days #28 tabs 03/14/22 [Rx Last Taken Unknown] metronidazole 500 mg tablet 500 mg PO TID 28 days #84 tabs 03/14/22 [Rx Last Taken Unknown] vancomycin 1,000 mg intravenous injection 1 g IV .see below 28 days #12 ea 03/14/22 [Rx Last Taken Unknown] Allergy/AdvReac Type Severity Reaction Status Date / Time amiodarone Allergy Shortness Verified 03/14/22 15:49 of breath lisinopril AdvReac cough Verified 03/01/22 13:28 Family History (Updated 03/01/22 @ 21:[address] Lor Lazaro MD) Mother Bleeding in brain due to brain aneurysm Father History of aneurysm of peripheral artery Surgical History H/O coronary artery bypass surgery (1997) History of coronary artery stent placement (01/2016) History of implantable cardiac defibrillator (ICD) (02/11/20) History of thoracentesis Hx of CABG S/P PTCA (percutaneous transluminal coronary angioplasty) Social History household members: spouse Smoking Status: Never smoker alcohol intake: current alcohol intake frequency: a few times a week Alcohol type: beer substance use type: does not use caffeine: Yes Type: coffee Number of servings: 2 what type of physical activity do you participate in: none seatbelt use: never do you feel safe at home: Yes ROS Constitutional Constitutional: Denies anorexia or fatigue Eyes Eyes: Denies blurry vision ENT HEENT: Denies abnormal hearing Cardiovascular Cardiovascular: Reports dyspnea on exertion; Denies abdominal pain or chest pain with activity Respiratory/Chest Respiratory/Chest: Reports dyspnea on exertion; Denies change in phlegm color or nail bed cyanosis Physical Exam Const alert, oriented x3 and no apparent distress General Appearance: cooperative HEENT normocephalic, head/scalp atraumatic, hearing grossly normal bilaterally, external ears normal and external nose normal Eyes EOMs intact bilaterally General Eye: normal appearance of both eyes Neck full ROM General: trachea midline Resp normal respiratory effort and no use of accessory muscles Effort and Inspection: able to speak in complete sentences; Negative for stridor or audible wheezes Cardio regular rate and regular rhythm Peripheral Pulses: radial pulses present Extremity Extremity Narrative: No bleeding or hematoma noted at access site. Peripheral Pulses: Negative for femoral pulses present or popliteal pulses present Skin Lesions: no lesions Rashes: no rashes Trauma: no lacerations or abrasions Wounds: wounds noted Wound Narrative: dpcumented bilateral lower extremity ulcerations, left great toe with gangrene, right second toe gangrene. Dressings were intact and not removed for further inspection at time of exam. Neuro CN's II-XII intact bilaterally, no focal motor deficits and no sensory deficits noted Lab / Micro Data Result Diagrams: 03/15/22 05:45 03/15/22 05:45 Labs: Laboratory Results - last 24 hr 03/13/22 09:15: Activated Clotting Time 311 H 03/13/22 09:45: Activated Clotting Time 281 H 03/13/22 20:46: POC Glucose 218 H 03/14/22 07:35: WBC 9.4, RBC 2.54 L, Hgb 7.6 L, Hct 24.5 L, MCV 96.5 H, MCH 29.9, MCHC 31.0 L, RDW Std Deviation 57.1 H, RDW Coeff of Nguyen 16.2 H, Plt Count 124 L, MPV 10.8, Immature Gran % (Auto) 1.100 H, Neut % (Auto) 83.6 H, Lymph % (Auto) 6.2 L, [place] % (Auto) 7.1, Eos % (Auto) 1.6, Baso % (Auto) 0.4, Absolute Neuts (auto) 7.9 H, Absolute Lymphs (auto) 0.58 L, Nucleated RBC % 0, Differential Comment SCANNED 03/14/22 07:35: Sodium 136, Potassium 4.0, Chloride 101, Carbon Dioxide 27.0, Anion Gap 8, BUN 48 H, Creatinine 3.70 H, Estim Creat Clear Calc 15.88, Est GFR (MDRD) Af Amer 21 L, Est GFR (MDRD) Non-Af 17 L, BUN/Creatinine Ratio 13.0, Glucose 163 H, Calcium 8.5 03/14/22 07:52: POC Glucose 158 H 03/14/22 11:05: POC Glucose 186 H 03/14/22 16:25: POC Glucose 246 H Rhythm Strip Rhythm Strip: Sinus Rhythm Rate: 82 Assessment & Plan Assessment/Plan (1) Anemia: PLAN: . He should undergo an upper and lower endoscopy and possible capsule endoscopy in the future. (2) Alcohol abuse: PLAN: . With his history of alcohol abuse and steatosis he possibly a grade 3 or grade 4 chronic liver disease which can lead to hyponatremia, bloating, portal gastropathy of the stomach, gastric antral vascular ectasia, angiodysplasia, which can cause anemia (3) Diarrhea: PLAN: When I saw him previous for diarrhea and he had Imodium after stool studies were negative for C. difficile and enteric pathogens. His stool studies were positive for white blood cells. I will repeat his fecal leukocytes and add fecal elastase to look for signs of bacterial overgrowth or chronic pancreatitis. We will also check for fecal fat and fecal calprotectin which can be elevated in the setting of celiac disease, chronic pancreatitis and inflammatory bowel disease. He should eventually have a colonoscopy Charges/Coding Visit Charges Inpatient E&M: 75844 Init Hosp L3
[2022-03-14] MEDS: Bisacodyl 5 MG Tablet 20 MG PO (18:47)
[2022-03-14] MEDS: Polyethylene Glycol 3350 BOWEL PREP PO (18:47)
[2022-03-14] MEDS: Atorvastatin Calcium 80 MG Tablet PO (21:15)
[2022-03-14] MEDS: Ciprofloxacin 500 MG Tablet PO (21:15)
[2022-03-14] MEDS: Insulin NPH Human 100 UNITS/ML PEN SC (21:19)
[2022-03-14] MEDS: MELATONIN 3 MG TABLET PO (23:27)
[2022-03-14 23:35] LABS: Bedside Glucose 179 mg/dL (74-106)
[2022-03-15] VITALS (24 sets, daily range): BP systolic 86–131; BP diastolic 42–102; PULSE 67–96; RESP 16–19; TEMP 36.2–36.7; O2SAT 95–100; BMI 26.9
[2022-03-15 05:54] LABS: Absolute Neutrophil Count 8.2 X10^3/uL (2.0-7.7); Basophil# 0.05 X10^3/uL; Basophil% 0.5 % (0-1); Eosinophil# 0.26 X10^3/uL; Eosinophils% 2.6 % (0-5); Hematocrit 24.7 % (40-54); Hemoglobin 7.7 g/dL (13.0-16.5); Lymphocyte % 6.1 % (19-41); Mean Corp Hgb Conc 31.2 g/dL (32-36); Mean Corpuscular Volume 96.1 fL (80-94); Mean Platelet Vol. 10.8 fl (6.2-12.0); Monocyte# 0.73 X10^3/uL; Monocyte% 7.4 % (0-10); NRBC Flagged by Analyzer 0 % (0-5); Neutrophil # 8.15 X10^3/uL (2.7-7.7); Neutrophil % 82.3 % (47-70); POSITIVE DIFFERENTIAL YES; Platelet Count 132 K/mm3 (150-450); RBC Distribution Width CV 16.2 % (11.6-14.6); RBC Distribution Width SD 56.2 fl (35.1-43.9); Red Blood Count 2.57 M/mm3 (4.6-6.2); White Blood Count 9.9 K/mm3 (4.4-11.0)
[2022-03-15 06:01] LABS: Differential Indicated SCAN CRITERIA MET
[2022-03-15 06:28] LABS: Anion Gap 9 (5-15); BUN 64 mg/dL (7-18); BUN/Creat Ratio 14.4 RATIO (10-20); Calcium,Total 8.5 mg/dL (8.5-10.1); Chloride 98 mmol/L (98-107); Creatinine, Serum 4.44 mg/dL (0.70-1.30); EST Glomerular Filtration Rate 14 mL/min (>60); Est Glom Filt Rate - Afr Amer 17 mL/min (>60); Estimated Creatinine Clearance 13.23 ml/min; Glucose 120 mg/dL (74-106); Potassium 3.9 mmol/L (3.5-5.1); Sodium Level 132 mmol/L (136-145)
[2022-03-15] MEDS: Menthol/Lanolin/Calamine/Znox 113 GM Tube 1 APPLIC TOPICAL ×2 (06:30→22:37)
[2022-03-15 06:49] LABS: Differential Comment SCANNED
--- NOTE | 2022-03-15 09:48 | PN.RENAL_ITS ---
Documented by User: KATHRYN Luong 03/15/22 09:53 Subjective Subjective Following for DAVIS on CKD Patient seen and examined on dialysis. at bedside. No overnight events. Objective Data Objective Data Vital Signs: Vital Signs Temp Pulse Resp BP Pulse Ox O2 Del Method O2 Flow Rate 97.8 F 82 18 100/80 100 Nasal Cannula 3 03/15/22 06:00 03/15/22 07:00 03/15/22 06:00 03/15/22 06:00 03/15/22 07:32 03/15/22 07:58 03/15/22 07:58 FiO2 100 03/15/22 06:00 Oxygen Flow Rate (L/min) 3 Oxygen Delivery Method Nasal Cannula Weight: 77.8 kg Body Mass Index (BMI) 28.2 Intake & Output: Intake and Output for Last 24 Hours 03/13/22 03/14/22 03/15/22 23:59 23:59 23:59 Intake Total 620 / 740 1720.83 / 1720.83 Output Total 1000 / 1000 1150 / 1350 350 / 350 Balance -380 / -260 570.83 / 370.83 -350 / -350 Lab / Micro Data Result Diagrams: 03/15/22 05:45 03/15/22 05:45 Labs: Laboratory Results - last 24 hr 03/14/22 07:35: Differential Comment SCANNED 03/14/22 11:05: POC Glucose 186 H 03/14/22 16:25: POC Glucose 246 H 03/14/22 21:10: POC Glucose 179 H 03/15/22 05:45: WBC 9.9, RBC 2.57 L, Hgb 7.7 L, Hct 24.7 L, MCV 96.1 H, MCH 30.0, MCHC 31.2 L, RDW Std Deviation 56.2 H, RDW Coeff of Nguyen 16.2 H, Plt Count 132 L, MPV 10.8, Immature Gran % (Auto) 1.100 H, Neut % (Auto) 82.3 H, Lymph % (Auto) 6.1 L, [place] % (Auto) 7.4, Eos % (Auto) 2.6, Baso % (Auto) 0.5, Absolute Neuts (auto) 8.2 H, Absolute Lymphs (auto) 0.60 L, Nucleated RBC % 0, Differential Comment SCANNED 03/15/22 05:45: Sodium 132 L, Potassium 3.9, Chloride 98, Carbon Dioxide 25.0, Anion Gap 9, BUN 64 H, Creatinine 4.44 H, Estim Creat Clear Calc 13.23, Est GFR (MDRD) Af Amer 17 L, Est GFR (MDRD) Non-Af 14 L, BUN/Creatinine Ratio 14.4, Glucose 120 H, Calcium 8.5 Micro: Microbiology 03/10/22 16:10 Stool Enteric Bacteriology - Final 03/10/22 16:10 Stool C. difficile DNA Amplification - Final 03/02/22 08:05 Blood Culture (Wb) - Neck Blood Culture - Final No growth in 5 days. 03/02/22 08:10 Blood Culture (Wb) - Right Forearm Blood Culture - Final No growth in 5 days. 03/04/22 09:40 Stool Stool Occult Blood (CANDIDA) - Final Occult Blood Positive 03/02/22 18:20 Stool C. difficile DNA Amplification - Final 03/01/22 21:30 Mucosa - Nasopharyngeal Respiratory Panel (PCR) - Final 03/01/22 22:00 Urine Catheter - Catheter Legionella Antigen - Final 03/01/22 22:00 Urine Catheter - Catheter Streptococcus pneumoniae Antigen (M - Final Rhythm Strip Rhythm Strip: Sinus Rhythm Rate: 82 Physical Exam Narrative Alert and oriented x3, no apparent distress Lung sounds clear anteriorly, no wheezes, rhonchi or rales noted S1, S2, RRR Abdomen soft, nontender No significant lower extremity pitting edema. Dressings clean dry and intact to bilateral feet Left internal jugular tunneled HD catheter accessed for dialysis Assessment & Plan Assessment/Plan (1) DAVIS (acute kidney injury): PLAN: . (2) Chronic kidney disease, stage 3b: (3) Hypotension: (4) Anemia: (5) Ischemic cardiomyopathy: (6) Peripheral vascular disease, unspecified: PLAN: Plan - dialysis dependent DAVIS on CKD. -No noted renal recovery at this time. Creatinine 4.44 mg/dL predialysis this morning. Patient will dialyze today over 3.5 hours with around 1 L fluid removal as patient/blood pressure tolerates. -I had a lengthy conversation with patient and his this morning regarding patient's current kidney function and continual need for dialysis at this time. - Prior baseline serum creatinine had been around 1.50 mg/dL (01/23/2022). Suspect the patient has underlying diabetic kidney disease or nephrosclerosis related to PAD. - DAVIS is secondary to ischemic ATN from circulatory shock/sepsis. The patient was started on dialysis on 03/02/2022, serum creatinine 9.52 mg/dL. Patient is essentially anuric. -We will continue to monitor for any renal recovery. -Hypotension thought to be related to sepsis. The patient also has ischemic cardiomyopathy, EF 35%. Continue midodrine 10 mg 3 times daily, bps improved. - GI consulted for anemia and diarrhea. Current hemoglobin 7.7, hemoglobin has ranged 7 to 8 g/dL this admission. - Status post angiogram of the lower extremities per vascular. On IV antibiotics. -Dialysis discharge plans discussed with patient and his today. Patient is wanting to go home, if patient goes home dialysis to be arranged at [facility]. -Discussed dialysis discharge plans with discharge planning team. Documented by User: Dr. Angus Pradhan MD 03/15/22 12:19 Objective Data Lab / Micro Data Result Diagrams: 03/15/22 05:45 03/15/22 05:45 Assessment & Plan Assessment/Plan (1) DAVIS (acute kidney injury): (2) Chronic kidney disease, stage 3b: (3) Hypotension: (4) Anemia: (5) Ischemic cardiomyopathy: (6) Peripheral vascular disease, unspecified: PLAN: Plan - dialysis dependent DAVIS on CKD. -No noted renal recovery at this time. Creatinine 4.44 mg/dL predialysis this morning. Patient will dialyze today over 3.5 hours with around 1 L fluid removal as patient/blood pressure tolerates. -I had a lengthy conversation with patient and his this morning regarding patient's current kidney function and continual need for dialysis at this time. - Prior baseline serum creatinine had been around 1.50 mg/dL (01/23/2022). Suspect the patient has underlying diabetic kidney disease or nephrosclerosis re lated to PAD. - DAVIS is secondary to ischemic ATN from circulatory shock/sepsis. The patient was started on dialysis on 03/02/2022, serum creatinine 9.52 mg/dL. Patient is essentially anuric. -We will continue to monitor for any renal recovery. -Hypotension thought to be related to sepsis. The patient also has ischemic cardiomyopathy, EF 35%. Continue midodrine 10 mg 3 times daily, bps improved. - GI consulted for anemia and diarrhea. Current hemoglobin 7.7, hemoglobin has ranged 7 to 8 g/dL this admission. - Status post angiogram of the lower extremities per vascular. On IV antibiotics. -Dialysis discharge plans discussed with patient and his today. Patient is wanting to go home, if patient goes home dialysis to be arranged at [facility]. -Discussed dialysis discharge plans with discharge planning team. Nephrology attending addendum: The patient was seen and examined personally. Nurse practitioner's note reflects my medical decision making with my attestation below. Impression/Plan: The patient is a 76-year-old man with past history of type 2 diabetes mellitus, CKD stage IIIb, CAD, heart failure with reduced ejection fraction (EF 35%) likely due to ischemic cardiomyopathy, atrial fibrillation, PAD, RITESH, alcohol use disorder, and hyperlipidemia.? The patient was admitted to the hospital on 03/01/2022 because of nonhealing bilateral foot ulcer.? The patient was treated for septic shock due to foot infection.? Nephrology is following for dialysis dependent DAVIS on CKD. Acute kidney injury on chronic kidney disease stage IIIb. Prior baseline serum creatinine had been around 1.50 mg/dL (01/23/2022).? I suspect the patient has underlying diabetic kidney disease or nephrosclerosis related to PAD. DAVIS is secondary to ischemic ATN from circulatory shock/sepsis. The patient was started on dialysis on 03/02/2022. He remains dialysis dependent on TTS schedule. Unfortunately, there is no signs of renal recovery yet. The patient was seen during dialysis today. F160 dialyzer used, blood flow 400 mL/min, dialysate flow 600 mL/min. Will continue to monitor for any renal recovery. However, next dialysis is anticipated for 03/17/2022. Hypotension.? This is thought to be related to sepsis.? The patient also has ischemic cardiomyopathy. Although BP is acceptable, he is still on midodrine. Continue to follow BP particularly during dialysis. Anemia. Hemoglobin is low but relatively stable at 7.7 g/dL. There is no role for TIMOTEO from nephrology standpoint in the setting of DAVIS. Transfuse if hemoglobin remains below 7.0 g/dL. PAD. Status post angiogram of the lower extremities on 03/13/2022 per vascular. Heart failure with reduced ejection fraction/ischemic cardiomyopathy. The patient appears to be compensated without overt volume overload. Continue keep O>I with IHD. Unfortunately, he is unable to tolerate medication for heart failure such as beta-perez or RAAS inhibitor because of hypotension and DAVIS. Nephrology plan will be discussed with Dr. Medrano.
--- NOTE | 2022-03-15 10:31 | CASEMGMT ---
Addendum entered by Kathryn Ledezma 03/15/22 14:46: Patient's colonoscopy is rescheduled for 1445. Dr Fan updated and will see patient in the morning. Original Note: KALEB SIMPSON spoke with Dr. Fan via phone to clarify patient's weightbearing status. Per Dr. Fan, patient is to be non-weightbearing to bilateral lower extremities. KALEB SIMPSON coordinated with Dr. Fan to see patient and discuss care plan and discharge recommendations. KALEB SIMPSON updated patient's . CM will remain available for care coordination.
[2022-03-15 11:00] LABS: Bedside Glucose 95 mg/dL (74-106)
--- NOTE | 2022-03-15 11:36 | PN.HOSP_ITS ---
Subjective Subjective Patient seen and examined. He had no complaints this morning. He had an uneventful night. He was reviewed by GI yesterday and is being scheduled for EGD and colonoscopy today. Objective Data Objective Data Vital Signs: Vital Signs Temp Pulse Resp BP Pulse Ox O2 Del Method O2 Flow Rate 97.4 F L 85 16 129/94 H 100 Nasal Cannula 3 03/15/22 10:00 03/15/22 10:00 03/15/22 10:00 03/15/22 10:00 03/15/22 10:00 03/15/22 10:00 03/15/22 10:00 FiO2 100 03/15/22 06:00 Oxygen Flow Rate (L/min) 3 Oxygen Delivery Method Nasal Cannula Weight: 171 lb 8.314 oz Body Mass Index (BMI) 28.2 Intake & Output: Intake and Output for Last 24 Hours 03/13/22 03/14/22 03/15/22 23:59 23:59 23:59 Intake Total 620 / 740 1720.83 / 1720.83 Output Total 1000 / 1000 1150 / 1350 350 / 350 Balance -380 / -260 570.83 / 370.83 -350 / -350 Lab / Micro Data Result Diagrams: 03/15/22 05:45 03/15/22 05:45 Labs: Laboratory Results - last 24 hr 03/14/22 11:05: POC Glucose 186 H 03/14/22 16:25: POC Glucose 246 H 03/14/22 21:10: POC Glucose 179 H 03/15/22 05:45: WBC 9.9, RBC 2.57 L, Hgb 7.7 L, Hct 24.7 L, MCV 96.1 H, MCH 30.0, MCHC 31.2 L, RDW Std Deviation 56.2 H, RDW Coeff of Nguyen 16.2 H, Plt Count 132 L, MPV 10.8, Immature Gran % (Auto) 1.100 H, Neut % (Auto) 82.3 H, Lymph % (Auto) 6.1 L, [place] % (Auto) 7.4, Eos % (Auto) 2.6, Baso % (Auto) 0.5, Absolute Neuts (auto) 8.2 H, Absolute Lymphs (auto) 0.60 L, Nucleated RBC % 0, Differential Comment SCANNED 03/15/22 05:45: Sodium 132 L, Potassium 3.9, Chloride 98, Carbon Dioxide 25.0, Anion Gap 9, BUN 64 H, Creatinine 4.44 H, Estim Creat Clear Calc 13.23, Est GFR (MDRD) Af Amer 17 L, Est GFR (MDRD) Non-Af 14 L, BUN/Creatinine Ratio 14.4, Glucose 120 H, Calcium 8.5 03/15/22 10:26: POC Glucose 95 Micro: Microbiology 03/10/22 16:10 Stool Enteric Bacteriology - Final 03/10/22 16:10 Stool C. difficile DNA Amplification - Final 03/02/22 08:05 Blood Culture (Wb) - Neck Blood Culture - Final No growth in 5 days. 03/02/22 08:10 Blood Culture (Wb) - Right Forearm Blood Culture - Final No growth in 5 days. 03/04/22 09:40 Stool Stool Occult Blood (CANDIDA) - Final Occult Blood Positive 03/02/22 18:20 Stool C. difficile DNA Amplification - Final 03/01/22 21:30 Mucosa - Nasopharyngeal Respiratory Panel (PCR) - Final 03/01/22 22:00 Urine Catheter - Catheter Legionella Antigen - Final 03/01/22 22:00 Urine Catheter - Catheter Streptococcus pneumoniae Antigen (M - Final Rhythm Strip Rhythm Strip: Sinus Rhythm Rate: 82 Physical Exam Const alert, oriented x3 and no apparent distress General Appearance: cooperative, well kempt and well developed Orientation / Consciousness: awake, oriented to person, oriented to place and oriented to time HEENT normocephalic, head/scalp atraumatic, moist oral mucous membranes and oropharynx normal Head and Scalp: normocephalic Mouth: oral and palatal mucosa normal Eyes PERRL, EOMs intact bilaterally and conjunctivae normal Neck no lymphadenopathy and supple General: trachea midline Resp normal respiratory effort, no retractions, no use of accessory muscles and clear to auscultation bilaterally Auscultation: Negative for rales, rhonchi or wheezes Cardio regular rate, regular rhythm, S1 normal heart sound, S2 normal heart sound, no murmurs, no rub and no gallops Cardio Narrative: grade 2/6 systolic murmur noted at the apex, right sternal border, and left sternal border. GI normal to inspection, nondistended, normoactive bowel sounds, soft to palpation, non-tender and non-distended Extremity Extremity Narrative: both LEs wrapped in bandage Skin Skin Narrative: bilateral LE wrapped in bandage Neuro oriented x3, CN's II-XII intact bilaterally, moves all extremities, no focal motor deficits and no sensory deficits noted Sensorium / Orientation: awake and alert Speech: speech normal Psych affect normal Assessment & Plan Assessment/Plan (1) Septic shock: (2) Acute on chronic systolic (congestive) heart failure: (3) Non-pressure chronic ulcer of other part of left foot with fat layer exposed: PLAN: Plan #Septic shock due to LE infected diabetic ulcers. * resolved. * now off pressors * ID on board * now off IV zosyn and on PO ciprofloxacin and metronidazole * blood cultures are negative * #Diabetic foot ulcers * ID on board * wound cultures are polymicrobial * on IV vancomycin and PO ciprofloxacin as well as metronidazole, with stop date of 04/17/2022 * wound care on board * #Peripheral artery disease * s/p Aortogram, left lower extremity runoff, left popliteal angioplasty, left anterior tibial angioplasty * today is POD 2 * vascular surgery on board. * #Paroxysmal afib: on coumadin, held on admission. #DAVIS on CKD 3B: nephrology on board. Undergoing dialysis. #CAD s/p CABG and stents: on aspirin and lipitor. #TYpe 2 diabetes mellitus * on NPH insulin 12 units qam and NPH 5 units qhs * ISS. Accuchecks ACHS * #HFrEF: not in exacerbation. Stable #ANemia due to GI bleed * on PPI * FOBT positive * GI consulted; for EGD and colonoscopy to help determine if he should be put back on coumadin. * will need GI evaluation to help determine if he will resume coumadin for afib. * Hb has remained stable * Hb is 7.6 today * consult GI * DVT prophylaxis: SCDs Charges/Coding Visit Charges Inpatient E&M: 63240 Subs Hosp L3
[2022-03-15] MEDS: Acetaminophen 325 MG Tablet 650 MG PO (12:14)
[2022-03-15 13:10] LABS: Bedside Glucose 92 mg/dL (74-106)
[2022-03-15] MEDS: Pantoprazole Sodium 40 MG Tablet PO ×2 (13:37→22:36)
[2022-03-15] MEDS: Midodrine HCl 5 MG Tablet 10 MG PO ×2 (13:37→18:43)
--- NOTE | 2022-03-15 14:47 | CASEMGMT ---
KALEB SIMPSON started referral for outpatient HD through [facility].
--- NOTE | 2022-03-15 14:58 | NURSING ---
This RN administered 2x 1500ml tap water enemas
--- NOTE | 2022-03-15 16:00 | IMM_PTH ---
PATIENT: FRANCISCO DUBOSE LOC: [facility] U#:[id number] AGE/SX: 77/M ROOM: [facility] RE03/01/[address]: Dr. Jesse King MD : 1945 BED: 1 DIS: 03/24/2022 SPEC #: [id number] RECD: 03/16/22 14:48 STATUS: NINO REZeke #: [id number] ROSS: 03/15/22 16:[address]: River Davis DEPT: IMMUNOHISTOCHEMISTRY RECD BY: Debby Nance ENTERED: 03/16/22 14:49 SP TYPE: IMMUNO OTHR DR: MD Dr. Lor Avina MD Dr. Derek Brown, DO Dr. Daniel Bullard, PILARM MD Dr. Pedro Luis Villavicencio MD Dr. Mark Tereletsky, DO Dr. Nana Yaa Koram, MD Dr. Nicholas F Kotsonis, MD Dr. Natthavat Tanphaichitr, MD Dr. Robert Leininger, MD Tissues: A - Pyloric portion of stomach Procedures: H Pylori (initial) PHYSICIAN & [place] [address] SPECIMEN INFORMATION: Tissue Source: A ? Pyloric sphincter Clinical Info: Anemia, diarrhea, GI bleed Specimen Number: [id number] CPT code: 15384 METHODOLOGY: Deparaffinized sections of prefer/formalin-fixed tissue or PAP/DQ stained slides are incubated with monoclonal/polyclonal antibodies/oligonucleotide probes. Localization is made via biotin free immunoperoxidase method. Appropriate controls are performed and reacted as expected. Results on target cell population are indicated in the following table: RESULTS: ANTIBODY / CLONE RESULT Block A H Pylori (polyclonal) negative These tests were developed and their performance characteristics determined by [facility]. They may not have been cleared or approved by the U.S. Food and Drug Administration. The FDA has determined that such clearance or approval is not necessary. The above immunohistochemical/dualISH markers are ordered and reviewed by the Pathologist. INTERPRETATION: A. Pyloric sphincter, biopsy: Negative for Helicobacter pylori organisms. WILLIAM:anamaria 03/19/2022
--- NOTE | 2022-03-15 16:00 | EGD_PTH ---
PATIENT: FRANCISCO DUBOSE LOC: [facility] U#:[id number] AGE/SX: 77/M ROOM: [facility] RE03/01/[address]: Dr. Jesse King MD : 1945 BED: 1 DIS: 03/24/2022 SPEC #: [id number] RECD: 03/15/22 18:05 STATUS: NINO GRIDER #: [id number] ROSS: 03/15/22 16:[address]: Leeanne Martin DEPT: SURGICAL PATHOLOGY RECD BY: Lilly Chandra ENTERED: 03/16/22 13:02 SP TYPE: EGD BIOPSY OT DR: MD Dr. Lor Avina MD Dr. Derek Brown, DO Dr. Jai Fan, PILARM MD Dr. Pedro Luis Villavicencio MD Dr. Mark Tereletsky, MD Dr. Angus Caraballo Dr., MD Dr. Robert Leininger, MD Tissues: A - Pyloric sphincter B - COLON BIOPSY Procedures: Surgery Specimen Level IV HEADER OPERATION: Colonoscopy with biopsy and bipolar cautery, [place] [place] PRE[place] DIAGNOSIS: Anemia, diarrhea, GI bleed TISSUE SUBMITTED: A ? Pyloric sphincter biopsy, B ? Random colon biopsy MICROSCOPIC DIAGNOSIS A. Pyloric sphincter, biopsy: Mild to moderate gastritis. See microscopic description and comment. B. Colon, random biopsy: Fragments of colonic mucosa, no pathologic diagnosis. SJ:anamaria 03/19/2022 COMMENT A. The results of immunohistochemistry for Helicobacter pylori will be reported separately ([id number]). MICROSCOPIC DESCRIPTION Slides are reviewed. The specimen shows fragments of gastric mucosa with chronic inflammatory cell infiltrates in the lamina propria consisting of lymphocytes and plasma cells, consistent with mild to moderate chronic gastritis. GROSS DESCRIPTION A - Received in fixative is one container labeled with the patient's name and designated pyloric sphincter. The specimen consists of two irregular fragments of light taylor soft tissue that in aggregate measure 0.6 x 0.6 x 0.1 cm. The specimen is totally submitted in one cassette. B - Received in fixative is one container labeled with the patient's name and designated random colon biopsy. The specimen consists of multiple irregular fragments of light taylor soft tissue that in aggregate measure 1.5 x 0.5 x 0.1 cm. The specimen is totally submitted in one cassette. / AM:anamaria 03/16/2022 TC:3 CPT: 60082 x2
--- NOTE | 2022-03-15 17:23 | OP.EGD_ITS ---
Patient Name: Rupert Brandt Procedure Date: 03/15/2022 4:06 PM Date of : 1945 Age: 76 Procedure: Upper GI endoscopy Indications: Epigastric abdominal pain, Iron deficiency anemia Providers: River Davis DO Medicines: Monitored Anesthesia Care Patient Profile: This is a 76 year old male. Refer to note in patient chart for documentation of history and physical. Patient has symptoms of acute epigastric abdominal pain and acute nausea. Complications: No immediate complications. Procedure: Pre-Anesthesia Assessment: - Prior to the procedure, a History and Physical was performed, and patient medications and allergies were reviewed. The patient is competent. The risks and benefits of the procedure and the sedation options and risks were discussed with the patient. All questions were answered and informed consent was obtained. Patient identification and proposed procedure were verified by the physician in the pre-procedure area. Mental Status Examination: alert and oriented. Airway Examination: normal oropharyngeal airway and neck mobility. Respiratory Examination: clear to auscultation. CV Examination: normal. Prophylactic Antibiotics: The patient does not require prophylactic antibiotics. Prior Anticoagulants: The patient has taken no previous 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 or antiplatelet agents. ASA Grade Assessment: III - A patient with severe systemic disease. After reviewing the risks and benefits, the patient was deemed in satisfactory condition to undergo the procedure. The anesthesia plan was to use monitored anesthesia care (MAC). Immediately prior to administration of medications, the patient was re-assessed for adequacy to receive sedatives. The heart rate, respiratory rate, oxygen saturations, blood pressure, adequacy of pulmonary ventilation, and response to care were monitored throughout the procedure. The physical status of the patient was re-assessed after the procedure. After obtaining informed consent, the endoscope was passed under direct vision. Throughout the procedure, the patient's blood pressure, pulse, and oxygen saturations were monitored continuously. The Colonoscope was introduced through the mouth, and advanced to the second part of duodenum. The upper GI endoscopy was accomplished without difficulty. The patient tolerated the procedure well. Scope In: 4:36:35 PM Scope Out: 4:42:59 PM Total Procedure Duration Time 0 hours 6 minutes 24 seconds Findings: Grade II varices were found in the upper third of the esophagus. They were 5 mm in largest diameter. One oozing linear gastric ulcer with adherent clot was found in the gastric antrum. The lesion was 5 mm in largest dimension. Coagulation for hemostasis using monopolar probe was successful. Estimated blood loss was minimal. 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 Biopsies were taken with a cold forceps for histology. Verification of patient identification for the specimen was done. Estimated blood loss was minimal. The second portion of the duodenum was normal. Impression: - Grade II esophageal varices. - Oozing gastric ulcer with adherent clot. Treated with a monopolar probe. - Gastric antral vascular ectasia without bleeding. Biopsied. - Normal second portion of the duodenum. Recommendation: - [facility]. - Resume regular diet today. - Continue present medications. - Await pathology results. - Repeat upper endoscopy in 3 months for surveillance. Procedure Code(s): --- Professional --- 07722, 59, Esophagogastroduodenoscopy, flexible, transoral; with control of bleeding, any method 88616, Esophagogastroduodenoscopy, flexible, transoral; with biopsy, single or multiple CPT copyright 2017 [employer]. All rights reserved. The codes documented in this report are preliminary and upon drop wire aligner review may be revised to meet current compliance requirements. River Davis DO 03/15/2022 5:22:18 PM This report has been signed electronically. Number of Addenda: 0 Note Initiated On: 03/15/2022 4:06 PM
--- NOTE | 2022-03-15 17:23 | OP.CCLET_ITS ---
03/15/2022 Pedro Luis Shin [address] [place] [address] Re : Upper GI endoscopy procedure for Rupert Brandt Dear Dr. Shin This procedure was performed on March. My impressions and recommendations are as follows: Impressions : - Grade II esophageal varices. - Oozing gastric ulcer with adherent clot. Treated with a monopolar probe. - Gastric antral vascular ectasia without bleeding. Biopsied. - Normal second portion of the duodenum. Recommendations : - [facility]. - Resume regular diet today. - Continue present medications. - Await pathology results. - Repeat upper endoscopy in 3 months for surveillance. My findings are described in the full procedure note, which is enclosed. If I can be of further assistance, please feel free to contact me at . Sincerely, River Davis, 03/15/2022 5:22:18 PM This report has been signed electronically.
--- NOTE | 2022-03-15 17:28 | OP.COLON_ITS ---
Patient Name: Rupert Brandt Procedure Date: 03/15/2022 4:43 PM Date of : 1945 Age: 76 Procedure: Colonoscopy Indications: Chronic diarrhea, Hematochezia, Iron deficiency anemia Providers: River Davis DO Medicines: Monitored Anesthesia Care Patient Profile: This is a 76 year old male. Refer to note in patient chart for documentation of history and physical. Patient has symptoms of acute epigastric abdominal pain and acute nausea. Last Colonoscopy: 3 years ago. Complications: No immediate complications. Procedure: Pre-Anesthesia Assessment: - Prior to the procedure, a History and Physical was performed, and patient medications and allergies were reviewed. The patient is competent. The risks and benefits of the procedure and the sedation options and risks were discussed with the patient. All questions were answered and informed consent was obtained. Patient identification and proposed procedure were verified by the physician in the pre-procedure area. Mental Status Examination: alert and oriented. Airway Examination: normal oropharyngeal airway and neck mobility. Respiratory Examination: clear to auscultation. CV Examination: normal. Prophylactic Antibiotics: The patient does not require prophylactic antibiotics. Prior Anticoagulants: The patient has taken no previous 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 or antiplatelet agents. ASA Grade Assessment: III - A patient with severe systemic disease. After reviewing the risks and benefits, the patient was deemed in satisfactory condition to undergo the procedure. The anesthesia plan was to use monitored anesthesia care (MAC). Immediately prior to administration of medications, the patient was re-assessed for adequacy to receive sedatives. The heart rate, respiratory rate, oxygen saturations, blood pressure, adequacy of pulmonary ventilation, and response to care were monitored throughout the procedure. The physical status of the patient was re-assessed after the procedure. After I obtained informed consent, the scope was passed under direct vision. Throughout the procedure, the patient's blood pressure, pulse, and oxygen saturations were monitored continuously. The Colonoscope was introduced through the anus and advanced to the cecum, identified by appendiceal orifice and ileocecal valve. The colonoscopy was performed without difficulty. The patient tolerated the procedure well. The quality of the bowel preparation was good. Scope In: 4:45:50 PM Scope Withdrawal Time 0 hours 10 minutes 31 seconds Scope Out: 5:06:01 PM Total Procedure Duration Time 0 hours 20 minutes 11 seconds Findings: Hemorrhoids were found on perianal exam. A single (solitary) five mm ulcer was found in the rectum. Oozing was present. Stigmata of recent bleeding were present. Coagulation for hemostasis using heater probe was successful. Estimated blood loss was minimal. Multiple small and large-mouthed diverticula were found in the recto-sigmoid colon, sigmoid colon and descending colon. A benign-appearing, intrinsic moderate stenosis measuring 2 cm (in length) x 3 mm (inner diameter) was found in the sigmoid colon and was traversed after dilation. A TTS dilator was passed through the scope. Dilation with a 15 mm colonic balloon dilator was performed. The dilation site was examined and showed moderate improvement in luminal narrowing. Estimated blood loss was minimal. An area of mildly congested mucosa was found in the rectum, in the sigmoid colon, in the descending colon and at the splenic flexure. Biopsies were taken with a cold forceps for histology. Verification of patient identification for the specimen was done. Estimated blood loss was minimal. Impression: - Hemorrhoids found on perianal exam. - A single (solitary) ulcer in the rectum. Treated with a heater probe. - Diverticulosis in the recto-sigmoid colon, in the sigmoid colon and in the descending colon. 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 Dilated. - Congested mucosa in the rectum, in the sigmoid colon, in the descending colon and at the splenic flexure. Biopsied. Recommendation: - [facility] patient to [facility]. - Resume previous diet. - Continue present medications. - Await pathology results. - Repeat colonoscopy in 1 year for surveillance based on pathology results. Procedure Code(s): --- Professional --- 65202, 59, Colonoscopy, flexible; with control of bleeding, any method 34797, 51, Colonoscopy, flexible; with transendoscopic balloon dilation 89953, Colonoscopy, flexible; with biopsy, single or multiple CPT copyright 2017 [employer]. All rights reserved. The codes documented in this report are preliminary and upon step down specialist review may be revised to meet current compliance requirements. River Davis DO 03/15/2022 5:28:15 PM This report has been signed electronically. Number of Addenda: 0 Note Initiated On: 03/15/2022 4:43 PM
--- NOTE | 2022-03-15 17:29 | OP.CCLET_ITS ---
03/15/2022 Pedro Luis Shin [address] [place] [address] Re : Colonoscopy procedure for Rupert Brandt Dear Dr. Shin This procedure was performed on March. My impressions and recommendations are as follows: Impressions : - Hemorrhoids found on perianal exam. - A single (solitary) ulcer in the rectum. Treated with a heater probe. - Diverticulosis in the recto-sigmoid colon, in the sigmoid colon and in the descending colon. 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 Dilated. - Congested mucosa in the rectum, in the sigmoid colon, in the descending colon and at the splenic flexure. Biopsied. Recommendations : - [facility] patient [facility]. - Resume previous diet. - Continue present medications. - Await pathology results. - Repeat colonoscopy in 1 year for surveillance based on pathology results. My findings are described in the full procedure note, which is enclosed. If I can be of further assistance, please feel free to contact me at . Sincerely, River Davis, 03/15/2022 5:28:15 PM This report has been signed electronically.
[2022-03-15] MEDS: Vancomycin IV 500 MG/100 ML BAG 100 MG IV (18:54)
[2022-03-15 20:16] LABS: Bedside Glucose 101 mg/dL (74-106)
[2022-03-15] MEDS: Ciprofloxacin 500 MG Tablet PO (22:36)
[2022-03-15] MEDS: metroNIDAZOLE 500 MG Tablet PO (22:36)
[2022-03-15] MEDS: Atorvastatin Calcium 80 MG Tablet PO (22:36)
[2022-03-15] MEDS: Insulin Lispro 100 UNIT/ML INSULN.PEN SC (22:37)
[2022-03-15] MEDS: Insulin NPH Human 100 UNITS/ML PEN SC (22:37)
[2022-03-15 23:16] LABS: Bedside Glucose 166 mg/dL (74-106)
[2022-03-16] VITALS (12 sets, daily range): BP systolic 90–101; BP diastolic 53–65; PULSE 75–97; RESP 16–18; TEMP 36.3–36.9; O2SAT 96–100
[2022-03-16] MEDS: metroNIDAZOLE 500 MG Tablet PO ×3 (06:43→21:55)
[2022-03-16 06:56] LABS: Absolute Lymphocyte Count 0.49 X10^3/uL (0.83-4.51); Absolute Neutrophil Count 6.4 X10^3/uL (2.0-7.7); Basophil# 0.03 X10^3/uL; Basophil% 0.4 % (0-1); Eosinophil# 0.19 X10^3/uL; Eosinophils% 2.4 % (0-5); Hematocrit 25.5 % (40-54); Hemoglobin 7.6 g/dL (13.0-16.5); Lymphocyte # 0.49 X10^3/ul (0.83-4.51); Lymphocyte % 6.3 % (19-41); Mean Corp Hgb Conc 29.8 g/dL (32-36); Mean Corpuscular Hgb 29.9 pg (27.0-32.0); Mean Corpuscular Volume 100.4 fL (80-94); Mean Platelet Vol. 11.3 fl (6.2-12.0); Monocyte% 7.7 % (0-10); NRBC Flagged by Analyzer 0 % (0-5); Neutrophil # 6.38 X10^3/uL (2.7-7.7); Neutrophil % 81.9 % (47-70); POSITIVE DIFFERENTIAL YES; Platelet Count 117 K/mm3 (150-450); RBC Distribution Width CV 16.5 % (11.6-14.6); RBC Distribution Width SD 59.6 fl (35.1-43.9); Red Blood Count 2.54 M/mm3 (4.6-6.2); White Blood Count 7.8 K/mm3 (4.4-11.0)
--- NOTE | 2022-03-16 06:57 | NURSING ---
Pt refused to be turned at all during this shift. This nurse requested to change patients pull up since he had it on all night. Pt states No its fine. My back is fine, my legs are fine, and my arms are fine. I feel good all over and if I move I won't feel good anymore. Pt educated on the importance of changing pull up and changing positions, patient still refuses. Pt also refused for garth to be applied. Pt also has skin tears on his arm. He picks at them and they bleed. This nurse cleaned patients arm up.
[2022-03-16 07:10] LABS: Differential Indicated SCAN CRITERIA MET
[2022-03-16 07:14] LABS: Anisocytosis 1+; Macrocytosis 1+; Platelet Estimate SLT DEC (ADEQ)
[2022-03-16 07:15] LABS: Acanthocytes 1+
[2022-03-16 07:53] LABS: Anion Gap 7 (5-15); BUN 34 mg/dL (7-18); BUN/Creat Ratio 10.8 RATIO (10-20); Calcium,Total 8.4 mg/dL (8.5-10.1); Chloride 100 mmol/L (98-107); Creatinine, Serum 3.16 mg/dL (0.70-1.30); EST Glomerular Filtration Rate 20 mL/min (>60); Est Glom Filt Rate - Afr Amer 25 mL/min (>60); Glucose 113 mg/dL (74-106); Potassium 3.7 mmol/L (3.5-5.1); Sodium Level 133 mmol/L (136-145)
[2022-03-16] MEDS: Midodrine HCl 5 MG Tablet 10 MG PO ×3 (08:48→17:49)
[2022-03-16] MEDS: Juven (unflavored) Packet 1 PACKET PO ×2 (08:48→17:49)
[2022-03-16 08:50] LABS: Bedside Glucose 104 mg/dL (74-106)
--- NOTE | 2022-03-16 08:59 | PN.RENAL_ITS ---
Documented by User: KATHRYN Luong 03/16/22 09:05 Subjective Subjective Following for dialysis requiring DAVIS on CKD Patient sitting up in bed, denies any complaints. States feeling better, appetite improving. Objective Data Objective Data Vital Signs: Vital Signs Temp Pulse Resp BP Pulse Ox O2 Del Method O2 Flow Rate 97.3 F L 86 18 94/53 L 98 Nasal Cannula 4 03/16/22 03:30 03/16/22 07:00 03/16/22 03:30 03/16/22 03:30 03/16/22 03:30 03/16/22 03:30 03/16/22 03:30 FiO2 100 03/15/22 18:00 Oxygen Flow Rate (L/min) 4 Oxygen Delivery Method Nasal Cannula Weight: 78.5 kg Body Mass Index (BMI) 26.9 Intake & Output: Intake and Output for Last 24 Hours 03/14/22 03/15/22 03/16/22 23:59 23:59 23:59 Intake Total 1720.83 / 1720.83 820 / 820 Output Total 1150 / 1350 350 / 350 0 / 0 Balance 570.83 / 370.83 470 / 470 0 / 0 Lab / Micro Data Result Diagrams: 03/16/22 06:10 03/16/22 06:10 Labs: Laboratory Results - last 24 hr 03/15/22 10:26: POC Glucose 95 03/15/22 12:52: POC Glucose 92 03/15/22 18:41: POC Glucose 101 03/15/22 22:26: POC Glucose 166 H 03/16/22 06:10: WBC 7.8, RBC 2.54 L, Hgb 7.6 L, Hct 25.5 L, MCV 100.4 H, MCH 29.9, MCHC 29.8 L, RDW Std Deviation 59.6 H, RDW Coeff of Nguyen 16.5 H, Plt Count 117 L, MPV 11.3, Immature Gran % (Auto) 1.300 H, Neut % (Auto) 81.9 H, Lymph % (Auto) 6.3 L, [place] % (Auto) 7.7, Eos % (Auto) 2.4, Baso % (Auto) 0.4, Absolute Neuts (auto) 6.4, Absolute Lymphs (auto) 0.49 L, Nucleated RBC % 0, Platelet Estimate SLT DEC, Anisocytosis 1+, Macrocytosis 1+, Acanthocytes (Spur) 1+ 03/16/22 06:10: Sodium 133 L, Potassium 3.7, Chloride 100, Carbon Dioxide 26.0, Anion Gap 7, BUN 34 H, Creatinine 3.16 H, Estim Creat Clear Calc 18.30, Est GFR (MDRD) Af Amer 25 L, Est GFR (MDRD) Non-Af 20 L, BUN/Creatinine Ratio 10.8, Glucose 113 H, Calcium 8.4 L 03/16/22 08:27: POC Glucose 104 Micro: Microbiology 03/10/22 16:10 Stool Enteric Bacteriology - Final 03/10/22 16:10 Stool C. difficile DNA Amplification - Final 03/02/22 08:05 Blood Culture (Wb) - Neck Blood Culture - Final No growth in 5 days. 03/02/22 08:10 Blood Culture (Wb) - Right Forearm Blood Culture - Final No growth in 5 days. 03/04/22 09:40 Stool Stool Occult Blood (CANDIDA) - Final Occult Blood Positive 03/02/22 18:20 Stool C. difficile DNA Amplification - Final 03/01/22 21:30 Mucosa - Nasopharyngeal Respiratory Panel (PCR) - Final 03/01/22 22:00 Urine Catheter - Catheter Legionella Antigen - Final 03/01/22 22:00 Urine Catheter - Catheter Streptococcus pneumoniae Antigen (M - Final Rhythm Strip Rhythm Strip: Sinus Rhythm Rate: 82 Physical Exam Narrative Alert and oriented x3, no apparent distress Lung sounds clear anteriorly, no wheezes, rhonchi or rales noted S1, S2, RRR Abdomen soft, nontender No significant lower extremity pitting edema. Edema to bilateral arms. Dressings clean dry and intact to bilateral feet Left internal jugular tunneled HD catheter dressing clean, dry and intact Assessment & Plan Assessment/Plan (1) Acute renal failure (ARF): QUALIFIERS: Acute renal failure type: unspecified Qualified Code(s): N17.9 - Acute kidney failure, unspecified (2) Chronic kidney disease, stage 3b: (3) Hypotension: (4) Anemia: (5) Ischemic cardiomyopathy: (6) Peripheral vascular disease, unspecified: PLAN: Plan - dialysis dependent DAVIS on CKD. Patient has been essentially anuric. -No noted renal recovery at this time. Creatinine 4.44 mg/dL pre-dialysis yesterday. Tolerated HD yesterday with ~1.5L UF removed. UOP still low. 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 Suspect the patient has underlying diabetic kidney disease or nephrosclerosis related to PAD. - DAVIS is secondary to ischemic ATN from circulatory shock/sepsis. The patient was started on dialysis on 03/02/2022, serum creatinine 9.52 mg/dL. -We will continue to monitor for any renal recovery. -Hypotension thought to be related to sepsis. The patient also has ischemic cardiomyopathy, EF 35%. Continue midodrine 10 mg 3 times daily, bps improved. - GI consulted for anemia and diarrhea. Current hemoglobin 7.6, hemoglobin has ranged 7 to 8 g/dL this admission. Had colonoscopy yesterday with findings of hemorrhoids, single ulcer in rectum treated with heater probe. - Status post angiogram of the lower extremities per vascular. -Dialysis discharge plans discussed with patient and his yesterday. Patient is wanting to go home, if patient goes home dialysis to be arranged at [facility]. -Plan discussed with Dr. Martin and discharge planning team. Discharge plans underway. Documented by User: Dr. Angus Pradhan MD 03/16/22 15:40 Objective Data Lab / Micro Data Result Diagrams: 03/16/22 06:10 03/16/22 06:10 Assessment & Plan Assessment/Plan (1) Acute renal failure (ARF): QUALIFIERS: Acute renal failure type: unspecified Qualified Code(s): N17.9 - Acute kidney failure, unspecified (2) Chronic kidney disease, stage 3b: (3) Hypotension: (4) Anemia: (5) Ischemic cardiomyopathy: (6) Peripheral vascular disease, unspecified: PLAN: Plan - dialysis dependent DAVIS on CKD. Patient has been essentially anuric. -No noted renal recovery at this time. Creatinine 4.44 mg/dL pre-dialysis yesterday. Tolerated HD yesterday with ~1.5L UF removed. UOP still low. 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 Suspect the patient has underlying diabetic kidney disease or nephrosclerosis related to PAD. - DAVIS is secondary to ischemic ATN from circulatory shock/sepsis. The patient was started on dialysis on 03/02/2022, serum creatinine 9.52 mg/dL. -We will continue to monitor for any renal recovery. -Hypotension thought to be related to sepsis. The patient also has ischemic cardiomyopathy, EF 35%. Continue midodrine 10 mg 3 times daily, bps improved. - GI consulted for anemia and diarrhea. Current hemoglobin 7.6, hemoglobin has ranged 7 to 8 g/dL this admission. Had colonoscopy yesterday with findings of hemorrhoids, single ulcer in rectum treated with heater probe. - Status post angiogram of the lower extremities per vascular. -Dialysis discharge plans discussed with patient and his yesterday. Patient is wanting to go home, if patient goes home dialysis to be arranged at [facility]. -Plan discussed with Dr. Martin and discharge planning team. Discharge plans underway. Nephrology attending addendum: The patient was seen and examined personally.? Nurse practitioner's note reflects my medical decision making with my attestation below. Following for dialysis dependent DAVIS on CKD. The patient denies chest pain, shortness of breath, or nausea. Vital signs and examination as above. Lungs are clear to auscultation anteriorly. Heart tones normal. There is no edema of the lower extremities. There is some edema of the upper extremities. Impression/Plan: The patient is a 76-year-old man with past history of type 2 diabetes mellitus, CKD stage IIIb, CAD, heart failure with reduced ejection fraction (EF 35%) likely due to ischemic cardiomyopathy, atrial fibrillation, PAD, RITESH, alcohol use disorder, and hyperlipidemia.? The patient was admitted to the hospital on 03/01/2022 because of nonhealing bilateral foot ulcer.? The patient was treated for septic shock due to foot infection.? Nephrology is following for dialysis dependent DAVIS on CKD. Acute kidney injury on chronic kidney disease stage IIIb. Prior baseline serum creatinine had been around 1.50 mg/dL (01/23/2022).? I suspect the patient has underlying diabetic kidney disease or nephrosclerosis related to PAD. DAVIS is secondary to ischemic ATN from circulatory shock/sepsis. The patient was started on dialysis on 03/02/2022. He remains dialysis dependent on TTS schedule.? Unfortunately, there is no signs of renal recovery yet. No need for dialysis today. Next dialysis planned for tomorrow on 03/17/2022. Continue to monitor for renal recovery. Hypotension.? This is thought to be related to sepsis.? The patient also has ischemic cardiomyopathy. Although BP is acceptable, he is still on midodrine. Continue to follow BP, particularly during dialysis. Anemia. Hemoglobin is low but relatively stable at 7.6 g/dL. There is no role for TIMOTEO from nephrology standpoint in the setting of DAVIS. Transfuse if hemoglobin remains below 7.0 g/dL. PAD. Status post angiogram of the lower extremities on 03/13/2022 per vascular. Heart failure with reduced ejection fraction/ischemic cardiomyopathy. The patient appears to be compensated without overt volume overload. Continue keep O>I with IHD. Unfortunately, he is unable to tolerate medication for heart failure such as beta-perez or RAAS inhibitor because of hypotension and DAVIS. Nephrology plan will be discussed with Dr. Medrano.
[2022-03-16] MEDS: Acetaminophen 325 MG Tablet 650 MG PO ×2 (10:06→15:12)
[2022-03-16] MEDS: Clopidogrel Bisulfate 75 MG Tablet PO (10:07)
[2022-03-16] MEDS: Loperamide 2 MG Capsule PO ×3 (10:07→21:55)
[2022-03-16] MEDS: Pantoprazole Sodium 40 MG Tablet PO ×2 (10:07→21:55)
[2022-03-16] MEDS: Aspirin E.C. 81 MG Tablet PO (10:07)
[2022-03-16] MEDS: Insulin NPH Human 100 UNITS/ML PEN 12 UNITS SC (10:08)
--- NOTE | 2022-03-16 10:32 | PN.HOSP_ITS ---
Subjective Subjective Patient seen and examined. He had no active complaints today and said he just wanted to be left alone. He had an uneventful night and review of systems otherwise negative. He remains hemodynamically stable. Objective Data Objective Data Vital Signs: Vital Signs Temp Pulse Resp BP Pulse Ox O2 Del Method O2 Flow Rate 97.7 F L 87 16 90/60 97 Nasal Cannula 4 03/16/22 10:00 03/16/22 10:00 03/16/22 10:00 03/16/22 10:00 03/16/22 10:00 03/16/22 10:00 03/16/22 10:00 FiO2 100 03/15/22 18:00 Oxygen Flow Rate (L/min) 4 Oxygen Delivery Method Nasal Cannula Weight: 173 lb 1.006 oz Body Mass Index (BMI) 26.9 Intake & Output: Intake and Output for Last 24 Hours 03/14/22 03/15/22 03/16/22 23:59 23:59 23:59 Intake Total 1720.83 / 1720.83 820 / 820 Output Total 1150 / 1350 350 / 350 0 / 0 Balance 570.83 / 370.83 470 / 470 0 / 0 Lab / Micro Data Result Diagrams: 03/16/22 06:10 03/16/22 06:10 Labs: Laboratory Results - last 24 hr 03/15/22 10:26: POC Glucose 95 03/15/22 12:52: POC Glucose 92 03/15/22 18:41: POC Glucose 101 03/15/22 22:26: POC Glucose 166 H 03/16/22 06:10: WBC 7.8, RBC 2.54 L, Hgb 7.6 L, Hct 25.5 L, MCV 100.4 H, MCH 29.9, MCHC 29.8 L, RDW Std Deviation 59.6 H, RDW Coeff of Nguyen 16.5 H, Plt Count 117 L, MPV 11.3, Immature Gran % (Auto) 1.300 H, Neut % (Auto) 81.9 H, Lymph % (Auto) 6.3 L, [place] % (Auto) 7.7, Eos % (Auto) 2.4, Baso % (Auto) 0.4, Absolute Neuts (auto) 6.4, Absolute Lymphs (auto) 0.49 L, Nucleated RBC % 0, Platelet Estimate SLT DEC, Anisocytosis 1+, Macrocytosis 1+, Acanthocytes (Spur) 1+ 03/16/22 06:10: Sodium 133 L, Potassium 3.7, Chloride 100, Carbon Dioxide 26.0, Anion Gap 7, BUN 34 H, Creatinine 3.16 H, Estim Creat Clear Calc 18.30, Est GFR (MDRD) Af Amer 25 L, Est GFR (MDRD) Non-Af 20 L, BUN/Creatinine Ratio 10.8, Glucose 113 H, Calcium 8.4 L 03/16/22 08:27: POC Glucose 104 Micro: Microbiology 03/10/22 16:10 Stool Enteric Bacteriology - Final 03/10/22 16:10 Stool C. difficile DNA Amplification - Final 03/02/22 08:05 Blood Culture (Wb) - Neck Blood Culture - Final No growth in 5 days. 03/02/22 08:10 Blood Culture (Wb) - Right Forearm Blood Culture - Final No growth in 5 days. 03/04/22 09:40 Stool Stool Occult Blood (CANDIDA) - Final Occult Blood Positive 03/02/22 18:20 Stool C. difficile DNA Amplification - Final 03/01/22 21:30 Mucosa - Nasopharyngeal Respiratory Panel (PCR) - Final 03/01/22 22:00 Urine Catheter - Catheter Legionella Antigen - Final 03/01/22 22:00 Urine Catheter - Catheter Streptococcus pneumoniae Antigen (M - Final Rhythm Strip Rhythm Strip: Sinus Rhythm Rate: 82 Physical Exam Const alert, oriented x3 and no apparent distress General Appearance: cooperative, well kempt and well developed Orientation / Consciousness: awake HEENT normocephalic, head/scalp atraumatic, moist oral mucous membranes and oropharynx normal Head and Scalp: normocephalic Mouth: oral and palatal mucosa normal Eyes PERRL, EOMs intact bilaterally and conjunctivae normal Neck no lymphadenopathy, supple, no JVD, thyroid normal and no carotid bruits Resp Resp Narrative: diminished breath sounds bibasally, no wheezes or crackles. On 4L of oxygen by nasal canula Auscultation: Negative for rales, rhonchi or wheezes Cardio regular rate, regular rhythm, S1 normal heart sound, S2 normal heart sound, no rub and no gallops Cardio Narrative: grade 2/6 systolic murmur noted at the apex, right sternal border, and left sternal border. GI normal to inspection, nondistended, normoactive bowel sounds, soft to palpation, non-tender and non-distended Extremity Extremity Narrative: both LEs wrapped in bandage Skin Skin Narrative: bilateral LE wrapped in bandage Neuro oriented x3, CN's II-XII intact bilaterally, moves all extremities, no focal motor deficits and no sensory deficits noted Sensorium / Orientation: awake and alert Speech: speech normal Psych affect normal Assessment & Plan Assessment/Plan (1) Septic shock: (2) Acute on chronic systolic (congestive) heart failure: (3) Non-pressure chronic ulcer of other part of left foot with fat layer exposed: PLAN: Plan #Septic shock due to LE infected diabetic ulcers. * resolved. * now off pressors * ID on board * on PO ciprofloxacin and metronidazole * blood cultures are negative * #Diabetic foot ulcers * ID on board * wound cultures are polymicrobial * on IV vancomycin and PO ciprofloxacin as well as metronidazole, with stop date of 04/17/2022 * wound care on board * #Peripheral artery disease * s/p Aortogram, left lower extremity runoff, left popliteal angioplasty, left anterior tibial angioplasty * today is POD 3 * vascular surgery on board. * #Paroxysmal afib: on coumadin, held on admission. #DAVIS on CKD 3B: nephrology on board. Undergoing dialysis. #CAD s/p CABG and stents: on aspirin and lipitor. #TYpe 2 diabetes mellitus * on NPH insulin 12 units qam and NPH 5 units qhs * ISS. Accuchecks ACHS * #HFrEF: not in exacerbation. Stable #ANemia due to GI bleed * on PPI * FOBT positive * GI on board; had EGD yesterday which showed grade 2 esophageal varices and oozing gastric ulcer with adherent clot which was treated with monopolar probe as well as gastric antral vascular ectasias without bleeding which was biopsied. Second portion of duodenum was normal. * Colonoscopy done yesterday showed hemorrhoids and a single ulcer in the rectum which was treated with heater probe; he also had diverticulosis in the rectosigmoid colon as well as a stricture in the sigmoid colon which was dilated. * PPI. * Discussed with GI about when Coumadin can be resumed. * * DVT prophylaxis: SCDs Disposition: Patient will benefit from placement but is quite resistant to this. Case management on board. Charges/Coding Visit Charges Inpatient E&M: 27622 Subs Hosp L2
--- NOTE | 2022-03-16 11:11 | PCM.PN.ID ---
Physical Exam Narrative Feeling better, diarrhea has slowed, no fever Const alert and no apparent distress Resp normal air movement and clear to auscultation bilaterally Cardio regular rate and regular rhythm GI soft to palpation, non-tender and non-distended Extremity General Extremity: edema Skin Skin Narrative: feet wrapped ID ID: Route of nutrition/ use of supplements: [] Nutritional Intake: [] IV Site: [] Laura Catheter: [] Assessment & Plan Assessment/Plan (1) Septic shock: PLAN: Due to BLE infected ulcers and gangrene. Recent wound cx with citro, proteus, morganella, serratia, GBS, enterococcus, and anaerobes. Had been on po doxy/cipro, but those are unreliable for GBS, enterococcus, and anaerobes. Podiatry following, amputation planned. Given severity of illness, put on zosyn. Cdiff neg. Now off pressors. Added probiotic, scheduled imodium, and 03/14 changed to iv vanc dosed with HD and po cipro/flagyl to see if this helps. Stop date 04/17/22 with weekly labs, wrote rx. ID followup in 4 weeks. Feeling better, diarrhea now improved. Will follow (2) DAVIS (acute kidney injury): (3) Diabetic infection of right foot:
--- NOTE | 2022-03-16 12:19 | PCM.PROGNOTE ---
Subjective Subjective No changes today. denies consitutitonals. Objective Data Objective Data Vital Signs: Vital Signs Temp Pulse Resp BP Pulse Ox O2 Del Method O2 Flow Rate 97.8 F 90 16 100/58 L 100 Nasal Cannula 3 03/16/22 12:00 03/16/22 12:00 03/16/22 12:00 03/16/22 12:00 03/16/22 12:00 03/16/22 12:00 03/16/22 12:00 FiO2 100 03/15/22 18:00 Oxygen Flow Rate (L/min) 3 Oxygen Delivery Method Nasal Cannula Weight: 78.5 kg Body Mass Index (BMI) 26.9 Intake & Output: Intake and Output for Last 24 Hours 03/14/22 03/15/22 03/16/22 23:59 23:59 23:59 Intake Total 1720.83 / 1720.83 820 / 820 Output Total 1150 / 1350 350 / 350 0 / 0 Balance 570.83 / 370.83 470 / 470 0 / 0 Lab / Micro Data Result Diagrams: 03/16/22 06:10 03/16/22 06:10 Labs: Laboratory Results - last 24 hr 03/15/22 12:52: POC Glucose 92 03/15/22 18:41: POC Glucose 101 03/15/22 22:26: POC Glucose 166 H 03/16/22 06:10: WBC 7.8, RBC 2.54 L, Hgb 7.6 L, Hct 25.5 L, MCV 100.4 H, MCH 29.9, MCHC 29.8 L, RDW Std Deviation 59.6 H, RDW Coeff of Nguyen 16.5 H, Plt Count 117 L, MPV 11.3, Immature Gran % (Auto) 1.300 H, Neut % (Auto) 81.9 H, Lymph % (Auto) 6.3 L, [place] % (Auto) 7.7, Eos % (Auto) 2.4, Baso % (Auto) 0.4, Absolute Neuts (auto) 6.4, Absolute Lymphs (auto) 0.49 L, Nucleated RBC % 0, Platelet Estimate SLT DEC, Anisocytosis 1+, Macrocytosis 1+, Acanthocytes (Spur) 1+ 03/16/22 06:10: Sodium 133 L, Potassium 3.7, Chloride 100, Carbon Dioxide 26.0, Anion Gap 7, BUN 34 H, Creatinine 3.16 H, Estim Creat Clear Calc 18.30, Est GFR (MDRD) Af Amer 25 L, Est GFR (MDRD) Non-Af 20 L, BUN/Creatinine Ratio 10.8, Glucose 113 H, Calcium 8.4 L 03/16/22 08:27: POC Glucose 104 Micro: Microbiology 03/10/22 16:10 Stool Enteric Bacteriology - Final 03/10/22 16:10 Stool C. difficile DNA Amplification - Final 03/02/22 08:05 Blood Culture (Wb) - Neck Blood Culture - Final No growth in 5 days. 03/02/22 08:10 Blood Culture (Wb) - Right Forearm Blood Culture - Final No growth in 5 days. 03/04/22 09:40 Stool Stool Occult Blood (CANDIDA) - Final Occult Blood Positive 03/02/22 18:20 Stool C. difficile DNA Amplification - Final 03/01/22 21:30 Mucosa - Nasopharyngeal Respiratory Panel (PCR) - Final 03/01/22 22:00 Urine Catheter - Catheter Legionella Antigen - Final 03/01/22 22:00 Urine Catheter - Catheter Streptococcus pneumoniae Antigen (M - Final Rhythm Strip Rhythm Strip: Sinus Rhythm Rate: 82 Physical Exam Narrative Neurovascular status unchanged from previous visit. Improved edema to bilateral lower extremity. Less drainage to leg ulcerations. Ischemic ulcerations to the distal tuft of the left second third and first digit appear to be dry and stable at this point. Resolved signs of infection stable ischemic changes to right second digit. Stable ischemic wound to plantar heel bilaterally and plantar fifth metatarsal head bilaterally. Skin is atrophic bilateral. No acute worsening to the feet bilateral- feet and ankles bilateral are stable at this time. 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 Feet are stable at this time with chronic changes. Patient is significant chronic PAD bilateral lower extremity. Vascular surgery/Dr. Santo - underwent percutaneous intervention LLE 03/13/22. Peroneal flow noted. Vascular surgery going to reattempt intervention in a couple weeks, then will proceed with definitive amputation if intervention successful. In the meantime we will continue local wound care with dressing changes, offloading, and observe for any acute degeneration of the wound sites. For d/c planning: Recommend SNF/extended care facility - discussed with patient in detail today - patient agreeable. Dressing changes should be daily. Cleansing foot with soap/water, dressing wounds with betadine paint and DSD. Patient should remain non-weightbearing to wounds bilaterally. I will plan to see patient weekly upon discharge to ensure no degeneration of wounds (2) Peripheral vascular disease, unspecified: (3) Non-pressure chronic ulcer of other part of left foot with fat layer exposed: (4) Diabetic infection of right foot:
--- NOTE | 2022-03-16 12:32 | PN_ITS ---
Subjective Subjective He underwent an upper and lower endoscopy. He was discovered to have gastritis in the gastric antrum with some mild bleeding stigmata that was cauterized during his upper endoscopy.. That was treated endoscopically. The rest of his colon looked okay except for some diverticulosis. I will his colonoscopy had shown a large ulcer in the rectum thought to be secondary to stercoral ulcer from chronic constipation Objective Data Objective Data Vital Signs: Vital Signs Temp Pulse Resp BP Pulse Ox O2 Del Method O2 Flow Rate 97.8 F 90 16 100/58 L 100 Nasal Cannula 3 03/16/22 12:00 03/16/22 12:00 03/16/22 12:00 03/16/22 12:00 03/16/22 12:00 03/16/22 12:00 03/16/22 12:00 FiO2 100 03/15/22 18:00 Oxygen Flow Rate (L/min) 3 Oxygen Delivery Method Nasal Cannula Weight: 173 lb 1.006 oz Body Mass Index (BMI) 26.9 Intake & Output: Intake and Output for Last 24 Hours 03/14/22 03/15/22 03/16/22 23:59 23:59 23:59 Intake Total 1720.83 / 1720.83 820 / 820 Output Total 1150 / 1350 350 / 350 0 / 0 Balance 570.83 / 370.83 470 / 470 0 / 0 Lab / Micro Data Result Diagrams: 03/16/22 06:10 03/16/22 06:10 Labs: Laboratory Results - last 24 hr 03/15/22 12:52: POC Glucose 92 03/15/22 18:41: POC Glucose 101 03/15/22 22:26: POC Glucose 166 H 03/16/22 06:10: WBC 7.8, RBC 2.54 L, Hgb 7.6 L, Hct 25.5 L, MCV 100.4 H, MCH 29.9, MCHC 29.8 L, RDW Std Deviation 59.6 H, RDW Coeff of Nguyen 16.5 H, Plt Count 117 L, MPV 11.3, Immature Gran % (Auto) 1.300 H, Neut % (Auto) 81.9 H, Lymph % (Auto) 6.3 L, [place] % (Auto) 7.7, Eos % (Auto) 2.4, Baso % (Auto) 0.4, Absolute Neuts (auto) 6.4, Absolute Lymphs (auto) 0.49 L, Nucleated RBC % 0, Platelet Estimate SLT DEC, Anisocytosis 1+, Macrocytosis 1+, Acanthocytes (Spur) 1+ 03/16/22 06:10: Sodium 133 L, Potassium 3.7, Chloride 100, Carbon Dioxide 26.0, Anion Gap 7, BUN 34 H, Creatinine 3.16 H, Estim Creat Clear Calc 18.30, Est GFR (MDRD) Af Amer 25 L, Est GFR (MDRD) Non-Af 20 L, BUN/Creatinine Ratio 10.8, Glucose 113 H, Calcium 8.4 L 03/16/22 08:27: POC Glucose 104 Micro: Microbiology 03/10/22 16:10 Stool Enteric Bacteriology - Final 03/10/22 16:10 Stool C. difficile DNA Amplification - Final 03/02/22 08:05 Blood Culture (Wb) - Neck Blood Culture - Final No growth in 5 days. 03/02/22 08:10 Blood Culture (Wb) - Right Forearm Blood Culture - Final No growth in 5 days. 03/04/22 09:40 Stool Stool Occult Blood (CANDIDA) - Final Occult Blood Positive 03/02/22 18:20 Stool C. difficile DNA Amplification - Final 03/01/22 21:30 Mucosa - Nasopharyngeal Respiratory Panel (PCR) - Final 03/01/22 22:00 Urine Catheter - Catheter Legionella Antigen - Final 03/01/22 22:00 Urine Catheter - Catheter Streptococcus pneumoniae Antigen (M - Final Rhythm Strip Rhythm Strip: Sinus Rhythm Rate: 82 Physical Exam Narrative Improved edema to bilateral lower extremity. Less drainage to leg ulcerations. Ischemic ulcerations to the distal tuft of the left second third and first digit appear to be dry and stable at this point. Resolved signs of infection stable ischemic changes to right second digit. Stable ischemic wound to plantar heel bilaterally and plantar fifth metatarsal head bilaterally. Skin is atrophic bilateral. No acute worsening to the feet bilateral- feet and ankles bilateral are stable at this time. Assessment & Plan Assessment/Plan (1) Anemia: PLAN: Anemia secondary to acute on chronic GI bleed. Status posttreatment APC he is not showing any signs of bleeding at this time. His hemoglobin seems to be stable (2) Diarrhea: PLAN: .Diarrhea possibly secondary to chronic pancreatitis. Recommend to give budesonide and pancreatic enzymes (3) Alcohol abuse:
--- NOTE | 2022-03-16 12:33 | CASEMGMT ---
Addendum entered by Purvi Walker 03/16/22 13:37: Patient's called SW back. SW let her know about current plans after Dr Fan spoke with patient. She will be in later after she gets off work. SW will leave a list in the room for them to review. SW asked that they pick 3-4 options and SW will take care of making referrals. Purvi BROWN Original Note: Per RN TATIANA Fan spoke with patient and he agreed to go to a facility. SW and RN TATIANA Ramirez went to patient's room. SW introduced self and role at [facility]. SW asked patient if he wanted to go to a local facility or if he wanted a [facility]. Patient said he was told it was short term and now it is gonna be 6 months. SW explained that is just the name of the facility. Patient said he wants to go some place local. SW let patient know SW will get them a list of facilities to choose from. SW called patient's and left her a voice mail letting her know above information. Plan: SNF pending facility choices and accepting facility. Purvi BROWN
[2022-03-16] MEDS: Budesonide 3 MG CAPSULE.EC 9 MG PO (13:48)
[2022-03-16] MEDS: Menthol/Lanolin/Calamine/Znox 113 GM Tube 1 APPLIC TOPICAL ×2 (13:49→21:55)
[2022-03-16 14:05] LABS: Bedside Glucose 125 mg/dL (74-106)
[2022-03-16 15:08] LABS: Endomysial Antibody IgA Negative (Negative)
[2022-03-16 15:39] LABS: Deamidated Gliadin IgA 9 units (0-19); Deamidated Gliadin IgG 4 units (0-19); Immunoglobulin A 291 mg/dL (61-437); t-Transglutaminase IgA <2 U/mL (0-3)
[2022-03-16 16:08] LABS: Anti-Centromere B Ab <0.2 AI (0.0-0.9); Anti-Chromatin <0.2 AI (0.0-0.9); Anti-Jo <0.2 AI (0.0-0.9); Anti-Scleroderma-70 AB <0.2 AI (0.0-0.9); RNP Ab 0.2 AI (0.0-0.9); SJOGREN'S Anti-SS-A test < 0.2 AI (0.0-0.9); SJOGREN'S Anti-SS-B test < 0.2 AI (0.0-0.9); Smith Ab <0.2 AI (0.0-0.9)
--- NOTE | 2022-03-16 16:27 | CASEMGMT ---
SW sat down and spoke with patient and his . SW provided them a list of?long-term facility providers including quality and resource use data and consistent with patient?s preferred geographic region, medical needs, and insurance network were provided from [facility]. SW asked them to pick at least 3-4 facilities and SW will make the referrals. SW also sat down and spoke with patient about the need to work with therapy. Patient said he is fine with therapy, but he feels they were too pushy and wanted to get him done quick to check him off their list. Patient is afraid of falling. SW reassured patient the therapists are trained professionals. Patient agrees to work with therapy. Purvi Walker RN BARIATRIC KEVIN
[2022-03-16] MEDS: Insulin Lispro 100 UNIT/ML INSULN.PEN SC ×2 (17:49→21:54)
[2022-03-16 18:15] LABS: Bedside Glucose 185 mg/dL (74-106)
[2022-03-16 20:52] LABS: Anti-dsDNA Ab <1 IU/mL (0-9)
[2022-03-16] MEDS: Insulin NPH Human 100 UNITS/ML PEN SC (21:54)
[2022-03-16] MEDS: 0.9% Saline Lock 10 ML Syringe IV (21:54)
[2022-03-16] MEDS: Atorvastatin Calcium 80 MG Tablet PO (21:55)
[2022-03-16] MEDS: Ciprofloxacin 500 MG Tablet PO (21:55)
[2022-03-16] MEDS: MELATONIN 3 MG TABLET PO (22:01)
[2022-03-16 22:35] LABS: Bedside Glucose 206 mg/dL (74-106)
[2022-03-17] VITALS (16 sets, daily range): BP systolic 93–108; BP diastolic 54–76; PULSE 81–94; RESP 12–26; TEMP 36.3–37.1; O2SAT 94–100
[2022-03-17] MEDS: 0.9% Saline Lock 10 ML Syringe IV (00:32)
[2022-03-17] MEDS: Ondansetron 4 MG/2 ML Vial IV (00:32)
--- NOTE | 2022-03-17 00:56 | RAD_ITS ---
INDICATION: Shortness of breath EXAMINATION: Frontal view of the chest COMPARISON: Chest x-ray March 09, 2022. FINDINGS: Frontal view of the chest was obtained. A pacing device projects over the left lateral chest wall. The tip of the left-sided dialysis catheter projects over the junction of the brachiocephalic veins and SVC as on the prior exam. The cardiac silhouette is enlarged. Small bilateral pleural effusions are grossly stable in size. Mild bibasilar atelectasis. Mild pulmonary vascular congestion on the prior exam has improved. No pneumothorax. RAD/Chest 1 View (Portable) IMPRESSION: Small bilateral pleural effusions are grossly stable in size. Associated mild bibasilar atelectasis. Stable cardiomegaly. Electronically Signed: Balaji Casanova MD at 1:58 EST ,
--- NOTE | 2022-03-17 01:05 | PCM.HOSP.N ---
Hospitalist Note Called d/t pt reporting SOB over several hours. Went to eval, pt reports it's not getting any worse but feels somewhat more SOB from baseline. Minimal urine output, is edematous and reports he doesn't feel that is worse from baseline. Slight cough. COVID/Flu swab, cxr, basic labs, abg, and bipap ordered.
--- NOTE | 2022-03-17 01:16 | NURSING ---
pt c/o sob, on 3L NC sats at 94-95%. LS dim, faint crackles at bases. Pt has pitting edema BUA, moist cough. Notified .
[2022-03-17] MEDS: metroNIDAZOLE 500 MG Tablet PO ×3 (07:05→21:23)
[2022-03-17] MEDS: Midodrine HCl 5 MG Tablet 10 MG PO ×3 (08:11→16:19)
[2022-03-17] MEDS: Loperamide 2 MG Capsule PO ×2 (08:11→21:23)
[2022-03-17] MEDS: Juven (unflavored) Packet 1 PACKET PO ×2 (08:11→16:17)
[2022-03-17] MEDS: Insulin Lispro 100 UNIT/ML INSULN.PEN SC ×4 (08:12→21:41)
[2022-03-17 08:40] LABS: Bedside Glucose 201 mg/dL (74-106)
[2022-03-17] MEDS: Budesonide 3 MG CAPSULE.EC 9 MG PO (08:40)
[2022-03-17] MEDS: Clopidogrel Bisulfate 75 MG Tablet PO (08:41)
[2022-03-17] MEDS: Aspirin E.C. 81 MG Tablet PO (08:41)
[2022-03-17] MEDS: Pantoprazole Sodium 40 MG Tablet PO ×2 (08:41→21:24)
--- NOTE | 2022-03-17 10:31 | PN.HOSP_ITS ---
Subjective Subjective Patient seen and examined. He had no complaints today. He had an uneventful night. Review of systems is otherwise negative. He has remained hemodynamically stable. He is still undergoing dialysis. He is now agreeable to placement. Objective Data Objective Data Vital Signs: Vital Signs Temp Pulse Resp BP Pulse Ox O2 Del Method O2 Flow Rate 97.9 F 90 16 93/76 98 Nasal Cannula 2 03/17/22 08:15 03/17/22 08:15 03/17/22 08:15 03/17/22 08:15 03/17/22 08:15 03/17/22 08:15 03/17/22 08:15 FiO2 30 03/17/22 07:03 Oxygen Flow Rate (L/min) 2 Oxygen Delivery Method Nasal Cannula Weight: 175 lb 11.335 oz Body Mass Index (BMI) 26.9 Intake & Output: Intake and Output for Last 24 Hours 03/15/22 03/16/22 03/17/22 23:59 23:59 23:59 Intake Total 820 / 820 1160 / 1160 Output Total 350 / 350 0 / 0 Balance 470 / 470 1160 / 1160 Lab / Micro Data Result Diagrams: 03/16/22 06:10 03/16/22 06:10 Labs: Laboratory Results - last 24 hr 03/15/22 05:45: ANUPAMA-1 Antibody <0.2, SS-A/Ro IgG Antibody < 0.2, SS-B/La IgG Antibody < 0.2, Sm (Erazo) Antibody <0.2, HEALTHCARE CORPORATE ACCOUNT DIRECTOR Antibody 0.2, Scl-70 Scleroderma Ab <0.2, Double Strand DNA Ab <1, Centromere B Antibody <0.2 03/15/22 05:45: IgA 291, Endomysial IgA Ab Negative, Tiss Transglutamin IgG 5, Tiss Transglutamin IgA <2, Anti-Gliadin IgG Ab 4, Anti-Gliadin IgA Ab 9 03/16/22 12:04: POC Glucose 125 H 03/16/22 17:44: POC Glucose 185 H 03/16/22 21:49: POC Glucose 206 H 03/17/22 08:09: POC Glucose 201 H Micro: Microbiology 03/17/22 05:45 Mucosa - Nasopharyngeal Respiratory Panel (PCR) - Final Rhinovirus 03/17/22 02:15 Nasal Secretion SARS-CoV-2 & FLU Antigen (Rapid) - Final 03/10/22 16:10 Stool Enteric Bacteriology - Final 03/10/22 16:10 Stool C. difficile DNA Amplification - Final 03/02/22 08:05 Blood Culture (Wb) - Neck Blood Culture - Final No growth in 5 days. 03/02/22 08:10 Blood Culture (Wb) - Right Forearm Blood Culture - Final No growth in 5 days. 03/04/22 09:40 Stool Stool Occult Blood (CANDIDA) - Final Occult Blood Positive 03/02/22 18:20 Stool C. difficile DNA Amplification - Final 03/01/22 21:30 Mucosa - Nasopharyngeal Respiratory Panel (PCR) - Final 03/01/22 22:00 Urine Catheter - Catheter Legionella Antigen - Final 03/01/22 22:00 Urine Catheter - Catheter Streptococcus pneumoniae Antigen (M - Final Radiography Diagnostic Testing: Radiology Impression Chest X-Ray 03/17/22 00:56 IMPRESSION: Small bilateral pleural effusions are grossly stable in size. Associated mild bibasilar atelectasis. Stable cardiomegaly. Electronically Signed: Balaji Casanova MD at 1:58 EST , Rhythm Strip Rhythm Strip: Sinus Rhythm Rate: 82 Physical Exam Const alert, oriented x3 and no apparent distress General Appearance: cooperative, well kempt and well developed Orientation / Consciousness: awake HEENT normocephalic, head/scalp atraumatic, moist oral mucous membranes and oropharynx normal Head and Scalp: normocephalic Mouth: oral and palatal mucosa normal Eyes PERRL, EOMs intact bilaterally and conjunctivae normal Neck no lymphadenopathy, supple, no JVD, thyroid normal and no carotid bruits General: trachea midline Resp normal respiratory effort, no retractions, no use of accessory muscles and clear to auscultation bilaterally Resp Narrative: diminished breath sounds bibasally, no wheezes or crackles. On 2L of oxygen by nasal canula Auscultation: Negative for rales, rhonchi or wheezes Cardio regular rate, regular rhythm, S1 normal heart sound, S2 normal heart sound, no murmurs, no rub and no gallops Cardio Narrative: grade 2/6 systolic murmur noted at the apex, right sternal border, and left sternal border. GI normal to inspection, nondistended, normoactive bowel sounds, soft to palpation, non-tender and non-distended Extremity Extremity Narrative: both LEs wrapped in bandage Skin Skin Narrative: bilateral LE wrapped in bandage Neuro oriented x3, CN's II-XII intact bilaterally, moves all extremities, no focal motor deficits and no sensory deficits noted Sensorium / Orientation: awake and alert Speech: speech normal Psych affect normal Assessment & Plan Assessment/Plan (1) Septic shock: (2) Acute on chronic systolic (congestive) heart failure: (3) Non-pressure chronic ulcer of other part of left foot with fat layer exposed: PLAN: Plan #Septic shock due to LE infected diabetic ulcers. * resolved. * now off pressors * ID on board * on PO ciprofloxacin and metronidazole * blood cultures are negative * #Diabetic foot ulcers * ID on board * wound cultures are polymicrobial * on IV vancomycin and PO ciprofloxacin as well as metronidazole, with stop date of 04/17/2022 * wound care on board * #Peripheral artery disease * s/p Aortogram, left lower extremity runoff, left popliteal angioplasty, left anterior tibial angioplasty * today is POD 4 * vascular surgery on board. * #Paroxysmal afib: on coumadin, held on admission. #DAVIS on CKD 3B: nephrology on board. Undergoing dialysis. #CAD s/p CABG and stents: on aspirin and lipitor. #TYpe 2 diabetes mellitus * on NPH insulin 12 units qam and NPH 5 units qhs * ISS. Accuchecks ACHS * #HFrEF: not in exacerbation. Stable #ANemia due to GI bleed * on PPI * FOBT positive * GI on board; had EGD which showed grade 2 esophageal varices and oozing gastric ulcer with adherent clot which was treated with monopolar probe as well as gastric antral vascular ectasias without bleeding which was biopsied. Second portion of duodenum was normal. * Colonoscopy done yesterday showed hemorrhoids and a single ulcer in the rectum which was treated with heater probe; he also had diverticulosis in the rectosigmoid colon as well as a stricture in the sigmoid colon which was dilated. * PPI. * Discuss with GI about when Coumadin can be resumed. * DVT prophylaxis: SCDs Disposition:now agreeable to placement. Awaiting placement Charges/Coding Visit Charges Inpatient E&M: 65068 Subs Hosp L2
[2022-03-17] MEDS: LORazepam 1 MG Tablet PO (11:14)
[2022-03-17 11:35] LABS: Bedside Glucose 213 mg/dL (74-106)
[2022-03-17 13:18] LABS: Lactic Acid 1.5 mmol/L (0.4-1.9)
[2022-03-17 14:07] LABS: Anion Gap 7 (5-15); BUN 63 mg/dL (7-18); BUN/Creat Ratio 14.4 RATIO (10-20); Calcium,Total 8.5 mg/dL (8.5-10.1); Chloride 101 mmol/L (98-107); Creatinine, Serum 4.38 mg/dL (0.70-1.30); EST Glomerular Filtration Rate 14 mL/min (>60); Est Glom Filt Rate - Afr Amer 17 mL/min (>60); Glucose 205 mg/dL (74-106); Potassium 4.5 mmol/L (3.5-5.1); Sodium Level 133 mmol/L (136-145)
[2022-03-17] MEDS: Menthol/Lanolin/Calamine/Znox 113 GM Tube 1 APPLIC TOPICAL ×2 (14:15→21:25)
[2022-03-17] MEDS: Acetaminophen 325 MG Tablet 650 MG PO (14:15)
--- NOTE | 2022-03-17 14:18 | PCM.RX.CS ---
Consult Pharmacy has been consulted to manage selected antiobiotic: Vancomycin Type of Consult: Follow-up Prior Doses of Antibiotics Received/Current Regimen: last had a 500mg dose after dialysis on 03/15/22 at 18:54 Labs: Sodium 133 mmol/L (136-145) L 03/17/22 12:46 Potassium 4.5 mmol/L (3.5-5.1) 03/17/22 12:46 Chloride 101 mmol/L (98-107) 03/17/22 12:46 Carbon Dioxide 25.0 mmol/L (21.0-32.0) 03/17/22 12:46 Anion Gap 7 (5-15) 03/17/22 12:46 BUN 63 mg/dL (7-18) H 03/17/22 12:46 Creatinine 4.38 mg/dL (0.70-1.30) H 03/17/22 12:46 Est GFR (MDRD) Af Amer 17 mL/min (>60) L 03/17/22 12:46 Est GFR (MDRD) Non-Af 14 mL/min (>60) L 03/17/22 12:46 BUN/Creatinine Ratio 14.4 RATIO (10-20) 03/17/22 12:46 Glucose 205 mg/dL (74-106) H 03/17/22 12:46 Random Vancomycin 25.0 ug/mL (0.0-15.0) H 03/17/22 12:46 Microbiology: Microbiology 03/17/22 05:45 Mucosa - Nasopharyngeal Respiratory Panel (PCR) - Final Rhinovirus 03/17/22 02:15 Nasal Secretion SARS-CoV-2 & FLU Antigen (Rapid) - Final 03/10/22 16:10 Stool Enteric Bacteriology - Final 03/10/22 16:10 Stool C. difficile DNA Amplification - Final 03/02/22 08:05 Blood Culture (Wb) - Neck Blood Culture - Final No growth in 5 days. 03/02/22 08:10 Blood Culture (Wb) - Right Forearm Blood Culture - Final No growth in 5 days. 03/04/22 09:40 Stool Stool Occult Blood (CANDIDA) - Final Occult Blood Positive 03/02/22 18:20 Stool C. difficile DNA Amplification - Final 03/01/22 21:30 Mucosa - Nasopharyngeal Respiratory Panel (PCR) - Final 03/01/22 22:00 Urine Catheter - Catheter Legionella Antigen - Final 03/01/22 22:00 Urine Catheter - Catheter Streptococcus pneumoniae Antigen (M - Final Weight used for dosin.7 kg Estimated Creatinine Clearance: on HD Goal Trough: 15-20 mcg/mL Pharmacy Plan for Drug Dosing: The vanc random level drawn at 12:46 today before dialysis was 25.0. This is above 20 so no dose will be given after HD today. Repeat a vanc random level on Saturday before HD since the patient receives HD on a /Sat schedule. Will use that level to determine if a dose needs given that day after HD. Pharmacy Service will continue to monitor and adjust dosing as required. Follow-Up Labs: Trough Vancomycin Labs to be done on [date and time ordered]: 03/20/22 0600 random pre-HD
--- NOTE | 2022-03-17 15:27 | PCM.PN.REN ---
Subjective Subjective No new complaints Objective Data Objective Data Vital Signs: Vital Signs Temp Pulse Resp BP Pulse Ox O2 Del Method O2 Flow Rate 97.3 F L 91 16 108/58 L 100 Nasal Cannula 3 03/17/22 12:55 03/17/22 15:00 03/17/22 12:55 03/17/22 12:55 03/17/22 12:55 03/17/22 14:00 03/17/22 14:00 FiO2 30 03/17/22 07:03 Oxygen Flow Rate (L/min) 3 Oxygen Delivery Method Nasal Cannula Weight: 79.7 kg Body Mass Index (BMI) 26.9 Intake & Output: Intake and Output for Last 24 Hours 03/15/22 03/16/22 03/17/22 23:59 23:59 23:59 Intake Total 820 / 820 1160 / 1160 240 / 240 Output Total 350 / 350 0 / 0 Balance 470 / 470 1160 / 1160 240 / 240 Lab / Micro Data Result Diagrams: 03/16/22 06:10 03/17/22 12:46 Labs: Laboratory Results - last 24 hr 03/15/22 05:45: ANUPAMA-1 Antibody <0.2, SS-A/Ro IgG Antibody < 0.2, SS-B/La IgG Antibody < 0.2, Sm (Erazo) Antibody <0.2, DIRECTOR OF STRATEGIC SALES Antibody 0.2, Scl-70 Scleroderma Ab <0.2, Double Strand DNA Ab <1, Centromere B Antibody <0.2 03/15/22 05:45: IgA 291, Endomysial IgA Ab Negative, Tiss Transglutamin IgG 5, Tiss Transglutamin IgA <2, Anti-Gliadin IgG Ab 4, Anti-Gliadin IgA Ab 9 03/16/22 17:44: POC Glucose 185 H 03/16/22 21:49: POC Glucose 206 H 03/17/22 08:09: POC Glucose 201 H 03/17/22 11:12: POC Glucose 213 H 03/17/22 12:46: Sodium 133 L, Potassium 4.5, Chloride 101, Carbon Dioxide 25.0, Anion Gap 7, BUN 63 H, Creatinine 4.38 H, Estim Creat Clear Calc 13.20, Est GFR (MDRD) Af Amer 17 L, Est GFR (MDRD) Non-Af 14 L, BUN/Creatinine Ratio 14.4, Glucose 205 H, Calcium 8.5 03/17/22 12:46: Random Vancomycin 25.0 H 03/17/22 12:46: Lactic Acid 1.5 Micro: Microbiology 03/17/22 05:45 Mucosa - Nasopharyngeal Respiratory Panel (PCR) - Final Rhinovirus 03/17/22 02:15 Nasal Secretion SARS-CoV-2 & FLU Antigen (Rapid) - Final 03/10/22 16:10 Stool Enteric Bacteriology - Final 03/10/22 16:10 Stool C. difficile DNA Amplification - Final 03/02/22 08:05 Blood Culture (Wb) - Neck Blood Culture - Final No growth in 5 days. 03/02/22 08:10 Blood Culture (Wb) - Right Forearm Blood Culture - Final No growth in 5 days. 03/04/22 09:40 Stool Stool Occult Blood (CANDIDA) - Final Occult Blood Positive 03/02/22 18:20 Stool C. difficile DNA Amplification - Final 03/01/22 21:30 Mucosa - Nasopharyngeal Respiratory Panel (PCR) - Final 03/01/22 22:00 Urine Catheter - Catheter Legionella Antigen - Final 03/01/22 22:00 Urine Catheter - Catheter Streptococcus pneumoniae Antigen (M - Final Radiography Diagnostic Testing: Radiology Impression Chest X-Ray 03/17/22 00:56 IMPRESSION: Small bilateral pleural effusions are grossly stable in size. Associated mild bibasilar atelectasis. Stable cardiomegaly. Electronically Signed: Balaji Casanova MD at 1:58 EST , Rhythm Strip Rhythm Strip: Sinus Rhythm Rate: 82 Physical Exam Narrative Alert and oriented x3, no apparent distress Lung sounds clear anteriorly, no wheezes, rhonchi or rales noted S1, S2, RRR Abdomen soft, nontender No significant lower extremity pitting edema. Edema to bilateral arms. Dressings clean dry and intact to bilateral feet Left internal jugular tunneled HD catheter dressing clean, dry and intact Assessment & Plan Assessment/Plan (1) Acute renal failure (ARF): QUALIFIERS: Acute renal failure type: unspecified Qualified Code(s): N17.9 - Acute kidney failure, unspecified (2) Chronic kidney disease, stage 3b: (3) Hypotension: (4) Anemia: (5) Ischemic cardiomyopathy: (6) Peripheral vascular disease, unspecified: PLAN: Plan - dialysis dependent DAVIS on CKD. Patient has been essentially anuric. -No noted renal recovery at this time. Seen on HD, see orders - Prior baseline serum creatinine had been around 1.50 mg/dL (01/23/2022). Suspect the patient has underlying diabetic kidney disease or nephrosclerosis related to PAD. - DAVIS is secondary to ischemic ATN from circulatory shock/sepsis. The patient was started on dialysis on 03/02/2022, serum creatinine 9.52 mg/dL. -We will continue to monitor for any renal recovery. -Hypotension thought to be related to sepsis. The patient also has ischemic cardiomyopathy, EF 35%. Continue midodrine 10 mg 3 times daily, bps improved. - GI consulted for anemia and diarrhea. Current hemoglobin 7.6, hemoglobin has ranged 7 to 8 g/dL this admission. Had colonoscopy yesterday with findings of hemorrhoids, single ulcer in rectum treated with heater probe. - Status post angiogram of the lower extremities per vascular.
--- NOTE | 2022-03-17 15:44 | PN_ITS ---
Subjective Subjective He underwent an upper and lower endoscopy.? He was discovered to have gastritis in the gastric antrum with some mild bleeding stigmata that was cauterized during his upper endoscopy..? That was treated endoscopically.? The rest of his colon looked okay except for some diverticulosis. colonoscopy had shown a large ulcer in the rectum thought to be secondary to stercoral ulcer from chronic constipation. No signs of bleeding since his colonoscopy. Objective Data Objective Data Vital Signs: Vital Signs Temp Pulse Resp BP Pulse Ox O2 Del Method O2 Flow Rate 97.3 F L 91 16 108/58 L 100 Nasal Cannula 3 03/17/22 12:55 03/17/22 15:00 03/17/22 12:55 03/17/22 12:55 03/17/22 12:55 03/17/22 14:00 03/17/22 14:00 FiO2 30 03/17/22 07:03 Oxygen Flow Rate (L/min) 3 Oxygen Delivery Method Nasal Cannula Weight: 175 lb 11.335 oz Body Mass Index (BMI) 26.9 Intake & Output: Intake and Output for Last 24 Hours 03/15/22 03/16/22 03/17/22 23:59 23:59 23:59 Intake Total 820 / 820 1160 / 1160 240 / 240 Output Total 350 / 350 0 / 0 Balance 470 / 470 1160 / 1160 240 / 240 Lab / Micro Data Result Diagrams: 03/16/22 06:10 03/17/22 12:46 Labs: Laboratory Results - last 24 hr 03/15/22 05:45: ANUPAMA-1 Antibody <0.2, SS-A/Ro IgG Antibody < 0.2, SS-B/La IgG Antibody < 0.2, Sm (Erazo) Antibody <0.2, ALODIZE MACHINE HELPER Antibody 0.2, Scl-70 Scleroderma Ab <0.2, Double Strand DNA Ab <1, Centromere B Antibody <0.2 03/16/22 17:44: POC Glucose 185 H 03/16/22 21:49: POC Glucose 206 H 03/17/22 08:09: POC Glucose 201 H 03/17/22 11:12: POC Glucose 213 H 03/17/22 12:46: Sodium 133 L, Potassium 4.5, Chloride 101, Carbon Dioxide 25.0, Anion Gap 7, BUN 63 H, Creatinine 4.38 H, Estim Creat Clear Calc 13.20, Est GFR (MDRD) Af Amer 17 L, Est GFR (MDRD) Non-Af 14 L, BUN/Creatinine Ratio 14.4, Glucose 205 H, Calcium 8.5 03/17/22 12:46: Random Vancomycin 25.0 H 03/17/22 12:46: Lactic Acid 1.5 Micro: Microbiology 03/17/22 05:45 Mucosa - Nasopharyngeal Respiratory Panel (PCR) - Final Rhinovirus 03/17/22 02:15 Nasal Secretion SARS-CoV-2 & FLU Antigen (Rapid) - Final 03/10/22 16:10 Stool Enteric Bacteriology - Final 03/10/22 16:10 Stool C. difficile DNA Amplification - Final 03/02/22 08:05 Blood Culture (Wb) - Neck Blood Culture - Final No growth in 5 days. 03/02/22 08:10 Blood Culture (Wb) - Right Forearm Blood Culture - Final No growth in 5 days. 03/04/22 09:40 Stool Stool Occult Blood (CANDIDA) - Final Occult Blood Positive 03/02/22 18:20 Stool C. difficile DNA Amplification - Final 03/01/22 21:30 Mucosa - Nasopharyngeal Respiratory Panel (PCR) - Final 03/01/22 22:00 Urine Catheter - Catheter Legionella Antigen - Final 03/01/22 22:00 Urine Catheter - Catheter Streptococcus pneumoniae Antigen (M - Final Radiography Diagnostic Testing: Radiology Impression Chest X-Ray 03/17/22 00:56 IMPRESSION: Small bilateral pleural effusions are grossly stable in size. Associated mild bibasilar atelectasis. Stable cardiomegaly. Electronically Signed: Balaji Casanova MD at 1:58 EST , Rhythm Strip Rhythm Strip: Sinus Rhythm Rate: 82 Physical Exam Narrative Alert and oriented x3, no apparent distress Lung sounds clear anteriorly, no wheezes, rhonchi or rales noted S1, S2, RRR Abdomen soft, nontender No significant lower extremity pitting edema. Edema to bilateral arms. Dressings clean dry and intact to bilateral feet Left internal jugular tunneled HD catheter dressing clean, dry and intact Assessment & Plan Assessment/Plan (1) Diarrhea: PLAN: .Diarrhea possibly secondary to chronic pancreatitis.? Recommend to give budesonide and pancreatic enzymes (2) Anemia: PLAN: Anemia secondary to acute on chronic GI bleed.? Status posttreatment APC he is not showing any signs of bleeding at this time.? His hemoglobin seems to be stable Charges/Coding Visit Charges Inpatient E&M: 09413 Subs Hosp L3
[2022-03-17 16:41] LABS: Bedside Glucose 150 mg/dL (74-106)
--- NOTE | 2022-03-17 17:33 | DIALYSIS ---
Hemodialysis completed, 3.5 hours on a 3 K bath. Fluid removed was 2200 ml. Patient tolerated well. Next treatment per Nephrology.
[2022-03-17] MEDS: Creon 12,000 unit DR CapSULE 3 CAP PO (17:35)
[2022-03-17 21:01] LABS: Pancreatic Elastase, Fecal 339 (>200)
[2022-03-17] MEDS: Ciprofloxacin 500 MG Tablet PO (21:23)
[2022-03-17] MEDS: Atorvastatin Calcium 80 MG Tablet PO (21:24)
[2022-03-17] MEDS: Insulin NPH Human 100 UNITS/ML PEN SC (21:42)
[2022-03-17 23:51] LABS: Bedside Glucose 289 mg/dL (74-106)
[2022-03-18] VITALS (10 sets, daily range): BP systolic 90–104; BP diastolic 53–73; PULSE 91–103; RESP 18; TEMP 36.3–36.7; O2SAT 94–99
[2022-03-18] MEDS: metroNIDAZOLE 500 MG Tablet PO ×3 (05:22→21:11)
[2022-03-18 06:14] LABS: Absolute Lymphocyte Count 0.46 X10^3/uL (0.83-4.51); Absolute Neutrophil Count 7.9 X10^3/uL (2.0-7.7); Basophil# 0.02 X10^3/uL; Basophil% 0.2 % (0-1); Eosinophil# 0.02 X10^3/uL; Eosinophils% 0.2 % (0-5); Hemoglobin 7.9 g/dL (13.0-16.5); Lymphocyte # 0.46 X10^3/ul (0.83-4.51); Lymphocyte % 4.9 % (19-41); Mean Corp Hgb Conc 31.6 g/dL (32-36); Mean Corpuscular Hgb 30.6 pg (27.0-32.0); Mean Corpuscular Volume 96.9 fL (80-94); Mean Platelet Vol. 10.9 fl (6.2-12.0); Monocyte# 0.79 X10^3/uL; Monocyte% 8.5 % (0-10); NRBC Flagged by Analyzer 0.4 % (0-5); Neutrophil # 7.93 X10^3/uL (2.7-7.7); Neutrophil % 85.1 % (47-70); POSITIVE DIFFERENTIAL YES; Platelet Count 128 K/mm3 (150-450); RBC Distribution Width CV 17.7 % (11.6-14.6); RBC Distribution Width SD 59.9 fl (35.1-43.9); Red Blood Count 2.58 M/mm3 (4.6-6.2); White Blood Count 9.3 K/mm3 (4.4-11.0)
[2022-03-18 06:35] LABS: Differential Indicated SCAN CRITERIA MET
[2022-03-18 06:51] LABS: Anion Gap 8 (5-15); BUN 44 mg/dL (7-18); BUN/Creat Ratio 14.6 RATIO (10-20); Calcium,Total 8.7 mg/dL (8.5-10.1); Chloride 99 mmol/L (98-107); Creatinine, Serum 3.01 mg/dL (0.70-1.30); EST Glomerular Filtration Rate 22 mL/min (>60); Est Glom Filt Rate - Afr Amer 26 mL/min (>60); Estimated Creatinine Clearance 19.22 ml/min; Glucose 234 mg/dL (74-106); Potassium 4.2 mmol/L (3.5-5.1); Sodium Level 133 mmol/L (136-145)
[2022-03-18 08:05] LABS: Bedside Glucose 205 mg/dL (74-106)
[2022-03-18] MEDS: Insulin Lispro 100 UNIT/ML INSULN.PEN SC ×4 (08:30→21:18)
[2022-03-18] MEDS: Juven (unflavored) Packet 1 PACKET PO ×2 (08:31→17:18)
[2022-03-18] MEDS: Budesonide 3 MG CAPSULE.EC 9 MG PO (08:31)
[2022-03-18] MEDS: Clopidogrel Bisulfate 75 MG Tablet PO (08:31)
[2022-03-18] MEDS: Midodrine HCl 5 MG Tablet 10 MG PO ×3 (08:31→17:18)
[2022-03-18] MEDS: Pantoprazole Sodium 40 MG Tablet PO ×2 (08:31→21:12)
[2022-03-18] MEDS: Loperamide 2 MG Capsule PO ×2 (08:32→21:12)
[2022-03-18] MEDS: Aspirin E.C. 81 MG Tablet PO (08:32)
[2022-03-18 10:21] LABS: Differential Comment SCANNED
--- NOTE | 2022-03-18 10:24 | EKG12_ITS ---
Test Reason : CHANGE Blood Pressure : / mmHG Vent. Rate : 100 BPM Atrial Rate : 000 BPM P-R Int : 000 ms QRS Dur : 134 ms QT Int : 352 ms P-R-T Axes : 000 -16 183 degrees QTc Int : 454 ms Atrial fibrillation Non-specific intra-ventricular conduction block Inferior infarct (cited on or before 13-MAR-2022) Cannot rule out Anterior infarct (cited on or before 13-MAR-2022) Marked ST abnormality, possible anterior subendocardial injury Abnormal ECG When compared with ECG of 13-MAR-2022 05:21, Significant changes have occurred Confirmed by SAROJ SANCHEZ, UBALDO ([id number]), editorial manager CHINYERE FIELDS ([id number]) on 03/20/2022 8:36:14 AM Referred By: EVE Confirmed By:UBALDO KYLE MD
[2022-03-18 11:55] LABS: Bedside Glucose 291 mg/dL (74-106)
[2022-03-18] MEDS: Menthol/Lanolin/Calamine/Znox 113 GM Tube 1 APPLIC TOPICAL ×2 (13:29→21:12)
--- NOTE | 2022-03-18 14:03 | PN.HOSP_ITS ---
Subjective Subjective Patient seen and examined. HE had no active complaints. HE had an uneventful night. REview of systems is otherwise negative. Objective Data Objective Data Vital Signs: Vital Signs Temp Pulse Resp BP Pulse Ox O2 Del Method O2 Flow Rate 98.0 F 91 18 101/67 94 Nasal Cannula 2 03/18/22 09:24 03/18/22 09:24 03/18/22 09:24 03/18/22 09:24 03/18/22 10:43 03/18/22 10:43 03/18/22 10:43 FiO2 30 03/17/22 07:03 Oxygen Flow Rate (L/min) 2 Oxygen Delivery Method Nasal Cannula Weight: 173 lb 1.006 oz Body Mass Index (BMI) 26.9 Intake & Output: Intake and Output for Last 24 Hours 03/16/22 03/17/22 03/18/22 23:59 23:59 23:59 Intake Total 1160 / 1160 600 / 720 360 / 360 Output Total 0 / 0 2200 / 2200 0 / 0 Balance 1160 / 1160 -1600 / -1480 360 / 360 Lab / Micro Data Result Diagrams: 03/18/22 04:59 03/18/22 04:59 Labs: Laboratory Results - last 24 hr 03/15/22 07:16: Stool Pancreat Elastase 339 03/17/22 12:46: Sodium 133 L, Potassium 4.5, Chloride 101, Carbon Dioxide 25.0, Anion Gap 7, BUN 63 H, Creatinine 4.38 H, Estim Creat Clear Calc 13.20, Est GFR (MDRD) Af Amer 17 L, Est GFR (MDRD) Non-Af 14 L, BUN/Creatinine Ratio 14.4, Glucose 205 H, Calcium 8.5 03/17/22 16:15: POC Glucose 150 H 03/17/22 21:41: POC Glucose 289 H 03/18/22 04:59: WBC 9.3, RBC 2.58 L, Hgb 7.9 L, Hct 25.0 L, MCV 96.9 H, MCH 30.6 , MCHC 31.6 L D, RDW Std Deviation 59.9 H, RDW Coeff of Nguyen 17.7 H, Plt Count 128 L, MPV 10.9, Immature Gran % (Auto) 1.100 H, Neut % (Auto) 85.1 H, Lymph % (Auto) 4.9 L, [place] % (Auto) 8.5, Eos % (Auto) 0.2, Baso % (Auto) 0.2, Absolute Neuts (auto) 7.9 H, Absolute Lymphs (auto) 0.46 L, Nucleated RBC % 0.4, Differential Comment SCANNED 03/18/22 04:59: Sodium 133 L, Potassium 4.2, Chloride 99, Carbon Dioxide 26.0, Anion Gap 8, BUN 44 H, Creatinine 3.01 H, Estim Creat Clear Calc 19.22, Est GFR (MDRD) Af Amer 26 L, Est GFR (MDRD) Non-Af 22 L, BUN/Creatinine Ratio 14.6, Glucose 234 H, Calcium 8.7 03/18/22 07:33: POC Glucose 205 H 03/18/22 11:33: POC Glucose 291 H Micro: Microbiology 03/17/22 10:50 Stool Stool Lactoferrin - Final 03/17/22 05:45 Mucosa - Nasopharyngeal Respiratory Panel (PCR) - Final Rhinovirus 03/17/22 02:15 Nasal Secretion SARS-CoV-2 & FLU Antigen (Rapid) - Final 03/10/22 16:10 Stool Enteric Bacteriology - Final 03/10/22 16:10 Stool C. difficile DNA Amplification - Final 03/02/22 08:05 Blood Culture (Wb) - Neck Blood Culture - Final No growth in 5 days. 03/02/22 08:10 Blood Culture (Wb) - Right Forearm Blood Culture - Final No growth in 5 days. 03/04/22 09:40 Stool Stool Occult Blood (CANDIDA) - Final Occult Blood Positive 03/02/22 18:20 Stool C. difficile DNA Amplification - Final 03/01/22 21:30 Mucosa - Nasopharyngeal Respiratory Panel (PCR) - Final 03/01/22 22:00 Urine Catheter - Catheter Legionella Antigen - Final 03/01/22 22:00 Urine Catheter - Catheter Streptococcus pneumoniae Antigen (M - Final Rhythm Strip Rhythm Strip: Sinus Rhythm Rate: 82 Physical Exam Const alert, oriented x3 and no apparent distress General Appearance: cooperative, well kempt and well developed Orientation / Consciousness: awake, oriented to person, oriented to place and oriented to time HEENT normocephalic, head/scalp atraumatic, moist oral mucous membranes and oropharynx normal Head and Scalp: normocephalic Mouth: oral and palatal mucosa normal Eyes PERRL, EOMs intact bilaterally and conjunctivae normal Neck no lymphadenopathy, supple, no JVD, thyroid normal and no carotid bruits General: trachea midline Resp normal respiratory effort, no retractions, no use of accessory muscles and clear to auscultation bilaterally Resp Narrative: diminished breath sounds bibasally, no wheezes or crackles. Remains on 2L of oxygen by nasal canula Auscultation: Negative for rales, rhonchi or wheezes Cardio regular rate, regular rhythm, S1 normal heart sound, S2 normal heart sound, no murmurs, no rub and no gallops Cardio Narrative: grade 2/6 systolic murmur noted at the apex, right sternal border, and left sternal border. GI normal to inspection, nondistended, normoactive bowel sounds, soft to palpation, non-tender and non-distended Extremity Extremity Narrative: both LEs wrapped in bandage Skin Skin Narrative: bilateral LE wrapped in bandage Neuro oriented x3, CN's II-XII intact bilaterally, moves all extremities, no focal motor deficits and no sensory deficits noted Sensorium / Orientation: awake and alert Speech: speech normal Psych affect normal Assessment & Plan Assessment/Plan (1) Septic shock: (2) Acute on chronic systolic (congestive) heart failure: (3) Non-pressure chronic ulcer of other part of left foot with fat layer exposed: PLAN: Plan #Septic shock due to LE infected diabetic ulcers. * resolved. * now off pressors * ID on board * on PO ciprofloxacin and metronidazole * blood cultures are negative * #Diabetic foot ulcers * ID on board * wound cultures are polymicrobial * on IV vancomycin and PO ciprofloxacin as well as metronidazole, with stop date of 04/17/2022 * wound care on board * #Peripheral artery disease * s/p Aortogram, left lower extremity runoff, left popliteal angioplasty, left anterior tibial angioplasty * today is POD 5 * vascular surgery on board. * #Paroxysmal afib: on coumadin, held on admission. #DAVIS on CKD 3B: nephrology on board. Still undergoing dialysis. #CAD s/p CABG and stents: on aspirin and lipitor. #TYpe 2 diabetes mellitus * on NPH insulin 12 units qam and NPH 5 units qhs * ISS. Accuchecks ACHS * #HFrEF: not in exacerbation. Stable #ANemia due to GI bleed * on PPI * FOBT positive * GI on board; had EGD which showed grade 2 esophageal varices and oozing gastric ulcer with adherent clot which was treated with monopolar probe as well as gastric antral vascular ectasias without bleeding which was biopsied. Second portion of duodenum was normal. * Colonoscopy done yesterday showed hemorrhoids and a single ulcer in the rectum which was treated with heater probe; he also had diverticulosis in the rectosigmoid colon as well as a stricture in the sigmoid colon which was dilated. * PPI. * Per GI, coumadin can be resumed. Will resume coumadin today * DVT prophylaxis: SCDs; resume coumadin today. Monitor INR Disposition:now agreeable to placement. Awaiting placement Charges/Coding Visit Charges Inpatient E&M: 06609 [facility] Hosp L2
[2022-03-18 15:46] LABS: INR Fingerstick 1.4; Prothrombin Time Fingerstick 17.1 SEC (11.7-14.9)
[2022-03-18] MEDS: Creon 12,000 unit DR CapSULE 3 CAP PO (15:47)
[2022-03-18 16:11] LABS: Bedside Glucose 288 mg/dL (74-106)
--- NOTE | 2022-03-18 16:37 | PN.RENAL_ITS ---
Subjective Subjective no new events Objective Data Objective Data Vital Signs: Vital Signs Temp Pulse Resp BP Pulse Ox O2 Del Method O2 Flow Rate 97.7 F L 102 H 18 102/63 96 Nasal Cannula 2 03/18/22 15:24 03/18/22 15:24 03/18/22 15:24 03/18/22 15:24 03/18/22 15:24 03/18/22 15:24 03/18/22 15:24 FiO2 30 03/17/22 07:03 Oxygen Flow Rate (L/min) 2 Oxygen Delivery Method Nasal Cannula Weight: 78.5 kg Body Mass Index (BMI) 26.9 Intake & Output: Intake and Output for Last 24 Hours 03/16/22 03/17/22 03/18/22 23:59 23:59 23:59 Intake Total 1160 / 1160 600 / 720 360 / 360 Output Total 0 / 0 2200 / 2200 0 / 0 Balance 1160 / 1160 -1600 / -1480 360 / 360 Lab / Micro Data Result Diagrams: 03/18/22 04:59 03/18/22 04:59 Labs: Laboratory Results - last 24 hr 03/15/22 07:16: Stool Pancreat Elastase 339 03/17/22 16:15: POC Glucose 150 H 03/17/22 21:41: POC Glucose 289 H 03/18/22 04:59: WBC 9.3, RBC 2.58 L, Hgb 7.9 L, Hct 25.0 L, MCV 96.9 H, MCH 30.6, MCHC 31.6 L D, RDW Std Deviation 59.9 H, RDW Coeff of Nguyen 17.7 H, Plt Count 128 L, MPV 10.9, Immature Gran % (Auto) 1.100 H, Neut % (Auto) 85.1 H, Lymph % (Auto) 4.9 L, [place] % (Auto) 8.5, Eos % (Auto) 0.2, Baso % (Auto) 0.2, Absolute Neuts (auto) 7.9 H, Absolute Lymphs (auto) 0.46 L, Nucleated RBC % 0.4, Differential Comment SCANNED 03/18/22 04:59: Sodium 133 L, Potassium 4.2, Chloride 99, Carbon Dioxide 26.0, Anion Gap 8, BUN 44 H, Creatinine 3.01 H, Estim Creat Clear Calc 19.22, Est GFR (MDRD) Af Amer 26 L, Est GFR (MDRD) Non-Af 22 L, BUN/Creatinine Ratio 14.6, Gluc ose 234 H, Calcium 8.7 03/18/22 07:33: POC Glucose 205 H 03/18/22 11:33: POC Glucose 291 H 03/18/22 15:37: POC PT 17.1 H, INR 1.4 03/18/22 15:45: POC Glucose 288 H Micro: Microbiology 03/17/22 09:07 Sputum, Expectorated/Coughed Gram Stain - Final 03/17/22 10:50 Stool Stool Lactoferrin - Final 03/17/22 05:45 Mucosa - Nasopharyngeal Respiratory Panel (PCR) - Final Rhinovirus 03/17/22 02:15 Nasal Secretion SARS-CoV-2 & FLU Antigen (Rapid) - Final 03/10/22 16:10 Stool Enteric Bacteriology - Final 03/10/22 16:10 Stool C. difficile DNA Amplification - Final 03/02/22 08:05 Blood Culture (Wb) - Neck Blood Culture - Final No growth in 5 days. 03/02/22 08:10 Blood Culture (Wb) - Right Forearm Blood Culture - Final No growth in 5 days. 03/04/22 09:40 Stool Stool Occult Blood (CANDIDA) - Final Occult Blood Positive 03/02/22 18:20 Stool C. difficile DNA Amplification - Final 03/01/22 21:30 Mucosa - Nasopharyngeal Respiratory Panel (PCR) - Final 03/01/22 22:00 Urine Catheter - Catheter Legionella Antigen - Final 03/01/22 22:00 Urine Catheter - Catheter Streptococcus pneumoniae Antigen (M - Final Rhythm Strip Rhythm Strip: Sinus Rhythm Rate: 82 Physical Exam Narrative Alert and oriented x3, no apparent distress Lung sounds clear anteriorly, no wheezes, rhonchi or rales noted S1, S2, RRR Abdomen soft, nontender No significant lower extremity pitting edema. Edema to bilateral arms. Dressings clean dry and intact to bilateral feet Left internal jugular tunneled HD catheter dressing clean, dry and intact Assessment & Plan Assessment/Plan (1) Acute renal failure (ARF): QUALIFIERS: Acute renal failure type: unspecified Qualified Code(s): N17.9 - Acute kidney failure, unspecified (2) Chronic kidney disease, stage 3b: (3) Hypotension: (4) Anemia: (5) Ischemic cardiomyopathy: (6) Peripheral vascular disease, unspecified: PLAN: Plan - dialysis dependent DAVIS on CKD. Patient has been essentially anuric. -No noted renal recovery at this time. - Prior baseline serum creatinine had been around 1.50 mg/dL (01/23/2022). Suspect the patient has underlying diabetic kidney disease or nephrosclerosis related to PAD. - DAVIS is secondary to ischemic ATN from circulatory shock/sepsis. The patient was started on dialysis on 03/02/2022, serum creatinine 9.52 mg/dL. -We will continue to monitor for any renal recovery. -Hypotension thought to be related to sepsis. The patient also has ischemic cardiomyopathy, EF 35%. Continue midodrine 10 mg 3 times daily, bps improved. - GI consulted for anemia and diarrhea. Current hemoglobin 7.6, hemoglobin has ranged 7 to 8 g/dL this admission. Had colonoscopy yesterday with findings of hemorrhoids, single ulcer in rectum treated with heater probe. - Status post angiogram of the lower extremities per vascular.
[2022-03-18] MEDS: Jantoven 2 MG Tablet PO (17:18)
[2022-03-18] MEDS: Ciprofloxacin 500 MG Tablet PO (21:12)
[2022-03-18] MEDS: Atorvastatin Calcium 80 MG Tablet PO (21:13)
[2022-03-18] MEDS: Insulin NPH Human 100 UNITS/ML PEN SC (21:18)
[2022-03-18 22:50] LABS: Bedside Glucose 313 mg/dL (74-106)
[2022-03-19] VITALS (20 sets, daily range): BP systolic 91–113; BP diastolic 40–72; PULSE 78–127; RESP 16–24; TEMP 36.3–36.7; O2SAT 93–100
[2022-03-19] MEDS: metroNIDAZOLE 500 MG Tablet PO ×3 (05:11→23:42)
--- NOTE | 2022-03-19 05:18 | CPS ---
Pt declines use of bipap
[2022-03-19 06:48] LABS: Absolute Lymphocyte Count 0.42 X10^3/uL (0.83-4.51); Absolute Neutrophil Count 9.7 X10^3/uL (2.0-7.7); Basophil# 0.02 X10^3/uL; Basophil% 0.2 % (0-1); Eosinophil# 0.01 X10^3/uL; Eosinophils% 0.1 % (0-5); Hematocrit 25.1 % (40-54); Hemoglobin 7.8 g/dL (13.0-16.5); Lymphocyte # 0.42 X10^3/ul (0.83-4.51); Lymphocyte % 3.7 % (19-41); Mean Corp Hgb Conc 31.1 g/dL (32-36); Mean Corpuscular Hgb 31.2 pg (27.0-32.0); Mean Corpuscular Volume 100.4 fL (80-94); Mean Platelet Vol. 10.5 fl (6.2-12.0); Monocyte# 0.98 X10^3/uL; Monocyte% 8.7 % (0-10); NRBC Flagged by Analyzer 0.2 % (0-5); Neutrophil # 9.67 X10^3/uL (2.7-7.7); Neutrophil % 86.2 % (47-70); POSITIVE DIFFERENTIAL YES; Platelet Count 136 K/mm3 (150-450); RBC Distribution Width CV 18.1 % (11.6-14.6); RBC Distribution Width SD 63.7 fl (35.1-43.9); White Blood Count 11.2 K/mm3 (4.4-11.0)
[2022-03-19 07:21] LABS: Anion Gap 9 (5-15); BUN 71 mg/dL (7-18); BUN/Creat Ratio 17.4 RATIO (10-20); Calcium,Total 8.7 mg/dL (8.5-10.1); Chloride 98 mmol/L (98-107); Creatinine, Serum 4.08 mg/dL (0.70-1.30); EST Glomerular Filtration Rate 15 mL/min (>60); Est Glom Filt Rate - Afr Amer 18 mL/min (>60); Estimated Creatinine Clearance 14.18 ml/min; Glucose 280 mg/dL (74-106); Potassium 4.6 mmol/L (3.5-5.1); Sodium Level 133 mmol/L (136-145)
[2022-03-19 07:22] LABS: Differential Indicated SCAN CRITERIA MET
--- NOTE | 2022-03-19 08:02 | PN.RENAL_ITS ---
Documented by User: KATHRYN Luong 03/19/22 08:08 Subjective Subjective Resting in bed, no overnight events. Denies any complaints today. Objective Data Objective Data Vital Signs: Vital Signs Temp Pulse Resp BP Pulse Ox O2 Del Method O2 Flow Rate 97.3 F L 101 H 18 111/71 99 Nasal Cannula 2 03/19/22 03:20 03/19/22 03:20 03/19/22 03:20 03/19/22 03:20 03/19/22 03:20 03/19/22 04:18 03/19/22 04:18 FiO2 30 03/17/22 07:03 Oxygen Flow Rate (L/min) 2 Oxygen Delivery Method Nasal Cannula Weight: 80.6 kg Body Mass Index (BMI) 26.9 Intake & Output: Intake and Output for Last 24 Hours 03/17/22 03/18/22 03/19/22 23:59 23:59 23:59 Intake Total 600 / 720 840 / 940 220 / 220 Output Total 2200 / 2200 0 / 0 0 / 0 Balance -1600 / -1480 840 / 940 220 / 220 Lab / Micro Data Result Diagrams: 03/19/22 06:20 03/19/22 06:20 Labs: Laboratory Results - last 24 hr 03/18/22 04:59: Differential Comment SCANNED 03/18/22 07:33: POC Glucose 205 H 03/18/22 11:33: POC Glucose 291 H 03/18/22 15:37: POC PT 17.1 H, INR 1.4 03/18/22 15:45: POC Glucose 288 H 03/18/22 21:17: POC Glucose 313 H 03/19/22 06:20: WBC 11.2 H, RBC 2.50 L, Hgb 7.8 L, Hct 25.1 L, MCV 100.4 H, MCH 31.2, MCHC 31.1 L, RDW Std Deviation 63.7 H, RDW Coeff of Nguyen 18.1 H, Plt Count 136 L, MPV 10.5, Immature Gran % (Auto) 1.100 H, Neut % (Auto) 86.2 H, Lymph % (Auto) 3.7 L, [place] % (Auto) 8.7, Eos % (Auto) 0.1, Baso % (Auto) 0.2, Absolute Neuts (auto) 9.7 H, Absolute Lymphs (auto) 0.42 L, Nucleated RBC % 0.2 03/19/22 06:20: Sodium 133 L, Potassium 4.6, Chloride 98, Carbon Dioxide 26.0, Anion Gap 9, BUN 71 H, Creatinine 4.08 H, Estim Creat Clear Calc 14.18, Est GFR (MDRD) Af Amer 18 L, Est GFR (MDRD) Non-Af 15 L, BUN/Creatinine Ratio 17.4, Glucose 280 H, Calcium 8.7 03/19/22 06:20: Magnesium 2.0 Micro: Microbiology 03/17/22 09:07 Sputum, Expectorated/Coughed Gram Stain - Final 03/17/22 10:50 Stool Stool Lactoferrin - Final 03/17/22 05:45 Mucosa - Nasopharyngeal Respiratory Panel (PCR) - Final Rhinovirus 03/17/22 02:15 Nasal Secretion SARS-CoV-2 & FLU Antigen (Rapid) - Final 03/10/22 16:10 Stool Enteric Bacteriology - Final 03/10/22 16:10 Stool C. difficile DNA Amplification - Final 03/02/22 08:05 Blood Culture (Wb) - Neck Blood Culture - Final No growth in 5 days. 03/02/22 08:10 Blood Culture (Wb) - Right Forearm Blood Culture - Final No growth in 5 days. 03/04/22 09:40 Stool Stool Occult Blood (CANDIDA) - Final Occult Blood Positive 03/02/22 18:20 Stool C. difficile DNA Amplification - Final 03/01/22 21:30 Mucosa - Nasopharyngeal Respiratory Panel (PCR) - Final 03/01/22 22:00 Urine Catheter - Catheter Legionella Antigen - Final 03/01/22 22:00 Urine Catheter - Catheter Streptococcus pneumoniae Antigen (M - Final Rhythm Strip Rhythm Strip: Sinus Rhythm Rate: 82 Physical Exam Narrative Alert and oriented x3, no apparent distress Lung sounds audibly coarse, with coarse cough S1, S2, RRR Abdomen soft, nontender No significant lower extremity pitting edema. Edema to bilateral arms. Dressings clean dry and intact to bilateral feet Left internal jugular tunneled HD catheter dressing clean, dry and intact Assessment & Plan Assessment/Plan (1) Acute renal failure (ARF): QUALIFIERS: Acute renal failure type: unspecified Qualified Code(s): N17.9 - Acute kidney failure, unspecified (2) Chronic kidney disease, stage 3b: (3) Hypotension: (4) Anemia: (5) Ischemic cardiomyopathy: (6) Peripheral vascular disease, unspecified: PLAN: Plan - dialysis dependent DAVIS on CKD. Patient has been essentially anuric. In hospital patient has been on a Saturday dialysis schedule. -No noted renal recovery at this time. Last dialysis was 03/17, patient tolerated around 2 L UF. We will continue to remove fluid with dialysis as patient/blood pressure tolerates. He still has edema in his arms and last chest x-ray showed small bilateral pleural effusions. - Prior baseline serum creatinine had been around 1.50 mg/dL (01/23/2022). Suspect the patient has underlying diabetic kidney disease or nephrosclerosis related to PAD. - DAVIS is secondary to ischemic ATN from circulatory shock/sepsis. The patient was started on dialysis on 03/02/2022, serum creatinine 9.52 mg/dL. -We will continue to monitor for any renal recovery. -Hypotension thought to be related to sepsis. The patient also has ischemic cardiomyopathy, EF 35%. Continue midodrine 10 mg 3 times daily, bps improved. - GI consulted for anemia and diarrhea. Current hemoglobin 7.8, hemoglobin has ranged 7 to 8 g/dL this admission. Had colonoscopy with findings of hemorrhoids, single ulcer in rectum treated with heater probe. ?EGD which showed grade 2 esophageal varices and oozing gastric ulcer with adherent clot which was treated with monopolar probe as well as gastric antral vascular ectasias without bleeding which was biopsied.? Second portion of duodenum was normal. Started back on Coumadin. - Status post angiogram of the lower extremities per vascular. Documented by User: Dr. Annabella Mondragon MD 03/19/22 15:18 Objective Data Lab / Micro Data Result Diagrams: 03/19/22 06:20 03/19/22 06:20 Assessment & Plan Assessment/Plan (1) Acute renal failure (ARF): QUALIFIERS: Acute renal failure type: unspecified Qualified Code(s): N17.9 - Acute kidney failure, unspecified (2) Chronic kidney disease, stage 3b: (3) Hypotension: (4) Anemia: (5) Ischemic cardiomyopathy: (6) Peripheral vascular disease, unspecified: PLAN: Plan - dialysis dependent DAVIS on CKD. Patient has been essentially anuric. In hospital patient has been on a Saturday dialysis schedule. -No noted renal recovery at this time. Last dialysis was 03/17, patient tolerated around 2 L UF. We will continue to remove fluid with dialysis as patient/blood pressure tolerates. He still has edema in his arms and last chest x-ray showed small bilateral pleural effusions. - Prior baseline serum creatinine had been around 1.50 mg/dL (01/23/2022). Suspect the patient has underlying diabetic kidney disease or nephrosclerosis related to PAD. - DAVIS is secondary to ischemic ATN from circulatory shock/sepsis. The patient was started on dialysis on 03/02/2022, serum creatinine 9.52 mg/dL. -We will continue to monitor for any renal recovery. -Hypotension thought to be related to sepsis. The patient also has ischemic cardiomyopathy, EF 35%. Continue midodrine 10 mg 3 times daily, bps improved. - GI consulted for anemia and diarrhea. Current hemoglobin 7.8, hemoglobin has ranged 7 to 8 g/dL this admission. Had colonoscopy with findings of hemorrhoids, single ulcer in rectum treated with heater probe. ?EGD which showed grade 2 esophageal varices and oozing gastric ulcer with adherent clot which was treated with monopolar probe as well as gastric antral vascular ectasias without bleeding which was biopsied.? Second portion of duodenum was normal. Started back on Coumadin. - Status post angiogram of the lower extremities per vascular. Seen and examined independently. agree with above
[2022-03-19] MEDS: Pantoprazole Sodium 40 MG Tablet PO ×2 (10:06→23:42)
[2022-03-19] MEDS: Aspirin E.C. 81 MG Tablet PO (10:06)
[2022-03-19] MEDS: Midodrine HCl 5 MG Tablet 10 MG PO ×3 (10:06→17:27)
[2022-03-19] MEDS: Loperamide 2 MG Capsule PO ×2 (10:07→23:43)
[2022-03-19] MEDS: Clopidogrel Bisulfate 75 MG Tablet PO (10:07)
[2022-03-19] MEDS: Juven (unflavored) Packet 1 PACKET PO ×2 (10:07→17:22)
[2022-03-19] MEDS: Creon 12,000 unit DR CapSULE 3 CAP PO ×3 (10:08→17:21)
[2022-03-19] MEDS: Budesonide 3 MG CAPSULE.EC 9 MG PO (10:08)
--- NOTE | 2022-03-19 10:20 | NURSING ---
Dr. Maldonado was in room patient rude and saying will call the police if he has to leave today. Dr. Maldonado was trying to ask patient his concerns and discussing and reviewing poc with patient and but patient kept on interrupting and saying he is not leaving. The list of ecf was given to and patient on saturday for them to discuss which facility. They stated that they did not look at it at all. Dr. Maldonado did address all concerns. Patient called this nurse a spy was very gruff and rude with patient care. When this nurse entered room patients had leg dressing off placing lotion to intact skin and patient was yelling at his .
--- NOTE | 2022-03-19 11:03 | CASEMGMT ---
KALEB SIMPSON called Dina Dunn at [facility] to confirm HD schedule. Per Dina, treatment is scheduled for MWF at 1240 with arrival at 1220. KALEB SIMPSON updated Dina that plan is for patient to discharge to SNF. Anticipated first treatment at [facility] is for Saturday03/21/22. KALEB SIMPSON updated SW.
[2022-03-19] MEDS: Insulin Lispro 100 UNIT/ML INSULN.PEN SC ×3 (12:28→23:41)
[2022-03-19] MEDS: LORazepam 0.5 MG Tablet 0.25 MG PO (12:33)
[2022-03-19 12:50] LABS: Bedside Glucose 270 mg/dL (74-106)
--- NOTE | 2022-03-19 13:06 | CASEMGMT ---
SW went to patient's room as he is upset that he will be discharged tomorrow. Registration sent a copy of the Important Message from Medicare paper for patient. SW told patient and his that once the discharge is in the computer they can appeal it. However, they cannot appeal the discharge until it is in. SW explained patient will stay at the hospital until an answer is given. They decided they will do this. OSKAR asked if they have picked any facilities so SW can make referrals. They have not and patient's said they will look at the list and get back to OSKAR. Purvi Walker [employer]AF[employer] LEADER KEVIN
[2022-03-19] MEDS: Albuterol 2.5 MG/3 ML VIAL.NEB. INHALATION ×2 (13:16→19:34)
--- NOTE | 2022-03-19 14:21 | PCM.PN.ID ---
Physical Exam Narrative Feeling ok, frustrated with discharge planning. Diarrhea resolved. No fever. Const alert and no apparent distress Resp normal air movement and clear to auscultation bilaterally Cardio regular rate and regular rhythm GI soft to palpation, non-tender and non-distended Extremity General Extremity: edema Skin no rashes or lesions noted ID ID: Route of nutrition/ use of supplements: [] Nutritional Intake: [] IV Site: [] Laura Catheter: [] Assessment & Plan Assessment/Plan (1) Septic shock: PLAN: Due to BLE infected ulcers and gangrene. Recent wound cx with citro, proteus, morganella, serratia, GBS, enterococcus, and anaerobes. Had been on po doxy/cipro, but those are unreliable for GBS, enterococcus, and anaerobes. Podiatry following, amputation planned. Given severity of illness, put on zosyn. Cdiff neg. Now off pressors. Added probiotic, scheduled imodium, and 03/14 changed to iv vanc dosed with HD and po cipro/flagyl to see if this helps. Stop date 04/17/22 with weekly labs, wrote rx. ID followup in 4 weeks. Feeling better, diarrhea now resolved. Will follow (2) DAVIS (acute kidney injury): (3) Diabetic infection of right foot:
--- NOTE | 2022-03-19 14:41 | WOUNDNOTE ---
wound photo: left lower leg
--- NOTE | 2022-03-19 14:42 | WOUNDNOTE ---
wound photo: left lower leg
--- NOTE | 2022-03-19 14:43 | WOUNDNOTE ---
wound photo: left foot
--- NOTE | 2022-03-19 14:44 | WOUNDNOTE ---
wound photo: left lateral foot/heel
--- NOTE | 2022-03-19 14:44 | WOUNDNOTE ---
wound photo: right lower leg
--- NOTE | 2022-03-19 14:46 | WOUNDNOTE ---
wound photo: right lower leg
--- NOTE | 2022-03-19 14:46 | WOUNDNOTE ---
wound photo: right foot
--- NOTE | 2022-03-19 14:47 | WOUNDNOTE ---
wound photo: right lateral foot/heel
--- NOTE | 2022-03-19 14:55 | RAD_ITS ---
STUDY: X-RAY CHEST REASON FOR EXAM: Male, 77 years old. Hypoxia/sob TECHNIQUE: Single AP portable view of the chest. COMPARISON: Comparison is made with prior study dated 03/17/2022 FINDINGS: A left-sided double-lumen catheter is seen with the tip at the junction of the superior vena cava and left brachiocephalic vein. Stable blunting of both cosmetic angles with the increased markings at the lung bases suggestive of atelectasis. Stable mild degree of CHF. Sternal cerclage wires are present from a prior sternotomy. Normal mediastinum and sean. Normal visualized pulmonary arteries. Normal visualized aortic arch and descending thoracic aorta. There are diffuse degenerative changes of the visualized thoracic spine. There is degenerative osteoarthritis of the bilateral shoulders. There is no demonstrated abnormality of the visualized soft tissue structures of the upper abdomen. RAD/Chest 1 View (Portable) IMPRESSION: Stable examination. Electronically Signed: Akil Davis MD at 15:19 EST ,
[2022-03-19 16:08] LABS: Cytoplasmic Ab (C-ANCA) <1:20 titer (Neg:<1:20); Immunoglobulin A 284 mg/dL (61-437); Immunoglobulin E 235 IU/mL (6-495); Immunoglobulin G 1186 mg/dL (603-1613); Immunoglobulin M 76 mg/dL (15-143)
--- NOTE | 2022-03-19 16:25 | CASEMGMT ---
SW spoke with patient's earlier and she gave SW 3 choices for senior care: [place], [facility], and [place]. SW sent referrals to all 3 facilities via [facility]. Purvi BROWN
[2022-03-19] MEDS: Menthol/Lanolin/Calamine/Znox 113 GM Tube 1 APPLIC TOPICAL ×2 (17:20→23:43)
[2022-03-19] MEDS: Jantoven 2 MG Tablet PO (17:21)
[2022-03-19] MEDS: Acetaminophen 325 MG Tablet 650 MG PO (17:26)
[2022-03-19 17:31] LABS: Bedside Glucose 314 mg/dL (74-106)
--- NOTE | 2022-03-19 18:25 | DIALYSIS ---
left chest tunneled dialysis cath dressing changed. old blood under dressing. site cleansed. new dressing applied.
--- NOTE | 2022-03-19 18:47 | PN.HOSP_ITS ---
Subjective Subjective Evaluated this morning for the first time and discussed possible discharge planning for either later today or tomorrow. Patient got very upset and stated he would call the police on me because I was discharging him before he was ready to go. I explained that clinically everything had been addressed and explained that podiatry wanted to follow-up him weekly as an outpatient. That vascular surgery wanted to follow-up as an outpatient. That nephrology indicated it was okay to discharge with ongoing dialysis. That infectious disease was recommending ongoing antibiotics with oral Cipro and Flagyl through 04/17/2022 and that he needed ongoing physical and Occupational Therapy. He indicated he was having diarrhea however I tried to explain that his C. difficile was negative as was his enteric panel and that we are giving him Imodium. 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 He reported intermittent shortness of breath. He has not been hypoxic during these episodes and it appears that it is clear related to anxiety. His states that he has been quite anxious since this admission. He was not agreeable to the initiation of any antidepressant or antianxiety medication other than Ativan low-dose which we did try. He remains on some supplemental oxygen. He is refusing to wear BiPAP nocturnally. Objective Data Objective Data Vital Signs: Vital Signs Temp Pulse Resp BP Pulse Ox O2 Del Method O2 Flow Rate 97.9 F 100 16 98/67 100 Nasal Cannula 2 03/19/22 15:24 03/19/22 15:55 03/19/22 15:24 03/19/22 15:24 03/19/22 15:24 03/19/22 15:24 03/19/22 15:24 FiO2 30 03/17/22 07:03 Oxygen Flow Rate (L/min) 2 Oxygen Delivery Method Nasal Cannula Weight: 80.6 kg Body Mass Index (BMI) 26.9 Intake & Output: Intake and Output for Last 24 Hours 03/17/22 03/18/22 03/19/22 23:59 23:59 23:59 Intake Total 600 / 720 840 / 940 760 / 760 Output Total 2200 / 2200 0 / 0 0 / 0 Balance -1600 / -1480 840 / 940 760 / 760 Lab / Micro Data Result Diagrams: 03/19/22 06:20 03/19/22 06:20 Labs: Laboratory Results - last 24 hr 03/18/22 21:17: POC Glucose 313 H 03/19/22 06:20: WBC 11.2 H, RBC 2.50 L, Hgb 7.8 L, Hct 25.1 L, MCV 100.4 H, MCH 31.2, MCHC 31.1 L, RDW Std Deviation 63.7 H, RDW Coeff of Nguyen 18.1 H, Plt Count 136 L, MPV 10.5, Immature Gran % (Auto) 1.100 H, Neut % (Auto) 86.2 H, Lymph % (Auto) 3.7 L, [place]lette % (Auto) 8.7, Eos % (Auto) 0.1, Baso % (Auto) 0.2, Absolute Neuts (auto) 9.7 H, Absolute Lymphs (auto) 0.42 L, Nucleated RBC % 0.2, Differential Comment COMMENT 03/19/22 06:20: Sodium 133 L, Potassium 4.6, Chloride 98, Carbon Dioxide 26.0, Anion Gap 9, BUN 71 H, Creatinine 4.08 H, Estim Creat Clear Calc 14.18, Est GFR (MDRD) Af Amer 18 L, Est GFR (MDRD) Non-Af 15 L, BUN/Creatinine Ratio 17.4, Glucose 280 H, Calcium 8.7 03/19/22 06:20: Magnesium 2.0 03/19/22 12:22: POC Glucose 270 H 03/19/22 17:09: POC Glucose 314 H Micro: Microbiology 03/17/22 09:07 Sputum, Expectorated/Coughed Gram Stain - Final 03/17/22 09:07 Sputum, Expectorated/Coughed Respiratory Culture - Final Mixed normal respiratory marquis. No Streptococcus pneumoniae, beta-hemolytic Streptococcus or Staphylococcus aureus isolated. 03/17/22 10:50 Stool Stool Lactoferrin - Final 03/17/22 05:45 Mucosa - Nasopharyngeal Respiratory Panel (PCR) - Final Rhinovirus 03/17/22 02:15 Nasal Secretion SARS-CoV-2 & FLU Antigen (Rapid) - Final 03/10/22 16:10 Stool Enteric Bacteriology - Final 03/10/22 16:10 Stool C. difficile DNA Amplification - Final 03/02/22 08:05 Blood Culture (Wb) - Neck Blood Culture - Final No growth in 5 days. 03/02/22 08:10 Blood Culture (Wb) - Right Forearm Blood Culture - Final No growth in 5 days. 03/04/22 09:40 Stool Stool Occult Blood (CANDIDA) - Final Occult Blood Positive 03/02/22 18:20 Stool C. difficile DNA Amplification - Final 03/01/22 21:30 Mucosa - Nasopharyngeal Respiratory Panel (PCR) - Final 03/01/22 22:00 Urine Catheter - Catheter Legionella Antigen - Final 03/01/22 22:00 Urine Catheter - Catheter Streptococcus pneumoniae Antigen (M - Final Radiography Diagnostic Testing: Radiology Impression Chest X-Ray 03/19/22 14:55 IMPRESSION: Stable examination. Electronically Signed: Akil Davis MD at 15:19 EST , Rhythm Strip Rhythm Strip: Sinus Rhythm Rate: 82 Physical Exam Const alert and oriented x3 Constitutional Narrative: Extremely agitated, older white male sitting up in bed, at bedside, patient intermittently yelling at me and being rude to the nurse, currently nontoxic appearing, on supplemental oxygen at 2 L, appears chronically ill but no acute ill appearance, and nurse are at the bedside General Appearance: uncooperative HEENT head/scalp atraumatic, moist oral mucous membranes and oropharynx normal HEENT Narrative: Dentition is fair, Mallampati is 2-3, no thrush Resp normal respiratory effort, no retractions and no use of accessory muscles Resp Narrative: Currently on 2 L nasal cannula, few scattered rhonchi but seem to improve with cough Auscultation: Negative for crackles, rhonchi or wheezes Cardio regular rate, regular rhythm, S1 normal heart sound, S2 normal heart sound, no murmurs, no rub, no gallops and no clicks GI normal to inspection, nondistended, normoactive bowel sounds, soft to palpation and non-tender Extremity Extremity Narrative: Pedal pulses are 2+, trace bilateral edema, no cyanosis or clubbing Skin skin turgor normal, no jaundice, no petechiae and no mottling Skin Narrative: Tunneled dialysis catheter noted left chest with dressing in place, scattered ecchymosis Neuro oriented x3, moves all extremities and no focal motor deficits Neuro Narrative: Significant generalized weakness but no focal deficits Speech: speech normal Psych Psych Narrative: Truly agitated with intermittent yelling at both me and the nurse who is at the bedside Assessment & Plan Assessment/Plan (1) Diarrhea: (2) Septic shock: (3) PVD (peripheral vascular disease): (4) GI bleed: (5) Esophageal varices: (6) Hypoxia: (7) Chronic kidney disease, stage 3b: (8) Acute renal failure (ARF): QUALIFIERS: Acute renal failure type: unspecified Qualified C ode(s): N17.9 - Acute kidney failure, unspecified PLAN: Plan Septic shock secondary to lower extremity infected diabetic ulcers -Polymicrobial -Shock resolved and remains off pressors with stable blood pressures -Continue Cipro/Flagyl/IV Vanco with dialysis -Infectious disease has been following and recommends antibiotics through 04/17/2022 -Did have vascular intervention per peripheral arterial disease with recommendations for follow-up early next year as an outpatient Diabetic foot ulcers -As above -Podiatry follow-up as an outpatient for weekly checks after discharge -Wound care is following Peripheral arterial disease -Aortogram with lower extremity runoff performed as well as left popliteal angioplasty/left tibialis anterior angioplasty -Discussed case with Dr. Santo and plans to follow-up as an outpatient early next year for possible further intervention but no further intervention needed this hospitalization Chronic hypoxia -Patient is on oxygen at baseline -States he uses 5 L because it makes him feel better -Sats currently stable on 2 L nasal cannula -Suspect we would maybe be able to get the patient off supplemental oxygen however he refuses to come off -It sounds as patient is intermittently getting periodic anxiety attacks where he states he cannot breathe however oxygen saturations are stable at this time -I did address this with the patient and he is amenable to as needed low-dose Ativan to see if this does not help him -As needed aerosols -Chest x-ray shows stability DAVIS on CKD stage III -Patient now has tunneled dialysis catheter -Last dialysis 05/18/2021 and tolerated 2 L of UF -Continue HD/UF per nephrology recommendations -Continue midodrine as ordered -Baseline serum creatinine is 1.50 -Chest x-ray still with edema and bilateral pleural effusions and patient also does have some peripheral edema as well that nephrology plans to continue to remove fluid -Plan for dialysis at [facility] after discharge once schedule solidified GI bleed secondary to esophageal varices/oozing gastric ulcer/rectal ulcer -EGD and colonoscopy done on 03/15/2022 -Treated with monopolar probe -Biopsy performed and pending -Continue Protonix p.o. twice daily -Hemoglobin is stable -Anticoagulation restarted and hemoglobin remained stable at 7.8 this morning -Patient will need outpatient GI follow-up after discharge Diarrhea -Improving -Continue budesonide and pancreatic enzymes per GI recommendations -Continue Imodium -Probiotics added DM-2 -Hemoglobin A1c was well controlled at 6.5 on admission -Blood sugars elevated from baseline fasting this morning at greater than 200 -Increase Lantus from 10 to 20 units -Sinew sliding scale -Continue Accu-Cheks as ordered -Repeat BMP in a.m. PAF -Currently in normal sinus rhythm -Could then reason dated -INR remains subtherapeutic -Repeat INR in a.m. and would check frequently after discharge due to ongoing antibiotic use -Hemoglobin remained stable thus far CAD -Status post CABG 1997 and stents -Continue aspirin -Continue Lipitor HFrEF?ischemic cardiomyopathy -No acute exacerbation -Echocardiogram from 03/01/2022 shows an EF of 40%/stage III diastolic dysfunction/severe left atrial enlargement/moderate right atrial enlargement/pulmonary artery hypertension-moderate/moderate aortic stenosis -Lasix is on hold as patient is currently an uric secondary to DAVIS Aortic stenosis -We will need to continue to monitor after discharge with cardiology -Follows with Dr. 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
--- NOTE | 2022-03-19 19:00 | PCA ---
EMERGENCY DOCUMENTATION
--- NOTE | 2022-03-19 19:00 | NURSING ---
Emergency Documentation in effective
[2022-03-19 19:09] LABS: Perinuclear Ab (P-ANCA) 1:40 titer (Neg:<1:20)
[2022-03-19] MEDS: Insulin NPH Human 100 UNITS/ML PEN 10 UNITS SC (23:41)
[2022-03-19] MEDS: Ciprofloxacin 500 MG Tablet PO (23:42)
[2022-03-19] MEDS: Atorvastatin Calcium 80 MG Tablet PO (23:42)
[2022-03-19] MEDS: Heparin Injection (Vial) 5,000 UNIT/ML VIAL 5000 UNIT SC (23:43)
[2022-03-20] VITALS (13 sets, daily range): BP systolic 91–119; BP diastolic 56–77; PULSE 50–118; RESP 14–18; TEMP 36.2–36.9; O2SAT 94–100
[2022-03-20 00:10] LABS: Bedside Glucose 314 mg/dL (74-106)
--- NOTE | 2022-03-20 05:25 | RAD_ITS ---
STUDY: X-RAY CHEST REASON FOR EXAM: Male, 77 years old. Hypoxia and rhonchi TECHNIQUE: Single AP portable view of the chest. COMPARISON: Comparison is made with prior examination of 03/19/2022. FINDINGS: A left-sided double lumen catheter is seen with the tip at the junction of the superior vena cava and left brachiocephalic vein. A left-sided unipolar pacemaker is seen. Stable examination with blunting of both costal phrenic angle is an increased markings at the left lung base. Mild degree of vascular congestion. Sternal cerclage wires and vascular clips are present from a prior sternotomy and coronary artery bypass graft procedure (CABG). Cardiomegaly. Normal mediastinum and sean. Normal visualized pulmonary arteries. There is atherosclerotic calcification of the aortic arch with tortuosity. There are degenerative changes of the visualized thoracic spine. Normal visualized ribs, clavicles, and shoulders. There is no demonstrated abnormality of the visualized soft tissue structures of the upper abdomen. RAD/Chest 1 View (Portable) IMPRESSION: Stable examination. Electronically Signed: Akil Davis MD at 14:44 EST ,
[2022-03-20 06:36] LABS: International Normalized Ratio 1.5; Prothrombin Time (Protime)PT. 17.5 SECONDS (11.7-14.9)
[2022-03-20 06:44] LABS: Anion Gap 9 (5-15); BUN 99 mg/dL (7-18); BUN/Creat Ratio 19.9 RATIO (10-20); Chloride 97 mmol/L (98-107); Creatinine, Serum 4.98 mg/dL (0.70-1.30); EST Glomerular Filtration Rate 12 mL/min (>60); Est Glom Filt Rate - Afr Amer 15 mL/min (>60); Estimated Creatinine Clearance 11.61 ml/min; Glucose 300 mg/dL (74-106); Potassium 5.1 mmol/L (3.5-5.1); Sodium Level 130 mmol/L (136-145)
[2022-03-20 06:56] LABS: Vancomycin, Random Level 20.2 ug/mL (0.0-15.0)
[2022-03-20] MEDS: metroNIDAZOLE 500 MG Tablet PO ×3 (06:57→21:36)
[2022-03-20] MEDS: Heparin Injection (Vial) 5,000 UNIT/ML VIAL 5000 UNIT SC ×3 (06:57→21:46)
[2022-03-20] MEDS: Menthol/Lanolin/Calamine/Znox 113 GM Tube 1 APPLIC TOPICAL ×2 (06:57→21:33)
--- NOTE | 2022-03-20 07:59 | PCM.RX.CS ---
Consult Pharmacy has been consulted to manage selected antiobiotic: Vancomycin Type of Consult: Follow-up Labs: Sodium 130 mmol/L (136-145) L 03/20/22 06:00 Potassium 5.1 mmol/L (3.5-5.1) 03/20/22 06:00 Chloride 97 mmol/L (98-107) L 03/20/22 06:00 Carbon Dioxide 24.0 mmol/L (21.0-32.0) 03/20/22 06:00 Anion Gap 9 (5-15) 03/20/22 06:00 BUN 99 mg/dL (7-18) H 03/20/22 06:00 Creatinine 4.98 mg/dL (0.70-1.30) H 03/20/22 06:00 Est GFR (MDRD) Af Amer 15 mL/min (>60) L 03/20/22 06:00 Est GFR (MDRD) Non-Af 12 mL/min (>60) L 03/20/22 06:00 BUN/Creatinine Ratio 19.9 RATIO (10-20) 03/20/22 06:00 Glucose 300 mg/dL (74-106) H 03/20/22 06:00 Random Vancomycin 20.2 ug/mL (0.0-15.0) H 03/20/22 06:00 Microbiology: Microbiology 03/17/22 09:07 Sputum, Expectorated/Coughed Gram Stain - Final 03/17/22 09:07 Sputum, Expectorated/Coughed Respiratory Culture - Final Mixed normal respiratory marquis. No Streptococcus pneumoniae, beta-hemolytic Streptococcus or Staphylococcus aureus isolated. 03/17/22 10:50 Stool Stool Lactoferrin - Final 03/17/22 05:45 Mucosa - Nasopharyngeal Respiratory Panel (PCR) - Final Rhinovirus 03/17/22 02:15 Nasal Secretion SARS-CoV-2 & FLU Antigen (Rapid) - Final 03/10/22 16:10 Stool Enteric Bacteriology - Final 03/10/22 16:10 Stool C. difficile DNA Amplification - Final 03/02/22 08:05 Blood Culture (Wb) - Neck Blood Culture - Final No growth in 5 days. 03/02/22 08:10 Blood Culture (Wb) - Right Forearm Blood Culture - Final No growth in 5 days. 03/04/22 09:40 Stool Stool Occult Blood (CANDIDA) - Final Occult Blood Positive 03/02/22 18:20 Stool C. difficile DNA Amplification - Final 03/01/22 21:30 Mucosa - Nasopharyngeal Respiratory Panel (PCR) - Final 03/01/22 22:00 Urine Catheter - Catheter Legionella Antigen - Final 03/01/22 22:00 Urine Catheter - Catheter Streptococcus pneumoniae Antigen (M - Final Goal Trough: 15-20 mcg/mL Pharmacy Plan for Drug Dosing: VANCOMYCIN LEVEL RECEIVED Current Vancomycin Dose: DOSING PER PRE-HD LEVELS Number of Doses Received: 2. LAST DOSE WAS 03/15/22 Vancomycin Level: 20.2 Hours Since Last Dose: N/A Renal Function: HD DEPENDENT. SCHEDULE // Renal Function Trend: N/A Vancomycin Plan/Comments: Patient with pre-HD level this morning of 20.2 (goal <20). Will hold off on dosing after HD today. Patient will likely need an additional dose with his next treatment on 03/22. Pending Level: *RANDOM* pre-HD level 03/22/22 with AM labs Pharmacy Service will continue to monitor and adjust dosing as required.
[2022-03-20 08:16] LABS: Absolute Lymphocyte Count 0.36 X10^3/uL (0.83-4.51); Absolute Neutrophil Count 9.7 X10^3/uL (2.0-7.7); Basophil# 0.01 X10^3/uL; Basophil% 0.1 % (0-1); Eosinophil# 0.01 X10^3/uL; Eosinophils% 0.1 % (0-5); Hematocrit 25.8 % (40-54); Hemoglobin 8.3 g/dL (13.0-16.5); Lymphocyte # 0.36 X10^3/ul (0.83-4.51); Lymphocyte % 3.3 % (19-41); Mean Corp Hgb Conc 32.2 g/dL (32-36); Mean Corpuscular Hgb 31.2 pg (27.0-32.0); Mean Platelet Vol. 11.6 fl (6.2-12.0); Monocyte# 0.81 X10^3/uL; Monocyte% 7.4 % (0-10); NRBC Flagged by Analyzer 0.4 % (0-5); Neutrophil # 9.66 X10^3/uL (2.7-7.7); Neutrophil % 88.1 % (47-70); POSITIVE DIFFERENTIAL YES; Platelet Count 169 K/mm3 (150-450); RBC Distribution Width CV 18.6 % (11.6-14.6); Red Blood Count 2.66 M/mm3 (4.6-6.2)
[2022-03-20] MEDS: Insulin NPH Human 100 UNITS/ML PEN 12 UNITS SC (08:21)
[2022-03-20] MEDS: Insulin Lispro 100 UNIT/ML INSULN.PEN SC ×2 (08:22→21:36)
--- NOTE | 2022-03-20 08:54 | CASEMGMT ---
[facility] has accepted patient. SW is still waiting on [facility] [address] said no as they have no beds available. Purvi Walker [employer] KEVIN
[2022-03-20 09:01] LABS: Differential Indicated SCAN CRITERIA MET
[2022-03-20 09:25] LABS: Bedside Glucose 272 mg/dL (74-106)
--- NOTE | 2022-03-20 11:15 | NURSING ---
Pts refusing am meds and 1100 bs check, states I don't want him woke up. educated on the importance of meds and checking bs and stated if he wakes up in a little bit they can be given, otherwise she doesn't want him to have them.
--- NOTE | 2022-03-20 11:22 | PCM.DC.SUM ---
Providers Date of Admission: 03/01/22 Date of Discharge: 03/20/22 Primary Care Physician: Dr. Pedro Luis Shin MD Consultations 03/01/22 20:05 Consult: Infectious Disease Routine Consulting Provider: Yoel Arevalo Reason for Consult: BL LE diabetic foot wounds, request per Podiatry. EMERGENT Consult: No MD Notified: Yes Date Notified: 03/02/22 Time Notified: 08:02 Method of Notification: Text Consult: Communications Senior Associate / Pulmonary Medicine Routine Consulting Provider: Get Garner Reason for Consult: DAVIS, hyperkalemia, hypotensive, BL diabetic foot wound EMERGENT Consult: No MD Notified: Yes Date Notified: 03/01/22 Time Notified: 15:35 Method of Notification: Text Consult: Nephrology Routine Consulting Provider: Angus Pradhan Reason for Consult: DAVIS, hyperkalemia EMERGENT Consult: No MD Notified: Yes Date Notified: 03/01/22 Time Notified: 15:33 Method of Notification: called Consult: Onc/Wound/environmental change analyst Routine Comment: Reason for Consult:: BL diabetic foot wounds Consult: Podiatry Routine Consulting Provider: Jai Fan Reason for Consult: BL LE diabetic foot wounds EMERGENT Consult: No MD Notified: Yes Date Notified: 03/01/22 Time Notified: 15:33 Method of Notification: called Consult: Vascular Surgery Routine Consulting Provider: Mando Santo Reason for Consult: BL LE diabetic wounds, request per Podiatry EMERGENT Consult: No MD Notified: Yes Date Notified: 03/01/22 Time Notified: 17:08 Method of Notification: Text 03/08/22 07:39 Consult: General Surgery Routine Consulting Provider: Tono Higginbotham Reason for Consult: Tunneled dialysis line placement EMERGENT Consult: No MD Notified: Yes Date Notified: 03/08/22 Time Notified: 09:20 Method of Notification: Text 03/13/22 16:04 Consult: Gastroenterology Routine Consulting Provider: [facility] Reason for Consult: anemia, positive stool occult blood EMERGENT Consult: No MD Notified: Yes Date Notified: 03/13/22 Time Notified: 16:04 Method of Notification: Text 03/14/22 11:51 Consult: Gastroenterology Routine Consulting Provider: [facility] Reason for Consult: acute on chronic anemia, positive stool occult blood EMERGENT Consult: No Notified: Yes Date Notified: 03/14/22 Time Notified: 11:52 Method of Notification: Text Reason For Visit: DAVIS, HYPERKALEMIA Diagnosis Discharge Diagnosis (1) Diarrhea: Status: Acute Code(s): R19.7 - Diarrhea, unspecified (2) Septic shock: Status: Acute Code(s): A41.9 - Sepsis, unspecified organism; R65.21 - Severe sepsis with septic shock (3) PVD (peripheral vascular disease): Status: Acute Code(s): I73.9 - Peripheral vascular disease, unspecified (4) GI bleed: Status: Acute Code(s): K92.2 - Gastrointestinal hemorrhage, unspecified (5) Esophageal varices: Status: Acute Code(s): I85.00 - Esophageal varices without bleeding (6) Hypoxia: Status: Acute Code(s): R09.02 - Hypoxemia (7) Chronic kidney disease, stage 3b: Status: Chronic Code(s): N18.32 - Chronic kidney disease, stage 3b (8) Acute renal failure (ARF): Status: Acute Code(s): N17.9 - Acute kidney failure, unspecified Qualifiers: Acute renal failure type: unspecified Qualified Code(s): N17.9 - Acute kidney failure, unspecified Medications at Discharge Home Medications Handicap Placard #1 ea 08/28/19 atorvastatin 80 mg tablet 80 mg PO QHS #90 tabs 05/23/21 Novolin N Flexpen 5 units QHS diabetes 11/03/21 Novolin N Flexpen 12 units DAILY daily 11/03/21 warfarin 2 mg tablet (Jantoven) 2 mg PO DINNER #0 tabs 11/06/21 ascorbic acid (vitamin C) 500 mg tablet 500 mg PO DAILY 01/01/22 cholecalciferol (vitamin D3) 25 mcg (1,000 unit) capsule 25 mcg PO DAILY 01/01/22 ciprofloxacin HCl 500 mg tablet 500 mg PO QPM 28 days #28 tabs 03/14/22 metronidazole 500 mg tablet 500 mg PO TID 28 days #84 tabs 03/14/22 vancomycin 1,000 mg intravenous injection 1 g IV .see below 28 days #12 ea 03/14/22 acetaminophen 325 mg tablet (Tylenol) 650 mg PO Q4H PRN PRN Fever, pain 1-01/08 #0 tabs 03/20/22 acidophilus 25 million cell-pectin, citrus 100 mg tablet 1 tab PO BID #0 tabs 03/20/22 albuterol sulfate 2.5 mg/3 mL (0.083 %) solution for nebulization 2.5 mg (3 mL) inhalation Q2H PRN PRN Dyspnea, wheezing #0 mL 03/20/22 aluminum-mag hydroxide-simethicone 400 mg-400 mg-40 mg/5 mL oral susp (Mag-Al Plus Extra Strength) 30 ml PO Q6H PRN PRN Gastric Burning #0 mL 03/20/22 arginine 7 gram-glutam 7 gram-CaHMB 1.5 lofo-tmgsc-pf-min oral pwd pkt (Levy (with collagen)) 1 packet PO BIDCM #0 ea 03/20/22 clopidogrel 75 mg tablet 75 mg PO DAILY #30 tabs 03/20/22 insulin lispro 100 unit/mL subcutaneous pen (Humalog KwikPen (U-100) Insulin) See Protocol subcut ACHS #0 mL 03/20/22 fnmgtr-jujeoprw-wpjkelr 12,000-38,000-60,000 unit capsule,delayed rel (Creon) 3 cap PO TIDCM #0 caps 03/20/22 loperamide 2 mg capsule 2 mg PO Q12 #0 caps 03/20/22 loperamide 2 mg capsule 2 mg PO Q2H PRN PRN Diarrhea #0 caps 03/20/22 melatonin 3 mg tablet 3 mg PO QHS PRN PRN Insomnia #0 tabs 03/20/22 menthol 0.44 %-zinc oxide 20.6 % topical ointment (Calmoseptine) 1 applic topical TID #0 grams 03/20/22 midodrine 5 mg tablet 10 mg PO TIDCM #0 tabs 03/20/22 pantoprazole 40 mg tablet,delayed release 40 mg PO BID #0 tabs 03/20/22 sodium chloride 0.65 % nasal spray aerosol (Deep Sea Nasal) 2 spray NASAL BID PRN PRN NASAL DRYNESS #44 mL 03/20/22 Hospital Course Operations - (Aortogram with left lower extremity runoff and a left popliteal angioplasty/left anterior tibial angioplasty) Procedures 2-D Echocardiogram, Colonoscopy, EGD and - (Tunneled dialysis catheter placement) Summary of Care Provided Minutes Spent on Discharge: 48 Hospital Course: Mr. Brandt is a 77-year-old white male who presented to the emergency department at [facility] on 03/01/2022 with shortness of breath, orthopnea, and lower extremity edema. He was found to be hypotensive in the emergency department and had been being followed by podiatry in the wound clinic due to history of peripheral vascular disease with lower extremity diabetic associated lower extremity ulcers. Upon presentation emergency department he was noted to have a temperature of 96.2 and found to be mildly tachycardic and tachypneic. Oxygen saturations were stable on room air. His initial CBC showed no evidence of leukocytosis. His initial INR was 3.9 and the patient was on chronic anticoagulation with Coumadin for paroxysmal atrial fibrillation. His chemistry panel was notable for a sodium of 131, potassium 6.7, bicarb of 16, BUN of 156 and a serum creatinine of 9.65. His initial troponin was 79 with a BNP of 549. Urinalysis was performed and was unrevealing. His chest x-ray was closely clear with blunting of the costophrenic angles. A renal ultrasound was performed and showed no evidence of obstruction. In the emergency department he received supplemental fluids however remained hypotensive and a left triple-lumen central venous catheter was placed and the patient was initiated on vasopressors. Cultures were obtained and an broad-spectrum antibiotics were initiated. He was admitted to the medical intensive care unit for further management. Consultations to critical care medicine and nephrology were placed. He was unfortunately not responsive to IV fluids and a temporary dialysis catheter was placed on 03/02/2022 and hemodialysis was initiated by the mesh worker. Patient had known underlying CKD stage IIIb however he had worsening DAVIS likely from prerenal azotemia secondary to circulatory shock that was exacerbated by ongoing home diuretic and ARB use prior to admission. Unfortunately, his renal function did not improve during his hospitalization he required ongoing hemodialysis up until the time of discharge and a tunneled dialysis catheter was placed by general surgery on 03/09/2022. He was tolerating dialysis well however he did suffer from some hypotension with dialysis during his stay and was started on midodrine which achieve desired result of stabilizing his blood pressures. An echocardiogram was obtained and showed mild to moderate global left ventricular systolic dysfunction with an EF of 40% which is stable compared to previous, stage III diastolic dysfunction, severely enlarged left atrium, moderately enlarged right atrium, moderate mitral valve insufficiency, mild tricuspid valve insufficiency with moderate pulmonary hypertension and moderate aortic stenosis. Infectious disease was consulted on the second as well and felt that his septic shock was related to bilateral lower extremity infected ulcers. It was noted he had recent wound cultures that had polymicrobial infections with citro, proteus, morganella, serratia, GBS, enterococcus, and anaerobes and he was maintained on empiric vancomycin and Zosyn which was renally dosed at that time. Arterial studies were also done on the day of admission and showed severe arterial insufficiency of the right lower extremity and moderate arterial insufficiency of the left lower extremity therefore vascular surgery was consulted. He was finally able to be off pressors on 03/04/2022 and it was elected by vascular surgery after discussion with podiatry and nephrology to proceed with a lower extremity aortogram with left lower extremity runoff and left popliteal angioplasty as well as a left anterior tibial angioplasty which was done on 03/13/2022. 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 Vascular surgery's plan is to proceed with another procedure in a few weeks to reassess the improvements made with the most recent intervention and to possibly attempt additional intervention to optimize blood flow prior to podiatry performing any further surgical intervention to promote the best healing opportunity possible. It was noted with time that his hemoglobin slowly trickle down and gastroenterology was consulted. A CT scan was reviewed from earlier this year which noted steatosis of the liver with cholelithiasis but no cholecystitis and no signs of portal vein hypertension or thrombosis or enlarged spleen. With his anemia it was felt to be prudent to follow-up with an EGD and a colonoscopy with possible capsule endoscopy as an outpatient in the future. He was also having diarrhea at that time and was started on budesonide as well as pancreatic enzymes with his history of alcoholism and probiotics. His diarrhea was improving dramatically by the time of discharge and he was having some loose stool but not any exorbitantly voluminous diarrhea at that time. C. difficile and enteric panel were negative for any acute infections. EGD and colonoscopy were performed on 03/15/2022. EGD showed grade 2 esophageal varices, oozing gastric ulcer with adherent clot that was treated with monopolar probe as well as gastric antral vascular ectasia without bleeding and a normal second portion of the duodenum. Biopsies were taken and a repeat endoscopy was recommended in 3 months. He was maintained on PPI. His colonoscopy showed hemorrhoids, a single solitary ulcer in the rectum that was treated with heater probe, diverticulosis in the rectosigmoid colon, sigmoid colon, descending colon and a stricture in the sigmoid colon that was dilated. He had congested mucosa at the rectum and sigmoid colon as well as the descending and splenic flexure that was biopsied. Biopsy showed mild to moderate gastritis at the pyloric sphincter and fragments of colonic mucosa with no prolapse for logical diagnosis and biopsies were negative for H. pylori. Following the procedure his hemoglobin stabilized and he was able to be reinitiated on anticoagulation with Coumadin and Plavix for peripheral vascular disease. We did discontinue his aspirin to avoid triple therapy and increased risk of future bleeding. Per infectious disease they recommended continue antibiotics with Cipro and Flagyl as well as IV vancomycin dosed with his hemodialysis. They also added a probiotic and scheduled Imodium for his diarrhea and felt that this was most likely related to his ongoing antibiotic therapy which will be continued through 04/17/2022. Infectious disease plans on following up with the patient in 4 weeks. The plan going forward with regards to his lower extremity wounds is to reevaluate with vascular early in April and then Dr. Fan will follow-up from podiatry to arrange operative intervention after vascular surgery has completed revascularization. In the meantime he will be maintained on Plavix and Coumadin. Dr. Fan plans on following at the patient weekly to keep an eye on the wounds until he can perform more definitive management. He will remain on antibiotics as noted above through 04/17/2022 and have follow-up with ID in 4 weeks. He will remain on hemodialysis and follow with nephrology and the dialysis center. Patient did have some intermittent anxiety related shortness of breath during his hospital course at which time his oxygenation remained stable. The patient demanded to be on oxygen during his hospital course however it does not appear that he needs chronic O2 supplementation. We discussed the possibility of initiating an antidepressant and the patient was very resistant to this. We also discussed the utilization of Ativan and we did give this a trial however the patient felt that 0.25 Ativan was too strong and made him too sedated so we discontinued this prior to discharge. He was deemed stable for discharge on 03/19/2022 and we did identify skilled facilities for discharge as he was evaluated by physical and Occupational Therapy and followed throughout his hospital course. They recommended ongoing therapy as the patient is to remain nonweightbearing on his lower extremities until definitive treatment can be established and he has marked weakness. He was excepted by [facility] on 03/20/2022 and the patient was discharged in stable condition. The patient was dissatisfied with the timing of his discharge and indicated that he would appeal his discharge with Medicare. Outpatient follow-up with specialist as noted above. The patient will need follow-up with his primary care physician within the next month and will be seen by the care home facility physician while living there. I would recommend a follow-up CBC in 3 days to reassess his hemoglobin with ongoing anticoagulation and previous GI bleed as well as daily INR. INR on the day of discharge was 1.5 and trending up. Also need a BMP in 1 week. Discharge diagnoses: Septic shock secondary to lower extremity infected diabetic ulcers Multiple bilateral lower extremity diabetic ulcers/gangrene Peripheral arterial disease Chronic hypoxia DAVIS on CKD stage IIIb GI bleed secondary to esophageal varices/oozing gastric ulcer/rectal ulcer Diarrhea-improved DM-2 PAF CAD HFrEF/ischemic cardiomyopathy Aortic stenosis Hypertension Physical Exam Const alert, oriented x3 and no apparent distress Constitutional Narrative: older white male sitting up in bed, at bedside, patient is currently on hemodialysis with dialysis nurse at bedside, charge nurse also in the room, patient currently appears comfortable General Appearance: cooperative, comfortable, well kempt, well developed and uncooperative Orientation / Consciousness: awake, oriented to person, oriented to place and oriented to time Exam Limitations: no limitations Nutritional Appearance: overweight HEENT normocephalic, head/scalp atraumatic, moist oral mucous membranes and oropharynx normal HEENT Narrative: Mild hearing loss, dentures in place, no thrush, Mallampati 2 Eyes PERRL, EOMs intact bilaterally and conjunctivae normal Neck no lymphadenopathy, supple and thyroid normal General: trachea midline Resp normal respiratory effort, no retractions, no use of accessory muscles and clear to auscultation bilaterally Resp Narrative: Currently on 3 L nasal cannula, diminished at bases bilaterally with few crackles Auscultation: Negative for crackles, rales, rhonchi or wheezes Cardio regular rate, regular rhythm, S1 normal heart sound, S2 normal heart sound, no murmurs, no rub, no gallops and no clicks Cardio Narrative: grade 2/6 systolic murmur noted at the apex, right sternal border, and left sternal border GI normal to inspection, nondistended, normoactive bowel sounds, soft to palpation, non-tender and non-distended Extremity Extremity Narrative: Trace to 1+ bilateral lower extremity edema, 2+ radial, no cyanosis or clubbing, cap refill 2+ bilateral lower extremities Skin No no rashes or lesions noted, No no wounds, skin turgor normal, no jaundice, no petechiae and no mottling Skin Narrative: Tunneled dialysis catheter noted left chest with dressing in place, scattered ecchymosis, bilateral lower extremity dressings in place images reviewed Neuro oriented x3, CN's II-XII intact bilaterally, moves all extremities and no focal motor deficits Neuro Narrative: Significant generalized weakness but no focal deficits Sensorium / Orientation: awake and alert Speech: speech normal Psych Psych Narrative: Remains irritated but less aggressive today Weight / BMI Weight Weight: 78 kg Body Mass Index (BMI) 26.9 ABG / Lab / Microbiology Data Result Diagrams: 03/20/22 07:20 03/20/22 06:00 Laboratory: Laboratory Results - last 24 hr 03/15/22 05:45: IgG 1186, IgA 284, IgM 76, IgE 235, c-ANCA Antibody <1:20, Atypical p-ANCA <1:20, p-ANCA Antibody 1:40 H 03/19/22 12:22: POC Glucose 270 H 03/19/22 17:09: POC Glucose 314 H 03/19/22 23:39: POC Glucose 314 H 03/20/22 06:00: WBC Cancelled, Corrected WBC Cancelled, RBC Cancelled, Hgb Cancelled, Hct Cancelled, MCV Cancelled, MCH Cancelled, MCHC Cancelled, RDW Std Deviation Cancelled, RDW Coeff of Nguyen Cancelled, Plt Count Cancelled, MPV Cancelled, Immature Gran % (Auto) Cancelled, Neut % (Auto) Cancelled, Lymph % (Auto) Cancelled, [place] % (Auto) Cancelled, Eos % (Auto) Cancelled, Baso % (Auto) Cancelled, Absolute Neuts (auto) Cancelled, Absolute Lymphs (auto) Cancelled, Total Counted Cancelled, Neutrophils % (Manual) Cancelled, Band Neutrophils % Cancelled, Lymphocytes % (Manual) Cancelled, Monocytes % (Manual) Cancelled, Eosinophils % (Manual) Cancelled, Basophils % (Manual) Cancelled, Metamyelocytes % Cancelled, Myelocytes % Cancelled, Promyelocytes % Cancelled, Blast Cells % Cancelled, Plasma Cell % (Manual) Cancelled, Other Cells % Cancelled, Nucleated RBC % Cancelled, Nucleated RBCs/100 WBC Cancelled, Differential Comment Cancelled, Diff Path Review Cancelled, Hypersegmented Neuts Cancelled, Atypical Lymphocytes Cancelled, Reactive Lymphocytes Cancelled, Smudge Cells Cancelled, Toxic Granulation Cancelled, Toxic Vacuolation Cancelled, Dohle Bodies Cancelled, Celestine Rods Cancelled, Platelet Estimate Cancelled, Plt Morphology Comment Cancelled, RBC Morphology Cancelled, Polychromasia Cancelled, Hypochromasia Cancelled, Poikilocytosis Cancelled, Basophilic Stippling Cancelled, Anisocytosis Cancelled, Microcytosis Cancelled, Macrocytosis Cancelled, Spherocytes Cancelled, Sickle Cells Cancelled, Target Cells Cancelled, Tear Drop Cells Cancelled, Ovalocytes Cancelled, Stomatocytes Cancelled, Ferguson-Huetter Bodies Cancelled, [place] Cells Cancelled, Bite Cells Cancelled, Crenated Cell Cancelled, Acanthocytes (Spur) Cancelled, Rouleaux Cancelled, Schistocytes Cancelled 03/20/22 06:00: Sodium 130 L, Potassium 5.1, Chloride 97 L, Carbon Dioxide 24.0, Anion Gap 9, BUN 99 H, Creatinine 4.98 H, Estim Creat Clear Calc 11.61, Est GFR (MDRD) Af Amer 15 L, Est GFR (MDRD) Non-Af 12 L, BUN/Creatinine Ratio 19.9, Glucose 300 H, Calcium 9.0 03/20/22 06:00: Random Vancomycin 20.2 H 03/20/22 06:00: PT 17.5 H, INR 1.5 03/20/22 07:20: WBC 11.0, RBC 2.66 L, Hgb 8.3 L, Hct 25.8 L, MCV 97.0 H, MCH 31.2, MCHC 32.2, RDW Std Deviation 64.0 H, RDW Coeff of Nguyen 18.6 H, Plt Count 169, MPV 11.6, Immature Gran % (Auto) 1.000 H, Neut % (Auto) 88.1 H, Lymph % (Auto) 3.3 L, [place] % (Auto) 7.4, Eos % (Auto) 0.1, Baso % (Auto) 0.1, Absolute Neuts (auto) 9.7 H, Absolute Lymphs (auto) 0.36 L, Nucleated RBC % 0.4 03/20/22 08:20: POC Glucose 272 H Microbiology: Microbiology 03/17/22 09:07 Sputum, Expectorated/Coughed Gram Stain - Final 03/17/22 09:07 Sputum, Expectorated/Coughed Respiratory Culture - Final Mixed normal respiratory marquis. No Streptococcus pneumoniae, beta-hemolytic Streptococcus or Staphylococcus aureus isolated. 03/17/22 10:50 Stool Stool Lactoferrin - Final 03/17/22 05:45 Mucosa - Nasopharyngeal Respiratory Panel (PCR) - Final Rhinovirus 03/17/22 02:15 Nasal Secretion SARS-CoV-2 & FLU Antigen (Rapid) - Final 03/10/22 16:10 Stool Enteric Bacteriology - Final 03/10/22 16:10 Stool C. difficile DNA Amplification - Final 03/02/22 08:05 Blood Culture (Wb) - Neck Blood Culture - Final No growth in 5 days. 03/02/22 08:10 Blood Culture (Wb) - Right Forearm Blood Culture - Final No growth in 5 days. 03/04/22 09:40 Stool Stool Occult Blood (CANDIDA) - Final Occult Blood Positive 03/02/22 18:20 Stool C. difficile DNA Amplification - Final 03/01/22 21:30 Mucosa - Nasopharyngeal Respiratory Panel (PCR) - Final 03/01/22 22:00 Urine Catheter - Catheter Legionella Antigen - Final 03/01/22 22:00 Urine Catheter - Catheter Streptococcus pneumoniae Antigen (M - Final Radiography Diagnostic Testing: Radiology Impression Chest X-Ray 03/19/22 14:55 IMPRESSION: Stable examination. Electronically Signed: Akil Davis MD at 15:19 EST , Meaningful Use Info Meaningful Use Diagnoses (Choose all that apply): None applicable Discharge Plan Admission Admit Date/Time: 03/01/22 14:54 Primary Reason for Your Visit: Dyspnea/Orthopnea/Edema Attending Provider: Maia Maldonado Primary Care Provider: Pedro Luis Shin Consulting Providers: Lor Lazaro ; Pedro Luis Baig ; Jesse King ; Tono Higginbotham ; Yoel Arevalo ; Get Garner ; Angus Pradhan ; Jai Fan ; Mando Santo ; Leeanne Martin Discharge Orders/Prescriptions Prescriptions: New metronidazole 500 mg Tablet 500 mg PO TID 28 Days Qty: 84 0RF ciprofloxacin HCl 500 mg Tablet 500 mg PO QPM 28 Days Qty: 28 0RF vancomycin 1,000 mg recon soln 1 g IV .see below 28 Days Qty: 12 0RF Rx Instructions: 1gm iv vanc to be given with dialysis sessions 3x/week dx: foot osteomyelitis weekly bmp, cbc, vanc trough, LFT. Fax to [phone] stop date 04/12/22. acetaminophen [Tylenol] 325 mg Tablet 650 mg PO Q4H PRN PRN (Reason: Fever, pain 1-01/08) Qty: 0 0RF albuterol sulfate 2.5 mg /3 mL (0.083 %) Solution For Nebulization 2.5 mg inhalation Q2H PRN PRN (Reason: Dyspnea, wheezing) Qty: 0 0RF loperamide 2 mg Capsule 2 mg PO Q2H PRN PRN (Reason: Diarrhea) Qty: 0 0RF loperamide 2 mg Capsule 2 mg PO Q12 Qty: 0 0RF clopidogrel 75 mg Tablet 75 mg PO DAILY Qty: 30 0RF insulin lispro [Humalog KwikPen Insulin] 100 unit/mL Insulin Pen See Protocol subcut ACHS Qty: 0 0RF Protocol: 3. Sliding Scale Insulin Med Dosing Condition: 150-189 mg/dl = 1 unit Condition: 190-229 mg/dl = 2 units Condition: 230-269 mg/dl = 3 units Condition: 270-309 mg/dl = 4 units Condition: 310-349 mg/dl = 5 units Condition: 350-399 mg/dl = 6 units Condition: 400-449 mg/dl = 7 units Condition: Greater than 449 call physician Protocol Text: - Use for Total Daily Dose of Insulin 37-55 units - Obsese, infected, or steroid patients MEDIUM DOSING ALGORITHIM acidophilus-pectin, citrus 25 million cell -100 mg Tablet 1 tab PO BID Qty: 0 0RF Creon 12,000-38,000 -60,000 unit Capsule,Delayed Release(Dr/Ec) 3 cap PO TIDCM Qty: 0 0RF Levy (with collagen) 7-7-1.5 gram Powder In Packet 1 packet PO BIDCM Qty: 0 0RF midodrine 5 mg Tablet 10 mg PO TIDCM Qty: 0 0RF melatonin 3 mg Tablet 3 mg PO QHS PRN PRN (Reason: Insomnia) Qty: 0 0RF pantoprazole 40 mg Tablet,Delayed Release (Dr/Ec) 40 mg PO BID Qty: 0 0RF alum-mag hydroxide-simeth [Mag-Al Plus Extra Strength] 400-400-40 mg/5 mL Suspension 30 ml PO Q6H PRN PRN (Reason: Gastric Burning) Qty: 0 0RF Deep Sea Nasal 0.65 % Aerosol,[place] 2 spray NASAL BID PRN PRN (Reason: NASAL DRYNESS) Qty: 44 0RF menthol-zinc oxide [Calmoseptine] 0.44-20.6 % Ointment 1 applic topical TID Qty: 0 0RF Protocol: *Topical Application Instructions APPLICATION INSTRUCTIONS: apply to coccyx Continued atorvastatin 80 mg tablet 80 mg PO QHS Qty: 90 3RF ascorbic acid (vitamin C) 500 mg tablet 500 mg PO DAILY cholecalciferol (vitamin D3) 25 mcg (1,000 unit) capsule 25 mcg PO DAILY Novolin N Flexpen 5 units QHS Novolin N Flexpen 12 units DAILY warfarin [ven] 2 mg Tablet 2 mg PO DINNER Qty: 0 0RF Protocol: Dose Management Condition: Saturday Dose/Route: 2 mg Instruction: 1 x 2 mg tablet Condition: Saturday Dose/Route: 2 mg Instruction: 1 x 2 mg tablet Condition: Saturday Dose/Route: 0 mg Instruction: 0 tablets Condition: Saturday Dose/Route: 0 mg Instruction: 0 tablets Condition: Dose/Route: 2 mg Instruction: 1 x 2 mg tablet Condition: Saturday Dose/Route: 2 mg Instruction: 1 x 2 mg tablet Condition: Saturday Dose/Route: 2 mg Instruction: 1 x 2 mg tablet Protocol Text: Adjustment Start Date: Saturday02/27/22 INR Value: 5.4 INR Date: 02/27/22 Recheck Date: 03/01/22 (DME) Handicap Bebo Qty: 1 0RF Rx Instructions: As directed; Good from 08/03/19 - 08/02/24 Discontinued aspirin 81 MG tablet,delayed release (DR/EC) 81 mg PO DAILY omeprazole 20 mg capsule,delayed release(DR/EC) 20 mg PO DAILY PRN (Reason: acid reflux) Label Comments: TAKE 1 CAPSULE BY MOUTH ONCE DAILY 30 MINUTES BEFORE BREAKFAST ciprofloxacin HCl 750 mg tablet 750 mg PO BID Label Comments: TAKE 1 TABLET BY MOUTH TWICE DAILY losartan 25 mg tablet 25 mg PO DAILY Label Comments: TAKE 1 TABLET BY MOUTH ONCE DAILY doxycycline hyclate 100 mg tablet 100 mg PO BID Label Comments: TAKE 1 TABLET BY MOUTH TWICE DAILY potassium chloride 20 mEq tablet extended release 20 meq PO DAILY metoprolol succinate 100 mg tablet extended release 24 hr 100 mg PO BID Qty: 180 6RF spironolactone 25 mg tablet 25 mg PO DAILY Qty: 30 6RF furosemide 40 mg tablet 40 mg PO BID Referrals / Follow Up: Jai Fan DPM [Med Staff - Active Staff] - In 1 Week Mando Santo MD [Med Staff - Active Staff] - See Referral Note (as scheduled) Annabella Mondragon MD [Med Staff - Consulting] - Within 2 Weeks Pedro Luis Shin MD [Primary Care Provider] - Within 1 Month Yoel Arevalo MD [Med Staff - Active Staff] - Within 1 Month Disposition Disposition (needs filled in before D/C Order can be placed): [facility] Facility Charges/Coding Visit Charges Inpatient E&M: 57102 SNF Disch >30 Min
--- NOTE | 2022-03-20 11:33 | NURSING ---
Patient's family member provided this RN with Discharge appeal case #[id number]. She stated they are requesting records from his hospital stay.
--- NOTE | 2022-03-20 11:42 | CASEMGMT ---
Discharge Dinkey Locomotive Engineer This marketing underwriter went to patient room. is present at bedside. This marketing underwriter introduced self and role here at [facility]. This marketing underwriter explained that we have to places accepting patient. 1. [facility] 2. [facility]. This marketing underwriter explained beds are getting limited and we are in need of securing patient a spot. is suppose to give a choice within the hour. OSKAR Loja notified. Praveen DEY Planer Off Bearer
--- NOTE | 2022-03-20 11:58 | CASEMGMT ---
Discharge Software Development Advisor Jordon Womack now denied to non compliance. OSKAR Loja notified. Prvaeen DEY Bit Sharpener
--- NOTE | 2022-03-20 12:18 | PCM.PN.REN ---
Documented by User: KATHRYN Luong 03/20/22 12:25 Subjective Subjective Seen at end of dialysis, tolerated treatment well. Denies any cramping with dialysis. Denies any shortness of breath. at bedside. Questions answered regarding outpatient dialysis center. Objective Data Objective Data Vital Signs: Vital Signs Temp Pulse Resp BP Pulse Ox O2 Del Method O2 Flow Rate 98.1 F 100 18 119/72 94 Nasal Cannula 3 03/20/22 08:16 03/20/22 08:16 03/20/22 08:16 03/20/22 08:16 03/20/22 08:16 03/20/22 08:16 03/20/22 08:16 FiO2 30 03/17/22 07:03 Oxygen Flow Rate (L/min) 3 Oxygen Delivery Method Nasal Cannula Weight: 78 kg Body Mass Index (BMI) 26.9 Intake & Output: Intake and Output for Last 24 Hours 03/18/22 03/19/22 03/20/22 23:59 23:59 23:59 Intake Total 840 / 940 1310 / 1310 Output Total 0 / 0 0 / 0 Balance 840 / 940 1310 / 1310 Lab / Micro Data Result Diagrams: 03/20/22 07:20 03/20/22 06:00 Labs: Laboratory Results - last 24 hr 03/15/22 05:45: IgG 1186, IgA 284, IgM 76, IgE 235, c-ANCA Antibody <1:20, Atypical p-ANCA <1:20, p-ANCA Antibody 1:40 H 03/19/22 12:22: POC Glucose 270 H 03/19/22 17:09: POC Glucose 314 H 03/19/22 23:39: POC Glucose 314 H 03/20/22 06:00: WBC Cancelled, Corrected WBC Cancelled, RBC Cancelled, Hgb Cancelled, Hct Cancelled, MCV Cancelled, MCH Cancelled, MCHC Cancelled, RDW Std Deviation Cancelled, RDW Coeff of Nguyen Cancelled, Plt Count Cancelled, MPV Cancelled, Immature Gran % (Auto) Cancelled, Neut % (Auto) Cancelled, Lymph % (Auto) Cancelled, [place] % (Auto) Cancelled, Eos % (Auto) Cancelled, Baso % (Auto) Cancelled, Absolute Neuts (auto) Cancelled, Absolute Lymphs (auto) Cancelled, Total Counted Cancelled, Neutrophils % (Manual) Cancelled, Band Neutrophils % Cancelled, Lymphocytes % (Manual) Cancelled, Monocytes % (Manual) Cancelled, Eosinophils % (Manual) Cancelled, Basophils % (Manual) Cancelled, Metamyelocytes % Cancelled, Myelocytes % Cancelled, Promyelocytes % Cancelled, Blast Cells % Cancelled, Plasma Cell % (Manual) Cancelled, Other Cells % Cancelled, Nucleated RBC % Cancelled, Nucleated RBCs/100 WBC Cancelled, Differential Comment Cancelled, Diff Path Review Cancelled, Hypersegmented Neuts Cancelled, Atypical Lymphocytes Cancelled, Reactive Lymphocytes Cancelled, Smudge Cells Cancelled, Toxic Granulation Cancelled, Toxic Vacuolation Cancelled, Dohle Bodies Cancelled, Celestine Rods Cancelled, Platelet Estimate Cancelled, Plt Morphology Comment Cancelled, RBC Morphology Cancelled, Polychromasia Cancelled, Hypochromasia Cancelled, Poikilocytosis Cancelled, Basophilic Stippling Cancelled, Anisocytosis Cancelled, Microcytosis Cancelled, Macrocytosis Cancelled, Spherocytes Cancelled, Sickle Cells Cancelled, Target Cells Cancelled, Tear Drop Cells Cancelled, Ovalocytes Cancelled, Stomatocytes Cancelled, [place] Bodies Cancelled, [place] Cells Cancelled, Bite Cells Cancelled, Crenated Cell Cancelled, Acanthocytes (Spur) Cancelled, Rouleaux Cancelled, Schistocytes Cancelled 03/20/22 06:00: Sodium 130 L, Potassium 5.1, Chloride 97 L, Carbon Dioxide 24.0, Anion Gap 9, BUN 99 H, Creatinine 4.98 H, Estim Creat Clear Calc 11.61, Est GFR (MDRD) Af Amer 15 L, Est GFR (MDRD) Non-Af 12 L, BUN/Creatinine Ratio 19.9, Glucose 300 H, Calcium 9.0 03/20/22 06:00: Random Vancomycin 20.2 H 03/20/22 06:00: PT 17.5 H, INR 1.5 03/20/22 07:20: WBC 11.0, RBC 2.66 L, Hgb 8.3 L, Hct 25.8 L, MCV 97.0 H, MCH 31.2, MCHC 32.2, RDW Std Deviation 64.0 H, RDW Coeff of Nguyen 18.6 H, Plt Count 169, MPV 11.6, Immature Gran % (Auto) 1.000 H, Neut % (Auto) 88.1 H, Lymph % (Auto) 3.3 L, [place] % (Auto) 7.4, Eos % (Auto) 0.1, Baso % (Auto) 0.1, Absolute Neuts (auto) 9.7 H, Absolute Lymphs (auto) 0.36 L, Nucleated RBC % 0.4 03/20/22 08:20: POC Glucose 272 H Micro: Microbiology 03/17/22 09:07 Sputum, Expectorated/Coughed Gram Stain - Final 03/17/22 09:07 Sputum, Expectorated/Coughed Respiratory Culture - Final Mixed normal respiratory amrquis. No Streptococcus pneumoniae, beta-hemolytic Streptococcus or Staphylococcus aureus isolated. 03/17/22 10:50 Stool Stool Lactoferrin - Final 03/17/22 05:45 Mucosa - Nasopharyngeal Respiratory Panel (PCR) - Final Rhinovirus 03/17/22 02:15 Nasal Secretion SARS-CoV-2 & FLU Antigen (Rapid) - Final 03/10/22 16:10 Stool Enteric Bacteriology - Final 03/10/22 16:10 Stool C. difficile DNA Amplification - Final 03/02/22 08:05 Blood Culture (Wb) - Neck Blood Culture - Final No growth in 5 days. 03/02/22 08:10 Blood Culture (Wb) - Right Forearm Blood Culture - Final No growth in 5 days. 03/04/22 09:40 Stool Stool Occult Blood (CANDIDA) - Final Occult Blood Positive 03/02/22 18:20 Stool C. difficile DNA Amplification - Final 03/01/22 21:30 Mucosa - Nasopharyngeal Respiratory Panel (PCR) - Final 03/01/22 22:00 Urine Catheter - Catheter Legionella Antigen - Final 03/01/22 22:00 Urine Catheter - Catheter Streptococcus pneumoniae Antigen (M - Final Radiography Diagnostic Testing: Radiology Impression Chest X-Ray 03/19/22 14:55 IMPRESSION: Stable examination. Electronically Signed: Akil Davis MD at 15:19 EST , Rhythm Strip Rhythm Strip: Sinus Rhythm Rate: 82 Physical Exam Narrative Alert and oriented x3, no apparent distress Lung sounds audibly coarse, with coarse cough S1, S2, RRR Abdomen soft, nontender No significant lower extremity pitting edema. Edema to bilateral arms. Dressings clean dry and intact to bilateral feet Left internal jugular tunneled HD catheter dressing clean, dry and intact Assessment & Plan Assessment/Plan (1) Acute renal failure (ARF): QUALIFIERS: Acute renal failure type: unspecified Qualified Code(s): N17.9 - Acute kidney failure, unspecified (2) Chronic kidney disease, stage 3b: (3) Hypotension: (4) Anemia: (5) Ischemic cardiomyopathy: (6) Peripheral vascular disease, unspecified: PLAN: Plan - dialysis dependent DAVIS on CKD. Patient has been essentially anuric. In hospital patient has been on a Saturday dialysis schedule. -No noted renal recovery at this time. Last dialysis was 03/17, patient tolerated around 2 L UF. We will continue to remove fluid with dialysis as patient/blood pressure tolerates. He still has edema in his arms and last chest x-ray showed small bilateral pleural effusions. - Prior baseline serum creatinine had been around 1.50 mg/dL (01/23/2022). Suspect the patient has underlying diabetic kidney disease or nephrosclerosis related to PAD. - DAVIS is secondary to ischemic ATN from circulatory shock/sepsis. The patient was started on dialysis on 03/02/2022, serum creatinine 9.52 mg/dL. -We will continue to monitor for any renal recovery. -Predialysis creatinine 4.98 mg/dL today. Patient dialyzed over 3.5 hours with 1.3 L fluid removal. We were attempting to remove more fluid with dialysis but unable to due to hypotension. Patient to receive midodrine at start of each dialysis and can also receive 10 mg midodrine during HD for intradialytic hypotension. Likely plan for next dialysis session on . -Hypotension thought to be related to sepsis. The patient also has ischemic cardiomyopathy, EF 35%. Continue midodrine 10 mg 3 times daily, bps improved. - GI consulted for anemia and diarrhea. Current hemoglobin 7.8, hemoglobin has ranged 7 to 8 g/dL this admission. Had colonoscopy with findings of hemorrhoids, single ulcer in rectum treated with heater probe. ?EGD which showed grade 2 esophageal varices and oozing gastric ulcer with adherent clot which was treated with monopolar probe as well as gastric antral vascular ectasias without bleeding which was biopsied.? Second portion of duodenum was normal. Started back on Coumadin. - Status post angiogram of the lower extremities per vascular. - discharge planning in progress. Possibly d/c to [facility] for therapy with transportation to/from dialysis. HD arranged at [facility]. Documented by User: Dr. Annabella Mondragon MD 03/20/22 18:33 Objective Data Lab / Micro Data Result Diagrams: 03/20/22 07:20 03/20/22 06:00 Assessment & Plan Assessment/Plan (1) Acute renal failure (ARF): QUALIFIERS: Acute renal failure type: unspecified Qualified Code(s): N17.9 - Acute kidney failure, unspecified (2) Chronic kidney disease, stage 3b: (3) Hypotension: (4) Anemia: (5) Ischemic cardiomyopathy: (6) Peripheral vascular disease, unspecified: PLAN: Plan - dialysis dependent DAVIS on CKD. Patient has been essentially anuric. In hospital patient has been on a Saturday dialysis schedule. -No noted renal recovery at this time. Last dialysis was 03/17, patient tolerated around 2 L UF. We will continue to remove fluid with dialysis as patient/blood pressure tolerates. He still has edema in his arms and last chest x-ray showed small bilateral pleural effusions. - Prior baseline serum creatinine had been around 1.50 mg/dL (01/23/2022). Suspect the patient has underlying diabetic kidney disease or nephrosclerosis related to PAD. - DAVIS is secondary to ischemic ATN from circulatory shock/sepsis. The patient was started on dialysis on 03/02/2022, serum creatinine 9.52 mg/dL. -We will continue to monitor for any renal recovery. -Predialysis creatinine 4.98 mg/dL today. Patient dialyzed over 3.5 hours with 1.3 L fluid removal. We were attempting to remove more fluid with dialysis but unable to due to hypotension. Patient to receive midodrine at start of each dialysis and can also receive 10 mg midodrine during HD for intradialytic hypotension. Likely plan for next dialysis session on . -Hypotension thought to be related to sepsis. The patient also has ischemic cardiomyopathy, EF 35%. Continue midodrine 10 mg 3 times daily, bps improved. - GI consulted for anemia and diarrhea. Current hemoglobin 7.8, hemoglobin has ranged 7 to 8 g/dL this admission. Had colonoscopy with findings of hemorrhoids, single ulcer in rectum treated with heater probe. ?EGD which showed grade 2 esophageal varices and oozing gastric ulcer with adherent clot which was treated with monopolar probe as well as gastric antral vascular ectasias without bleeding which was biopsied.? Second portion of duodenum was normal. Started back on Coumadin. - Status post angiogram of the lower extremities per vascular. - discharge planning in progress. Possibly d/c to [facility] for therapy with transportation to/from dialysis. HD arranged at [facility]. addendum agree with above dc plans
--- NOTE | 2022-03-20 12:23 | DIALYSIS ---
hemodialysis completed x 3.5 hrs. Access via left chest HD cath. Net UF 1300ml. pt was hypotensive throughout tx. denies complaitns. See HD flowsheet on chart.
--- NOTE | 2022-03-20 12:32 | CASEMGMT ---
Discharge Practice Specialist is agreeable for patient to go to [facility]. is requesting a private room and this automatic typewriter inspector talked to Abigal at [facility] and a private room is available for him. Praveen DEY Community Theater Actor
--- NOTE | 2022-03-20 12:41 | PCM.HOSP.N ---
Hospitalist Note I was notified by nursing staff that the patient and family are very upset about the Ativan that he was given yesterday. We had an extensive discussion as noted in my subjective portion of my note yesterday about his anxiety and what we could do to try to help him. They were agreeable to trying Ativan. A 0.25 mg dose was ordered as discussed. I did attempt to reevaluate this today with them however they ignored me with the conversation that I tried to reassess the effectiveness. Again, I was notified at 12:30 in the afternoon that they were furious with the Ativan and were going to call their software requirements engineer with their concerns with regards to the medication. I told the nurse I am happy to discontinue the Ativan and we initiated it yesterday and a trial to help with his anxiety related to his hospital stay. He did refuse to try any antidepressants that we offered yesterday but again as noted above and previously was agreeable to trying Ativan.
[2022-03-20 12:44] LABS: Calprotectin, Stool 276 ug/g (0-120); Fats, Neutral Normal (.); Fats, Total Normal (.)
--- NOTE | 2022-03-20 13:33 | TREXTCAR_ITS ---
Diet Diet Order/Speech Therapy: 03/15/22 17:23 Diet: Cardiac - Heart Healthy/Renal Dietary Modifications:: Consistent Carbohydrate Type of Dietary Supplement:: Nepro Is pt able to select menu?: Yes Diet Comments: 8 oz nepro cho steady w/ meals tid Routine Orders/Code Status O2 Liters per Minute: 3 O2 Frequency: Continuous Routine Lab Work: CBC (3 days), BMP (3 days) and INR (daily) Code Status: Full Code Wound(s) RLE: Wound Type: stasis ulcers to the leg and ischemic ulcers to the foot Dressing Change: Adaptic to the leg and betadine to the foot wounds LLE: Wound Type: scattered stasis ulcers to the legs/ischemic ulcers to the foot Dressing Change: Adaptic to leg and betadine to foot left great toe: Wound Type: ischemic ulcer Dressing Change: betadine/gauze tip of left great toe: Wound Type: ischemic ulcer Dressing Change: betadine/gauze left anterior juarez: Wound Type: Stasis Ulcer Dressing Change: Adaptic left medial lower leg: Wound Type: Stasis Ulcer Dressing Change: Adaptic left lateral foot: Wound Type: ischemic ulcer Dressing Change: betadine/dry dressing left lateral heel: Wound Type: Stasis Ulcer Dressing Change: Adaptic right medial lower leg: Wound Type: Stasis Ulcer Dressing Change: Adaptic right anterior lower leg: Wound Type: Stasis Ulcer Dressing Change: Adaptic right dorsal foot: Wound Type: ischemic ulcer Dressing Change: betadine gauze right 2nd toe: Wound Type: ischemic ulcer Dressing Change: betadine gauze right buttocks: Wound Type: Pressure Injury left buttocks: Wound Type: Pressure Injury coccyx: Wound Type: moisture related open area Dressing Change: Mepilex changed RFA: Wound Type: Skin Tear lt upper arm: Wound Type: Skin Tear Dressing Change: Adaptic rt groin post angio site: Wound Type: Puncture Suggestions for Active Care Change Position every (hours): 2 Therapies Weight Bearing: Non weight bearing Extremity Affected:: Bilateral Lower Physical Therapy: Eval and Treat Occupational Therapy: Eval and Treat Problem/Diagnosis (1) Acute renal failure (ARF): Status: Acute Code(s): N17.9 - Acute kidney failure, unspecified (2) Chronic kidney disease, stage 3b: Status: Chronic Code(s): N18.32 - Chronic kidney disease, stage 3b (3) Hypotension: Status: Acute Code(s): I95.9 - Hypotension, unspecified (4) Anemia: Status: Acute Code(s): D64.9 - Anemia, unspecified (5) Ischemic cardiomyopathy: Status: Acute Code(s): I25.5 - Ischemic cardiomyopathy (6) Peripheral vascular disease, unspecified: Status: Chronic Code(s): I73.9 - Peripheral vascular disease, unspecified Allergies/Procedures Done in Hospital Allergies amiodarone Allergy (Verified 03/14/22 15:49) Shortness of breath lisinopril Adverse Reaction (Verified 03/01/22 13:28) cough Procedures: 2-D Echocardiogram, Colonoscopy, EGD and - (Extremity arterial studies/renal ultrasound/aortogram with lower extremity runoff left teal angioplasty/left anterior tibial angioplasty) Type of Care/Length of Stay Estimated LOS: More Than 30 Days Type of Care Needed: Skilled Rehab Potential: Fair Prognosis: Fair Additional Orders/Day of Discharge Day of Discharge: 03/20/22 Dietary and Speech Recommendations Dietitian Recommendations/Changes: Recommend advancing diet to CHO Controlled / Sodium Restricted with 8oz Nepro CarbSteady ONS at meals when medically able. Recommend continue Levy BID for wound healing when diet advances. Discharge Plan Admission Admit Date/Time: 03/01/22 14:54 Primary Reason for Your Visit: Dyspnea/Orthopnea/Edema Attending Provider: Maia Maldonado Primary Care Provider: Pedro Luis Shin Consulting Providers: Lor Lazaro ; Pedro Luis Baig ; Jesse King ; Tono Higginbotham ; Yoel Arevalo ; Get Garner ; Angus Pradhan ; Jai Fan ; Mando Santo ; Leeanne Martin Discharge Orders/Prescriptions Prescriptions: New metronidazole 500 mg Tablet 500 mg PO TID 28 Days Qty: 84 0RF ciprofloxacin HCl 500 mg Tablet 500 mg PO QPM 28 Days Qty: 28 0RF vancomycin 1,000 mg recon soln 1 g IV .see below 28 Days Qty: 12 0RF Rx Instructions: 1gm iv vanc to be given with dialysis sessions 3x/week dx: foot osteomyelitis weekly bmp, cbc, vanc trough, LFT. Fax to [phone] stop date 04/12/22. acetaminophen [Tylenol] 325 mg Tablet 650 mg PO Q4H PRN PRN (Reason: Fever, pain 1-01/08) Qty: 0 0RF albuterol sulfate 2.5 mg /3 mL (0.083 %) Solution For Nebulization 2.5 mg inhalation Q2H PRN PRN (Reason: Dyspnea, wheezing) Qty: 0 0RF loperamide 2 mg Capsule 2 mg PO Q2H PRN PRN (Reason: Diarrhea) Qty: 0 0RF loperamide 2 mg Capsule 2 mg PO Q12 Qty: 0 0RF clopidogrel 75 mg Tablet 75 mg PO DAILY Qty: 30 0RF insulin lispro [Humalog KwikPen Insulin] 100 unit/mL Insulin Pen See Protocol subcut ACHS Qty: 0 0RF Protocol: 3. Sliding Scale Insulin Med Dosing Condition: 150-189 mg/dl = 1 unit Condition: 190-229 mg/dl = 2 units Condition: 230-269 mg/dl = 3 units Condition: 270-309 mg/dl = 4 units Condition: 310-349 mg/dl = 5 units Condition: 350-399 mg/dl = 6 units Condition: 400-449 mg/dl = 7 units Condition: Greater than 449 call physician Protocol Text: - Use for Total Daily Dose of Insulin 37-55 units - Obsese, infected, or steroid patients MEDIUM DOSING ALGORITHIM acidophilus-pectin, citrus 25 million cell -100 mg Tablet 1 tab PO BID Qty: 0 0RF Creon 12,000-38,000 -60,000 unit Capsule,Delayed Release(Dr/Ec) 3 cap PO TIDCM Qty: 0 0RF Levy (with collagen) 7-7-1.5 gram Powder In Packet 1 packet PO BIDCM Qty: 0 0RF midodrine 5 mg Tablet 10 mg PO TIDCM Qty: 0 0RF melatonin 3 mg Tablet 3 mg PO QHS PRN PRN (Reason: Insomnia) Qty: 0 0RF pantoprazole 40 mg Tablet,Delayed Release (Dr/Ec) 40 mg PO BID Qty: 0 0RF alum-mag hydroxide-simeth [Mag-Al Plus Extra Strength] 400-400-40 mg/5 mL Suspension 30 ml PO Q6H PRN PRN (Reason: Gastric Burning) Qty: 0 0RF [place] Nasal 0.65 % Aerosol,[place] 2 spray NASAL BID PRN PRN (Reason: NASAL DRYNESS) Qty: 44 0RF menthol-zinc oxide [Calmoseptine] 0.44-20.6 % Ointment 1 applic topical TID Qty: 0 0RF Protocol: *Topical Application Instructions APPLICATION INSTRUCTIONS: apply to coccyx Continued atorvastatin 80 mg tablet 80 mg PO QHS Qty: 90 3RF ascorbic acid (vitamin C) 500 mg tablet 500 mg PO DAILY cholecalciferol (vitamin D3) 25 mcg (1,000 unit) capsule 25 mcg PO DAILY Novolin N Flexpen 5 units QHS Novolin N Flexpen 12 units DAILY warfarin [Aprtoven] 2 mg Tablet 2 mg PO DINNER Qty: 0 0RF Protocol: Dose Management Condition: Saturday Dose/Route: 2 mg Instruction: 1 x 2 mg tablet Condition: Saturday Dose/Route: 2 mg Instruction: 1 x 2 mg tablet Condition: Saturday Dose/Route: 0 mg Instruction: 0 tablets Condition: Saturday Dose/Route: 0 mg Instruction: 0 tablets Condition: Dose/Route: 2 mg Instruction: 1 x 2 mg tablet Condition: Saturday Dose/Route: 2 mg Instruction: 1 x 2 mg tablet Condition: Saturday Dose/Route: 2 mg Instruction: 1 x 2 mg tablet Protocol Text: Adjustment Start Date: Saturday02/27/22 INR Value: 5.4 INR Date: 02/27/22 Recheck Date: 03/01/22 (DME) Handicap Placard Qty: 1 0RF Rx Instructions: As directed; Good from 08/03/19 - 08/02/24 Discontinued aspirin 81 MG tablet,delayed release (DR/EC) 81 mg PO DAILY omeprazole 20 mg capsule,delayed release(DR/EC) 20 mg PO DAILY PRN (Reason: acid reflux) Label Comments: TAKE 1 CAPSULE BY MOUTH ONCE DAILY 30 MINUTES BEFORE BREAKFAST ciprofloxacin HCl 750 mg tablet 750 mg PO BID Label Comments: TAKE 1 TABLET BY MOUTH TWICE DAILY losartan 25 mg tablet 25 mg PO DAILY Label Comments: TAKE 1 TABLET BY MOUTH ONCE DAILY doxycycline hyclate 100 mg tablet 100 mg PO BID Label Comments: TAKE 1 TABLET BY MOUTH TWICE DAILY potassium chloride 20 mEq tablet extended release 20 meq PO DAILY metoprolol succinate 100 mg tablet extended release 24 hr 100 mg PO BID Qty: 180 6RF spironolactone 25 mg tablet 25 mg PO DAILY Qty: 30 6RF furosemide 40 mg tablet 40 mg PO BID Referrals / Follow Up: Jai Fan DPM [Med Staff - Active Staff] - In 1 Week Mando Santo MD [Med Staff - Active Staff] - See Referral Note (as scheduled) Annabella Mondragon MD [Med Staff - Consulting] - Within 2 Weeks Pedro Luis Shin MD [Primary Care Provider] - Within 1 Month Yoel Arevalo MD [Med Staff - Active Staff] - Within 1 Month Disposition Disposition (needs filled in before D/C Order can be placed): Detention Facility (1) Acute renal failure (ARF) Qualifiers: Acute renal failure type: unspecified Qualified Code(s): N17.9 - Acute kidney failure, unspecified
--- NOTE | 2022-03-20 14:18 | CASEMGMT ---
KALEB SIMPSON: Notice received from MAGEN Coronado of this beneficiary's request for discharge appeal. Detailed Notice of Discharge completed. Pt sleeping and pt's Estephania at bedside. Detailed Notice of Discharge explained and provided to pt's . Questions related to pt's current readiness for discharge answered and process for appeal explained. Pt's states they will await the result of the appeal request and if discharged at least he tried and stated one more night in the hospital may provide pt with some peace of mind. Medical records to submit documents as requested by Ivonne. Will await appeal decision. Josesito Bolanos RN CM
--- NOTE | 2022-03-20 14:51 | NURSING ---
Discharge financial planning adviser notified this RN that the pt and family are very upset about the ativan that had been ordered and given to the pt. This RN went into bedside. Pt was sleeping and the pt told this RN that I don't want anymore of that medication given to him. It made him sleepy and he was not himself. I am having my meat hostess in here tomorrow and I want the pt to be able to speak to him without being all doped up. This RN notified Dr. Maldonado of pts request and that the pt was frusturated because the ativan made the patient Not like himself. Dr. Maldonado verbally told this RN to d/c the ativan. Dr. Maldonado stated I asked the pt this morning when I was in the room how the ativan worked and they didn't say anything to me, They just kept watching the TV and not listening to me.
[2022-03-20] MEDS: Acetaminophen 325 MG Tablet 650 MG PO ×2 (17:05→21:44)
[2022-03-20] MEDS: Creon 12,000 unit DR CapSULE 3 CAP PO (17:11)
[2022-03-20] MEDS: Juven (unflavored) Packet 1 PACKET PO (17:11)
[2022-03-20] MEDS: Midodrine HCl 5 MG Tablet 10 MG PO (17:12)
[2022-03-20] MEDS: Jantoven 2 MG Tablet PO (17:16)
[2022-03-20 18:26] LABS: Bedside Glucose 140 mg/dL (74-106)
[2022-03-20 18:26] LABS: Bedside Glucose 152 mg/dL (74-106)
[2022-03-20] MEDS: Ciprofloxacin 500 MG Tablet PO (21:35)
[2022-03-20] MEDS: Insulin NPH Human 100 UNITS/ML PEN 8 UNITS SC (21:37)
[2022-03-20] MEDS: Loperamide 2 MG Capsule PO (21:37)
[2022-03-20] MEDS: Atorvastatin Calcium 80 MG Tablet PO (21:38)
[2022-03-20] MEDS: Pantoprazole Sodium 40 MG Tablet PO (21:38)
[2022-03-20] MEDS: MELATONIN 3 MG TABLET PO (21:45)
[2022-03-21] VITALS (15 sets, daily range): BP systolic 94–101; BP diastolic 56–63; PULSE 62–124; RESP 14–20; TEMP 36.3–36.8; O2SAT 96–100
[2022-03-21 01:10] LABS: Bedside Glucose 251 mg/dL (74-106)
[2022-03-21] MEDS: Loperamide 2 MG Capsule PO ×4 (02:30→22:56)
[2022-03-21 05:22] LABS: Absolute Lymphocyte Count 0.43 X10^3/uL (0.83-4.51); Absolute Neutrophil Count 9.7 X10^3/uL (2.0-7.7); Basophil# 0.02 X10^3/uL; Basophil% 0.2 % (0-1); Eosinophil# 0.08 X10^3/uL; Eosinophils% 0.7 % (0-5); Hematocrit 25.4 % (40-54); Hemoglobin 8.1 g/dL (13.0-16.5); Lymphocyte # 0.43 X10^3/ul (0.83-4.51); Lymphocyte % 3.9 % (19-41); Mean Corp Hgb Conc 31.9 g/dL (32-36); Mean Corpuscular Hgb 31.3 pg (27.0-32.0); Mean Corpuscular Volume 98.1 fL (80-94); Mean Platelet Vol. 11.1 fl (6.2-12.0); Monocyte# 0.84 X10^3/uL; Monocyte% 7.5 % (0-10); NRBC Flagged by Analyzer 0.2 % (0-5); Neutrophil # 9.65 X10^3/uL (2.7-7.7); Neutrophil % 86.6 % (47-70); POSITIVE DIFFERENTIAL YES; POSITIVE MORPHOLOGY YES; Platelet Count 144 K/mm3 (150-450); RBC Distribution Width CV 19.1 % (11.6-14.6); Red Blood Count 2.59 M/mm3 (4.6-6.2); White Blood Count 11.1 K/mm3 (4.4-11.0)
[2022-03-21 05:26] LABS: Differential Indicated SCAN CRITERIA MET
[2022-03-21 05:36] LABS: International Normalized Ratio 1.5; Prothrombin Time (Protime)PT. 18.2 SECONDS (11.7-14.9)
[2022-03-21] MEDS: metroNIDAZOLE 500 MG Tablet PO ×3 (05:40→22:55)
[2022-03-21] MEDS: Menthol/Lanolin/Calamine/Znox 113 GM Tube 1 APPLIC TOPICAL ×3 (05:40→22:49)
[2022-03-21] MEDS: Heparin Injection (Vial) 5,000 UNIT/ML VIAL 5000 UNIT SC ×3 (05:41→22:55)
[2022-03-21 06:12] LABS: Anion Gap 7 (5-15); BUN 71 mg/dL (7-18); BUN/Creat Ratio 19.6 RATIO (10-20); Calcium,Total 8.2 mg/dL (8.5-10.1); Chloride 100 mmol/L (98-107); Creatinine, Serum 3.62 mg/dL (0.70-1.30); EST Glomerular Filtration Rate 17 mL/min (>60); Est Glom Filt Rate - Afr Amer 21 mL/min (>60); Estimated Creatinine Clearance 15.98 ml/min; Glucose 240 mg/dL (74-106); Potassium 4.2 mmol/L (3.5-5.1); Sodium Level 133 mmol/L (136-145)
[2022-03-21 06:14] LABS: Anisocytosis 2+; Differential Comment SCANNED; Polychromasia 1+
[2022-03-21 06:15] LABS: Macrocytosis 1+; Microcytosis 1+; Ovalocyte RARE
[2022-03-21] MEDS: Insulin Lispro 100 UNIT/ML INSULN.PEN SC ×2 (06:43→11:22)
[2022-03-21 07:05] LABS: Bedside Glucose 215 mg/dL (74-106)
[2022-03-21] MEDS: Insulin NPH Human 100 UNITS/ML PEN 12 UNITS SC (08:15)
[2022-03-21] MEDS: Juven (unflavored) Packet 1 PACKET PO (08:18)
[2022-03-21] MEDS: Aspirin E.C. 81 MG Tablet PO (08:19)
[2022-03-21] MEDS: Creon 12,000 unit DR CapSULE 3 CAP PO (08:19)
[2022-03-21] MEDS: Midodrine HCl 5 MG Tablet 10 MG PO ×2 (08:20→11:26)
[2022-03-21] MEDS: Clopidogrel Bisulfate 75 MG Tablet PO (08:20)
[2022-03-21] MEDS: Pantoprazole Sodium 40 MG Tablet PO ×2 (08:21→22:56)
[2022-03-21 09:26] LABS: Bedside Glucose 210 mg/dL (74-106)
[2022-03-21] MEDS: Albuterol 2.5 MG/3 ML VIAL.NEB. INHALATION ×3 (11:38→15:13)
[2022-03-21 11:51] LABS: Bedside Glucose 232 mg/dL (74-106)
--- NOTE | 2022-03-21 12:14 | PN.RENAL_ITS ---
Documented by User: KATHRYN Luong 03/21/22 12:18 Subjective Subjective No complaints. Resting in bed. at bedside. No overnight events. Objective Data Objective Data Vital Signs: Vital Signs Temp Pulse Resp BP Pulse Ox O2 Del Method O2 Flow Rate 97.5 F L 102 H 14 95/62 100 Nasal Cannula 2 03/21/22 08:10 03/21/22 11:03 03/21/22 08:10 03/21/22 08:10 03/21/22 08:10 03/21/22 08:28 03/21/22 08:28 FiO2 30 03/21/22 08:10 Oxygen Flow Rate (L/min) 2 Oxygen Delivery Method Nasal Cannula Weight: 76.5 kg Body Mass Index (BMI) 26.9 Intake & Output: Intake and Output for Last 24 Hours 03/19/22 03/20/22 03/21/22 23:59 23:59 23:59 Intake Total 1310 / 1310 720 / 720 Output Total 0 / 0 1300 / 1300 Balance 1310 / 1310 -580 / -580 Lab / Micro Data Result Diagrams: 03/21/22 05:10 03/21/22 05:10 Labs: Laboratory Results - last 24 hr 03/15/22 07:16: Stool Neutral Fats Normal, Stool Total Fats Normal, Stool Calprotectin 276 H 03/20/22 15:11: POC Glucose 152 H 03/20/22 17:07: POC Glucose 140 H 03/20/22 21:16: POC Glucose 251 H 03/21/22 05:10: PT 18.2 H, INR 1.5 03/21/22 05:10: WBC 11.1 H, RBC 2.59 L, Hgb 8.1 L, Hct 25.4 L, MCV 98.1 H, MCH 31.3, MCHC 31.9 L, RDW Std Deviation 66.0 H, RDW Coeff of Nguyen 19.1 H, Plt Count 144 L, MPV 11.1, Immature Gran % (Auto) 1.100 H, Neut % (Auto) 86.6 H, Lymph % (Auto) 3.9 L, [place] % (Auto) 7.5, Eos % (Auto) 0.7, Baso % (Auto) 0.2, Absolute Neuts (auto) 9.7 H, Absolute Lymphs (auto) 0.43 L, Nucleated RBC % 0.2, Differential Comment SCANNED, Polychromasia 1+, Anisocytosis 2+, Microcytosis 1+, Macrocytosis 1+, Ovalocytes RARE 03/21/22 05:10: Sodium 133 L, Potassium 4.2, Chloride 100, Carbon Dioxide 26.0, Anion Gap 7, BUN 71 H, Creatinine 3.62 H, Estim Creat Clear Calc 15.98, Est GFR (MDRD) Af Amer 21 L, Est GFR (MDRD) Non-Af 17 L, BUN/Creatinine Ratio 19.6, Glucose 240 H, Calcium 8.2 L 03/21/22 05:44: POC Glucose 215 H 03/21/22 08:14: POC Glucose 210 H 03/21/22 11:21: POC Glucose 232 H Micro: Microbiology 03/17/22 09:07 Sputum, Expectorated/Coughed Gram Stain - Final 03/17/22 09:07 Sputum, Expectorated/Coughed Respiratory Culture - Final Mixed normal respiratory marquis. No Streptococcus pneumoniae, beta-hemolytic Streptococcus or Staphylococcus aureus isolated. 03/17/22 10:50 Stool Stool Lactoferrin - Final 03/17/22 05:45 Mucosa - Nasopharyngeal Respiratory Panel (PCR) - Final Rhinovirus 03/17/22 02:15 Nasal Secretion SARS-CoV-2 & FLU Antigen (Rapid) - Final 03/10/22 16:10 Stool Enteric Bacteriology - Final 03/10/22 16:10 Stool C. difficile DNA Amplification - Final 03/02/22 08:05 Blood Culture (Wb) - Neck Blood Culture - Final No growth in 5 days. 03/02/22 08:10 Blood Culture (Wb) - Right Forearm Blood Culture - Final No growth in 5 days. 03/04/22 09:40 Stool Stool Occult Blood (CANDIDA) - Final Occult Blood Positive 03/02/22 18:20 Stool C. difficile DNA Amplification - Final 03/01/22 21:30 Mucosa - Nasopharyngeal Respiratory Panel (PCR) - Final 03/01/22 22:00 Urine Catheter - Catheter Legionella Antigen - Final 03/01/22 22:00 Urine Catheter - Catheter Streptococcus pneumoniae Antigen (M - Final Radiography Diagnostic Testing: Radiology Impression Chest X-Ray 03/20/22 05:25 IMPRESSION: Stable examination. Electronically Signed: Akil Davis MD at 14:44 EST , Rhythm Strip Rhythm Strip: Sinus Rhythm Rate: 82 Physical Exam Narrative Alert and oriented x3, no apparent distress Lung sounds audibly coarse, with coarse cough S1, S2, RRR Abdomen soft, nontender No significant lower extremity pitting edema. Edema to bilateral arms. Dressings clean dry and intact to bilateral feet Left internal jugular tunneled HD catheter dressing clean, dry and intact Assessment & Plan Assessment/Plan (1) Acute renal failure (ARF): QUALIFIERS: Acute renal failure type: unspecified Qualified Code(s): N17.9 - Acute kidney failure, unspecified (2) Chronic kidney disease, stage 3b: (3) Hypotension: (4) Anemia: (5) Ischemic cardiomyopathy: (6) Peripheral vascular disease, unspecified: PLAN: Plan - dialysis dependent DAVIS on CKD. Patient has been essentially anuric. In hospital patient has been on a Saturday dialysis schedule. -No noted renal recovery at this time. He still has edema in his arms and last chest x-ray showed small bilateral pleural effusions. - Prior baseline serum creatinine had been around 1.50 mg/dL (01/23/2022). Suspect the patient has underlying diabetic kidney disease or nephrosclerosis related to PAD. - DAVIS is secondary to ischemic ATN from circulatory shock/sepsis. The patient was started on dialysis on 03/02/2022, serum creatinine 9.52 mg/dL. -We will continue to monitor for any renal recovery. -No acute indication for SET UP MACHINIST today. Likely plan for dialysis tomorrow. Labs ordered. Patient to receive midodrine at start of each dialysis and can also receive 10 mg midodrine during HD for intradialytic hypotension. -Hypotension thought to be related to sepsis. The patient also has ischemic cardiomyopathy, EF 35%. Continue midodrine 10 mg 3 times daily, bps improved. - GI consulted for anemia and diarrhea. Current hemoglobin 7.8, hemoglobin has ranged 7 to 8 g/dL this admission. Had colonoscopy with findings of hemorrhoids, single ulcer in rectum treated with heater probe. ?EGD which showed grade 2 esophageal varices and oozing gastric ulcer with adherent clot which was treated with monopolar probe as well as gastric antral vascular ectasias without bleeding which was biopsied.? Second portion of duodenum was normal. Started back on Coumadin. - Status post angiogram of the lower extremities per vascular. - discharge planning in progress. Possibly d/c to [facility] for therapy with transportation to/from dialysis. HD arranged at [facility]. Documented by User: Dr. Annabella Mondragon MD 03/21/22 15:19 Objective Data Lab / Micro Data Result Diagrams: 03/21/22 05:10 03/21/22 05:10 Assessment & Plan Assessment/Plan (1) Acute renal failure (ARF): QUALIFIERS: Acute renal failure type: unspecified Qualified Code(s): N17.9 - Acute kidney failure, unspecified (2) Chronic kidney disease, stage 3b: (3) Hypotension: (4) Anemia: (5) Ischemic cardiomyopathy: (6) Peripheral vascular disease, unspecified: PLAN: Plan - dialysis dependent DAVIS on CKD. Patient has been essentially anuric. In hospital patient has been on a Saturday dialysis schedule. -No noted renal recovery at this time. He still has edema in his arms and last chest x-ray showed small bilateral pleural effusions. - Prior baseline serum creatinine had been around 1.50 mg/dL (01/23/2022). Suspect the patient has underlying diabetic kidney disease or nephrosclerosis related to PAD. - DAVIS is secondary to ischemic ATN from circulatory shock/sepsis. The patient was started on dialysis on 03/02/2022, serum creatinine 9.52 mg/dL. -We will continue to monitor for any renal recovery. -No acute indication for SET UP MACHINIST today. Likely plan for dialysis tomorrow. Labs ordered. Patient to receive midodrine at start of each dialysis and can also receive 10 mg midodrine during HD for intradialytic hypotension. -Hypotension thought to be related to sepsis. The patient also has ischemic cardiomyopathy, EF 35%. Continue midodrine 10 mg 3 times daily, bps improved. - GI consulted for anemia and diarrhea. Current hemoglobin 7.8, hemoglobin has ranged 7 to 8 g/dL this admission. Had colonoscopy with findings of hemorrhoids, single ulcer in rectum treated with heater probe. ?EGD which showed grade 2 esophageal varices and oozing gastric ulcer with adherent clot which was treated with monopolar probe as well as gastric antral vascular ectasias without bleeding which was biopsied.? Second portion of duodenum was normal. Started back on Coumadin. - Status post angiogram of the lower extremities per vascular. - discharge planning in progress. Possibly d/c to ECF for therapy with transportation to/from dialysis. HD arranged at [facility]. Attending addendum. Agree with above. Discharge plans in progress.
--- NOTE | 2022-03-21 12:14 | PCM.PROGNOTE ---
Subjective Subjective No changes overnight. Denies constitutionals. Objective Data Objective Data Vital Signs: Vital Signs Temp Pulse Resp BP Pulse Ox O2 Del Method O2 Flow Rate 97.5 F L 102 H 14 95/62 100 Nasal Cannula 2 03/21/22 08:10 03/21/22 11:03 03/21/22 08:10 03/21/22 08:10 03/21/22 08:10 03/21/22 08:28 03/21/22 08:28 FiO2 30 03/21/22 08:10 Oxygen Flow Rate (L/min) 2 Oxygen Delivery Method Nasal Cannula Weight: 76.5 kg Body Mass Index (BMI) 26.9 Intake & Output: Intake and Output for Last 24 Hours 03/19/22 03/20/22 03/21/22 23:59 23:59 23:59 Intake Total 1310 / 1310 720 / 720 Output Total 0 / 0 1300 / 1300 Balance 1310 / 1310 -580 / -580 Lab / Micro Data Result Diagrams: 03/21/22 05:10 03/21/22 05:10 Labs: Laboratory Results - last 24 hr 03/15/22 07:16: Stool Neutral Fats Normal, Stool Total Fats Normal, Stool Calprotectin 276 H 03/20/22 15:11: POC Glucose 152 H 03/20/22 17:07: POC Glucose 140 H 03/20/22 21:16: POC Glucose 251 H 03/21/22 05:10: PT 18.2 H, INR 1.5 03/21/22 05:10: WBC 11.1 H, RBC 2.59 L, Hgb 8.1 L, Hct 25.4 L, MCV 98.1 H, MCH 31.3, MCHC 31.9 L, RDW Std Deviation 66.0 H, RDW Coeff of Nguyen 19.1 H, Plt Count 144 L, MPV 11.1, Immature Gran % (Auto) 1.100 H, Neut % (Auto) 86.6 H, Lymph % (Auto) 3.9 L, [place] % (Auto) 7.5, Eos % (Auto) 0.7, Baso % (Auto) 0.2, Absolute Neuts (auto) 9.7 H, Absolute Lymphs (auto) 0.43 L, Nucleated RBC % 0.2, Differential Comment SCANNED, Polychromasia 1+, Anisocytosis 2+, Microcytosis 1+, Macrocytosis 1+, Ovalocytes RARE 03/21/22 05:10: Sodium 133 L, Potassium 4.2, Chloride 100, Carbon Dioxide 26.0, Anion Gap 7, BUN 71 H, Creatinine 3.62 H, Estim Creat Clear Calc 15.98, Est GFR (MDRD) Af Amer 21 L, Est GFR (MDRD) Non-Af 17 L, BUN/Creatinine Ratio 19.6, Glucose 240 H, Calcium 8.2 L 03/21/22 05:44: POC Glucose 215 H 03/21/22 08:14: POC Glucose 210 H 03/21/22 11:21: POC Glucose 232 H Micro: Microbiology 03/17/22 09:07 Sputum, Expectorated/Coughed Gram Stain - Final 03/17/22 09:07 Sputum, Expectorated/Coughed Respiratory Culture - Final Mixed normal respiratory marquis. No Streptococcus pneumoniae, beta-hemolytic Streptococcus or Staphylococcus aureus isolated. 03/17/22 10:50 Stool Stool Lactoferrin - Final 03/17/22 05:45 Mucosa - Nasopharyngeal Respiratory Panel (PCR) - Final Rhinovirus 03/17/22 02:15 Nasal Secretion SARS-CoV-2 & FLU Antigen (Rapid) - Final 03/10/22 16:10 Stool Enteric Bacteriology - Final 03/10/22 16:10 Stool C. difficile DNA Amplification - Final 03/02/22 08:05 Blood Culture (Wb) - Neck Blood Culture - Final No growth in 5 days. 03/02/22 08:10 Blood Culture (Wb) - Right Forearm Blood Culture - Final No growth in 5 days. 03/04/22 09:40 Stool Stool Occult Blood (CANDIDA) - Final Occult Blood Positive 03/02/22 18:20 Stool C. difficile DNA Amplification - Final 03/01/22 21:30 Mucosa - Nasopharyngeal Respiratory Panel (PCR) - Final 03/01/22 22:00 Urine Catheter - Catheter Legionella Antigen - Final 03/01/22 22:00 Urine Catheter - Catheter Streptococcus pneumoniae Antigen (M - Final Radiography Diagnostic Testing: Radiology Impression Chest X-Ray 03/20/22 05:25 IMPRESSION: Stable examination. Electronically Signed: Akil Davis MD at 14:44 EST , Rhythm Strip Rhythm Strip: Sinus Rhythm Rate: 82 Physical Exam Narrative Neurovascular status unchanged from previous visit. Improved edema to bilateral lower extremity. Less drainage to leg ulcerations. Ischemic ulcerations to the distal tuft of the left second third and first digit appear to be dry and stable at this point. Resolved signs of infection stable ischemic changes to right second digit. Stable ischemic wound to plantar heel bilaterally and plantar fifth metatarsal head bilaterally. Skin is atrophic bilateral. No acute worsening to the feet bilateral- feet and ankles bilateral are stable at this time. 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 Feet are stable at this time with chronic changes. Patient is significant chronic PAD bilateral lower extremity. Vascular surgery/Dr. Santo - underwent percutaneous intervention LLE 03/13/22. Peroneal flow noted. Vascular surgery going to reattempt intervention in a couple weeks, then will proceed with definitive amputation if intervention successful. Patient upset that definitive amputation cannot be performed now, discussed that performing any amputation on either side would fail to heal due to his vascular status and ultimately result in a more proximal amputation. Discussed that Dr. Santo is going to re-attempt revascularization, but if this fails, then more proximal amputation may be the only option. 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 In the meantime we will continue local wound care with dressing changes, offloading, and observe for any acute degeneration of the wound sites. For d/c planning: Recommend SNF/extended care facility - discussed with patient in detail today - patient appealing discharge. Dressing changes should be daily. Cleansing foot with soap/water, dressing wounds with betadine paint and DSD. Patient should remain non-weightbearing to wounds bilaterally. I will plan to see patient weekly upon discharge to ensure no degeneration of wounds requiring urgent treatment. (2) Peripheral vascular disease, unspecified: (3) Non-pressure chronic ulcer of other part of left foot with fat layer exposed: (4) Diabetic infection of right foot:
--- NOTE | 2022-03-21 13:33 | PN.HOSP_ITS ---
Subjective Subjective Doing well, no issues overnight. Objective Data Objective Data Vital Signs: Vital Signs Temp Pulse Resp BP Pulse Ox O2 Del Method O2 Flow Rate 97.5 F L 101 H 20 H 95/62 100 Nasal Cannula 2 03/21/22 08:10 03/21/22 11:38 03/21/22 11:38 03/21/22 08:10 03/21/22 08:10 03/21/22 08:28 03/21/22 08:28 FiO2 30 03/21/22 08:10 Oxygen Flow Rate (L/min) 2 Oxygen Delivery Method Nasal Cannula Weight: 168 lb 10.458 oz Body Mass Index (BMI) 26.9 Intake & Output: Intake and Output for Last 24 Hours 03/20/22 03/21/22 03/22/22 03:59 03:59 03:59 Intake Total 1210 / 1210 720 / 720 Output Total 1300 / 1300 Balance 1210 / 1210 -580 / -580 Lab / Micro Data Result Diagrams: 03/21/22 05:10 03/21/22 05:10 Labs: Laboratory Results - last 24 hr 03/20/22 15:11: POC Glucose 152 H 03/20/22 17:07: POC Glucose 140 H 03/20/22 21:16: POC Glucose 251 H 03/21/22 05:10: PT 18.2 H, INR 1.5 03/21/22 05:10: WBC 11.1 H, RBC 2.59 L, Hgb 8.1 L, Hct 25.4 L, MCV 98.1 H, MCH 31.3, MCHC 31.9 L, RDW Std Deviation 66.0 H, RDW Coeff of Nguyen 19.1 H, Plt Count 144 L, MPV 11.1, Immature Gran % (Auto) 1.100 H, Neut % (Auto) 86.6 H, Lymph % (Auto) 3.9 L, [place] % (Auto) 7.5, Eos % (Auto) 0.7, Baso % (Auto) 0.2, Absolute Neuts (auto) 9.7 H, Absolute Lymphs (auto) 0.43 L, Nucleated RBC % 0.2, Differential Comment SCANNED, Polychromasia 1+, Anisocytosis 2+, Microcytosis 1+, Macrocytosis 1+, Ovalocytes RARE 03/21/22 05:10: Sodium 133 L, Potassium 4.2, Chloride 100, Carbon Dioxide 26.0, Anion Gap 7, BUN 71 H, Creatinine 3.62 H, Estim Creat Clear Calc 15.98, Est GFR (MDRD) Af Amer 21 L, Est GFR (MDRD) Non-Af 17 L, BUN/Creatinine Ratio 19.6, Glucose 240 H, Calcium 8.2 L 03/21/22 05:44: POC Glucose 215 H 03/21/22 08:14: POC Glucose 210 H 03/21/22 11:21: POC Glucose 232 H Micro: Microbiology 03/17/22 09:07 Sputum, Expectorated/Coughed Gram Stain - Final 03/17/22 09:07 Sputum, Expectorated/Coughed Respiratory Culture - Final Mixed normal respiratory marquis. No Streptococcus pneumoniae, beta-hemolytic Streptococcus or Staphylococcus aureus isolated. 03/17/22 10:50 Stool Stool Lactoferrin - Final 03/17/22 05:45 Mucosa - Nasopharyngeal Respiratory Panel (PCR) - Final Rhinovirus 03/17/22 02:15 Nasal Secretion SARS-CoV-2 & FLU Antigen (Rapid) - Final 03/10/22 16:10 Stool Enteric Bacteriology - Final 03/10/22 16:10 Stool C. difficile DNA Amplification - Final 03/02/22 08:05 Blood Culture (Wb) - Neck Blood Culture - Final No growth in 5 days. 03/02/22 08:10 Blood Culture (Wb) - Right Forearm Blood Culture - Final No growth in 5 days. 03/04/22 09:40 Stool Stool Occult Blood (CANDIDA) - Final Occult Blood Positive 03/02/22 18:20 Stool C. difficile DNA Amplification - Final 03/01/22 21:30 Mucosa - Nasopharyngeal Respiratory Panel (PCR) - Final 03/01/22 22:00 Urine Catheter - Catheter Legionella Antigen - Final 03/01/22 22:00 Urine Catheter - Catheter Streptococcus pneumoniae Antigen (M - Final Radiography Diagnostic Testing: Radiology Impression Chest X-Ray 03/20/22 05:25 IMPRESSION: Stable examination. Electronically Signed: Akil Davis MD at 14:44 EST , Rhythm Strip Rhythm Strip: Sinus Rhythm Rate: 82 Physical Exam Narrative General: Alert, Oriented x3, Cooperative but argumentative, No apparent distress HEENT: Atraumatic, PERRLA, EOMI, Normocephalic Oral: Moist Mucosa Neck: Supple, No JVD Lungs: Diminished, Normal air movement, No rhonchi, No wheeze, rales Cardiovascular: Regular rate, Regular Rhythm, Normal S1, Normal S2, murmur Abdomen: Soft, Non Tender, Non-Distended, No Hepato-splenomegaly Extremities: Edema, Capillary Refill Less than 3 Seconds Skin: Legs are currently wrapped evidence of skin breakdown Musculoskeletal: No Tenderness to Palpation of Joints or Extremities Neurological: Cranial nerves II-XII grossly intact, Motor Exam 5/5 strength throughout, Sensory exam intact to light touch and pain Psych/Mental Status: Flat affect, Appropriate Assessment & Plan Assessment/Plan (1) Diarrhea: (2) Septic shock: (3) PVD (peripheral vascular disease): (4) GI bleed: (5) Esophageal varices: (6) Hypoxia: (7) Chronic kidney disease, stage 3b: (8) Acute renal failure (ARF): QUALIFIERS: Acute renal failure type: unspecified Qualified Code(s): N17.9 - Acute kidney failure, unspecified PLAN: Plan 1.? 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 Appreciate podiatry assistance ? Continue with infectious disease recommendations, Cipro, Flagyl, IV vancomycin with dialysis ? Stabilized on the midodrine no longer requiring any pressor support with dialysis ? He is currently on dialysis for his DAVIS he does not normally have dialysis at home.? Appreciate nephrology's assistance ? We will monitor his blood sugars and adjust as necessary ? Vascular did perform intervention on 03/13/2022 with angioplasty of the left plan will be for another vascular surgery in April to try to improve blood flow further and then proceed with amputation. ? He is currently disputing his discharge despite multiple explanations as to why the procedures have to be staged the way they are 2.? Paroxysmal A. fib/CAD status post CABG and stent/pulmonary hypertension/moderate aortic stenosis/chronic systolic CHF/peripheral artery disease ? Currently on Coumadin for his A. fib ? Can continue with aspirin, Lipitor ? We will hold any blood pressure medication secondary to his hypotension 3.? Anemia with Hemoccult positive stools from a rectal bleed ? Continue with PPI and will transfuse as necessary ? Hemoglobin is stable, GI was consulted and an EGD was performed on 03/15/2022, he does have esophageal varices as well as an oozing gastric ulcer and a rectal ulcer 4. Chronic hypoxia ? he does not require any oxygen however he refuses to come off because he thinks he needs it ? It is felt that this is potentially due to panic attacks however he refuses to take anything for his anxiety and was furious when he was given Ativan. DVT: Coumadin and heparin as he still subtherapeutic Charges/Coding Visit Charges Inpatient E&M: 19657 Subs Hosp L2
--- NOTE | 2022-03-21 13:55 | WOUNDNOTE ---
Dr Fan had been in to change dressings to bilateral lower legs/feet. dressings intact at this time. will continue to monitor.
[2022-03-21] MEDS: guaiFENesin/D-Methorphan TAB.SR.12H 1 TABLET PO ×2 (15:30→22:56)
[2022-03-21 17:25] LABS: Bedside Glucose 125 mg/dL (74-106)
[2022-03-21] MEDS: Jantoven 2 MG Tablet PO (18:03)
[2022-03-21] MEDS: Ciprofloxacin 500 MG Tablet PO (22:54)
[2022-03-21] MEDS: Acetaminophen 325 MG Tablet 650 MG PO (22:56)
[2022-03-21] MEDS: Atorvastatin Calcium 80 MG Tablet PO (22:56)
[2022-03-21] MEDS: MELATONIN 3 MG TABLET PO (22:57)
[2022-03-21] MEDS: Insulin NPH Human 100 UNITS/ML PEN 8 UNITS SC (23:01)
[2022-03-21 23:40] LABS: Bedside Glucose 103 mg/dL (74-106)
[2022-03-22] VITALS (16 sets, daily range): BP systolic 85–108; BP diastolic 53–65; PULSE 61–99; RESP 15–18; TEMP 36.4–37.1; O2SAT 95–100
[2022-03-22] MEDS: Acetaminophen 325 MG Tablet 650 MG PO ×4 (04:54→18:42)
[2022-03-22] MEDS: metroNIDAZOLE 500 MG Tablet PO ×3 (05:00→20:58)
[2022-03-22] MEDS: Heparin Injection (Vial) 5,000 UNIT/ML VIAL 5000 UNIT SC (05:00)
[2022-03-22] MEDS: Menthol/Lanolin/Calamine/Znox 113 GM Tube 1 APPLIC TOPICAL ×3 (05:00→21:01)
[2022-03-22 06:38] LABS: Absolute Lymphocyte Count 0.42 X10^3/uL (0.83-4.51); Absolute Neutrophil Count 9.7 X10^3/uL (2.0-7.7); Basophil# 0.02 X10^3/uL; Basophil% 0.2 % (0-1); Eosinophil# 0.06 X10^3/uL; Eosinophils% 0.5 % (0-5); Hematocrit 25.8 % (40-54); Hemoglobin 7.8 g/dL (13.0-16.5); Lymphocyte # 0.42 X10^3/ul (0.83-4.51); Lymphocyte % 3.7 % (19-41); Mean Corp Hgb Conc 30.2 g/dL (32-36); Mean Corpuscular Hgb 29.7 pg (27.0-32.0); Mean Corpuscular Volume 98.1 fL (80-94); Mean Platelet Vol. 11.3 fl (6.2-12.0); Monocyte# 0.99 X10^3/uL; Monocyte% 8.8 % (0-10); NRBC Flagged by Analyzer 0.2 % (0-5); Neutrophil # 9.65 X10^3/uL (2.7-7.7); Neutrophil % 85.9 % (47-70); POSITIVE DIFFERENTIAL YES; POSITIVE MORPHOLOGY YES; Platelet Count 147 K/mm3 (150-450); RBC Distribution Width SD 67.4 fl (35.1-43.9); Red Blood Count 2.63 M/mm3 (4.6-6.2); White Blood Count 11.2 K/mm3 (4.4-11.0)
[2022-03-22 06:48] LABS: International Normalized Ratio 2.1; Prothrombin Time (Protime)PT. 23.3 SECONDS (11.7-14.9)
[2022-03-22 06:52] LABS: Differential Indicated SCAN CRITERIA MET
[2022-03-22 06:58] LABS: Differential Comment SCANNED; Polychromasia 1+
[2022-03-22 06:59] LABS: Anisocytosis 2+; Macrocytosis 1+; Microcytosis 1+
[2022-03-22 07:02] LABS: Albumin, Serum 2.1 g/dL (3.2-5.0); Anion Gap 8 (5-15); BUN 87 mg/dL (7-18); BUN/Creat Ratio 19.8 RATIO (10-20); Calcium,Total 8.6 mg/dL (8.5-10.1); Chloride 99 mmol/L (98-107); Creatinine, Serum 4.39 mg/dL (0.70-1.30); EST Glomerular Filtration Rate 14 mL/min (>60); Est Glom Filt Rate - Afr Amer 17 mL/min (>60); Estimated Creatinine Clearance 13.17 ml/min; Glucose 93 mg/dL (74-106); Phosphorus 3.3 mg/dL (2.5-4.9); Potassium 4.2 mmol/L (3.5-5.1); Sodium Level 133 mmol/L (136-145)
[2022-03-22 07:12] LABS: Vancomycin, Random Level 16.1 ug/mL (0.0-15.0)
--- NOTE | 2022-03-22 08:41 | PCM.RX.CS ---
Consult Pharmacy has been consulted to manage selected antiobiotic: Vancomycin Type of Consult: Follow-up Suspected Infection: Skin/Soft tissue Prior Doses of Antibiotics Received/Current Regimen: 03/15/22 500mg x1 Labs: Sodium 133 mmol/L (136-145) L 03/22/22 05:55 Potassium 4.2 mmol/L (3.5-5.1) 03/22/22 05:55 Chloride 99 mmol/L (98-107) 03/22/22 05:55 Carbon Dioxide 26.0 mmol/L (21.0-32.0) 03/22/22 05:55 Anion Gap 8 (5-15) 03/22/22 05:55 BUN 87 mg/dL (7-18) H 03/22/22 05:55 Creatinine 4.39 mg/dL (0.70-1.30) H 03/22/22 05:55 Est GFR (MDRD) Af Amer 17 mL/min (>60) L 03/22/22 05:55 Est GFR (MDRD) Non-Af 14 mL/min (>60) L 03/22/22 05:55 BUN/Creatinine Ratio 19.8 RATIO (10-20) 03/22/22 05:55 Glucose 93 mg/dL (74-106) 03/22/22 05:55 Random Vancomycin 16.1 ug/mL (0.0-15.0) H 03/22/22 05:55 Microbiology: Microbiology 03/17/22 09:07 Sputum, Expectorated/Coughed Gram Stain - Final 03/17/22 09:07 Sputum, Expectorated/Coughed Respiratory Culture - Final Mixed normal respiratory marquis. No Streptococcus pneumoniae, beta-hemolytic Streptococcus or Staphylococcus aureus isolated. 03/17/22 10:50 Stool Stool Lactoferrin - Final 03/17/22 05:45 Mucosa - Nasopharyngeal Respiratory Panel (PCR) - Final Rhinovirus 03/17/22 02:15 Nasal Secretion SARS-CoV-2 & FLU Antigen (Rapid) - Final 03/10/22 16:10 Stool Enteric Bacteriology - Final 03/10/22 16:10 Stool C. difficile DNA Amplification - Final 03/02/22 08:05 Blood Culture (Wb) - Neck Blood Culture - Final No growth in 5 days. 03/02/22 08:10 Blood Culture (Wb) - Right Forearm Blood Culture - Final No growth in 5 days. 03/04/22 09:40 Stool Stool Occult Blood (CANDIDA) - Final Occult Blood Positive 03/02/22 18:20 Stool C. difficile DNA Amplification - Final 03/01/22 21:30 Mucosa - Nasopharyngeal Respiratory Panel (PCR) - Final 03/01/22 22:00 Urine Catheter - Catheter Legionella Antigen - Final 03/01/22 22:00 Urine Catheter - Catheter Streptococcus pneumoniae Antigen (M - Final Weight used for dosin kg Estimated Creatinine Clearance: 13 Goal Trough: 15-20 mcg/mL Pharmacy Plan for Drug Dosing: Give 500mg x1 on 03/22/22 after HD. random level 03/24/22 at 0600 Pharmacy Service will continue to monitor and adjust dosing as required. Follow-Up Labs: Trough Other Labs to be done on [date and time ordered]: random level 03/24/22
[2022-03-22 08:46] LABS: Bedside Glucose 81 mg/dL (74-106)
[2022-03-22] MEDS: Midodrine HCl 5 MG Tablet 10 MG PO ×3 (09:02→18:44)
[2022-03-22] MEDS: guaiFENesin/D-Methorphan TAB.SR.12H 1 TABLET PO ×2 (09:03→20:59)
[2022-03-22] MEDS: Aspirin E.C. 81 MG Tablet PO (09:08)
[2022-03-22] MEDS: Juven (unflavored) Packet 1 PACKET PO ×2 (09:08→18:42)
[2022-03-22] MEDS: Clopidogrel Bisulfate 75 MG Tablet PO (09:08)
[2022-03-22] MEDS: Loperamide 2 MG Capsule PO ×3 (09:08→21:00)
[2022-03-22] MEDS: Pantoprazole Sodium 40 MG Tablet PO ×2 (09:08→20:59)
--- NOTE | 2022-03-22 10:48 | PCM.PN.REN ---
Subjective Subjective Resting quietly, no overnight events. Objective Data Objective Data Vital Signs: Vital Signs Temp Pulse Resp BP Pulse Ox O2 Del Method O2 Flow Rate 97.5 F L 93 17 89/65 L 100 Nasal Cannula 4 03/22/22 08:59 03/22/22 08:59 03/22/22 08:59 03/22/22 08:59 03/22/22 08:59 03/22/22 08:59 03/22/22 08:59 FiO2 30 03/22/22 08:59 Oxygen Flow Rate (L/min) 4 Oxygen Delivery Method Nasal Cannula Weight: 78.4 kg Body Mass Index (BMI) 26.9 Intake & Output: Intake and Output for Last 24 Hours 03/20/22 03/21/22 03/22/22 23:59 23:59 23:59 Intake Total 720 / 720 480 / 480 120 / 120 Output Total 1300 / 1300 Balance -580 / -580 480 / 480 120 / 120 Lab / Micro Data Result Diagrams: 03/22/22 05:55 03/22/22 05:55 Labs: Laboratory Results - last 24 hr 03/21/22 11:21: POC Glucose 232 H 03/21/22 17:06: POC Glucose 125 H 03/21/22 22:45: POC Glucose 103 03/22/22 05:55: PT 23.3 H, INR 2.1 03/22/22 05:55: Random Vancomycin 16.1 H 03/22/22 05:55: Sodium 133 L, Potassium 4.2, Chloride 99, Carbon Dioxide 26.0, Anion Gap 8, BUN 87 H, Creatinine 4.39 H, Estim Creat Clear Calc 13.17, Est GFR (MDRD) Af Amer 17 L, Est GFR (MDRD) Non-Af 14 L, BUN/Creatinine Ratio 19.8, Glucose 93, Calcium 8.6, Phosphorus 3.3, Albumin 2.1 L 03/22/22 05:55: WBC 11.2 H, RBC 2.63 L, Hgb 7.8 L, Hct 25.8 L, MCV 98.1 H, MCH 29.7, MCHC 30.2 L D, RDW Std Deviation 67.4 H, RDW Coeff of Nguyen 19.0 H, Plt Count 147 L, MPV 11.3, Immature Gran % (Auto) 0.900, Neut % (Auto) 85.9 H, Lymph % (Auto) 3.7 L, [place] % (Auto) 8.8, Eos % (Auto) 0.5, Baso % (Auto) 0.2, Absolute Neuts (auto) 9.7 H, Absolute Lymphs (auto) 0.42 L, Nucleated RBC % 0.2, Differential Comment SCANNED, Polychromasia 1+, Anisocytosis 2+, Microcytosis 1+, Macrocytosis 1+ 03/22/22 08:10: POC Glucose 81 Micro: Microbiology 03/17/22 09:07 Sputum, Expectorated/Coughed Gram Stain - Final 03/17/22 09:07 Sputum, Expectorated/Coughed Respiratory Culture - Final Mixed normal respiratory marquis. No Streptococcus pneumoniae, beta-hemolytic Streptococcus or Staphylococcus aureus isolated. 03/17/22 10:50 Stool Stool Lactoferrin - Final 03/17/22 05:45 Mucosa - Nasopharyngeal Respiratory Panel (PCR) - Final Rhinovirus 03/17/22 02:15 Nasal Secretion SARS-CoV-2 & FLU Antigen (Rapid) - Final 03/10/22 16:10 Stool Enteric Bacteriology - Final 03/10/22 16:10 Stool C. difficile DNA Amplification - Final 03/02/22 08:05 Blood Culture (Wb) - Neck Blood Culture - Final No growth in 5 days. 03/02/22 08:10 Blood Culture (Wb) - Right Forearm Blood Culture - Final No growth in 5 days. 03/04/22 09:40 Stool Stool Occult Blood (CANDIDA) - Final Occult Blood Positive 03/02/22 18:20 Stool C. difficile DNA Amplification - Final 03/01/22 21:30 Mucosa - Nasopharyngeal Respiratory Panel (PCR) - Final 03/01/22 22:00 Urine Catheter - Catheter Legionella Antigen - Final 03/01/22 22:00 Urine Catheter - Catheter Streptococcus pneumoniae Antigen (M - Final Rhythm Strip Rhythm Strip: Sinus Rhythm Rate: 82 Physical Exam Narrative Alert and oriented x3, no apparent distress Lung sounds audibly coarse, with coarse cough S1, S2, RRR Abdomen soft, nontender No significant lower extremity pitting edema. Edema to bilateral arms. Dressings clean dry and intact to bilateral feet Left internal jugular tunneled HD catheter dressing clean, dry and intact Assessment & Plan Assessment/Plan (1) Acute renal failure (ARF): QUALIFIERS: Acute renal failure type: unspecified Qualified Code(s): N17.9 - Acute kidney failure, unspecified (2) Chronic kidney disease, stage 3b: (3) Hypotension: (4) Anemia: (5) Ischemic cardiomyopathy: (6) Peripheral vascular disease, unspecified: PLAN: Plan - dialysis dependent DAVIS on CKD. Patient has been essentially anuric. In hospital patient has been on a Saturday dialysis schedule. -No noted renal recovery at this time. He still has edema in his arms and last chest x-ray showed small bilateral pleural effusions. - Prior baseline serum creatinine had been around 1.50 mg/dL (01/23/2022). Suspect the patient has underlying diabetic kidney disease or nephrosclerosis related to PAD. - DAVIS is secondary to ischemic ATN from circulatory shock/sepsis. The patient was started on dialysis on 03/02/2022, serum creatinine 9.52 mg/dL. -We will continue to monitor for any renal recovery. -SCr 4.39 mg/dL today. Patient to have dialysis today. Patient to receive midodrine at start of each dialysis and can also receive 10 mg midodrine during HD for intradialytic hypotension as needed. -Hypotension thought to be related to sepsis. The patient also has ischemic cardiomyopathy, EF 35%. Continue midodrine 10 mg 3 times daily, bps improved. - GI consulted for anemia and diarrhea. Current hemoglobin 7.8, hemoglobin has ranged 7 to 8 g/dL this admission. Had colonoscopy with findings of hemorrhoids, single ulcer in rectum treated with heater probe. ?EGD which showed grade 2 esophageal varices and oozing gastric ulcer with adherent clot which was treated with monopolar probe as well as gastric antral vascular ectasias without bleeding which was biopsied.? Second portion of duodenum was normal. Started back on Coumadin. - Status post angiogram of the lower extremities per vascular. - discharge planning in progress. Possibly d/c to [facility] for therapy with transportation to/from dialysis. HD arranged at [facility].
[2022-03-22] MEDS: Insulin Lispro 100 UNIT/ML INSULN.PEN SC (11:20)
[2022-03-22 12:35] LABS: Bedside Glucose 170 mg/dL (74-106)
--- NOTE | 2022-03-22 13:00 | CASEMGMT ---
KALEB SIMPSON[facility] disagreement with discontinuation of inpt services. Dr. King notified. Call placed to [facility] to confirm results and obtain further explanation of next steps. There is not a process for [facility] to submit for a re-review of the medical record. Josesito Bolanos RN CM
--- NOTE | 2022-03-22 13:10 | CASEMGMT ---
SW was informed the results of patient's appeal is in and the company reviewing the case feels patient is not ready for discharge. OSKAR notified dispatch officer, physician, and SWCC. Purvi BROWN
--- NOTE | 2022-03-22 14:37 | CASEMGMT ---
OSKAR called [facility] and spoke with Birnda. OSKAR let Brinda know that patient will not be at their facility for dialysis tomorrow. Purvi Walker [employer]
--- NOTE | 2022-03-22 16:51 | PCM.PN.HOSP ---
Subjective Subjective Doing well, no issues overnight. Objective Data Objective Data Vital Signs: Vital Signs Temp Pulse Resp BP Pulse Ox O2 Del Method O2 Flow Rate 98.5 F 86 15 108/62 97 Nasal Cannula 4 03/22/22 15:12 03/22/22 15:12 03/22/22 15:12 03/22/22 15:12 03/22/22 15:12 03/22/22 15:12 03/22/22 15:12 FiO2 30 03/22/22 15:12 Oxygen Flow Rate (L/min) 4 Oxygen Delivery Method Nasal Cannula Weight: 172 lb 13.478 oz Body Mass Index (BMI) 26.9 Intake & Output: Intake and Output for Last 24 Hours 03/21/22 03/22/22 03/23/22 03:59 03:59 03:59 Intake Total 720 / 720 480 / 480 480 / 480 Output Total 1300 / 1300 Balance -580 / -580 480 / 480 480 / 480 Lab / Micro Data Result Diagrams: 03/22/22 05:55 03/22/22 05:55 Labs: Laboratory Results - last 24 hr 03/21/22 17:06: POC Glucose 125 H 03/21/22 22:45: POC Glucose 103 03/22/22 05:55: PT 23.3 H, INR 2.1 03/22/22 05:55: Random Vancomycin 16.1 H 03/22/22 05:55: Sodium 133 L, Potassium 4.2, Chloride 99, Carbon Dioxide 26.0, Anion Gap 8, BUN 87 H, Creatinine 4.39 H, Estim Creat Clear Calc 13.17, Est GFR (MDRD) Af Amer 17 L, Est GFR (MDRD) Non-Af 14 L, BUN/Creatinine Ratio 19.8, Glucose 93, Calcium 8.6, Phosphorus 3.3, Albumin 2.1 L 03/22/22 05:55: WBC 11.2 H, RBC 2.63 L, Hgb 7.8 L, Hct 25.8 L, MCV 98.1 H, MCH 29.7, MCHC 30.2 L D, RDW Std Deviation 67.4 H, RDW Coeff of Nguyen 19.0 H, Plt Count 147 L, MPV 11.3, Immature Gran % (Auto) 0.900, Neut % (Auto) 85.9 H, Lymph % (Auto) 3.7 L, [place] % (Auto) 8.8, Eos % (Auto) 0.5, Baso % (Auto) 0.2, Absolute Neuts (auto) 9.7 H, Absolute Lymphs (auto) 0.42 L, Nucleated RBC % 0.2, Differential Comment SCANNED, Polychromasia 1+, Anisocytosis 2+, Microcytosis 1+, Macrocytosis 1+ 03/22/22 08:10: POC Glucose 81 03/22/22 11:20: POC Glucose 170 H Micro: Microbiology 03/17/22 09:07 Sputum, Expectorated/Coughed Gram Stain - Final 03/17/22 09:07 Sputum, Expectorated/Coughed Respiratory Culture - Final Mixed normal respiratory marquis. No Streptococcus pneumoniae, beta-hemolytic Streptococcus or Staphylococcus aureus isolated. 03/17/22 10:50 Stool Stool Lactoferrin - Final 03/17/22 05:45 Mucosa - Nasopharyngeal Respiratory Panel (PCR) - Final Rhinovirus 03/17/22 02:15 Nasal Secretion SARS-CoV-2 & FLU Antigen (Rapid) - Final 03/10/22 16:10 Stool Enteric Bacteriology - Final 03/10/22 16:10 Stool C. difficile DNA Amplification - Final 03/02/22 08:05 Blood Culture (Wb) - Neck Blood Culture - Final No growth in 5 days. 03/02/22 08:10 Blood Culture (Wb) - Right Forearm Blood Culture - Final No growth in 5 days. 03/04/22 09:40 Stool Stool Occult Blood (CANDIDA) - Final Occult Blood Positive 03/02/22 18:20 Stool C. difficile DNA Amplification - Final 03/01/22 21:30 Mucosa - Nasopharyngeal Respiratory Panel (PCR) - Final 03/01/22 22:00 Urine Catheter - Catheter Legionella Antigen - Final 03/01/22 22:00 Urine Catheter - Catheter Streptococcus pneumoniae Antigen (M - Final Rhythm Strip Rhythm Strip: Sinus Rhythm Rate: 82 Physical Exam Narrative General: Alert, Oriented x3, Cooperative, No apparent distress HEENT: Atraumatic, PERRLA, EOMI, Normocephalic Oral: Moist Mucosa Neck: Supple, No JVD Lungs: Diminished, Normal air movement, No rhonchi, No wheeze, rales Cardiovascular: Regular rate, Regular Rhythm, Normal S1, Normal S2, murmur Abdomen: Soft, Non Tender, Non-Distended, No Hepato-splenomegaly Extremities: Edema, Capillary Refill Less than 3 Seconds Skin: Legs are currently wrapped evidence of skin breakdown Musculoskeletal: No Tenderness to Palpation of Joints or Extremities Neurological: Cranial nerves II-XII grossly intact, Motor Exam 5/5 strength throughout, Sensory exam intact to light touch and pain Psych/Mental Status: Flat affect, Appropriate Assessment & Plan Assessment/Plan (1) Diarrhea: (2) Septic shock: (3) PVD (peripheral vascular disease): (4) GI bleed: (5) Esophageal varices: (6) Hypoxia: (7) Chronic kidney disease, stage 3b: (8) Acute renal failure (ARF): QUALIFIERS: Acute renal failure type: unspecified Qualified Code(s): N17.9 - Acute kidney failure, unspecified PLAN: Plan 1.? 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 Appreciate podiatry assistance ? Continue with infectious disease recommendations, Cipro, Flagyl, IV vancomycin with dialysis ? Stabilized on the midodrine no longer requiring any pressor support with dialysis ? He is currently on dialysis for his DAVIS he does not normally have dialysis at home.? Appreciate nephrology's assistance ? We will monitor his blood sugars and adjust as necessary ? Vascular did perform intervention on 03/13/2022 with angioplasty of the left plan will be for another vascular surgery in April to try to improve blood flow further and then proceed with amputation. ?He continues to remain stable for discharge to SNF 2.? Paroxysmal A. fib/CAD status post CABG and stent/pulmonary hypertension/moderate aortic stenosis/chronic systolic CHF/peripheral artery disease ? Currently on Coumadin for his A. fib ? Can continue with aspirin, Lipitor ? We will hold any blood pressure medication secondary to his hypotension 3.? Anemia with Hemoccult positive stools from a rectal bleed ? Continue with PPI and will transfuse as necessary ? Hemoglobin is stable, GI was consulted and an EGD was performed on 03/15/2022, he does have esophageal varices as well as an oozing gastric ulcer and a rectal ulcer 4. Chronic hypoxia ? he does not require any oxygen however he refuses to come off because he thinks he needs it ? It is felt that this is potentially due to panic attacks however he refuses to take anything for his anxiety and was furious when he was given Ativan. DVT: Coumadin Charges/Coding Visit Charges Inpatient E&M: 22793 Subs Hosp L2
[2022-03-22 17:16] LABS: Bedside Glucose 105 mg/dL (74-106)
[2022-03-22] MEDS: Vancomycin IV 500 MG/100 ML BAG 100 MG IV (18:45)
[2022-03-22] MEDS: Jantoven 2 MG Tablet PO (19:03)
[2022-03-22] MEDS: Atorvastatin Calcium 80 MG Tablet PO (20:59)
[2022-03-22] MEDS: Ciprofloxacin 500 MG Tablet PO (20:59)
[2022-03-22] MEDS: Insulin NPH Human 100 UNITS/ML PEN 8 UNITS SC (22:43)
[2022-03-23] VITALS (20 sets, daily range): BP systolic 88–101; BP diastolic 36–74; PULSE 85–106; RESP 14–22; TEMP 35.9–36.7; O2SAT 94–100
[2022-03-23 02:10] LABS: Bedside Glucose 118 mg/dL (74-106)
[2022-03-23] MEDS: LORazepam 1 MG Tablet PO (02:10)
[2022-03-23] MEDS: Menthol/Lanolin/Calamine/Znox 113 GM Tube 1 APPLIC TOPICAL ×2 (05:14→20:44)
[2022-03-23] MEDS: metroNIDAZOLE 500 MG Tablet PO ×2 (05:14→20:41)
--- NOTE | 2022-03-23 05:15 | NURSING ---
Dialysis port was ripped out by patient, at this time in the morning the RN found the dialysis catheter lying on patients lap. Pressure was immediately held for 15 minutes, MD was notified as well as soaking pits supervisor who came up to the room. Patient was cleaned up, dressing applied to chest w/ sandbag for pressure. The dialysis catheter looks intact and was placed in a bag. Patient seems in no distress and was not aware the catheter was ripped out. Will continue to monitor.
--- NOTE | 2022-03-23 06:50 | NURSING ---
pattern generator operator was called for Anahy or his control inspector, Michael is control inspector today for surgery to have patients dialysis port replaced. Not available to contact until after 7am
[2022-03-23 06:55] LABS: Bedside Glucose 84 mg/dL (74-106)
--- NOTE | 2022-03-23 08:51 | PN.SURG_ITS ---
Subjective Subjective Patient was then pulled all his IV access and dialysis catheter last night. Objective Data Objective Data Vital Signs: Vital Signs Temp Pulse Resp BP Pulse Ox O2 Del Method O2 Flow Rate 98.1 F 85 16 92/67 96 Nasal Cannula 2 03/23/22 04:00 03/23/22 04:00 03/23/22 04:00 03/23/22 04:00 03/23/22 04:00 03/23/22 08:47 03/23/22 08:47 FiO2 30 03/22/22 15:12 Oxygen Flow Rate (L/min) 2 Oxygen Delivery Method Nasal Cannula Weight: 172 lb 13.478 oz Body Mass Index (BMI) 26.9 Intake & Output: Intake and Output for Last 24 Hours 03/21/22 03/22/22 03/23/22 23:59 23:59 23:59 Intake Total 480 / 480 580 / 580 Output Total 1500 / 1500 0 / 0 Balance 480 / 480 -920 / -920 0 / 0 Lab / Micro Data Result Diagrams: 03/22/22 05:55 03/22/22 05:55 Labs: Laboratory Results - last 24 hr 03/22/22 11:20: POC Glucose 170 H 03/22/22 16:47: POC Glucose 105 03/22/22 22:40: POC Glucose 118 H 03/23/22 06:28: POC Glucose 84 Micro: Microbiology 03/17/22 09:07 Sputum, Expectorated/Coughed Gram Stain - Final 03/17/22 09:07 Sputum, Expectorated/Coughed Respiratory Culture - Final Mixed normal respiratory marquis. No Streptococcus pneumoniae, beta-hemolytic Streptococcus or Staphylococcus aureus isolated. 03/17/22 10:50 Stool Stool Lactoferrin - Final 03/17/22 05:45 Mucosa - Nasopharyngeal Respiratory Panel (PCR) - Final Rhinovirus 03/17/22 02:15 Nasal Secretion SARS-CoV-2 & FLU Antigen (Rapid) - Final 03/10/22 16:10 Stool Enteric Bacteriology - Final 03/10/22 16:10 Stool C. difficile DNA Amplification - Final 03/02/22 08:05 Blood Culture (Wb) - Neck Blood Culture - Final No growth in 5 days. 03/02/22 08:10 Blood Culture (Wb) - Right Forearm Blood Culture - Final No growth in 5 days. 03/04/22 09:40 Stool Stool Occult Blood (CANDIDA) - Final Occult Blood Positive 03/02/22 18:20 Stool C. difficile DNA Amplification - Final 03/01/22 21:30 Mucosa - Nasopharyngeal Respiratory Panel (PCR) - Final 03/01/22 22:00 Urine Catheter - Catheter Legionella Antigen - Final 03/01/22 22:00 Urine Catheter - Catheter Streptococcus pneumoniae Antigen (M - Final Rhythm Strip Rhythm Strip: Sinus Rhythm Rate: 82 Physical Exam Const no apparent distress Resp normal respiratory effort GI soft to palpation and non-tender Assessment & Plan Assessment/Plan (1) Acute renal failure (ARF): QUALIFIERS: Acute renal failure type: unspecified Qualified Code(s): N17.9 - Acute kidney failure, unspecified PLAN: The patient removed his dialysis access overnight. Patient is fully anticoagulated on Plavix and aspirin and Coumadin. I explained to the patient's that this is high risk due to the bleeding but he needs dialysis needs a catheter placed. I would like the hospitalist service to do over the can to avoid this confusion in the future if possible because his right IJ is already clotted in the left may be as well and I cannot do femoral access due to his recent surgery. I will place a new left chest tunneled dialysis catheter in the OR today if possible and I will place a right if possible. If no access is able to be obtained the patient may need transfer. I discussed this with the patient's and she is in agreement and verbal consent was obtained. Tono Higginbotham MD Pager: [facility] [address] [place] [address], [address] [place] [address] Office:
--- NOTE | 2022-03-23 10:12 | PCM.OPRPT ---
Report of Operation Date of Procedure: 03/23/22 Pre-Operative Diagnosis: Dislodged left tunneled dialysis catheter Post-Operative Diagnosis: Same Surgery/Procedure Performed:: Ultrasound and fluoroscopy guided left chest tunneled dialysis catheter placement using left IJ Description of Procedure: Patient was brought back to the operating room and MAC anesthesia was induced. The left neck and chest were prepped and draped in usual sterile fashion. Ultrasound used to localize left IJ and the skin overlying it was injected with local anesthetic. An incision was made with a scalpel and then the needle was used to access the left IJ under ultrasound guidance. The guidewire was placed without resistance under fluoroscopy guidance into the right atrium. Next the needle was removed and serial dilators and then the peel-away sheath were placed over the wire and then the wire was removed and the peel-away sheath was capped. A small incision was made in the chest and then the catheter was tunneled from the chest incision up to the neck incision. The catheter was placed into the peel-away sheath under fluoroscopy guidance. Peel-away sheath was removed. The catheters were each aspirated and flushed and they both aspirated and flushed easily. The skin incision in the neck was closed with a 3-0 Vicryl suture and the catheter was sutured to the skin using 3-0 nylon. Dressings were applied and then the catheters were each flushed with 2 cc each of heparinized saline. Both catheters were then clamped and capped. Dressing was applied. Patient tolerated the procedure well was brought to PACU in stable condition where chest x-ray will be obtained. Grafts/Implants Used: Curved palindrome 23 cm catheter Admit VTE Documentation VTE Mechan Device Prophylaxis: SCD's
--- NOTE | 2022-03-23 10:23 | PN.HOSP_ITS ---
Subjective Subjective Was agitated overnight and pulled out his dialysis catheter so that will have to be replaced today unfortunately both he and his were upset that his Ativan was started on him previously and then per report they were upset that the Ativan was discontinued which allowed him to get agitated and confused overnight Objective Data Objective Data Vital Signs: Vital Signs Temp Pulse Resp BP Pulse Ox O2 Del Method O2 Flow Rate 98.1 F 94 16 92/67 96 Nasal Cannula 2 03/23/22 04:00 03/23/22 06:49 03/23/22 04:00 03/23/22 04:00 03/23/22 04:00 03/23/22 08:47 03/23/22 08:47 FiO2 30 03/22/22 15:12 Oxygen Flow Rate (L/min) 2 Oxygen Delivery Method Nasal Cannula Weight: 172 lb 13.478 oz Body Mass Index (BMI) 26.9 Intake & Output: Intake and Output for Last 24 Hours 03/22/22 03/23/22 03/24/22 03:59 03:59 03:59 Intake Total 480 / 480 580 / 580 Output Total 1500 / 1500 0 / 0 Balance 480 / 480 -920 / -920 0 / 0 Lab / Micro Data Result Diagrams: 03/22/22 05:55 03/22/22 05:55 Labs: Laboratory Results - last 24 hr 03/22/22 11:20: POC Glucose 170 H 03/22/22 16:47: POC Glucose 105 03/22/22 22:40: POC Glucose 118 H 03/23/22 06:28: POC Glucose 84 Micro: Microbiology 03/17/22 09:07 Sputum, Expectorated/Coughed Gram Stain - Final 03/17/22 09:07 Sputum, Expectorated/Coughed Respiratory Culture - Final Mixed normal respiratory marquis. No Streptococcus pneumoniae, beta-hemolytic Streptococcus or Staphylococcus aureus isolated. 03/17/22 10:50 Stool Stool Lactoferrin - Final 03/17/22 05:45 Mucosa - Nasopharyngeal Respiratory Panel (PCR) - Final Rhinovirus 03/17/22 02:15 Nasal Secretion SARS-CoV-2 & FLU Antigen (Rapid) - Final 03/10/22 16:10 Stool Enteric Bacteriology - Final 03/10/22 16:10 Stool C. difficile DNA Amplification - Final 03/02/22 08:05 Blood Culture (Wb) - Neck Blood Culture - Final No growth in 5 days. 03/02/22 08:10 Blood Culture (Wb) - Right Forearm Blood Culture - Final No growth in 5 days. 03/04/22 09:40 Stool Stool Occult Blood (CANDIDA) - Final Occult Blood Positive 03/02/22 18:20 Stool C. difficile DNA Amplification - Final 03/01/22 21:30 Mucosa - Nasopharyngeal Respiratory Panel (PCR) - Final 03/01/22 22:00 Urine Catheter - Catheter Legionella Antigen - Final 03/01/22 22:00 Urine Catheter - Catheter Streptococcus pneumoniae Antigen (M - Final Rhythm Strip Rhythm Strip: Sinus Rhythm Rate: 82 Physical Exam Narrative General: Alert, Oriented x3, Cooperative though argumentative at times, No apparent distress HEENT: Atraumatic, PERRLA, EOMI, Normocephalic Oral: Moist Mucosa Neck: Supple, No JVD Lungs: Diminished, Normal air movement, No rhonchi, No wheeze, rales Cardiovascular: Regular rate, Regular Rhythm, Normal S1, Normal S2, murmur Abdomen: Soft, Non Tender, Non-Distended, No Hepato-splenomegaly Extremities: Edema, Capillary Refill Less than 3 Seconds Skin: Legs are currently wrapped evidence of skin breakdown Musculoskeletal: No Tenderness to Palpation of Joints or Extremities Neurological: Cranial nerves II-XII grossly intact, Motor Exam 5/5 strength throughout, Sensory exam intact to light touch and pain Psych/Mental Status: Flat affect, Appropriate Assessment & Plan Assessment/Plan (1) Diarrhea: (2) Septic shock: (3) PVD (peripheral vascular disease): (4) GI bleed: (5) Esophageal varices: (6) Hypoxia: (7) Chronic kidney disease, stage 3b: (8) Acute renal failure (ARF): QUALIFIERS: Acute renal failure type: unspecified Qualified Code(s): N17.9 - Acute kidney failure, unspecified PLAN: Plan 1.? 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 Appreciate podiatry assistance ? Continue with infectious disease recommendations, Cipro, Flagyl, IV vancomycin with dialysis ? Stabilized on the midodrine no longer requiring any pressor support with dialysis ? He is currently on dialysis for his DAVIS he does not normally have dialysis at home.? Appreciate nephrology's assistance ? We will monitor his blood sugars and adjust as necessary ? Vascular did perform intervention on 03/13/2022 with angioplasty of the left plan will be for another vascular surgery in April to try to improve blood f low further and then proceed with amputation. ?He continues to remain stable for discharge to SNF, especially once he gets the new dialysis catheter placed 2.? Paroxysmal A. fib/CAD status post CABG and stent/pulmonary hypertension/moderate aortic stenosis/chronic systolic CHF/peripheral artery dis ease ? Currently on Coumadin for his A. fib ? Can continue with aspirin, Lipitor ? We will hold any blood pressure medication secondary to his hypotension 3.? Anemia with Hemoccult positive stools from a rectal bleed ? Continue with PPI and will transfuse as necessary ? Hemoglobin is stable, GI was consulted and an EGD was performed on 03/15/2022, he does have esophageal varices as well as an oozing gastric ulcer and a rectal ulcer 4. Chronic hypoxia ? he does not require any oxygen however he refuses to come off because he thinks he needs it ? It is felt that this is potentially due to panic attacks however he refuses to take anything for his anxiety and was furious when he was given Ativan. DVT: Coumadin Charges/Coding Visit Charges Inpatient E&M: 41758 Subs Hosp L2
--- NOTE | 2022-03-23 11:05 | RAD_ITS ---
STUDY: X-RAY CHEST REASON FOR EXAM: Male, 77 years old. Line placement -- in pacu TECHNIQUE: Single AP portable view of the chest. COMPARISON: Comparison is made with prior study dated 03/20/2022. FINDINGS: EKG lead projects are seen. A left-sided double-lumen catheter is seen with the tip in the proximal portion of the superior vena cava. Interval improvement of the aeration of both lungs. Residual blunting of both costophrenic angles with increased markings at the left lung base suggestive of atelectasis. Sternal cerclage wires and vascular clips are present from a prior sternotomy and coronary artery bypass graft procedure (CABG). A left-sided unipolar pacemaker is seen. Normal mediastinum and sean. Normal visualized pulmonary arteries. There is atherosclerotic calcification of the aortic arch with tortuosity. There are diffuse degenerative changes of the visualized thoracic spine. Normal visualized ribs, clavicles, and shoulders. There is no demonstrated abnormality of the visualized soft tissue structures of the upper abdomen. RAD/CXR for Line Placement IMPRESSION: Improvement in aeration of both lungs with mild residual bibasilar changes as well as blunting of both costophrenic angles. A left-sided double-lumen catheter is placed with the tip in the proximal portion of the superior vena cava. Electronically Signed: Akil Davis MD at 11:37 EST ,
--- NOTE | 2022-03-23 12:01 | CASEMGMT ---
KALEB CM: [facility] for further expectations related to ongoing care and determination of DC readiness. Call back received from Teresa at [facility] whose voicemail message states the facility can decide next DC date, an additional IMM may be provided and upon discharge the pt has the right to appeal a second time. Josesito Bolanos RN CM
[2022-03-23] MEDS: Dextrose 50%-Water 25 GM/50 ML DISP.SYRIN IV (12:47)
--- NOTE | 2022-03-23 13:10 | PCM.PN.REN ---
Subjective Subjective Pulled out his tunneled lines this morning Objective Data Objective Data Vital Signs: Vital Signs Temp Pulse Resp BP Pulse Ox O2 Del Method O2 Flow Rate 97.6 F L 90 16 101/67 100 Nasal Cannula 2 03/23/22 13:07 03/23/22 13:07 03/23/22 13:07 03/23/22 13:07 03/23/22 13:07 03/23/22 13:07 03/23/22 13:07 FiO2 30 03/22/22 15:12 Oxygen Flow Rate (L/min) 2 Oxygen Delivery Method Nasal Cannula Weight: 78.4 kg Body Mass Index (BMI) 26.9 Intake & Output: Intake and Output for Last 24 Hours 03/21/22 03/22/22 03/23/22 23:59 23:59 23:59 Intake Total 480 / 480 580 / 580 52.75 / 52.75 Output Total 1500 / 1500 0 / 0 Balance 480 / 480 -920 / -920 52.75 / 52.75 Lab / Micro Data Result Diagrams: 03/22/22 05:55 03/22/22 05:55 Labs: Laboratory Results - last 24 hr 03/22/22 16:47: POC Glucose 105 03/22/22 22:40: POC Glucose 118 H 03/23/22 06:28: POC Glucose 84 Micro: Microbiology 03/17/22 09:07 Sputum, Expectorated/Coughed Gram Stain - Final 03/17/22 09:07 Sputum, Expectorated/Coughed Respiratory Culture - Final Mixed normal respiratory marquis. No Streptococcus pneumoniae, beta-hemolytic Streptococcus or Staphylococcus aureus isolated. 03/17/22 10:50 Stool Stool Lactoferrin - Final 03/17/22 05:45 Mucosa - Nasopharyngeal Respiratory Panel (PCR) - Final Rhinovirus 03/17/22 02:15 Nasal Secretion SARS-CoV-2 & FLU Antigen (Rapid) - Final 03/10/22 16:10 Stool Enteric Bacteriology - Final 03/10/22 16:10 Stool C. difficile DNA Amplification - Final 03/02/22 08:05 Blood Culture (Wb) - Neck Blood Culture - Final No growth in 5 days. 03/02/22 08:10 Blood Culture (Wb) - Right Forearm Blood Culture - Final No growth in 5 days. 03/04/22 09:40 Stool Stool Occult Blood (CANDIDA) - Final Occult Blood Positive 03/02/22 18:20 Stool C. difficile DNA Amplification - Final 03/01/22 21:30 Mucosa - Nasopharyngeal Respiratory Panel (PCR) - Final 03/01/22 22:00 Urine Catheter - Catheter Legionella Antigen - Final 03/01/22 22:00 Urine Catheter - Catheter Streptococcus pneumoniae Antigen (M - Final Radiography Diagnostic Testing: Radiology Impression Chest X-Ray 03/23/22 11:05 IMPRESSION: Improvement in aeration of both lungs with mild residual bibasilar changes as well as blunting of both costophrenic angles. A left-sided double-lumen catheter is placed with the tip in the proximal portion of the superior vena cava. Electronically Signed: Akil Davis MD at 11:37 EST , Rhythm Strip Rhythm Strip: Sinus Rhythm Rate: 82 Physical Exam Narrative Alert and oriented x3, no apparent distress Lung sounds audibly coarse, with coarse cough S1, S2, RRR Abdomen soft, nontender No significant lower extremity pitting edema. Edema to bilateral arms. Dressings clean dry and intact to bilateral feet Left internal jugular tunneled HD catheter dressing clean, dry and intact Assessment & Plan Assessment/Plan (1) Acute renal failure (ARF): QUALIFIERS: Acute renal failure type: unspecified Qualified Code(s): N17.9 - Acute kidney failure, unspecified (2) Chronic kidney disease, stage 3b: (3) Hypotension: (4) Anemia: (5) Ischemic cardiomyopathy: (6) Peripheral vascular disease, unspecified: PLAN: Plan - dialysis dependent DAVIS on CKD. Patient has been essentially anuric. In hospital patient has been on a Saturday dialysis schedule. -No noted renal recovery at this time. He still has edema in his arms and last chest x-ray showed small bilateral pleural effusions. - Prior baseline serum creatinine had been around 1.50 mg/dL (01/23/2022). Suspect the patient has underlying diabetic kidney disease or nephrosclerosis related to PAD. - DAVIS is secondary to ischemic ATN from circulatory shock/sepsis. The patient was started on dialysis on 03/02/2022, serum creatinine 9.52 mg/dL. -We will continue to monitor for any renal recovery. Dialysis today. Discharge plans as per primary
[2022-03-23 13:31] LABS: Bedside Glucose 135 mg/dL (74-106)
[2022-03-23 13:31] LABS: Bedside Glucose 54 mg/dL (74-106)
--- NOTE | 2022-03-23 14:41 | CASEMGMT ---
KALEB CM: Call received from Abner with [employer] who states the appeal case is being reopened. Stated that the medical records were not all viewable but now they are so the case is being assigned to a new physician reviewer. Abner states a determination should be received within 1 to 3 days but suspect an earlier response rather than a later response. Will continue to follow for a determination. Josesito Bolanos RN CM
--- NOTE | 2022-03-23 16:05 | CASEMGMT ---
OSKAR spoke with [facility] and patient can come over the weekend. OSKAR also let [facility] know SW is concerned about patient transporting via as he has not been working with therapy on sliding board transfers. They have a back up of transport with [facility]. OSKAR also called [facility] and spoke with Brinda. OSKAR let Brinda know there is a possibility patient could be discharged over the weekend. He can go to dialysis on Saturday as scheduled. Brinda asked that d/c orders be faxed to them if patient is discharged. OSKAR put a green sheet on patient's chart with instructions. Plan: d/c to [facility] under skilled level of care. OSKAR completed a PASRR. Physicians will transport patient. Purvi BROWN
--- NOTE | 2022-03-23 16:52 | CASEMGMT ---
KALEB CM: Call received from Brian at [facility] who states that the physician reviewer agrees with termination of services. [facility] has notified the patient's of this determination. Liability will begin on 03/23/[address] King notified. Josesito Bolanos RN CM
[2022-03-23 17:20] LABS: Bedside Glucose 84 mg/dL (74-106)
[2022-03-23] MEDS: guaiFENesin/D-Methorphan TAB.SR.12H 1 TABLET PO (20:41)
[2022-03-23] MEDS: Atorvastatin Calcium 80 MG Tablet PO (20:41)
[2022-03-23] MEDS: Ciprofloxacin 500 MG Tablet PO (20:41)
[2022-03-23] MEDS: Pantoprazole Sodium 40 MG Tablet PO (20:43)
--- NOTE | 2022-03-23 21:29 | DIALYSIS ---
Hemodialysis x3 hours completed at 2105 on a 3K bath, tolerated fair, low BPs, asymptomatic, UF 1800mL, accessed via new left chest tunneled dialysis catheter, abd taped over new catheter post tx due to pulling line out last night, catheter worked well, pt to convert to MWF dialysis schedule starting next week
[2022-03-23 23:20] LABS: Bedside Glucose 81 mg/dL (74-106)
--- NOTE | 2022-03-23 23:35 | CPS ---
There is no bipap set up in room. Pt has not worn bipap in 3 days.
[2022-03-23] MEDS: Jantoven 2 MG Tablet PO (23:36)
[2022-03-24] VITALS (11 sets, daily range): BP systolic 81–108; BP diastolic 39–70; PULSE 92–102; RESP 17–22; TEMP 36.6–36.9; O2SAT 92–100
[2022-03-24] MEDS: Menthol/Lanolin/Calamine/Znox 113 GM Tube 1 APPLIC TOPICAL (05:14)
[2022-03-24] MEDS: metroNIDAZOLE 500 MG Tablet PO (05:14)
[2022-03-24 06:55] LABS: Bedside Glucose 83 mg/dL (74-106)
[2022-03-24 07:08] LABS: Absolute Lymphocyte Count 0.31 X10^3/uL (0.83-4.51); Absolute Neutrophil Count 15.5 X10^3/uL (2.0-7.7); Basophil# 0.02 X10^3/uL; Basophil% 0.1 % (0-1); Eosinophil# 0.01 X10^3/uL; Eosinophils% 0.1 % (0-5); Hematocrit 28.1 % (40-54); Hemoglobin 8.4 g/dL (13.0-16.5); Lymphocyte # 0.31 X10^3/ul (0.83-4.51); Lymphocyte % 1.8 % (19-41); Mean Corp Hgb Conc 29.9 g/dL (32-36); Mean Corpuscular Volume 103.7 fL (80-94); Mean Platelet Vol. 11.1 fl (6.2-12.0); Monocyte# 1.04 X10^3/uL; Monocyte% 6.1 % (0-10); NRBC Flagged by Analyzer 0.1 % (0-5); Neutrophil # 15.54 X10^3/uL (2.7-7.7); Neutrophil % 90.7 % (47-70); POSITIVE DIFFERENTIAL YES; POSITIVE MORPHOLOGY YES; Platelet Count 150 K/mm3 (150-450); RBC Distribution Width CV 19.6 % (11.6-14.6); RBC Distribution Width SD 73.8 fl (35.1-43.9); Red Blood Count 2.71 M/mm3 (4.6-6.2); White Blood Count 17.1 K/mm3 (4.4-11.0)
[2022-03-24 07:17] LABS: Differential Indicated SCAN CRITERIA MET
[2022-03-24 07:32] LABS: Anion Gap 8 (5-15); BUN 33 mg/dL (7-18); Calcium,Total 8.3 mg/dL (8.5-10.1); Chloride 100 mmol/L (98-107); Creatinine, Serum 2.53 mg/dL (0.70-1.30); EST Glomerular Filtration Rate 26 mL/min (>60); Est Glom Filt Rate - Afr Amer 32 mL/min (>60); Estimated Creatinine Clearance 22.86 ml/min; Glucose 82 mg/dL (74-106); Potassium 4.6 mmol/L (3.5-5.1); Sodium Level 132 mmol/L (136-145)
[2022-03-24 07:39] LABS: Vancomycin, Random Level 12.4 ug/mL (0.0-15.0)
[2022-03-24 08:08] LABS: Anisocytosis 1+; Platelet Estimate ADEQUATE (ADEQ); Poikilocytosis 1+; Polychromasia 1+
[2022-03-24 08:09] LABS: Acanthocytes 1+; Macrocytosis 2+; Ovalocyte 1+
--- NOTE | 2022-03-24 08:37 | NURSING ---
Pt refusing all morning medications for this RN. I provided education on each medication and encouraged patient to take them. There is nothing you can do to make me take them, I am not taking them.
[2022-03-24] MEDS: Loperamide 2 MG Capsule PO (09:55)
[2022-03-24] MEDS: Clopidogrel Bisulfate 75 MG Tablet PO (09:55)
[2022-03-24] MEDS: Aspirin E.C. 81 MG Tablet PO (09:55)
[2022-03-24] MEDS: Midodrine HCl 5 MG Tablet 10 MG PO (09:55)
[2022-03-24] MEDS: guaiFENesin/D-Methorphan TAB.SR.12H 1 TABLET PO (09:55)
[2022-03-24] MEDS: Pantoprazole Sodium 40 MG Tablet PO (09:55)
--- NOTE | 2022-03-24 10:26 | PN.SURG_ITS ---
Subjective Subjective Is post left tunneled dialysis catheter yesterday after pulling his temporary dialysis catheter yesterday morning. Objective Data Objective Data Vital Signs: Vital Signs Temp Pulse Resp BP Pulse Ox O2 Del Method O2 Flow Rate 98.1 F 96 17 108/39 L 95 Nasal Cannula 2 03/24/22 09:57 03/24/22 09:57 03/24/22 09:57 03/24/22 09:57 03/24/22 09:57 03/24/22 09:57 03/24/22 09:57 FiO2 30 03/22/22 15:12 Oxygen Flow Rate (L/min) 2 Oxygen Delivery Method Nasal Cannula Weight: 164 lb 10.965 oz Body Mass Index (BMI) 26.9 Intake & Output: Intake and Output for Last 24 Hours 03/22/22 03/23/22 03/24/22 23:59 23:59 23:59 Intake Total 580 / 580 172.75 / 172.75 Output Total 1500 / 1500 1800 / 1800 0 / 0 Balance -920 / -920 -1627.25 / -1627.25 0 / 0 Lab / Micro Data Result Diagrams: 03/24/22 06:10 03/24/22 06:10 Labs: Laboratory Results - last 24 hr 03/23/22 12:36: POC Glucose 54 L 03/23/22 13:06: POC Glucose 135 H 03/23/22 16:59: POC Glucose 84 03/23/22 21:33: POC Glucose 81 03/24/22 06:10: Random Vancomycin 12.4 03/24/22 06:10: WBC 17.1 H, RBC 2.71 L, Hgb 8.4 L, Hct 28.1 L, MCV 103.7 H D, MCH 31.0, MCHC 29.9 L, RDW Std Deviation 73.8 H, RDW Coeff of Nguyen 19.6 H, Plt Count 150, MPV 11.1, Immature Gran % (Auto) 1.200 H, Neut % (Auto) 90.7 H, Lymph % (Auto) 1.8 L, [place] % (Auto) 6.1, Eos % (Auto) 0.1, Baso % (Auto) 0.1, Absolute Neuts (auto) 15.5 H, Absolute Lymphs (auto) 0.31 L, Nucleated RBC % 0.1, Platelet Estimate ADEQUATE, Polychromasia 1+, Poikilocytosis 1+, Anisocytosis 1+, Macrocytosis 2+, Ovalocytes 1+, Acanthocytes (Spur) 1+ 03/24/22 06:10: Sodium 132 L, Potassium 4.6, Chloride 100, Carbon Dioxide 24.0, Anion Gap 8, BUN 33 H, Creatinine 2.53 H, Estim Creat Clear Calc 22.86, Est GFR (MDRD) Af Amer 32 L, Est GFR (MDRD) Non-Af 26 L, BUN/Creatinine Ratio 13.0, Glucose 82, Calcium 8.3 L 03/24/22 06:17: POC Glucose 83 Micro: Microbiology 03/17/22 09:07 Sputum, Expectorated/Coughed Gram Stain - Final 03/17/22 09:07 Sputum, Expectorated/Coughed Respiratory Culture - Final Mixed normal respiratory marquis. No Streptococcus pneumoniae, beta-hemolytic Streptococcus or Staphylococcus aureus isolated. 03/17/22 10:50 Stool Stool Lactoferrin - Final 03/17/22 05:45 Mucosa - Nasopharyngeal Respiratory Panel (PCR) - Final Rhinovirus 03/17/22 02:15 Nasal Secretion SARS-CoV-2 & FLU Antigen (Rapid) - Final 03/10/22 16:10 Stool Enteric Bacteriology - Final 03/10/22 16:10 Stool C. difficile DNA Amplification - Final 03/02/22 08:05 Blood Culture (Wb) - Neck Blood Culture - Final No growth in 5 days. 03/02/22 08:10 Blood Culture (Wb) - Right Forearm Blood Culture - Final No growth in 5 days. 03/04/22 09:40 Stool Stool Occult Blood (CANDIDA) - Final Occult Blood Positive 03/02/22 18:20 Stool C. difficile DNA Amplification - Final 03/01/22 21:30 Mucosa - Nasopharyngeal Respiratory Panel (PCR) - Final 03/01/22 22:00 Urine Catheter - Catheter Legionella Antigen - Final 03/01/22 22:00 Urine Catheter - Catheter Streptococcus pneumoniae Antigen (M - Final Radiography Diagnostic Testing: Radiology Impression Chest X-Ray 03/23/22 11:05 IMPRESSION: Improvement in aeration of both lungs with mild residual bibasilar changes as well as blunting of both costophrenic angles. A left-sided double-lumen catheter is placed with the tip in the proximal portion of the superior vena cava. Electronically Signed: Akil Davis MD at 11:37 EST , Rhythm Strip Rhythm Strip: Sinus Rhythm Rate: 82 Physical Exam Narrative Left tunneled dialysis catheter in place and covered. No signs of infection Assessment & Plan Assessment/Plan (1) Acute renal failure (ARF): QUALIFIERS: Acute renal failure type: unspecified Qualified Code(s): N17.9 - Acute kidney failure, unspecified PLAN: Left tunneled dialysis catheter clean dry and intact and covered. Call with any questions.
--- NOTE | 2022-03-24 10:29 | TREXTCAR_ITS ---
Diet Diet Order/Speech Therapy: 03/23/22 12:08 Diet: Cardiac - Heart Healthy Dietary Modifications:: Consistent Carbohydrate Type of Dietary Supplement:: Nepro Is pt able to select menu?: Yes Diet Comments: 8 oz nepro cho steady w/ meals tid Routine Orders/Code Status O2 Frequency: Continuous Routine Lab Work: CBC (3 days), BMP (3 days) and INR (daily) Code Status: Full Code Wound(s) RLE: Wound Type: stasis ulcers to the leg and ischemic ulcers to the foot Dressing Change: Adaptic to the leg and betadine to the foot wounds LLE: Wound Type: scattered stasis ulcers to the legs/ischemic ulcers to the foot Dressing Change: Adaptic to leg and betadine to foot left great toe: Wound Type: ischemic ulcer Dressing Change: betadine with dry dressing tip of left great toe: Wound Type: ischemic ulcer Dressing Change: betadine with dry dressing left anterior juarez: Wound Type: Stasis Ulcer Dressing Change: dry dressing left medial lower leg: Wound Type: Stasis Ulcer Dressing Change: dry dressing left lateral foot: Wound Type: ischemic ulcer Dressing Change: betadine with dry dressing left lateral heel: Wound Type: ischemic ulcer Dressing Change: betadine with dry dressing right medial lower leg: Wound Type: Stasis Ulcer Dressing Change: Adaptic right anterior lower leg: Wound Type: Stasis Ulcer Dressing Change: dry dressing right dorsal foot: Wound Type: ischemic ulcer Dressing Change: betadine with dry dressing right 2nd toe: Wound Type: ischemic ulcer Dressing Change: betadine dry dressing right buttocks: Wound Type: Pressure Injury left buttocks: Wound Type: Pressure Injury coccyx: Wound Type: moisture related open area Dressing Change: Mepilex changed RFA: Wound Type: Skin Tear lt upper arm: Wound Type: Skin Tear Dressing Change: Adaptic rt groin post angio site: Wound Type: Puncture LEFT NECK, ANTERIOR, DISTAL: Wound Type: Surgical Incision LEFT UPPER CHEST, PROXIMAL, JUST LEFT OF MIDLINE [HD CATHETER]: Wound Type: Surgical Incision Suggestions for Active Care Change Position every (hours): 2 Therapies Weight Bearing: Non weight bearing Extremity Affected:: Bilateral Lower Physical Therapy: Eval and Treat Occupational Therapy: Eval and Treat Problem/Diagnosis (1) Acute renal failure (ARF): Status: Acute Code(s): N17.9 - Acute kidney failure, unspecified Plan 1.? 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 Appreciate podiatry assistance ? Continue with infectious disease recommendations, Cipro, Flagyl, IV vancomycin with dialysis ? Stabilized on the midodrine no longer requiring any pressor support with dialysis ? He is currently on dialysis for his DAVIS he does not normally have dialysis at home.? Appreciate nephrology's assistance ? We will monitor his blood sugars and adjust as necessary ? Vascular did perform intervention on 03/13/2022 with angioplasty of the left plan will be for another vascular surgery in April to try to improve blood flow further and then proceed with amputation. ?He continues to remain stable for discharge to SNF, especially once he gets the new dialysis catheter placed 2.? Paroxysmal A. fib/CAD status post CABG and stent/pulmonary hypertension/moderate aortic stenosis/chronic systolic CHF/peripheral artery disease ? Currently on Coumadin for his A. fib ? Can continue with aspirin, Lipitor ? We will hold any blood pressure medication secondary to his hypotension 3.? Anemia with Hemoccult positive stools from a rectal bleed ? Continue with PPI and will transfuse as necessary ? Hemoglobin is stable, GI was consulted and an EGD was performed on 03/15/2022, he does have esophageal varices as well as an oozing gastric ulcer and a rectal ulcer 4. Chronic hypoxia ? he does not require any oxygen however he refuses to come off because he thinks he needs it ? It is felt that this is potentially due to panic attacks however he refuses to take anything for his anxiety and was furious when he was given Ativan. DVT: Coumadin Allergies/Procedures Done in Hospital Allergies amiodarone Allergy (Verified 03/14/22 15:49) Shortness of breath lisinopril Adverse Reaction (Verified 03/01/22 13:28) cough Procedures: 2-D Echocardiogram, Colonoscopy, EGD and - (Extremity arterial studies/renal ultrasound/aortogram with lower extremity runoff left teal angioplasty/left anterior tibial angioplasty) Type of Care/Length of Stay Estimated LOS: More Than 30 Days Type of Care Needed: Skilled Rehab Potential: Fair Prognosis: Fair Additional Orders/Day of Discharge Day of Discharge: 03/24/22 Dietary and Speech Recommendations Dietitian Recommendations/Changes: Continue CHO Controlled / Sodium Restricted with 8oz Nepro CarbSteady ONS at meals to manage medical conditions Recommend continue Levy BID for wound healing when diet advances. Discharge Plan Admission Admit Date/Time: 03/01/22 14:54 Primary Reason for Your Visit: Dyspnea/Orthopnea/Edema Attending Provider: Jesse King Primary Care Provider: Pedro Luis Shin Consulting Providers: Lor Lazaro ; Pedro Luis Baig ; Jesse King ; Tnoo Higginbotham ; Yoel Arevalo ; Get Garner ; Angus Pradhan ; Jai Fan ; Mando Santo ; Leeanne Martin ; Maia Maldonado Discharge Orders/Prescriptions Prescriptions: New metronidazole 500 mg Tablet 500 mg PO TID 28 Days Qty: 84 0RF ciprofloxacin HCl 500 mg Tablet 500 mg PO QPM 28 Days Qty: 28 0RF vancomycin 1,000 mg recon soln 1 g IV .see below 28 Days Qty: 12 0RF Rx Instructions: 1gm iv vanc to be given with dialysis sessions 3x/week dx: foot osteomyelitis weekly bmp, cbc, vanc trough, LFT. Fax to [phone] stop date 04/12/22. acetaminophen [Tylenol] 325 mg Tablet 650 mg PO Q4H PRN PRN (Reason: Fever, pain -01/08) Qty: 0 0RF albuterol sulfate 2.5 mg /3 mL (0.083 %) Solution For Nebulization 2.5 mg inhalation Q2H PRN PRN (Reason: Dyspnea, wheezing) Qty: 0 0RF loperamide 2 mg Capsule 2 mg PO Q2H PRN PRN (Reason: Diarrhea) Qty: 0 0RF loperamide 2 mg Capsule 2 mg PO Q12 Qty: 0 0RF clopidogrel 75 mg Tablet 75 mg PO DAILY Qty: 30 0RF insulin lispro [Humalog KwikPen Insulin] 100 unit/mL Insulin Pen See Protocol subcut ACHS Qty: 0 0RF Protocol: 3. Sliding Scale Insulin Med Dosing Condition: 150-189 mg/dl = 1 unit Condition: 190-229 mg/dl = 2 units Condition: 230-269 mg/dl = 3 units Condition: 270-309 mg/dl = 4 units Condition: 310-349 mg/dl = 5 units Condition: 350-399 mg/dl = 6 units Condition: 400-449 mg/dl = 7 units Condition: Greater than 449 call physician Protocol Text: - Use for Total Daily Dose of Insulin 37-55 units - Obsese, infected, or steroid patients MEDIUM DOSING ALGORITHIM acidophilus-pectin, citrus 25 million cell -100 mg Tablet 1 tab PO BID Qty: 0 0RF Creon 12,000-38,000 -60,000 unit Capsule,Delayed Release(Dr/Ec) 3 cap PO TIDCM Qty: 0 0RF Levy (with collagen) 7-7-1.5 gram Powder In Packet 1 packet PO BIDCM Qty: 0 0RF midodrine 5 mg Tablet 10 mg PO TIDCM Qty: 0 0RF melatonin 3 mg Tablet 3 mg PO QHS PRN PRN (Reason: Insomnia) Qty: 0 0RF pantoprazole 40 mg Tablet,Delayed Release (Dr/Ec) 40 mg PO BID Qty: 0 0RF alum-mag hydroxide-simeth [Mag-Al Plus Extra Strength] 400-400-40 mg/5 mL Suspension 30 ml PO Q6H PRN PRN (Reason: Gastric Burning) Qty: 0 0RF [place] Nasal 0.65 % Aerosol,[place] 2 spray NASAL BID PRN PRN (Reason: NASAL DRYNESS) Qty: 44 0RF menthol-zinc oxide [Calmoseptine] 0.44-20.6 % Ointment 1 applic topical TID Qty: 0 0RF Protocol: *Topical Application Instructions APPLICATION INSTRUCTIONS: apply to coccyx Continued atorvastatin 80 mg tablet 80 mg PO QHS Qty: 90 3RF ascorbic acid (vitamin C) 500 mg tablet 500 mg PO DAILY cholecalciferol (vitamin D3) 25 mcg (1,000 unit) capsule 25 mcg PO DAILY Novolin N Flexpen 5 units QHS Novolin N Flexpen 12 units DAILY warfarin [Aprtoven] 2 mg Tablet 2 mg PO DINNER Qty: 0 0RF Protocol: Dose Management Condition: Saturday Dose/Route: 2 mg Instruction: 1 x 2 mg tablet Condition: Saturday Dose/Route: 2 mg Instruction: 1 x 2 mg tablet Condition: Saturday Dose/Route: 0 mg Instruction: 0 tablets Condition: Saturday Dose/Route: 0 mg Instruction: 0 tablets Condition: Dose/Route: 2 mg Instruction: 1 x 2 mg tablet Condition: Saturday Dose/Route: 2 mg Instruction: 1 x 2 mg tablet Condition: Saturday Dose/Route: 2 mg Instruction: 1 x 2 mg tablet Protocol Text: Adjustment Start Date: Saturday02/27/22 INR Value: 5.4 INR Date: 02/27/22 Recheck Date: 03/01/22 (DME) Handarya Lagunas Qty: 1 0RF Rx Instructions: As directed; Good from 08/03/19 - 08/02/24 Discontinued aspirin 81 MG tablet,delayed release (DR/EC) 81 mg PO DAILY omeprazole 20 mg capsule,delayed release(DR/EC) 20 mg PO DAILY PRN (Reason: acid reflux) Label Comments: TAKE 1 CAPSULE BY MOUTH ONCE DAILY 30 MINUTES BEFORE BREAKFAST ciprofloxacin HCl 750 mg tablet 750 mg PO BID Label Comments: TAKE 1 TABLET BY MOUTH TWICE DAILY losartan 25 mg tablet 25 mg PO DAILY Label Comments: TAKE 1 TABLET BY MOUTH ONCE DAILY doxycycline hyclate 100 mg tablet 100 mg PO BID Label Comments: TAKE 1 TABLET BY MOUTH TWICE DAILY potassium chloride 20 mEq tablet extended release 20 meq PO DAILY metoprolol succinate 100 mg tablet extended release 24 hr 100 mg PO BID Qty: 180 6RF spironolactone 25 mg tablet 25 mg PO DAILY Qty: 30 6RF furosemide 40 mg tablet 40 mg PO BID Referrals / Follow Up: Jai Fan DPM [Med Staff - Active Staff] - In 1 Week Mando Santo MD [Med Staff - Active Staff] - See Referral Note (as scheduled) Annabella Mondragon MD [Med Staff - Consulting] - Within 2 Weeks Pedro Luis Shin MD [Primary Care Provider] - Within 1 Month Yoel Arevalo MD [Med Staff - Active Staff] - Within 1 Month Disposition Disposition (needs filled in before D/C Order can be placed): Custodial Facility (1) Acute renal failure (ARF) Qualifiers: Acute renal failure type: unspecified Qualified Code(s): N17.9 - Acute kidney failure, unspecified
--- NOTE | 2022-03-24 10:30 | DS.PCM_ITS ---
Providers Date of Admission: 03/01/22 Primary Care Physician: Dr. Pedro Luis Shin MD Consultations 03/01/22 20:05 Consult: Infectious Disease Routine Consulting Provider: Yoel Arevalo Reason for Consult: BL LE diabetic foot wounds, request per Podiatry. EMERGENT Consult: No MD Notified: Yes Date Notified: 03/02/22 Time Notified: 08:02 Method of Notification: Text Consult: Process Tank Tender / Pulmonary Medicine Routine Consulting Provider: Get Garner Reason for Consult: DAVIS, hyperkalemia, hypotensive, BL diabetic foot wound EMERGENT Consult: No MD Notified: Yes Date Notified: 03/01/22 Time Notified: 15:35 Method of Notification: Text Consult: Nephrology Routine Consulting Provider: Angus Pradhan Reason for Consult: DAVIS, hyperkalemia EMERGENT Consult: No MD Notified: Yes Date Notified: 03/01/22 Time Notified: 15:33 Method of Notification: called Consult: Onc/Wound/bilingual research interviewer Routine Comment: Reason for Consult:: BL diabetic foot wounds Consult: Podiatry Routine Consulting Provider: Jai Fan Reason for Consult: BL LE diabetic foot wounds EMERGENT Consult: No MD Notified: Yes Date Notified: 03/01/22 Time Notified: 15:33 Method of Notification: called Consult: Vascular Surgery Routine Consulting Provider: Mando Santo Reason for Consult: BL LE diabetic wounds, request per Podiatry EMERGENT Consult: No MD Notified: Yes Date Notified: 03/01/22 Time Notified: 17:08 Method of Notification: Text 03/08/22 07:39 Consult: General Surgery Routine Consulting Provider: Tono Higginbotham Reason for Consult: Tunneled dialysis line placement EMERGENT Consult: No Notified: Yes Date Notified: 03/08/22 Time Notified: 09:20 Method of Notification: Text 03/13/22 16:04 Consult: Gastroenterology Routine Consulting Provider: Glenn Gastroenterlexy Reason for Consult: anemia, positive stool occult blood EMERGENT Consult: No MD Notified: Yes Date Notified: 03/13/22 Time Notified: 16:04 Method of Notification: Text 03/14/22 11:51 Consult: Gastroenterology Routine Consulting Provider: Glenn Gastroenterlexy Reason for Consult: acute on chronic anemia, positive stool occult blood EMERGENT Consult: No MD Notified: Yes Date Notified: 03/14/22 Time Notified: 11:52 Method of Notification: Text Reason For Visit: DAVIS, HYPERKALEMIA Diagnosis Discharge Diagnosis (1) Acute renal failure (ARF): Status: Acute Code(s): N17.9 - Acute kidney failure, unspecified Qualifiers: Acute renal failure type: unspecified Qualified Code(s): N17.9 - Acute kidney failure, unspecified Plan 1.? 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 Appreciate podiatry assistance ? Continue with infectious disease recommendations, Cipro, Flagyl, IV vancomycin with dialysis ? Stabilized on the midodrine no longer requiring any pressor support with di alysis ? He is currently on dialysis for his DAVIS he does not normally have dialysis at home.? Appreciate nephrology's assistance ? We will monitor his blood sugars and adjust as necessary ? Vascular did perform intervention on 03/13/2022 with angioplasty of the left plan will be for another vascular surgery in April to try to improve blood flow further and then proceed with amputation. ?He continues to remain stable for discharge to SNF, especially once he gets the new dialysis catheter placed 2.? Paroxysmal A. fib/CAD status post CABG and stent/pulmonary hypertension/moderate aortic stenosis/chronic systolic CHF/peripheral artery disease ? Currently on Coumadin for his A. fib ? Can continue with aspirin, Lipitor ? We will hold any blood pressure medication secondary to his hypotension 3.? Anemia with Hemoccult positive stools from a rectal bleed ? Continue with PPI and will transfuse as necessary ? Hemoglobin is stable, GI was consulted and an EGD was performed on 03/15/2022, he does have esophageal varices as well as an oozing gastric ulcer and a rectal ulcer 4. Chronic hypoxia ? he does not require any oxygen however he refuses to come off because he thinks he needs it ? It is felt that this is potentially due to panic attacks however he refuses to take anything for his anxiety and was furious when he was given Ativan. DVT: Coumadin Medications at Discharge Home Medications Handicap Placard #1 ea 08/28/19 atorvastatin 80 mg tablet 80 mg PO QHS #90 tabs 05/23/21 Novolin N Flexpen 5 units QHS diabetes 11/03/21 Novolin N Flexpen 12 units DAILY daily 11/03/21 warfarin 2 mg tablet (Jantoven) 2 mg PO DINNER #0 tabs 11/06/21 ascorbic acid (vitamin C) 500 mg tablet 500 mg PO DAILY 01/01/22 cholecalciferol (vitamin D3) 25 mcg (1,000 unit) capsule 25 mcg PO DAILY 01/01/22 ciprofloxacin HCl 500 mg tablet 500 mg PO QPM 28 days #28 tabs 03/14/22 metronidazole 500 mg tablet 500 mg PO TID 28 days #84 tabs 03/14/22 vancomycin 1,000 mg intravenous injection 1 g IV .see below 28 days #12 ea 03/14/22 acetaminophen 325 mg tablet (Tylenol) 650 mg PO Q4H PRN PRN Fever, pain 1-01/08 #0 tabs 03/20/22 acidophilus 25 million cell-pectin, citrus 100 mg tablet 1 tab PO BID #0 tabs 03/20/22 albuterol sulfate 2.5 mg/3 mL (0.083 %) solution for nebulization 2.5 mg (3 mL) inhalation Q2H PRN PRN Dyspnea, wheezing #0 mL 03/20/22 aluminum-mag hydroxide-simethicone 400 mg-400 mg-40 mg/5 mL oral susp (Mag-Al Plus Extra Strength) 30 ml PO Q6H PRN PRN Gastric Burning #0 mL 03/20/22 arginine 7 gram-glutam 7 gram-CaHMB 1.5 vdjh-qitgg-po-min oral pwd pkt (Levy (with collagen)) 1 packet PO BIDCM #0 ea 03/20/22 clopidogrel 75 mg tablet 75 mg PO DAILY #30 tabs 03/20/22 insulin lispro 100 unit/mL subcutaneous pen (Humalog KwikPen (U-100) Insulin) See Protocol subcut ACHS #0 mL 03/20/22 imcdyv-glcjrlmz-ltipzgl 12,000-38,000-60,000 unit capsule,delayed rel (Creon) 3 cap PO TIDCM #0 caps 03/20/22 loperamide 2 mg capsule 2 mg PO Q12 #0 caps 03/20/22 loperamide 2 mg capsule 2 mg PO Q2H PRN PRN Diarrhea #0 caps 03/20/22 melatonin 3 mg tablet 3 mg PO QHS PRN PRN Insomnia #0 tabs 03/20/22 menthol 0.44 %-zinc oxide 20.6 % topical ointment (Calmoseptine) 1 applic topical TID #0 grams 03/20/22 midodrine 5 mg tablet 10 mg PO TIDCM #0 tabs 03/20/22 pantoprazole 40 mg tablet,delayed release 40 mg PO BID #0 tabs 03/20/22 sodium chloride 0.65 % nasal spray aerosol (Deep Sea Nasal) 2 spray NASAL BID PRN PRN NASAL DRYNESS #44 mL 03/20/22 Hospital Course Operations - (Aortogram with left lower extremity runoff and left popliteal angioplasty/left anterior tibial angioplasty) Procedures 2-D Echocardiogram, Colonoscopy, Dialysis and EGD Summary of Care Provided Minutes Spent on Discharge: 40 Hospital Course: Mr. Brandt is a 77-year-old white male who presented to the emergency department at [facility] on 03/01/2022 with shortness of breath, orthopnea, and lower extremity edema.? He was found to be hypotensive in the emergency department and had been being followed by podiatry in the wound clinic due to history of peripheral vascular disease with lower extremity diabetic associated lower extremity ulcers.? Upon presentation emergency department he was noted to have a temperature of 96.2 and found to be mildly tachycardic and tachypneic.? Oxygen saturations were stable on room air.? His initial CBC showed no evidence of leukocytosis.? His initial INR was 3.9 and the patient was on chronic anticoagulation with Coumadin for paroxysmal atrial fibrillation.? His chemistry panel was notable for a sodium of 131, potassium 6.7, bicarb of 16, BUN of 156 and a serum creatinine of 9.65.? His initial troponin was 79 with a BNP of 549.? Urinalysis was performed and was unrevealing.? His chest x-ray was closely clear with blunting of the costophrenic angles.? A renal ultrasound was performed and showed no evidence of obstruction.? In the emergency department he received supplemental fluids however remained hypotensive and a left triple-lumen central venous catheter was placed and the patient was initiated on vasopressors.? Cultures were obtained and an broad-spectrum antibiotics were initiated.? He was admitted to the medical intensive care unit for further management.? Consultations to critical care medicine and nephrology were placed.? He was unfortunately not responsive to IV fluids and a temporary dialysis catheter was placed on 03/02/2022 and hemodialysis was initiated by the gaming associate.? Patient had known underlying CKD stage IIIb however he had worsening DAVIS likely from prerenal azotemia secondary to circulatory shock that was exacerbated by ongoing home diuretic and ARB use prior to admission.? Unfortunately, his renal function did not improve during his hospitalization he required ongoing hemodialysis up until the time of discharge and a tunneled dialysis catheter was placed by [facility] on 03/09/2022.? He was tolerating dialysis well however he did suffer from some hypotension with dialysis during his stay and was started on midodrine which achieve desired result of stabilizing his blood pressures.? An echocardiogram was obtained and showed mild to moderate global left ventricular systolic dysfunction with an EF of 40% which is stable compared to previous, stage III diastolic dysfunction, severely enlarged left atrium, moderately enlarged right atrium, moderate mitral valve insufficiency, mild tricuspid valve insufficiency with moderate pulmonary hypertension and moderate aortic stenosis.? Infectious disease was consulted on the second as well and felt that his septic shock was related to bilateral lower extremity infected ulcers.? It was noted he had recent wound cultures that had polymicrobial infections with citro, proteus, morganella, serratia, GBS, enterococcus, and anaerobes and he was maintained on empiric vancomycin and Zosyn which was renally dosed at that time.? Arterial studies were also done on the day of admission and showed severe arterial insufficiency of the right lower extremity and moderate arterial insufficiency of the left lower extremity therefore vascular surgery was consulted.? He was finally able to be off pressors on 03/04/2022 and it was elected by vascular surgery after discussion with podiatry and nephrology to proceed with a lower extremity aortogram with left lower extremity runoff and left popliteal angioplasty as well as a left anterior tibial angioplasty which was done on 03/13/2022.? 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 Vascular surgery's plan is to proceed with another procedure in a few weeks to reassess the improvements made with the most recent intervention and to possibly attempt additional intervention to optimize blood flow prior to podiatry performing any further surgical intervention to promote the best healing opportunity possible.? It was noted with time that his hemoglobin slowly trickle down and gastroenterology was consulted.? A CT scan was reviewed from earlier this year which noted steatosis of the liver with cholelithiasis but no cholecystitis and no signs of portal vein hypertension or thrombosis or enlarged spleen.? With his anemia it was felt to be prudent to follow-up with an EGD and a colonoscopy with possible capsule endoscopy as an outpatient in the future.? He was also having diarrhea at that time and was started on budesonide as well as pancreatic enzymes with his history of alcoholism and probiotics.? His diarrhea was improving dramatically by the time of discharge and he was having some loose stool but not any exorbitantly voluminous diarrhea at that time.? C. difficile and enteric panel were negative for any acute infections.? EGD and colonoscopy were performed on 03/15/2022.? EGD showed grade 2 esophageal varices, oozing gastric ulcer with adherent clot that was treated with monopolar probe as well as gastric antral vascular ectasia without bleeding and a normal second portion of the duodenum.? Biopsies were taken and a repeat endoscopy was recommended in 3 months.? He was maintained on PPI.? His colonoscopy showed hemorrhoids, a single solitary ulcer in the rectum that was treated with heater probe, diverticulosis in the rectosigmoid colon, sigmoid colon, descending colon and a stricture in the sigmoid colon that was dilated.? He had congested mucosa at the rectum and sigmoid colon as well as the descending and splenic flexure that was biopsied.? Biopsy showed mild to moderate gastritis at the pyloric sphincter and fragments of colonic mucosa with no prolapse for logical diagnosis and biopsies were negative for H. pylori.? Following the procedure his hemoglobin stabilized and he was able to be reinitiated on anticoagulation with Coumadin and Plavix for peripheral vascular disease.? We did discontinue his aspirin to avoid triple therapy and increased risk of future bleeding.? Per infectious disease they recommended continue antibiotics with Cipro and Flagyl as well as IV vancomycin dosed with his hemodialysis.? They also added a probiotic and scheduled Imodium for his diarrhea and felt that this was most likely related to his ongoing antibiotic therapy which will be continued through 04/17/2022.? Infectious disease plans on following up with the patient in 4 weeks.? The plan going forward with regards to his lower extremity wounds is to reevaluate with vascular early in April and then Dr. Fan will follow-up from podiatry to arrange operative intervention after vascular surgery has completed revascularization.? In the meantime he will be maintained on Plavix and Coumadin.? Dr. Fan plans on following at the patient weekly to keep an eye on the wounds until he can perform more definitive management.? He will remain on antibiotics as noted above through 04/17/2022 and have follow-up with ID in 4 weeks.? He will remain on hemodialysis and follow with nephrology and the dialysis center.? Patient did have some intermittent anxiety related shortness of breath during his hospital course at which time his oxygenation remained stable.? The patient demanded to be on oxygen during his hospital course however it does not appear that he needs chronic O2 supplementation.? We discussed the possibility of initiating an antidepressant and the patient was very resistant to this.? We also discussed the utilization of Ativan and we did give this a trial however the patient felt that 0.25 Ativan was too strong and made him too sedated so we discontinued this prior to discharge.? He was deemed stable for discharge on 03/19/2022 and we did identify skilled facilities for discharge as he was evaluated by physical and Occupational Therapy and followed throughout his hospital course.? They recommended ongoing therapy as the patient is to remain nonweightbearing on his lower extremities until definitive treatment can be established and he has marked weakness.? He was excepted by [facility] on 03/20/2022 and the patient was discharged in stable condition.? The patient was dissatisfied with the timing of his discharge and indicated that he would appeal his discharge with Medicare.? Outpatient follow-up with specialist as noted above.? The patient will need follow-up with his primary care physician within the next month and will be seen by the residential facility physician while living there.? I would recommend a follow-up CBC in 3 days to reassess his hemoglobin with ongoing anticoagulation and previous GI bleed as well as daily INR.? INR on the day of discharge was 1.5 and trending up.? Also need a BMP in 1 week. Of note, he initially appealed his discharge which was overturned by Medicare however in that process he did remove his temporary dialysis catheter which had to be reinserted on 03/23/2022. This is remained in place now and he underwent dialysis yesterday. He does wax and wane in his mental status throughout the day, and at night on occasion he does get agitated so he may benefit from as needed Ativan at SNF if necessary. Physical Exam Narrative General: Alert, Oriented x3, Cooperative though argumentative at times, No apparent distress HEENT: Atraumatic, PERRLA, EOMI, Normocephalic Oral: Moist Mucosa Neck: Supple, No JVD Lungs: Diminished, Normal air movement, No rhonchi, No wheeze, rales Cardiovascular: Regular rate, Regular Rhythm, Normal S1, Normal S2, murmur Abdomen: Soft, Non Tender, Non-Distended, No Hepato-splenomegaly Extremities: Edema, Capillary Refill Less than 3 Seconds Skin: Legs are currently wrapped evidence of skin breakdown Musculoskeletal: No Tenderness to Palpation of Joints or Extremities Neurological: Cranial nerves II-XII grossly intact, Motor Exam 5/5 strength throughout, Sensory exam intact to light touch and pain Psych/Mental Status: Flat affect, Appropriate Weight / BMI Weight Weight: 164 lb 10.965 oz Body Mass Index (BMI) 26.9 ABG / Lab / Microbiology Data Result Diagrams: 03/24/22 06:10 03/24/22 06:10 Laboratory: Laboratory Results - last 24 hr 03/23/22 12:36: POC Glucose 54 L 03/23/22 13:06: POC Glucose 135 H 03/23/22 16:59: POC Glucose 84 03/23/22 21:33: POC Glucose 81 03/24/22 06:10: Random Vancomycin 12.4 03/24/22 06:10: WBC 17.1 H, RBC 2.71 L, Hgb 8.4 L, Hct 28.1 L, MCV 103.7 H D, MCH 31.0, MCHC 29.9 L, RDW Std Deviation 73.8 H, RDW Coeff of Nguyen 19.6 H, Plt Count 150, MPV 11.1, Immature Gran % (Auto) 1.200 H, Neut % (Auto) 90.7 H, Lymph % (Auto) 1.8 L, [place] % (Auto) 6.1, Eos % (Auto) 0.1, Baso % (Auto) 0.1, Absolute Neuts (auto) 15.5 H, Absolute Lymphs (auto) 0.31 L, Nucleated RBC % 0.1, Platelet Estimate ADEQUATE, Polychromasia 1+, Poikilocytosis 1+, Anisocytosis 1+, Macrocytosis 2+, Ovalocytes 1+, Acanthocytes (Spur) 1+ 03/24/22 06:10: Sodium 132 L, Potassium 4.6, Chloride 100, Carbon Dioxide 24.0, Anion Gap 8, BUN 33 H, Creatinine 2.53 H, Estim Creat Clear Calc 22.86, Est GFR (MDRD) Af Amer 32 L, Est GFR (MDRD) Non-Af 26 L, BUN/Creatinine Ratio 13.0, Glucose 82, Calcium 8.3 L 03/24/22 06:17: POC Glucose 83 Microbiology: Microbiology 03/17/22 09:07 Sputum, Expectorated/Coughed Gram Stain - Final 03/17/22 09:07 Sputum, Expectorated/Coughed Respiratory Culture - Final Mixed normal respiratory marquis. No Streptococcus pneumoniae, beta-hemolytic Streptococcus or Staphylococcus aureus isolated. 03/17/22 10:50 Stool Stool Lactoferrin - Final 03/17/22 05:45 Mucosa - Nasopharyngeal Respiratory Panel (PCR) - Final Rhinovirus 03/17/22 02:15 Nasal Secretion SARS-CoV-2 & FLU Antigen (Rapid) - Final 03/10/22 16:10 Stool Enteric Bacteriology - Final 03/10/22 16:10 Stool C. difficile DNA Amplification - Final 03/02/22 08:05 Blood Culture (Wb) - Neck Blood Culture - Final No growth in 5 days. 03/02/22 08:10 Blood Culture (Wb) - Right Forearm Blood Culture - Final No growth in 5 days. 03/04/22 09:40 Stool Stool Occult Blood (CANDIDA) - Final Occult Blood Positive 03/02/22 18:20 Stool C. difficile DNA Amplification - Final 03/01/22 21:30 Mucosa - Nasopharyngeal Respiratory Panel (PCR) - Final 03/01/22 22:00 Urine Catheter - Catheter Legionella Antigen - Final 03/01/22 22:00 Urine Catheter - Catheter Streptococcus pneumoniae Antigen (M - Final Radiography Diagnostic Testing: Radiology Impression Chest X-Ray 03/23/22 11:05 IMPRESSION: Improvement in aeration of both lungs with mild residual bibasilar changes as well as blunting of both costophrenic angles. A left-sided double-lumen catheter is placed with the tip in the proximal portion of the superior vena cava. Electronically Signed: Akil Davis MD at 11:37 EST , Meaningful Use Info Meaningful Use Diagnoses (Choose all that apply): None applicable Discharge Plan Admission Admit Date/Time: 03/01/22 14:54 Primary Reason for Your Visit: Dyspnea/Orthopnea/Edema Attending Provider: Jesse King Primary Care Provider: Pedro Luis Shin Consulting Providers: Lor Lazaro ; Pedro Luis Baig ; Jesse King ; Tono Higginbotham ; Yoel Arevlao ; Get Garner ; Angus Pradhan ; Jai Fan ; Mando Santo ; Leeanne Martin ; Maia Maldonado Discharge Orders/Prescriptions Prescriptions: New metronidazole 500 mg Tablet 500 mg PO TID 28 Days Qty: 84 0RF ciprofloxacin HCl 500 mg Tablet 500 mg PO QPM 28 Days Qty: 28 0RF vancomycin 1,000 mg recon soln 1 g IV .see below 28 Days Qty: 12 0RF Rx Instructions: 1gm iv vanc to be given with dialysis sessions 3x/week dx: foot osteomyelitis weekly bmp, cbc, vanc trough, LFT. Fax to [phone] stop date 04/12/22. acetaminophen [Tylenol] 325 mg Tablet 650 mg PO Q4H PRN PRN (Reason: Fever, pain -01/08) Qty: 0 0RF albuterol sulfate 2.5 mg /3 mL (0.083 %) Solution For Nebulization 2.5 mg inhalation Q2H PRN PRN (Reason: Dyspnea, wheezing) Qty: 0 0RF loperamide 2 mg Capsule 2 mg PO Q2H PRN PRN (Reason: Diarrhea) Qty: 0 0RF loperamide 2 mg Capsule 2 mg PO Q12 Qty: 0 0RF clopidogrel 75 mg Tablet 75 mg PO DAILY Qty: 30 0RF insulin lispro [Humalog KwikPen Insulin] 100 unit/mL Insulin Pen See Protocol subcut ACHS Qty: 0 0RF Protocol: 3. Sliding Scale Insulin Med Dosing Condition: 150-189 mg/dl = 1 unit Condition: 190-229 mg/dl = 2 units Condition: 230-269 mg/dl = 3 units Condition: 270-309 mg/dl = 4 units Condition: 310-349 mg/dl = 5 units Condition: 350-399 mg/dl = 6 units Condition: 400-449 mg/dl = 7 units Condition: Greater than 449 call physician Protocol Text: - Use for Total Daily Dose of Insulin 37-55 units - Obsese, infected, or steroid patients MEDIUM DOSING ALGORITHIM acidophilus-pectin, citrus 25 million cell -100 mg Tablet 1 tab PO BID Qty: 0 0RF Creon 12,000-38,000 -60,000 unit Capsule,Delayed Release(Dr/Ec) 3 cap PO TIDCM Qty: 0 0RF Levy (with collagen) 7-7-1.5 gram Powder In Packet 1 packet PO BIDCM Qty: 0 0RF midodrine 5 mg Tablet 10 mg PO TIDCM Qty: 0 0RF melatonin 3 mg Tablet 3 mg PO QHS PRN PRN (Reason: Insomnia) Qty: 0 0RF pantoprazole 40 mg Tablet,Delayed Release (Dr/Ec) 40 mg PO BID Qty: 0 0RF alum-mag hydroxide-simeth [Mag-Al Plus Extra Strength] 400-400-40 mg/5 mL Suspension 30 ml PO Q6H PRN PRN (Reason: Gastric Burning) Qty: 0 0RF Deep Sea Nasal 0.65 % Aerosol,Max 2 spray NASAL BID PRN PRN (Reason: NASAL DRYNESS) Qty: 44 0RF menthol-zinc oxide [Calmoseptine] 0.44-20.6 % Ointment 1 applic topical TID Qty: 0 0RF Protocol: *Topical Application Instructions APPLICATION INSTRUCTIONS: apply to coccyx Continued atorvastatin 80 mg tablet 80 mg PO QHS Qty: 90 3RF ascorbic acid (vitamin C) 500 mg tablet 500 mg PO DAILY cholecalciferol (vitamin D3) 25 mcg (1,000 unit) capsule 25 mcg PO DAILY Novolin N Flexpen 5 units QHS Novolin N Flexpen 12 units DAILY warfarin [Jantoven] 2 mg Tablet 2 mg PO DINNER Qty: 0 0RF Protocol: Dose Management Condition: Saturday Dose/Route: 2 mg Instruction: 1 x 2 mg tablet Condition: Saturday Dose/Route: 2 mg Instruction: 1 x 2 mg tablet Condition: Saturday Dose/Route: 0 mg Instruction: 0 tablets Condition: Saturday Dose/Route: 0 mg Instruction: 0 tablets Condition: Dose/Route: 2 mg Instruction: 1 x 2 mg tablet Condition: Saturday Dose/Route: 2 mg Instruction: 1 x 2 mg tablet Condition: Saturday Dose/Route: 2 mg Instruction: 1 x 2 mg tablet Protocol Text: Adjustment Start Date: Saturday02/27/22 INR Value: 5.4 INR Date: 02/27/22 Recheck Date: 03/01/22 (DME) Handicap Bebo Qty: 1 0RF Rx Instructions: As directed; Good from 08/03/19 - 08/02/24 Discontinued aspirin 81 MG tablet,delayed release (DR/EC) 81 mg PO DAILY omeprazole 20 mg capsule,delayed release(DR/EC) 20 mg PO DAILY PRN (Reason: acid reflux) Label Comments: TAKE 1 CAPSULE BY MOUTH ONCE DAILY 30 MINUTES BEFORE BREAKFAST ciprofloxacin HCl 750 mg tablet 750 mg PO BID Label Comments: TAKE 1 TABLET BY MOUTH TWICE DAILY losartan 25 mg tablet 25 mg PO DAILY Label Comments: TAKE 1 TABLET BY MOUTH ONCE DAILY doxycycline hyclate 100 mg tablet 100 mg PO BID Label Comments: TAKE 1 TABLET BY MOUTH TWICE DAILY potassium chloride 20 mEq tablet extended release 20 meq PO DAILY metoprolol succinate 100 mg tablet extended release 24 hr 100 mg PO BID Qty: 180 6RF spironolactone 25 mg tablet 25 mg PO DAILY Qty: 30 6RF furosemide 40 mg tablet 40 mg PO BID Referrals / Follow Up: Jai Fan DPM [Med Staff - Active Staff] - In 1 Week Mando Santo MD [Med Staff - Active Staff] - See Referral Note (as scheduled) Annabella Mondragon MD [Med Staff - Consulting] - Within 2 Weeks Pedro Luis Shin MD [Primary Care Provider] - Within 1 Month Yoel Arevalo MD [Med Staff - Active Staff] - Within 1 Month Disposition Disposition (needs filled in before D/C Order can be placed): [facility] Charges/Coding Visit Charges Inpatient E&M: 62816 Disch Hosp
--- NOTE | 2022-03-24 10:30 | PCM.PN.REN ---
Subjective Subjective Follow-up on acute kidney injury requiring dialysis. He has left-sided tunneled hemodialysis catheter. He status post hemodialysis yesterday. He is hypotensive today, no symptoms. Has not been eating well. Objective Data Objective Data Vital Signs: Vital Signs Temp Pulse Resp BP Pulse Ox O2 Del Method O2 Flow Rate 98.1 F 96 17 108/39 L 95 Nasal Cannula 2 03/24/22 09:57 03/24/22 09:57 03/24/22 09:57 03/24/22 09:57 03/24/22 09:57 03/24/22 09:57 03/24/22 09:57 FiO2 30 03/22/22 15:12 Oxygen Flow Rate (L/min) 2 Oxygen Delivery Method Nasal Cannula Weight: 74.7 kg Body Mass Index (BMI) 26.9 Intake & Output: Intake and Output for Last 24 Hours 03/22/22 03/23/22 03/24/22 23:59 23:59 23:59 Intake Total 580 / 580 172.75 / 172.75 Output Total 1500 / 1500 1800 / 1800 0 / 0 Balance -920 / -920 -1627.25 / -1627.25 0 / 0 Lab / Micro Data Attestation: I reviewed the patient's lab results. Result Diagrams: 03/24/22 06:10 03/24/22 06:10 Labs: Laboratory Results - last 24 hr 03/23/22 12:36: POC Glucose 54 L 03/23/22 13:06: POC Glucose 135 H 03/23/22 16:59: POC Glucose 84 03/23/22 21:33: POC Glucose 81 03/24/22 06:10: Random Vancomycin 12.4 03/24/22 06:10: WBC 17.1 H, RBC 2.71 L, Hgb 8.4 L, Hct 28.1 L, MCV 103.7 H D, MCH 31.0, MCHC 29.9 L, RDW Std Deviation 73.8 H, RDW Coeff of Nguyen 19.6 H, Plt Count 150, MPV 11.1, Immature Gran % (Auto) 1.200 H, Neut % (Auto) 90.7 H, Lymph % (Auto) 1.8 L, [place] % (Auto) 6.1, Eos % (Auto) 0.1, Baso % (Auto) 0.1, Absolute Neuts (auto) 15.5 H, Absolute Lymphs (auto) 0.31 L, Nucleated RBC % 0.1, Platelet Estimate ADEQUATE, Polychromasia 1+, Poikilocytosis 1+, Anisocytosis 1+, Macrocytosis 2+, Ovalocytes 1+, Acanthocytes (Spur) 1+ 03/24/22 06:10: Sodium 132 L, Potassium 4.6, Chloride 100, Carbon Dioxide 24.0, Anion Gap 8, BUN 33 H, Creatinine 2.53 H, Estim Creat Clear Calc 22.86, Est GFR (MDRD) Af Amer 32 L, Est GFR (MDRD) Non-Af 26 L, BUN/Creatinine Ratio 13.0, Glucose 82, Calcium 8.3 L 03/24/22 06:17: POC Glucose 83 Micro: Microbiology 03/17/22 09:07 Sputum, Expectorated/Coughed Gram Stain - Final 03/17/22 09:07 Sputum, Expectorated/Coughed Respiratory Culture - Final Mixed normal respiratory marquis. No Streptococcus pneumoniae, beta-hemolytic Streptococcus or Staphylococcus aureus isolated. 03/17/22 10:50 Stool Stool Lactoferrin - Final 03/17/22 05:45 Mucosa - Nasopharyngeal Respiratory Panel (PCR) - Final Rhinovirus 03/17/22 02:15 Nasal Secretion SARS-CoV-2 & FLU Antigen (Rapid) - Final 03/10/22 16:10 Stool Enteric Bacteriology - Final 03/10/22 16:10 Stool C. difficile DNA Amplification - Final 03/02/22 08:05 Blood Culture (Wb) - Neck Blood Culture - Final No growth in 5 days. 03/02/22 08:10 Blood Culture (Wb) - Right Forearm Blood Culture - Final No growth in 5 days. 03/04/22 09:40 Stool Stool Occult Blood (CANDIDA) - Final Occult Blood Positive 03/02/22 18:20 Stool C. difficile DNA Amplification - Final 03/01/22 21:30 Mucosa - Nasopharyngeal Respiratory Panel (PCR) - Final 03/01/22 22:00 Urine Catheter - Catheter Legionella Antigen - Final 03/01/22 22:00 Urine Catheter - Catheter Streptococcus pneumoniae Antigen (M - Final Radiography Diagnostic Testing: Radiology Impression Chest X-Ray 03/23/22 11:05 IMPRESSION: Improvement in aeration of both lungs with mild residual bibasilar changes as well as blunting of both costophrenic angles. A left-sided double-lumen catheter is placed with the tip in the proximal portion of the superior vena cava. Electronically Signed: Akil Davis MD at 11:37 EST , Rhythm Strip Rhythm Strip: Sinus Rhythm Rate: 82 Physical Exam Const alert and no apparent distress General Appearance: frail Orientation / Consciousness: oriented to person and oriented to place Nutritional Appearance: cachectic HEENT normocephalic Head and Scalp: atraumatic External Ear: external ears normal Neck no lymphadenopathy Resp no use of accessory muscles and clear to auscultation bilaterally Cardio Cardio Narrative: Irregular rhythm, harsh systolic murmur Rhythm: abnormal rhythm irregularly irregular GI non-tender Auscultation: normoactive bowel sounds Neuro Sensorium / Orientation: awake and alert Assessment & Plan Assessment/Plan (1) DAVIS (acute kidney injury): PLAN: He is hemodialysis dependent, makes very little urine. Has been dialyzed yesterday, planning to do next session on Saturday
--- NOTE | 2022-03-24 11:29 | NURSING ---
Pt being very rude to this RN and the INFUSION RN. Refused all meds at this time.
--- NOTE | 2022-03-24 12:08 | NURSING ---
This RN has made several attempts to call [facility] to give report. Have tried various options/extentions but have not been able to get a person on the line.
--- NOTE | 2022-03-24 12:20 | NURSING ---
Report called to Xiomara at [facility]. Patient going to room 302.
== END 2022-03-24 12:40 | disposition skilled nursing facility (03) | DRG 853 ==
LOC: ED 14:55 → ICU 15:02 → PCU 03-13 09:51
PROVIDERS: Anesthesiology; Hospitalist; Internal Medicine; Internal Medicine Critical Care Medicine; Internal Medicine Gastroenterology; Internal Medicine Infectious Disease; Internal Medicine Nephrology; Nurse Practitioner Adult Health; Student in an Organized Health Care Education/Training Program; Surgery; Admitting Provider Family Medicine; Emergency Provider Emergency Medicine; PCP Family Medicine; Visit Provider Family Medicine
PROC: 0JH63XZ Insertion of Tunneled Vascular Access Device into Chest Subcutaneous Tissue and Fascia, Percutaneous Approach (ICD-10-PCS; principal; 2022-03-09 09:00)
PROC: 0DJD8ZZ Inspection of Lower Intestinal Tract, Via Natural or Artificial Opening Endoscopic (ICD-10-PCS; CPT 45378; principal; 2022-03-15 15:55)
DX: A41.9 Sepsis, unspecified organism (principal); R65.21 Severe sepsis with septic shock; N17.0 Acute kidney failure with tubular necrosis; K25.4 Chronic or unspecified gastric ulcer with hemorrhage; K56.699 Other intestinal obstruction unspecified as to partial versus complete obstruction; D68.69 Other thrombophilia; E11.52 Type 2 diabetes mellitus with diabetic peripheral angiopathy with gangrene; I13.0 Hypertensive heart and chronic kidney disease with heart failure and stage 1 through stage 4 chronic kidney disease, or unspecified chronic kidney disease; I50.22 Chronic systolic (congestive) heart failure; L97.429 Non-pressure chronic ulcer of left heel and midfoot with unspecified severity; I85.00 Esophageal varices without bleeding; L97.812 Non-pressure chronic ulcer of other part of right lower leg with fat layer exposed; L97.822 Non-pressure chronic ulcer of other part of left lower leg with fat layer exposed; I70.92 Chronic total occlusion of artery of the extremities; K62.6 Ulcer of anus and rectum; I95.3 Hypotension of hemodialysis; E11.621 Type 2 diabetes mellitus with foot ulcer; I48.0 Paroxysmal atrial fibrillation; E11.628 Type 2 diabetes mellitus with other skin complications; L97.512 Non-pressure chronic ulcer of other part of right foot with fat layer exposed; L97.522 Non-pressure chronic ulcer of other part of left foot with fat layer exposed; I27.20 Pulmonary hypertension, unspecified; Z99.2 Dependence on renal dialysis; E11.22 Type 2 diabetes mellitus with diabetic chronic kidney disease; N18.32 Chronic kidney disease, stage 3b; E11.65 Type 2 diabetes mellitus with hyperglycemia; E11.51 Type 2 diabetes mellitus with diabetic peripheral angiopathy without gangrene; E11.622 Type 2 diabetes mellitus with other skin ulcer; Z79.4 Long term (current) use of insulin; E11.59 Type 2 diabetes mellitus with other circulatory complications; D69.6 Thrombocytopenia, unspecified; E87.5 Hyperkalemia; E78.5 Hyperlipidemia, unspecified; K21.9 Gastro-esophageal reflux disease without esophagitis; G47.33 Obstructive sleep apnea (adult) (pediatric); I25.5 Ischemic cardiomyopathy; I25.10 Atherosclerotic heart disease of native coronary artery without angina pectoris; F10.10 Alcohol abuse, uncomplicated; E87.6 Hypokalemia; D50.0 Iron deficiency anemia secondary to blood loss (chronic); I87.2 Venous insufficiency (chronic) (peripheral); F41.9 Anxiety disorder, unspecified; I08.3 Combined rheumatic disorders of mitral, aortic and tricuspid valves; R19.7 Diarrhea, unspecified; K31.819 Angiodysplasia of stomach and duodenum without bleeding; K64.4 Residual hemorrhoidal skin tags; K57.30 Diverticulosis of large intestine without perforation or abscess without bleeding; Z79.82 Long term (current) use of aspirin; Z79.01 Long term (current) use of 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s; B95.2 Enterococcus as the cause of diseases classified elsewhere; Z79.899 Other long term (current) drug therapy; Z95.1 Presence of aortocoronary bypass graft; Z95.810 Presence of automatic (implantable) cardiac defibrillator; R06.02 Shortness of breath
CPT/HCPCS: 36200; 36245; 36415; 36416; 37224; 37228; 71045; 73630; 75625; 75710; 76770; 76937; 77001; 80048; 80053; 80069; 80202; 81001; 82274; 82570; 82653; 82705; 82784; 82785; 82803; 82962; 83036; 83516; 83605; 83630; 83735; 83880; 83993; 84100; 84300; 84484; 84540; 85025; 85347; 85610; 85730; 86160; 86225; 86235; 86255; 86256; 86706; 86850; 86900; 86901; 86920; 87040; 87070; 87205; 87340; 87428; 87449; 87493; 87506; 87633; 88305; 88342; 90937; 93005; 93306; 93923; 94002; 94640; 94762; 97110; 97163; 97165; 97530; 97535; 97802; 97803; 99152; 99153; 99214; 99251; 99285; C1725; C1760; C1769; C1887; C2623; J7030; J7040; J7050; P9016; P9047; Q9957; Q9967; A4216; C1750; C1751; C1752; C8929; G0257; G0463; J0610; J2405; J3490

== ENCOUNTER 2022-03-27 05:39 | Inpatient (IN) | payer MEDICARE, OTHER, SELFPAY ==
[2022-03-27] VITALS (36 sets, daily range): BP systolic 60–121; BP diastolic 41–109; PULSE 75–143; RESP 12–36; TEMP 35.7–36.7; O2SAT 40–100; BMI 26.3; BMI 27.1
--- NOTE | 2022-03-27 05:45 | RAD_ITS ---
EXAM: XR CHEST, 1 VIEW CLINICAL INDICATION: sob TECHNIQUE: Frontal view of the chest. This report was created using [employer] report generation technology. COMPARISON: Previous chest radiograph of 03/23/2022 and 03/20/2022. FINDINGS: LUNGS AND PLEURAL SPACES: Continued discoid atelectasis within the retrocardiac portion of the left lower lung. Interval development of asymmetric patchy airspace disease in the right lower lung. Continued blunting of the costophrenic angles by pleural effusions and/or pleural thickening. Calcified pleural plaque again noted along the left hemidiaphragm. Stable biapical pleural thickening. No pneumothorax. HEART: Heart size remains moderately enlarged with normal pulmonary vasculature for technique. MEDIASTINUM: Stable mild elongation and calcification of the thoracic aorta. 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 No acute osseous abnormality. SOFT TISSUES: Unremarkable. VASCULATURE: Coronary artery calcification and axillary atherosclerotic calcification again noted. TUBES, LINES AND DEVICES: Cardiac pacemaker/internal defibrillator remains in place. Stable positioning of the multilumen left jugular venous catheter. RAD/Chest 1 View (Portable) IMPRESSION: Interval development of mild asymmetric patchy airspace disease in the right lower lung, suspicious for pneumonia. Electronically Signed: Mir Weems MD at 6:44 EST ,
--- NOTE | 2022-03-27 05:46 | EKG12_ITS ---
Test Reason : CHEST PAIN Blood Pressure : / mmHG Vent. Rate : 121 BPM Atrial Rate : 094 BPM P-R Int : 000 ms QRS Dur : 094 ms QT Int : 358 ms P-R-T Axes : 000 016 165 degrees QTc Int : 508 ms Atrial fibrillation with premature ventricular or aberrantly conducted complexes Inferior infarct , age undetermined , cannot be excluded Marked ST abnormality, possible lateral subendocardial injury Abnormal ECG Confirmed by YAN SANCHEZ, RAUL ([id number]), material expeditor CHINYERE FIELDS ([id number]) on 03/29/2022 8:20:31 AM Referred By: ROSALINA Confirmed By:RAUL HEREDIA MD
[2022-03-27] MEDS: Midodrine HCl 5 MG Tablet 10 MG PO (06:22)
--- NOTE | 2022-03-27 06:28 | EX.ED.DYSGE1 ---
HPI <Dr. Darlene Pike MD - Last Filed: 03/27/22 07:02> History of Present Illness Chief Complaint: Shortness of Breath Informant: patient Onset/Context/Timing Onset: Days Context: Gradual Onset Narrative Narrative: Patient presents from [facility] secondary to increased shortness of breath. On review of records it appears the patient was admitted to the hospital March 01 and discharged to the [facility] on March 24. He had acute renal failure and was initiated on dialysis during his hospital stay. He has a tunneled dialysis catheter in his chest. He reportedly got a full run of dialysis yesterday. Patient reports increasing shortness of breath with a lot of mucus. He is currently on antibiotics for necrotic toe and osteomyelitis. On review of records patient has had problems with hypotension. He is currently on midodrine. During his last hospitalization he did require short course of Levophed for blood pressure support. He suffered a GI bleed but he was in the hospital and required endoscopy. He had vascular studies performed to try to open up vessels to his lower extremity to improve blood flow. He is scheduled to have another procedure done in April. [facility] <Dr. Darlene Pike MD - Last Filed: 03/27/22 07:02> [facility] Medical History Acute on chronic systolic (congestive) heart failure DAVIS (acute kidney injury) Alcohol abuse Atherosclerosis of coronary artery bypass graft without angina pectoris Atrial fibrillation Bilateral lower extremity edema CAD (coronary artery disease) Cardiac dysrhythmia Cardiomyopathy Chronic systolic congestive heart failure Chronic ulcer of toe of left foot with fat layer exposed Congestive heart failure Diarrhea MENDOZA (dyspnea on exertion) Elevated troponin Essential (primary) hypertension GERD (gastroesophageal reflux disease) Heavy alcohol use History of pleural effusion HLD (hyperlipidemia) Implantable cardioverter-defibrillator (ICD) at end of battery life Ischemic cardiomyopathy longterm current use of amiodarone longterm current use of 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 Metabolic acidosis Non-rheumatic tricuspid valve insufficiency NSTEMI (non-ST elevated myocardial infarction) 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 RITESH (obstructive sleep apnea) Paroxysmal atrial fibrillation Paroxysmal atrial fibrillation with rapid ventricular response Paroxysmal atrial flutter Peripheral vascular disease Pleural effusion Productive cough Secondary pulmonary arterial hypertension Septic shock Shock circulatory Skin ulcer of left great toe with fat layer exposed Sleep apnea Type 2 diabetes mellitus Type 2 diabetes mellitus Ulcer of left lower extremity with fat layer exposed Ulcer of right foot with fat layer exposed Ulcer of right lower extremity with fat layer exposed Ventricular tachycardia Home Medications Handicap Placard #1 ea 08/28/19 [Rx Last Taken Unknown] atorvastatin 80 mg tablet 80 mg PO QHS #90 tabs 05/23/21 [Rx Last Taken 02/28/22] Novolin N Flexpen 5 units QHS diabetes 11/03/21 [History Last Taken 02/28/22] Novolin N Flexpen 12 units DAILY daily 11/03/21 [History Last Taken 02/28/22] warfarin 2 mg tablet (Jantoven) 2 mg PO DINNER #0 tabs 11/06/21 [Rx Last Taken 02/26/22] ascorbic acid (vitamin C) 500 mg tablet 500 mg PO DAILY 01/01/22 [History Last Taken 03/01/22] cholecalciferol (vitamin D3) 25 mcg (1,000 unit) capsule 25 mcg PO DAILY 01/01/22 [History Last Taken Unknown] ciprofloxacin HCl 500 mg tablet 500 mg PO QPM 28 days #28 tabs 03/14/22 [Rx Last Taken Unknown] metronidazole 500 mg tablet 500 mg PO TID 28 days #84 tabs 03/14/22 [Rx Last Taken Unknown] vancomycin 1,000 mg intravenous injection 1 g IV .see below 28 days #12 ea 03/14/22 [Rx Last Taken Unknown] acidophilus 25 million cell-pectin, citrus 100 mg tablet 1 tab PO BID #0 tabs 03/20/22 [Rx Last Taken Unknown] albuterol sulfate 2.5 mg/3 mL (0.083 %) solution for nebulization 2.5 mg (3 mL) inhalation Q2H PRN PRN Dyspnea, wheezing #0 mL 03/20/22 [Rx Last Taken Unknown] aluminum-mag hydroxide-simethicone 400 mg-400 mg-40 mg/5 mL oral susp (Mag-Al Plus Extra Strength) 30 ml PO Q6H PRN PRN Gastric Burning #0 mL 03/20/22 [Rx Last Taken Unknown] arginine 7 gram-glutam 7 gram-CaHMB 1.5 lhvf-dvyke-ez-min oral pwd pkt (Levy (with collagen)) 1 packet PO BIDCM #0 ea 03/20/22 [Rx Last Taken Unknown] clopidogrel 75 mg tablet 75 mg PO DAILY #30 tabs 03/20/22 [Rx Last Taken Unknown] insulin lispro 100 unit/mL subcutaneous pen (Humalog KwikPen (U-100) Insulin) See Protocol subcut ACHS #0 mL 03/20/22 [Rx Last Taken Unknown] ujiddo-oghbxjtm-fkxkrzd 12,000-38,000-60,000 unit capsule,delayed rel (Creon) 3 cap PO TIDCM #0 caps 03/20/22 [Rx Last Taken Unknown] loperamide 2 mg capsule 2 mg PO Q12 #0 caps 03/20/22 [Rx Last Taken Unknown] loperamide 2 mg capsule 2 mg PO Q2H PRN PRN Diarrhea #0 caps 03/20/22 [Rx Last Taken Unknown] melatonin 3 mg tablet 3 mg PO QHS PRN PRN Insomnia #0 tabs 03/20/22 [Rx Last Taken Unknown] menthol 0.44 %-zinc oxide 20.6 % topical ointment (Calmoseptine) 1 applic topical TID #0 grams 03/20/22 [Rx Last Taken Unknown] midodrine 5 mg tablet 10 mg PO TIDCM #0 tabs 03/20/22 [Rx Last Taken Unknown] sodium chloride 0.65 % nasal spray aerosol (Deep Sea Nasal) 2 spray NASAL BID PRN PRN NASAL DRYNESS #44 mL 03/20/22 [Rx Last Taken Unknown] acetaminophen 325 mg tablet (Tylenol) 650 mg PO Q4H PRN PRN Fever, pain 1-01/0803/27/22 [History Last Taken Unknown] pantoprazole 40 mg tablet,delayed release 40 mg PO DAILY 03/27/22 [History Last Taken Unknown] Allergy/AdvReac Type Severity Reaction Status Date / Time amiodarone Allergy Shortness Verified 03/14/22 15:49 of breath lisinopril AdvReac cough Verified 03/01/22 13:28 Family History Mother Bleeding in brain due to brain aneurysm Father History of aneurysm of peripheral artery Surgical History H/O coronary artery bypass surgery (1997) History of coronary artery stent placement (01/2016) History of hernia surgery History of implantable cardiac defibrillator (ICD) (02/11/20) History of thoracentesis Hx of CABG S/P PTCA (percutaneous transluminal coronary angioplasty) Social History household members: spouse Smoking Status: Never smoker alcohol intake: current alcohol intake frequency: a few times a week Alcohol type: beer substance use type: does not use caffeine: Yes Type: coffee Number of servings: 2 what type of physical activity do you participate in: none seatbelt use: never do you feel safe at home: Yes ROS <Dr. Darlene Pike MD - Last Filed: 03/27/22 07:02> ROS ED Constitutional Constitutional ED: Denies chills or fever(s) Eyes Eyes: Denies change in vision or discharge from eye(s) ENT ENT ED: Denies discharge from eye(s), rhinorrhea or sore throat Cardiovascular Cardiovascular: Denies chest pain or palpitations Respiratory/Chest Respiratory/Chest: Reports cough and dyspnea Gastrointestinal Gastrointestinal: Denies abdominal pain, diarrhea, nausea or vomiting Genitourinary Genitourinary ED: Reports other Details: Makes little to no urine. Musculoskeletal Musculoskeletal: Denies back pain or extremity pain Integumentary Reports other Details: Necrotic left great toe ; Denies Abrasions or rash Neurologic Neurologic: Reports weakness; Denies headache(s) Psychiatric Psychiatric: Reports anxiety Allergic/Immunologic Allergic/Immunologic ED: Denies lip swelling or urticaria EXAM <Dr. Darlene Pike MD - Last Filed: 03/27/22 07:02> Physical Exam Const Vital Signs: 03/27/22 05:40 03/27/22 05:49 03/27/22 06:09 Temperature 96.2 F L Temperature Source Temporal Pulse Rate 75 Respiratory Rate 22 H Respiratory Depth Deep Respiratory Pattern Tachypnea Blood Pressure 60/44 L 82/54 L Blood Pressure Mean 49 63 Pulse Ox 98 Oxygen Delivery Method Nasal Cannula Nasal Cannula Oxygen Flow Rate (L/min) 3 2 Fraction of Inspired Oxygen (FIO2) 03/27/22 06:49 03/27/22 06:35 03/27/22 07:15 Temperature Temperature Source Pulse Rate 104 H 98 Respiratory Rate 36 H 27 H Respiratory Depth Respiratory Pattern Tachypnea Blood Pressure 72/46 L 93/64 Blood Pressure Mean 54 73 Pulse Ox 100 94 Oxygen Delivery Method Bi-pap Oxygen Flow Rate (L/min) Fraction of Inspired Oxygen (FIO2) 40 03/27/22 07:31 03/27/22 08:08 03/27/22 08:00 Temperature 98.1 F Temperature Source Temporal Pulse Rate 106 H 111 H 143 H Respiratory Rate 28 H Respiratory Depth Respiratory Pattern Blood Pressure 83/65 L 87/69 L 87/69 L Blood Pressure Mean 71 75 75 Pulse Ox 94 Oxygen Delivery Method Bi-pap Oxygen Flow Rate (L/min) Fraction of Inspired Oxygen (FIO2) 03/27/22 08:15 Temperature Temperature Source Pulse Rate 125 H Respiratory Rate Respiratory Depth Respiratory Pattern Blood Pressure 88/58 L Blood Pressure Mean 68 Pulse Ox Oxygen Delivery Method Oxygen Flow Rate (L/min) Fraction of Inspired Oxygen (FIO2) Positive cachectic General Appearance ED: cachectic Nutritional Appearance: cachectic HEENT Reports moist mucous membranes Eyes EOMs intact bilaterally Chest Wall inspection of chest normal and palpation of chest normal Chest Narrative: Left IJ dialysis catheter noted. Resp Resp Narrative: Crackles noted bilaterally. Cardio Rhythm: abnormal rhythm irregularly irregular GI GI Narrative: Abdomen soft and nontender. Extremity Extremity Narrative: Peripheral edema noted to the upper and lower extremities. Necrotic left great toe. Neuro oriented x3 Psych Mood & Affect: anxious <Dr. Kush Reynoso MD - Last Filed: 03/27/22 16:21> Physical Exam Const Vital Signs: 03/27/22 05:40 03/27/22 05:49 03/27/22 06:09 Temperature 96.2 F L Temperature Source Temporal Pulse Rate 75 Respiratory Rate 22 H Respiratory Depth Deep Respiratory Pattern Tachypnea Blood Pressure 60/44 L 82/54 L Blood Pressure Mean 49 63 Pulse Ox 98 Oxygen Delivery Method Nasal Cannula Nasal Cannula Oxygen Flow Rate (L/min) 3 2 Fraction of Inspired Oxygen (FIO2) 03/27/22 06:49 03/27/22 06:35 03/27/22 07:15 Temperature Temperature Source Pulse Rate 104 H 98 Respiratory Rate 36 H 27 H Respiratory Depth Respiratory Pattern Tachypnea Blood Pressure 72/46 L 93/64 Blood Pressure Mean 54 73 Pulse Ox 100 94 Oxygen Delivery Method Bi-pap Oxygen Flow Rate (L/min) Fraction of Inspired Oxygen (FIO2) 40 03/27/22 07:31 03/27/22 08:08 03/27/22 08:00 Temperature 98.1 F Temperature Source Temporal Pulse Rate 106 H 111 H 143 H Respiratory Rate 28 H Respiratory Depth Respiratory Pattern Blood Pressure 83/65 L 87/69 L 87/69 L Blood Pressure Mean 71 75 75 Pulse Ox 94 Oxygen Delivery Method Bi-pap Oxygen Flow Rate (L/min) Fraction of Inspired Oxygen (FIO2) 03/27/22 08:15 Temperature Temperature Source Pulse Rate 125 H Respiratory Rate Respiratory Depth Respiratory Pattern Blood Pressure 88/58 L Blood Pressure Mean 68 Pulse Ox Oxygen Delivery Method Oxygen Flow Rate (L/min) Fraction of Inspired Oxygen (FIO2) MDM <Dr. Darlene Pike MD - Last Filed: 03/27/22 07:02> [facility] Narrative Medical decision making narrative: Patient placed on alarm security or surveillance monitor. Manual blood pressures were obtained as the machine generated pressures were not reading consistently. Chest x-ray, lab work obtained. Patient is a very difficult IV stick. He was given p.o. midodrine to help his blood pressure while we are attempting to get IV access. PICC line has been requested. Lab Data Attestation: I reviewed the patient's lab results. Labs: Laboratory Results - last 24 hr 03/27/22 03/27/22 03/27/22 06:11 06:11 06:11 WBC Cancelled Corrected WBC Cancelled RBC Cancelled Hgb Cancelled Hct Cancelled MCV Cancelled MCH Cancelled MCHC Cancelled RDW Std Deviation Cancelled RDW Coeff of Nguyen Cancelled Plt Count Cancelled MPV Cancelled Immature Gran % (Auto) Cancelled Neut % (Auto) Cancelled Lymph % (Auto) Cancelled [place] % (Auto) Cancelled Eos % (Auto) Cancelled Baso % (Auto) Cancelled Absolute Neuts (auto) Cancelled Absolute Lymphs (auto) Cancelled Total Counted Cancelled Neutrophils % (Manual) Cancelled Band Neutrophils % Cancelled Lymphocytes % (Manual) Cancelled Monocytes % (Manual) Cancelled Eosinophils % (Manual) Cancelled Basophils % (Manual) Cancelled Metamyelocytes % Cancelled Myelocytes % Cancelled Promyelocytes % Cancelled Blast Cells % Cancelled Plasma Cell % (Manual) Cancelled Other Cells % Cancelled Nucleated RBC % Cancelled Nucleated RBCs/100 WBC Cancelled Differential Comment Cancelled Diff Path Review Cancelled Hypersegmented Neuts Cancelled Atypical Lymphocytes Cancelled Reactive Lymphocytes Cancelled Smudge Cells Cancelled Toxic Granulation Cancelled Toxic Vacuolation Cancelled Dohle Bodies Cancelled Celestine Rods Cancelled Platelet Estimate Cancelled Plt Morphology Comment Cancelled RBC Morphology Cancelled Polychromasia Cancelled Hypochromasia Cancelled Poikilocytosis Cancelled Basophilic Stippling Cancelled Anisocytosis Cancelled Microcytosis Cancelled Macrocytosis Cancelled Spherocytes Cancelled Sickle Cells Cancelled Target Cells Cancelled Tear Drop Cells Cancelled Ovalocytes Cancelled Stomatocytes Cancelled [place] Bodies Cancelled Thai Cells Cancelled Bite Cells Cancelled Crenated Cell Cancelled Acanthocytes (Spur) Cancelled Rouleaux Cancelled Schistocytes Cancelled PT INR Sodium 135 L Potassium 3.9 Chloride 97 L Carbon Dioxide 31.0 Anion Gap 7 BUN 39 H Creatinine 3.15 H Estim Creat Clear Calc 19.00 Est GFR (MDRD) Af Amer 25 L Est GFR (MDRD) Non-Af 21 L BUN/Creatinine Ratio 12.4 Glucose 231 H Lactic Acid Calcium 7.8 L Total Bilirubin 0.80 Direct Bilirubin 0.47 H AST 25 ALT 16 Alkaline Phosphatase 126 H Troponin I High Sens 231 H* B-Natriuretic Peptide Cancelled Total Protein 6.1 L Albumin 2.1 L Globulin 4.0 03/27/22 03/27/22 03/27/22 06:18 06:18 06:18 WBC 18.6 H Corrected WBC RBC 2.77 L Hgb 8.2 L Hct 28.2 L MCV 101.8 H MCH 29.6 MCHC 29.1 L RDW Std Deviation 71.0 H RDW Coeff of Nguyen 19.0 H Plt Count 154 MPV 10.7 Immature Gran % (Auto) 1.000 H Neut % (Auto) 91.8 H Lymph % (Auto) 1.6 L [place] % (Auto) 5.4 Eos % (Auto) 0.1 Baso % (Auto) 0.1 Absolute Neuts (auto) 17.1 H Absolute Lymphs (auto) 0.30 L Total Counted Neutrophils % (Manual) Band Neutrophils % Lymphocytes % (Manual) Monocytes % (Manual) Eosinophils % (Manual) Basophils % (Manual) Metamyelocytes % Myelocytes % Promyelocytes % Blast Cells % Plasma Cell % (Manual) Other Cells % Nucleated RBC % 0 Nucleated RBCs/100 WBC Differential Comment Diff Path Review Hypersegmented Neuts Atypical Lymphocytes Reactive Lymphocytes Smudge Cells Toxic Granulation Toxic Vacuolation Dohle Bodies Celestine Rods Platelet Estimate Plt Morphology Comment RBC Morphology Polychromasia Hypochromasia 1+ Poikilocytosis Basophilic Stippling Anisocytosis 2+ Microcytosis Macrocytosis 2+ Spherocytes Sickle Cells Target Cells Tear Drop Cells Ovalocytes Stomatocytes [place] Bodies Thai Cells 1+ Bite Cells Crenated Cell Acanthocytes (Spur) 1+ Rouleaux Schistocytes PT 23.8 H INR 2.2 Sodium Potassium Chloride Carbon Dioxide Anion Gap BUN Creatinine Estim Creat Clear Calc Est GFR (MDRD) Af Amer Est GFR (MDRD) Non-Af BUN/Creatinine Ratio Glucose Lactic Acid 2.4 H* Calcium Total Bilirubin Direct Bilirubin AST ALT Alkaline Phosphatase Troponin I High Sens B-Natriuretic Peptide Total Protein Albumin Globulin 03/27/22 06:18 WBC Corrected WBC RBC Hgb Hct MCV MCH MCHC RDW Std Deviation RDW Coeff of Nguyen Plt Count MPV Immature Gran % (Auto) Neut % (Auto) Lymph % (Auto) [place] % (Auto) Eos % (Auto) Baso % (Auto) Absolute Neuts (auto) Absolute Lymphs (auto) Total Counted Neutrophils % (Manual) Band Neutrophils % Lymphocytes % (Manual) Monocytes % (Manual) Eosinophils % (Manual) Basophils % (Manual) Metamyelocytes % Myelocytes % Promyelocytes % Blast Cells % Plasma Cell % (Manual) Other Cells % Nucleated RBC % Nucleated RBCs/100 WBC Differential Comment Diff Path Review Hypersegmented Neuts Atypical Lymphocytes Reactive Lymphocytes Smudge Cells Toxic Granulation Toxic Vacuolation Dohle Bodies Celestine Rods Platelet Estimate Plt Morphology Comment RBC Morphology Polychromasia Hypochromasia Poikilocytosis Basophilic Stippling Anisocytosis Microcytosis Macrocytosis Spherocytes Sickle Cells Target Cells Tear Drop Cells Ovalocytes Stomatocytes [place] Bodies Thai Cells Bite Cells Crenated Cell Acanthocytes (Spur) Rouleaux Schistocytes PT INR Sodium Potassium Chloride Carbon Dioxide Anion Gap BUN Creatinine Estim Creat Clear Calc Est GFR (MDRD) Af Amer Est GFR (MDRD) Non-Af BUN/Creatinine Ratio Glucose Lactic Acid Calcium Total Bilirubin Direct Bilirubin AST ALT Alkaline Phosphatase Troponin I High Sens B-Natriuretic Peptide 3336.4 H Total Protein Albumin Globulin Radiography Chest X-Ray - ED: 1 View, Read by ED Physician and CHF Diagnostic Testing: Clinical Impression(s) from Imaging Studies Chest X-Ray 03/27/22 05:45 IMPRESSION: Interval development of mild asymmetric patchy airspace disease in the right lower lung, suspicious for pneumonia. Electronically Signed: Mir Weems MD at 6:44 EST , EKG Initial EKG: Attestation: I personally reviewed and interpreted this EKG as follows: Interpretation: Atrial Fibrillation (Atrial fibrillation 97 bpm. Occasional PVCs. No acute ischemia.) Treatment and Re-Evaluation Narrative: Small IV line has been established. INR is 2.2. Remainder of lab work is still pending at this time. Chest x-ray per my interpretation reveals CHF. Radiology feels this may represent pneumonia. Patient was placed on BiPAP to help with breathing. Manual blood pressure at this time is 72/46. 500 cc IV fluid bolus has been ordered. On review of his recent hospitalization appears his blood pressure was running 90s over 60s throughout his hospital stay. At this time patient needs a PICC line placed for good access. This has been requested. He may require transient pressors to help with blood pressure support. Remainder of labs are pending at this time. Patient will require admission. <Dr. Kush Reynoso MD - Last Filed: 03/27/22 16:21> [facility] Lab Data Labs: Laboratory Results - last 24 hr 03/27/22 03/27/22 03/27/22 06:11 06:11 06:11 WBC Cancelled Corrected WBC Cancelled RBC Cancelled Hgb Cancelled Hct Cancelled MCV Cancelled MCH Cancelled MCHC Cancelled RDW Std Deviation Cancelled RDW Coeff of Nguyen Cancelled Plt Count Cancelled MPV Cancelled Immature Gran % (Auto) Cancelled Neut % (Auto) Cancelled Lymph % (Auto) Cancelled [place] % (Auto) Cancelled Eos % (Auto) Cancelled Baso % (Auto) Cancelled Absolute Neuts (auto) Cancelled Absolute Lymphs (auto) Cancelled Total Counted Cancelled Neutrophils % (Manual) Cancelled Band Neutrophils % Cancelled Lymphocytes % (Manual) Cancelled Monocytes % (Manual) Cancelled Eosinophils % (Manual) Cancelled Basophils % (Manual) Cancelled Metamyelocytes % Cancelled Myelocytes % Cancelled Promyelocytes % Cancelled Blast Cells % Cancelled Plasma Cell % (Manual) Cancelled Other Cells % Cancelled Nucleated RBC % Cancelled Nucleated RBCs/100 WBC Cancelled Differential Comment Cancelled Diff Path Review Cancelled Hypersegmented Neuts Cancelled Atypical Lymphocytes Cancelled Reactive Lymphocytes Cancelled Smudge Cells Cancelled Toxic Granulation Cancelled Toxic Vacuolation Cancelled Dohle Bodies Cancelled Celestine Rods Cancelled Platelet Estimate Cancelled Plt Morphology Comment Cancelled RBC Morphology Cancelled Polychromasia Cancelled Hypochromasia Cancelled Poikilocytosis Cancelled Basophilic Stippling Cancelled Anisocytosis Cancelled Microcytosis Cancelled Macrocytosis Cancelled Spherocytes Cancelled Sickle Cells Cancelled Target Cells Cancelled Tear Drop Cells Cancelled Ovalocytes Cancelled Stomatocytes Cancelled [place] Bodies Cancelled [place] Cells Cancelled Bite Cells Cancelled Crenated Cell Cancelled Acanthocytes (Spur) Cancelled Rouleaux Cancelled Schistocytes Cancelled PT INR Sodium 135 L Potassium 3.9 Chloride 97 L Carbon Dioxide 31.0 Anion Gap 7 BUN 39 H Creatinine 3.15 H Estim Creat Clear Calc 19.00 Est GFR (MDRD) Af Amer 25 L Est GFR (MDRD) Non-Af 21 L BUN/Creatinine Ratio 12.4 Glucose 231 H Lactic Acid Calcium 7.8 L Total Bilirubin 0.80 Direct Bilirubin 0.47 H AST 25 ALT 16 Alkaline Phosphatase 126 H Troponin I High Sens 231 H* B-Natriuretic Peptide Cancelled Total Protein 6.1 L Albumin 2.1 L Globulin 4.0 03/27/22 03/27/22 03/27/22 06:18 06:18 06:18 WBC 18.6 H Corrected WBC RBC 2.77 L Hgb 8.2 L Hct 28.2 L MCV 101.8 H MCH 29.6 MCHC 29.1 L RDW Std Deviation 71.0 H RDW Coeff of Nguyen 19.0 H Plt Count 154 MPV 10.7 Immature Gran % (Auto) 1.000 H Neut % (Auto) 91.8 H Lymph % (Auto) 1.6 L [place] % (Auto) 5.4 Eos % (Auto) 0.1 Baso % (Auto) 0.1 Absolute Neuts (auto) 17.1 H Absolute Lymphs (auto) 0.30 L Total Counted Neutrophils % (Manual) Band Neutrophils % Lymphocytes % (Manual) Monocytes % (Manual) Eosinophils % (Manual) Basophils % (Manual) Metamyelocytes % Myelocytes % Promyelocytes % Blast Cells % Plasma Cell % (Manual) Other Cells % Nucleated RBC % 0 Nucleated RBCs/100 WBC Differential Comment Diff Path Review Hypersegmented Neuts Atypical Lymphocytes Reactive Lymphocytes Smudge Cells Toxic Granulation Toxic Vacuolation Dohle Bodies Celestine Rods Platelet Estimate Plt Morphology Comment RBC Morphology Polychromasia Hypochromasia 1+ Poikilocytosis Basophilic Stippling Anisocytosis 2+ Microcytosis Macrocytosis 2+ Spherocytes Sickle Cells Target Cells Tear Drop Cells Ovalocytes Stomatocytes [place] Bodies Thai Cells 1+ Bite Cells Crenated Cell Acanthocytes (Spur) 1+ Rouleaux Schistocytes PT 23.8 H INR 2.2 Sodium Potassium Chloride Carbon Dioxide Anion Gap BUN Creatinine Estim Creat Clear Calc Est GFR (MDRD) Af Amer Est GFR (MDRD) Non-Af BUN/Creatinine Ratio Glucose Lactic Acid 2.4 H* Calcium Total Bilirubin Direct Bilirubin AST ALT Alkaline Phosphatase Troponin I High Sens B-Natriuretic Peptide Total Protein Albumin Globulin 03/27/22 06:18 WBC Corrected WBC RBC Hgb Hct MCV MCH MCHC RDW Std Deviation RDW Coeff of Nguyen Plt Count MPV Immature Gran % (Auto) Neut % (Auto) Lymph % (Auto) [place] % (Auto) Eos % (Auto) Baso % (Auto) Absolute Neuts (auto) Absolute Lymphs (auto) Total Counted Neutrophils % (Manual) Band Neutrophils % Lymphocytes % (Manual) Monocytes % (Manual) Eosinophils % (Manual) Basophils % (Manual) Metamyelocytes % Myelocytes % Promyelocytes % Blast Cells % Plasma Cell % (Manual) Other Cells % Nucleated RBC % Nucleated RBCs/100 WBC Differential Comment Diff Path Review Hypersegmented Neuts Atypical Lymphocytes Reactive Lymphocytes Smudge Cells Toxic Granulation Toxic Vacuolation Dohle Bodies Celestine Rods Platelet Estimate Plt Morphology Comment RBC Morphology Polychromasia Hypochromasia Poikilocytosis Basophilic Stippling Anisocytosis Microcytosis Macrocytosis Spherocytes Sickle Cells Target Cells Tear Drop Cells Ovalocytes Stomatocytes [place] Bodies [place] Cells Bite Cells Crenated Cell Acanthocytes (Spur) Rouleaux Schistocytes PT INR Sodium Potassium Chloride Carbon Dioxide Anion Gap BUN Creatinine Estim Creat Clear Calc Est GFR (MDRD) Af Amer Est GFR (MDRD) Non-Af BUN/Creatinine Ratio Glucose Lactic Acid Calcium Total Bilirubin Direct Bilirubin AST ALT Alkaline Phosphatase Troponin I High Sens B-Natriuretic Peptide 3336.4 H Total Protein Albumin Globulin Radiography Diagnostic Testing: Clinical Impression(s) from Imaging Studies Chest X-Ray 03/27/22 05:45 IMPRESSION: Interval development of mild asymmetric patchy airspace disease in the right lower lung, suspicious for pneumonia. Electronically Signed: Mir Weems MD at 6:44 EST , Treatment and Re-Evaluation Narrative: Small IV line has been established. INR is 2.2. Remainder of lab work is still pending at this time. Chest x-ray per my interpretation reveals CHF. Radiology feels this may represent pneumonia. Patient was placed on BiPAP to help with breathing. Manual blood pressure at this time is 72/46. 500 cc IV fluid bolus has been ordered. On review of his recent hospitalization appears his blood pressure was running 90s over 60s throughout his hospital stay. At this time patient needs a PICC line placed for good access. This has been requested. He may require transient pressors to help with blood pressure support. Remainder of labs are pending at this time. Patient will require admission. Took over care of this patient until disposition to the ICU with Dr. Baig. He discussed with renal, they do not want a PICC in place due to the tunneled catheter in the left upper chest, therefore that was canceled and we watched the patient's blood pressure while giving him a little fluid. His blood pressure remained adequate, no central line or pressors needed at this time but the patient is going to the ICU is a full code. Discharge Plan Dx/Rx/DC Orders Clinical Impression: Respiratory failure, Hypotension Disposition Disposition: Acute Care Hospital [facility]
[2022-03-27 06:37] LABS: Absolute Neutrophil Count 17.1 X10^3/uL (2.0-7.7); Basophil# 0.02 X10^3/uL; Basophil% 0.1 % (0-1); Eosinophil# 0.01 X10^3/uL; Eosinophils% 0.1 % (0-5); Hematocrit 28.2 % (40-54); Hemoglobin 8.2 g/dL (13.0-16.5); Lymphocyte % 1.6 % (19-41); Mean Corp Hgb Conc 29.1 g/dL (32-36); Mean Corpuscular Hgb 29.6 pg (27.0-32.0); Mean Corpuscular Volume 101.8 fL (80-94); Mean Platelet Vol. 10.7 fl (6.2-12.0); Monocyte# 1.01 X10^3/uL; Monocyte% 5.4 % (0-10); NRBC Flagged by Analyzer 0 % (0-5); Neutrophil # 17.08 X10^3/uL (2.7-7.7); Neutrophil % 91.8 % (47-70); POSITIVE DIFFERENTIAL YES; POSITIVE MORPHOLOGY YES; Platelet Count 154 K/mm3 (150-450); Red Blood Count 2.77 M/mm3 (4.6-6.2); White Blood Count 18.6 K/mm3 (4.4-11.0)
[2022-03-27 06:49] LABS: International Normalized Ratio 2.2; Prothrombin Time (Protime)PT. 23.8 SECONDS (11.7-14.9)
[2022-03-27 07:05] LABS: AST(SGOT) 25 U/L (15-37); Alanine Aminotransfer ALT/SGPT 16 U/L (16-61); Albumin, Serum 2.1 g/dL (3.2-5.0); Alkaline Phosphatase 126 U/L (45-117); Anion Gap 7 (5-15); BUN 39 mg/dL (7-18); BUN/Creat Ratio 12.4 RATIO (10-20); Bilirubin, Direct 0.47 mg/dL (0.00-0.30); Calcium,Total 7.8 mg/dL (8.5-10.1); Chloride 97 mmol/L (98-107); Creatinine, Serum 3.15 mg/dL (0.70-1.30); EST Glomerular Filtration Rate 21 mL/min (>60); Est Glom Filt Rate - Afr Amer 25 mL/min (>60); Glucose 231 mg/dL (74-106); Potassium 3.9 mmol/L (3.5-5.1); Protein, Total 6.1 g/dL (6.4-8.2); Sodium Level 135 mmol/L (136-145); Troponin-I HS 231 pg/mL (3.0-78.0)
[2022-03-27 07:05] LABS: Lactic Acid 2.4 mmol/L (0.4-1.9)
[2022-03-27 07:27] LABS: Differential Indicated SCAN CRITERIA MET
[2022-03-27 07:41] LABS: Acanthocytes 1+; Anisocytosis 2+; Burr Cells 1+; Hypochromasia 1+; Macrocytosis 2+
--- NOTE | 2022-03-27 08:10 | ED.RN ---
utility technician called at 0730. They will call back with an ETA.
--- NOTE | 2022-03-27 09:31 | RAD_ITS ---
STUDY: X-RAY - LEFT FOOT CLINICAL: Male, 77 years old. Foot wounds. TECHNIQUE: 3 view(s) of the foot. COMPARISON: July 30, 2014. FINDINGS: Osteopenia. Resection of the phalanges of the fourth digit, unchanged. Inferior calcaneal spur unchanged. Stable diffuse osteoarthritic changes most marked at the MTP and IP joints with hammertoe deformities. Soft tissue swelling over the MTP joints. RAD/Foot min 3 Views IMPRESSION: Stable osteopenia, osteoarthritic changes, calcaneal spur and resection of the phalanges of the fourth digit. Soft tissue swelling over the MTP joints. No bone erosion to suggest osteomyelitis. Electronically Signed: Jin Irizarry, at 14:47 EST ,
--- NOTE | 2022-03-27 09:37 | RAD_ITS ---
STUDY: X-RAY - RIGHT FOOT CLINICAL: Male, 77 years old. Foot wounds. TECHNIQUE: 3 view(s) of the foot. COMPARISON: March 01, 2022. FINDINGS: Osteopenia. Stable resection of the phalanges of first toe. Diffuse osteoarthritic changes, unaltered. Stable calcaneal spurs. Diffuse soft tissue swelling . RAD/Foot min 3 Views IMPRESSION: Osteopenia with calcaneal spurs, osteoarthritic changes and postsurgical changes of resection of the phalanges of the first digit. Soft tissue swelling. No bone erosion. Electronically Signed: Jin Irizarry, at 14:45 EST ,
--- NOTE | 2022-03-27 10:11 | CON.PCM.ID_ITS ---
Assessment & Plan Assessment/Plan (1) Respiratory failure: PLAN: Will check urine antigens, sputum cx. Covid Ag neg. On empiric vanc/zo syn. Will consult wound care for feet, podiatry also consulted. Abx planned stop date was 04/17/22. Will follow, thank you, d/w Dr. Baig. 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 Admitted here from 03/01 to 03/24 with septic shock due to BLE infected ulcers and gangrene.? Recent wound cx with citro, proteus, morganella, serratia, GBS, enterococcus, and anaerobes.? Course complicated by rhinovirus, DAVIS on CKD requiring HD. Discharged on iv vanc dosed with HD and po cipro/flagyl to see if this helps.? Stop date 04/17/22 with weekly labs. Now admitted to icu. Reports normal HD session yesterday. Full ROS performed and neg except as noted above. [facility] Medical History Acute on chronic systolic (congestive) heart failure DAVIS (acute kidney injury) Alcohol abuse Atherosclerosis of coronary artery bypass graft without angina pectoris Atrial fibrillation Bilateral lower extremity edema CAD (coronary artery disease) Cardiac dysrhythmia Cardiomyopathy Chronic systolic congestive heart failure Chronic ulcer of toe of left foot with fat layer exposed Congestive heart failure Diarrhea MENDOZA (dyspnea on exertion) Elevated troponin Essential (primary) hypertension GERD (gastroesophageal reflux disease) Heavy alcohol use History of pleural effusion HLD (hyperlipidemia) Implantable cardioverter-defibrillator (ICD) at end of battery life 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 senior living current use of 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 Metabolic acidosis Non-rheumatic tricuspid valve insufficiency NSTEMI (non-ST elevated myocardial infarction) 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 RITESH (obstructive sleep apnea) Paroxysmal atrial fibrillation Paroxysmal atrial fibrillation with rapid ventricular response Paroxysmal atrial flutter Peripheral vascular disease Pleural effusion Productive cough Secondary pulmonary arterial hypertension Septic shock Shock circulatory Skin ulcer of left great toe with fat layer exposed Sleep apnea Type 2 diabetes mellitus Type 2 diabetes mellitus Ulcer of left lower extremity with fat layer exposed Ulcer of right foot with fat layer exposed Ulcer of right lower extremity with fat layer exposed Ventricular tachycardia Home Medications Handicap Placard #1 ea 08/28/19 [Rx Last Taken Unknown] atorvastatin 80 mg tablet 80 mg PO QHS #90 tabs 05/23/21 [Rx Last Taken 02/28/22] Novolin N Flexpen 5 units QHS diabetes 11/03/21 [History Last Taken 02/28/22] Novolin N Flexpen 12 units DAILY daily 11/03/21 [History Last Taken 02/28/22] warfarin 2 mg tablet (Jantoven) 2 mg PO DINNER #0 tabs 11/06/21 [Rx Last Taken 02/26/22] ascorbic acid (vitamin C) 500 mg tablet 500 mg PO DAILY 01/01/22 [History Last Taken 03/01/22] cholecalciferol (vitamin D3) 25 mcg (1,000 unit) capsule 25 mcg PO DAILY 01/01/22 [History Last Taken Unknown] ciprofloxacin HCl 500 mg tablet 500 mg PO QPM 28 days #28 tabs 03/14/22 [Rx Last Taken Unknown] metronidazole 500 mg tablet 500 mg PO TID 28 days #84 tabs 03/14/22 [Rx Last Taken Unknown] vancomycin 1,000 mg intravenous injection 1 g IV .see below 28 days #12 ea 03/14/22 [Rx Last Taken Unknown] acidophilus 25 million cell-pectin, citrus 100 mg tablet 1 tab PO BID #0 tabs 03/20/22 [Rx Last Taken Unknown] albuterol sulfate 2.5 mg/3 mL (0.083 %) solution for nebulization 2.5 mg (3 mL) inhalation Q2H PRN PRN Dyspnea, wheezing #0 mL 03/20/22 [Rx Last Taken Unknown] aluminum-mag hydroxide-simethicone 400 mg-400 mg-40 mg/5 mL oral susp (Mag-Al Plus Extra Strength) 30 ml PO Q6H PRN PRN Gastric Burning #0 mL 03/20/22 [Rx Last Taken Unknown] arginine 7 gram-glutam 7 gram-CaHMB 1.5 [id number]-[id number]-fr-min oral pwd pkt (Levy (with collagen)) 1 packet PO BIDCM #0 ea 03/20/22 [Rx Last Taken Unknown] clopidogrel 75 mg tablet 75 mg PO DAILY #30 tabs 03/20/22 [Rx Last Taken Unknown] insulin lispro 100 unit/mL subcutaneous pen (Humalog KwikPen (U-100) Insulin) Se e Protocol subcut ACHS #0 mL 03/20/22 [Rx Last Taken Unknown] kudtef-tkvrqpzo-fognbaq 12,000-38,000-60,000 unit capsule,delayed rel (Creon) 3 cap PO TIDCM #0 caps 03/20/22 [Rx Last Taken Unknown] loperamide 2 mg capsule 2 mg PO Q12 #0 caps 03/20/22 [Rx Last Taken Unknown] loperamide 2 mg capsule 2 mg PO Q2H PRN PRN Diarrhea #0 caps 03/20/22 [Rx Last Taken Unknown] melatonin 3 mg tablet 3 mg PO QHS PRN PRN Insomnia #0 tabs 03/20/22 [Rx Last Taken Unknown] menthol 0.44 %-zinc oxide 20.6 % topical ointment (Calmoseptine) 1 applic topical TID #0 grams 03/20/22 [Rx Last Taken Unknown] midodrine 5 mg tablet 10 mg PO TIDCM #0 tabs 03/20/22 [Rx Last Taken Unknown] sodium chloride 0.65 % nasal spray aerosol (Deep Sea Nasal) 2 spray NASAL BID PRN PRN NASAL DRYNESS #44 mL 03/20/22 [Rx Last Taken Unknown] acetaminophen 325 mg tablet (Tylenol) 650 mg PO Q4H PRN PRN Fever, pain 1-01/0803/27/22 [History Last Taken Unknown] pantoprazole 40 mg tablet,delayed release 40 mg PO DAILY 03/27/22 [History Last Taken Unknown] Allergy/AdvReac Type Severity Reaction Status Date / Time amiodarone Allergy Shortness Verified 03/14/22 15:49 of breath lisinopril AdvReac cough Verified 03/01/22 13:28 Family History Mother Bleeding in brain due to brain aneurysm Father History of aneurysm of peripheral artery Surgical History H/O coronary artery bypass surgery (1997) History of coronary artery stent placement (01/2016) History of hernia surgery History of implantable cardiac defibrillator (ICD) (02/11/20) History of thoracentesis Hx of CABG S/P PTCA (percutaneous transluminal coronary angioplasty) Social History household members: spouse Smoking Status: Never smoker alcohol intake: current alcohol intake frequency: a few times a week Alcohol type: beer substance use type: does not use caffeine: Yes Type: coffee Number of servings: 2 what type of physical activity do you participate in: none seatbelt use: never do you feel safe at home: Yes Physical Exam Const alert Constitutional Narrative: ill appearing General Appearance: cooperative HEENT normocephalic and head/scalp atraumatic Resp Effort and Inspection: uses accessory muscles Auscultation: diminished lung sounds Cardio Rate: tachycardic GI soft to palpation, non-tender and non-distended Extremity General Extremity: Negative for edema Skin Skin Narrative: feet with dry gangrene, wrapped Neuro CN's II-XII intact bilaterally Lab / Micro Data Attestation: I reviewed the patient's lab results. Result Diagrams: 03/27/22 06:18 03/27/22 06:11 Labs: Laboratory Results - last 24 hr 03/27/22 06:11: WBC Cancelled, Corrected WBC Cancelled, RBC Cancelled, Hgb Cancelled, Hct Cancelled, MCV Cancelled, MCH Cancelled, MCHC Cancelled, RDW Std Deviation Cancelled, RDW Coeff of Nguyen Cancelled, Plt Count Cancelled, MPV Cancelled, Immature Gran % (Auto) Cancelled, Neut % (Auto) Cancelled, Lymph % (Auto) Cancelled, [place] % (Auto) Cancelled, Eos % (Auto) Cancelled, Baso % (Auto) Cancelled, Absolute Neuts (auto) Cancelled, Absolute Lymphs (auto) Cancelled, Total Counted Cancelled, Neutrophils % (Manual) Cancelled, Band Neutrophils % Cancelled, Lymphocytes % (Manual) Cancelled, Monocytes % (Manual) Cancelled, Eosinophils % (Manual) Cancelled, Basophils % (Manual) Cancelled, Metamyelocytes % Cancelled, Myelocytes % Cancelled, Promyelocytes % Cancelled, Blast Cells % Cancelled, Plasma Cell % (Manual) Cancelled, Other Cells % Cancelled, Nucleated RBC % Cancelled, Nucleated RBCs/100 WBC Cancelled, Differential Comment Cancelled, Diff Path Review Cancelled, Hypersegmented Neuts Cancelled, Atypical Lymphocytes Cancelled, Reactive Lymphocytes Cancelled, Smudge Cells Cancelled, Toxic Granulation Cancelled, Toxic Vacuolation Cancelled, Dohle Bodies Cancelle d, Celestine Rods Cancelled, Platelet Estimate Cancelled, Plt Morphology Comment Cancelled, RBC Morphology Cancelled, Polychromasia Cancelled, Hypochromasia Cancelled, Poikilocytosis Cancelled, Basophilic Stippling Cancelled, Anisocytosis Cancelled, Microcytosis Cancelled, Macrocytosis Cancelled, Spheroc ytes Cancelled, Sickle Cells Cancelled, Target Cells Cancelled, Tear Drop Cells Cancelled, Ovalocytes Cancelled, Stomatocytes Cancelled, Ferguson-Elfrida Bodies Cancelled, Lynch Cells Cancelled, Bite Cells Cancelled, Crenated Cell Cancelled, Acanthocytes (Spur) Cancelled, Rouleaux Cancelled, Schistocytes Cancelled 03/27/22 06:11: Sodium 135 L, Potassium 3.9, Chloride 97 L, Carbon Dioxide 31.0, Anion Gap 7, BUN 39 H, Creatinine 3.15 H, Estim Creat Clear Calc 19.00, Est GFR (MDRD) Af Amer 25 L, Est GFR (MDRD) Non-Af 21 L, BUN/Creatinine Ratio 12.4, Glucose 231 H, Calcium 7.8 L, Total Bilirubin 0.80, Direct Bilirubin 0.47 H, AST 25, ALT 16, Alkaline Phosphatase 126 H, Troponin I High Sens 231 H*, Total Protein 6.1 L, Albumin 2.1 L, Globulin 4.0 03/27/22 06:11: B-Natriuretic Peptide Cancelled 03/27/22 06:18: PT 23.8 H, INR 2.2 03/27/22 06:18: Lactic Acid 2.4 H* 03/27/22 06:18: WBC 18.6 H, RBC 2.77 L, Hgb 8.2 L, Hct 28.2 L, MCV 101.8 H, MCH 29.6, MCHC 29.1 L, RDW Std Deviation 71.0 H, RDW Coeff of Nguyen 19.0 H, Plt Count 154, MPV 10.7, Immature Gran % (Auto) 1.000 H, Neut % (Auto) 91.8 H, Lymph % (Auto) 1.6 L, [place] % (Auto) 5.4, Eos % (Auto) 0.1, Baso % (Auto) 0.1, Absolute Neuts (auto) 17.1 H, Absolute Lymphs (auto) 0.30 L, Nucleated RBC % 0, Hypochromasia 1+, Anisocytosis 2+, Macrocytosis 2+, Thai Cells 1+, Acanthocytes (Spur) 1+ 03/27/22 06:18: B-Natriuretic Peptide 3336.4 H Micro: Microbiology 03/27/22 06:11 Nasal Secretion SARS-CoV-2 & FLU Antigen (Rapid) - Final Radiology Impression Chest X-Ray 03/27/22 05:45 IMPRESSION: Interval development of mild asymmetric patchy airspace disease in the right lower lung, suspicious for pneumonia. Electronically Signed: Mir Weems MD at 6:44 EST ,
--- NOTE | 2022-03-27 10:21 | EX.PCM.CONCC ---
Assessment & Plan Assessment/Plan (1) Respiratory failure: PLAN: Plan RECOMMENDATIONS: 1. Okay to transition from BiPAP to nasal cannula oxygen to maintain saturations at or above 90%. 2. Fluid removal per nephrology. Increase midodrine dosing per recommendations. 3. Continue empiric antimicrobials, pending infectious work-up. 4. Encourage incentive spirometer use and mobilize patient as tolerated. 5. Management of his peripheral vascular disease per vascular surgery. IMPRESSIONS: 1. Respiratory failure with hypoxemia I do suspect that the patient's acute respiratory decompensation is likely secondary to an acute CHF exacerbation as opposed to an occult infectious process. However, further volume optimization will be limited by the patient's baseline hemodynamic status. For now, nephrology plans to increase midodrine, with tentative plans for dialysis. Infectious diseases has been consulted, who has placed the patient on empiric antimicrobials, pending infectious work-up. From my perspective, the patient can be weaned from PAP therapy to nasal cannula supplemental oxygen, with a goal to maintain saturations at or above 90%. In addition to the aforementioned, I do suspect that underlying anxiety is likely contributing to his sensation of dyspnea as well. I suspect that with further volume optimization the patient's respiratory status will improve. 2. History of ischemic cardiomyopathy/paroxysmal atrial fibrillation/anemia/diabetes mellitus/GERD/RITESH Complicates care, management, recovery and prognosis. Continue home medications as indicated. TIME: 32 minutes of critical care time, independent of procedures, was spent addressing the patient's respiratory failure with hypoxemia, review of all data and collaboration with the care team. HPI Consult Data Date of Consult: 03/28/22 HPI Narrative Reason for Consultation: Respiratory failure HPI Narrative: The patient is a 77-year-old male, with a history as outlined below, who presented to the emergency department via EMS on March 27 from [facility] with reported shortness of breath. The patient was just admitted to the hospital with septic shock related to infected diabetic foot wounds along with acute kidney injury, coagulopathy and anemia. He was discharged on March 24. The patient did have a tunneled dialysis catheter placed during that hospitalization. His last dialysis session occurred yesterday. On presentation to the emergency department, the patient was noted to be hypotensive and tachypneic. He was initially documented to be saturating 98% on 3 L/min via nasal cannula. Initial laboratory evaluation revealed a white blood cell count of 18,000. The patient has chronic anemia with a hemoglobin of 8.2 g/dL. INR was therapeutic at 2.2. Chemistry profile was notable for a creatinine of 3.15. Lactate was noted to be 2.4. Troponin was elevated at 231 with a BNP of 3336. The patient did receive some supplemental IV fluid hydration was started on empiric antimicrobials. In addition, the patient was placed on BiPAP therapy and admitted to the medical intensive care unit for further management. [facility] Medical History Acute on chronic systolic (congestive) heart failure DAVIS (acute kidney injury) Alcohol abuse Atherosclerosis of coronary artery bypass graft without angina pectoris Atrial fibrillation Bilateral lower extremity edema CAD (coronary artery disease) Cardiac dysrhythmia Cardiomyopathy Chronic systolic congestive heart failure Chronic ulcer of toe of left foot with fat layer exposed Congestive heart failure Diarrhea MENDOZA (dyspnea on exertion) Elevated troponin Essential (primary) hypertension GERD (gastroesophageal reflux disease) Heavy alcohol use History of pleural effusion HLD (hyperlipidemia) Implantable cardioverter-defibrillator (ICD) at end of battery life Ischemic cardiomyopathy [facility] current use of amiodarone [employer] current use of 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 Metabolic acidosis Non-rheumatic tricuspid valve insufficiency NSTEMI (non-ST elevated myocardial infarction) 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 RITESH (obstructive sleep apnea) Paroxysmal atrial fibrillation Paroxysmal atrial fibrillation with rapid ventricular response Paroxysmal atrial flutter Peripheral vascular disease Pleural effusion Productive cough Secondary pulmonary arterial hypertension Septic shock Shock circulatory Skin ulcer of left great toe with fat layer exposed Sleep apnea Type 2 diabetes mellitus Type 2 diabetes mellitus Ulcer of left lower extremity with fat layer exposed Ulcer of right foot with fat layer exposed Ulcer of right lower extremity with fat layer exposed Ventricular tachycardia Home Medications Handicap Placard #1 ea 08/28/19 [Rx Last Taken Unknown] atorvastatin 80 mg tablet 80 mg PO QHS #90 tabs 05/23/21 [Rx Last Taken 02/28/22] Novolin N Flexpen 5 units QHS diabetes 11/03/21 [History Last Taken 02/28/22] Novolin N Flexpen 12 units DAILY daily 11/03/21 [History Last Taken 02/28/22] warfarin 2 mg tablet (Jantoven) 2 mg PO DINNER #0 tabs 11/06/21 [Rx Last Taken 02/26/22] ascorbic acid (vitamin C) 500 mg tablet 500 mg PO DAILY 01/01/22 [History Last Taken 03/01/22] cholecalciferol (vitamin D3) 25 mcg (1,000 unit) capsule 25 mcg PO DAILY 01/01/22 [History Last Taken Unknown] ciprofloxacin HCl 500 mg tablet 500 mg PO QPM 28 days #28 tabs 03/14/22 [Rx Last Taken Unknown] metronidazole 500 mg tablet 500 mg PO TID 28 days #84 tabs 03/14/22 [Rx Last Taken Unknown] vancomycin 1,000 mg intravenous injection 1 g IV .see below 28 days #12 ea 03/14/22 [Rx Last Taken Unknown] acidophilus 25 million cell-pectin, citrus 100 mg tablet 1 tab PO BID #0 tabs 03/20/22 [Rx Last Taken Unknown] albuterol sulfate 2.5 mg/3 mL (0.083 %) solution for nebulization 2.5 mg (3 mL) inhalation Q2H PRN PRN Dyspnea, wheezing #0 mL 03/20/22 [Rx Last Taken Unknown] aluminum-mag hydroxide-simethicone 400 mg-400 mg-40 mg/5 mL oral susp (Mag-Al Plus Extra Strength) 30 ml PO Q6H PRN PRN Gastric Burning #0 mL 03/20/22 [Rx Last Taken Unknown] arginine 7 gram-glutam 7 gram-CaHMB 1.5 mgta-nckcj-wv-min oral pwd pkt (Levy (with collagen)) 1 packet PO BIDCM #0 ea 03/20/22 [Rx Last Taken Unknown] clopidogrel 75 mg tablet 75 mg PO DAILY #30 tabs 03/20/22 [Rx Last Taken Unknown] insulin lispro 100 unit/mL subcutaneous pen (Humalog KwikPen (U-100) Insulin) See Protocol subcut ACHS #0 mL 03/20/22 [Rx Last Taken Unknown] qqarnt-wemxqgmf-gnjfoga 12,000-38,000-60,000 unit capsule,delayed rel (Creon) 3 cap PO TIDCM #0 caps 03/20/22 [Rx Last Taken Unknown] loperamide 2 mg capsule 2 mg PO Q12 #0 caps 03/20/22 [Rx Last Taken Unknown] loperamide 2 mg capsule 2 mg PO Q2H PRN PRN Diarrhea #0 caps 03/20/22 [Rx Last Taken Unknown] melatonin 3 mg tablet 3 mg PO QHS PRN PRN Insomnia #0 tabs 03/20/22 [Rx Last Taken Unknown] menthol 0.44 %-zinc oxide 20.6 % topical ointment (Calmoseptine) 1 applic topical TID #0 grams 03/20/22 [Rx Last Taken Unknown] midodrine 5 mg tablet 10 mg PO TIDCM #0 tabs 03/20/22 [Rx Last Taken Unknown] sodium chloride 0.65 % nasal spray aerosol (Deep Sea Nasal) 2 spray NASAL BID PRN PRN NASAL DRYNESS #44 mL 03/20/22 [Rx Last Taken Unknown] acetaminophen 325 mg tablet (Tylenol) 650 mg PO Q4H PRN PRN Fever, pain 1-01/0803/27/22 [History Last Taken Unknown] pantoprazole 40 mg tablet,delayed release 40 mg PO DAILY 03/27/22 [History Last Taken Unknown] Allergy/AdvReac Type Severity Reaction Status Date / Time amiodarone Allergy Shortness Verified 03/14/22 15:49 of breath lisinopril AdvReac cough Verified 03/01/22 13:28 Family History Mother Bleeding in brain due to brain aneurysm Father History of aneurysm of peripheral artery Surgical History H/O coronary artery bypass surgery (1997) History of coronary artery stent placement (01/2016) History of hernia surgery History of implantable cardiac defibrillator (ICD) (02/11/20) History of thoracentesis Hx of CABG S/P PTCA (percutaneous transluminal coronary angioplasty) Social History household members: spouse Smoking Status: Never smoker alcohol intake: current alcohol intake frequency: a few times a week Alcohol type: beer substance use type: does not use caffeine: Yes Type: coffee Number of servings: 2 what type of physical activity do you participate in: none seatbelt use: never do you feel safe at home: Yes ROS ROS Narrative 10 systems were reviewed with pertinent positives as noted in the HPI above. Physical Exam Const alert and no apparent distress General Appearance: cooperative and on BiPAP HEENT normocephalic and head/scalp atraumatic Eyes PERRL, EOMs intact bilaterally and conjunctivae normal Neck supple General: trachea midline Chest Chest Narrative: Tunneled dialysis catheter in place Resp Effort and Inspection: tachypneic Auscultation: rales Cardio S1 normal heart sound and S2 normal heart sound Rhythm: abnormal rhythm GI normal to inspection, nondistended, normoactive bowel sounds Extremity General Extremity: edema; Negative for clubbing Skin Skin Narrative: Wrapped lower extremities. Neuro CN's II-XII intact bilaterally and no focal motor deficits Psych Mood & Affect: anxious Lab / Micro Data Result Diagrams: 03/28/22 03:10 03/28/22 03:10 Labs: Laboratory Results - last 24 hr 03/27/22 06:11: WBC Cancelled, Corrected WBC Cancelled, RBC Cancelled, Hgb Cancelled, Hct Cancelled, MCV Cancelled, MCH Cancelled, MCHC Cancelled, RDW Std Deviation Cancelled, RDW Coeff of Nguyen Cancelled, Plt Count Cancelled, MPV Cancelled, Immature Gran % (Auto) Cancelled, Neut % (Auto) Cancelled, Lymph % (Auto) Cancelled, [place] % (Auto) Cancelled, Eos % (Auto) Cancelled, Baso % (Auto) Cancelled, Absolute Neuts (auto) Cancelled, Absolute Lymphs (auto) Cancelled, Total Counted Cancelled, Neutrophils % (Manual) Cancelled, Band Neutrophils % Cancelled, Lymphocytes % (Manual) Cancelled, Monocytes % (Manual) Cancelled, Eosinophils % (Manual) Cancelled, Basophils % (Manual) Cancelled, Metamyelocytes % Cancelled, Myelocytes % Cancelled, Promyelocytes % Cancelled, Blast Cells % Cancelled, Plasma Cell % (Manual) Cancelled, Other Cells % Cancelled, Nucleated RBC % Cancelled, Nucleated RBCs/100 WBC Cancelled, Differential Comment Cancelled, Diff Path Review Cancelled, Hypersegmented Neuts Cancelled, Atypical Lymphocytes Cancelled, Reactive Lymphocytes Cancelled, Smudge Cells Cancelled, Toxic Granulation Cancelled, Toxic Vacuolation Cancelled, Dohle Bodies Cancelled, Celestine Rods Cancelled, Platelet Estimate Cancelled, Plt Morphology Comment Cancelled, RBC Morphology Cancelled, Polychromasia Cancelled, Hypochromasia Cancelled, Poikilocytosis Cancelled, Basophilic Stippling Cancelled, Anisocytosis Cancelled, Microcytosis Cancelled, Macrocytosis Cancelled, Spherocytes Cancelled, Sickle Cells Cancelled, Target Cells Cancelled, Tear Drop Cells Cancelled, Ovalocytes Cancelled, Stomatocytes Cancelled, [place] Bodies Cancelled, [place] Cells Cancelled, Bite Cells Cancelled, Crenated Cell Cancelled, Acanthocytes (Spur) Cancelled, Rouleaux Cancelled, Schistocytes Cancelled 03/27/22 06:11: Sodium 135 L, Potassium 3.9, Chloride 97 L, Carbon Dioxide 31.0, Anion Gap 7, BUN 39 H, Creatinine 3.15 H, Estim Creat Clear Calc 19.00, Est GFR (MDRD) Af Amer 25 L, Est GFR (MDRD) Non-Af 21 L, BUN/Creatinine Ratio 12.4, Glucose 231 H, Calcium 7.8 L, Total Bilirubin 0.80, Direct Bilirubin 0.47 H, AST 25, ALT 16, Alkaline Phosphatase 126 H, Troponin I High Sens 231 H*, Total Protein 6.1 L, Albumin 2.1 L, Globulin 4.0 03/27/22 06:11: B-Natriuretic Peptide Cancelled 03/27/22 06:18: PT 23.8 H, INR 2.2 03/27/22 06:18: Lactic Acid 2.4 H* 03/27/22 06:18: WBC 18.6 H, RBC 2.77 L, Hgb 8.2 L, Hct 28.2 L, MCV 101.8 H, MCH 29.6, MCHC 29.1 L, RDW Std Deviation 71.0 H, RDW Coeff of Nguyen 19.0 H, Plt Count 154, MPV 10.7, Immature Gran % (Auto) 1.000 H, Neut % (Auto) 91.8 H, Lymph % (Auto) 1.6 L, [place] % (Auto) 5.4, Eos % (Auto) 0.1, Baso % (Auto) 0.1, Absolute Neuts (auto) 17.1 H, Absolute Lymphs (auto) 0.30 L, Nucleated RBC % 0, Hypochromasia 1+, Anisocytosis 2+, Macrocytosis 2+, Thai Cells 1+, Acanthocytes (Spur) 1+ 03/27/22 06:18: B-Natriuretic Peptide 3336.4 H Micro: Microbiology 03/27/22 06:11 Nasal Secretion SARS-CoV-2 & FLU Antigen (Rapid) - Final Radiology Impression Chest X-Ray 03/27/22 05:45 IMPRESSION: Interval development of mild asymmetric patchy airspace disease in the right lower lung, suspicious for pneumonia. Electronically Signed: Mir Weems MD at 6:44 EST , Charges/Coding Procedures Hospitalists Procedures: 11169 Critial Care 1st Hr
[2022-03-27 10:34] LABS: Reflex Lactate? Y
--- NOTE | 2022-03-27 10:43 | CON.PCM.RE_ITS ---
Documented by User: KATHRYN Luong 03/27/22 11:19 Assessment & Plan Assessment/Plan (1) Respiratory failure: (2) DAVIS (acute kidney injury): (3) Hypotension: (4) Pneumonia: (5) Ischemic cardiomyopathy: (6) Anemia in chronic illness: PLAN: Plan Patient was taken to the emergency room from [facility] for evaluation of shortness of breath. Admitted for acute respiratory failure, pneumonia and hypotension. We are consulted for dialysis needs. Patient is known to our group from last hospitalization. He developed DAVIS secondary to ischemic ATN from circulatory shock/sepsis, he was started on dialysis 03/02/2022, at that time his serum creatinine was 9.52 mg/dL. Baseline serum creatinine is around 1.5 mg/dL as of December 2021. Also during last hospitalization patient was essentially anuric. There has been no noted recovery in renal function during last hospitalization. Patient's outpatient dialysis schedule was arranged and is Saturday at [facility] [place]. Patient did dialyze yesterday at the kidney center but due to hypotension he was only able to tolerate approximately 600 mL fluid removal. EDW has not been established yet. Patient was noted to be hypotensive during last hospitalization and was on midodrine 10 mg 3 times daily. We will increase midodrine to 20 mg 3 times daily. We will plan for sequential treatment today and attempt UF as pt/bp tolerates. We will plan for dialysis tomorrow and attempt to remove fluid as patient/blood pressure tolerates. Patient has a history of ischemic cardiomyopathy with last known EF 35%. Patient has a history of anemia of chronic disease, we will monitor hemoglobin trends. No need for PRBC at this time. Pneumonia/leukocytosis; peripheral blood cultures are pending. We will also obtain blood cultures from tunneled HD catheter to rule out catheter related infection. ID consulted for antibiotics, he is currently on Zosyn. Further orders forthcoming as hospitalization evolves, thank you for allowing us to participate in the care of Mr. Brandt. HPI Consult Data Date of Consult: 03/27/22 HPI Narrative HPI Narrative: FRANCISCO BRANDT, is a 77 M who was taken to the emergency room for evaluation of shortness of breath, patient came from [facility]. Patient was admitted for acute respiratory failure, pneumonia and hypotension. We were consulted for dialysis needs. Patient is known to our service from last hospitalization was admitted to ICU for septic shock, diabetic foot ulcers and dialysis requiring acute kidney injury. Patient has past medical history significant for chronic systolic heart failure, ischemic cardiomyopathy status post AICD, hypertension, coronary artery disease status post CABG and PCI, EtOH abuse, PAF on Coumadin, RITESH. During last hospitalization patient was started on dialysis on 03/02/2022. No noted improvement in renal function therefore tunneled hemodialysis catheter was placed and arrangements were made for patient to dialyze at [facility] [place] Saturday schedule. Patient last dialyzed yesterday at the kidney center. Patient is alert and oriented, he denies any nausea or chest pain. Complains of feeling short of breath. Denies any cramping with forest lysis yesterday. [facility] Medical History Acute on chronic systolic (congestive) heart failure DAVIS (acute kidney injury) Alcohol abuse Atherosclerosis of coronary artery bypass graft without angina pectoris Atrial fibrillation Bilateral lower extremity edema CAD (coronary artery disease) Cardiac dysrhythmia Cardiomyopathy Chronic systolic congestive heart failure Chronic ulcer of toe of left foot with fat layer exposed Congestive heart failure Diarrhea MENDOZA (dyspnea on exertion) Elevated troponin Essential (primary) hypertension GERD (gastroesophageal reflux disease) Heavy alcohol use History of pleural effusion HLD (hyperlipidemia) Implantable cardioverter-defibrillator (ICD) at end of battery life Ischemic cardiomyopathy [facility] current use of amiodarone intermediate card tender current use of 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 Metabolic acidosis Non-rheumatic tricuspid valve insufficiency NSTEMI (non-ST elevated myocardial infarction) 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 RITESH (obstructive sleep apnea) Paroxysmal atrial fibrillation Paroxysmal atrial fibrillation with rapid ventricular response Paroxysmal atrial flutter Peripheral vascular disease Pleural effusion Productive cough Secondary pulmonary arterial hypertension Septic shock Shock circulatory Skin ulcer of left great toe with fat layer exposed Sleep apnea Type 2 diabetes mellitus Type 2 diabetes mellitus Ulcer of left lower extremity with fat layer exposed Ulcer of right foot with fat layer exposed Ulcer of right lower extremity with fat layer exposed Ventricular tachycardia Home Medications Handicap Carlyard #1 ea 08/28/19 [Rx Last Taken Unknown] atorvastatin 80 mg tablet 80 mg PO QHS #90 tabs 05/23/21 [Rx Last Taken 02/28/22] Novolin N Flexpen 5 units QHS diabetes 11/03/21 [History Last Taken 02/28/22] Novolin N Flexpen 12 units DAILY daily 11/03/21 [History Last Taken 02/28/22] warfarin 2 mg tablet (Jantoven) 2 mg PO DINNER #0 tabs 11/06/21 [Rx Last Taken 02/26/22] ascorbic acid (vitamin C) 500 mg tablet 500 mg PO DAILY 01/01/22 [History Last Taken 03/01/22] cholecalciferol (vitamin D3) 25 mcg (1,000 unit) capsule 25 mcg PO DAILY 01/01/22 [History Last Taken Unknown] ciprofloxacin HCl 500 mg tablet 500 mg PO QPM 28 days #28 tabs 03/14/22 [Rx Last Taken Unknown] metronidazole 500 mg tablet 500 mg PO TID 28 days #84 tabs 03/14/22 [Rx Last Taken Unknown] vancomycin 1,000 mg intravenous injection 1 g IV .see below 28 days #12 ea 03/14/22 [Rx Last Taken Unknown] acidophilus 25 million cell-pectin, citrus 100 mg tablet 1 tab PO BID #0 tabs 03/20/22 [Rx Last Taken Unknown] albuterol sulfate 2.5 mg/3 mL (0.083 %) solution for nebulization 2.5 mg (3 mL) inhalation Q2H PRN PRN Dyspnea, wheezing #0 mL 03/20/22 [Rx Last Taken Unknown] aluminum-mag hydroxide-simethicone 400 mg-400 mg-40 mg/5 mL oral susp (Mag-Al Plus Extra Strength) 30 ml PO Q6H PRN PRN Gastric Burning #0 mL 03/20/22 [Rx Last Taken Unknown] arginine 7 gram-glutam 7 gram-CaHMB 1.5 vqwt-sekcb-qt-min oral pwd pkt (Levy (with collagen)) 1 packet PO BIDCM #0 ea 03/20/22 [Rx Last Taken Unknown] clopidogrel 75 mg tablet 75 mg PO DAILY #30 tabs 03/20/22 [Rx Last Taken Unknown] insulin lispro 100 unit/mL subcutaneous pen (Humalog KwikPen (U-100) Insulin) See Protocol subcut ACHS #0 mL 03/20/22 [Rx Last Taken Unknown] lapzrq-ijqxyfst-qqxbijq 12,000-38,000-60,000 unit capsule,delayed rel (Creon) 3 cap PO TIDCM #0 caps 03/20/22 [Rx Last Taken Unknown] loperamide 2 mg capsule 2 mg PO Q12 #0 caps 03/20/22 [Rx Last Taken Unknown] loperamide 2 mg capsule 2 mg PO Q2H PRN PRN Diarrhea #0 caps 03/20/22 [Rx Last Taken Unknown] melatonin 3 mg tablet 3 mg PO QHS PRN PRN Insomnia #0 tabs 03/20/22 [Rx Last Pedro en Unknown] menthol 0.44 %-zinc oxide 20.6 % topical ointment (Calmoseptine) 1 applic topical TID #0 grams 03/20/22 [Rx Last Taken Unknown] midodrine 5 mg tablet 10 mg PO TIDCM #0 tabs 03/20/22 [Rx Last Taken Unknown] sodium chloride 0.65 % nasal spray aerosol (Deep Sea Nasal) 2 spray NASAL BID PRN PRN NASAL DRYNESS #44 mL 03/20/22 [Rx Last Taken Unknown] acetaminophen 325 mg tablet (Tylenol) 650 mg PO Q4H PRN PRN Fever, pain 1-01/0803/27/22 [History Last Taken Unknown] pantoprazole 40 mg tablet,delayed release 40 mg PO DAILY 03/27/22 [History Last Taken Unknown] Allergy/AdvReac Type Severity Reaction Status Date / Time amiodarone Allergy Shortness Verified 03/14/22 15:49 of breath lisinopril AdvReac cough Verified 03/01/22 13:28 Family History Mother Bleeding in brain due to brain aneurysm Father History of aneurysm of peripheral artery Surgical History H/O coronary artery bypass surgery (1997) History of coronary artery stent placement (01/2016) History of hernia surgery History of implantable cardiac defibrillator (ICD) (02/11/20) History of thoracentesis Hx of CABG S/P PTCA (percutaneous transluminal coronary angioplasty) Social History household members: spouse Smoking Status: Never smoker alcohol intake: current alcohol intake frequency: a few times a week Alcohol type: beer substance use type: does not use caffeine: Yes Type: coffee Number of servings: 2 what type of physical activity do you participate in: none seatbelt use: never do you feel safe at home: Yes ROS ROS Narrative As in HPI and past medical history Physical Exam Narrative Alert and oriented x3, no apparent distress Lung sounds with scattered rhonchi S1, S2, rhythm irregular, rate controlled Abdomen soft, nontender positive bowel sounds Bilateral lower feet with dressings clean, dry and intact. No significant pitting edema noted bilateral lower legs. Edema noted bilateral arms Tunneled HD catheter dressing clean, dry and intact Lab / Micro Data Result Diagrams: 03/27/22 06:18 03/27/22 06:11 Labs: Laboratory Results - last 24 hr 03/27/22 06:11: WBC Cancelled, Corrected WBC Cancelled, RBC Cancelled, Hgb Cancelled, Hct Cancelled, MCV Cancelled, MCH Cancelled, MCHC Cancelled, RDW Std Deviation Cancelled, RDW Coeff of Nguyen Cancelled, Plt Count Cancelled, MPV Cancelled, Immature Gran % (Auto) Cancelled, Neut % (Auto) Cancelled, Lymph % (Auto) Cancelled, [place] % (Auto) Cancelled, Eos % (Auto) Cancelled, Baso % (Auto) Cancelled, Absolute Neuts (auto) Cancelled, Absolute Lymphs (auto) Cancelled, Total Counted Cancelled, Neutrophils % (Manual) Cancelled, Band Neutrophils % Cancelled, Lymphocytes % (Manual) Cancelled, Monocytes % (Manual) Cancelled, Eosinophils % (Manual) Cancelled, Basophils % (Manual) Cancelled, Metamyelocytes % Cancelled, Myelocytes % Cancelled, Promyelocytes % Cancelled, Blast Cells % Cancelled, Plasma Cell % (Manual) Cancelled, Other Cells % Cancelled, Nucleated RBC % Cancelled, Nucleated RBCs/100 WBC Cancelled, Differential Comment Cancelled, Diff Path Review Cancelled, Hypersegmented Neuts Cancelled, Atypical Lymphocytes Cancelled, Reactive Lymphocytes Cancelled, Smudge Cells Cancelled, Toxic Granulation Cancelled, Toxic Vacuolation Cancelled, Dohle Bodies Cancelled, Celestine Rods Cancelled, Platelet Estimate Cancelled, Plt Morphology Comment Cancelled, RBC Morphology Cancelled, Polychromasia Cancelled, Hypochromasia Cancelled, Poikilocytosis Cancelled, Basophilic Stippling Cancelled, Anisocytosis Cancelled, Microcytosis Cancelled, Macrocytosis Cancelled, Spherocytes Cancelled, Sickle Cells Cancelled, Target Cells Cancelled, Tear Drop Cells Cancelled, Ovalocytes Cancelled, Stomatocytes Cancelled, Ferguson-Pajonal Bodies Cancelled, Thai Cells Cancelled, Bite Cells Cancelled, Crenated Cell Cancelled, Acanthocytes (Spur) Cancelled, Rouleaux Cancelled, Schistocytes Cancelled 03/27/22 06:11: Sodium 135 L, Potassium 3.9, Chloride 97 L, Carbon Dioxide 31.0, Anion Gap 7, BUN 39 H, Creatinine 3.15 H, Estim Creat Clear Calc 19.00, Est GFR (MDRD) Af Amer 25 L, Est GFR (MDRD) Non-Af 21 L, BUN/Creatinine Ratio 12.4, Glucose 231 H, Calcium 7.8 L, Total Bilirubin 0.80, Direct Bilirubin 0.47 H, AST 25, ALT 16, Alkaline Phosphatase 126 H, Troponin I High Sens 231 H*, Total Protein 6.1 L, Albumin 2.1 L, Globulin 4.0 03/27/22 06:11: B-Natriuretic Peptide Cancelled 03/27/22 06:18: PT 23.8 H, INR 2.2 03/27/22 06:18: Lactic Acid 2.4 H* 03/27/22 06:18: WBC 18.6 H, RBC 2.77 L, Hgb 8.2 L, Hct 28.2 L, MCV 101.8 H, MCH 29.6, MCHC 29.1 L, RDW Std Deviation 71.0 H, RDW Coeff of Nguyen 19.0 H, Plt Count 154, MPV 10.7, Immature Gran % (Auto) 1.000 H, Neut % (Auto) 91.8 H, Lymph % (Auto) 1.6 L, Bingham % (Auto) 5.4, Eos % (Auto) 0.1, Baso % (Auto) 0.1, Absolute Neuts (auto) 17.1 H, Absolute Lymphs (auto) 0.30 L, Nucleated RBC % 0, Hypochromasia 1+, Anisocytosis 2+, Macrocytosis 2+, [place] Cells 1+, Acanthocytes (Spur) 1+ 03/27/22 06:18: B-Natriuretic Peptide 3336.4 H Micro: Microbiology 03/27/22 06:11 Nasal Secretion SARS-CoV-2 & FLU Antigen (Rapid) - Final Radiology Impression Chest X-Ray 03/27/22 05:45 IMPRESSION: Interval development of mild asymmetric patchy airspace disease in the right lower lung, suspicious for pneumonia. Electronically Signed: Mir Weems MD at 6:44 EST , Documented by User: Dr. Geoff Sharp MD 03/27/22 17:33 Assessment & Plan Assessment/Plan (1) Respiratory failure: (2) DAVIS (acute kidney injury): (3) Hypotension: (4) Pneumonia: (5) Ischemic cardiomyopathy: (6) Anemia in chronic illness: PLAN: Plan Patient was [facility] from [facility] for evaluation of shortness of breath. Admitted for acute respiratory failure, pneumonia and hypotension. We are consulted for dialysis needs. Patient is known to our group from last hospitalization. He developed DAVIS secondary to ischemic ATN from circulatory shock/sepsis, he was started on dialysis 03/02/2022, at that time his serum creatinine was 9.52 mg/dL. Baseline serum creatinine is around 1.5 mg/dL as of December 2021. Also during last hospitalization patient was essentially anuric. There has been no noted recovery in renal function during last hospitalization. Patient's outpatient dialysis schedule was arranged and is Saturday at [facility] [place]. Patient did dialyze yesterday at the kidney center but due to hypotension he was only able to tolerate approximately 600 mL fluid removal. EDW has not been established yet. Patient was noted to be hypotensive during last hospitalization and was on midodrine 10 mg 3 times daily. We will increase midodrine to 20 mg 3 times daily. We will plan for sequential treatment today and attempt UF as pt/bp to lerates. We will plan for dialysis tomorrow and attempt to remove fluid as patient/blood pressure tolerates. Patient has a history of ischemic cardiomyopathy with last known EF 35%. Patient has a history of anemia of chronic disease, we will monitor hemoglobin trends. No need for PRBC at this ti ks. Pneumonia/leukocytosis; peripheral blood cultures are pending. We will also obtain blood cultures from tunneled HD catheter to rule out catheter related infection. ID consulted for antibiotics, he is currently on Zosyn. Further orders forthcoming as hospitalization evolves, thank you for allowing us to participate in the care of Mr. Brandt. Patient seen and examined, agree with note as outlined by [employer] above. Currently volume overloaded we will plan for extra session of ultrafiltration today. Repeat dialysis tomorrow Thank you please call [phone] with any concerns HPI Consult Data Date of Consult: 03/27/22 [facility] Medical History Acute on chronic systolic (congestive) heart failure DAVIS (acute kidney injury) Alcohol abuse Atherosclerosis of coronary artery bypass graft without angina pectoris Atrial fibrillation Bilateral lower extremity edema CAD (coronary artery disease) Cardiac dysrhythmia Cardiomyopathy Chronic systolic congestive heart failure Chronic ulcer of toe of left foot with fat layer exposed Congestive heart failure Diarrhea MENDOZA (dyspnea on exertion) Elevated troponin Essential (primary) hypertension GERD (gastroesophageal reflux disease) Heavy alcohol use History of pleural effusion HLD (hyperlipidemia) Implantable cardioverter-defibrillator (ICD) at end of battery life Ischemic cardiomyopathy [facility] current use of amiodarone intermediate card tender current use of 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 Metabolic acidosis Non-rheumatic tricuspid valve insufficiency NSTEMI (non-ST elevated myocardial infarction) 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 RITESH (obstructive sleep apnea) Paroxysmal atrial fibrillation Paroxysmal atrial fibrillation with rapid ventricular response Paroxysmal atrial flutter Peripheral vascular disease Pleural effusion Productive cough Secondary pulmonary arterial hypertension Septic shock Shock circulatory Skin ulcer of left great toe with fat layer exposed Sleep apnea Type 2 diabetes mellitus Type 2 diabetes mellitus Ulcer of left lower extremity with fat layer exposed Ulcer of right foot with fat layer exposed Ulcer of right lower extremity with fat layer exposed Ventricular tachycardia Home Medications Handicap Placard #1 ea 08/28/19 [Rx Last Taken Unknown] atorvastatin 80 mg tablet 80 mg PO QHS #90 tabs 05/23/21 [Rx Last Taken 02/28/22] Novolin N Flexpen 5 units QHS diabetes 11/03/21 [History Last Taken 02/28/22] Novolin N Flexpen 12 units DAILY daily 11/03/21 [History Last Taken 02/28/22] warfarin 2 mg tablet (Jantoven) 2 mg PO DINNER #0 tabs 11/06/21 [Rx Last Taken 02/26/22] ascorbic acid (vitamin C) 500 mg tablet 500 mg PO DAILY 01/01/22 [History Last Taken 03/01/22] cholecalciferol (vitamin D3) 25 mcg (1,000 unit) capsule 25 mcg PO DAILY 01/01/22 [History Last Taken Unknown] ciprofloxacin HCl 500 mg tablet 500 mg PO QPM 28 days #28 tabs 03/14/22 [Rx Last Taken Unknown] metronidazole 500 mg tablet 500 mg PO TID 28 days #84 tabs 03/14/22 [Rx Last Taken Unknown] vancomycin 1,000 mg intravenous injection 1 g IV .see below 28 days #12 ea 03/14/22 [Rx Last Taken Unknown] acidophilus 25 million cell-pectin, citrus 100 mg tablet 1 tab PO BID #0 tabs 03/20/22 [Rx Last Taken Unknown] albuterol sulfate 2.5 mg/3 mL (0.083 %) solution for nebulization 2.5 mg (3 mL) inhalation Q2H PRN PRN Dyspnea, wheezing #0 mL 03/20/22 [Rx Last Taken Unknown] aluminum-mag hydroxide-simethicone 400 mg-400 mg-40 mg/5 mL oral susp (Mag-Al Plus Extra Strength) 30 ml PO Q6H PRN PRN Gastric Burning #0 mL 03/20/22 [Rx Last Taken Unknown] arginine 7 gram-glutam 7 gram-CaHMB 1.5 tcah-ebpsp-pn-min oral pwd pkt (Levy (with collagen)) 1 packet PO BIDCM #0 ea 03/20/22 [Rx Last Taken Unknown] clopidogrel 75 mg tablet 75 mg PO DAILY #30 tabs 03/20/22 [Rx Last Taken Unknown] insulin lispro 100 unit/mL subcutaneous pen (Humalog KwikPen (U-100) Insulin) See Protocol subcut ACHS #0 mL 03/20/22 [Rx Last Taken Unknown] agyloa-icxjjpiz-zyexeut 12,000-38,000-60,000 unit capsule,delayed rel (Creon) 3 cap PO TIDCM #0 caps 03/20/22 [Rx Last Taken Unknown] loperamide 2 mg capsule 2 mg PO Q12 #0 caps 03/20/22 [Rx Last Taken Unknown] loperamide 2 mg capsule 2 mg PO Q2H PRN PRN Diarrhea #0 caps 03/20/22 [Rx Last Taken Unknown] melatonin 3 mg tablet 3 mg PO QHS PRN PRN Insomnia #0 tabs 03/20/22 [Rx Last Taken Unknown] menthol 0.44 %-zinc oxide 20.6 % topical ointment (Calmoseptine) 1 applic topical TID #0 grams 03/20/22 [Rx Last Taken Unknown] midodrine 5 mg tablet 10 mg PO TIDCM #0 tabs 03/20/22 [Rx Last Taken Unknown] sodium chloride 0.65 % nasal spray aerosol (Deep Sea Nasal) 2 spray NASAL BID PRN PRN NASAL DRYNESS #44 mL 03/20/22 [Rx Last Taken Unknown] acetaminophen 325 mg tablet (Tylenol) 650 mg PO Q4H PRN PRN Fever, pain 1-01/0803/27/22 [History Last Taken Unknown] pantoprazole 40 mg tablet,delayed release 40 mg PO DAILY 03/27/22 [History Last Taken Unknown] Allergy/AdvReac Type Severity Reaction Status Date / Time amiodarone Allergy Shortness Verified 03/14/22 15:49 of breath lisinopril AdvReac cough Verified 03/01/22 13:28 Family History Mother Bleeding in brain due to brain aneurysm Father History of aneurysm of peripheral artery Surgical History H/O coronary artery bypass surgery (1997) History of coronary artery stent placement (01/2016) History of hernia surgery History of implantable cardiac defibrillator (ICD) (02/11/20) History of thoracentesis Hx of CABG S/P PTCA (percutaneous transluminal coronary angioplasty) Social History household members: spouse Smoking Status: Never smoker alcohol intake: current alcohol intake frequency: a few times a week Alcohol type: beer substance use type: does not use caffeine: Yes Type: coffee Number of servings: 2 what type of physical activity do you participate in: none seatbelt use: never do you feel safe at home: Yes Lab / Micro Data Result Diagrams: 03/27/22 06:18 03/27/22 06:11
[2022-03-27] MEDS: Midodrine HCl 5 MG Tablet 20 MG PO ×2 (12:33→18:00)
--- NOTE | 2022-03-27 12:58 | CON.PCM_ITS ---
Assessment & Plan Assessment/Plan (1) Peripheral vascular disease, unspecified: PLAN: Exam performed. Patient has new onset acute ischemic changes to the right lower extremity with the foot being cold developing a large plantar midfoot bullous and nonblanchable erythema. Have ordered consult for vascular surgery. Left foot appears to have dry gangrene; however, recent revascularization attempt did not yield significantly improved blood flow to left lower extremity but due to persistent leukocytosis and hypotension and considering proceeding with partial first ray resection to remove any necrotic tissue from the site and decrease systemic stress. I do feel that the patient has an acute ischemic event on the right lower extremity which may account for some of the leukocytosis. We will await vascular input. Dry sterile dressings nonadherent applied to bilateral lower extremity. Patient should offload heels bilaterally to prevent pressure ulceration. Patient should remain nonweightbearing. Closely managed the patient. (2) Gangrene of left foot: (3) Gangrene of right foot: (4) Non-pressure chronic ulcer of other part of left foot with fat layer exposed: (5) Non-pressure chronic ulcer of other part of right foot with fat layer exposed: HPI Consult Data Date of Consult: 03/27/22 HPI Narrative HPI Narrative: FRANCISCO DUBOSE, is a 77 M who presents with severe PAD and was re-admitted due to hypotension with new onset right lower extremity rest pain. Patient denies constitutionals, but notes pain to right calf present for several days. Patient only been outside for transfer to dialysis from [facility] facility. Patient had some new infiltrates on lungs upon admission. [facility] Medical History Acute on chronic systolic (congestive) heart failure DAVIS (acute kidney injury) Alcohol abuse Atherosclerosis of coronary artery bypass graft without angina pectoris Atrial fibrillation Bilateral lower extremity edema CAD (coronary artery disease) Cardiac dysrhythmia Cardiomyopathy Chronic systolic congestive heart failure Chronic ulcer of toe of left foot with fat layer exposed Congestive heart failure Diarrhea MENDOZA (dyspnea on exertion) Elevated troponin Essential (primary) hypertension GERD (gastroesophageal reflux disease) Heavy alcohol use History of pleural effusion HLD (hyperlipidemia) Implantable cardioverter-defibrillator (ICD) at end of battery life 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 Metabolic acidosis Non-rheumatic tricuspid valve insufficiency NSTEMI (non-ST elevated myocardial infarction) 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 RITESH (obstructive sleep apnea) Paroxysmal atrial fibrillation Paroxysmal atrial fibrillation with rapid ventricular response Paroxysmal atrial flutter Peripheral vascular disease Pleural effusion Productive cough Secondary pulmonary arterial hypertension Septic shock Shock circulatory Skin ulcer of left great toe with fat layer exposed Sleep apnea Type 2 diabetes mellitus Type 2 diabetes mellitus Ulcer of left lower extremity with fat layer exposed Ulcer of right foot with fat layer exposed Ulcer of right lower extremity with fat layer exposed Ventricular tachycardia Home Medications Handicap Placard #1 ea 08/28/19 [Rx Last Taken Unknown] atorvastatin 80 mg tablet 80 mg PO QHS #90 tabs 05/23/21 [Rx Last Taken 02/28/22] Novolin N Flexpen 5 units QHS diabetes 11/03/21 [History Last Taken 02/28/22] Novolin N Flexpen 12 units DAILY daily 11/03/21 [History Last Taken 02/28/22] warfarin 2 mg tablet (Jantoven) 2 mg PO DINNER #0 tabs 11/06/21 [Rx Last Taken 02/26/22] ascorbic acid (vitamin C) 500 mg tablet 500 mg PO DAILY 01/01/22 [History Last Taken 03/01/22] cholecalciferol (vitamin D3) 25 mcg (1,000 unit) capsule 25 mcg PO DAILY 01/01/22 [History Last Taken Unknown] ciprofloxacin HCl 500 mg tablet 500 mg PO QPM 28 days #28 tabs 03/14/22 [Rx Last Taken Unknown] metronidazole 500 mg tablet 500 mg PO TID 28 days #84 tabs 03/14/22 [Rx Last Taken Unknown] vancomycin 1,000 mg intravenous injection 1 g IV .see below 28 days #12 ea 03/14/22 [Rx Last Taken Unknown] acidophilus 25 million cell-pectin, citrus 100 mg tablet 1 tab PO BID #0 tabs 03/20/22 [Rx Last Taken Unknown] albuterol sulfate 2.5 mg/3 mL (0.083 %) solution for nebulization 2.5 mg (3 mL) inhalation Q2H PRN PRN Dyspnea, wheezing #0 mL 03/20/22 [Rx Last Taken Unknown] aluminum-mag hydroxide-simethicone 400 mg-400 mg-40 mg/5 mL oral susp (Mag-Al Plus Extra Strength) 30 ml PO Q6H PRN PRN Gastric Burning #0 mL 03/20/22 [Rx Last Taken Unknown] arginine 7 gram-glutam 7 gram-CaHMB 1.5 [id number]-bmyqk-im-min oral pwd pkt (Levy (with collagen)) 1 packet PO BIDCM #0 ea 03/20/22 [Rx Last Taken Unknown] clopidogrel 75 mg tablet 75 mg PO DAILY #30 tabs 03/20/22 [Rx Last Taken Unknown] insulin lispro 100 unit/mL subcutaneous pen (Humalog KwikPen (U-100) Insulin) See Protocol subcut ACHS #0 mL 03/20/22 [Rx Last Taken Unknown] dswdvz-pvhphnbn-ryaqxzg 12,000-38,000-60,000 unit capsule,delayed rel (Creon) 3 cap PO TIDCM #0 caps 03/20/22 [Rx Last Taken Unknown] loperamide 2 mg capsule 2 mg PO Q12 #0 caps 03/20/22 [Rx Last Taken Unknown] loperamide 2 mg capsule 2 mg PO Q2H PRN PRN Diarrhea #0 caps 03/20/22 [Rx Last Taken Unknown] melatonin 3 mg tablet 3 mg PO QHS PRN PRN Insomnia #0 tabs 03/20/22 [Rx Last Taken Unknown] menthol 0.44 %-zinc oxide 20.6 % topical ointment (Calmoseptine) 1 applic topical TID #0 grams 03/20/22 [Rx Last Taken Unknown] midodrine 5 mg tablet 10 mg PO TIDCM #0 tabs 03/20/22 [Rx Last Taken Unknown] sodium chloride 0.65 % nasal spray aerosol (Deep Sea Nasal) 2 spray NASAL BID PRN PRN NASAL DRYNESS #44 mL 03/20/22 [Rx Last Taken Unknown] acetaminophen 325 mg tablet (Tylenol) 650 mg PO Q4H PRN PRN Fever, pain 1-01/0803/27/22 [History Last Taken Unknown] pantoprazole 40 mg tablet,delayed release 40 mg PO DAILY 03/27/22 [History Last Taken Unknown] Allergy/AdvReac Type Severity Reaction Status Date / Time amiodarone Allergy Shortness Verified 03/14/22 15:49 of breath lisinopril AdvReac cough Verified 03/01/22 13:28 Family History Mother Bleeding in brain due to brain aneurysm Father History of aneurysm of peripheral artery Surgical History H/O coronary artery bypass surgery (1997) History of coronary artery stent placement (01/2016) History of hernia surgery History of implantable cardiac defibrillator (ICD) (02/11/20) History of thoracentesis Hx of CABG S/P PTCA (percutaneous transluminal coronary angioplasty) Social History household members: spouse Smoking Status: Never smoker alcohol intake: current alcohol intake frequency: a few times a week Alcohol type: beer substance use type: does not use caffeine: Yes Type: coffee Number of servings: 2 what type of physical activity do you participate in: none seatbelt use: never do you feel safe at home: Yes Physical Exam Narrative Patient AOx3. Right foot cold to touch with non-blanchable erythema and new onset blistering to plantar midfoot. Unchanged gangrenous 2nd digit, necrotic 5th met base wound and plantar heel wounds. Stable left foot gangrene to left hallux, plantar 5th met head and heel wound. Lab / Micro Data Result Diagrams: 03/27/22 06:18 03/27/22 06:11 Labs: Laboratory Results - last 24 hr 03/27/22 06:11: WBC Cancelled, Corrected WBC Cancelled, RBC Cancelled, Hgb Ca ncelled, Hct Cancelled, MCV Cancelled, MCH Cancelled, MCHC Cancelled, RDW Std Deviation Cancelled, RDW Coeff of Nguyen Cancelled, Plt Count Cancelled, MPV Cancelled, Immature Gran % (Auto) Cancelled, Neut % (Auto) Cancelled, Lymph % (Auto) Cancelled, Sab[place] % (Auto) Cancelled, Eos % (Auto) Cancelled, Baso % (Auto) Cancelled, Absolute Neuts (auto) Cancelled, Absolute Lymphs (auto) Cancelled, Total Counted Cancelled, Neutrophils % (Manual) Cancelled, Band Neutrophils % Cancelled, Lymphocytes % (Manual) Cancelled, Monocytes % (Manual) Cancelled, Eosinophils % (Manual) Cancelled, Basophils % (Manual) Cancelled, Metamyelocytes % Cancelled, Myelocytes % Cancelled, Promyelocytes % Cancelled, Blast Cells % Cancelled, Plasma Cell % (Manual) Cancelled, Other Cells % Cancelled, Nucleated RBC % Cancelled, Nucleated RBCs/100 WBC Cancelled, Differential Comment Cancelled, Diff Path Review Cancelled, Hypersegmented Neuts Cancelled, Atypical Lymphocytes Cancelled, Reactive Lymphocytes Cancelled, Smudge Cells Cancelled, Toxic Granulation Cancelled, Toxic Vacuolation Cancelled, Dohle Bodies Cancelled, Celestine Rods Cancelled, Platelet Estimate Cancelled, Plt Morphology Comment Cancelled, RBC Morphology Cancelled, Polychromasia Cancelled, Hypochromasia Cancelled, Poikilocytosis Cancelled, Basophilic Stippling Cancelled, Anisocytosis Cancelled, Microcytosis Cancelled, Macrocytosis Cancelled, Spherocytes Cancelled, Sickle Cells Cancelled, Target Cells Cancelled, Tear Drop Cells Cancelled, Ovalocytes Cancelled, Stomatocytes Cancelled, [place] Bodies Cancelled, [place] Cells Cancelled, Bite Cells Cancelled, Crenated Cell Cancelled, Acanthocytes (Spur) Cancelled, Rouleaux Cancelled, Schistocytes Cancelled 03/27/22 06:11: Sodium 135 L, Potassium 3.9, Chloride 97 L, Carbon Dioxide 31.0, Anion Gap 7, BUN 39 H, Creatinine 3.15 H, Estim Creat Clear Calc 19.00, Est GFR (MDRD) Af Amer 25 L, Est GFR (MDRD) Non-Af 21 L, BUN/Creatinine Ratio 12.4, Glucose 231 H, Calcium 7.8 L, Total Bilirubin 0.80, Direct Bilirubin 0.47 H, AST 25, ALT 16, Alkaline Phosphatase 126 H, Troponin I High Sens 231 H*, Total Protein 6.1 L, Albumin 2.1 L, Globulin 4.0 03/27/22 06:11: B-Natriuretic Peptide Cancelled 03/27/22 06:18: PT 23.8 H, INR 2.2 03/27/22 06:18: Lactic Acid 2.4 H* 03/27/22 06:18: WBC 18.6 H, RBC 2.77 L, Hgb 8.2 L, Hct 28.2 L, MCV 101.8 H, MCH 29.6, MCHC 29.1 L, RDW Std Deviation 71.0 H, RDW Coeff of Nguyen 19.0 H, Plt Count 154, MPV 10.7, Immature Gran % (Auto) 1.000 H, Neut % (Auto) 91.8 H, Lymph % (Au to) 1.6 L, Sabine % (Auto) 5.4, Eos % (Auto) 0.1, Baso % (Auto) 0.1, Absolute N euts (auto) 17.1 H, Absolute Lymphs (auto) 0.30 L, Nucleated RBC % 0, Hypochromasia 1+, Anisocytosis 2+, Macrocytosis 2+, [place] Cells 1+, Acanthocytes (Spur) 1+ 03/27/22 06:18: B-Natriuretic Peptide 3336.4 H Micro: Microbiology 03/27/22 06:11 Nasal Secretion SARS-CoV-2 & FLU Antigen (Rapid) - Final Radiology Impression Chest X-Ray 03/27/22 05:45 IMPRESSION: Interval development of mild asymmetric patchy airspace disease in the right lower lung, suspicious for pneumonia. Electronically Signed: Mir Weems MD at 6:44 EST ,
[2022-03-27] MEDS: Ipratropium/Albuterol Sulfate 3 ML AMPUL.NEB INHALATION ×2 (13:10→19:47)
--- NOTE | 2022-03-27 14:29 | WOUNDNOTE ---
wound photo:left foot
--- NOTE | 2022-03-27 14:30 | WOUNDNOTE ---
wound photo:left lower leg
--- NOTE | 2022-03-27 14:31 | WOUNDNOTE ---
wound photo: left medial lower leg
--- NOTE | 2022-03-27 14:32 | WOUNDNOTE ---
wound photo: left lateral foot/heel
--- NOTE | 2022-03-27 14:33 | WOUNDNOTE ---
wound photo: right posteromedial lower leg
--- NOTE | 2022-03-27 14:33 | WOUNDNOTE ---
wound photo: right lower leg/foot
--- NOTE | 2022-03-27 14:34 | WOUNDNOTE ---
wound photo: right foot
--- NOTE | 2022-03-27 14:35 | WOUNDNOTE ---
wound photo: right plantar foot
--- NOTE | 2022-03-27 14:36 | WOUNDNOTE ---
wound photo: right lateral foot/heel
--- NOTE | 2022-03-27 14:37 | WOUNDNOTE ---
wound photo: left upper arm
--- NOTE | 2022-03-27 15:03 | PCM.OP.BLANK ---
Operative Report Date of Procedure: 03/27/22 Central line placement procedure note Indication: IV access/hemodynamic instability/vasoactive medications Procedure: A time-out was completed to verify correct patient, indication, medication allergies, procedure, coagulation studies, informed consent signed, and equipment needed. The patient was placed in the supine position for a central line placement to the rt IJ vein. The patients rt neck was prepped using chlorhexidine and a full body sterile drape was applied. 1% lidocaine was used to anesthetize the surrounding skin. A 7fr 20 cm blue u triple lumen catheter introduced into the internal jugular vein using the modified Seldinger technique with the assistance of ultrasound. The catheter was threaded smoothly over the guidewire, the guidewire was removed easily, nonpulsatile blood returned. All ports were aspirated of air and flushed with sterile saline. The catheter was sutured in place and covered with an occlusive dressing impregnated with chlorhexidine. Post-procedure: The patient tolerated the procedure well. Vital signs remained stable. EBL 3 cc. No complications. Chest X Ray ordered to confirm tip placement and the absence of pneumothorax. Procedures Hospitalists Procedures: 13228 Insert Non-tunnel CV Cath
--- NOTE | 2022-03-27 15:05 | RAD_ITS ---
INDICATION: Central Line placement EXAMINATION/TECHNIQUE: X-RAY - XR Chest 1 View COMPARISON: 8 hours earlier RAD/CXR for Line Placement IMPRESSION: Right IJ central catheter terminates over the mid right atrium. No finding of apical pneumothorax. Similar bilateral mid to lower lung infiltrates and small pleural effusions. Left IJ central catheter and single lead cardiac device remain. Electronically Signed: Miller Cutler MD at 16:34 EST ,
--- NOTE | 2022-03-27 15:20 | CHAPLAIN ---
Type of Pastoral Visit _x__ Initial Visit ___ Follow-up Visit ___ On-call Visit ___ General Patient Visit ___ Spiritual Assessment ___ Family Conference ___ Bereavement ___ Rapid Response ___ Code Blue ___ Other (describe below) Pastoral Care Referral From _x__ Patient ___ Family ___ Nurse ___ Physician ___ Human Performance Consultant ___ Specialist Field Engineer ___ Other (describe below) Sacrament/Intervention _x__ Active listening ___ Anointing ___ Jew ___ Bereavement ___ Communion ___ Elke exploration ___ ___ Life review _x__ Prayer ___ Reconciliation ___ Sacrament of Sick _x__ Supportive presence ___ Wedding ___ Other (describe below) Pastoral Comments patient and spouse and JEMIMA are in the room; pt acknowledges that he was at [facility] briefly and then came back to hospital; pt states several times that the interventional radiologist came to visit several time sand that he was baptized now in adulthood; pt speaks with some enthusiasm but his body is very weak; pt welcomes a prayer; spouse and family member are offered support too
[2022-03-27 17:38] LABS: Lactic Acid 1.7 mmol/L (0.4-1.9)
[2022-03-27 17:40] LABS: Vancomycin, Random Level 9.4 ug/mL (0.0-15.0)
--- NOTE | 2022-03-27 17:40 | CON.PCM.SX_ITS ---
Assessment & Plan Assessment/Plan (1) Peripheral vascular disease, unspecified: PLAN: -images from wound care reviewed, right foot cyanotic -notable temp discrepancy, right foot cool to touch -wounds stable, no overt infection -plan for angio , will focus on RLE -likely will re-image LLE either or at secondary procedure next week -hold coumadin HPI Consult Data Date of Consult: 03/27/22 HPI Narrative HPI Narrative: FRANCISCO DUBOSE, is a 77 M who presents with known severe bilateral PAD, bilateral foot wounds. Recently admitted with sepsis/DAVIS requiring HD, briefly discharged to SNF. Had LLE popliteal intervention during alst admission. Now returns with SOB, increased O2, possible volume overload. During wound care dressing change right foot noted to be cooler than previously. Left foot wounds stable. [facility] Medical History Acute on chronic systolic (congestive) heart failure DAVIS (acute kidney injury) Alcohol abuse Atherosclerosis of coronary artery bypass graft without angina pectoris Atrial fibrillation Bilateral lower extremity edema CAD (coronary artery disease) Cardiac dysrhythmia Cardiomyopathy Chronic systolic congestive heart failure Chronic ulcer of toe of left foot with fat layer exposed Congestive heart failure Diarrhea MENDOZA (dyspnea on exertion) Elevated troponin Essential (primary) hypertension GERD (gastroesophageal reflux disease) Heavy alcohol use History of pleural effusion HLD (hyperlipidemia) Implantable cardioverter-defibrillator (ICD) at end of battery life Ischemic cardiomyopathy 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 current use of amiodarone 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 current use of 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 Metabolic acidosis Non-rheumatic tricuspid valve insufficiency NSTEMI (non-ST elevated myocardial infarction) 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 RITESH (obstructive sleep apnea) Paroxysmal atrial fibrillation Paroxysmal atrial fibrillation with rapid ventricular response Paroxysmal atrial flutter Peripheral vascular disease Pleural effusion Productive cough Secondary pulmonary arterial hypertension Septic shock Shock circulatory Skin ulcer of left great toe with fat layer exposed Sleep apnea Type 2 diabetes mellitus Type 2 diabetes mellitus Ulcer of left lower extremity with fat layer exposed Ulcer of right foot with fat layer exposed Ulcer of right lower extremity with fat layer exposed Ventricular tachycardia Home Medications Handicap Placard #1 ea 08/28/19 [Rx Last Taken Unknown] atorvastatin 80 mg tablet 80 mg PO QHS #90 tabs 05/23/21 [Rx Last Taken 02/28/22] Novolin N Flexpen 5 units QHS diabetes 11/03/21 [History Last Taken 02/28/22] Novolin N Flexpen 12 units DAILY daily 11/03/21 [History Last Taken 02/28/22] warfarin 2 mg tablet (Jantoven) 2 mg PO DINNER #0 tabs 11/06/21 [Rx Last Taken 02/26/22] ascorbic acid (vitamin C) 500 mg tablet 500 mg PO DAILY 01/01/22 [History Last Taken 03/01/22] cholecalciferol (vitamin D3) 25 mcg (1,000 unit) capsule 25 mcg PO DAILY 01/01/22 [History Last Taken Unknown] ciprofloxacin HCl 500 mg tablet 500 mg PO QPM 28 days #28 tabs 03/14/22 [Rx Last Taken Unknown] metronidazole 500 mg tablet 500 mg PO TID 28 days #84 tabs 03/14/22 [Rx Last Taken Unknown] vancomycin 1,000 mg intravenous injection 1 g IV .see below 28 days #12 ea 03/14/22 [Rx Last Taken Unknown] acidophilus 25 million cell-pectin, citrus 100 mg tablet 1 tab PO BID #0 tabs 03/20/22 [Rx Last Taken Unknown] albuterol sulfate 2.5 mg/3 mL (0.083 %) solution for nebulization 2.5 mg (3 mL) inhalation Q2H PRN PRN Dyspnea, wheezing #0 mL 03/20/22 [Rx Last Taken Unknown] aluminum-mag hydroxide-simethicone 400 mg-400 mg-40 mg/5 mL oral susp (Mag-Al Plus Extra Strength) 30 ml PO Q6H PRN PRN Gastric Burning #0 mL 03/20/22 [Rx Last Taken Unknown] arginine 7 gram-glutam 7 gram-CaHMB 1.5 [id number] oral pwd pkt (Levy (with collagen)) 1 packet PO BIDCM #0 ea 03/20/22 [Rx Last Taken Unknown] clopidogrel 75 mg tablet 75 mg PO DAILY #30 tabs 03/20/22 [Rx Last Taken Unknown] insulin lispro 100 unit/mL subcutaneous pen (Humalog KwikPen (U-100) Insulin) See Protocol subcut ACHS #0 mL 03/20/22 [Rx Last Taken Unknown] ieftrn-kzfolarf-jbyzxtf 12,000-38,000-60,000 unit capsule,delayed rel (Creon) 3 cap PO TIDCM #0 caps 03/20/22 [Rx Last Taken Unknown] loperamide 2 mg capsule 2 mg PO Q12 #0 caps 03/20/22 [Rx Last Taken Unknown] loperamide 2 mg capsule 2 mg PO Q2H PRN PRN Diarrhea #0 caps 03/20/22 [Rx Last Taken Unknown] melatonin 3 mg tablet 3 mg PO QHS PRN PRN Insomnia #0 tabs 03/20/22 [Rx Last Taken Unknown] menthol 0.44 %-zinc oxide 20.6 % topical ointment (Calmoseptine) 1 applic topical TID #0 grams 03/20/22 [Rx Last Taken Unknown] midodrine 5 mg tablet 10 mg PO TIDCM #0 tabs 03/20/22 [Rx Last Taken Unknown] sodium chloride 0.65 % nasal spray aerosol (Deep Sea Nasal) 2 spray NASAL BID PRN PRN NASAL DRYNESS #44 mL 03/20/22 [Rx Last Taken Unknown] acetaminophen 325 mg tablet (Tylenol) 650 mg PO Q4H PRN PRN Fever, pain 1-01/0803/27/22 [History Last Taken Unknown] pantoprazole 40 mg tablet,delayed release 40 mg PO DAILY 03/27/22 [History Last Taken Unknown] Allergy/AdvReac Type Severity Reaction Status Date / Time amiodarone Allergy Shortness Verified 03/14/22 15:49 of breath lisinopril AdvReac cough Verified 03/01/22 13:28 Family History Mother Bleeding in brain due to brain aneurysm Father History of aneurysm of peripheral artery Surgical History H/O coronary artery bypass surgery (1997) History of coronary artery stent placement (01/2016) History of hernia surgery History of implantable cardiac defibrillator (ICD) (02/11/20) History of thoracentesis Hx of CABG S/P PTCA (percutaneous transluminal coronary angioplasty) Social History household members: spouse Smoking Status: Never smoker alcohol intake: current alcohol intake frequency: a few times a week Alcohol type: beer substance use type: does not use caffeine: Yes Type: coffee Number of servings: 2 what type of physical activity do you participate in: none seatbelt use: never do you feel safe at home: Yes ROS Constitutional Constitutional: Reports lethargy and weakness; Denies chills or fever(s) Eyes Eyes: Denies blind spots, change in vision or loss of vision ENT HEENT: Denies bleeding gums, hoarseness or sore throat Cardiovascular Cardiovascular: Reports bluish discoloration of hand/feet, cold extremities, dyspnea on exertion, leg ulcers and numbness in extremities; Denies abdominal pain, chest pain with activity, claudication, erythema on extremities, irregular heart rhythm, leg edema or weakness in extremities Respiratory/Chest Respiratory/Chest: Reports shortness of breath at rest; Denies cough or excessive phlegm production Gastrointestinal Gastrointestinal: Denies anorexia, change in stool character, constipation, diarrhea, melena or rectal bleeding Genitourinary Genitourinary: Denies dysuria or hematuria Integumentary Integumentary: Reports non-healing lesions, wounds and other Details: ; Denies erythema Neurologic Neurologic: Denies abnormal speech, focal weakness, headache(s), loss of vision, numbness, paresthesias or sensory deficit Hematologic/Lymphatic Hematologic/Lymphatic: Denies easy bleeding, easy bruising or lymphadenopathy Physical Exam Const alert, oriented x3 and no apparent distress General Appearance: cooperative; Negative for combative or lethargic Orientation / Consciousness: awake Exam Limitations: no limitations HEENT Head and Scalp: normocephalic and atraumatic Eyes EOMs intact bilaterally General Eye: normal appearance of both eyes Neck full ROM, no lymphadenopathy and thyroid normal General: trachea midline; Negative for lymphadenopathy or tenderness Thyroid: thyroid normal Lymph Lymphatic: Negative for no lymphadenopathy noted Resp normal respiratory effort and no use of accessory muscles Effort and Inspection: Negative for labored, stridor or audible wheezes Cardio regular rhythm Rate: tachycardic Peripheral Pulses: brachial pulses present and radial pulses present; Negative for popliteal pulses present, posterior tibial pulses present or dorsalis pedis pulses present Back/Spine Cervical Spine: cervical ROM normal Extremity full ROM, normal capillary refill and no clubbing, cyanosis or edema Skin Skin Narrative: bilateral foot wounds, heels, digits, dorsum Neuro oriented x3, CN's II-XII intact bilaterally, no focal motor deficits and no sensory deficits noted Psych thought process normal, cooperative, affect normal, speech normal and activity/motor behavior normal Lab / Micro Data Result Diagrams: 03/27/22 06:18 03/27/22 06:11 Labs: Laboratory Results - last 24 hr 03/27/22 06:11: WBC Cancelled, Corrected WBC Cancelled, RBC Cancelled, Hgb Cancelled, Hct Cancelled, MCV Cancelled, MCH Cancelled, MCHC Cancelled, RDW Std Deviation Cancelled, RDW Coeff of Nguyen Cancelled, Plt Count Cancelled, MPV Cancelled, Immature Gran % (Auto) Cancelled, Neut % (Auto) Cancelled, Lymph % (Auto) Cancelled, Phelps % (Auto) Cancelled, Eos % (Auto) Cancelled, Baso % (Auto) Cancelled, Absolute Neuts (auto) Cancelled, Absolute Lymphs (auto) Cancelled, Total Counted Cancelled, Neutrophils % (Manual) Cancelled, Band Neutrophils % Cancelled, Lymphocytes % (Manual) Cancelled, Monocytes % (Manual) Cancelled, Eosinophils % (Manual) Cancelled, Basophils % (Manual) Cancelled, Metamyelocytes % Cancelled, Myelocytes % Cancelled, Promyelocytes % Cancelled, Blast Cells % Cancelled, Plasma Cell % (Manual) Cancelled, Other Cells % Cancelled, Nucleated RBC % Cancelled, Nucleated RBCs/100 WBC Cancelled, Differential Comment Cancelled, Diff Path Review Cancelled, Hypersegmented Neuts Cancelled, Atypical Lymphocytes Cancelled, Reactive Lymphocytes Cancelled, Smudge Cells Cancelled, Toxic Granulation Cancelled, Toxic Vacuolation Cancelled, Dohle Bodies Cancelled, Celestine Rods Cancelled, Platelet Estimate Cancelled, Plt Morphology Comment Cancelled, RBC Morphology Cancelled, Polychromasia Cancelled, Hypochromasia Cancelled, Poikilocytosis Cancelled, Basophilic Stippling Cancelled, Anisocytosis Cancelled, Microcytosis Cancelled, Macrocytosis C ancelled, Spherocytes Cancelled, Sickle Cells Cancelled, Target Cells Cancelled, Tear Drop Cells Cancelled, Ovalocytes Cancelled, Stomatocytes Cancelled, [place] Bodies Cancelled, Olmitz Cells Cancelled, Bite Cells Cancelled, Crenated Cell Cancelled, Acanthocytes (Spur) Cancelled, Rouleaux Cancelled, Schistocytes Cancelled 03/27/22 06:11: Sodium 135 L, Potassium 3.9, Chloride 97 L, Carbon Dioxide 31.0, Anion Gap 7, BUN 39 H, Creatinine 3.15 H, Estim Creat Clear Calc 19.00, Est GFR (MDRD) Af Amer 25 L, Est GFR (MDRD) Non-Af 21 L, BUN/Creatinine Ratio 12.4, Glucose 231 H, Calcium 7.8 L, Total Bilirubin 0.80, Direct Bilirubin 0.47 H, AST 25, ALT 16, Alkaline Phosphatase 126 H, Troponin I High Sens 231 H*, Total Protein 6.1 L, Albumin 2.1 L, Globulin 4.0 03/27/22 06:11: B-Natriuretic Peptide Cancelled 03/27/22 06:18: PT 23.8 H, INR 2.2 03/27/22 06:18: Lactic Acid 2.4 H* 03/27/22 06:18: WBC 18.6 H, RBC 2.77 L, Hgb 8.2 L, Hct 28.2 L, MCV 101.8 H, MCH 29.6, MCHC 29.1 L, RDW Std Deviation 71.0 H, RDW Coeff of Nguyen 19.0 H, Plt Count 154, MPV 10.7, Immature Gran % (Auto) 1.000 H, Neut % (Auto) 91.8 H, Lymph % (Auto) 1.6 L, Phelps % (Auto) 5.4, Eos % (Auto) 0.1, Baso % (Auto) 0.1, Absolute Neuts (auto) 17.1 H, Absolute Lymphs (auto) 0.30 L, Nucleated RBC % 0, Hypochromasia 1+, Anisocytosis 2+, Macrocytosis 2+, Olmitz Cells 1+, Acanthocytes (Spur) 1+ 03/27/22 06:18: B-Natriuretic Peptide 3336.4 H 03/27/22 16:50: Lactic Acid 1.7 Micro: Microbiology 03/27/22 06:11 Nasal Secretion SARS-CoV-2 & FLU Antigen (Rapid) - Final Radiology Impression Chest X-Ray 03/27/22 05:45 IMPRESSION: Interval development of mild asymmetric patchy airspace disease in the right lower lung, suspicious for pneumonia. Electronically Signed: Mir Weems MD at 6:44 EST , Foot X-Ray 03/27/22 09:31 IMPRESSION: Stable osteopenia, osteoarthritic changes, calcaneal spur and resection of the phalanges of the fourth digit. Soft tissue swelling over the MTP joints. No bone erosion to suggest osteomyelitis. Electronically Signed: Jin Irizarry, at 14:47 EST , Foot X-Ray 03/27/22 09:37 IMPRESSION: Osteopenia with calcaneal spurs, osteoarthritic changes and postsurgical changes of resection of the phalanges of the first digit. Soft tissue swelling. No bone erosion. Electronically Signed: Jin Irizarry, at 14:45 EST , Chest X-Ray 03/27/22 15:05 IMPRESSION: Right IJ central catheter terminates over the mid right atrium. No finding of apical pneumothorax. Similar bilateral mid to lower lung infiltrates and small pleural effusions. Left IJ central catheter and single lead cardiac device remain. Electronically Signed: Miller Cutler MD at 16:34 EST , Charges/Coding Visit Charges Inpatient E&M: 89508 Init Hosp L2
--- NOTE | 2022-03-27 18:51 | PCM.HP.STD ---
HPI - General General Date of Admission: 03/27/22 Date of Service: 03/27/22 Chief Complaint: Shortness of breath HPI Narrative FRANCISCO DUBOSE, is a 77 M who presents to the emergency room at [facility] today after being transported from a local extended care facility at which she was receiving rehab services. Patient recently been in the hospital here for an extended length of time for septic shock secondary to infected lower extremity ulcerations from peripheral vascular disease. Patient was noted to complain of shortness of breath at the long-term today and his blood pressure was in the 80s and he was transported in for evaluation. Evaluation in the emergency room included a chest x-ray which showed bilateral infiltrates-this was not altogether dissimilar to his previous chest x-ray that been done several days prior, patient initially was stable on nasal cannula oxygen but had to be transition to BiPAP in the ER. Labs obtained in the ER included a CBC which showed an elevated white blood cell count at 18.6, hemoglobin was 8.2, INR was 2.2, creatinine was 3.15, BUN was 39, troponin was elevated at 231, beta natruretic peptide was elevated at 3336. Patient was admitted to ICU for bilateral pneumonia and hypoxic respiratory failure, I talked with critical care who will be seeing the patient in the ICU, I also talked with nephrology and infectious diseases as well as podiatry who at all seen the patient before during his last hospitalization. [facility] Medical History Acute on chronic systolic (congestive) heart failure DAVIS (acute kidney injury) Alcohol abuse Atherosclerosis of coronary artery bypass graft without angina pectoris Atrial fibrillation Bilateral lower extremity edema CAD (coronary artery disease) Cardiac dysrhythmia Cardiomyopathy Chronic systolic congestive heart failure Chronic ulcer of toe of left foot with fat layer exposed Congestive heart failure Diarrhea MENDOZA (dyspnea on exertion) Elevated troponin Essential (primary) hypertension GERD (gastroesophageal reflux disease) Heavy alcohol use History of pleural effusion HLD (hyperlipidemia) Implantable cardioverter-defibrillator (ICD) at end of battery life Ischemic cardiomyopathy 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 current use of 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 Metabolic acidosis Non-rheumatic tricuspid valve insufficiency NSTEMI (non-ST elevated myocardial infarction) 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 RITESH (obstructive sleep apnea) Paroxysmal atrial fibrillation Paroxysmal atrial fibrillation with rapid ventricular response Paroxysmal atrial flutter Peripheral vascular disease Pleural effusion Productive cough Secondary pulmonary arterial hypertension Septic shock Shock circulatory Skin ulcer of left great toe with fat layer exposed Sleep apnea Type 2 diabetes mellitus Type 2 diabetes mellitus Ulcer of left lower extremity with fat layer exposed Ulcer of right foot with fat layer exposed Ulcer of right lower extremity with fat layer exposed Ventricular tachycardia Home Medications Handicap Placard #1 ea 08/28/19 [Rx Last Taken Unknown] atorvastatin 80 mg tablet 80 mg PO QHS #90 tabs 05/23/21 [Rx Last Taken 02/28/22] Novolin N Flexpen 5 units QHS diabetes 11/03/21 [History Last Taken 02/28/22] Novolin N Flexpen 12 units DAILY daily 11/03/21 [History Last Taken 02/28/22] warfarin 2 mg tablet (Jantoven) 2 mg PO DINNER #0 tabs 11/06/21 [Rx Last Taken 02/26/22] ascorbic acid (vitamin C) 500 mg tablet 500 mg PO DAILY 01/01/22 [History Last Taken 03/01/22] cholecalciferol (vitamin D3) 25 mcg (1,000 unit) capsule 25 mcg PO DAILY 01/01/22 [History Last Taken Unknown] ciprofloxacin HCl 500 mg tablet 500 mg PO QPM 28 days #28 tabs 03/14/22 [Rx Last Taken Unknown] metronidazole 500 mg tablet 500 mg PO TID 28 days #84 tabs 03/14/22 [Rx Last Taken Unknown] vancomycin 1,000 mg intravenous injection 1 g IV .see below 28 days #12 ea 03/14/22 [Rx Last Taken Unknown] acidophilus 25 million cell-pectin, citrus 100 mg tablet 1 tab PO BID #0 tabs 03/20/22 [Rx Last Taken Unknown] albuterol sulfate 2.5 mg/3 mL (0.083 %) solution for nebulization 2.5 mg (3 mL) inhalation Q2H PRN PRN Dyspnea, wheezing #0 mL 03/20/22 [Rx Last Taken Unknown] aluminum-mag hydroxide-simethicone 400 mg-400 mg-40 mg/5 mL oral susp (Mag-Al Plus Extra Strength) 30 ml PO Q6H PRN PRN Gastric Burning #0 mL 03/20/22 [Rx Last Taken Unknown] arginine 7 gram-glutam 7 gram-CaHMB 1.5 uzhq-gykrg-te-min oral pwd pkt (Levy (with collagen)) 1 packet PO BIDCM #0 ea 03/20/22 [Rx Last Taken Unknown] clopidogrel 75 mg tablet 75 mg PO DAILY #30 tabs 03/20/22 [Rx Last Taken Unknown] insulin lispro 100 unit/mL subcutaneous pen (Humalog KwikPen (U-100) Insulin) See Protocol subcut ACHS #0 mL 03/20/22 [Rx Last Taken Unknown] tecypn-rdyxvjgg-disiasq 12,000-38,000-60,000 unit capsule,delayed rel (Creon) 3 cap PO TIDCM #0 caps 03/20/22 [Rx Last Taken Unknown] loperamide 2 mg capsule 2 mg PO Q12 #0 caps 03/20/22 [Rx Last Taken Unknown] loperamide 2 mg capsule 2 mg PO Q2H PRN PRN Diarrhea #0 caps 03/20/22 [Rx Last Taken Unknown] melatonin 3 mg tablet 3 mg PO QHS PRN PRN Insomnia #0 tabs 03/20/22 [Rx Last Taken Unknown] menthol 0.44 %-zinc oxide 20.6 % topical ointment (Calmoseptine) 1 applic topical TID #0 grams 03/20/22 [Rx Last Taken Unknown] midodrine 5 mg tablet 10 mg PO TIDCM #0 tabs 03/20/22 [Rx Last Taken Unknown] sodium chloride 0.65 % nasal spray aerosol (Deep Sea Nasal) 2 spray NASAL BID PRN PRN NASAL DRYNESS #44 mL 03/20/22 [Rx Last Taken Unknown] acetaminophen 325 mg tablet (Tylenol) 650 mg PO Q4H PRN PRN Fever, pain 1-01/0803/27/22 [History Last Taken Unknown] pantoprazole 40 mg tablet,delayed release 40 mg PO DAILY 03/27/22 [History Last Taken Unknown] Allergy/AdvReac Type Severity Reaction Status Date / Time amiodarone Allergy Shortness Verified 03/14/22 15:49 of breath lisinopril AdvReac cough Verified 03/01/22 13:28 Family History Mother Bleeding in brain due to brain aneurysm Father History of aneurysm of peripheral artery Surgical History H/O coronary artery bypass surgery (1997) History of coronary artery stent placement (01/2016) History of hernia surgery History of implantable cardiac defibrillator (ICD) (02/11/20) History of thoracentesis Hx of CABG S/P PTCA (percutaneous transluminal coronary angioplasty) Social History household members: spouse Smoking Status: Never smoker alcohol intake: current alcohol intake frequency: a few times a week Alcohol type: beer substance use type: does not use caffeine: Yes Type: coffee Number of servings: 2 what type of physical activity do you participate in: none seatbelt use: never do you feel safe at home: Yes ROS ROS Narrative Review of systems at this time was unobtainable due to the patient being on BiPAP, information was obtained from the patient's spouse who was in the room at the time my examination Vital Signs Vital Signs Vital Signs: 03/27/22 05:40 03/27/22 05:49 03/27/22 06:09 Temperature 96.2 F L Temperature Source Temporal Pulse Rate 75 Respiratory Rate 22 H Respiratory Effort Respiratory Depth Deep Respiratory Pattern Tachypnea Blood Pressure 60/44 L 82/54 L Blood Pressure [BP] Blood Pressure Mean 49 63 Blood Pressure Mean [BP] Blood Pressure Source Blood Pressure Source [BP] Blood Pressure Position Blood Pressure Position [BP] Blood Pressure Location Blood Pressure Location [BP] Pulse Ox 98 Oxygen Delivery Method Nasal Cannula Nasal Cannula Oxygen Flow Rate (L/min) 3 2 Fraction of Inspired Oxygen (FIO2) 03/27/22 06:49 03/27/22 06:35 03/27/22 07:15 Temperature Temperature Source Pulse Rate 104 H 98 Respiratory Rate 36 H 27 H Respiratory Effort Respiratory Depth Respiratory Pattern Tachypnea Blood Pressure 72/46 L 93/64 Blood Pressure [BP] Blood Pressure Mean 54 73 Blood Pressure Mean [BP] Blood Pressure Source Blood Pressure Source [BP] Blood Pressure Position Blood Pressure Position [BP] Blood Pressure Location Blood Pressure Location [BP] Pulse Ox 100 94 Oxygen Delivery Method Bi-pap Oxygen Flow Rate (L/min) Fraction of Inspired Oxygen (FIO2) 40 03/27/22 07:31 03/27/22 08:08 03/27/22 08:00 Temperature 98.1 F Temperature Source Temporal Pulse Rate 106 H 111 H 143 H Respiratory Rate 28 H Respiratory Effort Respiratory Depth Respiratory Pattern Blood Pressure 83/65 L 87/69 L 87/69 L Blood Pressure [BP] Blood Pressure Mean 71 75 75 Blood Pressure Mean [BP] Blood Pressure Source Blood Pressure Source [BP] Blood Pressure Position Blood Pressure Position [BP] Blood Pressure Location Blood Pressure Location [BP] Pulse Ox 94 Oxygen Delivery Method Bi-pap Oxygen Flow Rate (L/min) Fraction of Inspired Oxygen (FIO2) 03/27/22 08:15 03/27/22 08:30 03/27/22 08:47 Temperature Temperature Source Pulse Rate 125 H 83 98 Respiratory Rate Respiratory Effort Respiratory Depth Respiratory Pattern Blood Pressure 88/58 L 79/63 L 85/74 L Blood Pressure [BP] Blood Pressure Mean 68 68 77 Blood Pressure Mean [BP] Blood Pressure Source Blood Pressure Source [BP] Blood Pressure Position Blood Pressure Position [BP] Blood Pressure Location Blood Pressure Location [BP] Pulse Ox Oxygen Delivery Method Oxygen Flow Rate (L/min) Fraction of Inspired Oxygen (FIO2) 03/27/22 09:51 03/27/22 09:51 03/27/22 10:00 Temperature Temperature Source Pulse Rate 98 Respiratory Rate 22 H Respiratory Effort Short of Breath Respiratory Depth Normal Respiratory Pattern Tachypnea Normal Blood Pressure Blood Pressure [BP] Blood Pressure Mean Blood Pressure Mean [BP] Blood Pressure Source Blood Pressure Source [BP] Blood Pressure Position Blood Pressure Position [BP] Blood Pressure Location Blood Pressure Location [BP] Pulse Ox 94 94 40 Oxygen Delivery Method CPAP Bi-pap Oxygen Flow Rate (L/min) Fraction of Inspired Oxygen (FIO2) 40 40 03/27/22 09:30 03/27/22 09:45 03/27/22 10:00 Temperature 97.7 F L Temperature Source Temporal Pulse Rate 113 H 103 H 103 H Respiratory Rate 22 H 23 H 26 H Respiratory Effort Respiratory Depth Respiratory Pattern Blood Pressure 85/59 L 89/69 L 76/58 L Blood Pressure [BP] Blood Pressure Mean 67 75 64 Blood Pressure Mean [BP] Blood Pressure Source Monitor Monitor Monitor Blood Pressure Source [BP] Blood Pressure Position Semi-Fowlers Semi-Fowlers Semi-Fowlers Blood Pressure Position [BP] Blood Pressure Location Right Arm Right Arm Right Arm Blood Pressure Location [BP] Pulse Ox 100 100 98 Oxygen Delivery Method Bi-pap Bi-pap Bi-pap Oxygen Flow Rate (L/min) Fraction of Inspired Oxygen (FIO2) 40 40 40 03/27/22 10:15 03/27/22 10:00 03/27/22 12:00 Temperature Temperature Source Pulse Rate 103 H 105 H 100 Respiratory Rate 20 H Respiratory Effort Respiratory Depth Respiratory Pattern Blood Pressure 86/54 L Blood Pressure [BP] Blood Pressure Mean 64 Blood Pressure Mean [BP] Blood Pressure Source Monitor Blood Pressure Source [BP] Blood Pressure Position Semi-Fowlers Blood Pressure Position [BP] Blood Pressure Location Right Arm Blood Pressure Location [BP] Pulse Ox 99 Oxygen Delivery Method Bi-pap Oxygen Flow Rate (L/min) Fraction of Inspired Oxygen (FIO2) 40 03/27/22 11:00 03/27/22 12:00 03/27/22 13:00 Temperature 97.9 F Temperature Source Temporal Pulse Rate 101 H 100 105 H Respiratory Rate 14 20 H 22 H Respiratory Effort Respiratory Depth Respiratory Pattern Blood Pressure Blood Pressure [BP] 96/57 L 83/41 L 96/45 L Blood Pressure Mean Blood Pressure Mean [BP] 70 55 62 Blood Pressure Source Blood Pressure Source [BP] Monitor Monitor Monitor Blood Pressure Position Blood Pressure Position [BP] Semi-Fowlers Semi-Fowlers Semi-Fowlers Blood Pressure Location Blood Pressure Location [BP] Right Arm Right Arm Right Arm Pulse Ox 100 100 100 Oxygen Delivery Method Nasal Cannula Nasal Cannula Nasal Cannula Oxygen Flow Rate (L/min) 3 3 3 Fraction of Inspired Oxygen (FIO2) 03/27/22 13:11 03/27/22 12:00 03/27/22 14:00 Temperature Temperature Source Pulse Rate 111 H 112 H Respiratory Rate 16 25 H Respiratory Effort Short of Breath Respiratory Depth Normal Respiratory Pattern Normal Blood Pressure Blood Pressure [BP] 115/66 Blood Pressure Mean Blood Pressure Mean [BP] 82 Blood Pressure Source Blood Pressure Source [BP] Monitor Blood Pressure Position Blood Pressure Position [BP] Semi-Fowlers Blood Pressure Location Blood Pressure Location [BP] Right Arm Pulse Ox 100 Oxygen Delivery Method Nasal Cannula Nasal Cannula Oxygen Flow Rate (L/min) 3 3 Fraction of Inspired Oxygen (FIO2) 03/27/22 15:00 03/27/22 16:00 Temperature Temperature Source Pulse Rate 102 H Respiratory Rate 13 Respiratory Effort Short of Breath Respiratory Depth Normal Respiratory Pattern Normal Blood Pressure Blood Pressure [BP] 112/80 Blood Pressure Mean Blood Pressure Mean [BP] 90 Blood Pressure Source Blood Pressure Source [BP] Monitor Blood Pressure Position Blood Pressure Position [BP] Semi-Fowlers Blood Pressure Location Blood Pressure Location [BP] Right Arm Pulse Ox 95 Oxygen Delivery Method Nasal Cannula Nasal Cannula Oxygen Flow Rate (L/min) 3 3 Fraction of Inspired Oxygen (FIO2) Weight Weight: 73.9 kg Body Mass Index (BMI) 27.1 Physical Exam Const alert and oriented x3 Constitutional Narrative: Patient is currently on BiPAP, he does not appear to be dyspneic on BiPAP at this time, patient appears to be older than his stated age HEENT normocephalic, head/scalp atraumatic and hearing grossly normal bilaterally Eyes PERRL, EOMs intact bilaterally and conjunctivae normal Neck supple and no JVD Resp no retractions Resp Narrative: There are decreased breath sounds bilaterally over the lower half of the lung suarez, there are scattered inspiratory rales noted at the lung bases. Respirations were rapid and somewhat shallow. Cardio regular rate, regular rhythm, S1 normal heart sound, S2 normal heart sound and no rub GI normal to inspection, nondistended, normoactive bowel sounds, soft to palpation and non-tender Extremity Extremity Narrative: Both lower legs were wrapped with surgical dressing, these were not removed for examination of the patient's leg wounds Neuro oriented x3, CN's II-XII intact bilaterally and moves all extremities Sensorium / Orientation: awake, alert, oriented to person and oriented to place Speech: speech normal Psych affect normal Results Lab / Micro Data Result Diagrams: 03/27/22 06:18 03/27/22 06:11 Labs: Laboratory Results - last 24 hr 03/27/22 06:11: WBC Cancelled, Corrected WBC Cancelled, RBC Cancelled, Hgb Cancelled, Hct Cancelled, MCV Cancelled, MCH Cancelled, MCHC Cancelled, RDW Std Deviation Cancelled, RDW Coeff of Nguyen Cancelled, Plt Count Cancelled, MPV Cancelled, Immature Gran % (Auto) Cancelled, Neut % (Auto) Cancelled, Lymph % (Auto) Cancelled, Barton % (Auto) Cancelled, Eos % (Auto) Cancelled, Baso % (Auto) Cancelled, Absolute Neuts (auto) Cancelled, Absolute Lymphs (auto) Cancelled, Total Counted Cancelled, Neutrophils % (Manual) Cancelled, Band Neutrophils % Cancelled, Lymphocytes % (Manual) Cancelled, Monocytes % (Manual) Cancelled, Eosinophils % (Manual) Cancelled, Basophils % (Manual) Cancelled, Metamyelocytes % Cancelled, Myelocytes % Cancelled, Promyelocytes % Cancelled, Blast Cells % Cancelled, Plasma Cell % (Manual) Cancelled, Other Cells % Cancelled, Nucleated RBC % Cancelled, Nucleated RBCs/100 WBC Cancelled, Differential Comment Cancelled, Diff Path Review Cancelled, Hypersegmented Neuts Cancelled, Atypical Lymphocytes Cancelled, Reactive Lymphocytes Cancelled, Smudge Cells Cancelled, Toxic Granulation Cancelled, Toxic Vacuolation Cancelled, Dohle Bodies Cancelled, Celestine Rods Cancelled, Platelet Estimate Cancelled, Plt Morphology Comment Cancelled, RBC Morphology Cancelled, Polychromasia Cancelled, Hypochromasia Cancelled, Poikilocytosis Cancelled, Basophilic Stippling Cancelled, Anisocytosis Cancelled, Microcytosis Cancelled, Macrocytosis Cancelled, Spherocytes Cancelled, Sickle Cells Cancelled, Target Cells Cancelled, Tear Drop Cells Cancelled, Ovalocytes Cancelled, Stomatocytes Cancelled, Ferguson-Dolores Bodies Cancelled, Mcbrides Cells Cancelled, Bite Cells Cancelled, Crenated Cell Cancelled, Acanthocytes (Spur) Cancelled, Rouleaux Cancelled, Schistocytes Cancelled 03/27/22 06:11: Sodium 135 L, Potassium 3.9, Chloride 97 L, Carbon Dioxide 31.0, Anion Gap 7, BUN 39 H, Creatinine 3.15 H, Estim Creat Clear Calc 19.00, Est GFR (MDRD) Af Amer 25 L, Est GFR (MDRD) Non-Af 21 L, BUN/Creatinine Ratio 12.4, Glucose 231 H, Calcium 7.8 L, Total Bilirubin 0.80, Direct Bilirubin 0.47 H, AST 25, ALT 16, Alkaline Phosphatase 126 H, Troponin I High Sens 231 H*, Total Protein 6.1 L, Albumin 2.1 L, Globulin 4.0 03/27/22 06:11: B-Natriuretic Peptide Cancelled 03/27/22 06:18: PT 23.8 H, INR 2.2 03/27/22 06:18: Lactic Acid 2.4 H* 03/27/22 06:18: WBC 18.6 H, RBC 2.77 L, Hgb 8.2 L, Hct 28.2 L, MCV 101.8 H, MCH 29.6, MCHC 29.1 L, RDW Std Deviation 71.0 H, RDW Coeff of Nguyen 19.0 H, Plt Count 154, MPV 10.7, Immature Gran % (Auto) 1.000 H, Neut % (Auto) 91.8 H, Lymph % (Auto) 1.6 L, Barton % (Auto) 5.4, Eos % (Auto) 0.1, Baso % (Auto) 0.1, Absolute Neuts (auto) 17.1 H, Absolute Lymphs (auto) 0.30 L, Nucleated RBC % 0, Hypochromasia 1+, Anisocytosis 2+, Macrocytosis 2+, Thai Cells 1+, Acanthocytes (Spur) 1+ 03/27/22 06:18: B-Natriuretic Peptide 3336.4 H 03/27/22 16:50: Lactic Acid 1.7 03/27/22 16:50: Random Vancomycin 9.4 Micro: Microbiology 03/27/22 06:11 Nasal Secretion SARS-CoV-2 & FLU Antigen (Rapid) - Final Radiology Impression Chest X-Ray 03/27/22 05:45 IMPRESSION: Interval development of mild asymmetric patchy airspace disease in the right lower lung, suspicious for pneumonia. Electronically Signed: Mir Weems MD at 6:44 EST , Foot X-Ray 03/27/22 09:31 IMPRESSION: Stable osteopenia, osteoarthritic changes, calcaneal spur and resection of the phalanges of the fourth digit. Soft tissue swelling over the MTP joints. No bone erosion to suggest osteomyelitis. Electronically Signed: Jin Irizarry, at 14:47 EST , Foot X-Ray 03/27/22 09:37 IMPRESSION: Osteopenia with calcaneal spurs, osteoarthritic changes and postsurgical changes of resection of the phalanges of the first digit. Soft tissue swelling. No bone erosion. Electronically Signed: Jin Irizarry, at 14:45 EST , Chest X-Ray 03/27/22 15:05 IMPRESSION: Right IJ central catheter terminates over the mid right atrium. No finding of apical pneumothorax. Similar bilateral mid to lower lung infiltrates and small pleural effusions. Left IJ central catheter and single lead cardiac device remain. Electronically Signed: Miller Cutler MD at 16:34 EST , Assessment & Plan Assessment/Plan (1) Respiratory failure with hypoxia: PLAN: Plan 1. Acute hypoxic respiratory failure-secondary to probable fluid overload versus pneumonia-patient will be admitted to the ICU, he will be seen by pulmonary medicine, nephrology, infectious diseases, and podiatry will also see the patient due to his multiple medical problems. Patient was given Zosyn in the emergency room, I talked briefly with infectious diseases and they do not wish the patient to be placed back on vancomycin, Cipro, and Flagyl which she was on at the long-term. #2 fluid overload versus healthcare acquired pneumonia-patient will be maintained on Zosyn, I talked briefly with nephrology today, the plan is for the patient to be dialyzed today and also tomorrow. Patient was dialyzed yesterday at the dialysis center. #3 acute kidney injury currently undergoing scheduled dialysis-nephrology will be seeing the patient and participating in his care #4 severe peripheral vascular disease-podiatry will see the patient, it may be necessary for the patient to be seen by vascular surgery #5 Type 2 diabetes-patient is currently n.p.o. because he is on BiPAP, if we are able to transition the patient over to nasal cannula oxygen he may be placed on a diet #6 elevated troponin-I do not feel the patient has had a non-STEMI #7 chronic hypotension-patient is currently on midodrine, this will be increased per nephrology if necessary, I do not feel the patient needs to be put on vasopressors at this time #8 paroxysmal atrial fibrillation-patient is currently on Coumadin, his INR was 2.2, I will continue to hold his Coumadin for now as he is NPO. #9 ischemic cardiomyopathy-patient's last echocardiogram on 03/01/2022 showed an EF of 40%, after patient is off BiPAP, his medications will be reviewed Total time spent examining the patient, evaluating the patient, reviewing the labs, and talking to the patient's and consultants: 75 minutes Charges/Coding Visit Charges Inpatient E&M: 00067 Init Hosp L3
--- NOTE | 2022-03-27 19:25 | PCM.RX.CS ---
Consult Pharmacy has been consulted to manage selected antiobiotic: Vancomycin Type of Consult: New start Suspected Infection: Pneumonia Labs: Sodium 135 mmol/L (136-145) L 03/27/22 06:11 Potassium 3.9 mmol/L (3.5-5.1) 03/27/22 06:11 Chloride 97 mmol/L (98-107) L 03/27/22 06:11 Carbon Dioxide 31.0 mmol/L (21.0-32.0) 03/27/22 06:11 Anion Gap 7 (5-15) 03/27/22 06:11 BUN 39 mg/dL (7-18) H 03/27/22 06:11 Creatinine 3.15 mg/dL (0.70-1.30) H 03/27/22 06:11 Est GFR (MDRD) Af Amer 25 mL/min (>60) L 03/27/22 06:11 Est GFR (MDRD) Non-Af 21 mL/min (>60) L 03/27/22 06:11 BUN/Creatinine Ratio 12.4 RATIO (10-20) 03/27/22 06:11 Glucose 231 mg/dL (74-106) H 03/27/22 06:11 Random Vancomycin 9.4 ug/mL (0.0-15.0) 03/27/22 16:50 Microbiology: Microbiology 03/27/22 06:11 Nasal Secretion SARS-CoV-2 & FLU Antigen (Rapid) - Final Goal Trough: 15-20 mcg/mL Pharmacy Plan for Drug Dosing: NEW START IV VANCOMYCIN Consulting Physician: Dr. Arevalo Indication: Pneumonia/Foot Infection Goal Trough: 15-20 SrCr: 3.15 CrCl: pt on MWF HD Comments: pt was admitted from an ECF where he was currently on Vancomycin Vancomycin Dose: random level was drawn and resulted at 9.4. Pt to receive a x1 dose of 1000mg on 03/27/22. Random level prior to his next dialysis Pending Level: 03/28/22 at 0600 Pharmacy Service will continue to monitor and adjust dosing as required. Follow-Up Labs: Trough Vancomycin - 03/28/22 at 0600 (random level)
--- NOTE | 2022-03-27 21:00 | NURSING ---
Pt very anxious saying I'm going to ! I'm having a heart attack! I need something to knock me out! EKG obtained. Discussed issues with Dr. Lazaro. Cardiac enzyme series ordered, one-time 0.5mg PO ativan and melatonin ordered. Pt also given PRN tylenol. Pt also asking for garth cream for his bottom, ordered. Emotional support provided. Will continue current plan of care.
[2022-03-27] MEDS: LORazepam 0.5 MG Tablet PO (21:30)
[2022-03-27] MEDS: MELATONIN 3 MG TABLET PO (21:30)
[2022-03-27] MEDS: Acetaminophen 325 MG Tablet 650 MG PO (21:30)
[2022-03-27] MEDS: Atorvastatin Calcium 80 MG Tablet PO (21:30)
[2022-03-27] MEDS: Vancomycin IV 1,000 MG/200 ML BAG 200 MG IV (21:45)
[2022-03-27] MEDS: 0.9% Saline Lock 10 ML Syringe IV (21:45)
[2022-03-27 22:06] LABS: Troponin-I HS 325 pg/mL (3.0-78.0)
--- NOTE | 2022-03-27 22:40 | DIALYSIS ---
IUF completed at 2150, tolerated poorly, UF 1500mL, very anxious during tx, pre-tx BP 89/65 HR 109, HR varied more widely during tx (90s-130s), tachypnea, SBPs 80s-90s with MAPs >65, post BP 99/78 HR 102, accessed via left chest tunneled dialysis catheter, worked well, set of blood cultures drawn from each lumen pre-tx, HD planned for tomorrow
[2022-03-27] MEDS: Menthol/Lanolin/Calamine/Znox 113 GM Tube 1 APPLIC TOPICAL (23:07)
[2022-03-27] MEDS: Insulin Lispro 100 UNIT/ML INSULN.PEN SC (23:22)
--- NOTE | 2022-03-27 23:57 | NURSING ---
2330 RT placed bipap on pt. Pt was reluctant to wear bipap, but this RN explained the importance of wearing bipap especially while sleeping. 2345 Pt ripping bipap mask off, refusing to wear it. 2L NC placed back on pt.
[2022-03-28] VITALS (31 sets, daily range): BP systolic 74–110; BP diastolic 29–95; PULSE 90–123; RESP 12–29; TEMP 36.1–36.7; O2SAT 92–99
[2022-03-28 00:05] LABS: Bedside Glucose 174 mg/dL (74-106)
[2022-03-28 00:18] LABS: Troponin-I HS 272 pg/mL (3.0-78.0)
[2022-03-28] MEDS: Ipratropium/Albuterol Sulfate 3 ML AMPUL.NEB INHALATION ×4 (02:15→19:26)
[2022-03-28 03:30] LABS: Absolute Lymphocyte Count 0.18 X10^3/uL (0.83-4.51); Basophil# 0.03 X10^3/uL; Basophil% 0.2 % (0-1); Eosinophil# 0.16 X10^3/uL; Eosinophils% 0.9 % (0-5); Hematocrit 26.7 % (40-54); Hemoglobin 8.1 g/dL (13.0-16.5); Lymphocyte # 0.18 X10^3/ul (0.83-4.51); Mean Corp Hgb Conc 30.3 g/dL (32-36); Mean Corpuscular Hgb 30.6 pg (27.0-32.0); Mean Corpuscular Volume 100.8 fL (80-94); Mean Platelet Vol. 10.8 fl (6.2-12.0); Monocyte# 0.82 X10^3/uL; Monocyte% 4.5 % (0-10); NRBC Flagged by Analyzer 0.3 % (0-5); Neutrophil # 16.97 X10^3/uL (2.7-7.7); Neutrophil % 92.4 % (47-70); POSITIVE DIFFERENTIAL YES; POSITIVE MORPHOLOGY YES; Platelet Count 121 K/mm3 (150-450); RBC Distribution Width CV 18.9 % (11.6-14.6); RBC Distribution Width SD 70.1 fl (35.1-43.9); Red Blood Count 2.65 M/mm3 (4.6-6.2); White Blood Count 18.4 K/mm3 (4.4-11.0)
[2022-03-28 03:33] LABS: Differential Indicated SCAN CRITERIA MET
[2022-03-28 03:49] LABS: Troponin-I HS 250 pg/mL (3.0-78.0)
[2022-03-28 03:53] LABS: Vancomycin, Random Level 22.6 ug/mL (0.0-15.0)
[2022-03-28 03:54] LABS: Acanthocytes RARE; Anisocytosis 2+; Macrocytosis 1+; Platelet Estimate SLT DEC (ADEQ)
[2022-03-28 03:59] LABS: Anion Gap 9 (5-15); BUN 51 mg/dL (7-18); BUN/Creat Ratio 14.1 RATIO (10-20); Calcium,Total 8.2 mg/dL (8.5-10.1); Chloride 97 mmol/L (98-107); Creatinine, Serum 3.62 mg/dL (0.70-1.30); EST Glomerular Filtration Rate 17 mL/min (>60); Est Glom Filt Rate - Afr Amer 21 mL/min (>60); Estimated Creatinine Clearance 14.87 ml/min; Glucose 201 mg/dL (74-106); Potassium 3.9 mmol/L (3.5-5.1); Sodium Level 134 mmol/L (136-145)
--- NOTE | 2022-03-28 05:00 | PCM.RX.CS ---
Consult Pharmacy has been consulted to manage selected antiobiotic: Vancomycin Type of Consult: Follow-up Suspected Infection: Skin/Soft tissue, Pneumonia Prior Doses of Antibiotics Received/Current Regimen: Medications Discontinued Medications Vancomycin HCl (Vancomycin) 1,000 mg in 200 mls @ 200 mls/hr IV X1 ONE Stop: 03/27/22 19:59 Last Admin: 03/27/22 22:45 Dose: Infused Labs: Sodium 134 mmol/L (136-145) L 03/28/22 03:10 Potassium 3.9 mmol/L (3.5-5.1) 03/28/22 03:10 Chloride 97 mmol/L (98-107) L 03/28/22 03:10 Carbon Dioxide 28.0 mmol/L (21.0-32.0) 03/28/22 03:10 Anion Gap 9 (5-15) 03/28/22 03:10 BUN 51 mg/dL (7-18) H 03/28/22 03:10 Creatinine 3.62 mg/dL (0.70-1.30) H 03/28/22 03:10 Est GFR (MDRD) Af Amer 21 mL/min (>60) L 03/28/22 03:10 Est GFR (MDRD) Non-Af 17 mL/min (>60) L 03/28/22 03:10 BUN/Creatinine Ratio 14.1 RATIO (10-20) 03/28/22 03:10 Glucose 201 mg/dL (74-106) H 03/28/22 03:10 Random Vancomycin 22.6 ug/mL (0.0-15.0) H 03/28/22 03:10 Microbiology: Microbiology 03/27/22 06:11 Nasal Secretion SARS-CoV-2 & FLU Antigen (Rapid) - Final Weight used for dosin.9 kg Estimated Creatinine Clearance: 14.9 Goal Trough: 15-20 mcg/mL Pharmacy Plan for Drug Dosing: A vancomycin level was drawn prior to the scheduled Saturday HD. The level was 22.6. It was just 5?hrs post-dose, but with the increase in Scr (3.15 to 3.62) we will hold the post-dialysis vanco dose. Another random level will be drawn Saturday03/30/22 to determine further dosing. Pharmacy Service will continue to monitor and adjust dosing as required. Follow-Up Labs: Trough Vancomycin - random Labs to be done on [date and time ordered]: 03/30/22 @0600
[2022-03-28] MEDS: Insulin Lispro 100 UNIT/ML INSULN.PEN SC (06:21)
[2022-03-28 07:06] LABS: Bedside Glucose 181 mg/dL (74-106)
--- NOTE | 2022-03-28 07:23 | PCM.PN.INT ---
Assessment & Plan Assessment/Plan (1) Respiratory failure: PLAN: Plan RECOMMENDATIONS: 1. Continue to wean supplemental oxygen for saturations greater than 90%. 2. Fluid removal per nephrology. Continue scheduled midodrine as ordered. 3. Antimicrobials per ID recommendations. 4. Encourage incentive spirometer use and mobilize patient as tolerated. 5. Management of his peripheral vascular disease per vascular surgery. 6. The patient is medically stable for transfer out of the intensive care unit. IMPRESSIONS: 1. Respiratory failure with hypoxemia Resolved. I do suspect that the patient's acute respiratory decompensation is likely secondary to an acute CHF exacerbation as opposed to an occult infectious process. The patient's respiratory status has improved with further volume optimization via hemodialysis. The patient will be continued on scheduled midodrine with ongoing hemodialysis support per nephrology recommendations. Continue to wean supplemental oxygen as tolerated. The patient reported that he has a baseline 2 L/min oxygen requirement. Continue to encourage incentive spirometer use and mobilize patient as tolerated. 2. History of ischemic cardiomyopathy/paroxysmal atrial fibrillation/anemia/diabetes mellitus/GERD/RITESH Complicates care, management, recovery and prognosis. Continue home medications as indicated. This note was generated with [employer] dictation software. It may contain incorrect words, spelling, and punctuation that were not noted in checking the note before signing. Subjective Subjective The patient was seen and examined at the bedside this morning. Events from the last 24 hours have been reviewed. The patient is currently afebrile, hemodynamically stable and maintaining appropriate oxygen saturations on 2 L/min via nasal cannula. The patient does report that he was utilizing supplemental oxygen at 2 L/min at the [facility] facility. The patient refused BiPAP overnight. He did tolerate dialysis yesterday with 1.5 L of fluid removed. He is resting comfortably this morning without any specific complaints. White count is elevated at 18,000. Hemoglobin is stable at 8.1 g/dL. There are tentative plans for the patient to undergo an angiogram on per vascular surgery. Objective Data Objective Data The patient's most recent lab work, culture data and imaging studies have all been personally reviewed. Blood cultures are currently pending. Vital Signs: Vital Signs Temp Pulse Resp BP Pulse Ox O2 Del Method O2 Flow Rate 97.7 F L 97 17 105/84 H 94 Nasal Cannula 2 03/28/22 06:00 03/28/22 06:51 03/28/22 06:51 03/28/22 06:00 03/28/22 06:51 03/28/22 06:51 03/28/22 06:51 FiO2 40 03/27/22 23:31 Oxygen Flow Rate (L/min) 2 Oxygen Delivery Method Nasal Cannula Weight: 160 lb 14.999 oz Body Mass Index (BMI) 27.1 Intake & Output: Intake and Output for Last 24 Hours 03/26/22 03/27/22 03/28/22 23:59 23:59 23:59 Intake Total 800 / 800 50 / 50 Output Total 1500 / 1500 0 / 0 Balance -700 / -700 50 / 50 Lab / Micro Data Attestation: I reviewed the patient's lab results. Result Diagrams: 03/28/22 03:10 03/28/22 03:10 Labs: Laboratory Results - last 24 hr 03/27/22 06:18: WBC 18.6 H, RBC 2.77 L, Hgb 8.2 L, Hct 28.2 L, MCV 101.8 H, MCH 29.6, MCHC 29.1 L, RDW Std Deviation 71.0 H, RDW Coeff of Nguyen 19.0 H, Plt Count 154, MPV 10.7, Immature Gran % (Auto) 1.000 H, Neut % (Auto) 91.8 H, Lymph % (Auto) 1.6 L, [place] % (Auto) 5.4, Eos % (Auto) 0.1, Baso % (Auto) 0.1, Absolute Neuts (auto) 17.1 H, Absolute Lymphs (auto) 0.30 L, Nucleated RBC % 0, Hypochromasia 1+, Anisocytosis 2+, Macrocytosis 2+, [place] Cells 1+, Acanthocytes (Spur) 1+ 03/27/22 06:18: B-Natriuretic Peptide 3336.4 H 03/27/22 16:50: Lactic Acid 1.7 03/27/22 16:50: Random Vancomycin 9.4 03/27/22 21:30: Troponin I High Sens 325 H* 03/27/22 23:18: POC Glucose 174 H 03/27/22 23:45: Troponin I High Sens 272 H* 03/28/22 03:10: WBC 18.4 H, RBC 2.65 L, Hgb 8.1 L, Hct 26.7 L, MCV 100.8 H, MCH 30.6, MCHC 30.3 L, RDW Std Deviation 70.1 H, RDW Coeff of Nguyen 18.9 H, Plt Count 121 L, MPV 10.8, Immature Gran % (Auto) 1.000 H, Neut % (Auto) 92.4 H, Lymph % (Auto) 1.0 L, [place] % (Auto) 4.5, Eos % (Auto) 0.9, Baso % (Auto) 0.2, Absolute Neuts (auto) 17.0 H, Absolute Lymphs (auto) 0.18 L, Nucleated RBC % 0.3, Platelet Estimate SLT DEC, Anisocytosis 2+, Macrocytosis 1+, Acanthocytes (Spur) RARE 03/28/22 03:10: Sodium 134 L, Potassium 3.9, Chloride 97 L, Carbon Dioxide 28.0, Anion Gap 9, BUN 51 H, Creatinine 3.62 H, Estim Creat Clear Calc 14.87, Est GFR (MDRD) Af Amer 21 L, Est GFR (MDRD) Non-Af 17 L, BUN/Creatinine Ratio 14.1, Glucose 201 H, Calcium 8.2 L 03/28/22 03:10: Random Vancomycin 22.6 H 03/28/22 03:10: Troponin I High Sens 250 H* 03/28/22 06:20: POC Glucose 181 H Micro: Microbiology 03/27/22 06:11 Nasal Secretion SARS-CoV-2 & FLU Antigen (Rapid) - Final Radiography Diagnostic Testing: Radiology Impression Foot X-Ray 03/27/22 09:31 IMPRESSION: Stable osteopenia, osteoarthritic changes, calcaneal spur and resection of the phalanges of the fourth digit. Soft tissue swelling over the MTP joints. No bone erosion to suggest osteomyelitis. Electronically Signed: Jin Irizarry, at 14:47 EST , Foot X-Ray 03/27/22 09:37 IMPRESSION: Osteopenia with calcaneal spurs, osteoarthritic changes and postsurgical changes of resection of the phalanges of the first digit. Soft tissue swelling. No bone erosion. Electronically Signed: Jin Irizarry, at 14:45 EST , Chest X-Ray 03/27/22 15:05 IMPRESSION: Right IJ central catheter terminates over the mid right atrium. No finding of apical pneumothorax. Similar bilateral mid to lower lung infiltrates and small pleural effusions. Left IJ central catheter and single lead cardiac device remain. Electronically Signed: Miller Cutler MD at 16:34 EST , Physical Exam Const alert, oriented x3 and no apparent distress General Appearance: cooperative HEENT normocephalic and head/scalp atraumatic Eyes PERRL, EOMs intact bilaterally and conjunctivae normal Neck supple General: trachea midline Chest Chest Narrative: Tunneled dialysis catheter in place Resp normal respiratory effort Auscultation: Negative for rales, rhonchi or wheezes Cardio S1 normal heart sound and S2 normal heart sound Rate: tachycardic Rhythm: abnormal rhythm GI normal to inspection, nondistended, normoactive bowel sounds Extremity General Extremity: edema; Negative for clubbing Skin Skin Narrative: Wrapped lower extremities. Neuro CN's II-XII intact bilaterally and no focal motor deficits Psych cooperative Charges/Coding Visit Charges Inpatient E&M: 07666 Subs Hosp L3
--- NOTE | 2022-03-28 07:38 | CASEMGMT ---
KALEB SIMPSON Readmission Note: Index: 03/01 thru 03/24 with septic shock from infected wounds on feet/LE, DAVIS, GI bleed d/t oozing gastric ulcers with noted esophageal varices on EGD, Fem-pop bypass performed, and new HD set-up. Readmission: 03/27/22 with acute hypoxic respiratory failure secondary to fluid overload vs pneumonia Pt treated on index for septic shock secondary to infected ulcers on bilat feet and lower extremities. Treatment included fem-pop bypass and wound care. Pt also with DAVIS requiring new HD set-up with [facility] with chair time of MWF at 1220. Pt also with GI bleed with EGD performed and oozing gastric ulcers noted and treated and esophageal varices also noted. Pt was discharged to [facility] for continued rehabilitation. Pt appealed discharged to [facility] on index with DC decision upheld after review. Pt also noted to have anxiety but declined medication treatment. Pt returned with hypotension and hypoxia requiring bipap in the ED but has since been transitioned to O2 at 2l/min. Pt was noted on index to wear O2 for comfort. Will continue to monitor for additional needs. Josesito Bolanos RN CM
[2022-03-28 08:35] LABS: Bedside Glucose 176 mg/dL (74-106)
[2022-03-28] MEDS: Midodrine HCl 5 MG Tablet 20 MG PO ×3 (08:54→16:55)
--- NOTE | 2022-03-28 10:28 | PN.HOSP_ITS ---
Subjective Subjective Was seen and examined today, I reviewed the note from vascular surgery and talked with vascular surgery yesterday concerning the patient, vascular surgery is going to try to do an intervention on the patient's right leg tomorrow. Patient will be dialyzed again today, his oxygen requirement is at 2 L presently, his blood pressure is 104/84 this morning, patient is alert but mildly confused. Objective Data Objective Data Vital Signs: Vital Signs Temp Pulse Resp BP Pulse Ox O2 Del Method O2 Flow Rate 98.1 F 109 H 19 H 104/84 H 95 Nasal Cannula 2 03/28/22 08:00 03/28/22 10:00 03/28/22 10:00 03/28/22 10:00 03/28/22 10:00 03/28/22 10:00 03/28/22 10:00 FiO2 40 03/27/22 23:31 Oxygen Flow Rate (L/min) 2 Oxygen Delivery Method Nasal Cannula Weight: 73 kg Body Mass Index (BMI) 27.1 Intake & Output: Intake and Output for Last 24 Hours 03/26/22 03/27/22 03/28/22 23:59 23:59 23:59 Intake Total 800 / 800 170 / 170 Output Total 1500 / 1500 0 / 0 Balance -700 / -700 170 / 170 Lab / Micro Data Result Diagrams: 03/28/22 03:10 03/28/22 03:10 Labs: Laboratory Results - last 24 hr 03/27/22 16:50: Lactic Acid 1.7 03/27/22 16:50: Random Vancomycin 9.4 03/27/22 21:30: Troponin I High Sens 325 H* 03/27/22 23:18: POC Glucose 174 H 03/27/22 23:45: Troponin I High Sens 272 H* 03/28/22 03:10: WBC 18.4 H, RBC 2.65 L, Hgb 8.1 L, Hct 26.7 L, MCV 100.8 H, MCH 30.6, MCHC 30.3 L, RDW Std Deviation 70.1 H, RDW Coeff of Nguyen 18.9 H, Plt Count 121 L, MPV 10.8, Immature Gran % (Auto) 1.000 H, Neut % (Auto) 92.4 H, Lymph % (Auto) 1.0 L, [place] % (Auto) 4.5, Eos % (Auto) 0.9, Baso % (Auto) 0.2, Absolute Neuts (auto) 17.0 H, Absolute Lymphs (auto) 0.18 L, Nucleated RBC % 0.3, Platelet Estimate SLT DEC, Anisocytosis 2+, Macrocytosis 1+, Acanthocytes (Spur) RARE 03/28/22 03:10: Sodium 134 L, Potassium 3.9, Chloride 97 L, Carbon Dioxide 28.0, Anion Gap 9, BUN 51 H, Creatinine 3.62 H, Estim Creat Clear Calc 14.87, Est GFR (MDRD) Af Amer 21 L, Est GFR (MDRD) Non-Af 17 L, BUN/Creatinine Ratio 14.1, Glucose 201 H, Calcium 8.2 L 03/28/22 03:10: Random Vancomycin 22.6 H 03/28/22 03:10: Troponin I High Sens 250 H* 03/28/22 06:20: POC Glucose 181 H 03/28/22 08:13: POC Glucose 176 H Micro: Microbiology 03/27/22 06:11 Nasal Secretion SARS-CoV-2 & FLU Antigen (Rapid) - Final Radiography Diagnostic Testing: Radiology Impression Foot X-Ray 03/27/22 09:31 IMPRESSION: Stable osteopenia, osteoarthritic changes, calcaneal spur and resection of the phalanges of the fourth digit. Soft tissue swelling over the MTP joints. No bone erosion to suggest osteomyelitis. Electronically Signed: Jin Irizarry, at 14:47 EST , Foot X-Ray 03/27/22 09:37 IMPRESSION: Osteopenia with calcaneal spurs, osteoarthritic changes and postsurgical changes of resection of the phalanges of the first digit. Soft tissue swelling. No bone erosion. Electronically Signed: Jin Irizarry, at 14:45 EST , Chest X-Ray 03/27/22 15:05 IMPRESSION: Right IJ central catheter terminates over the mid right atrium. No finding of apical pneumothorax. Similar bilateral mid to lower lung infiltrates and small pleural effusions. Left IJ central catheter and single lead cardiac device remain. Electronically Signed: Miller Cutler MD at 16:34 EST , Physical Exam Narrative alert, patient exhibits mild confusion Constitutional Narrative: Patient appears older than his stated age, he does not appear in any distress at this time HEENT normocephalic, head/scalp atraumatic and hearing grossly normal bilaterally Eyes PERRL, EOMs intact bilaterally and conjunctivae normal Neck supple and no JVD Resp no retractions Resp Narrative: There are decreased breath sounds bilaterally over the lower half of the lung suarez, there are scattered inspiratory rales noted at the lung bases.? Respirations were rapid and somewhat shallow. Cardio regular rate, regular rhythm, S1 normal heart sound, S2 normal heart sound and n o rub GI normal to inspection, nondistended, normoactive bowel sounds, soft to palpation and non-tender Extremity Extremity Narrative: Both lower legs were wrapped with surgical dressing, these were not removed for examination of the patient's leg wounds Neuro oriented x3, CN's II-XII intact bilaterally and moves all extremities Sensorium / Orientation: awake, alert, oriented to person and oriented to place Speech: speech normal Psych Patient exhibits mild confusion, he is oriented as to person and place Const alert and oriented x3 Constitutional Narrative: Patient is currently on BiPAP, he does not appear to be dyspneic on BiPAP at this time, patient appears to be older than his stated age HEENT normocephalic, head/scalp atraumatic and hearing grossly normal bilaterally Eyes PERRL, EOMs intact bilaterally and conjunctivae normal Neck supple and no JVD Resp no retractions Resp Narrative: There are decreased breath sounds bilaterally over the lower half of the lung suarez, there are scattered inspiratory rales noted at the lung bases. Respirations were rapid and somewhat shallow. Cardio regular rate, regular rhythm, S1 normal heart sound, S2 normal heart sound and no rub GI normal to inspection, nondistended, normoactive bowel sounds, soft to palpation and non-tender Extremity Extremity Narrative: Both lower legs were wrapped with surgical dressing, these were not removed for examination of the patient's leg wounds Neuro oriented x3, CN's II-XII intact bilaterally and moves all extremities Sensorium / Orientation: awake, alert, oriented to person and oriented to place Speech: speech normal Psych affect normal Assessment & Plan Assessment/Plan (1) Respiratory failure with hypoxia: PLAN: Plan 1. Acute hypoxic respiratory failure-secondary to probable fluid overload versus pneumonia-continue IV antibiotic treatment, pulmonary medicine is participating in his care, he will be dialyzed today. #2 fluid overload versus healthcare acquired pneumonia-patient will be maintained on Zosyn, antibiotics will be adjusted per infectious diseases, patient will have dialysis today #3 acute kidney injury currently undergoing scheduled dialysis-nephrology will be seeing the patient and participating in his care, he is undergoing dialysis today #4 severe peripheral vascular disease-podiatry and vascular surgery are seeing the patient #5 Type 2 diabetes-patient is on sliding scale insulin at this time per fingerstick blood sugars #6 elevated troponin-I do not feel the patient has had a non-STEMI #7 chronic hypotension-this has improved at this time, patient's systolic blood pressure is over 100 #8 paroxysmal atrial fibrillation-patient's Coumadin is being held due to possible vascular intervention on , vascular surgery stated that he could be remain on Plavix #9 ischemic cardiomyopathy-patient's last echocardiogram on 03/01/2022 showed an EF of 40%, he will remain on his present medications Total time spent examining the patient, evaluating the patient, reviewing the labs, and talking to the patient's and consultants: 25 minutes Charges/Coding Visit Charges Inpatient E&M: 13888 Subs Hosp L2
--- NOTE | 2022-03-28 11:17 | DIALYSIS ---
Hemodialysis today. UF -2000mL removed. Pt stable and tolerated tx. Catheter closed capped and clamped. Report to KALEB Almendarez
[2022-03-28] MEDS: Menthol/Lanolin/Calamine/Znox 113 GM Tube 1 APPLIC TOPICAL ×2 (11:26→20:55)
--- NOTE | 2022-03-28 11:26 | PCM.PN.REN ---
Subjective Subjective Seen and examined on dialysis. Tolerating treatment. No complaints. Objective Data Objective Data Vital Signs: Vital Signs Temp Pulse Resp BP Pulse Ox O2 Del Method O2 Flow Rate 98.1 F 109 H 19 H 104/84 H 95 Nasal Cannula 2 03/28/22 08:00 03/28/22 10:00 03/28/22 10:00 03/28/22 10:00 03/28/22 10:00 03/28/22 10:00 03/28/22 10:00 FiO2 40 03/27/22 23:31 Oxygen Flow Rate (L/min) 2 Oxygen Delivery Method Nasal Cannula Weight: 73 kg Body Mass Index (BMI) 27.1 Intake & Output: Intake and Output for Last 24 Hours 03/26/22 03/27/22 03/28/22 23:59 23:59 23:59 Intake Total 800 / 800 170 / 170 Output Total 1500 / 1500 0 / 0 Balance -700 / -700 170 / 170 Lab / Micro Data Result Diagrams: 03/28/22 03:10 03/28/22 03:10 Labs: Laboratory Results - last 24 hr 03/27/22 16:50: Lactic Acid 1.7 03/27/22 16:50: Random Vancomycin 9.4 03/27/22 21:30: Troponin I High Sens 325 H* 03/27/22 23:18: POC Glucose 174 H 03/27/22 23:45: Troponin I High Sens 272 H* 03/28/22 03:10: WBC 18.4 H, RBC 2.65 L, Hgb 8.1 L, Hct 26.7 L, MCV 100.8 H, MCH 30.6, MCHC 30.3 L, RDW Std Deviation 70.1 H, RDW Coeff of Nguyen 18.9 H, Plt Count 121 L, MPV 10.8, Immature Gran % (Auto) 1.000 H, Neut % (Auto) 92.4 H, Lymph % (Auto) 1.0 L, [place] % (Auto) 4.5, Eos % (Auto) 0.9, Baso % (Auto) 0.2, Absolute Neuts (auto) 17.0 H, Absolute Lymphs (auto) 0.18 L, Nucleated RBC % 0.3, Platelet Estimate SLT DEC, Anisocytosis 2+, Macrocytosis 1+, Acanthocytes (Spur) RARE 03/28/22 03:10: Sodium 134 L, Potassium 3.9, Chloride 97 L, Carbon Dioxide 28.0, Anion Gap 9, BUN 51 H, Creatinine 3.62 H, Estim Creat Clear Calc 14.87, Est GFR (MDRD) Af Amer 21 L, Est GFR (MDRD) Non-Af 17 L, BUN/Creatinine Ratio 14.1, Glucose 201 H, Calcium 8.2 L 03/28/22 03:10: Random Vancomycin 22.6 H 03/28/22 03:10: Troponin I High Sens 250 H* 03/28/22 06:20: POC Glucose 181 H 03/28/22 08:13: POC Glucose 176 H Micro: Microbiology 03/27/22 06:11 Nasal Secretion SARS-CoV-2 & FLU Antigen (Rapid) - Final Radiography Diagnostic Testing: Radiology Impression Foot X-Ray 03/27/22 09:31 IMPRESSION: Stable osteopenia, osteoarthritic changes, calcaneal spur and resection of the phalanges of the fourth digit. Soft tissue swelling over the MTP joints. No bone erosion to suggest osteomyelitis. Electronically Signed: Jin Irizarry, at 14:47 EST , Foot X-Ray 03/27/22 09:37 IMPRESSION: Osteopenia with calcaneal spurs, osteoarthritic changes and postsurgical changes of resection of the phalanges of the first digit. Soft tissue swelling. No bone erosion. Electronically Signed: Jin Irizarry, at 14:45 EST , Chest X-Ray 03/27/22 15:05 IMPRESSION: Right IJ central catheter terminates over the mid right atrium. No finding of apical pneumothorax. Similar bilateral mid to lower lung infiltrates and small pleural effusions. Left IJ central catheter and single lead cardiac device remain. Electronically Signed: Miller Cutler MD at 16:34 EST , Physical Exam Narrative Alert and oriented x3, no apparent distress Lung sounds with scattered rhonchi S1, S2, rhythm irregular, rate controlled Abdomen soft, nontender positive bowel sounds Bilateral lower feet with dressings clean, dry and intact. No significant pitting edema noted bilateral lower legs. Edema noted bilateral arms Tunneled HD catheter dressing clean, dry and intact Assessment & Plan Assessment/Plan (1) Respiratory failure: (2) DAVIS (acute kidney injury): (3) Hypotension: (4) Pneumonia: (5) Ischemic cardiomyopathy: (6) Anemia in chronic illness: PLAN: Plan - Dialysis requiring DAVIS secondary to ischemic ATN from circulatory shock/sepsis, he was started on dialysis 03/02/2022, at that time his serum creatinine was 9.52 mg/dL. Baseline serum creatinine is around 1.5 mg/dL as of December 2021. Patient essentially anuric. There has been no noted recovery in renal function at this time. Patient's outpatient dialysis schedule is Saturday at [facility] [place]. Patient tolerated sequential treatment yesterday with around 1.5 L fluid removed. HD today over 3.5 hours and tolerated 2 L fluid removal. EDW has not been established yet. - midodrine to 20 mg 3 times daily. - history of ischemic cardiomyopathy with last known EF 35%. - history of anemia of chronic disease, we will monitor hemoglobin trends. No need for PRBC at this time. - Pneumonia/leukocytosis; peripheral blood cultures are pending. We obtained blood cultures from tunneled HD catheter 03/27 to rule out catheter related infection. ID consulted for antibiotics, he is currently on Zosyn. - PVD: right foot cyanotic and planning for angiogram later this week
[2022-03-28] MEDS: Pantoprazole Sodium 40 MG Tablet PO (11:28)
[2022-03-28] MEDS: Clopidogrel Bisulfate 75 MG Tablet PO (11:28)
[2022-03-28 12:01] LABS: Bedside Glucose 121 mg/dL (74-106)
--- NOTE | 2022-03-28 14:09 | NURSING ---
1140: attempting to give patient medications. at the bedside. Patient stated he does not want to take any medications. He stated I just want to be left alone and to . Patient was asked if he wanted to stop treatment and be allowed to pass away to which he replied yes. Patient was asked if he knew that not taking his medications will result in him passing and he stated I know and I am tired of fighting. Please let me . at bedside and tearful. Much emotional support given. 1205: Dr. Baig to the bedside to talk about comfort care and patient's wishes. Patient drowsy and now confused. at the bedside. Dr. Baig stated he will come back in the afternoon to see if he is more alert.
[2022-03-28] MEDS: HYDROmorphone 0.5 MG/0.5 ML SYRINGE IV (14:40)
--- NOTE | 2022-03-28 15:58 | NURSING ---
1445: Patient alert to person only at this time. Patient yelling Help me! I want to . Please just let me ! left the bedside approximately [address] minutes [address] to [address] Baig and updated on patient condition and that the is no longer at the bedside. Dr. Baig stated he is unable to discuss code status with the patient at this time due to mentation and that he will try to talk to the when she returns. 1550: Dr. Santo on the floor and updated. He stated that the patient is tenatively on the schedule tomorrow at 10am for angiogram of RLE and he will speak to the prior to the procedure.
--- NOTE | 2022-03-28 16:40 | NURSING ---
at the bedside and stated that she wishes to continue with the planned angiogram tomorrow and to leave the patient a full code at this time. Dr. Bach and Dr. Santo notified
[2022-03-28 17:45] LABS: Bedside Glucose 126 mg/dL (74-106)
[2022-03-28] MEDS: 0.9% Saline Lock 10 ML Syringe IV (20:08)
[2022-03-28] MEDS: LORazepam 2 MG/ML Syringe 1 MG IV (20:08)
[2022-03-28 21:20] LABS: Bedside Glucose 134 mg/dL (74-106)
[2022-03-29] VITALS (12 sets, daily range): BP systolic 80–93; BP diastolic 52–69; PULSE 0–104; RESP 14–20; TEMP 36–36.6; O2SAT 95–97
--- NOTE | 2022-03-29 01:14 | PCM.HOSP.N ---
Hospitalist Note Patient per discussion with staff has remained stable over the course of today, on 2L NC, which he uses at facility, will transition to PCU status.
[2022-03-29] MEDS: Ipratropium/Albuterol Sulfate 3 ML AMPUL.NEB INHALATION (02:04)
[2022-03-29 04:10] LABS: Absolute Lymphocyte Count 0.22 X10^3/uL (0.83-4.51); Absolute Neutrophil Count 19.2 X10^3/uL (2.0-7.7); Basophil# 0.02 X10^3/uL; Basophil% 0.1 % (0-1); Eosinophil# 0.01 X10^3/uL; Hematocrit 27.6 % (40-54); Hemoglobin 8.3 g/dL (13.0-16.5); Lymphocyte # 0.22 X10^3/ul (0.83-4.51); Lymphocyte % 1.1 % (19-41); Mean Corp Hgb Conc 30.1 g/dL (32-36); Mean Corpuscular Hgb 30.6 pg (27.0-32.0); Mean Corpuscular Volume 101.8 fL (80-94); Mean Platelet Vol. 11.3 fl (6.2-12.0); Monocyte# 0.97 X10^3/uL; Monocyte% 4.7 % (0-10); NRBC Flagged by Analyzer 0.2 % (0-5); Neutrophil # 19.24 X10^3/uL (2.7-7.7); Neutrophil % 92.8 % (47-70); POSITIVE DIFFERENTIAL YES; POSITIVE MORPHOLOGY YES; Platelet Count 130 K/mm3 (150-450); RBC Distribution Width CV 18.6 % (11.6-14.6); RBC Distribution Width SD 69.7 fl (35.1-43.9); Red Blood Count 2.71 M/mm3 (4.6-6.2); White Blood Count 20.7 K/mm3 (4.4-11.0)
[2022-03-29 04:12] LABS: Differential Indicated SCAN CRITERIA MET
[2022-03-29 04:19] LABS: ALB/GLOB Ratio 0.5 RATIO (0.9-2.4); AST(SGOT) 160 U/L (15-37); Alanine Aminotransfer ALT/SGPT 41 U/L (16-61); Alkaline Phosphatase 98 U/L (45-117); Anion Gap 10 (5-15); BUN 32 mg/dL (7-18); BUN/Creat Ratio 11.5 RATIO (10-20); Calcium,Total 8.2 mg/dL (8.5-10.1); Chloride 99 mmol/L (98-107); Creatinine, Serum 2.78 mg/dL (0.70-1.30); EST Glomerular Filtration Rate 24 mL/min (>60); Est Glom Filt Rate - Afr Amer 29 mL/min (>60); Estimated Creatinine Clearance 19.36 ml/min; Globulin 4.1 g/dL (2.2-4.2); Glucose 160 mg/dL (74-106); Magnesium 2.1 mg/dL (1.6-2.6); Phosphorus 5.7 mg/dL (2.5-4.9); Potassium 4.5 mmol/L (3.5-5.1); Protein, Total 6.1 g/dL (6.4-8.2); Sodium Level 135 mmol/L (136-145)
[2022-03-29 04:36] LABS: Acanthocytes RARE; Anisocytosis 2+; Burr Cells RARE; Macrocytosis 2+; Platelet Estimate SLT DEC (ADEQ)
--- NOTE | 2022-03-29 04:51 | CPS ---
bipap pressures increased to 16/8 to increase pt tidal volumes.
--- NOTE | 2022-03-29 07:03 | PCM.CODE.SUM ---
Code Blue Report Code Blue Summary Code Blue Summary: At 0620, a CODE BLUE was called on this patient after he became bradycardic and pulses were subsequently lost. ACLS was initiated. Throughout the entire duration of the code, the patient was noted to be in PEA, with a total of 8 rounds of epinephrine administered along with 2 amps of bicarb. The patient was also emergently intubated during the CODE BLUE, with rajesh blood noted from his endotracheal tube. The patient was able to be oxygenated well throughout the entire duration of the code. However, return of spontaneous circulation was never achieved. Despite the aforementioned interventions, the patient remained pulseless. At 0642, the code was terminated and the patient was declared . Procedures Hospitalists Procedures: 17155 Critial Care 1st Hr Procedures Pulmonary 9xxxx: 45704 Insert emergency airway
--- NOTE | 2022-03-29 08:29 | NURSING ---
0615 silvano with pulse on monitor, patient lethargic, bipap intact, HEMATOLOGY TECHNICIAN called
--- NOTE | 2022-03-29 08:29 | NURSING ---
0620 no pulse Code blue called.
--- NOTE | 2022-04-01 12:54 | EXP.PCM_ITS ---
Preliminary Cause of Preliminary Cause of Preliminary Cause of : Acute myocardial infaction with pulseless electrical activity Date of Admission: 03/27/22 Date of : 03/29/22 Principle Diagnosis 1. Acute hypoxic respiratory failure #2 bilateral healthcare acquired pneumonia #3 fluid overload secondary to acute kidney injury #4 acute kidney injury #5 severe peripheral vascular disease #6 type 2 diabetes #7 paroxysmal atrial fibrillation #8 ischemic cardiomyopathy #9 chronic hypotension #10 acute myocardial infarction with PEA resulting in cardiac arrest and Problem List: Active and Suspected Problems (Updated 04/01/22 @ 00:02 by Background Kirsty) Respiratory failure with hypoxia (Acute) Gangrene of right foot (Acute) Gangrene of left foot (Acute) Peripheral vascular disease, unspecified (Acute) Pneumonia (Acute) Respiratory failure (Acute) Hypotension (Acute) Hospital Course This 77-year-old white male was transported from a local extended care facility at which he was living undergoing skilled care due to increased shortness of breath and low blood pressure. Evaluation in the emergency room clued a chest x-ray which showed bilateral infiltrates, patient had to be transition to BiPAP in the emergency room to maintain a pulse ox above 90%, elevated white count was noted on the patient's lab work, patient's troponin was elevated at 231, beta natruretic peptide was elevated at 3336. Patient was admitted to ICU for bilateral pneumonia and hypoxic respiratory failure, he was seen in consultation by critical care and nephrology, he was also seen in consultation due to severe peripheral vascular disease by podiatry, infectious diseases, and vascular surgery. Patient initially responded to dialysis with less oxygen demand, he was set up to have a procedure on his right leg to improve the arterial flow by vascular surgery on 03/29/2022. In the biological aide hours of 03/29/2022, patient had an episode of bradycardia which was accompanied by PEA and a CODE BLUE was started, patient did not respond to resuscitation efforts and ultimately at 6:42 AM on 03/29/2022.
== END 2022-03-29 10:05 | DRG 682 ==
LOC: ED 07:02 → ICU 14:15
PROVIDERS: Family Medicine; Internal Medicine Infectious Disease; Admitting Provider Internal Medicine; Emergency Provider Emergency Medicine; PCP Family Medicine; Visit Provider Internal Medicine
DX: N17.9 Acute kidney failure, unspecified (principal); J96.01 Acute respiratory failure with hypoxia; I21.9 Acute myocardial infarction, unspecified; J18.9 Pneumonia, unspecified organism; I70.263 Atherosclerosis of native arteries of extremities with gangrene, bilateral legs; I13.2 Hypertensive heart and chronic kidney disease with heart failure and with stage 5 chronic kidney disease, or end stage renal disease; E11.52 Type 2 diabetes mellitus with diabetic peripheral angiopathy with gangrene; I50.22 Chronic systolic (congestive) heart failure; D63.1 Anemia in chronic kidney disease; N18.6 End stage renal disease; E11.621 Type 2 diabetes mellitus with foot ulcer; L97.512 Non-pressure chronic ulcer of other part of right foot with fat layer exposed; L97.522 Non-pressure chronic ulcer of other part of left foot with fat layer exposed; Z79.4 Long term (current) use of insulin; I48.0 Paroxysmal atrial fibrillation; Z99.2 Dependence on renal dialysis; I46.2 Cardiac arrest due to underlying cardiac condition; E11.22 Type 2 diabetes mellitus with diabetic chronic kidney disease; I95.89 Other hypotension; I25.10 Atherosclerotic heart disease of native coronary artery without angina pectoris; E78.5 Hyperlipidemia, unspecified; I25.5 Ischemic cardiomyopathy; K21.9 Gastro-esophageal reflux disease without esophagitis; G47.33 Obstructive sleep apnea (adult) (pediatric); I25.2 Old myocardial infarction; Z95.1 Presence of aortocoronary bypass graft; Z95.5 Presence of coronary angioplasty implant and graft; Z95.810 Presence of automatic (implantable) cardiac defibrillator; Z79.2 Long term (current) use of antibiotics; Z79.01 Long term (current) use of 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s; Z79.02 Long term (current) use of antithrombotics/antiplatelets; Z79.899 Other long term (current) drug therapy
CPT/HCPCS: 31500; 71045; 73630; 80048; 80053; 80076; 80202; 82962; 83605; 83735; 83880; 84100; 84484; 85025; 85610; 87040; 87428; 90937; 92610; 92950; 93005; 94002; 94003; 94640; 94660; 94762; 97802; 99251; 99285; J7040; A4216; G0257; G0463